=== PATIENT | female | born 1950 | race Caucasian/White ===

== ENCOUNTER 2016-10-03 11:23 | Emergency (ER) | payer MEDICAID, MEDICARE ==
[~2016-10-03 11:23] MED LIST: /ADVA50050; /ADVA50050 IN; /ALEN70TA; /ALEN70TA OR; /GLIM4TA; /QUET25TA; ADV250INH INH; ADV500INH INH; ADVAIR; ALEN10TA2; ALEN10TA2 OR; ANTI25TA; ATARAX OR; AVAN8TAB3; BLOOKIT20 AD; BYETTA; CALCCHW12; CINNAMON; COLA100C2; COLA100C5 PO; DRIS50002 PO; DRISDOL; DRISDOL PO; DULO30CA PO; EFFE37.527; FENO160T10 PO; FLON0.05; FLON1SPR; FLUTISP; GEMF600T; GLUC1000; GLUC1000 OR; GLUC1000 PO; HUMU70IN SC; INSULIN 70/30; INSULIN 70/30 SC; JOINT SUPPORT; LIDO5TD TD; LISI10TA4; LISI10TA4 OR; LISI40TAB PO; METF10004 PO; METO1TAB7 PO; MILKSUS OR; MIRALEX PO; MULTIVIT PO; NEUR100C OR; NOVOINJ4; NOVOLOG 70/30; OMEP20TA7; OMEP20TA7 OR; PAME50CA PO; PERCOCET PO; PRAV40TA OR; PRAV40TA2 PO; PRIL20CA; PROZ40CA; PROZ40CA OR; REST15CA; RIBO100C; SIMV40TA2; SIMV40TA2 PO; TRAZO50TA PO; VENL150C43 PO; VICO5TAB PO; ZOCO40TA
[2016-10-03] MEDS ORDERED: HUMU70IN SC ×2 (11:46)
[2016-10-03] MEDS ORDERED: MECLIZINE 25 MG TABLET PO ONE (12:00)
--- NOTE | 2016-10-03 12:01 | REP ---
Portable chest, 11:54 a.m.:, single AP view, patient sitting Comparisons 11/26/2014. The lung xiao are clear. The cardiac size is normal. The samantha, mediastinum, and bony thorax are unremarkable. Impression: Negative portable chest. There is no interval change Signed by Harry Helm MD 10/03/2016 11:52 A
[2016-10-03 12:13] LABS: BASO % 0.5 % (0.0-1.0); EOS # 0.1 K/mm3 (0.0-0.50); EOS % 2.2 % (0.0-3.0); LARGE UNSTAINED CELL # 0.1 K/mm3 (0.0-0.4); LARGE UNSTAINED CELL % 1.7 % (0.0-4.0); LYMPH # 1.9 K/mm3 (1.5-4.5); LYMPH % 29.2 % (24.0-44.0); MEAN CORPUSCULAR HEMOGLOBIN 30.1 pg (27.0-33.0); MEAN CORPUSCULAR HGB CONC 34.4 g/dl (32.0-36.5); MEAN CORPUSCULAR VOLUME 87.4 fl (80.0-96.0); MONO # 0.3 K/mm3 (0.0-0.8); MONO % 4.4 % (0.0-5.0); NEUTROPHILS # 3.7 K/mm3 (1.8-7.7); NEUTROPHILS % 62.1 % (36.0-66.0); PLATELET COUNT, AUTOMATED 248 k/mm3 (150-450); RED CELL DISTRIBUTION WIDTH 12.5 % (11.5-14.5)
[2016-10-03 12:21] LABS: INR 0.88
[2016-10-03 12:57] LABS: ALBUMIN 3.7 GM/DL (3.2-5.2); ALBUMIN/GLOBULIN RATIO 1.09 (1.00-1.93); ALKALINE PHOSPHATASE 105 U/L (45-117); ALT/SGPT 41 U/L (12-78); ANION GAP 10 MEQ/L (8-16); AST/SGOT 26 U/L (15-37); BILIRUBIN,DIRECT 0.1 MG/DL (0.0-0.2); BILIRUBIN,TOTAL 0.4 MG/DL (0.2-1.0); BLOOD UREA NITROGEN 17 MG/DL (7-18); CALCIUM LEVEL 9.1 MG/DL (8.8-10.2); CARBON DIOXIDE LEVEL 26 MEQ/L (21-32); CHLORIDE LEVEL 103 MEQ/L (98-107); CREATININE FOR GFR 1.05 MG/DL (0.55-1.02); GLUCOSE, FASTING 199 MG/DL (80-110); SODIUM LEVEL 139 MEQ/L (136-145); TOTAL PROTEIN 7.1 GM/DL (6.4-8.2)
--- NOTE | 2016-10-03 13:01 | REP ---
REASON FOR EXAM: Patient has comparison 04/07/2013. The ventricles and sulci are unchanged. There are no extra-axial fluid collections. There is no shift of the midline structures. Once again, a few scattered deep cerebral white matter hypodensities are noted status quo. Allowing for the differences in technical factors between the examinations these are probably unchanged. There is no evidence of an acute intracranial hemorrhagic or non-hemorrhagic event. The imaged paranasal sinuses and mastoid air cells are again seen to be clear. The skull is unchanged. IMPRESSION: Stable appearing chronic changes as described above suggesting deep white matter ischemic disease. This should be correlated clinically with appropriate followup. Signed by Hernesto Tomlinson DO 10/03/2016 01:22 P
[2016-10-03] MEDS ORDERED: MECL-68 PO ×2 (14:26→15:05)
[2016-10-03 14:51] VITALS: BP 120/58
--- NOTE | 2016-10-03 15:05 | ED PDOC ---
Post-Departure Follow-Up dr shafer faxed formal report of ct head for fu Osman Dwyer MD Oct 03, 2016 15:04
== END 2016-10-03 15:11 | disposition home or self-care (01) ==
LOC: M ED 11:23
DX: F41.9 Anxiety disorder, unspecified (principal); R42 Dizziness and giddiness; E11.9 Type 2 diabetes mellitus without complications; I10 Essential (primary) hypertension; E78.4 Other hyperlipidemia; Z87.891 Personal history of nicotine dependence

== ENCOUNTER 2017-02-23 08:43 | Day surgery (SDC) | payer MEDICARE ==
[~2017-02-23] VITALS: Ht 167.6 cm; Wt 94.3 kg
[~2017-02-23 08:43] MED LIST changes: +ADV100INH INH; +AMIT10TA PO; +CHLO50TA PO; +GLIP1TAB49 PO; +MECL-68 PO
[2017-02-23] MEDS ORDERED: NS 1,000 ML IV ONE (09:00)
[2017-02-23] MEDS ORDERED: PROPOFOL 200 MG/20 ML VIAL As Ordered ONE (09:56)
[2017-02-23] MEDS ORDERED: LIDOCAINE 2% INJ 100 MG/5 ML SDV (FOR ANES.) As Ordered ONE (09:56)
--- NOTE | 2017-02-23 11:26 | ROOR ---
Patient Name: Angelita Paz Procedure Date: 02/23/2017 10:53 AM Date of : 1950 Age: 66 Room: [facility] Gender: Female Note Status: Finalized Procedure: Colonoscopy Indications: High risk colon cancer surveillance: Personal history of colonic polyps, Last colonoscopy: October 2013 Providers: Shoaib MARTINEZ MD Referring MD: MARC BAUER MD Requesting Provider: Medicines: Monitored Anesthesia Care Complications: No immediate complications. Procedure: Pre-Anesthesia Assessment: - The heart rate, respiratory rate, oxygen saturations, blood pressure, adequacy of pulmonary ventilation, and response to care were monitored throughout the procedure. The Colonoscope was introduced through the anus and advanced to the cecum, identified by appendiceal orifice and ileocecal valve. The colonoscopy was performed without difficulty. The patient tolerated the procedure well. The quality of the bowel preparation was good. Findings: The perianal and digital rectal examinations were normal. Many small and large-mouthed diverticula were found in the sigmoid colon. There was narrowing of the colon in association with the diverticular opening. There was evidence of diverticular spasm. Two sessile polyps were found in the sigmoid colon. The polyps were diminutive in size. These polyps were removed with a cold snare. Resection and retrieval were complete. Internal hemorrhoids were found during retroflexion. The hemorrhoids were small. The exam was otherwise without abnormality on direct and retroflexion views. (Exam: Complete, Prep: Good or Excellent.) Impression: - (Exam: Complete, Prep: Good or Excellent.) - Moderate diverticulosis in the sigmoid colon. - Two diminutive polyps in the sigmoid colon, removed with a cold snare. Resected and retrieved. - Internal hemorrhoids. - The examination was otherwise normal on direct and retroflexion views. Recommendation: - Repeat colonoscopy in 5 years for surveillance. - Telephone endoscopist for pathology results in 2 weeks. Shoaib Martinez MD Shoaib MARTINEZ MD 02/23/2017 11:26:37 AM This report has been signed electronically. Number of Addenda: 0 Note Initiated On: 02/23/2017 10:53 AM Estimated Blood Loss: Estimated blood loss: none.
[2017-02-23 11:45] VITALS: BP 108/66
== END 2017-02-23 12:07 | disposition home or self-care (01) ==
LOC: M OPP 08:43
PROVIDERS: ATTEND Internal Medicine Gastroenterology
DX: Z12.11 Encounter for screening for malignant neoplasm of colon (principal); K57.30 Diverticulosis of large intestine without perforation or abscess without bleeding; K64.0 First degree hemorrhoids; Z86.010 Personal history of colon polyps; I10 Essential (primary) hypertension; E07.9 Disorder of thyroid, unspecified; K21.9 Gastro-esophageal reflux disease without esophagitis; M19.90 Unspecified osteoarthritis, unspecified site; F32.9 Major depressive disorder, single episode, unspecified; G47.30 Sleep apnea, unspecified; J44.9 Chronic obstructive pulmonary disease, unspecified; R33.9 Retention of urine, unspecified; Z78.0 Asymptomatic menopausal state; Z79.4 Long term (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; Z79.899 Other long term (current) drug therapy; Z88.8 Allergy status to other drugs, medicaments and biological substances; Z91.040 Latex allergy status; Z91.048 Other nonmedicinal substance allergy status; Z86.73 Personal history of transient ischemic attack (TIA), and cerebral infarction without residual deficits; Z80.0 Family history of malignant neoplasm of digestive organs

== ENCOUNTER → 2017-04-06 | Outpatient (CLI) | payer MEDICARE ==
[2017-04-06 08:37] LABS: ALBUMIN 4.1 GM/DL (3.2-5.2); ALBUMIN/GLOBULIN RATIO 1.32 (1.00-1.93); ALKALINE PHOSPHATASE 57 U/L (45-117); ALT/SGPT 35 U/L (12-78); ANION GAP 6 MEQ/L (8-16); AST/SGOT 21 U/L (7-37); BILIRUBIN,TOTAL 0.2 MG/DL (0.2-1.0); BLOOD UREA NITROGEN 37 MG/DL (7-18); CALCIUM LEVEL 9.1 MG/DL (8.8-10.2); CARBON DIOXIDE LEVEL 29 MEQ/L (21-32); CHLORIDE LEVEL 104 MEQ/L (98-107); CHOLESTEROL LEVEL 146 MG/DL (<200); CHOLESTEROL RISK RATIO 3.476 (<5); CREATININE FOR GFR 1.39 MG/DL (0.55-1.02); GLOMERULAR FILTRATION RATE 40.5 (>45); GLUCOSE, FASTING 205 MG/DL (70-100); HDL CHOLESTEROL 42 MG/DL (>40); LDL CHOLESTEROL 64.4 MG/DL (<100); NON-HDL-C 104 MG/DL; POTASSIUM SERUM 4.3 MEQ/L (3.5-5.1); SODIUM LEVEL 139 MEQ/L (136-145); TOTAL PROTEIN 7.2 GM/DL (6.4-8.2); TRIGLYCERIDES LEVEL 198 MG/DL (<150)
[2017-04-06 08:46] LABS: CREATININE, URINE 93.4 MG/DL; MALB URINE SIEMENS 25.5 MG/L; MAU/CREAT RATIO 27.3 MCG/MG (0.0-30.0)
[2017-04-06 10:10] LABS: ESTIMATED AVERAGE GLUCOSE 220 MG/DL (60-110); HEMOGLOBIN A1c 9.3 %
== END ==
LOC: M LAB 06:12
DX: E78.5 Hyperlipidemia, unspecified (principal); I10 Essential (primary) hypertension; J44.9 Chronic obstructive pulmonary disease, unspecified; Z79.899 Other long term (current) drug therapy
CPT/HCPCS: 80053

== ENCOUNTER → 2017-06-15 | Outpatient (CLI) | payer MEDICARE, MEDICAID ==
[2017-06-15 10:14] LABS: ALBUMIN 4.2 GM/DL (3.2-5.2); ALBUMIN/GLOBULIN RATIO 1.31 (1.00-1.93); ALKALINE PHOSPHATASE 51 U/L (45-117); ALT/SGPT 24 U/L (12-78); ANION GAP 7 MEQ/L (8-16); AST/SGOT 15 U/L (7-37); BILIRUBIN,TOTAL 0.3 MG/DL (0.2-1.0); BLOOD UREA NITROGEN 27 MG/DL (7-18); CALCIUM LEVEL 9.2 MG/DL (8.8-10.2); CARBON DIOXIDE LEVEL 27 MEQ/L (21-32); CHLORIDE LEVEL 107 MEQ/L (98-107); CHOLESTEROL LEVEL 127 MG/DL (<200); CHOLESTEROL RISK RATIO 2.442 (<5); CREATININE FOR GFR 1.41 MG/DL (0.55-1.30); GLOMERULAR FILTRATION RATE 39.8 (>45); GLUCOSE, FASTING 120 MG/DL (70-100); HDL CHOLESTEROL 52 MG/DL (>40); LDL CHOLESTEROL 59.4 MG/DL (<100); NON-HDL-C 75 MG/DL; POTASSIUM SERUM 4.4 MEQ/L (3.5-5.1); SODIUM LEVEL 141 MEQ/L (136-145); TOTAL PROTEIN 7.4 GM/DL (6.4-8.2); TRIGLYCERIDES LEVEL 78 MG/DL (<150)
[2017-06-15 11:03] LABS: ESTIMATED AVERAGE GLUCOSE 223 MG/DL (60-110); HEMOGLOBIN A1c 9.4 %
== END ==
LOC: M LAB 08:48
DX: E78.5 Hyperlipidemia, unspecified (principal); E11.9 Type 2 diabetes mellitus without complications
CPT/HCPCS: 80053

== ENCOUNTER → 2017-09-20 | Outpatient (CLI) | payer MEDICARE, MEDICAID | LOC: M SMT 15:10 | DX: R06.02 Shortness of breath (principal) | CPT/HCPCS: 71046 ==

== ENCOUNTER → 2017-09-28 | Outpatient (CLI) | payer MEDICARE, MEDICAID ==
[2017-09-28 09:41] LABS: ALBUMIN 4.1 GM/DL (3.2-5.2); ALBUMIN/GLOBULIN RATIO 1.37 (1.00-1.93); ALKALINE PHOSPHATASE 47 U/L (45-117); ALT/SGPT 32 U/L (12-78); ANION GAP 11 MEQ/L (8-16); AST/SGOT 23 U/L (7-37); BILIRUBIN,TOTAL 0.3 MG/DL (0.2-1.0); BLOOD UREA NITROGEN 29 MG/DL (7-18); CALCIUM LEVEL 9.3 MG/DL (8.8-10.2); CARBON DIOXIDE LEVEL 24 MEQ/L (21-32); CHLORIDE LEVEL 109 MEQ/L (98-107); CHOLESTEROL LEVEL 119 MG/DL (<200); CHOLESTEROL RISK RATIO 2.288 (<5); CREATININE FOR GFR 1.34 MG/DL (0.55-1.30); GLOMERULAR FILTRATION RATE 42.1 (>45); GLUCOSE, FASTING 75 MG/DL (70-100); HDL CHOLESTEROL 52 MG/DL (>40); LDL CHOLESTEROL 51.4 MG/DL (<100); NON-HDL-C 67 MG/DL; SODIUM LEVEL 144 MEQ/L (136-145); TOTAL PROTEIN 7.1 GM/DL (6.4-8.2); TRIGLYCERIDES LEVEL 78 MG/DL (<150)
[2017-09-28 09:45] LABS: ESTIMATED AVERAGE GLUCOSE 183 MG/DL (60-110)
== END ==
LOC: M LAB 08:42
DX: E78.5 Hyperlipidemia, unspecified (principal); E11.9 Type 2 diabetes mellitus without complications
CPT/HCPCS: 80053

== ENCOUNTER → 2017-10-31 | Outpatient (CLI) | payer MEDICARE, MEDICAID | LOC: M CARPUL 12:17 | DX: R06.02 Shortness of breath (principal) | CPT/HCPCS: 94060 ==

== ENCOUNTER → 2017-12-05 | Outpatient (CLI) | payer MEDICARE, MEDICAID ==
[~2017-12-05] MED LIST changes: -/ADVA50050; -/ADVA50050 IN; -/ALEN70TA; -/ALEN70TA OR; -/GLIM4TA; -/QUET25TA; -ADV100INH INH; -ADV250INH INH; -ADV500INH INH; -ADVAIR; -ALEN10TA2; -ALEN10TA2 OR; -AMIT10TA PO; -ANTI25TA; -ATARAX OR; -AVAN8TAB3; -BLOOKIT20 AD; -BYETTA; -CALCCHW12; -CHLO50TA PO; -CINNAMON; -COLA100C2; -COLA100C5 PO; -DRIS50002 PO; -DRISDOL; -DRISDOL PO; -DULO30CA PO; -EFFE37.527; -FENO160T10 PO; -FLON0.05; -FLON1SPR; -FLUTISP; -GEMF600T; -GLIP1TAB49 PO; -GLUC1000; -GLUC1000 OR; -GLUC1000 PO; -HUMU70IN SC; -INSULIN 70/30; -INSULIN 70/30 SC; -JOINT SUPPORT; -LIDO5TD TD; -LISI10TA4; -LISI10TA4 OR; -LISI40TAB PO; -MECL-68 PO; -METF10004 PO; +METHACHOLINE KIT (J7674) INH; -METO1TAB7 PO; -MILKSUS OR; -MIRALEX PO; -MULTIVIT PO; -NEUR100C OR; -NOVOINJ4; -NOVOLOG 70/30; -OMEP20TA7; -OMEP20TA7 OR; -PAME50CA PO; -PERCOCET PO; -PRAV40TA OR; -PRAV40TA2 PO; -PRIL20CA; -PROZ40CA; -PROZ40CA OR; -REST15CA; -RIBO100C; -SIMV40TA2; -SIMV40TA2 PO; -TRAZO50TA PO; -VENL150C43 PO; -VICO5TAB PO; -ZOCO40TA
== END ==
LOC: M CARPUL 07:28
DX: R06.02 Shortness of breath (principal)
CPT/HCPCS: J7674

== ENCOUNTER → 2018-02-20 | Outpatient (CLI) | payer MEDICARE, MEDICAID ==
[~2018-02-20] MED LIST changes: +/ADVA50050; +/ADVA50050 IN; +/ALEN70TA; +/ALEN70TA OR; +/GLIM4TA; +/QUET25TA; +ADV100INH INH; +ADV250INH INH; +ADV500INH INH; +ADVAIR; +ALEN10TA2; +ALEN10TA2 OR; +AMIT10TA PO; +ANTI25TA; +ATARAX OR; +AVAN8TAB3; +BLOOKIT21 AD; +BYETTA; +CALCCHW12; +CHLO50TA PO; +CINNAMON; +COLA100C2; +COLA100C5 PO; +DRIS50003 PO; +DRISDOL; +DRISDOL PO; +DULO30CA PO; +EFFE37.527; +FENO160T10 PO; +FLON0.05; +FLON1SPR; +FLUTISP; +GEMF600T; +GLIP1TAB49 PO; +GLUC1000; +GLUC1000 OR; +GLUC1000 PO; +HUMU70IN SC; +INSULIN 70/30; +INSULIN 70/30 SC; +JOINT SUPPORT; +LIDO5TD TD; +LISI10TA4; +LISI10TA4 OR; +LISI40TAB PO; +MECL-68 PO; +METF10004 PO; -METHACHOLINE KIT (J7674) INH; +METO1TAB7 PO; +MILKSUS OR; +MIRALEX PO; +MULTIVIT PO; +NEUR100C OR; +NOVOINJ4; +NOVOLOG 70/30; +OMEP20TA7; +OMEP20TA7 OR; +PAME50CA PO; +PERCOCET PO; +PRAV40TA OR; +PRAV40TA2 PO; +PRIL20CA; +PROZ40CA; +PROZ40CA OR; +REST15CA; +RIBO100C; +SIMV40TA2; +SIMV40TA2 PO; +TRAZO50TA PO; +VENL150C43 PO; +VICO5TAB PO; +ZOCO40TA
[2018-02-20 14:06] LABS: HEMATOCRIT 35.5 % (36.0-47.0); HEMOGLOBIN 11.7 g/dl (12.0-15.5); MEAN CORPUSCULAR HEMOGLOBIN 29.8 pg (27.0-33.0); MEAN CORPUSCULAR VOLUME 90.6 fl (80.0-96.0); PLATELET COUNT, AUTOMATED 306 10^3/uL (150-450); RED BLOOD COUNT 3.92 10^6/uL (4.00-5.40); WHITE BLOOD COUNT 8.9 10^3/uL (4.0-10.0)
[2018-02-20 14:32] LABS: ALBUMIN 3.9 GM/DL (3.2-5.2); ALT/SGPT 38 U/L (12-78); BILIRUBIN,TOTAL 0.2 MG/DL (0.2-1.0); BLOOD UREA NITROGEN 36 MG/DL (7-18); C REACTIVE PROTEIN QUANTITATIV < 0.30 MG/DL (0.00-0.30); CALCIUM LEVEL 9.1 MG/DL (8.8-10.2); CARBON DIOXIDE LEVEL 26 MEQ/L (21-32); CHLORIDE LEVEL 110 MEQ/L (98-107); CREATININE FOR GFR 1.58 MG/DL (0.55-1.30); GLOMERULAR FILTRATION RATE 34.8 (>45); GLUCOSE, FASTING 38 MG/DL (70-100); POTASSIUM SERUM 3.8 MEQ/L (3.5-5.1); RHEUMATOID FACTOR QUANT 15.3 IU/ML (<15.0); SODIUM LEVEL 143 MEQ/L (136-145); URIC ACID 6.2 MG/DL (2.6-6.0)
[2018-02-20 14:35] LABS: ERYTHROCYTE SEDIMENTATION RATE 17 mm/hr (0-30)
--- NOTE | 2018-02-20 14:55 | REP ---
BILATERAL HAND, EIGHT VIEWS: HISTORY: Arthralgia. RIGHT HAND: There is no acute fracture or dislocation. There is minimal narrowing of the intermediate and distal interphalangeal joint spaces of the 2nd through 5th digits. Osteophytes are present at the distal interphalangeal joints of the 2nd through 5th digits. IMPRESSION:Degenerative changes as described above. LEFT HAND: There is no acute fracture or dislocation. There is minimal narrowing of the intermediate and distal interphalangeal joint spaces of the 2nd through 5th digits. Osteophytes are present at the distal interphalangeal joints of the 2nd, 3rd and 5th digits. IMPRESSION:Degenerative change as described above. Electronically Signed by Herber Armando MD 02/20/2018 02:57 P
[2018-02-20 15:16] LABS: ATYPICAL LYMPH 1 % (0-5); BASOPHILS 2 % (0-4); EOSINOPHILS 2 % (0-5); LYMPHOCYTES 55 % (16-52); MONOCYTES 3 % (0-8); NEUTROPHILS 36 % (35-75)
[2018-02-20 15:19] LABS: PLATELET ESTIMATE NORMAL (NORMAL)
== END ==
LOC: M LAB 12:59
PROVIDERS: ATTEND Internal Medicine Rheumatology
DX: M19.041 Primary osteoarthritis, right hand (principal); M25.741 Osteophyte, right hand; M19.042 Primary osteoarthritis, left hand; M25.742 Osteophyte, left hand; R76.8 Other specified abnormal immunological findings in serum; M25.50 Pain in unspecified joint
CPT/HCPCS: 36415; 73130; 80053; 84550; 85025; 85652; 86140; 86200; 86431; G0463

== ENCOUNTER 2018-04-03 11:51 | Inpatient (IN) | payer MEDICARE, MEDICAID ==
[~2018-04-03] VITALS: Ht 167.6 cm; Wt 115.9 kg
[~2018-04-03 11:51] MED LIST changes: -GLIP1TAB49 PO; +GLIP5TAB20 PO
[2018-04-03] MEDS ORDERED: IPRATROPIUM 0.5MG/ALBUTEROL 2.5MG INH SOL UD 3ML (DUONEB)(J7620) NEB ONE (12:15)
[2018-04-03] MEDS ORDERED: ALBUTEROL SULFATE 2.5 MG/0.5 ML INH NEB SOLN INH ONE (12:15)
[2018-04-03 12:30] LABS: BASO # 0.1 10^3/uL (0.0-0.2); BASO % 0.7 % (0.0-1.0); EOS # 0.1 10^3/uL (0.0-0.50); EOS % 1.8 % (0.0-3.0); HEMATOCRIT 34.5 % (36.0-47.0); HEMOGLOBIN 11.3 g/dl (12.0-15.5); LYMPH # 2.9 10^3/uL (1.5-4.5); LYMPH % 38.1 % (24.0-44.0); MEAN CORPUSCULAR HEMOGLOBIN 28.8 pg (27.0-33.0); MEAN CORPUSCULAR HGB CONC 32.8 g/dl (32.0-36.5); MONO # 0.6 10^3/uL (0.0-0.8); MONO % 7.2 % (0.0-5.0); NEUTROPHILS % 51.8 % (36.0-66.0); PLATELET COUNT, AUTOMATED 262 10^3/uL (150-450); RED BLOOD COUNT 3.92 10^6/uL (4.00-5.40); WHITE BLOOD COUNT 7.6 10^3/uL (4.0-10.0)
--- NOTE | 2018-04-03 12:45 | REP ---
Chest one-view HISTORY: Cough Comparison: 09/20/2017 The lungs are clear. The heart is normal in size. The pulmonary vasculature is normal in appearance. Impression: No acute disease. Electronically Signed by Herber Armando MD 04/03/2018 12:37 P
[2018-04-03] MEDS ORDERED: GLIP10TA18 PO (12:47)
[2018-04-03 12:55] LABS: ALBUMIN 3.7 GM/DL (3.2-5.2); ALT/SGPT 75 U/L (12-78); BILIRUBIN,DIRECT 0.1 MG/DL (0.0-0.2); BILIRUBIN,TOTAL 0.4 MG/DL (0.2-1.0); BLOOD UREA NITROGEN 53 MG/DL (7-18); CALCIUM LEVEL 9.2 MG/DL (8.8-10.2); CARBON DIOXIDE LEVEL 22 MEQ/L (21-32); CHLORIDE LEVEL 105 MEQ/L (98-107); CPK CREATINE PHOSPHOKINASE 211 U/L (26-192); CREATININE FOR GFR 1.81 MG/DL (0.55-1.30); GLOMERULAR FILTRATION RATE 29.8 (>45); GLUCOSE, FASTING 225 MG/DL (70-100); MB/CK RELATIVE INDEX 1.47 (< OR =4); NT-PRO BNP 1648 PG/ML (<125); POTASSIUM SERUM 4.8 MEQ/L (3.5-5.1); SODIUM LEVEL 137 MEQ/L (136-145); THYROXINE (T4) 11.9 UG/DL (4.5-12.0); TOTAL PROTEIN 6.9 GM/DL (6.4-8.2); TROPONIN I < 0.02 NG/ML (< 0.10)
[2018-04-03] MEDS ORDERED: VENL75CA47 PO (13:45)
[2018-04-03] MEDS ORDERED: FLUTISP NARES (13:45)
[2018-04-03] MEDS ORDERED: DICL1GEL3 TOP (13:45)
[2018-04-03] MEDS ORDERED: MORPHINE 2 MG/ML 1ML SYRINGE (J2270) IV ONE (14:00)
[2018-04-03] MEDS ORDERED: diphenhydrAMINE INJ 50MG/ML VIAL (J1200) IV ONE (14:15)
[2018-04-03] MEDS ORDERED: METO1TAB7 PO (15:42)
[2018-04-03] MEDS ORDERED: DRIS50003 PO (15:42)
[2018-04-03] MEDS ORDERED: METF10004 PO (15:42)
[2018-04-03] MEDS ORDERED: TYLE500T78 PO (15:42)
[2018-04-03] MEDS ORDERED: LISI40TA PO (15:42)
[2018-04-03] MEDS ORDERED: VENLAFAXINE **XR** 75MG CAPSULE PO ONE (15:45)
[2018-04-03] MEDS ORDERED: ACETAMINOPHEN TAB 650MG DOSE (2X325MG) PO PRN (15:45)
[2018-04-03 17:18] VITALS: BP 148/60
[2018-04-03] MEDS: HumuLIN (NovoLIN)70/30 INSULIN INJ PER UNIT SC SCH (17:30)
[2018-04-03] MEDS ORDERED: SLF 3 ML SYR IV PRN (17:45)
[2018-04-03] MEDS ORDERED: DEXTROSE 50% 50 ML SYRINGE IV PRN (18:00)
[2018-04-03] MEDS ORDERED: FUROSEMIDE 20 MG/2 ML VIAL (J1940) IV SCH (18:00)
[2018-04-03] MEDS ORDERED: HEPARIN SOD (PORCINE) 5000 UNITS/ML VIAL IV PRN (18:00)
[2018-04-03] MEDS ORDERED: GLUCOSE 4 GM CHEW TABLET PO PRN (18:00)
[2018-04-03] MEDS ORDERED: HEPARIN SOD (PORCINE) 5000 UNITS/ML VIAL IV ONE (18:00)
[2018-04-03] MEDS ORDERED: GLUCAGON FOR INJ 1 MG VIAL (J1610) SC PRN (18:00)
[2018-04-03] MEDS: PERCOCET 5MG/325MG TAB PO PRN (18:39)
[2018-04-03] MEDS: HEPARIN DRIP 25,000 UNITS in APPROPRIATE DILUENT 1 EA IV SCH (18:41)
[2018-04-03 19:03] LABS: HEMATOCRIT 31.6 % (36.0-47.0); HEMOGLOBIN 10.5 g/dl (12.0-15.5); MEAN CORPUSCULAR HEMOGLOBIN 28.8 pg (27.0-33.0); MEAN CORPUSCULAR HGB CONC 33.2 g/dl (32.0-36.5); MEAN CORPUSCULAR VOLUME 86.8 fl (80.0-96.0); PLATELET COUNT, AUTOMATED 245 10^3/uL (150-450); RED BLOOD COUNT 3.64 10^6/uL (4.00-5.40); WHITE BLOOD COUNT 7.3 10^3/uL (4.0-10.0)
[2018-04-03 20:00] VITALS: BP 129/60
[2018-04-03 20:55] VITALS: BP 133/59
--- NOTE | 2018-04-03 20:58 | HPE ---
DATE OF ADMISSION: 04/03/2018 PRIMARY CARE PROVIDER: Dr. Joel Rodrigez ATTENDING PHYSICIAN: Dr. Miriam Noble CHIEF COMPLAINT: Shortness of breath and chest pain for 2 days. HISTORY OF PRESENT ILLNESS: The patient is a 67-year-old white female with several chronic medical conditions listed below, came to the hospital for above complaints. History is provided by herself but she is not a good historian. She stated in the last 2 days she has trouble breathing which is getting worse gradually, but she denies fever, no chills, no coughing, no runny nose, no sore throat, and also she stated she has some chest pain which is located in her left chest but no radiation. Any movement makes the pain worse or deep breathing makes the chest pain worse too. The worst pain is about 5/10 in severity. Due to worsening difficulty breathing, decided to come to the hospital for further evaluation. Her initial workup in the hospital was not significant. However, she was found to have bradycardia, her heart rate was around 40s, and also her EKG demonstrated she has junctional bradycardia but no acute ST-T wave change. mechanical commissioning engineer cloth hauler, Dr. Rawls, was contacted with emergency room (ER) attending, Dr. Mckeon, and Dr. Rawls recommended patient be admitted for observation and also meanwhile hold her beta silvia, so medicine service was called for admission. REVIEW OF SYSTEMS: Denies fever, no chills, no headache, blurred vision. Positive shortness of breath, but no coughing, no hematemesis. Positive pleuritic chest pain, but no abdominal pain, no diarrhea, no vomiting, and no tingling, numbness, weakness in arms or lower extremities. All other systems reviewed but negative. PAST MEDICAL HISTORY: 1. Type 2 diabetes. 2. Questionable asthma with chronic obstructive pulmonary disease (COPD) but she is not using oxygen at home. 3. Depression. 4. Essential hypertension 5. Dyslipidemia 6. Chronic low back pain. 7. Chronic kidney disease (CKD) stage III. 8. Morbid obesity. PAST SURGICAL HISTORY: 1. Hysterectomy. 2. Laminectomy times two. ALLERGIES: Allergic to IBUPROFEN, LATEX, QUINOLONES, TAPE. SOCIAL HISTORY: She has remote tobacco use but quit many years ago. No alcohol abuse. No illicit drug abuse. She lives with the family at home. FAMILY HISTORY: No family history of premature coronary artery disease. MEDICATIONS: - lisinopril 40 mg by mouth daily - metoprolol 50 mg by mouth daily - pravastatin 40 mg by mouth daily - venlafaxine XR 75 mg by mouth daily - vitamin D 50,000 units daily - insulin 70 units every morning and 50 units every evening PHYSICAL EXAMINATION: VITAL SIGNS: Temperature 95.9, heart rate 40s, blood pressure 120/58, oxygen saturation 93% on room air. GENERAL: She is awake, alert, oriented times three. She is in moderate stress. HEENT: Atraumatic. Pupils equal, round, reactive to light. No jaundice. Extraocular muscles intact. Ear, nose, throat: Normal. Mouth: Mucus a little bit dry. NECK: No jugular venous distention (JVD), no bruits. LUNGS: Clear, no wheezing, no crackles. HEART: S1, S2, regular, no murmur, bradycardic. She has severe tenderness in left chest wall when you palpate, but there is no local redness or swelling. ABDOMEN: Soft, bowel sounds positive, nontender. LOWER EXTREMITIES: +1 edema in bilateral lower extremities. NEUROLOGIC: Nonfocal. SKIN: No rash. PSYCHOLOGIC: No acute psychosis. DIAGNOSTIC AND LABORATORIES: Include the following: CBC and differential: WBC 7.6, hemoglobin and hematocrit 11.3/34.5, platelets 263. Sodium 137, potassium 4.8, chloride 105, bicarbonate 22, BUN 33, creatinine 1.8, glucose 225, troponin times one negative, BNP is up to 1648 and TSH within normal limits. Chest x-ray is reviewed. No acute changes. EKG demonstrates junctional bradycardia. IMPRESSION: 1. Junctional bradycardia. 2. Dyspnea. 3. Type 2 diabetes. 4. Hypertension. 5. Chronic kidney disease (CKD) stage III. 6. Morbid obesity. PLAN: Patient will be admitted to the progressive care unit (PCU) for close monitoring. Currently, the etiology for her dyspnea is not clear. Differential diagnoses including symptomatic bradycardia or mild congestive heart failure (CHF). Will check D-dimer. If D-dimer is elevated, may need to rule out pulmonary embolus (PE) which is unlikely, she is not tachycardic, she is not hypoxic. Also, we will schedule 2D echocardiogram to evaluate the heart structure. Meanwhile, will treat her with low dose IV Lasix and also will need to follow troponin to rule out myocardial infarction (HI) and will hold her metoprolol due to severe bradycardia and may need to consult cardiology if she is not improving. Addendum Her D-Dimer came back positive; will schedule V/Q scan since she has CKD stage 3; will start heparin gtt for possible PE. MTDD
[2018-04-03] MEDS ORDERED: ALPRAZolam 0.25 MG TAB PO ONE (21:00)
[2018-04-03] MEDS: HumaLOG INSULIN (NovoLOG) PER UNIT SC SCH (21:00)
[2018-04-03] MEDS: SLF 3 ML SYR IV SCH (21:43)
[2018-04-03 23:59] VITALS: BP 130/60
[2018-04-04 04:00] VITALS: BP 142/73
[2018-04-04] MEDS: SLF 3 ML SYR IV SCH ×3 (05:33→22:00)
[2018-04-04] MEDS ORDERED: ALBUTEROL SULFATE 2.5 MG/0.5 ML INH NEB SOLN NEB PRN (07:30)
[2018-04-04] MEDS: ALBUTEROL SULFATE 2.5 MG/0.5 ML INH NEB SOLN NEB SCH ×4 (07:31→20:27)
[2018-04-04 08:00] VITALS: BP 140/66
[2018-04-04] MEDS ORDERED: methylPREDNISolone INJ 125 MG/2 ML VIAL (J2930) IV ONE (08:00)
[2018-04-04 08:09] LABS: BASO % 0.7 % (0.0-1.0); EOS # 0.2 10^3/uL (0.0-0.50); EOS % 3.6 % (0.0-3.0); HEMATOCRIT 32.5 % (36.0-47.0); HEMOGLOBIN 10.6 g/dl (12.0-15.5); LYMPH # 1.8 10^3/uL (1.5-4.5); LYMPH % 31.3 % (24.0-44.0); MEAN CORPUSCULAR HGB CONC 32.6 g/dl (32.0-36.5); MEAN CORPUSCULAR VOLUME 88.8 fl (80.0-96.0); MONO # 0.4 10^3/uL (0.0-0.8); NEUTROPHILS # 3.4 10^3/uL (1.8-7.7); NEUTROPHILS % 57.1 % (36.0-66.0); PLATELET COUNT, AUTOMATED 226 10^3/uL (150-450); RED BLOOD COUNT 3.66 10^6/uL (4.00-5.40); WHITE BLOOD COUNT 5.9 10^3/uL (4.0-10.0)
[2018-04-04 08:34] LABS: BLOOD UREA NITROGEN 47 MG/DL (7-18); CALCIUM LEVEL 8.9 MG/DL (8.8-10.2); CARBON DIOXIDE LEVEL 25 MEQ/L (21-32); CHLORIDE LEVEL 105 MEQ/L (98-107); GLOMERULAR FILTRATION RATE 34.3 (>45); GLUCOSE, FASTING 186 MG/DL (70-100); POTASSIUM SERUM 3.9 MEQ/L (3.5-5.1); SODIUM LEVEL 138 MEQ/L (136-145); TROPONIN I < 0.02 NG/ML (< 0.10)
[2018-04-04] MEDS: HEPARIN DRIP 25,000 UNITS in APPROPRIATE DILUENT 1 EA IV SCH (08:50)
[2018-04-04] MEDS: CHLORTHALIDONE 25 MG TAB PO SCH (08:53)
[2018-04-04] MEDS: PRAVASTATIN 20 MG TAB PO SCH (08:53)
[2018-04-04] MEDS: HumuLIN (NovoLIN)70/30 INSULIN INJ PER UNIT SC SCH ×2 (08:53→17:49)
[2018-04-04] MEDS: FLUTICASONE PROP 0.05% NASAL SPRAY 16 GM (FLONASE) NARES SCH (08:53)
[2018-04-04] MEDS: HumaLOG INSULIN (NovoLOG) PER UNIT SC SCH ×4 (08:54→20:17)
[2018-04-04] MEDS ORDERED: LISINOPRIL 40 MG TAB PO SCH (09:00)
[2018-04-04] MEDS ORDERED: ENOXAPARIN 40 MG/0.4 ML SYRINGE (J1650) SC SCH (09:00)
[2018-04-04] MEDS ORDERED: CEPACOL LOZENGE PO ONE (09:30)
[2018-04-04] MEDS ORDERED: CEPACOL LOZENGE PO PRN (09:30)
--- NOTE | 2018-04-04 09:30 | IPNPDOC ---
Date Seen The patient was seen on 04/04/18. Progress Note SUBJECTIVE: Pt was seen and examined. She c/o dry mouth and sore throat. no dizziness, lightheadedness. after metoprolol was discontinued, no symptomatic bradycardia. still on iv heparin gtt for presumed PE, awaiting VQ scan. Denies fever, no chills, no headache, blurred vision. Positive shortness of breath, but no coughing, no hematemesis. Positive pleuritic chest pain, but no abdominal pain, no diarrhea, no vomiting, and no tingling, numbness, weakness in arms or lower extremities. All other systems reviewed but negative. PHYSICAL EXAMINATION: VITAL SIGNS: pls see below GENERAL: She is awake, alert, oriented times three. She is in moderate stress. HEENT: Atraumatic. Pupils equal, round, reactive to light. No jaundice. Extraocular muscles intact. Ear, nose, throat: Normal. Mouth: Mucus a little bit dry. NECK: No jugular venous distention (JVD), no bruits. LUNGS: Clear, no wheezing, no crackles. HEART: S1, S2, regular, no murmur, bradycardic. She has severe tenderness in left chest wall when you palpate, but there is no local redness or swelling. ABDOMEN: Soft, bowel sounds positive, nontender. LOWER EXTREMITIES: +1 edema in bilateral lower extremities. NEUROLOGIC: Nonfocal. SKIN: No rash. PSYCHOLOGIC: No acute psychosis. DIAGNOSTIC AND LABORATORIES: pls see below Chest x-ray is reviewed. No acute changes. EKG demonstrates junctional bradycardia. ASSESSMENT AND PLAN: The patient is a 67-year-old white female with several chronic medical conditions listed below, came to the hospital for management of above complaints. History is provided by herself but she is not a good historian. She stated in the last 2 days she has trouble breathing which is getting worse gradually, but she denies fever, no chills, no coughing, no runny nose, no sore throat, and also she stated she has some chest pain which is located in her left chest but no radiation. Any movement makes the pain worse or deep breathing makes the chest pain worse too. The worst pain is about 5/10 in severity. Due to worsening difficulty breathing, decided to come to the [facility] for further evaluation. Her initial workup in the hospital was not significant. However, she was found to have bradycardia, her heart rate was around 40s, and also her EKG demonstrated she has junctional bradycardia but no acute ST-T wave change. call center supervisor language pathologist, Dr. Rawls, was contacted with emergency room (ER) attending, Dr. Mckeon, and then Dr. Rawls recommended patient be admitted for observation and also meanwhile hold her beta silvia, so medicine service was called for admission. Junctional bradycardia patient remains on telemetry. tsh is wnl. pt denies lightheadedness or dizziness off of metoprolol with improvement in HR. Dr. Rawls recommended patient be admitted for observation Dyspnea on empiric heparin iv gtt for possible PE. awaiting vq scan. on nebs. s/p iv solumedrol due to wheezing. supplemental oxygen if o2 sat<88%. check 2decho. trial of diuresis. Type 2 diabetes. consistent carbs diet. insulin sliding scale with coverage. Hypertension. metoprolol discontinued. norvasc or direct vasodilators if needed. Chronic kidney disease (CKD) stage III. at baseline creatinine. avoid nephrotoxins, renally dose meds. Morbid obesity. complicating care dvt prophylaxis: on heparin iv gtt VS, I&O, 24H, Fishbone Vital Signs/I&O Vital Signs Date Time Temp Pulse Resp B/P (MAP) Pulse Ox O2 Delivery O2 Flow Rate FiO2 04/04/18 04:00 97.8 55 18 142/73 (96) 93 Room Air I&O- Last 24 Hours up to 6 AM 04/04/18 06:00 Intake Total 1064 ml Output Total 1600 ml Balance -536 ml Laboratory Data 24H LABS Laboratory Tests 2 04/03/18 12:15: D-Dimer, Quantitative 2753.33H 04/03/18 12:16: Immature Granulocyte % (Auto) 0.4, White Blood Count 7.6, Red Blood Count 3.92L, Hemoglobin 11.3L, Hematocrit 34.5L, Mean Corpuscular Volume 88.0, Mean Corpuscular Hemoglobin 28.8, Mean Corpuscular Hemoglobin Concent 32.8, Red Cell Distribution Width 12.9, Platelet Count 262, Neutrophils (%) (Auto) 51.8, Lymphocytes (%) (Auto) 38.1, Monocytes (%) (Auto) 7.2H, Eosinophils (%) (Auto) 1.8, Basophils (%) (Auto) 0.7, Neutrophils # (Auto) 4.0, Lymphocytes # (Auto) 2.9, Monocytes # (Auto) 0.6, Eosinophils # (Auto) 0.1, Basophils # (Auto) 0.1, Nucleated Red Blood Cells % (auto) 0.0, Anion Gap 10, Glomerular Filtration Rate 29.8L, Calcium Level 9.2, Aspartate Amino Transf (AST/SGOT) 69H, Alanine Aminotransferase (ALT/SGPT) 75, Alkaline Phosphatase 49, Total Bilirubin 0.4, Direct Bilirubin 0.1, Total Creatine Kinase 211H, Creatine Kinase MB 3.0, Creatine Kinase MB Relative Index 1.47, Troponin I < 0.02, NI-Dqa-T-Type Natriuretic Peptide 1648H, Total Protein 6.9, Albumin 3.7, Albumin/Globulin Ratio 1.16, Thyroid Stimulating Hormone (TSH) 2.780, Thyroxine (T4) 11.9 04/03/18 16:48: Troponin I < 0.02 04/03/18 17:40: Bedside Glucose (Misc Panel) 91 04/03/18 18:20: Nucleated Red Blood Cells % (auto) 0.0, Activated Partial Thromboplast Time 25.2L 04/03/18 21:22: Bedside Glucose (Misc Panel) 205H 04/04/18 00:43: Activated Partial Thromboplast Time 118.6H, Troponin I < 0.02 CBC/BMP Laboratory Tests 04/03/18 12:16 Red Blood Count 3.92 L, Mean Corpuscular Volume 88.0, Mean Corpuscular Hemoglobin 28.8, Mean Corpuscular Hemoglobin Concent 32.8, Red Cell Distribution Width 12.9, Neutrophils (%) (Auto) 51.8, Lymphocytes (%) (Auto) 38.1, Monocytes (%) (Auto) 7.2 H, Eosinophils (%) (Auto) 1.8, Basophils (%) (Auto) 0.7, Neutrophils # (Auto) 4.0, Lymphocytes # (Auto) 2.9, Monocytes # (Auto) 0.6, Eosinophils # (Auto) 0.1, Basophils # (Auto) 0.1 04/03/18 18:20 Red Blood Count 3.64 L, Mean Corpuscular Volume 86.8, Mean Corpuscular Hemoglobin 28.8, Mean Corpuscular Hemoglobin Concent 33.2, Red Cell Distribution Width 12.9 Microbiology Microbiology 04/03/18 Blood Culture, Received Pending 04/03/18 Blood Culture, Received Pending 04/03/18 Respiratory Virus Panel (PCR) (HUSAM) - Final, Complete BETSY MARTINEZ MD Apr 04, 2018 05:57
[2018-04-04 12:00] VITALS: BP 136/64
[2018-04-04] MEDS: SALIVA SUBSTITUTE(MOUTHKOTE) BTL MT SCH ×3 (12:46→20:16)
--- NOTE | 2018-04-04 13:24 | REP ---
V/Q SCAN: Following the intravenous administration of 5.5 mCi of technetium-99m tagged MAA and the inhalation of 1.0 mCi of technetium-99m DTPA aerosol multiple images of the lung xiao are obtained in various projections. There are a few bilateral subsegmental matching ventilation and perfusion defects. No definite areas of V/Q mismatch are seen. IMPRESSION: Findings compatible with a low probability of pulmonary embolism. Electronically Signed by Harry Mota MD 04/04/2018 05:20 P
[2018-04-04 16:00] VITALS: BP 128/58
[2018-04-04 20:00] VITALS: BP 154/62
[2018-04-04] MEDS: PERCOCET 5MG/325MG TAB PO PRN (21:51)
--- NOTE | 2018-04-04 21:59 | ECHO ---
DATE OF PROCEDURE: 04/04/2018 REFERRING PHYSICIAN: Kerry Mobley MD PATIENT LOCATION: Room 3211 REASON FOR ECHOCARDIOGRAM: Shortness of breath. 2D MEASUREMENTS: IVS: 1.1 cm LV: 5.7 cm LVPW: 1.1 cm LA: 3.6 cm Aorta: 3.3 cm DOPPLER MEASUREMENTS: Peak velocity across the aortic valve: 1.5 m/s Peak gradient across the aortic valve: 9 mmHg Mitral E: 1.3, Mitral A: 0.77, with a ratio of 1.8 2D COMMENTS: 1. Subjectively, the left ventricular size appeared to be normal. Normal left ventricular wall thickness. Left ventricular systolic function is normal, estimated at 60% to 65%. 2. Normal left atrium. Normal right atrium and right ventricle. 3. The atrial septum appeared to be normal without evidence of defect or shunt. 4. Normal aortic root. 5. Trace pericardial effusion noted, no evidence of cardiac tamponade. 6. Mildly calcified aortic valve, leaflet excursion appeared to be normal. Normal mitral valve and tricuspid valve. The pulmonic valve was not well visualized. The proximal pulmonary artery branches were not visualized. 7. The inferior vena cava was not visualized. DOPPLER: It detects trace tricuspid regurgitation and trace pulmonic regurgitation. The calculated pulmonary artery systolic pressure is most likely normal. Assessment of the left ventricular diastolic function appeared to be normal. IMPRESSION: 1. Normal global left ventricular systolic and diastolic function. 2. Trace tricuspid regurgitation and trace pulmonary regurgitation. 3. Trace pericardial effusion noted in limited views. 4. The study was technically limited due to poor acoustic window. [facility]
[2018-04-05] VITALS: BP 123/58
[2018-04-05] MEDS: ALBUTEROL SULFATE 2.5 MG/0.5 ML INH NEB SOLN NEB SCH ×6 (00:19→20:01)
[2018-04-05 04:00] VITALS: BP 139/72
[2018-04-05] MEDS: SLF 3 ML SYR IV SCH ×3 (06:00→20:36)
--- NOTE | 2018-04-05 07:25 | IPNPDOC ---
Date Seen The patient was seen on 04/05/18. Progress Note SUBJECTIVE: Pt was seen and examined. Chart and tele reviewed. Pt says, "it scared me. I don't have heart trouble." She c/o dry mouth and sore throat, but improved with cepacol prn. no dizziness, lightheadedness. after metoprolol was discontinued, no symptomatic bradycardia. s/p iv heparin gtt for presumed PE, but discontinued due to low probabilty PE on 04/04/18 VQ scan. Denies fever, no chills, no headache, blurred vision. Positive shortness of breath, improved after nebs and solumedrol no coughing, no hematemesis. Positive pleuritic chest pain, but no abdominal pain, no diarrhea, no vomiting, and no tingling, numbness, weakness in arms or lower extremities. PHYSICAL EXAMINATION: VITAL SIGNS: pls see below GENERAL: She is awake, alert, oriented times three. She is in moderate stress. HEENT: Atraumatic. Pupils equal, round, reactive to light. No jaundice. Extraocular muscles intact. Ear, nose, throat: Normal. Mouth: Mucus a little bit dry. NECK: No jugular venous distention (JVD), no bruits. LUNGS: Clear, no wheezing, no crackles. HEART: S1, S2, regular, no murmur, bradycardic. She has severe tenderness in left chest wall when you palpate, but there is no local redness or swelling. ABDOMEN: Soft, bowel sounds positive, nontender. LOWER EXTREMITIES: +1 edema in bilateral lower extremities. NEUROLOGIC: Nonfocal. SKIN: No rash. PSYCHOLOGIC: No acute psychosis. DIAGNOSTIC AND LABORATORIES: pls see below Chest x-ray is reviewed. No acute changes. EKG demonstrates junctional bradycardia. ASSESSMENT AND PLAN: The patient is a 67-year-old white female with several chronic medical conditions listed below, came to the hospital for management of above complaints. History is provided by herself but she is not a good historian. She stated in the last 2 days she has trouble breathing which is getting worse gradually, but she denies fever, no chills, no coughing, no runny nose, no sore throat, and also she stated she has some chest pain which is located in her left chest but no radiation. Any movement makes the pain worse or deep breathing makes the chest pain worse too. The worst pain is about 5/10 in severity. Due to worsening difficulty breathing, decided to come to the hospital for further evaluation. Her initial workup in the hospital was not significant. However, she was found to have bradycardia, her heart rate was around 40s, and also her EKG demonstrated she has junctional bradycardia but no acute ST-T wave change. scalloper head of data, Dr. Rawls, was contacted with emergency room (ER) attending, Dr. Mckeon, and then Dr. Rawls recommended patient be admitted for observation and also meanwhile hold her beta silvia, so medicine service was called for admission. Junctional bradycardia telemetry: improved bradycardia and asymptomatic. tsh is wnl. pt denies lightheadedness or dizziness off of metoprolol with improvement in HR. Dr. Rawls recommended patient be admitted for observation . Echo reviewed. Dyspnea s/p empiric heparin iv gtt for possible PE. low probability vq scan. on nebs. s/p iv solumedrol due to wheezing. supplemental oxygen if o2 sat<88%. reviewed 2decho. trial of diuresis. Type 2 diabetes. consistent carbs diet. insulin sliding scale with coverage. Hypertension. metoprolol discontinued. norvasc or direct vasodilators if needed. Chronic kidney disease (CKD) stage III. at baseline creatinine. avoid nephrotoxins, renally dose meds. Morbid obesity. complicating care dvt prophylaxis: s/p heparin iv gtt. on renally dosed lovenox disposition: stable for medsurg transfer. await PT clearance. VS[facility] Vital Signs Date Time Temp Pulse Resp B/P (MAP) Pulse Ox O2 Delivery O2 Flow Rate FiO2 04/05/18 04:00 96.3 54 18 139/72 (94) 95 NIPPV (BIPAP/CPAP) I&O- Last 24 Hours up to 6 AM 04/05/18 06:00 Intake Total 1396 ml Output Total 3900 ml Balance -2504 ml Laboratory Data 24H LABS Laboratory Tests 2 04/04/18 07:47: Immature Granulocyte % (Auto) 0.3, White Blood Count 5.9, Red Blood Count 3.66L, Hemoglobin 10.6L, Hematocrit 32.5L, Mean Corpuscular Volume 88.8, Mean Corpuscular Hemoglobin 29.0, Mean Corpuscular Hemoglobin Concent 32.6, Red Cell Distribution Width 12.9, Platelet Count 226, Neutrophils (%) (Auto) 57.1, Lymphocytes (%) (Auto) 31.3, Monocytes (%) (Auto) 7.0H, Eosinophils (%) (Auto) 3.6H, Basophils (%) (Auto) 0.7, Neutrophils # (Auto) 3.4, Lymphocytes # (Auto) 1.8, Monocytes # (Auto) 0.4, Eosinophils # (Auto) 0.2, Basophils # (Auto) 0.0, Nucleated Red Blood Cells % (auto) 0.0, Activated Partial Thromboplast Time 49.5H, Anion Gap 8, Glomerular Filtration Rate 34.3L, Blood Urea Nitrogen 47H, Creatinine 1.60H, Sodium Level 138, Potassium Level 3.9, Chloride Level 105, Carbon Dioxide Level 25, Calcium Level 8.9, Troponin I < 0.02 04/04/18 12:35: Bedside Glucose (Misc Panel) 315H 04/04/18 14:19: Activated Partial Thromboplast Time 50.9H 04/04/18 17:15: Bedside Glucose (Misc Panel) 368H 04/04/18 20:08: Bedside Glucose (Misc Panel) 407H 04/05/18 05:54: Bedside Glucose (Misc Panel) 237H CBC/BMP Laboratory Tests 04/04/18 07:47 Red Blood Count 3.66 L, Mean Corpuscular Volume 88.8, Mean Corpuscular Hemoglobin 29.0, Mean Corpuscular Hemoglobin Concent 32.6, Red Cell Distribution Width 12.9, Neutrophils (%) (Auto) 57.1, Lymphocytes (%) (Auto) 31.3, Monocytes (%) (Auto) 7.0 H, Eosinophils (%) (Auto) 3.6 H, Basophils (%) (Auto) 0.7, Neut rophils # (Auto) 3.4, Lymphocytes # (Auto) 1.8, Monocytes # (Auto) 0.4, Eosinophils # (Auto) 0.2, Basophils # (Auto) 0.0, Calcium Level 8.9 Microbiology Microbiology 04/03/18 Blood Culture - Preliminary, Resulted No growth after 24 hours . All specim... 04/03/18 Blood Culture - Preliminary, Resulted No growth after 24 hours . All specim... 04/04/18 Group A Streptococcus Screen (HUSAM) - Final, Resulted 04/04/18 Group A Streptococcus Screen (HUSAM), Resulted Pending 04/03/18 Respiratory Virus Panel (PCR) ([facility]US[facility]) - Final, Complete BETSY MARTINEZ MD Apr 05, 2018 06:38
[2018-04-05 08:00] VITALS: BP 131/65
[2018-04-05] MEDS: PRAVASTATIN 20 MG TAB PO SCH (09:19)
[2018-04-05] MEDS: CHLORTHALIDONE 25 MG TAB PO SCH (09:20)
[2018-04-05] MEDS: FLUTICASONE PROP 0.05% NASAL SPRAY 16 GM (FLONASE) NARES SCH (09:20)
[2018-04-05] MEDS: HumaLOG INSULIN (NovoLOG) PER UNIT SC SCH ×4 (09:21→20:36)
[2018-04-05] MEDS: SALIVA SUBSTITUTE(MOUTHKOTE) BTL MT SCH ×3 (09:21→20:35)
[2018-04-05] MEDS: ENOXAPARIN 30 MG/0.3 ML SYR (J1650) SC SCH (09:22)
[2018-04-05] MEDS: HumuLIN (NovoLIN)70/30 INSULIN INJ PER UNIT SC SCH ×2 (09:22→18:24)
[2018-04-05 12:00] VITALS: BP 128/70
[2018-04-05] MEDS: methylPREDNISolone INJ 125 MG/2 ML VIAL (J2930) IV SCH ×2 (14:38→20:34)
[2018-04-05 16:00] VITALS: BP 160/72
--- NOTE | 2018-04-05 16:56 | ECGEPIP ---
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
--- NOTE | 2018-04-05 19:11 | ECGEPIP ---
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
[2018-04-05 19:54] VITALS: BP 156/52
[2018-04-06] VITALS (7 sets, daily range): BP systolic 129–161; BP diastolic 52–85
[2018-04-06] MEDS: ALBUTEROL SULFATE 2.5 MG/0.5 ML INH NEB SOLN NEB SCH ×7 (00:02→23:41)
[2018-04-06] MEDS: methylPREDNISolone INJ 125 MG/2 ML VIAL (J2930) IV SCH ×2 (02:06→08:21)
[2018-04-06] MEDS: SLF 3 ML SYR IV SCH ×3 (06:00→21:01)
[2018-04-06 07:17] LABS: HEMOGLOBIN 11.4 g/dl (12.0-15.5); MEAN CORPUSCULAR HEMOGLOBIN 29.2 pg (27.0-33.0); MEAN CORPUSCULAR HGB CONC 32.6 g/dl (32.0-36.5); MEAN CORPUSCULAR VOLUME 89.5 fl (80.0-96.0); PLATELET COUNT, AUTOMATED 284 10^3/uL (150-450); RED BLOOD COUNT 3.91 10^6/uL (4.00-5.40); WHITE BLOOD COUNT 10.9 10^3/uL (4.0-10.0)
[2018-04-06] MEDS: HumuLIN (NovoLIN)70/30 INSULIN INJ PER UNIT SC SCH ×2 (07:30→18:53)
[2018-04-06 07:42] LABS: CALCIUM LEVEL 9.5 MG/DL (8.8-10.2); CREATININE FOR GFR 1.58 MG/DL (0.55-1.30); GLOMERULAR FILTRATION RATE 34.8 (>45); POTASSIUM SERUM 4.7 MEQ/L (3.5-5.1)
[2018-04-06] MEDS: CHLORTHALIDONE 25 MG TAB PO SCH (08:20)
[2018-04-06] MEDS: PRAVASTATIN 20 MG TAB PO SCH (08:20)
[2018-04-06] MEDS: ENOXAPARIN 30 MG/0.3 ML SYR (J1650) SC SCH (08:21)
[2018-04-06] MEDS: HumaLOG INSULIN (NovoLOG) PER UNIT SC SCH ×4 (08:21→21:01)
[2018-04-06] MEDS: SALIVA SUBSTITUTE(MOUTHKOTE) BTL MT SCH ×3 (08:22→21:00)
[2018-04-06] MEDS: FLUTICASONE PROP 0.05% NASAL SPRAY 16 GM (FLONASE) NARES SCH (08:22)
--- NOTE | 2018-04-06 08:50 | IPNPDOC ---
Date Seen The patient was seen on 04/06/18. Progress Note SUBJECTIVE: Pt was seen and examined. Chart and tele reviewed. after metoprolol was discontinued, no symptomatic bradycardia. Pt says, "it scared me. I don't have heart trouble." She c/o dry mouth and sore throat, but improved with cepacol prn. no dizziness, lightheadedness. s/p iv heparin gtt for presumed PE, but discontinued due to low probabilty PE on 04/04/18 VQ scan. Denies fever, no chills, no headache, blurred vision. Positive shortness of breath, improved after nebs and solumedrol no coughing, no hematemesis. Positive pleuritic chest pain, but no abdominal pain, no diarrhea, no vomiting, and no tingling, numbness, weakness in arms or lower extremities. still awaiting physical therapy clearance and clinical improvement with tapered steroids medically stable for [facility] floor. PHYSICAL EXAMINATION: VITAL SIGNS: pls see below GENERAL: supine with cpap. awakens quickly and answers questions appropriately no respiratory distress or use of accessory muscles. HEENT: Atraumatic. Pupils equal, round, reactive to light. No jaundice. Extraocular muscles intact. Ear, nose, throat: Normal. Mouth: Mucus a little bit dry. NECK: No jugular venous distention (JVD), no bruits. LUNGS:diminished. prolonged expiration with faint b/l wheezing. HEART: S1, S2, regular, no murmur, bradycardic. She has severe tenderness in left chest wall when you palpate, but there is no local redness or swelling. ABDOMEN: Soft, bowel sounds positive, nontender. LOWER EXTREMITIES: +1 edema in bilateral lower extremities. NEUROLOGIC: Nonfocal. SKIN: No rash. PSYCHOLOGIC: No acute psychosis. DIAGNOSTIC AND LABORATORIES: pls see below Chest x-ray is reviewed. No acute changes. EKG demonstrates junctional bradycardia. ASSESSMENT AND PLAN: The patient is a 67-year-old white female with several chronic medical conditions listed below, came to the hospital for management of above complaints. History is provided by herself but she is not a good historian. She stated in the last 2 days she has trouble breathing which is getting worse gradually, but she denies fever, no chills, no coughing, no runny nose, no sore throat, and also she stated she has some chest pain which is located in her left chest but no radiation. Any movement makes the pain worse or deep breathing makes the chest pain worse too. The worst pain is about 5/10 in severity. Due to worsening difficulty breathing, decided to come to the hospital for further evaluation. Her initial workup in the hospital was not significant. However, she was found to have bradycardia, her heart rate was around 40s, and also her EKG demonstrated she has junctional bradycardia but no acute ST-T wave change. outbound call center representative dice table operator, Dr. Rawls, was contacted with emergency room (ER) attending, Dr. Mckeon, and then Dr. Rawls recommended patient be admitted for observation and also meanwhile hold her beta silvia, so medicine service was called for admission. Junctional bradycardia telemetry: improved bradycardia and asymptomatic. tsh is wnl. pt denies lightheadedness or dizziness off of metoprolol with improvement in HR. Dr. Rawls recommended patient be admitted for observation . Echo reviewed. Asthma/?copd exacerbation initally treated with anticoagulation for PE. s/p empiric heparin iv gtt for possible PE. low probability vq scan. on nebs. s/p reviewed 2decho. trial of diuresis. Type 2 diabetes. consistent carbs diet. insulin sliding scale with coverage. Hypertension. metoprolol discontinued. norvasc or direct vasodilators if needed. Chronic kidney disease (CKD) stage III. at baseline creatinine. avoid nephrotoxins, renally dose meds. Morbid obesity. complicating care dvt prophylaxis: s/p heparin iv gtt. on renally dosed lovenox disposition: medsurg, await PT clearance. VS, I&O, 24H, Cheryl Vital Signs/I&O Vital Signs Date Time Temp Pulse Resp B/P (MAP) Pulse Ox O2 Delivery O2 Flow Rate FiO2 04/06/18 04:03 97.4 54 16 134/62 (86) 97 NIPPV (BIPAP/CPAP) I&O- Last 24 Hours up to 6 AM 04/06/18 05:59 Intake Total 2040 ml Output Total 3950 ml Balance -1910 ml Laboratory Data 24H LABS Laboratory Tests 2 04/05/18 11:44: Bedside Glucose (Misc Panel) 286H 04/05/18 17:18: Bedside Glucose (Misc Panel) 320H 04/05/18 20:00: Bedside Glucose (Misc Panel) 432H 04/06/18 06:57: Nucleated Red Blood Cells % (auto) 0.2H 04/06/18 06:58: Anion Gap 8, Glomerular Filtration Rate 34.8L, Blood Urea Nitrogen 43H, Creatinine 1.58H, Sodium Level 139, Potassium Level 4.7#, Chloride Level 103, Carbon Dioxide Level 28, Calcium Level 9.5 CBC/BMP Laboratory Tests 04/06/18 06:57 Red Blood Count 3.91 L, Mean Corpuscular Volume 89.5, Mean Corpuscular Hemoglobin 29.2, Mean Corpuscular Hemoglobin Concent 32.6, Red Cell Distribution Width 13.2 04/06/18 06:58 Calcium Level 9.5 Microbiology Microbiology 04/03/18 Blood Culture - Preliminary, Resulted No Growth after 48 hours. All Specime... 04/03/18 Blood Culture - Preliminary, Resulted 04/04/18 Group A Streptococcus Screen (HUSAM) - Final, Complete 04/04/18 Group A Streptococcus Screen (HUSAM) - Final, Complete 04/03/18 Respiratory Virus Panel (PCR) (HUSAM) - Final, Complete BETSY MARTINEZ MD Apr 06, 2018 08:50
--- NOTE | 2018-04-06 09:52 | ECGEPIP ---
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
[2018-04-06] MEDS ORDERED: VANCOMYCIN HCL 1,000 MG, VIAL MATE ADAPTER 1 EACH in D5W 250 ML IV ONE (12:00)
[2018-04-06] MEDS: VANCOMYCIN HCL 1,000 MG, VIAL MATE ADAPTER 1 EACH in D5W 250 ML IV SCH (16:56)
[2018-04-06 18:39] LABS: CPK CREATINE PHOSPHOKINASE 103 U/L (26-192); MB/CK RELATIVE INDEX 2.33 (< OR =4); TROPONIN I < 0.02 NG/ML (< 0.10)
--- NOTE | 2018-04-06 19:25 | REP ---
Clinical: Acute chest pain . Comparison: 09/20/2017, 04/03/2018 . Findings: The mediastinum and cardiac silhouette are stable and within normal limits for portable technique. The lung xiao are clear without acute consolidation, effusion, or pneumothorax. Skeletal structures are intact. Impression: No acute cardiopulmonary process appreciated. Electronically Signed by Hussein Barbosa MD 04/06/2018 07:17 P
[2018-04-06] MEDS ORDERED: methylPREDNISolone INJ 125 MG/2 ML VIAL (J2930) IV SCH (20:00)
[2018-04-07] MEDS: PERCOCET 5MG/325MG TAB PO PRN (03:30)
[2018-04-07] MEDS: VANCOMYCIN HCL 1,000 MG, VIAL MATE ADAPTER 1 EACH in D5W 250 ML IV SCH (03:56)
[2018-04-07] MEDS: ALBUTEROL SULFATE 2.5 MG/0.5 ML INH NEB SOLN NEB SCH ×6 (04:00→23:54)
[2018-04-07] MEDS: SLF 3 ML SYR IV SCH ×3 (05:21→21:09)
[2018-04-07 06:00] VITALS: BP 144/67
[2018-04-07 06:08] LABS: BASO % 0.1 % (0.0-1.0); EOS % 0.1 % (0.0-3.0); HEMATOCRIT 31.7 % (36.0-47.0); HEMOGLOBIN 10.5 g/dl (12.0-15.5); LYMPH # 1.2 10^3/uL (1.5-4.5); LYMPH % 9.8 % (24.0-44.0); MEAN CORPUSCULAR HEMOGLOBIN 29.1 pg (27.0-33.0); MEAN CORPUSCULAR HGB CONC 33.1 g/dl (32.0-36.5); MEAN CORPUSCULAR VOLUME 87.8 fl (80.0-96.0); MONO # 0.5 10^3/uL (0.0-0.8); MONO % 3.8 % (0.0-5.0); NEUTROPHILS # 10.5 10^3/uL (1.8-7.7); NEUTROPHILS % 85.3 % (36.0-66.0); PLATELET COUNT, AUTOMATED 291 10^3/uL (150-450); RED BLOOD COUNT 3.61 10^6/uL (4.00-5.40); WHITE BLOOD COUNT 12.3 10^3/uL (4.0-10.0)
[2018-04-07 06:23] LABS: BLOOD UREA NITROGEN 50 MG/DL (7-18); CALCIUM LEVEL 9.1 MG/DL (8.8-10.2); CARBON DIOXIDE LEVEL 24 MEQ/L (21-32); CHLORIDE LEVEL 100 MEQ/L (98-107); CREATININE FOR GFR 1.58 MG/DL (0.55-1.30); GLOMERULAR FILTRATION RATE 34.8 (>45); GLUCOSE, FASTING 359 MG/DL (70-100); POTASSIUM SERUM 4.1 MEQ/L (3.5-5.1); SODIUM LEVEL 134 MEQ/L (136-145)
[2018-04-07 06:52] LABS: ERYTHROCYTE SEDIMENTATION RATE 19 mm/hr (0-30)
[2018-04-07] MEDS ORDERED: predniSONE 20 MG TAB PO ONE (08:15)
[2018-04-07] MEDS ORDERED: LEVEMIR (INSULIN DETEMIR) 1 UNITS/0.01ML SC ONE (08:15)
[2018-04-07] MEDS: HumuLIN (NovoLIN)70/30 INSULIN INJ PER UNIT SC SCH ×2 (08:29→17:59)
[2018-04-07] MEDS: PRAVASTATIN 20 MG TAB PO SCH (08:30)
[2018-04-07] MEDS: HumaLOG INSULIN (NovoLOG) PER UNIT SC SCH ×4 (08:30→21:10)
[2018-04-07] MEDS: ENOXAPARIN 30 MG/0.3 ML SYR (J1650) SC SCH (08:31)
[2018-04-07] MEDS: CHLORTHALIDONE 25 MG TAB PO SCH (08:31)
[2018-04-07] MEDS: FLUTICASONE PROP 0.05% NASAL SPRAY 16 GM (FLONASE) NARES SCH (08:31)
[2018-04-07] MEDS: SALIVA SUBSTITUTE(MOUTHKOTE) BTL MT SCH ×3 (08:33→21:10)
[2018-04-07 09:00] LABS: CPK CREATINE PHOSPHOKINASE 80 U/L (26-192); MB/CK RELATIVE INDEX 3.12 (< OR =4); NT-PRO BNP 444 PG/ML (<125); TROPONIN I 0.02 NG/ML (< 0.10)
[2018-04-07 09:34] LABS: HEMOGLOBIN A1c 9.7 %
--- NOTE | 2018-04-07 09:59 | IPNPDOC ---
Date Seen The patient was seen on 04/07/18. Progress Note SUBJECTIVE: Pt c/o right sided chest pain lasting for 30minutes nonpleuritic without fever or chills. EKG unremarkable. card saleh negative. this morning, pt is tearful that she did not get assistance when she wanted to walk, but realizes that staffing is limited and physical therapy will most likely not be around today to see her. she otherwise denies any nausea, vomiting. she describes right sided pain as sharp no radiation without diaphoresis, palpitations, dizziness, or lightheadedness. no feeling of impending doom blood cx :gram positive cocci in clusters. s/p vancomycin 1 gram iv q12hrs 04/06/18, but final blood cx: contaminated. dc'ed vanco 04/07/18. PHYSICAL EXAMINATION: VITAL SIGNS: pls see below GENERAL: supine with cpap. awakens quickly and answers questions appropriately no respiratory distress or use of accessory muscles. HEENT: Atraumatic. Pupils equal, round, reactive to light. No jaundice. Extraocular muscles intact. Ear, nose, throat: Normal. Mouth: Mucus a little bit dry. NECK: No jugular venous distention (JVD), no bruits. LUNGS:diminished. prolonged expiration with faint b/l wheezing. HEART: S1, S2, regular, no murmur, bradycardic. She has severe tenderness in left chest wall when you palpate, but there is no local redness or swelling. ABDOMEN: Soft, bowel sounds positive, nontender. LOWER EXTREMITIES: +1 edema in bilateral lower extremities. NEUROLOGIC: Nonfocal. SKIN: No rash. PSYCHOLOGIC: No acute psychosis. DIAGNOSTIC AND LABORATORIES: pls see below Chest x-ray is reviewed. No acute changes. EKG demonstrates junctional bradycardia. ASSESSMENT AND PLAN: The patient is a 67-year-old white female with several chronic medical conditions listed below, came to the hospital for management of above complaints. History is provided by herself but she is not a good historian. She stated in the last 2 days she has trouble breathing which is getting worse gradually, but she denies fever, no chills, no coughing, no runny nose, no sore throat, and also she stated she has some chest pain which is located in her left chest but no radiation. Any movement makes the pain worse or deep breathing makes the chest pain worse too. The worst pain is about 5/10 in severity. Due to worsening difficulty breathing, decided to come to the hospital for further evaluation. Her initial workup in the hospital was not significant. However, she was found to have bradycardia, her heart rate was around 40s, and also her EKG demonstrated she has junctional bradycardia but no acute ST-T wave change. score caller building superintendent, Dr. Rawls, was contacted with emergency room (ER) attending, Dr. Mckeon, and then Dr. Rawls recommended patient be admitted for observation and also meanwhile hold her beta silvia, so medicine service was called for admission. Junctional bradycardia telemetry: improved bradycardia and asymptomatic. tsh is wnl. pt denies lightheadedness or dizziness off of metoprolol with improvement in HR. Dr. Rawls recommended patient be admitted for observation . Echo reviewed. Asthma/?copd exacerbation initally treated with anticoagulation for PE. s/p empiric heparin iv gtt for possible PE. low probability vq scan. on nebs. s/p reviewed 2decho. trial of diuresis. right sided chest pain, nonpleuritic noncardiac as ekg and card saleh were negative on 04/06/18 ct chest without contrast 04/07/18 vq scan low probability PE liver profile to rule out biliary colic. contamined blood cx s/p vancomycin 04/06/18 discontinued 04/07/18 Type 2 diabetes. consistent carbs diet. insulin sliding scale with coverage. Hypertension. metoprolol discontinued. norvasc or direct vasodilators if needed. Chronic kidney disease (CKD) stage III. at baseline creatinine. avoid nephrotoxins, renally dose meds. Morbid obesity. complicating care dvt prophylaxis: s/p heparin iv gtt. on renally dosed lovenox disposition: await PT clearance. VS, I&O, 24H, Fishbone Vital Signs/I&O Vital Signs Date Time Temp Pulse Resp B/P (MAP) Pulse Ox O2 Delivery O2 Flow Rate FiO2 04/07/18 06:00 98.3 68 18 144/67 (92) 93 Room Air I&O- Last 24 Hours up to 6 AM 04/07/18 06:00 Intake Total 360 ml Output Total 400 ml Balance -40 ml Laboratory Data 24H LABS Laboratory Tests 2 04/06/18 11:15: C-Reactive Protein, Quantitative 0.70H 04/06/18 11:42: Bedside Glucose (Misc Panel) 409H 04/06/18 18:00: Total Creatine Kinase 103, Creatine Kinase MB 2.0, Creatine Kinase MB Relative Index 2.33, Troponin I < 0.02 04/06/18 18:10: Bedside Glucose (Misc Panel) 377H 04/06/18 20:46: Bedside Glucose (Misc Panel) 349H 04/07/18 05:28: Immature Granulocyte % (Auto) 0.9, White Blood Count 12.3H, Red Blood Count 3.61L, Hemoglobin 10.5L, Hematocrit 31.7L, Mean Corpuscular Volume 87.8, Mean Corpuscular Hemoglobin 29.1, Mean Corpuscular Hemoglobin Concent 33.1, Red Cell Distribution Width 13.5, Platelet Count 291, Neutrophils (%) (Auto) 85.3H, Lymphocytes (%) (Auto) 9.8L, Monocytes (%) (Auto) 3.8, Eosinophils (%) (Auto) 0.1, Basophils (%) (Auto) 0.1, Neutrophils # (Auto) 10.5H, Lymphocytes # (Auto) 1.2L, Monocytes # (Auto) 0.5, Eosinophils # (Auto) 0.0, Basophils # (Auto) 0.0, Nucleated Red Blood Cells % (auto) 0.0, Erythrocyte Sedimentation Rate 19, Anion Gap 10, Glomerular Filtration Rate 34.8L, Blood Urea Nitrogen 50H, Creatinine 1.58H, Sodium Level 134L, Potassium Level 4.1, Chloride Level 100, Carbon Dioxide Level 24, Calcium Level 9.1, C-Reactive Protein, Quantitative 0.50H CBC/BMP Laboratory Tests 04/07/18 05:28 Red Blood Count 3.61 L, Mean Corpuscular Volume 87.8, Mean Corpuscular Hemoglobin 29.1, Mean Corpuscular Hemoglobin Concent 33.1, Red Cell Distribution Width 13.5, Neutrophils (%) (Auto) 85.3 H, Lymphocytes (%) (Auto) 9.8 L, Monocytes (%) (Auto) 3.8, Eosinophils (%) (Auto) 0.1, Basophils (%) (Auto) 0.1, Neutrophils # (Auto) 10.5 H, Lymphocytes # (Auto) 1.2 L, Monocytes # (Auto) 0.5, Eosinophils # (Auto) 0.0, Basophils # (Auto) 0.0, Calcium Level 9.1 Microbiology Microbiology 04/06/18 Blood Culture, Received Pending 04/06/18 Blood Culture, Received Pending 04/03/18 Blood Culture - Preliminary, Resulted No Growth after 72 hours. All specime... 04/03/18 Blood Culture - Final, Complete Micrococcus Luteus 04/04/18 Group A Streptococcus Screen (HUSAM) - Final, Complete 04/04/18 Group A Streptococcus Screen (HUSAM) - Final, Complete 04/03/18 Respiratory Virus Panel (PCR) (HUSAM) - Final, Complete BETSY MARTINEZ MD Apr 07, 2018 08:23
[2018-04-07 10:21] LABS: ALBUMIN 3.7 GM/DL (3.2-5.2); ALT/SGPT 30 U/L (12-78); AMYLASE 24 U/L (25-115); BILIRUBIN,DIRECT < 0.1 MG/DL (0.0-0.2); BILIRUBIN,TOTAL 0.3 MG/DL (0.2-1.0); LIPASE 62 U/L (73-393)
--- NOTE | 2018-04-07 10:44 | REP ---
Clinical: Chest pain and shortness of breath. Technique: Axial noncontrast images from the thoracic inlet to the upper abdomen with coronal and sagittal re-formations. Findings: The bilateral lung xiao are well-aerated, symmetric, and clear. No consolidation, pleural effusion, or pneumothorax. No significant atelectasis dependent changes. Tracheobronchial tree is patent. No obvious adenopathy. The mediastinum demonstrates mild atherosclerotic changes of the thoracic aorta and coronary arteries without aortic aneurysm or cardiomegaly. No pericardial effusion. Surrounding musculoskeletal structures are intact. Impression: No acute mediastinal or pleuroparenchymal process appreciated. Electronically Signed by Hussein Barbosa MD 04/07/2018 10:35 A
[2018-04-07 14:00] VITALS: BP 158/70
--- NOTE | 2018-04-07 15:34 | ECGEPIP ---
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
[2018-04-07 22:00] VITALS: BP 159/70
[2018-04-08] VITALS (7 sets, daily range): BP systolic 134–157; BP diastolic 64–76
[2018-04-08] MEDS: ALBUTEROL SULFATE 2.5 MG/0.5 ML INH NEB SOLN NEB SCH ×5 (04:00→19:52)
[2018-04-08] MEDS: SLF 3 ML SYR IV SCH ×3 (05:16→20:49)
[2018-04-08 06:22] LABS: BASO % 0.1 % (0.0-1.0); EOS % 0.2 % (0.0-3.0); HEMATOCRIT 35.3 % (36.0-47.0); HEMOGLOBIN 11.3 g/dl (12.0-15.5); LYMPH # 3.3 10^3/uL (1.5-4.5); LYMPH % 27.3 % (24.0-44.0); MEAN CORPUSCULAR HEMOGLOBIN 28.7 pg (27.0-33.0); MEAN CORPUSCULAR VOLUME 89.6 fl (80.0-96.0); MONO # 0.9 10^3/uL (0.0-0.8); MONO % 7.4 % (0.0-5.0); NEUTROPHILS # 7.8 10^3/uL (1.8-7.7); NEUTROPHILS % 64.2 % (36.0-66.0); PLATELET COUNT, AUTOMATED 299 10^3/uL (150-450); RED BLOOD COUNT 3.94 10^6/uL (4.00-5.40); WHITE BLOOD COUNT 12.2 10^3/uL (4.0-10.0)
[2018-04-08 06:37] LABS: BLOOD UREA NITROGEN 52 MG/DL (7-18); C REACTIVE PROTEIN QUANTITATIV < 0.30 MG/DL (0.00-0.30); CALCIUM LEVEL 9.2 MG/DL (8.8-10.2); CARBON DIOXIDE LEVEL 27 MEQ/L (21-32); CHLORIDE LEVEL 103 MEQ/L (98-107); CREATININE FOR GFR 1.55 MG/DL (0.55-1.30); GLOMERULAR FILTRATION RATE 35.6 (>45); GLUCOSE, FASTING 210 MG/DL (70-100); POTASSIUM SERUM 3.9 MEQ/L (3.5-5.1); SODIUM LEVEL 137 MEQ/L (136-145)
[2018-04-08] MEDS ORDERED: LEVEMIR (INSULIN DETEMIR) 1 UNITS/0.01ML SC ONE (07:00)
[2018-04-08 07:21] LABS: ERYTHROCYTE SEDIMENTATION RATE 12 mm/hr (0-30)
[2018-04-08] MEDS: PRAVASTATIN 20 MG TAB PO SCH (07:54)
[2018-04-08] MEDS: CHLORTHALIDONE 25 MG TAB PO SCH (07:54)
[2018-04-08] MEDS: ENOXAPARIN 30 MG/0.3 ML SYR (J1650) SC SCH (07:55)
[2018-04-08] MEDS: HumaLOG INSULIN (NovoLOG) PER UNIT SC SCH ×4 (07:56→20:50)
[2018-04-08] MEDS: SALIVA SUBSTITUTE(MOUTHKOTE) BTL MT SCH ×3 (07:57→20:50)
[2018-04-08] MEDS: FLUTICASONE PROP 0.05% NASAL SPRAY 16 GM (FLONASE) NARES SCH (07:57)
[2018-04-08] MEDS ORDERED: predniSONE 20 MG TAB PO SCH (09:00)
[2018-04-08] MEDS: HumuLIN (NovoLIN)70/30 INSULIN INJ PER UNIT SC SCH ×2 (10:48→17:05)
[2018-04-08] MEDS ORDERED: FLEET ENEMA PR PRN (11:15)
[2018-04-08] MEDS: SENNA 8.6 MG TAB (SENOKOT) PO SCH ×2 (12:35→20:50)
--- NOTE | 2018-04-08 15:59 | IPNPDOC ---
Date Seen The patient was seen on 04/08/18. Progress Note SUBJECTIVE: Pt c/o still c/o occasional right sided chest pain nonpleuritic without fever or chills. EKG unremarkable. card saleh negative. she otherwise denies any nausea, vomiting. she describes right sided pain as sharp no radiation without diaphoresis, palpitations, dizziness, or lightheadedness. no feeling of impending doom blood cx :gram positive cocci in clusters. s/p vancomycin 1 gram iv q12hrs 04/06/18, but final blood cx: contaminated. dc'ed vanco 04/07/18. CT chest: no acute findings. vq scan low probabilty PE. Glucose elevated from solumedrol,but A1c 9.7. Pt says she refuses to see Teacher Emotionally Impaired Dr. Biswas and wants a new pcp at hospital discharge. She still c/o generalized weakness. PHYSICAL EXAMINATION: VITAL SIGNS: pls see below GENERAL: no respiratory distress. answers questions appropiately, but tearful about not having help to ambulate. HEENT: Atraumatic. Pupils equal, round, reactive to light. No jaundice. Extraocular muscles intact. Ear, nose, throat: Normal. Mouth: Mucus a little bit dry. NECK: No jugular venous distention (JVD), no bruits. LUNGS:diminished. prolonged expiration with faint b/l wheezing. HEART: S1, S2, regular, no murmur, bradycardic. She has severe tenderness in left chest wall when you palpate, but there is no local redness or swelling. ABDOMEN: Soft, bowel sounds positive, nontender. LOWER EXTREMITIES: +1 edema in bilateral lower extremities. NEUROLOGIC: Nonfocal. SKIN: No rash. PSYCHOLOGIC: No acute psychosis. DIAGNOSTIC AND LABORATORIES: pls see below Chest x-ray is reviewed. No acute changes. EKG demonstrates junctional bradycardia. Clinical: Chest pain and shortness of breath. Technique: Axial noncontrast images from the thoracic inlet to the upper abdomen with coronal and sagittal re-formations. Findings: The bilateral lung xiao are well-aerated, symmetric, and clear. No consolidation, pleural effusion, or pneumothorax. No significant atelectasis dependent changes. Tracheobronchial tree is patent. No obvious adenopathy. The mediastinum demonstrates mild atherosclerotic changes of the thoracic aorta and coronary arteries without aortic aneurysm or cardiomegaly. No pericardial effusion. Surrounding musculoskeletal structures are intact. Impression: No acute mediastinal or pleuroparenchymal process appreciated. Electronically Signed by Hussein Barbosa MD 04/07/2018 10:35 A ASSESSMENT AND PLAN: The patient is a 67-year-old white female with several chronic medical conditions listed below, came to the hospital for management of above complaints. History is provided by herself but she is not a good historian. She stated in the last 2 days she has trouble breathing which is getting worse gradually, but she denies fever, no chills, no coughing, no runny nose, no sore throat, and also she stated she has some chest pain which is located in her left chest but no radiation. Any movement makes the pain worse or deep breathing makes the chest pain worse too. The worst pain is about 5/10 in severity. Due to worsening difficulty breathing, decided to come to the [facility] for further evaluation. Her initial workup in the hospital was not significant. However, she was found to have bradycardia, her heart rate was around 40s, and also her EKG demonstrated she has junctional bradycardia but no acute ST-T wave change. house calls nurse mission commander, Dr. Rawls, was contacted with emergency room (ER) attending, Dr. Mckeon, and then Dr. Rawls recommended patient be admitted for observation and also meanwhile hold her beta silvia, so medicine service was called for admission. Junctional bradycardia telemetry: improved bradycardia and asymptomatic. tsh is wnl. pt denies lightheadedness or dizziness off of metoprolol with improvement in HR. Dr. Rawls recommended patient be admitted for observation . Echo reviewed and unremarkable. Asthma/?copd exacerbation initally treated with anticoagulation for PE. s/p empiric heparin iv gtt for possible PE. low probability vq scan. on nebs. s/p iv solumedrol on po prednisone tapered dose with steroid induced hyperglycemia in the setting of unctorolled DM2 A1c 9.7. reviewed 2decho. trial of diuresis. right sided chest pain, nonpleuritic noncardiac as ekg and card saleh were negative on 04/06/18 ct chest without contrast 04/07/18: unremarkable vq scan low probability PE liver profile to rule out biliary colic was negative. most likely musculoskeletal and has resolved. contamined blood cx s/p vancomycin 04/06/18 discontinued 04/07/18 Type 2 diabetes., uncontrolled with A1c 9.7/ Steroid-induced hyperglycemia consistent carbs diet. insulin sliding scale with coverage. increase insulin for better glycemic control. Steroid-induced leukocytosis off of solumedrol. on tapered dose of prednisone. blood cx contaminant. episode of hypothermia 04/07/18, will check lactic acid and monitor for symptoms. Hypertension. metoprolol discontinued. norvasc or direct vasodilators if needed. Chronic kidney disease (CKD) stage III. at baseline creatinine. avoid nephrotoxins, renally dose meds. Morbid obesity. complicating care dvt prophylaxis: s/p heparin iv gtt. on renally dosed lovenox VS, I&O, 24H, Fishbone Vital Signs/I&O Vital Signs Date Time Temp Pulse Resp B/P (MAP) Pulse Ox O2 Delivery O2 Flow Rate FiO2 04/08/18 10:00 97.1 54 20 134/64 (87) 98 Room Air I&O- Last 24 Hours up to 6 AM 04/08/18 06:00 Intake Total 1470 ml Output Total 4750 ml Balance -3280 ml Laboratory Data 24H LABS Laboratory Tests 2 04/07/18 16:57: Bedside Glucose (Misc Panel) 315H 04/07/18 20:44: Bedside Glucose (Misc Panel) 350H 04/08/18 05:24: Immature Granulocyte % (Auto) 0.8, White Blood Count 12.2H, Red Blood Count 3.9 4L, Hemoglobin 11.3L, Hematocrit 35.3L, Mean Corpuscular Volume 89.6, Mean Corpuscular Hemoglobin 28.7, Mean Corpuscular Hemoglobin Concent 32.0, Red Cell Distribution Width 13.3, Platelet Count 299, Neutrophils (%) (Auto) 64.2, Lymphocytes (%) (Auto) 27.3, Monocytes (%) (Auto) 7.4H, Eosinophils (%) (Auto) 0.2, Basophils (%) (Auto) 0.1, Neutrophils # (Auto) 7.8H, Lymphocytes # (Auto) 3.3, Monocytes # (Auto) 0.9H, Eosinophils # (Auto) 0.0, Basophils # (Auto) 0.0, Nucleated Red Blood Cells % (auto) 0.0, Erythrocyte Sedimentation Rate 12, Anion Gap 7L, Glomerular Filtration Rate 35.6L, Blood Urea Nitrogen 52H, Creatinine 1.55H, Sodium Level 137, Potassium Level 3.9, Chloride Level 103, Carbon Dioxide Level 27, Calcium Level 9.2, C-Reactive Protein, Quantitative < 0.30 04/08/18 11:40: Bedside Glucose (Misc Panel) 197H CBC/BMP Laboratory Tests 04/08/18 05:24 Red Blood Count 3.94 L, Mean Corpuscular Volume 89.6, Mean Corpuscular Hemoglobin 28.7, Mean Corpuscular Hemoglobin Concent 32.0, Red Cell Distribution Width 13.3, Neutrophils (%) (Auto) 64.2, Lymphocytes (%) (Auto) 27.3, Monocytes (%) (Auto) 7.4 H, Eosinophils (%) (Auto) 0.2, Basophils (%) (Auto) 0.1, Neutrophils # (Auto) 7.8 H, Lymphocytes # (Auto) 3.3, Monocytes # (Auto) 0.9 H, Eosinophils # (Auto) 0.0, Basophils # (Auto) 0.0, Calcium Level 9.2 Microbiology Microbiology 04/06/18 Blood Culture - Preliminary, Resulted No Growth after 48 hours. All Specime... 04/06/18 Blood Culture - Preliminary, Resulted No Growth after 48 hours. All Specime... 04/03/18 Blood Culture - Final, Complete NO GROWTH AFTER 5 DAYS 04/03/18 Blood Culture - Final, Complete Micrococcus Luteus 04/04/18 Group A Streptococcus Screen (HUSAM) - Final, Complete 04/04/18 Group A Streptococcus Screen (HUSAM) - Final, Complete 04/03/18 Respiratory Virus Panel (PCR) (HUSAM) - Final, Complete BETSY MARTINEZ MD Apr 08, 2018 15:59
[2018-04-09] MEDS: ALBUTEROL SULFATE 2.5 MG/0.5 ML INH NEB SOLN NEB SCH ×4 (03:58→11:07)
[2018-04-09 06:00] VITALS: BP 157/78
[2018-04-09] MEDS: SLF 3 ML SYR IV SCH ×2 (06:00→14:19)
[2018-04-09 06:10] LABS: BASO % 0.1 % (0.0-1.0); EOS # 0.1 10^3/uL (0.0-0.50); EOS % 0.9 % (0.0-3.0); HEMATOCRIT 36.5 % (36.0-47.0); HEMOGLOBIN 11.7 g/dl (12.0-15.5); LYMPH # 3.5 10^3/uL (1.5-4.5); LYMPH % 33.1 % (24.0-44.0); MEAN CORPUSCULAR HEMOGLOBIN 28.5 pg (27.0-33.0); MEAN CORPUSCULAR HGB CONC 32.1 g/dl (32.0-36.5); MONO # 0.8 10^3/uL (0.0-0.8); MONO % 7.9 % (0.0-5.0); NEUTROPHILS # 6.1 10^3/uL (1.8-7.7); NEUTROPHILS % 57.3 % (36.0-66.0); PLATELET COUNT, AUTOMATED 278 10^3/uL (150-450); WHITE BLOOD COUNT 10.7 10^3/uL (4.0-10.0)
[2018-04-09 06:34] LABS: BLOOD UREA NITROGEN 45 MG/DL (7-18); C REACTIVE PROTEIN QUANTITATIV < 0.30 MG/DL (0.00-0.30); CALCIUM LEVEL 9.3 MG/DL (8.8-10.2); CARBON DIOXIDE LEVEL 29 MEQ/L (21-32); CHLORIDE LEVEL 102 MEQ/L (98-107); CREATININE FOR GFR 1.39 MG/DL (0.55-1.30); GLOMERULAR FILTRATION RATE 40.4 (>45); GLUCOSE, FASTING 135 MG/DL (70-100); POTASSIUM SERUM 3.6 MEQ/L (3.5-5.1); SODIUM LEVEL 139 MEQ/L (136-145)
[2018-04-09 06:45] LABS: ERYTHROCYTE SEDIMENTATION RATE 14 mm/hr (0-30)
[2018-04-09 08:00] VITALS: BP 159/69
[2018-04-09] MEDS ORDERED: predniSONE 20 MG TAB PO SCH (09:00)
[2018-04-09] MEDS ORDERED: VITAMIN D 50,000 UNITS CAPSULE (ERGOCALCIFEROL 1.25MG) PO SCH (09:00)
[2018-04-09] MEDS ORDERED: MAGNESIUM CITRATE 300 ML BTL PO ONE (09:00)
[2018-04-09] MEDS: HumuLIN (NovoLIN)70/30 INSULIN INJ PER UNIT SC SCH (09:02)
[2018-04-09] MEDS: HumaLOG INSULIN (NovoLOG) PER UNIT SC SCH ×2 (09:03→12:43)
[2018-04-09] MEDS: SENNA 8.6 MG TAB (SENOKOT) PO SCH (09:04)
[2018-04-09] MEDS: CHLORTHALIDONE 25 MG TAB PO SCH (09:04)
[2018-04-09] MEDS: PRAVASTATIN 20 MG TAB PO SCH (09:04)
[2018-04-09] MEDS: FLUTICASONE PROP 0.05% NASAL SPRAY 16 GM (FLONASE) NARES SCH (09:05)
[2018-04-09] MEDS: SALIVA SUBSTITUTE(MOUTHKOTE) BTL MT SCH (09:05)
--- NOTE | 2018-04-09 09:07 | IPNPDOC ---
Date Seen The patient was seen on 04/09/18. Progress Note SUBJECTIVE:Pt refuses lovenox due to echymoses on her abd and b/l arms. Pt refuses telemetry as "it bothers me." Pt anxious to go home but PT says "unsafe" on Monday's assessment. Despite tele: 42-56 bpm heart rate, no c/o syncope, dizziness, lightheadedness, sob. c/o generalized weakness and deconditionine. She says, "I have an elevator where I live." no other acute medical issues aside from constipation on bowel regimen, and requesting "something stronger,"despite having a small bowel movement yesterday. s/p mg citrate x 1 today. Changed to [facility] STATUS UNTIL PASSES HOME SAFETY EVALUATION. PHYSICAL EXAMINATION: VITAL SIGNS: pls see below GENERAL: no respiratory distress. answers questions appropiately, but tearful about not having help to ambulate. HEENT: Atraumatic. Pupils equal, round, reactive to light. No jaundice. Extraocular muscles intact. Ear, nose, throat: Normal. Mouth: Mucus a little bit dry. NECK: No jugular venous distention (JVD), no bruits. LUNGS:diminished. prolonged expiration with faint b/l wheezing. HEART: S1, S2, regular, no murmur, bradycardic. She has severe tenderness in left chest wall when you palpate, but there is no local redness or swelling. ABDOMEN: Soft, bowel sounds positive, nontender. LOWER EXTREMITIES: +1 edema in bilateral lower extremities. NEUROLOGIC: Nonfocal. SKIN: No rash. PSYCHOLOGIC: No acute psychosis. DIAGNOSTIC AND LABORATORIES: pls see below Chest x-ray is reviewed. No acute changes. EKG demonstrates junctional bradycardia. Clinical: Chest pain and shortness of breath. Technique: Axial noncontrast images from the thoracic inlet to the upper abdomen with coronal and sagittal re-formations. Findings: The bilateral lung xiao are well-aerated, symmetric, and clear. No consolidation, pleural effusion, or pneumothorax. No significant atelectasis dependent changes. Tracheobronchial tree is patent. No obvious adenopathy. The mediastinum demonstrates mild atherosclerotic changes of the thoracic aorta and coronary arteries without aortic aneurysm or cardiomegaly. No pericardial effusion. Surrounding musculoskeletal structures are intact. Impression: No acute mediastinal or pleuroparenchymal process appreciated. Electronically Signed by Hussein Barbosa MD 04/07/2018 10:35 A ASSESSMENT AND PLAN: The patient is a 67-year-old white female with several chronic medical conditions listed below, came to the hospital for management of above complaints. History is provided by herself but she is not a good historian. She stated in the last 2 days she has trouble breathing which is getting worse gradually, but she denies fever, no chills, no coughing, no runny nose, no sore throat, and also she stated she has some chest pain which is located in her left chest but no radiation. Any movement makes the pain worse or deep breathing makes the chest pain worse too. The worst pain is about 5/10 in severity. Due to worsening difficulty breathing, decided to come to the hospital for further evaluation. Her initial workup in the hospital was not significant. However, she was found to have bradycardia, her heart rate was around 40s, and also her EKG demonstrated she has junctional bradycardia but no acute ST-T wave change. call specialist butcher scullion, Dr. Rawls, was contacted with emergency room (ER) attending, Dr. Mckeon, and then Dr. Rawls recommended patient be admitted for observation and also meanwhile hold her beta silvia, so medicine service was called for admission. Junctional bradycardia telemetry: improved bradycardia and asymptomatic. tsh is wnl. pt denies lig htheadedness or dizziness off of metoprolol with improvement in HR. Dr. Rawls recommended patient be admitted for observation . Echo reviewed and unremarkable. Asthma/?copd exacerbation initally treated with anticoagulation for PE. s/p empiric heparin iv gtt for possible PE. low probability vq scan. on nebs. s/p iv solumedrol on po prednisone tapered dose with steroid induced hyperglycemia in the setting of unctorolled DM2 A1c 9.7. reviewed 2decho. trial of diuresis. right sided chest pain, nonpleuritic noncardiac as ekg and card saleh were negative on 04/06/18 ct chest without contrast 04/07/18: unremarkable vq scan low probability PE liver profile to rule out biliary colic was negative. most likely musculoskeletal and has resolved. contamined blood cx s/p vancomycin 04/06/18 discontinued 04/07/18 Type 2 diabetes., uncontrolled with A1c 9.7/ Steroid-induced hyperglycemia consistent carbs diet. insulin sliding scale with coverage. increase insulin for better glycemic control. Steroid-induced leukocytosis off of solumedrol. on tapered dose of prednisone. blood cx contaminant. episode of hypothermia 04/07/18, will check lactic acid and monitor for symptoms. Hypertension. metoprolol discontinued. norvasc or direct vasodilators if needed. Chronic kidney disease (CKD) stage III. at baseline creatinine. avoid nephrotoxins, renally dose meds. Morbid obesity. complicating care dvt prophylaxis: s/p heparin iv gtt. refused lovenox. on compression stockings. disposition: Changed to [facility] STATUS UNTIL PASSES HOME SAFETY EVALUATION. VS, I&O, 24H, Fishbone Vital Signs/I&O Vital Signs Date Time Temp Pulse Resp B/P (MAP) Pulse Ox O2 Delivery O2 Flow Rate FiO2 04/09/18 06:00 97.5 51 20 157/78 (104) 100 NIPPV (BIPAP/CPAP) I&O- Last 24 Hours up to 6 AM 04/09/18 05:59 Intake Total 1800 ml Output Total 3930 ml Balance -2130 ml Laboratory Data 24H LABS Laboratory Tests 2 04/08/18 11:40: Bedside Glucose (Misc Panel) 197H 04/08/18 16:24: Bedside Glucose (Misc Panel) 321H 04/08/18 20:44: Bedside Glucose (Misc Panel) 350H 04/09/18 05:23: Immature Granulocyte % (Auto) 0.7, White Blood Count 10.7H, Red Blood Count 4.10, Hemoglobin 11.7L, Hematocrit 36.5, Mean Corpuscular Volume 89.0, Mean Corpuscular Hemoglobin 28.5, Mean Corpuscular Hemoglobin Concent 32.1, Red Cell Distribution Width 13.2, Platelet Count 278, Neutrophils (%) (Auto) 57.3, Lymphocytes (%) (Auto) 33.1, Monocytes (%) (Auto) 7.9H, Eosinophils (%) (Auto) 0.9, Basophils (%) (Auto) 0.1, Neutrophils # (Auto) 6.1, Lymphocytes # (Auto) 3.5, Monocytes # (Auto) 0.8, Eosinophils # (Auto) 0.1, Basophils # (Auto) 0.0, Nucleated Red Blood Cells % (auto) 0.0, Erythrocyte Sedimentation Rate 14, Anion Gap 8, Glomerular Filtration Rate 40.4L, Blood Urea Nitrogen 45H, Creatinine 1.39H, Sodium Level 139, Potassium Level 3.6, Chloride Level 102, Carbon Dioxide Level 29, Calcium Level 9.3, C-Reactive Protein, Quantitative < 0.30 CBC/BMP Laboratory Tests 04/09/18 05:23 Red Blood Count 4.10, Mean Corpuscular Volume 89.0, Mean Corpuscular Hemoglobin 28.5, Mean Corpuscular Hemoglobin Concent 32.1, Red Cell Distribution Width 13.2, Neutrophils (%) (Auto) 57.3, Lymphocytes (%) (Auto) 33.1, Monocytes (%) (Auto) 7.9 H, Eosinophils (%) (Auto) 0.9, Basophils (%) (Auto) 0.1, Neutrophils # (Auto) 6.1, Lymphocytes # (Auto) 3.5, Monocytes # (Auto) 0.8, Eosinophils # (Auto) 0.1, Basophils # (Auto) 0.0, Calcium Level 9.3 Microbiology Microbiology 04/06/18 Blood Culture - Preliminary, Resulted No Growth after 48 hours. All Specime... 04/06/18 Blood Culture - Preliminary, Resulted No Growth after 48 hours. All Specime... 04/03/18 Blood Culture - Final, Complete NO GROWTH AFTER 5 DAYS 04/03/18 Blood Culture - Final, Complete Micrococcus Luteus 04/04/18 Group A Streptococcus Screen (HUSAM) - Final, Complete 04/04/18 Group A Streptococcus Screen (HUSAM) - Final, Complete 04/03/18 Respiratory Virus Panel (PCR) ([facility]USAM) - Final, Complete BETSY MARTINEZ MD Apr 09, 2018 09:07
[2018-04-09 12:00] VITALS: BP 153/67
[2018-04-09] MEDS ORDERED: PRED10TA2 PO (12:26)
[2018-04-09] MEDS ORDERED: LISI-542 PO (12:28)
[2018-04-09] MEDS ORDERED: AUTOKIT7 XX (12:30)
[2018-04-09] MEDS ORDERED: D-CA1KIT XX (12:30)
== END 2018-04-09 14:11 | disposition home or self-care (01) | DRG 309 ==
LOC: M ED 11:51 → M ED INP 15:35 → M PCU 17:19 → M MSPAV 04-06 13:59
PROVIDERS: ADMIT Hospitalist; ATTEND General Practice
DX: R00.1 Bradycardia, unspecified (principal); Z68.41 Body mass index [BMI] 40.0-44.9, adult; J44.1 Chronic obstructive pulmonary disease with (acute) exacerbation; E11.22 Type 2 diabetes mellitus with diabetic chronic kidney disease; R06.00 Dyspnea, unspecified; I12.9 Hypertensive chronic kidney disease with stage 1 through stage 4 chronic kidney disease, or unspecified chronic kidney disease; N18.3 Chronic kidney disease, stage 3 (moderate); E66.01 Morbid (severe) obesity due to excess calories; E11.65 Type 2 diabetes mellitus with hyperglycemia; K59.00 Constipation, unspecified; J45.909 Unspecified asthma, uncomplicated; T38.0X5A Adverse effect of glucocorticoids and synthetic analogues, initial encounter; R68.0 Hypothermia, not associated with low environmental temperature; F32.9 Major depressive disorder, single episode, unspecified; M54.5 Low back pain; R07.89 Other chest pain; Z88.6 Allergy status to analgesic agent; Z91.040 Latex allergy status; Z91.048 Other nonmedicinal substance allergy status; Z88.1 Allergy status to other antibiotic agents; Z79.4 Long term (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; Z79.899 Other long term (current) drug therapy

== ENCOUNTER 2018-04-11 10:48 | Emergency (ER) | payer MEDICARE, MEDICAID ==
[~2018-04-11 10:48] MED LIST changes: +AUTOKIT7 XX; +D-CA1KIT XX; +DICL1GEL3 TOP; +FLUTISP NARES; +GLIP10TA18 PO; +LISI-542 PO; +LISI40TA PO; +PRED10TA2 PO; +TYLE500T78 PO; +VENL75CA47 PO
[2018-04-11 11:45] LABS: BASO % 0.2 % (0.0-1.0); EOS # 0.3 10^3/uL (0.0-0.50); EOS % 2.8 % (0.0-3.0); HEMATOCRIT 38.6 % (36.0-47.0); HEMOGLOBIN 12.7 g/dl (12.0-15.5); LYMPH # 3.2 10^3/uL (1.5-4.5); MEAN CORPUSCULAR HEMOGLOBIN 28.7 pg (27.0-33.0); MEAN CORPUSCULAR HGB CONC 32.9 g/dl (32.0-36.5); MEAN CORPUSCULAR VOLUME 87.3 fl (80.0-96.0); MONO # 0.9 10^3/uL (0.0-0.8); MONO % 7.6 % (0.0-5.0); NEUTROPHILS # 7.7 10^3/uL (1.8-7.7); NEUTROPHILS % 62.8 % (36.0-66.0); PLATELET COUNT, AUTOMATED 304 10^3/uL (150-450); RED BLOOD COUNT 4.42 10^6/uL (4.00-5.40); WHITE BLOOD COUNT 12.3 10^3/uL (4.0-10.0)
[2018-04-11 12:06] LABS: ALBUMIN 3.7 GM/DL (3.2-5.2); BILIRUBIN,DIRECT 0.2 MG/DL (0.0-0.2); BILIRUBIN,TOTAL 0.5 MG/DL (0.2-1.0); CALCIUM LEVEL 8.8 MG/DL (8.8-10.2); CREATININE FOR GFR 1.66 MG/DL (0.55-1.30); GLOMERULAR FILTRATION RATE 32.9 (>45); POTASSIUM SERUM 4.3 MEQ/L (3.5-5.1); THYROID STIMULATING HORMONE 2.02 uIU/ML (0.358-3.740); TOTAL PROTEIN 6.8 GM/DL (6.4-8.2)
[2018-04-11 14:36] VITALS: O2SAT 94
[2018-04-11 16:00] VITALS: BP 125/61
--- NOTE | 2018-04-12 10:14 | ECGEPIP ---
Stationary ECG Study [facility] - ED Test Date: 2018-04-11 Pat Name: MANJU MILLS Department: Room: - Gender: F Pole Cutter: KERI : [id number] Requested By: Primo Velasquez Order Number: [id number] Reading MD: Lucille Dunbar Measurements Intervals [place] Rate: 52 P: 24 MI: 189 QRS: -4 QRSD: 94 T: 24 QT: 440 QTc: 411 Interpretive Statements SINUS BRADYCARDIA VOLTAGE CRITERIA FOR LVH NSTTW ABNORMALITY DECREASED RATE 04/06/18 Electronically Signed On 04-12-2018 10:13:47 EST by Lucille Dunbar
== END 2018-04-11 16:14 | disposition home or self-care (01) ==
LOC: EDBD 10:48 → M ED 10:48
DX: E11.649 Type 2 diabetes mellitus with hypoglycemia without coma (principal); R00.1 Bradycardia, unspecified; I12.9 Hypertensive chronic kidney disease with stage 1 through stage 4 chronic kidney disease, or unspecified chronic kidney disease; J44.9 Chronic obstructive pulmonary disease, unspecified; F32.9 Major depressive disorder, single episode, unspecified; N18.3 Chronic kidney disease, stage 3 (moderate); Z87.891 Personal history of nicotine dependence; Z88.8 Allergy status to other drugs, medicaments and biological substances; Z88.5 Allergy status to narcotic agent; Z91.048 Other nonmedicinal substance allergy status; Z91.040 Latex allergy status; Z79.899 Other long term (current) drug therapy; Z79.52 Long term (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 systemic steroids; Z79.4 Long term (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

== ENCOUNTER 2018-06-11 16:43 | Inpatient (IN) | payer MEDICARE, MEDICAID ==
[~2018-06-11] VITALS: Ht 167.6 cm; Wt 122.0 kg
[~2018-06-11 16:43] MED LIST changes: -/ADVA50050; -/ADVA50050 IN; -/GLIM4TA; -/QUET25TA; +ADVA1AER2; +ADVA1AER2 IN; +AMAR1TAB6; -DULO30CA PO; +DULO30CA9 PO; +FLUT50SP17; -FLUTISP; +LISI40TA52 PO; -LISI40TAB PO; +SERO1TAB3
[2018-06-11] MEDS ORDERED: ACETAMINOPHEN 325 MG TAB PO ONE (17:00)
[2018-06-11] MEDS ORDERED: FENO48TA2 PO (17:19)
[2018-06-11] MEDS ORDERED: dexameTHASONE 20 MG/5 ML VIAL (J1100) IV ONE (17:30)
[2018-06-11 17:33] LABS: ABG BASE EXCESS 0.8 (-2.0-2.0); ABG HCO3 23.3 MEQ/L (22.0-26.0); ABG O2 SATURATION 99.1 % (95.0-99.0); ABG PARTIAL PRESSURE CO2 30.5 mmHg (35.0-45.0); ABG PARTIAL PRESSURE O2 183.3 mmHg (75.0-100.0); ABG STANDARD HCO3 25.2 MEQ/L (22.0-26.0); ABG TOTAL CO2 24.2 MEQ/L (23.0-31.0)
--- NOTE | 2018-06-11 17:37 | REP ---
Clinical: Dyspnea . Comparison: 04/06/2018 . Findings: The mediastinum and cardiac silhouette are stable and within normal limits for portable technique. The lung xiao are clear without acute consolidation, effusion, or pneumothorax. Skeletal structures are intact. Impression: No acute cardiopulmonary process appreciated. Electronically Signed by Hussein Barbosa MD 06/11/2018 05:28 P
[2018-06-11 17:42] LABS: BASO % 0.5 % (0.0-1.0); EOS # 0.1 10^3/uL (0.0-0.50); EOS % 1.2 % (0.0-3.0); HEMATOCRIT 36.5 % (36.0-47.0); HEMOGLOBIN 12.1 g/dl (12.0-15.5); LYMPH # 1.1 10^3/uL (1.5-4.5); LYMPH % 12.4 % (24.0-44.0); MEAN CORPUSCULAR HEMOGLOBIN 29.2 pg (27.0-33.0); MEAN CORPUSCULAR HGB CONC 33.2 g/dl (32.0-36.5); MONO # 0.5 10^3/uL (0.0-0.8); MONO % 5.9 % (0.0-5.0); NEUTROPHILS # 6.9 10^3/uL (1.8-7.7); NEUTROPHILS % 79.7 % (36.0-66.0); PLATELET COUNT, AUTOMATED 288 10^3/uL (150-450); RED BLOOD COUNT 4.15 10^6/uL (4.00-5.40); WHITE BLOOD COUNT 8.7 10^3/uL (4.0-10.0)
[2018-06-11] MEDS: IPRATROPIUM 0.5MG/ALBUTEROL 2.5MG INH SOL UD 3ML (DUONEB)(J7620) NEB SCH ×2 (17:46→17:55)
[2018-06-11 17:52] LABS: INFLUENZA A AMPLIFICATION POSITIVE (NEGATIVE); INFLUENZA B AMPLIFICATION NEGATIVE (NEGATIVE)
[2018-06-11 18:15] LABS: BLOOD UREA NITROGEN 29 MG/DL (7-18); CALCIUM LEVEL 9.1 MG/DL (8.8-10.2); CARBON DIOXIDE LEVEL 26 MEQ/L (21-32); CHLORIDE LEVEL 102 MEQ/L (98-107); CREATININE FOR GFR 1.44 MG/DL (0.55-1.30); GLOMERULAR FILTRATION RATE 38.8 (>45); GLUCOSE, FASTING 169 MG/DL (70-100); POTASSIUM SERUM 3.8 MEQ/L (3.5-5.1); SODIUM LEVEL 137 MEQ/L (136-145)
[2018-06-11] MEDS ORDERED: OSELTAMIVIR PHOSPHATE 75 MG CAP (TAMIFLU) PO ONE (18:15)
[2018-06-11] MEDS ORDERED: FENO160T10 PO (18:45)
[2018-06-11] MEDS ORDERED: GLUC1CHW11 PO (18:50)
[2018-06-11] MEDS ORDERED: ONDANSETRON 4MG/2ML VIAL (J2405) IV PRN (20:15)
[2018-06-11] MEDS ORDERED: DEXTROSE 50% 50 ML SYRINGE IV PRN (20:30)
[2018-06-11] MEDS ORDERED: GLUCAGON FOR INJ 1 MG VIAL (J1610) SC PRN (20:30)
[2018-06-11] MEDS ORDERED: GLUCOSE 4 GM CHEW TABLET PO PRN (20:30)
[2018-06-11 20:51] LABS: TROPONIN I < 0.02 NG/ML (< 0.10)
[2018-06-11] MEDS: HumaLOG INSULIN (NovoLOG) PER UNIT SC SCH (21:00)
[2018-06-11] MEDS ORDERED: HumaLOG INSULIN (NovoLOG) PER UNIT SC SCH (21:00)
--- NOTE | 2018-06-11 21:18 | HPE ---
DATE OF ADMISSION: 06/11/2018 CHIEF COMPLAINT: Cough, headache, body aches, progressively worsening dyspnea on exertion. HISTORY OF THE PRESENT ILLNESS: The patient is a 67-year-old female with significant past medical history of hyperlipidemia, chronic kidney disease stage III, chronic obstructive pulmonary disease (COPD), asthma, diabetes, depression, hypertension, obstructive sleep apnea - on continuous positive airway pressure (CPAP), morbid obesity. She presents to the emergency room with a one-day history of cough of yellowish productive sputum, headache, body aches, difficulty breathing. In the emergency room, she was noted to be flu positive. She complains of chest pain with coughing. She also endorses diarrhea that started last night, loose bowel movements, nonbloody, non-mucoid. She endorses generalized body ache and sweats. At home, she has a sick grandson who was also noted to be flu positive recently. PAST MEDICAL HISTORY: See history of the present illness. PAST SURGICAL HISTORY: Hysterectomy, laminectomy. HOME MEDICATIONS: Include: - Tylenol - metformin - vitamin D - diclofenac - chlorthalidone - fenofibrate - fluticasone - insulin 70/30 - lisinopril - pravastatin - venlafaxine ALLERGIES: To QUINOLONES, TAPE, IBUPROFEN, LATEX, METOPROLOL and MORPHINE. SOCIAL HISTORY: Former smoker. Denies alcohol or illicit drug use. FAMILY HISTORY: Diabetes and heart disease. REVIEW OF SYSTEMS: A 12-point review of systems was completed, all of which were negative except those listed in the history of the present illness. VITAL SIGNS ON ADMISSION: Temperature 101.1, pulse 68, respirations 20, saturating at 96% on room air, blood pressure 174/73. PHYSICAL EXAM: General: Obese, in no apparent distress. Head is normocephalic, atraumatic Eyes: Extraocular movements are intact. Pupils equal, round, reactive to light. Neck is supple. No jugular venous pressure (JVP). Lungs: Diminished breath sounds. No crackles or wheezes. The patient is mildly tachypneic. Cardiovascular: Regular rate and rhythm. Normal S1, S2. No murmurs, gallops, or rubs. Abdomen: Soft, nontender, nondistended. Positive bowel sounds. No rebound, no guarding. Extremities: 1+ edema. No calf tenderness. Skin: Intact. No rashes, lesions, or breakdown. Neurological: Alert and oriented times three. No focal deficits appreciated on the exam. LABS AND IMAGING: Done in the emergency room: White count of 8, hemoglobin and hematocrit of 12 over 36, platelet count of 288, blood gas 7.5, 30, 183, 24, 99. Chemistries: BUN and creatinine of 24 over 1.44, baseline creatinine of around 1.4. Rapid flu: Influenza A is positive. CT of the chest shows no acute infiltrate. ASSESSMENT AND PLAN: 1. Shortness of breath secondary to influenza A with mild chronic obstructive pulmonary disease exacerbation. Will treat with Tamiflu, oxygen as needed, DuoNeb standing, albuterol as needed. Will give a short course of prednisone as well. 2. Mild COPD exacerbation. See problem 1. 3. Chronic kidney disease stage III, stable at baseline. 4. Hyperlipidemia. Continue pravastatin. 5. Diabetes with nephropathy. Continue 70/30, insulin sliding scale. 6. Depression. Continue Effexor. 7. Hypertension. Continue chlorthalidone. SUPPORTIVE: Deep vein thrombosis (DVT) prophylaxis. Heparin subcu. Gastrointestinal (GI) prophylaxis. Not indicated. Diet: Cardiac diabetic diet.
[2018-06-11 21:30] VITALS: BP 150/71
[2018-06-11] MEDS: ALBUTEROL SULFATE 2.5 MG/0.5 ML INH NEB SOLN NEB PRN (21:42)
[2018-06-11] MEDS: ACETAMINOPHEN TAB 650MG DOSE (2X325MG) PO PRN (22:21)
[2018-06-11 23:59] VITALS: BP 126/58
[2018-06-12] VITALS (7 sets, daily range): BP systolic 120–150; BP diastolic 56–67; O2SAT 98
[2018-06-12] MEDS: IPRATROPIUM 0.5MG/ALBUTEROL 2.5MG INH SOL UD 3ML (DUONEB)(J7620) NEB SCH ×6 (04:19→20:00)
[2018-06-12] MEDS: HEPARIN SOD (PORCINE) 5000 UNITS/ML VIAL SC SCH ×3 (05:46→21:21)
[2018-06-12 05:54] LABS: HEMATOCRIT 34.7 % (36.0-47.0); HEMOGLOBIN 11.3 g/dl (12.0-15.5); MEAN CORPUSCULAR HEMOGLOBIN 28.3 pg (27.0-33.0); MEAN CORPUSCULAR HGB CONC 32.6 g/dl (32.0-36.5); MEAN CORPUSCULAR VOLUME 86.8 fl (80.0-96.0); PLATELET COUNT, AUTOMATED 283 10^3/uL (150-450); WHITE BLOOD COUNT 8.9 10^3/uL (4.0-10.0)
[2018-06-12 06:12] LABS: CREATININE FOR GFR 1.37 MG/DL (0.55-1.30); GLOMERULAR FILTRATION RATE 41.1 (>45); POTASSIUM SERUM 3.6 MEQ/L (3.5-5.1)
[2018-06-12] MEDS: HumuLIN (NovoLIN)70/30 INSULIN INJ PER UNIT SC SCH ×2 (08:56→17:24)
[2018-06-12] MEDS: HumaLOG INSULIN (NovoLOG) PER UNIT SC SCH ×4 (08:56→20:15)
[2018-06-12] MEDS: CHLORTHALIDONE 25 MG TAB PO SCH (08:57)
[2018-06-12] MEDS: PRAVASTATIN 20 MG TAB PO SCH (08:57)
[2018-06-12] MEDS: FLUTICASONE PROP 0.05% NASAL SPRAY 16 GM (FLONASE) NARES SCH (08:57)
[2018-06-12] MEDS: OSELTAMIVIR PHOSPHATE 75 MG CAP (TAMIFLU) PO SCH ×2 (08:57→20:14)
[2018-06-12] MEDS: FENOFIBRATE 145 MG TAB (TRICOR) PO SCH (08:58)
[2018-06-12] MEDS: VENLAFAXINE **XR** 75MG CAPSULE PO SCH (08:58)
[2018-06-12] MEDS: LISINOPRIL 5 MG TAB PO SCH (08:58)
[2018-06-12] MEDS: predniSONE 20 MG TAB PO SCH (08:58)
[2018-06-12] MEDS ORDERED: FLUBLOK(EGG FREE)(QUAD)INFLUENZA VACC 0.5ML SYRINGE (90682)18YRS&OLDER IM ONE (09:00)
[2018-06-12] MEDS ORDERED: PREVNAR 13 VACCINE SYRINGE (CPT CODE:90670) IM ONE (09:00)
--- NOTE | 2018-06-12 09:12 | IPNPDOC ---
Date Seen The patient was seen on 06/12/18. Progress Note SUBJECTIVE: comfortable on room air saturating >94%, no c/o chest pain, pressure,tightness. tmax 101 overnight due to influenza on tamiflu. no c/o muscle aches. c/o generalized weakness and weak cough which is nonproductive. no chills. no nausea vomiting, abd pain. tele unremarkable overnight. used her cpap last night. no other issues per RN. awaiting PT eval for dc home. Pt prefers to go home tomorrow. PHYSICAL EXAM: VITALS : PLS SEE BELOW General: Obese, in no apparent distress. Head is normocephalic, atraumatic Eyes: Extraocular movements are intact. Pupils equal, round, reactive to light. Neck is supple. No jugular venous pressure (JVP). Lungs: Diminished breath sounds. No crackles or wheezes. The patient is mildly tachypneic. Cardiovascular: Regular rate and rhythm. Normal S1, S2. No murmurs, gallops, or rubs. Abdomen: Soft, nontender, nondistended. Positive bowel sounds. No rebound, no guarding. Extremities: 1+ edema. No calf tenderness. Skin: Intact. No rashes, lesions, or breakdown. Neurological: Alert and oriented times three. No focal deficits appreciated on the exam. LABORATORY DATA, IMAGING STUDIES, MICROBIOLOGY : REVIEWED. PLS SEE BELOW LABS AND IMAGING: Done in the emergency room: White count of 8, hemoglobin and hematocrit of 12 over 36, platelet count of 288, blood gas 7.5, 30, 183, 24, 99. Chemistries: BUN and creatinine of 24 over 1.44, baseline creatinine of around 1.4. Rapid flu: Influenza A is positive. CT of the chest shows no acute infiltrate. ASSESSMENT AND PLAN:ASSESSMENT AND PLAN: The patient is a 67-year-old female with significant past medical history of hyperlipidemia, chronic kidney disease stage III, chronic obstructive pulmonary disease (COPD), asthma, diabetes, depression, hypertension, obstructive sleep apnea - on continuous positive airway pressure (CPAP), morbid obesity. She presents to the emergency room with a one-day history of cough of yellowish productive sputum, headache, body aches, difficulty breathing. In the emergency room, she was noted to be flu positive. She complains of chest pain with coughing. She also endorses diarrhea that started last night, loose bowel movements, nonbloody, non-mucoid. She endorses generalized body ache and sweats. At home, she has a sick grandson who was also noted to be flu positive recently. influenza A with mild chronic obstructive pulmonary disease exacerbation. Will treat with Tamiflu, oxygen as needed, DuoNeb standing, albuterol as needed. Will give a short course of prednisone as well. Mild COPD exacerbation. due to influenza. on prednisone, nebs. o2 sat >90%. cxr neg. white count reviewed Chronic kidney disease stage III, stable at baseline. Hyperlipidemia. Continue pravastatin. Diabetes with nephropathy. Continue 70/30, insulin sliding scale. Depression. Continue Effexor. Hypertension. Continue chlorthalidone. disposition: dc today or in am if passes hse. ok to transfer to [facility]. VS, I&O, 24H, Fishbone Vital Signs/I&O Vital Signs Date Time Temp Pulse Resp B/P (MAP) Pulse Ox O2 Delivery O2 Flow Rate FiO2 06/12/18 08:58 138/56 06/12/18 08:00 96.9 77 20 96 3.0 06/12/18 07:20 Venturi Mask 24 I&O- Last 24 Hours up to 6 AM 06/12/18 06:00 Output Total 1000 ml Balance -1000 ml Laboratory Data 24H LABS Laboratory Tests 2 06/11/18 17:03: Influenza Type A (RT-PCR) POSITIVEH, Influenza Type B (RT-PCR) NEGATIVE 06/11/18 17:15: Blood Gas Bicarbonate Standard 25.2, Arterial Blood pH 7.500H, Arterial Blood Partial Pressure CO2 30.5L, Arterial Blood Partial Pressure O2 183.3H, Arterial Blood Total CO2 24.2, Arterial Blood HCO3 23.3, Arterial Blood Base Excess 0.8, Arterial Blood Oxygen Saturation 99.1H 06/11/18 17:23: Immature Granulocyte % (Auto) 0.3, White Blood Count 8.7, Red Blood Count 4.15, Hemoglobin 12.1, Hematocrit 36.5, Mean Corpuscular Volume 88.0, Mean Corpuscular Hemoglobin 29.2, Mean Corpuscular Hemoglobin Concent 33.2, Red Cell Distribution Width 12.4, Platelet Count 288, Neutrophils (%) (Auto) 79.7H, Lymphocytes (%) (Auto) 12.4L, Monocytes (%) (Auto) 5.9H, Eosinophils (%) (Auto) 1.2, Basophils (%) (Auto) 0.5, Neutrophils # (Auto) 6.9, Lymphocytes # (Auto) 1.1L, Monocytes # (Auto) 0.5, Eosinophils # (Auto) 0.1, Basophils # (Auto) 0.0, Nucleated Red Blood Cells % (auto) 0.0, Anion Gap 9, Glomerular Filtration Rate 38.8L, Lactic Acid Level 2.0, Blood Urea Nitrogen 29H, Creatinine 1.44H, Sodium Level 137, Potassium Level 3.8, Chloride Level 102, Carbon Dioxide Level 26, Calcium Level 9.1, Troponin I < 0.02 06/11/18 21:41: Bedside Glucose (Misc Panel) 181H 06/12/18 05:21: Nucleated Red Blood Cells % (auto) 0.0, Anion Gap 9, Glomerular Filtration Rate 41.1L, Blood Urea Nitrogen 29H, Creatinine 1.37H, Sodium Level 138, Potassium Level 3.6, Chloride Level 104, Carbon Dioxide Level 25, Calcium Level 9.0 CBC/BMP Laboratory Tests 06/11/18 17:23 Red Blood Count 4.15, Mean Corpuscular Volume 88.0, Mean Corpuscular Hemoglobin 29.2, Mean Corpuscular Hemoglobin Concent 33.2, Red Cell Distribution Width 12.4, Neutrophils (%) (Auto) 79.7 H, Lymphocytes (%) (Auto) 12.4 L, Monocytes (%) (Auto) 5.9 H, Eosinophils (%) (Auto) 1.2, Basophils (%) (Auto) 0.5, Neutrophils # (Auto) 6.9, Lymphocytes # (Auto) 1.1 L, Monocytes # (Auto) 0.5, Eosinophils # (Auto) 0.1, Basophils # (Auto) 0.0, Calcium Level 9.1 06/12/18 05:21 Red Blood Count 4.00, Mean Corpuscular Volume 86.8, Mean Corpuscular Hemoglobin 28.3, Mean Corpuscular Hemoglobin Concent 32.6, Red Cell Distribution Width 12.6, Calcium Level 9.0 Microbiology Microbiology 06/11/18 Blood Culture, Received Pending BETSY MARTINEZ MD Jun 12, 2018 09:11
[2018-06-12] MEDS: ACETAMINOPHEN TAB 650MG DOSE (2X325MG) PO PRN ×2 (10:29→20:14)
[2018-06-12] MEDS ORDERED: HumaLOG INSULIN (NovoLOG) PER UNIT SC ONE (15:00)
[2018-06-12 15:39] LABS: CPK CREATINE PHOSPHOKINASE 164 U/L (26-192); MB/CK RELATIVE INDEX 1.04 (< OR =4); TROPONIN I < 0.02 NG/ML (< 0.10)
[2018-06-13] MEDS: IPRATROPIUM 0.5MG/ALBUTEROL 2.5MG INH SOL UD 3ML (DUONEB)(J7620) NEB SCH ×7 (03:36→23:39)
[2018-06-13 06:00] VITALS: BP 120/68
[2018-06-13] MEDS: HEPARIN SOD (PORCINE) 5000 UNITS/ML VIAL SC SCH ×3 (06:02→21:35)
[2018-06-13 06:39] LABS: HEMATOCRIT 33.7 % (36.0-47.0); HEMOGLOBIN 10.9 g/dl (12.0-15.5); MEAN CORPUSCULAR HEMOGLOBIN 28.7 pg (27.0-33.0); MEAN CORPUSCULAR HGB CONC 32.3 g/dl (32.0-36.5); MEAN CORPUSCULAR VOLUME 88.7 fl (80.0-96.0); PLATELET COUNT, AUTOMATED 290 10^3/uL (150-450); WHITE BLOOD COUNT 8.9 10^3/uL (4.0-10.0)
[2018-06-13 07:05] LABS: CREATININE FOR GFR 1.41 MG/DL (0.55-1.30); GLOMERULAR FILTRATION RATE 39.7 (>45); POTASSIUM SERUM 3.4 MEQ/L (3.5-5.1)
[2018-06-13] MEDS: CHLORTHALIDONE 25 MG TAB PO SCH (08:39)
[2018-06-13] MEDS: HumuLIN (NovoLIN)70/30 INSULIN INJ PER UNIT SC SCH ×2 (08:40→17:52)
[2018-06-13] MEDS: PRAVASTATIN 20 MG TAB PO SCH (08:40)
[2018-06-13] MEDS: OSELTAMIVIR PHOSPHATE 75 MG CAP (TAMIFLU) PO SCH ×2 (08:40→21:34)
[2018-06-13] MEDS: predniSONE 20 MG TAB PO SCH (08:40)
[2018-06-13] MEDS: HumaLOG INSULIN (NovoLOG) PER UNIT SC SCH ×4 (08:41→21:00)
[2018-06-13] MEDS: LISINOPRIL 5 MG TAB PO SCH (08:43)
[2018-06-13] MEDS ORDERED: POTASSIUM CHLORIDE 10 MEQ SR TABLET PO ONE (08:45)
[2018-06-13] MEDS: VENLAFAXINE **XR** 75MG CAPSULE PO SCH (09:00)
--- NOTE | 2018-06-13 09:09 | IPNPDOC ---
Date Seen The patient was seen on 06/13/18. Progress Note SUBJECTIVE: failed HSE. c/o radicular pain from low back to right leg and c/o "unsteady" gait as she ambulates with a walker to and from the bathroom. awaiting HSE clearance. ortho sx in [place], [place] s/p lumbar fusion, and had not seen anyone else locally. comfortable on room air saturating >94%, no c/o chest pain, pressure,tightness. tmax 101 06/11/18 due to influenza on tamiflu. no c/o muscle aches. c/o generalized weakness and weak cough which is nonproductive. no chills. no nausea vomiting, abd pain. uses her cpap at night. PHYSICAL EXAM: VITALS : PLS SEE BELOW General: Obese, in no apparent distress. Head is normocephalic, atraumatic Eyes: Extraocular movements are intact. Pupils equal, round, reactive to light. Neck is supple. No jugular venous pressure (JVP). Lungs: Diminished breath sounds. No crackles or wheezes. The patient is mildly tachypneic. Cardiovascular: Regular rate and rhythm. Normal S1, S2. No murmurs, gallops, or rubs. Abdomen: Soft, nontender, nondistended. Positive bowel sounds. No rebound, no guarding. Extremities: 1+ edema. No calf tenderness. unsteady gait. unable to perform SLR test due to pain. Skin: Intact. No rashes, lesions, or breakdown. Neurological: Alert and oriented times three. No focal deficits appreciated on the exam. LABORATORY DATA, IMAGING STUDIES, MICROBIOLOGY : REVIEWED. PLS SEE BELOW LABS AND IMAGING: Done in the emergency room: White count of 8, hemoglobin and hematocrit of 12 over 36, platelet count of 288, blood gas 7.5, 30, 183, 24, 99. Chemistries: BUN and creatinine of 24 over 1.44, baseline creatinine of around 1.4. Rapid flu: Influenza A is positive. CT of the chest shows no acute infiltrate. ASSESSMENT AND PLAN:ASSESSMENT AND PLAN: The patient is a 67-year-old female with significant past medical history of hyperlipidemia, chronic kidney disease stage III, chronic obstructive pulmonary disease (COPD), asthma, diabetes, depression, hypertension, obstructive sleep apnea - on continuous positive airway pressure (CPAP), morbid obesity. She presents to the emergency room with a one-day history of cough of yellowish productive sputum, headache, body aches, difficulty breathing. In the emergency room, she was noted to be flu positive. She complains of chest pain with coughing. She also endorses diarrhea that started last night, loose bowel movements, nonbloody, non-mucoid. She endorses generalized body ache and sweats. At home, she has a sick grandson who was also noted to be flu positive recently. influenza A with mild chronic obstructive pulmonary disease exacerbation. Will treat with Tamiflu, oxygen as needed, DuoNeb standing, albuterol as needed. Will give a short course of prednisone as well. Mild COPD exacerbation. due to influenza. on prednisone, nebs. o2 sat >90%. cxr neg. white count reviewed lumbar radiculopathy with h/o lumbar spine fusion in [place], [place] years ago pain mgt consultation. checkright hip xrayand mri ls spine and cervical spine Chronic kidney disease stage III, stable at baseline. Hyperlipidemia. Continue pravastatin. Diabetes with nephropathy. Continue 70/30, insulin sliding scale. Depression. Continue Effexor. Hypertension. Continue chlorthalidone. VS, I&O, 24H, Fishbone Vital Signs/I&O Vital Signs Date Time Temp Pulse Resp B/P (MAP) Pulse Ox O2 Delivery O2 Flow Rate FiO2 06/13/18 08:43 136/72 06/13/18 06:00 97.9 53 16 100 06/12/18 08:00 3.0 06/12/18 07:20 Venturi Mask 24 I&O- Last 24 Hours up to 6 AM 06/13/18 06:00 Intake Total 1560 ml Output Total 2100 ml Balance -540 ml Laboratory Data 24H LABS Laboratory Tests 2 06/12/18 11:40: Bedside Glucose (Misc Panel) 356H 06/12/18 14:46: Bedside Glucose (Misc Panel) 397H 06/12/18 15:01: Total Creatine Kinase 164, Creatine Kinase MB 2.0, Creatine Kinase MB Relative Index 1.04, Troponin I < 0.02 06/12/18 17:14: Bedside Glucose (Misc Panel) 439H 06/12/18 19:53: Bedside Glucose (Misc Panel) 398H 06/13/18 06:08: Nucleated Red Blood Cells % (auto) 0.0, Anion Gap 8, Glomerular Filtration Rate 39.7L, Blood Urea Nitrogen 37H, Creatinine 1.41H, Sodium Level 140, Potassium Level 3.4L, Chloride Level 105, Carbon Dioxide Level 27, Calcium Level 9.0 CBC/BMP Laboratory Tests 06/13/18 06:08 Red Blood Count 3.80 L, Mean Corpuscular Volume 88.7, Mean Corpuscular Hemoglobin 28.7, Mean Corpuscular Hemoglobin Concent 32.3, Red Cell Distribution Width 13.1, Calcium Level 9.0 Microbiology Microbiology 06/11/18 Blood Culture - Preliminary, Resulted No growth after 24 hours . All specim... BETSY MARTINEZ MD Jun 13, 2018 08:57
[2018-06-13] MEDS: FLUTICASONE PROP 0.05% NASAL SPRAY 16 GM (FLONASE) NARES SCH (10:04)
--- NOTE | 2018-06-13 10:21 | REP ---
Right hip: Two views. History: Right hip pain. Findings: AP and frog-leg views of the right hip are compared with prior study from December 14, 2010. There is fairly prominent tendon insertion site spurring at the greater trochanter and iliac crest on the right. There is osteoarthritic spurring at the right hip articulation. These findings are more pronounced than on the prior study. Femoral head is smooth and rounded. No fractures seen. Impression: Osteoarthritis at the hip and tendon insertion site spurring may reflect tendonitis. No acute bony abnormality. Electronically Signed by Pb Moran MD 06/13/2018 11:10 A
[2018-06-13] MEDS: FENOFIBRATE 145 MG TAB (TRICOR) PO SCH (11:06)
[2018-06-13 14:00] VITALS: BP 126/61
[2018-06-13 21:15] VITALS: BP 141/64
[2018-06-13] MEDS: ACETAMINOPHEN TAB 650MG DOSE (2X325MG) PO PRN (21:34)
--- NOTE | 2018-06-13 21:57 | REPVR ---
EXAM: MR Cervical Spine Without Contrast EXAM DATE/TIME: 06/13/2018 8:59 PM CLINICAL HISTORY: 67 years old, female; Pain and signs and symptoms; Numbness; Other: RT 4th, 5th numbness R/O cervical stenosis; Additional info: No contrast RT 4th, 5th digit numb R/O cervical stenosis. TECHNIQUE: Imaging protocol: Multiplanar magnetic resonance images of the cervical spine without contrast. COMPARISON: No relevant prior studies available. FINDINGS: Limitations: This examination is slightly suboptimal secondary to patient motion. Vertebrae: Straightening of the normal cervical lordosis with mild flexion of the cervical spine, likely secondary to splinting and/or patient positioning. Degenerative disc disease and facet arthrosis throughout the cervical spine. C2-C3: No significant disc disease. No stenosis. C3-C4: No significant disc disease. No stenosis. C4-C5: Disc space height loss, posterior broad-based disco-osteophytic protrusion and bilateral uncovertebral joint hypertrophy. Mild spinal stenosis with effacement of the anterior thecal sac. Mild right-sided and moderate left-sided neural foraminal narrowing. C5-C6: Posterior broad-based disco-osteophytic protrusion and bilateral uncovertebral joint hypertrophy. Effacement of the anterior thecal sac with mild spinal stenosis. Moderate/severe bilateral neural foraminal stenosis. C6-C7: Posterior broad-based disco-osteophytic ridging with effacement of the anterior thecal sac. No spinal stenosis. Bilateral uncovertebral joint hypertrophy. Mild narrowing of the right neural foramen. Moderate narrowing of the left neural foramen. C7-T1: No significant disc disease. No stenosis. Spinal cord: No cord compression. Retropharyngeal space: Normal retropharyngeal soft tissues. Soft tissues: Unremarkable IMPRESSION: Degenerative spondylosis of the cervical spine with mild spinal stenosis and variable degrees of bilateral foraminal stenosis as described above. Electronically signed by: Temo Gomez On 06/13/2018 21:57:16 PM
--- NOTE | 2018-06-13 22:10 | REPVR ---
EXAM: MR Lumbar Spine Without Contrast. EXAM DATE/TIME: 06/13/2018 8:59 PM CLINICAL HISTORY: 67 years old, female; Pain and signs and symptoms; Other: 4th and 5th digdit numbness HX, ? stenosis; Prior surgery; Surgery date: 6+ months; Surgery type: HX of fusion x2; Additional info: No iv contrast r le radicular pain R/O lumbar spine stenosis TECHNIQUE: Imaging protocol: Multiplanar magnetic resonance images of the lumbar spine without intravenous contrast. COMPARISON: No relevant prior studies available. FINDINGS: Vertebrae: No fracture. Marrow: Small vertebral hemangiomas within the T12 and L1 vertebral bodies. Spinal cord: The conus terminates at the level of the T12 inferior endplate. Degenerative disc disease and facet arthrosis throughout the lumbar spine. L1-L2: Disc space height loss, decreased disc signal and Modic type II endplate signal change. Posterior broad-based disc protrusion, asymmetric to the right. Bilateral facet hypertrophy and ligamentum flavum thickening. Mild spinal stenosis. Right posterior paracentral small disc extrusion with 7 mm of superior migration abuts and may slightly displace the right L1 nerve root. (Axial image 24 of series 601). L2-L3: Disc space height loss, decreased disc signal and Modic type II endplate signal change. Asymmetric left-sided posterior broad-based disc protrusion, bilateral facet hypertrophy and ligamentum flavum thickening. Mild spinal stenosis. No focal disc protrusion. Protruding disc material on the left abuts the left L2 nerve root. L3-L4: Disc space height loss, decreased disc signal, Modic type I endplate signal change. Posterior broad-based disc protrusion and bilateral facet hypertrophy. Mild spinal stenosis. No focal disc protrusion or definite evidence of nerve root impingement. L4-L5: Postoperative changes from prior posterior decompression at L4-L5. Severe disc space height loss. Probable posterior central bridging osteophyte with posterior bony protrusion. Posterior decompression is present at this level. No spinal stenosis. No focal disc protrusion or nerve impingement. L5-S1: Severe disc space height loss and decreased disc signal. No focal disc protrusion or spinal stenosis. Bilateral facet hypertrophy, worse on the right. Soft tissues: Unremarkable. IMPRESSION: Severe degenerative spondylosis of the lumbar spine. Electronically signed by: Temo Gomez On 06/13/2018 22:10:19 PM
[2018-06-14] MEDS: IPRATROPIUM 0.5MG/ALBUTEROL 2.5MG INH SOL UD 3ML (DUONEB)(J7620) NEB SCH ×5 (04:00→18:11)
[2018-06-14] MEDS: HEPARIN SOD (PORCINE) 5000 UNITS/ML VIAL SC SCH ×3 (05:50→21:07)
[2018-06-14 06:02] VITALS: BP 147/73
[2018-06-14 07:09] LABS: HEMATOCRIT 33.7 % (36.0-47.0); MEAN CORPUSCULAR HEMOGLOBIN 28.8 pg (27.0-33.0); MEAN CORPUSCULAR HGB CONC 32.6 g/dl (32.0-36.5); MEAN CORPUSCULAR VOLUME 88.2 fl (80.0-96.0); PLATELET COUNT, AUTOMATED 294 10^3/uL (150-450); RED BLOOD COUNT 3.82 10^6/uL (4.00-5.40); WHITE BLOOD COUNT 8.2 10^3/uL (4.0-10.0)
[2018-06-14 07:36] LABS: CREATININE FOR GFR 1.35 MG/DL (0.55-1.30); GLOMERULAR FILTRATION RATE 41.8 (>45); POTASSIUM SERUM 3.4 MEQ/L (3.5-5.1)
[2018-06-14] MEDS: VENLAFAXINE **XR** 75MG CAPSULE PO SCH (08:38)
[2018-06-14] MEDS: PRAVASTATIN 20 MG TAB PO SCH (08:38)
[2018-06-14] MEDS: OSELTAMIVIR PHOSPHATE 75 MG CAP (TAMIFLU) PO SCH ×2 (08:39→21:03)
[2018-06-14] MEDS: CHLORTHALIDONE 25 MG TAB PO SCH (08:39)
[2018-06-14] MEDS: POTASSIUM CHLORIDE 10 MEQ SR TABLET PO SCH ×2 (08:39→21:03)
[2018-06-14] MEDS: FENOFIBRATE 145 MG TAB (TRICOR) PO SCH (08:39)
[2018-06-14] MEDS: LISINOPRIL 5 MG TAB PO SCH (08:41)
[2018-06-14] MEDS: HumaLOG INSULIN (NovoLOG) PER UNIT SC SCH ×4 (08:42→21:04)
[2018-06-14] MEDS ORDERED: FLUBLOK(EGG FREE)(QUAD)INFLUENZA VACC 0.5ML SYRINGE (90682)18YRS&OLDER IM ONE (09:00)
[2018-06-14] MEDS ORDERED: PREVNAR 13 VACCINE SYRINGE (CPT CODE:90670) IM ONE (09:00)
--- NOTE | 2018-06-14 09:10 | IPNPDOC ---
Date Seen The patient was seen on 06/14/18. Progress Note SUBJECTIVE: Pt was seen and examined at the bedside. Chart has been reviewed. Pain management was consulted on 06/13/18, but did not awaken the patient from sleep, and no recommendations were made. MRI cervical and lumbar spine: spondylolysis, disc bulges. spinal stenosis. No other issues per RN. failed HSE. c/o radicular pain from low back to right leg and c/o "unsteady" gait as she ambulates with a walker to and from the bathroom. awaiting HSE clearance. ortho sx in [place], [place] s/p lumbar fusion, and had not seen anyone else locally. comfortable on room air saturating >94%, no c/o chest pain, pressure,tightness. tmax 101 06/11/18 due to influenza on tamiflu. no c/o muscle aches. c/o generalized weakness and weak cough which is nonproductive. no chills. no nausea vomiting, abd pain. uses her cpap at night. PHYSICAL EXAM: VITALS : PLS SEE BELOW General: Obese, in no apparent distress. Head is normocephalic, atraumatic Eyes: Extraocular movements are intact. Pupils equal, round, reactive to light. Neck is supple. No jugular venous pressure (JVP). Lungs: Diminished breath sounds. No crackles or wheezes. The patient is mildly tachypneic. Cardiovascular: Regular rate and rhythm. Normal S1, S2. No murmurs, gallops, or rubs. Abdomen: Soft, nontender, nondistended. Positive bowel sounds. No rebound, no guarding. Extremities: 1+ edema. No calf tenderness. unsteady gait. unable to perform SLR test due to pain. Skin: Intact. No rashes, lesions, or breakdown. Neurological: Alert and oriented times three. No focal deficits appreciated on the exam. LABORATORY DATA, IMAGING STUDIES, MICROBIOLOGY : REVIEWED. PLS SEE BELOW LABS AND IMAGING: Done in the emergency room: White count of 8, hemoglobin and hematocrit of 12 over 36, platelet count of 288, blood gas 7.5, 30, 183, 24, 99. Chemistries: BUN and creatinine of 24 over 1.44, baseline creatinine of around 1.4. Rapid flu: Influenza A is positive. CT of the chest shows no acute infiltrate. ASSESSMENT AND PLAN:ASSESSMENT AND PLAN: The patient is a 67-year-old female with significant past medical history of hyperlipidemia, chronic kidney disease stage III, chronic obstructive pulmonary disease (COPD), asthma, diabetes, depression, hypertension, obstructive sleep apnea - on continuous positive airway pressure (CPAP), morbid obesity. She presents to the emergency room with a one-day history of cough of yellowish productive sputum, headache, body aches, difficulty breathing. In the emergency room, she was noted to be flu positive. She complains of chest pain with coughing. She also endorses diarrhea that started last night, loose bowel movements, nonbloody, non-mucoid. She endorses generalized body ache and sweats. At home, she has a sick grandson who was also noted to be flu positive recently. influenza A with mild chronic obstructive pulmonary disease exacerbation. Will treat with Tamiflu, oxygen as needed, DuoNeb standing, albuterol as needed. Will give a short course of prednisone as well. Mild COPD exacerbation. due to influenza. on prednisone, nebs. o2 sat >90%. cxr neg. white count reviewed lumbar radiculopathy with h/o lumbar spine fusion in [place], [place] years ago pain mgt consultation. checkright hip xrayand mri ls spine and cervical spine Chronic kidney disease stage III, stable at baseline. Hyperlipidemia. Continue pravastatin. Diabetes with nephropathy. Continue 70/30, insulin sliding scale. Depression. Continue Effexor. Hypertension. Continue chlorthalidone. disposition: awaiting pain management consultation and physical therapy clearance . VS, I&O, 24H, Fishbone Vital Signs/I&O Vital Signs Date Time Temp Pulse Resp B/P (MAP) Pulse Ox O2 Delivery O2 Flow Rate FiO2 06/14/18 08:41 135/69 06/14/18 06:02 96.9 53 18 99 06/12/18 08:00 3.0 06/12/18 07:20 Venturi Mask 24 I&O- Last 24 Hours up to 6 AM 06/14/18 06:00 Intake Total 2240 ml Output Total 4300 ml Balance -2060 ml Laboratory Data 24H LABS Laboratory Tests 2 06/13/18 12:10: Bedside Glucose (Misc Panel) 331H 06/13/18 17:41: Bedside Glucose (Misc Panel) 410H 06/13/18 21:22: Bedside Glucose (Misc Panel) 402H 06/14/18 06:55: Nucleated Red Blood Cells % (auto) 0.0, Anion Gap 7L, Glomerular Filtration Rate 41.8L, Blood Urea Nitrogen 38H, Creatinine 1.35H, Sodium Level 141, Potassium Level 3.4L, Chloride Level 105, Carbon Dioxide Level 29, Calcium Level 9.0 CBC/BMP Laboratory Tests 06/14/18 06:55 Red Blood Count 3.82 L, Mean Corpuscular Volume 88.2, Mean Corpuscular Hemoglobin 28.8, Mean Corpuscular Hemoglobin Concent 32.6, Red Cell Distribution Width 13.0, Calcium Level 9.0 Microbiology Microbiology 06/11/18 Blood Culture - Preliminary, Resulted No Growth after 48 hours. All Specime... BETSY MARTINEZ MD Jun 14, 2018 09:10
[2018-06-14] MEDS ORDERED: MOM 30ML SUSPENSION UDC PO ONE (09:15)
[2018-06-14] MEDS ORDERED: SENOKOT S TAB PO ONE (09:15)
[2018-06-14] MEDS ORDERED: SENOKOT S TAB PO PRN (09:15)
[2018-06-14] MEDS: FLUTICASONE PROP 0.05% NASAL SPRAY 16 GM (FLONASE) NARES SCH (09:32)
[2018-06-14] MEDS: HumuLIN (NovoLIN)70/30 INSULIN INJ PER UNIT SC SCH (09:33)
[2018-06-14 10:19] LABS: HEMOGLOBIN A1c 8.7 %
[2018-06-14 14:00] VITALS: BP 136/68
[2018-06-14 15:18] VITALS: BP 116/58
[2018-06-14] MEDS ORDERED: HumuLIN (NovoLIN)70/30 INSULIN INJ PER UNIT SC SCH (21:00)
[2018-06-14] MEDS: GABAPENTIN 100 MG CAP PO SCH (21:03)
[2018-06-14 22:00] VITALS: BP 129/60
--- NOTE | 2018-06-14 22:59 | CR ---
DATE OF CONSULTATION: 06/14/2018 This is a 67-year-old female patient that was admitted on 06/11/2018 for flu and bronchitis. She was admitted with generalized weakness, cough and fever. She is now recovering. The patient has been complaining of lower back pain and radiculopathy down her right leg. She was given a Magnetic Resonance Imaging (MRI) of her cervical and lumbar spine and found to have spondylosis, disc bulges and spinal stenosis. This patient is currently taking Tylenol 650 mg every 6 hours for pain. She has had previous back surgeries more than 20 years ago, and has had lower back pain since this time.Patient says she experiences an increase in her lower back pain and radiculopathy down her right leg, whenever she is ill. She also confirms that she is under the care of an orthopedic group in [place] for bilateral knee pain and says she requires knee replacement. She rates her pain as 5/10 and considers this her " baseline". On examination, the patient is alert and oriented. Her heart sounds are regular, no murmurs. Lungs are clear. Her lumbar spine she has a small linear scar of approximately 10 cm from L2 to L5. Upon standing, the patient is a little unsteady and has shaking and spasms. She says that this normally occurs when she goes from a seated to a standing position, but settles down after 5 minutes. She is able to ambulate with the walker. I would like to suggest that for her pain to change her current medication of the Effexor to Cymbalta 20 mg once a day for her generalized myalgia and pain. In addition, consider starting Gabapentin 100 mg tablets at bedtime only. I advised the patient that, should she need further pain management, when she is eventually discharged home, she can ask her primary care doctor to send pain management at [facility],if she so wishes. Please feel free to contact me for further information. Thank you with kind regards. SELMA
[2018-06-15] MEDS: IPRATROPIUM 0.5MG/ALBUTEROL 2.5MG INH SOL UD 3ML (DUONEB)(J7620) NEB SCH ×7 (04:00→23:25)
[2018-06-15] MEDS: HEPARIN SOD (PORCINE) 5000 UNITS/ML VIAL SC SCH ×3 (05:22→21:28)
[2018-06-15 06:00] VITALS: BP 134/70
[2018-06-15 06:18] LABS: HEMATOCRIT 33.8 % (36.0-47.0); HEMOGLOBIN 11.2 g/dl (12.0-15.5); MEAN CORPUSCULAR HEMOGLOBIN 28.8 pg (27.0-33.0); MEAN CORPUSCULAR HGB CONC 33.1 g/dl (32.0-36.5); MEAN CORPUSCULAR VOLUME 86.9 fl (80.0-96.0); PLATELET COUNT, AUTOMATED 315 10^3/uL (150-450); RED BLOOD COUNT 3.89 10^6/uL (4.00-5.40); WHITE BLOOD COUNT 7.2 10^3/uL (4.0-10.0)
[2018-06-15 06:36] LABS: CALCIUM LEVEL 9.1 MG/DL (8.8-10.2); CREATININE FOR GFR 1.39 MG/DL (0.55-1.30); GLOMERULAR FILTRATION RATE 40.4 (>45); POTASSIUM SERUM 3.8 MEQ/L (3.5-5.1)
[2018-06-15] MEDS: OSELTAMIVIR PHOSPHATE 75 MG CAP (TAMIFLU) PO SCH ×2 (09:26→21:27)
[2018-06-15] MEDS: CHLORTHALIDONE 25 MG TAB PO SCH (09:27)
[2018-06-15] MEDS: FENOFIBRATE 145 MG TAB (TRICOR) PO SCH (09:27)
[2018-06-15] MEDS: LISINOPRIL 5 MG TAB PO SCH (09:27)
[2018-06-15] MEDS: DULoxetine 20 MG CAP (CYMBALTA) PO SCH (09:27)
[2018-06-15] MEDS: PRAVASTATIN 20 MG TAB PO SCH (09:27)
[2018-06-15] MEDS: POTASSIUM CHLORIDE 10 MEQ SR TABLET PO SCH ×2 (09:28→21:27)
[2018-06-15] MEDS: HumuLIN (NovoLIN)70/30 INSULIN INJ PER UNIT SC SCH ×2 (09:28→21:31)
[2018-06-15] MEDS: FLUTICASONE PROP 0.05% NASAL SPRAY 16 GM (FLONASE) NARES SCH (09:29)
[2018-06-15] MEDS: HumaLOG INSULIN (NovoLOG) PER UNIT SC SCH ×4 (09:29→21:28)
--- NOTE | 2018-06-15 11:15 | IPNPDOC ---
Date Seen The patient was seen on 06/15/18. Progress Note SUBJECTIVE: Pt says she still feels week, and has not passed HSE by physical therapy most likely requiring a few more sessions. Pain mgt recommended gabapentin qhs and cymbalta. effexor discontinued. She has tolerable pain this morning, and cooperative with physical therapy. still w occasional restless legs at night with paresthesias. uncontrolled dm with increased humulin insulin PHYSICAL EXAM: VITALS : PLS SEE BELOW General: Obese, in no apparent distress. Head is normocephalic, atraumatic Eyes: Extraocular movements are intact. Pupils equal, round, reactive to light. Neck is supple. No jugular venous pressure (JVP). Lungs: Diminished breath sounds. No crackles or wheezes. Cardiovascular: Regular rate and rhythm. Normal S1, S2. No murmurs, gallops, or rubs. Abdomen: Soft, nontender, nondistended. Positive bowel sounds. No rebound, no guarding. Extremities: 1+ edema. No calf tenderness. unsteady gait. unable to perform SLR test due to pain. Skin: Intact. No rashes, lesions, or breakdown. Neurological: Alert and oriented times three. No focal deficits appreciated on the exam. LABORATORY DATA, IMAGING STUDIES, MICROBIOLOGY : REVIEWED. PLS SEE BELOW LABS AND IMAGING: Done in the emergency room: White count of 8, hemoglobin and hematocrit of 12 over 36, platelet count of 288, blood gas 7.5, 30, 183, 24, 99. Chemistries: BUN and creatinine of 24 over 1.44, baseline creatinine of around 1.4. Rapid flu: Influenza A is positive. CT of the chest shows no acute infiltrate. ASSESSMENT AND PLAN:ASSESSMENT AND PLAN: The patient is a 67-year-old female with significant past medical history of hyperlipidemia, chronic kidney disease stage III, chronic obstructive pulmonary disease (COPD), asthma, diabetes, depression, hypertension, obstructive sleep apnea - on continuous positive airway pressure (CPAP), morbid obesity. She presents to the emergency room with a one-day history of cough of yellowish productive sputum, headache, body aches, difficulty breathing. In the emergency room, she was noted to be flu positive. She complains of chest pain with coughing. She also endorses diarrhea that started last night, loose bowel movements, nonbloody, non-mucoid. She endorses generalized body ache and sweats. At home, she has a sick grandson who was also noted to be flu positive recently. influenza A with mild chronic obstructive pulmonary disease exacerbation. 5days of Tamiflu, oxygen as needed, DuoNeb standing, albuterol as needed. s/p short course of prednisone as well. Mild COPD exacerbation. due to influenza. s/p short course of prednisone, nebs. o2 sat >90%. cxr neg. white count reviewed lumbar radiculopathy with h/o lumbar spine fusion in [place], [place] years ago pain mgt:recommended cymbalta and gabapentin qhs. reviewed right hip xrayand mri ls spine and cervical spine Chronic kidney disease stage III, stable at baseline. Hyperlipidemia. Continue pravastatin. Diabetes with nephropathy. increased 70/30 humulin for better glycemic control. consistent carbs diet and [facility] protocol coverage insulin sliding scale. Depression. Continue Effexor. Hypertension. Continue chlorthalidone. disposition: awaiting physical therapy clearance . VS, I&O, 24H, [facility] Vital Signs/I&O Vital Signs Date Time Temp Pulse Resp B/P (MAP) Pulse Ox O2 Delivery O2 Flow Rate FiO2 06/15/18 09:27 128/72 06/15/18 06:00 97.4 56 20 97 0.5 06/12/18 07:20 Venturi Mask 24 I&O- Last 24 Hours up to 6 AM 06/15/18 06:00 Intake Total 1020 ml Output Total 0 ml Balance 1020 ml Laboratory Data 24H LABS Laboratory Tests 2 06/14/18 12:29: Bedside Glucose (Misc Panel) 247H 06/14/18 17:08: Bedside Glucose (Misc Panel) 276H 06/14/18 20:02: Bedside Glucose (Misc Panel) 338H 06/15/18 05:26: Nucleated Red Blood Cells % (auto) 0.0, Anion Gap 9, Glomerular Filtration Rate 40.4L, Blood Urea Nitrogen 37H, Creatinine 1.39H, Sodium Level 140, Potassium Level 3.8, Chloride Level 105, Carbon Dioxide Level 26, Calcium Level 9.1 CBC/BMP Laboratory Tests 06/15/18 05:26 Red Blood Count 3.89 L, Mean Corpuscular Volume 86.9, Mean Corpuscular Hemoglobin 28.8, Mean Corpuscular Hemoglobin Concent 33.1, Red Cell Distribution Width 12.8, Calcium Level 9.1 Microbiology Microbiology 06/11/18 Blood Culture - Preliminary, Resulted No Growth after 72 hours. All specime... BETSY MARTINEZ MD Jun 15, 2018 11:15
[2018-06-15] MEDS: ACETAMINOPHEN TAB 650MG DOSE (2X325MG) PO PRN (11:44)
[2018-06-15 14:00] VITALS: BP 127/60
[2018-06-15] MEDS: GABAPENTIN 100 MG CAP PO SCH (21:27)
[2018-06-15 22:00] VITALS: BP 130/58
[2018-06-16] MEDS: IPRATROPIUM 0.5MG/ALBUTEROL 2.5MG INH SOL UD 3ML (DUONEB)(J7620) NEB SCH ×6 (03:35→23:57)
[2018-06-16] MEDS: HEPARIN SOD (PORCINE) 5000 UNITS/ML VIAL SC SCH ×3 (05:20→20:50)
[2018-06-16 05:54] LABS: HEMATOCRIT 33.5 % (36.0-47.0); HEMOGLOBIN 10.8 g/dl (12.0-15.5); MEAN CORPUSCULAR HEMOGLOBIN 28.5 pg (27.0-33.0); MEAN CORPUSCULAR HGB CONC 32.2 g/dl (32.0-36.5); MEAN CORPUSCULAR VOLUME 88.4 fl (80.0-96.0); PLATELET COUNT, AUTOMATED 270 10^3/uL (150-450); RED BLOOD COUNT 3.79 10^6/uL (4.00-5.40); WHITE BLOOD COUNT 6.8 10^3/uL (4.0-10.0)
[2018-06-16 06:00] VITALS: BP 111/58
[2018-06-16 06:21] LABS: CALCIUM LEVEL 8.9 MG/DL (8.8-10.2); CREATININE FOR GFR 1.38 MG/DL (0.55-1.30); GLOMERULAR FILTRATION RATE 40.7 (>45)
[2018-06-16] MEDS: MOM 30ML SUSPENSION UDC PO PRN (08:26)
[2018-06-16] MEDS ORDERED: HumuLIN (NovoLIN)70/30 INSULIN INJ PER UNIT SC SCH (09:00)
[2018-06-16] MEDS: PRAVASTATIN 20 MG TAB PO SCH (09:33)
[2018-06-16] MEDS: OSELTAMIVIR PHOSPHATE 75 MG CAP (TAMIFLU) PO SCH ×2 (09:33→20:49)
[2018-06-16] MEDS: FENOFIBRATE 145 MG TAB (TRICOR) PO SCH (09:33)
[2018-06-16] MEDS: CHLORTHALIDONE 25 MG TAB PO SCH (09:34)
[2018-06-16] MEDS: LISINOPRIL 5 MG TAB PO SCH (09:34)
[2018-06-16] MEDS: POTASSIUM CHLORIDE 10 MEQ SR TABLET PO SCH ×2 (09:34→20:49)
[2018-06-16] MEDS: HumaLOG INSULIN (NovoLOG) PER UNIT SC SCH ×4 (09:35→20:51)
[2018-06-16] MEDS: FLUTICASONE PROP 0.05% NASAL SPRAY 16 GM (FLONASE) NARES SCH (09:35)
[2018-06-16] MEDS: DULoxetine 20 MG CAP (CYMBALTA) PO SCH (09:36)
[2018-06-16] MEDS ORDERED: MOM 30ML SUSPENSION UDC PO PRN (13:15)
--- NOTE | 2018-06-16 13:15 | IPNPDOC ---
Date Seen The patient was seen on 06/16/18. Progress Note SUBJECTIVE: She c/o lower quadrant abd pain with some nausea this morning. no fever or vomiting. denies dysuria, urgency, frequency, flank pain, or chills. KUB pending. pt has not had a bowel movement. bowel regimen and iv zofran given. Pt says she still feels week, and has not passed HSE by physical therapy most likely requiring a few more sessions. Pain mgt recommended gabapentin qhs and cymbalta. effexor discontinued. PHYSICAL EXAM: VITALS : PLS SEE BELOW General: Obese, in no apparent distress. Head is normocephalic, atraumatic Eyes: Extraocular movements are intact. Pupils equal, round, reactive to light. Neck is supple. No jugular venous pressure (JVP). Lungs: Diminished breath sounds. No crackles or wheezes. Cardiovascular: Regular rate and rhythm. Normal S1, S2. No murmurs, gallops, or rubs. Abdomen: Soft, obese, suprapubic tenderness nondistended. Positive bowel sounds. No rebound, no guarding. Extremities: 1+ edema. No calf tenderness. unsteady gait. unable to perform SLR test due to pain. Skin: Intact. No rashes, lesions, or breakdown. Neurological: Alert and oriented times three. No focal deficits appreciated on the exam. LABORATORY DATA, IMAGING STUDIES, MICROBIOLOGY : REVIEWED. PLS SEE BELOW LABS AND IMAGING: Done in the emergency room: White count of 8, hemoglobin and hematocrit of 12 over 36, platelet count of 288, blood gas 7.5, 30, 183, 24, 99. Chemistries: BUN and creatinine of 24 over 1.44, baseline creatinine of around 1.4. Rapid flu: Influenza A is positive. CT of the chest shows no acute infiltrate. ASSESSMENT AND PLAN:ASSESSMENT AND PLAN: The patient is a 67-year-old female with significant past medical history of hyperlipidemia, chronic kidney disease stage III, chronic obstructive pulmonary disease (COPD), asthma, diabetes, depression, hypertension, obstructive sleep apnea - on continuous positive airway pressure (CPAP), morbid obesity. She presents to the emergency room with a one-day history of cough of yellowish productive sputum, headache, body aches, difficulty breathing. In the emergency room, she was noted to be flu positive. She complains of chest pain with coughing. She also endorses diarrhea that started last night, loose bowel movements, nonbloody, non-mucoid. She endorses generalized body ache and sweats. At home, she has a sick grandson who was also noted to be flu positive recently. influenza A with mild chronic obstructive pulmonary disease exacerbation. 5days of Tamiflu, oxygen as needed, DuoNeb standing, albuterol as needed. s/p short course of prednisone as well. Mild COPD exacerbation. due to influenza. s/p short course of prednisone, nebs. o2 sat >90%. cxr neg. white count reviewed Abdominal pain kub checked. bowel regimen. check ua. lumbar radiculopathy with h/o lumbar spine fusion in [place], [place] years ago pain mgt:recommended cymbalta and gabapentin qhs. reviewed right hip xrayand mri ls spine and cervical spine Chronic kidney disease stage III, stable at baseline. Hyperlipidemia. Continue pravastatin. Diabetes with nephropathy. increased 70/30 humulin for better glycemic control. consistent carbs diet and [facility] protocol coverage insulin sliding scale. Depression. Continue Effexor. Hypertension. Continue chlorthalidone. disposition: awaiting physical therapy clearance . VS, I&O, 24H, [facility] Vital Signs/I&O Vital Signs Date Time Temp Pulse Resp B/P (MAP) Pulse Ox O2 Delivery O2 Flow Rate FiO2 06/16/18 09:34 111/58 06/16/18 06:00 97.3 58 20 99 06/15/18 06:00 0.5 06/12/18 07:20 Venturi Mask 24 I&O- Last 24 Hours up to 6 AM 06/16/18 06:00 Intake Total 1090 ml Output Total 1000 ml Balance 90 ml Laboratory Data 24H LABS Laboratory Tests 2 06/15/18 16:19: Bedside Glucose (Misc Panel) 330H 06/15/18 19:50: Bedside Glucose (Misc Panel) 365H 06/16/18 05:44: Nucleated Red Blood Cells % (auto) 0.0, Anion Gap 7L, Glomerular Filtration Rate 40.7L, Blood Urea Nitrogen 39H, Creatinine 1.38H, Sodium Level 140, Potassium Level 4.0, Chloride Level 107, Carbon Dioxide Level 26, Calcium Level 8.9 06/16/18 11:27: Bedside Glucose (Misc Panel) 298H CBC/BMP Laboratory Tests 06/16/18 05:44 Red Blood Count 3.79 L, Mean Corpuscular Volume 88.4, Mean Corpuscular Hemoglobin 28.5, Mean Corpuscular Hemoglobin Concent 32.2, Red Cell Distribution Width 12.7, Calcium Level 8.9 Microbiology Microbiology 06/11/18 Blood Culture - Preliminary, Resulted No Growth after 72 hours. All specime... BETSY MARTINEZ MD Jun 16, 2018 13:15
[2018-06-16] MEDS ORDERED: MOM 30ML SUSPENSION UDC PO ONE (13:30)
[2018-06-16 14:00] VITALS: BP 126/58
--- NOTE | 2018-06-16 14:17 | REP ---
Clinical: Generalized abdominal pain. Technique: Two supine views of the abdomen and pelvis. Findings: Moderate fecal stasis suggested without acute obstruction or perforation. No organomegaly. No abnormal calcifications. Skeletal structures demonstrate age-related degenerative changes primarily involving the visualized thoracolumbar spine and bilateral hips. Impression: Moderate fecal stasis without obstruction or perforation. Electronically Signed by Hussein Barbosa MD 06/16/2018 02:09 P
[2018-06-16] MEDS: GABAPENTIN 100 MG CAP PO SCH (20:49)
[2018-06-16] MEDS: HumuLIN (NovoLIN)70/30 INSULIN INJ PER UNIT SC SCH (20:50)
[2018-06-16 22:00] VITALS: BP 134/64
[2018-06-17] MEDS: IPRATROPIUM 0.5MG/ALBUTEROL 2.5MG INH SOL UD 3ML (DUONEB)(J7620) NEB SCH ×6 (04:51→23:55)
[2018-06-17] MEDS: HEPARIN SOD (PORCINE) 5000 UNITS/ML VIAL SC SCH ×3 (05:47→21:50)
[2018-06-17 06:00] VITALS: BP 140/69
[2018-06-17 06:00] LABS: HEMATOCRIT 33.3 % (36.0-47.0); HEMOGLOBIN 10.9 g/dl (12.0-15.5); MEAN CORPUSCULAR HEMOGLOBIN 29.1 pg (27.0-33.0); MEAN CORPUSCULAR HGB CONC 32.7 g/dl (32.0-36.5); PLATELET COUNT, AUTOMATED 257 10^3/uL (150-450); RED BLOOD COUNT 3.74 10^6/uL (4.00-5.40); WHITE BLOOD COUNT 9.2 10^3/uL (4.0-10.0)
[2018-06-17 06:24] LABS: CALCIUM LEVEL 9.1 MG/DL (8.8-10.2); CREATININE FOR GFR 1.56 MG/DL (0.55-1.30); GLOMERULAR FILTRATION RATE 35.3 (>45)
[2018-06-17] MEDS: HumaLOG INSULIN (NovoLOG) PER UNIT SC SCH ×4 (07:26→21:33)
[2018-06-17] MEDS: HumuLIN (NovoLIN)70/30 INSULIN INJ PER UNIT SC SCH ×2 (07:27→21:51)
[2018-06-17] MEDS: CHLORTHALIDONE 25 MG TAB PO SCH (08:52)
[2018-06-17] MEDS: PRAVASTATIN 20 MG TAB PO SCH (08:52)
[2018-06-17] MEDS: OSELTAMIVIR PHOSPHATE 75 MG CAP (TAMIFLU) PO SCH ×2 (08:52→20:43)
[2018-06-17] MEDS: FENOFIBRATE 145 MG TAB (TRICOR) PO SCH (08:52)
[2018-06-17] MEDS: DULoxetine 20 MG CAP (CYMBALTA) PO SCH (08:52)
[2018-06-17] MEDS: POTASSIUM CHLORIDE 10 MEQ SR TABLET PO SCH ×2 (08:53→20:43)
[2018-06-17] MEDS: FLUTICASONE PROP 0.05% NASAL SPRAY 16 GM (FLONASE) NARES SCH (08:53)
[2018-06-17] MEDS: LISINOPRIL 5 MG TAB PO SCH (08:53)
[2018-06-17 14:00] VITALS: BP 140/62
--- NOTE | 2018-06-17 15:47 | IPNPDOC ---
Date Seen The patient was seen on 06/17/18. Progress Note SUBJECTIVE: still c/o lower quadrant abd pa.no fever or vomiting. denies dysuria, urgency, frequency, flank pain, or chills. KUB :fecal stasis UA unremarkable, urine cx pending. pt has not had a bowel movement. bowel regimen and iv zofran given. Pt says she still feels week, and has not passed HSE by physical therapy most likely requiring a few more sessions. Pain mgt recommended gabapentin qhs and cymbalta. effexor discontinued. PHYSICAL EXAM: VITALS : PLS SEE BELOW General: Obese, in no apparent distress. Head is normocephalic, atraumatic Eyes: Extraocular movements are intact. Pupils equal, round, reactive to light. Neck is supple. No jugular venous pressure (JVP). Lungs: Diminished breath sounds. No crackles or wheezes. Cardiovascular: Regular rate and rhythm. Normal S1, S2. No murmurs, gallops, or rubs. Abdomen: Soft, obese, suprapubic tenderness nondistended. Positive bowel sounds. No rebound, no guarding. Extremities: 1+ edema. No calf tenderness. unsteady gait. unable to perform SLR test due to pain. Skin: Intact. No rashes, lesions, or breakdown. Neurological: Alert and oriented times three. No focal deficits appreciated on the exam. LABORATORY DATA, IMAGING STUDIES, MICROBIOLOGY : REVIEWED. PLS SEE BELOW LABS AND IMAGING: Done in the emergency room: White count of 8, hemoglobin and hematocrit of 12 over 36, platelet count of 288, blood gas 7.5, 30, 183, 24, 99. Chemistries: BUN and creatinine of 24 over 1.44, baseline creatinine of around 1.4. Rapid flu: Influenza A is positive. CT of the chest shows no acute infiltrate. ASSESSMENT AND PLAN:ASSESSMENT AND PLAN: The patient is a 67-year-old female with significant past medical history of hyperlipidemia, chronic kidney disease stage III, chronic obstructive pulmonary disease (COPD), asthma, diabetes, depression, hypertension, obstructive sleep apnea - on continuous positive airway pressure (CPAP), morbid obesity. She presents to the emergency room with a one-day history of cough of yellowish productive sputum, headache, body aches, difficulty breathing. In the emergency room, she was noted to be flu positive. She complains of chest pain with coughing. She also endorses diarrhea that started last night, loose bowel movements, nonbloody, non-mucoid. She endorses generalized body ache and sweats. At home, she has a sick grandson who was also noted to be flu positive recently. influenza A with mild chronic obstructive pulmonary disease exacerbation. 5days of Tamiflu, oxygen as needed, DuoNeb standing, albuterol as needed. s/p short course of prednisone as well. Mild COPD exacerbation. due to influenza. s/p short course of prednisone, nebs. o2 sat >90%. cxr neg. white count reviewed Abdominal pain kub checked. bowel regimen. check ua. lumbar radiculopathy with h/o lumbar spine fusion in [place], [place] years ago pain mgt:recommended cymbalta and gabapentin qhs. reviewed right hip xrayand mri ls spine and cervical spine Chronic kidney disease stage III, stable at baseline. Hyperlipidemia. Continue pravastatin. Diabetes with nephropathy. increased 70/30 humulin for better glycemic control. consistent carbs diet and [facility] protocol coverage insulin slidin g scale. Depression. Continue Effexor. Hypertension. Continue chlorthalidone. disposition: awaiting physical therapy clearance . VS, I&O, 24H, Fishbone Vital Signs/I&O Vital Signs Date Time Temp Pulse Resp B/P (MAP) Pulse Ox O2 Delivery O2 Flow Rate FiO2 06/16/18 22:00 97.6 84 20 134/64 (87) 95 06/15/18 06:00 0.5 06/12/18 07:20 Venturi Mask 24 I&O- Last 24 Hours up to 6 AM 06/17/18 06:00 Intake Total 2570 ml Output Total 3500 ml Balance -930 ml Laboratory Data 24H LABS Laboratory Tests 2 06/16/18 11:27: Bedside Glucose (Misc Panel) 298H 06/16/18 16:20: Urine Color YELLOW, Urine Appearance HAZY, Urine pH 7.0, Urine Specific Metcalfe 1.017, Urine Protein NEGATIVE, Urine Glucose (UA) 1+H, Urine Ketones NEGATIVE, Urine Blood NEGATIVE, Urine Nitrite POSITIVEH, Urine Bilirubin NEGATIVE, Urine Urobilinogen 0.2, Urine Leukocyte Esterase NEGATIVE, Urine WBC (Auto) 4H, Urine RBC (Auto) 0, Urine Hyaline Casts (Auto) 0, Urine Bacteria (Auto) 3+H, Urine Squamous Epithelial Cells 0, Urine Sperm (Auto) 06/16/18 16:25: Bedside Glucose (Misc Panel) 318H 06/16/18 20:37: Bedside Glucose (Misc Panel) 353H 06/17/18 05:47: Nucleated Red Blood Cells % (auto) 0.0 CBC/BMP Laboratory Tests 06/17/18 05:47 Red Blood Count 3.74 L, Mean Corpuscular Volume 89.0, Mean Corpuscular Hemoglobin 29.1, Mean Corpuscular Hemoglobin Concent 32.7, Red Cell Distribution Width 12.7 Microbiology Microbiology 06/11/18 Blood Culture - Final, Complete NO GROWTH AFTER 5 DAYS 06/16/18 Urine Culture, Received Pending BETSY MARTINEZ MD Jun 17, 2018 06:01
[2018-06-17] MEDS: GABAPENTIN 100 MG CAP PO SCH (20:43)
[2018-06-17] MEDS ORDERED: HumaLOG INSULIN (NovoLOG) PER UNIT SC ONE (21:30)
[2018-06-17] MEDS: ALBUTEROL SULFATE 2.5 MG/0.5 ML INH NEB SOLN NEB PRN (21:50)
[2018-06-17] MEDS: ACETAMINOPHEN TAB 650MG DOSE (2X325MG) PO PRN (21:54)
[2018-06-17] MEDS ORDERED: methylPREDNISolone INJ 125 MG/2 ML VIAL (J2930) IV ONE (22:00)
[2018-06-18] MEDS: IPRATROPIUM 0.5MG/ALBUTEROL 2.5MG INH SOL UD 3ML (DUONEB)(J7620) NEB SCH ×5 (03:20→21:08)
[2018-06-18] MEDS: HEPARIN SOD (PORCINE) 5000 UNITS/ML VIAL SC SCH ×3 (05:33→22:08)
[2018-06-18 06:00] VITALS: BP 143/70
--- NOTE | 2018-06-18 06:04 | ECGEPIP ---
Stationary ECG Study [facility] Test Date: 2018-06-17 Pat Name: MANJU MILLS Department: Room: [place] [address] Gender: F Can Piler: : [id number] Requested By: NICA Johnson Order Number: [id number] Reading MD: Neida Escobar Measurements Intervals [place] Rate: 72 P: 37 NC: 210 QRS: -5 QRSD: 93 T: 23 QT: 382 QTc: 421 Interpretive Statements SINUS RHYTHM WITH FIRST DEGREE AV BLOCK VOLTAGE CRITERIA FOR LVH Left axis deviation MILD REPOLAR CHANGES RATE FASTER C/W1/30/19 1ST DEGREE BLOCK NEW Electronically Signed On 06-18-2018 6:04:32 EDT by Neida Escobar
[2018-06-18 06:10] LABS: HEMATOCRIT 34.6 % (36.0-47.0); HEMOGLOBIN 11.2 g/dl (12.0-15.5); MEAN CORPUSCULAR HEMOGLOBIN 28.4 pg (27.0-33.0); MEAN CORPUSCULAR HGB CONC 32.4 g/dl (32.0-36.5); MEAN CORPUSCULAR VOLUME 87.6 fl (80.0-96.0); PLATELET COUNT, AUTOMATED 290 10^3/uL (150-450); RED BLOOD COUNT 3.95 10^6/uL (4.00-5.40)
[2018-06-18 06:34] LABS: CALCIUM LEVEL 9.5 MG/DL (8.8-10.2); CREATININE FOR GFR 1.69 MG/DL (0.55-1.30); GLOMERULAR FILTRATION RATE 32.2 (>45); POTASSIUM SERUM 4.4 MEQ/L (3.5-5.1)
[2018-06-18] MEDS: HumuLIN (NovoLIN)70/30 INSULIN INJ PER UNIT SC SCH ×2 (08:36→22:12)
[2018-06-18] MEDS: HumaLOG INSULIN (NovoLOG) PER UNIT SC SCH ×4 (08:36→22:09)
[2018-06-18] MEDS: PRAVASTATIN 20 MG TAB PO SCH (08:37)
[2018-06-18] MEDS: CHLORTHALIDONE 25 MG TAB PO SCH (08:37)
[2018-06-18] MEDS: FENOFIBRATE 145 MG TAB (TRICOR) PO SCH (08:37)
[2018-06-18] MEDS: POTASSIUM CHLORIDE 10 MEQ SR TABLET PO SCH (08:37)
[2018-06-18] MEDS: DULoxetine 20 MG CAP (CYMBALTA) PO SCH (08:37)
[2018-06-18] MEDS: LISINOPRIL 5 MG TAB PO SCH (08:37)
[2018-06-18] MEDS: FLUTICASONE PROP 0.05% NASAL SPRAY 16 GM (FLONASE) NARES SCH (08:38)
[2018-06-18] MEDS: ACETAMINOPHEN TAB 650MG DOSE (2X325MG) PO PRN (08:56)
[2018-06-18] MEDS: MOM 30ML SUSPENSION UDC PO PRN (08:56)
--- NOTE | 2018-06-18 09:29 | IPNPDOC ---
Date Seen The patient was seen on 06/18/18. Progress Note SUBJECTIVE: Due to worsening creatinine, chlorthalidone and lisinopril discontinued. norvasc 5 mg bid for hypertension until creatinine is back to baseline. no c/o diarrhea. still c/o lower quadrant abd pa.no fever or vomiting. denies dysuria, urgency, frequency, flank pain, or chills. KUB :fecal stasis UA unremarkable, urine cx pending. pt has not had a bowel movement. bowel regimen and iv zofran given. Pt says she still feels week, and has not passed HSE by physical therapy most likely requiring a few more sessions. Pain mgt recommended gabapentin qhs and cymbalta. effexor discontinued. PHYSICAL EXAM: VITALS : PLS SEE BELOW General: Obese, in no apparent distress. Head is normocephalic, atraumatic Eyes: Extraocular movements are intact. Pupils equal, round, reactive to light. Neck is supple. No jugular venous pressure (JVP). Lungs: Diminished breath sounds. No crackles or wheezes. Cardiovascular: Regular rate and rhythm. Normal S1, S2. No murmurs, gallops, or rubs. Abdomen: Soft, obese, suprapubic tenderness nondistended. Positive bowel sounds. No rebound, no guarding. Extremities: 1+ edema. No calf tenderness. unsteady gait. unable to perform SLR test due to pain. Skin: Intact. No rashes, lesions, or breakdown. Neurological: Alert and oriented times three. No focal deficits appreciated on the exam. LABORATORY DATA, IMAGING STUDIES, MICROBIOLOGY : REVIEWED. PLS SEE BELOW LABS AND IMAGING: Done in the emergency room: White count of 8, hemoglobin and hematocrit of 12 over 36, platelet count of 288, blood gas 7.5, 30, 183, 24, 99. Chemistries: BUN and creatinine of 24 over 1.44, baseline creatinine of around 1.4. Rapid flu: Influenza A is positive. CT of the chest shows no acute infiltrate. ASSESSMENT AND PLAN:ASSESSMENT AND PLAN: The patient is a 67-year-old female with significant past medical history of hyperlipidemia, chronic kidney disease stage III, chronic obstructive pulmonary disease (COPD), asthma, diabetes, depression, hypertension, obstructive sleep apnea - on continuous positive airway pressure (CPAP), morbid obesity. She presents to the emergency room with a one-day history of cough of yellowish productive sputum, headache, body aches, difficulty breathing. In the emergency room, she was noted to be flu positive. She compl ains of chest pain with coughing. She also endorses diarrhea that started last night, loose bowel movements, nonbloody, non-mucoid. She endorses generalized body ache and sweats. At home, she has a sick grandson who was also noted to be flu positive recently. influenza A with mild chronic obstructive pulmonary disease exacerbation.s/p 5days of Tamiflu, oxygen as needed, DuoNeb standing, albuterol as needed. s/p short course of prednisone as well. Mild COPD exacerbation. due to influenza. s/p solumedrol. on short course of tapered prednisone, nebs. o2 sat >90%. cxr neg. white count reviewed Abdominal pain kub checked. bowel regimen. ua negative lumbar radiculopathy with h/o lumbar spine fusion in [place], [place] years ago pain mgt:recommended cymbalta and gabapentin qhs. reviewed right hip xrayand mri ls spine and cervical spine acute on Chronic kidney disease stage III, increased from baseline chlorthalidone and lisinopril held due to worsening creatinine. norvasc bid for bp control resume once back to baseline creatinine Hyperlipidemia. Continue pravastatin. Diabetes with nephropathy. increased 70/30 humulin for better glycemic control. consistent carbs diet and [facility] protocol coverage insulin sliding scale. Depression. Continue Effexor. Hypertension. chlorthalidone and lisinopril held due to worsening creatinine. norvasc bid for bp control resume once back to baseline creatinine disposition: awaiting physical therapy clearance . VS, I&O, 24H, [facility] Vital Signs/I&O Vital Signs Date Time Temp Pulse Resp B/P (MAP) Pulse Ox O2 Delivery O2 Flow Rate FiO2 06/18/18 06:00 98.3 63 14 143/70 (94) 97 06/15/18 06:00 0.5 06/12/18 07:20 Venturi Mask 24 I&O- Last 24 Hours up to 6 AM 06/18/18 06:00 Intake Total 2560 ml Output Total 4700 ml Balance -2140 ml Laboratory Data 24H LABS Laboratory Tests 2 06/17/18 13:15: Bedside Glucose (Misc Panel) 191H 06/17/18 17:22: Bedside Glucose (Misc Panel) 426H 06/17/18 20:13: Bedside Glucose (Misc Panel) 505*H 06/17/18 20:40: Bedside Glucose Confirm (Misc) 457*H 06/18/18 05:35: Nucleated Red Blood Cells % (auto) 0.0, Anion Gap 7L, Glomerular Filtration Rate 32.2L, Blood Urea Nitrogen 33H, Creatinine 1.69H, Sodium Level 136, Potassium Level 4.4, Chloride Level 105, Carbon Dioxide Level 24, Calcium Level 9.5 CBC/BMP Laboratory Tests 06/18/18 05:35 Red Blood Count 3.95 L, Mean Corpuscular Volume 87.6, Mean Corpuscular Hemoglobin 28.4, Mean Corpuscular Hemoglobin Concent 32.4, Red Cell Distribution Width 12.5, Calcium Level 9.5 Microbiology Microbiology 06/11/18 Blood Culture - Final, Complete NO GROWTH AFTER 5 DAYS 06/16/18 Urine Culture - Final, Complete Escherichia Coli BETSY MARTINEZ MD Jun 18, 2018 08:36
[2018-06-18] MEDS ORDERED: FLEET OIL RETENTION ENEMA PR ONE (10:00)
[2018-06-18] MEDS ORDERED: methylPREDNISolone INJ 125 MG/2 ML VIAL (J2930) IV SCH (10:00)
[2018-06-18] MEDS ORDERED: SENOKOT S TAB PO ONE (10:00)
[2018-06-18] MEDS ORDERED: MAGNESIUM CITRATE 300 ML BTL PO ONE (10:00)
--- NOTE | 2018-06-18 10:40 | REP ---
Acute abdominal series four views including upright PA chest, upright abdomen and two supine views of the abdomen: PA chest: Comparison is 06/11/2018. The lung xiao are clear. Cardiac size is normal. The samantha, mediastinum, skeletal structures are unremarkable. There is no free subdiaphragmatic air. Impression: Negative PA chest. There is no interval change. Abdomen, supine upright views: The bowel gas pattern is normal. There are no calcifications. There is abundant fecal residue throughout the colon. There is multilevel lumbar degenerative disc disease. There are bilateral laminectomies lumbar spine at L5 . Electronically Signed by Harry Helm MD 06/18/2018 10:31 A
[2018-06-18] MEDS ORDERED: HUMU70IN SC ×2 (11:07)
[2018-06-18] MEDS ORDERED: AMLO5TAB6 PO (11:07)
[2018-06-18] MEDS ORDERED: INSUHUMDS SC ×2 (11:08)
[2018-06-18] MEDS: CIPROFLOXACIN 250 MG TAB PO SCH ×2 (12:18→17:32)
[2018-06-18] MEDS: amLODIPine 5 MG TAB PO SCH ×2 (12:22→22:07)
[2018-06-18 14:00] VITALS: BP 143/66
[2018-06-18 22:00] VITALS: BP 132/61
[2018-06-18] MEDS: SENOKOT S TAB PO SCH (22:07)
[2018-06-18] MEDS: GABAPENTIN 100 MG CAP PO SCH (22:08)
[2018-06-19] MEDS: IPRATROPIUM 0.5MG/ALBUTEROL 2.5MG INH SOL UD 3ML (DUONEB)(J7620) NEB SCH ×6 (00:56→20:41)
[2018-06-19 02:00] VITALS: BP 145/68
[2018-06-19] MEDS: CIPROFLOXACIN 250 MG TAB PO SCH ×2 (05:34→17:14)
[2018-06-19] MEDS: HEPARIN SOD (PORCINE) 5000 UNITS/ML VIAL SC SCH ×3 (05:34→21:14)
[2018-06-19 06:00] VITALS: BP 117/57
[2018-06-19] MEDS: HumaLOG INSULIN (NovoLOG) PER UNIT SC SCH ×4 (07:18→21:13)
[2018-06-19] MEDS: HumuLIN (NovoLIN)70/30 INSULIN INJ PER UNIT SC SCH ×2 (07:19→21:14)
--- NOTE | 2018-06-19 08:39 | REP ---
Radionuclide pulmonary ventilation / perfusion scan: The studies performed with 1.0 mCi of technetium 99 DTPA aerosol followed by intravenous MAA labeled with 5.5 mCi of technetium 99m. Comparison is 04/04/2018. There is a comparison chest radiograph dated 06/18/2018. There is a matched VQ defect on the RPO images in the right upper lobe compatible with low probability of pulmonary embolus. No other perfusion or ventilation defects are identified. Impression: Low probability of pulmonary embolus. Electronically Signed by Harry Helm MD 06/19/2018 08:31 A
[2018-06-19] MEDS: predniSONE 20 MG TAB PO SCH (08:46)
[2018-06-19] MEDS: amLODIPine 5 MG TAB PO SCH ×2 (08:47→21:12)
[2018-06-19] MEDS: FLUTICASONE PROP 0.05% NASAL SPRAY 16 GM (FLONASE) NARES SCH (08:48)
[2018-06-19] MEDS: DULoxetine 20 MG CAP (CYMBALTA) PO SCH (08:48)
[2018-06-19] MEDS: FENOFIBRATE 145 MG TAB (TRICOR) PO SCH (08:48)
[2018-06-19] MEDS: PRAVASTATIN 20 MG TAB PO SCH (08:48)
[2018-06-19] MEDS: SENOKOT S TAB PO SCH ×2 (08:48→21:01)
--- NOTE | 2018-06-19 12:30 | IPNPDOC ---
Text Note Date of Service The patient was seen on 06/19/18. NOTE Subjective: Patient is a 67-year-old female with a PMHx of HTN, DM2, DLP, BERYL on CPAP, COPD/Asthma, CKD3, Depression, Morbid obestiy, who presented to the emergency room with history of SOB associated with cough and yellow sputum production. At home patient had a sick grandson who had influenza. In the emergency room, patient was found to be influenza positive and was admitted to the hospitalist service for further evaluation and treatment. Patient was seen and examined at the bedside. Currently patient notes that her breathing is doing better. They deny nausea, vomiting, abdominal pain, constipation, diarrhea or discomfort with urination. They deny chest pain, shortness of breath, palpitations. Objective: Vitals (See below) General: Lying in bed, no acute distress, comfortable, AAOx3 HEENT: NC, AT CVS: RRR, +S1S2 Lungs: Fair air entry b/l, -w/r/r Abdomen: Soft, ND, NT Extremities: - Edema, - Calf tenderness Assessment and plan: SOB - likely 2/2 Influenza with mild COPD exacerbation - Has been tapered off, submental oxygen - CXR 06/11: No acute cardiopulmonary process appreciated. - V/Q Scan 06/19: Low probability of pulmonary embolus. - s/p Tamiflu x 5 days - c/ inhaled therapy as needed - c/w Prednisone - will continue to taper; s/p Solumedrol Mild COPD exacerbation - See above Suspected UTI - Patient has noted urinary frequency - UA equivocal - Urine culture 06/16: E. Coli - c/w Ciprofloxacin (Day #2) s/p Abdominal pain - KUB 06/16: Moderate fecal stasis without obstruction or perforation. - Abdominal flat plate 06/18: The bowel gas pattern is normal. There are no calcifications. There is abundant fecal residue throughout the colon. There is multilevel lumbar degenerative disc disease. There are bilateral laminectomies lumbar spine at L5 . - c/w Bowel regimen as ordered Lumbar radiculopathy w/ Hx of Lumbar Spinal fusion ([place], [place] - several years ago) - XR R Hip 06/13/18: Osteoarthritis at the hip and tendon insertion site spurring may reflect tendonitis. No acute bony abnormality. - Lumbar Spine MRI 06/13/18: Severe degenerative spondylosis of the lumbar spine. - Cervical Spine MRI 06/13/18: Degenerative spondylosis of the cervical spine with mild spinal stenosis and variable degrees of bilateral foraminal stenosis as described above. - c/w Duloxetine and Gabapentin - as per pain management recommendations BERYL on CPAP - May allow home CPAP / BIPAP use HTN - BP well controlled - Will continue to HOLD Lisinopril and Chlorthalidone - c/w Amlodipine DLP - c/w Pravastatin and Fenofibrate DM2 with Nephropathy - c/w ISS and Humalin 70/30 BID Elevation of Cr on CKD3 - Cr baseline of 1.5-1.6 - Cr appears to be at baseline / slightly above - Nephrotoxic medication were discontinued; s/p Chlorthalidone and Lisinopril - Will repeat BMP Depression - c/w Duloxetine Morbid obestiy - complicating medical care Disposition: - Awaiting clearance from physical therapy - May require rehabilitation center prior to discharge home VS,Fishbone, I+O VS, Fishbone, I+O Vital Signs Date Time Temp Pulse Resp B/P (MAP) Pulse Ox O2 Delivery O2 Flow Rate FiO2 06/19/18 08:47 112/54 06/19/18 06:00 98.8 54 17 99 06/15/18 06:00 0.5 I&O- Last 24 Hours up to 6 AM 06/19/18 06:00 Intake Total 2820 ml Output Total 3100 ml Balance -280 ml PAUL ESTRELLA MD Jun 19, 2018 12:30
[2018-06-19 12:53] LABS: BASO % 0.4 % (0.0-1.0); EOS % 0.4 % (0.0-3.0); HEMATOCRIT 34.7 % (36.0-47.0); HEMOGLOBIN 11.7 g/dl (12.0-15.5); LYMPH # 1.7 10^3/uL (1.5-4.5); MEAN CORPUSCULAR HEMOGLOBIN 29.3 pg (27.0-33.0); MEAN CORPUSCULAR HGB CONC 33.7 g/dl (32.0-36.5); MONO # 0.4 10^3/uL (0.0-0.8); MONO % 3.6 % (0.0-5.0); NEUTROPHILS # 8.8 10^3/uL (1.8-7.7); NEUTROPHILS % 79.6 % (36.0-66.0); PLATELET COUNT, AUTOMATED 329 10^3/uL (150-450); RED BLOOD COUNT 3.99 10^6/uL (4.00-5.40); WHITE BLOOD COUNT 11.1 10^3/uL (4.0-10.0)
[2018-06-19 13:18] LABS: CALCIUM LEVEL 9.7 MG/DL (8.8-10.2); CREATININE FOR GFR 1.57 MG/DL (0.55-1.30); GLOMERULAR FILTRATION RATE 35.1 (>45); MAGNESIUM LEVEL 2.4 MG/DL (1.8-2.4); POTASSIUM SERUM 4.4 MEQ/L (3.5-5.1)
[2018-06-19] MEDS: ACETAMINOPHEN TAB 650MG DOSE (2X325MG) PO PRN (15:05)
[2018-06-19] MEDS: GABAPENTIN 100 MG CAP PO SCH (21:12)
[2018-06-19 22:00] VITALS: BP 160/70
[2018-06-19 23:51] VITALS: BP 124/60
[2018-06-20] MEDS: IPRATROPIUM 0.5MG/ALBUTEROL 2.5MG INH SOL UD 3ML (DUONEB)(J7620) NEB SCH ×7 (04:00→23:17)
[2018-06-20 06:00] VITALS: BP 150/81
[2018-06-20 06:15] LABS: BASO # 0.1 10^3/uL (0.0-0.2); BASO % 0.5 % (0.0-1.0); EOS # 0.1 10^3/uL (0.0-0.50); EOS % 0.7 % (0.0-3.0); HEMATOCRIT 35.3 % (36.0-47.0); HEMOGLOBIN 11.3 g/dl (12.0-15.5); LYMPH # 3.2 10^3/uL (1.5-4.5); LYMPH % 34.4 % (24.0-44.0); MEAN CORPUSCULAR HEMOGLOBIN 28.4 pg (27.0-33.0); MEAN CORPUSCULAR VOLUME 88.7 fl (80.0-96.0); MONO # 0.6 10^3/uL (0.0-0.8); MONO % 6.8 % (0.0-5.0); NEUTROPHILS # 5.3 10^3/uL (1.8-7.7); NEUTROPHILS % 56.5 % (36.0-66.0); PLATELET COUNT, AUTOMATED 339 10^3/uL (150-450); RED BLOOD COUNT 3.98 10^6/uL (4.00-5.40); WHITE BLOOD COUNT 9.4 10^3/uL (4.0-10.0)
[2018-06-20] MEDS: HEPARIN SOD (PORCINE) 5000 UNITS/ML VIAL SC SCH ×3 (06:22→21:05)
[2018-06-20] MEDS: CIPROFLOXACIN 250 MG TAB PO SCH ×2 (06:22→17:24)
[2018-06-20 06:38] LABS: CALCIUM LEVEL 9.5 MG/DL (8.8-10.2); CREATININE FOR GFR 1.55 MG/DL (0.55-1.30); GLOMERULAR FILTRATION RATE 35.6 (>45); MAGNESIUM LEVEL 2.3 MG/DL (1.8-2.4); POTASSIUM SERUM 3.5 MEQ/L (3.5-5.1)
[2018-06-20] MEDS: HumaLOG INSULIN (NovoLOG) PER UNIT SC SCH ×4 (08:42→21:07)
[2018-06-20] MEDS: PRAVASTATIN 20 MG TAB PO SCH (08:43)
[2018-06-20] MEDS: HumuLIN (NovoLIN)70/30 INSULIN INJ PER UNIT SC SCH ×2 (08:43→21:08)
[2018-06-20] MEDS: FENOFIBRATE 145 MG TAB (TRICOR) PO SCH (08:43)
[2018-06-20] MEDS: predniSONE 20 MG TAB PO SCH (08:43)
[2018-06-20] MEDS: DULoxetine 20 MG CAP (CYMBALTA) PO SCH (08:43)
[2018-06-20] MEDS: SENOKOT S TAB PO SCH ×3 (08:43→21:05)
[2018-06-20] MEDS: amLODIPine 5 MG TAB PO SCH ×2 (08:44→21:06)
[2018-06-20] MEDS: FLUTICASONE PROP 0.05% NASAL SPRAY 16 GM (FLONASE) NARES SCH (08:45)
[2018-06-20 14:00] VITALS: BP 158/75
--- NOTE | 2018-06-20 17:11 | IPNPDOC ---
Text Note Date of Service The patient was seen on 06/20/18. NOTE Subjective: Patient is a 67-year-old female with a PMHx of HTN, DM2, DLP, BERYL on CPAP, COPD/Asthma, CKD3, Depression, Morbid obestiy, who presented to the emergency room with history of SOB associated with cough and yellow sputum production. At home patient had a sick grandson who had influenza. In the emergency room, patient was found to be influenza positive and was admitted to the hospitalist service for further evaluation and treatment. Patient was seen and examined at the bedside. Patient has no new complaints. Denies shortness breath, chest pain, palpitations, cough. Denies any abdominal pain, constipation, diarrhea or discomfort with urination Objective: Vitals (See below) General: Lying in bed, no acute distress, comfortable, AAOx3 HEENT: NC, AT CVS: RRR, +S1S2 Lungs: Air entry is fair bilaterally, without any evidence of wheezing, rhonchi or rales Abdomen: Abdomen remains soft, without any distention or tenderness Extremities: No evidence of lower extremity edema, - Calf tenderness Assessment and plan: SOB - likely 2/2 Influenza with mild COPD exacerbation - Has been tapered off, submental oxygen - CXR 06/11: No acute cardiopulmonary process appreciated. - V/Q Scan 06/19: Low probability of pulmonary embolus. - s/p Tamiflu x 5 days - c/ inhaled therapy as needed - c/w Prednisone; s/p Solumedrol; will reduce dose prednisone Mild COPD exacerbation - See above Suspected UTI - Patient has noted urinary frequency - UA equivocal - Urine culture 06/16: E. Coli - c/w Ciprofloxacin (Day #3) s/p Abdominal pain - KUB 06/16: Moderate fecal stasis without obstruction or perforation. - Abdominal flat plate 06/18: The bowel gas pattern is normal. There are no calcifications. There is abundant fecal residue throughout the colon. There is multilevel lumbar degenerative disc disease. There are bilateral laminectomies lumbar spine at L5 . - c/w Bowel regimen as ordered Lumbar radiculopathy w/ Hx of Lumbar Spinal fusion ([place], [place] - several years ago) - XR R Hip 06/13/18: Osteoarthritis at the hip and tendon insertion site spurring may reflect tendonitis. No acute bony abnormality. - Lumbar Spine MRI 06/13/18: Severe degenerative spondylosis of the lumbar spine. - Cervical Spine MRI 06/13/18: Degenerative spondylosis of the cervical spine with mild spinal stenosis and variable degrees of bilateral foraminal stenosis as described above. - c/w Duloxetine and Gabapentin - as per pain management recommendations BERYL on CPAP - May allow home CPAP / BIPAP use HTN - BP well controlled - Will continue to HOLD Lisinopril and Chlorthalidone - c/w Amlodipine DLP - c/w Pravastatin and Fenofibrate DM2 with Nephropathy - c/w ISS and Humalin 70/30 BID Elevation of Cr on CKD3 - Cr baseline of 1.5-1.6 - Nephrotoxic medication were discontinued; s/p Chlorthalidone and Lisinopril Depression - c/w Duloxetine Morbid obestiy - complicating medical care Disposition: - Awaiting clearance from physical therapy - May require rehabilitation center prior to discharge home VS,Fishbone, I+O VS, Fishbone, I+O Laboratory Tests 06/20/18 05:21 Red Blood Count 3.98 L, Mean Corpuscular Volume 88.7, Mean Corpuscular Hemoglobin 28.4, Mean Corpuscular Hemoglobin Concent 32.0, Red Cell Distribution Width 13.0, Neutrophils (%) (Auto) 56.5, Lymphocytes (%) (Auto) 34.4, Monocytes (%) (Auto) 6.8 H, Eosinophils (%) (Auto) 0.7, Basophils (%) (Auto) 0.5, Neutrophils # (Auto) 5.3, Lymphocytes # (Auto) 3.2, Monocytes # (Auto) 0.6, Eosinophils # (Auto) 0.1, Basophils # (Auto) 0.1, Calcium Level 9.5 Vital Signs Date Time Temp Pulse Resp B/P (MAP) Pulse Ox O2 Delivery O2 Flow Rate FiO2 06/20/18 14:00 96.7 68 18 158/75 (102) 95 06/15/18 06:00 0.5 I&O- Last 24 Hours up to 6 AM 06/20/18 06:00 Intake Total 1320 ml Output Total 5200 ml Balance -3880 ml PAUL ESTRELLA MD Jun 20, 2018 17:11
[2018-06-20] MEDS: NYSTATIN OINTMENT 15 GM TOP SCH (21:04)
[2018-06-20] MEDS: GABAPENTIN 100 MG CAP PO SCH (21:05)
[2018-06-20 22:00] VITALS: BP 138/65
[2018-06-21] MEDS: IPRATROPIUM 0.5MG/ALBUTEROL 2.5MG INH SOL UD 3ML (DUONEB)(J7620) NEB SCH ×5 (04:21→19:45)
[2018-06-21] MEDS: HEPARIN SOD (PORCINE) 5000 UNITS/ML VIAL SC SCH ×3 (05:35→21:14)
[2018-06-21 05:51] LABS: BASO % 0.4 % (0.0-1.0); EOS # 0.1 10^3/uL (0.0-0.50); EOS % 0.5 % (0.0-3.0); HEMOGLOBIN 10.7 g/dl (12.0-15.5); LYMPH % 32.4 % (24.0-44.0); MEAN CORPUSCULAR HEMOGLOBIN 28.3 pg (27.0-33.0); MEAN CORPUSCULAR HGB CONC 32.4 g/dl (32.0-36.5); MEAN CORPUSCULAR VOLUME 87.3 fl (80.0-96.0); MONO # 0.7 10^3/uL (0.0-0.8); MONO % 7.8 % (0.0-5.0); NEUTROPHILS # 5.3 10^3/uL (1.8-7.7); NEUTROPHILS % 57.9 % (36.0-66.0); PLATELET COUNT, AUTOMATED 307 10^3/uL (150-450); RED BLOOD COUNT 3.78 10^6/uL (4.00-5.40); WHITE BLOOD COUNT 9.2 10^3/uL (4.0-10.0)
[2018-06-21 06:00] VITALS: BP 133/67
[2018-06-21 06:13] LABS: CALCIUM LEVEL 9.1 MG/DL (8.8-10.2); CREATININE FOR GFR 1.57 MG/DL (0.55-1.30); GLOMERULAR FILTRATION RATE 35.1 (>45); MAGNESIUM LEVEL 2.2 MG/DL (1.8-2.4); POTASSIUM SERUM 3.6 MEQ/L (3.5-5.1)
[2018-06-21] MEDS: predniSONE 10 MG TAB PO SCH (08:32)
[2018-06-21] MEDS: FENOFIBRATE 145 MG TAB (TRICOR) PO SCH (08:32)
[2018-06-21] MEDS: PRAVASTATIN 20 MG TAB PO SCH (08:32)
[2018-06-21] MEDS: DULoxetine 20 MG CAP (CYMBALTA) PO SCH (08:32)
[2018-06-21] MEDS: amLODIPine 5 MG TAB PO SCH ×2 (08:32→21:18)
[2018-06-21] MEDS: HumaLOG INSULIN (NovoLOG) PER UNIT SC SCH ×4 (08:33→21:00)
[2018-06-21] MEDS: SENOKOT S TAB PO SCH ×2 (08:33→21:13)
[2018-06-21] MEDS: FLUTICASONE PROP 0.05% NASAL SPRAY 16 GM (FLONASE) NARES SCH (08:33)
[2018-06-21] MEDS: NYSTATIN OINTMENT 15 GM TOP SCH ×2 (08:34→21:16)
[2018-06-21] MEDS: HumuLIN (NovoLIN)70/30 INSULIN INJ PER UNIT SC SCH ×2 (10:02→21:15)
[2018-06-21 14:00] VITALS: BP 145/70
--- NOTE | 2018-06-21 15:41 | IPNPDOC ---
Text Note Date of Service The patient was seen on 06/21/18. NOTE Subjective: Patient is a 67-year-old female with a PMHx of HTN, DM2, DLP, BERYL on CPAP, COPD/Asthma, CKD3, Depression, Morbid obestiy, who presented to the emergency room with history of SOB associated with cough and yellow sputum production. At home patient had a sick grandson who had influenza. In the emergency room, patient was found to be influenza positive and was admitted to the hospitalist service for further evaluation and treatment. Patient was seen and examined at the bedside. Currently patient notes that they're anxious to get home. Advised her that she is not yet cleared by physical therapy and may require further sessions before we can safely transition to home. . She denies chest pain, shortness of breath or palpitations. Denies abdominal pain, constipation, diarrhea or discomfort with urination. Objective: Vitals (See below) General: Lying in bed, no acute distress, comfortable, AAOx3 HEENT: NC, AT CVS: RRR, +S1S2 Lungs: Air entry is fair bilaterally, there does not appear to be any evidence of wheezing, rhonchi, rales Abdomen: Abdomen remains soft, no evidence of distention or tenderness Extremities: Lower extremities are without any edema, - Calf tenderness Assessment and plan: SOB - likely 2/2 Influenza with mild COPD exacerbation - Has been tapered off, submental oxygen - CXR 06/11: No acute cardiopulmonary process appreciated. - V/Q Scan 06/19: Low probability of pulmonary embolus. - s/p Tamiflu x 5 days - c/ inhaled therapy as needed - c/w Prednisone; s/p Solumedrol; will continue with current dose of prednisone and reduce again over the next 2-3 days Mild COPD exacerbation - See above Suspected UTI - Patient has noted urinary frequency - UA equivocal - Urine culture 06/16: E. Coli - s/p Ciprofloxacin for 3 day course s/p Abdominal pain - KUB 06/16: Moderate fecal stasis without obstruction or perforation. - Abdominal flat plate 06/18: The bowel gas pattern is normal. There are no calcifications. There is abundant fecal residue throughout the colon. There is multilevel lumbar degenerative disc disease. There are bilateral laminectomies lumbar spine at L5 . - c/w Bowel regimen as ordered Lumbar radiculopathy w/ Hx of Lumbar Spinal fusion ([place], [place] - several years ago) - XR R Hip 06/13/18: Osteoarthritis at the hip and tendon insertion site spurring may reflect tendonitis. No acute bony abnormality. - Lumbar Spine MRI 06/13/18: Severe degenerative spondylosis of the lumbar spine. - Cervical Spine MRI 06/13/18: Degenerative spondylosis of the cervical spine with mild spinal stenosis and variable degrees of bilateral foraminal stenosis as described above. - c/w Duloxetine and Gabapentin - as per pain management recommendations BERYL on CPAP - May allow home CPAP / BIPAP use HTN - BP well controlled - Will continue to HOLD Lisinopril and Chlorthalidone - c/w Amlodipine DLP - c/w Pravastatin and Fenofibrate DM2 with Nephropathy - c/w ISS and Humalin 70/30 BID Elevation of Cr on CKD3 - Cr baseline of 1.5-1.6 - Nephrotoxic medication were discontinued; s/p Chlorthalidone and Lisinopril Depression - c/w Duloxetine Morbid obestiy - complicating medical care Disposition: - Awaiting clearance from physical therapy - Patient was not approved for acute rehabilitation unit. We'll continue to work with physical therapy likely will go home with services VS,Cheryl, I+O VS, Cheryl, I+O Laboratory Tests 06/21/18 05:26 Red Blood Count 3.78 L, Mean Corpuscular Volume 87.3, Mean Corpuscular Hemoglobin 28.3, Mean Corpuscular Hemoglobin Concent 32.4, Red Cell Distribution Width 12.7, Neutrophils (%) (Auto) 57.9, Lymphocytes (%) (Auto) 32.4, Monocytes (%) (Auto) 7.8 H, Eosinophils (%) (Auto) 0.5, Basophils (%) (Auto) 0.4, Neutrophils # (Auto) 5.3, Lymphocytes # (Auto) 3.0, Monocytes # (Auto) 0.7, Eosinophils # (Auto) 0.1, Basophils # (Auto) 0.0, Calcium Level 9.1 Vital Signs Date Time Temp Pulse Resp B/P (MAP) Pulse Ox O2 Delivery O2 Flow Rate FiO2 06/21/18 14:00 96.7 79 22 145/70 (95) 95 06/15/18 06:00 0.5 I&O- Last 24 Hours up to 6 AM 06/21/18 06:00 Intake Total 3240 ml Output Total 4100 ml Balance -860 ml PAUL ESTRELLA MD Jun 21, 2018 15:41
[2018-06-21] MEDS ORDERED: HumaLOG INSULIN (NovoLOG) PER UNIT SC ONE (21:00)
[2018-06-21] MEDS: GABAPENTIN 100 MG CAP PO SCH (21:14)
[2018-06-21] MEDS: ACETAMINOPHEN TAB 650MG DOSE (2X325MG) PO PRN (21:24)
[2018-06-21 22:00] VITALS: BP 132/62
[2018-06-22] MEDS: IPRATROPIUM 0.5MG/ALBUTEROL 2.5MG INH SOL UD 3ML (DUONEB)(J7620) NEB SCH ×7 (00:14→23:28)
[2018-06-22] MEDS: HEPARIN SOD (PORCINE) 5000 UNITS/ML VIAL SC SCH ×3 (05:42→21:31)
[2018-06-22 06:00] VITALS: BP 158/71
[2018-06-22 06:07] LABS: BASO % 0.4 % (0.0-1.0); EOS # 0.1 10^3/uL (0.0-0.50); EOS % 1.1 % (0.0-3.0); HEMATOCRIT 32.3 % (36.0-47.0); HEMOGLOBIN 10.5 g/dl (12.0-15.5); LYMPH # 3.2 10^3/uL (1.5-4.5); LYMPH % 34.3 % (24.0-44.0); MEAN CORPUSCULAR HEMOGLOBIN 28.5 pg (27.0-33.0); MEAN CORPUSCULAR HGB CONC 32.5 g/dl (32.0-36.5); MEAN CORPUSCULAR VOLUME 87.5 fl (80.0-96.0); MONO # 0.7 10^3/uL (0.0-0.8); NEUTROPHILS # 5.2 10^3/uL (1.8-7.7); NEUTROPHILS % 55.8 % (36.0-66.0); PLATELET COUNT, AUTOMATED 283 10^3/uL (150-450); RED BLOOD COUNT 3.69 10^6/uL (4.00-5.40); WHITE BLOOD COUNT 9.4 10^3/uL (4.0-10.0)
[2018-06-22 06:32] LABS: CALCIUM LEVEL 9.4 MG/DL (8.8-10.2); CREATININE FOR GFR 1.48 MG/DL (0.55-1.30); GLOMERULAR FILTRATION RATE 37.6 (>45); MAGNESIUM LEVEL 2.1 MG/DL (1.8-2.4); POTASSIUM SERUM 3.7 MEQ/L (3.5-5.1)
[2018-06-22] MEDS: NYSTATIN OINTMENT 15 GM TOP SCH ×2 (09:04→21:32)
[2018-06-22] MEDS: SENOKOT S TAB PO SCH ×2 (09:05→21:30)
[2018-06-22] MEDS: FENOFIBRATE 145 MG TAB (TRICOR) PO SCH (09:05)
[2018-06-22] MEDS: PRAVASTATIN 20 MG TAB PO SCH (09:05)
[2018-06-22] MEDS: DULoxetine 20 MG CAP (CYMBALTA) PO SCH (09:05)
[2018-06-22] MEDS: FLUTICASONE PROP 0.05% NASAL SPRAY 16 GM (FLONASE) NARES SCH (09:05)
[2018-06-22] MEDS: predniSONE 10 MG TAB PO SCH (09:05)
[2018-06-22] MEDS: HumaLOG INSULIN (NovoLOG) PER UNIT SC SCH ×4 (09:06→21:31)
[2018-06-22] MEDS: HumuLIN (NovoLIN)70/30 INSULIN INJ PER UNIT SC SCH ×2 (09:07→21:31)
[2018-06-22] MEDS: amLODIPine 5 MG TAB PO SCH (09:07)
[2018-06-22] MEDS: ACETAMINOPHEN TAB 650MG DOSE (2X325MG) PO PRN (12:00)
[2018-06-22 14:00] VITALS: BP 146/69
--- NOTE | 2018-06-22 14:07 | IPNPDOC ---
Text Note Date of Service The patient was seen on 06/22/18. NOTE Subjective: Patient is a 67-year-old female with a PMHx of HTN, DM2, DLP, BERYL on CPAP, COPD/Asthma, CKD3, Depression, Morbid obestiy, who presented to the emergency room with history of SOB associated with cough and yellow sputum production. At home patient had a sick grandson who had influenza. In the emergency room, patient was found to be influenza positive and was admitted to the hospitalist service for further evaluation and treatment. Patient was seen and examined at the bedside. Patient continues to work with physical therapy. She was seen sitting up in a chair and denies any significant problems overnight. Denies any nausea, vomiting, abdominal pain, constipation, diarrhea or discomfort with urination. Patient denies any chest pain, shortness of breath or palpitations. Objective: Vitals (See below) General: Lying in bed, no acute distress, comfortable, AAOx3 HEENT: NC, AT CVS: RRR, +S1S2 Lungs: There appears to be air entry that is fair bilaterally without evidence of rhonchi, rales or wheezing Abdomen: Soft without distention or tenderness Extremities: No edema is appreciated on bilateral lower extremity, - Calf tenderness Assessment and plan: SOB - likely 2/2 Influenza with mild COPD exacerbation - Has been tapered off, submental oxygen - CXR 06/11: No acute cardiopulmonary process appreciated. - V/Q Scan 06/19: Low probability of pulmonary embolus. - s/p Tamiflu x 5 days - c/ inhaled therapy as needed - c/w Prednisone - will reduce to 20 mg tomorrow; s/p Solumedrol - c/w PT - until cleared for [place] home Mild COPD exacerbation - See above Suspected UTI - Patient has noted urinary frequency - UA equivocal - Urine culture 06/16: E. Coli - s/p Ciprofloxacin for 3 day course s/p Abdominal pain - KUB 06/16: Moderate fecal stasis without obstruction or perforation. - Abdominal flat plate 06/18: The bowel gas pattern is normal. There are no calcifications. There is abundant fecal residue throughout the colon. There is multilevel lumbar degenerative disc disease. There are bilateral laminectomies lumbar spine at L5 . - c/w Bowel regimen as ordered Lumbar radiculopathy w/ Hx of Lumbar Spinal fusion ([place], [place] - several years ago) - XR R Hip 06/13/18: Osteoarthritis at the hip and tendon insertion site spurring may reflect tendonitis. No acute bony abnormality. - Lumbar Spine MRI 06/13/18: Severe degenerative spondylosis of the lumbar spine. - Cervical Spine MRI 06/13/18: Degenerative spondylosis of the cervical spine with mild spinal stenosis and variable degrees of bilateral foraminal stenosis as described above. - c/w Duloxetine and Gabapentin - as per pain management recommendations BERYL on CPAP - May allow home CPAP / BIPAP use HTN - BP well controlled - Will continue to HOLD Lisinopril and Chlorthalidone - c/w Amlodipine; will increase dose DLP - c/w Pravastatin and Fenofibrate DM2 with Nephropathy - c/w ISS and Humalin 70/30 BID Elevation of Cr on CKD3 - Cr baseline of 1.5-1.6 - Nephrotoxic medication were discontinued; s/p Chlorthalidone and Lisinopril Depression - c/w Duloxetine Morbid obestiy - complicating medical care Disposition: - Awaiting clearance from physical therapy - c/w PT until cleared for DC home - Will discontinue lab work and follow intermittently Cheryl LANGLEY, I+O VSCheryl I+O Laboratory Tests 06/22/18 05:37 Red Blood Count 3.69 L, Mean Corpuscular Volume 87.5, Mean Corpuscular Hemoglobin 28.5, Mean Corpuscular Hemoglobin Concent 32.5, Red Cell Distribution Width 12.6, Neutrophils (%) (Auto) 55.8, Lymphocytes (%) (Auto) 34.3, Monocytes (%) (Auto) 7.0 H, Eosinophils (%) (Auto) 1.1, Basophils (%) (Auto) 0.4, Neutrophils # (Auto) 5.2, Lymphocytes # (Auto) 3.2, Monocytes # (Auto) 0.7, Eosinophils # (Auto) 0.1, Basophils # (Auto) 0.0, Calcium Level 9.4 Vital Signs Date Time Temp Pulse Resp B/P (MAP) Pulse Ox O2 Delivery O2 Flow Rate FiO2 06/22/18 09:07 63 160/70 06/22/18 06:00 96.4 20 98 I&O- Last 24 Hours up to 6 AM 06/22/18 06:00 Intake Total 1980 ml Output Total 4600 ml Balance -2620 ml PAUL ESTRELLA MD Jun 22, 2018 14:07
[2018-06-22] MEDS: MOM 30ML SUSPENSION UDC PO PRN (16:46)
[2018-06-22] MEDS: GABAPENTIN 100 MG CAP PO SCH (21:30)
[2018-06-22] MEDS: amLODIPine 10 MG TAB PO SCH (21:30)
[2018-06-22 21:37] VITALS: BP 141/65
[2018-06-23] MEDS: IPRATROPIUM 0.5MG/ALBUTEROL 2.5MG INH SOL UD 3ML (DUONEB)(J7620) NEB SCH ×5 (03:15→21:02)
[2018-06-23] MEDS: HEPARIN SOD (PORCINE) 5000 UNITS/ML VIAL SC SCH ×3 (04:58→20:49)
[2018-06-23 06:00] VITALS: BP 140/65
[2018-06-23 08:06] LABS: HEMATOCRIT 34.2 % (36.0-47.0); HEMOGLOBIN 11.2 g/dl (12.0-15.5); MEAN CORPUSCULAR HEMOGLOBIN 29.2 pg (27.0-33.0); MEAN CORPUSCULAR HGB CONC 32.7 g/dl (32.0-36.5); MEAN CORPUSCULAR VOLUME 89.1 fl (80.0-96.0); PLATELET COUNT, AUTOMATED 289 10^3/uL (150-450); RED BLOOD COUNT 3.84 10^6/uL (4.00-5.40); WHITE BLOOD COUNT 11.3 10^3/uL (4.0-10.0)
[2018-06-23 08:21] LABS: CALCIUM LEVEL 9.5 MG/DL (8.8-10.2); CREATININE FOR GFR 1.44 MG/DL (0.55-1.30); GLOMERULAR FILTRATION RATE 38.8 (>45)
[2018-06-23] MEDS: PRAVASTATIN 20 MG TAB PO SCH (08:43)
[2018-06-23] MEDS: FENOFIBRATE 145 MG TAB (TRICOR) PO SCH (08:43)
[2018-06-23] MEDS: DULoxetine 20 MG CAP (CYMBALTA) PO SCH (08:43)
[2018-06-23] MEDS: ACETAMINOPHEN TAB 650MG DOSE (2X325MG) PO PRN (08:44)
[2018-06-23] MEDS: amLODIPine 10 MG TAB PO SCH ×2 (08:44→20:49)
[2018-06-23] MEDS: predniSONE 20 MG TAB PO SCH (08:44)
[2018-06-23] MEDS: SENOKOT S TAB PO SCH ×2 (08:44→20:49)
[2018-06-23] MEDS: HumaLOG INSULIN (NovoLOG) PER UNIT SC SCH ×4 (08:45→20:50)
[2018-06-23] MEDS: FLUTICASONE PROP 0.05% NASAL SPRAY 16 GM (FLONASE) NARES SCH (08:45)
[2018-06-23] MEDS: HumuLIN (NovoLIN)70/30 INSULIN INJ PER UNIT SC SCH ×2 (08:45→20:49)
[2018-06-23] MEDS: NYSTATIN OINTMENT 15 GM TOP SCH ×2 (08:46→20:49)
--- NOTE | 2018-06-23 12:28 | IPNPDOC ---
Text Note Date of Service The patient was seen on 06/23/18. NOTE Subjective: Patient is a 67-year-old female with a PMHx of HTN, DM2, DLP, BERYL on CPAP, COPD/Asthma, CKD3, Depression, Morbid obestiy, who presented to the emergency room with history of SOB associated with cough and yellow sputum production. At home patient had a sick grandson who had influenza. In the emergency room, patient was found to be influenza positive and was admitted to the hospitalist service for further evaluation and treatment. Patient was seen and examined at the bedside. Patient reports that she has been progressing with physical therapy. She denies any chest pain, shortness breath or palpitations. Denies nausea, vomiting, abdominal pain, discomfort with urination or diarrhea. Objective: Vitals (See below) General: Lying in bed, no acute distress, comfortable, AAOx3 HEENT: NC, AT CVS: RRR, +S1S2 Lungs: There appears to be air entry that is fair bilaterally without evidence of rhonchi, rales or wheezing Abdomen: -distention / tenderness, soft Extremities: -edema, - Calf tenderness Assessment and plan: SOB - likely 2/2 Influenza with mild COPD exacerbation - Has been tapered off supplemental oxygen - CXR 06/11: No acute cardiopulmonary process appreciated. - V/Q Scan 06/19: Low probability of pulmonary embolus. - s/p Tamiflu x 5 days - c/ inhaled therapy as needed - c/w Prednisone - will reduce to 20 mg tomorrow; s/p Solumedrol - Awaiting PT clearance; anticipate DC home Mild COPD exacerbation - See above Suspected UTI - Patient has noted urinary frequency - UA equivocal - Urine culture 06/16: E. Coli - s/p Ciprofloxacin for 3 day course s/p Abdominal pain - KUB 06/16: Moderate fecal stasis without obstruction or perforation. - Abdominal flat plate 06/18: The bowel gas pattern is normal. There are no calcifications. There is abundant fecal residue throughout the colon. There is multilevel lumbar degenerative disc disease. There are bilateral laminectomies lumbar spine at L5 . - c/w Bowel regimen as ordered Lumbar radiculopathy w/ Hx of Lumbar Spinal fusion ([place], [place] - several years ago) - XR R Hip 06/13/18: Osteoarthritis at the hip and tendon insertion site spurring may reflect tendonitis. No acute bony abnormality. - Lumbar Spine MRI 06/13/18: Severe degenerative spondylosis of the lumbar spine. - Cervical Spine MRI 06/13/18: Degenerative spondylosis of the cervical spine with mild spinal stenosis and variable degrees of bilateral foraminal stenosis as described above. - c/w Duloxetine and Gabapentin - as per pain management recommendations BERYL on CPAP - May allow home CPAP / BIPAP use HTN - BP well controlled - Will continue to HOLD Lisinopril and Chlorthalidone - c/w Amlodipine; will increase dose DLP - c/w Pravastatin and Fenofibrate DM2 with Nephropathy - c/w ISS and Humalin 70/30 BID Elevation of Cr on CKD3 - Cr baseline of 1.5-1.6 - Nephrotoxic medication were discontinued; s/p Chlorthalidone and Lisinopril Depression - c/w Duloxetine Morbid obestiy - complicating medical care Disposition: - Awaiting clearance from physical therapy; likely DC home with services when cleared VS,Cheyrl, I+O VS, Cheryl, I+O Laboratory Tests 06/23/18 07:42 Red Blood Count 3.84 L, Mean Corpuscular Volume 89.1, Mean Corpuscular Hemoglobin 29.2, Mean Corpuscular Hemoglobin Concent 32.7, Red Cell Distribution Width 12.9, Calcium Level 9.5 Vital Signs Date Time Temp Pulse Resp B/P (MAP) Pulse Ox O2 Delivery O2 Flow Rate FiO2 06/23/18 08:44 61 137/65 06/23/18 06:00 97.4 19 98 I&O- Last 24 Hours up to 6 AM 06/23/18 06:00 Intake Total 2160 ml Output Total 4700 ml Balance -2540 ml PAUL ESTRELLA MD Jun 23, 2018 12:28
[2018-06-23 14:00] VITALS: BP 146/66
[2018-06-23] MEDS: GABAPENTIN 100 MG CAP PO SCH (20:49)
[2018-06-23 22:00] VITALS: BP 141/69
[2018-06-24] MEDS: IPRATROPIUM 0.5MG/ALBUTEROL 2.5MG INH SOL UD 3ML (DUONEB)(J7620) NEB SCH ×5 (00:04→20:57)
[2018-06-24] MEDS: HEPARIN SOD (PORCINE) 5000 UNITS/ML VIAL SC SCH ×3 (05:32→21:09)
[2018-06-24 06:00] VITALS: BP 148/73
[2018-06-24 06:32] LABS: HEMATOCRIT 31.9 % (36.0-47.0); HEMOGLOBIN 10.4 g/dl (12.0-15.5); MEAN CORPUSCULAR HEMOGLOBIN 28.5 pg (27.0-33.0); MEAN CORPUSCULAR HGB CONC 32.6 g/dl (32.0-36.5); MEAN CORPUSCULAR VOLUME 87.4 fl (80.0-96.0); PLATELET COUNT, AUTOMATED 277 10^3/uL (150-450); RED BLOOD COUNT 3.65 10^6/uL (4.00-5.40); WHITE BLOOD COUNT 10.4 10^3/uL (4.0-10.0)
[2018-06-24 06:57] LABS: CALCIUM LEVEL 8.8 MG/DL (8.8-10.2); CREATININE FOR GFR 1.41 MG/DL (0.55-1.30); GLOMERULAR FILTRATION RATE 39.7 (>45); MAGNESIUM LEVEL 1.9 MG/DL (1.8-2.4); POTASSIUM SERUM 3.6 MEQ/L (3.5-5.1)
[2018-06-24] MEDS: predniSONE 20 MG TAB PO SCH (08:42)
[2018-06-24] MEDS: SENOKOT S TAB PO SCH ×2 (08:42→21:08)
[2018-06-24] MEDS: DULoxetine 20 MG CAP (CYMBALTA) PO SCH (08:42)
[2018-06-24] MEDS: PRAVASTATIN 20 MG TAB PO SCH (08:42)
[2018-06-24] MEDS: amLODIPine 10 MG TAB PO SCH ×2 (08:42→21:09)
[2018-06-24] MEDS: FENOFIBRATE 145 MG TAB (TRICOR) PO SCH (08:42)
[2018-06-24] MEDS: HumaLOG INSULIN (NovoLOG) PER UNIT SC SCH ×4 (08:43→21:10)
[2018-06-24] MEDS: HumuLIN (NovoLIN)70/30 INSULIN INJ PER UNIT SC SCH ×2 (08:43→21:09)
[2018-06-24] MEDS: FLUTICASONE PROP 0.05% NASAL SPRAY 16 GM (FLONASE) NARES SCH (08:44)
[2018-06-24] MEDS: NYSTATIN OINTMENT 15 GM TOP SCH ×2 (08:45→21:10)
--- NOTE | 2018-06-24 10:50 | IPNPDOC ---
Text Note Date of Service The patient was seen on 06/24/18. NOTE Subjective: Patient is a 67-year-old female with a PMHx of HTN, DM2, DLP, BERYL on CPAP, COPD/Asthma, CKD3, Depression, Morbid obestiy, who presented to the emergency room with history of SOB associated with cough and yellow sputum production. At home patient had a sick grandson who had influenza. In the emergency room, patient was found to be influenza positive and was admitted to the hospitalist service for further evaluation and treatment. Patient was seen and examined at the bedside. Patient has not worked with physical therapy yesterday but will be working with them today. She is anxious to get home. . She reports her breathing is back down to her baseline. Denies any significant cough. Denies chest pain or palpitations. Denies nausea, vom iting, abdominal pain, constipation, diarrhea or any urinary discomfort. Objective: Vitals (See below) General: Lying in bed, no acute distress, comfortable, AAOx3 HEENT: NC, AT CVS: RRR, +S1S2 Lungs: Air entry appears to be fair bilaterally without evidence of rhonchi, ra les or wheezing Abdomen: Obese but remains soft without distention or tenderness Extremities: Lower extremity are without any evidence of edema, - Calf tenderness Assessment and plan: SOB - likely 2/2 Influenza with mild COPD exacerbation - Has been tapered off supplemental oxygen - CXR 06/11: No acute cardiopulmonary process appreciated. - V/Q Scan 06/19: Low probability of pulmonary embolus. - s/p Tamiflu x 5 days - c/w inhaled therapy as needed - c/w Prednisone - will reduce to 20 mg tomorrow; s/p Solumedrol - Will likely be going home with services when cleared by PT Mild COPD exacerbation - See above Suspected UTI - Patient has noted urinary frequency - UA equivocal - Urine culture 06/16: E. Coli - s/p Ciprofloxacin for 3 day course s/p Abdominal pain - KUB 06/16: Moderate fecal stasis without obstruction or perforation. - Abdominal flat plate 06/18: The bowel gas pattern is normal. There are no calcifications. There is abundant fecal residue throughout the colon. There is multilevel lumbar degenerative disc disease. There are bilateral laminectomies l umbar spine at L5 . - c/w Bowel regimen as ordered Lumbar radiculopathy w/ Hx of Lumbar Spinal fusion ([place], [place] - several years ago) - XR R Hip 06/13/18: Osteoarthritis at the hip and tendon insertion site spurring may reflect tendonitis. No acute bony abnormality. - Lumbar Spine MRI 06/13/18: Severe degenerative spondylosis of the lumbar spine. - Cervical Spine MRI 06/13/18: Degenerative spondylosis of the cervical spine with mild spinal stenosis and variable degrees of bilateral foraminal stenosis as described above. - c/w Duloxetine and Gabapentin - as per pain management recommendations BERYL on CPAP - May allow home CPAP / BIPAP use HTN - BP well controlled - s/p Lisinopril and Chlorthalidone - c/w Amlodipine at adjusted dose DLP - c/w Pravastatin and Fenofibrate DM2 with Nephropathy - c/w ISS and Humulin 70/30 BID Elevation of Cr on CKD3 - Cr baseline of 1.5-1.6 - Nephrotoxic medication were discontinued; s/p Chlorthalidone and Lisinopril Depression - c/w Duloxetine Morbid obestiy - complicating medical care Disposition: - Awaiting PT clearance VS,Cheryl, I+O VS, Cheryl I+O Laboratory Tests 06/24/18 05:51 Red Blood Count 3.65 L, Mean Corpuscular Volume 87.4, Mean Corpuscular Hemoglobin 28.5, Mean Corpuscular Hemoglobin Concent 32.6, Red Cell Distribution Width 12.8, Calcium Level 8.8 Vital Signs Date Time Temp Pulse Resp B/P (MAP) Pulse Ox O2 Delivery O2 Flow Rate FiO2 06/24/18 08:42 62 139/75 06/24/18 06:00 97.3 16 98 I&O- Last 24 Hours up to 6 AM 06/24/18 06:00 Intake Total 2428 ml Output Total 4300 ml Balance -1872 ml PAUL ESTRELLA MD Jun 24, 2018 10:50
[2018-06-24 14:00] VITALS: BP 162/71
[2018-06-24] MEDS: GABAPENTIN 100 MG CAP PO SCH (21:08)
[2018-06-24 22:00] VITALS: BP 150/68
[2018-06-25] MEDS: IPRATROPIUM 0.5MG/ALBUTEROL 2.5MG INH SOL UD 3ML (DUONEB)(J7620) NEB SCH ×4 (04:00→11:34)
[2018-06-25] MEDS: HEPARIN SOD (PORCINE) 5000 UNITS/ML VIAL SC SCH (05:38)
[2018-06-25 06:00] VITALS: BP 133/66
[2018-06-25] MEDS: HumuLIN (NovoLIN)70/30 INSULIN INJ PER UNIT SC SCH (07:45)
[2018-06-25] MEDS: PRAVASTATIN 20 MG TAB PO SCH (08:44)
[2018-06-25] MEDS: SENOKOT S TAB PO SCH (08:44)
[2018-06-25 08:45] VITALS: BP 144/73
[2018-06-25] MEDS: amLODIPine 10 MG TAB PO SCH (08:45)
[2018-06-25] MEDS: FENOFIBRATE 145 MG TAB (TRICOR) PO SCH (08:45)
[2018-06-25] MEDS: DULoxetine 20 MG CAP (CYMBALTA) PO SCH (08:46)
[2018-06-25] MEDS: FLUTICASONE PROP 0.05% NASAL SPRAY 16 GM (FLONASE) NARES SCH (08:47)
[2018-06-25] MEDS: NYSTATIN OINTMENT 15 GM TOP SCH (08:47)
[2018-06-25] MEDS: HumaLOG INSULIN (NovoLOG) PER UNIT SC SCH ×2 (08:49→11:48)
[2018-06-25] MEDS: predniSONE 20 MG TAB PO SCH (08:59)
[2018-06-25 09:00] VITALS: BP 144/73
[2018-06-25] MEDS ORDERED: AMLO10TA5 PO (09:46)
[2018-06-25] MEDS ORDERED: PRED10TA2 PO (11:08)
--- NOTE | 2018-06-25 11:10 | DS.PDOC ---
Discharge Summary General Date of Admission Jun 11, 2018 at 20:11 Date of Discharge 06/25/2018 Discharge Summary PROCEDURES PERFORMED DURING STAY: [None]. ADMITTING DIAGNOSES / DISCHARGE DIAGNOSES: SOB - likely 2/2 Influenza with mild COPD exacerbation Mild COPD exacerbation Suspected UTI s/p Abdominal pain Lumbar radiculopathy w/ Hx of Lumbar Spinal fusion ([place], [place] - several years ago) BERYL on CPAP HTN DLP DM2 with Nephropathy Elevation of Cr on CKD3 Depression Morbid obestiy DVT prophylaxis COMPLICATIONS/CHIEF COMPLAINT: Shortness of breath / Cough HISTORY OF PRESENT ILLNESS: Patient is a 67-year-old female with a PMHx of HTN, DM2, DLP, BERYL on CPAP, COPD/Asthma, CKD3, Depression, Morbid obestiy, who presented to the emergency room with history of SOB associated with cough and yellow sputum production. At home patient had a sick grandson who had influenza. In the emergency room, patient was found to be influenza positive and was admitted to the hospitalist service for further evaluation and treatment. HOSPITAL COURSE: SOB - likely 2/2 Influenza with mild COPD exacerbation - Has been tapered off supplemental oxygen - CXR 06/11: No acute cardiopulmonary process appreciated. - V/Q Scan 06/19: Low probability of pulmonary embolus. - s/p Tamiflu x 5 days - c/w inhaled therapy as needed - c/w Prednisone; s/p Solumedrol; will provide outpatient taper - Patient is cleared physical therapy and will be going home with services Mild COPD exacerbation - See above Suspected UTI - Patient has noted urinary frequency - UA equivocal - Urine culture 06/16: E. Coli - s/p Ciprofloxacin for 3 day course s/p Abdominal pain - KUB 06/16: Moderate fecal stasis without obstruction or perforation. - Abdominal flat plate 06/18: The bowel gas pattern is normal. There are no calcifications. There is abundant fecal residue throughout the colon. There is multilevel lumbar degenerative disc disease. There are bilateral laminectomies lumbar spine at L5 . - c/w Bowel regimen as ordered Lumbar radiculopathy w/ Hx of Lumbar Spinal fusion ([place], [place] - several years ago) - XR R Hip 06/13/18: Osteoarthritis at the hip and tendon insertion site spurring may reflect tendonitis. No acute bony abnormality. - Lumbar Spine MRI 06/13/18: Severe degenerative spondylosis of the lumbar spine. - Cervical Spine MRI 06/13/18: Degenerative spondylosis of the cervical spine with mild spinal stenosis and variable degrees of bilateral foraminal stenosis as described above. - c/w Duloxetine and Gabapentin - as per pain management recommendations BERYL on CPAP - May allow home CPAP / BIPAP use HTN - BP well controlled - s/p Lisinopril and Chlorthalidone - c/w Amlodipine at adjusted dose DLP - c/w Pravastatin and Fenofibrate DM2 with Nephropathy - c/w ISS and Humulin 70/30 BID Elevation of Cr on CKD3 - Cr baseline of 1.5-1.6 - Nephrotoxic medication were discontinued; s/p Chlorthalidone and Lisinopril Depression - c/w Duloxetine Morbid obestiy - complicating medical care DVT prophylaxis - c/w Heparin DISCHARGE MEDICATIONS: Please see below. ALLERGIES: Please see below. PHYSICAL EXAMINATION ON DISCHARGE: Vitals (See below) General: Lying in bed, no acute distress, comfortable, AAOx3 HEENT: NC, AT CVS: +S1S2 Lungs: Air entry is fair bilaterally, without any evidence of rhonchi, rales or wheezing on auscultation Abdomen: Obese, although it is soft and there does not appear to be any distention or tenderness Extremities: There does not appear to be any appreciable lower extremity edema, - Calf tenderness Skin: No rashes noted LABORATORY DATA: Please see below. ACTIVITY: [As tolerated]. DISCHARGE PLAN: Follow up with Dr. Ramon Diez within 7 days Remain compliant with treatment plan and medications Return to the ER if you experience any problems DISPOSITION: Home with services DISCHARGE CONDITION: [Stable]. TIME SPENT ON DISCHARGE: Greater than [35] minutes. Vital Signs/I&Os Vital Signs Date Time Temp Pulse Resp B/P (MAP) Pulse Ox O2 Delivery O2 Flow Rate FiO2 06/25/18 08:45 62 144/73 06/25/18 06:00 97.8 18 98 I&O- Last 24 Hours up to 6 AM 06/25/18 06:00 Intake Total 1980 ml Output Total 5700 ml Balance -3720 ml Laboratory Data Labs 24H Laboratory Tests 2 06/24/18 11:38: Bedside Glucose (Misc Panel) 124H 06/24/18 16:43: Bedside Glucose (Misc Panel) 276H 06/24/18 20:48: Bedside Glucose (Misc Panel) 342H 06/25/18 06:44: Bedside Glucose (Misc Panel) 106 FSBS Laboratory Tests Test 06/24/18 11:38 06/24/18 16:43 06/24/18 20:48 06/25/18 06:44 Range/Units Bedside Glucose (Misc Panel) 124 276 342 106 80-115 MG/DL Microbiology Microbiology 06/16/18 Urine Culture - Final, Complete Escherichia Coli Discharge Medications Scheduled Amlodipine Besylate (Amlodipine Besylate) 10 Mg Tablet, 1 TAB PO BID Ergocalciferol (Vitamin D2) (Drisdol) 50,000 Unit Cap, 100,000 UNIT PO 1XWK, (Reported) MONDAY Fenofibrate (Fenofibrate) 160 Mg Tab, 160 MG PO DAILY, (Reported) Fluticasone Propionate (Fluticasone Propionate) 50 Mcg/Act Spr, 2 SPRAY NARES DAILY, (Reported) Insulin Human Lispro (Humalog) 1 Units/0.01 Ml Inj, 0 UNITS SC QHS Insulin Human Lispro (Humalog) 1 Units/0.01 Ml Inj, 0 UNITS SC AC Insulin NPH Hum/Reg Insulin Hm (Humulin 70-30 Vial) 1 Inj Inj, 75 UNITS SC QAM, (Reported) Insulin NPH Hum/Reg Insulin Hm (Humulin 70-30 Vial) 1 Inj Inj, 55 UNITS SC QPM, (Reported) Insulin NPH Hum/Reg Insulin Hm (Humulin 70-30 Vial) 1 Inj Inj, 65 UNITS SC QPM Insulin NPH Hum/Reg Insulin Hm (Humulin 70-30 Vial) 1 Inj Inj, 90 UNITS SC QAM@0730 Pravastatin Sodium (Pravastatin Sodium) 40 Mg Tab, 40 MG PO DAILY, (Reported) Venlafaxine HCl (Venlafaxine HCl ER) 75 Mg Capcr, 75 MG PO DAILY, (Reported) Scheduled PRN Acetaminophen (Tylenol Extra Strength) 500 Mg Tab, 1,000 MG PO Q6H PRN for PAIN, (Reported) Dextrose (Glucose) 1 Chw Chw, 1 CHW PO PRN PRN for BLOOD SUGAR, (Reported) Diclofenac Sodium (Diclofenac Sodium) 1 % Gel, 1 DOSE TOP TID PRN for PAIN, (Reported) APPLY TO JOINTS OF HANDS NEEDED Allergies Coded Allergies: metoprolol (Verified Allergy, Severe, 06/11/18) TAPE (Verified Allergy, Intermediate, NYLON TAPE CAUSES HIVES PER 09/09/03, 04/03/18) latex (Verified Allergy, Intermediate, RASH, 06/11/18) morphine (Verified Allergy, Intermediate, ITCHING, 06/11/18) ibuprofen (Verified Adverse Reaction, Intermediate, BLEEDING, CONSTIPATION, 06/11/18) Quinolones (Verified Adverse Reaction, Mild, DIZZINESS, 06/11/18) PAUL ESTRELLA MD Jun 25, 2018 11:10
[2018-06-25] MEDS ORDERED: CYMB1CAP4 PO (12:48)
[2018-06-25] MEDS ORDERED: GABA-1171 PO (12:48)
== END 2018-06-25 14:14 | disposition home health service (06) | DRG 194 ==
LOC: M ED 16:43 → M ED INP 20:11 → M PCU 21:19 → M MS4PR 06-12 11:26 → M MSPAV 06-14 15:20
PROVIDERS: ADMIT Internal Medicine; ATTEND Internal Medicine
DX: J10.1 Influenza due to other identified influenza virus with other respiratory manifestations (principal); J44.1 Chronic obstructive pulmonary disease with (acute) exacerbation; N39.0 Urinary tract infection, site not specified; Z68.41 Body mass index [BMI] 40.0-44.9, adult; M47.26 Other spondylosis with radiculopathy, lumbar region; E78.5 Hyperlipidemia, unspecified; N18.3 Chronic kidney disease, stage 3 (moderate); E11.22 Type 2 diabetes mellitus with diabetic chronic kidney disease; F32.9 Major depressive disorder, single episode, unspecified; I12.9 Hypertensive chronic kidney disease with stage 1 through stage 4 chronic kidney disease, or unspecified chronic kidney disease; G47.33 Obstructive sleep apnea (adult) (pediatric); E66.01 Morbid (severe) obesity due to excess calories; B96.20 Unspecified Escherichia coli [E. coli] as the cause of diseases classified elsewhere; E11.21 Type 2 diabetes mellitus with diabetic nephropathy; R26.81 Unsteadiness on feet; Z79.4 Long term (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; Z79.899 Other long term (current) drug therapy; Z88.1 Allergy status to other antibiotic agents; Z88.6 Allergy status to analgesic agent; Z88.8 Allergy status to other drugs, medicaments and biological substances; Z91.048 Other nonmedicinal substance allergy status; Z88.5 Allergy status to narcotic agent; Z98.1 Arthrodesis status

== ENCOUNTER 2018-07-06 10:26 | Inpatient (IN) | payer MEDICARE, MEDICAID ==
[~2018-07-06] VITALS: Ht 167.6 cm; Wt 125.2 kg
[~2018-07-06 10:26] MED LIST changes: +AMLO10TA5 PO; +AMLO5TAB6 PO; +CYMB1CAP4 PO; +FENO48TA2 PO; +GABA-1171 PO; +GLUC1CHW11 PO; +INSUHUMDS SC
[2018-07-06 10:58] LABS: ABG BASE EXCESS 2.4 (-2.0-2.0); ABG HCO3 22.9 MEQ/L (22.0-26.0); ABG O2 SATURATION 98.5 % (95.0-99.0); ABG PARTIAL PRESSURE CO2 24.3 mmHg (35.0-45.0); ABG STANDARD HCO3 26.6 MEQ/L (22.0-26.0); ABG TOTAL CO2 23.7 MEQ/L (23.0-31.0); ABG pH (ARTERIAL) 7.593 UNITS (7.350-7.450)
[2018-07-06] MEDS ORDERED: IPRATROPIUM 0.5MG/ALBUTEROL 2.5MG INH SOL UD 3ML (DUONEB)(J7620) NEB ONE (11:00)
[2018-07-06] MEDS: IPRATROPIUM 0.5MG/ALBUTEROL 2.5MG INH SOL UD 3ML (DUONEB)(J7620) NEB SCH ×3 (11:07→11:40)
--- NOTE | 2018-07-06 11:07 | REP ---
CHEST, PORTABLE: AP portable view of the chest is performed. Comparison 06/18/2018. There is mild cardiomegaly and vascular congestion. No infiltrates are seen. Mediastinal silhouette is unchanged compared to prior study. IMPRESSION: Mild cardiomegaly and vascular congestion with no acute infiltrate. Electronically Signed by Harry Mota MD 07/09/2018 01:30 P
[2018-07-06 11:28] LABS: BASO % 0.7 % (0.0-1.0); EOS # 0.2 10^3/uL (0.0-0.50); EOS % 3.3 % (0.0-3.0); HEMATOCRIT 34.9 % (36.0-47.0); HEMOGLOBIN 11.5 g/dl (12.0-15.5); LYMPH # 2.3 10^3/uL (1.5-4.5); LYMPH % 40.6 % (24.0-44.0); MEAN CORPUSCULAR HEMOGLOBIN 28.9 pg (27.0-33.0); MEAN CORPUSCULAR VOLUME 87.7 fl (80.0-96.0); MONO # 0.5 10^3/uL (0.0-0.8); MONO % 7.8 % (0.0-5.0); NEUTROPHILS # 2.7 10^3/uL (1.8-7.7); NEUTROPHILS % 47.3 % (36.0-66.0); PLATELET COUNT, AUTOMATED 289 10^3/uL (150-450); RED BLOOD COUNT 3.98 10^6/uL (4.00-5.40); WHITE BLOOD COUNT 5.8 10^3/uL (4.0-10.0)
[2018-07-06] MEDS ORDERED: METF10004 (11:30)
[2018-07-06] MEDS ORDERED: CHLO50TA PO (11:30)
[2018-07-06] MEDS ORDERED: LISI-542 (11:30)
[2018-07-06] MEDS ORDERED: VENL75CA47 (11:30)
[2018-07-06 11:39] LABS: INR 0.9; PROTHROMBIN TIME 12.2 SECONDS (12.1-14.4)
[2018-07-06 11:57] LABS: INFLUENZA A AMPLIFICATION NEGATIVE (NEGATIVE); INFLUENZA B AMPLIFICATION NEGATIVE (NEGATIVE)
[2018-07-06 12:04] LABS: ALT/SGPT 37 U/L (12-78); BILIRUBIN,DIRECT 0.1 MG/DL (0.0-0.2); BILIRUBIN,TOTAL 0.3 MG/DL (0.2-1.0); BLOOD UREA NITROGEN 36 MG/DL (7-18); CALCIUM LEVEL 10.4 MG/DL (8.8-10.2); CARBON DIOXIDE LEVEL 26 MEQ/L (21-32); CHLORIDE LEVEL 108 MEQ/L (98-107); CPK CREATINE PHOSPHOKINASE 172 U/L (26-192); CREATININE FOR GFR 1.45 MG/DL (0.55-1.30); GLOMERULAR FILTRATION RATE 38.5 (>45); GLUCOSE, FASTING 62 MG/DL (70-100); MB/CK RELATIVE INDEX 1.74 (< OR =4); NT-PRO BNP 84 PG/ML (<125); POTASSIUM SERUM 3.7 MEQ/L (3.5-5.1); SODIUM LEVEL 142 MEQ/L (136-145); TOTAL PROTEIN 7.3 GM/DL (6.4-8.2); TROPONIN I < 0.02 NG/ML (< 0.10)
--- NOTE | 2018-07-06 13:14 | REP ---
BILATERAL LOWER EXTREMITY DUPLEX DOPPLER VENOUS ULTRASOUND: Real-time compression and duplex Doppler interrogation of bilateral lower extremity deep venous systems is performed. Bilaterally the common femoral and superficial femoral arteries are fully compressible, as is the right popliteal artery, with no intraluminal thrombus. There is partial thrombosis of the left popliteal vein. There is occlusion of the left tibioperoneal trunk. Popliteal cyst is seen on the right 2.0 x 1.4 x 2.2 cm. IMPRESSION: Partial thrombosis left popliteal vein with occluding thrombus in the left tibioperoneal trunk. Electronically Signed by Harry Mota MD 07/09/2018 01:35 P
[2018-07-06] MEDS ORDERED: ISOVUE-370 76% 100ML VIAL (Q9967) As Ordered ONE (13:19)
--- NOTE | 2018-07-06 14:26 | REP ---
CT ANGIOGRAM OF THE CHEST: TECHNIQUE: Axial contrast enhanced images from the thoracic inlet to the upper abdomen using 100 mL Isovue 370 intravenous contrast material with multiplanar reformations. There are scattered small filling defects in the pulmonary arteries of both upper and lower lobes compatible with scattered bilateral pulmonary emboli. There is no thoracic aortic aneurysm or dissection. Heart is normal in size. Hypodense nodule in the left lobe of the thyroid is nonspecific, measuring about 2.2 cm in diameter. There is no evidence of mediastinal, hilar, or chest wall lymphadenopathy. There is no pleural or pericardial effusion. No infiltrate is seen in either lung. IMPRESSION: Scattered bilateral pulmonary emboli involving both upper and lower lobes. Nonspecific left thyroid nodule 2.2 cm in diameter. Electronically Signed by Harry Mota MD 07/09/2018 01:39 P
[2018-07-06] MEDS ORDERED: AMLO10TA5 PO (15:05)
[2018-07-06] MEDS ORDERED: NEUR100C PO (15:05)
[2018-07-06] MEDS ORDERED: DULO1CAP PO (15:05)
[2018-07-06] MEDS ORDERED: ACET-683 PO (15:05)
[2018-07-06] MEDS ORDERED: HUMA100I5 SC (15:06)
[2018-07-06] MEDS ORDERED: HUMU70IN SC ×2 (15:10)
[2018-07-06] MEDS ORDERED: PROAAER10 INH (15:10)
[2018-07-06] MEDS ORDERED: TOUJ1.2I SC (15:10)
[2018-07-06] MEDS ORDERED: VICT18IN2 SQ (15:10)
[2018-07-06] MEDS ORDERED: GLUCOSE 4 GM CHEW TABLET PO PRN (15:45)
[2018-07-06] MEDS ORDERED: HEPARIN SOD (PORCINE) 5000 UNITS/ML VIAL IV ONE (15:45)
[2018-07-06] MEDS ORDERED: HEPARIN SOD (PORCINE) 5000 UNITS/ML VIAL IV PRN (15:45)
[2018-07-06] MEDS ORDERED: GLUCAGON FOR INJ 1 MG VIAL (J1610) SC PRN (15:45)
[2018-07-06] MEDS ORDERED: ONDANSETRON 4MG/2ML VIAL (J2405) IV PRN (15:45)
[2018-07-06] MEDS ORDERED: DEXTROSE 50% 50 ML SYRINGE IV PRN (15:45)
--- NOTE | 2018-07-06 16:33 | HPEPDOC ---
General Date of Admission Jul 06, 2018 at 15:44 Chief Complaint The patient is a 67-year-old female admitted with a reason for visit of Pulmona ry Emboli. History of Present Illness 67-year-old female with past medical history of hypertension, diabetes mellitus, dyslipidemia, obstructive sleep apnea on CPAP, chronic kidney disease stage III, depression, and morbid obesity presents to the ER with a chief complaint of shortness of breath and increased lethargy over the last several days. Of note, the patient was admitted to [facility] from 06/11-06/25/18 for shortness of breath and weakness due to influenza virus. She did have a V/Q scan on 06/19/18 which showed a low probability of pulmonary embolism. She was functionally optimized with physical therapy and discharged home. The patient states that since she has been home she has been very sedentary and laying in bed or sitting on the couch for the majority of the day. Over the last several days, the patient states that she has been having more shortness of breath and fatigue. She denied any complaints of fevers, chills, cough, congestion, chest pain, palpitations, abdominal pain, or any nausea/vomiting/diarrhea. She has noted some swelling of her lower extremities, and was sent to the ER by her primary care physician for evaluation of the same. In the ER, a CT angiogram of the chest revealed scattered bilateral pulmonary emboli involving both upper and lower lobes. In addition a lower extremity ultrasound revealed partial thrombosis of the left popliteal vein with occluding thrombus in the left tibial peroneal trunk. The patient was noted to be hemodynamically stable, and saturating 94% on room air. She will be admitted to the hospitalist service for further evaluation and management. Home Medications Scheduled Amlodipine Besylate (Amlodipine Besylate) 10 Mg Tablet, 10 MG PO BID, (Reported) Chlorthalidone (Chlorthalidone) 50 Mg Tablet, 50 MG PO DAILY, (Reported) Duloxetine Hcl (Duloxetine HCl) 20 Mg Capsule.dr, 20 MG PO DAILY, (Reported) Ergocalciferol (Vitamin D2) (Drisdol) 50,000 Unit Cap, 100,000 UNIT PO QWEEK, (Reported) MONDAY Fenofibrate (Fenofibrate) 160 Mg Tab, 160 MG PO DAILY, (Reported) Fluticasone Propionate (Fluticasone Propionate) 50 Mcg/Act Spr, 2 SPRAY NARES DAILY, (Reported) Gabapentin (Neurontin) 100 Mg Capsule, 100 MG PO QHS, (Reported) Insulin Glargine,Hum.rec.anlog (Faustinoshireenharvinder Solostar) 300 Unit/1 Ml Insuln.pen, 20 UNIT SC QHS, (Reported) PATIENT HAS NOT STARTED THIS YET Insulin Lispro (Humalog Kwikpen U-100) 100 Unit/1 Ml Insuln.pen, 1 DOSE SC ASDIRECTED, (Reported) PER SLIDING SCALE Insulin NPH Hum/Reg Insulin Hm (Humulin 70-30 Vial) 100 Unit/1 Ml Vial, 90 UNITS SC QAM, (Reported) Insulin NPH Hum/Reg Insulin Hm (Humulin 70-30 Vial) 100 Unit/1 Ml Vial, 65 UNITS SC QHS, (Reported) Liraglutide (Victoza 3-Anthony) 0.6 Mg/0.1 Ml Pen.injctr, 0.6 MG SQ DAILY, (Reported) PATIENT HAS NOT STARTED Pravastatin Sodium (Pravastatin Sodium) 40 Mg Tab, 40 MG PO DAILY, (Reported) Scheduled PRN Acetaminophen (Acetaminophen) 500 Mg Tablet, 1,000 MG PO Q6H PRN for PAIN, (Reported) Albuterol Sulfate (Proair Hfa) 8.5 Gm Hfa.aer.ad, 2 PUFF INH Q4H PRN for SHORTNESS OF BREATH, (Reported) Dextrose (Glucose) 1 Chw Chw, 1 CHW PO PRN PRN for BLOOD SUGAR, (Reported) Diclofenac Sodium (Diclofenac Sodium) 1 % Gel, 1 DOSE TOP TID PRN for PAIN, (Rep orted) APPLY TO JOINTS OF HANDS NEEDED Allergies Coded Allergies: metoprolol (Verified Allergy, Severe, 07/06/18) LOWERS BLOOD PRESSURE TOO MUCH TAPE (Verified Allergy, Intermediate, NYLON TAPE CAUSES HIVES PER 09/09/03, 04/03/18) latex (Verified Allergy, Intermediate, RASH, 06/11/18) morphine (Verified Allergy, Intermediate, ITCHING, 06/11/18) ibuprofen (Verified Adverse Reaction, Intermediate, BLEEDING, CONSTIPATION, 06/11/18) Quinolones (Verified Adverse Reaction, Mild, DIZZINESS, 06/11/18) Past Medical History Medical History As noted in HPI Surgical History RIGHT ARM LIPOMA REMOVAL LOWER BACK SURGERY X2 1969'S HYSTERECTOMY 1979 Social History * Smoker: former Smoker (Smoked 1-2 PPD of Tobacco for 50+ years, quit 10 years ago ) Alcohol: rarely Drugs: denies A-FIB/CHADSVASC A-FIB History Current/History of A-Fib/PAF?: No Review of Systems Other systems 10 point review of systems negative unless otherwise specified in HPI. Physical Examination General Exam: Positive: Alert, Cooperative, No Acute Distress, Other (morbidly obese appearing female laying in bed) ENT Exam: Positive: Atraumatic, Mucous membr. moist/pink Chest Exam: Positive: Diminished; Negative: Wheezing Heart Exam: Positive: Rate Normal, Regular Rhythm, Normal S1, Normal S2 Telemetry: Positive: Sinus Abdomen Exam: Positive: Soft; Negative: Tenderness Extremity Exam: Positive: Swelling (1+ pitting edema in the lower extremities bilaterally); Negative: Tenderness Psych Exam: Positive: Oriented x 3 Vital Signs Vital Signs Date Time Temp Pulse Resp B/P (MAP) Pulse Ox O2 Delivery O2 Flow Rate FiO2 07/06/18 13:58 158/71 (100) 07/06/18 13:56 70 20 95 Room Air 07/06/18 10:28 97.9 Laboratory Data Labs 24H Laboratory Tests 2 07/06/18 10:45: Blood Gas Bicarbonate Standard 26.6H, Arterial Blood pH 7.593H, Arterial Blood Partial Pressure CO2 24.3L, Arterial Blood Partial Pressure O2 116.0H, Arterial Blood Total CO2 23.7, Arterial Blood HCO3 22.9, Arterial Blood Base Excess 2.4H, Arterial Blood Oxygen Saturation 98.5 07/06/18 11:11: Immature Granulocyte % (Auto) 0.3, White Blood Count 5.8, Red Blood Count 3.98L, Hemoglobin 11.5L, Hematocrit 34.9L, Mean Corpuscular Volume 87.7, Mean Corpuscular Hemoglobin 28.9, Mean Corpuscular Hemoglobin Concent 33.0, Red Cell Distribution Width 13.0, Platelet Count 289, Neutrophils (%) (Auto) 47.3, Lymphocytes (%) (Auto) 40.6, Monocytes (%) (Auto) 7.8H, Eosinophils (%) (Auto) 3.3H, Basophils (%) (Auto) 0.7, Neutrophils # (Auto) 2.7, Lymphocytes # (Auto) 2.3, Monocytes # (Auto) 0.5, Eosinophils # (Auto) 0.2, Basophils # (Auto) 0.0, Nucleated Red Blood Cells % (auto) 0.0, Prothrombin Time 12.2, Prothromb Time In ternational Ratio 0.90, Anion Gap 8, Glomerular Filtration Rate 38.5L, Lactic Acid Level 1.3, Calcium Level 10.4H, Aspartate Amino Transf (AST/SGOT) 18, Alanine Aminotransferase (ALT/SGPT) 37, Alkaline Phosphatase 51, Total Bilirubin 0.3, Direct Bilirubin 0.1, Total Creatine Kinase 172, Creatine Kinase MB 3.0, Creatine Kinase MB Relative Index 1.74, Troponin I < 0.02, ZI-Olr-P-Type Natriuretic Peptide 84, Total Protein 7.3, Albumin 4.0, Albumin/Globulin Ratio 1.21, Thyroid Stimulating Hormone (TSH) 1.670, Influenza Type A (RT-PCR) NEGATIVE, Influenza Type B (RT-PCR) NEGATIVE CBC/BMP Laboratory Tests 07/06/18 11:11 Red Blood Count 3.98 L, Mean Corpuscular Volume 87.7, Mean Corpuscular Hemoglobin 28.9, Mean Corpuscular Hemoglobin Concent 33.0, Red Cell Distribution Width 13.0, Neutrophils (%) (Auto) 47.3, Lymphocytes (%) (Auto) 40.6, Monocytes (%) (Auto) 7.8 H, Eosinophils (%) (Auto) 3.3 H, Basophils (%) (Auto) 0.7, Neutrophils # (Auto) 2.7, Lymphocytes # (Auto) 2.3, Monocytes # (Auto) 0.5, Eosinophils # (Auto) 0.2, Basophils # (Auto) 0.0 Microbiology Microbiology 07/06/18 Blood Culture, Received Pending 07/06/18 Blood Culture, Received Pending Plan / VTE VTE Prophylaxis Ordered?: Yes Plan Plan SOB, Fatigue 2/2 Bilateral Pulmonary Emboli with LLE DVT CT angiogram of the chest revealed scattered bilateral pulmonary emboli involving both upper and lower lobes. In addition a lower extremity ultrasound revealed partial thrombosis of the left popliteal vein with occluding thrombus in the left tibial peroneal trunk. Patient hemodynamically stable in the ER, saturating 94% on RA We will start the patient on a Heparin gtt at this time--- risks, benefits, and alternative options discussed at length regarding anticoagulation therapy. The patient's daughter who is also her healthcare proxy was at bedside and all questions were answered to their satisfaction. They have verbalized understanding of the treatment plan and agree with the same. 2-D echocardiogram ordered We will monitor the patient in the PCU CKD Stage III Serum Cr at baseline Diabetes Mellitus We have continued the patient's basal insulin at decreased doses, we will up titrate based on her appetite, and blood glucose levels during hospitalization ISS ordered for additional coverage Non-specific Left Thyroid Nodule Measuring 2.2 cm in diameter on CTA Chest Discussed findings with patient, daughter--advised them to f/u as outpatient Risks and concerns for possible malignancy discussed, patient will need USPSTF guideline based screening done as an outpatient after discharge BERYL on CPAP May allow home CPAP / BIPAP use Questionable History of COPD/Asthma Records including PFTs and Bronchial Provocation Test noted from 11/2017--normal studies with no evidence of underlying COPD/Asthma HTN Cont Meds as ordered DLP Cont Pravastatin Depression Cont Duloxetine Morbid obestiy Complicating medical care DVT prophylaxis Heparin gtt MIKE HILL MD Jul 06, 2018 16:33
[2018-07-06] MEDS: HEPARIN DRIP 25,000 UNITS in APPROPRIATE DILUENT 1 EA IV SCH (16:50)
[2018-07-06 17:35] VITALS: BP 136/68
[2018-07-06] MEDS: HumaLOG INSULIN (NovoLOG) PER UNIT SC SCH ×2 (18:16→21:00)
--- NOTE | 2018-07-06 19:52 | ECGEPIP ---
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
[2018-07-06 20:00] VITALS: BP 128/54
[2018-07-06] MEDS: amLODIPine 10 MG TAB PO SCH (21:29)
[2018-07-06] MEDS: GABAPENTIN 100 MG CAP PO SCH (21:30)
[2018-07-06] MEDS: HumuLIN (NovoLIN)70/30 INSULIN INJ PER UNIT SC SCH (21:31)
[2018-07-06] MEDS: ALBUTEROL 90 MCG/ACT 8GM HFA INHALER INH PRN (21:57)
[2018-07-06 23:59] VITALS: BP 154/67
[2018-07-07] VITALS (7 sets, daily range): BP systolic 107–140; BP diastolic 50–69
[2018-07-07 04:03] LABS: HEMATOCRIT 30.3 % (36.0-47.0); HEMOGLOBIN 9.6 g/dl (12.0-15.5); MEAN CORPUSCULAR HEMOGLOBIN 28.7 pg (27.0-33.0); MEAN CORPUSCULAR HGB CONC 31.7 g/dl (32.0-36.5); MEAN CORPUSCULAR VOLUME 90.4 fl (80.0-96.0); PLATELET COUNT, AUTOMATED 223 10^3/uL (150-450); RED BLOOD COUNT 3.35 10^6/uL (4.00-5.40); WHITE BLOOD COUNT 5.2 10^3/uL (4.0-10.0)
[2018-07-07 04:22] LABS: CALCIUM LEVEL 8.5 MG/DL (8.8-10.2); CREATININE FOR GFR 1.41 MG/DL (0.55-1.30); GLOMERULAR FILTRATION RATE 39.7 (>45); MAGNESIUM LEVEL 1.7 MG/DL (1.8-2.4); POTASSIUM SERUM 3.8 MEQ/L (3.5-5.1)
[2018-07-07] MEDS: HumuLIN (NovoLIN)70/30 INSULIN INJ PER UNIT SC SCH ×2 (08:00→21:17)
[2018-07-07] MEDS: HEPARIN DRIP 25,000 UNITS in APPROPRIATE DILUENT 1 EA IV SCH (08:29)
[2018-07-07] MEDS: amLODIPine 10 MG TAB PO SCH ×2 (08:30→21:16)
[2018-07-07] MEDS: DULoxetine 20 MG CAP (CYMBALTA) PO SCH (08:30)
[2018-07-07] MEDS: CHLORTHALIDONE 25 MG TAB PO SCH (08:30)
[2018-07-07] MEDS: PRAVASTATIN 20 MG TAB PO SCH (08:31)
[2018-07-07] MEDS: ACETAMINOPHEN 500 MG TAB PO PRN ×3 (08:31→21:17)
[2018-07-07] MEDS: HumaLOG INSULIN (NovoLOG) PER UNIT SC SCH ×4 (08:32→21:00)
[2018-07-07] MEDS ORDERED: MAGNESIUM OXIDE 400 MG TAB (MAG-OX) PO ONE (09:00)
--- NOTE | 2018-07-07 11:25 | IPNPDOC ---
Subjective Date Seen The patient was seen on 07/07/18. Subjective Chief Complaint/HPI Patient seen and examined at the bedside. She states that she is "very frustrated and upset" about the fact that she was recently admitted at [facility] for 2 weeks, and had to come back because of SOB, and now with the news of having blood clots in her lungs and leg. She denies any chest pain, palpitations, abdominal pain. She remains saturating 94% on RA. Objective Physical Examination General Exam: Positive: Alert, Cooperative, No Acute Distress, Other (morbidly obese appearing female laying in bed) ENT Exam: Positive: Atraumatic, Mucous membr. moist/pink Chest Exam: Positive: Diminished; Negative: Wheezing Heart Exam: Positive: Rate Normal, Regular Rhythm, Normal S1, Normal S2 Telemetry: Positive: Sinus Abdomen Exam: Positive: Soft; Negative: Tenderness Extremity Exam: Positive: Swelling (1+ pitting edema in the lower extremities bilaterally); Negative: Tenderness Psych Exam: Positive: Oriented x 3 Assessment /Plan Plan/VTE VTE Prophylaxis Ordered?: Yes Plan SOB, Fatigue 2/2 Bilateral Pulmonary Emboli with LLE DVT CT angiogram of the chest revealed scattered bilateral pulmonary emboli involving both upper and lower lobes. In addition a lower extremity ultrasound revealed partial thrombosis of the left popliteal vein with occluding thrombus in the left tibial peroneal trunk. Patient hemodynamically stable in the ER, saturating 94% on RA Cont on a Heparin gtt at this time--- risks, benefits, and alternative options discussed at length regarding anticoagulation therapy. The patient's daughter who is also her healthcare proxy was at bedside and all questions were answered to their satisfaction. They have verbalized understanding of the treatment plan and agree with the same. 2-D echocardiogram pending We will monitor the patient in the PCU CKD Stage III Serum Cr at baseline Diabetes Mellitus We have continued the patient's basal insulin at decreased doses, we will up titrate based on her appetite, and blood glucose levels during hospitalization ISS ordered for additional coverage Non-specific Left Thyroid Nodule Measuring 2.2 cm in diameter on CTA Chest Discussed findings with patient, daughter--advised them to f/u as outpatient--They tell me this was worked up before in the past and was benign Risks and concerns for possible malignancy discussed, patient will need USPSTF guideline based screening done as an outpatient after discharge BERYL on CPAP May allow home CPAP / BIPAP use Questionable History of COPD/Asthma Records including PFTs and Bronchial Provocation Test noted from 11/2017--normal studies with no evidence of underlying COPD/Asthma HTN Cont Meds as ordered DLP Cont Pravastatin Depression Cont Duloxetine Morbid obestiy Complicating medical care DVT prophylaxis Heparin gtt Dispo--pending continued clinical improvement. VS, I&O, 24H, Fishbone Vital Signs/I&O Vital Signs Date Time Temp Pulse Resp B/P (MAP) Pulse Ox O2 Delivery O2 Flow Rate FiO2 07/07/18 08:30 59 116/62 07/07/18 08:00 97.0 22 96 07/07/18 04:00 2.0 07/06/18 17:13 Room Air I&O- Last 24 Hours up to 6 AM 07/07/18 06:00 Intake Total 200 ml Output Total 950 ml Balance -750 ml Laboratory Data 24H LABS Laboratory Tests 2 07/06/18 16:45: Activated Partial Thromboplast Time 24.1L 07/06/18 17:51: Bedside Glucose (Misc Panel) 119H 07/06/18 20:28: Bedside Glucose (Misc Panel) 150H 07/06/18 21:48: Activated Partial Thromboplast Time 76.7H 07/07/18 03:54: Nucleated Red Blood Cells % (auto) 0.0, Activated Partial Thromboplast Time 57.5H, Anion Gap 6L, Glomerular Filtration Rate 39.7L, Blood Urea Nitrogen 31H, Creatinine 1.41H, Sodium Level 143, Potassium Level 3.8, Chloride Level 110H, Carbon Dioxide Level 27, Calcium Level 8.5#L, Magnesium Level 1.7L 07/07/18 10:01: Activated Partial Thromboplast Time 50.7H CBC/BMP Laboratory Tests 07/07/18 03:54 Red Blood Count 3.35 L, Mean Corpuscular Volume 90.4, Mean Corpuscular Hemoglobin 28.7, Mean Corpuscular Hemoglobin Concent 31.7 L, Red Cell Distribution Width 13.2, Calcium Level 8.5 #L Microbiology Microbiology 07/06/18 Blood Culture, Received Pending 07/06/18 Blood Culture, Received Pending MIKE HILL MD Jul 07, 2018 11:25
[2018-07-07] MEDS: FLUTICASONE PROP 0.05% NASAL SPRAY 16 GM (FLONASE) NARES SCH (12:30)
[2018-07-07] MEDS: GABAPENTIN 100 MG CAP PO SCH (21:17)
[2018-07-08] MEDS: HEPARIN DRIP 25,000 UNITS in APPROPRIATE DILUENT 1 EA IV SCH ×2 (00:33→17:51)
[2018-07-08 04:00] VITALS: BP 129/63
[2018-07-08 06:06] LABS: HEMATOCRIT 32.4 % (36.0-47.0); HEMOGLOBIN 10.3 g/dl (12.0-15.5); MEAN CORPUSCULAR HEMOGLOBIN 28.8 pg (27.0-33.0); MEAN CORPUSCULAR HGB CONC 31.8 g/dl (32.0-36.5); MEAN CORPUSCULAR VOLUME 90.5 fl (80.0-96.0); PLATELET COUNT, AUTOMATED 244 10^3/uL (150-450); RED BLOOD COUNT 3.58 10^6/uL (4.00-5.40); WHITE BLOOD COUNT 3.6 10^3/uL (4.0-10.0)
[2018-07-08 06:34] LABS: CALCIUM LEVEL 8.8 MG/DL (8.8-10.2); CREATININE FOR GFR 1.56 MG/DL (0.55-1.30); GLOMERULAR FILTRATION RATE 35.3 (>45); POTASSIUM SERUM 3.9 MEQ/L (3.5-5.1)
[2018-07-08 08:00] VITALS: BP 120/58
[2018-07-08] MEDS: HumuLIN (NovoLIN)70/30 INSULIN INJ PER UNIT SC SCH ×2 (08:00→20:52)
[2018-07-08] MEDS: CHLORTHALIDONE 25 MG TAB PO SCH (09:31)
[2018-07-08] MEDS: DULoxetine 20 MG CAP (CYMBALTA) PO SCH (09:31)
[2018-07-08] MEDS: ACETAMINOPHEN 500 MG TAB PO PRN (09:32)
[2018-07-08] MEDS: amLODIPine 10 MG TAB PO SCH ×2 (09:32→20:48)
[2018-07-08] MEDS: PRAVASTATIN 20 MG TAB PO SCH (09:32)
[2018-07-08] MEDS: HumaLOG INSULIN (NovoLOG) PER UNIT SC SCH ×4 (09:33→20:51)
[2018-07-08] MEDS: FLUTICASONE PROP 0.05% NASAL SPRAY 16 GM (FLONASE) NARES SCH (09:34)
--- NOTE | 2018-07-08 09:43 | ECHO ---
DATE OF STUDY: 07/07/2018 REFERRING PROVIDER: Cullen Saunders MD PATIENT LOCATION: Room 3225. REASON FOR THE ECHOCARDIOGRAM: Congestive heart failure (CHF). 2D MEASUREMENTS: IVS: 1.0 cm LVPW: 1.0 cm LV: 5.3 cm LA: 3.5 cm Aorta: 3.5 cm DOPPLER MEASUREMENTS: Peak velocity across the aortic valve: 1.3 m/s Peak velocity across the LVOT: 1.1 m/s Mitral E: 0.98 Mitral A: 0.82 with a ratio of 1.2 2D COMMENTS: 1. Normal left ventricular size, wall thickness, and normal global left ventricular systolic function. The estimated left ventricular systolic ejection fraction is 60% to 65%. 2. Normal left atrium. Normal right atrium and right ventricle. 3. The atrial septum appeared to be normal without evidence of defect or shunt. 4. Normal aortic root. 5. Trace to small pericardial effusion noted. No evidence of cardiac tamponade. 6. The aortic valve appeared to be normal in limited views, as well as the mitral valve and the tricuspid valve. The pulmonic valve also appeared to be normal. The proximal pulmonary artery branches were not well visualized. 7. The inferior vena cava was not visualized. DOPPLER: No significant valvular abnormalities detected but trace tricuspid and pulmonic regurgitation. Assessment of pulmonary artery systolic pressure was not determined because of inadequate tricuspid valve regurgitation elicited. IMPRESSION: 1. Normal global left ventricular systolic and diastolic function. 2. Trace mitral regurgitation. 3. Trace tricuspid regurgitation. 4. Trace to small pericardial effusion noted in limited views. No evidence of cardiac tamponade. 5. The study was technically limited due to poor acoustic window. 6. This was compared with the most recent echocardiogram report on 04/03/2018, no significant changes. MTDD
[2018-07-08 12:00] VITALS: BP 133/68
--- NOTE | 2018-07-08 13:54 | IPNPDOC ---
Subjective Date Seen The patient was seen on 07/08/18. Subjective Chief Complaint/HPI Patient seen and examined at the bedside. Denies any complaints of shortness of breath, chest pain, palpitations this morning. She does complain of chronic right knee pain, otherwise denies any other acute issues. Objective Physical Examination General Exam: Positive: Alert, Cooperative, No Acute Distress, Other (morbidly obese appearing female laying in bed) ENT Exam: Positive: Atraumatic, Mucous membr. moist/pink Chest Exam: Positive: Diminished; Negative: Wheezing Heart Exam: Positive: Rate Normal, Regular Rhythm, Normal S1, Normal S2 Telemetry: Positive: Sinus Abdomen Exam: Positive: Soft; Negative: Tenderness Extremity Exam: Positive: Swelling (1+ pitting edema in the lower extremities bilaterally); Negative: Tenderness Psych Exam: Positive: Oriented x 3 A-FIB/CHADSVASC A-FIB History Current/History of A-Fib/PAF?: No Assessment /Plan Plan/VTE VTE Prophylaxis Ordered?: Yes Plan SOB, Fatigue 2/2 Bilateral Pulmonary Emboli with LLE DVT CT angiogram of the chest revealed scattered bilateral pulmonary emboli invol ving both upper and lower lobes. In addition a lower extremity ultrasound revealed partial thrombosis of the left popliteal vein with occluding thrombus in the left tibial peroneal trunk. Patient hemodynamically stable, saturating 98% on RA Cont on a Heparin gtt at this time--- risks, benefits, and alternative options discussed at length regarding anticoagulation therapy. The patient's daughter wh o is also her healthcare proxy was at bedside and all questions were answered to their satisfaction. They have verbalized understanding of the treatment plan and agree with the same. 2-D echocardiogram with no RV strain noted We will monitor the patient in the PCU CKD Stage III Serum Cr at baseline Diabetes Mellitus We have continued the patient's basal insulin at decreased doses, we will up tit rate based on her appetite, and blood glucose levels during hospitalization ISS ordered for additional coverage Non-specific Left Thyroid Nodule Measuring 2.2 cm in diameter on CTA Chest Discussed findings with patient, daughter--advised them to f/u as outpatient--They tell me this was worked up before in the past and was benign Risks and concerns for possible malignancy discussed, patient will need USPSTF guideline based screening done as an outpatient after discharge BERYL on CPAP May allow home CPAP / BIPAP use Questionable History of COPD/Asthma Records including PFTs and Bronchial Provocation Test noted from 11/2017--normal studies with no evidence of underlying COPD/Asthma HTN Cont Meds as ordered DLP Cont Pravastatin Depression Cont Duloxetine Morbid obestiy Complicating medical care DVT prophylaxis Heparin gtt Dispo--pending continued clinical improvement. VS, I&O, 24H, Fishbone Vital Signs/I&O Vital Signs Date Time Temp Pulse Resp B/P (MAP) Pulse Ox O2 Delivery O2 Flow Rate FiO2 07/08/18 12:00 97.1 59 20 133/68 (89) 97 07/07/18 04:00 2.0 07/06/18 17:13 Room Air I&O- Last 24 Hours up to 6 AM 07/08/18 06:00 Intake Total 1200 ml Output Total 3200 ml Balance -2000 ml Laboratory Data 24H LABS Laboratory Tests 2 07/07/18 16:54: Bedside Glucose (Misc Panel) 239H 07/07/18 17:41: Activated Partial Thromboplast Time 112.4H 07/07/18 21:14: Bedside Glucose (Misc Panel) 205H 07/07/18 23:47: Activated Partial Thromboplast Time 73.7H 07/08/18 05:43: Nucleated Red Blood Cells % (auto) 0.0, Activated Partial Thromboplast Time 72.0H, Anion Gap 4L, Glomerular Filtration Rate 35.3L, Blood Urea Nitrogen 25H, Creatinine 1.56H, Sodium Level 146H, Potassium Level 3.9, Chloride Level 113H, Carbon Dioxide Level 29, Calcium Level 8.8 07/08/18 12:03: Bedside Glucose (Misc Panel) 226H CBC/BMP Laboratory Tests 07/08/18 05:43 Red Blood Count 3.58 L, Mean Corpuscular Volume 90.5, Mean Corpuscular Hemoglobin 28.8, Mean Corpuscular Hemoglobin Concent 31.8 L, Red Cell Distribution Width 13.0, Calcium Level 8.8 Microbiology Microbiology 07/06/18 Blood Culture - Preliminary, Resulted No Growth after 48 hours. All Specime... 07/06/18 Blood Culture - Preliminary, Resulted No Growth after 48 hours. All Specime... 07/08/18 Stool Occult Blood (HUSAM) - Final, Complete MIKE HILL MD Jul 08, 2018 13:54
[2018-07-08 16:00] VITALS: BP 127/70
[2018-07-08] MEDS: DOCUSATE SODIUM 100 MG CAP PO SCH ×2 (17:41→20:44)
[2018-07-08 20:00] VITALS: BP 138/44
[2018-07-08] MEDS: GABAPENTIN 100 MG CAP PO SCH (20:44)
[2018-07-08 23:59] VITALS: BP 125/59
[2018-07-09 04:00] VITALS: BP 123/65
[2018-07-09 05:46] LABS: HEMATOCRIT 31.6 % (36.0-47.0); HEMOGLOBIN 10.1 g/dl (12.0-15.5); MEAN CORPUSCULAR HEMOGLOBIN 28.8 pg (27.0-33.0); PLATELET COUNT, AUTOMATED 248 10^3/uL (150-450); RED BLOOD COUNT 3.51 10^6/uL (4.00-5.40); WHITE BLOOD COUNT 4.6 10^3/uL (4.0-10.0)
[2018-07-09 06:05] LABS: CALCIUM LEVEL 8.7 MG/DL (8.8-10.2); CREATININE FOR GFR 1.5 MG/DL (0.55-1.30); POTASSIUM SERUM 3.6 MEQ/L (3.5-5.1)
[2018-07-09 08:00] VITALS: BP 124/60
[2018-07-09] MEDS: DULoxetine 20 MG CAP (CYMBALTA) PO SCH (09:28)
[2018-07-09] MEDS: DOCUSATE SODIUM 100 MG CAP PO SCH ×2 (09:28→21:36)
[2018-07-09] MEDS: PRAVASTATIN 20 MG TAB PO SCH (09:29)
[2018-07-09] MEDS: amLODIPine 10 MG TAB PO SCH ×2 (09:29→21:37)
[2018-07-09] MEDS: CHLORTHALIDONE 25 MG TAB PO SCH (09:29)
[2018-07-09] MEDS: FLUTICASONE PROP 0.05% NASAL SPRAY 16 GM (FLONASE) NARES SCH (09:29)
[2018-07-09] MEDS: HumaLOG INSULIN (NovoLOG) PER UNIT SC SCH ×4 (09:30→21:38)
[2018-07-09] MEDS: HumuLIN (NovoLIN)70/30 INSULIN INJ PER UNIT SC SCH ×2 (09:34→23:58)
[2018-07-09] MEDS: HEPARIN DRIP 25,000 UNITS in APPROPRIATE DILUENT 1 EA IV SCH (11:07)
[2018-07-09] MEDS ORDERED: ELIQ5TAB PO (11:30)
[2018-07-09 12:00] VITALS: BP 119/64
--- NOTE | 2018-07-09 12:14 | IPNPDOC ---
Subjective Date Seen The patient was seen on 07/09/18. Subjective Chief Complaint/HPI Patient seen and examined at bedside. Denies any complaints of chest pain, palpitations, or shortness of breath. Objective Physical Examination General Exam: Positive: Alert, Cooperative, No Acute Distress, Other (morbidly obese appearing female sitting in a chair) ENT Exam: Positive: Atraumatic, Mucous membr. moist/pink Chest Exam: Positive: Diminished; Negative: Wheezing Heart Exam: Positive: Rate Normal, Regular Rhythm, Normal S1, Normal S2 Telemetry: Positive: Sinus Abdomen Exam: Positive: Soft; Negative: Tenderness Extremity Exam: Positive: Swelling (1+ pitting edema in the lower extremities bilaterally); Negative: Tenderness Psych Exam: Positive: Oriented x 3 A-FIB/CHADSVASC A-FIB History Current/History of A-Fib/PAF?: No Assessment /Plan Plan/VTE VTE Prophylaxis Ordered?: Yes Plan SOB, Fatigue 2/2 Bilateral Pulmonary Emboli with LLE DVT CT angiogram of the chest revealed scattered bilateral pulmonary emboli i nvolving both upper and lower lobes. In addition a lower extremity ultrasound revealed partial thrombosis of the left popliteal vein with occluding thrombus in the left tibial peroneal trunk. Patient hemodynamically stable, saturating 98% on RA Cont on a Heparin gtt at this time--- risks, benefits, and alternative options discussed at length regarding anticoagulation therapy. The patient's daughter who is also her healthcare proxy was at bedside and all questions were answered to their satisfaction. They have verbalized understanding of the treatment plan and agree with the same. 2-D echocardiogram with no RV strain noted We will monitor the patient in the PCU CKD Stage III Serum Cr at baseline Diabetes Mellitus We have continued the patient's basal insulin at decreased doses, we will up titrate based on her appetite, and blood glucose levels during hospitalization ISS ordered for additional coverage Non-specific Left Thyroid Nodule Measuring 2.2 cm in diameter on CTA Chest Discussed findings with patient, daughter--advised them to f/u as outpatient--They tell me this was worked up before in the past and was benign Risks and concerns for possible malignancy discussed, patient will need USPSTF guideline based screening done as an outpatient after discharge BERYL on CPAP May allow home CPAP / BIPAP use Questionable History of COPD/Asthma Records including PFTs and Bronchial Provocation Test noted from 11/2017--normal studies with no evidence of underlying COPD/Asthma HTN Cont Meds as ordered DLP Cont Pravastatin Depression Cont Duloxetine Morbid obestiy Complicating medical care DVT prophylaxis Heparin gtt Dispo--pending continued clinical improvement, PT evaluation. VS, I&O, 24H, Fishbone Vital Signs/I&O Vital Signs Date Time Temp Pulse Resp B/P (MAP) Pulse Ox O2 Delivery O2 Flow Rate FiO2 07/09/18 09:29 60 124/60 07/09/18 08:00 97.6 20 99 07/07/18 04:00 2.0 07/06/18 17:13 Room Air I&O- Last 24 Hours up to 6 AM 07/09/18 06:00 Intake Total 1765 ml Output Total 4500 ml Balance -2735 ml Laboratory Data 24H LABS Laboratory Tests 2 07/08/18 12:03: Bedside Glucose (Misc Panel) 226H 07/08/18 17:06: Bedside Glucose (Misc Panel) 314H 07/08/18 20:38: Bedside Glucose (Misc Panel) 340H 07/09/18 05:13: Nucleated Red Blood Cells % (auto) 0.0, Activated Partial Thromboplast Time 59.3H, Anion Gap 4L, Glomerular Filtration Rate 37.0L, Blood Urea Nitrogen 31H, Creatinine 1.50H, Sodium Level 143, Potassium Level 3.6, Chloride Level 112H, Carbon Dioxide Level 27, Calcium Level 8.7L CBC/BMP Laboratory Tests 07/09/18 05:13 Red Blood Count 3.51 L, Mean Corpuscular Volume 90.0, Mean Corpuscular Hem oglobin 28.8, Mean Corpuscular Hemoglobin Concent 32.0, Red Cell Distribution Width 13.1, Calcium Level 8.7 L Microbiology Microbiology 07/06/18 Blood Culture - Preliminary, Resulted No Growth after 72 hours. All specime... 07/06/18 Blood Culture - Preliminary, Resulted No Growth after 72 hours. All specime... 07/08/18 Stool Occult Blood (HUSAM) - Final, Complete MIKE HILL MD Jul 09, 2018 12:14
[2018-07-09 16:00] VITALS: BP 129/63
[2018-07-09] MEDS: ALBUTEROL 90 MCG/ACT 8GM HFA INHALER INH PRN (16:17)
[2018-07-09] MEDS: ACETAMINOPHEN 500 MG TAB PO PRN (16:20)
[2018-07-09 20:00] VITALS: BP 121/58
[2018-07-09] MEDS: GABAPENTIN 100 MG CAP PO SCH (21:37)
[2018-07-09 23:56] VITALS: BP 143/66
[2018-07-10] VITALS (7 sets, daily range): BP systolic 125–164; BP diastolic 56–78
[2018-07-10] MEDS: HEPARIN DRIP 25,000 UNITS in APPROPRIATE DILUENT 1 EA IV SCH (01:42)
[2018-07-10] MEDS: ALBUTEROL 90 MCG/ACT 8GM HFA INHALER INH PRN (03:21)
[2018-07-10] MEDS: ACETAMINOPHEN 500 MG TAB PO PRN (03:22)
[2018-07-10 06:19] LABS: HEMATOCRIT 33.7 % (36.0-47.0); HEMOGLOBIN 10.8 g/dl (12.0-15.5); MEAN CORPUSCULAR HEMOGLOBIN 28.5 pg (27.0-33.0); MEAN CORPUSCULAR VOLUME 88.9 fl (80.0-96.0); PLATELET COUNT, AUTOMATED 262 10^3/uL (150-450); RED BLOOD COUNT 3.79 10^6/uL (4.00-5.40)
[2018-07-10 06:41] LABS: CALCIUM LEVEL 9.3 MG/DL (8.8-10.2); CREATININE FOR GFR 1.49 MG/DL (0.55-1.30); GLOMERULAR FILTRATION RATE 37.3 (>45); POTASSIUM SERUM 3.6 MEQ/L (3.5-5.1)
[2018-07-10] MEDS: HumuLIN (NovoLIN)70/30 INSULIN INJ PER UNIT SC SCH ×2 (08:46→21:00)
[2018-07-10] MEDS: HumaLOG INSULIN (NovoLOG) PER UNIT SC SCH ×4 (08:46→21:10)
[2018-07-10] MEDS: DOCUSATE SODIUM 100 MG CAP PO SCH ×2 (08:47→21:09)
[2018-07-10] MEDS: PRAVASTATIN 20 MG TAB PO SCH (08:47)
[2018-07-10] MEDS: amLODIPine 10 MG TAB PO SCH ×2 (08:47→21:09)
[2018-07-10] MEDS: CHLORTHALIDONE 25 MG TAB PO SCH (08:47)
[2018-07-10] MEDS: DULoxetine 20 MG CAP (CYMBALTA) PO SCH (08:47)
[2018-07-10] MEDS: FLUTICASONE PROP 0.05% NASAL SPRAY 16 GM (FLONASE) NARES SCH (08:48)
[2018-07-10] MEDS: APIXABAN 5 MG TAB (ELIQUIS) PO SCH ×2 (09:48→21:08)
--- NOTE | 2018-07-10 11:28 | IPNPDOC ---
Subjective Date Seen The patient was seen on 07/10/18. Subjective Chief Complaint/HPI Patient seen and examined at bedside. Denies any complaints of chest pain, palpitations, or shortness of breath. She did work with physical therapy yesterday, and notes that she thinks that she will need rehabilitation. Otherwise, no acute overnight events noted. Objective Physical Examination General Exam: Positive: Alert, Cooperative, No Acute Distress ENT Exam: Positive: Atraumatic, Mucous membr. moist/pink Chest Exam: Positive: Diminished Heart Exam: Positive: Rate Normal, Regular Rhythm, Normal S1, Normal S2 Telemetry: Positive: Sinus Abdomen Exam: Positive: Soft; Negative: Tenderness Extremity Exam: Negative: Tenderness, Swelling Psych Exam: Positive: Oriented x 3 A-FIB/CHADSVASC A-FIB History Current/History of A-Fib/PAF?: No Assessment /Plan Plan/VTE VTE Prophylaxis Ordered?: Yes Plan SOB 2/2 Bilateral Pulmonary Emboli with LLE DVT CT angiogram of the chest revealed scattered bilateral pulmonary emboli involving both upper and lower lobes. In addition a lower extremity ultrasound revealed partial thrombosis of the left popliteal vein with occluding thrombus in the left tibial peroneal trunk. Patient hemodynamically stable, saturating 98% on RA Heparin gtt transitioned to Eliquis--- risks, benefits, and alternative options discussed at length regarding anticoagulation therapy. The patient's daughter who is also her healthcare proxy was at bedside and all questions were answered to their satisfaction. They have verbalized understanding of the treatment plan and agree with the same. 2-D echocardiogram with no RV strain noted We will monitor the patient in the PCU CKD Stage III Serum Cr at baseline Diabetes Mellitus We have continued the patient's basal insulin at decreased doses, we will up titrate based on her appetite, and blood glucose levels during hospitalization ISS ordered for additional coverage Non-specific Left Thyroid Nodule Measuring 2.2 cm in diameter on CTA Chest Discussed findings with patient, daughter--advised them to f/u as outpatient--They tell me this was worked up before in the past and was benign Risks and concerns for possible malignancy discussed, patient will need USPSTF guideline based screening done as an outpatient after discharge BERYL on CPAP May allow home CPAP / BIPAP use Questionable History of COPD/Asthma Records including PFTs and Bronchial Provocation Test noted from 11/2017--normal studies with no evidence of underlying COPD/Asthma HTN Cont Meds as ordered DLP Cont Pravastatin Depression Cont Duloxetine Morbid obestiy Complicating medical care DVT prophylaxis Heparin gtt Dispo--pending continued clinical improvement, PT progression--will possibly need Rehab. PFS on board VS, I&O, 24H, Fishbone Vital Signs/I&O Vital Signs Date Time Temp Pulse Resp B/P (MAP) Pulse Ox O2 Delivery O2 Flow Rate FiO2 07/10/18 08:47 57 125/60 07/10/18 07:50 97.5 20 96 07/07/18 04:00 2.0 07/06/18 17:13 Room Air I&O- Last 24 Hours up to 6 AM 07/10/18 06:00 Intake Total 2097 ml Output Total 3600 ml Balance -1503 ml Laboratory Data 24H LABS Laboratory Tests 2 07/09/18 12:00: Bedside Glucose (Misc Panel) 245H 07/09/18 12:01: Activated Partial Thromboplast Time 66.2H 07/09/18 16:36: Bedside Glucose (Misc Panel) 234H 07/09/18 17:58: Activated Partial Thromboplast Time 73.4H 07/09/18 20:57: Bedside Glucose (Misc Panel) 338H 07/10/18 03:09: Bedside Glucose (Misc Panel) 326H 07/10/18 05:52: Nucleated Red Blood Cells % (auto) 0.0, Activated Partial Thromboplast Time 86.4H, Anion Gap 5L, Glomerular Filtration Rate 37.3L, Blood Urea Nitrogen 30H, Creatinine 1.49H, Sodium Level 139, Potassium Level 3.6, Chloride Level 108H, Carbon Dioxide Level 26, Calcium Level 9.3 CBC/BMP Laboratory Tests 07/10/18 05:52 Red Blood Count 3.79 L, Mean Corpuscular Volume 88.9, Mean Corpuscular Hemoglobin 28.5, Mean Corpuscular Hemoglobin Concent 32.0, Red Cell Distribution Width 12.9, Calcium Level 9.3 Microbiology Microbiology 07/06/18 Blood Culture - Preliminary, Resulted No Growth after 72 hours. All specime... 07/06/18 Blood Culture - Preliminary, Resulted No Growth after 72 hours. All specime... 07/08/18 Stool Occult Blood (HUSAM) - Final, Complete MIKE HILL MD Jul 10, 2018 11:28
[2018-07-10] MEDS: SENNA 8.6 MG TAB (SENOKOT) PO SCH (21:09)
[2018-07-10] MEDS: GABAPENTIN 100 MG CAP PO SCH (21:09)
[2018-07-11 04:00] VITALS: BP 118/60
[2018-07-11 06:13] LABS: HEMATOCRIT 35.2 % (36.0-47.0); HEMOGLOBIN 11.3 g/dl (12.0-15.5); MEAN CORPUSCULAR HEMOGLOBIN 28.7 pg (27.0-33.0); MEAN CORPUSCULAR HGB CONC 32.1 g/dl (32.0-36.5); MEAN CORPUSCULAR VOLUME 89.3 fl (80.0-96.0); PLATELET COUNT, AUTOMATED 245 10^3/uL (150-450); RED BLOOD COUNT 3.94 10^6/uL (4.00-5.40)
[2018-07-11 06:36] LABS: CALCIUM LEVEL 9.5 MG/DL (8.8-10.2); CREATININE FOR GFR 1.59 MG/DL (0.55-1.30); GLOMERULAR FILTRATION RATE 34.6 (>45)
[2018-07-11 08:00] VITALS: BP 139/64
[2018-07-11] MEDS: HumaLOG INSULIN (NovoLOG) PER UNIT SC SCH ×4 (08:26→21:56)
[2018-07-11] MEDS: HumuLIN (NovoLIN)70/30 INSULIN INJ PER UNIT SC SCH ×2 (08:27→21:00)
[2018-07-11] MEDS: DULoxetine 20 MG CAP (CYMBALTA) PO SCH (08:27)
[2018-07-11] MEDS: APIXABAN 5 MG TAB (ELIQUIS) PO SCH ×2 (08:28→21:58)
[2018-07-11] MEDS: amLODIPine 10 MG TAB PO SCH ×2 (08:28→22:00)
[2018-07-11] MEDS: DOCUSATE SODIUM 100 MG CAP PO SCH ×2 (08:28→21:58)
[2018-07-11] MEDS: CHLORTHALIDONE 25 MG TAB PO SCH (08:28)
[2018-07-11] MEDS: SENNA 8.6 MG TAB (SENOKOT) PO SCH ×2 (08:29→22:00)
[2018-07-11] MEDS: FLUTICASONE PROP 0.05% NASAL SPRAY 16 GM (FLONASE) NARES SCH (08:32)
[2018-07-11] MEDS: PRAVASTATIN 20 MG TAB PO SCH (08:32)
[2018-07-11] MEDS: ACETAMINOPHEN 500 MG TAB PO PRN (10:08)
--- NOTE | 2018-07-11 10:53 | IPNPDOC ---
Subjective Date Seen The patient was seen on 07/11/18. Subjective Chief Complaint/HPI Seen and examined at the bedside. Denies any acute complaints this time. Reports that she has been working with physical therapy. Objective Physical Examination General Exam: Positive: Alert, Cooperative, No Acute Distress ENT Exam: Positive: Atraumatic, Mucous membr. moist/pink Chest Exam: Positive: Diminished Heart Exam: Positive: Rate Normal, Regular Rhythm, Normal S1, Normal S2 Telemetry: Positive: Sinus Abdomen Exam: Positive: Soft; Negative: Tenderness Extremity Exam: Negative: Tenderness, Swelling Psych Exam: Positive: Oriented x 3 A-FIB/CHADSVASC A-FIB History Current/History of A-Fib/PAF?: No Assessment /Plan Plan/VTE VTE Prophylaxis Ordered?: Yes Plan SOB 2/2 Bilateral Pulmonary Emboli with LLE DVT CT angiogram of the chest revealed scattered bilateral pulmonary emboli involving both upper and lower lobes. In addition a lower extremity ultrasound revealed partial thrombosis of the left popliteal vein with occluding thrombus in the left tibial peroneal trunk. Patient hemodynamically stable, saturating 98% on RA [facility]--- risks, benefits, and alternative options discussed at length regarding anticoagulation therapy. The patient's daughter who is also her healthcare proxy was at bedside and all questions were answered to their satisfaction. They have verbalized understanding of the treatment plan and agree with the same. 2-D echocardiogram with no RV strain noted We will monitor the patient in the PCU CKD Stage III Serum Cr at baseline Diabetes Mellitus We have continued the patient's basal insulin at decreased doses, we will up titrate based on her appetite, and blood glucose levels during hospitalization ISS ordered for additional coverage Non-specific Left Thyroid Nodule Measuring 2.2 cm in diameter on CTA Chest Discussed findings with patient, daughter--advised them to f/u as outpatient--They tell me this was worked up before in the past and was benign Risks and concerns for possible malignancy discussed, patient will need USPSTF guideline based screening done as an outpatient with PCP after discharge BERYL on CPAP May allow home CPAP / BIPAP use Questionable History of COPD/Asthma Records including PFTs and Bronchial Provocation Test noted from 11/2017--normal studies with no evidence of underlying COPD/Asthma HTN Cont Meds as ordered DLP Cont Pravastatin Depression Cont Duloxetine Morbid obestiy Complicating medical care DVT prophylaxis on Eliquis Dispo--pending continued clinical improvement, PT progression--will possibly need Rehab. PFS on board VS, I&O, 24H, Fishbone Vital Signs/I&O Vital Signs Date Time Temp Pulse Resp B/P (MAP) Pulse Ox O2 Delivery O2 Flow Rate FiO2 07/11/18 08:28 62 139/64 07/11/18 08:00 97.6 20 96 07/07/18 04:00 2.0 07/06/18 17:13 Room Air I&O- Last 24 Hours up to 6 AM 07/11/18 06:00 Intake Total 2280 ml Output Total 6300 ml Balance -4020 ml Laboratory Data 24H LABS Laboratory Tests 2 07/10/18 11:32: Bedside Glucose (Misc Panel) 229H 07/10/18 16:26: Bedside Glucose (Misc Panel) 269H 07/10/18 20:13: Bedside Glucose (Misc Panel) 350H 07/11/18 05:51: Nucleated Red Blood Cells % (auto) 0.0, Anion Gap 6L, Glomerular Filtration Rate 34.6L, Blood Urea Nitrogen 32H, Creatinine 1.59H, Sodium Level 143, Potassium Level 4.0, Chloride Level 111H, Carbon Dioxide Level 26, Calcium Level 9.5 CBC/BMP Laboratory Tests 07/11/18 05:51 Red Blood Count 3.94 L, Mean Corpuscular Volume 89.3, Mean Corpuscular Hemoglobin 28.7, Mean Corpuscular Hemoglobin Concent 32.1, Red Cell Distribution Width 12.7, Calcium Level 9.5 Microbiology Microbiology 07/06/18 Blood Culture - Preliminary, Resulted No Growth after 72 hours. All specime... 07/06/18 Blood Culture - Preliminary, Resulted No Growth after 72 hours. All specime... 07/08/18 Stool Occult Blood (HUSAM) - Final, Complete MIKE HILL MD July 11, 2018 10:53
[2018-07-11 12:00] VITALS: BP 144/76
[2018-07-11 15:20] VITALS: BP 132/58
[2018-07-11] MEDS: GABAPENTIN 100 MG CAP PO SCH (21:58)
[2018-07-11 22:00] VITALS: BP 166/76
[2018-07-12 06:00] VITALS: BP 131/78
[2018-07-12 06:18] LABS: HEMOGLOBIN 11.3 g/dl (12.0-15.5); MEAN CORPUSCULAR HEMOGLOBIN 28.8 pg (27.0-33.0); MEAN CORPUSCULAR HGB CONC 32.3 g/dl (32.0-36.5); MEAN CORPUSCULAR VOLUME 89.1 fl (80.0-96.0); PLATELET COUNT, AUTOMATED 255 10^3/uL (150-450); RED BLOOD COUNT 3.93 10^6/uL (4.00-5.40); WHITE BLOOD COUNT 5.3 10^3/uL (4.0-10.0)
[2018-07-12 06:36] LABS: CALCIUM LEVEL 9.6 MG/DL (8.8-10.2); CREATININE FOR GFR 1.59 MG/DL (0.55-1.30); GLOMERULAR FILTRATION RATE 34.6 (>45); POTASSIUM SERUM 3.9 MEQ/L (3.5-5.1)
[2018-07-12] MEDS: HumuLIN (NovoLIN)70/30 INSULIN INJ PER UNIT SC SCH ×2 (09:19→22:40)
[2018-07-12] MEDS: SENNA 8.6 MG TAB (SENOKOT) PO SCH ×2 (09:20→22:38)
[2018-07-12] MEDS: CHLORTHALIDONE 25 MG TAB PO SCH (09:20)
[2018-07-12] MEDS: HumaLOG INSULIN (NovoLOG) PER UNIT SC SCH ×4 (09:20→22:39)
[2018-07-12] MEDS: DULoxetine 20 MG CAP (CYMBALTA) PO SCH (09:20)
[2018-07-12] MEDS: PRAVASTATIN 20 MG TAB PO SCH (09:20)
[2018-07-12] MEDS: APIXABAN 5 MG TAB (ELIQUIS) PO SCH ×2 (09:20→22:38)
[2018-07-12] MEDS: DOCUSATE SODIUM 100 MG CAP PO SCH ×2 (09:20→22:38)
[2018-07-12] MEDS: amLODIPine 10 MG TAB PO SCH ×2 (09:21→22:39)
[2018-07-12] MEDS: ACETAMINOPHEN 500 MG TAB PO PRN (09:21)
[2018-07-12] MEDS: FLUTICASONE PROP 0.05% NASAL SPRAY 16 GM (FLONASE) NARES SCH (09:22)
--- NOTE | 2018-07-12 12:29 | IPNPDOC ---
Subjective Date Seen The patient was seen on 07/12/18. Subjective Chief Complaint/HPI Patient seen and examined at the bedside. Denies any acute complaints of chest pain or shortness of breath at this time. Objective Physical Examination General Exam: Positive: Alert, Cooperative, No Acute Distress ENT Exam: Positive: Atraumatic, Mucous membr. moist/pink Chest Exam: Positive: Diminished Heart Exam: Positive: Rate Normal, Regular Rhythm, Normal S1, Normal S2 Telemetry: Positive: Sinus Abdomen Exam: Positive: Soft; Negative: Tenderness Extremity Exam: Negative: Tenderness, Swelling Psych Exam: Positive: Oriented x 3 A-FIB/CHADSVASC A-FIB History Current/History of A-Fib/PAF?: No Assessment /Plan Plan/VTE VTE Prophylaxis Ordered?: Yes Plan SOB 2/2 Bilateral Pulmonary Emboli with LLE DVT CT angiogram of the chest revealed scattered bilateral pulmonary emboli involving both upper and lower lobes. In addition a lower extremity ultrasound revealed partial thrombosis of the left popliteal vein with occluding thrombus in the left tibial peroneal trunk. Patient hemodynamically stable, saturating 98% on RA On Eliquis--- risks, benefits, and alternative options discussed at length regarding anticoagulation therapy. The patient's daughter who is also her healthcare proxy was at bedside and all questions were answered to their satisfaction. They have verbalized understanding of the treatment plan and agree with the same. 2-D echocardiogram with no RV strain noted We will monitor the patient in the PCU CKD Stage III Serum Cr at baseline Diabetes Mellitus We have continued the patient's basal insulin at decreased doses, we will up titrate based on her appetite, and blood glucose levels during hospitalization ISS ordered for additional coverage Non-specific Left Thyroid Nodule Measuring 2.2 cm in diameter on CTA Chest Discussed findings with patient, daughter--advised them to f/u as outpatient--They tell me this was worked up before in the past and was benign Risks and concerns for possible malignancy discussed, patient will need USPSTF guideline based screening done as an outpatient with PCP after discharge BERYL on CPAP May allow home CPAP / BIPAP use Questionable History of COPD/Asthma Records including PFTs and Bronchial Provocation Test noted from 11/2017--normal studies with no evidence of underlying COPD/Asthma HTN Cont Meds as ordered DLP Cont Pravastatin Depression Cont Duloxetine Morbid obestiy Complicating medical care DVT prophylaxis on Eliquis Dispo--pending continued clinical improvement, PT progression--will possibly need Rehab. PFS on board VS, I&O, 24H, Fishbone Vital Signs/I&O Vital Signs Date Time Temp Pulse Resp B/P (MAP) Pulse Ox O2 Delivery O2 Flow Rate FiO2 07/12/18 09:21 63 127/66 07/12/18 06:00 98.1 18 99 07/07/18 04:00 2.0 07/06/18 17:13 Room Air I&O- Last 24 Hours up to 6 AM 07/12/18 06:00 Intake Total 950 ml Output Total 3200 ml Balance -2250 ml Laboratory Data 24H LABS Laboratory Tests 2 07/11/18 17:15: Bedside Glucose (Misc Panel) 218H 07/11/18 20:42: Bedside Glucose (Misc Panel) 400H 07/12/18 05:49: Nucleated Red Blood Cells % (auto) 0.0, Anion Gap 5L, Glomerular Filtration Rate 34.6L, Blood Urea Nitrogen 37H, Creatinine 1.59H, Sodium Level 143, Potassium Level 3.9, Chloride Level 110H, Carbon Dioxide Level 28, Calcium Level 9.6 07/12/18 12:03: Bedside Glucose (Misc Panel) 289H CBC/BMP Laboratory Tests 07/12/18 05:49 Red Blood Count 3.93 L, Mean Corpuscular Volume 89.1, Mean Corpuscular Hemoglobin 28.8, Mean Corpuscular Hemoglobin Concent 32.3, Red Cell Distribution Width 12.8, Calcium Level 9.6 Microbiology Microbiology 07/06/18 Blood Culture - Final, Complete NO GROWTH AFTER 5 DAYS 07/06/18 Blood Culture - Final, Complete NO GROWTH AFTER 5 DAYS 07/08/18 Stool Occult Blood (HUSAM) - Final, Complete MIKE HILL MD July 12, 2018 12:29
[2018-07-12 15:00] VITALS: BP 134/52
[2018-07-12 22:00] VITALS: BP 148/64
[2018-07-12] MEDS: GABAPENTIN 100 MG CAP PO SCH (22:38)
[2018-07-13 06:00] VITALS: BP 159/68
[2018-07-13 06:33] LABS: HEMATOCRIT 35.5 % (36.0-47.0); HEMOGLOBIN 11.5 g/dl (12.0-15.5); MEAN CORPUSCULAR HEMOGLOBIN 28.9 pg (27.0-33.0); MEAN CORPUSCULAR HGB CONC 32.4 g/dl (32.0-36.5); MEAN CORPUSCULAR VOLUME 89.2 fl (80.0-96.0); PLATELET COUNT, AUTOMATED 259 10^3/uL (150-450); RED BLOOD COUNT 3.98 10^6/uL (4.00-5.40); WHITE BLOOD COUNT 5.2 10^3/uL (4.0-10.0)
[2018-07-13 06:57] LABS: CALCIUM LEVEL 9.7 MG/DL (8.8-10.2); CREATININE FOR GFR 1.53 MG/DL (0.55-1.30); GLOMERULAR FILTRATION RATE 36.2 (>45); POTASSIUM SERUM 3.6 MEQ/L (3.5-5.1)
[2018-07-13] MEDS ORDERED: HumuLIN (NovoLIN)70/30 INSULIN INJ PER UNIT SC SCH (07:30)
[2018-07-13] MEDS ORDERED: ELIQ5TAB PO (08:31)
[2018-07-13] MEDS: DOCUSATE SODIUM 100 MG CAP PO SCH (09:29)
[2018-07-13] MEDS: CHLORTHALIDONE 25 MG TAB PO SCH (09:29)
[2018-07-13] MEDS: DULoxetine 20 MG CAP (CYMBALTA) PO SCH (09:29)
[2018-07-13] MEDS: APIXABAN 5 MG TAB (ELIQUIS) PO SCH (09:29)
[2018-07-13] MEDS: PRAVASTATIN 20 MG TAB PO SCH (09:29)
[2018-07-13] MEDS: SENNA 8.6 MG TAB (SENOKOT) PO SCH (09:29)
[2018-07-13] MEDS: FLUTICASONE PROP 0.05% NASAL SPRAY 16 GM (FLONASE) NARES SCH (09:30)
[2018-07-13] MEDS: HumaLOG INSULIN (NovoLOG) PER UNIT SC SCH (09:31)
[2018-07-13 09:32] VITALS: BP 134/62
[2018-07-13] MEDS: amLODIPine 10 MG TAB PO SCH (09:32)
[2018-07-13 15:00] VITALS: BP 108/52
--- NOTE | 2018-07-13 17:23 | DS.PDOC ---
Discharge Summary General Date of Admission Jul 06, 2018 at 15:44 Date of Discharge 07/13/18 Discharge Summary PROCEDURES PERFORMED DURING STAY: None. ADMITTING/DISCHARGE DIAGNOSES: Shortness of breath secondary to bilateral pulmonary emboli Left lower extremity DVT CKD stage III Diabetes mellitus Nonspecific left thyroid nodule noted on CTA chest Obstructive sleep apnea on CPAP Morbid obesity COMPLICATIONS/CHIEF COMPLAINT: Pulmonary Emboli. HISTORY OF PRESENT ILLNESS: . 67-year-old female with past medical history of hypertension, diabetes mellitus, dyslipidemia, obstructive sleep apnea on CPAP, chronic kidney disease stage III, depression, and morbid obesity presents to the ER with a chief complaint of shortness of breath and increased lethargy over the last several days. Of note, the patient was admitted to [facility] from 06/11-06/25/18 for shortness of breath and weakness due to influenza virus. She did have a V/Q scan on 06/19/18 which showed a low probability of pulmonary embolism. She was functionally optimized with physical therapy and discharged home. The patient states that since she has been home she has been very sedentary and laying in bed or sitting on the couch for the majority of the day. Over the last several days, the patient states that she has been having more shortness of breath and fatigue. She denied any complaints of fevers, chills, cough, congestion, chest pain, palpitations, abdominal pain, or any nausea/vomiting/diarrhea. She has noted some swelling of her lower extremities, and was sent to the ER by her primary care physician for evaluation of the same. In the ER, a CT angiogram of the chest revealed scattered bilateral pulmonary emboli involving both upper and lower lobes. In addition a lower extremity ultrasound revealed partial thrombosis of the left popliteal vein with occluding thrombus in the left tibial peroneal trunk. The patient was noted to be hemodynamically stable, and saturating 94% on room air. She will be admitted to the hospitalist service for further evaluation and management. During hospitalization, the patient was initially started on a heparin drip and then transitioned over to oral anticoagulation. She has received 3 days of 10 mg by mouth twice a day of Eliquis, she will need to continue 4 more days at this dosing and then transition to 5 mg by mouth 3 times a day thereafter. The patient denied any complaints of chest pain, shortness of breath, or palpitations while hospitalized. She remained 96% on room air. A 2-D ech ocardiogram revealed no right ventricular strain. The patient was seen by physical therapy and they recommended that the be discharged to rehabilitation. Also of note, the patient was found to have a nonspecific left thyroid nodule which was extensively discussed at the bedside with the patient, she notes that she will follow up with her primary care physician for further evaluation of this, which she states has been worked up in the past. At this time, the patient states that she is feeling better and denies any acute complaints. I have advised patient to follow-up with her primary care physician within 7 days. She will be discharged to rehabilitation for further functional optimization.. DISCHARGE MEDICATIONS: Please see below. ALLERGIES: Please see below. PHYSICAL EXAMINATION ON DISCHARGE: VITAL SIGNS: Please see below. General Exam: Positive: Alert, Cooperative, No Acute Distress, Other (morbidly obese appearing female laying in bed) ENT Exam: Positive: Atraumatic, Mucous membr. moist/pink Chest Exam: Positive: Diminished; Negative: Wheezing Heart Exam: Positive: Rate Normal, Regular Rhythm, Normal S1, Normal S2 Telemetry: Positive: Sinus Abdomen Exam: Positive: Soft; Negative: Tenderness Extremity Exam: Positive: Swelling (1+ pitting edema in the lower extremities bilaterally); Negative: Tenderness Psych Exam: Positive: Oriented x 3 LABORATORY DATA: Please see below. IMAGING: DATE OF STUDY: 07/07/2018 REFERRING PROVIDER: Cullen Hill MD PATIENT LOCATION: Room [facility]. REASON FOR THE ECHOCARDIOGRAM: Congestive heart failure (CHF). 2D MEASUREMENTS: IVS: 1.0 cm LVPW: 1.0 cm LV: 5.3 cm LA: 3.5 cm Aorta: 3.5 cm DOPPLER MEASUREMENTS: Peak velocity across the aortic valve: 1.3 m/s Peak velocity across the LVOT: 1.1 m/s Mitral E: 0.98 Mitral A: 0.82 with a ratio of 1.2 2D COMMENTS: 1. Normal left ventricular size, wall thickness, and normal global left ventricular systolic function. The estimated left ventricular systolic ejection fraction is 60% to 65%. 2. Normal left atrium. Normal right atrium and right ventricle. 3. The atrial septum appeared to be normal without evidence of defect or shunt. 4. Normal aortic root. 5. Trace to small pericardial effusion noted. No evidence of cardiac tamponade. 6. The aortic valve appeared to be normal in limited views, as well as the mitral valve and the tricuspid valve. The pulmonic valve also appeared to be normal. The proximal pulmonary artery branches were not well visualized. 7. The inferior vena cava was not visualized. DOPPLER: No significant valvular abnormalities detected but trace tricuspid and pulmonic regurgitation. Assessment of pulmonary artery systolic pressure was not determined because of inadequate tricuspid valve regurgitation elicited. IMPRESSION: 1. Normal global left ventricular systolic and diastolic function. 2. Trace mitral regurgitation. 3. Trace tricuspid regurgitation. 4. Trace to small pericardial effusion noted in limited views. No evidence of cardiac tamponade. 5. The study was technically limited due to poor acoustic window. 6. This was compared with the most recent echocardiogram report on 04/03/2018, no significant changes. CHEST, PORTABLE: AP portable view of the chest is performed. Comparison 06/18/2018. There is mild cardiomegaly and vascular congestion. No infiltrates are seen. Mediastinal silhouette is unchanged compared to prior study. IMPRESSION: Mild cardiomegaly and vascular congestion with no acute infiltrate BILATERAL LOWER EXTREMITY DUPLEX DOPPLER VENOUS ULTRASOUND: Real-time compression and duplex Doppler interrogation of bilateral lower extremity deep venous systems is performed. Bilaterally the common femoral and superficial femoral arteries are fully compressible, as is the right popliteal artery, with no intraluminal thrombus. There is partial thrombosis of the left popliteal vein. There is occlusion of the left tibioperoneal trunk. Popliteal cyst is seen on the right 2.0 x 1.4 x 2.2 cm. IMPRESSION: Partial thrombosis left popliteal vein with occluding thrombus in the left tibioperoneal trunk. CT ANGIOGRAM OF THE CHEST: TECHNIQUE: Axial contrast enhanced images from the thoracic inlet to the upper abdomen using 100 mL Isovue 370 intravenous contrast material with multiplanar reformations. There are scattered small filling defects in the pulmonary arteries of both upper and lower lobes compatible with scattered bilateral pulmonary emboli. There is no thoracic aortic aneurysm or dissection. Heart is normal in size. Hypodense nodule in the left lobe of the thyroid is nonspecific, measuring about 2.2 cm in diameter. There is no evidence of mediastinal, hilar, or chest wall lymphadenopathy. There is no pleural or pericardial effusion. No infiltrate is seen in either lung. IMPRESSION: Scattered bilateral pulmonary emboli involving both upper and lower lobes. Nonspecific left thyroid nodule 2.2 cm in diameter. PROGNOSIS: Fair ACTIVITY: As tolerated. DIET: 2 g low sodium diet, fluid restriction of 1800 mL DISCHARGE PLAN: DISPOSITION: [facility]. DISCHARGE INSTRUCTIONS: Follow-up with primary care physician within 7 days. Follow-up nonspecific left thyroid nodule with PCP. DISCHARGE CONDITION: Stable. TIME SPENT ON DISCHARGE: Greater than 30 minutes. Vital Signs/I&Os Vital Signs Date Time Temp Pulse Resp B/P (MAP) Pulse Ox O2 Delivery O2 Flow Rate FiO2 07/13/18 15:00 97.6 87 18 108/52 (70) 94 07/07/18 04:00 2.0 I&O- Last 24 Hours up to 6 AM 07/13/18 06:00 Intake Total 1680 ml Output Total 2700 ml Balance -1020 ml Laboratory Data Labs 24H Laboratory Tests 2 07/12/18 21:47: Bedside Glucose (Misc Panel) 386H 07/13/18 05:51: Nucleated Red Blood Cells % (auto) 0.0, Anion Gap 5L, Glomerular Filtration Rate 36.2L, Blood Urea Nitrogen 42H, Creatinine 1.53H, Sodium Level 143, Potassium Level 3.6, Chloride Level 111H, Carbon Dioxide Level 27, Calcium Level 9.7 07/13/18 05:58: Bedside Glucose (Misc Panel) 198H CBC/BMP Laboratory Tests 07/13/18 05:51 Red Blood Count 3.98 L, Mean Corpuscular Volume 89.2, Mean Corpuscular Hemoglobin 28.9, Mean Corpuscular Hemoglobin Concent 32.4, Red Cell Distribution Width 13.1, Calcium Level 9.7 FSBS Laboratory Tests Test 07/12/18 21:47 07/13/18 05:58 Range/Units Bedside Glucose (Misc Panel) 386 198 80-115 MG/DL Microbiology Microbiology 07/06/18 Blood Culture - Final, Complete NO GROWTH AFTER 5 DAYS 07/06/18 Blood Culture - Final, Complete NO GROWTH AFTER 5 DAYS 07/08/18 Stool Occult Blood (HUSAM) - Final, Complete Discharge Medications Scheduled Amlodipine Besylate (Amlodipine Besylate) 10 Mg Tablet, 10 MG PO BID, (Reported) Apixaban (Eliquis) 5 Mg Tablet, 1 TAB PO BID Apixaban (Eliquis) 5 Mg Tablet, 10 MG PO BID Chlorthalidone (Chlorthalidone) 50 Mg Tablet, 50 MG PO DAILY, (Reported) Duloxetine Hcl (Duloxetine HCl) 20 Mg Capsule.dr, 20 MG PO DAILY, (Reported) Ergocalciferol (Vitamin D2) (Drisdol) 50,000 Unit Cap, 100,000 UNIT PO QWEEK, ( Reported) MONDAY Fenofibrate (Fenofibrate) 160 Mg Tab, 160 MG PO DAILY, (Reported) Fluticasone Propionate (Fluticasone Propionate) 50 Mcg/Act Spr, 2 SPRAY NARES DAILY, (Reported) Gabapentin (Neurontin) 100 Mg Capsule, 100 MG PO QHS, (Reported) Insulin Glargine,Hum.rec.anlog (Toujeo Solostar) 300 Unit/1 Ml Insuln.pen, 20 UNIT SC QHS, (Reported) PATIENT HAS NOT STARTED THIS YET Insulin Lispro (Humalog Kwikpen U-100) 100 Unit/1 Ml Insuln.pen, 1 DOSE SC ASDIRECTED, (Reported) PER SLIDING SCALE Insulin NPH Hum/Reg Insulin Hm (Humulin 70-30 Vial) 100 Unit/1 Ml Vial, 90 UNITS SC QAM, (Reported) Insulin NPH Hum/Reg Insulin Hm (Humulin 70-30 Vial) 100 Unit/1 Ml Vial, 65 UNITS SC QHS, (Reported) Liraglutide (Victoza 3-Anthony) 0.6 Mg/0.1 Ml Pen.injctr, 0.6 MG SQ DAILY, (Reported) PATIENT HAS NOT STARTED Pravastatin Sodium (Pravastatin Sodium) 40 Mg Tab, 40 MG PO DAILY, (Reported) Scheduled PRN Acetaminophen (Acetaminophen) 500 Mg Tablet, 1,000 MG PO Q6H PRN for PAIN, (Reported) Albuterol Sulfate (Proair Hfa) 8.5 Gm Hfa.aer.ad, 2 PUFF INH Q4H PRN for SHORTNESS OF BREATH, (Reported) Dextrose (Glucose) 1 Chw Chw, 1 CHW PO PRN PRN for BLOOD SUGAR, (Reported) Diclofenac Sodium (Diclofenac Sodium) 1 % Gel, 1 DOSE TOP TID PRN for PAIN, (Reported) APPLY TO JOINTS OF HANDS NEEDED Allergies Coded Allergies: metoprolol (Verified Allergy, Severe, 07/06/18) LOWERS BLOOD PRESSURE TOO MUCH TAPE (Verified Allergy, Intermediate, NYLON TAPE CAUSES HIVES PER 09/09/03, 04/03/18) latex (Verified Allergy, Intermediate, RASH, 06/11/18) morphine (Verified Allergy, Intermediate, ITCHING, 06/11/18) ibuprofen (Verified Adverse Reaction, Intermediate, BLEEDING, CONSTIPATION, 06/11/18) Quinolones (Verified Adverse Reaction, Mild, DIZZINESS, 06/11/18) CULLEN HILL MD July 13, 2018 17:23
== END 2018-07-13 11:56 | DRG 299 ==
LOC: EDBD 10:26 → M ED 10:26 → M ED INP 15:44 → M PCU 17:25 → M MSPAV 07-11 15:16
PROVIDERS: ADMIT Internal Medicine; ATTEND Internal Medicine
DX: I82.442 Acute embolism and thrombosis of left tibial vein (principal); I26.99 Other pulmonary embolism without acute cor pulmonale; Z68.41 Body mass index [BMI] 40.0-44.9, adult; I12.9 Hypertensive chronic kidney disease with stage 1 through stage 4 chronic kidney disease, or unspecified chronic kidney disease; I82.432 Acute embolism and thrombosis of left popliteal vein; E11.22 Type 2 diabetes mellitus with diabetic chronic kidney disease; E78.5 Hyperlipidemia, unspecified; G47.33 Obstructive sleep apnea (adult) (pediatric); N18.3 Chronic kidney disease, stage 3 (moderate); F32.9 Major depressive disorder, single episode, unspecified; E66.01 Morbid (severe) obesity due to excess calories; E04.1 Nontoxic single thyroid nodule; Z79.4 Long term (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; Z79.899 Other long term (current) drug therapy; Z88.1 Allergy status to other antibiotic agents; Z88.5 Allergy status to narcotic agent; Z88.6 Allergy status to analgesic agent; Z88.8 Allergy status to other drugs, medicaments and biological substances; Z91.048 Other nonmedicinal substance allergy status; Z87.891 Personal history of nicotine dependence

== ENCOUNTER → 2018-07-20 | Outpatient (REF) ==
[~2018-07-20] MED LIST changes: +ACET-683 PO; +DULO1CAP PO; +ELIQ5TAB PO; +HUMA100I5 SC; +LISI-542; +METF10004; +NEUR100C PO; +PROAAER10 INH; +TOUJ1.2I SC; +VENL75CA47; +VICT18IN2 SQ
[2018-07-20 07:11] LABS: CALCIUM LEVEL 9.1 MG/DL (8.8-10.2); CREATININE FOR GFR 1.35 MG/DL (0.55-1.30); GLOMERULAR FILTRATION RATE 41.8 (>45); POTASSIUM SERUM 3.3 MEQ/L (3.5-5.1)
== END ==
PROVIDERS: ATTEND Internal Medicine
DX: I10 Essential (primary) hypertension (principal)

== ENCOUNTER → 2018-07-24 | Outpatient (REF) ==
[2018-07-24 09:27] LABS: HEMATOCRIT 35.7 % (36.0-47.0); HEMOGLOBIN 11.6 g/dl (12.0-15.5); MEAN CORPUSCULAR HEMOGLOBIN 28.4 pg (27.0-33.0); MEAN CORPUSCULAR HGB CONC 32.5 g/dl (32.0-36.5); MEAN CORPUSCULAR VOLUME 87.5 fl (80.0-96.0); PLATELET COUNT, AUTOMATED 352 10^3/uL (150-450); RED BLOOD COUNT 4.08 10^6/uL (4.00-5.40); WHITE BLOOD COUNT 7.7 10^3/uL (4.0-10.0)
[2018-07-24 09:39] LABS: CALCIUM LEVEL 9.9 MG/DL (8.8-10.2); CREATININE FOR GFR 1.4 MG/DL (0.55-1.30); GLOMERULAR FILTRATION RATE 40.1 (>45); POTASSIUM SERUM 3.7 MEQ/L (3.5-5.1)
== END ==
PROVIDERS: ATTEND Internal Medicine
DX: I10 Essential (primary) hypertension (principal)

== ENCOUNTER 2018-09-07 17:03 | Emergency (ER) | payer MEDICARE, MEDICAID ==
[~2018-09-07] VITALS: Ht 167.6 cm; Wt 120.5 kg
[~2018-09-07 17:03] MED LIST changes: -DULO1CAP PO; +DULO1CAP4 PO; +TRAZ1TAB10 PO; -TRAZO50TA PO
[2018-09-07] MEDS ORDERED: VALS1TAB49 PO (17:34)
[2018-09-07] MEDS ORDERED: MIRA3350 PO (17:34)
[2018-09-07] MEDS ORDERED: ELIQ5TAB PO (17:34)
[2018-09-07] MEDS ORDERED: MOM30SS PO (17:34)
[2018-09-07] MEDS ORDERED: K-TA10TA PO (17:34)
[2018-09-07] MEDS ORDERED: LANTINJ4 SC (17:34)
[2018-09-07] MEDS ORDERED: AMLO5TAB6 PO (17:34)
[2018-09-07] MEDS ORDERED: SENN-3 PO (17:35)
[2018-09-07] MEDS ORDERED: POTA20TA6 PO (17:36)
[2018-09-07 17:46] LABS: BASO % 0.5 % (0.0-1.0); EOS # 0.1 10^3/uL (0.0-0.50); EOS % 1.1 % (0.0-3.0); HEMATOCRIT 34.1 % (36.0-47.0); HEMOGLOBIN 11.8 g/dl (12.0-15.5); LYMPH # 1.6 10^3/uL (1.5-4.5); LYMPH % 29.7 % (24.0-44.0); MEAN CORPUSCULAR HEMOGLOBIN 29.6 pg (27.0-33.0); MEAN CORPUSCULAR HGB CONC 34.6 g/dl (32.0-36.5); MEAN CORPUSCULAR VOLUME 85.7 fl (80.0-96.0); MONO # 0.6 10^3/uL (0.0-0.8); MONO % 10.8 % (0.0-5.0); NEUTROPHILS # 3.2 10^3/uL (1.8-7.7); NEUTROPHILS % 57.7 % (36.0-66.0); PLATELET COUNT, AUTOMATED 232 10^3/uL (150-450); RED BLOOD COUNT 3.98 10^6/uL (4.00-5.40); WHITE BLOOD COUNT 5.5 10^3/uL (4.0-10.0)
--- NOTE | 2018-09-07 17:51 | REP ---
Clinical: Acute chest pain . Comparison: 07/06/2018 . Findings: The mediastinum and cardiac silhouette are stable and within normal limits for portable technique. The lung xiao are clear without acute consolidation, effusion, or pneumothorax. Skeletal structures are intact. Impression: No acute cardiopulmonary process appreciated. Electronically Signed by Hussein Barbosa MD 09/07/2018 05:43 P
[2018-09-07 18:11] LABS: BLOOD UREA NITROGEN 34 MG/DL (7-18); CALCIUM LEVEL 8.9 MG/DL (8.8-10.2); CARBON DIOXIDE LEVEL 27 MEQ/L (21-32); CHLORIDE LEVEL 96 MEQ/L (98-107); CK-MB VALUE MASS 1.7 NG/ML (<3.6); CPK CREATINE PHOSPHOKINASE 219 U/L (26-192); CREATININE FOR GFR 1.47 MG/DL (0.55-1.30); GLOMERULAR FILTRATION RATE 37.7 (>45); GLUCOSE, FASTING 360 MG/DL (70-100); MB/CK RELATIVE INDEX 0.78 (< OR =4); POTASSIUM SERUM 3.5 MEQ/L (3.5-5.1); SODIUM LEVEL 133 MEQ/L (136-145); TROPONIN I < 0.02 NG/ML (< 0.10)
[2018-09-07 21:15] LABS: CK-MB VALUE MASS 1.4 NG/ML (<3.6); CPK CREATINE PHOSPHOKINASE 203 U/L (26-192); MB/CK RELATIVE INDEX 0.69 (< OR =4); TROPONIN I < 0.02 NG/ML (< 0.10)
[2018-09-07 22:01] VITALS: BP 104/58
--- NOTE | 2018-09-08 11:19 | ECGEPIP ---
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
--- NOTE | 2018-09-08 11:20 | ECGEPIP ---
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
== END 2018-09-07 22:02 | disposition home or self-care (01) ==
LOC: EDBD 17:03 → M ED 17:03
DX: R07.89 Other chest pain (principal); R06.02 Shortness of breath; I12.9 Hypertensive chronic kidney disease with stage 1 through stage 4 chronic kidney disease, or unspecified chronic kidney disease; E78.5 Hyperlipidemia, unspecified; E11.9 Type 2 diabetes mellitus without complications; N18.3 Chronic kidney disease, stage 3 (moderate); F32.9 Major depressive disorder, single episode, unspecified; M17.11 Unilateral primary osteoarthritis, right knee; Z86.718 Personal history of other venous thrombosis and embolism; G47.33 Obstructive sleep apnea (adult) (pediatric); Z87.891 Personal history of nicotine dependence; Z88.8 Allergy status to other drugs, medicaments and biological substances; Z88.5 Allergy status to narcotic agent; Z88.6 Allergy status to analgesic agent; Z91.040 Latex allergy status; Z91.048 Other nonmedicinal substance allergy status; Z79.899 Other long term (current) drug therapy; Z79.4 Long term (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; Z79.01 Long term (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 anticoagulants

== ENCOUNTER 2018-09-09 10:18 | Emergency (ER) | payer MEDICARE, MEDICAID ==
[~2018-09-09] VITALS: Ht 167.6 cm; Wt 120.5 kg
[~2018-09-09 10:18] MED LIST changes: +K-TA10TA PO; +LANTINJ4 SC; +MIRA3350 PO; +MOM30SS PO; +POTA20TA6 PO; +SENN-3 PO; +VALS1TAB49 PO
[2018-09-09] MEDS ORDERED: traMADol 50 MG TAB PO ONE (10:45)
[2018-09-09] MEDS ORDERED: MULT-40 PO (10:54)
--- NOTE | 2018-09-09 11:54 | REP ---
Clinical: Right lower extremity right knee pain . Technique: Mota scale and color Doppler evaluation using linear high frequency transducer. Findings: Ultrasound examination of the right lower extremity deep venous structures from the common femoral vein to the popliteal vein demonstrates normal compressibility flow and wave patterns in response to respiration and augmentation. There is no evidence for deep venous thrombosis. Impression: No evidence for deep venous thrombosis. Electronically Signed by Hussein Barbosa MD 09/09/2018 11:46 A
--- NOTE | 2018-09-09 12:33 | REP ---
Clinical: Pain. Technique: AP, lateral, bilateral oblique views of the right knee. Findings: Advanced tricompartmental osteoarthritic degenerative changes are appreciated. No acute fracture or dislocation identified. No effusion. Impression: Advanced tricompartmental osteoarthritic degenerative changes. Electronically Signed by Hussein Barbosa MD 09/09/2018 12:24 P
[2018-09-09] MEDS ORDERED: WHEEMIS3 XX (13:18)
[2018-09-09] MEDS ORDERED: TRAM50TA2 PO (13:25)
[2018-09-09 14:44] VITALS: BP 113/55
== END 2018-09-09 14:49 | disposition home or self-care (01) ==
LOC: M ED 10:18 → EDBD 10:18 → M ED 14:49
DX: G89.29 Other chronic pain (principal); M25.561 Pain in right knee; E11.9 Type 2 diabetes mellitus without complications; I12.9 Hypertensive chronic kidney disease with stage 1 through stage 4 chronic kidney disease, or unspecified chronic kidney disease; N18.9 Chronic kidney disease, unspecified; E78.5 Hyperlipidemia, unspecified; G47.33 Obstructive sleep apnea (adult) (pediatric); F33.9 Major depressive disorder, recurrent, unspecified; E66.9 Obesity, unspecified; Z99.89 Dependence on other enabling machines and devices; Z79.899 Other long term (current) drug therapy; Z79.4 Long term (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; Z79.01 Long term (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 anticoagulants; Z88.1 Allergy status to other antibiotic agents; Z88.8 Allergy status to other drugs, medicaments and biological substances; Z91.040 Latex allergy status; Z91.048 Other nonmedicinal substance allergy status; Z87.891 Personal history of nicotine dependence

== ENCOUNTER 2018-09-14 14:43 | Emergency (ER) | payer MEDICARE, MEDICAID ==
[~2018-09-14] VITALS: Ht 162.6 cm; Wt 120.9 kg
[~2018-09-14 14:43] MED LIST changes: +MULT-40 PO; +TRAM50TA2 PO; +WHEEMIS3 XX
[2018-09-14 15:19] LABS: BASO # 0.1 10^3/uL (0.0-0.2); BASO % 0.8 % (0.0-1.0); EOS # 0.1 10^3/uL (0.0-0.50); EOS % 1.8 % (0.0-3.0); HEMATOCRIT 35.6 % (36.0-47.0); HEMOGLOBIN 12.1 g/dl (12.0-15.5); LYMPH # 2.2 10^3/uL (1.5-4.5); LYMPH % 34.4 % (24.0-44.0); MEAN CORPUSCULAR HEMOGLOBIN 29.7 pg (27.0-33.0); MEAN CORPUSCULAR VOLUME 87.5 fl (80.0-96.0); MONO # 0.5 10^3/uL (0.0-0.8); MONO % 8.2 % (0.0-5.0); NEUTROPHILS # 3.4 10^3/uL (1.8-7.7); NEUTROPHILS % 54.6 % (36.0-66.0); PLATELET COUNT, AUTOMATED 288 10^3/uL (150-450); RED BLOOD COUNT 4.07 10^6/uL (4.00-5.40); WHITE BLOOD COUNT 6.3 10^3/uL (4.0-10.0)
[2018-09-14] MEDS: NS 250 ML IV SCH ×4 (15:20→17:15)
[2018-09-14 16:01] LABS: ALT/SGPT 30 U/L (12-78); BILIRUBIN,TOTAL 0.2 MG/DL (0.2-1.0); BLOOD UREA NITROGEN 35 MG/DL (7-18); CALCIUM LEVEL 9.8 MG/DL (8.8-10.2); CARBON DIOXIDE LEVEL 27 MEQ/L (21-32); CHLORIDE LEVEL 102 MEQ/L (98-107); CK-MB VALUE MASS 1.3 NG/ML (<3.6); CPK CREATINE PHOSPHOKINASE 171 U/L (26-192); CREATININE FOR GFR 1.61 MG/DL (0.55-1.30); GLUCOSE, FASTING 376 MG/DL (70-100); MB/CK RELATIVE INDEX 0.76 (< OR =4); SODIUM LEVEL 137 MEQ/L (136-145); TOTAL PROTEIN 7.3 GM/DL (6.4-8.2); TROPONIN I < 0.02 NG/ML (< 0.10)
--- NOTE | 2018-09-14 17:41 | ECGEPIP ---
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
[2018-09-14] MEDS ORDERED: HumaLOG INSULIN (NovoLOG) PER UNIT SC ONE (17:45)
[2018-09-14 17:46] VITALS: BP 145/71
== END 2018-09-14 18:34 | disposition home or self-care (01) ==
LOC: M ED 14:43
DX: R55 Syncope and collapse (principal); E11.9 Type 2 diabetes mellitus without complications; I10 Essential (primary) hypertension; F32.9 Major depressive disorder, single episode, unspecified; Z86.718 Personal history of other venous thrombosis and embolism; Z86.711 Personal history of pulmonary embolism; Z87.891 Personal history of nicotine dependence; Z88.8 Allergy status to other drugs, medicaments and biological substances; Z88.5 Allergy status to narcotic agent; Z88.6 Allergy status to analgesic agent; Z91.040 Latex allergy status; Z91.048 Other nonmedicinal substance allergy status; Z79.899 Other long term (current) drug therapy; Z79.4 Long term (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; Z79.01 Long term (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 anticoagulants
CPT/HCPCS: 36415; 80053; 81240; 81241; 82232; 82550; 82553; 84484; 85025; 85240; 85245; 85246; 85300; 85301; 85302; 85303; 85305; 85306; 85379; 85610; 85613; 85730; 86146; 86147; 86148; 86849; 93005; 93041; 96360; 96361; 99285; G0463

== ENCOUNTER → 2018-09-19 | Outpatient (CLI) | payer MEDICARE, MEDICAID ==
--- NOTE | 2018-09-19 07:21 | REP ---
Clinical: History of DVT for follow up . Technique: Mota scale and color Doppler evaluation using linear high frequency transducer. Findings: Ultrasound examination of the left lower extremity deep venous structures from the common femoral vein to the popliteal vein demonstrates normal compressibility flow and wave patterns in response to respiration and augmentation. There is no evidence for deep venous thrombosis. Impression: No evidence for deep venous thrombosis. Electronically Signed by Hussein Barbosa MD 09/19/2018 07:12 A
== END ==
LOC: M RAD 06:04
PROVIDERS: ATTEND Internal Medicine
DX: M79.89 Other specified soft tissue disorders (principal)

== ENCOUNTER → 2018-10-16 | Outpatient (REF) | payer MEDICARE, MEDICAID ==
[~2018-10-16] MED LIST changes: +NITR100C2 PO; +OMEP40CA2 PO
[2018-10-16 10:42] LABS: BASO # 0.1 10^3/uL (0.0-0.2); EOS # 0.1 10^3/uL (0.0-0.50); EOS % 2.9 % (0.0-3.0); HEMATOCRIT 33.9 % (36.0-47.0); HEMOGLOBIN 11.2 g/dl (12.0-15.5); LYMPH % 40.5 % (24.0-44.0); MEAN CORPUSCULAR HEMOGLOBIN 28.6 pg (27.0-33.0); MEAN CORPUSCULAR VOLUME 86.7 fl (80.0-96.0); MONO # 0.4 10^3/uL (0.0-0.8); MONO % 9.1 % (0.0-5.0); NEUTROPHILS # 2.2 10^3/uL (1.8-7.7); NEUTROPHILS % 46.3 % (36.0-66.0); PLATELET COUNT, AUTOMATED 275 10^3/uL (150-450); RED BLOOD COUNT 3.91 10^6/uL (4.00-5.40); WHITE BLOOD COUNT 4.8 10^3/uL (4.0-10.0)
[2018-10-16 10:53] LABS: INR 1.03; PROTHROMBIN TIME 13.2 SECONDS (11.8-14.0)
[2018-10-16 11:20] LABS: ALBUMIN 3.8 GM/DL (3.2-5.2); BILIRUBIN,TOTAL 0.2 MG/DL (0.2-1.0); CALCIUM LEVEL 9.4 MG/DL (8.8-10.2); CHOLESTEROL RISK RATIO 2.583 (<5); CREATININE FOR GFR 1.16 MG/DL (0.55-1.30); FREE T4 1.01 NG/DL (0.76-1.46); GLOMERULAR FILTRATION RATE 49.6 (>45); THYROID STIMULATING HORMONE 1.34 uIU/ML (0.358-3.740); TOTAL PROTEIN 6.7 GM/DL (6.4-8.2)
[2018-10-16 11:21] LABS: TOTAL 25(OH) VITAMIN D 41.9 NG/ML (30.0-100.0)
[2018-10-18 00:14] LABS: Lyme Disease IgG/IgM Antibodie <0.91 ISR (0.00-0.90); Lyme Disease IgM Ab Quantitati <0.80 index (0.00-0.79)
== END ==
PROVIDERS: ATTEND Family Medicine
DX: Z01.818 Encounter for other preprocedural examination (principal); M25.561 Pain in right knee; E11.9 Type 2 diabetes mellitus without complications; Z79.01 Long term (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 anticoagulants

== ENCOUNTER → 2018-10-16 | Outpatient (REF) | payer MEDICARE, MEDICAID ==
[2018-10-16 10:49] LABS: APPEARANCE, URINE CLEAR (CLEAR); BACTERIA, URINE AUTO 1+ (NEGATIVE); BILIRUBIN, URINE AUTO NEGATIVE (NEGATIVE); BLOOD, URINE BLOOD NEGATIVE (NEGATIVE); COLOR, URINE YELLOW (YELLOW); GLUCOSE, URINE (UA) AUTO 3+ mg/dL (NEGATIVE); KETONE, URINE AUTO NEGATIVE (NEGATIVE); LEUKOCYTE ESTERASE, URINE AUTO NEGATIVE (NEGATIVE); MUCUS, URINE SMALL (NEGATIVE); NITRITE, URINE AUTO NEGATIVE (NEGATIVE); PROTEIN, URINE AUTO NEGATIVE (NEGATIVE); RBC, URINE AUTO 0 /HPF (0-3); SQUAMOUS EPITHELIAL CELL UR AU 2 /HPF (0-6); UROBILINOGEN, URINE AUTO 0.2 mg/dL (0.0-2.0); WBC, URINE AUTO 2 /HPF (0-3)
[2018-10-16 11:32] LABS: CREATININE, URINE 54.9 MG/DL; MALB URINE SIEMENS < 5.0 MG/L; MAU/CREAT RATIO 9.1 MCG/MG (0.0-30.0)
== END ==
PROVIDERS: ATTEND Family Medicine
DX: Z01.818 Encounter for other preprocedural examination (principal); M25.561 Pain in right knee; E11.9 Type 2 diabetes mellitus without complications; Z79.01 Long term (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 anticoagulants

== ENCOUNTER 2018-11-06 17:42 | Emergency (ER) | payer MEDICARE, MEDICAID ==
[~2018-11-06 17:42] MED LIST changes: -NITR100C2 PO; -OMEP40CA2 PO
[2018-11-06 18:37] LABS: BASO % 0.6 % (0.0-1.0); EOS # 0.1 10^3/uL (0.0-0.50); EOS % 1.7 % (0.0-3.0); HEMATOCRIT 36.9 % (36.0-47.0); HEMOGLOBIN 12.5 g/dl (12.0-15.5); LYMPH # 2.3 10^3/uL (1.5-4.5); LYMPH % 32.9 % (24.0-44.0); MEAN CORPUSCULAR HEMOGLOBIN 29.1 pg (27.0-33.0); MEAN CORPUSCULAR HGB CONC 33.9 g/dl (32.0-36.5); MONO # 0.5 10^3/uL (0.0-0.8); MONO % 7.3 % (0.0-5.0); NEUTROPHILS % 57.4 % (36.0-66.0); PLATELET COUNT, AUTOMATED 292 10^3/uL (150-450); RED BLOOD COUNT 4.29 10^6/uL (4.00-5.40)
[2018-11-06 19:11] LABS: ALBUMIN 4.1 GM/DL (3.2-5.2); ALT/SGPT 33 U/L (12-78); BILIRUBIN,DIRECT < 0.1 MG/DL (0.0-0.2); BILIRUBIN,TOTAL 0.2 MG/DL (0.2-1.0); BLOOD UREA NITROGEN 28 MG/DL (7-18); CALCIUM LEVEL 9.9 MG/DL (8.8-10.2); CARBON DIOXIDE LEVEL 29 MEQ/L (21-32); CHLORIDE LEVEL 101 MEQ/L (98-107); CREATININE FOR GFR 1.57 MG/DL (0.55-1.30); GLUCOSE, FASTING 296 MG/DL (70-100); LIPASE 103 U/L (73-393); POTASSIUM SERUM 3.6 MEQ/L (3.5-5.1); SODIUM LEVEL 136 MEQ/L (136-145)
[2018-11-06] MEDS ORDERED: AMLO5TAB6 PO (19:14)
[2018-11-06] MEDS ORDERED: DULO1CAP4 PO (19:14)
[2018-11-06 20:06] LABS: INR 1.07; PROTHROMBIN TIME 13.6 SECONDS (11.8-14.0)
--- NOTE | 2018-11-06 21:07 | REPVR ---
EXAM: CT Abdomen and Pelvis Without Contrast EXAM DATE/TIME: 11/06/2018 7:54 PM CLINICAL HISTORY: 68 years old, female; Abdominal pain; Generalized TECHNIQUE: Imaging protocol: Computed tomography images of the abdomen and pelvis without contrast. Radiation optimization: All CT scans at this facility use at least one of these dose optimization techniques: automated exposure control; mA and/or kV adjustment per patient size (includes targeted exams where dose is matched to clinical indication); or iterative reconstruction. COMPARISON: CT ABD PELVIS W/O CONTRAST 11/22/2014 12:00 AM FINDINGS: Liver: There is decreased attenuation of the liver consistent with hepatic steatosis. The liver is enlarged. Gallbladder and bile ducts: Normal. No calcified stones. No ductal dilation. Pancreas: Normal. No ductal dilation. Spleen: Normal. No splenomegaly. Adrenals: Normal. No mass. Kidneys and ureters: There is a 3.5 cm right renal cyst. Left kidney is unremarkable. No hydronephrosis. Stomach and bowel: Sigmoid diverticulosis without diverticulitis. No bowel obstruction. Appendix: No evidence of appendicitis. Intraperitoneal space: Normal. No free air. No significant fluid collection. Vasculature: There is atherosclerosis of the aorta. Lymph nodes: Normal. No enlarged lymph nodes. Bladder: Unremarkable as visualized. Reproductive: Unremarkable as visualized. Bones/joints: There multilevel degenerative changes of the lumbar spine. Severe right neural foraminal narrowing L3-L4. There has been prior posterior decompression of L4-L5. Moderate to severe bilateral L4-L5 neural foraminal narrowing. Soft tissues: Unremarkable. IMPRESSION: 1. No acute findings. 2. Enlarged, fatty liver. 3. Diverticulosis without diverticulitis. Electronically signed by: Gertrude García On 11/06/2018 21:07:57 PM
[2018-11-06 21:23] VITALS: BP 126/76
== END 2018-11-06 22:28 | disposition home or self-care (01) ==
LOC: EDBD 17:42 → M ED 17:42
DX: R10.9 Unspecified abdominal pain (principal); R19.5 Other fecal abnormalities; K57.30 Diverticulosis of large intestine without perforation or abscess without bleeding; K76.0 Fatty (change of) liver, not elsewhere classified; I13.0 Hypertensive heart and chronic kidney disease with heart failure and stage 1 through stage 4 chronic kidney disease, or unspecified chronic kidney disease; I50.40 Unspecified combined systolic (congestive) and diastolic (congestive) heart failure; E11.22 Type 2 diabetes mellitus with diabetic chronic kidney disease; E78.5 Hyperlipidemia, unspecified; G47.33 Obstructive sleep apnea (adult) (pediatric); N18.3 Chronic kidney disease, stage 3 (moderate); Z87.891 Personal history of nicotine dependence; Z88.8 Allergy status to other drugs, medicaments and biological substances; Z88.6 Allergy status to analgesic agent; Z88.5 Allergy status to narcotic agent; Z91.040 Latex allergy status; Z91.048 Other nonmedicinal substance allergy status; Z79.899 Other long term (current) drug therapy; Z79.4 Long term (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; Z79.01 Long term (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 anticoagulants

== ENCOUNTER 2018-11-08 08:37 | Inpatient (IN) | payer MEDICARE, MEDICAID ==
[~2018-11-08] VITALS: Ht 170.2 cm; Wt 118.0 kg
[2018-11-08 09:14] LABS: BASO # 0.1 10^3/uL (0.0-0.2); BASO % 0.9 % (0.0-1.0); EOS # 0.1 10^3/uL (0.0-0.50); HEMATOCRIT 37.5 % (36.0-47.0); HEMOGLOBIN 12.6 g/dl (12.0-15.5); LYMPH # 1.9 10^3/uL (1.5-4.5); LYMPH % 30.5 % (24.0-44.0); MEAN CORPUSCULAR HEMOGLOBIN 28.6 pg (27.0-33.0); MEAN CORPUSCULAR HGB CONC 33.6 g/dl (32.0-36.5); MONO # 0.5 10^3/uL (0.0-0.8); NEUTROPHILS # 3.7 10^3/uL (1.8-7.7); NEUTROPHILS % 58.3 % (36.0-66.0); PLATELET COUNT, AUTOMATED 302 10^3/uL (150-450); RED BLOOD COUNT 4.41 10^6/uL (4.00-5.40); WHITE BLOOD COUNT 6.4 10^3/uL (4.0-10.0)
[2018-11-08] MEDS ORDERED: TRAM50TA2 PO (09:18)
[2018-11-08 09:33] LABS: INR 1.01
[2018-11-08 09:57] LABS: ALBUMIN 3.8 GM/DL (3.2-5.2); BILIRUBIN,DIRECT 0.1 MG/DL (0.0-0.2); BILIRUBIN,TOTAL 0.4 MG/DL (0.2-1.0); CALCIUM LEVEL 9.4 MG/DL (8.8-10.2); CREATININE FOR GFR 1.25 MG/DL (0.55-1.30); GLOMERULAR FILTRATION RATE 45.5 (>45); TOTAL PROTEIN 6.7 GM/DL (6.4-8.2)
[2018-11-08] MEDS ORDERED: ISOVUE-370 76% 100ML VIAL (Q9967) As Ordered ONE (12:19)
[2018-11-08] MEDS ORDERED: HYDROMORPHONE HCL 0.5 MG/ 0.5 ML SYRINGE (J1170 PER 1) IV ONE (12:30)
--- NOTE | 2018-11-08 13:22 | REP ---
CT of the abdomen and pelvis with IV contrast, without bowel contrast for abdominal pain: Comparison is 11/06/2089. The visualized lung xiao are unremarkable. The hepatic parenchyma is less dense than the spleen compatible with hepato steatosis. This is unchanged. There are no hepatic masses. The gallbladder, pancreas, spleen, adrenals and kidneys are unremarkable except for a Bosniak type 1 right renal lower pole 3.7 cm cyst, unchanged. The abdominal aorta is unremarkable except for calcified atheroma. There is no. Aortic adenopathy or mass. The bowel and mesentery are unremarkable except for sigmoid colon diverticula without CT evidence of diverticulitis. Pelvis: The appendix is unremarkable. The bladder is unremarkable. There is a hysterectomy. Vaginal cuff and adnexa are unremarkable. There is no ascites. There is no adenopathy. Impression: Diverticulosis without diverticulitis. Bosniak type 1 right renal cyst. Hepatic steatosis. Electronically Signed by Harry Helm MD 11/08/2018 01:13 P
[2018-11-08] MEDS ORDERED: NS 1,000 ML IV ONE (13:45)
[2018-11-08] MEDS ORDERED: MORPHINE 2 MG/ML 1ML SYRINGE (J2270) IV ONE (14:00)
[2018-11-08] MEDS ORDERED: MORPHINE 2 MG/ML 1ML SYRINGE (J2270) As Ordered ONE (14:02)
[2018-11-08] MEDS ORDERED: GI COCKTAIL 50ML BTL(HYOSCYAMINE/MAALOX/LIDOCAINE VISCOUS)(1:3:1) PO ONE (14:15)
[2018-11-08] MEDS ORDERED: NS 1,000 ML IV SCH (15:21)
--- NOTE | 2018-11-08 15:39 | HPEPDOC ---
General Date of Admission 11/08/18 Date of Service: Nov 08, 2018 Attending Physician: ISRAEL AC DO Chief Complaint The patient is a 68-year-old female admitted with a reason for visit of Muriel clark. Source: Patient, Family Exam Limitations: No limitations Timing/Duration: Day(s) (2 days) Associated Symptoms: Loss of appetite, Weakness History of Present Illness Patient is 68 years old female with past mental history of hypertension, type 2 diabetes, dyslipidemia, obstructive sleep apnea on CPAP, chronic kidney disease stage III, depression, anxiety, morbid obesity, pulmonary emboli presented to the ER with abdominal pain. She stated that 2 days ago she started feeling epiga stric abdominal pain 7 out of 10, she did have 1 large bowel movement with black stool. Patient stated that she never had black stool before. Of note patient stated that she had colonoscopy 5 years ago and it was unremarkable. In Emergency room abdominal CAT scan was done and showed diverticulosis without diverticulitis, hepatic steatosis, no free air. Stool for occult blood was negative. In Emergency room patient started complaining of suprapubic pain, catheterization of bladder was done, 800 mL was evacuated. After that patient started feeling bilateral flank pain. Urinalysis was done and showed pyuria. Blood result was significant for white blood count of 12.6 and elevated glucose level of 276, creatinine 1.25. Home Medications Scheduled Amlodipine Besylate (Amlodipine Besylate) 5 Mg Tablet, 5 MG PO DAILY, (Reported) Apixaban (Eliquis) 5 Mg Tablet, 5 MG PO BID, (Reported) NOTE IN EMAR STATE THIS IS ON HOLD PER DR CYR Chlorthalidone (Chlorthalidone) 50 Mg Tablet, 50 MG PO DAILY, (Reported) Duloxetine Hcl (Duloxetine HCl) 20 Mg Capsule.dr, 20 MG PO DAILY, (Reported) Ergocalciferol (Vitamin D2) (Drisdol) 50,000 Unit Cap, 50,000 UNIT PO QWEEK, (Reported) MONDAY Fenofibrate (Fenofibrate) 160 Mg Tab, 160 MG PO DAILY, (Reported) Fluticasone Propionate (Fluticasone Propionate) 50 Mcg/Act Spr, 2 SPRAY NARES DAILY, (Reported) Gabapentin (Neurontin) 100 Mg Capsule, 100 MG PO QHS, (Reported) Insulin Glargine,Hum.rec.anlog (Lantus Solostar) 100 Unit/1 Ml Insuln.pen, 45 UNITS SC QHS, (Reported) Insulin Lispro (Humalog Kwikpen U-100) 100 Unit/1 Ml Insuln.pen, 0 SC ACHS, (Reported) PER SLIDING SCALE Liraglutide (Victoza 3-Anthony) 0.6 Mg/0.1 Ml Pen.injctr, 1.2 MG SQ QPM, (Reported) TAKES @ 1600 Multivitamin (Multivitamins) 1 Each Tablet, 1 TAB PO DAILY, (Reported) Polyethylene Glycol 3350 (Miralax) 119 Gm Powder, 17 GM PO QHS, (Reported) Potassium Chloride (Potassium Chloride) 20 Meq Tab.er.prt, 20 MEQ PO QHS, (Reported) Pravastatin Sodium (Pravastatin Sodium) 40 Mg Tab, 40 MG PO QHS, (Reported) Sennosides/Docusate Sodium (Sennosides-Docusate Sodium Tab) 1 Each Tablet, 2 TAB PO QHS, (Reported) Valsartan (Valsartan) 40 Mg Tablet, 40 MG PO QHS, (Reported) Scheduled PRN Acetaminophen (Acetaminophen) 500 Mg Tablet, 1,000 MG PO Q6H PRN for PAIN, (Rep orted) Albuterol Sulfate (Proair Hfa) 8.5 Gm Hfa.aer.ad, 2 PUFF INH Q4H PRN for SHORTNESS OF BREATH, (Reported) Diclofenac Sodium (Diclofenac Sodium) 1 % Gel, 1 DOSE TOP TID PRN for PAIN, (Reported) APPLY TO JOINTS OF HANDS NEEDED Milk Of Magnesia (Milk of Magnesia) 2,400 Mg/10 Ml Oral.susp, 10 ML PO DAILY PRN for CONSTIPATION, (Reported) Tramadol HCl (Tramadol HCl) 50 Mg Tablet, 50 MG PO BID PRN for PAIN, (Reported) Allergies Coded Allergies: TAPE (Verified Allergy, Intermediate, NYLON TAPE CAUSES HIVES PER 09/09/03, 11/06/18) latex (Verified Allergy, Intermediate, RASH, 11/06/18) ibuprofen (Verified Adverse Reaction, Intermediate, BLEEDING, CONSTIPATION, 11/06/18) metoprolol (Verified Adverse Reaction, Intermediate, LOWERS BLOOD PRESSURE TOO MUCH, 11/06/18) LOWERS BLOOD PRESSURE TOO MUCH morphine (Verified Adverse Reaction, Intermediate, ITCHING, 11/06/18) Quinolones (Verified Adverse Reaction, Mild, DIZZINESS, 11/06/18) Past Medical History Medical History Hypertension, diabetes mellitus type 2, dyslipidemia, obstructive sleep apnea on CPAP, chronic kidney disease stage III, depression, morbid obesity, history of PE Family History Father had end-stage renal diseases, mother cirrhosis Social History * Smoker: former Smoker Alcohol: occationally Drugs: denies A-FIB/CHADSVASC A-FIB History Current/History of A-Fib/PAF?: No Current PO Anticoag Therapy: No Review of Systems Constitutional: Reports: Malaise, Fatigue Eyes: Denies: Pain, Vision change ENT: Denies: Head Aches, Ear Pain Skin: Denies: Rash, Lesions, Jaundice Pulmonary: Denies: Dyspnea, Cough Cardiovascular: Denies: Chest Pain, Palpitations Gastrointestinal: Reports: Nausea, Abdominal Pain (epigastric, suprapubic) Genitourinary: Reports: Dysuria, Frequency, Retention Hematologic: Denies: Bruising, Bleeding Excessively Endocrine: Denies: Polydipsia, Polyphagia Musculoskeletal: Denies: Neck Pain Neurological: Denies: Weakness Psych: Reports: Anxiety; Denies: Mood Normal Physical Examination General Exam: Positive: Alert, Cooperative Eye Exam: Positive: PERRLA, Conjunctiva & lids normal ENT Exam: Positive: Atraumatic, Mucous membr. moist/pink Neck Exam: Positive: Supple; Negative: JVD Chest Exam: Positive: Clear to auscultation Heart Exam: Positive: Rate Normal Telemetry: Positive: No significant arrhythmia Abdomen Exam: Positive: BS Hyperactive Extremity Exam: Negative: Cyanosis, Edema Skin Exam: Negative: Rash Neuro Exam: Positive: Cranial Nerves 3-12 NL Psych Exam: Positive: Mental status NL, Oriented x 3 Vital Signs Vital Signs Date Time Temp Pulse Resp B/P (MAP) Pulse Ox O2 Delivery O2 Flow Rate FiO2 11/08/18 14:30 59 109/56 (73) 95 Room Air 11/08/18 14:17 18 11/08/18 08:47 97.0 Laboratory Data Labs 24H Laboratory Tests 2 11/08/18 09:00: Immature Granulocyte % (Auto) 0.3, White Blood Count 6.4, Red Blood Count 4.41, Hemoglobin 12.6, Hematocrit 37.5, Mean Corpuscular Volume 85.0, Mean Corpuscular Hemoglobin 28.6, Mean Corpuscular Hemoglobin Concent 33.6, Red Cell Distribution Width 12.1, Platelet Count 302, Neutrophils (%) (Auto) 58.3, Lymphocytes (%) (Auto) 30.5, Monocytes (%) (Auto) 8.0H, Eosinophils (%) (Auto) 2.0, Basophils (%) (Auto) 0.9, Neutrophils # (Auto) 3.7, Lymphocytes # (Auto) 1.9, Monocytes # (Auto) 0.5, Eosinophils # (Auto) 0.1, Basophils # (Auto) 0.1, Nucleated Red Blood Cells % (auto) 0.0, Prothrombin Time 13.0, Prothromb Time International Ratio 1.01, Activated Partial Thromboplast Time 26.0, Anion Gap 9, Glomerular Filtration Rate 45.5, Lactic Acid Level 1.5, Calcium Level 9.4, Aspartate Amino Transf (AST/SGOT) 13, Alanine Aminotransferase (ALT/SGPT) 28, Alkaline Phosphatase 61, Total Bilirubin 0.4#, Direct Bilirubin 0.1, Total Protein 6.7, Albumin 3.8, Albumin/Globulin Ratio 1.31, Lipase 112 11/08/18 13:47: Urine Color YELLOW, Urine Appearance HAZY, Urine pH 7.0, Urine Specific Lawrence 1.023, Urine Protein NEGATIVE, Urine Glucose (UA) 3+H, Urine Ketones NEGATIVE, Urine Blood NEGATIVE, Urine Nitrite POSITIVEH, Urine Bilirubin NEGATIVE, Urine Urobilinogen 0.2, Urine Leukocyte Esterase 1+H, Urine WBC (Auto) 34H, Urine RBC (Auto) 2, Urine Hyaline Casts (Auto) 0, Urine Bacteria (Auto) 1+H, Urine Squamous Epithelial Cells 0, Urine Mucus (Auto) SMALL, Urine Sperm (Auto) 11/08/18 14:27: Bedside Glucose ([facility]) 251H CBC/BMP Laboratory Tests 11/08/18 09:00 Red Blood Count 4.41, Mean Corpuscular Volume 85.0, Mean Corpuscular Hemoglobin 28.6, Mean Corpuscular Hemoglobin Concent 33.6, Red Cell Distribution Width 12.1, Neutrophils (%) (Auto) 58.3, Lymphocytes (%) (Auto) 30.5, Monocytes (%) (Auto) 8.0 H, Eosinophils (%) (Auto) 2.0, Basophils (%) (Auto) 0.9, Neutrophils # (Auto) 3.7, Lymphocytes # (Auto) 1.9, Monocytes # (Auto) 0.5, Eosinophils # (Auto) 0.1, Basophils # (Auto) 0.1 Microbiology Microbiology 11/08/18 Urine Culture, Received Pending Assessment/Plan Patient is 68 years old female with past mental history of hypertension, type 2 diabetes, dyslipidemia, obstructive sleep apnea on CPAP, chronic kidney disease stage III, depression, anxiety, morbid obesity, pulmonary emboli presented to the ER with abdominal pain. She stated that 2 days ago she started feeling epigastric abdominal pain 7 out of 10, she did have 1 large bowel movement with black stool. Patient stated that she never had black stool before. Of note patient stated that she had colonoscopy 5 years ago and it was unremarkable. Problems (1) Abdominal pain Status: Acute Problem Text: Abdominal CAT scan was negative for perforation and free air Epigastric pain was subsided after GI cocktail Differential diagnosis includes gastritis, peptic ulcer, AVM Protonix IV I talked to Dr. Anderson about EGD and colonoscopy. He will see patient today Nothing by mouth for now IV fluid Will transfuse if hemoglobin less than 7 Pain management (2) GI bleed Status: Acute Problem Text: See above (3) UTI (urinary tract infection) Status: Acute Problem Text: Urinalysis showed pyuria, patient complains of suprapubic abdominal pain and flank pain. Ceftriaxone IV Urine culture, blood culture (4) Diabetes mellitus Status: Chronic Problem Text: Insulin detemir 30 units daily at bedtime Insulin sliding scale (5) Pulmonary emboli Status: Chronic Problem Text: Hold anticoagulation for now due to possible GI bleed Plan / VTE VTE Prophylaxis Ordered?: No VTE Exclusion Pharmacological: Active Bleeding ISRAEL AC DO Nov 08, 2018 15:39
[2018-11-08] MEDS ORDERED: MOM 30ML SUSPENSION UDC PO PRN (16:00)
[2018-11-08] MEDS ORDERED: ACETAMINOPHEN 500 MG TAB PO PRN (16:00)
[2018-11-08] MEDS ORDERED: GLUCOSE 4 GM CHEW TABLET PO PRN (16:00)
[2018-11-08] MEDS ORDERED: DEXTROSE 50% 50 ML SYRINGE IV PRN (16:00)
[2018-11-08] MEDS ORDERED: ALBUTEROL 90 MCG/ACT 8GM HFA INHALER INH PRN (16:00)
[2018-11-08] MEDS ORDERED: GLUCAGON FOR INJ 1 MG VIAL (J1610) SC PRN (16:00)
[2018-11-08 17:35] VITALS: BP 134/68
--- NOTE | 2018-11-08 17:36 | CR ---
DATE OF CONSULTATION: 11/08/2018 The patient is a 68-year-old female who presents to the emergency room twice in the last couple days. Essentially two days ago, she had a large dark bowel movement, came to the emergency room, hematocrit was fine, and essentially hemoccult negative from a fecal occult blood testing. She did not have any diarrhea. No constipation issues. No previous gastrointestinal (GI) bleeding issues. She has had a colonoscopy a couple years ago by Dr. Landaverde and then previous colonoscopies from him as well. In any case, she presents with abdominal pain in the epigastric area prior to this visit to the emergency room. She was started on some Protonix, discharged to home, and had some generalized abdominal pain including some lower abdominal pain and was brought to the emergency room for further evaluation. A repeat hemoglobin and hematocrit showed that her hematocrit was stable from the day prior and again a repeated hemoccult testing was negative. Thus, I was asked to see her for possible GI bleed and for her abdominal pain issues. She was given a GI cocktail when she came here and noticed that her upper abdominal pain seemed to improve. She had a straight catheter for 800 mL of urine that seemed to help some lower abdominal pain but now is complaining of some back discomfort and pain. The family says she looks a lot more comfortable now than she was earlier. Her past medical history is significant for a history of hypertension, diabetes mellitus, dyslipidemia, sleep apnea, chronic kidney disease, depression, morbid obesity, history of pulmonary embolism (PE), history of neuropathy. Medications include amlodipine, Eliquis, chlorthalidone, Duloxetine, vitamin D, fenofibrate, fluticasone proptionate, nasal spray, Neurontin, insulin, Victoza, multivitamins, MiraLax, potassium, pravastatin, Senokot and losartan. She has some as-needed Voltaren, albuterol, Tylenol and tramadol. PHYSICAL EXAMINATION: Reveals a morbidly obese female whho looks stated age. HEENT is unremarkable. Lungs are clear anteriorly although diminished. Heart is regular with a few irregular beats. Abdomen is soft, nondistended, nontender. No guarding. No rebound. No peritoneal signs are appreciated. IMPRESSION AND PLAN: The patient had some abdominal pain in the epigastric area that seemed to get better with the gastrointestinal (GI) cocktail, suggest that she probably has some gastritis without evidence for GI bleeding. I anticipate that this is relatively mild to moderate at most without severe ulceration. I would recommend that she be on some proton pump inhibitors, some Carafate, and an upper and lower endoscopy as an outpatient should be reasonable if she stabilizes. Otherwise given her nonemergent nature, we will fit her in as soon as possible for a repeat endoscopy. Also it is not unreasonable if you would so desire to contact the life enrichment manager who has been seeing her for years to see if he would be involved in her care and proceed with an upper and lower endoscopy. Abdominal pain. The patient had some epigastric pain. I anticipate that may be some mild gastritis. However, she also had some lower abdominal pain in the suprapubic area and from my standpoint, this is probably from urinary retention, even the back pain might be even from her kidneys and urinary retention. Thus, I would recommend keeping a Moreau in overnight at least and see if that makes a difference with the abdominal/back pain. If it resolves then she may have some problems with urinary retention that may need to be addressed by urology, etcetera. In any case from a surgical standpoint, no emergent intervention is necessary. She is not actively bleeding or hypotensive. She does not have an acute abdomen, no lactic acidosis, a normal white count, and we will see how she is doing from the symptomatic treatment of her probable gastritis in the morning.
[2018-11-08] MEDS: HumaLOG INSULIN (NovoLOG) PER UNIT SC SCH (18:00)
[2018-11-08] MEDS: NS 1,000 ML IV SCH (18:17)
[2018-11-08 18:44] LABS: INR 1.1; PROTHROMBIN TIME 13.9 SECONDS (11.8-14.0)
[2018-11-08] MEDS: cefTRIAXone SOD 1 GM in D5W MINI-BAG PLUS 50 ML IV SCH (20:58)
[2018-11-08] MEDS: PANTOPRAZOLE 40MG INJ (PROTONIX) (C9113) IV SCH (20:58)
[2018-11-08] MEDS: SENOKOT S TAB PO SCH (20:58)
[2018-11-08] MEDS: traMADol 50 MG TAB PO PRN (20:59)
[2018-11-08] MEDS: POTASSIUM CHLORIDE 10 MEQ SR TABLET PO SCH (20:59)
[2018-11-08] MEDS: PRAVASTATIN 20 MG TAB PO SCH (21:00)
[2018-11-08] MEDS ORDERED: LEVEMIR (INSULIN DETEMIR) 1 UNITS/0.01ML SC SCH (21:00)
[2018-11-08] MEDS: GABAPENTIN 100 MG CAP PO SCH (21:00)
[2018-11-08 22:00] VITALS: BP 120/55
[2018-11-08] MEDS ORDERED: LEVEMIR (INSULIN DETEMIR) 1 UNITS/0.01ML SC ONE (23:00)
[2018-11-08] MEDS: VALSARTAN 40MG TABLET (DIOVAN) PO SCH (23:46)
[2018-11-09] MEDS: NS 1,000 ML IV SCH ×3 (04:18→15:16)
[2018-11-09] MEDS: traMADol 50 MG TAB PO PRN (05:28)
[2018-11-09 06:00] VITALS: BP 118/56
[2018-11-09] MEDS: HumaLOG INSULIN (NovoLOG) PER UNIT SC SCH ×4 (06:00→20:41)
[2018-11-09 06:12] LABS: HEMATOCRIT 36.3 % (36.0-47.0); HEMOGLOBIN 12.1 g/dl (12.0-15.5); MEAN CORPUSCULAR HEMOGLOBIN 29.5 pg (27.0-33.0); MEAN CORPUSCULAR HGB CONC 33.3 g/dl (32.0-36.5); MEAN CORPUSCULAR VOLUME 88.5 fl (80.0-96.0); PLATELET COUNT, AUTOMATED 273 10^3/uL (150-450); WHITE BLOOD COUNT 5.4 10^3/uL (4.0-10.0)
[2018-11-09 06:44] LABS: CALCIUM LEVEL 8.9 MG/DL (8.8-10.2); CREATININE FOR GFR 1.29 MG/DL (0.55-1.30); GLOMERULAR FILTRATION RATE 43.9 (>45); MAGNESIUM LEVEL 1.8 MG/DL (1.8-2.4); POTASSIUM SERUM 3.5 MEQ/L (3.5-5.1)
[2018-11-09] MEDS ORDERED: POTASSIUM CHLORIDE 10 MEQ SR TABLET PO ONE (07:00)
--- NOTE | 2018-11-09 09:49 | REP ---
Thoracic spine three views including two lateral single AP views: The AP view is inadvertently placed in the lumbar spine file. Vertebral body heights and alignment are normal. There is degenerative disc disease throughout the thoracic spine. Mineralization is normal. The pedicles are unremarkable. Impression: Degenerative disc disease throughout the thoracic spine. Electronically Signed by Harry Helm MD 11/09/2018 09:40 A
--- NOTE | 2018-11-09 09:51 | REP ---
Lumbar spine three views AP and lateral projections: AP view of the thoracic spine is inadvertently placed in this lumbar spine file. The lumbar vertebral body heights and alignment are normal. There is degenerative disc disease throughout the lumbar spine, most advanced at the lower lumbar levels. There is no spondylolysis or spondylolisthesis. There is facet osteoarthritis. Mineralization is normal. Pedicles are unremarkable. Impression: Degenerative disc disease throughout the lumbar spine, most advanced in the lower lumbar levels. Facet osteoarthritis. Electronically Signed by Harry Helm MD 11/09/2018 09:42 A
--- NOTE | 2018-11-09 11:04 | IPNPDOC ---
Text Note Date of Service The patient was seen on 11/09/18. NOTE Subjective: Patient complains of bilateral lower thoracic, lumbar pain 7 out of 10, constant. Also patient complains of suprapubic pain which started yesterday. Patient did not have a bowel movement yet. She had a Moreau catheter overnight. Objective: General Exam: Positive: Alert, Cooperative Eye Exam: Positive: PERRLA, Conjunctiva & lids normal ENT Exam: Positive: Atraumatic, Mucous membr. moist/pink Neck Exam: Positive: Supple; Negative: JVD Chest Exam: Positive: Clear to auscultation Heart Exam: Positive: Rate Normal, S1-S2 Back: Bilateral tenderness over paraspinal area of lower thoracic and lumbar spine Abdomen Exam: Positive: BS Hyperactive, suprapubic tenderness Extremity Exam: Negative: Cyanosis, Edema Skin Exam: Negative: Rash Neuro Exam: Positive: Cranial Nerves 3-12 NL Psych Exam: Positive: Mental status NL, Oriented x 3 Thoracic spine three views including two lateral single AP views: The AP view is inadvertently placed in the lumbar spine file. Vertebral body heights and alignment are normal. There is degenerative disc disease throughout the thoracic spine. Mineralization is normal. The pedicles are unremarkable. Impression: Degenerative disc disease throughout the thoracic spine. Lumbar spine three views AP and lateral projections: AP view of the thoracic spine is inadvertently placed in this lumbar spine file. The lumbar vertebral body heights and alignment are normal. There is degenerative disc disease throughout the lumbar spine, most advanced at the lower lumbar levels. There is no spondylolysis or spondylolisthesis. There is facet osteoarthritis. Mineralization is normal. Pedicles are unremarkable. Impression: Degenerative disc disease throughout the lumbar spine, most advanced in the lower lumbar levels. Facet osteoarthritis. Electronically Signed by Harry Helm MD 11/09/2018 09:40 A Assessment and plan: Patient is 68 years old female with past mental history of hypertension, type 2 diabetes, dyslipidemia, obstructive sleep apnea on CPAP, chronic kidney disease stage III, depression, anxiety, morbid obesity, pulmonary emboli presented to the ER with abdominal pain. She stated that 2 days ago she started feeling epigastric abdominal pain 7 out of 10, she did have 1 large bowel movement with black stool. In Emergency room abdominal CAT scan was done and showed diverticulosis without diverticulitis, hepatic steatosis, no free air. Stool for occult blood was negative. In Emergency room patient started complaining of suprapubic pain, catheterization of bladder was done, 800 mL was evacuated. After that patient started feeling bilateral flank pain. Urinalysis was done and showed pyuria. Epigastric pain after GI cocktail subsided. During hospital stay treatment with ceftriaxone IV cystitis initiated. Also patient received treatment with IV Protonix and sucralfate. Hemoglobin level was stable and around 12. (1) Abdominal pain Status: Acute Problem Text: Abdominal CAT scan was negative for perforation and free air Epigastric pain was subsided after GI cocktail Differential diagnosis includes gastritis, peptic ulcer, AVM Protonix IV for [address] Anderson about EGD and colonoscopy. He recommended conservative treatment and follow-up with GI in the outpatient settings for possible colonoscopy and EGD IV fluid Diabetes diet Will transfuse if hemoglobin less than 7 Pain management (2) GI bleed Status: Acute Problem Text: See above (3) UTI (urinary tract infection) Status: Acute Problem Text: Urinalysis showed pyuria, patient complains of suprapubic abdom inal pain and flank pain. Ceftriaxone IV Urine culture pending, blood culture pending (4) Diabetes mellitus Status: Chronic Problem Text: Insulin detemir 30 units daily at bedtime Insulin sliding scale (5) Pulmonary emboli Status: Chronic Problem Text: Hold anticoagulation for now due to possible GI bleed Will restart in 1-2 days if no signs of bleed 6) back pain There was concern for low thoracic and lumbar spine compression fracture Patient stated that she was diagnosed with osteoporosis X-ray of thoracic and lumbar spine was done and it was negative for compression fracture, showed some arthritic changes PT/OT VS,Fishbone, I+O VS, Fishbone, I+O Laboratory Tests 11/09/18 05:40 Red Blood Count 4.10, Mean Corpuscular Volume 88.5, Mean Corpuscular Hemoglobin 29.5, Mean Corpuscular Hemoglobin Concent 33.3, Red Cell Distribution Width 12 .2, Calcium Level 8.9 Vital Signs Date Time Temp Pulse Resp B/P (MAP) Pulse Ox O2 Delivery O2 Flow Rate FiO2 11/09/18 06:00 97.5 51 18 118/56 (76) 97 11/08/18 17:20 Room Air I&O- Last 24 Hours up to 6 AM 8/30/19 06:00 Intake Total 1550 ml Output Total 1450 ml Balance 100 ml ISRAEL AC DO Nov 09, 2018 11:04
[2018-11-09] MEDS: FLUTICASONE PROP 0.05% NASAL SPRAY 16 GM (FLONASE) NARES SCH (11:09)
[2018-11-09] MEDS: PANTOPRAZOLE 40MG INJ (PROTONIX) (C9113) IV SCH ×2 (11:09→20:42)
[2018-11-09] MEDS: VALSARTAN 40MG TABLET (DIOVAN) PO SCH ×2 (11:10→20:39)
[2018-11-09] MEDS: DULoxetine 20 MG CAP (CYMBALTA) PO SCH (11:10)
[2018-11-09] MEDS: amLODIPine 5 MG TAB PO SCH (11:10)
[2018-11-09] MEDS: cefTRIAXone SOD 1 GM in D5W MINI-BAG PLUS 50 ML IV SCH ×2 (11:11→20:42)
[2018-11-09] MEDS: CHLORTHALIDONE 25 MG TAB PO SCH (11:11)
--- NOTE | 2018-11-09 11:28 | IPNPDOC ---
Text Note Date of Service The patient was seen on 11/09/18. NOTE Subjective: Patient complains of suprapubic abdominal pain, VS,Fishbone, I+O VS, Fishbone, I+O Laboratory Tests 11/09/18 05:40 Red Blood Count 4.10, Mean Corpuscular Volume 88.5, Mean Corpuscular Hemoglobin 29.5, Mean Corpuscular Hemoglobin Concent 33.3, Red Cell Distribution Width 12.2, Calcium Level 8.9 Vital Signs Date Time Temp Pulse Resp B/P (MAP) Pulse Ox O2 Delivery O2 Flow Rate FiO2 11/09/18 11:10 51 118/56 11/09/18 06:00 97.5 18 97 11/08/18 17:20 Room Air I&O- Last 24 Hours up to 6 AM 11/09/18 06:00 Intake Total 1550 ml Output Total 1450 ml Balance 100 ml ISRAEL AC DO Nov 09, 2018 11:28
[2018-11-09 14:00] VITALS: BP 121/58
--- NOTE | 2018-11-09 15:20 | IPN ---
DATE: 11/09/2018 The patient overall since yesterday really has not changed her abdominal pain issues. She is not complaining so much of the upper abdominal pain as she had previously, mostly still lower pain radiating into her back. Given that she has a normal white count, has been afebrile and normal CT scan, I feel that it is unlikely to be a GI related infection and more importantly because her bowels have been fine without any diarrhea issues, less likely to be colitis issue. Ischemic colitis is very unusual without any presentation of elevated white count or lactic acidosis and in someone who is in pain as well. Thus, from a GI standpoint, she may have some mild gastritis and it is reasonable to be a little more aggressive with her with the treatment that she has been on i.e. the proton pump inhibitor. When she is discharged to home, I would recommend probably being on some Carafate 1 gram by mouth twice a day and also from a colonoscopy standpoint she states that she would like a repeat evaluation. She had seen Dr. Gerardo a couple years ago and had a reportedly normal CAT scan without any significant findings per se and thus I feel that it is reasonable to have her follow up with him in a couple weeks for reevaluation and consideration of possible upper and lower endoscopy. However, this does not explain her pain in her lower abdomen radiating to her back. I am not sure exactly, but at this point I am not seeing a general surgical issue associated with this. Thus, I would recommend increasing her diet as tolerated and to contact us if there are any further questions or concerns.
[2018-11-09] MEDS ORDERED: DEXTROSE 50% 50 ML SYRINGE IV PRN (18:15)
[2018-11-09] MEDS ORDERED: GLUCAGON FOR INJ 1 MG VIAL (J1610) SC PRN (18:15)
[2018-11-09] MEDS ORDERED: GLUCOSE 4 GM CHEW TABLET PO PRN (18:15)
[2018-11-09] MEDS: GABAPENTIN 100 MG CAP PO SCH (20:40)
[2018-11-09] MEDS: POTASSIUM CHLORIDE 10 MEQ SR TABLET PO SCH (20:40)
[2018-11-09] MEDS: PRAVASTATIN 20 MG TAB PO SCH (20:40)
[2018-11-09] MEDS: SENOKOT S TAB PO SCH (20:41)
[2018-11-09] MEDS ORDERED: LEVEMIR (INSULIN DETEMIR) 1 UNITS/0.01ML SC SCH ×2 (21:00)
[2018-11-09 22:00] VITALS: BP 130/69
[2018-11-10] MEDS: NS 1,000 ML IV SCH (01:01)
[2018-11-10 06:00] VITALS: BP 121/71
[2018-11-10 06:21] LABS: HEMATOCRIT 32.2 % (36.0-47.0); HEMOGLOBIN 10.6 g/dl (12.0-15.5); MEAN CORPUSCULAR HEMOGLOBIN 28.9 pg (27.0-33.0); MEAN CORPUSCULAR HGB CONC 32.9 g/dl (32.0-36.5); MEAN CORPUSCULAR VOLUME 87.7 fl (80.0-96.0); PLATELET COUNT, AUTOMATED 245 10^3/uL (150-450); RED BLOOD COUNT 3.67 10^6/uL (4.00-5.40); WHITE BLOOD COUNT 4.9 10^3/uL (4.0-10.0)
[2018-11-10 06:35] LABS: CALCIUM LEVEL 8.6 MG/DL (8.8-10.2); CREATININE FOR GFR 1.3 MG/DL (0.55-1.30); GLOMERULAR FILTRATION RATE 43.5 (>45); MAGNESIUM LEVEL 1.5 MG/DL (1.8-2.4); POTASSIUM SERUM 3.6 MEQ/L (3.5-5.1)
[2018-11-10] MEDS ORDERED: MIRALAX *UNIT DOSE* 17GM PACKET PO PRN (08:30)
[2018-11-10] MEDS ORDERED: BISACODYL 10 MG SUPP PR PRN (08:45)
[2018-11-10] MEDS ORDERED: LEVEMIR (INSULIN DETEMIR) 1 UNITS/0.01ML SC SCH ×2 (09:00→21:00)
[2018-11-10] MEDS ORDERED: VITAMIN D 50,000 UNITS CAPSULE (ERGOCALCIFEROL 1.25MG) PO SCH (09:00)
[2018-11-10] MEDS: DULoxetine 20 MG CAP (CYMBALTA) PO SCH (09:45)
[2018-11-10] MEDS: CHLORTHALIDONE 25 MG TAB PO SCH (09:45)
[2018-11-10] MEDS: PANTOPRAZOLE 40MG INJ (PROTONIX) (C9113) IV SCH (09:45)
[2018-11-10] MEDS: amLODIPine 5 MG TAB PO SCH (09:46)
[2018-11-10] MEDS: HumaLOG INSULIN (NovoLOG) PER UNIT SC SCH ×4 (09:49→21:23)
[2018-11-10] MEDS: FLUTICASONE PROP 0.05% NASAL SPRAY 16 GM (FLONASE) NARES SCH (09:50)
[2018-11-10] MEDS: cefTRIAXone SOD 1 GM in D5W MINI-BAG PLUS 50 ML IV SCH ×2 (09:54→21:24)
[2018-11-10] MEDS ORDERED: MAGNESIUM CITRATE 300 ML BTL PO ONE (12:00)
[2018-11-10 14:00] VITALS: BP 140/60
[2018-11-10] MEDS ORDERED: OMEP40CA2 PO (14:09)
[2018-11-10] MEDS ORDERED: NITR100C2 PO (14:10)
--- NOTE | 2018-11-10 15:34 | IPNPDOC ---
Text Note Date of Service The patient was seen on 11/10/18. NOTE Subjective: patient complains of suprapubic pain but stated the pain is much subsided. Patient did not have bowel movement for past 3 days. Objective: General Exam: Positive: Alert, Cooperative Eye Exam: Positive: PERRLA, Conjunctiva & lids normal ENT Exam: Positive: Atraumatic, Mucous membr. moist/pink Neck Exam: Positive: Supple; Negative: JVD Chest Exam: Positive: Clear to auscultation Heart Exam: Positive: Rate Normal, S1-S2 Back: Bilateral tenderness over paraspinal area of lower thoracic and lumbar spine Abdomen Exam: Positive: BS Hyperactive, mild suprapubic tenderness Extremity Exam: Negative: Cyanosis, Edema Skin Exam: Negative: Rash Neuro Exam: Positive: Cranial Nerves 3-12 NL Psych Exam: Positive: Mental status NL, Oriented x 3 Assessment and plan: Patient is 68 years old female with past mental history of hypertension, type 2 diabetes, dyslipidemia, obstructive sleep apnea on CPAP, chronic kidney disease stage III, depression, anxiety, morbid obesity, pulmonary emboli presented to the ER with abdominal pain. She stated that 2 days ago she started feeling epigastric abdominal pain 7 out of 10, she did have 1 large bowel movement with black stool. In Emergency room abdominal CAT scan was done and showed diverticulosis without diverticulitis, hepatic steatosis, no free air. Stool for occult blood was negative. In Emergency room patient started complaining of suprapubic pain, catheterization of bladder was done, 800 mL was evacuated. After that patient started feeling bilateral flank pain. Urinalysis was done and showed pyuria. Epigastric pain after GI cocktail subsided.Also patient received treatment with IV Protonix and sucralfate. During hospital stay treatment with ceftriaxone IV cystitis initiated. Most likely suprapubic pain could be attributed to acute cystitis. Urine culture was positive for Escherichia coli. Hemoglobin level is stable. Abdominal pain Status: Acute Problem Text: Abdominal CAT scan was negative for perforation and free air Epigastric pain was subsided after GI cocktail Protonix IV for 48 h. today I changed for by mouth I talked to Dr. Anderson about EGD and colonoscopy. He recommended conservative treatment and follow-up with GI in the outpatient settings for possible colonoscopy and EGD. Will transfuse if hemoglobin less than 7 Pain management Suprapubic pain Patient has had dysuria, urine culture was positive with Escherichia coli. Most likely suprapubic pain attributed to acute cystitis Continue ceftriaxone IV, will change for by mouth nitrofurantoin for outpatient settings GI bleed Status: Acute Patient noted black stool. Differential diagnosis includes gastritis, peptic ulcer, AVM In the ER stool for occult blood was negative Patient is normotensive, hemoglobin stable. No signs or symptoms of acute bleeding for now Problem Text: See above UTI (urinary tract infection) Status: Acute Problem Text: Urinalysis showed pyuria, patient complains of suprapubic abdominal pain and flank pain. Ceftriaxone IV Urine culture positive for Escherichia coli Diabetes mellitus Status: Chronic Problem Text: Continue insulin detemir Insulin sliding scale Diabetes diet Pulmonary emboli Status: Chronic Problem Text: Held anticoagulation due to possible GI bleed Today patient is normotensive with hemoglobin of 10.6, no signs or symptoms of acute bleed Apixaban 5 mg twice a day restarted back pain There was concern for low thoracic and lumbar spine compression fracture Patient stated that she was diagnosed with osteoporosis X-ray of thoracic and lumbar spine was done and it was negative for compression fracture, showed some arthritic changes PT/OT Constipation Resolved after magnesium citrate VS,Fishbone, I+O VS, Fishbone, I+O Laboratory Tests 11/10/18 05:37 Red Blood Count 3.67 L, Mean Corpuscular Volume 87.7, Mean Corpuscular Hemoglobin 28.9, Mean Corpuscular Hemoglobin Concent 32.9, Red Cell Distribution Width 12.0, Calcium Level 8.6 L Vital Signs Date Time Temp Pulse Resp B/P (MAP) Pulse Ox O2 Delivery O2 Flow Rate FiO2 11/10/18 14:00 97.6 66 18 140/60 (86) 99 11/08/18 17:20 Room Air I&O- Last 24 Hours up to 6 AM 11/10/18 06:00 Intake Total 2130 ml Output Total 2600 ml Balance -470 ml ISRAEL AC DO Nov 10, 2018 15:34
[2018-11-10] MEDS ORDERED: OMEPRAZOLE 20 MG CAP PO ONE (16:00)
[2018-11-10] MEDS: VALSARTAN 40MG TABLET (DIOVAN) PO SCH (21:21)
[2018-11-10] MEDS: POTASSIUM CHLORIDE 10 MEQ SR TABLET PO SCH (21:22)
[2018-11-10] MEDS: APIXABAN 5 MG TAB (ELIQUIS) PO SCH (21:22)
[2018-11-10] MEDS: PRAVASTATIN 20 MG TAB PO SCH (21:22)
[2018-11-10] MEDS: SENOKOT S TAB PO SCH (21:22)
[2018-11-10] MEDS: GABAPENTIN 100 MG CAP PO SCH (21:22)
[2018-11-11 06:10] LABS: HEMOGLOBIN 10.8 g/dl (12.0-15.5); MEAN CORPUSCULAR HEMOGLOBIN 28.8 pg (27.0-33.0); MEAN CORPUSCULAR HGB CONC 33.8 g/dl (32.0-36.5); MEAN CORPUSCULAR VOLUME 85.3 fl (80.0-96.0); PLATELET COUNT, AUTOMATED 243 10^3/uL (150-450); RED BLOOD COUNT 3.75 10^6/uL (4.00-5.40); WHITE BLOOD COUNT 4.7 10^3/uL (4.0-10.0)
[2018-11-11 06:41] LABS: CALCIUM LEVEL 8.9 MG/DL (8.8-10.2); CREATININE FOR GFR 1.34 MG/DL (0.55-1.30); MAGNESIUM LEVEL 1.6 MG/DL (1.8-2.4); POTASSIUM SERUM 3.6 MEQ/L (3.5-5.1)
[2018-11-11] MEDS: cefTRIAXone SOD 1 GM in D5W MINI-BAG PLUS 50 ML IV SCH (09:00)
[2018-11-11] MEDS: amLODIPine 5 MG TAB PO SCH (09:50)
[2018-11-11] MEDS: POTASSIUM CHLORIDE 10 MEQ SR TABLET PO SCH ×2 (09:51→20:57)
[2018-11-11] MEDS: APIXABAN 5 MG TAB (ELIQUIS) PO SCH ×2 (09:51→20:57)
[2018-11-11] MEDS: LEVEMIR (INSULIN DETEMIR) 1 UNITS/0.01ML SC SCH ×2 (09:51→20:59)
[2018-11-11] MEDS: CHLORTHALIDONE 25 MG TAB PO SCH (09:51)
[2018-11-11] MEDS: FLUTICASONE PROP 0.05% NASAL SPRAY 16 GM (FLONASE) NARES SCH (09:52)
[2018-11-11] MEDS: DULoxetine 20 MG CAP (CYMBALTA) PO SCH (09:52)
[2018-11-11] MEDS: HumaLOG INSULIN (NovoLOG) PER UNIT SC SCH ×4 (09:52→21:00)
[2018-11-11] MEDS: MAGNESIUM CHLORIDE 64 MG TABCR (SLO MAG) PO SCH (09:52)
--- NOTE | 2018-11-11 19:19 | IPNPDOC ---
Text Note Date of Service The patient was seen on 11/11/18. NOTE Subjective: patient stated that suprapubic pain resolved. Patient denies fever, chills, nausea, vomiting, diarrhea or dysuria Objective: General Exam: Positive: Alert, Cooperative Eye Exam: Positive: PERRLA, Conjunctiva & lids normal ENT Exam: Positive: Atraumatic, Mucous membr. moist/pink Neck Exam: Positive: Supple; Negative: JVD Chest Exam: Positive: Clear to auscultation Heart Exam: Positive: Rate Normal, S1-S2 Back: Mild bilateral tenderness over paraspinal area of lower thoracic and lumbar spine Abdomen Exam: Positive: BS Hyperactive, nontender nondistended Extremity Exam: Negative: Cyanosis, Edema Skin Exam: Negative: Rash Neuro Exam: Positive: Cranial Nerves 3-12 NL Psych Exam: Positive: Mental status NL, Oriented x 3 Assessment and plan: Patient is 68 years old female with past mental history of hypertension, type 2 diabetes, dyslipidemia, obstructive sleep apnea on CPAP, chronic kidney disease stage III, depression, anxiety, morbid obesity, pulmonary emboli presented to the ER with abdominal pain. She stated that 2 days ago she started feeling epigastric abdominal pain 7 out of 10, she did have 1 large bowel movement with black stool. In Emergency room abdominal CAT scan was done and showed diverticulosis without diverticulitis, hepatic steatosis, no free air. Stool for occult blood was negative. In Emergency room patient started complaining of suprapubic pain, catheterization of bladder was done, 800 mL was evacuated. After that patient started feeling bilateral flank pain. Urinalysis was done and showed pyuria. Epigastric pain after GI cocktail subsided.Also patient received treatment with IV Protonix and sucralfate. During hospital stay treatment with ceftriaxone IV cystitis initiated. Most likely suprapubic pain could be attributed to acute cystitis. Urine culture was positive for Escherichia coli. Hemoglobin level is stable. On 11/11/18 I changed IV ceftriaxone to Nitrofurantoin. Patient await placement. Abdominal pain Resolved Problem Text: Abdominal CAT scan was negative for perforation and free air Epigastric pain was subsided after GI cocktail PPI by mouth I talked to Dr. Anderson about EGD and colonoscopy. He recommended conservative treatment and follow-up with GI in the outpatient settings for possible colonoscopy and EGD. Will transfuse if hemoglobin less than 7 Pain management Suprapubic pain Resolved Patient has had dysuria, urine culture was positive with Escherichia coli. Most likely suprapubic pain attributed to acute cystitis Continue by mouth nitrofurantoin GI bleed Resolved Patient noted black stool on the day of admission Differential diagnosis includes gastritis, peptic ulcer, AVM In the ER stool for occult blood was negative Patient is normotensive, hemoglobin stable. No signs or symptoms of acute bleeding for now Problem Text: See above UTI (urinary tract infection) Resolved Urinalysis showed pyuria, patient complains of suprapubic abdominal pain and flank pain. Urine culture positive for Escherichia coli See above Diabetes mellitus Status: Chronic Problem Text: Continue insulin detemir Insulin sliding scale Diabetes diet Pulmonary emboli Status: Chronic Problem Text: Held anticoagulation due to possible GI bleed. No signs or symptoms of bleeding during hospital stay Apixaban 5 mg twice a day restarted back pain There was concern for low thoracic and lumbar spine compression fracture Patient stated that she was diagnosed with osteoporosis X-ray of thoracic and lumbar spine was done and it was negative for compression fracture, showed some arthritic changes PT/OT Constipation Resolved after magnesium citrate Await placement VS,Fishbone, I+O VS, Fishbone, I+O Laboratory Tests 11/11/18 05:33 Red Blood Count 3.75 L, Mean Corpuscular Volume 85.3, Mean Corpuscular Hemoglobin 28.8, Mean Corpuscular Hemoglobin Concent 33.8, Red Cell Distribution Width 11.9, Calcium Level 8.9 Vital Signs Date Time Temp Pulse Resp B/P (MAP) Pulse Ox O2 Delivery O2 Flow Rate FiO2 11/11/18 09:50 59 135/67 11/11/18 06:00 96.9 18 99 11/08/18 17:20 Room Air I&O- Last 24 Hours up to 6 AM 11/11/18 06:00 Intake Total 2230 ml Output Total 4500 ml Balance -2270 ml ISRAEL AC DO Nov 11, 2018 19:19
[2018-11-11] MEDS: NITROFURANTOIN (MACROBID) 100 MG CAP PO SCH (20:57)
[2018-11-11] MEDS: VALSARTAN 40MG TABLET (DIOVAN) PO SCH (20:57)
[2018-11-11] MEDS: SENOKOT S TAB PO SCH (20:57)
[2018-11-11] MEDS: GABAPENTIN 100 MG CAP PO SCH (20:57)
[2018-11-11] MEDS: PRAVASTATIN 20 MG TAB PO SCH (20:57)
[2018-11-11 22:00] VITALS: BP 134/57
[2018-11-12 06:00] VITALS: BP 139/88
[2018-11-12 07:04] LABS: HEMATOCRIT 32.8 % (36.0-47.0); HEMOGLOBIN 10.9 g/dl (12.0-15.5); MEAN CORPUSCULAR HEMOGLOBIN 28.5 pg (27.0-33.0); MEAN CORPUSCULAR HGB CONC 33.2 g/dl (32.0-36.5); MEAN CORPUSCULAR VOLUME 85.9 fl (80.0-96.0); PLATELET COUNT, AUTOMATED 266 10^3/uL (150-450); RED BLOOD COUNT 3.82 10^6/uL (4.00-5.40); WHITE BLOOD COUNT 5.4 10^3/uL (4.0-10.0)
[2018-11-12 07:32] LABS: CALCIUM LEVEL 9.5 MG/DL (8.8-10.2); CREATININE FOR GFR 1.59 MG/DL (0.55-1.30); GLOMERULAR FILTRATION RATE 34.5 (>45); MAGNESIUM LEVEL 1.6 MG/DL (1.8-2.4); POTASSIUM SERUM 3.7 MEQ/L (3.5-5.1)
[2018-11-12] MEDS ORDERED: LEVEMIR (INSULIN DETEMIR) 1 UNITS/0.01ML SC SCH ×2 (09:00→21:00)
[2018-11-12] MEDS: HumaLOG INSULIN (NovoLOG) PER UNIT SC SCH ×4 (09:19→21:16)
[2018-11-12] MEDS: APIXABAN 5 MG TAB (ELIQUIS) PO SCH ×2 (09:20→21:15)
[2018-11-12] MEDS: DULoxetine 20 MG CAP (CYMBALTA) PO SCH (09:20)
[2018-11-12] MEDS: amLODIPine 5 MG TAB PO SCH (09:20)
[2018-11-12] MEDS: NITROFURANTOIN (MACROBID) 100 MG CAP PO SCH ×2 (09:20→21:15)
[2018-11-12] MEDS: CHLORTHALIDONE 25 MG TAB PO SCH (09:20)
[2018-11-12] MEDS: POTASSIUM CHLORIDE 10 MEQ SR TABLET PO SCH ×2 (09:21→21:15)
[2018-11-12] MEDS: MAGNESIUM CHLORIDE 64 MG TABCR (SLO MAG) PO SCH (09:21)
[2018-11-12] MEDS: FLUTICASONE PROP 0.05% NASAL SPRAY 16 GM (FLONASE) NARES SCH (09:21)
[2018-11-12] MEDS: PRAVASTATIN 20 MG TAB PO SCH (21:15)
[2018-11-12] MEDS: VALSARTAN 40MG TABLET (DIOVAN) PO SCH (21:15)
[2018-11-12] MEDS: SENOKOT S TAB PO SCH (21:16)
[2018-11-12] MEDS: GABAPENTIN 100 MG CAP PO SCH (21:16)
[2018-11-13 06:00] VITALS: BP 143/71
[2018-11-13 07:04] LABS: HEMATOCRIT 33.5 % (36.0-47.0); MEAN CORPUSCULAR HEMOGLOBIN 28.3 pg (27.0-33.0); MEAN CORPUSCULAR HGB CONC 32.8 g/dl (32.0-36.5); MEAN CORPUSCULAR VOLUME 86.1 fl (80.0-96.0); PLATELET COUNT, AUTOMATED 264 10^3/uL (150-450); RED BLOOD COUNT 3.89 10^6/uL (4.00-5.40); WHITE BLOOD COUNT 5.4 10^3/uL (4.0-10.0)
[2018-11-13 07:19] LABS: CALCIUM LEVEL 9.4 MG/DL (8.8-10.2); CREATININE FOR GFR 1.36 MG/DL (0.55-1.30); GLOMERULAR FILTRATION RATE 41.3 (>45); MAGNESIUM LEVEL 1.6 MG/DL (1.8-2.4); POTASSIUM SERUM 3.7 MEQ/L (3.5-5.1)
[2018-11-13] MEDS ORDERED: LEVEMIR (INSULIN DETEMIR) 1 UNITS/0.01ML SC SCH ×2 (09:00→21:00)
[2018-11-13] MEDS: HumaLOG INSULIN (NovoLOG) PER UNIT SC SCH ×2 (09:18→11:51)
[2018-11-13] MEDS: POTASSIUM CHLORIDE 10 MEQ SR TABLET PO SCH (09:20)
[2018-11-13 09:21] VITALS: BP 119/78
[2018-11-13] MEDS: amLODIPine 5 MG TAB PO SCH (09:21)
[2018-11-13] MEDS: APIXABAN 5 MG TAB (ELIQUIS) PO SCH (09:24)
[2018-11-13] MEDS: NITROFURANTOIN (MACROBID) 100 MG CAP PO SCH (09:24)
[2018-11-13] MEDS: DULoxetine 20 MG CAP (CYMBALTA) PO SCH (09:24)
[2018-11-13] MEDS: FLUTICASONE PROP 0.05% NASAL SPRAY 16 GM (FLONASE) NARES SCH (09:28)
[2018-11-13] MEDS: CHLORTHALIDONE 25 MG TAB PO SCH (09:30)
[2018-11-13] MEDS: MAGNESIUM CHLORIDE 64 MG TABCR (SLO MAG) PO SCH (09:44)
[2018-11-13] MEDS ORDERED: MAGNESIUM CHLORIDE 64 MG TABCR (SLO MAG) PO ONE (11:00)
--- NOTE | 2018-11-13 21:07 | DS.PDOC ---
Discharge Summary General Date of Admission Nov 08, 2018 at 15:21 Date of Discharge 11/13/18 Attending Physician: ISRAEL AC DO Discharge Summary PROCEDURES PERFORMED DURING STAY: None ADMITTING DIAGNOSES: Abdominal pain Suprapubic pain GI bleed UTI (urinary tract infection) Diabetes mellitus Pulmonary emboli back pain Constipation DISCHARGE DIAGNOSES: Abdominal pain Suprapubic pain GI bleed UTI (urinary tract infection) Diabetes mellitus Pulmonary emboli back pain Constipation COMPLICATIONS/CHIEF COMPLAINT: Abd Pain,Diabetes Mellitus With Hypoglycemia. HISTORY OF PRESENT ILLNESS: Patient is 68 years old female with past mental history of hypertension, type 2 diabetes, dyslipidemia, obstructive sleep apnea on CPAP, chronic kidney disease stage III, depression, anxiety, morbid obesity, pulmonary emboli presented to the ER with abdominal pain. She stated that 2 days ago she started feeling epigastric abdominal pain 7 out of 10, she did have 1 large bowel movement with black stool. In Emergency room abdominal CAT scan was done and showed diverticulosis without diverticulitis, hepatic steatosis, no free air. Stool for occult blood was negative. In Emergency room patient started complaining of suprapubic pain, catheterization of bladder was done, 800 mL was evacuated. After that patient started feeling bilateral flank pain. Urinalysis was done and showed pyuria. Epigastric pain after GI cocktail subsided.Also patient received treatment with IV Protonix and sucralfate. During hospital stay treatment with ceftriaxone IV cystitis initiated. Most likely suprapubic pain could be attributed to acute cystitis. Urine culture was positive for Escherichia coli. Hemoglobin level is stable. On 11/11/18 I changed IV ceftriaxone to Nitrofurantoin. Patient await placement. HOSPITAL COURSE: During hospital stay treatment with ceftriaxone IV cystitis initiated. Most likely suprapubic pain could be attributed to acute cystitis. Urine culture was positive for Escherichia coli. Hemoglobin level is stable. On 11/11/18 I changed IV ceftriaxone to Nitrofurantoin. DISCHARGE MEDICATIONS: Please see below. ALLERGIES: Please see below. PHYSICAL EXAMINATION ON DISCHARGE: VITAL SIGNS: Please see below. General Exam: Positive: Alert, Cooperative Eye Exam: Positive: PERRLA, Conjunctiva & lids normal ENT Exam: Positive: Atraumatic, Mucous membr. moist/pink Neck Exam: Positive: Supple; Negative: JVD Chest Exam: Positive: Clear to auscultation Heart Exam: Positive: Rate Normal, S1-S2 Abdomen Exam: Positive: BS Hyperactive, nontender nondistended Extremity Exam: Negative: Cyanosis, Edema Skin Exam: Negative: Rash Neuro Exam: Positive: Cranial Nerves 3-12 NL LABORATORY DATA: Please see below. IMAGING: CT of the abdomen and pelvis with IV contrast, without bowel contrast for abdominal pain: Comparison is 11/06/2089. The visualized lung xiao are unremarkable. The hepatic parenchyma is less dense than the spleen compatible with hepato steatosis. This is unchanged. There are no hepatic masses. The gallbladder, pancreas, spleen, adrenals and kidneys are unremarkable except for a Bosniak type 1 right renal lower pole 3.7 cm cyst, unchanged. The abdominal aorta is unremarkable except for calcified atheroma. There is no. Aortic adenopathy or mass. The bowel and mesentery are unremarkable except for sigmoid colon diverticula without CT evidence of diverticulitis. Pelvis: The appendix is unremarkable. The bladder is unremarkable. There is a hysterectomy. Vaginal cuff and adnexa are unremarkable. There is no ascites. There is no adenopathy. Impression: Diverticulosis without diverticulitis. Bosniak type 1 right renal cyst. Hepatic steatosis. PROGNOSIS: Favorable ACTIVITY: [As tolerated]. DIET: Diabetes diet DISCHARGE PLAN: RESIDENTIAL DISPOSITION: [facility]. DISCHARGE INSTRUCTIONS: Follow diabetes diet ITEMS TO FOLLOWUP ON ON OUTPATIENT: Follow-up with PCP in one week DISCHARGE CONDITION: Stable TIME SPENT ON DISCHARGE: Greater than 20 minutes. Vital Signs/I&Os Vital Signs Date Time Temp Pulse Resp B/P (MAP) Pulse Ox O2 Delivery O2 Flow Rate FiO2 11/13/18 09:21 119/78 11/13/18 06:00 98.2 46 16 99 11/08/18 17:20 Room Air l I&O- Last 24 Hours up to 6 AM 11/13/18 06:00 Intake Total 1200 ml Balance 1200 ml Laboratory Data Labs 24H Laboratory Tests 2 11/13/18 06:20: Anion Gap 5L, Glomerular Filtration Rate 41.3L, Blood Urea Nitrogen 30H, Creatinine 1.36H, Sodium Level 138, Potassium Level 3.7, Chloride Level 104, Carbon Dioxide Level 29, Calcium Level 9.4, Magnesium Level 1.6L 11/13/18 06:21: Nucleated Red Blood Cells % (auto) 0.0 11/13/18 11:13: Bedside Glucose (Misc Panel) 357H CBC/BMP Laboratory Tests 11/13/18 06:20 Calcium Level 9.4 11/13/18 06:21 Red Blood Count 3.89 L, Mean Corpuscular Volume 86.1, Mean Corpuscular Hemoglobin 28.3, Mean Corpuscular Hemoglobin Concent 32.8, Red Cell Distribution Width 12.3 FSBS Laboratory Tests Test 11/13/18 11:13 Range/Units Bedside Glucose (Misc Panel) 357 80-115 MG/DL Microbiology Microbiology 11/08/18 Blood Culture - Final, Complete NO GROWTH AFTER 5 DAYS 11/11/18 Stool Occult Blood (HUSAM) - Final, Complete 11/08/18 Urine Culture - Final, Complete Escherichia Coli Discharge Medications Scheduled Amlodipine Besylate (Amlodipine Besylate) 5 Mg Tablet, 5 MG PO DAILY, (Reported) Apixaban (Eliquis) 5 Mg Tablet, 5 MG PO BID, (Reported) NOTE IN EMAR STATE THIS IS ON HOLD PER DR CYR Chlorthalidone (Chlorthalidone) 50 Mg Tablet, 50 MG PO DAILY, (Reported) Duloxetine Hcl (Duloxetine HCl) 20 Mg Capsule.dr, 20 MG PO DAILY, (Reported) Ergocalciferol (Vitamin D2) (Drisdol) 50,000 Unit Cap, 50,000 UNIT PO QWEEK, ( Reported) MONDAY Fenofibrate (Fenofibrate) 160 Mg Tab, 160 MG PO DAILY, (Reported) Fluticasone Propionate (Fluticasone Propionate) 50 Mcg/Act Spr, 2 SPRAY NARES DAILY, (Reported) Gabapentin (Neurontin) 100 Mg Capsule, 100 MG PO QHS, (Reported) Insulin Glargine,Hum.rec.anlog (Lantus Solostar) 100 Unit/1 Ml Insuln.pen, 45 UNITS SC QHS, (Reported) Insulin Lispro (Humalog Kwikpen U-100) 100 Unit/1 Ml Insuln.pen, 0 SC ACHS, (Reported) PER SLIDING SCALE Liraglutide (Victoza 3-Anthony) 0.6 Mg/0.1 Ml Pen.injctr, 1.2 MG SQ QPM, (Reported) TAKES @ 1600 Multivitamin (Multivitamins) 1 Each Tablet, 1 TAB PO DAILY, (Reported) Omeprazole (Omeprazole) 40 Mg Capsule.dr, 1 CAP PO DAILY Polyethylene Glycol 3350 (Miralax) 119 Gm Powder, 17 GM PO QHS, (Reported) Potassium Chloride (Potassium Chloride) 20 Meq Tab.er.prt, 20 MEQ PO QHS, (Reported) Pravastatin Sodium (Pravastatin Sodium) 40 Mg Tab, 40 MG PO QHS, (Reported) Sennosides/Docusate Sodium (Sennosides-Docusate Sodium Tab) 1 Each Tablet, 2 TAB PO QHS, (Reported) Valsartan (Valsartan) 40 Mg Tablet, 40 MG PO QHS, (Reported) Scheduled PRN Acetaminophen (Acetaminophen) 500 Mg Tablet, 1,000 MG PO Q6H PRN for PAIN, (Reported) Albuterol Sulfate (Proair Hfa) 8.5 Gm Hfa.aer.ad, 2 PUFF INH Q4H PRN for SHORTNESS OF BREATH, (Reported) Diclofenac Sodium (Diclofenac Sodium) 1 % Gel, 1 DOSE TOP TID PRN for PAIN, (Reported) APPLY TO JOINTS OF HANDS NEEDED Milk Of Magnesia (Milk of Magnesia) 2,400 Mg/10 Ml Oral.susp, 10 ML PO DAILY PRN for CONSTIPATION, (Reported) Tramadol HCl (Tramadol HCl) 50 Mg Tablet, 50 MG PO BID PRN for PAIN, (Reported) Allergies Coded Allergies: TAPE (Verified Allergy, Intermediate, NYLON TAPE CAUSES HIVES PER 09/09/03, 11/06/18) latex (Verified Allergy, Intermediate, RASH, 11/06/18) ibuprofen (Verified Adverse Reaction, Intermediate, BLEEDING, CONSTIPATION, 11/06/18) metoprolol (Verified Adverse Reaction, Intermediate, LOWERS BLOOD PRESSURE TOO MUCH, 11/06/18) LOWERS BLOOD PRESSURE TOO MUCH morphine (Verified Adverse Reaction, Intermediate, ITCHING, 11/06/18) Quinolones (Verified Adverse Reaction, Mild, DIZZINESS, 11/06/18) ISRAEL AC DO Nov 13, 2018 21:07
== END 2018-11-13 12:40 | DRG 690 ==
LOC: EDBD 08:37 → M ED 08:37 → M ED INP 15:21 → M MSPAV 17:47
PROVIDERS: ADMIT Internal Medicine; ATTEND Internal Medicine
DX: N39.0 Urinary tract infection, site not specified (principal); I27.82 Chronic pulmonary embolism; K92.2 Gastrointestinal hemorrhage, unspecified; K59.00 Constipation, unspecified; M54.5 Low back pain; E11.649 Type 2 diabetes mellitus with hypoglycemia without coma; E78.5 Hyperlipidemia, unspecified; G47.33 Obstructive sleep apnea (adult) (pediatric); E66.01 Morbid (severe) obesity due to excess calories; I12.9 Hypertensive chronic kidney disease with stage 1 through stage 4 chronic kidney disease, or unspecified chronic kidney disease; N18.3 Chronic kidney disease, stage 3 (moderate); F41.9 Anxiety disorder, unspecified; F32.9 Major depressive disorder, single episode, unspecified; Z79.4 Long term (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; Z79.899 Other long term (current) drug therapy; Z91.040 Latex allergy status; Z88.6 Allergy status to analgesic agent; Z88.8 Allergy status to other drugs, medicaments and biological substances; E11.40 Type 2 diabetes mellitus with diabetic neuropathy, unspecified

== ENCOUNTER 2018-11-19 16:13 | Emergency (ER) | payer MEDICARE, MEDICAID ==
[~2018-11-19] VITALS: Ht 165.1 cm; Wt 120.0 kg
[~2018-11-19 16:13] MED LIST changes: +NITR100C2 PO; +OMEP40CA2 PO
[2018-11-19] MEDS ORDERED: OMEP40CA2 PO (17:28)
[2018-11-19] MEDS ORDERED: MULTCAP PO (17:31)
[2018-11-19 18:03] LABS: BASO # 0.1 10^3/uL (0.0-0.2); BASO % 0.9 % (0.0-1.0); EOS # 0.1 10^3/uL (0.0-0.5); EOS % 1.8 % (0.0-3.0); HEMATOCRIT 34.9 % (36.0-47.0); HEMOGLOBIN 11.6 g/dl (12.0-15.5); LYMPH # 2.3 10^3/uL (1.5-5.0); LYMPH % 39.4 % (24.0-44.0); MEAN CORPUSCULAR HEMOGLOBIN 28.5 pg (27.0-33.0); MEAN CORPUSCULAR HGB CONC 33.2 g/dl (32.0-36.5); MEAN CORPUSCULAR VOLUME 85.7 fl (80.0-96.0); MONO # 0.5 10^3/uL (0.0-0.8); MONO % 9.1 % (0.0-5.0); NEUTROPHILS # 2.8 10^3/uL (1.5-8.5); NEUTROPHILS % 48.6 % (36.0-66.0); PLATELET COUNT, AUTOMATED 274 10^3/uL (150-450); RED BLOOD COUNT 4.07 10^6/uL (4.00-5.40); WHITE BLOOD COUNT 5.7 10^3/uL (4.0-10.0)
[2018-11-19 18:15] LABS: CALCIUM LEVEL 9.6 MG/DL (8.8-10.2); CREATININE FOR GFR 1.29 MG/DL (0.55-1.30); GLOMERULAR FILTRATION RATE 43.9 (>45); POTASSIUM SERUM 3.4 MEQ/L (3.5-5.1)
--- NOTE | 2018-11-19 18:36 | REP ---
Chest x-ray: Sitting AP and lateral views. History: Cough. Comparison study: September 07, 2018. Findings: The frontal view is exposed at a somewhat lordotic angle. The lungs are well inflated and clear. The pleural angles are sharp. EKG electrodes are seen. Cardiomediastinal silhouette is unremarkable. No infiltrate is seen. There are degenerative changes in the thoracic spine. Impression: No active disease. Electronically Signed by Pb Moran MD 11/19/2018 06:28 P
[2018-11-19] MEDS ORDERED: NS 500 ML IV ONE (18:45)
[2018-11-19 19:18] LABS: INFLUENZA A AMPLIFICATION NEGATIVE (NEGATIVE); INFLUENZA B AMPLIFICATION NEGATIVE (NEGATIVE)
[2018-11-19 19:59] LABS: APPEARANCE, URINE CLEAR (CLEAR); BACTERIA, URINE AUTO NEGATIVE (NEGATIVE); BILIRUBIN, URINE AUTO NEGATIVE (NEGATIVE); BLOOD, URINE BLOOD NEGATIVE (NEGATIVE); COLOR, URINE STRAW (YELLOW); GLUCOSE, URINE (UA) AUTO 3+ mg/dL (NEGATIVE); KETONE, URINE AUTO NEGATIVE (NEGATIVE); LEUKOCYTE ESTERASE, URINE AUTO NEGATIVE (NEGATIVE); NITRITE, URINE AUTO NEGATIVE (NEGATIVE); PROTEIN, URINE AUTO NEGATIVE (NEGATIVE); RBC, URINE AUTO 1 /HPF (0-3); SPECIFIC GRAVITY URINE AUTO 1.012 (1.002-1.035); SQUAMOUS EPITHELIAL CELL UR AU 2 /HPF (0-6); UROBILINOGEN, URINE AUTO 0.2 mg/dL (0.0-2.0); WBC, URINE AUTO 0 /HPF (0-3)
[2018-11-19 22:01] VITALS: BP 119/55
--- NOTE | 2018-11-20 07:18 | ECGEPIP ---
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
== END 2018-11-19 22:18 | disposition home or self-care (01) ==
LOC: M ED 16:13
DX: R53.81 Other malaise (principal); R53.83 Other fatigue; E11.9 Type 2 diabetes mellitus without complications; I12.9 Hypertensive chronic kidney disease with stage 1 through stage 4 chronic kidney disease, or unspecified chronic kidney disease; J44.9 Chronic obstructive pulmonary disease, unspecified; N18.3 Chronic kidney disease, stage 3 (moderate); E78.5 Hyperlipidemia, unspecified; F33.9 Major depressive disorder, recurrent, unspecified; G62.9 Polyneuropathy, unspecified; E66.8 Other obesity; Z79.899 Other long term (current) drug therapy; Z79.4 Long term (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; Z79.01 Long term (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 anticoagulants; Z88.1 Allergy status to other antibiotic agents; Z88.5 Allergy status to narcotic agent; Z88.8 Allergy status to other drugs, medicaments and biological substances; Z91.040 Latex allergy status; Z91.048 Other nonmedicinal substance allergy status

== ENCOUNTER 2018-12-23 13:05 | Emergency (ER) | payer MEDICARE, MEDICAID ==
[~2018-12-23 13:05] MED LIST changes: +FENO48TA13 PO; -FENO48TA2 PO; +MULTCAP PO; -OMEP40CA2 PO; +OMEP40CA97 PO
[2018-12-23] MEDS ORDERED: HumuLIN R (REGULAR) INSULIN (NovoLIN R) **100U/ML** PER UNIT IV ONE ×2 (13:30→15:15)
[2018-12-23] MEDS ORDERED: NS 1,000 ML IV ONE (13:30)
[2018-12-23 14:02] LABS: VENOUS BASE EXCESS -0.7 (-2.0-2.0); VENOUS PARTIAL PRESSURE CO2 35.1 mmHg (38.0-50.0); VENOUS PARTIAL PRESSURE O2 92.7 mmHg (30.0-50.0); VENOUS PH 7.434 UNITS (7.330-7.430); VENOUS STANDARD HCO3 23.9 MEQ/L; VENOUS TOTAL CO2 24.1 MEQ/L (24.0-28.0)
[2018-12-23 14:11] LABS: BASO # 0.1 10^3/uL (0.0-0.2); BASO % 0.8 % (0.0-1.0); EOS # 0.1 10^3/uL (0.0-0.5); EOS % 1.1 % (0.0-3.0); HEMATOCRIT 37.4 % (36.0-47.0); LYMPH # 1.7 10^3/uL (1.5-5.0); LYMPH % 27.3 % (24.0-44.0); MEAN CORPUSCULAR HEMOGLOBIN 29.3 pg (27.0-33.0); MEAN CORPUSCULAR HGB CONC 34.8 g/dl (32.0-36.5); MEAN CORPUSCULAR VOLUME 84.4 fl (80.0-96.0); MONO # 0.5 10^3/uL (0.0-0.8); MONO % 8.2 % (0.0-5.0); NEUTROPHILS # 3.9 10^3/uL (1.5-8.5); NEUTROPHILS % 62.4 % (36.0-66.0); PLATELET COUNT, AUTOMATED 311 10^3/uL (150-450); RED BLOOD COUNT 4.43 10^6/uL (4.00-5.40); WHITE BLOOD COUNT 6.2 10^3/uL (4.0-10.0)
[2018-12-23 14:28] LABS: ACETONE/KETONE 7.01 MG/DL (<2.81)
[2018-12-23 14:30] LABS: HEMOGLOBIN A1c 10.8 %
[2018-12-23] MEDS ORDERED: traMADol 50 MG TAB PO ONE (15:30)
[2018-12-23 15:41] LABS: CALCIUM LEVEL 9.7 MG/DL (8.8-10.2); CREATININE FOR GFR 1.82 MG/DL (0.55-1.30); GLOMERULAR FILTRATION RATE 29.5 (>45); POTASSIUM SERUM 3.2 MEQ/L (3.5-5.1)
[2018-12-23] MEDS ORDERED: POTASSIUM CHLORIDE 10 MEQ SR TABLET PO ONE (16:00)
[2018-12-23 17:25] LABS: CALCIUM LEVEL 9.3 MG/DL (8.8-10.2); CREATININE FOR GFR 1.58 MG/DL (0.55-1.30); GLOMERULAR FILTRATION RATE 34.7 (>45)
[2018-12-23 18:58] VITALS: BP 155/89
== END 2018-12-23 19:01 | disposition home or self-care (01) ==
LOC: M ED 13:05 → EDBD 13:05 → M ED 19:01
DX: R73.9 Hyperglycemia, unspecified (principal); Z79.899 Other long term (current) drug therapy; Z79.01 Long term (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 anticoagulants; Z88.1 Allergy status to other antibiotic agents; Z88.5 Allergy status to narcotic agent; Z88.8 Allergy status to other drugs, medicaments and biological substances; Z91.040 Latex allergy status; Z91.048 Other nonmedicinal substance allergy status

== ENCOUNTER 2018-12-24 23:36 | Emergency (ER) | payer MEDICARE, MEDICAID ==
[~2018-12-24] VITALS: Ht 162.6 cm; Wt 115.9 kg
[2018-12-25 00:19] LABS: BASO # 0.1 10^3/uL (0.0-0.2); BASO % 0.8 % (0.0-1.0); EOS # 0.2 10^3/uL (0.0-0.5); EOS % 2.8 % (0.0-3.0); LYMPH # 3.2 10^3/uL (1.5-5.0); LYMPH % 51.2 % (24.0-44.0); MEAN CORPUSCULAR HGB CONC 34.2 g/dl (32.0-36.5); MEAN CORPUSCULAR VOLUME 84.8 fl (80.0-96.0); MONO # 0.6 10^3/uL (0.0-0.8); MONO % 9.6 % (0.0-5.0); NEUTROPHILS # 2.2 10^3/uL (1.5-8.5); NEUTROPHILS % 35.3 % (36.0-66.0); PLATELET COUNT, AUTOMATED 318 10^3/uL (150-450); RED BLOOD COUNT 4.48 10^6/uL (4.00-5.40); WHITE BLOOD COUNT 6.2 10^3/uL (4.0-10.0)
[2018-12-25 00:33] LABS: CK-MB VALUE MASS 1.5 NG/ML (<3.6); CPK CREATINE PHOSPHOKINASE 146 U/L (26-192); MB/CK RELATIVE INDEX 1.03 (< OR =4); NT-PRO BNP 49 PG/ML (<125); TROPONIN I < 0.02 NG/ML (< 0.10)
[2018-12-25 00:51] LABS: BLOOD UREA NITROGEN 27 MG/DL (7-18); CALCIUM LEVEL 9.2 MG/DL (8.8-10.2); CARBON DIOXIDE LEVEL 29 MEQ/L (21-32); CHLORIDE LEVEL 100 MEQ/L (98-107); GLOMERULAR FILTRATION RATE 36.9 (>45); GLUCOSE, FASTING 195 MG/DL (70-100); POTASSIUM SERUM 3.2 MEQ/L (3.5-5.1); SODIUM LEVEL 136 MEQ/L (136-145)
[2018-12-25] MEDS ORDERED: ISOVUE-370 76% 100ML VIAL (Q9967) As Ordered ONE (01:25)
[2018-12-25] MEDS ORDERED: NS 500 ML IV ONE ×2 (01:30→03:15)
[2018-12-25] MEDS ORDERED: traMADol 50 MG TAB PO ONE (02:00)
--- NOTE | 2018-12-25 02:12 | REPVR ---
PROCEDURE INFORMATION: Exam: CT Angiography Chest With Contrast Exam date and time: 12/25/2018 1:19 AM Clinical history: 68 years old, female; Dyspnea; Additional info: Dysp/dvt TECHNIQUE: Imaging protocol: Computed tomographic angiography of the chest with intravenous contrast. 3D rendering: MIP reconstructed images were created and reviewed. Radiation optimization: All CT scans at this facility use at least one of these dose optimization techniques: automated exposure control; mA and/or kV adjustment per patient size (includes targeted exams where dose is matched to clinical indication); or iterative reconstruction. Contrast material: ISO; Contrast volume: 75 ml; Contrast route: AC; COMPARISON: CT ANGIO CHEST 07/06/2018 1:41 PM FINDINGS: Pulmonary arteries: Contrast bolus timing is optimized for the aorta and suboptimal for pulmonary arteries. Central pulmonary arteries show no intraluminal defect suggestive of clot. Aorta: No thoracic aortic aneurysm or dissection. Lungs: Pulmonary vascular/interstitial pattern does not suggest active pulmonary edema. Lung parenchyma is unremarkable except for dependent atelectasis. No suspicious lung mass or air space process. No central endobronchial lesion. Pleural space: .No pleural effusion or pneumothorax. Heart: No cardiac enlargement or pericardial effusion. Lymph nodes: There are small, nonspecific mediastinal lymph nodes present, none of which are abnormally large. Bones/joints: Bony structures show no acute fracture or destructive process. IMPRESSION: 1. No evidence of acute, central pulmonary embolus. Peripheral pulmonary evaluation is somewhat suboptimal secondary to contrast bolus timing. 2. No evidence of thoracic aortic dissection 3. No other acute or concerning focal intrathoracic abnormality. Electronically signed by: Fitz Aponte On 12/25/2018 02:12:12 AM
[2018-12-25] MEDS ORDERED: POTASSIUM CHLORIDE 10 MEQ SR TABLET PO ONE (03:15)
[2018-12-25 06:35] VITALS: BP 123/58
--- NOTE | 2018-12-25 07:54 | ECGEPIP ---
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
--- NOTE | 2018-12-25 08:25 | REP ---
Single view chest: 12/25/2018. Indication: Dyspnea. Comparison: 11/19/2018. Findings: The lungs are clear. Cardiac silhouette is borderline enlarged. There is no pneumothorax or significant pleural effusion. Impression: No acute cardiopulmonary process. Electronically Signed by Socrates Lee DO 12/25/2018 08:16 A
== END 2018-12-25 06:39 | disposition home or self-care (01) ==
LOC: M ED 23:36
DX: M79.662 Pain in left lower leg (principal); M79.661 Pain in right lower leg; E87.6 Hypokalemia; E86.0 Dehydration; R06.02 Shortness of breath; E11.9 Type 2 diabetes mellitus without complications; I10 Essential (primary) hypertension; E78.5 Hyperlipidemia, unspecified; K21.9 Gastro-esophageal reflux disease without esophagitis; Z86.718 Personal history of other venous thrombosis and embolism; E66.9 Obesity, unspecified; Z79.899 Other long term (current) drug therapy; Z79.4 Long term (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; Z79.01 Long term (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 anticoagulants; Z88.1 Allergy status to other antibiotic agents; Z88.5 Allergy status to narcotic agent; Z88.8 Allergy status to other drugs, medicaments and biological substances; Z91.040 Latex allergy status; Z91.048 Other nonmedicinal substance allergy status
CPT/HCPCS: 36415; 71045; 71275; 80048; 82550; 82553; 83880; 84484; 85025; 93005; 94760; 96360; 96361; 99284; Q9967

== ENCOUNTER 2018-12-26 10:45 | Observation (INO) | payer MEDICARE, MEDICAID ==
[~2018-12-26] VITALS: Ht 167.6 cm; Wt 115.0 kg
[2018-12-26] MEDS ORDERED: NS 1,000 ML IV ONE (13:00)
[2018-12-26] MEDS ORDERED: traMADol 50 MG TAB PO ONE (13:00)
[2018-12-26 13:48] LABS: HEMATOCRIT 36.2 % (36.0-47.0); MEAN CORPUSCULAR HEMOGLOBIN 28.2 pg (27.0-33.0); MEAN CORPUSCULAR HGB CONC 33.1 g/dl (32.0-36.5); MEAN CORPUSCULAR VOLUME 85.2 fl (80.0-96.0); PLATELET COUNT, AUTOMATED 291 10^3/uL (150-450); RED BLOOD COUNT 4.25 10^6/uL (4.00-5.40); WHITE BLOOD COUNT 5.4 10^3/uL (4.0-10.0)
[2018-12-26] MEDS ORDERED: diphenhydrAMINE INJ 50MG/ML VIAL (J1200) IV STA (13:48)
[2018-12-26] MEDS ORDERED: MORPHINE 2 MG/ML 1ML VIAL (J2270) IV ONE ×2 (14:00→16:00)
[2018-12-26 14:20] LABS: ALBUMIN 3.7 GM/DL (3.2-5.2); BILIRUBIN,DIRECT 0.1 MG/DL (0.0-0.2); BILIRUBIN,TOTAL 0.3 MG/DL (0.2-1.0); C REACTIVE PROTEIN QUANTITATIV 0.47 MG/DL (0.00-0.30); MAGNESIUM LEVEL 1.6 MG/DL (1.8-2.4); TOTAL PROTEIN 6.9 GM/DL (6.4-8.2)
[2018-12-26 14:28] LABS: ERYTHROCYTE SEDIMENTATION RATE 30 mm/hr (0-30)
[2018-12-26] MEDS ORDERED: MAG SULF 1GM/100ML (MAG RUN) 1 GM in IV 1 EA IV ONE (14:30)
--- NOTE | 2018-12-26 14:39 | REP ---
Pelvis/bilateral hips: Five views. History: Severe bilateral hip pain, right greater than left. Comparison radiograph showing the pelvis is from June 18, 2018. Findings: AP view of the pelvis demonstrates a laminectomy defect at L4 unchanged. The bony pelvic ring is intact. No fracture is seen. No bony destructive lesion is seen. Sacrum is unremarkable. SI joints appear patent. AP and frog-leg views of both hips demonstrate osteoarthritic spurring bilaterally, left more prominent than right. There is tendon insertion site spurring on the greater trochanters bilaterally. This may reflect tendonitis. Impression: Mild bilateral osteoarthritis of the hips, left greater than right. Bilateral tendon insertion site spurring of the greater trochanters. Question tendonitis. Status post L4 laminectomy. No acute abnormality. Electronically Signed by Pb Moran MD 12/26/2018 05:44 P
--- NOTE | 2018-12-26 14:39 | REP ---
BILATERAL LOWER EXTREMITY DUPLEX VENOUS ULTRASOUND: HISTORY: Severely pain. Known clot on the left. Comparison study September 19, 2018 showed no evidence of left lower extremity venous thrombosis. FINDINGS: The patient is apparently in severe pain and could not tolerate the complete exam. The right leg exam was complete with the exception of the popliteal vein segment and showed no evidence of venous thrombosis. We could not evaluate the left leg as the patient declined further imaging. IMPRESSION: Incomplete exam. The right leg was examined except for the popliteal vein. No right lower extremity DVT was seen. The left leg could not be examined, and the right lower extremity exam could not be completed, due to patient tolerance issues. He declined further imaging. Electronically Signed by Pb Moran MD 12/26/2018 05:44 P
[2018-12-26] MEDS ORDERED: LIDOCAINE 2% 5ML JELLY UROJET TOP ONE (16:00)
[2018-12-26] MEDS ORDERED: diphenhydrAMINE INJ 50MG/ML VIAL (J1200) IV ONE (16:00)
[2018-12-26] MEDS ORDERED: ALBUTEROL SULFATE 2.5 MG/0.5 ML INH NEB SOLN NEB ONE (17:30)
--- NOTE | 2018-12-26 18:03 | REP ---
Two-view chest: 12/26/2018. Indication: Dyspnea. Wheezing. Comparison: CT chest dated 12/25/2018. Findings: There is no evidence of pulmonary air space consolidation, pleural effusion or pneumothorax. Poor inspiratory result is present. Degenerative sequelae of the thoracic spine are noted. Cardiac silhouette is at the upper limits of normal. Impression: No acute cardiopulmonary process. Electronically Signed by Socrates Lee DO 12/26/2018 05:54 P
--- NOTE | 2018-12-26 18:17 | REPVR ---
PROCEDURE INFORMATION: Exam: CT Abdomen And Pelvis Without Contrast Exam date and time: 12/26/2018 5:32 PM Clinical history: 68 years old, female; Abdominal pain; Localized; Lower; Additional info: Diffuse lower abdominal pain TECHNIQUE: Imaging protocol: Computed tomography of the abdomen and pelvis without contrast. Radiation optimization: All CT scans at this facility use at least one of these dose optimization techniques: automated exposure control; mA and/or kV adjustment per patient size (includes targeted exams where dose is matched to clinical indication); or iterative reconstruction. COMPARISON: CT ABD PELVIS W/O CONTRAST 11/06/2018 7:52 PM FINDINGS: Lungs: No suspicious mass or airspace process in the visualized lung bases. Liver: Liver is decreased in density, consistent with fatty infiltration. Gallbladder and bile ducts: Gallbladder is present and shows no evidence of gallstone. Pancreas: Noncontrast pancreas shows no obvious mass or adjacent fluid. Spleen: Noncontrast spleen shows no obvious focal deformity. Adrenals: Adrenal glands are normal in appearance. Kidneys and ureters: Kidneys show no stone or hydronephrosis. Lower pole right renal simple fluid density cyst measuring 3.6 cm. Stomach and bowel: Diverticular changes are present within the colon without inflammation. No evidence of small bowel obstruction. Appendix: Normal caliber appendix is identified, with no adjacent inflammation. Intraperitoneal space: No pneumoperitoneum. Vasculature: Atherosclerotic change present in the aorta, without aneurysm. Lymph nodes: No enlarged lymph nodes. Bladder: Urinary bladder appears normal. Reproductive: Uterus is surgically absent. No abnormal adnexal mass. Bones/joints: Degenerative changes are seen in the lumbar spine with disc height loss, endplate osteophytes and hypertrophic facet arthropathy. Soft tissues: Unremarkable. Other findings: Limited evaluation without enteric or IV contrast. IMPRESSION: 1. No evidence of renal stone or obstruction no evidence of acute appendicitis 2. Colonic diverticulosis without active inflammation. No inflammatory process seen. 3. Incidental right renal simple fluid density cyst which requires no followup. 4. Hepatic steatosis Electronically signed by: Fitz Aponte On 12/26/2018 18:17:25 PM
[2018-12-26] MEDS ORDERED: PROHANCE 279.3MG/ML 5ML VIAL (A9576) As Ordered ONE (19:49)
--- NOTE | 2018-12-26 20:22 | REPVR ---
PROCEDURE INFORMATION: Exam: MR Lumbar Spine Without and With Contrast. 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 Contrast material: PROHANCE; Contrast volume: 10 ml; Contrast route: 22G ANGIO COMPARISON: MRI-Spine, L.S. without con 06/13/2018 8:08 PM FINDINGS: Lumbar vertebrae show no segmental malalignment. Patient has undergone previous posterior decompression L4 and L5 with laminectomies. Pattern is unchanged Vertebral body height, morphology and marrow signal are unremarkable, aside from degenerative reactive endplate changes at multiple levels, as seen previously, and benign fat islands within the T12 and L1 vertebral bodies, hyperintense on both T1 and T2, with no enhancement. No concerning osseous lesion. Degenerative disc height loss and loss of T2 signal at all lumbar levels with sparing of T12-L1. Pattern is essentially identical compared to the prior MRI. Conus terminates at the T12-L1 level with no abnormality in the conus or distal cord. Normal dependent layering of cauda equina nerve roots. No abnormal enhancement of the spinal canal or epidural space. T12-L1: Minimal disc bulge. No canal stenosis or foraminal narrowing. L1-2: Stable right paracentral disc protrusion measuring 4 mm AP, indenting the thecal sac ventrally to a slight degree. Mild hypertrophic facet arthropathy. L2-3: Disc bulge and subtle left paracentral disc protrusion, unchanged, measuring 4 mm AP. Mild hypertrophic facet arthropathy. L3-4: Mild disc bulge and posterior osteophyte formation with no significant spinal canal narrowing. Bilateral inferior recess stenosis is present secondary to facet arthropathy. Unchanged pattern. L4-5: Posterior bridging osteophyte unchanged with minimal ventral thecal sac indentation. Neural foramina are patent. L5-S1: No canal or foraminal compromise No enlarged lymph nodes or prevertebral soft tissue abnormality. No focal fluid collection Imaged distal abdominal aorta is normal in caliber. IMPRESSION: No acute or destructive abnormality and no significant interval change since the prior MRI from 10/13/2018. Postsurgical and degenerative changes as described, with stable pattern and no high-grade canal or foraminal compromise Electronically signed by: Fitz Aponte On 12/26/2018 20:22:01 PM
[2018-12-26] MEDS ORDERED: GLUCOSE 4 GM CHEW TABLET PO PRN (22:30)
[2018-12-26] MEDS ORDERED: DEXTROSE 50% 50 ML SYRINGE IV PRN (22:30)
[2018-12-26] MEDS ORDERED: MOM 30ML SUSPENSION UDC PO PRN (22:30)
[2018-12-26] MEDS ORDERED: ACETAMINOPHEN TAB 650MG DOSE (2X325MG) PO PRN (22:30)
[2018-12-26] MEDS ORDERED: MAALOX 30 ML SUSP *UDC PO PRN (22:30)
[2018-12-26] MEDS ORDERED: ALBUTEROL 90 MCG/ACT 8GM HFA INHALER INH PRN (22:30)
[2018-12-26] MEDS ORDERED: GLUCAGON FOR INJ 1 MG VIAL (J1610) SC PRN (22:30)
--- NOTE | 2018-12-26 22:45 | HPEPDOC ---
General Date of Admission 12/26/18 Date of Service: Dec 26, 2018 Chief Complaint The patient is a 68-year-old female admitted with a reason for visit of Leg Pain Weakness. Source: Patient, Family Exam Limitations: No limitations Timing/Duration: Other Severity: Severe (4 days) Associated Symptoms: Other (. Bilateral leg pain and weakness) History of Present Illness This is 68 years old, obese, white female with past medical history of hypertension, diabetes mellitus type 2, dyslipidemia, obstructive sleep apnea on CPAP, chronic kidney disease stage III, depression, anxiety, morbid obesity, pulmonary emboli, had developed increasing weakness of her both legs and pain and tenderness of her both legs, which is progressively getting worse and she is been seen in the ER a few times and had all the extensive workup done, which has been negative so far. Comes back again with complaining of weakness, unable to ambulate secondary to pain in her both lower legs. No focal motor or sensory deficit. No chest pain, no shortness of breath Home Medications Scheduled Amlodipine Besylate (Amlodipine Besylate) 5 Mg Tablet, 5 MG PO DAILY, (Reported) Apixaban (Eliquis) 5 Mg Tablet, 5 MG PO BID, (Reported) Chlorthalidone (Chlorthalidone) 50 Mg Tablet, 50 MG PO DAILY, (Reported) Duloxetine Hcl (Duloxetine HCl) 20 Mg Capsule.dr, 20 MG PO DAILY, (Reported) Ergocalciferol (Vitamin D2) (Drisdol) 50,000 Unit Cap, 50,000 UNIT PO QWEEK, (Reported) MONDAY Fenofibrate (Fenofibrate) 160 Mg Tab, 160 MG PO DAILY, (Reported) Fluticasone Propionate (Fluticasone Propionate) 50 Mcg/Act Spr, 2 SPRAY NARES DAILY, (Reported) Gabapentin (Neurontin) 100 Mg Capsule, 100 MG PO QHS, (Reported) Insulin Glargine,Hum.rec.anlog (Lantus Solostar) 100 Unit/1 Ml Insuln.pen, 55 UNITS SC QHS, (Reported) Insulin Lispro (Humalog Kwikpen U-100) 100 Unit/1 Ml Insuln.pen, 0 SC ACHS, (Reported) PER SLIDING SCALE 0730, 1130, 1630, 2000 Liraglutide (Victoza 3-Anthony) 0.6 Mg/0.1 Ml Pen.injctr, 1.2 MG SQ QPM, (Reported) TAKES @ 1600 Multivitamin (Multivitamins) 1 Each Capsule, 1 CAP PO DAILY, (Reported) Omeprazole (Omeprazole) 40 Mg Capsule.dr, 40 MG PO DAILY, (Reported) Polyethylene Glycol 3350 (Miralax) 119 Gm Powder, 17 GM PO QHS, (Reported) MIXED IN 4-6 OZ OF WATER Potassium Chloride (Potassium Chloride) 20 Meq Tab.er.prt, 20 MEQ PO QHS, (Reported) Pravastatin Sodium (Pravastatin Sodium) 40 Mg Tab, 40 MG PO QHS, (Reported) Sennosides/Docusate Sodium (Sennosides-Docusate Sodium Tab) 1 Each Tablet, 2 TAB PO QHS, (Reported) Valsartan (Valsartan) 40 Mg Tablet, 40 MG PO QHS, (Reported) Scheduled PRN Acetaminophen (Acetaminophen) 500 Mg Tablet, 1,000 MG PO Q6H PRN for PAIN, (Reported) Albuterol Sulfate (Proair Hfa) 8.5 Gm Hfa.aer.ad, 2 PUFF INH Q4H PRN for SHORTNESS OF BREATH, (Reported) Diclofenac Sodium (Diclofenac Sodium) 1 % Gel, 1 APPLIC TOP TID PRN for PAIN, (Reported) APPLY TO JOINTS OF HANDS NEEDED Milk Of Magnesia (Milk of Magnesia) 2,400 Mg/10 Ml Oral.susp, 10 ML PO DAILY PRN for CONSTIPATION, (Reported) Tramadol HCl (Tramadol HCl) 50 Mg Tablet, 50 MG PO BID PRN for PAIN, (Reported) Allergies Coded Allergies: TAPE (Verified Allergy, Intermediate, NYLON TAPE CAUSES HIVES PER 09/09/03, 12/25/18) latex (Verified Allergy, Intermediate, RASH, 12/25/18) ibuprofen (Verified Adverse Reaction, Intermediate, BLEEDING, CONSTIPATION, 12/25/18) metoprolol (Verified Adverse Reaction, Intermediate, LOWERS BLOOD PRESSURE TOO MUCH, 12/25/18) LOWERS BLOOD PRESSURE TOO MUCH morphine (Verified Adverse Reaction, Intermediate, ITCHING, 12/26/18) Quinolones (Verified Adverse Reaction, Mild, DIZZINESS, 12/25/18) Past Medical History Medical History Hypertension, diabetes mellitus type II, dyslipidemia, obstructive sleep apnea on CPAP, chronic kidney disease stage III, depression, anxiety, morbid obesity, pulmonary emboli Surgical History 2 back surgeries, fourth and fifth disc removed. Fatty tumor removal, right arm, and partial hysterectomy, also right rib removed secondary to cancer Family History Significant Family History: Other (. Father had end-stage renal disease. Mother was with cirrhosis) Social History * Smoker: Denies Alcohol: Denies Drugs: denies A-FIB/CHADSVASC A-FIB History Current/History of A-Fib/PAF?: No Review of Systems Constitutional: Denies: Chills, Fever, Malaise, Night Sweats, Weakness, Fatigue, Weight Loss, Lethargy, Other Eyes: Denies: Pain, Vision change, Conjunctivae inflammation, Eyelid inflammation, Redness, Other ENT: Denies: Head Aches, Ear Pain, Dysphagia, Sinus Congestion, Post Nasal Drip, Sore Throat, Epistaxis, Other Symptoms Pulmonary: Denies: Dyspnea, Cough, Pleuritic Chest Pain, Other Symptoms Cardiovascular: Denies: Chest Pain, Palpitations, Orthopnea, Paroxysmal Noc. Dyspnea, Edema, Lt Headedness, Other Symptoms Gastrointestinal: Denies: Nausea, Vomiting, Abdominal Pain, Diarrhea, Constipation, Melena, Hematochezia, Other Symptoms Genitourinary: Denies: Dysuria, Frequency, Incontinence, Hematuria, Retention, Other Symptoms Hematologic: Denies: Bruising, Bleeding Excessively, Petecchia, Purpura, Enlarged Lymph Nodes, Other Hematologic Endocrine: Denies: Polydipsia, Polyphagia, Polyuria, Heat Intolerance, Cold Intolerance, Other Endocrine Sx Musculoskeletal: Reports: Leg Pain, Other Symptoms (. I lateral leg weakness and burning pain in both legs) Neurological: Denies: Weakness, Numbness, Incoordination, Change in speech, Confusion, Seizures, Other Symptoms Psych: Denies: Mood Normal, Anxiety, Depression, Memory Issues, Thoughts of Self Harm, Anger, Thoughts of Harming Other, Other Psych Physical Examination General Exam: Positive: Alert, Moderate Distress Eye Exam: Positive: PERRLA, Conjunctiva & lids normal ENT Exam: Positive: Atraumatic, Mucous membr. moist/pink Neck Exam: Positive: Supple Chest Exam: Positive: Clear to auscultation, Normal air movement Heart Exam: Positive: Normal S2 Abdomen Exam: Positive: Normal bowel sounds, Soft Extremity Exam: Positive: Other (, unable to examine her lower leg does as soon as I touch her lower leg. She screams in pain before or even placing my hand on her legs. No tenderness on the thighs. No rash or vesicles are swelling or edema noted on both bilateral lower extremities) Skin Exam: Positive: Other skin issue (. No rash noted on bilateral lower extremities) Neuro Exam: Positive: Other (. Unable to examine the lower extremities. This patient complains of pain and would not cooperate, but there is no focal motor, sensory or cranial nerve deficit) Psych Exam: Positive: Other Vital Signs Vital Signs Date Time Temp Pulse Resp B/P (MAP) Pulse Ox O2 Delivery O2 Flow Rate FiO2 12/26/18 21:14 16 12/26/18 21:00 60 90 12/26/18 20:50 97.8 93/54 (67) Room Air Laboratory Data Labs 24H Laboratory Tests 2 12/26/18 13:14: Nucleated Red Blood Cells % (auto) 0.0, Erythrocyte Sedimentation Rate 30, Magnesium Level 1.6L, Total Bilirubin 0.3, Direct Bilirubin 0.1, Aspartate Amino Transf (AST/SGOT) 22, Alanine Aminotransferase (ALT/SGPT) 30, Alkaline Phosphatase 66, Total Creatine Kinase 132, C-Reactive Protein, Quantitative 0.47H, Total Protein 6.9, Albumin 3.7, Albumin/Globulin Ratio 1.16, Lipase 84 12/26/18 13:21: POC Glucose (Misc Panel) 234H, POC Sodium (Misc Panel) 138, POC Potassium (Misc Panel) 3.4L, POC Chloride (Misc Panel) 98, POC Total CO2 (Misc Panel) 30.0H, POC Blood Urea Nitrogen (Misc Panel 20, POC Ionized Calcium (Misc Panel) 4.7, POC Creatinine (Misc Panel) 1.3, POC Hematocrit (Misc Panel) 34.0L 12/26/18 16:38: Urine Color STRAW, Urine Appearance CLEAR, Urine pH 6.0, Urine Specific [place] 1.006, Urine Protein NEGATIVE, Urine Glucose (UA) 2+H, Urine Ketones NEGATIVE, Urine Blood NEGATIVE, Urine Nitrite NEGATIVE, Urine Bilirubin NEGATIVE, Urine Urobilinogen 0.2, Urine Leukocyte Esterase NEGATIVE, Urine WBC (Auto) 0, Urine RBC (Auto) 0, Urine Hyaline Casts (Auto) 0, Urine Bacteria (Auto) NEGATIVE, Urine Squamous Epithelial Cells 0, Urine Sperm (Auto) 12/26/18 18:43: Bedside Glucose (Misc Panel) 188H CBC/BMP Laboratory Tests 12/26/18 13:14 Problems (1) Bilateral lower extremity pain Status: Acute Problem Text: 68 years old white female with past medical history of obesity, hypertension, type 2 diabetes mellitus, dyslipidemia, obstructive sleep apnea on CPAP, chronic kidney disease stage III, depression, anxiety, history of pulmonary emboli, came in with worsening weakness and increased sensitivity and pain in both lower extremities. Patient had a extensive workup done and ED including CT LS spine,Venous Dopplers of both lower extremities and all the studies have been negative so far Patient's clinical exam and symptoms most consistent with possible peripheral neuropathy but it does not explain her weakness Patient will probably require a neurological consultation in a.m. for their further recommendation. Pain is somewhat relieved with pain medications, even in the emergency room Admit patient to medical floor for observation Will start Neurontin 100 mg by mouth 3 times a day for possible peripheral neuropathy Physical therapy evaluation in a.m. Continue all home medications Please call neurology consultation in a.m. for further recommendations DVT prophylaxis with Lovenox Consistent carbohydrate diet Activity as per physical therapy (2) Hypomagnesemia Status: Acute Problem Text: Magnesium supplement given in ED Repeat levels in a.m. (3) Hypokalemia Status: Acute Problem Text: Potassium supplement given in ED Repeat levels in a.m. (4) Hyperlipidemia Status: Chronic Problem Text: Continue home meds (5) HTN (hypertension) Status: Chronic Problem Text: Continue home meds (6) Diabetes mellitus Status: Chronic Problem Text: Fingerstick blood sugar every before meals and at bedtime with coverage Continue home meds Plan / VTE VTE Prophylaxis Ordered?: Yes BEN WEEMS MD Dec 26, 2018 22:45
[2018-12-26] MEDS: traMADol 50 MG TAB PO PRN (22:46)
[2018-12-27 02:00] VITALS: BP 134/70
[2018-12-27 06:00] VITALS: BP 123/64
[2018-12-27 06:17] LABS: HEMATOCRIT 36.6 % (36.0-47.0); HEMOGLOBIN 12.2 g/dl (12.0-15.5); MEAN CORPUSCULAR HEMOGLOBIN 28.8 pg (27.0-33.0); MEAN CORPUSCULAR HGB CONC 33.3 g/dl (32.0-36.5); MEAN CORPUSCULAR VOLUME 86.5 fl (80.0-96.0); PLATELET COUNT, AUTOMATED 277 10^3/uL (150-450); RED BLOOD COUNT 4.23 10^6/uL (4.00-5.40); WHITE BLOOD COUNT 4.5 10^3/uL (4.0-10.0)
[2018-12-27 06:47] LABS: ALBUMIN 3.5 GM/DL (3.2-5.2); BILIRUBIN,TOTAL 0.7 MG/DL (0.2-1.0); CALCIUM LEVEL 9.1 MG/DL (8.8-10.2); CREATININE FOR GFR 1.27 MG/DL (0.55-1.30); GLOMERULAR FILTRATION RATE 44.7 (>45); MAGNESIUM LEVEL 1.7 MG/DL (1.8-2.4); TOTAL PROTEIN 6.7 GM/DL (6.4-8.2)
[2018-12-27] MEDS ORDERED: POTASSIUM CHLORIDE 10 MEQ SR TABLET PO ONE ×2 (07:30→14:30)
[2018-12-27] MEDS: DOCUSATE SODIUM 100 MG CAP PO SCH ×3 (08:22→20:04)
[2018-12-27] MEDS: OMEPRAZOLE 20 MG CAP PO SCH (08:22)
[2018-12-27] MEDS: FENOFIBRATE 145 MG TAB (TRICOR) PO SCH (08:22)
[2018-12-27] MEDS: CHLORTHALIDONE 25 MG TAB PO SCH (08:22)
[2018-12-27] MEDS: HumaLOG INSULIN (NovoLOG) PER UNIT SC SCH ×4 (08:22→22:24)
[2018-12-27] MEDS: MAG SULF 1GM/100ML (MAG RUN) 1 GM in IV 1 EA IV SCH ×2 (08:23→09:30)
[2018-12-27] MEDS: FLUTICASONE PROP 0.05% NASAL SPRAY 16 GM (FLONASE) NARES SCH (08:23)
[2018-12-27] MEDS: DULoxetine 20 MG CAP (CYMBALTA) PO SCH (08:23)
[2018-12-27] MEDS: APIXABAN 5 MG TAB (ELIQUIS) PO SCH ×2 (08:23→20:13)
[2018-12-27] MEDS: amLODIPine 5 MG TAB PO SCH (08:28)
[2018-12-27] MEDS ORDERED: GABAPENTIN 100 MG CAP PO SCH (09:00)
[2018-12-27] MEDS ORDERED: ENOXAPARIN 40 MG/0.4 ML SYRINGE (J1650) SC SCH (09:00)
[2018-12-27] MEDS: traMADol 50 MG TAB PO PRN ×3 (10:06→20:16)
[2018-12-27 10:22] LABS: HEMOGLOBIN A1c 10.8 %
--- NOTE | 2018-12-27 10:58 | IPNPDOC ---
Date Seen The patient was seen on 12/27/18. Progress Note SUBJECTIVE: Patient is a 68-year-old white female with past medical history of type 2 diabetes, chronic kidney disease stage III, obesity, recurrent pulmonary embolisms dyslipidemia, hypertension, obstructive sleep apnea and depression presented to the ER with severe leg pain and weakness. Patient has a past history of leg weakness and neuropathic pain but never anything to this degree. She describes that the pain starts in her hips and radiates to the bottom of her feet. Pain and weakness began Monday at a 10 out of 10. Seen today after being given morphine, she claims the pain has gone down to a 9 out of 10. She explains that Monday she began a three-day fast "because it was something I wanted to do." She participated in this fast through her taoism. During this period, she claims she discontinued her insulin medications. She denies any numbness in her lower extremities as well as denies any numbness, pain or weakness in her upper extremities. He says that her legs feel like "Jell-O" and requires assistance to make it to the bathroom. Patient has had 3 bowel movements while in the hospital where she hasn't been able to make it to the toilet. When asked about her diabetes, she feels it is poorly controlled. She added that she has a clot in her left leg that was diagnosed with ultrasound. She said she had previous history of multiple pulmonary embolisms which were treated with thrombolytic therapy. When asked about her hypertension. She claims that was wrong and she has episodes of hypotension. Patient denies any shortness of breath or chest pain OBJECTIVE PHYSICAL EXAMINATION: VITAL SIGNS: Please see below. GENERAL:. Patient is an obese white female lying in bed. She appears anxious but is cooperative with exam. She is in no acute distress HEENT:. Normocephalic, atraumatic. PERRLA, EOMI. Patient has no difficulty hearing. No nasal discharge. She has a large neck circumference. No tracheal deviation. No carotid bruits noted CARDIOVASCULAR:. Normal rate and rhythm, normal S1, S2, no murmurs, gallops or rubs noted. RESPIRATORY:. Slight Rales heard lower lobes bilaterally. No wheezes or rhonchi noted. ABDOMINAL:. No abdominal tenderness noted. No distention EXTREMITIES: Lower extremities are extremely tender to palpation and exam was difficult. Light palpation of calves or lifting legs higher than 5 causes significant pain, patient becomes tearful. Distal pulses are unable to be assessed NEUROLOGICAL: Patient is able to move her lower extremities. HOwever, due to pain, was unable to assess muscle strength PSYCHOLOGICAL: Mood: Patient claims she is in a lot of pain and is very anxious. Affect: Patient is calm while taking history, however, upon palpation of her lower extremities, she becomes very tearful due to pain. LABORATORY DATA, MICROBIOLOGY: Please see below. Imagin12/26/2018 vascular ultrasound: Incomplete exam, right and left leg were unable to be examined due to pain 12/26/2018 hip x-ray: Mild bilateral osteoarthritis, greater on left. Question tendinitis 12/26/2018 lumbar MRI: No acute or destructive abnormality. No changes from previous. No high-grade canal or foraminal compromise 12/26/2018. Chest x-ray: No acute cardiopulmonary process 12/26/2018. Abdominal/pelvic CT: No evidence of renal stones or acute appendicitis. Colonic diverticulosis without acute inflammation. Incidental right renal simple fluid cyst. Hepatic steatosis DVT prophylaxis ordered?: Patient currently being managed with Apixaban 5mg po bid ASSESSMENT AND PLAN: This is a 68-year-old white female with bilateral lower limb weakness and pain. She claims to have poorly managed type 2 diabetes. Her pain began Monday during a three-day fast. She discontinued her insulin during this period of time. She has previous ongoing neuropathic pain secondary to her diabetes. Most likely this is an exacerbation secondary to electrolyte disturbance. PROBLEMS: #Bilateral Lower Extremity Pain Patient is most likely having a peripheral neuropathy exacerbation secondary to electrolyte disturbance. Her pain is somewhat relieved with morphine down to a 9 out of 10. She was started on Neurontin 100 mg by mouth 3 times a day she has a evaluation scheduled with PT this morning. Additionally, she has a neurology consultation this morning #Hypomagnesemia Patient had a recorded magnesium level of 1.6 on admission. This could be contributing to muscle spasticity and her pain Patient was started on magnesium sulfate drip #Hypokalemia Patient had a recorded potassium level of 3.0 this morning at 0539. This could also be contributing to muscle spasms and pain Patient was given 40 mEq by mouth daily #T2DM Patient's most recent fasting blood glucose at 0539 this morning was 151 She is currently being treated with Humalog sliding scale #Hypertension Patient was restarted on home oral medications currently being treated with losartan #Hyperlipidemia Patient was restarted on her oral medications. She is currently being treated with pravastatin 40 mg #Recurrent DVT/PE She is currently being managed with Apixaban 5mg po bid I saw and evaluated the patient. I agree with the findings and plan of care as documented in the above note VS, I&O, 24H, Fishbone Vital Signs/I&O Vital Signs Date Time Temp Pulse Resp B/P (MAP) Pulse Ox O2 Delivery O2 Flow Rate FiO2 12/27/18 08:28 60 125/63 12/27/18 06:00 97.7 18 94 12/27/18 01:50 Room Air I&O- Last 24 Hours up to 6 AM 12/27/18 06:00 Intake Total 760 ml Output Total 1000 ml Balance -240 ml Laboratory Data 24H LABS Laboratory Tests 2 12/26/18 13:14: Nucleated Red Blood Cells % (auto) 0.0, Erythrocyte Sedimentation Rate 30, Magnesium Level 1.6L, Total Bilirubin 0.3, Direct Bilirubin 0.1, Aspartate Amino Transf (AST/SGOT) 22, Alanine Aminotransferase (ALT/SGPT) 30, Alkaline Phosphatase 66, Total Creatine Kinase 132, C-Reactive Protein, Quantitative 0.47H, Total Protein 6.9, Albumin 3.7, Albumin/Globulin Ratio 1.16, Lipase 84 12/26/18 13:21: POC Glucose (Misc Panel) 234H, POC Sodium (Misc Panel) 138, POC Potassium (Misc Panel) 3.4L, POC Chloride (Misc Panel) 98, POC Total CO2 (Misc Panel) 30.0H, POC Blood Urea Nitrogen (Misc Panel 20, POC Ionized Calcium (Misc Panel) 4.7, POC C reatinine (Misc Panel) 1.3, POC Hematocrit (Misc Panel) 34.0L 12/26/18 16:38: Urine Color STRAW, Urine Appearance CLEAR, Urine pH 6.0, Urine Specific [place] 1.006, Urine Protein NEGATIVE, Urine Glucose (UA) 2+H, Urine Ketones NEGATIVE, Urine Blood NEGATIVE, Urine Nitrite NEGATIVE, Urine Bilirubin NEGATIVE, Urine Urobilinogen 0.2, Urine Leukocyte Esterase NEGATIVE, Urine WBC (Auto) 0, Urine RBC (Auto) 0, Urine Hyaline Casts (Auto) 0, Urine Bacteria (Auto) NEGATIVE, Urine Squamous Epithelial Cells 0, Urine Sperm (Auto) 12/26/18 18:43: Bedside Glucose (Misc Panel) 188H 12/27/18 02:10: Bedside Glucose (Misc Panel) 142H 12/27/18 05:36: 12/27/18 05:39: Nucleated Red Blood Cells % (auto) 0.0, Anion Gap 3L, Glomerular Filtration Rate 44.7L, Calcium Level 9.1, Magnesium Level 1.7L, Total Bilirubin 0.7#, Aspartate Amino Transf (AST/SGOT) 22, Alanine Aminotransferase (ALT/SGPT) 29, Alkaline Phosphatase 54, Total Protein 6.7, Albumin 3.5, Albumin/Globulin Ratio 1.09 CBC/BMP Laboratory Tests 12/26/18 13:14 12/27/18 05:39 CASEY ANGELES-3 Dec 27, 2018 10:58 EUGENIE JEAN MD Dec 27, 2018 13:48
[2018-12-27] MEDS ORDERED: MORPHINE 4 MG/ML 1ML VIAL/SYRINGE (J2270) IV ONE (11:30)
[2018-12-27] MEDS: diphenhydrAMINE 25 MG CAP PO PRN ×2 (12:12→20:13)
[2018-12-27] MEDS ORDERED: MAG SULF 1GM/100ML (MAG RUN) 1 GM in IV 1 EA IV ONE (14:30)
[2018-12-27 15:25] LABS: CALCIUM LEVEL 8.9 MG/DL (8.8-10.2); CREATININE FOR GFR 1.45 MG/DL (0.55-1.30); GLOMERULAR FILTRATION RATE 38.3 (>45); MAGNESIUM LEVEL 1.9 MG/DL (1.8-2.4); POTASSIUM SERUM 3.5 MEQ/L (3.5-5.1)
[2018-12-27] MEDS: GABAPENTIN 100 MG CAP PO SCH ×2 (17:25→20:14)
[2018-12-27] MEDS: MIRALAX *UNIT DOSE* 17GM PACKET PO SCH (20:04)
[2018-12-27] MEDS: SENOKOT S TAB PO SCH (20:04)
[2018-12-27] MEDS: PRAVASTATIN 20 MG TAB PO SCH (20:13)
[2018-12-27] MEDS: POTASSIUM CHLORIDE 10 MEQ SR TABLET PO SCH (20:14)
[2018-12-27] MEDS: VALSARTAN 40MG TABLET (DIOVAN) PO SCH (20:16)
[2018-12-27 22:00] VITALS: BP 128/66
[2018-12-27] MEDS: LEVEMIR (INSULIN DETEMIR) 1 UNITS/0.01ML SC SCH (22:23)
[2018-12-28 06:00] VITALS: BP 124/59
[2018-12-28 07:10] LABS: HEMATOCRIT 35.9 % (36.0-47.0); HEMOGLOBIN 12.1 g/dl (12.0-15.5); MEAN CORPUSCULAR HEMOGLOBIN 29.4 pg (27.0-33.0); MEAN CORPUSCULAR HGB CONC 33.7 g/dl (32.0-36.5); MEAN CORPUSCULAR VOLUME 87.3 fl (80.0-96.0); PLATELET COUNT, AUTOMATED 269 10^3/uL (150-450); RED BLOOD COUNT 4.11 10^6/uL (4.00-5.40); WHITE BLOOD COUNT 4.1 10^3/uL (4.0-10.0)
[2018-12-28 07:37] LABS: CALCIUM LEVEL 8.8 MG/DL (8.8-10.2); CREATININE FOR GFR 1.45 MG/DL (0.55-1.30); GLOMERULAR FILTRATION RATE 38.3 (>45); MAGNESIUM LEVEL 1.8 MG/DL (1.8-2.4); POTASSIUM SERUM 3.3 MEQ/L (3.5-5.1)
[2018-12-28] MEDS: HumaLOG INSULIN (NovoLOG) PER UNIT SC SCH ×4 (08:39→21:22)
[2018-12-28] MEDS: DOCUSATE SODIUM 100 MG CAP PO SCH ×2 (08:39→21:21)
[2018-12-28] MEDS: FENOFIBRATE 145 MG TAB (TRICOR) PO SCH (08:40)
[2018-12-28] MEDS: OMEPRAZOLE 20 MG CAP PO SCH (08:40)
[2018-12-28] MEDS: CHLORTHALIDONE 25 MG TAB PO SCH (08:40)
[2018-12-28] MEDS: GABAPENTIN 100 MG CAP PO SCH ×3 (08:40→21:23)
[2018-12-28] MEDS: APIXABAN 5 MG TAB (ELIQUIS) PO SCH ×2 (08:40→21:21)
[2018-12-28] MEDS: DULoxetine 20 MG CAP (CYMBALTA) PO SCH (08:41)
[2018-12-28] MEDS: FLUTICASONE PROP 0.05% NASAL SPRAY 16 GM (FLONASE) NARES SCH (08:41)
[2018-12-28] MEDS: amLODIPine 5 MG TAB PO SCH (08:41)
[2018-12-28] MEDS: traMADol 50 MG TAB PO PRN ×2 (08:42→21:44)
[2018-12-28 14:00] VITALS: BP 103/57
[2018-12-28] MEDS ORDERED: POTASSIUM CHLORIDE 10 MEQ SR TABLET PO ONE (14:00)
[2018-12-28] MEDS ORDERED: MAG SULF 1GM/100ML (MAG RUN) 1 GM in IV 1 EA IV ONE (14:00)
[2018-12-28] MEDS ORDERED: MAGNESIUM CHLORIDE 64 MG TABCR (SLO MAG) PO ONE (15:30)
[2018-12-28] MEDS: NYSTATIN 100,000 UNITS/GM TOPICAL PWD 15 GM TOP SCH (15:57)
--- NOTE | 2018-12-28 16:30 | IPNPDOC ---
Date Seen The patient was seen on 12/28/18. Progress Note SUBJECTIVE: Patient was seen and examined this morning. She states that her pain in her legs is the same or worse since she has come into the hospital. She denies any other new complaints. There have been no adverse reports overnight with exception of the patient stating that she has had worsening leg pain OBJECTIVE PHYSICAL EXAMINATION: VITAL SIGNS: Please see below. GENERAL: Awake, alert, and oriented. Sitting in chair in room. Appears comfortably. Does not appear in acute distress. HEENT: Atrauamtic, normocephalic. Eyes are nonicteric. Trachea is midline. CARDIOVASCULAR: Normal S1, S2. Regular rate and rhythm. No clicks rubs or murmurs. RESPIRATORY: Fine crackles in the bases. No wheezes or rhonchi. Symmetric chest expansion. No accessory muscle use ABDOMINAL: Obese, soft, nondistended. Nontender to palpation in all 4 quadrants. No rebound tenderness or guarding EXTREMITIES: No edema. Full and equal pulses in bilateral upper and lower extremities. Patient has pain on palpation of her legs bilaterally. Her pain is anterior and posterior. Pain extends from the leg to above the knee bilaterally. NEUROLOGICAL: Allodynia of bilateral knees. Strength testing is 5/5 bilaterally in upper and lower extremities PSYCHOLOGICAL: Mood and affect are appropriate for situation LABORATORY DATA, IMAGING STUDIES, MICROBIOLOGY: Please see below. DVT prophylaxis ordered?: Eliquis 5 mg PO BID ASSESSMENT AND PLAN:Patient is a 68 year old female who presented to the [facility] ER with acute onset of bilateral lower limb weakness and pain. She has a history of diabetes mellitus type 2 which is poorly controlled. Patient had stated that she participated in a 3 days fast and subsequently developed excrutiating pain in her legs bilaterally that was associated with weakness. PROBLEMS: 1. Bilateral Lower Extremity Pain -Patient has a history of peripheral neuropathy likely secondary to her poorly controlled DMII. Her HbgA1C is 10.1. She is poorly controlled. However the onset of her pain was fairly acute and associated with weakness. -Patient has stated that she participated in a fast. Her Mg and K was low and has been repleted. It was suspected that her metabolic derangement may have been causing her leg weakness/increased pain. However she states that she feels no better than previously. -Patient was previously on Neurontin 100mg TID and Cymbalta 20mg. Her Neuron tin has been increased to 200mg TID. She has stated that she has not felt much of a difference in her pain -Patient will be continued with Physical therapy -Neurology consult has been placed for further evaluation of her acute onset bilateral leg pain and weakness. Consultation is appreciated 2. Hypokalemia, Hypomagnesemia -Patient has had low Mg and K. She has been repleted. She was to receive an additional Mag run today however had lost her IV access. She has refused a second IV. Her Mg has been repleted PO. -Will continue to monitor K and Mg 3. DMII -Patient has poorly controlled diabetes. She is currently on 55 units of long acting with sliding scale coverage -Consistent carb diet 4. HTN -Continue patients home medications 5. Hyperlipidemia -Patient was restarted on oral medications. Continue pravastatin 40mg 6. Recurrent DVT/PE -Patient is chronically anticoagulated on Eliquis 5 mg PO BID I saw and evaluated the patient. I agree with the findings and plan of care as documented in the above note VS, I&O, 24H, Fishbone Vital Signs/I&O Vital Signs Date Time Temp Pulse Resp B/P (MAP) Pulse Ox O2 Delivery O2 Flow Rate FiO2 12/28/18 14:00 97.8 65 19 103/57 (72) 95 Room Air I&O- Last 24 Hours up to 6 AM 12/28/18 06:00 Intake Total 1635 ml Output Total 1000 ml Balance 635 ml Laboratory Data 24H LABS Laboratory Tests 2 12/27/18 16:52: Bedside Glucose (Misc Panel) 360H 12/27/18 22:11: Bedside Glucose (Misc Panel) 333H 12/28/18 06:54: Nucleated Red Blood Cells % (auto) 0.0, Anion Gap 6L, Glomerular Filtration Rate 38.3L, Calcium Level 8.8, Magnesium Level 1.8 12/28/18 11:25: Bedside Glucose (Misc Panel) 306H CBC/BMP Laboratory Tests 12/28/18 06:54 LISSETH MINOR DO Dec 28, 2018 16:30 EUGENIE JEAN MD Dec 30, 2018 14:43
[2018-12-28] MEDS: MIRALAX *UNIT DOSE* 17GM PACKET PO SCH (21:00)
[2018-12-28 21:14] VITALS: BP 132/51
[2018-12-28] MEDS: LEVEMIR (INSULIN DETEMIR) 1 UNITS/0.01ML SC SCH (21:22)
[2018-12-28] MEDS: VALSARTAN 40MG TABLET (DIOVAN) PO SCH (21:23)
[2018-12-28] MEDS: SENOKOT S TAB PO SCH (21:23)
[2018-12-28] MEDS: PRAVASTATIN 20 MG TAB PO SCH (21:23)
[2018-12-28] MEDS: POTASSIUM CHLORIDE 10 MEQ SR TABLET PO SCH (21:24)
[2018-12-29 06:00] VITALS: BP 118/69
[2018-12-29] MEDS: HumaLOG INSULIN (NovoLOG) PER UNIT SC SCH ×5 (08:07→22:07)
[2018-12-29] MEDS: DULoxetine 20 MG CAP (CYMBALTA) PO SCH (08:08)
[2018-12-29] MEDS: OMEPRAZOLE 20 MG CAP PO SCH (08:08)
[2018-12-29] MEDS: FENOFIBRATE 145 MG TAB (TRICOR) PO SCH (08:08)
[2018-12-29] MEDS: APIXABAN 5 MG TAB (ELIQUIS) PO SCH ×2 (08:08→20:26)
[2018-12-29] MEDS: GABAPENTIN 100 MG CAP PO SCH (08:08)
[2018-12-29] MEDS: DOCUSATE SODIUM 100 MG CAP PO SCH ×2 (08:08→20:05)
--- NOTE | 2018-12-29 08:19 | CR ---
DATE OF CONSULTATION: 12/28/2018 REFERRING PHYSICIAN: Dr. Larry Kennedy REASON FOR CONSULTATION: Severe leg pain. HISTORY OF PRESENT ILLNESS: Angelita Paz is a 68-year-old woman with history of hypertension, insulin-dependent diabetes, dyslipidemia, obstructive sleep apnea, chronic kidney disease stage 3, depression, anxiety, obesity, pulmonary embolism who states that she has diabetes since the year 1999. She has numbness, tingling and feet and joint pain for last 4-5 years. She has numbness and tingling of her hands for last 4-5 years. She states that she did 3 days of continuous fasting at her cheondoism and only had water for 3 days on , Monday and Monday last week. She states that she did not take her insulin for those 3 days. Her blood sugar was running roughly around 500 on those days but she does not remember the exact. The patient states that Monday she developed worsening weakness in her legs. She felt her joint pain was more than 10/10 in intensity. She felt her joints were hot and they would burst opened in her feet. She felt increased prickly sensation in her hands and feet. She felt her legs would buckle and trembling and she stood up. She came to [facility] three times starting this past Monday. She was admitted at [facility] on December 26, 2018 due to these problems. The patient states that on Monday she had watery diarrhea and had stool incontinence due to watery diarrhea a couple of times this past Monday. She denies any cold, sinus, or flu like symptoms over the last 1 month. She complains of severe headache in occipital head region. She denies any neck or back pain. The patient states that she has history of chronic obstructive pulmonary artery disease (COPD) and had pulmonary embolism and has chronic shortness of breath off and on. This has not worsened. The patient states that Tylenol did not help her pain. Morphine and tramadol brought her pain down from 10/10 to 8/10 in intensity. She denies dysphagia, dysarthria, diplopia, urinary incontinence, falls or loss of consciousness. PAST MEDICAL HISTORY: Hypertension, insulin-dependent diabetes, dyslipidemia, sleep apnea, pulmonary embolism in August 2018, chronic kidney stage 3 disease, depression, anxiety, obesity, two back surgeries, right arm fatty tumor removal, partial hysterectomy, right rib removal due to cancer. FAMILY HISTORY: Father with history of end-stage renal disease and mother had cirrhosis. SOCIAL HISTORY: She denies smoking, alcohol or illicit drugs. REVIEW OF SYSTEMS: All systems were reviewed and found to be noncontributory except as mentioned in history of present illness. HOME MEDICATIONS: - amlodipine 5 mg by mouth daily - Eliquis 5 mg by mouth twice a day, - chlorthalidone 50 mg by mouth daily - Cymbalta 20 mg by mouth daily - gabapentin 100 mg by mouth at bedtime - insulin glargine/Lantus 55 units subcutaneous daily - Flonase 50 mcg, two sprays each nostril twice a day - Victoza 1.2 mg subcutaneous daily - insulin Humalog sliding scale - Prilosec 40 mg by mouth daily - multivitamin one tablet by mouth daily - potassium chloride 20 mEq by mouth daily - pravastatin 40 mg by mouth daily - valsartan 40 mg by mouth daily ALLERGIES: IBUPROFEN, METOPROLOL, MORPHINE, QUINOLONE, LATEX. PHYSICAL EXAMINATION: Temperature 97.8, pulse 65, respiratory rate 19, blood pressure 103/57, 95% saturations on room air. Heart: Regular rate and rhythm. Lungs: Clear to auscultation. Abdomen: Soft, nontender, nondistended. No pedal edema. No musculoskeletal abnormalities. No rash. No signs of meningeal irritation. The patient complains of severe pain in her legs up to knees and starts to cry during strength checking and touching her skin even. The patient is awake, alert, oriented to place, person and time. Normal speech comprehension and repetition. Recent and distant memory is intact. Extraocular muscles are intact. No facial weakness. Tongue and uvula are midline. Visual xiao are full to confrontation. There is no nystagmus. 5/5 strength in all four extremities. Deep tendon reflexes are 1+ in arms and absent at knees and ankles. Plantars are downgoing. She has decreased cold pinprick vibration sensation in her feet and hands. Gait is cautious and antalgic. DIAGNOSTIC STUDIES: Her hemoglobin A1c was 10.8 with normal CBC. Her capital GFR decreased from 44.7-38.3. Creatinine was 1.045. ASSESSMENT: 1. Diabetic painful peripheral neuropathy with sudden worsening due to fasting and not using insulin. 2. Uncontrolled diabetes. 3. Superimposed bilateral carpal tunnel syndrome. PLAN: 1. Discontinue gabapentin and started Lyrica 75 mg by mouth twice a day and this dose can be increased, but we have to be cautious with a dosing due to her chronic kidney disease. 2. Increase Cymbalta 220 mg by mouth daily which the patient states was started within the last 1 week. The patient states that she was on another antidepressant but it was changed to Cymbalta perhaps to help her pain. 3. Physical and occupational therapy. 4. EMG nerve conduction study of arms and legs on outpatient basis. 5. Consider pain clinic referral if her pain remains uncontrolled.
[2018-12-29 08:20] LABS: HEMATOCRIT 36.4 % (36.0-47.0); HEMOGLOBIN 12.1 g/dl (12.0-15.5); MEAN CORPUSCULAR HEMOGLOBIN 28.9 pg (27.0-33.0); MEAN CORPUSCULAR HGB CONC 33.2 g/dl (32.0-36.5); MEAN CORPUSCULAR VOLUME 87.1 fl (80.0-96.0); PLATELET COUNT, AUTOMATED 254 10^3/uL (150-450); RED BLOOD COUNT 4.18 10^6/uL (4.00-5.40)
[2018-12-29] MEDS: NYSTATIN 100,000 UNITS/GM TOPICAL PWD 15 GM TOP SCH (08:22)
[2018-12-29] MEDS: FLUTICASONE PROP 0.05% NASAL SPRAY 16 GM (FLONASE) NARES SCH (08:22)
[2018-12-29] MEDS: amLODIPine 5 MG TAB PO SCH (08:24)
[2018-12-29] MEDS: CHLORTHALIDONE 25 MG TAB PO SCH (08:24)
[2018-12-29 08:35] LABS: CALCIUM LEVEL 9.5 MG/DL (8.8-10.2); CREATININE FOR GFR 1.3 MG/DL (0.55-1.30); GLOMERULAR FILTRATION RATE 43.5 (>45); POTASSIUM SERUM 3.2 MEQ/L (3.5-5.1)
[2018-12-29] MEDS ORDERED: POTASSIUM CHLORIDE 10 MEQ SR TABLET PO ONE (12:00)
[2018-12-29 12:03] LABS: MAGNESIUM LEVEL 1.8 MG/DL (1.8-2.4)
[2018-12-29] MEDS: PREGABALIN 75 MG CAP(LYRICA) PO SCH ×2 (12:58→20:27)
[2018-12-29 14:00] VITALS: BP 120/60
--- NOTE | 2018-12-29 16:26 | IPNPDOC ---
Date Seen The patient was seen on 12/29/18. Progress Note SUBJECTIVE: Patient was seen and examined this morning. She currently states that she has had some improvement in her pain although she still feels weak in her legs. She was seen by Neurology who has made changes to her neuropathic medicines. There were no adverse events reported overnight OBJECTIVE PHYSICAL EXAMINATION: VITAL SIGNS: Please see below. GENERAL: Awake, alert, and oriented. Appears in no acute distress. Sitting in chair comfortably wrapped in blanket. HEENT: Atraumatic, normocephalic. Eyes are nonicteric. Trachea is midline CARDIOVASCULAR: Normal S1, S2. Regular rate and rhythm. No clicks, rubs, or murmurs. RESPIRATORY: Fine crackles in the bases. No wheezes or rhonchi. Symmetric chest expansion. No accessory muscle use. Good respiratory effort ABDOMINAL: Obese, soft, nondistended. Nontender to palpation in all 4 quadrants. No rebound tenderness or guarding. EXTREMITIES: No edema. Full and equal pulses. She continues to have pain on palpation of bilateral legs. Her pain has improved. NEUROLOGICAL: Allodynia of bilateral legs below knees. Improvement in pain since previous examination. PSYCHOLOGICAL: Mood and affect appear appropriate LABORATORY DATA, IMAGING STUDIES, MICROBIOLOGY: Please see below. DVT prophylaxis ordered?: Eliquis 5 mg PO BID ASSESSMENT AND PLAN: Patient is a 68 year old female who presented to the [facility] ER with acute onset of bilateral lower limb weakness and pain. She has a history of diabetes mellitus type 2 which is poorly controlled. Patient had stated that she participated in a 3 days fast and subsequently developed excruciating pain in her legs bilaterally that was associated with weakness. She has been seen by Neurology with medication adjustments made. Her pain has improved today although she still complains of weakness PROBLEMS: 1. Bilateral Lower Extremity Pain -Patients pain and weakness is likely related to her poorly controlled diabetes causing neuropathic pain. Additionally, she has been hypokalemic. M etabolic derangement is on the differential. Her potassium has been supplemented. -Neurology has been consulted. Consultation is appreciated -Neurology has recommended the patient start Lyrica 75 mg PO BID; Cymbalta 220 mg PO -Gabapentin has been discontinued -Physical therapy and occupational therapy has been ordered -Patient will need follow-up with Neurology outpatient for EMG and nerve conduction studies -Pain clinic referral if patients pain remains inadequately controlled 2. Hypomagnesemia -Patient was supplemented oral magnesium yesterday as she refused IV access. -Will continue to monitor 3. Hypokalemia -Patient remains hypokalemic despite repletion effort. Will continue to replete as necessary. -She is currently not taking any medications that would drop her Potassium. -Will check a 24 hour urine potassium to assess for urinary losses 3. DMII -Patient has poorly controlled diabetes. She is currently on 55 units of long acting with sliding scale coverage -Consistent carb diet 4. HTN -Continue patients home medications 5. Hyperlipidemia -Patient was restarted on oral medications. Continue pravastatin 40mg 6. Recurrent DVT/PE -Patient is chronically anticoagulated on Eliquis 5 mg PO BID I saw and evaluated the patient. I agree with the findings and plan of care as documented in the above note VS, I&O, 24H, Fishbone Vital Signs/I&O Vital Signs Date Time Temp Pulse Resp B/P (MAP) Pulse Ox O2 Delivery O2 Flow Rate FiO2 12/29/18 14:00 98.0 65 18 120/60 (80) 98 12/29/18 06:00 NIPPV (BIPAP/CPAP) I&O- Last 24 Hours up to 6 AM 12/29/18 06:00 Intake Total 1018 ml Balance 1018 ml Laboratory Data 24H LABS Laboratory Tests 2 12/28/18 16:51: Bedside Glucose (Misc Panel) 364H 12/28/18 20:51: Bedside Glucose (Misc Panel) 374H 12/28/18 23:14: Bedside Glucose (Misc Panel) 369H 12/29/18 03:49: Bedside Glucose (Misc Panel) 378H 12/29/18 07:23: Nucleated Red Blood Cells % (auto) 0.0, Anion Gap 5L, Glomerular Filtration Rate 43.5L, Calcium Level 9.5, Magnesium Level 1.8 12/29/18 11:47: Bedside Glucose (Misc Panel) 304H CBC/BMP Laboratory Tests 12/29/18 07:23 LISSETH MINOR DO Dec 29, 2018 16:07 EUGENIE JEAN MD Dec 30, 2018 14:46
[2018-12-29] MEDS: SENOKOT S TAB PO SCH (20:04)
[2018-12-29] MEDS: MIRALAX *UNIT DOSE* 17GM PACKET PO SCH (20:05)
[2018-12-29 20:17] VITALS: BP 117/69
[2018-12-29] MEDS: PRAVASTATIN 20 MG TAB PO SCH (20:26)
[2018-12-29] MEDS: VALSARTAN 40MG TABLET (DIOVAN) PO SCH (20:27)
[2018-12-29] MEDS: POTASSIUM CHLORIDE 10 MEQ SR TABLET PO SCH (20:27)
[2018-12-29] MEDS: traMADol 50 MG TAB PO PRN (20:28)
[2018-12-29 22:00] VITALS: BP 119/68
[2018-12-29] MEDS: LEVEMIR (INSULIN DETEMIR) 1 UNITS/0.01ML SC SCH (22:07)
[2018-12-30 06:00] VITALS: BP 113/60
[2018-12-30 06:23] LABS: HEMATOCRIT 36.6 % (36.0-47.0); HEMOGLOBIN 11.9 g/dl (12.0-15.5); MEAN CORPUSCULAR HEMOGLOBIN 28.2 pg (27.0-33.0); MEAN CORPUSCULAR HGB CONC 32.5 g/dl (32.0-36.5); MEAN CORPUSCULAR VOLUME 86.7 fl (80.0-96.0); PLATELET COUNT, AUTOMATED 265 10^3/uL (150-450); RED BLOOD COUNT 4.22 10^6/uL (4.00-5.40); WHITE BLOOD COUNT 5.1 10^3/uL (4.0-10.0)
[2018-12-30 06:52] LABS: CALCIUM LEVEL 9.2 MG/DL (8.8-10.2); CREATININE FOR GFR 1.43 MG/DL (0.55-1.30); POTASSIUM SERUM 3.7 MEQ/L (3.5-5.1)
[2018-12-30] MEDS: DOCUSATE SODIUM 100 MG CAP PO SCH ×2 (08:43→20:37)
[2018-12-30] MEDS: HumaLOG INSULIN (NovoLOG) PER UNIT SC SCH ×5 (08:44→20:43)
[2018-12-30] MEDS: PREGABALIN 75 MG CAP(LYRICA) PO SCH ×2 (08:44→20:44)
[2018-12-30] MEDS: OMEPRAZOLE 20 MG CAP PO SCH (08:45)
[2018-12-30] MEDS: FLUTICASONE PROP 0.05% NASAL SPRAY 16 GM (FLONASE) NARES SCH (08:45)
[2018-12-30] MEDS: FENOFIBRATE 145 MG TAB (TRICOR) PO SCH (08:45)
[2018-12-30] MEDS: APIXABAN 5 MG TAB (ELIQUIS) PO SCH ×2 (08:45→20:45)
[2018-12-30] MEDS: NYSTATIN 100,000 UNITS/GM TOPICAL PWD 15 GM TOP SCH (08:45)
[2018-12-30] MEDS: CHLORTHALIDONE 25 MG TAB PO SCH (08:45)
[2018-12-30] MEDS: DULoxetine 20 MG CAP (CYMBALTA) PO SCH (08:45)
[2018-12-30] MEDS: amLODIPine 5 MG TAB PO SCH (08:46)
[2018-12-30 14:00] VITALS: BP 132/50
--- NOTE | 2018-12-30 14:05 | IPNPDOC ---
Date Seen The patient was seen on 12/30/18. Progress Note SUBJECTIVE: Patient reports some mild improvement in her pain. She tells me she is still shaky on her feet. She tells me she does not want to go home and that she is interested in going to [place] for rehabilitation possibly to live. She denies fevers chills chest pressure shortness of breath bowel or bladder incontinence paresthesias OBJECTIVE PHYSICAL EXAMINATION: VITAL SIGNS: Please see below. GENERAL: Awake, alert, and oriented. Appears in no acute distress. Sitting in chair comfortably eating breakfast speaking in complete sentences HEENT: Atraumatic, normocephalic. Eyes are nonicteric. Trachea is midline CARDIOVASCULAR: Normal S1, S2. Regular rate and rhythm. RESPIRATORY: No wheezes or rhonchi. Symmetric chest expansion. No accessory muscle use. Good respiratory effort ABDOMINAL: Obese, soft, nondistended. Nontender to palpation in all 4 quadrants. EXTREMITIES: No edema. Full and equal pulses. She continues to have pain on palpation of bilateral legs. Her pain has improved. NEUROLOGICAL: Allodynia of bilateral legs below knees. Improvement in pain since previous examination. PSYCHOLOGICAL: Mood and affect appear somewhat depressed LABORATORY DATA, IMAGING STUDIES, MICROBIOLOGY: Please see below. DVT prophylaxis ordered?: Eliquis 5 mg PO BID ASSESSMENT AND PLAN: Patient is a 68 year old female who presented to the [facility] ER with acute onset of bilateral lower limb weakness and pain. PROBLEMS: 1. Diabetic peripheral neuropathy: She does have some improvement with Lyrica up titration of Cymbalta however she continues to complain of pain that is debilitating and not able for her to live on her own. Pain management consult see her tomorrow I'll speak with PFS about potential placements rehabilitation versus long-term detention. Her neuropathy is likely worsened secondary to her poorly controlled diabetes as evidenced by her hemoglobin A1c greater than 10.5. Advised patient to continue to work with physical therapy and occupational therapy patient will benefit from outpatient EMG nerve conduction studies 2. Hypomagnesemia : Status post repletion within normal limits at last check 3. Hypokalemia : Resolved status post repletion 3. DMII -Patient has poorly controlled diabetes. I'm increasing her nighttime Levemir to 65 units she is on sliding scale coverage and a consistent carb diet 4. HTN -Continue patients home medications , valsartan Norvasc chlorthalidone 5. Hyperlipidemia - Continue pravastatin 40mg as well as TriCor 6. Recurrent DVT/PE -Patient is chronically anticoagulated on Eliquis 5 mg PO BID 7. Chronic constipation: Continue with bowel regimen 8. Chronic pain in addition to the aforementioned she above she is also on tramadol but she does not feel this is helping her much 9. Gastroesophageal reflux disease: Continue with omeprazole Disposition: Likely placement VS, I&O, 24H, Fishbone Vital Signs/I&O Vital Signs Date Time Temp Pulse Resp B/P (MAP) Pulse Ox O2 Delivery O2 Flow Rate FiO2 12/30/18 08:46 61 118/60 12/30/18 06:00 98.1 17 92 12/29/18 22:00 Room Air I&O- Last 24 Hours up to 6 AM 12/30/18 05:59 Intake Total 1200 ml Output Total 0 ml Balance 1200 ml Laboratory Data 24H LABS Laboratory Tests 2 12/29/18 17:07: Bedside Glucose (Misc Panel) 280H 12/29/18 21:25: Bedside Glucose (Misc Panel) 323H 12/30/18 05:52: Nucleated Red Blood Cells % (auto) 0.0, Anion Gap 4L, Glomerular Filtration Rate 39.0L, Calcium Level 9.2 12/30/18 11:35: Bedside Glucose (Misc Panel) 362H CBC/BMP Laboratory Tests 12/30/18 05:52 EUGENIE JEAN MD Dec 30, 2018 14:05
[2018-12-30] MEDS: MIRALAX *UNIT DOSE* 17GM PACKET PO SCH (20:37)
[2018-12-30] MEDS: SENOKOT S TAB PO SCH (20:37)
[2018-12-30 20:38] VITALS: BP 122/58
[2018-12-30] MEDS: PRAVASTATIN 20 MG TAB PO SCH (20:44)
[2018-12-30] MEDS: VALSARTAN 40MG TABLET (DIOVAN) PO SCH (20:44)
[2018-12-30] MEDS: POTASSIUM CHLORIDE 10 MEQ SR TABLET PO SCH (20:45)
[2018-12-30] MEDS ORDERED: LEVEMIR (INSULIN DETEMIR) 1 UNITS/0.01ML SC SCH (21:00)
[2018-12-31 06:00] VITALS: BP 120/64
[2018-12-31 06:19] LABS: HEMATOCRIT 35.8 % (36.0-47.0); HEMOGLOBIN 11.7 g/dl (12.0-15.5); MEAN CORPUSCULAR HEMOGLOBIN 28.2 pg (27.0-33.0); MEAN CORPUSCULAR HGB CONC 32.7 g/dl (32.0-36.5); MEAN CORPUSCULAR VOLUME 86.3 fl (80.0-96.0); PLATELET COUNT, AUTOMATED 270 10^3/uL (150-450); RED BLOOD COUNT 4.15 10^6/uL (4.00-5.40); WHITE BLOOD COUNT 5.3 10^3/uL (4.0-10.0)
[2018-12-31 06:46] LABS: CALCIUM LEVEL 9.6 MG/DL (8.8-10.2); CREATININE FOR GFR 1.34 MG/DL (0.55-1.30); POTASSIUM SERUM 3.3 MEQ/L (3.5-5.1)
[2018-12-31] MEDS: OMEPRAZOLE 20 MG CAP PO SCH (08:53)
[2018-12-31] MEDS: DOCUSATE SODIUM 100 MG CAP PO SCH (08:53)
[2018-12-31] MEDS: HumaLOG INSULIN (NovoLOG) PER UNIT SC SCH ×2 (08:53→12:33)
[2018-12-31 08:54] VITALS: BP 127/67
[2018-12-31] MEDS: FENOFIBRATE 145 MG TAB (TRICOR) PO SCH (08:54)
[2018-12-31] MEDS: APIXABAN 5 MG TAB (ELIQUIS) PO SCH (08:54)
[2018-12-31] MEDS: PREGABALIN 75 MG CAP(LYRICA) PO SCH (08:54)
[2018-12-31] MEDS: CHLORTHALIDONE 25 MG TAB PO SCH (08:54)
[2018-12-31] MEDS: DULoxetine 20 MG CAP (CYMBALTA) PO SCH (08:54)
[2018-12-31] MEDS: amLODIPine 5 MG TAB PO SCH (08:54)
[2018-12-31] MEDS: NYSTATIN 100,000 UNITS/GM TOPICAL PWD 15 GM TOP SCH (08:55)
[2018-12-31] MEDS: FLUTICASONE PROP 0.05% NASAL SPRAY 16 GM (FLONASE) NARES SCH (08:55)
[2018-12-31] MEDS ORDERED: LEVEMIR (INSULIN DETEMIR) 1 UNITS/0.01ML SC SCH (09:00)
[2018-12-31] MEDS ORDERED: TRAM50TA2 PO (11:15)
[2018-12-31] MEDS ORDERED: LYRI75CA PO (11:15)
[2018-12-31] MEDS ORDERED: LANTINJ4 SC (12:55)
[2018-12-31] MEDS ORDERED: KLOR10TA76 PO (12:55)
--- NOTE | 2018-12-31 15:16 | DS.PDOC ---
Discharge Summary General Date of Admission Dec 26, 2018 at 10:46 Date of Discharge Dec 31, 2018 Attending Physician: EUGENIE JEAN MD Discharge Summary PROCEDURES PERFORMED DURING STAY: none ADMITTING DIAGNOSES: 1. Bilateral lower extremity pain. 2. Hypomagnesemia. 3. Hypokalemia. 4. Hyperlipidemia. 5. Hypertension. 6. Diabetes mellitus type 2. 7. GERD DISCHARGE DIAGNOSES: 1. Diabetic peripheral neuropathy. 2. Hypokalemia. 3. Hypertension. 4. Hyperlipidemia 5. Diabetes mellitus type 2. 6. GERD COMPLICATIONS/CHIEF COMPLAINT: Bilateral Lower Extremity Pain. HISTORY OF PRESENT ILLNESS: Patient is a 68-year-old white female with past medical history of type 2 diabetes, chronic kidney disease stage III, obesity, recurrent pulmonary embolisms, dyslipidemia, hypertension, obstructive sleep apnea and depression presenting to the ER with severe leg pain and weakness. Patient has a past history of leg weakness and neuropathic pain but never anything to this degree. She describes that the pain starts in her hips and radiates to the bottom of her feet. Pain and weakness began Monday at a 10 out of 10. Seen today after being given morphine, she claims the pain has gone down to a 9 out of 10. She explains that Monday she began a three-day fast "because it was something I wanted to do." She participated in this fast through her druze. During this period, she claims she discontinued her insulin medications. She denies any numbness in her lower extremities as well as denies any numbness, pain or weakness in her upper extremities. He says that her legs feel like "Jell-O" and requires assistance to make it to the bathroom. Patient has had 3 bowel movements while in the hospital where she hasn't been able to make it to the toilet. When asked about her diabetes, she feels it is poorly controlled. She said she had previous history of multiple pulmonary embolisms which were treated with thrombolytic therapy. When asked about her hypertension, she claims that was wrong and she has episodes of hypotension. Patient denies any shortness of breath or chest pain HOSPITAL COURSE: Patient's pain was initially managed with tramadol 100 mg and morphine 2 mg IV. Additionally, patient had low magnesium and potassium levels at 1.7 and 3.0 respectively on admission. She was started on magnesium sulfate and potassium chloride supplements. Patient had a vascular ultrasound to rule out any DVT, results were inconclusive due to difficulty of exam with patient's pain. Imaging was ordered to evaluate for any structural etiologies of her pain. Patient demonstrated poorly controlled diabetes and insulin was titrated in order to gain better control of blood glucose levels. Neurology was consulted and patient was started on gabapentin 100 mg by mouth 3 times a day. PT, OT were consulted in order to better manage patient's lower extremity pain and weakness. Patient's magnesium levels returned to normal ranges upon repletion. Patient was restarted on oral medications valsartan, chlorthalidone and amlodipine for her hypertension. A combination of Lyrica and Cymbalta reduced patient's pain to 6/10. Patient continued to have poorly controlled blood sugars with an average value of around 300. Patient's Levemir was changed to 35U BID. Additionally, potassium levels were inconsistent due to insulin titration. Potassium supplement was increased to 40 mEq by mouth daily. Due to patient's lower limb weakness, she was approved for senior care at [facility]. Patient requested dietary consultation upon discharge. DISCHARGE MEDICATIONS: Please see below. ALLERGIES: Please see below. PHYSICAL EXAMINATION ON DISCHARGE: VITAL SIGNS: Please see below. GENERAL: Patient was seen sitting comfortably in a chair. She was awake, alert and oriented no acute distress HEENT: Normocephalic, atraumatic. PERRLA, EOMI no scleral icterus noted. No nasal discharge. Trachea is midline CARDIOVASCULAR:. Regular rate and rhythm. Normal S1 and S2. No murmurs, rubs or gallops noted. RESPIRATORY:. Symmetric chest wall expansion. No accessory muscle use. Lungs were clear to auscultation bilaterally. No wheezes, Rales or rhonchi. ABDOMINAL:. No lesions noted. Normal bowel sounds in all 4 quadrants. No masses noted. No tenderness, rebound or guarding EXTREMITIES:. Patient has mild 1+ pitting edema in her bilateral lower extremities. 1/4 pulses in her lower extremities bilaterally. Patient still reports pain upon palpation of her lower extremities. However, a more in-depth physical exam was able to be performed due to the reduction in pain since 12/27/2018 NEUROLOGICAL: Patient still reports allodynia bilaterally in her lower extremities. There is reduction in sensation as well as vibratory perception PSYCHOLOGICAL: Mood and affect are appropriate. Patient appeared elated when discussing discharge home to [place] LABORATORY DATA: Please see below. IMAGIN12/26/2018 vascular ultrasound: Incomplete exam, right and left leg were unable to be examined due to pain 12/26/2018 hip x-ray: Mild bilateral osteoarthritis, greater on left. Question tendinitis 12/26/2018 lumbar MRI: No acute or destructive abnormality. No changes from previous. No high-grade canal or foraminal compromise 12/26/2018. Chest x-ray: No acute cardiopulmonary process 12/26/2018. Abdominal/pelvic CT: No evidence of renal stones or acute appendicitis. Colonic diverticulosis without acute inflammation. Incidental right renal simple fluid cyst. Hepatic steatosis PROGNOSIS: Good ACTIVITY: [As tolerated]. 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 Pt should work with [facility] meal planners to decide on an appropriate meal plan. Consistent carbohydrate diet. DISCHARGE PLAN: -Patient requested a referral for a dietitian through her PCP. -Continue all medication as prescribed -Follow up with PCP within 7 Days DISPOSITION: [facility]. DISCHARGE CONDITION: [Stable]. TIME SPENT ON DISCHARGE: Greater than 40 minutes. Vital Signs/I&Os Vital Signs Date Time Temp Pulse Resp B/P (MAP) Pulse Ox O2 Delivery O2 Flow Rate FiO2 12/31/18 08:54 62 127/67 12/31/18 06:00 98.1 18 98 Room Air I&O- Last 24 Hours up to 6 AM 12/31/18 06:00 Intake Total 540 ml Output Total 4000 ml Balance -3460 ml Laboratory Data Labs 24H Laboratory Tests 2 12/30/18 16:59: Bedside Glucose (Misc Panel) 423H 12/30/18 20:15: Bedside Glucose (Misc Panel) 381H 12/31/18 05:55: Nucleated Red Blood Cells % (auto) 0.0, Anion Gap 6L, Glomerular Filtration Rate 42.0L, Calcium Level 9.6 12/31/18 11:49: Bedside Glucose (Misc Panel) 305H CBC/BMP Laboratory Tests 12/31/18 05:55 FSBS Laboratory Tests Test 12/30/18 16:59 12/30/18 20:15 12/31/18 11:49 Range/Units Bedside Glucose (Misc Panel) 423 381 305 80-115 MG/DL Discharge Medications Scheduled Amlodipine Besylate (Amlodipine Besylate) 5 Mg Tablet, 5 MG PO DAILY, (Reported) Apixaban (Eliquis) 5 Mg Tablet, 5 MG PO BID, (Reported) Chlorthalidone (Chlorthalidone) 50 Mg Tablet, 50 MG PO DAILY, (Reported) Duloxetine Hcl (Duloxetine HCl) 20 Mg Capsule.dr, 20 MG PO DAILY, (Reported) Ergocalciferol (Vitamin D2) (Drisdol) 50,000 Unit Cap, 50,000 UNIT PO QWEEK, (Reported) MONDAY Fenofibrate (Fenofibrate) 160 Mg Tab, 160 MG PO DAILY, (Reported) Fluticasone Propionate (Fluticasone Propionate) 50 Mcg/Act Spr, 2 SPRAY NARES DAILY, (Reported) Insulin Glargine,Hum.rec.anlog (Lantus Solostar) 100 Unit/1 Ml Insuln.pen, 35 UNITS SC BID Insulin Lispro (Humalog Kwikpen U-100) 100 Unit/1 Ml Insuln.pen, 0 SC ACHS, (Reported) PER SLIDING SCALE 0730, 1130, 1630, 2000 Liraglutide (Victoza 3-Anthony) 0.6 Mg/0.1 Ml Pen.injctr, 1.2 MG SQ QPM, (Reported) TAKES @ 1600 Multivitamin (Multivitamins) 1 Each Capsule, 1 CAP PO DAILY, (Reported) Omeprazole (Omeprazole) 40 Mg Capsule.dr, 40 MG PO DAILY, (Reported) Polyethylene Glycol 3350 (Miralax) 119 Gm Powder, 17 GM PO QHS, (Reported) MIXED IN 4-6 OZ OF WATER Potassium Chloride (Klor-Con M10) 10 Meq Tab.er.prt, 40 MEQ PO QHS Pravastatin Sodium (Pravastatin Sodium) 40 Mg Tab, 40 MG PO QHS, (Reported) Pregabalin (Lyrica) 75 Mg Capsule, 75 MG PO BID Sennosides/Docusate Sodium (Sennosides-Docusate Sodium Tab) 1 Each Tablet, 2 TAB PO QHS, (Reported) Valsartan (Valsartan) 40 Mg Tablet, 40 MG PO QHS, (Reported) Scheduled PRN Acetaminophen (Acetaminophen) 500 Mg Tablet, 1,000 MG PO Q6H PRN for PAIN, (Reported) Albuterol Sulfate (Proair Hfa) 8.5 Gm Hfa.aer.ad, 2 PUFF INH Q4H PRN for SHORTNESS OF BREATH, (Reported) Diclofenac Sodium (Diclofenac Sodium) 1 % Gel, 1 APPLIC TOP TID PRN for PAIN, (Reported) APPLY TO JOINTS OF HANDS NEEDED Milk Of Magnesia (Milk of Magnesia) 2,400 Mg/10 Ml Oral.susp, 10 ML PO DAILY PRN for CONSTIPATION, (Reported) Tramadol HCl (Tramadol HCl) 50 Mg Tablet, 50 MG PO BID PRN for PAIN, (Reported) Tramadol HCl (Tramadol HCl) 50 Mg Tablet, 50 MG PO TID PRN for PAIN Allergies Coded Allergies: TAPE (Verified Allergy, Intermediate, NYLON TAPE CAUSES HIVES PER 09/09/03, 12/25/18) latex (Verified Allergy, Intermediate, RASH, 12/25/18) ibuprofen (Verified Adverse Reaction, Intermediate, BLEEDING, CONSTIPATION, 12/25/18) metoprolol (Verified Adverse Reaction, Intermediate, LOWERS BLOOD PRESSURE TOO MUCH, 12/25/18) LOWERS BLOOD PRESSURE TOO MUCH morphine (Verified Adverse Reaction, Intermediate, ITCHING, 12/26/18) Quinolones (Verified Adverse Reaction, Mild, DIZZINESS, 12/25/18) CASEY ANGELES-3 Dec 31, 2018 15:16 LORETTA TANG MD Dec 31, 2018 16:21
[2018-12-31] MEDS ORDERED: POTASSIUM CHLORIDE 10 MEQ SR TABLET PO SCH (21:00)
== END 2018-12-31 13:47 ==
LOC: M ED 10:45 → EDBD 10:45 → M ED INP 10:46 → M MSPAV 12-27 01:57
PROVIDERS: ADMIT Internal Medicine; ATTEND Internal Medicine
DX: E11.40 Type 2 diabetes mellitus with diabetic neuropathy, unspecified (principal); E87.6 Hypokalemia; I12.9 Hypertensive chronic kidney disease with stage 1 through stage 4 chronic kidney disease, or unspecified chronic kidney disease; E78.49 Other hyperlipidemia; K21.9 Gastro-esophageal reflux disease without esophagitis; N18.3 Chronic kidney disease, stage 3 (moderate); E66.01 Morbid (severe) obesity due to excess calories; Z86.711 Personal history of pulmonary embolism; G47.33 Obstructive sleep apnea (adult) (pediatric); F32.9 Major depressive disorder, single episode, unspecified; R53.1 Weakness; Z79.4 Long term (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; Z79.899 Other long term (current) drug therapy; Z91.040 Latex allergy status; Z88.8 Allergy status to other drugs, medicaments and biological substances; F41.9 Anxiety disorder, unspecified; Z88.5 Allergy status to narcotic agent
CPT/HCPCS: 36415; 51701; 71046; 72158; 73521; 74176; 80047; 80053; 80076; 81001; 82550; 82607; 83036; 83690; 83735; 85027; 85652; 86140; 93970; 94640; 96361; 96374; 96375; 96376; 97110; 97162; 97165; 97530; 97535; 99285; A9576; G0378; J1200; J2270; J3475

== ENCOUNTER → 2019-01-07 | Outpatient (REF) | payer MEDICARE, MEDICAID ==
[~2019-01-07] MED LIST changes: +KLOR10TA76 PO; +LYRI75CA PO
[2019-01-07 11:35] LABS: HEMOGLOBIN 11.8 g/dl (12.0-15.5); MEAN CORPUSCULAR HEMOGLOBIN 28.6 pg (27.0-33.0); MEAN CORPUSCULAR HGB CONC 32.8 g/dl (32.0-36.5); MEAN CORPUSCULAR VOLUME 87.2 fl (80.0-96.0); PLATELET COUNT, AUTOMATED 268 10^3/uL (150-450); RED BLOOD COUNT 4.13 10^6/uL (4.00-5.40); WHITE BLOOD COUNT 5.3 10^3/uL (4.0-10.0)
[2019-01-07 12:05] LABS: CALCIUM LEVEL 9.3 MG/DL (8.8-10.2); CREATININE FOR GFR 1.49 MG/DL (0.55-1.30); GLOMERULAR FILTRATION RATE 37.2 (>45); POTASSIUM SERUM 3.7 MEQ/L (3.5-5.1)
== END ==
PROVIDERS: ATTEND Internal Medicine
DX: R19.7 Diarrhea, unspecified (principal)

== ENCOUNTER → 2019-01-08 | Outpatient (REF) ==
--- NOTE | 2019-01-08 08:42 | REP ---
Clinical: Diarrhea. Technique: Portable supine views of the abdomen and pelvis. Findings: Examination is severely limited due to portable technique, body habitus and underpenetration. No obvious bowel obstruction. Impression: Limited examination. No obvious bowel obstruction. Electronically Signed by Hussein Barbosa MD 01/08/2019 08:34 A
== END ==
PROVIDERS: ATTEND Internal Medicine
DX: R19.7 Diarrhea, unspecified (principal)

== ENCOUNTER → 2019-01-09 | Outpatient (REF) ==
--- NOTE | 2019-01-09 13:34 | REP ---
Clinical: Right hand pain. Technique: AP, lateral, bilateral oblique views of the right hand. Findings: Mild/early moderate arthritic changes at the interphalangeal joints include subchondral sclerosis, joint space narrowing, marginal spurring. No acute fracture or dislocation. Impression: Mild/early moderate arthritic changes involving the interphalangeal joints. Electronically Signed by Hussein Barbosa MD 01/09/2019 01:25 P
== END ==
PROVIDERS: ATTEND Internal Medicine
DX: M79.641 Pain in right hand (principal); M19.041 Primary osteoarthritis, right hand

== ENCOUNTER → 2019-01-15 | Outpatient (REF) ==
[2019-01-15 09:59] LABS: HEMATOCRIT 36.7 % (36.0-47.0); MEAN CORPUSCULAR HEMOGLOBIN 28.5 pg (27.0-33.0); MEAN CORPUSCULAR HGB CONC 32.7 g/dl (32.0-36.5); MEAN CORPUSCULAR VOLUME 87.2 fl (80.0-96.0); PLATELET COUNT, AUTOMATED 244 10^3/uL (150-450); RED BLOOD COUNT 4.21 10^6/uL (4.00-5.40); WHITE BLOOD COUNT 3.4 10^3/uL (4.0-10.0)
[2019-01-15 10:23] LABS: CALCIUM LEVEL 9.5 MG/DL (8.8-10.2); CREATININE FOR GFR 1.27 MG/DL (0.55-1.30); GLOMERULAR FILTRATION RATE 44.7 (>45); POTASSIUM SERUM 3.7 MEQ/L (3.5-5.1)
== END ==
PROVIDERS: ATTEND Internal Medicine
DX: E11.9 Type 2 diabetes mellitus without complications (principal)

== ENCOUNTER → 2019-01-22 | Outpatient (REF) | payer MEDICAID, MEDICARE ==
[2019-01-22 09:49] LABS: HEMATOCRIT 37.4 % (36.0-47.0); HEMOGLOBIN 12.1 g/dl (12.0-15.5); MEAN CORPUSCULAR HEMOGLOBIN 28.7 pg (27.0-33.0); MEAN CORPUSCULAR HGB CONC 32.4 g/dl (32.0-36.5); MEAN CORPUSCULAR VOLUME 88.6 fl (80.0-96.0); PLATELET COUNT, AUTOMATED 297 10^3/uL (150-450); RED BLOOD COUNT 4.22 10^6/uL (4.00-5.40); WHITE BLOOD COUNT 4.9 10^3/uL (4.0-10.0)
[2019-01-22 10:11] LABS: CALCIUM LEVEL 9.7 MG/DL (8.8-10.2); CREATININE FOR GFR 1.24 MG/DL (0.55-1.30); GLOMERULAR FILTRATION RATE 45.9 (>45)
== END ==
PROVIDERS: ATTEND Internal Medicine
DX: E11.22 Type 2 diabetes mellitus with diabetic chronic kidney disease (principal)

== ENCOUNTER → 2019-04-18 | Outpatient (REF) | payer MEDICARE, MEDICAID ==
[~2019-04-18] MED LIST changes: -FENO48TA13 PO; +FENO48TA7 PO; -MECL-68 PO; +MECL1TAB31 PO; -SIMV40TA2 PO; +SIMV40TA20 PO; -VALS1TAB49 PO; +VALS40TA9 PO
[2019-04-18 17:50] LABS: BASO # 0.1 10^3/uL (0.0-0.2); BASO % 0.5 % (0.0-1.0); EOS # 0.1 10^3/uL (0.0-0.5); EOS % 0.7 % (0.0-3.0); HEMATOCRIT 37.4 % (36.0-47.0); HEMOGLOBIN 12.6 g/dl (12.0-15.5); LYMPH # 2.3 10^3/uL (1.5-5.0); LYMPH % 24.7 % (24.0-44.0); MEAN CORPUSCULAR HEMOGLOBIN 29.3 pg (27.0-33.0); MEAN CORPUSCULAR HGB CONC 33.7 g/dl (32.0-36.5); MONO # 0.6 10^3/uL (0.0-0.8); MONO % 6.8 % (0.0-5.0); NEUTROPHILS # 6.3 10^3/uL (1.5-8.5); NEUTROPHILS % 66.9 % (36.0-66.0); PLATELET COUNT, AUTOMATED 286 10^3/uL (150-450); WHITE BLOOD COUNT 9.4 10^3/uL (4.0-10.0)
[2019-04-18 18:15] LABS: BILIRUBIN,TOTAL 0.6 MG/DL (0.2-1.0); CALCIUM LEVEL 9.5 MG/DL (8.8-10.2); CREATININE FOR GFR 1.22 MG/DL (0.55-1.30); GLOMERULAR FILTRATION RATE 46.8 (>45); POTASSIUM SERUM 3.4 MEQ/L (3.5-5.1); TOTAL PROTEIN 6.9 GM/DL (6.4-8.2)
== END ==
LOC: M LAB REF 16:27
PROVIDERS: ATTEND Physician Assistant
DX: R19.7 Diarrhea, unspecified (principal)

== ENCOUNTER → 2019-04-19 | Outpatient (REF) | payer MEDICARE, MEDICAID ==
[2019-04-19 11:09] LABS: APPEARANCE, URINE CLEAR (CLEAR); BACTERIA, URINE AUTO NEGATIVE (NEGATIVE); BILIRUBIN, URINE AUTO NEGATIVE (NEGATIVE); BLOOD, URINE BLOOD NEGATIVE (NEGATIVE); COLOR, URINE YELLOW (YELLOW); GLUCOSE, URINE (UA) AUTO 3+ mg/dL (NEGATIVE); KETONE, URINE AUTO NEGATIVE (NEGATIVE); LEUKOCYTE ESTERASE, URINE AUTO NEGATIVE (NEGATIVE); MUCUS, URINE SMALL (NEGATIVE); NITRITE, URINE AUTO NEGATIVE (NEGATIVE); PROTEIN, URINE AUTO NEGATIVE (NEGATIVE); RBC, URINE AUTO 1 /HPF (0-3); SPECIFIC GRAVITY URINE AUTO 1.011 (1.002-1.035); SQUAMOUS EPITHELIAL CELL UR AU 0 /HPF (0-6); UROBILINOGEN, URINE AUTO 0.2 mg/dL (0.0-2.0); WBC, URINE AUTO 1 /HPF (0-3)
== END ==
LOC: M LAB REF 10:45
PROVIDERS: ATTEND Physician Assistant
DX: R10.33 Periumbilical pain (principal); R19.7 Diarrhea, unspecified

== ENCOUNTER → 2019-04-19 | Outpatient (REF) | payer MEDICARE, MEDICAID | LOC: M LAB REF 17:14 | PROVIDERS: ATTEND Physician Assistant | DX: R10.33 Periumbilical pain (principal); R19.7 Diarrhea, unspecified ==

== ENCOUNTER 2019-05-07 13:21 | Inpatient (IN) | payer MEDICARE, MEDICAID ==
[~2019-05-07] VITALS: Ht 167.6 cm; Wt 122.7 kg
[~2019-05-07 13:21] MED LIST changes: +ACET650T15 PO; +CYMB60CA3 PO; +INSULANT SC; +POTA1TAB14 PO; +VICT18IN SC; +VITAD1000T PO
--- NOTE | 2019-05-07 13:55 | REP ---
Portable chest, single AP view the patient semi upright, 01:39 p.m.: Comparison is 05/05/2019. The lung xiao are clear. The cardiac size is normal. The samantha, mediastinum, and skeletal structures are unremarkable. Impression: Negative portable chest. There is no interval change. Electronically Signed by Harry Helm MD 05/07/2019 01:46 P
[2019-05-07] MEDS: IPRATROPIUM 0.5MG/ALBUTEROL 2.5MG INH SOL UD 3ML (DUONEB)(J7620) NEB SCH ×4 (13:56→18:09)
[2019-05-07 14:12] LABS: BASO % 0.2 % (0.0-1.0); EOS % 0.1 % (0.0-3.0); HEMATOCRIT 34.4 % (36.0-47.0); HEMOGLOBIN 11.7 g/dl (12.0-15.5); LYMPH # 2.2 10^3/uL (1.5-5.0); LYMPH % 20.3 % (24.0-44.0); MEAN CORPUSCULAR HEMOGLOBIN 29.3 pg (27.0-33.0); MONO # 0.4 10^3/uL (0.0-0.8); MONO % 3.4 % (0.0-5.0); NEUTROPHILS # 8.2 10^3/uL (1.5-8.5); NEUTROPHILS % 75.6 % (36.0-66.0); PLATELET COUNT, AUTOMATED 303 10^3/uL (150-450); WHITE BLOOD COUNT 10.9 10^3/uL (4.0-10.0)
[2019-05-07] MEDS ORDERED: PROAAER10 INH (14:19)
[2019-05-07] MEDS ORDERED: PRED10TA2 PO (14:24)
[2019-05-07] MEDS ORDERED: ACET1TAB37 PO (14:33)
[2019-05-07 14:53] LABS: BLOOD UREA NITROGEN 40 MG/DL (7-18); CALCIUM LEVEL 9.7 MG/DL (8.8-10.2); CARBON DIOXIDE LEVEL 26 MEQ/L (21-32); CHLORIDE LEVEL 97 MEQ/L (98-107); CK-MB VALUE MASS 6.2 NG/ML (<3.6); CPK CREATINE PHOSPHOKINASE 450 U/L (26-192); GLOMERULAR FILTRATION RATE 31.9 (>45); GLUCOSE, FASTING 436 MG/DL (70-100); MB/CK RELATIVE INDEX 1.38 (< OR =4); NT-PRO BNP 84 PG/ML (<125); POTASSIUM SERUM 4.1 MEQ/L (3.5-5.1); SODIUM LEVEL 131 MEQ/L (136-145); TROPONIN I < 0.02 NG/ML (< 0.10)
[2019-05-07 14:55] LABS: INFLUENZA A AMPLIFICATION NEGATIVE (NEGATIVE); INFLUENZA B AMPLIFICATION NEGATIVE (NEGATIVE)
[2019-05-07] MEDS ORDERED: HumuLIN N INSULIN (NovoLIN N) PER UNIT SC STA (15:55)
[2019-05-07] MEDS ORDERED: HumaLOG INSULIN (NovoLOG) PER UNIT SC STA ×2 (15:56→17:26)
[2019-05-07] MEDS ORDERED: ALBUTEROL SULFATE 2.5 MG/0.5 ML INH NEB SOLN NEB PRN (16:15)
[2019-05-07] MEDS ORDERED: MIRALAX *UNIT DOSE* 17GM PACKET PO PRN (16:15)
[2019-05-07] MEDS ORDERED: traMADol 50 MG TAB PO PRN (16:15)
[2019-05-07] MEDS: methylPREDNISolone INJ 125 MG/2 ML VIAL (J2930) IV SCH (16:17)
[2019-05-07] MEDS ORDERED: DEXTROSE 50% 50 ML SYRINGE IV PRN (16:30)
[2019-05-07] MEDS ORDERED: GLUCAGON FOR INJ 1 MG VIAL (J1610) SC PRN (16:30)
[2019-05-07] MEDS ORDERED: GLUCOSE 4 GM CHEW TABLET PO PRN (16:30)
[2019-05-07 17:03] LABS: ABG BASE EXCESS -2.3 (-2.0-2.0); ABG HCO3 21.5 MEQ/L (22.0-26.0); ABG O2 SATURATION 93.4 % (95.0-99.0); ABG PARTIAL PRESSURE CO2 33.4 mmHg (35.0-45.0); ABG PARTIAL PRESSURE O2 69.2 mmHg (75.0-100.0); ABG STANDARD HCO3 22.5 MEQ/L (22.0-26.0); ABG TOTAL CO2 22.5 MEQ/L (23.0-31.0); ABG pH (ARTERIAL) 7.426 UNITS (7.350-7.450)
[2019-05-07] MEDS: HumaLOG INSULIN (NovoLOG) PER UNIT SC SCH ×2 (17:30→21:53)
--- NOTE | 2019-05-07 17:31 | REPVR ---
PROCEDURE INFORMATION: Exam: CT Head Without Contrast Exam date and time: 05/07/2019 5:03 PM Age: 68 years old Clinical indication: Syncope and collapse; Additional info: Syncope, hit head TECHNIQUE: Imaging protocol: Computed tomography of the head without contrast. Radiation optimization: All CT scans at this facility use at least one of these dose optimization techniques: automated exposure control; mA and/or kV adjustment per patient size (includes targeted exams where dose is matched to clinical indication); or iterative reconstruction. COMPARISON: CT Head without contrast 10/03/2016 12:12 PM FINDINGS: Brain: There are scattered foci of white matter hypodensity, likely representing small vessel ischemic disease in a patient this age. The acuity of the white matter disease is indeterminate. The white-collins differentiation is preserved demonstrating no acute territorial type infarct. No acute intracranial hemorrhage is visualized. Midline shift: There is no midline shift. Ventricles: There is mild prominence of the ventricles and sulci, compatible with atrophy. Bones/joints: The calvarium demonstrates no evidence for a depressed fracture. Sinuses: Visualized sinuses are unremarkable. No fluid levels. Mastoid air cells: No mastoid effusion. Soft tissues: Unremarkable. Vasculature: Intracranial atherosclerosis visualized. IMPRESSION: 1. No acute intracranial hemorrhage or acute territorial type infarct. 2. There are scattered foci of white matter hypodensity, likely representing small vessel ischemic disease in a patient this age. 3. Mild stable atrophy. Electronically signed by: Jeremy Steven On 05/07/2019 17:30:43 PM
[2019-05-07 17:44] LABS: HEMOGLOBIN A1c 10.1 %
[2019-05-07 18:00] VITALS: BP 141/64
[2019-05-07] MEDS ORDERED: HumuLIN R (REGULAR) INSULIN (NovoLIN R) **100U/ML** PER UNIT IV STA (18:36)
--- NOTE | 2019-05-07 18:40 | HPEPDOC ---
[facility] Medical History & Physical Date of Admission May 07, 2019 Date of Service: May 07, 2019 History and Physical CHIEF COMPLAINT: dizziness and shortness of breath HISTORY OF PRESENT ILLNESS: This is a 68 year old female who presents to the ED after an episode of dizziness and lightheadedness that caused her to fall at home ([facility]) this afternoon. She did hit the R side of her denominational on the fall but reports no loss of consciousness, changes in vision, hearing loss or headache. Patient also reports she has had shortness of breath for the last 2 days, she went to the ER for this shortness of breath on Monday and was discharged with steroids. She has not had an improvement in the shortness of breath since then. In the ED, patient is afebrile, respirations are 18, pulse ox is around 95-96%, pulse is 84, and BP is 122/58. Blood glucose on arrival was 436, patient was given 10 units of short acting insulin and repeat blood glucose was 477, she was then given 15 units of short acting insulin. Patient says she is short of breath, it feels like an elephant is on my chest, feels weak and has a product chris cough. She denies dizziness, nausea, vomiting, headache, vision changes, constipation and diarrhea. Initial Chest xray is negative, WBC is 10.9, Head CT was negative for a bleed. Patient is being admitted to the Med/Surg floor for presycope workup and respiratory treatment with steroids and breathing treatments. PAST MEDICAL HISTORY: 1. HTN 2. DM Type II- insulin dependent 3. Dyslipidemia 4. BERYL on CPAP 5. CKD stage III 6. 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 depression 8. anxiety 9. morbid obesity HOME MEDICATIONS: Please see below. ALLERGIES: Please see below PAST SURGICAL HISTORY: 1. Fatty tumor removal- R arm 2. 2 back surgeries- 4th and 5th disc removed 3. Partial Hysterectomy 4. 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 Former smoker, unknown history. Denies Alcohol and Illicit Drug use. FAMILY HISTORY: Father had ESRD and colon cancer. Mother has cirrhosis. REVIEW OF SYSTEMS: Constitutional: Denies: Chills, Fever Eyes: Denies: vision changes ENT: Denies: Headaches, hearing loss Skin: Denies: Rash Pulmonary: Reports: Dyspnea Cardiovascular: Denies: Chest Pain Palpitations Gastrointestinal: Denies: Vomiting, Nausea Musculoskeletal: Reports: Bilateral calf pain (chronic) Neurological: Reports: Weakness Psych: Reports: Mood Normal PHYSICAL EXAMINATION: VITAL SIGNS: Please See Below. GENERAL: Pleasant 68 year old female sitting in bed, with conversational dyspnea no acute respiratory distress. HEENT: Atraumatic, normocephalic, moist mucus membranes. CARDIOVASCULAR: Normal S1 and S2 regular rate and rhythm with a 2/6 systolic murmur in LUSB. RESPIRATORY: Bibasilar crackles at base bilaterally. ABDOMINAL: Bowel sounds present in all 4 quadrants, abdomen soft and nontender. EXTREMITIES: No edema, tender bilaterally in calves. NEUROLOGICAL: AOx3, spontaneously moves all 4 extremities, no gross focal deficits. PSYCHOLOGICAL: Appropriate. LABORATORY DATA: See below. MICROBIOLOGY: Please see below. IMAGING: Chest Xray impression: negative portable chest xray Head CT impression: 1. No acute intracranial hemorrhage or acute territorial type infarct. 2. There are scattered foci of white matter hypodensity, likely representing small vessel ischemic disease in a patient this age. 3. Mild stable atrophy ASSESSMENT & PLAN: This is a 68 year old female who presented for presyncope with a fall where she hit her head as well as dyspnea for [address] was negative, vitals are stable and chest xray was negative. Patient is being admitted to the Med/Surg floor for presyncope workup and treatment with steroids for dyspnea. PROBLEMS: 1. Dyspnea -presented to the ED 2 days ago for dyspnea, discharged on steroids -chest xray was negative -pulse ox has remained around 95% -Albuterol nebs and Solumederol 60 mg IV Q12H -respiratory panel and procalcitonin pending. -echocardiogram pending -If no improvement on steroids, will consider a Chest CT without contrast. 2. Presyncope -EKG is negative -initial cardiac markers negative, repeat pending -echocardiogram pending. -orthostats pending. -telemetry monitoring -hold parameters on BP meds 3. Fall -did hit head, Head CT was negative for intracranial bleed -Fall Risk Precautions -Assisted Ambulation -PT/OT 4. Hyperglycemia in setting insulin-dependent DM Type II -glucose on admission was 436 -A1c is 10.1, which is similar to her last A1c in December 2018 -sliding scale insulin -fingersticks Q6H -diabetic diet 5. Elevated Creatinine- baseline CKD stage III -baseline creatinine is around 1.3 -creatinine is 1.70 -will reassess after AM labs whether to hold her chlorthiadone and valsartan. 6. Hx of PE and DVT -on Eliquis chronically -DVT is in L leg 7. BERYL on CPAP -use CPAP at night 8. HTN -continue home medications DVT PROPHYLAXIS: Eliquis CODE STATUS: FULL CODE -spoke in depth with patient and daughter who is her health care proxy and they would like CPR and Intubation. DISPOSITION: Pending respiratory panel, PT/OT, clinical improvement in her breathing. Possible discharge tomorrow or day after. Attending: Patient seen and examined independently. Agree with resident's note. Vital Signs Vital Signs Date Time Temp Pulse Resp B/P (MAP) Pulse Ox O2 Delivery O2 Flow Rate FiO2 05/07/19 17:42 98.1 85 18 122/58 (79) 95 Room Air Laboratory Data Labs 24H Laboratory Tests 2 05/07/19 00:00: 05/07/19 13:31: Immature Granulocyte % (Auto) 0.4, Neutrophils (%) (Auto) 75.6H, Lymphocytes (%) (Auto) 20.3L, Monocytes (%) (Auto) 3.4, Eosinophils (%) (Auto) 0.1, Basophils (%) (Auto) 0.2, Neutrophils # (Auto) 8.2, Lymphocytes # (Auto) 2.2, Monocytes # (Auto) 0.4, Eosinophils # (Auto) 0.0, Basophils # (Auto) 0.0, Nucleated Red Blood Cells % (auto) 0.0, Anion Gap 8, Glomerular Filtration Rate 31.9L, Estimated Mean Plasma Glucose 243H, Hemoglobin A1c 10.1, Calcium Level 9.7, Magnesium Level 2.0, Total Creatine Kinase 450#H, Creatine Kinase MB 6.2H, Creatine Kinase MB Relative Index 1.38, Troponin I < 0.02, CX-Xzo-A-Type Natriuretic Peptide 84 05/07/19 13:42: Influenza Type A (RT-PCR) NEGATIVE, Influenza Type B (RT-PCR) NEGATIVE 05/07/19 16:51: Blood Gas Bicarbonate Standard 22.5, Arterial Blood pH 7.426, Arterial Blood Partial Pressure CO2 33.4L, Arterial Blood Partial Pressure O2 69.2L, Arterial Blood Total CO2 22.5L, Arterial Blood HCO3 21.5L, Arterial Blood Base Excess - 2.3L, Arterial Blood Oxygen Saturation 93.4L 05/07/19 17:25: Bedside Glucose (Misc Panel) 471H 05/07/19 18:22: Bedside Glucose (Misc Panel) 417H CBC/BMP Laboratory Tests 05/07/19 13:31 Home Medications Scheduled Acetaminophen (Acetaminophen ER) 650 Mg Tablet.er, 650 MG PO TID Amlodipine Besylate (Amlodipine Besylate) 5 Mg Tablet, 5 MG PO DAILY Apixaban (Eliquis) 5 Mg Tablet, 5 MG PO BID Chlorthalidone (Chlorthalidone) 50 Mg Tablet, 50 MG PO DAILY Cholecalciferol (Vitamin D3) (Vitamin D3) 1,000 Unit Tablet, 2,000 UNITS PO DAILY Duloxetine Hcl (Cymbalta) 60 Mg Capsule.dr, 60 MG PO BID Fenofibrate (Fenofibrate) 160 Mg Tab, 160 MG PO DAILY Fluticasone Propionate (Fluticasone Propionate) 50 Mcg/Act Spr, 2 SPRAY NARES DAILY Insulin Glargine (Lantus) 100 Unit/1 Ml Vial, 50 UNITS SC BID Insulin Human Lispro (Humalog) 100 Unit/1 Ml Vial, 10 UNITS SC QPM 4 pm Liraglutide (Victoza 2-Anthony) 0.6 Mg/0.1 Ml Pen.injctr, 1.2 MG SC QPM 1600 Multivitamin (Multivitamins) 1 Each Capsule, 1 CAP PO DAILY Omeprazole (Omeprazole) 40 Mg Capsule.dr, 40 MG PO DAILY Potassium Chloride (Potassium Chloride) 20 Meq Tablet.er, 20 MEQ PO DAILY Pravastatin Sodium (Pravastatin Sodium) 40 Mg Tab, 40 MG PO QHS Pregabalin (Lyrica) 75 Mg Capsule, 75 MG PO BID Valsartan (Valsartan) 40 Mg Tablet, 40 MG PO QHS Scheduled PRN Acetaminophen (Acetaminophen ER) 650 Mg Tablet.er, 650 MG PO TID PRN for PAIN Albuterol Sulfate (Proair Hfa) 8.5 Gm Hfa.aer.ad, 2 PUFF INH Q4H PRN for SHORTNESS OF BREATH Milk Of Magnesia (Milk of Magnesia) 2,400 Mg/10 Ml Oral.susp, 30 ML PO DAILY PRN for CONSTIPATION Polyethylene Glycol 3350 (Miralax) 119 Gm Powder, 17 GM PO DAILY PRN for CONSTIPATION MIXED IN 4-6 OZ OF WATER Tramadol HCl (Tramadol HCl) 50 Mg Tablet, 50 MG PO DAILY PRN for PAIN Allergies Coded Allergies: TAPE (Verified Allergy, Intermediate, NYLON TAPE CAUSES HIVES PER 09/09/03, 05/02/19) latex (Verified Allergy, Intermediate, RASH, 05/02/19) ibuprofen (Verified Adverse Reaction, Intermediate, BLEEDING, CONSTIPATION, 05/02/19) metoprolol (Verified Adverse Reaction, Intermediate, LOWERS BLOOD PRESSURE TOO MUCH, 05/02/19) LOWERS BLOOD PRESSURE TOO MUCH morphine (Verified Adverse Reaction, Intermediate, ITCHING, 05/02/19) Quinolones (Verified Adverse Reaction, Mild, DIZZINESS, 05/02/19) A-FIB/CHADSVASC A-FIB History Current/History of A-Fib/PAF?: No Current PO Anticoag Therapy: Yes MI TOBAR OMS-3 May 07, 2019 18:39 MEGAN LLOYD MD May 13, 2019 23:26
[2019-05-07 20:00] LABS: CK-MB VALUE MASS 4.9 NG/ML (<3.6); CPK CREATINE PHOSPHOKINASE 334 U/L (26-192); MB/CK RELATIVE INDEX 1.47 (< OR =4); TROPONIN I < 0.02 NG/ML (< 0.10)
[2019-05-07] MEDS: APIXABAN 5 MG TAB (ELIQUIS) PO SCH (21:54)
[2019-05-07] MEDS: DULoxetine 30 MG CAP (CYMBALTA) PO SCH (21:54)
[2019-05-07] MEDS: ACETAMINOPHEN 650MG ER TAB (TYLENOL ARTHRITIS) PO SCH (21:54)
[2019-05-07] MEDS: PRAVASTATIN 20 MG TAB PO SCH (21:54)
[2019-05-07] MEDS: LEVEMIR (INSULIN DETEMIR) 1 UNITS/0.01ML SC SCH (21:54)
[2019-05-07] MEDS: PREGABALIN 75 MG CAP(LYRICA) PO SCH (21:55)
[2019-05-07] MEDS: VALSARTAN 40MG TABLET (DIOVAN) PO SCH (21:55)
[2019-05-07 22:00] VITALS: BP 128/61
[2019-05-07 23:48] VITALS: BP_SYST 129; BP_SYST 138; BP_SYST 174; BP_DIAS 68; BP_DIAS 71; BP_DIAS 78
[2019-05-08] MEDS ORDERED: HumaLOG INSULIN (NovoLOG) PER UNIT SC ONE (00:30)
[2019-05-08 01:45] LABS: CK-MB VALUE MASS 4.6 NG/ML (<3.6); CPK CREATINE PHOSPHOKINASE 275 U/L (26-192); MB/CK RELATIVE INDEX 1.67 (< OR =4); TROPONIN I < 0.02 NG/ML (< 0.10)
[2019-05-08] MEDS: IPRATROPIUM 0.5MG/ALBUTEROL 2.5MG INH SOL UD 3ML (DUONEB)(J7620) NEB SCH ×4 (02:00→19:35)
[2019-05-08] MEDS: methylPREDNISolone INJ 125 MG/2 ML VIAL (J2930) IV SCH (03:58)
[2019-05-08 06:00] VITALS: BP 143/81
[2019-05-08 06:23] LABS: HEMATOCRIT 35.3 % (36.0-47.0); HEMOGLOBIN 11.9 g/dl (12.0-15.5); MEAN CORPUSCULAR HGB CONC 33.7 g/dl (32.0-36.5); MEAN CORPUSCULAR VOLUME 86.1 fl (80.0-96.0); PLATELET COUNT, AUTOMATED 293 10^3/uL (150-450); WHITE BLOOD COUNT 10.7 10^3/uL (4.0-10.0)
[2019-05-08 06:38] LABS: CALCIUM LEVEL 9.6 MG/DL (8.8-10.2); CREATININE FOR GFR 1.44 MG/DL (0.55-1.30); GLOMERULAR FILTRATION RATE 38.7 (>45); POTASSIUM SERUM 4.1 MEQ/L (3.5-5.1)
--- NOTE | 2019-05-08 07:58 | ECGEPIP ---
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
[2019-05-08] MEDS: FLUTICASONE PROP 0.05% NASAL SPRAY 16 GM (FLONASE) NARES SCH (08:57)
[2019-05-08] MEDS: amLODIPine 5 MG TAB PO SCH (08:57)
[2019-05-08] MEDS: FENOFIBRATE 145 MG TAB (TRICOR) PO SCH (08:57)
[2019-05-08] MEDS: APIXABAN 5 MG TAB (ELIQUIS) PO SCH ×2 (08:57→20:46)
[2019-05-08] MEDS: VITAMIN D 1,000 INTERNATIONAL UNITS TABLET PO SCH (08:57)
[2019-05-08] MEDS: DULoxetine 30 MG CAP (CYMBALTA) PO SCH ×2 (08:58→20:46)
[2019-05-08] MEDS: PANTOPRAZOLE 40MG TAB (PROTONIX) PO SCH (08:58)
[2019-05-08] MEDS: POTASSIUM CHLORIDE 10 MEQ SR TABLET PO SCH (08:58)
[2019-05-08] MEDS: CHLORTHALIDONE 25 MG TAB PO SCH (08:58)
[2019-05-08] MEDS: PREGABALIN 75 MG CAP(LYRICA) PO SCH ×2 (08:58→20:46)
[2019-05-08] MEDS: HumaLOG INSULIN (NovoLOG) PER UNIT SC SCH ×4 (08:59→20:47)
[2019-05-08] MEDS: LEVEMIR (INSULIN DETEMIR) 1 UNITS/0.01ML SC SCH ×2 (08:59→20:47)
[2019-05-08] MEDS: ACETAMINOPHEN 650MG ER TAB (TYLENOL ARTHRITIS) PO SCH ×3 (09:00→20:48)
[2019-05-08 11:15] VITALS: BP 132/64
--- NOTE | 2019-05-08 15:14 | IPNPDOC ---
Subjective Date Seen The patient was seen on 05/08/19. Subjective Chief Complaint/HPI Mare feels better today, her daughter is at the bedside. Objective Physical Examination General Exam: Positive: Alert, No Acute Distress Eye Exam: Positive: PERRLA ENT Exam: Positive: Atraumatic Heart Exam: Positive: Rate Normal Abdomen Exam: Positive: Normal bowel sounds Extremity Exam: Negative: Clubbing, Cyanosis Skin Exam: Negative: Rash Psych Exam: Positive: Mental status NL, Mood NL; Negative: Anxiety Assessment /Plan Assessment # Dyspnea - normal PFTs in 2018, and claims to have had a normal stress test in nov [address] Rawls - stop solumedrol she does not have COPD flare - await echo - check d-dimer # Presyncope - resolved # Fall -did hit head, Head CT was negative for intracranial bleed -Fall Risk Precautions -Assisted Ambulation -PT/OT # IDDM2 - stopping solumedrol should help glucose control # HOMA with CKD stage III -improved # Hx of PE and DVT -on Eliquis chronically # BERYL on CPAP -use CPAP at night # HTN -continue home medications DISPOSITION: home in am Plan/VTE VTE Prophylaxis Ordered?: Yes (eliquis) VS, I&O, 24H, Fishbone Vital Signs/I&O Vital Signs Date Time Temp Pulse Resp B/P (MAP) Pulse Ox O2 Delivery O2 Flow Rate FiO2 05/08/19 11:15 99.0 73 20 132/64 (86) 94 Room Air I&O- Last 24 Hours up to 6 AM 05/08/19 06:00 Intake Total 900 ml Output Total 1500 ml Balance -600 ml Laboratory Data 24H LABS Laboratory Tests 2 05/07/19 16:51: Blood Gas Bicarbonate Standard 22.5, Arterial Blood pH 7.426, Arterial Blood Partial Pressure CO2 33.4L, Arterial Blood Partial Pressure O2 69.2L, Arterial Blood Total CO2 22.5L, Arterial Blood HCO3 21.5L, Arterial Blood Base Excess - 2.3L, Arterial Blood Oxygen Saturation 93.4L 05/07/19 17:25: Bedside Glucose (Misc Panel) 471H 05/07/19 18:22: Bedside Glucose (Misc Panel) 417H 05/07/19 19:12: Total Creatine Kinase 334H, Creatine Kinase MB 4.9H, Creatine Kinase MB Relative Index 1.47, Troponin I < 0.02 05/07/19 19:54: Bedside Glucose (Misc Panel) 380H 05/07/19 21:24: Bedside Glucose (Misc Panel) 505*H 05/07/19 23:54: Bedside Glucose (Misc Panel) 466H 05/08/19 01:05: Total Creatine Kinase 275H, Creatine Kinase MB 4.6H, Creatine Kinase MB Relative Index 1.67, Troponin I < 0.02 05/08/19 02:11: Bedside Glucose (Misc Panel) 411H 05/08/19 06:07: Nucleated Red Blood Cells % (auto) 0.0, Anion Gap 7L, Glomerular Filtration Rate 38.7L, Calcium Level 9.6 05/08/19 11:49: Bedside Glucose (Misc Panel) 467H CBC/BMP Laboratory Tests 05/08/19 06:07 Microbiology Microbiology 05/08/19 Gram Stain, Received Pending 05/08/19 Sputum Culture, Received Pending 05/07/19 Respiratory Virus Panel (PCR) (HUSAM) - Final, Complete HAILEE YA MD May 08, 2019 15:14
[2019-05-08] MEDS ORDERED: HumuLIN (NovoLIN)70/30 INSULIN INJ PER UNIT SC ONE (17:15)
[2019-05-08] MEDS: PRAVASTATIN 20 MG TAB PO SCH (20:46)
[2019-05-08] MEDS: VALSARTAN 40MG TABLET (DIOVAN) PO SCH (20:48)
[2019-05-08 22:00] VITALS: BP 116/44
[2019-05-09] MEDS: IPRATROPIUM 0.5MG/ALBUTEROL 2.5MG INH SOL UD 3ML (DUONEB)(J7620) NEB SCH ×2 (01:41→07:18)
[2019-05-09 06:00] VITALS: BP 132/66
[2019-05-09 06:18] LABS: HEMATOCRIT 33.2 % (36.0-47.0); HEMOGLOBIN 11.2 g/dl (12.0-15.5); MEAN CORPUSCULAR HEMOGLOBIN 29.4 pg (27.0-33.0); MEAN CORPUSCULAR HGB CONC 33.7 g/dl (32.0-36.5); MEAN CORPUSCULAR VOLUME 87.1 fl (80.0-96.0); PLATELET COUNT, AUTOMATED 262 10^3/uL (150-450); RED BLOOD COUNT 3.81 10^6/uL (4.00-5.40); WHITE BLOOD COUNT 9.8 10^3/uL (4.0-10.0)
--- NOTE | 2019-05-09 06:36 | ECHO ---
DATE OF SERVICE: 05/08/2019 AGE: 68 REFERRING PHYSICIAN: Dr. Miriam Noble PATIENT LOCATION: Room 4207 REASON FOR THE ECHOCARDIOGRAM: Shortness of breath. 2D MEASUREMENTS: IVS: 1.1 cm LV: 5.1 cm LVPW: 1.1 cm LA: 3.6 cm Aorta: 3.5 cm DOPPLER MEASUREMENTS: Peak velocity across the aortic valve: 1.5 m/s Peak velocity across the LVOT: 1.3 m/s Mitral E: 0.87 Mitral A: 0.1 with a ratio of 0.8 2D COMMENTS: 1. Normal left ventricular size, wall thickness, and normal global left ventricular systolic function. The estimated left ventricular systolic ejection fraction is 60-65%. 2. Normal left atrium. Normal right atrium and right ventricle. 3. The atrial septum appeared to be normal without evidence of defect or shunt. 4. Normal aortic root. 5. No pericardial effusion seen. 6. Mildly calcified aortic valve with normal leaflet excursion. No mitral valve, tricuspid valve, or pulmonic valve. The proximal pulmonary artery branches were not well visualized. 7. The inferior vena cava was not well visualized. DOPPLER: Only trace mitral regurgitation detected. Abnormal relaxation pattern was noted across the mitral leaflets as well as the mitral valve annulus consistent with features of grade 1 left ventricular diastolic dysfunction. IMPRESSION: 1. Normal global left ventricular systolic function. There is some features of left ventricular diastolic dysfunction manifested by abnormal relaxation. 2. Aortic valve sclerosis with trivial aortic stenosis but no aortic regurgitation. 3. Trace mitral regurgitation. 4. This study was technically limited due to poor acoustic window. MTDD
[2019-05-09 06:43] LABS: CALCIUM LEVEL 9.5 MG/DL (8.8-10.2); CREATININE FOR GFR 1.45 MG/DL (0.55-1.30); GLOMERULAR FILTRATION RATE 38.3 (>45); POTASSIUM SERUM 3.4 MEQ/L (3.5-5.1)
[2019-05-09] MEDS ORDERED: POTASSIUM CHLORIDE 10 MEQ SR TABLET PO ONE (07:45)
[2019-05-09] MEDS: FLUTICASONE PROP 0.05% NASAL SPRAY 16 GM (FLONASE) NARES SCH (08:09)
[2019-05-09] MEDS: PANTOPRAZOLE 40MG TAB (PROTONIX) PO SCH (08:10)
[2019-05-09] MEDS: FENOFIBRATE 145 MG TAB (TRICOR) PO SCH (08:10)
[2019-05-09] MEDS: POTASSIUM CHLORIDE 10 MEQ SR TABLET PO SCH (08:10)
[2019-05-09] MEDS: VITAMIN D 1,000 INTERNATIONAL UNITS TABLET PO SCH (08:11)
[2019-05-09] MEDS: ACETAMINOPHEN 650MG ER TAB (TYLENOL ARTHRITIS) PO SCH (08:11)
[2019-05-09 08:12] VITALS: BP 119/67
[2019-05-09] MEDS: DULoxetine 30 MG CAP (CYMBALTA) PO SCH (08:12)
[2019-05-09] MEDS: amLODIPine 5 MG TAB PO SCH (08:12)
[2019-05-09] MEDS: PREGABALIN 75 MG CAP(LYRICA) PO SCH (08:12)
[2019-05-09] MEDS: CHLORTHALIDONE 25 MG TAB PO SCH (08:12)
[2019-05-09] MEDS: APIXABAN 5 MG TAB (ELIQUIS) PO SCH (08:12)
[2019-05-09] MEDS ORDERED: traMADol 50 MG TAB PO PRN (09:00)
[2019-05-09] MEDS: HumaLOG INSULIN (NovoLOG) PER UNIT SC SCH (09:40)
[2019-05-09] MEDS: LEVEMIR (INSULIN DETEMIR) 1 UNITS/0.01ML SC SCH (09:40)
--- NOTE | 2019-05-09 10:00 | REP ---
CT of the abdomen pelvis without IV and oral contrast for left lower quadrant pain and question of diverticulitis. Comparison is 12/26/2018. The visualized lung xiao are unremarkable. The unenhanced hepatic parenchyma is hypodense compatible with hepato steatosis. This is unchanged. There are no hepatic masses. The gallbladder, pancreas and spleen are normal size unremarkable. The adrenals are unremarkable. The kidneys are unremarkable. The abdominal aorta is unremarkable. There is no periaortic adenopathy or mass. The there is no bowel distension or obstruction. Mesentery is unremarkable. There are occasional sigmoid colon diverticula. There is no pericolonic inflammation or abscess to suggest diverticulitis. Pelvis: The appendix is unremarkable. The bladder is unremarkable. There is a hysterectomy. Vaginal cuff and adnexa are unremarkable. There is no ascites or adenopathy. Impression: There are sigmoid colon diverticula, however there is no pericolonic inflammation or abscess to suggest diverticulitis. There is no pneumoperitoneum or ascites. Hepato steatosis. Hysterectomy. No ascites or adenopathy. Multilevel lumbar spine degenerative disc disease. Otherwise, negative CT of the abdomen and pelvis. Electronically Signed by Harry Helm MD 05/09/2019 09:50 A
--- NOTE | 2019-05-09 10:54 | IPNPDOC ---
Subjective Date Seen The patient was seen on 05/09/19. Subjective Chief Complaint/HPI c/o abd pain this morning. No diarrhea. Blood sugars better controlled. Objective Physical Examination General Exam: Positive: Alert, No Acute Distress Eye Exam: Positive: PERRLA ENT Exam: Positive: Atraumatic Heart Exam: Positive: Rate Normal Abdomen Exam: Positive: Normal bowel sounds Extremity Exam: Negative: Clubbing, Cyanosis Skin Exam: Negative: Rash Psych Exam: Positive: Mental status NL, Mood NL; Negative: Anxiety Assessment /Plan Assessment # Dyspnea - normal PFTs in 2018, and claims to have had a normal stress test in nov [address] Rawls - stop solumedrol she does not have COPD flare - echo normal - d-dimer normal # Presyncope - resolved # Fall -did hit head, Head CT was negative for intracranial bleed -Fall Risk Precautions -Assisted Ambulation -PT/OT # IDDM2 - stopping solumedrol should help glucose control # HOMA with CKD stage III -improved # Hx of PE and DVT -on Eliquis chronically # BERYL on CPAP -use CPAP at night # HTN -continue home medications DISPOSITION: back to SNF today Plan/VTE VTE Prophylaxis Ordered?: Yes (eliquis) VS, I&O, 24H, Fishbone Vital Signs/I&O Vital Signs Date Time Temp Pulse Resp B/P (MAP) Pulse Ox O2 Delivery O2 Flow Rate FiO2 05/09/19 08:12 66 119/67 05/09/19 06:00 97.3 17 96 NIPPV (BIPAP/CPAP) I&O- Last 24 Hours up to 6 AM 05/09/19 06:00 Intake Total 1657 ml Output Total 2700 ml Balance -1043 ml Laboratory Data 24H LABS Laboratory Tests 2 05/08/19 11:49: Bedside Glucose (Misc Panel) 467H 05/08/19 16:56: Bedside Glucose (Misc Panel) 530*H 05/08/19 20:29: Bedside Glucose (Misc Panel) 479H 05/09/19 06:02: Nucleated Red Blood Cells % (auto) 0.0, D-Dimer, Quantitative 393.35, Anion Gap 4L, Glomerular Filtration Rate 38.3L, Calcium Level 9.5 CBC/BMP Laboratory Tests 05/09/19 06:02 Microbiology Microbiology 05/08/19 Gram Stain - Final, Resulted 05/08/19 Sputum Culture, Resulted Pending 05/07/19 Respiratory Virus Panel (PCR) (HUSAM) - Final, Complete HAILEE YA MD May 09, 2019 10:43
--- NOTE | 2019-05-14 14:59 | DSES ---
DATE OF ADMISSION: 05/07/2019 DATE OF DISCHARGE: 05/09/2019 DISCHARGE DIAGNOSES: 1. Dyspnea unspecified. 2. Presyncope. 3. Status post fall from ground level. 4. Insulin-dependent diabetes mellitus, type 2, with hyperglycemia secondary to steroid use. 5. Acute kidney injury with chronic kidney disease (CKD) stage III. 6. History of pulmonary embolism (PE) on chronic anticoagulation with Eliquis. 7. History of obstructive sleep apnea. PROCEDURES PERFORMED DURING HOSPITALIZATION: None. CONSULTANTS: None. DISPOSITION: The patient is discharged back to [facility]. Labs and diagnostic studies to be done on an outpatient and repeat pulmonary function tests. DISCHARGE INSTRUCTIONS: The patient is instructed to followup with her primary care physician within 1 week upon discharge. She is to discontinue taking steroids. CONDITION ON DISCHARGE: Improved. RELEVANT LABS: White count is 9.8, hemoglobin 11.2, hematocrit is 33.2. Glucose 260. Sodium 135, potassium 4.1, chloride 100, BUN is 40 creatinine is 1.45. Serum troponin markers were negative. Hemoglobin A1c was 10.1. Influenza A and B were negative. Relevant D-dimer was normal at 393. Sputum cultures only grew normal respiratory zarina. Respiratory viral panel was negative. RELEVANT IMAGING STUDIES: Chest x-ray one view showed no acute intrathoracic disease. CT scan of the head without contrast showed no intracranial acute event. CT of the abdomen and pelvis without IV contrast showed no acute pathology. Please reference report for findings and chronic conditions. DISCHARGE MEDICATIONS: - prednisone 10 mg (the taper has been discontinued) Medications to continue at home: - valsartan 40 mg at bedtime - tramadol 50 mg daily as needed for pain - Lyrica 75 mg twice a day - pravastatin 40 mg at bedtime - potassium chloride 20 mEq by mouth daily - MiraLAX 17 grams daily - omeprazole 40 mg daily - multivitamin 1 capsule daily - Victoza 1.2 mg subcu in the evening - lispro 10 units subcu in the evening - Lantus 50 units subcu twice a day - Flonase 2 sprays to the nares daily - fenofibrate 160 mg by mouth daily - duloxetine 60 mg twice a day - cholecalciferol 2000 units daily - chlorthalidone 50 mg by mouth daily - Eliquis 5 mg twice a day - Norvasc 5 mg by mouth daily - albuterol inhaler - acetaminophen extended release 650 mg by mouth three times a day - acetaminophen 650 mg by mouth three times a day as needed for as needed HOSPITAL COURSE: Ms. Paz is a 68-year-old woman who had presented to the hospital following an episode of lightheadedness and dizziness which caused her to lose consciousness, fall, striking her head upon her right cheondoism. She was transported from [facility] where she lives to the [facility] emergency department (ED) where she underwent a CT scan of the head which was negative for any acute intracranial event. Chest x-ray was also found to be negative as she had been complaining of some chest discomfort. In addition, she complained of left lower quadrant abdominal pain. CT of the abdomen and pelvis was done, which is unremarkable. She was admitted to the hospitalist service for evaluation of presyncope. An echocardiogram obtained with this hospitalization showed no significant findings, only some stage 1 diastolic dysfunction with no evidence of pericardial effusion or significant valvular heart disease. Serial troponin markers were checked. Her blood sugars were significantly elevated upon admission of 136 from the prednisone that she had been taking which had been prescribed as an outpatient. This was discontinued. Her sugars were controlled with sliding scale as well as her insulin home regimen with improvement in her glucose levels. I did review the patient's outpatient pulmonary function tests and methacholine tests from several years back which showed no evidence of chronic obstructive pulmonary disease (COPD) or asthma. At this point in time, from my standpoint, the patient if she continues to experience breathlessness it should be evaluated by a feather boner with a stress test, and also should consider repeated pulmonary function tests as well as considering referral to a line tender for consideration of neuromuscular conditions that could be causing her breathlessness. The patient was discharged back [facility] in stable condition. Total of 30 minutes was spent completing all discharge paperwork.
== END 2019-05-09 12:37 | DRG 204 ==
LOC: EDBD 13:21 → M ED 13:21 → M ED INP 17:04 → ENRESERV 17:14 → M MSPAV 17:50
PROVIDERS: ADMIT Internal Medicine; ATTEND Internal Medicine
DX: R06.00 Dyspnea, unspecified (principal); N17.9 Acute kidney failure, unspecified; Z68.41 Body mass index [BMI] 40.0-44.9, adult; E11.22 Type 2 diabetes mellitus with diabetic chronic kidney disease; E78.5 Hyperlipidemia, unspecified; G47.33 Obstructive sleep apnea (adult) (pediatric); N18.3 Chronic kidney disease, stage 3 (moderate); E11.65 Type 2 diabetes mellitus with hyperglycemia; F32.9 Major depressive disorder, single episode, unspecified; I12.9 Hypertensive chronic kidney disease with stage 1 through stage 4 chronic kidney disease, or unspecified chronic kidney disease; F41.9 Anxiety disorder, unspecified; E66.01 Morbid (severe) obesity due to excess calories; Z86.711 Personal history of pulmonary embolism; Z87.891 Personal history of nicotine dependence; Z86.718 Personal history of other venous thrombosis and embolism; Z79.01 Long term (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 anticoagulants; Z79.899 Other long term (current) drug therapy; Z79.4 Long term (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; Z88.6 Allergy status to analgesic agent; Z88.1 Allergy status to other antibiotic agents; Z88.8 Allergy status to other drugs, medicaments and biological substances; Z91.048 Other nonmedicinal substance allergy status; Z91.040 Latex allergy status

== ENCOUNTER → 2019-05-10 | Outpatient (REF) ==
[~2019-05-10] MED LIST changes: +ACET1TAB37 PO
[2019-05-10 09:26] LABS: HEMATOCRIT 39.6 % (36.0-47.0); HEMOGLOBIN 13.1 g/dl (12.0-15.5); MEAN CORPUSCULAR HEMOGLOBIN 29.8 pg (27.0-33.0); MEAN CORPUSCULAR HGB CONC 33.1 g/dl (32.0-36.5); PLATELET COUNT, AUTOMATED 264 10^3/uL (150-450)
[2019-05-10 09:39] LABS: CREATININE FOR GFR 1.33 MG/DL (0.55-1.30); GLOMERULAR FILTRATION RATE 42.4 (>45); POTASSIUM SERUM 3.5 MEQ/L (3.5-5.1)
[2019-05-10 10:33] LABS: HEMOGLOBIN A1c 10.1 %
== END ==
LOC: SKLAB2 09:45
PROVIDERS: ATTEND Internal Medicine
DX: E11.9 Type 2 diabetes mellitus without complications (principal)

== ENCOUNTER → 2019-05-12 | Outpatient (REF) | LOC: M LAB 18:02 → SKLAB2 18:02 | PROVIDERS: ATTEND Internal Medicine | DX: R73.09 Other abnormal glucose (principal) ==

== ENCOUNTER → 2019-05-13 | Outpatient (REF) ==
[2019-05-13 15:41] LABS: HEMATOCRIT 36.3 % (36.0-47.0); HEMOGLOBIN 12.5 g/dl (12.0-15.5); MEAN CORPUSCULAR HEMOGLOBIN 29.3 pg (27.0-33.0); MEAN CORPUSCULAR HGB CONC 34.4 g/dl (32.0-36.5); PLATELET COUNT, AUTOMATED 309 10^3/uL (150-450); RED BLOOD COUNT 4.27 10^6/uL (4.00-5.40)
[2019-05-13 15:44] LABS: APPEARANCE, URINE CLEAR (CLEAR); BACTERIA, URINE AUTO 1+ (NEGATIVE); BILIRUBIN, URINE AUTO NEGATIVE (NEGATIVE); BLOOD, URINE BLOOD NEGATIVE (NEGATIVE); COLOR, URINE STRAW (YELLOW); GLUCOSE, URINE (UA) AUTO 2+ mg/dL (NEGATIVE); KETONE, URINE AUTO NEGATIVE (NEGATIVE); LEUKOCYTE ESTERASE, URINE AUTO NEGATIVE (NEGATIVE); NITRITE, URINE AUTO NEGATIVE (NEGATIVE); PROTEIN, URINE AUTO NEGATIVE (NEGATIVE); RBC, URINE AUTO 0 /HPF (0-3); SPECIFIC GRAVITY URINE AUTO 1.005 (1.002-1.035); SQUAMOUS EPITHELIAL CELL UR AU 1 /HPF (0-6); UROBILINOGEN, URINE AUTO 0.2 mg/dL (0.0-2.0); WBC, URINE AUTO 0 /HPF (0-3)
[2019-05-13 16:07] LABS: CALCIUM LEVEL 9.7 MG/DL (8.8-10.2); CREATININE FOR GFR 1.59 MG/DL (0.55-1.30); GLOMERULAR FILTRATION RATE 34.5 (>45); POTASSIUM SERUM 3.7 MEQ/L (3.5-5.1)
--- NOTE | 2019-05-13 17:08 | REP ---
ABDOMINAL SERIES: Supine and erect views of the abdomen demonstrate no free air and no evidence for small bowel obstruction. There is a fairly large amount of fecal material throughout the colon without evidence of fecal impaction. No dilated small bowel loops are seen. There are vascular calcifications in the pelvis. There are degenerative changes of the spine with evidence of prior laminectomy at L4. An accompanying view of the chest demonstrates no acute infiltrate. The heart is not significantly enlarged. IMPRESSION: No free air or obstruction. Fecal retention. Electronically Signed by Harry Mota MD 05/14/2019 07:48 P
--- NOTE | 2019-05-13 21:44 | ECGEPIP ---
[facility] Test Date: 2019-05-13 Pat Name: MANJU MILLS Department: Room: - Gender: Female Coffee Break Attendant: JERALD : 1950 Requested By: JASON LANG [facility] Order Number: [id number] Reading MD: Shoaib Mckeon Measurements Intervals [place] Rate: 67 P: 42 ND: 196 QRS: -5 QRSD: 111 T: 53 QT: 402 QTc: 424 Interpretive Statements SINUS RHYTHM LEFT VENTRICULAR HYPERTROPHY AND ST-T CHANGE Similar to tracing done 05-07-19 Electronically Signed on 05-13-2019 21:43:59 EST by Shoaib Mckeon
== END ==
LOC: SKLAB2 13:36
PROVIDERS: ATTEND Nurse Practitioner Family
DX: K59.00 Constipation, unspecified (principal); R10.32 Left lower quadrant pain

== ENCOUNTER 2019-05-24 18:07 | Emergency (ER) | payer MEDICARE, MEDICAID ==
[~2019-05-24] VITALS: Ht 162.6 cm; Wt 119.5 kg
[2019-05-24] MEDS ORDERED: NS 1,000 ML IV ONE (18:45)
[2019-05-24] MEDS ORDERED: DOCU100C17 PO (19:11)
[2019-05-24] MEDS ORDERED: LANTINJ4 SC (19:11)
[2019-05-24] MEDS ORDERED: ALBU83IN INH (19:11)
--- NOTE | 2019-05-24 19:48 | ECGEPIP ---
[facility] - ED Test Date: 2019-05-24 Pat Name: MANJU MILLS Department: Room: - Gender: Female Axle Bearing Polisher: : 1950 Requested By: TAMI ARAMBULA Order Number: [id number] Reading MD: Primo Anaya Measurements Intervals [place] Rate: 68 P: 35 LA: 199 QRS: -15 QRSD: 117 T: 32 QT: 413 QTc: 442 Interpretive Statements SINUS RHYTHM LEFT VENTRICULAR HYPERTROPHY MODERATE INTRAVENTRICULAR CONDUCTION DELAY SIMILAR TO 05/13/19 Electronically Signed on 05-24-2019 19:48:21 EDT by Primo Anaya
[2019-05-24 19:51] LABS: BASO % 0.7 % (0.0-1.0); EOS # 0.1 10^3/uL (0.0-0.5); EOS % 2.2 % (0.0-3.0); HEMATOCRIT 34.7 % (36.0-47.0); HEMOGLOBIN 11.5 g/dl (12.0-15.5); LYMPH # 2.1 10^3/uL (1.5-5.0); LYMPH % 37.8 % (24.0-44.0); MEAN CORPUSCULAR HEMOGLOBIN 29.1 pg (27.0-33.0); MEAN CORPUSCULAR HGB CONC 33.1 g/dl (32.0-36.5); MEAN CORPUSCULAR VOLUME 87.8 fl (80.0-96.0); MONO # 0.5 10^3/uL (0.0-0.8); MONO % 9.5 % (0.0-5.0); NEUTROPHILS # 2.7 10^3/uL (1.5-8.5); NEUTROPHILS % 49.4 % (36.0-66.0); PLATELET COUNT, AUTOMATED 258 10^3/uL (150-450); RED BLOOD COUNT 3.95 10^6/uL (4.00-5.40); WHITE BLOOD COUNT 5.5 10^3/uL (4.0-10.0)
[2019-05-24 20:03] LABS: PARTIAL THROMBOPLASTIN TIME 27.1 SECONDS (25.0-38.4)
[2019-05-24 20:04] LABS: INR 1.05; PROTHROMBIN TIME 13.4 SECONDS (11.8-14.0)
--- NOTE | 2019-05-24 20:09 | REP ---
HISTORY: Abdominal pain. COMPARISON: 05/13/2019, which was within normal limits. The accompanying frontal view of the chest is unchanged from the prior exam. There is no acute abnormality. There is no free subdiaphragmatic air. The intestinal gas pattern is nonspecific and essentially unchanged. There is no evidence of intestinal obstruction or free air. There is no significant change in the appearance of the organ silhouettes. IMPRESSION: Essentially no change from the prior exam. There is no evidence of acute disease. Electronically Signed by Hernesto Tomlinson DO 05/25/2019 09:26 A
[2019-05-24 20:18] LABS: ALBUMIN 3.4 GM/DL (3.2-5.2); ALT/SGPT 38 U/L (12-78); BILIRUBIN,DIRECT < 0.1 MG/DL (0.0-0.2); BILIRUBIN,TOTAL 0.2 MG/DL (0.2-1.0); BLOOD UREA NITROGEN 21 MG/DL (7-18); CALCIUM LEVEL 8.5 MG/DL (8.8-10.2); CARBON DIOXIDE LEVEL 29 MEQ/L (21-32); CHLORIDE LEVEL 104 MEQ/L (98-107); CK-MB VALUE MASS 2.1 NG/ML (<3.6); CPK CREATINE PHOSPHOKINASE 129 U/L (26-192); CREATININE FOR GFR 1.37 MG/DL (0.55-1.30); GLOMERULAR FILTRATION RATE 40.9 (>45); GLUCOSE, FASTING 263 MG/DL (70-100); LIPASE 100 U/L (73-393); MAGNESIUM LEVEL 1.8 MG/DL (1.8-2.4); MB/CK RELATIVE INDEX 1.63 (< OR =4); POTASSIUM SERUM 3.3 MEQ/L (3.5-5.1); SODIUM LEVEL 138 MEQ/L (136-145); TOTAL PROTEIN 6.2 GM/DL (6.4-8.2); TROPONIN I < 0.02 NG/ML (< 0.10)
[2019-05-24 22:00] VITALS: BP 127/60
== END 2019-05-24 22:16 | disposition home or self-care (01) ==
LOC: M ED 18:07
DX: R53.1 Weakness (principal); A04.5 Campylobacter enteritis; E11.9 Type 2 diabetes mellitus without complications; I12.9 Hypertensive chronic kidney disease with stage 1 through stage 4 chronic kidney disease, or unspecified chronic kidney disease; J44.9 Chronic obstructive pulmonary disease, unspecified; N18.3 Chronic kidney disease, stage 3 (moderate); G25.81 Restless legs syndrome; Z86.718 Personal history of other venous thrombosis and embolism; Z79.899 Other long term (current) drug therapy; Z79.4 Long term (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; Z79.01 Long term (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 anticoagulants; Z88.1 Allergy status to other antibiotic agents; Z88.5 Allergy status to narcotic agent; Z88.8 Allergy status to other drugs, medicaments and biological substances; Z91.040 Latex allergy status; Z91.048 Other nonmedicinal substance allergy status

== ENCOUNTER → 2019-06-26 | Outpatient (REF) | payer MEDICARE, MEDICAID ==
[~2019-06-26] MED LIST changes: +ALBU83IN INH; +DOCU100C17 PO
[2019-06-26 13:11] LABS: HEMOGLOBIN A1c 9.2 %
[2019-06-26 13:21] LABS: ALBUMIN 4.1 GM/DL (3.2-5.2); BILIRUBIN,TOTAL 0.3 MG/DL (0.2-1.0); CALCIUM LEVEL 9.9 MG/DL (8.8-10.2); CHOLESTEROL RISK RATIO 3.853 (<5); CREATININE FOR GFR 1.19 MG/DL (0.55-1.30); GLOMERULAR FILTRATION RATE 48.2 (>45); POTASSIUM SERUM 3.9 MEQ/L (3.5-5.1); TOTAL PROTEIN 7.1 GM/DL (6.4-8.2)
[2019-06-26 13:25] LABS: PTH INTACT 30.9 PG/ML (18.5-88.0); TOTAL 25(OH) VITAMIN D 23.1 NG/ML (30.0-100.0)
== END ==
PROVIDERS: ATTEND Physician Assistant Medical
DX: E78.2 Mixed hyperlipidemia (principal); I12.9 Hypertensive chronic kidney disease with stage 1 through stage 4 chronic kidney disease, or unspecified chronic kidney disease; E11.22 Type 2 diabetes mellitus with diabetic chronic kidney disease; N18.3 Chronic kidney disease, stage 3 (moderate); Z79.4 Long term (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; K21.9 Gastro-esophageal reflux disease without esophagitis; Z86.711 Personal history of pulmonary embolism; E55.9 Vitamin D deficiency, unspecified

== ENCOUNTER → 2019-07-31 | Outpatient (CLI) | payer MEDICARE, MEDICAID ==
--- NOTE | 2019-07-31 11:51 | REPMRS ---
Patient History The patient states she has not had a clinical breast exam in over a year. Family history of breast cancer at age 50 or over in maternal aunt, prostate cancer in father. Digital Woman Screen Mammo: July 31, 2019 - Exam #: [id number] Bilateral CC and MLO view(s) were taken. Technologist: Irasema Schreiber Technologist Prior study comparison: October 20, 2016, bilateral digital woman screen mammo, performed at [facility]. October 06, 2014, digital woman screen mammo performed at [facility]. 2010, digital bilateral screening mammo performed at [facility]. FINDINGS: There are scattered fibroglandular densities. The Volpara volumetric breast density category is:B. There has been no change in the appearance of the mammogram from the prior studies. There is a mild amount of scattered fibroglandular density which is fairly symmetric. There is no interval development of dominant mass, architectural distortion, or grouped microcalcification suggestive of malignancy. 3-D tomosynthesis shows no additional findings. Assessment: BI-RADS/ACR category 1 mammogram. Negative Mammogram. Recommendation Routine screening mammogram of both breasts in 1 year (for women over age 40). This patient's Lifetime Breast Cancer Risk is estimated at 7.0 %. This mammogram was interpreted with the aid of an FDA-approved computer-aided dectection system. Electronically Signed By: Jassi Moran MD 07/31/19 [id number]
== END ==
LOC: M WHC 09:59
PROVIDERS: ATTEND Physician Assistant Medical
DX: Z12.31 Encounter for screening mammogram for malignant neoplasm of breast (principal)

== ENCOUNTER → 2019-08-14 | Outpatient (REF) | payer MEDICARE, MEDICAID ==
[2019-08-14 10:43] LABS: HEMATOCRIT 35.8 % (36.0-47.0); HEMOGLOBIN 11.7 g/dl (12.0-15.5); MEAN CORPUSCULAR HEMOGLOBIN 28.5 pg (27.0-33.0); MEAN CORPUSCULAR HGB CONC 32.7 g/dl (32.0-36.5); MEAN CORPUSCULAR VOLUME 87.1 fl (80.0-96.0); PLATELET COUNT, AUTOMATED 279 10^3/uL (150-450); RED BLOOD COUNT 4.11 10^6/uL (4.00-5.40); WHITE BLOOD COUNT 5.9 10^3/uL (4.0-10.0)
[2019-08-14 11:01] LABS: CALCIUM LEVEL 9.2 MG/DL (8.8-10.2); CREATININE FOR GFR 1.27 MG/DL (0.55-1.30); GLOMERULAR FILTRATION RATE 44.5 (>45); PHOSPHORUS LEVEL 2.8 MG/DL (2.5-4.9); POTASSIUM SERUM 3.9 MEQ/L (3.5-5.1)
== END ==
PROVIDERS: ATTEND Internal Medicine Cardiovascular Disease
DX: I25.10 Atherosclerotic heart disease of native coronary artery without angina pectoris (principal)

== ENCOUNTER → 2019-08-28 | Outpatient (REF) | payer MEDICARE, MEDICAID ==
[2019-08-28 12:31] LABS: CREATININE FOR GFR 0.91 MG/DL (0.55-1.30); GLOMERULAR FILTRATION RATE > 60.0 (>45)
== END ==
DX: Z79.899 Other long term (current) drug therapy (principal)

== ENCOUNTER 2019-09-28 06:28 | Inpatient (IN) | payer MEDICARE, MEDICAID ==
[~2019-09-28] VITALS: Ht 170.2 cm; Wt 136.2 kg
[~2019-09-28 06:28] MED LIST changes: -AMLO10TA5 PO; +AMLO1TAB24 PO; +AMLO1TAB25 PO; -AMLO5TAB6 PO; +D31000TA2 PO; -VITAD1000T PO
[2019-09-28] MEDS ORDERED: NORCO, ANEXSIA 5/325MG TABLET (HYDROcodone/ACETAMINOPHEN) PO ONE ×2 (07:30→11:30)
--- NOTE | 2019-09-28 07:48 | REPVR ---
PROCEDURE INFORMATION: Exam: CT Head Without Contrast Exam date and time: 09/28/2019 7:22 AM Age: 69 years old Clinical indication: Injury or trauma; Fall; Initial encounter; Blunt trauma (contusions or hematomas); Additional info: Fall/eliquis TECHNIQUE: Imaging protocol: Computed tomography of the head without contrast. Radiation optimization: All CT scans at this facility use at least one of these dose optimization techniques: automated exposure control; mA and/or kV adjustment per patient size (includes targeted exams where dose is matched to clinical indication); or iterative reconstruction. COMPARISON: CT Head without contrast 05/07/2019 5:00 PM FINDINGS: Brain: There is mild, diffuse parenchymal volume loss. The cortical/white matter interfaces are preserved throughout the brain. There is no evidence of intracranial hemorrhage. There is heterogeneity of the white matter attenuation, most consistent with mild chronic white matter ischemic changes. Ventricles: The ventricular system demonstrates mild diffuse compensatory enlargement. Bones/joints: No acute fractures of the skull are identified. Sinuses: The visualized paranasal sinuses are clear. Mastoid air cells: The mastoid air cells are clear. Soft tissues: The soft tissues appear unremarkable. IMPRESSION: 1. Mild diffuse parenchymal volume loss and low attenuation in the white matter, most likely due to mild chronic small vessel ischemic disease. 2. No evidence of acute intracranial injury. Electronically signed by: Maryjane Pop On 09/28/2019 07:48:25 AM
--- NOTE | 2019-09-28 07:52 | REPVR ---
PROCEDURE INFORMATION: Exam: CT Cervical Spine Without Contrast Exam date and time: 09/28/2019 7:22 AM Age: 69 years old Clinical indication: Injury or trauma; Fall; Initial encounter; Blunt trauma TECHNIQUE: Imaging protocol: Computed tomography images of the cervical spine without contrast. Radiation optimization: All CT scans at this facility use at least one of these dose optimization techniques: automated exposure control; mA and/or kV adjustment per patient size (includes targeted exams where dose is matched to clinical indication); or iterative reconstruction. COMPARISON: No relevant prior studies available. FINDINGS: Vertebrae: There is straightening of the cervical lordosis without subluxations. There is no evidence of acute fracture. Hypertrophic degenerative changes are seen at the articulation of the odontoid process with the anterior arch of C1. There is mild multilevel facet arthropathy, most prominent at C4-C5. Discs/Spinal canal/Neural foramina: There is degenerative disc disease most prominent from C4-C5 through C6-C7, with disc space narrowing and endplate degenerative changes. There is mild stenosis of the spinal canal from C4-C5 through C6-C7. There is neural foraminal narrowing bilaterally from C4-C5 through C6-C7. Prevertebral Space: The prevertebral soft tissues appear normal. Soft tissues: Unremarkable. Lungs: Not included. IMPRESSION: 1. Straightening of the cervical lordosis. No acute fractures or subluxations identified. 2. Multilevel degenerative disc disease, most prominent from C4-C5 through C6-C7. Electronically signed by: Maryjane Pop On 09/28/2019 07:52:04 AM
--- NOTE | 2019-09-28 10:27 | REP ---
REASON: Pain after trauma. Chronic change is seen throughout the lumbar spine. There is disc space narrowing and anterior lipping at every level. The exam is limited by the patient's body habitus. Vertebral body height and alignment is within normal limits. Degenerative facet joint changes are present at every level bilaterally. There is no plain radiographic evidence of an acute fracture. IMPRESSION: Chronic changes, as described above. Electronically Signed by Hernesot Tomlinson DO 09/28/2019 10:42 A
--- NOTE | 2019-09-28 10:30 | REP ---
REASON: Pain after trauma. Degenerative change is seen involving the hip joints. Degenerative change is seen involving the sacroiliac joints and imaged portion of the spine. There is no acute fracture. IMPRESSION: AP pelvis shows degenerative changes. Two views of the right hip were obtained during the AP pelvis exam. The hip joints space is asymmetrically narrowed, consistent with degenerative change. There is no acute fracture, dislocation, or subluxation. Two views of the left hip were obtained with the AP pelvis. Asymmetric hip joint space narrowing is present. There is no acute fracture, dislocation, or subluxation. Electronically Signed by Hernesto Tomlinson DO 09/28/2019 10:42 A
--- NOTE | 2019-09-28 10:32 | REP ---
REASON: Trauma. PRIORS: None. There is advanced tricompartment marginal osteophytosis with medial compartmental and patellofemoral joint space narrowing. There is no evidence of an acute fracture, dislocation, or subluxation. IMPRESSION: Degenerative changes. Electronically Signed by Hernesto Tomlinson DO 09/28/2019 10:42 A
[2019-09-28 11:08] LABS: HEMATOCRIT 33.3 % (36.0-47.0); HEMOGLOBIN 11.2 g/dl (12.0-15.5); MEAN CORPUSCULAR HEMOGLOBIN 28.6 pg (27.0-33.0); MEAN CORPUSCULAR HGB CONC 33.6 g/dl (32.0-36.5); MEAN CORPUSCULAR VOLUME 85.2 fl (80.0-96.0); PLATELET COUNT, AUTOMATED 227 10^3/uL (150-450); RED BLOOD COUNT 3.91 10^6/uL (4.00-5.40); WHITE BLOOD COUNT 7.3 10^3/uL (4.0-10.0)
[2019-09-28] MEDS ORDERED: CHLO25TA PO (12:04)
[2019-09-28] MEDS ORDERED: VASC1CAP2 PO (12:04)
[2019-09-28] MEDS ORDERED: MIRA3350 PO (12:04)
[2019-09-28] MEDS ORDERED: NOVOINJ3 SC ×2 (12:04)
[2019-09-28] MEDS ORDERED: BASA100I SC ×2 (12:04)
[2019-09-28] MEDS ORDERED: PREG150C PO (12:04)
[2019-09-28] MEDS ORDERED: VALS1TAB66 PO (12:04)
[2019-09-28] MEDS ORDERED: ACETAMINOPHEN TAB 650MG DOSE (2X325MG) PO PRN (12:30)
[2019-09-28] MEDS ORDERED: MOM 30ML SUSPENSION UDC PO PRN (12:30)
[2019-09-28] MEDS ORDERED: MAALOX 30 ML SUSP *UDC PO PRN (12:30)
[2019-09-28] MEDS ORDERED: GLUCAGON INJ 1MG VIAL SC PRN (13:45)
[2019-09-28] MEDS ORDERED: GLUCOSE 4GM CHEW TABLET PO PRN (13:45)
[2019-09-28] MEDS ORDERED: DEXTROSE 50% 50 ML SYRINGE IV PRN (13:45)
[2019-09-28] MEDS ORDERED: BISACODYL 10 MG SUPP PR PRN (14:00)
[2019-09-28 14:18] VITALS: BP 153/58
[2019-09-28] MEDS ORDERED: KETOROLAC 30 MG/ML 1ML VIAL IV ONE (15:00)
[2019-09-28] MEDS: OMEPRAZOLE 20 MG CAP PO SCH (15:41)
[2019-09-28] MEDS: amLODIPine 5 MG TAB PO SCH (15:41)
[2019-09-28] MEDS: LIDOCAINE 5% (LIDODERM) PATCH TD SCH (15:42)
[2019-09-28] MEDS: CHLORTHALIDONE 25 MG TAB PO SCH (17:09)
--- NOTE | 2019-09-28 17:10 | HPEPDOC ---
General Date of Admission Sep 28, 2019 at 12:25 Date of Service: Sep 28, 2019 Chief Complaint The patient is a 69-year-old female admitted with a reason for visit of FALL. History of Present Illness 69 year old morbidly obese female a resident of [facility] fell off [facility] bed this morning and hurt her right knee and left buttock and low back and was not able to mobilize after the fall so was brought to the ED for evaluation. SHe reports that she rolled over in the bed during sleep and fell off the bed to the floor on her right knee. She tried to roll over to the left to try to get up when she hurt her left buttock and low back resulting in severe pain and muscle spasm and she could not move any more so was brought to the ED. Here she is complaining of dull aching pain about 8/10 in intensity at the low back center, left buttock and right knee. Her pain becomes sharp associated with muscle spasms when she tried to move or change position. Cervical CT in the ED did not show any injury. Xray of the knee, hip and lumber spine did not show any acute fracture, dislocation. She was unable to mobilize so could not go back to assisted living so was admitted for pain control and PT to help with mobilization. Home Medications Scheduled Acetaminophen (Acetaminophen ER) 650 Mg Tablet.er, 650 MG PO BID, (Reported) Amlodipine Besylate (Amlodipine Besylate) 5 Mg Tablet, 5 MG PO DAILY, (Reported) Apixaban (Eliquis) 5 Mg Tablet, 5 MG PO BID, (Reported) Chlorthalidone (Chlorthalidone) 25 Mg Tablet, 25 MG PO DAILY, (Reported) Cholecalciferol (Vitamin D3) (Vitamin D3) 1,000 Unit Tablet, 2,000 UNITS PO DAILY, (Reported) TAKES AT NOON Duloxetine Hcl (Cymbalta) 60 Mg Capsule.dr, 60 MG PO BID, (Reported) Fluticasone Propionate (Fluticasone Propionate) 50 Mcg/Act Spr, 2 SPRAY NARES DAILY, (Reported) Icosapent Ethyl (Vascepa) 1 Gm Capsule, 2 GM PO BID, (Reported) @ 0900, 1700 Insulin Aspart (Novolog Flexpen) 100 Unit/1 Ml Insuln.pen, 24 UNITS SC BID, (Reported) @ 0730 & 1630 Insulin Aspart (Novolog Flexpen) 100 Unit/1 Ml Insuln.pen, 30 UNITS SC DAILY, (Reported) @ 1200 Insulin Glargine,Hum.rec.anlog (Basaglar Kwikpen U-100) 100 Unit/1 Ml Insuln.pen, 65 UNIT SC DAILY, (Reported) Insulin Glargine,Hum.rec.anlog (Basaglar Kwikpen U-100) 100 Unit/1 Ml Insuln.pen, 40 UNIT SC QHS, (Reported) Liraglutide (Victoza 2-Anthony) 0.6 Mg/0.1 Ml Pen.injctr, 1.2 MG SC QPM, (Reported) 1600 - PATIENT SELF ADMINISTERS Multivitamin (Multivitamins) 1 Each Capsule, 1 CAP PO DAILY, (Reported) Omeprazole (Omeprazole) 40 Mg Capsule.dr, 40 MG PO DAILY, (Reported) Polyethylene Glycol 3350 (Miralax) 119 Gm Powder, 17 GM PO DAILY, (Reported) MIXED IN 4-6 OZ OF WATER Potassium Chloride (Potassium Chloride) 20 Meq Tablet.er, 20 MEQ PO DAILY, (Reported) Pravastatin Sodium (Pravastatin Sodium) 40 Mg Tab, 40 MG PO QHS, (Reported) Pregabalin (Pregabalin) 150 Mg Capsule, 150 MG PO BID, (Reported) Valsartan (Valsartan) 80 Mg Tablet, 40 MG PO QHS, (Reported) Scheduled PRN Albuterol Sulf (Albuterol Sulfate) 2.5 Mg/3 Ml Vial.neb, 2.5 MG INH Q6H PRN for SHORTNESS OF BREATH, (Reported) Docusate Sodium (Docusate Sodium) 100 Mg Capsule, 200 MG PO QHS PRN for CONSTIP ATION, (Reported) Polyethylene Glycol 3350 (Miralax) 119 Gm Powder, 17 GM PO DAILY PRN for CONSTIPATION, (Reported) MIX WITH 4-6OZ OF JUICE OR WATER Allergies Coded Allergies: TAPE (Verified Allergy, Intermediate, NYLON TAPE CAUSES HIVES PER 09/09/03, 05/02/19) latex (Verified Allergy, Intermediate, RASH, 05/02/19) ibuprofen (Verified Adverse Reaction, Intermediate, BLEEDING, CONSTIPATION, 05/02/19) metoprolol (Verified Adverse Reaction, Intermediate, LOWERS BLOOD PRESSURE TOO MUCH, 05/02/19) LOWERS BLOOD PRESSURE TOO MUCH morphine (Verified Adverse Reaction, Intermediate, ITCHING, 05/02/19) Quinolones (Verified Adverse Reaction, Mild, DIZZINESS, 05/02/19) Past Medical History Medical History MORBID OBESITY BERYL on CPAP H/O. DVT, BILAT. PE T2DM on Insulin COPD RESTLESS LEG HTN CKD GERD DEPRESSION/ANXIETY HYPERLIPIDEMIA ALLERGIC RHINITIS OA OF KNEES, WRISTS VITAMIN D DEFICIENCY NEUROPATHY Chric Back Pain s/p back surgery in 1970s. Surgical History two back surgeries, right arm fatty tumor removal, partial hysterectomy, right rib removal due to cancer. Family History Significant Family History: Cancer (Father colon cancer, Maternal Aunts breast ccancer), Diabetes (mother), Heart disease, Other (Maternal aunts, rheumatoid arthritis. ) Social History * Smoker: Denies Alcohol: Denies Drugs: denies A-FIB/CHADSVASC A-FIB History Current/History of A-Fib/PAF?: No Current PO Anticoag Therapy: Yes Review of Systems Constitutional: Denies: Chills, Fever, Night Sweats Eyes: Denies: Pain, Vision change ENT: Denies: Head Aches, Ear Pain, Dysphagia Skin: Denies: Rash, Lesions, Breakdown Pulmonary: Denies: Dyspnea, Cough Cardiovascular: Denies: Chest Pain, Palpitations, Orthopnea, Paroxysmal Noc. Dyspnea, Lt Headedness Gastrointestinal: Reports: Diarrhea; Denies: Nausea, Vomiting, Abdominal Pain Genitourinary: Reports: Incontinence Hematologic: Denies: Bruising, Bleeding Excessively Musculoskeletal: Reports: Back Pain, Joint Pain (right knee), Spasms Physical Examination General Exam: Positive: Alert, Cooperative, Mild Distress Eye Exam: Positive: PERRLA, Conjunctiva & lids normal, EOMI; Negative: Sclera icteric ENT Exam: Positive: Atraumatic, Mucous membr. moist/pink, Pharynx Normal Neck Exam: Positive: Supple; Negative: JVD, thyromegaly Chest Exam: Positive: Clear to auscultation, Diminished Heart Exam: Positive: Rate Normal, Regular Rhythm, Normal S1, Normal S2; Negative: Murmurs, Rubs Abdomen Exam: Positive: Normal bowel sounds, Soft; Negative: Tenderness, Hepatospenomegaly Extremity Exam: Negative: Clubbing, Cyanosis, Edema Skin Exam: Positive: Nl turgor and temperature; Negative: Breakdown, Lesion Neuro Exam: Positive: Normal Speech, Strength at 5/5 X4 ext, Normal Tone Psych Exam: Positive: Memory Intact, Oriented x 3 Vital Signs Vital Signs Date Time Temp Pulse Resp B/P (MAP) Pulse Ox O2 Delivery O2 Flow Rate FiO2 09/28/19 14:18 98.0 71 19 153/58 (89) 93 Room Air Laboratory Data Labs 24H Laboratory Tests 2 09/28/19 10:55: Nucleated Red Blood Cells % (auto) 0.0 09/28/19 11:02: POC Glucose (Misc Panel) 303H, POC Sodium (Misc Panel) 138, POC Potassium (Misc Panel) 3.4L, POC Chloride (Misc Panel) 101, POC Total CO2 (Misc Panel) 24.0, POC Blood Urea Nitrogen (Misc Panel 23, POC Ionized Calcium (Misc Panel) 4.6, POC Creatinine (Misc Panel) 1.0, POC Hematocrit (Misc Panel) 34.0L 09/28/19 16:31: Bedside Glucose (Misc Panel) 267H CBC/BMP Laboratory Tests 09/28/19 10:55 Assessment/Plan 69 year old morbidly obese female a resident of [facility] fell off the bed this morning and hurt her right knee and left buttock and low back and was not able to mobilize after the fall so was brought to the ED for evaluation. SHe reports that she rolled over in the bed during sleep and fell off the bed to the floor on her right knee. She tried to roll over to the left to try to get up when she hurt her left buttock and low back resulting in severe pain and muscle spasm and she could not move any more so was brought to the ED. Here she is complaining of dull aching pain about 8/10 in intensity at the low back center, left buttock and right knee. Her pain becomes sharp associated with muscle spasms when she tried to move or change position. Cervical CT in the ED did not show any injury. Xray of the knee, hip and lumber spine did not show any acute fracture, dislocation. She was unable to mobilize so could not go back to assisted living so was admitted for pain control and PT to help with mobilization. Inability to ambulate after fall due to severe pain pain control with IV toradol, norco, lidoderm patch, tylenol PT/OT Diabetes: Will continue Levemir and lispro in sliding scale hypoglycemic protocol FS AC and HS Morbid obesity and BERYL use own CPAP/BIPAP Continuous pulse oximetry. Hypertension Valsartan, chlorthalidone, amlodipine Neuropathy Lyrica, cymbalta H/O DVT/PE eliquis Hyperlipidemia statin. Plan / VTE VTE Prophylaxis Ordered?: Yes LYN PITTMAN MD Sep 28, 2019 17:10
[2019-09-28] MEDS: HumaLOG INSULIN (NovoLOG) PER UNIT SC SCH ×2 (17:11→21:13)
[2019-09-28] MEDS ORDERED: NS 1,000 ML IV SCH (20:00)
[2019-09-28] MEDS: PRAVASTATIN 20 MG TAB PO SCH (20:17)
[2019-09-28] MEDS: PREGABALIN 75 MG CAP(LYRICA) PO SCH (20:17)
[2019-09-28] MEDS: DULoxetine 30 MG CAP (CYMBALTA) PO SCH (20:17)
[2019-09-28] MEDS: APIXABAN 5 MG TAB (ELIQUIS) PO SCH (20:17)
[2019-09-28] MEDS: VALSARTAN 40MG TABLET (DIOVAN) PO SCH (20:19)
[2019-09-28] MEDS: NORCO, ANEXSIA 5/325MG TABLET (HYDROcodone/ACETAMINOPHEN) PO PRN (20:20)
[2019-09-28] MEDS: **NOTE PATIENT COMMENT** MISC XX SCH (20:27)
[2019-09-28 21:00] VITALS: O2SAT 96
[2019-09-28] MEDS ORDERED: DOCUSATE SODIUM 100 MG CAP PO SCH (21:00)
[2019-09-28] MEDS: LEVEMIR (INSULIN DETEMIR) 1 UNITS/0.01ML SC SCH (21:13)
[2019-09-28 22:00] VITALS: BP 140/62
[2019-09-29 06:00] VITALS: BP 171/71
[2019-09-29] MEDS ORDERED: KETOROLAC 30 MG/ML 1ML VIAL IV PRN (06:45)
[2019-09-29 07:07] LABS: BASO % 0.7 % (0.0-1.0); EOS # 0.2 10^3/uL (0.0-0.5); EOS % 4.3 % (0.0-3.0); HEMATOCRIT 33.4 % (36.0-47.0); HEMOGLOBIN 11.1 g/dl (12.0-15.5); LYMPH # 1.6 10^3/uL (1.5-5.0); LYMPH % 27.5 % (24.0-44.0); MEAN CORPUSCULAR HEMOGLOBIN 29.1 pg (27.0-33.0); MEAN CORPUSCULAR HGB CONC 33.2 g/dl (32.0-36.5); MEAN CORPUSCULAR VOLUME 87.4 fl (80.0-96.0); MONO # 0.6 10^3/uL (0.0-0.8); MONO % 10.3 % (0.0-5.0); NEUTROPHILS # 3.2 10^3/uL (1.5-8.5); NEUTROPHILS % 56.8 % (36.0-66.0); PLATELET COUNT, AUTOMATED 226 10^3/uL (150-450); RED BLOOD COUNT 3.82 10^6/uL (4.00-5.40); WHITE BLOOD COUNT 5.6 10^3/uL (4.0-10.0)
[2019-09-29 07:38] LABS: CALCIUM LEVEL 8.8 MG/DL (8.8-10.2); CREATININE FOR GFR 1.23 MG/DL (0.55-1.30); GLOMERULAR FILTRATION RATE 46.2 (>45); POTASSIUM SERUM 3.7 MEQ/L (3.5-5.1)
[2019-09-29] MEDS: APIXABAN 5 MG TAB (ELIQUIS) PO SCH ×2 (08:33→21:26)
[2019-09-29] MEDS: PREGABALIN 75 MG CAP(LYRICA) PO SCH ×2 (08:33→21:26)
[2019-09-29] MEDS: OMEPRAZOLE 20 MG CAP PO SCH (08:33)
[2019-09-29] MEDS: DULoxetine 30 MG CAP (CYMBALTA) PO SCH ×2 (08:33→21:26)
[2019-09-29] MEDS: LIDOCAINE 5% (LIDODERM) PATCH TD SCH (08:33)
[2019-09-29] MEDS: HumaLOG INSULIN (NovoLOG) PER UNIT SC SCH ×4 (08:34→21:25)
[2019-09-29] MEDS: LEVEMIR (INSULIN DETEMIR) 1 UNITS/0.01ML SC SCH ×2 (08:34→21:25)
[2019-09-29] MEDS: CHLORTHALIDONE 25 MG TAB PO SCH (08:35)
[2019-09-29] MEDS: amLODIPine 5 MG TAB PO SCH (08:39)
[2019-09-29] MEDS: NORCO, ANEXSIA 5/325MG TABLET (HYDROcodone/ACETAMINOPHEN) PO PRN ×2 (12:10→21:23)
--- NOTE | 2019-09-29 12:29 | IPNPDOC ---
Subjective Date Seen The patient was seen on 09/29/19. Subjective Chief Complaint/HPI Continues to have severe pain in the right knee, also low back and left buttocks. Difficulty in rolling in bed. No fever or chills. Says unable to bear any weight on the right leg. Objective Physical Examination General Exam: Positive: Alert, Cooperative, Mild Distress Eye Exam: Positive: PERRLA, Conjunctiva & lids normal, EOMI; Negative: Sclera icteric ENT Exam: Positive: Atraumatic, Mucous membr. moist/pink, Pharynx Normal Neck Exam: Positive: Supple; Negative: JVD, thyromegaly Chest Exam: Positive: Clear to auscultation, Diminished Heart Exam: Positive: Rate Normal, Regular Rhythm, Normal S1, Normal S2; Negative: Murmurs, Rubs Abdomen Exam: Positive: Normal bowel sounds, Soft; Negative: Tenderness, Hepatospenomegaly Extremity Exam: Negative: Clubbing, Cyanosis, Edema Skin Exam: Positive: Nl turgor and temperature; Negative: Breakdown, Lesion Neuro Exam: Positive: Normal Speech, Strength at 5/5 X4 ext, Normal Tone Psych Exam: Positive: Memory Intact, Oriented x 3 Assessment /Plan Assessment 69 year old morbidly obese female a resident of [facility] fell off the bed this morning and hurt her right knee and left buttock and low back and was not able to mobilize after the fall so was brought to the ED for evaluation. She reports that she rolled over in the bed during sleep and fell off the bed to the floor on her right knee. She tried to roll over to the left to try to get up when she hurt her left buttock and low back resulting in severe pain and muscle spasm and she could not move any more so was brought to the ED. Here she is complaining of dull aching pain about 8/10 in intensity at the low back center, left buttock and right knee. Her pain becomes sharp associated with muscle spasms when she tried to move or change position. Cervical CT in the ED did not show any injury. Xray of the knee, hip and lumber spine did not show any acute fracture, dislocation. She was unable to mobilize so could not go back to assisted living so was admitted for pain control and PT to help with mobilization. Inability to ambulate after fall due to severe pain pain control with IV toradol, norco, lidoderm patch, diclofenac tylenol PT/OT Diabetes: Will continue Levemir and lispro in sliding scale hypoglycemic protocol FS AC and HS Morbid obesity and BERYL use own CPAP/BIPAP Continuous pulse oximetry. Hypertension Valsartan, chlorthalidone, amlodipine Neuropathy Lyrica, cymbalta H/O DVT/PE eliquis Hyperlipidemia statin. Plan/VTE VTE Prophylaxis Ordered?: Yes VS, I&O, 24H, Fishbone Vital Signs/I&O Vital Signs Date Time Temp Pulse Resp B/P (MAP) Pulse Ox O2 Delivery O2 Flow Rate FiO2 09/29/19 06:00 98.2 73 19 171/71 (104) 96 Room Air I&O- Last 24 Hours up to 6 AM 09/29/19 06:00 Intake Total 2520 ml Output Total 200 ml Balance 2320 ml Laboratory Data 24H LABS Laboratory Tests 2 09/28/19 10:55: Nucleated Red Blood Cells % (auto) 0.0 09/28/19 11:02: POC Glucose (Misc Panel) 303H, POC Sodium (Misc Panel) 138, POC Potassium (Misc Panel) 3.4L, POC Chloride (Misc Panel) 101, POC Total CO2 (Misc Panel) 24.0, POC Blood Urea Nitrogen (Misc Panel 23, POC Ionized Calcium (Misc Panel) 4.6, POC Creatinine (Misc Panel) 1.0, POC Hematocrit (Misc Panel) 34.0L 09/28/19 16:31: Bedside Glucose (Misc Panel) 267H 09/28/19 20:22: Bedside Glucose (Misc Panel) 257H 09/29/19 06:21: Bedside Glucose (Misc Panel) 293H 09/29/19 06:47: Immature Granulocyte % (Auto) 0.4, Neutrophils (%) (Auto) 56.8, Lymphocytes (%) (Auto) 27.5, Monocytes (%) (Auto) 10.3H, Eosinophils (%) (Auto) 4.3H, Basophils (%) (Auto) 0.7, Neutrophils # (Auto) 3.2, Lymphocytes # (Auto) 1.6, Monocytes # (Auto) 0.6, Eosinophils # (Auto) 0.2, Basophils # (Auto) 0.0, Nucleated Red Blood Cells % (auto) 0.0, Anion Gap 8, Glomerular Filtration Rate 46.2, Calcium Level 8.8 CBC/BMP Laboratory Tests 09/28/19 10:55 09/29/19 06:47 LYN PITTMAN MD Sep 29, 2019 08:43
[2019-09-29 14:00] VITALS: BP 158/72
[2019-09-29] MEDS: DICLOFENAC EPOLAMINE 1.3 % PATCH TOP SCH ×2 (15:58→21:23)
[2019-09-29] MEDS: PRAVASTATIN 20 MG TAB PO SCH (21:25)
[2019-09-29] MEDS: **NOTE PATIENT COMMENT** MISC XX SCH (21:26)
[2019-09-29] MEDS: VALSARTAN 40MG TABLET (DIOVAN) PO SCH (21:26)
[2019-09-29 22:00] VITALS: BP 133/65
[2019-09-30] MEDS: NORCO, ANEXSIA 5/325MG TABLET (HYDROcodone/ACETAMINOPHEN) PO PRN ×3 (04:29→18:42)
[2019-09-30 06:00] VITALS: BP 135/65
[2019-09-30 06:58] LABS: EOS # 0.2 10^3/uL (0.0-0.5); EOS % 4.1 % (0.0-3.0); HEMATOCRIT 32.6 % (36.0-47.0); HEMOGLOBIN 10.6 g/dl (12.0-15.5); LYMPH # 1.8 10^3/uL (1.5-5.0); LYMPH % 43.8 % (24.0-44.0); MEAN CORPUSCULAR HEMOGLOBIN 28.5 pg (27.0-33.0); MEAN CORPUSCULAR HGB CONC 32.5 g/dl (32.0-36.5); MEAN CORPUSCULAR VOLUME 87.6 fl (80.0-96.0); MONO # 0.4 10^3/uL (0.0-0.8); MONO % 9.9 % (0.0-5.0); NEUTROPHILS # 1.7 10^3/uL (1.5-8.5); NEUTROPHILS % 40.7 % (36.0-66.0); PLATELET COUNT, AUTOMATED 220 10^3/uL (150-450); RED BLOOD COUNT 3.72 10^6/uL (4.00-5.40); WHITE BLOOD COUNT 4.2 10^3/uL (4.0-10.0)
[2019-09-30 07:24] LABS: CALCIUM LEVEL 8.5 MG/DL (8.8-10.2); CREATININE FOR GFR 1.08 MG/DL (0.55-1.30); GLOMERULAR FILTRATION RATE 53.7 (>45); POTASSIUM SERUM 3.8 MEQ/L (3.5-5.1)
[2019-09-30] MEDS: PREGABALIN 75 MG CAP(LYRICA) PO SCH ×2 (08:55→21:54)
[2019-09-30] MEDS: DULoxetine 30 MG CAP (CYMBALTA) PO SCH ×2 (08:56→21:54)
[2019-09-30] MEDS: CHLORTHALIDONE 25 MG TAB PO SCH (08:56)
[2019-09-30] MEDS: APIXABAN 5 MG TAB (ELIQUIS) PO SCH ×2 (08:56→21:54)
[2019-09-30] MEDS: OMEPRAZOLE 20 MG CAP PO SCH (08:56)
[2019-09-30] MEDS: HumaLOG INSULIN (NovoLOG) PER UNIT SC SCH ×4 (08:57→21:55)
[2019-09-30] MEDS: amLODIPine 5 MG TAB PO SCH (08:57)
[2019-09-30] MEDS: LEVEMIR (INSULIN DETEMIR) 1 UNITS/0.01ML SC SCH ×2 (08:57→21:54)
[2019-09-30] MEDS: LIDOCAINE 5% (LIDODERM) PATCH TD SCH (08:58)
[2019-09-30] MEDS: DICLOFENAC EPOLAMINE 1.3 % PATCH TOP SCH ×2 (08:59→21:58)
[2019-09-30] MEDS ORDERED: LIDO5TD TD (10:49)
[2019-09-30] MEDS ORDERED: DICL1PAT6 TOP (10:49)
[2019-09-30] MEDS ORDERED: HYDR-3715 PO (10:49)
--- NOTE | 2019-09-30 13:57 | IPNPDOC ---
Subjective Date Seen The patient was seen on 09/30/19. Subjective Chief Complaint/HPI Continues to have severe pain in the knee and unable to bear weight. Also has back pain. No fever or chills, no chest pain or SOB. Objective Physical Examination General Exam: Positive: Alert, Cooperative, Mild Distress Eye Exam: Positive: PERRLA, Conjunctiva & lids normal, EOMI; Negative: Sclera icteric ENT Exam: Positive: Atraumatic, Mucous membr. moist/pink, Pharynx Normal Neck Exam: Positive: Supple; Negative: JVD, thyromegaly Chest Exam: Positive: Clear to auscultation, Diminished Heart Exam: Positive: Rate Normal, Regular Rhythm, Normal S1, Normal S2; Negative: Murmurs, Rubs Abdomen Exam: Positive: Normal bowel sounds, Soft; Negative: Tenderness, Hepatospenomegaly Extremity Exam: Negative: Clubbing, Cyanosis, Edema Skin Exam: Positive: Nl turgor and temperature; Negative: Breakdown, Lesion Neuro Exam: Positive: Normal Speech, Strength at 5/5 X4 ext, Normal Tone Psych Exam: Positive: Memory Intact, Oriented x 3 Assessment /Plan Assessment 69 year old morbidly obese female a resident of [facility] fell off the bed this morning and hurt her right knee and left buttock and low back and was not able to mobilize after the fall so was brought to the ED for evaluation. She reports that she rolled over in the bed during sleep and fell off the bed to the floor on her right knee. She tried to roll over to the left to try to get up when she hurt her left buttock and low back resulting in severe pain and muscle spasm and she could not move any more so was brought to the ED. Here she is complaining of dull aching pain about 8/10 in intensity at the low back center, left buttock and right knee. Her pain becomes sharp associated with muscle spasms when she tried to move or change position. Cervical CT in the ED did not show any injury. Xray of the knee, hip and lumber spine did not show any acute fracture, disloca tion. She was unable to mobilize so could not go back to assisted living so was admitted for pain control and PT to help with mobilization. Inability to ambulate after fall due to severe pain in the knee, hip and back. pain control with IV toradol, norco, lidoderm patch, diclofenac tylenol will get MRI of Knee. Xray of knee OA, Hip Xray: Asymmetric hip joint space narrowing is present. There is no acute fracture, dislocation, or subluxation Lumber Spine: Vertebral body height and alignment is within normal limits. Degenerative facet joint changes are present at every level bilaterally. There is no plain radiographic evidence of an acute fracture. PT/OT Diabetes: Will continue Levemir and lispro in sliding scale hypoglycemic protocol FS AC and HS Morbid obesity and BERYL use CPAP/BIPAP Continuous pulse oximetry. Hypertension Valsartan, chlorthalidone, amlodipine Neuropathy Lyrica, cymbalta H/O DVT/PE eliquis Hyperlipidemia statin. Plan/VTE VTE Prophylaxis Ordered?: Yes VS, I&O, 24H, Fishbone Vital Signs/I&O Vital Signs Date Time Temp Pulse Resp B/P (MAP) Pulse Ox O2 Delivery O2 Flow Rate FiO2 09/30/19 12:00 18 09/30/19 08:57 88 135/70 09/30/19 06:00 98.2 95 Room Air I&O- Last 24 Hours up to 6 AM 09/30/19 05:59 Intake Total 2720 ml Output Total 1600 ml Balance 1120 ml Laboratory Data 24H LABS Laboratory Tests 2 09/29/19 16:18: Bedside Glucose (Misc Panel) 288H 09/29/19 20:06: Bedside Glucose (Misc Panel) 269H 09/30/19 06:35: Immature Granulocyte % (Auto) 0.5, Neutrophils (%) (Auto) 40.7, Lymphocytes (%) (Auto) 43.8, Monocytes (%) (Auto) 9.9H, Eosinophils (%) (Auto) 4.1H, Basophils (%) (Auto) 1.0, Neutrophils # (Auto) 1.7, Lymphocytes # (Auto) 1.8, Monocytes # (Auto) 0.4, Eosinophils # (Auto) 0.2, Basophils # (Auto) 0.0, Nucleated Red Blood Cells % (auto) 0.0, Anion Gap 8, Glomerular Filtration Rate 53.7, Calcium Level 8.5L 09/30/19 11:27: Bedside Glucose (Misc Panel) 340H CBC/BMP Laboratory Tests 09/30/19 06:35 LYN PITTMAN MD Sep 30, 2019 13:57
[2019-09-30 14:00] VITALS: BP 144/54
[2019-09-30] MEDS: PRAVASTATIN 20 MG TAB PO SCH (21:54)
[2019-09-30] MEDS: **NOTE PATIENT COMMENT** MISC XX SCH (21:58)
[2019-09-30 22:00] VITALS: BP 115/60
[2019-09-30] MEDS: VALSARTAN 40MG TABLET (DIOVAN) PO SCH (22:00)
[2019-10-01 01:30] VITALS: O2SAT 96
[2019-10-01 06:00] VITALS: BP 149/70
[2019-10-01 06:16] LABS: BASO # 0.1 10^3/uL (0.0-0.2); BASO % 1.2 % (0.0-1.0); EOS # 0.2 10^3/uL (0.0-0.5); EOS % 3.5 % (0.0-3.0); HEMATOCRIT 31.3 % (36.0-47.0); HEMOGLOBIN 10.5 g/dl (12.0-15.5); LYMPH % 40.4 % (24.0-44.0); MEAN CORPUSCULAR HGB CONC 33.5 g/dl (32.0-36.5); MEAN CORPUSCULAR VOLUME 86.5 fl (80.0-96.0); MONO # 0.5 10^3/uL (0.0-0.8); MONO % 9.6 % (0.0-5.0); NEUTROPHILS # 2.2 10^3/uL (1.5-8.5); NEUTROPHILS % 44.9 % (36.0-66.0); PLATELET COUNT, AUTOMATED 209 10^3/uL (150-450); RED BLOOD COUNT 3.62 10^6/uL (4.00-5.40); WHITE BLOOD COUNT 4.9 10^3/uL (4.0-10.0)
[2019-10-01 06:41] LABS: CALCIUM LEVEL 8.8 MG/DL (8.8-10.2); CREATININE FOR GFR 1.27 MG/DL (0.55-1.30); GLOMERULAR FILTRATION RATE 44.5 (>45); POTASSIUM SERUM 3.8 MEQ/L (3.5-5.1)
[2019-10-01] MEDS: HumaLOG INSULIN (NovoLOG) PER UNIT SC SCH ×4 (07:51→21:46)
[2019-10-01] MEDS: LEVEMIR (INSULIN DETEMIR) 1 UNITS/0.01ML SC SCH (07:52)
[2019-10-01] MEDS: amLODIPine 5 MG TAB PO SCH (07:58)
[2019-10-01] MEDS: OMEPRAZOLE 20 MG CAP PO SCH (07:59)
[2019-10-01] MEDS: PREGABALIN 75 MG CAP(LYRICA) PO SCH ×2 (07:59→21:41)
[2019-10-01] MEDS: APIXABAN 5 MG TAB (ELIQUIS) PO SCH ×2 (07:59→21:41)
[2019-10-01] MEDS: DULoxetine 30 MG CAP (CYMBALTA) PO SCH ×2 (07:59→21:41)
[2019-10-01] MEDS: CHLORTHALIDONE 25 MG TAB PO SCH (07:59)
[2019-10-01] MEDS: FLUTICASONE PROP 0.05% NASAL SPRAY 16 GM (FLONASE) NARES SCH (08:00)
[2019-10-01] MEDS: DICLOFENAC EPOLAMINE 1.3 % PATCH TOP SCH ×2 (08:00→21:43)
[2019-10-01] MEDS: LIDOCAINE 5% (LIDODERM) PATCH TD SCH (08:01)
[2019-10-01 10:06] VITALS: O2SAT 96
--- NOTE | 2019-10-01 12:07 | REP ---
Clinical: Trauma. Pain. Fall. Technique: AP and lateral views of the right tibia / fibula. Comparison: 09/18/2009 Findings: Advanced tricompartmental osteoarthritic degenerative changes to the knee noted. Advance stable arthritic degenerative changes at the ankle are noted and appear essentially unchanged compared to 2009. No obvious acute fracture or dislocation identified. Impression: 1. Advanced arthritic changes at the knee and ankle. 2. No obvious acute fracture dislocation identified. If trauma to the ankle is suspected complete ankle series should be considered for further investigation. Electronically Signed by Hussein Barbosa MD 10/01/2019 11:44 A
[2019-10-01 14:00] VITALS: BP 130/52
--- NOTE | 2019-10-01 16:11 | IPNPDOC ---
Text Note Date of Service The patient was seen on 10/01/19. NOTE Subjective: Pt with right knee and lower back pain. No CP/SOB/palpitations Objective: Vitals: (see below) General: No acute distress, laying comfortably in bed. HEENT: Moist mucous membranes. Neck: No JVD or lymphadenopathy Cardiac: RRR, No murmurs Pulm: Clear to auscultation b/l. No wheezing, rhonchi Abd: NT/ND + BS. obese Ext: No edema or cyanosis Right knee TTP. decreased ROM 2/2 pain. No erythema/warmth. No pain at the hips with int/ext rotation of b/l legs. Distal pulses intact. Cap refill <2sec Labs (see below) Assessment/Plan As per medical records: 69 year old morbidly obese female a resident of [facility] fell off the bed this morning and hurt her right knee and left buttock and low back and was not able to mobilize after the fall so was brought to the ED for evaluation. She reports that she rolled over in the bed during sleep and fell off the bed to the floor on her right knee. She tried to roll over to the left to try to get up when she hurt her left buttock and low back resulting in severe pain and muscle spasm and she could not move any more so was brought to the ED. Here she is complaining of dull aching pain about 8/10 in intensity at the low back center, left buttock and right knee. Her pain becomes sharp associated with muscle spasms when she tried to move or change position. Cervical CT in the ED did not show any injury. Xray of the knee, hip and lumber spine did not show any acute fracture, dislocation. She was unable to mobilize so could not go back to assisted living so was admitted for pain control and PT to help with mobilization. Inability to ambulate after fall due to severe pain in the knee, hip and back. pain control with IV toradol, norco, lidoderm patch, diclofenac tylenol will get MRI of Knee and L spine today Xray of knee OA; has chronic OA: told she needs to lose weight before knee replacement. Hip Xray: Asymmetric hip joint space narrowing is present. There is no acute fracture, dislocation, or subluxation Lumber Spine: Vertebral body height and alignment is within normal limits. Degenerative facet joint changes are present at every level bilaterally. There is no plain radiographic evidence of an acute fracture. PT/OT Diabetes: Will continue Levemir and lispro in sliding scale; increase levemir dose hypoglycemic protocol FS AC and HS Morbid obesity and BERYL use CPAP/BIPAP Continuous pulse oximetry. Hypertension Valsartan, chlorthalidone, amlodipine Neuropathy Lyrica, cymbalta H/O DVT/PE eliquis Hyperlipidemia statin. DVT prophy: Discussed with daughter (Mila) over phone [phone] VS,Cheryl, I+O VS, Yovanie, I+O Laboratory Tests 10/01/19 05:51 Vital Signs Date Time Temp Pulse Resp B/P (MAP) Pulse Ox O2 Delivery O2 Flow Rate FiO2 10/01/19 14:00 99.0 76 18 130/52 (78) 94 Room Air I&O- Last 24 Hours up to 6 AM 10/01/19 06:00 Intake Total 1480 ml Output Total 1200 ml Balance 280 ml ART CURRIE MD Oct 01, 2019 16:11
[2019-10-01] MEDS: NORCO, ANEXSIA 5/325MG TABLET (HYDROcodone/ACETAMINOPHEN) PO PRN ×2 (16:28→21:58)
[2019-10-01] MEDS: guaiFENesin ER 600 MG TAB PO SCH (17:51)
--- NOTE | 2019-10-01 18:43 | REP ---
Clinical: Cough . Comparison: 05/24/2019 . Findings: The mediastinum and cardiac silhouette are stable and within normal limits for portable technique. The lung xiao are clear without acute consolidation, effusion, or pneumothorax. Skeletal structures are intact. Impression: No acute cardiopulmonary process appreciated. Electronically Signed by Hussein Barbosa MD 10/01/2019 06:34 P
[2019-10-01] MEDS ORDERED: LEVEMIR (INSULIN DETEMIR) 1 UNITS/0.01ML SC SCH (21:00)
--- NOTE | 2019-10-01 21:12 | REPVR ---
PROCEDURE INFORMATION: Exam: MR Lumbar Spine Without Contrast. Exam date and time: 10/01/2019 8:19 PM Age: 69 years old Clinical indication: Pain; Lumbago; Additional info: Lower back pain S/P fall TECHNIQUE: Imaging protocol: Multiplanar magnetic resonance images of the lumbar spine without intravenous contrast. COMPARISON: MRI-LS SPINE W/O FOLL WITH CON 12/26/2018 7:25 PM FINDINGS: Patient motion. Vertebral body height and AP alignment is preserved. Multilevel disc desiccation and disc space narrowing. There is disc degenerative endplate signal. No evidence of discitis/osteomyelitis. Prior L4 and L5 laminectomy. Conus medullaris terminates at T12. There is prominent epidural fat posteriorly. There is clumping of intrathecal nerve roots greatest at the L4 and L5 levels. This is similar from prior study. L1-L2: Moderate to large disc bulge with bilateral facet joint arthropathy and prominent posterior epidural fat. There is moderate to severe central canal stenosis which is increased from prior examination. Mild right and moderate left foraminal stenosis. L2-L3: Moderate to large disc bulge with bilateral facet joint arthropathy and prominent posterior epidural fat. There is severe central canal stenosis which is increased from prior study. Moderate bilateral foraminal stenosis. L3-L4: Moderate disc bulge with bilateral facet joint arthropathy. No significant central canal stenosis. Moderate to severe right and moderate left foraminal stenosis. L4-L5. Prominent posterior endplate ridge extending into both neural foramen. No significant central canal stenosis. There is moderate bilateral foraminal stenosis. L5-S1: Disc osteophyte complex extending into the [id number]-left neural foramen. Bilateral facet joint arthropathy. There is tapering of the distal thecal sac secondary to prominent epidural fat which has increased from prior examination. Moderate right and [id number] left foraminal stenosis. IMPRESSION: 1. Clumping of intrathecal nerve roots greatest at the L4 and L5 levels compatible with arachnoiditis. Appearance is similar from prior study. 2. Moderate to severe central canal stenosis at L1-L2 and severe central canal stenosis at L2-L3. Stenosis has progressed at both levels. 3. Additional degenerative findings as above. Electronically signed by: Michele Pop On 10/01/2019 21:11:58 PM
[2019-10-01] MEDS: VALSARTAN 40MG TABLET (DIOVAN) PO SCH (21:42)
[2019-10-01] MEDS: PRAVASTATIN 20 MG TAB PO SCH (21:42)
[2019-10-01] MEDS: **NOTE PATIENT COMMENT** MISC XX SCH (21:43)
[2019-10-01 22:00] VITALS: BP 133/57
[2019-10-01 23:17] VITALS: O2SAT 97
[2019-10-02 06:00] VITALS: BP 132/59
[2019-10-02 06:29] LABS: BASO # 0.1 10^3/uL (0.0-0.2); BASO % 0.9 % (0.0-1.0); EOS # 0.1 10^3/uL (0.0-0.5); EOS % 2.2 % (0.0-3.0); HEMATOCRIT 31.5 % (36.0-47.0); HEMOGLOBIN 10.7 g/dl (12.0-15.5); LYMPH # 1.6 10^3/uL (1.5-5.0); MEAN CORPUSCULAR HEMOGLOBIN 29.1 pg (27.0-33.0); MEAN CORPUSCULAR VOLUME 85.6 fl (80.0-96.0); MONO # 0.5 10^3/uL (0.0-0.8); MONO % 8.9 % (0.0-5.0); NEUTROPHILS # 3.5 10^3/uL (1.5-8.5); NEUTROPHILS % 59.5 % (36.0-66.0); PLATELET COUNT, AUTOMATED 196 10^3/uL (150-450); RED BLOOD COUNT 3.68 10^6/uL (4.00-5.40); WHITE BLOOD COUNT 5.8 10^3/uL (4.0-10.0)
[2019-10-02 06:59] LABS: CALCIUM LEVEL 8.7 MG/DL (8.8-10.2); CREATININE FOR GFR 1.13 MG/DL (0.55-1.30); POTASSIUM SERUM 3.7 MEQ/L (3.5-5.1)
[2019-10-02] MEDS ORDERED: LEVEMIR (INSULIN DETEMIR) 1 UNITS/0.01ML SC SCH (09:00)
[2019-10-02] MEDS: DULoxetine 30 MG CAP (CYMBALTA) PO SCH ×2 (09:35→21:58)
[2019-10-02] MEDS: PREGABALIN 75 MG CAP(LYRICA) PO SCH ×2 (09:35→21:58)
[2019-10-02] MEDS: OMEPRAZOLE 20 MG CAP PO SCH (09:35)
[2019-10-02] MEDS: APIXABAN 5 MG TAB (ELIQUIS) PO SCH ×2 (09:36→21:57)
[2019-10-02] MEDS: guaiFENesin ER 600 MG TAB PO SCH ×2 (09:36→21:58)
[2019-10-02] MEDS: CHLORTHALIDONE 25 MG TAB PO SCH (09:36)
[2019-10-02] MEDS: amLODIPine 5 MG TAB PO SCH (09:38)
[2019-10-02] MEDS: LEVEMIR (INSULIN DETEMIR) 1 UNITS/0.01ML SC SCH ×2 (09:39→21:58)
[2019-10-02] MEDS: HumaLOG INSULIN (NovoLOG) PER UNIT SC SCH ×4 (09:40→21:59)
[2019-10-02] MEDS: FLUTICASONE PROP 0.05% NASAL SPRAY 16 GM (FLONASE) NARES SCH (09:40)
[2019-10-02] MEDS: LIDOCAINE 5% (LIDODERM) PATCH TD SCH (09:41)
[2019-10-02] MEDS: DICLOFENAC EPOLAMINE 1.3 % PATCH TOP SCH ×2 (09:41→21:59)
[2019-10-02] MEDS: CEFUROXIME 500 MG TAB PO SCH ×2 (13:12→21:58)
[2019-10-02 13:28] VITALS: O2SAT 95
--- NOTE | 2019-10-02 13:59 | IPNPDOC ---
Text Note Date of Service The patient was seen on 10/02/19. NOTE Subjective: Pt still with right knee and lower back pain. No CP/SOB/palpitati ons. + productive cough green sputum. Objective: Vitals: (see below) General: No acute distress, laying comfortably in bed. HEENT: Moist mucous membranes. Neck: No JVD or lymphadenopathy Cardiac: RRR, No murmurs Pulm: Clear to auscultation b/l. No wheezing, rhonchi Abd: NT/ND + BS. obese Ext: No edema or cyanosis Right knee TTP. decreased ROM 2/2 pain. No erythema/warmth. No pain at the hips with int/ext rotation of b/l legs. Distal pulses intact. Cap refill <2sec Labs (see below) Assessment/Plan As per medical records: 69 year old morbidly obese female a resident of [facility] fell off the bed this morning and hurt her right knee and left buttock and low back and was not able to mobilize after the fall so was brought to the ED for evaluation. She reports that she rolled over in the bed during sleep and fell off the bed to the floor on her right knee. She tried to roll over to the left to try to get up when she hurt her left buttock and low back resulting in severe pain and muscle spasm and she could not move any more so was brought to the ED. Here she is complaining of dull aching pain about 8/10 in intensity at the low back center, left buttock and right knee. Her pain becomes sharp associated with muscle spasms when she tried to move or change position. Cervical CT in the ED did not show any injury. Xray of the knee, hip and lumber spine did not show any acute fracture, dislocation. She was unable to mobilize so could not go back to assisted living so was admitted for pain control and PT to help with mobilization. Inability to ambulate after fall due to severe pain in the knee, hip and back. pain control with IV toradol, norco, lidoderm patch, diclofenac tylenol will get MRI of Knee pending MRI L spine (See above) Xray of knee OA; has chronic OA: told she needs to lose weight before knee replacement. Hip Xray: Asymmetric hip joint space narrowing is present. There is no acute fracture, dislocation, or subluxation Lumber Spine: Vertebral body height and alignment is within normal limits. Degenerative facet joint changes are present at every level bilaterally. There is no plain radiographic evidence of an acute fracture. PT/OT Ortho consulted. Productive cough - CXR negative for PNA - Sputum cx pend Started on Ceftin pend cx. Diabetes: Will continue Levemir and lispro in sliding scale; increase levemir dose to 75mg bid hypoglycemic protocol FS AC and HS Morbid obesity and BERYL use CPAP/BIPAP Continuous pulse oximetry. Hypertension Valsartan, chlorthalidone, amlodipine Neuropathy Lyrica, cymbalta H/O DVT/PE eliquis Hyperlipidemia statin. DVT prophy: Discussed with daughter (Mila) over phone [phone]; VS,Cheryl, I+O VS, Yovanie, I+O Laboratory Tests 10/02/19 06:13 Vital Signs Date Time Temp Pulse Resp B/P (MAP) Pulse Ox O2 Delivery O2 Flow Rate FiO2 10/02/19 13:28 95 Room Air 10/02/19 09:38 77 127/55 10/02/19 06:00 96.7 20 I&O- Last 24 Hours up to 6 AM 10/02/19 06:00 Intake Total 2200 ml Output Total 3000 ml Balance -800 ml ART CURRIE MD Oct 02, 2019 13:59
[2019-10-02 14:00] VITALS: BP 142/68
[2019-10-02] MEDS: NORCO, ANEXSIA 5/325MG TABLET (HYDROcodone/ACETAMINOPHEN) PO PRN (19:31)
[2019-10-02 21:00] VITALS: O2SAT 95
[2019-10-02] MEDS: PRAVASTATIN 20 MG TAB PO SCH (21:58)
[2019-10-02] MEDS: **NOTE PATIENT COMMENT** MISC XX SCH (21:59)
[2019-10-02] MEDS: VALSARTAN 40MG TABLET (DIOVAN) PO SCH (21:59)
[2019-10-02 22:00] VITALS: BP 128/58
[2019-10-03 06:00] VITALS: BP 120/66
[2019-10-03 06:22] LABS: BASO % 0.7 % (0.0-1.0); EOS # 0.2 10^3/uL (0.0-0.5); EOS % 2.8 % (0.0-3.0); HEMATOCRIT 32.7 % (36.0-47.0); LYMPH # 1.8 10^3/uL (1.5-5.0); LYMPH % 32.5 % (24.0-44.0); MEAN CORPUSCULAR HGB CONC 33.6 g/dl (32.0-36.5); MEAN CORPUSCULAR VOLUME 86.3 fl (80.0-96.0); MONO # 0.5 10^3/uL (0.0-0.8); MONO % 9.6 % (0.0-5.0); NEUTROPHILS # 2.9 10^3/uL (1.5-8.5); PLATELET COUNT, AUTOMATED 209 10^3/uL (150-450); RED BLOOD COUNT 3.79 10^6/uL (4.00-5.40); WHITE BLOOD COUNT 5.4 10^3/uL (4.0-10.0)
[2019-10-03 06:54] LABS: CALCIUM LEVEL 8.9 MG/DL (8.8-10.2); CREATININE FOR GFR 1.02 MG/DL (0.55-1.30); GLOMERULAR FILTRATION RATE 57.4 (>45); POTASSIUM SERUM 3.6 MEQ/L (3.5-5.1)
--- NOTE | 2019-10-03 09:01 | REP ---
LIMITED PELVIC MRI STUDY. HISTORY: Right hip and left buttock pain after a fall. Comparison radiographs September 28, 2019. TECHNIQUE: Study is limited because the patient was apparently in too much pain and to continue with the scan and only one sequence could be acquired, this being an axial T1 sequence. FINDINGS: Axial T1 weighted images show normal cortical and medullary bone signal intensity. No disruption is seen to suggest fracture on T1-weighted scans. No hematoma is seen. There is diverticulosis of the sigmoid colon. No mass or adenopathy is seen. IMPRESSION: Limited study, only a single sequence could be acquired due to patient tolerance. No traumatic abnormality seen. Consider CT study as it is a more rapid acquisition which may allow for patient tolerance. Electronically Signed by Pb Moran MD 10/03/2019 09:04 A
[2019-10-03] MEDS ORDERED: MORPHINE 4 MG/ML 1ML VIAL/SYRINGE (J2270) IV PRN (09:45)
[2019-10-03] MEDS: OMEPRAZOLE 20 MG CAP PO SCH (09:47)
[2019-10-03] MEDS: APIXABAN 5 MG TAB (ELIQUIS) PO SCH (09:47)
[2019-10-03] MEDS: CEFUROXIME 500 MG TAB PO SCH (09:47)
[2019-10-03] MEDS: DULoxetine 30 MG CAP (CYMBALTA) PO SCH (09:47)
[2019-10-03] MEDS: CHLORTHALIDONE 25 MG TAB PO SCH (09:47)
[2019-10-03] MEDS: guaiFENesin ER 600 MG TAB PO SCH (09:47)
[2019-10-03] MEDS: PREGABALIN 75 MG CAP(LYRICA) PO SCH (09:47)
[2019-10-03] MEDS: LEVEMIR (INSULIN DETEMIR) 1 UNITS/0.01ML SC SCH (09:48)
[2019-10-03 09:49] VITALS: BP 124/58
[2019-10-03] MEDS: FLUTICASONE PROP 0.05% NASAL SPRAY 16 GM (FLONASE) NARES SCH (09:49)
[2019-10-03] MEDS: HumaLOG INSULIN (NovoLOG) PER UNIT SC SCH (09:49)
[2019-10-03] MEDS: amLODIPine 5 MG TAB PO SCH (09:49)
[2019-10-03] MEDS: DICLOFENAC EPOLAMINE 1.3 % PATCH TOP SCH (09:50)
[2019-10-03] MEDS: LIDOCAINE 5% (LIDODERM) PATCH TD SCH (09:50)
[2019-10-03 10:46] VITALS: O2SAT 91
--- NOTE | 2019-10-03 11:20 | IPNPDOC ---
Text Note Date of Service The patient was seen on 10/03/19. NOTE Subjective: Pt still with right knee; did not tolerate MRI 2/2 pain with posi tioning. States she had itching with morphine; no severe reaction, and is willing to try it today prior to MRI. Ortho on consult No CP/SOB/palpitations. + productive cough green sputum; improving Objective: Vitals: (see below) General: No acute distress, laying comfortably in bed. HEENT: Moist mucous membranes. Neck: No JVD or lymphadenopathy Cardiac: RRR, No murmurs Pulm: Clear to auscultation b/l. No wheezing, rhonchi Abd: NT/ND + BS. obese Ext: No edema or cyanosis Right knee TTP. decreased ROM 2/2 pain. No erythema/warmth. No pain at the hips with int/ext rotation of b/l legs. Distal pulses intact. Cap refill <2sec Labs (see below) Assessment/Plan As per medical records: 69 year old morbidly obese female a resident of [facility] fell off the bed this morning and hurt her right knee and left buttock and low back and was not able to mobilize after the fall so was brought to the ED for evaluation. She reports that she rolled over in the bed during sleep and fell off the bed to the floor on her right knee. She tried to roll over to the left to try to get up when she hurt her left buttock and low back resulting in severe pain and muscle spasm and she could not move any more so was brought to the ED. Here she is complaining of dull aching pain about 8/10 in intensity at the low back center, left buttock and right knee. Her pain becomes sharp associated with muscle spasms when she tried to move or change position. Cervical CT in the ED did not show any injury. Xray of the knee, hip and lumber spine did not show any acute fracture, dislocation. She was unable to mobilize so could not go back to assisted living so was admitted for pain control and PT to help with mobilization. Inability to ambulate after fall due to severe pain in the knee, hip and back. pain control with IV toradol, norco, lidoderm patch, diclofenac tylenol MRI of Knee pending; pt did not tolerate yesterday; will try morphine/Percocet today MRI L spine (See above) Xray of knee OA; has chronic OA: told she needs to lose weight before knee replacement. Hip Xray: Asymmetric hip joint space narrowing is present. There is no acute fracture, dislocation, or subluxation Lumber Spine: Vertebral body height and alignment is within normal limits. Degenerative facet joint changes are present at every level bilaterally. There is no plain radiographic evidence of an acute fracture. PT/OT Ortho consulted. Productive cough - CXR negative for PNA - Sputum cx pend Started on Ceftin pend cx. Diabetes: Will continue Levemir and lispro in sliding scale; increase levemir dose to 75mg bid hypoglycemic protocol FS AC and HS Morbid obesity and BERYL use CPAP/BIPAP Continuous pulse oximetry. Hypertension Valsartan, chlorthalidone, amlodipine Neuropathy Lyrica, cymbalta H/O DVT/PE eliquis Hyperlipidemia statin. DVT prophy: Discussed with daughter (Mila) over phone [phone]; VS,Fishbone, I+O VS, Fishbone, I+O Laboratory Tests 10/03/19 06:10 Vital Signs Date Time Temp Pulse Resp B/P (MAP) Pulse Ox O2 Delivery O2 Flow Rate FiO2 10/03/19 10:46 91 Room Air 10/03/19 09:49 74 124/58 10/03/19 06:00 97.1 16 I&O- Last 24 Hours up to 6 AM 10/03/19 06:00 Intake Total 390 ml Output Total 2019 ml Balance -1630 ml ART CURRIE MD Oct 03, 2019 11:20
[2020-01-17] MEDS ORDERED: VOLT1GEL15 TD (13:04)
[2020-01-17] MEDS ORDERED: ADME100I2 (13:04)
[2020-01-17] MEDS ORDERED: LANTINJ4 SC (13:04)
[2020-01-17] MEDS ORDERED: LOSA50TA88 PO (13:04)
[2020-01-17] MEDS ORDERED: LANTINJ4 (13:04)
== END 2019-10-04 13:05 | disposition home or self-care (01) | DRG 552 ==
LOC: M ED 06:28 → M ED INP 12:25 → ENRESERV 13:40 → M MSPAV 14:30
PROVIDERS: ADMIT Internal Medicine Nephrology; ATTEND Internal Medicine
DX: M62.830 Muscle spasm of back (principal); Z68.42 Body mass index [BMI] 45.0-49.9, adult; G47.33 Obstructive sleep apnea (adult) (pediatric); E11.22 Type 2 diabetes mellitus with diabetic chronic kidney disease; J44.9 Chronic obstructive pulmonary disease, unspecified; G25.81 Restless legs syndrome; I12.9 Hypertensive chronic kidney disease with stage 1 through stage 4 chronic kidney disease, or unspecified chronic kidney disease; N18.9 Chronic kidney disease, unspecified; K21.9 Gastro-esophageal reflux disease without esophagitis; F32.9 Major depressive disorder, single episode, unspecified; F41.9 Anxiety disorder, unspecified; E78.5 Hyperlipidemia, unspecified; J30.9 Allergic rhinitis, unspecified; M17.0 Bilateral primary osteoarthritis of knee; M25.561 Pain in right knee; E55.9 Vitamin D deficiency, unspecified; E11.40 Type 2 diabetes mellitus with diabetic neuropathy, unspecified; E66.01 Morbid (severe) obesity due to excess calories; R26.2 Difficulty in walking, not elsewhere classified; M54.5 Low back pain; Z79.01 Long term (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 anticoagulants; Z79.4 Long term (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; Z79.899 Other long term (current) drug therapy; Z88.6 Allergy status to analgesic agent; Z88.8 Allergy status to other drugs, medicaments and biological substances; Z91.040 Latex allergy status; Z91.048 Other nonmedicinal substance allergy status; Z88.5 Allergy status to narcotic agent; Z74.09 Other reduced mobility

== ENCOUNTER → 2019-10-11 | Outpatient (REF) | payer MEDICARE, MEDICAID ==
[~2019-10-11] MED LIST changes: +ADME100I2; +BASA100I SC; +CHLO25TA PO; +DICL1PAT6 TOP; +HYDR-3715 PO; +LANTINJ4; +LOSA50TA88 PO; +NOVOINJ3 SC; +PREG150C PO; +VALS1TAB66 PO; +VASC1CAP2 PO; +VOLT1GEL15 TD
[2019-11-25 15:20] LABS: CALCIUM LEVEL 9.1 MG/DL (8.8-10.2); CREATININE FOR GFR 1.03 MG/DL (0.55-1.30); GLOMERULAR FILTRATION RATE 56.7 (>45); POTASSIUM SERUM 3.8 MEQ/L (3.5-5.1)
== END ==
PROVIDERS: ATTEND Internal Medicine
DX: Z79.01 Long term (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 anticoagulants (principal)

== ENCOUNTER → 2019-10-14 | Outpatient (REF) | payer MEDICARE, MEDICAID ==
[2019-11-17 03:21] LABS: HEMATOCRIT 50.7 % (36.0-47.0); HEMOGLOBIN 16.9 g/dl (12.0-15.5); MEAN CORPUSCULAR HEMOGLOBIN 29.3 pg (27.0-33.0); MEAN CORPUSCULAR HGB CONC 33.3 g/dl (32.0-36.5); MEAN CORPUSCULAR VOLUME 87.9 fl (80.0-96.0); PLATELET COUNT, AUTOMATED 130 10^3/uL (150-450); RED BLOOD COUNT 5.77 10^6/uL (4.00-5.40); WHITE BLOOD COUNT 6.1 10^3/uL (4.0-10.0)
[2019-12-03 12:48] LABS: CREATININE FOR GFR 1.03 MG/DL (0.55-1.30); GLOMERULAR FILTRATION RATE 56.7 (>45); POTASSIUM SERUM 3.8 MEQ/L (3.5-5.1)
== END ==
PROVIDERS: ATTEND Internal Medicine
DX: E11.9 Type 2 diabetes mellitus without complications (principal); Z79.4 Long term (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; Z79.01 Long term (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 anticoagulants; R06.9 Unspecified abnormalities of breathing

== ENCOUNTER → 2019-10-22 | Outpatient (REF) | PROVIDERS: ATTEND Physician Assistant | DX: Z20.828 Contact with and (suspected) exposure to other viral communicable diseases (principal) ==

== ENCOUNTER → 2019-12-11 | Outpatient (RCR) | payer OTHER, MEDICAID | END | disposition home or self-care (01) | LOC: M PT 08:45 | PROVIDERS: ATTEND Physician Assistant Medical | DX: R29.6 Repeated falls (principal) ==

== ENCOUNTER 2020-01-09 09:15 | Outpatient (RCR) | payer OTHER, MEDICAID ==
[~2020-01-09 09:15] MED LIST changes: -ADME100I2; -LANTINJ4; -LOSA50TA88 PO; -VOLT1GEL15 TD
== END 2020-01-11 ==
LOC: M PT 09:15
PROVIDERS: ATTEND Physician Assistant Medical
DX: R29.6 Repeated falls (principal)

== ENCOUNTER → 2020-01-16 | Outpatient (CLI) | payer OTHER, MEDICAID ==
[~2020-01-16] MED LIST changes: +ADME100I2; +LANTINJ4; +LOSA50TA88 PO; +VOLT1GEL15 TD
== END ==
LOC: M LABSMTC 10:01
PROVIDERS: ATTEND Anesthesiology
DX: Z01.812 Encounter for preprocedural laboratory examination (principal); Z20.828 Contact with and (suspected) exposure to other viral communicable diseases
CPT/HCPCS: C9803; U0003

== ENCOUNTER → 2020-01-17 | Outpatient (REF) | payer OTHER, MEDICAID ==
[2020-01-17 10:56] LABS: BASO # 0.1 10^3/uL (0.0-0.2); BASO % 0.9 % (0.0-1.0); EOS # 0.1 10^3/uL (0.0-0.5); EOS % 2.5 % (0.0-3.0); HEMOGLOBIN 11.9 g/dl (12.0-15.5); LYMPH # 2.2 10^3/uL (1.5-5.0); LYMPH % 38.9 % (24.0-44.0); MEAN CORPUSCULAR HEMOGLOBIN 28.1 pg (27.0-33.0); MEAN CORPUSCULAR HGB CONC 33.1 g/dl (32.0-36.5); MEAN CORPUSCULAR VOLUME 85.1 fl (80.0-96.0); MONO # 0.6 10^3/uL (0.0-0.8); MONO % 10.5 % (0.0-5.0); NEUTROPHILS # 2.6 10^3/uL (1.5-8.5); NEUTROPHILS % 46.8 % (36.0-66.0); PLATELET COUNT, AUTOMATED 241 10^3/uL (150-450); RED BLOOD COUNT 4.23 10^6/uL (4.00-5.40); WHITE BLOOD COUNT 5.6 10^3/uL (4.0-10.0)
[2020-01-17 11:03] LABS: INR 0.92; PARTIAL THROMBOPLASTIN TIME 23.2 SECONDS (24.2-38.5); PROTHROMBIN TIME 12.6 SECONDS (12.5-14.3)
[2020-01-17 11:21] LABS: ALBUMIN 3.6 GM/DL (3.2-5.2); BILIRUBIN,TOTAL 0.3 MG/DL (0.2-1.0); CREATININE FOR GFR 1.18 MG/DL (0.55-1.30); GLOMERULAR FILTRATION RATE 48.5 (>45); POTASSIUM SERUM 3.9 MEQ/L (3.5-5.1); TOTAL PROTEIN 6.8 GM/DL (6.4-8.2)
[2020-01-17 11:27] LABS: PTH INTACT 60.5 PG/ML (18.5-88.0)
[2020-01-17 11:35] LABS: HEMOGLOBIN A1c 8.8 %
== END ==
PROVIDERS: ATTEND Family Medicine
DX: E11.22 Type 2 diabetes mellitus with diabetic chronic kidney disease (principal); N18.30 Chronic kidney disease, stage 3 unspecified; Z86.711 Personal history of pulmonary embolism; Z79.899 Other long term (current) drug therapy; Z01.812 Encounter for preprocedural laboratory examination

== ENCOUNTER → 2020-01-20 | Outpatient (CLI) | payer OTHER, MEDICAID | LOC: M LABSMTC 12:07 | PROVIDERS: ATTEND Anesthesiology | DX: Z11.59 Encounter for screening for other viral diseases (principal) | CPT/HCPCS: C9803; U0002 ==

== ENCOUNTER 2020-01-21 11:50 | Day surgery (SDC) | payer OTHER, MEDICAID ==
[~2020-01-21] VITALS: Ht 167.6 cm; Wt 131.1 kg
[~2020-01-21 11:50] MED LIST changes: +NS 1,000 ML IV ONE
[2020-01-21] MEDS ORDERED: LIDOCAINE 2% 100MG/5ML SDV (FOR ANES.) As Ordered ONE (12:26)
[2020-01-21] MEDS ORDERED: propofoL 200 MG/20 ML VIAL As Ordered ONE ×2 (12:26→13:37)
[2020-01-21] MEDS ORDERED: fentaNYL 100 MCG/2 ML INJECTION (J3010) As Ordered ONE (12:27)
[2020-01-21] MEDS ORDERED: GLUCAGON INJ 1MG VIAL As Ordered ONE (13:45)
--- NOTE | 2020-01-21 14:01 | ROOR ---
Patient Name: Angelita Paz Procedure Date: 01/21/2020 1:03 PM Date of : 1950 Age: 69 Room: [facility] Gender: Female Note Status: Finalized Procedure: Upper GI endoscopy Indications: Melena Providers: Shoaib LANDAVERDE MD Referring MD: Hilda HARRINGTON Requesting Provider: Medicines: Monitored Anesthesia Care Complications: No immediate complications. Procedure: Pre-Anesthesia Assessment: - The heart rate, respiratory rate, oxygen saturations, blood pressure, adequacy of pulmonary ventilation, and response to care were monitored throughout the procedure. The Endoscope was introduced through the mouth, and advanced to the second part of duodenum. The upper GI endoscopy was accomplished without difficulty. The patient tolerated the procedure well. Findings: Very small (insignificant) Hiatal Hernia. The esophagus was normal. The stomach was normal. (large volume) The examined duodenum was normal. Impression: - Very small (insignificant) Hiatal Hernia. - Normal esophagus. - Normal stomach. - Normal examined duodenum. - No specimens collected. Recommendation: - Observe patient's clinical course. Shoaib Landaverde MD Shoaib LANDAVERDE MD 01/21/2020 2:00:46 PM Electronically signed by Shoaib LANDAVERDE MD Number of Addenda: 0 Note Initiated On: 01/21/2020 1:03 PM Estimated Blood Loss: Estimated blood loss: none.
--- NOTE | 2020-01-21 14:07 | ROOR ---
Patient Name: Angelita Paz Procedure Date: 01/21/2020 1:04 PM Date of : 1950 Age: 69 Room: [facility] Gender: Female Note Status: Finalized Procedure: Colonoscopy Indications: Hematochezia Providers: Shoaib LANDAVERDE MD Referring MD: Hilda HARRINGTON Requesting Provider: Medicines: Monitored Anesthesia Care Complications: No immediate complications. Procedure: Pre-Anesthesia Assessment: - The heart rate, respiratory rate, oxygen saturations, blood pressure, adequacy of pulmonary ventilation, and response to care were monitored throughout the procedure. The Colonoscope was introduced through the anus and advanced to the cecum, identified by appendiceal orifice and ileocecal valve. The colonoscopy was somewhat difficult due to unsatisfactory bowel prep. Successful completion of the procedure was aided by lavage. The patient tolerated the procedure well. The quality of the bowel preparation was adequate. Findings: The perianal and digital rectal examinations were normal. A 25 mm polypoid lesion was found at the hepatic flexure. The lesion was polypoid. No bleeding was present. The polyp was removed with a lift and cut technique using a cold snare and The polyp was removed with a piecemeal technique using a cold snare. Polyp resection was incomplete, and the resected tissue was partially retrieved. Area was tattooed with an injection of Brianna ink. Multiple medium-mouthed diverticula were found in the sigmoid colon. Internal hemorrhoids were found during retroflexion. The hemorrhoids were medium-sized. Impression: - Likely benign 2.5 cm sessile polypoid lesion at the hepatic flexure. Tissue was removed piecemeal with cold snare. Resection likely INCOMPLETE. Location Tattooed. - Diverticulosis in the sigmoid colon. - Internal hemorrhoids. Recommendation: - If the pathology report reveals adenomatous tissue, then repeat the colonoscopy for surveillance after piecemeal polypectomy in 6 months. - Resume Eliquis (apixaban) at prior dose in 3 days. Refer to referring physician for further adjustment of therapy. Shoaib Landaverde MD Shoaib LANDAVERDE MD 01/21/2020 2:06:52 PM Electronically signed by Shoaib LANDAVERDE MD Number of Addenda: 0 Note Initiated On: 01/21/2020 1:04 PM Estimated Blood Loss: Estimated blood loss: none.
[2020-01-21 14:30] VITALS: BP 126/60
== END 2020-01-21 14:55 | disposition home or self-care (01) ==
LOC: M OPP 11:50
PROVIDERS: ATTEND Internal Medicine Gastroenterology
DX: D49.0 Neoplasm of unspecified behavior of digestive system (principal); K57.30 Diverticulosis of large intestine without perforation or abscess without bleeding; K92.1 Melena; E11.9 Type 2 diabetes mellitus without complications; J44.9 Chronic obstructive pulmonary disease, unspecified; Z79.4 Long term (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; Z79.82 Long term (current) use of aspirin; Z79.899 Other long term (current) drug therapy; Z91.040 Latex allergy status; Z88.8 Allergy status to other drugs, medicaments and biological substances; Z88.5 Allergy status to narcotic agent; Z80.0 Family history of malignant neoplasm of digestive organs; Z87.891 Personal history of nicotine dependence
CPT/HCPCS: 43235; 45381; 45385; 88305; J1610; J3010

== ENCOUNTER → 2020-02-11 | Outpatient (REF) | payer OTHER, MEDICAID ==
[~2020-02-11] MED LIST changes: +ACET-838 PO; +ADME100I SC; +HYDR-3713 PO; +MILKSUS3 PO; -NS 1,000 ML IV ONE; +PREG200C PO; +THERTAB52 PO; -VOLT1GEL15 TD; +VOLT1GEL15 TOP
== END ==
LOC: EDSTATUS 09:22
PROVIDERS: ATTEND Physician Assistant Medical
DX: Z20.828 Contact with and (suspected) exposure to other viral communicable diseases (principal)

== ENCOUNTER → 2020-02-21 | Outpatient (REF) | payer OTHER, MEDICAID | PROVIDERS: ATTEND Internal Medicine | DX: Z20.828 Contact with and (suspected) exposure to other viral communicable diseases (principal) | CPT/HCPCS: G0463; U0003 ==

== ENCOUNTER 2020-02-23 04:20 | Emergency (ER) | payer OTHER, MEDICAID ==
[~2020-02-23 04:20] MED LIST changes: -ACET-838 PO; -ADME100I SC; -HYDR-3713 PO; -MILKSUS3 PO; -PREG200C PO; -THERTAB52 PO
[2020-02-23 05:28] LABS: BASO # 0.1 10^3/uL (0.0-0.2); BASO % 0.7 % (0.0-1.0); EOS # 0.1 10^3/uL (0.0-0.5); EOS % 1.3 % (0.0-3.0); HEMATOCRIT 35.1 % (36.0-47.0); HEMOGLOBIN 11.3 g/dl (12.0-15.5); LYMPH # 2.7 10^3/uL (1.5-5.0); LYMPH % 39.3 % (24.0-44.0); MEAN CORPUSCULAR HEMOGLOBIN 27.4 pg (27.0-33.0); MEAN CORPUSCULAR HGB CONC 32.2 g/dl (32.0-36.5); MEAN CORPUSCULAR VOLUME 85.2 fl (80.0-96.0); MONO # 0.6 10^3/uL (0.0-0.8); MONO % 7.9 % (0.0-5.0); NEUTROPHILS # 3.5 10^3/uL (1.5-8.5); NEUTROPHILS % 50.5 % (36.0-66.0); PLATELET COUNT, AUTOMATED 245 10^3/uL (150-450); RED BLOOD COUNT 4.12 10^6/uL (4.00-5.40); WHITE BLOOD COUNT 6.9 10^3/uL (4.0-10.0)
[2020-02-23] MEDS ORDERED: ACETAMINOPHEN TAB 650MG DOSE (2X325MG) PO ONE (05:30)
[2020-02-23 05:51] LABS: ALBUMIN 3.5 GM/DL (3.2-5.2); ALT/SGPT 47 U/L (12-78); BILIRUBIN,DIRECT < 0.1 MG/DL (0.0-0.2); BILIRUBIN,TOTAL 0.4 MG/DL (0.2-1.0); BLOOD UREA NITROGEN 21 MG/DL (7-18); CALCIUM LEVEL 8.8 MG/DL (8.8-10.2); CARBON DIOXIDE LEVEL 27 MEQ/L (21-32); CHLORIDE LEVEL 103 MEQ/L (98-107); CK-MB VALUE MASS 1.5 NG/ML (<3.6); CPK CREATINE PHOSPHOKINASE 165 U/L (26-192); CREATININE FOR GFR 1.17 MG/DL (0.55-1.30); GLUCOSE, FASTING 260 MG/DL (70-100); MB/CK RELATIVE INDEX 0.91 (< OR =4); NT-PRO BNP 360 PG/ML (<125); POTASSIUM SERUM 3.5 MEQ/L (3.5-5.1); SODIUM LEVEL 139 MEQ/L (136-145); TOTAL PROTEIN 6.8 GM/DL (6.4-8.2); TROPONIN I < 0.02 NG/ML (< 0.10)
[2020-02-23] MEDS: COMBIVENT RESPIMAT 100-20MCG INHALER 4GM INH SCH ×3 (05:58→06:19)
[2020-02-23 06:33] LABS: RSV AMPLIFICATION NEGATIVE (NEGATIVE)
[2020-02-23] MEDS ORDERED: PREG200C PO (06:50)
[2020-02-23] MEDS ORDERED: ADME100I SC (06:50)
[2020-02-23] MEDS ORDERED: PROAAER10 INH (06:50)
[2020-02-23] MEDS ORDERED: MILKSUS3 PO (06:50)
[2020-02-23] MEDS ORDERED: ADV100INH INH (06:50)
[2020-02-23] MEDS ORDERED: THERTAB52 PO (06:50)
[2020-02-23] MEDS ORDERED: HYDR-3713 PO (06:50)
[2020-02-23] MEDS ORDERED: ACET-838 PO (06:50)
--- NOTE | 2020-02-23 08:23 | REP ---
INDICATION: DYSPNEA/COUGH. COMPARISON: 10/14/2019. TECHNIQUE: SINGLE PORTABLE AP VIEW OF THE CHEST WAS PERFORMED. FINDINGS: THERE IS NO ACUTE INFILTRATE OR PULMONARY EDEMA. LUNGS ARE CLEAR. HEART IS NOT SIGNIFICANTLY ENLARGED. MEDIASTINAL SILHOUETTE IS UNREMARKABLE. THE VISUALIZED OSSEOUS STRUCTURES ARE INTACT. IMPRESSION: NO ACUTE PULMONARY DISEASE. <Electronically signed by Harry Mota > 02/23/20 [id number]
[2020-02-23] MEDS ORDERED: NORCO, ANEXSIA 5/325MG TABLET (HYDROcodone/ACETAMINOPHEN) PO ONE (08:45)
--- NOTE | 2020-02-23 09:00 | ECGEPIP ---
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
[2020-02-23 10:54] VITALS: BP 113/65
== END 2020-02-23 11:48 | disposition home or self-care (01) ==
LOC: M ED 04:20
DX: J44.9 Chronic obstructive pulmonary disease, unspecified (principal); E11.9 Type 2 diabetes mellitus without complications; I12.9 Hypertensive chronic kidney disease with stage 1 through stage 4 chronic kidney disease, or unspecified chronic kidney disease; N18.30 Chronic kidney disease, stage 3 unspecified; E78.5 Hyperlipidemia, unspecified; K21.9 Gastro-esophageal reflux disease without esophagitis; Z79.899 Other long term (current) drug therapy; Z79.4 Long term (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; Z79.01 Long term (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 anticoagulants; Z88.1 Allergy status to other antibiotic agents; Z88.5 Allergy status to narcotic agent; Z88.8 Allergy status to other drugs, medicaments and biological substances; Z91.040 Latex allergy status; Z87.891 Personal history of nicotine dependence

== ENCOUNTER → 2020-02-26 | Outpatient (REF) | payer OTHER, MEDICAID ==
[~2020-02-26] MED LIST changes: +ACET-838 PO; +ADME100I SC; +HYDR-3713 PO; +MILKSUS3 PO; +PREG200C PO; +THERTAB52 PO
[2020-02-26 16:37] LABS: INFLUENZA A AMPLIFICATION NEGATIVE (NEGATIVE); INFLUENZA B AMPLIFICATION NEGATIVE (NEGATIVE)
== END ==
PROVIDERS: ATTEND Internal Medicine
DX: Z20.828 Contact with and (suspected) exposure to other viral communicable diseases (principal)
CPT/HCPCS: 87502; U0003

== ENCOUNTER → 2020-03-02 | Outpatient (REF) | payer OTHER, MEDICAID | PROVIDERS: ATTEND Internal Medicine | DX: Z20.828 Contact with and (suspected) exposure to other viral communicable diseases (principal) ==

== ENCOUNTER → 2020-03-09 | Outpatient (REF) | payer OTHER, MEDICAID | PROVIDERS: ATTEND Internal Medicine | DX: Z20.828 Contact with and (suspected) exposure to other viral communicable diseases (principal) ==

== ENCOUNTER → 2020-03-16 | Outpatient (REF) | payer OTHER, MEDICAID | PROVIDERS: ATTEND Internal Medicine | DX: Z11.52 Encounter for screening for COVID-19 (principal) ==

== ENCOUNTER → 2020-03-23 | Outpatient (REF) | payer OTHER, MEDICAID ==
[~2020-03-23] MED LIST changes: -LISI-542; -LISI-542 PO; +LISI-898; +LISI-898 PO; -LISI40TA PO; +LISI40TA4 PO; +PRED20TA PO; +PREG300C PO
== END ==
PROVIDERS: ATTEND Internal Medicine
DX: Z20.822 Contact with and (suspected) exposure to COVID-19 (principal)

== ENCOUNTER → 2020-03-30 | Outpatient (REF) | payer OTHER, MEDICAID | PROVIDERS: ATTEND Internal Medicine | DX: Z20.822 Contact with and (suspected) exposure to COVID-19 (principal) ==

== ENCOUNTER → 2020-04-06 | Outpatient (REF) | payer OTHER, MEDICAID | PROVIDERS: ATTEND Internal Medicine | DX: Z20.822 Contact with and (suspected) exposure to COVID-19 (principal) ==

== ENCOUNTER 2020-04-12 11:31 | Emergency (ER) | payer OTHER, MEDICAID ==
[~2020-04-12] VITALS: Ht 162.6 cm; Wt 137.3 kg
[~2020-04-12 11:31] MED LIST changes: +LISI-542; +LISI-542 PO; -LISI-898; -LISI-898 PO; +LISI40TA PO; -LISI40TA4 PO; -PRED20TA PO; -PREG300C PO
--- NOTE | 2020-04-12 12:39 | REP ---
INDICATION: chest pain. COMPARISON: Comparison chest x-ray February 23, 2020.. TECHNIQUE: Upright sitting AP portable chest x-ray. FINDINGS: The lungs are symmetrically aerated and free of infiltrate. Heart size is at the upper range of normal in size. Pulmonary vasculature is cephalized. There is no evidence of pleural effusion or pulmonary edema. No bony abnormality. IMPRESSION: Borderline heart size with cephalization. Otherwise negative portable chest x-ray. <Electronically signed by Jassi Moran > 04/12/20 [id number]
[2020-04-12 12:40] LABS: BASO # 0.1 10^3/uL (0.0-0.2); BASO % 0.8 % (0.0-1.0); EOS # 0.1 10^3/uL (0.0-0.5); EOS % 2.2 % (0.0-3.0); HEMOGLOBIN 10.8 g/dl (12.0-15.5); LYMPH # 2.2 10^3/uL (1.5-5.0); LYMPH % 36.6 % (24.0-44.0); MEAN CORPUSCULAR HEMOGLOBIN 27.4 pg (27.0-33.0); MEAN CORPUSCULAR HGB CONC 31.8 g/dl (32.0-36.5); MEAN CORPUSCULAR VOLUME 86.3 fl (80.0-96.0); MONO # 0.5 10^3/uL (0.0-0.8); MONO % 8.9 % (0.0-5.0); NEUTROPHILS % 51.2 % (36.0-66.0); PLATELET COUNT, AUTOMATED 195 10^3/uL (150-450); RED BLOOD COUNT 3.94 10^6/uL (4.00-5.40)
--- OUTSIDE RECORDS SUMMARY | 2020-04-12 13:01 | CCD | Continuity of Care Document ---
Author Author Angelita ESQUIVEL PA Organization Unknown Address [address] [place] [address], [address] [place] [address] Phone [phone] Care Team Providers Care Lab Technician Name Role Phone Ella Goins MD AUTM [phone] Hilda Castanon AUTM Problems Active Problems Provider Date Type 2 diabetes mellitus Onset: 09/11/19 16 Essential hypertension Onset: 09/11/2015 Pure hypercholesterolemia Ramon Mcconnell MD Onset: Social History Type Date Description Comments Sex Unknown ETOH Use Rarely consumes alcohol Tobacco Use Start: Unknown End: Unknown Patient is a former smoker Smoking Status Reviewed: 10/16/19 Patient is a former smoker Allergies, Adverse Reactions, Alerts Active Allergies Reaction Severity Comments Date Latex 09/11/2015 Adhesive 03/19/2019 Ibuprofen 03/19/2019 Metoprolol 03/19/2019 Morphine 03/19/2019 Quinolones 03/19/2019 Medications Active Medications SIG Qnty Indications Ordering Provide r Date Hydrocodone Bitartrate/Acetaminophen 5-325mg Tablets 1-2 tab by mouth every 4-6 hours as need ed. for post op pain(Please DO Not Fill Until 04/23/2019) 30tabs Ramon Mcconnell MD 04/23/2019 Fluzone High-Dose 0.5ml Jenny Inject 0.5ML Intramuscularly Unknown Prednisone 10mg Tablets Shoaib Mckeon MD Humalog 100Unit/ML Solution Inject 22 Units Before Breakfast Lunch And Dinner Start Tomorrow But Give Additional 10 Units Now For Dinner Unknown Basaglar Kwikpen 100 Unit/ML Solution Pen-Inject Hilda Castanon, RPA-C 0 Novolog Flexpen 100U nit/ML Solution Pen-Inject Hilda Castanon, RPA-C 0 Fluticasone Propionate 50mcg/Act Suspension Hilda Castanon, RPA-C 0 Losartan Potassium 50mg Tablets Take One Tablet By Mouth Every Day Unknown Miralax 3350NF Powder 17 grams in liquid as directed every day as needed Unknown Tramadol HCL 50mg Tablets 1 every 4-6 hours as needed pain Unknown Proair HFA 108(90Base) mcg/Act Aerosol Unknown Acetaminophen 325mg Tablets Unknown Milk Of Magnesia 400mg/5ML Suspension Unknown Potassium Chloride ER 20Meq Tablets ER Unknown Voltaren 1% Gel apply to affected area three times a day Unknown Aspercreme W/Lidocaine 4% Cream apply to great toe of right foot Unknown 00 Fluticasone Propionate Nasal [place] 24- H our 50mcg/Act Suspension 2 sprays Unknown Multivitamins Capsules Unknown Drisdol 1.25mg (77608 Ut) Capsules take 1 tab by mouth every week Unknown 00 Chlorthalidone 50mg Tablets 1 by mouth every day Unknown Omeprazole 40mg Capsules DR Unknown Amlodipine Besylate 5mg Tablets Unknown Lantus 100Unit/ML Solution inject subcutaneously 20 units once a day as directed U nknown Cymbalta 60mg Caps DR Part 1 by mouth every day Unknown Pregabalin 75mg Capsules 1 by mouth twice a day Unknown Eliquis 5mg Tablets Unknown Valsartan 40mg Tablets Unknown Humalog Kwikpen 100U nit/ML Solution Pen-Inject use as directed three times daily- Unknow n Victoza 18mg/3ML Solution Pen-Inje ct 1.8 mg subcutaneous injection, once daily. maximum daily dose 1.8. please dispense 3 pens Unknown Acetaminophen ER 650mg Tablets ER take 2 tablets every 8 hours for pain Unknown 0 Fenofibrate 160mg Tablets 1 by mouth every day Unknown Pravastatin Sodium 40mg Tablets 1 by mouth every day Unknown Immunizations Description No Information Available Vital Signs Date Vital Result Comment 04/08/2020 12:16pm Body Temperature 96.8 F Height 60 inches 5'0" Weight 302.00 lb BMI (Body Mass Index) 59.0 kg/m2 10/16/2019 2:53pm Body Temperature 97.7 F Height 66 inches 5'6" Weight 288.00 lb BMI (Body Mass Index) 46.5 kg/m2 Results Description No Information Available Procedures Date Code Description Status 04/08/2020 14674 X-Ray Hand Three Views Completed 10/16/2019 48799 X-Ray Knee Complete W/Obliques & Tunnel And/Or Standing Views Completed Medical Devices Description No Information Available Encounters Description No Information Available Assessments Date Code Description Provider 04/08/2020 M79.641 Pain in right hand BEV Shoemaker 04/08/2020 R22.31 Localized swelling, mass and lum p, right upper limb BEV Palacios 10/16/2019 M25.561 Pain in right knee BEV Shoemaker 10/16/2019 M17.11 Unilateral primary osteoarthriti s, right knee BEV Palacios Plan of Treatment 04/08/2020 - BEV Palacios* M79.641 Pain in right hand* New Xrays:* MRI Right Hand, Ordered: 04/08/20 * Follow up:* mri results right hand with iid TELEMED APPT * R22.31 Localized swelling, mass and lump, right upper limb Functional Status Description No Information Available Mental Status Description No Information Available Referrals Description No Information Available
--- OUTSIDE RECORDS SUMMARY | 2020-04-12 13:01 | CCD ---
Author Author [facility] Organization [facility] Address Unknown Phone Unavailable Care Team Providers Care Quarry Worker Name Role Phone Hilda Castanon Unavailable PROBLEMS Type Condition ICD9-CM Code [id number] Code Onset Dates Condition S tatus SNOMED Code Notes Problem Rheumatoid factor positive R76.8 Active 96181 9004 Problem Trigger finger of both hands M65.30 Active 156 [id number] Problem Arthralgia, unspecified joint M25.50 Active 57 672440 Problem Hyperplastic colonic polyp, unspecified part of colon K63.5 Active 933210436 Problem Current mild episode of kirby r depressive disorder, unspecified whether recurrent F32.0 Active 58682270 Problem Vitamin D deficiency E55.9 Active 13775459 Problem Cervical cancer screening Z12.4 Active 788596 001 Problem Primary osteoarthritis of both knees M17.0 Act chris 571388460 Problem Diabetic polyneuropathy associated with type 2 d iabetes mellitus E11.42 Active 060944260 Problem Pre-syncope R55 Active 316234918 Problem Constipation, unspecified constipation type K59.00 Active 08256518 Problem DDD (degenerative disc disease), lumbar M51.36 Active 16935161 Problem Gastroesophageal reflux disease, esophagitis pre sence not specified K21.9 Active 516349393 Problem Breast cancer screening Z12.39 Active 18701643 1 Problem Essential hypertension I10 Active 77760235 Problem Personal history of pulmonary embolism Z86.711 A ctive 646807810 Problem manager intermediate (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 Z79.4 Activ e 092727269 Problem Chronic kidney disease, stage 3 (moderate) N18.3 Active 115928078 Problem Chronic obstructive pulmonary disease, unspecified COPD ty pe J44.9 Active 17795278 Problem Seasonal allergic rhinitis due to pollen J30.1 Active 87808520 Problem Hiatal hernia K44.9 Active 25876915 Problem Adenomatous polyp of ascending colon D12.2 Act chris 688199624 Problem H/O deep venous thrombosis Z86.718 Active 01685 8001 Problem Mixed hyperlipidemia E78.2 Active 952978521 Problem Type 2 diabetes mellitus with diabetic chronic kidney disease E11.22 Active 23121219 Problem History of pulmonary embolus (PE) Z86.711 Active 677687091 Problem Fatty liver K76.0 Active 592844300 ALLERGIES Allergen (clinical drug ingredient) Drug/Non Drug Allergy do cumented on EMR Reaction Allergy Type Onset Date Status Metoprolol & Diet Manage Prod Unknown Drug Allergy Active rubber Unknown Non Drug Allergy Active Motrin constipation Drug Allergy Active Quinolone Unknown Non Drug Allergy Active Latex Unknown Non Drug Allergy Active adhesive tape Unknown Non Drug Allergy Activ e ENCOUNTERS from 1950 to 2020-03-24 Encounter Location Date Provider Diagnosis [address] [address] 11 Mar, 2020 Hilda Castanon DDD (degenerative disc disease), lumbar M51.36 IMMUNIZATIONS No Information SOCIAL HISTORY Tobacco Use: Social History Observation Description Date Details (start date - stop date) Former Smoker Sex Assigned At : Social History Observation Description Sex Assigned At Unknown Audit Question Answer Notes Total Score: 0 Interpretation: Alcohol Education Language: Question Answer Notes Languages spoken: Niuean Restoration: Question Answer Notes Restoration No christianity beliefs that would impact health care. Sexual Hx: Question Answer Notes Had sex in the last 12 months (vaginal, oral, or anal)? No Drug and Alcohol Question Answer Notes Total Score: 0 Interpretation: No problems reported Alcohol Screening: Question Answer Notes Did you have a drink containing alcohol in the past year? Ye s Points 2 Interpretation Negative How often did you have six or more drinks on one occas ion in the past year? Never (0 points) How many drinks did you have on a typica l day when you were drinking in the past year? 3 or 4 (1 point) How often did you have a drink containing alcohol in t he past year? Monthly or less (1 point) Tobacco Use: Question Answer Notes Are you a: former smoker How long has it been since you last smoked? 5-10 years REASON FOR REFERRAL No Information VITAL SIGNS No information MEDICATIONS Medication SIG (Take, Route, Frequency, Duration) Notes Start Da te End Date Status ProAir HFA 108 (90 Base) MCG/ACT 2 puff as needed Inha lation every 4 hrs: keep at bedside for 30 Days July, Active Eliquis 5 MG 1 tab Orally bid Active Pravastatin Sodium 40 MG 1 tablet Orally Once a day for 30 Days Not-Taking Losartan Potassium 50 MG 1 tablet Orally Once a day for 30 day(s) Active Fluticasone Propionate 50 MCG/ACT 2 spray in each nost ril Nasally Once a day for 30 days Active Albuterol Sulfate (2.5 MG/3ML) 0.083% 3 ml as needed I nhalation every 8 hrs for 30 Days Active Senna Sodium 8.6-50 MG 2 tablet in the evening as needed Orally Onc e a day Not-Taking Lyrica 50 MG 1 capsule add to 200mg bid O rally Once a day Max DD: 450mg/Day for 30 Days Feb, Active BD AutoShield Duo 30G X 5 MM DX E11.22 In vitro bid for 30 Days July, Active Advair Diskus 100-50 MCG/DOSE 1 puff Inhalation Twice a day for 30 Days Feb, Active May Have - wedge pillow nightly before bedtime for 999 days Feb, Active Milk of Magnesia 400 MG/5ML 5 ml at least 4 hours betw een doses as needed Orally Four times a day Active Colace 100 MG 2 capsule as needed Orally before bedtime for 30 Days Not-Taking Advair Diskus 100-50 MCG/DOSE as directed Inhalation Active Lyrica 200 MG 1 capsule 1 to 3 hours before bedtime Orally bid for 30 Days Dec, Active Cerovite Senior - 1 tab Orally Daily for 30 Days 08 August, 020 Active Walker - 4 wheeled walker with seat DX M51.36 for 999 days July, Active Acetaminophen 8 Hour Acti ve Cymbalta 60 MG 1 cap po twice daily for 30 Days Aug, 20 20 Active May Have - compression stocking 15mmhg circ. at calf 43cm, size 12 shoe women's entire sock included topically Daily while out of bed for 999 days July, Active Chlorthalidone 25 MG 1 tab Orally Once a day for 30 Days Active Potassium Chloride Padmini ER 20 MEQ 1 tablet with food Orally Once a da y Active Victoza 18 MG/3ML 1.2 units Subcutaneous Daily Active Norvasc 5mg 1 tab orally Daily for 30 Days Active Fenofibrate 160 MG 1 tablet with food Orally Once a day for 30 Days Not-Taking Vitamin D3 35941 UNIT 1 capsule Orally Active Vascepa 1 GM 2 capsules with meals Orally Twice a day for 30 day(s) Active NovoLog 100 UNIT/ML as directed; MDD 60units Sub cutaneous give 24 units at 7 am and 30 units at noon for 30 Days Jan, Active Multivitamin & Mineral _ 1 tab orally Daily for 30 Days Active Acetaminophen 325 MG 1 tablet as needed Orally every 4 hrs Active May Have - rolator _ Daily for 999 days Active Polyethylene Glycol 3350 - as directed Not-Taking Omeprazole 40 MG 1 capsule Orally Once a day Active Admelog SoloStar 100 UNIT/ML 24 at 730 24 at 12 20 at [email or web address] Subcutaneous three times daily ac; MDD 100units for 30 Days Active Tylenol 8 Hour Arthritis Pain 650 MG 1 tab Orally bid A 2019 Active Lantus SoloStar 100 UNIT/ML 74 at 8, 40 at 20 Subcutaneous bid Active Lyrica 300 MG 1 capsule Orally bid for 30 Days Active Voltaren 1 % as directed Externally Active PROCEDURES No Information RESULTS No Results REASON FOR VISIT Lyrica MEDICAL (GENERAL) HISTORY Type Description Date Medical History T2DM IR Medical History COPD-quit 12Yrs. ago tob. use Medical History RLS Medical History hypertension, essential Medical History chronic MDD/GERMÁN Medical History Hyperlipidemia Medical History Allergic Rhinitis Medical History OA of knees, wrists Medical History H/o Lt. DVT, Bilat. PE on chronic DOAC Medical History CKD stage III Medical History GERD Medical History Vitamin D deficiency Medical History BERYL on chronic CPAP Medical History 01/2020 Dr Landaverde-Colon poly p sessile removed incompletely, tatooed, diverticuli in sigmoid colon, int. hems. Medical History 01/2020 Dr. AMAYA nl esoph., nl stom., nl duod., small insign. HH Surgical History right arm lipoma removal Surgical History lower back surgery x2 1970's Surgical History Hysterectomy 1979 Surgical History EGD, COlonoscopy-Dr. Landaverde see details under PMH above 01/2020 Hospitalization History surgery Hospitalization History childbirth Hospitalization History Depression ([facility]) Hospitalization History SOB & pre-syncope nl pfts c methacholine challenge, neg. troponins, echo grade 1 diastolic dysfxn no pericard. eff., no valve dis. CT of head -, CT a&P -, cxray- 05/2019 Goals Section No Information Health Concerns No Information MEDICAL EQUIPMENT No Information MENTAL STATUS No Information FUNCTIONAL STATUS No Information ASSESSMENTS Encounter Date Diagnosis Assessment Notes Treatment Notes Treatm ent Clinical Notes Mar, DDD (degenerative disc disease), lumbar (ICD-10 - M51.36) PLAN OF TREATMENT Medication Medication Name Sig Start Date Stop Date Tylenol 8 Hour Arthritis Pain 650 MG 1 tab Orally bid Jun, 20 Lyrica 300 MG 1 capsule Orally bid for 30 Days Admelog SoloStar 100 UNIT/ML 24 at 730 24 at 12 20 at [email or web address] Subcutaneous three times daily ac; MDD 100units for 30 Days Lantus SoloStar 100 UNIT/ML 74 at 8, 40 at 20 Subcutaneous bid Eliquis 5 MG 1 tab Orally bid Victoza 18 MG/3ML 1.2 units Subcutaneous Daily Lyrica 50 MG 1 capsule add to 200mg bid O rally Once a day Max DD: 450mg/Day for 30 Days Feb, May Have - wedge pillow nightly before bedtime for 999 days Feb, Next Appt Details Provider Name:Hilda Castanon, 03-24 01:00:00 PM, [address] [place] [address], [id number], Provider Name:Hilda Castanon, 04-08 10:45:00 AM, [address] [place] [address], [phone], Provider Name:Hilda Castanon, - 09:30:00 AM, [address] [place] [address], [phone], Provider Name:Gerard Alas, 2020-05-26 0 1:15:00 PM, [address] [place] [address], [phone], Insurance Providers Payer Name Payer Address Payer Phone Insured Name Patient Relati onship to Insured Coverage Start Date Coverage End Date HUMANA GOLD [address] [address] [facility] [address] [place] self MEDICAID [employer] [address] [facility] [address] [place] self
--- OUTSIDE RECORDS SUMMARY | 2020-04-12 13:01 | CCD ---
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 Name Role Phone Hilda Castanon Unavailable PROBLEMS Type Condition ICD9-CM Code [id number] Code Onset Dates Condition S tatus SNOMED Code Notes Problem Rheumatoid factor positive R76.8 Active 45671 9004 Problem Trigger finger of both hands M65.30 Active 156 68552084135807 Problem Arthralgia, unspecified joint M25.50 Active 57 594909 Problem Hyperplastic colonic polyp, unspecified part of colon K63.5 Active 791515122 Problem Current mild episode of kirby r depressive disorder, unspecified whether recurrent F32.0 Active 54598690 Problem Vitamin D deficiency E55.9 Active 43184855 Problem Cervical cancer screening Z12.4 Active 988852 001 Problem Primary osteoarthritis of both knees M17.0 Act chris 517786917 Problem Diabetic polyneuropathy associated with type 2 d iabetes mellitus E11.42 Active 720130468 Problem Pre-syncope R55 Active 421540838 Problem Constipation, unspecified constipation type K59.00 Active 37150958 Problem DDD (degenerative disc disease), lumbar M51.36 Active 39899854 Problem Gastroesophageal reflux disease, esophagitis pre sence not specified K21.9 Active 891797302 Problem Breast cancer screening Z12.39 Active 04972678 1 Problem Essential hypertension I10 Active 33086329 Problem Personal history of pulmonary embolism Z86.711 A ctive 999287272 Problem FPC (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 Z79.4 Activ e 358890473 Problem Chronic kidney disease, stage 3 (moderate) N18.3 Active 009539482 Problem Chronic obstructive pulmonary disease, unspecified COPD ty pe J44.9 Active 42254101 Problem Seasonal allergic rhinitis due to pollen J30.1 Active 46345464 Problem Hiatal hernia K44.9 Active 07941432 Problem Adenomatous polyp of ascending colon D12.2 Act chris 484877778 Problem H/O deep venous thrombosis Z86.718 Active 99207 8001 Problem Mixed hyperlipidemia E78.2 Active 635197390 Problem Type 2 diabetes mellitus with diabetic chronic kidney disease E11.22 Active 20962000 Problem History of pulmonary embolus (PE) Z86.711 Active 400080837 Problem Fatty liver K76.0 Active 673924976 ALLERGIES Allergen (clinical drug ingredient) Drug/Non Drug Allergy do cumented on EMR Reaction Allergy Type Onset Date Status Metoprolol & Diet Manage Prod Unknown Drug Allergy Active rubber Unknown Non Drug Allergy Active Motrin constipation Drug Allergy Active Quinolone Unknown Non Drug Allergy Active Latex Unknown Non Drug Allergy Active adhesive tape Unknown Non Drug Allergy Activ e ENCOUNTERS from 1950 to 2020-04-04 Encounter Location Date Provider Diagnosis [address] [address] 12 Mar, 2020 Hilda Castanon Paronychia of left ring finger L03.012 ; Paronychia of right ring finger L03.011 and Abscess of right middle finger L02.511 IMMUNIZATIONS No Information SOCIAL HISTORY Tobacco Use: Social History Observation Description Date Details (start date - stop date) Former Smoker Sex Assigned At : Social History Observation Description Sex Assigned At Unknown Audit Question Answer Notes Total Score: 0 Interpretation: Alcohol Education Language: Question Answer Notes Languages spoken: Turkish Jew: Question Answer Notes Jew No evangelical beliefs that would impact health care. Sexual [...] REASON FOR REFERRAL No Information VITAL SIGNS Weight 299 lbs Mar, Height 65 in Mar, BMI 49.75 kg/m2 Mar, Heart Rate 83 /min Mar, Respiratory Rate 18 /min Mar, Temperature 97.0 degrees Fahrenheit Mar, Oximetry 95 Mar, Blood pressure systolic 110 mm Hg Mar, Blood pressure diastolic 64 mm Hg Mar, MEDICATIONS Medication SIG (Take, Route, Frequency, Duration) Notes Start Da te End Date Status Omeprazole 40 MG 1 capsule Orally Once a day Active Cymbalta 60 MG 1 cap po twice daily for 30 Days Aug, Active BD AutoShield Duo 30G X 5 MM DX E11.22 In vitro bid for 30 Days July, Active Fluticasone Propionate 50 MCG/ACT 2 spray in each nost ril Nasally Once a day for 30 days Active Albuterol Sulfate (2.5 MG/3ML) 0.083% 3 ml as needed I nhalation every 8 hrs for 30 Days Active Chlorthalidone 25 MG 1 tab Orally Once a day for 30 Days Active Vascepa 1 GM 2 capsules with meals Orally Twice a day for 30 day(s) Active Eliquis 5 MG 1 tab Orally bid Active May Have - wedge pillow nightly before bedtime for 999 days Feb, Active Vitamin D3 57026 UNIT 1 capsule Orally Active NovoLog 100 UNIT/ML as directed; MDD 116units Campuzano bcutaneous SScale for 8am, 12noon; Diff. SScale for HS for 30 Days Jan, Active Tylenol 8 Hour Arthritis Pain 650 MG 1 tab Orally bid 23 A , 2019 Active Walker - 4 wheeled walker with seat DX M51.36 for 999 days July, Active May Have - rolator _ Daily for 999 days Active Acetaminophen 8 Hour Acti ve Losartan Potassium 50 MG 1 tablet Orally Once a day for 30 day(s) Active ProAir HFA 108 (90 Base) MCG/ACT 2 puff as needed Inha lation every 4 hrs: keep at bedside for 30 Days July, Active Advair Diskus 100-50 MCG/DOSE as directed Inhalation Active Acetaminophen 325 MG 1 tablet as needed Orally every 4 hrs Active Lantus SoloStar 100 UNIT/ML 74u at Qam, 40u at HS Subc utaneous bid: MDD 114U for 30 days Active Lyrica 200 MG 1 capsule 1 to 3 hours before bedtime Orally bid for 30 Days Dec, Active Milk of Magnesia 400 MG/5ML 5 ml at least 4 hours betw een doses as needed Orally Four times a day Active Victoza 18 MG/3ML 1.2 units Subcutaneous Daily Active Lyrica 300 MG 1 capsule Orally bid for 30 Days Active July Have - compression stocking 15mmhg circ. at calf 43cm, size 12 shoe women's entire sock included topically Daily while out of bed for 999 days July, Active Norvasc 5mg 1 tab orally Daily for 30 Days Active Potassium Chloride Padmini ER 20 MEQ 1 tablet with food Orally Once a da y Active Advair Diskus 100-50 MCG/DOSE 1 puff Inhalation Twice a day for 30 Days Feb, Active Voltaren 1 % as directed Externally Active Doxycycline Monohydrate 100 MG 1 capsule Orally bid for 10 day(s ) Mar, Active Multivitamin & Mineral _ 1 tab orally Daily for 30 Days Active Cerovite Senior - 1 tab Orally Daily for 30 Days 08 August, 020 Active Lyrica 300 MG 1 capsule in the evening 1 t o 3 hours before bedtime Orally bid for 30 Days Mar, Active PROCEDURES No Information RESULTS No Results REASON FOR VISIT sore left ring finger MEDICAL (GENERAL) HISTORY Type Description Date Medical [...] Treatment Notes Treatm ent Clinical Notes Mar, Paronychia of left ring finger (ICD-10 - L03.012 ) Mar, Paronychia of right ring finger (ICD-10 - L03.01 1) As above Mar, Abscess of right middle finger (ICD-10 - L02.511 ) As Above PLAN OF TREATMENT Medication Medication Name Sig Start Date Stop Date Doxycycline Monohydrate 100 MG 1 capsule Orally bid for 10 day(s ) Mar, Lyrica 300 MG 1 capsule in the evening 1 t o 3 hours before bedtime Orally bid for 30 Days Mar, Lantus SoloStar 100 UNIT/ML 74u at Qam, 40u at HS Subc utaneous bid: MDD 114U for 30 days Vascepa 1 GM 2 capsules with meals Orally Twice a day for 30 day(s) NovoLog 100 UNIT/ML as directed; MDD 116units Campuzano bcutaneous SScale for 8am, 12noon; Diff. SScale for HS for 30 Days Jan, BD AutoShield Duo 30G X 5 MM DX E11.22 In vitro bid for 30 Days July, Treatment Notes Assessment Notes Clinical Notes Paronychia of right ring finger As above Abscess of right middle finger As Above Treatment Notes Test Name Order Date [facility] Hand,(Pa\Lat) 2020-04-04 Next Appt Details AScSS Reason: Provider Name:Hilda Castanon, 04-08 10:45:00 AM, [address] [place], [address], Provider Name:Hilda Castanon 04-22 09:30:00 AM, [address] [place], [address], Provider Name:Gerard Alas, 2020-05-26 0 1:15:00 PM, [address] [place], [address], Insurance Providers Payer Name Payer Address Payer Phone Insured Name Patient Relati onship to Insured Coverage Start Date Coverage End Date MEDICAID [employer] [address] [facility] [address] [place] self HUMANA [facility] [address] [address] [facility] [id number] [place] self
--- OUTSIDE RECORDS SUMMARY | 2020-04-12 13:01 | CCD ---
Author Author [facility] Organization [facility] Address Unknown Phone Unavailable Care Team Providers Care Hospice Volunteer Name Role Phone Hilda Castanon Unavailable PROBLEMS Type Condition ICD9-CM Code [id number] Code Onset Dates Condition S tatus SNOMED Code Notes Problem Rheumatoid factor positive R76.8 Active 47421 9004 Problem Trigger finger of both hands M65.30 Active 156 54269379363016 Problem Arthralgia, unspecified joint M25.50 Active 57 940708 Problem Hyperplastic colonic polyp, unspecified part of colon K63.5 Active 961444578 Problem Current mild episode of kirby r depressive disorder, unspecified whether recurrent F32.0 Active 38555818 Problem Vitamin D deficiency E55.9 Active 63209840 Problem Cervical cancer screening Z12.4 Active 802711 001 Problem Primary osteoarthritis of both knees M17.0 Act chris 546848365 Problem Diabetic polyneuropathy associated with type 2 d iabetes mellitus E11.42 Active 793436108 Problem Pre-syncope R55 Active 233662924 Problem Constipation, unspecified constipation type K59.00 Active 20922389 Problem DDD (degenerative disc disease), lumbar M51.36 Active 30294185 Problem Gastroesophageal reflux disease, esophagitis pre sence not specified K21.9 Active 939585859 Problem Breast cancer screening Z12.39 Active 65633650 1 Problem Essential hypertension I10 Active 19470279 Problem Personal history of pulmonary embolism Z86.711 A ctive 378791171 Problem 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 (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 Z79.4 Activ e 998847217 Problem Chronic kidney disease, stage 3 (moderate) N18.3 Active 901048895 Problem Chronic obstructive pulmonary disease, unspecified COPD ty pe J44.9 Active 39881539 Problem Seasonal allergic rhinitis due to pollen J30.1 Active 52415672 Problem Hiatal hernia K44.9 Active 76798326 Problem Adenomatous polyp of ascending colon D12.2 Act chris 740793430 Problem H/O deep venous thrombosis Z86.718 Active 04630 8001 Problem Mixed hyperlipidemia E78.2 Active 845052641 Problem Type 2 diabetes mellitus with diabetic chronic kidney disease E11.22 Active 75490247 Problem History of pulmonary embolus (PE) Z86.711 Active 431800162 Problem Fatty liver K76.0 Active 807424492 ALLERGIES Allergen (clinical drug ingredient) Drug/Non Drug Allergy do cumented on EMR Reaction Allergy Type Onset Date Status Metoprolol & Diet Manage Prod Unknown Drug Allergy Active rubber Unknown Non Drug Allergy Active Motrin constipation Drug Allergy Active Quinolone Unknown Non Drug Allergy Active Latex Unknown Non Drug Allergy Active adhesive tape Unknown Non Drug Allergy Activ e ENCOUNTERS from 1950 to 2020-04-02 Encounter Location Date Provider Diagnosis [address] [address] Mar, Hilda Castanon Type 2 diabetes mellitus with diabetic c hronic kidney disease E11.22 IMMUNIZATIONS No Information SOCIAL HISTORY Tobacco Use: Social History Observation Description Date Details (start date - stop date) Former Smoker Sex Assigned At : Social History Observation Description Sex Assigned At Unknown Audit Question Answer Notes Total Score: 0 Interpretation: Alcohol Education Language: Question Answer Notes Languages spoken: Kosovan Church: Question Answer Notes Church No synagogue beliefs that would impact health care. Sexual [...] twice daily for 30 Days Aug, 20 Active BD AutoShield Duo 30G X 5 [...] for 999 days Feb, Active Vitamin D3 76695 UNIT 1 capsule Orally Active NovoLog 100 [...] 1 tab Orally Daily for 30 Days July, 020 Active Lyrica 300 MG 1 capsule in the evening 1 t o 3 hours before bedtime Orally bid for 30 Days Mar, Active PROCEDURES No Information RESULTS No Results REASON FOR VISIT insulin MEDICAL (GENERAL) HISTORY Type Description Date Medical [...] Treatment Notes Treatm ent Clinical Notes Mar, Type 2 diabetes mellitus wit h diabetic chronic kidney disease (ICD- 10 - E11.22) PLAN OF TREATMENT Medication Medication Name Sig [...] In vitro bid for 30 Days July, Next Appt Details Provider Name:Hilda Castanon, 04-08 10:45:00 AM, [address] [place] [address], [phone], Provider Name:Hilda Castanon, 04-22 09:30:00 AM, [address] [place] [address], [address], Provider Name:Gerard Alas, 2020-05-26 0 1:15:00 PM, [address] [place] [address], [phone], Insurance Providers Payer Name Payer Address Payer Phone Insured Name Patient Relati onship to Insured Coverage Start Date Coverage End Date HUMANA GOLD [address] [address] [facility] [address] [place] MEDICAID [employer] [address] [facility] [id number] [place]
--- OUTSIDE RECORDS SUMMARY | 2020-04-12 13:01 | CCD ---
Author Author [facility] Organization [facility] Address Unknown Phone Unavailable Care Team Providers Care Cyber Systems Administrator Name Role Phone Gilbert Herrera Unavailable PROBLEMS Type Condition ICD9-CM Code ZFN00-CM Code Onset Dates Condition S tatus SNOMED Code Notes Problem Rheumatoid factor positive R76.8 Active 74450 9004 Problem Trigger finger of both hands M65.30 Active 156 [id number] Problem Arthralgia, unspecified joint M25.50 Active 57 556235 Problem Hyperplastic colonic polyp, unspecified part of colon K63.5 Active 227581164 Problem Current mild episode of kirby r depressive disorder, unspecified whether recurrent F32.0 Active 17007392 Problem Vitamin D deficiency E55.9 Active 29627167 Problem Cervical cancer screening Z12.4 Active 275725 001 Problem Primary osteoarthritis of both knees M17.0 Act chris 423815620 Problem Diabetic polyneuropathy associated with type 2 d iabetes mellitus E11.42 Active 731357968 Problem Pre-syncope R55 Active 099303352 Problem Constipation, unspecified constipation type K59.00 Active 49548996 Problem DDD (degenerative disc disease), lumbar M51.36 Active 18239281 Problem Gastroesophageal reflux disease, esophagitis pre sence not specified K21.9 Active 148380008 Problem Breast cancer screening Z12.39 Active 64847577 1 Problem Essential hypertension I10 Active 85529881 Problem Personal history of pulmonary embolism Z86.711 A ctive 145644075 Problem nursing home (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 Z79.4 Activ e 682846969 Problem Chronic kidney disease, stage 3 (moderate) N18.3 Active 807184224 Problem Chronic obstructive pulmonary disease, unspecified COPD ty pe J44.9 Active 29620496 Problem Seasonal allergic rhinitis due to pollen J30.1 Active 29025570 Problem Hiatal hernia K44.9 Active 81170835 Problem Adenomatous polyp of ascending colon D12.2 Act chris 434991626 Problem H/O deep venous thrombosis Z86.718 Active 62359 8001 Problem Mixed hyperlipidemia E78.2 Active 291033707 Problem Type 2 diabetes mellitus with diabetic chronic kidney disease E11.22 Active 21076978 Problem History of pulmonary embolus (PE) Z86.711 Active 807720610 Problem Fatty liver K76.0 Active 821674069 ALLERGIES Allergen (clinical drug ingredient) Drug/Non Drug Allergy do cumented on EMR Reaction Allergy Type Onset Date Status Metoprolol & Diet Manage Prod Unknown Drug Allergy Active rubber Unknown Non Drug Allergy Active Motrin constipation Drug Allergy Active Quinolone Unknown Non Drug Allergy Active Latex Unknown Non Drug Allergy Active adhesive tape Unknown Non Drug Allergy Activ e ENCOUNTERS from 1950 to 2020-04-03 Encounter Location Date Provider Diagnosis [address] [address] 20 Mar, 2020 Gilbert Herrera Type 2 diabetes mellitus with diabetic c hronic kidney disease E11.22 IMMUNIZATIONS No Information SOCIAL HISTORY Tobacco Use: Social History Observation Description Date Details (start date - stop date) Former Smoker Sex Assigned At : Social History Observation Description Sex Assigned At Unknown Audit Question Answer Notes Total Score: 0 Interpretation: Alcohol Education Language: Question Answer Notes Languages spoken: Cuban Yazidi: Question Answer Notes Yazidi No muslim beliefs that would impact health care. Sexual [...] for 999 days Feb, Active Vitamin D3 56623 UNIT 1 capsule Orally Active NovoLog 100 [...] Information RESULTS No Results REASON FOR VISIT novolog flexpen refills, SSI change MEDICAL (GENERAL) HISTORY Type Description Date Medical [...] Details Provider Name:Hilda Castanon, 04-08 10:45:00 AM, [address] [place] [address], [phone], Provider Name:Hilda Castanon, 04-22 09:30:00 AM, [address] [place] [address], [phone], Provider Name:Gerard Alas, 2020-05-26 0 1:15:00 PM, [address] [place] [address], [phone], Insurance Providers Payer Name Payer Address Payer Phone Insured Name Patient Relati onship to Insured Coverage Start Date Coverage End Date MEDICAID Pikhub [address] [facility] [address] [place] HUMANA GOLD [address] [address] [facility] [address] [place]
--- OUTSIDE RECORDS SUMMARY | 2020-04-12 13:02 | CCD ---
Author Author [facility] Organization [facility] Address Unknown Phone Unavailable Care Team Providers Care Liner Machine Operator Name Role Phone Hilda Castanon Unavailable PROBLEMS Type Condition ICD9-CM Code FLF71-GE Code Onset Dates Condition S tatus SNOMED Code Notes Problem Rheumatoid factor positive R76.8 Active 50825 9004 Problem Trigger finger of both hands M65.30 Active 156 90649269315104 Problem Arthralgia, unspecified joint M25.50 Active 57 446577 Problem Hyperplastic colonic polyp, unspecified part of colon K63.5 Active 600362613 Problem Current mild episode of kirby r depressive disorder, unspecified whether recurrent F32.0 Active 51389134 Problem Vitamin D deficiency E55.9 Active 91727516 Problem Cervical cancer screening Z12.4 Active 673099 001 Problem Primary osteoarthritis of both knees M17.0 Act chris 234378629 Problem Diabetic polyneuropathy associated with type 2 d iabetes mellitus E11.42 Active 965254424 Problem Pre-syncope R55 Active 050460279 Problem Constipation, unspecified constipation type K59.00 Active 46926427 Problem DDD (degenerative disc disease), lumbar M51.36 Active 72302858 Problem Gastroesophageal reflux disease, esophagitis pre sence not specified K21.9 Active 937806995 Problem Breast cancer screening Z12.39 Active 98639273 1 Problem Essential hypertension I10 Active 30088792 Problem Personal history of pulmonary embolism Z86.711 A ctive 121689475 Problem 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.4 Activ e 671188250 Problem Chronic kidney disease, stage 3 (moderate) N18.3 Active 675266559 Problem Chronic obstructive pulmonary disease, unspecified COPD ty pe J44.9 Active 54468313 Problem Seasonal allergic rhinitis due to pollen J30.1 Active 20461674 Problem Hiatal hernia K44.9 Active 07891456 Problem Adenomatous polyp of ascending colon D12.2 Act chris 157523401 Problem H/O deep venous thrombosis Z86.718 Active 26360 8001 Problem Mixed hyperlipidemia E78.2 Active 672252964 Problem Type 2 diabetes mellitus with diabetic chronic kidney disease E11.22 Active 56409799 Problem History of pulmonary embolus (PE) Z86.711 Active 414388207 Problem Fatty liver K76.0 Active 127029176 ALLERGIES Allergen (clinical drug ingredient) Drug/Non Drug Allergy do cumented on EMR Reaction Allergy Type Onset Date Status Metoprolol & Diet Manage Prod Unknown Drug Allergy Active rubber Unknown Non Drug Allergy Active Motrin constipation Drug Allergy Active Quinolone Unknown Non Drug Allergy Active Latex Unknown Non Drug Allergy Active adhesive tape Unknown Non Drug Allergy Activ e ENCOUNTERS from 1950 to 2020-03-11 Encounter Location Date Provider Diagnosis [address] [address] Feb, Hilda Castanon IMMUNIZATIONS No Information SOCIAL HISTORY Tobacco Use: Social History Observation Description Date Details (start date - stop date) Former Smoker Sex Assigned At : Social History Observation Description Sex Assigned At Unknown Audit Question Answer Notes Total Score: 0 Interpretation: Alcohol Education Language: Question Answer Notes Languages spoken: Yi Zoroastrian: Question Answer Notes Zoroastrian No sikhism beliefs that would impact health care. Sexual [...] Notes Start Da te End Date Status Losartan Potassium 50 MG 1 tablet Orally Once a day for 30 day(s) Active Fluticasone Propionate 50 MCG/ACT 2 spray in each nost ril Nasally Once a day for 30 days Active Pravastatin Sodium 40 MG 1 tablet Orally Once a day for 30 Days Not-Taking Polyethylene Glycol 3350 - as directed Not-Taking Multivitamin & Mineral _ 1 tab orally Daily for 30 Days Active Albuterol Sulfate (2.5 MG/3ML) 0.083% 3 ml as needed I nhalation every 8 hrs for 30 Days Active Advair Diskus 100-50 MCG/DOSE 1 puff Inhalation Twice a day for 30 Days Feb, Active May Have - wedge pillow nightly before bedtime for Feb, Active BD AutoShield Duo 30G X 5 MM DX E11.22 In vitro bid for 30 Days July, Active ProAir HFA 108 (90 Base) MCG/ACT 2 puff as needed Inha lation every 4 hrs: keep at bedside for 30 Days July, Active Eliquis 5 MG 1 tab Orally bid Active Milk of Magnesia 400 MG/5ML 5 ml at least 4 hours betw een doses as needed Orally Four times a day Active Colace 100 MG 2 capsule as needed Orally before bedtime for 30 Days Not-Taking Advair Diskus 100-50 MCG/DOSE as directed Inhalation Active Senna Sodium 8.6-50 MG 2 tablet in the evening as needed Orally Onc e a day Not-Taking Cerovite Senior - 1 tab Orally Daily for 30 Days 08 August, 2 020 Active Walker - 4 wheeled walker with seat DX M51.36 for 999 days July, Active Acetaminophen 8 Hour Acti ve Cymbalta 60 MG 1 cap po twice daily for 30 Days Aug, 20 20 Active July Have - compression stocking 15mmhg circ. at calf 43cm, size 12 shoe women's entire sock included topically Daily while out of bed for 999 days July, Active Potassium Chloride Padmini ER 20 MEQ 1 tablet with food Orally Once a da y Active Omeprazole 40 MG 1 capsule Orally Once a day Active Admelog SoloStar 100 UNIT/ML 24 at 730 24 at 12 20 at [email or web address] Subcutaneous three times daily ac; MDD 100units for 30 Days Active Vascepa 1 GM 2 capsules with meals Orally Twice a day for 30 day(s) Active NovoLog 100 UNIT/ML as directed; MDD 60units Sub cutaneous give 24 units at 7 am and 30 units at noon for 30 Days Jan, Active May Have - rolator _ Daily for 999 days Active Chlorthalidone 25 MG 1 tab Orally Once a day for 30 Days Active Lyrica 200 MG 1 capsule 1 to 3 hours before bedtime Orally bid for 30 Days Dec, Active Fenofibrate 160 MG 1 tablet with food Orally Once a day for 30 Days Not-Taking Acetaminophen 325 MG 1 tablet as needed Orally every 4 hrs Active Victoza 18 MG/3ML 1.2 units Subcutaneous Daily Active Norvasc 5mg 1 tab orally Daily for 30 Days Active Vitamin D3 74434 UNIT 1 capsule Orally Active Lantus SoloStar 100 UNIT/ML 74 at 8, 40 at 20 Subcutaneous bid Active Tylenol 8 Hour Arthritis Pain 650 MG 1 tab Orally bid 2019 Active Lyrica 50 MG 1 capsule add to 200mg bid O rally Once a day Max DD: 450mg/Day for 30 Days Feb, Active Lyrica 300 MG 1 capsule Orally bid for 30 Days Active Voltaren 1 % as directed Externally Active PROCEDURES No Information RESULTS No Results REASON FOR VISIT 6 mo med eval MEDICAL (GENERAL) HISTORY Type Description Date Medical [...] removal Surgical History lower back surgery x2 1969's Surgical History Hysterectomy 1979 Surgical History EGD, [...] No Information FUNCTIONAL STATUS No Information ASSESSMENTS No Information PLAN OF TREATMENT Medication Medication Name Sig Start Date Stop Date Tylenol 8 Hour Arthritis Pain 650 MG 1 tab Orally bid Jun, Lyrica 300 MG 1 capsule Orally bid for 30 Days Lantus SoloStar 100 UNIT/ML 74 at 8, 40 at 20 Subcutaneous bid Lyrica 50 MG 1 capsule add to 200mg bid O rally Once a day Max DD: 450mg/Day for 30 Days Feb, Victoza 18 MG/3ML 1.2 units Subcutaneous Daily Admelog SoloStar 100 UNIT/ML 24 at 730 24 at 12 20 at [id number] Subcutaneous three times daily ac; MDD 100units for 30 Days May Have - wedge pillow nightly before bedtime for 999 days Feb, Eliquis 5 MG 1 tab Orally bid Next Appt Details Provider Name:Hilda Castanon, 04-08 10:45:00 AM, [address] [place] [address], [phone], Provider Name:Hilda Castanon, - 09:30:00 AM, [address] [place] [address], [phone], Provider Name:Gerard Alas, 2020-05-26 0 1:15:00 PM, [address] [place] [address], [phone], Insurance Providers Payer Name Payer Address Payer Phone Insured Name Patient Relati onship to Insured Coverage Start Date Coverage End Date HUMANA GOLD [address] [address] [facility] [phone] [place] MEDICAID Hastify [address] [facility] [id number] [place]
--- OUTSIDE RECORDS SUMMARY | 2020-04-12 13:02 | CCD ---
Author Author [facility] Organization [facility] Address Unknown Phone Unavailable Care Team Providers Care Quality Nurse Name Role Phone Hilda Castanon Unavailable PROBLEMS Type Condition ICD9-CM Code JGD20-RO Code Onset Dates Condition S tatus SNOMED Code Notes Problem Rheumatoid factor positive R76.8 Active 91866 9004 Problem Trigger finger of both hands M65.30 Active 156 30443777003995 Problem Arthralgia, unspecified joint M25.50 Active 57 879522 Problem Hyperplastic colonic polyp, unspecified part of colon K63.5 Active 830971935 Problem Current mild episode of kirby r depressive disorder, unspecified whether recurrent F32.0 Active 48621629 Problem Vitamin D deficiency E55.9 Active 51954771 Problem Cervical cancer screening Z12.4 Active 849612 001 Problem Primary osteoarthritis of both knees M17.0 Act chris 900447418 Problem Diabetic polyneuropathy associated with type 2 d iabetes mellitus E11.42 Active 412959633 Problem Pre-syncope R55 Active 904469686 Problem Constipation, unspecified constipation type K59.00 Active 54314874 Problem DDD (degenerative disc disease), lumbar M51.36 Active 84348886 Problem Gastroesophageal reflux disease, esophagitis pre sence not specified K21.9 Active 572236928 Problem Breast cancer screening Z12.39 Active 28135872 1 Problem Essential hypertension I10 Active 45442672 Problem Personal history of pulmonary embolism Z86.711 A ctive 000873490 Problem custodial (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 Z79.4 Activ e 354738104 Problem Chronic kidney disease, stage 3 (moderate) N18.3 Active 212623650 Problem Chronic obstructive pulmonary disease, unspecified COPD ty pe J44.9 Active 18049801 Problem Seasonal allergic rhinitis due to pollen J30.1 Active 08033780 Problem Hiatal hernia K44.9 Active 04706759 Problem Adenomatous polyp of ascending colon D12.2 Act chris 217545243 Problem H/O deep venous thrombosis Z86.718 Active 66122 8001 Problem Mixed hyperlipidemia E78.2 Active 731059593 Problem Type 2 diabetes mellitus with diabetic chronic kidney disease E11.22 Active 62915432 Problem History of pulmonary embolus (PE) Z86.711 Active 105048702 Problem Fatty liver K76.0 Active 077260386 ALLERGIES Allergen (clinical drug ingredient) Drug/Non Drug Allergy do cumented on EMR Reaction Allergy Type Onset Date Status Metoprolol & Diet Manage Prod Unknown Drug Allergy Active rubber Unknown Non Drug Allergy Active Motrin constipation Drug Allergy Active Quinolone Unknown Non Drug Allergy Active Latex Unknown Non Drug Allergy Active adhesive tape Unknown Non Drug Allergy Activ e ENCOUNTERS from 1950 to 2020-02-27 Encounter Location Date Provider Diagnosis [address] [address] Feb, Hilda Kina Chronic obstructive pulmonary disease, u nspecified COPD type J44.9 ; Essential hypertension I10 ; Adenomatous polyp of ascending colon D12.2 ; History of pulmonary embolus (PE) Z86.711 ; Type 2 diabetes mellitus with diabetic chronic kidney disease E11.22 ; Chronic kidney disease, stage 3 (moderate) N18.3 and Hiatal hernia K44.9 IMMUNIZATIONS No Information SOCIAL HISTORY Tobacco Use: Social History Observation Description Date Details (start date - stop date) Former Smoker Sex Assigned At : Social History Observation Description Sex Assigned At Unknown Audit Question Answer Notes Total Score: 0 Interpretation: Alcohol Education Language: Question Answer Notes Languages spoken: Armenian Episcopalian: Question Answer Notes Episcopalian No denominational beliefs that would impact health care. Sexual [...] FOR REFERRAL No Information VITAL SIGNS Weight 298.6 lbs Feb, Height 65 in Feb, BMI 49.68 kg/m2 Feb, Heart Rate 91 /min Feb, Respiratory Rate 20 /min Feb, Temperature 96.9 degrees Fahrenheit Feb, Oximetry 95% Feb, Blood pressure systolic 138 mm Hg Feb, Blood pressure diastolic 62 mm Hg Feb, MEDICATIONS Medication SIG (Take, Route, Frequency, Duration) [...] before bedtime for 999 days Feb, Active BD AutoShield Duo 30G X [...] daily for 30 Days Aug, 20 Active July Have - compression stocking [...] at 730 24 at 12 20 at [email or web address] Subcutaneous three times daily ac; MDD 100units for 30 Days Active Vascepa 1 GM 2 capsules with meals Orally Twice a day for 30 day(s) Active NovoLog 100 UNIT/ML as directed; MDD 60units Sub cutaneous give 24 units at 7 am and 30 units at noon for 30 Days Jan, Active July Have - rolator _ Daily for 999 [...] Daily for 30 Days Active Vitamin D3 72592 UNIT 1 capsule Orally Active Lantus SoloStar 100 UNIT/ML 74 at 8, 40 at 20 Subcutaneous bid Active Lyrica 200 MG 1 capsule 1 to 3 hours befor e bedtime Orally bid + 50mg =450mg MDD for 30 Days Active Lyrica 50 MG 1 capsule add to 200mg bid O rally Once a day Max DD: 450mg/Day for 30 Days Feb, Active Tylenol 8 Hour Arthritis Pain 650 MG 1 tab Orally bid 23 A , 2019 Active Voltaren 1 % as directed Externally Active PROCEDURES No Information RESULTS No Results REASON FOR VISIT 1-2 month f/u MEDICAL (GENERAL) HISTORY Type Description Date Medical [...] Notes Treatment Notes Treatm ent Clinical Notes Feb, Chronic obstructive pulmonar y disease, unspecified COPD type (ICD- 10 - J44.9) She has been SOB & s advair will reorder Feb, Essential hypertension (ICD-10 - I10) Stable on current regimen Feb, Adenomatous polyp of ascending colon (ICD-10 - D 12.2) Plans 4M f/u 01/2020 EGD/Colonoscopy 2.5 sessile polyp c incompl. snare tatooed, divertiulosis in sigmoid colon, int. hem.s -Dr. Landaverde Feb, History of pulmonary embolus (PE) (ICD-10 - Z86. 711) Feb, Type 2 diabetes mellitus wit h diabetic chronic kidney disease (ICD- 10 - E11.22) Per 01/03/20 [facility] med sheet on: glar 74 at 8, 40 at 20 AND admelog 24 at 730, 30 at 12 (do not see AC din coverage) favor FSLP at fu 06/26/19 A1C 9.2 Feb, Chronic kidney disease, stage 3 (moderate) (ICD- 10 - N18.3) baseline GFR mid 40s Feb, Hiatal hernia (ICD-10 - K44.9) 01/2020 small insignificant Hiatal Hernia, nl esophagus, nl stomache, nl duodenum PLAN OF TREATMENT Medication Medication Name Sig Start Date Stop Date Lyrica 200 MG 1 capsule 1 to 3 hours befor e bedtime Orally bid + 50mg =450mg MDD for 30 Days Tylenol 8 Hour Arthritis Pain 650 MG 1 tab Orally bid Jun, Lantus SoloStar 100 UNIT/ML 74 at 8, 40 at 20 Subcutaneous bid Lyrica 50 MG 1 capsule add to 200mg bid O rally Once a day Max DD: 450mg/Day for 30 Days Feb, Victoza 18 MG/3ML 1.2 units Subcutaneous Daily Admelog SoloStar 100 UNIT/ML 24 at 730 24 at 12 20 at [email or web address] Subcutaneous three times daily ac; MDD 100units for 30 Days May Have - wedge pillow nightly before bedtime for 999 days Feb, Eliquis 5 MG 1 tab Orally bid Treatment Notes Assessment Notes Clinical Notes Chronic obstructive pulmonary disease, unspecified COPD type She has been SOB & s advair will reorder Essential hypertension Stable on current regimen Adenomatous polyp of ascending colon Anna ns 4M f/ EGD/Colonoscopy 2.5 sessile polyp c incompl. snare tatooed, divertiulosis in sigmoid colon, int. hem.s -Dr. Landaverde Type 2 diabetes mellitus with diabetic chronic kidney diseas e Per 01/03/20 [facility] med sheet on: glar 74 at 8, 40 at 20 AND admelog 24 at 730, 30 at 12 (do not see AC din coverage)favor FSLP at fu06/26/19 A1C 9.2 Chronic kidney disease, stage 3 (moderate) baseline GFR mid 40s Hiatal hernia 01/2020 small insign ificant Hiatal Hernia, nl esophagus, nl stomache, nl duodenum Next Appt Details 2 Months c SS Reason: Provider Name:Hilda Castanon, - 08:30:00 AM, [address] [place], [address], Provider Name:Hilda Castanon - 09:30:00 AM, [address] [place], [address], Provider Name:Gerard Alas, 2020-05-26 0 1:15:00 PM, [address] [place], [address], Insurance Providers Payer Name Payer Address Payer Phone Insured Name Patient Relati onship to Insured Coverage Start Date Coverage End Date MEDICAID [employer] [address] [facility] [address] [place] [facility] [address] [address] [facility] [phone] [place]
--- OUTSIDE RECORDS SUMMARY | 2020-04-12 13:02 | CCD ---
Author Author [facility] Organization [facility] Address Unknown Phone Unavailable Care Team Providers Care Seafood Service Team Member Name Role Phone Gerard Alas Unavailable PROBLEMS Type Condition ICD9-CM Code [id number] Code Onset Dates Condition S tatus SNOMED Code Notes Problem Rheumatoid factor positive R76.8 Active 3741662 9134 Problem Trigger finger of both hands M65.30 Active 156 [id number] Problem Arthralgia, unspecified joint M25.50 Active 57 845583 Problem Hyperplastic colonic polyp, unspecified part of colon K63.5 Active 806398848 Problem Current mild episode of kirby r depressive disorder, unspecified whether recurrent F32.0 Active 63909068 Problem Vitamin D deficiency E55.9 Active 14421983 Problem Cervical cancer screening Z12.4 Active 845956 001 Problem Primary osteoarthritis of both knees M17.0 Act chris 889161266 Problem Diabetic polyneuropathy associated with type 2 d iabetes mellitus E11.42 Active 236662814 Problem Pre-syncope R55 Active 735244831 Problem Constipation, unspecified constipation type K59.00 Active 66516770 Problem DDD (degenerative disc disease), lumbar M51.36 Active 15718873 Problem Gastroesophageal reflux disease, esophagitis pre sence not specified K21.9 Active 482227007 Problem Breast cancer screening Z12.39 Active 82651516 1 Problem Essential hypertension I10 Active 09584905 Problem Personal history of pulmonary embolism Z86.711 A ctive 315914000 Problem FDC (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 Z79.4 Activ e 497680538 Problem Chronic kidney disease, stage 3 (moderate) N18.3 Active 936437416 Problem Chronic obstructive pulmonary disease, unspecified COPD ty pe J44.9 Active 49398263 Problem Seasonal allergic rhinitis due to pollen J30.1 Active 93350059 Problem Hiatal hernia K44.9 Active 07115222 Problem Adenomatous polyp of ascending colon D12.2 Act chris 664963453 Problem H/O deep venous thrombosis Z86.718 Active 01340 8001 Problem Mixed hyperlipidemia E78.2 Active 126414806 Problem Type 2 diabetes mellitus with diabetic chronic kidney disease E11.22 Active 50125139 Problem History of pulmonary embolus (PE) Z86.711 Active 322646190 Problem Fatty liver K76.0 Active 670199221 ALLERGIES Allergen (clinical drug ingredient) Drug/Non Drug Allergy do cumented on EMR Reaction Allergy Type Onset Date Status Metoprolol & Diet Manage Prod Unknown Drug Allergy Active rubber Unknown Non Drug Allergy Active Motrin constipation Drug Allergy Active Quinolone Unknown Non Drug Allergy Active Latex Unknown Non Drug Allergy Active adhesive tape Unknown Non Drug Allergy Activ e ENCOUNTERS from 1951 to 2020-02-28 Encounter Location Date Provider Diagnosis [address] [address] Feb, 020 Gerard Alas DDD (degenerative disc disease), lumbar M51.36 IMMUNIZATIONS No Information SOCIAL HISTORY Tobacco Use: Social History Observation Description Date Details (start date - stop date) Former Smoker Sex Assigned At : Social History Observation Description Sex Assigned At Unknown Audit Question Answer Notes Total Score: 0 Interpretation: Alcohol Education Language: Question Answer Notes Languages spoken: Nauruan Zoroastrian: Question Answer Notes Zoroastrian No episcopalian beliefs that would impact health care. Sexual [...] wedge pillow nightly before bedtime for 999 Feb, Active BD AutoShield Duo 30G X [...] for 999 days July, Active Potassium Chloride Apdmini ER 20 MEQ 1 tablet with food Orally Once a da y Active Omeprazole 40 MG 1 capsule Orally Once a day Active Admelog SoloStar 100 UNIT/ML 24 at 730 24 at 12 20 at [email or web address] Subcutaneous three times daily ac; MDD 100units [...] Daily for 30 Days Active Vitamin D3 84329 UNIT 1 capsule Orally Active Lantus SoloStar 100 UNIT/ML 74 at 8, 40 at 20 Subcutaneous bid Active Tylenol 8 Hour Arthritis Pain 650 MG 1 tab Orally bid A 2019 Active Lyrica 50 MG 1 capsule add to 200mg bid O rally Once a day Max DD: 450mg/Day for 30 Days Feb, Active Lyrica 300 MG 1 capsule Orally bid for 30 Days Active Voltaren 1 % as directed Externally Active PROCEDURES No Information RESULTS No Results REASON FOR VISIT Lyrica and sliding scale MEDICAL (GENERAL) HISTORY Type Description Date Medical [...] Treatment Notes Treatm ent Clinical Notes Feb, DDD (degenerative disc disease), lumbar (ICD-10 - [...] at 730 24 at 12 20 at [email or web address] Subcutaneous three times daily ac; MDD 100units for 30 Days May Have - wedge pillow nightly before bedtime for 999 days Feb, Eliquis 5 MG 1 tab Orally bid Next Appt Details Provider Name:Hilda Castanon, - 08:30:00 AM, [address] [place] [address], [phone], Provider Name:Hilda Castanon, 2- 09:30:00 AM, [address] [place] [address], [phone], Provider Name:Gerard Alas, 2020-05-26 0 1:15:00 PM, [address] [place] [address], [phone], Insurance Providers Payer Name Payer Address Payer Phone Insured Name Patient Relati onship to Insured Coverage Start Date Coverage End Date [employer] GOLD [address] [address] [facility] [address] [place] [facility] MEDICAID [employer] [address] [facility] [id number] [place] self
--- OUTSIDE RECORDS SUMMARY | 2020-04-12 13:02 | CCD ---
Author Author [facility] Organization [facility] Address Unknown Phone Unavailable Care Team Providers Care Voip Network Engineer Name Role Phone Hilda Castanon Unavailable PROBLEMS Type Condition ICD9-CM Code [id number] Code Onset Dates Condition S tatus SNOMED Code Notes Problem Rheumatoid factor positive R76.8 Active 10979 9004 Problem Trigger finger of both hands M65.30 Active 156 36603027098283 Problem Arthralgia, unspecified joint M25.50 Active 57 850221 Problem Hyperplastic colonic polyp, unspecified part of colon K63.5 Active 147435477 Problem Current mild episode of kirby r depressive disorder, unspecified whether recurrent F32.0 Active 79967647 Problem Vitamin D deficiency E55.9 Active 04837354 Problem Cervical cancer screening Z12.4 Active 527823 001 Problem Primary osteoarthritis of both knees M17.0 Act chris 906506832 Problem Diabetic polyneuropathy associated with type 2 d iabetes mellitus E11.42 Active 094168903 Problem Pre-syncope R55 Active 971680613 Problem Constipation, unspecified constipation type K59.00 Active 05849640 Problem DDD (degenerative disc disease), lumbar M51.36 Active 54137900 Problem Gastroesophageal reflux disease, esophagitis pre sence not specified K21.9 Active 187597220 Problem Breast cancer screening Z12.39 Active 87099023 1 Problem Essential hypertension I10 Active 91732081 Problem Personal history of pulmonary embolism Z86.711 A ctive 116559799 Problem 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 Activ e 325836994 Problem Chronic kidney disease, stage 3 (moderate) N18.3 Active 899531686 Problem Chronic obstructive pulmonary disease, unspecified COPD ty pe J44.9 Active 97048818 Problem Seasonal allergic rhinitis due to pollen J30.1 Active 18704692 Problem Hiatal hernia K44.9 Active 36790970 Problem Adenomatous polyp of ascending colon D12.2 Act chris 697820663 Problem H/O deep venous thrombosis Z86.718 Active 45928 8001 Problem Mixed hyperlipidemia E78.2 Active 072938569 Problem Type 2 diabetes mellitus with diabetic chronic kidney disease E11.22 Active 13217151 Problem History of pulmonary embolus (PE) Z86.711 Active 080002577 Problem Fatty liver K76.0 Active 572708089 ALLERGIES Allergen (clinical drug ingredient) Drug/Non Drug [...] to 2020-02-28 Encounter Location Date Provider Diagnosis [address] [address] 17 Feb, 2020 Hilda Castanon Type 2 diabetes mellitus with diabetic c hronic kidney disease E11.22 ; Chronic obstructive pulmonary disease, unspecified COPD type J44.9 ; Personal history of pulmonary embolism Z86.711 ; H/O deep venous thrombosis Z86.718 ; SOB (shortness of breath) R06.02 ; Primary osteoarthritis of both knees M17.0 and DDD (degenerative disc disease), lumbar M51.36 IMMUNIZATIONS No Information SOCIAL HISTORY Tobacco Use: Social History Observation Description Date Details (start date - stop date) Former Smoker Sex Assigned At : Social History Observation Description Sex Assigned At Unknown Audit Question Answer Notes Total Score: 0 Interpretation: Alcohol Education Language: Question Answer Notes Languages spoken: Welsh Cheondoism: Question Answer Notes Cheondoism No anabaptism beliefs that would impact health care. Sexual [...] FOR REFERRAL No Information VITAL SIGNS Weight 295 lbs Feb, Height 65 in Feb, BMI 49.09 kg/m2 Feb, Heart Rate 93 /min Feb, Respiratory Rate 18 /min Feb, Temperature 98.0 degrees Fahrenheit Feb, Oximetry 93 Feb, Blood pressure systolic 112 mm Hg Feb, Blood pressure diastolic 62 [...] at 730 24 at 12 20 at [email or web address] Subcutaneous three times daily ac; MDD 100units [...] Daily for 30 Days Active Vitamin D3 53062 UNIT 1 capsule Orally Active Lantus SoloStar [...] Information RESULTS No Results REASON FOR VISIT ER Visit [facility] 02/22; pain, SOB MEDICAL (GENERAL) HISTORY Type Description Date Medical [...] Treatment Notes Treatm ent Clinical Notes Feb, Type 2 diabetes mellitus wit h diabetic chronic kidney disease (ICD- 10 - E11.22) Increased sliding scale in chart for admelog now for 20units + at supper Feb, Chronic obstructive pulmonar y disease, unspecified COPD type (ICD- 10 - J44.9) Feb, Personal history of pulmonary embolism (ICD-10 - Z86.711) Feb, H/O deep venous thrombosis (ICD-10 - Z86.718) Feb, SOB (shortness of breath) (ICD-10 - R06.02) Feb, Primary osteoarthritis of both knees (ICD-10 - M 17.0) Feb, DDD (degenerative disc disease), lumbar (ICD-10 - M51.36) Will increase Lyrica to mg bid 450mg/Day I-stop #[id number] Last Lyrica filled 02/18/2020 by me, Hydrocodone 12/17/2019 by RS PLAN OF TREATMENT Medication Medication Name Sig [...] at 730 24 at 12 20 at [email or web address] Subcutaneous three times daily ac; MDD 100units for 30 Days May Have - wedge pillow nightly before bedtime for 999 days Feb, Eliquis 5 MG 1 tab Orally bid Treatment Notes Assessment Notes Clinical Notes Type 2 diabetes mellitus with diabetic chronic kidney diseas e Increased sliding scale in chart for admelog now for 20units + at supper DDD (degenerative disc disease), lumbar Will increase Lyrica to mg bid 450mg/Mayra-stop #[id number] Last Lyrica filled 02/18/2020 by me, Hydrocodone 12/17/2019 by RS Next Appt Details 4 Weeks for insulin changes; 3M-4M medic are visit c Dr. Alas Reason: Provider Name:Hilda Castanon, - 08:30:00 AM, [address] [place] [address], [phone], Provider Name:Hilda Castanon, 2- 09:30:00 AM, [address] [place] [address], [phone], Provider Name:Gerard Alas, 2020-05-26 0 1:15:00 PM, [address] [place] [address], [phone], Insurance Providers Payer Name Payer Address Payer Phone Insured Name Patient Relati onship to Insured Coverage Start Date Coverage End Date HU[employer]NA GOLD [address] [address] [facility] [address] [place] self MEDICAID [employer] [address] [facility] [id number] [phone] [place] self
--- OUTSIDE RECORDS SUMMARY | 2020-04-12 13:02 | CCD ---
Author Author [facility] Organization [facility] Address Unknown Phone Unavailable Care Team Providers Care Inspector Open Die Name Role Phone Gerard Alas Unavailable PROBLEMS Type Condition ICD9-CM Code [id number] Code Onset Dates Condition S tatus SNOMED Code Notes Problem Rheumatoid factor positive R76.8 Active 0399282 9554 Problem Trigger finger of both hands M65.30 Active 156 76195057388069 Problem Arthralgia, unspecified joint M25.50 Active 57 727338 Problem Hyperplastic colonic polyp, unspecified part of colon K63.5 Active 099087179 Problem Current mild episode of kirby r depressive disorder, unspecified whether recurrent F32.0 Active 75343406 Problem Vitamin D deficiency E55.9 Active 46826760 Problem Cervical cancer screening Z12.4 Active 406261 001 Problem Primary osteoarthritis of both knees M17.0 Act chris 327651802 Problem Diabetic polyneuropathy associated with type 2 d iabetes mellitus E11.42 Active 899192413 Problem Pre-syncope R55 Active 009958189 Problem Constipation, unspecified constipation type K59.00 Active 73913285 Problem DDD (degenerative disc disease), lumbar M51.36 Active 53055621 Problem Gastroesophageal reflux disease, esophagitis pre sence not specified K21.9 Active 541162254 Problem Breast cancer screening Z12.39 Active 28817008 1 Problem Essential hypertension I10 Active 67124707 Problem Personal history of pulmonary embolism Z86.711 A ctive 905419734 Problem 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 Z79.4 Activ e 636667716 Problem Chronic kidney disease, stage 3 (moderate) N18.3 Active 474604646 Problem Chronic obstructive pulmonary disease, unspecified COPD ty pe J44.9 Active 13329835 Problem Seasonal allergic rhinitis due to pollen J30.1 Active 03198938 Problem Hiatal hernia K44.9 Active 50528576 Problem Adenomatous polyp of ascending colon D12.2 Act chris 266494913 Problem H/O deep venous thrombosis Z86.718 Active 33724 8001 Problem Mixed hyperlipidemia E78.2 Active 489928391 Problem Type 2 diabetes mellitus with diabetic chronic kidney disease E11.22 Active 27401102 Problem History of pulmonary embolus (PE) Z86.711 Active 469720954 Problem Fatty liver K76.0 Active 207682963 ALLERGIES Allergen (clinical drug ingredient) Drug/Non Drug Allergy do cumented on EMR Reaction Allergy Type Onset Date Status Metoprolol & Diet Manage Prod Unknown Drug Allergy Active rubber Unknown Non Drug Allergy Active Motrin constipation Drug Allergy Active Quinolone Unknown Non Drug Allergy Active Latex Unknown Non Drug Allergy Active adhesive tape Unknown Non Drug Allergy Activ e ENCOUNTERS from 1950 to 2020-02-29 Encounter Location Date Provider Diagnosis [address] [address] Feb, 020 Gerard Alas IMMUNIZATIONS No Information SOCIAL HISTORY Tobacco Use: Social History Observation Description Date Details (start date - stop date) Former Smoker Sex Assigned At : Social History Observation Description Sex Assigned At Unknown Audit Question Answer Notes Total Score: 0 Interpretation: Alcohol Education Language: Question Answer Notes Languages spoken: Swedish Holiness: Question Answer Notes Holiness No yarsanism beliefs that would impact health care. Sexual [...] at 730 24 at 12 20 at [email or web address] Subcutaneous three times daily ac; MDD 100units [...] Daily for 30 Days Active Vitamin D3 85910 UNIT 1 capsule Orally Active Lantus SoloStar [...] Information RESULTS No Results REASON FOR VISIT No Information MEDICAL (GENERAL) HISTORY Type Description Date Medical [...] at 730 24 at 12 20 at [email or web address] Subcutaneous three times daily ac; MDD 100units for 30 Days May Have - wedge pillow nightly before bedtime for 999 days Feb, Eliquis 5 MG 1 tab Orally bid Next Appt Details Provider Name:Hilda Castanon, - 08:30:00 AM, [address] [place] [address], [phone], Provider Name:Hilda Castanon, - 09:30:00 AM, [address] [place] [address], [phone], Provider Name:Gerard Alas, 2020-05-26 0 1:15:00 PM, [address] [place] [address], [phone], Insurance Providers Payer Name Payer Address Payer Phone Insured Name Patient Relati onship to Insured Coverage Start Date Coverage End Date HUMANA GOLD [address] [address] [facility] [address] [place] self MEDICAID [employer] [address] [facility] [id number] [place] self
--- OUTSIDE RECORDS SUMMARY | 2020-04-12 13:02 | CCD ---
Author Author [facility] Organization [facility] Address Unknown Phone Unavailable Care Team Providers Care Fire Marshal Name Role Phone Hilda Castanon Unavailable PROBLEMS Type Condition ICD9-CM Code [id number] Code Onset Dates Condition S tatus SNOMED Code Notes Problem Rheumatoid factor positive R76.8 Active 89919 9004 Problem Trigger finger of both hands M65.30 Active 156 43161600794510 Problem Arthralgia, unspecified joint M25.50 Active 57 144361 Problem Hyperplastic colonic polyp, unspecified part of colon K63.5 Active 022993966 Problem Current mild episode of kirby r depressive disorder, unspecified whether recurrent F32.0 Active 10007024 Problem Vitamin D deficiency E55.9 Active 11196056 Problem Cervical cancer screening Z12.4 Active 199458 001 Problem Primary osteoarthritis of both knees M17.0 Act chris 742505275 Problem Diabetic polyneuropathy associated with type 2 d iabetes mellitus E11.42 Active 959154792 Problem Pre-syncope R55 Active 070173440 Problem Constipation, unspecified constipation type K59.00 Active 49524286 Problem DDD (degenerative disc disease), lumbar M51.36 Active 94535905 Problem Gastroesophageal reflux disease, esophagitis pre sence not specified K21.9 Active 898638228 Problem Breast cancer screening Z12.39 Active 59894692 1 Problem Essential hypertension I10 Active 42504367 Problem Personal history of pulmonary embolism Z86.711 A ctive 446970758 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 Activ e 291565881 Problem Chronic kidney disease, stage 3 (moderate) N18.3 Active 313212528 Problem Chronic obstructive pulmonary disease, unspecified COPD ty pe J44.9 Active 49838891 Problem Seasonal allergic rhinitis due to pollen J30.1 Active 45410004 Problem Hiatal hernia K44.9 Active 80708171 Problem Adenomatous polyp of ascending colon D12.2 Act chris 593233151 Problem H/O deep venous thrombosis Z86.718 Active 25027 8001 Problem Mixed hyperlipidemia E78.2 Active 003338834 Problem Type 2 diabetes mellitus with diabetic chronic kidney disease E11.22 Active 98909715 Problem History of pulmonary embolus (PE) Z86.711 Active 385645829 Problem Fatty liver K76.0 Active 434897043 ALLERGIES Allergen (clinical drug ingredient) Drug/Non Drug Allergy do cumented on EMR Reaction Allergy Type Onset Date Status Metoprolol & Diet Manage Prod Unknown Drug Allergy Active rubber Unknown Non Drug Allergy Active Motrin constipation Drug Allergy Active Quinolone Unknown Non Drug Allergy Active Latex Unknown Non Drug Allergy Active adhesive tape Unknown Non Drug Allergy Activ e ENCOUNTERS from 1950 to 2020-02-24 Encounter Location Date Provider Diagnosis [address] [address] Feb, Hilda Castanon IMMUNIZATIONS No Information SOCIAL HISTORY Tobacco Use: Social History Observation Description Date Details (start date - stop date) Former Smoker Sex Assigned At : Social History Observation Description Sex Assigned At Unknown Audit Question Answer Notes Total Score: 0 Interpretation: Alcohol Education Language: Question Answer Notes Languages spoken: Croatian Lutheran: Question Answer Notes Lutheran No latter day beliefs that would impact health care. Sexual [...] Notes Start Da te End Date Status Norvasc 5mg 1 tab orally Daily for 30 Days Active Acetaminophen 8 Hour Acti ve Tylenol 8 Hour Arthritis Pain 650 MG 1 tab Orally bid for 30 Day s Jun, Active NovoLog 100 UNIT/ML as directed; MDD 60units Sub cutaneous give 24 units at 7 am and 30 units at noon for 30 Days Jan, Active Hydrocodone-Acetaminophen 5-325 MG (Schedule II Drug) TAKE 1-2 TABLETS BY MOUTH EVERY 4-6 HOURS NEEDED FOR PAIN MAX DAILY DOSE EIGHT TABLETS Oral for 3 Dec, Active Omeprazole 40 MG 1 capsule Orally Once a day Active Chlorthalidone 25 MG 1 tab Orally Once a day for 30 Days Active Lyrica 200 MG 1 capsule 1 to 3 hours before bedtime Orally bid for 30 Days Dec, Active Multivitamin & Mineral _ 1 tab orally Daily for 30 Days Active Cerovite Senior - 1 tab Orally Daily for 30 Days 08 August, 020 Active Vitamin D3 68701 UNIT 1 capsule Orally Active Advair Diskus 100-50 MCG/DOSE 1 puff Inhalation Twice a day for 30 Days Feb, Active Senna Sodium 8.6-50 MG 2 tablet in the evening as needed Orally Onc e a day Not-Taking Victoza 18 MG/3ML 1.2 units Subcutaneous Daily Active Cymbalta 60 MG 1 cap po twice daily for 30 Days Aug, 20 Active Polyethylene Glycol 3350 - as directed Not-Taking Walker - 4 wheeled walker with seat DX M51.36 for 999 days July, Active Albuterol Sulfate (2.5 MG/3ML) 0.083% 3 ml as needed I nhalation every 8 hrs for 30 Days Active Admelog SoloStar 100 UNIT/ML 24 at 730, 30 at 12 Subcutaneous bid Active May Have - compression stocking 15mmhg circ. at calf 43cm, size 12 shoe women's entire sock included topically Daily while out of bed for 999 days July, Active May Have - rolator _ Daily for 999 days Active ProAir HFA 108 (90 Base) MCG/ACT 2 puff as needed Inha lation every 4 hrs: keep at bedside for 30 Days July, Active Lantus SoloStar 100 UNIT/ML 74 at 8, 40 at 20 Subcutaneous bid Active Potassium Chloride Padmini ER 20 MEQ 1 tablet with food Orally Once a da y Active Colace 100 MG 2 capsule as needed Orally before bedtime for 30 Days Not-Taking Fluticasone Propionate 50 MCG/ACT 2 spray in each nost ril Nasally Once a day for 30 days Not-Taking Eliquis 5 MG 1 tab Orally bid Active BD AutoShield Duo 30G X 5 MM DX E11.22 In vitro bid for 30 Days July, Active Fenofibrate 160 MG 1 tablet with food Orally Once a day for 30 Days Not-Taking Pravastatin Sodium 40 MG 1 tablet Orally Once a day for 30 Days Active PROCEDURES No Information RESULTS No Results REASON FOR VISIT ER Visit [facility] 02/22; pain, SOB MEDICAL (GENERAL) [...] deficiency Medical History BERYL on chronic CPAP Surgical History right arm lipoma removal Surgical History lower back surgery x2 1969's Surgical History Hysterectomy 1979 Hospitalization History surgery Hospitalization History childbirth Hospitalization [...] Medication Name Sig Start Date Stop Date Lantus SoloStar 100 UNIT/ML 74 at 8, 40 at 20 Subcutaneous bid Eliquis 5 MG 1 tab Orally bid Admelog SoloStar 100 UNIT/ML 24 at 730, 30 at 12 Subcutaneous bi d Victoza 18 MG/3ML 1.2 units Subcutaneous Daily ProAir HFA 108 (90 Base) MCG/ACT 2 puff as needed Inha lation every 4 hrs: keep at bedside for 30 Days July, Norvasc 5mg 1 tab orally Daily for 30 Days Potassium Chloride Padmini ER 20 MEQ 1 tablet with food Orally Once a day Advair Diskus 100-50 MCG/DOSE 1 puff Inhalation Twice a day for 30 Days Feb, Chlorthalidone 25 MG 1 tab Orally Once a day for 30 Days Next Appt Details Provider Name:Hilda Harris Kina, 2019-03 02:00:00 PM, [address] [place] [address], [phone], Provider Name:Hilda Castanon, 04-22 09:30:00 AM, [address] [place] [address], [phone], Insurance Providers Payer Name Payer Address Payer Phone Insured Name Patient Relati onship to Insured Coverage Start Date Coverage End Date MEDICAID [employer] [address] [facility] [id number] [place] self [facility] [address] [address] [facility] [address] [place]JU [place]ILL[place] self
--- OUTSIDE RECORDS SUMMARY | 2020-04-12 13:02 | CCD ---
Author Author [facility] Organization [facility] Address Unknown Phone Unavailable Care Team Providers Care Director Of Employer Services Name Role Phone Hilda Castanon Unavailable PROBLEMS Type Condition ICD9-CM Code MOJ09-EM Code Onset Dates Condition S tatus SNOMED Code Notes Problem Rheumatoid factor positive R76.8 Active 63118 9004 Problem Trigger finger of both hands M65.30 Active 156 36880911857489 Problem Arthralgia, unspecified joint M25.50 Active 57 418135 Problem DDD (degenerative disc disease), lumbar M51.36 Active 72605163 Problem Gastroesophageal reflux disease, esophagitis pre sence not specified K21.9 Active 179104198 Problem H/O deep venous thrombosis Z86.718 Active 11231 8001 Problem Seasonal allergic rhinitis due to pollen J30.1 Active 11554324 Problem Primary osteoarthritis of both knees M17.0 Act chris 303457368 Problem Diabetic polyneuropathy associated with type 2 d iabetes mellitus E11.42 Active 774053616 Problem Fatty liver K76.0 Active 218104774 Problem History of pulmonary embolus (PE) Z86.711 Active 610611792 Problem Pre-syncope R55 Active 634984815 Problem Constipation, unspecified constipation type K59.00 Active 98393913 Problem Essential hypertension I10 Active 14155826 Problem Breast cancer screening Z12.39 Active 11168351 1 Problem Cervical cancer screening Z12.4 Active 670846 001 Problem Mixed hyperlipidemia E78.2 Active 142662641 Problem Hyperplastic colonic polyp, unspecified part of colon K63.5 Active 814469594 Problem Type 2 diabetes mellitus with diabetic chronic kidney disease E11.22 Active 77302202 Problem Current mild episode of kirby r depressive disorder, unspecified whether recurrent F32.0 Active 45094403 Problem Adenomatous polyp of ascending colon D12.2 Act chris 352583618 Problem Vitamin D deficiency E55.9 Active 13303188 Problem Personal history of pulmonary embolism Z86.711 A ctive 089372926 Problem 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 Activ e 116484282 Problem Chronic kidney disease, stage 3 (moderate) N18.3 Active 678048235 ALLERGIES Allergen (clinical drug ingredient) Drug/Non Drug Allergy do cumented on EMR Reaction Allergy Type Onset Date Status Metoprolol & Diet Manage Prod Unknown Drug Allergy Active rubber Unknown Non Drug Allergy Active Motrin constipation Drug Allergy Active Quinolone Unknown Non Drug Allergy Active Latex Unknown Non Drug Allergy Active adhesive tape Unknown Non Drug Allergy Activ e ENCOUNTERS from 1950 to 2020-02-18 Encounter Location Date Provider Diagnosis [address] [address] Feb, Hilda Castanon IMMUNIZATIONS No Information SOCIAL HISTORY Tobacco Use: Social History Observation Description Date Details (start date - stop date) Former Smoker Sex Assigned At : Social History Observation Description Sex Assigned At Unknown Audit Question Answer Notes Total Score: 0 Interpretation: Alcohol Education Language: Question Answer Notes Languages spoken: Israeli Cheondoism: Question Answer Notes Cheondoism No mormon beliefs that would impact health care. Sexual [...] Notes Start Da te End Date Status Cymbalta 60 MG 1 cap po twice daily for 30 Days Aug, 20 Active Chlorthalidone 25 MG 1 tab Orally Once a day for 30 Days Active Hydrocodone-Acetaminophen 5-325 MG (Schedule II Drug) TAKE 1-2 TABLETS BY MOUTH EVERY 4-6 HOURS NEEDED FOR PAIN MAX DAILY DOSE EIGHT TABLETS Oral for 3 Dec, Active Lantus SoloStar 100 UNIT/ML 74 at 8, 40 at 20 Subcutaneous bid Active Omeprazole 40 MG 1 capsule Orally Once a day Active Pravastatin Sodium 40 MG 1 tablet Orally Once a day for 30 Days Active NovoLog 100 UNIT/ML as directed; MDD 60units Sub cutaneous give 24 units at 7 am and 30 units at noon for 30 Days Jan, Active Lyrica 200 MG 1 capsule 1 to 3 hours before bedtime Orally bid for 30 Days Dec, Active Multivitamin & Mineral _ 1 tab orally Daily for 30 Days Active Victoza 18 MG/3ML 1.2 units Subcutaneous Daily Active Eliquis 5 MG 1 tab Orally bid Active Acetaminophen 8 Hour Acti ve Vitamin D3 21900 UNIT 1 capsule Orally Active July Have - compression stocking 15mmhg circ. at calf 43cm, size 12 shoe women's entire sock included topically Daily while out of bed for 999 days July, Active Tylenol 8 Hour Arthritis Pain 650 MG 1 tab Orally bid for 30 Day s Jun, Active Norvasc 5mg 1 tab orally Daily for 30 Days Active Polyethylene Glycol 3350 - as directed Active Cerovite Senior - 1 tab Orally Daily for 30 Days 08 August, 020 Active Potassium Chloride Padmini ER 20 MEQ 1 tablet with food Orally Once a da y Active Fenofibrate 160 MG 1 tablet with food Orally Once a day for 30 Days Active Albuterol Sulfate (2.5 MG/3ML) 0.083% 3 ml as needed I nhalation every 8 hrs for 30 Days Active Colace 100 MG 2 capsule as needed Orally before bedtime for 30 Days Active July Have - rolator _ Daily for 999 days Active Senna Sodium 8.6-50 MG 2 tablet in the evening as needed Orally Onc e a day Active Fluticasone Propionate 50 MCG/ACT 2 spray in each nost ril Nasally Once a day for 30 days Active Walker - 4 wheeled walker with seat DX M51.36 for 999 days July, Active ProAir HFA 108 (90 Base) MCG/ACT 2 puff as needed Inha lation every 4 hrs for 30 Days July, Active BD AutoShield Duo 30G X 5 MM DX E11.22 In vitro bid for 30 Days July, Active PROCEDURES No Information RESULTS No Results REASON FOR VISIT Refill Lyrica MEDICAL (GENERAL) HISTORY Type Description Date Medical History T2DM IR Medical History COPD Medical History RLS Medical History hypertension, essential [...] Medication Name Sig Start Date Stop Date NovoLog 100 UNIT/ML as directed; MDD 60units Sub cutaneous give 24 units at 7 am and 30 units at noon for 30 Days Jan, Tylenol 8 Hour Arthritis Pain 650 MG 1 tab Orally bid for 30 Day s Jun, Potassium Chloride Padmini ER 20 MEQ 1 tablet with food Orally Once a day Victoza 18 MG/3ML 1.2 units Subcutaneous Daily Multivitamin & Mineral _ 1 tab orally Daily for 30 Days Eliquis 5 MG 1 tab Orally bid Lantus SoloStar 100 UNIT/ML 74 at 8, 40 at 20 Subcutaneous bid Norvasc 5mg 1 tab orally Daily for 30 Days Lyrica 200 MG 1 capsule 1 to 3 hours before bedtime Or ally bid for 30 Days Dec, Chlorthalidone 25 MG 1 tab Orally Once a day for 30 Days Next Appt Details Provider Name:Hilda Castanon, 2019-03 10:45:00 AM, [address] [place], [address], Insurance Providers Payer Name Payer Address Payer Phone Insured Name Patient Relati onship to Insured Coverage Start Date Coverage End Date MEDICAID [employer] [address] [facility] [id number] [place] self [facility] [address] [address] [facility] [address] [place] self
--- OUTSIDE RECORDS SUMMARY | 2020-04-12 13:02 | CCD | Continuity of Care Document ---
Author Author Angelita JIMENEZ DPM Organization Unknown Address [address] [place] [address], [facility] [address] [place] [address] Phone [phone] Care Team Providers Care News Content Specialist Name Role Phone BEV CastanonM [phone] Problems Active Problems Provider Date Bunion Drew Jimenez DPM Onset: 10/19/2017 Type 2 diabetes mellitus with diabetic polyneuropathy Drew Jimenez DPM Onset: 10/19/2017 Onychomycosis Drew Jimenez DPM Onset: 10/19/2017 Social History Type Date Description Comments Sex Unknown ETOH Use Denies alcohol use Tobacco Use Start: Unknown End: Unknown Patient is a former smoker Tobacco Use Start: Unknown Quit 9 years ago after many year s of 1-2 PPD habit. Allergies, Adverse Reactions, Alerts Active Allergies Reaction Severity Comments Date Latex 10/03/2017 Prilosec 10/03/2017 Cipro 10/03/2017 Codeine 10/03/2017 Medications Active Medications SIG Qnty Indications Ordering Provide r Date Ra Vitamin B-12 TR 1000mcg Tablets ER take 1 tablet by mouth once daily Unknown Amitriptyline HCL 10mg Tablets Unknown Victoza 18mg/3ML Solution Pen-Inject Unknown Advair Diskus 100-50mcg/Dose Aerosol Unknown Suprep Bowel Prep Kit 17.5-3.13-1.6GM/180ML Solution take as directed by prescriber Unknown Lisinopril 40mg Tablets Unknown Trazodone HCL 50mg Tablets Unknown Onetouch Delica Lancets Extra Fine 33G Misc Unknown Vitamin D (Ergocalciferol) 93944Zhdg Capsules Take Two Capsules By Mouth Every Week Unk nown Fluconazole 150mg Tablets Take One Tablet By Mouth Once Unknown Humulin 70/30 (70-30 )100Unit/ML Suspension Unknown Chlorthalidone 50mg Tablets Unknown Pravastatin Sodium 40mg Tablets Unknown Fenofibrate 160mg Tablets Take One Tablet By Mouth Once Daily Unknown Fluticasone Propionate 50mcg/Act Suspension Instill Two Sprays In Each Nostril Once Daily Unknown Glipizide ER 10mg Tablets ER 24HR Take Two Tablets By Mouth Daily Unknown 0 Metformin HCL 1000mg Tablets Take One Tablet By Mouth Twice Daily Unknown Metoprolol Succinate ER 50mg Tablets ER 24HR Take One Tablet By Mouth Once Daily Unkno wn Venlafaxine HCL ER 75mg Caps ER 24 HR Take One Capsule By Mouth Once Daily Unknown Onetouch Ultra Blue Strips Unknown Immunizations Description No Information Available Vital Signs Date Vital Result Comment 10/10/2017 9:27am Height 66 inches 5'6" Weight 246.00 lb BP Systolic 140 mmHg BP Diastolic 80 mmHg Heart Rate 68 /min BMI (Body Mass Index) 39.7 kg/m2 10/03/2017 9:07am Height 66 inches 5'6" Weight 246.00 lb BP Systolic 140 mmHg BP Diastolic 80 mmHg Heart Rate 68 /min BMI (Body Mass Index) 39.7 kg/m2 Results Description No Information Available Procedures Date Code Description Status 02/13/2020 30612 Debridement 6-10 Nails Electric Completed 12/05/2019 94205 Debridement 6-10 Nails Electric Completed 09/26/2019 99132 Debridement 6-10 Nails Electric Completed Medical Devices Description No Information Available Encounters Description No Information Available Assessments Date Code Description Provider 02/13/2020 B35.1 Tinea doloresuium Drew Jimenez DPM 02/13/2020 E11.42 Type 2 diabetes mellitus with di abetic polyneuropathy Drew Jimenez DPM 12/05/2019 B35.1 Tinea maria esther Jimenez DPM 12/05/2019 E11.42 Type 2 diabetes mellitus with di abetic polyneuropathy Drew Jimenez DPM 09/26/2019 B35.1 Tinea unguium Derw Jimenez DPM 09/26/2019 E11.42 Type 2 diabetes mellitus with di abetic polyneuropathy Drew Jimenez DPM Plan of Treatment Future Appointment(s):* 04/23/2020 10:45 am - Drew Jimenez DPM at [facility] Functional Status Description No Information Available Mental Status Description No Information Available Referrals Description No Information Available
--- OUTSIDE RECORDS SUMMARY | 2020-04-12 13:02 | CCD | Continuity of Care Document ---
Author Organization Unknown Address Unknown Phone Unavailable Care Team Providers Care Automotive Sales Representative Name Role Phone Shoaib Daley MD AUTM [phone] Caren Yee DO AUTM [phone] Riaz Mitchell MD AUTM [phone] Hilda Castanon AUTM [phone] Problems Description No Information Available Social History Type Date Description Comments Sex Unknown ETOH Use Occasionally consumes wine Tobacco Use Start: Unknown End: Unknown Patient is a former smoker started at age 10, stopped 10 years ago Smoking Status Reviewed: 08/13/19 Patient is a former smoker st arted at age 10, stopped 10 years ago Exercise Type/Frequency Physical Therapy Once a week - not currently due to COVID19 Exercise Type/Frequency Silver Sneakers not curr ently due to COVID19 Exercise Type/Frequency Rick not curr ently due to COVID19 Exercise Limitations Shortness Of Breath Allergies, Adverse Reactions, Alerts Active Allergies Reaction Severity Comments Date Adhesives hives 09/26/2018 Ibuprofen constipation 09/26/2018 Latex rash/hives 09/26/2018 Metoprolol bradycardia 09/26/2018 Morphine burning sensation 09/26/2018 Quinolones unsure 09/26/2018 Medications Active Medications SIG Qnty Indications Ordering Provide r Date Eliquis 5mg Tablets 1 by mouth twice a day 180tabs Shoaib Rawls MD 08/26/2019 Vascepa 1gm Capsules 2 caps by mouth twice a day (take with meals) 360caps E78.2 Shoaib Rawls MD 04/[address] Griggs 1 by mouth every day Shoaib Daley MD 2019 Chlorthalidone 25mg Tablets 1 by mouth every day Thuy, Shoaib T, MD 2019 Valsartan 80mg Tablets 1 by mouth every day Shoaib Daley MD 2019 Lyrica 150mg Capsules 1 by mouth two times a day Shoaib Daley MD 2019 Albuterol Sulfate (2 .5mg/3ML) 0.083% Nebulizer every 4 hours as needed Shoaib Daley MD 2019 Colace 100mg Capsules 2 by mouth once a day Shoaib Daley MD [address] 1 by mouth every day Shoaib Daley MD 2019 Vitamin D3 Super Strength 50mcg (2000 Ut) Capsules 1 by mouth every day Shoaib Daley MD 2019 Proair HFA 108(90Base) mcg/Act Aer osol 2 puffs by mouth as needed Unknown 019 Acetaminophen 500mg Tablets 1-2 by mouth every 6 hours as needed Unknown 09/26/19 19 Lantus Solostar 100U nit/ML Solution Pen-Inject as directed by primary Unknown 09/25 Victoza 18mg/3ML Solution Pen-Inje ct as directed Unknown 09/25/2018 Norvasc 5mg Tablets 1 by mouth every day Unknown 09/25/2018 Multivitamin Adults Tablets 1 by mouth every day Unknown 09/25/2018 Fluticasone Propionate 50mcg/Act Suspension 1 spray each nostril daily as needed Unkn own 09/25/2018 Pravastatin Sodium 40mg Tablets 1 by mouth every night at bedtime Unknown 9 Klor-Con M20 20Meq Tablets ER 1 by mouth every day Unknown 09/25/2018 Polyethylene Glycol 1000 Powder mix 17 g in 4-8 oz fluid daily Unknown 09/25/2018 Humalog Kwikpen 100U nit/ML Solution Pen-Inject inject as directed per sliding scale Unkn own 09/25/2018 Immunizations Description No Information Available Vital Signs Date Vital Result Comment 08/13/2019 12:15pm Weight 283.00 lb Home Weight 281lb yesterday Height 66 inches 5'6" BMI (Body Mass Index) 45.7 kg/m2 Heart Rate 65 /min BP Systolic Sitting 115 mmHg CBP large cuff, Ra BP Diastolic Sitting 55 mmHg CBP large cuff, Ra 09/26/2018 2:24pm Weight 262.00 lb Home Weight 258lb Height 66 inches 5'6" BMI (Body Mass Index) 42.3 kg/m2 Heart Rate 67 /min BP Systolic Sitting 110 mmHg Omron large adult cu ff, Ra BP Diastolic Sitting 58 mmHg Omron large adult c uff, Ra Results Test Acquired Date Facility Test Result H/L Range Note CBC without Differential 02/23/2020 [facility] - not inter faced (315)- - White Blood Count 6.9 4.0-10.0 Red Blood Count 4.12 4.00-5.40 Platelets 245 150-450 Hemoglobin 11.3 Hematocrit 35.1 Procedures Description No Information Available Medical Devices Description No Information Available Encounters Description No Information Available Assessments Description No Information Available Plan of Treatment Future Appointment(s):* 03/11/2020 11:15 am - BEV Welch at Main Office 08/13/2019 - Shoaib Rawls MD* I25.10 Atherosclerotic heart disease of [place] coronary artery without angina pectoris* New Medication:* Aspirin Ec 81 mg - 1 by mouth every day * Clopidogrel Bisulfate 75 mg - 1 by mouth every day * Recommendations:* Results of the patient's cardiac nuclear stress test from 10/23/2018 was reviewed with the patient. It showed a reversible mild size, moderate intensity inferior wall myocardial perfusion defect consistent with regadenoson inducible coronary flow maldistribution in the RCA territory. Medical therapy versus cardiac catheterization +/- PCI were discussed with the patient. Patient was interested in pursuing cardiac catheterization with possible percutaneous coronary intervention. Arrangements in progress for the patient to undergo elective outpatient cardiac catheterization with possible percutaneous coronary prevention at [facility] to be performed by pest control chemical technician Dr. Riaz Mitchell. Aspirin 81 mg daily and clopidogrel 75 mg daily were prescribed as a prerequisite for possible percutaneous coronary intervention. Eliquis was discontinued to reduce the risk of bleeding while she is on aspirin and clopidogrel. As noted below, she was changed from fenofibrate to Vascepa. Continue valsartan, aml odipine, pravastatin at the current dosages. CBC & BMP were ordered as a prerequisite for cardiac catheterization. * R94.39 Abnormal result of other cardiovascular function study * R07.9 Chest pain, unspecified * I10 Essential (primary) hypertension * R94.31 Abnormal electrocardiogram [ECG] [EKG] * E66.01 Morbid (severe) obesity due to excess calories* Recommendations:* PCRM power plate: Consume food from the following 4 food groups: Fruits, vegetab les, intact whole grains, beans & legumes. Avoid animal products. Avoid processed foods. * E78.2 Mixed hyperlipidemia* New Medication:* Vascepa 1 gm - 2 caps by mouth twice a day (take with meals) * Recommendations:* Fenofibrate was discontinued and replaced with Vascepa. Vascepa 2 g twice a day with meals was prescribed. Continue pravastatin at the current dosage. Nutrition advice as described above. * Z71.3 Dietary counseling and surveillance * All * Follow up:* Clinic visit in [address] Rawls. Functional Status Functional Condition Comment Date Status Independent with bathing Active Independent with dressing Active Independent with feeding Active Independent with grooming Active Independent with standing Active Independent with toileting Activ e Requires assistance with ambulating uses a cane or walker Active Mental Status Description No Information Available Referrals Description No Information Available
--- OUTSIDE RECORDS SUMMARY | 2020-04-12 13:02 | CCD ---
Author Author [facility] Organization [facility] Address Unknown Phone Unavailable Care Team Providers Care Administration Intern Name Role Phone Hilda Castanon Unavailable PROBLEMS Type Condition ICD9-CM Code DLE25-AQ Code Onset Dates Condition S tatus SNOMED Code Notes Problem Rheumatoid factor positive R76.8 Active 32724 9004 Problem Trigger finger of both hands M65.30 Active 156 47801333070313 Problem Arthralgia, unspecified joint M25.50 Active 57 779198 Problem Hyperplastic colonic polyp, unspecified part of colon K63.5 Active 821260788 Problem Current mild episode of kirby r depressive disorder, unspecified whether recurrent F32.0 Active 97877027 Problem Vitamin D deficiency E55.9 Active 02995799 Problem Cervical cancer screening Z12.4 Active 763017 001 Problem Primary osteoarthritis of both knees M17.0 Act chris 530145975 Problem Diabetic polyneuropathy associated with type 2 d iabetes mellitus E11.42 Active 063541108 Problem Pre-syncope R55 Active 186708205 Problem Constipation, unspecified constipation type K59.00 Active 65157032 Problem DDD (degenerative disc disease), lumbar M51.36 Active 11928543 Problem Gastroesophageal reflux disease, esophagitis pre sence not specified K21.9 Active 936204187 Problem Breast cancer screening Z12.39 Active 94358004 1 Problem Essential hypertension I10 Active 29241589 Problem Personal history of pulmonary embolism Z86.711 A ctive 552944970 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.4 Activ e 453797314 Problem Chronic kidney disease, stage 3 (moderate) N18.3 Active 921535042 Problem Chronic obstructive pulmonary disease, unspecified COPD ty pe J44.9 Active 83722045 Problem Seasonal allergic rhinitis due to pollen J30.1 Active 44269077 Problem Hiatal hernia K44.9 Active 32807819 Problem Adenomatous polyp of ascending colon D12.2 Act chris 147073790 Problem H/O deep venous thrombosis Z86.718 Active 29293 8001 Problem Mixed hyperlipidemia E78.2 Active 494774658 Problem Type 2 diabetes mellitus with diabetic chronic kidney disease E11.22 Active 38208219 Problem History of pulmonary embolus (PE) Z86.711 Active 963159616 Problem Fatty liver K76.0 Active 816697263 ALLERGIES Allergen (clinical drug ingredient) Drug/Non Drug [...] to 2020-02-28 Encounter Location Date Provider Diagnosis [address] [address] Feb, Hilda Castanon DDD (degenerative disc disease), lumbar M51.36 IMMUNIZATIONS No Information SOCIAL HISTORY Tobacco Use: Social History Observation Description Date Details (start date - stop date) Former Smoker Sex Assigned At : Social History Observation Description Sex Assigned At Unknown Audit Question Answer Notes Total Score: 0 Interpretation: Alcohol Education Language: Question Answer Notes Languages spoken: Ukrainian Taoism: Question Answer Notes Taoism No rastafarian beliefs that would impact health care. Sexual [...] at 730 24 at 12 20 at [email or web address] Subcutaneous three times daily ac; MDD 100units [...] Daily for 30 Days Active Vitamin D3 32661 UNIT 1 capsule Orally Active Lantus SoloStar [...] Information RESULTS No Results REASON FOR VISIT New Rx for increased Lyrica MEDICAL (GENERAL) HISTORY Type Description Date [...] at 730 24 at 12 20 at [email or web address] Subcutaneous three times daily ac; MDD 100units for 30 Days May Have - wedge pillow nightly before bedtime for 999 days Feb, Eliquis 5 MG 1 tab Orally bid Next Appt Details Provider Name:Hilda Castanon, 1- 08:30:00 AM, [address] [place] [address], [phone], Provider Name:Hilda Castanon, 2- 09:30:00 AM, [address] [place] [address], [phone], Provider Name:Gerard Alas, 2020-05-26 0 1:15:00 PM, [address] [place] [address], [phone], Insurance Providers Payer Name Payer Address Payer Phone Insured Name Patient Relati onship to Insured Coverage Start Date Coverage End Date [employer] [address] [address] [facility] [address] [place] [facility] MEDICAID [employer] [address] [facility] [id number] [place]
--- OUTSIDE RECORDS SUMMARY | 2020-04-12 13:03 | CCD | Continuity of Care Document ---
Author Author Angelita LANDAVERDE MD Organization Unknown Address [address] [place] [id number] Phone [phone] Care Team Providers Care Intake Coordinator Name Role Phone Hilda Castanon AUTM Problems Active Problems Provider Date Obstructive sleep apnea syndrome Maggie Mortensen A.N.P. Onset: 11/01/2010 Social History Type Date Description Comments Sex Unknown ETOH Use Never used alcohol Tobacco Use Start: 03/13/60 End: 03/13/07 Patient is a forme r smoker 1-3 packs per day Smoking Status Reviewed: 12/12/19 Patient is a former smoker 1- 3 packs per day Allergies, Adverse Reactions, Alerts Active Allergies Reaction Severity Comments Date Latex 05/02/2011 Ibuprofen 05/02/2011 Morphine Itching When Given In Large Amounts 03/22/2019 Medications Active Medications SIG Qnty Indications Ordering Provide r Date Milk Of Magnesia 7.75% Suspension take 45 milliliters by mouth about 1-2 days before colonoscopy prep 360ml Shoaib Landaverde MD 08/09/2019 Trilyte 420gm Solution Rec use as directed by doctor for bowel prep 4000units Shoaib Landaverde MD 2019 Colace 100mg Capsules 1 tab by mouth twice a day before meal. avoid if having diarrhea. Unk nown Vitamin D-3 25mcg (1000 Ut) Capsules Unknown Miralax Powder 17 g in 8 oz of water or juice by mouth every day as needed for constipation Unknown Proair HFA 108(90Base) mcg/Act Aer osol 2 puffs four times a day as needed Unknown Potassium Chloride 2 0Meq/15ML (10%) Solution Unknown Multivitamin Adult Tablets 1 by mouth every day Unknown Chlorthalidone 25mg Tablets 2 tabs daily Unknown Omeprazole 40mg Capsules DR 1 by mouth every day Unknown Amlodipine Besylate 5mg Tablets Unknown Lantus 100Unit/ML Solution bi d Unknown Cymbalta 60mg Caps DR Part 1 by mouth every day Unknown Pregabalin 75mg Capsules bid Unknown Eliquis 5mg Tablets 1 tab by mouth twice a day Unknown Humalog Kwikpen 100U nit/ML Solution Pen-Inject 25 units 4 times daily Unknown Victoza 18mg/3ML Solution Pen-Inje ct once a day Unknown Acetaminophen Extra Strength 500mg Tablets 1 tab by mouth three times a day. (as needed for pain). Unknown Valsartan 40mg Tablets 1 by mouth once daily Unknown Fosamax 70mg Tablets 1 tab by mouth every week Unknown Drisdol 46217Akdg Capsules 1 tab by mouth every month Unknown CPAP CPAP 19 franciscan Unknown Fluticasone Propionate 50mcg/Act Suspension 2 sprays each nostril every day 1units Unknown Pravastatin Sodium 40mg Tablets every day Unknown Fenofibrate 160mg Tablets Unknown Immunizations Description No Information Available Vital Signs Date Vital Result Comment 12/12/2019 1:54pm BP Systolic 118 mmHg BP Diastolic 70 mmHg Heart Rate 73 /min O2 % BldC Oximetry 95 % Room Air Height 64 inches 5'4" [place] Body Weight 120 lb 08/09/2019 8:51am BP Systolic 131 mmHg BP Diastolic 69 mmHg Height 64 inches 5'4" Weight 280.00 lb BMI (Body Mass Index) 48.1 kg/m2 [place] Body Weight 120 lb Weight 127.008 kg BSA (Body Surface Area) 2.26 m2 Results Test Acquired Date Facility Test Result H/L Range Note Laboratory test finding 01/21/2020 [facility] [address] [place] [address] [phone] Pathology Request For Service (SEE NOTE) 1 Laboratory test finding 01/21/2020 [facility] [address] [place] [address] [phone] Bedside Glucose 182 mg/dL High 80-115 2 1 FINAL DIAGNOSIS Colon, hepatic flexure polypoid mass, cold snare polypectomy: Fragments of tubular adenoma. 01/23/2020 - 1154 CLINICAL DIAGNOSIS Melena 01/22/2020 - 1250 GROSS DIAGNOSIS Received in formalin labeled "snare polyp mass @ hepatic flexure" are multiple fragments of frias tissue and fecal material measuring 1.5 x 1.0 x 0.3 cm. in aggregate. All in one. -SV 01/22/2020 - 1250 Signed MARCO ANTONIO PANDEY MD 01/23/2020 1536 2 DrMaryorder not to draw Procedures Date Code Description Status 01/21/2020 01332 Colonoscopy W/ Poly Completed 01/21/2020 50719 Colonoscopy,W/Directed Submucosa l Injections, Any Substance Completed 01/21/2020 86793 Endoscopy Upper GI Complex Diagn ostic Completed Medical Devices Description No Information Available Encounters Type Date Location Provider Dx Diagnosis Office Visit 12/12/2019 2:00p [facility] Omari Ingram MD G47.33 Obstructive sleep apnea (adult) (pediatr ic) Office Visit 08/09/2019 9:00a [facility] Shoaib Landaverde MD K92.1 [place] K62.5 Hemorrhage of anus and rectu m Office Visit 08/02/2019 9:15a [facility] Omari Ingram MD G47.33 Obstructive sleep apnea (adult) (pediatr ic) Assessments Date Code Description Provider 01/21/2020 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 Shoaib Landaverde MD 01/21/2020 K57.30 Diverticulosis of la rge intestine without perforation or abscess without bleeding Shoaib Landaverde MD 01/21/2020 K64.8 Other hemorrhoids Shoaib Landaverde MD 01/21/2020 K92.1 Rachel Landaverde MD 12/12/2019 G47.33 Obstructive sleep apnea (adult) (pediatric) Wallace Ingram MD 08/09/2019 K92.1 Rachel Landaverde MD 08/09/2019 K62.5 Hemorrhage of anus and rectum Da vida Landaverde MD 08/02/2019 G47.33 Obstructive sleep apnea (adult) (pediatric) Wallace Ingram MD Plan of Treatment Future Appointment(s):* 12/21/2020 9:00 am - Wallace Ingram MD at [facility] Pulmonary[facility]Thoracic 12/12/2019 - Wallace Ingram MD* G47.33 Obstructive sleep apnea (adult) (pediatric) * * Comments:* ~At this point, she is to continue her current regimen. She was applauded for her compliance. She is up to date on mask, filters and supplies. I have offered her a visit here at least yearly or sooner if problems arise with which we can be of assistance. We offered her emotional support. * Follow up:* 12 months....no testing Functional Status Description No Information Available Mental Status Description No Information Available Referrals Refer to Reason for Referral Status Appt Date Shoaib Landaverde MD EGD colo THANIA per website pre auth list Create d [facility], Gastroenterology [address] [place] [address], [address] [place] [address] [phone]
--- OUTSIDE RECORDS SUMMARY | 2020-04-12 13:04 | CCD ---
Author Author [facility] Organization [facility] Address Unknown Phone Unavailable Support Name Relationship Address Phone TESSIE HORTENSIA Next Of Kin [address] [place] [address] CATHIE HORTENSIA Next Of Kin [address] [place] [id number] [facility] JEANNA FRANCIENIC Next Of Kin [place] [id number] Natali Martinez Next Of Kin [address] [place] [address] [place] [address] Jocy Castillo Next Of Kin [address] [place] [address] Tova Alvarado Next Of Kin [address] [place] [address] RACHEL LEIVA Next Of Kin [address] [facility] [address] [address] HORTENSIA LEIVA Next Of Kin [address] [place] [address] MACI LEIVA Next Of Kin [address] [facility] [address] [address] Jesse PAZ Next Of Kin [address] [address] RE Next Of Kin Unknown Unavailable RETIRED Next Of Kin Unknown Unavailable UE Next Of Kin Unknown Unavailable INEZ PAZ Next Of Kin [address] [facility] [address] [place] [address] ANA PATIÑO Next Of Kin Unknown Unavailable TOÑ[place] [address] U DIS, DISABLED Next Of Kin Unknown Unavailable COUSINSFORD Next Of Kin [address] [place] [address] DISABLED Next Of Kin Unknown Unavailable [place] [address] FLORECITA GUIDRY Next Of Kin [address] [place] [address] LEIVARACHEL ECON [address] [facility] [address] [place] [address] Unavailable TorinoFrancieHortensia ECON Unknown Unavailable FLORECITA PEREZ ECON , [place] [phone] Cousins, Rachel ECON Unknown Unavailable Care Team Providers Care Biomedical Engineer Name Role Phone ANTECOL, Joe GARRETT MD Unavailable Unavailable ANTECOL, Joe GARRETT MD Unavailable Unavailable ANTECOL, Joe GARRETT MD Unavailable Unavailable ANTECOL, Joe GARRETT MD Unavailable Unavailable ANTECOL, Joe GARRETT MD Unavailable Unavailable ANTECOL, Joe GARRETT MD Unavailable Unavailable ANTECOL, Joe GARRETT MD Unavailable Unavailable ANTECOL, Joe GARRETT MD Unavailable Unavailable ANTECOL, Joe GARRETT MD Unavailable Unavailable ANTECOL, Joe GARRETT MD Unavailable Unavailable ANTECOL, Joe GARRETT MD Unavailable Unavailable ANTECOL, Joe GARRETT MD Unavailable Unavailable ANTECOL, Joe GARRETT MD Unavailable Unavailable ANTECOL, Joe GARRETT MD Unavailable Unavailable ANTECOL, Joe GARRETT MD Unavailable Unavailable ANTECOL, Joe GARRETT MD Unavailable Unavailable ANTECOL, Joe GARRETT MD Unavailable Unavailable ANTECOL, Joe GARRETT MD Unavailable Unavailable ANTECOL, Joe GARRETT MD Unavailable Unavailable ANTECOL, Joe GARRETT MD Unavailable Unavailable ANTECOL, Joe GARRETT MD Unavailable Unavailable ANTECOL, Joe GARRETT MD Unavailable Unavailable ANTECOL, Joe GARRETT MD Unavailable Unavailable ANTECOL, Joe GARRETT MD Unavailable Unavailable ANTECOL, Joe GARRETT MD Unavailable Unavailable ANTECOL, Joe GARRETT MD Unavailable Unavailable ANTECOL, Joe GARRETT MD Unavailable Unavailable ANTECOL, Joe GARRETT MD Unavailable Unavailable ANTECOL, Joe GARRETT MD Unavailable Unavailable ANTECOL, Joe GARRETT MD Unavailable Unavailable ANTECOL, Joe GARRETT MD Unavailable Unavailable ANTECOL, Joe GARRETT MD Unavailable Unavailable ANTECOL, Joe GARRETT MD Unavailable Unavailable ANTECOL, Joe GARRETT MD Unavailable Unavailable ANTECOL, Joe GARRETT MD Unavailable Unavailable ANTECOL, Joe GARRETT MD Unavailable Unavailable ANTECOL, Joe GARRETT MD Unavailable Unavailable ANTECOL, Joe GARRETT MD Unavailable Unavailable ANTECOL, Joe GARRETT MD Unavailable Unavailable ANTECOL, Joe GARRETT MD Unavailable Unavailable ANTECOL, Joe GARRETT MD Unavailable Unavailable ANTECOL, Joe GARRETT MD Unavailable Unavailable ANTECOL, Joe GARRETT MD Unavailable Unavailable ANTECOL, Joe GARRETT MD Unavailable Unavailable ANTECOL, Joe GARRETT MD Unavailable Unavailable ANTECOL, Joe GARRETT MD Unavailable Unavailable ANTECOL, Joe GARRETT MD Unavailable Unavailable ANTECOL, Joe GARRETT MD Unavailable Unavailable ANTECOL, Joe GARRETT MD Unavailable Unavailable ANTECOL, Joe GARRETT MD Unavailable Unavailable ANTECOL, Joe GARRETT MD Unavailable Unavailable ANTECOL, Joe GARRETT MD Unavailable Unavailable ANTECOL, Joe GARRETT MD Unavailable Unavailable ANTECOL, Joe GARRETT MD Unavailable Unavailable ANTECOL, Joe GARRETT MD Unavailable Unavailable Rubin Lopez MD Unavailable Unavailable Rubin Lopez MD Unavailable Unavailable Rubin Lopez MD Unavailable Unavailable Rubin Lopez MD Unavailable Unavailable Rubin Lopez MD Unavailable Unavailable Rubin Lopez MD Unavailable Unavailable Rubin Lopez MD Unavailable Unavailable Rubin Lopez MD Unavailable Unavailable Rubin Lopez MD Unavailable Unavailable Rubin Lopez MD Unavailable Unavailable Rubin Lopez MD Unavailable Unavailable Rubin Lopez MD Unavailable Unavailable Rubin Lopez MD Unavailable Unavailable Rubin Lopez MD Unavailable Unavailable Rubin Lopez MD Unavailable Unavailable Rubin Lopez MD Unavailable Unavailable Rubin Lopez MD Unavailable Unavailable Rubin Lopez MD Unavailable Unavailable Rubin Lopez MD Unavailable Unavailable Rubin Lopez MD Unavailable Unavailable Rubin Lopez MD Unavailable Unavailable Rubin Lopez MD Unavailable Unavailable Rubin Lopez MD Unavailable Unavailable Rubin Lopez MD Unavailable Unavailable Rubin Lopez MD Unavailable Unavailable Rubin Lopez MD Unavailable Unavailable Rubin Lopez MD Unavailable Unavailable Rubin Lopez MD Unavailable Unavailable Rubin Lopez MD Unavailable Unavailable Rubin Lopez MD Unavailable Unavailable Rubin Lopez MD Unavailable Unavailable Rubin Lopez MD Unavailable Unavailable Rubin Lopez MD Unavailable Unavailable Rubin Lopez MD Unavailable Unavailable Rubin Lopez MD Unavailable Unavailable Rubin Lopez MD Unavailable Unavailable Wnalfredo VILLATORO, Rubin Mcdonald Unavailable Unavailable Wnalfredo VILLATORO, C Harry Unavailable Unavailable Jessica VILLATORO, C Harry Unavailable Unavailable Jessica VILLATORO, C Harry Unavailable Unavailable Wnalfredo VILLATORO, Rubin Irizarryel Unavailable Unavailable Jessica VILLATORO, C Harry Unavailable Unavailable Jessica VILLATORO, Rubin Mcdonald Unavailable Unavailable Jessica VILLATORO, C Harry Unavailable Unavailable Jessica VILLATORO, Rubin Mcdonald Unavailable Unavailable Jessica VILLATORO, C Harry Unavailable Unavailable Jessica VILLATORO, C Harry Unavailable Unavailable Jessica VILLATORO, C Harry Unavailable Unavailable Jessica VILLATORO, C Harry Unavailable Unavailable Jessica VILLATORO, Rubin Mcdonald Unavailable Unavailable Jessica VILLATORO, Rubin Mcdonald Unavailable Unavailable Jessica VILLATORO, Rubin Mcdonald Unavailable Unavailable Jessica VILLATORO, C Harry Unavailable Unavailable Jessica VILLATORO, Rubin Mcdonald Unavailable Unavailable Jessica VILLATORO, Rubin Mcdonald Unavailable Unavailable Jessica VILLATORO, Rubin Mcdonald Unavailable Unavailable Jessica VILLATORO, Rubin Mcdonald Unavailable Unavailable Jessica VILLATORO, Rubin Mcdonald Unavailable Unavailable Jessica VILLATORO, C Harry Unavailable Unavailable Jessica VILLATORO, Rubin Mcdonald Unavailable Unavailable Jessica VILLATORO, Rubin Mcdonald Unavailable Unavailable Jessica VILLATORO, Rubin Mcdonald Unavailable Unavailable Jessica VILLATORO, Rubin Mcdonald Unavailable Unavailable Jessica VILLATORO, Rubin Mcdonald Unavailable Unavailable Jessica VILLATORO, Rubin Mcdonald Unavailable Unavailable Jessica VILLATORO, Rubin Mcdonald Unavailable Unavailable Jessica VILLATORO, Rubin Mcdonald Unavailable Unavailable PJ, Rubin FLORES MD Unavailable Unavailable FISMICHELLE, Rubin FLORES MD Unavailable Unavailable PJ, Rubin FLORES MD Unavailable Unavailable FISMICHELLE, Rubin FLORES MD Unavailable Unavailable FISMICHELLE, Rubin FLORES MD Unavailable Unavailable FISMICHELLE, Rubin FLORES MD Unavailable Unavailable FISMICHELLE, Rubin FLORES MD Unavailable Unavailable FISMICHELLE, Rubin FLORES MD Unavailable Unavailable PJ, Rubin FLORES MD Unavailable Unavailable PJ, Rubin FLORES MD Unavailable Unavailable PJ, Rubin FLORES MD Unavailable Unavailable PJ, Rubin FLORES MD Unavailable Unavailable PJ, Rubin FLORES MD Unavailable Unavailable PJ, Rubin FLORES MD Unavailable Unavailable PJ, Rubin FLORES MD Unavailable Unavailable PJ, Rubin FLORES MD Unavailable Unavailable FISMICHELLE, Rubin FLORES MD Unavailable Unavailable FISMICHELLE, Rubin FLORES MD Unavailable Unavailable FISMICHELLE, Rubin FLORES MD Unavailable Unavailable FISCHI, Rubin FLORES MD Unavailable Unavailable FISCHI, Rubin FLORES MD Unavailable Unavailable FISCHI, Rubin FLORES MD Unavailable Unavailable FISCHI, Rubin FLORES MD Unavailable Unavailable FISCHI, Rubin FLORES MD Unavailable Unavailable FISCHI, Rubin FLORES MD Unavailable Unavailable FISCHI, Rubin FLORES MD Unavailable Unavailable FISCHI, Rubin FLORES MD Unavailable Unavailable FISCHI, Rubin FLORES MD Unavailable Unavailable FISCHI, Rubin FLORES MD Unavailable Unavailable FISCHI, Rubin FLORES MD Unavailable Unavailable FISCHI, Rubin FLORES MD Unavailable Unavailable FISCHI, Rubin FLORES MD Unavailable Unavailable FISCHI, Rubin FLORES MD Unavailable Unavailable FISCHI, Rubin FLORES MD Unavailable Unavailable FISCHI, Rubin FLORES MD Unavailable Unavailable FISCHI, Rubin FLORES MD Unavailable Unavailable FISCHI, Rubin FLORES MD Unavailable Unavailable FISCHI, Rubin FLORES MD Unavailable Unavailable FISCHI, Rubin FLORES MD Unavailable Unavailable FISCHI, Rubin FLORES MD Unavailable Unavailable FISCHI, Rubin FLORES MD Unavailable Unavailable FISCHI, Rubin FLORES MD Unavailable Unavailable FISCHI, Rubin FLORES MD Unavailable Unavailable FISCHI, Rubin FLORES MD Unavailable Unavailable FISCHI, Rubin FLORES MD Unavailable Unavailable FISCHI, Rubin FLORES MD Unavailable Unavailable FISCHI, Rubin FLORES MD Unavailable Unavailable FISCHI, Rubin FLORES MD Unavailable Unavailable FISCHI, Rubin FLORSE MD Unavailable Unavailable FISCHI, Rubin LFORES MD Unavailable Unavailable FISCHI, Rubin FLORES MD Unavailable Unavailable FISCHI, Rubin FLORES MD Unavailable Unavailable FISCHI, Rubin FLORES MD Unavailable Unavailable FISCHI, Rubin FLORES MD Unavailable Unavailable FISCHI, Rubin FLORES MD Unavailable Unavailable FISCHI, Rubin FLORES MD Unavailable Unavailable FISCHI, Rubin FLORES MD Unavailable Unavailable FISCHI, Rubin FLORES MD Unavailable Unavailable FISCHI, Rubin FLORES MD Unavailable Unavailable FISCHI, Rubin FLORES MD Unavailable Unavailable FISCHI, Rubin FLORES MD Unavailable Unavailable FISCHI, Rubin FLORES MD Unavailable Unavailable FISCHI, Rubin FLORES MD Unavailable Unavailable FISCHI, Rubin FLORES MD Unavailable Unavailable FISCHI, Rubin FLORES MD Unavailable Unavailable FISCHI, Rubin FLORES MD Unavailable Unavailable FISCHI, Rubin FLORES MD Unavailable Unavailable FISCHI, Rubin FLORES MD Unavailable Unavailable FISCHI, Rubin FLORES MD Unavailable Unavailable FISCHI, Rubin FLORES MD Unavailable Unavailable FISCHI, Rubin FLORES MD Unavailable Unavailable FISCHI, Rubin FLORES MD Unavailable Unavailable FISCHI, Rubin FLORES MD Unavailable Unavailable FISCHI, Rubin FLORES MD Unavailable Unavailable FISCHI, Rubin FLORES MD Unavailable Unavailable FISCHI, Rubin FLORES MD Unavailable Unavailable FISCHI, Rubin FLORES MD Unavailable Unavailable FISCHI, Rubin FLORES MD Unavailable Unavailable KLARISSA, Dede GARRETT MD Unavailable Unavailable KLARISSA, Dede GARRETT MD Unavailable Unavailable KLARISSA, Dede GARRETT MD Unavailable Unavailable KLARISSA, Dede GARRETT MD Unavailable Unavailable KLARISSA, T TAMI MD Unavailable Unavailable Dede HERNÁNDEZ MD Unavailable Unavailable Dede HERNÁNDEZ MD Unavailable Unavailable Dede HERNÁNDEZ MD Unavailable Unavailable Dede HERNÁNDEZ MD Unavailable Unavailable Dede HERNÁNDEZ MD Unavailable Unavailable Dede HERNÁNDEZ MD Unavailable Unavailable Dede HERNÁNDEZ MD Unavailable Unavailable Dede HERNÁNDEZ MD Unavailable Unavailable Dede HERNÁNDEZ MD Unavailable Unavailable Dede HERNÁNDEZ MD Unavailable Unavailable Dede HERNÁNDEZ MD Unavailable Unavailable Dede HERNÁNDEZ MD Unavailable Unavailable Dede HERNÁNDEZ MD Unavailable Unavailable Dede HERNÁNDEZ MD Unavailable Unavailable Dede HERNÁNDEZ MD Unavailable Unavailable Dede HERNÁNDEZ MD Unavailable Unavailable Dede HERNÁNDEZ MD Unavailable Unavailable Dede HERNÁNDEZ MD Unavailable Unavailable Dede HERNÁNDEZ MD Unavailable Unavailable Dede HERNÁNDEZ MD Unavailable Unavailable Dede HERNÁNDEZ MD Unavailable Unavailable Dede HERNÁNDEZ MD Unavailable Unavailable Dede HERNÁNDEZ MD Unavailable Unavailable Dede HERNÁNDEZ MD Unavailable Unavailable Dede HERNÁNDEZ MD Unavailable Unavailable Dede HERNÁNDEZ MD Unavailable Unavailable Dede HERNÁNDEZ MD Unavailable Unavailable Dede HERNÁNDEZ MD Unavailable Unavailable Dede HERNÁNDEZ MD Unavailable Unavailable Dede HERNÁNDEZ MD Unavailable Unavailable Dede HERNÁNDEZ MD Unavailable Unavailable Dede HERNÁNDEZ MD Unavailable Unavailable Dede HERNÁNDEZ MD Unavailable Unavailable Dede HERNÁNDEZ MD Unavailable Unavailable Dede HERNÁNDEZ MD Unavailable Unavailable Dede HERNÁNDEZ MD Unavailable Unavailable Dede HERNÁNDEZ MD Unavailable Unavailable Dede HERNÁNDEZ MD Unavailable Unavailable Dede HERNÁNDEZ MD Unavailable Unavailable Dede HERNÁNDEZ MD Unavailable Unavailable Dede HERNÁNDEZ MD Unavailable Unavailable Dede HERNÁNDEZ MD Unavailable Unavailable Dede HERNÁNDEZ MD Unavailable Unavailable Dede HERNÁNDEZ MD Unavailable Unavailable Dede HERNÁNDEZ MD Unavailable Unavailable Dede HERNÁNDEZ MD Unavailable Unavailable Dede HERNÁNDEZ MD Unavailable Unavailable Dede HERNÁNDEZ MD Unavailable Unavailable Dede HERNÁNDEZ MD Unavailable Unavailable Dede HERNÁNDEZ MD Unavailable Unavailable Dede HERNÁNDEZ MD Unavailable Unavailable Dede HERNÁNDEZ MD Unavailable Unavailable Dede HERNÁNDEZ MD Unavailable Unavailable Dede HERNÁNDEZ MD Unavailable Unavailable Dede HERNÁNDEZ MD Unavailable Unavailable eDde HERNÁNDEZ MD Unavailable Unavailable Dede HERNÁNDEZ MD Unavailable Unavailable Dede HERNÁNDEZ MD Unavailable Unavailable Dede HERNÁNDEZ MD Unavailable Unavailable Dede HERNÁNDEZ MD Unavailable Unavailable Dede HERNÁNDEZ MD Unavailable Unavailable Dede HERNÁNDEZ MD Unavailable Unavailable Dede HERNÁNDEZ MD Unavailable Unavailable Dede HERNÁNDEZ MD Unavailable Unavailable Dede HERNÁNDEZ MD Unavailable Unavailable Dede HERNÁNDEZ MD Unavailable Unavailable Dede HERNÁNDEZ MD Unavailable Unavailable Dede HERNÁNDEZ MD Unavailable Unavailable Dede HERNÁNDEZ MD Unavailable Unavailable Dede HERNÁNDEZ MD Unavailable Unavailable Dede HERNÁNDEZ MD Unavailable Unavailable Dede HERNÁNDEZ MD Unavailable Unavailable Dede HERNÁNDEZ MD Unavailable Unavailable Dede HERNÁNDEZ MD Unavailable Unavailable Dede HERNÁNDEZ MD Unavailable Unavailable Dede HERNÁNDEZ MD Unavailable Unavailable Dede HERNÁNDEZ MD Unavailable Unavailable Dede HERNÁNDEZ MD Unavailable Unavailable Joe BAUER MD Unavailable Unavailable Joe BAUER MD Unavailable Unavailable Joe BAUER MD Unavailable Unavailable Joe BAUER MD Unavailable Unavailable Joe BAUER MD Unavailable Unavailable Joe BAUER MD Unavailable Unavailable Joe BAUER MD Unavailable Unavailable Joe BAUER MD Unavailable Unavailable Joe BAUER MD Unavailable Unavailable Joe BAUER MD Unavailable Unavailable Joe BAUER MD Unavailable Unavailable Joe BAUER MD Unavailable Unavailable Joe BAUER MD Unavailable Unavailable Joe BAUER MD Unavailable Unavailable Joe BAUER MD Unavailable Unavailable Joe BAUER MD Unavailable Unavailable Joe BAUER MD Unavailable Unavailable Joe BAUER MD Unavailable Unavailable Joe BAUER MD Unavailable Unavailable Joe BAUER MD Unavailable Unavailable Joe BAUER MD Unavailable Unavailable Joe BAUER MD Unavailable Unavailable Joe BAUER MD Unavailable Unavailable Joe BAUER MD Unavailable Unavailable Joe BAUER MD Unavailable Unavailable Joe BAUER MD Unavailable Unavailable Joe BAUER MD Unavailable Unavailable Joe BAUER MD Unavailable Unavailable Joe BAUER MD Unavailable Unavailable Joe BAUER MD Unavailable Unavailable Joe BAUER MD Unavailable Unavailable Joe BAUER MD Unavailable Unavailable Joe BAUER MD Unavailable Unavailable Joe BAUER MD Unavailable Unavailable Joe BAUER MD Unavailable Unavailable Joe BAUER MD Unavailable Unavailable Joe BAUER MD Unavailable Unavailable Joe BAUER MD Unavailable Unavailable Joe BAUER MD Unavailable Unavailable Joe BAUER MD Unavailable Unavailable Joe BAUER MD Unavailable Unavailable Joe BAUER MD Unavailable Unavailable Joe BAUER MD Unavailable Unavailable Joe BAUER MD Unavailable Unavailable Joe BAUER MD Unavailable Unavailable Joe BAUER MD Unavailable Unavailable JUANCARLOSJoe MD Unavailable Unavailable JUANCARLOSJoe MD Unavailable Unavailable JUANCARLOSJoe MD Unavailable Unavailable Joe BAUER MD Unavailable Unavailable Joe BAUER MD Unavailable Unavailable Joe BAUER MD Unavailable Unavailable Joe BAUER MD Unavailable Unavailable JUANCARLOSJoe MD Unavailable Unavailable JUANCARLOSJoe MD Unavailable Unavailable JUANCARLOS, Joe TRAN MD Unavailable Unavailable JUANCARLOSJoe MD Unavailable Unavailable JUANCARLOSJoe MD Unavailable Unavailable JUACNARLOSJoe MD Unavailable Unavailable JUANCARLOSJoe MD Unavailable Unavailable Joe BAUER MD Unavailable Unavailable Joe BAUER MD Unavailable Unavailable JUANCARLOS H MARC VILLATORO Unavailable Unavailable JUANCARLOSJoe MD Unavailable Unavailable Joe BAUER MD Unavailable Unavailable Joe BAUER MD Unavailable Unavailable Joe BAUER MD Unavailable Unavailable Joe BAUER MD Unavailable Unavailable Joe BAUER MD Unavailable Unavailable Joe BAUER MD Unavailable Unavailable Joe BAUER MD Unavailable Unavailable Joe BAUER MD Unavailable Unavailable Joe BAUER MD Unavailable Unavailable Joe BAUER MD Unavailable Unavailable Joe BAUER MD Unavailable Unavailable Joe BAUER MD Unavailable Unavailable REINDL, TAMI VILLATORO Unavailable Unavailable REINDL, TAMI VILLATORO Unavailable Unavailable REINDL, TAMI VILLATORO Unavailable Unavailable REINDL, TAMI VILLATORO Unavailable Unavailable REINDL, TAMI VILLATORO Unavailable Unavailable REINDL, TAMI VILLATORO Unavailable Unavailable REINDL, TAMI VILLATORO Unavailable Unavailable REINDL, TAMI VILLATORO Unavailable Unavailable REINDL, TAMI VILLATORO Unavailable Unavailable LAURIEDL, TAMI VILLATORO Unavailable Unavailable LAURIEDL, TAMI VILLATORO Unavailable Unavailable LAURIEDL, TAMI VILLATORO Unavailable Unavailable REINDL, TAMI VILLATORO Unavailable Unavailable REINDL, TAMI VILLATORO Unavailable Unavailable REINDL, TAMI VILLATORO Unavailable Unavailable REINDL, TAMI VILLATORO Unavailable Unavailable REINDL, TAMI VILLATORO Unavailable Unavailable REINDL, TAMI VILLATORO Unavailable Unavailable REINDL, TAIM VILLATORO Unavailable Unavailable REINDL, TAMI VILLATORO Unavailable Unavailable REINDL, TAMI VILLATORO Unavailable Unavailable LAURIEDL, TAMI VILLATORO Unavailable Unavailable REINDL, TAMI VILLATORO Unavailable Unavailable REINDL, TAMI VILLATORO Unavailable Unavailable REINDL, TAMI VILLATORO Unavailable Unavailable LAURIEDL, TAMI VILLATORO Unavailable Unavailable REINDL, TAMI VILLATORO Unavailable Unavailable REINDL, TAMI VILLATORO Unavailable Unavailable REINDL, TAMI VILLATORO Unavailable Unavailable REINDL, TAMI VILLATORO Unavailable Unavailable REINDL, TAMI VILLATORO Unavailable Unavailable REINDL, TAMI VILLATORO Unavailable Unavailable REINDL, TAMI VILLATORO Unavailable Unavailable REINDL, TAMI VILLATORO Unavailable Unavailable REINDL, TAMI VILLATORO Unavailable Unavailable REINDL, TAMI VILLATORO Unavailable Unavailable REINDL, TAMI VILLATORO Unavailable Unavailable REINELSI, TAMI VILLATORO Unavailable Unavailable REINELSI, TAMI VILLATORO Unavailable Unavailable REINELSI, TAMI VILLATORO Unavailable Unavailable REINELSI, TAMI VILLATORO Unavailable Unavailable REINDL, TAMI VILLATORO Unavailable Unavailable REINELSI, TAMI VILLAOTRO Unavailable Unavailable REINELSI, TAMI VILLATORO Unavailable Unavailable Ali, Delvis VILLATORO Unavailable Unavailable Ali, Delvis VILLATORO Unavailable Unavailable Ali, Delvis VILLATORO Unavailable Unavailable AliDelvis MD Unavailable Unavailable Ali, Delvis VILLATORO Unavailable Unavailable Ali, Delvis VILLATORO Unavailable Unavailable Ali, Delvis VILLATORO Unavailable Unavailable Ali, Delvis VILLATORO Unavailable Unavailable Ali, Delvis VILLATORO Unavailable Unavailable Ali, Delvis VILLATORO Unavailable Unavailable Ali, Delvis Unavailable Unavailable Ali, Delvis VILLATORO Unavailable Unavailable Ali, Delvis VILLATORO Unavailable Unavailable Ali, Delvis Unavailable Unavailable Ali, Delvis VILLATORO Unavailable Unavailable Ali, Delvis VILLATORO Unavailable Unavailable Ali, Delvis MD Unavailable Unavailable Ali, Delvis VILLATORO Unavailable Unavailable Ali, Delvis VILLATORO Unavailable Unavailable Ali, Delvis VILLATORO Unavailable Unavailable Ali, Delvis VILLATORO Unavailable Unavailable Ali, Delvis VILLATORO Unavailable Unavailable Ali, Delvis VILLATORO Unavailable Unavailable Ali, Delvis VILLATORO Unavailable Unavailable Ali, Delvis VILLATORO Unavailable Unavailable Ali, Delvis VILLATORO Unavailable Unavailable Ali, Delvis VILLATORO Unavailable Unavailable Ali, Delvis VILLATORO Unavailable Unavailable Ali, Delvis VILLATORO Unavailable Unavailable Ali, Delvis VILLATORO Unavailable Unavailable Ali, Delvis VILLATORO Unavailable Unavailable Ali, Delvis VILLATORO Unavailable Unavailable Ali, Delvis VILLATORO Unavailable Unavailable Ali, Delvis VILLATORO Unavailable Unavailable Ali, Delvis VILLATORO Unavailable Unavailable Ali, Delvis VILLATORO Unavailable Unavailable Ali, Delvis VILLATORO Unavailable Unavailable Ali, Delvis VILLATORO Unavailable Unavailable AliDelvis MD Unavailable Unavailable AliDelvis MD Unavailable Unavailable AliDelvis MD Unavailable Unavailable Delvis Acosta MD Unavailable Unavailable Delvis Acosta MD Unavailable Unavailable AliDelvis MD Unavailable Unavailable AliDelvis MD Unavailable Unavailable AliDelvis MD Unavailable Unavailable AliDelvis MD Unavailable Unavailable Delvis Acosta MD Unavailable Unavailable Delvis Acosta MD Unavailable Unavailable Dede HERNÁNDEZ MD Unavailable Unavailable Dede HERNÁNDEZ MD Unavailable Unavailable Dede HERNÁNDEZ MD Unavailable Unavailable Dede HERNÁNDEZ MD Unavailable Unavailable Dede HERNÁNDEZ MD Unavailable Unavailable Dede HERNÁNDEZ MD Unavailable Unavailable Dede HERNÁNDEZ MD Unavailable Unavailable Dede HERNÁNDEZ MD Unavailable Unavailable Dede HERNÁNDEZ MD Unavailable Unavailable Dede HERNÁNDEZ MD Unavailable Unavailable Dede HERNÁNDEZ MD Unavailable Unavailable Dede HERNÁNDEZ MD Unavailable Unavailable Dede HERNÁNDEZ MD Unavailable Unavailable Dede HERNÁNDEZ MD Unavailable Unavailable Dede HERNÁNDEZ MD Unavailable Unavailable Dede HERNÁNDEZ MD Unavailable Unavailable Dede HERNÁNDEZ MD Unavailable Unavailable Dede HERNÁNDEZ MD Unavailable Unavailable Dede HERNÁNDEZ MD Unavailable Unavailable Dede HERNÁNDZE MD Unavailable Unavailable Dede HERNÁNDEZ MD Unavailable Unavailable Dede HERNÁNDEZ MD Unavailable Unavailable Dede HERNÁNDEZ MD Unavailable Unavailable Dede HERNÁNDEZ MD Unavailable Unavailable Dede HERNÁNDEZ MD Unavailable Unavailable Dede HERNÁNDEZ MD Unavailable Unavailable Dede HERNÁNDEZ MD Unavailable Unavailable Dede HERÁNNDEZ MD Unavailable Unavailable Dede HERNÁNDEZ MD Unavailable Unavailable Dede HERNÁNDEZ MD Unavailable Unavailable Dede HERNÁNDEZ MD Unavailable Unavailable Dede HERNÁNDEZ MD Unavailable Unavailable Dede HERNÁNDEZ MD Unavailable Unavailable Dede HERNÁNDEZ MD Unavailable Unavailable Dede HERNÁNDEZ MD Unavailable Unavailable Dede HERNÁNDEZ MD Unavailable Unavailable Dede HERNÁNDEZ MD Unavailable Unavailable Dede HERNÁNDEZ MD Unavailable Unavailable Dede HERNÁNDEZ MD Unavailable Unavailable Dede HERNÁNDEZ MD Unavailable Unavailable Dede HERNÁNDEZ MD Unavailable Unavailable Dede HERNÁNDEZ MD Unavailable Unavailable Dede HERNÁNDEZ MD Unavailable Unavailable Dede HERNÁNDEZ MD Unavailable Unavailable Dede HERNÁNDEZ MD Unavailable Unavailable Dede HERNÁNDEZ MD Unavailable Unavailable Dede HERNÁNDEZ MD Unavailable Unavailable Dede HERNÁNDEZ MD Unavailable Unavailable Dede HERNÁNDEZ MD Unavailable Unavailable Dede HERNÁNDEZ MD Unavailable Unavailable Dede HERNÁNDEZ MD Unavailable Unavailable Dede HERNÁNDEZ MD Unavailable Unavailable Dede HERNÁNDEZ MD Unavailable Unavailable Dede HERNÁNDEZ MD Unavailable Unavailable Dede HERNÁNDEZ MD Unavailable Unavailable Dede HERNÁNDEZ MD Unavailable Unavailable Dede HERNÁNDEZ MD Unavailable Unavailable Dede HERNÁNDEZ MD Unavailable Unavailable Dede HERNÁNDEZ MD Unavailable Unavailable Dede HERNÁNDEZ MD Unavailable Unavailable Dede HERNÁNDEZ MD Unavailable Unavailable Dede HERNÁNDEZ MD Unavailable Unavailable Dede HERNÁNDEZ MD Unavailable Unavailable Dede HERNÁNDEZ MD Unavailable Unavailable Dede HERNÁNDEZ MD Unavailable Unavailable Dede HERNÁNDEZ MD Unavailable Unavailable Dede HERNÁNDEZ MD Unavailable Unavailable KLARISSA, Dede GARRETT MD Unavailable Unavailable KLARISSA, Dede GARRETT MD Unavailable Unavailable KLARISSA, Dede GARRETT MD Unavailable Unavailable KLARISSA, Dede GARRETT MD Unavailable Unavailable KLARISSA, Dede GARRETT MD Unavailable Unavailable KLARISSA, Dede GARRETT MD Unavailable Unavailable KLARISSA, Dede GARRETT MD Unavailable Unavailable KLARISSA, Dede GARRETT MD Unavailable Unavailable KLARISSA, Dede GARRETT MD Unavailable Unavailable KLARISSA, Dede GARRETT MD Unavailable Unavailable KLARISSA, Dede GARRETT MD Unavailable Unavailable KLARISSA, Dede GARRETT MD Unavailable Unavailable KLARISSA, Dede GARRETT MD Unavailable Unavailable KLARISSA, Dede GARRETT MD Unavailable Unavailable KLARISSA, Dede GARRETT MD Unavailable Unavailable KLARISSA, Dede GARRETT MD Unavailable Unavailable Natali Knott RELIEF MAP MODELER RELIEF MAP MODELER Unavailable Unavailable CHAUHAN, ISAIAH MARCIE RPA-C Unavailable Unavailable CHAUHAN, ISAIAH MARCIE RPA-C Unavailable Unavailable CHAUHAN, ISAIAH MARCIE RPA-C Unavailable Unavailable CHAUHAN, ISAIAH MARCIE RPA-C Unavailable Unavailable CHAUHAN, ISAIAH MARCIE RPA-C Unavailable Unavailable CHAUHAN, ISAIAH MARCIE RPA-C Unavailable Unavailable CHAUHAN, ISAIAH MARCIE RPA-C Unavailable Unavailable CHAUHAN, ISAIAH MARCIE RPA-C Unavailable Unavailable CHAUHAN, ISAIAH MARCIE RPA-C Unavailable Unavailable CHAUHAN, ISAIAH MARCIE RPA-C Unavailable Unavailable CHAUHAN, ISAIAH MARCIE RPA-C Unavailable Unavailable CHAUHAN, ISAIAH MARCIE RPA-C Unavailable Unavailable CHAUHAN, ISAIAH MARCIE RPA-C Unavailable Unavailable CHAUHAN, ISAIAH MARCIE RPA-C Unavailable Unavailable CHAUHAN, ISAIAH MARCIE RPA-C Unavailable Unavailable CHAUHAN, ISAIAH MARCIE RPA-C Unavailable Unavailable CHAUHAN, ISAIAH MARCIE RPA-C Unavailable Unavailable CHAUHAN, ISAIAH MARCIE RPA-C Unavailable Unavailable CHAUHAN, ISAIAH MARCIE RPA-C Unavailable Unavailable CHAUHAN, ISAIAH MARCIE RPA-C Unavailable Unavailable CHAUHAN, ISAIAH MARCIE RPA-C Unavailable Unavailable CHAUHAN, ISAIAH MARCIE RPA-C Unavailable Unavailable CHAUHAN, ISAIAH MARCIE RPA-C Unavailable Unavailable CHAUHAN, ISAIAH MARCIE RPA-C Unavailable Unavailable CHAUHAN, SIAIAH MARCIE RPA-C Unavailable Unavailable CHAUHAN, ISAIAH MARCIE RPA-C Unavailable Unavailable CHAUHAN, ISAIAH MARCIE RPA-C Unavailable Unavailable CHAUHAN, ISAIAH MARCIE RPA-C Unavailable Unavailable CHAUHAN, ISAIAH MARCIE RPA-C Unavailable Unavailable CHAUHAN, ISAIAH MARCIE RPA-C Unavailable Unavailable CHAUHAN, ISAIAH MARCIE RPA-C Unavailable Unavailable CHAUHAN, ISAIAH MARCIE RPA-C Unavailable Unavailable CHAUHAN, ISAIAH MARCIE RPA-C Unavailable Unavailable CHAUHAN, ISAIAH MARCIE RPA-C Unavailable Unavailable CHAUHAN, ISAIAH MARCIE RPA-C Unavailable Unavailable CHAUHAN, ISAIAH MARCIE RPA-C Unavailable Unavailable CHAUHAN, ISAIAH MARCIE RPA-C Unavailable Unavailable CHAUHAN, ISAIAH MARCIE RPA-C Unavailable Unavailable CHAUHAN, ISAIAH MARCIE RPA-C Unavailable Unavailable Rj Ingram MD Unavailable Unavailable Rj Ingram MD Unavailable Unavailable Rj Ingram MD Unavailable Unavailable Rj Ingram MD Unavailable Unavailable Rj Ingram MD Unavailable Unavailable Rj Ingram MD Unavailable Unavailable Rj Ingram MD Unavailable Unavailable Rj Ingram MD Unavailable Unavailable Rj Ingram MD Unavailable Unavailable Rj Ingram MD Unavailable Unavailable Rj Ingram MD Unavailable Unavailable Rj Ingram MD Unavailable Unavailable Rj Ingram MD Unavailable Unavailable Rj Ingram MD Unavailable Unavailable Rj Ingram MD Unavailable Unavailable Rj Ingram MD Unavailable Unavailable Rj Ingram MD Unavailable Unavailable Rj Ingram MD Unavailable Unavailable Rj Ingram MD Unavailable Unavailable Rj Ingram MD Unavailable Unavailable Rj Ingram MD Unavailable Unavailable Rj Ingram MD Unavailable Unavailable Rj Ingram MD Unavailable Unavailable Rj Ingram MD Unavailable Unavailable Rj Ingram MD Unavailable Unavailable Rj Ingram MD Unavailable Unavailable Rj Ingram MD Unavailable Unavailable Rj Ingram MD Unavailable Unavailable Rj Ingram MD Unavailable Unavailable Rj Ingram MD Unavailable Unavailable Rj Ingram MD Unavailable Unavailable Rj Ingram MD Unavailable Unavailable Rj Ingram MD Unavailable Unavailable Rj Ingram MD Unavailable Unavailable Rj Ingram MD Unavailable Unavailable Rj Ingram MD Unavailable Unavailable Rj Ingram MD Unavailable Unavailable Rj Ingram MD Unavailable Unavailable Rj Ingram MD Unavailable Unavailable Rj Ingram MD Unavailable Unavailable Rj Ingram MD Unavailable Unavailable Rj Ingram MD Unavailable Unavailable Rj Ingram MD Unavailable Unavailable Rj Ingram MD Unavailable Unavailable Rj Ingram MD Unavailable Unavailable Rj Ingram MD Unavailable Unavailable Rj Ingram MD Unavailable Unavailable Rj Ingram MD Unavailable Unavailable Rj Ingram MD Unavailable Unavailable Rj Ingram MD Unavailable Unavailable Rj Ingram MD Unavailable Unavailable Freedom Knott RELIEF MAP MODELER Unavailable Unavailable Freedom Knott RELIEF MAP MODELER Unavailable Unavailable Nikos, A Natali RELIEF MAP MODELER Unavailable Unavailable Nikos, A Natali RELIEF MAP MODELER Unavailable Unavailable Nikos, A Natali RELIEF MAP MODELER Unavailable Unavailable Nikos, A Natali RELIEF MAP MODELER Unavailable Unavailable Nikos, A Natali RELIEF MAP MODELER Unavailable Unavailable Nikos, A Natali RELIEF MAP MODELER Unavailable Unavailable Nikos, A Natali RELIEF MAP MODELER Unavailable Unavailable Nikos, A Natali RELIEF MAP MODELER Unavailable Unavailable Nikos, A Natali RELIEF MAP MODELER Unavailable Unavailable Nikos, A Natali RELIEF MAP MODELER Unavailable Unavailable Nikos, A Natali RELIEF MAP MODELER Unavailable Unavailable Nikos, A Natali RELIEF MAP MODELER Unavailable Unavailable Nikos, A Natali RELIEF MAP MODELER Unavailable Unavailable Nikos, A Natali RELIEF MAP MODELER Unavailable Unavailable Nikos, A Natali RELIEF MAP MODELER Unavailable Unavailable Nikos, A Natali RELIEF MAP MODELER Unavailable Unavailable Nikos, A Natali RELIEF MAP MODELER Unavailable Unavailable Nikos, A Natali RELIEF MAP MODELER Unavailable Unavailable Nikos, A Natali RELIEF MAP MODELER Unavailable Unavailable Nikos, A Natali RELIEF MAP MODELER Unavailable Unavailable Nikos, A Natali RELIEF MAP MODELER Unavailable Unavailable Nikos, A Natali RELIEF MAP MODELER Unavailable Unavailable Nikos, A Natali RELIEF MAP MODELER Unavailable Unavailable Nikos, A Natali RELIEF MAP MODELER Unavailable Unavailable Nikos, A Natali RELIEF MAP MODELER Unavailable Unavailable Nikos, A Natali RELIEF MAP MODELER Unavailable Unavailable [place], RFROST CHAUHAN PA MARCIE Unavailable Unavailable Re-disclosure Warning The records that you are about to access may contain information from federally-assisted alcohol or drug abuse programs. If such information is present, then the following federally mandated warning applies: This information has been disclosed to you from records protected by federal confidentiality rules (42 CFR part 2). The federal rules prohibit you from making any further disclosure of this information unless further disclosure is expressly permitted by the written consent of the person to whom it pertains or as otherwise permitted by 42 CFR part 2. A general authorization for the release of medical or other information is NOT sufficient for this purpose. The Federal rules restrict any use of the information to criminally investigate or prosecute any alcohol or drug abuse patient.The records that you are about to access may contain highly sensitive health information, the redisclosure of which is protected by Article 27-F of the [facility] Public Health law. If you continue you may have access to information: Regarding HIV / AIDS; Provided by facilities licensed or operated by the [facility] Office of Mental Health; or Provided by the [facility] Office for People With Developmental Disabilities. If such information is present, then the following [facility] mandated warning applies: This information has been disclosed to you from confidential records which are protected by state law. State law prohibits you from making any further disclosure of this information without the specific written consent of the person to whom it pertains, or as otherwise permitted by law. Any unauthorized further disclosure in violation of state law may result in a fine or senior care sentence or both. A general authorization for the release of medical or other information is NOT sufficient authorization for further disc losure. Allergies and Adverse Reactions Type Description Substance Reaction Status Data Source(s ) Propensity to adverse reactions QUINOLONES Quinolones Acti ve [facility] Propensity to adverse reactions MORPHINE AND RELATED Morphine And R elated Active [facility] Propensity to adverse reactions METOPROLOL Metoprolol Acti ve [facility] Propensity to adverse reactions IBUPROFEN Ibuprofen Acti ve [facility] Propensity to adverse reactions ADHESIVE TAPE Adhesive Tape Rash Low Active [facility] Low Quinolone Quinolone Quinolone Unknown Active eCW1 ([facility]) Drug allergy Metoprolol & Diet Manage Prod Metoprolol & Diet Manage Prod Unknown Active eCW1 ([facility]) Motrin Motrin Motrin constipation Active eCW1 ([facility]) Latex Latex Latex Unknown Active eCW1 ([facility]) adhesive tape adhesive tape adhesive tape Unknown Active eCW1 ([facility]) rubber rubber rubber Unknown Active eCW1 ([facility]) Latex Latex Latex Unknown Active eCW1 ([facility]) Drug allergy Metoprolol & Diet Manage Prod Metoprolol & Diet Manage Prod Unknown Active eCW1 ([facility]) Motrin Motrin Motrin constipation Active eCW1 ([facility]) adhesive tape adhesive tape adhesive tape Unknown Active eCW1 ([facility]) Quinolone Quinolone Quinolone Unknown Active eCW1 ([facility]) rubber rubber rubber Unknown Active eCW1 ([facility]) Family History Family Member Name Family Member Gender Family Member Status Date o f Status Description Data Source(s) Unknown Male Problem MEDENT ([facility] Encounters Encounter Providers Location Date Indications Data Source(s ) Unknown [address] [facility] [address] 04/01/2020 12:00:00 AM EST eCW1 ([facility]) Unknown [address] [facility] [place] [address] 03/31/2020 12:00:00 AM EST eCW1 ([facility]) Office Visit, Est Pt., Level 3 PC [address] [place] [address] 03/24/2020 12:00:00 AM EST eCW1 ([facility]) [place] [address] [facility] [address] 03/23/2020 12:00:00 AM EST eCW1 ([facility]) [place] [address] [facility] [place] [address] 02/28/2020 12:00:00 AM EST eCW1 ([facility]) [place] [address] [facility] [address] 02/28/2020 12:00:00 AM EST eCW1 ([facility]) [place] [address] [facility] [address] 02/28/2020 12:00:00 AM EST eCW1 ([facility]) Unknown [address] [facility] [place] [address] 02/28/2020 12:00:00 AM EST eCW1 ([facility]) Office Visit, Est Pt., Level 3 PC [address] [place] [address] 02/27/2020 12:00:00 AM EST eCW1 ([facility]) Unknown [address] [facility] [place] [address] 02/24/2020 12:00:00 AM EST eCW1 ([facility]) Office Visit, Est Pt., Level 4 PC [address] [place] [address] 02/21/2020 12:00:00 AM EST eCW1 ([facility]) [place] [address] [facility] [address] 02/17/2020 12:00:00 AM EST eCW1 ([facility]) [place] [address] [facility] [address] 01/20/2020 12:00:00 AM EST eCW1 ([facility]) Outpatient Attender: Delvis Acosta MD Main office - [place] 01/17/2020 07:30:00 AM EST MEDENT ([facility] SALLIE nazario) [place] [address] [facility] [address] 01/17/2020 12:00:00 AM EST eCW1 ([facility]) [place] [address] [facility] [address] 01/17/2020 12:00:00 AM EST eCW1 ([facility]) [place] [address] [facility] [address] 01/15/2020 12:00:00 AM EST eCW1 ([facility]) [place] [address] [facility] [address] 01/14/2020 12:00:00 AM EST eCW1 ([facility]) [place] [address] [facility] [address] 01/14/2020 12:00:00 AM EST eCW1 ([facility]) [place] [address] [facility] [address] 01/13/2020 12:00:00 AM EST eCW1 ([facility]) Unknown [address] [facility] [place] [address] 01/09/2020 12:00:00 AM EDT eCW1 ([facility]) Unknown [address] [facility] [place] [address] 01/08/2020 12:00:00 AM EDT eCW1 ([facility]) Outpatient [address] [facility] [place] [address] 01/07/2020 12:00:00 AM EDT eCW1 ([facility]) [place] [address] [facility] [address] 12/30/2019 12:00:00 AM EDT eCW1 ([facility]) Unknown [address] [facility] [address] 12/23/2019 12:00:00 AM EDT eCW1 ([facility]) [place] [address] [facility] [address] 12/20/2019 12:00:00 AM EDT eCW1 ([facility]) [place] [address] [facility] [address] 12/20/2019 12:00:00 AM EDT eCW1 ([facility]) [place] [address] [facility] [address] 12/19/2019 12:00:00 AM EDT [facility] [place] [address] [facility] [address] 12/19/2019 12:00:00 AM EDT [facility]CW1 [facility] Outpatient Attender: Wallace Guardado/Ricardo/Russell/Kimberly fitzpatirck 12/12/2019 02:00:00 PM EDT MEDENT ([facility] [place] [address] [facility] [address] 10/31/2019 12:00:00 AM EDT eCW1 ([facility]) [place] [address] [facility] [address] 09/27/2019 12:00:00 AM EDT eCW1 ([facility]) Unknown [address] [facility] [address] 09/23/2019 12:00:00 AM EDT [facility]CW1 [facility] Outpatient Attender: SANDRA OLIVA MDAdmitter: SANDRA GONZALEZ CHI, MD [id number] 08/27/2019 06:06:00 AM EDT - 08/27/2019 11:25:00 AM EDT [facility] Patient discharged. Unknown [address] [facility] [address] 08/26/2019 12:00:00 AM EDT eCW1 ([facility]) Outpatient Referrer: SANDRA OLIVA MD MOB-MOB.PAT 08/24/2019 09:12:5 6 AM EDT [facility] Unknown [address] [place] [address], [place] [address] 08/14/2019 12:00:00 AM EDT eCW1 ([facility]) Outpatient Attender: TAMI HERNANDEZ MD Main Office 08/13/2019 12:15:00 PM EDT MEDENT ([facility]) [address] [address] 08/13/2019 12:00:00 AM EDT eCW1 ([facility]) Outpatient Attender: TAMI Guardado/Ricardo/Russell/Laurie christy 08/09/2019 09:00:00 AM EDT MED[facility] ([facility] [address] [address] 08/09/2019 12:00:00 AM EDT [facility]) [address] [address] 08/07/2019 12:00:00 AM EDT eCW1 ([facility]) [address] [address] 08/07/2019 12:00:00 AM EDT [facility]CW1 ([facility]) Outpatient Attender: Wallace Guardado/Ricardo/Russell/Kimberly fitzpatrick 08/02/2019 09:15:00 AM EDT MED[facility] ([facility]) [address] [address] 08/02/2019 12:00:00 AM EDT eCW1 ([facility]) [address] [address] 08/01/2019 12:00:00 AM EDT eCW1 ([facility] [address] [address] 07/30/2019 12:00:00 AM EDT eCW1 ([facility]) [address] [address] 07/23/2019 12:00:00 AM EDT eCW1 ([facility]) [address] [address] 07/22/2019 12:00:00 AM EDT [facility]CW1 ([facility] [address] [address] 07/22/2019 12:00:00 AM EDT eCW1 ([facility] [address] [address] 07/18/2019 12:00:00 AM EDT eCW1 ([facility] [address] [address] 07/17/2019 12:00:00 AM EDT eCW1 ([facility] [address] [address] 07/16/2019 12:00:00 AM EDT eCW1 ([facility]) Outpatient Attender: Wallace Guardado/Ricardo/Russell/Kimberly fitzpatrick 07/04/2019 01:30:00 PM EDT MEDENT ([facility]) [address] [address] 07/04/2019 12:00:00 AM EDT eCW1 ([facility] [address] [address] 07/02/2019 12:00:00 AM EDT eCW1 ([facility]) [address] [address] 07/01/2019 12:00:00 AM EDT eCW1 ([facility]) [address] [address] 07/01/2019 12:00:00 AM EDT eCW1 ([facility]) [address] [address] 06/26/2019 12:00:00 AM EDT eCW1 ([facility] [address] [address] 06/25/2019 12:00:00 AM EDT [facility]CW1 ([facility]) [address] [address] 06/12/2019 12:00:00 AM EDT eCW1 ([facility]) [address] [address] 06/12/2019 12:00:00 AM EDT eCW1 ([facility]) [facility] 08:[facility]:[address] [facility] Outpatient Attender: MARCIE BELLAMY [facility] 06/11/2019 07:56:[address] [facility]: [facility] 07:55:01 AM ED[place] [address] [address] 06/11/2019 12:00:00 AM EDT eCW1 ([facility]) Outpatient Attender: MARCIE BELLAMY [facility] 06/05/2019 02:24:[address] [facility] Outpatient Referrer: MARC BAUER MD 06/04/2019 11:00:00 AM EDT [facility] Outpatient Attender: MARCIE BELLAMY [facility] 05/31/2019 04:14:[address] [facility] Outpatient Attender: LEDY PABLO MARCIE [facility] 05/12 04:14:[address] [facility]patient [facility]: [facility]/11 11:18:[address] [facility] Outpatient Attender: MARCIE GISSEL ARAGONC [facility] 05/27/2019 03:08:[address] [facility] Outpatient Attender: LEDY JACK [facility] 05/11 03:08:[address] [facility] Outpatient [facility]: [facility]/11 11:19:[address] [facility] Outpatient Attender: MARCIE ARAGONC [facility] 05/24/2019 02:58:[address] [facility] Outpatient Attender: TYESHA ARAMBULA 05/17/2019 01:33:01 P [facility] Outpatient Referrer: MARC BAUER MD 05/14/2019 12:29:00 PM [facility] Outpatient Referrer: MARC BAUER MD 05/10/2019 02:20:00 PM [facility] Outpatient Attender: TYESHA ARAMBULA 05/09/2019 01:51:01 P [facility] Outpatient Attender: TYESHA ARAMBULA 05/07/2019 03:29:00 P [facility] Outpatient Attender: TYESHA ARAMBULA 05/06/2019 08:46:01 A [facility] Outpatient Attender: Natali ARAMBULA 04/24/2019 10:4 3:02 AM [facility] Outpatient Attender: Natali ARAMBULA FP 04/23/2019 11:5 7:01 AM [facility] Outpatient Attender: Natali ARAMBULA FP 04/23/2019 08:1 3:06 AM [facility] Outpatient Attender: Natali ARAMBULA FP 04/22/2019 08:2 0:03 AM [facility] Outpatient Attender: TYESHA ARAMBULA FP 04/22/2019 08:20:02 A M [facility] Outpatient Attender: TYESHA ARAMBULA FP 04/18/2019 02:26:05 P M [facility] Outpatient Attender: TYESHA NGP FP 04/18/2019 12:56:01 P M [facility] Outpatient Attender: Natali NGP FP 04/11/2019 11:4 3:02 AM [facility] Outpatient Attender: TYESHA NGP FP 04/10/2019 08:20:04 A [facility] Outpatient Attender: Natali NGP FP 04/10/2019 08:2 0:01 AM [facility] Outpatient Attender: Natali NGP FP 04/08/2019 10:2 6:02 AM [facility] Outpatient Attender: Natali NGP FP 04/08/2019 10:2 3:00 AM [facility] Outpatient Attender: TYESHA Knott RELIEF MAP MODELER FP 04/05/2019 09:29:24 A [facility] Outpatient Attender: TYESHA Knott RELIEF MAP MODELER FP 04/03/2019 03:29:01 P [facility] Outpatient Attender: TYESHA Knott RELIEF MAP MODELER FP 04/03/2019 03:27:00 P [facility] Outpatient Attender: TYESHA Knott RELIEF MAP MODELER FP 04/03/2019 03:25:09 P [facility] Outpatient Attender: TYESHA NGP FP 04/03/2019 02:54:01 P [facility] Outpatient Attender: Harry Lopez MDReferrer: TAMI STORY MD 04/02/2019 12:15:45 PM [facility] Outpatient Attender: TYESHA NGP FP 04/01/2019 04:39:00 P [facility] Outpatient Attender: TAMI HERNÁNDEZ MD FP 04/01/2019 04:38:00 P [facility] Outpatient Attender: TAMI HERNÁNDEZ MD FP 04/01/2019 04:31:01 P [facility] Outpatient Attender: TAMI HERNÁNDEZ MD FP 04/01/2019 10:52:00 A [facility] Outpatient Attender: TAMI HERNÁNDEZ MD FP 03/26/2019 12:26:01 P [facility] Outpatient Attender: TAMI HERNÁNDEZ MD FP 03/25/2019 12:02:00 P [facility] Recurring Patient Attender: Harry Lopez MDReferrer: TAMI TERRAZAS MD 03/22/2019 01:51:43 PM EST [facility] Outpatient Attender: TAMI Guardado/Ricardo/Russell/Laurie christy 03/22/2019 09:30:00 AM EST [facility] Attender: TAMI HERNÁNDEZ MD 03/21/2019 10:21:01 A [facility] Outpatient Attender: TAMI HERNÁNDEZ MD 03/14/2019 12:45:00 P [facility] Outpatient Attender: TAMI HERNÁNDEZ MD 03/07/2019 08:41:01 A [facility] Outpatient Attender: TAMI HERNÁNDEZ MD 02/26/2019 12:19:59 P [facility] Outpatient Attender: TAMI HERNÁNDEZ MD 02/25/2019 01:55:00 P [facility] Outpatient Attender: TAMI HERNÁNDEZ MD 02/18/2019 08:37:00 A [facility] Outpatient Attender: TAMI HERNÁNDEZ MD 02/14/2019 02:26:01 P [facility] Outpatient Attender: Delvis Acosta MD Main office - [place] 02/13/2019 09:15:00 AM EST MEDENT ([facility]) Medications Medication Brand Name Start Date Product Form Dose Route Admi nistrative Instructions Pharmacy Instructions Status Indications Reaction Description Data Source(s) Doxycycline Monohydrate 100 MG Oral Capsule Doxycycline [place] hydrate 100 MG 03/24/2020 12:00:00 AM EST 1.0 {capsule} active Doxycycline Monohydrate 100 MG eCW1 ([facility]) pregabalin 300 MG Oral Capsule [Lyrica] Lyrica 300 MG Lyrica 300 MG 03/24/2020 12:00:00 AM EST active Lyrica 3 00 MG eCW1 ([facility]) Doxycycline Monohydrate 100 MG Oral Capsule Doxycycline [place] hydrate 100 MG 03/24/2020 12:00:00 AM EST 1.0 {capsule} active Doxycycline Monohydrate 100 MG eCW1 ([facility]) pregabalin 300 MG Oral Capsule [Lyrica] Lyrica 300 MG Lyrica 300 MG 03/24/2020 12:00:00 AM EST active Lyrica 3 00 MG eCW1 ([facility]) Doxycycline Monohydrate 100 MG Oral Capsule Doxycycline [place] hydrate 100 MG 03/24/2020 12:00:00 AM EST 1.0 {capsule} active Doxycycline Monohydrate 100 MG eCW1 ([facility]) pregabalin 300 MG Oral Capsule [Lyrica] Lyrica 300 MG Lyrica 300 MG 03/24/2020 12:00:00 AM EST active Lyrica 3 00 MG eCW1 ([facility]) May Have - UNK 02/27/2020 12:00:00 AM EST active May Have - eCW1 ([facility]) pregabalin 50 MG Oral Capsule [Lyrica] Lyrica 50 MG Lyrica 5 0 MG 02/27/2020 12:00:00 AM EST active Lyrica 5 0 MG eCW1 ([facility]) May Have - UNK 02/27/2020 12:00:00 AM EST active May Have - eCW1 ([facility]) pregabalin 50 MG Oral Capsule [Lyrica] Lyrica 50 MG Lyrica 5 0 MG 02/27/2020 12:00:00 AM EST active Lyrica 5 0 MG eCW1 ([facility]) pregabalin 50 MG Oral Capsule [Lyrica] Lyrica 50 MG Lyrica 5 0 MG 02/27/2020 12:00:00 AM EST active Lyrica 5 0 MG eCW1 ([facility]) May Have - UNK 02/27/2020 12:00:00 AM EST active May Have - eCW1 ([facility]) May Have - UNK 02/27/2020 12:00:00 AM EST active May Have - eCW1 ([facility]) May Have - UNK 02/27/2020 12:00:00 AM EST active May Have - eCW1 ([facility]) May Have - UNK 02/27/2020 12:00:00 AM EST active May Have - eCW1 ([facility]) May Have - UNK 02/27/2020 12:00:00 AM EST active May Have - eCW1 ([facility]) pregabalin 50 MG Oral Capsule [Lyrica] Lyrica 50 MG Lyrica 5 0 MG 02/27/2020 12:00:00 AM EST active Lyrica 5 0 MG eCW1 ([facility]) pregabalin 50 MG Oral Capsule [Lyrica] Lyrica 50 MG Lyrica 5 0 MG 02/27/2020 12:00:00 AM EST active Lyrica 5 0 MG eCW1 ([facility]) May Have - UNK 02/27/2020 12:00:00 AM EST active May Have - eCW1 ([facility]) pregabalin 50 MG Oral Capsule [Lyrica] Lyrica 50 MG Lyrica 5 0 MG 02/27/2020 12:00:00 AM EST active Lyrica 5 0 MG eCW1 ([facility]) pregabalin 50 MG Oral Capsule [Lyrica] Lyrica 50 MG Lyrica 5 0 MG 02/27/2020 12:00:00 AM EST active Lyrica 5 0 MG eCW1 ([facility]) May Have - UNK 02/27/2020 12:00:00 AM EST active May Have - eCW1 ([facility]) May Have - UNK 02/27/2020 12:00:00 AM EST active May Have - eCW1 ([facility]) 60 ACTUAT Fluticasone propionate 0.1 MG/ ACTUAT / salmeterol 0.05 MG/ACTUAT Dry Powder Inhaler [Advair] Advair Diskus 100-50 MCG/DOSE Advair Diskus 100-50 MCG/DOSE 02/21/2020 12:00:00 AM EST 1.0 {puff} activ e Advair Diskus 100-50 MCG/DOSE eCW1 ([facility]) 60 ACTUAT Fluticasone propionate 0.1 MG/ ACTUAT / salmeterol 0.05 MG/ACTUAT Dry Powder Inhaler [Advair] Advair Diskus 100-50 MCG/DOSE Advair Diskus 100-50 MCG/DOSE 02/21/2020 12:00:00 AM EST 1.0 {puff} activ e Advair Diskus 100-50 MCG/DOSE eCW1 ([facility]) 60 ACTUAT Fluticasone propionate 0.1 MG/ ACTUAT / salmeterol 0.05 MG/ACTUAT Dry Powder Inhaler [Advair] Advair Diskus 100-50 MCG/DOSE Advair Diskus 100-50 MCG/DOSE 02/21/2020 12:00:00 AM EST 1.0 {puff} activ e Advair Diskus 100-50 MCG/DOSE eCW1 ([facility]) 60 ACTUAT Fluticasone propionate 0.1 MG/ ACTUAT / salmeterol 0.05 MG/ACTUAT Dry Powder Inhaler [Advair] Advair Diskus 100-50 MCG/DOSE Advair Diskus 100-50 MCG/DOSE 02/21/2020 12:00:00 AM EST 1.0 {puff} activ e Advair Diskus 100-50 MCG/DOSE eCW1 ([facility]) 60 ACTUAT Fluticasone propionate 0.1 MG/ ACTUAT / salmeterol 0.05 MG/ACTUAT Dry Powder Inhaler [Advair] Advair Diskus 100-50 MCG/DOSE Advair Diskus 100-50 MCG/DOSE 02/21/2020 12:00:00 AM EST 1.0 {puff} activ e Advair Diskus 100-50 MCG/DOSE eCW1 ([facility]) 60 ACTUAT Fluticasone propionate 0.1 MG/ ACTUAT / salmeterol 0.05 MG/ACTUAT Dry Powder Inhaler [Advair] Advair Diskus 100-50 MCG/DOSE Advair Diskus 100-50 MCG/DOSE 02/21/2020 12:00:00 AM EST 1.0 {puff} activ e Advair Diskus 100-50 MCG/DOSE eCW1 ([facility]) 60 ACTUAT Fluticasone propionate 0.1 MG/ ACTUAT / salmeterol 0.05 MG/ACTUAT Dry Powder Inhaler [Advair] Advair Diskus 100-50 MCG/DOSE Advair Diskus 100-50 MCG/DOSE 02/21/2020 12:00:00 AM EST 1.0 {puff} activ e Advair Diskus 100-50 MCG/DOSE eCW1 ([facility]) 60 ACTUAT Fluticasone propionate 0.1 MG/ ACTUAT / salmeterol 0.05 MG/ACTUAT Dry Powder Inhaler [Advair] Advair Diskus 100-50 MCG/DOSE Advair Diskus 100-50 MCG/DOSE 02/21/2020 12:00:00 AM EST 1.0 {puff} activ e Advair Diskus 100-50 MCG/DOSE eCW1 ([facility]) 60 ACTUAT Fluticasone propionate 0.1 MG/ ACTUAT / salmeterol 0.05 MG/ACTUAT Dry Powder Inhaler [Advair] Advair Diskus 100-50 MCG/DOSE Advair Diskus 100-50 MCG/DOSE 02/21/2020 12:00:00 AM EST 1.0 {puff} activ e Advair Diskus 100-50 MCG/DOSE eCW1 ([facility]) 60 ACTUAT Fluticasone propionate 0.1 MG/ ACTUAT / salmeterol 0.05 MG/ACTUAT Dry Powder Inhaler [Advair] Advair Diskus 100-50 MCG/DOSE Advair Diskus 100-50 MCG/DOSE 02/21/2020 12:00:00 AM EST 1.0 {puff} activ e Advair Diskus 100-50 MCG/DOSE eCW1 ([facility]) 60 ACTUAT Fluticasone propionate 0.1 MG/ ACTUAT / salmeterol 0.05 MG/ACTUAT Dry Powder Inhaler [Advair] Advair Diskus 100-50 MCG/DOSE Advair Diskus 100-50 MCG/DOSE 02/21/2020 12:00:00 AM EST 1.0 {puff} activ e Advair Diskus 100-50 MCG/DOSE eCW1 ([facility]) Insulin, Aspart, Human 100 UNT/ML Inject able Solution [NovoLog] NovoLog 100 UNIT/ML NovoLog 100 UNIT/ML 02/04/2020 12:00:00 AM EST active NovoLog 100 UNIT/ML eCW1 ([facility]) Insulin, Aspart, Human 100 UNT/ML Inject able Solution [NovoLog] NovoLog 100 UNIT/ML NovoLog 100 UNIT/ML 02/04/2020 12:00:00 AM EST active NovoLog 100 UNIT/ML eCW1 ([facility]) Insulin, Aspart, Human 100 UNT/ML Inject able Solution [NovoLog] NovoLog 100 UNIT/ML NovoLog 100 UNIT/ML 02/04/2020 12:00:00 AM EST active NovoLog 100 UNIT/ML eCW1 ([facility]) Insulin, Aspart, Human 100 UNT/ML Inject able Solution [NovoLog] NovoLog 100 UNIT/ML NovoLog 100 UNIT/ML 02/04/2020 12:00:00 AM EST active NovoLog 100 UNIT/ML eCW1 ([facility]) Insulin, Aspart, Human 100 UNT/ML Inject able Solution [NovoLog] NovoLog 100 UNIT/ML NovoLog 100 UNIT/ML 02/04/2020 12:00:00 AM EST active NovoLog 100 UNIT/ML eCW1 ([facility]) Insulin, Aspart, Human 100 UNT/ML Inject able Solution [NovoLog] NovoLog 100 UNIT/ML NovoLog 100 UNIT/ML 02/04/2020 12:00:00 AM EST active NovoLog 100 UNIT/ML eCW1 ([facility]) Insulin, Aspart, Human 100 UNT/ML Inject able Solution [NovoLog] NovoLog 100 UNIT/ML NovoLog 100 UNIT/ML 02/04/2020 12:00:00 AM EST active NovoLog 100 UNIT/ML eCW1 ([facility]) Insulin, Aspart, Human 100 UNT/ML Inject able Solution [NovoLog] NovoLog 100 UNIT/ML NovoLog 100 UNIT/ML 02/04/2020 12:00:00 AM EST active NovoLog 100 UNIT/ML eCW1 ([facility]) Insulin, Aspart, Human 100 UNT/ML Inject able Solution [NovoLog] NovoLog 100 UNIT/ML NovoLog 100 UNIT/ML 02/04/2020 12:00:00 AM EST active NovoLog 100 UNIT/ML eCW1 ([facility]) Insulin, Aspart, Human 100 UNT/ML Inject able Solution [NovoLog] NovoLog 100 UNIT/ML NovoLog 100 UNIT/ML 02/04/2020 12:00:00 AM EST active NovoLog 100 UNIT/ML eCW1 ([facility]) Insulin, Aspart, Human 100 UNT/ML Inject able Solution [NovoLog] NovoLog 100 UNIT/ML NovoLog 100 UNIT/ML 02/04/2020 12:00:00 AM EST active NovoLog 100 UNIT/ML eCW1 ([facility]) Insulin, Aspart, Human 100 UNT/ML Inject able Solution [NovoLog] NovoLog 100 UNIT/ML NovoLog 100 UNIT/ML 02/04/2020 12:00:00 AM EST active NovoLog 100 UNIT/ML eCW1 ([facility]) pregabalin 200 MG Oral Capsule Pregabalin 01/17/2020 12:00:00 AM EST ORAL active [facility] ([facility], ) duloxetine 60 MG Delayed Release Oral Capsule Duloxetine HCL 01/17/2020 12:00:00 AM EST ORAL active [facility] ([facility], ) pregabalin 200 MG Oral Capsule [Lyrica] Lyrica 200 MG Lyrica 200 MG 12/20/2019 12:00:00 AM EDT active Lyrica 2 00 MG eCW1 ([facility]) pregabalin 200 MG Oral Capsule [Lyrica] Lyrica 200 MG Lyrica 200 MG 12/20/2019 12:00:00 AM EDT active Lyrica 2 00 MG eCW1 ([facility]) pregabalin 200 MG Oral Capsule [Lyrica] Lyrica 200 MG Lyrica 200 MG 12/20/2019 12:00:00 AM EDT active Lyrica 2 00 MG eCW1 ([facility]) pregabalin 200 MG Oral Capsule [Lyrica] Lyrica 200 MG Lyrica 200 MG 12/20/2019 12:00:00 AM EDT active Lyrica 2 00 MG eCW1 ([facility]) pregabalin 200 MG Oral Capsule [Lyrica] Lyrica 200 MG Lyrica 200 MG 12/20/2019 12:00:00 AM EDT active Lyrica 2 00 MG eCW1 ([facility]) pregabalin 200 MG Oral Capsule [Lyrica] Lyrica 200 MG Lyrica 200 MG 12/20/2019 12:00:00 AM EDT active Lyrica 2 00 MG eCW1 ([facility]) pregabalin 200 MG Oral Capsule [Lyrica] Lyrica 200 MG Lyrica 200 MG 12/20/2019 12:00:00 AM EDT active Lyrica 2 00 MG eCW1 ([facility]) pregabalin 200 MG Oral Capsule [Lyrica] Lyrica 200 MG Lyrica 200 MG 12/20/2019 12:00:00 AM EDT active Lyrica 2 00 MG eCW1 ([facility]) pregabalin 200 MG Oral Capsule [Lyrica] Lyrica 200 MG Lyrica 200 MG 12/20/2019 12:00:00 AM EDT active Lyrica 2 00 MG eCW1 ([facility]) pregabalin 200 MG Oral Capsule [Lyrica] Lyrica 200 MG Lyrica 200 MG 12/20/2019 12:00:00 AM EDT active Lyrica 2 00 MG eCW1 ([facility]) pregabalin 200 MG Oral Capsule [Lyrica] Lyrica 200 MG Lyrica 200 MG 12/20/2019 12:00:00 AM EDT active Lyrica 2 00 MG eCW1 ([facility]) pregabalin 200 MG Oral Capsule [Lyrica] Lyrica 200 MG Lyrica 200 MG 12/20/2019 12:00:00 AM EDT active Lyrica 2 00 MG eCW1 ([facility]) pregabalin 200 MG Oral Capsule [Lyrica] Lyrica 200 MG Lyrica 200 MG 12/20/2019 12:00:00 AM EDT active Lyrica 2 00 MG eCW1 ([facility]) pregabalin 200 MG Oral Capsule [Lyrica] Lyrica 200 MG Lyrica 200 MG 12/20/2019 12:00:00 AM EDT active Lyrica 2 00 MG eCW1 ([facility]) pregabalin 200 MG Oral Capsule [Lyrica] Lyrica 200 MG Lyrica 200 MG 12/20/2019 12:00:00 AM EDT active Lyrica 2 00 MG eCW1 ([facility]) pregabalin 200 MG Oral Capsule [Lyrica] Lyrica 200 MG Lyrica 200 MG 12/20/2019 12:00:00 AM EDT active Lyrica 2 00 MG eCW1 ([facility]) pregabalin 200 MG Oral Capsule [Lyrica] Lyrica 200 MG Lyrica 200 MG 12/20/2019 12:00:00 AM EDT active Lyrica 2 00 MG eCW1 ([facility]) pregabalin 200 MG Oral Capsule [Lyrica] Lyrica 200 MG Lyrica 200 MG 12/20/2019 12:00:00 AM EDT active Lyrica 2 00 MG eCW1 ([facility]) pregabalin 200 MG Oral Capsule [Lyrica] Lyrica 200 MG Lyrica 200 MG 12/20/2019 12:00:00 AM EDT active Lyrica 2 00 MG eCW1 ([facility]) pregabalin 200 MG Oral Capsule [Lyrica] Lyrica 200 MG Lyrica 200 MG 12/20/2019 12:00:00 AM EDT active Lyrica 2 00 MG eCW1 ([facility]) pregabalin 200 MG Oral Capsule [Lyrica] Lyrica 200 MG Lyrica 200 MG 12/20/2019 12:00:00 AM EDT active Lyrica 2 00 MG eCW1 ([facility]) pregabalin 200 MG Oral Capsule [Lyrica] Lyrica 200 MG Lyrica 200 MG 12/20/2019 12:00:00 AM EDT active Lyrica 2 00 MG eCW1 ([facility]) pregabalin 200 MG Oral Capsule [Lyrica] Lyrica 200 MG Lyrica 200 MG 12/20/2019 12:00:00 AM EDT active Lyrica 2 00 MG eCW1 ([facility]) pregabalin 200 MG Oral Capsule [Lyrica] Lyrica 200 MG Lyrica 200 MG 12/20/2019 12:00:00 AM EDT active Lyrica 2 00 MG eCW1 ([facility]) pregabalin 200 MG Oral Capsule [Lyrica] Lyrica 200 MG Lyrica 200 MG 12/20/2019 12:00:00 AM EDT active Lyrica 2 00 MG eCW1 ([facility]) pregabalin 200 MG Oral Capsule [Lyrica] Lyrica 200 MG Lyrica 200 MG 12/20/2019 12:00:00 AM EDT active Lyrica 2 00 MG eCW1 ([facility]) pregabalin 200 MG Oral Capsule [Lyrica] Lyrica 200 MG Lyrica 200 MG 12/20/2019 12:00:00 AM EDT active Lyrica 2 00 MG eCW1 ([facility]) pregabalin 200 MG Oral Capsule [Lyrica] Lyrica 200 MG Lyrica 200 MG 12/20/2019 12:00:00 AM EDT active Lyrica 2 00 MG eCW1 ([facility]) pregabalin 200 MG Oral Capsule [Lyrica] Lyrica 200 MG Lyrica 200 MG 12/20/2019 12:00:00 AM EDT active Lyrica 2 00 MG eCW1 ([facility]) Acetaminophen 325 MG / Hydrocodone [place] trate 5 MG Oral Tablet Hydrocodone- Acetaminophen 5-325 MG Hydrocodone-Acetaminophen 5-325 MG 12/17/2019 12:00:00 AM EDT active Hydrocodone-Aceta minophen 5-325 MG eCW1 ([facility]) Acetaminophen 325 MG / Hydrocodone [place] trate 5 MG Oral Tablet Hydrocodone- Acetaminophen 5-325 MG Hydrocodone-Acetaminophen 5-325 MG 12/17/2019 12:00:00 AM EDT active Hydrocodone-Aceta minophen 5-325 MG eCW1 ([facility]) Acetaminophen 325 MG / Hydrocodone [place] trate 5 MG Oral Tablet Hydrocodone- Acetaminophen 5-325 MG Hydrocodone-Acetaminophen 5-325 MG 12/17/2019 12:00:00 AM EDT active Hydrocodone-Aceta minophen 5-325 MG eCW1 ([facility]) Acetaminophen 325 MG / Hydrocodone [place] trate 5 MG Oral Tablet Hydrocodone- Acetaminophen 5-325 MG Hydrocodone-Acetaminophen 5-325 MG 12/17/2019 12:00:00 AM EDT active Hydrocodone-Aceta minophen 5-325 MG eCW1 ([facility]) Acetaminophen 325 MG / Hydrocodone [place] trate 5 MG Oral Tablet Hydrocodone- Acetaminophen 5-325 MG Hydrocodone-Acetaminophen 5-325 MG 12/17/2019 12:00:00 AM EDT active Hydrocodone-Aceta minophen 5-325 MG eCW1 ([facility]) Acetaminophen 325 MG / Hydrocodone [place] trate 5 MG Oral Tablet Hydrocodone- Acetaminophen 5-325 MG Hydrocodone-Acetaminophen 5-325 MG 12/17/2019 12:00:00 AM EDT active Hydrocodone-Aceta minophen 5-325 MG eCW1 ([facility]) Acetaminophen 325 MG / Hydrocodone [place] trate 5 MG Oral Tablet Hydrocodone- Acetaminophen 5-325 MG Hydrocodone-Acetaminophen 5-325 MG 12/17/2019 12:00:00 AM EDT active Hydrocodone-Aceta minophen 5-325 MG eCW1 ([facility]) Acetaminophen 325 MG / Hydrocodone [place] trate 5 MG Oral Tablet Hydrocodone- Acetaminophen 5-325 MG Hydrocodone-Acetaminophen 5-325 MG 12/17/2019 12:00:00 AM EDT active Hydrocodone-Aceta minophen 5-325 MG eCW1 ([facility]) Acetaminophen 325 MG / Hydrocodone [place] trate 5 MG Oral Tablet Hydrocodone- Acetaminophen 5-325 MG Hydrocodone-Acetaminophen 5-325 MG 12/17/2019 12:00:00 AM EDT active Hydrocodone-Aceta minophen 5-325 MG eCW1 ([facility]) Acetaminophen 325 MG / Hydrocodone [place] trate 5 MG Oral Tablet Hydrocodone- Acetaminophen 5-325 MG Hydrocodone-Acetaminophen 5-325 MG 12/17/2019 12:00:00 AM EDT active Hydrocodone-Aceta minophen 5-325 MG eCW1 ([facility]) Acetaminophen 325 MG / Hydrocodone [place] trate 5 MG Oral Tablet Hydrocodone- Acetaminophen 5-325 MG Hydrocodone-Acetaminophen 5-325 MG 12/17/2019 12:00:00 AM EDT active Hydrocodone-Aceta minophen 5-325 MG eCW1 ([facility]) Acetaminophen 325 MG / Hydrocodone [place] trate 5 MG Oral Tablet Hydrocodone- Acetaminophen 5-325 MG Hydrocodone-Acetaminophen 5-325 MG 12/17/2019 12:00:00 AM EDT active Hydrocodone-Aceta minophen 5-325 MG eCW1 ([facility]) Acetaminophen 325 MG / Hydrocodone [place] trate 5 MG Oral Tablet Hydrocodone- Acetaminophen 5-325 MG Hydrocodone-Acetaminophen 5-325 MG 12/17/2019 12:00:00 AM EDT active Hydrocodone-Aceta minophen 5-325 MG eCW1 ([facility]) Acetaminophen 325 MG / Hydrocodone [place] trate 5 MG Oral Tablet Hydrocodone- Acetaminophen 5-325 MG Hydrocodone-Acetaminophen 5-325 MG 12/17/2019 12:00:00 AM EDT active Hydrocodone-Aceta minophen 5-325 MG eCW1 ([facility]) Acetaminophen 325 MG / Hydrocodone [place] trate 5 MG Oral Tablet Hydrocodone- Acetaminophen 5-325 MG Hydrocodone-Acetaminophen 5-325 MG 12/17/2019 12:00:00 AM EDT active Hydrocodone-Aceta minophen 5-325 MG eCW1 ([facility]) Acetaminophen 325 MG / Hydrocodone [place] trate 5 MG Oral Tablet Hydrocodone- Acetaminophen 5-325 MG Hydrocodone-Acetaminophen 5-325 MG 12/17/2019 12:00:00 AM EDT active Hydrocodone-Aceta minophen 5-325 MG eCW1 ([facility]) Acetaminophen 325 MG / Hydrocodone [place] trate 5 MG Oral Tablet Hydrocodone- Acetaminophen 5-325 MG Hydrocodone-Acetaminophen 5-325 MG 12/17/2019 12:00:00 AM EDT active Hydrocodone-Aceta minophen 5-325 MG eCW1 ([facility]) Acetaminophen 325 MG / Hydrocodone [place] trate 5 MG Oral Tablet Hydrocodone- Acetaminophen 5-325 MG Hydrocodone-Acetaminophen 5-325 MG 12/17/2019 12:00:00 AM EDT active Hydrocodone-Aceta minophen 5-325 MG eCW1 ([facility]) Acetaminophen 325 MG / Hydrocodone [place] trate 5 MG Oral Tablet Hydrocodone- Acetaminophen 5-325 MG Hydrocodone-Acetaminophen 5-325 MG 12/17/2019 12:00:00 AM EDT active Hydrocodone-Aceta minophen 5-325 MG eCW1 ([facility]) 3 ML Insulin, Aspart, Human 100 UNT/ML P en Injector [NovoLog] NovoLog Flexpen 100 UNIT/ML NovoLog Flexpen 100 UNIT/ML 09/11/2019 12:00:00 AM EDT active NovoLog Flexpen 100 UNIT/ML eCW1 ([facility]) 3 ML Insulin, Aspart, Human 100 UNT/ML P en Injector [NovoLog] NovoLog Flexpen 100 UNIT/ML NovoLog Flexpen 100 UNIT/ML 09/11/2019 12:00:00 AM EDT active NovoLog Flexpen 100 UNIT/ML eCW1 ([facility]) 3 ML Insulin, Aspart, Human 100 UNT/ML P en Injector [NovoLog] NovoLog Flexpen 100 UNIT/ML NovoLog Flexpen 100 UNIT/ML 09/11/2019 12:00:00 AM EDT active NovoLog Flexpen 100 UNIT/ML eCW1 ([facility]) 3 ML Insulin, Aspart, Human 100 UNT/ML P en Injector [NovoLog] NovoLog Flexpen 100 UNIT/ML NovoLog Flexpen 100 UNIT/ML 09/11/2019 12:00:00 AM EDT active NovoLog Flexpen 100 UNIT/ML eCW1 ([facility]) 3 ML Insulin, Aspart, Human 100 UNT/ML P en Injector [NovoLog] NovoLog Flexpen 100 UNIT/ML NovoLog Flexpen 100 UNIT/ML 09/11/2019 12:00:00 AM EDT active NovoLog Flexpen 100 UNIT/ML eCW1 ([facility]) 3 ML Insulin, Aspart, Human 100 UNT/ML P en Injector [NovoLog] NovoLog Flexpen 100 UNIT/ML NovoLog Flexpen 100 UNIT/ML 09/11/2019 12:00:00 AM EDT active NovoLog Flexpen 100 UNIT/ML eCW1 ([facility]) 3 ML Insulin, Aspart, Human 100 UNT/ML P en Injector [NovoLog] NovoLog Flexpen 100 UNIT/ML NovoLog Flexpen 100 UNIT/ML 09/11/2019 12:00:00 AM EDT active NovoLog Flexpen 100 UNIT/ML eCW1 ([facility]) 3 ML Insulin, Aspart, Human 100 UNT/ML P en Injector [NovoLog] NovoLog Flexpen 100 UNIT/ML NovoLog Flexpen 100 UNIT/ML 09/11/2019 12:00:00 AM EDT active NovoLog Flexpen 100 UNIT/ML eCW1 ([facility]) Cymbalta 60 MG UNK 09/09/2019 12:00:00 AM EDT active Cymbalta 60 MG eCW1 ([facility]) Cymbalta 60 MG UNK 09/09/2019 12:00:00 AM EDT active Cymbalta 60 MG eCW1 ([facility]) Cymbalta 60 MG UNK 09/09/2019 12:00:00 AM EDT active Cymbalta 60 MG eCW1 ([facility]) Cymbalta 60 MG UNK 09/09/2019 12:00:00 AM EDT active Cymbalta 60 MG eCW1 ([facility]) Cymbalta 60 MG UNK 09/09/2019 12:00:00 AM EDT active Cymbalta 60 MG eCW1 ([facility]) Cymbalta 60 MG UNK 09/09/2019 12:00:00 AM EDT active Cymbalta 60 MG eCW1 ([facility]) Cymbalta 60 MG UNK 09/09/2019 12:00:00 AM EDT active Cymbalta 60 MG eCW1 ([facility]) Cymbalta 60 MG UNK 09/09/2019 12:00:00 AM EDT active Cymbalta 60 MG eCW1 ([facility]) Cymbalta 60 MG UNK 09/09/2019 12:00:00 AM EDT active Cymbalta 60 MG eCW1 ([facility]) Cymbalta 60 MG UNK 09/09/2019 12:00:00 AM EDT active Cymbalta 60 MG eCW1 ([facility]) Cymbalta 60 MG UNK 09/09/2019 12:00:00 AM EDT active Cymbalta 60 MG eCW1 ([facility]) Cymbalta 60 MG UNK 09/09/2019 12:00:00 AM EDT active Cymbalta 60 MG eCW1 ([facility]) Cymbalta 60 MG UNK 09/09/2019 12:00:00 AM EDT active Cymbalta 60 MG eCW1 ([facility]) Cymbalta 60 MG UNK 09/09/2019 12:00:00 AM EDT active Cymbalta 60 MG eCW1 ([facility]) Cymbalta 60 MG UNK 09/09/2019 12:00:00 AM EDT active Cymbalta 60 MG eCW1 ([facility]) Cymbalta 60 MG UNK 09/09/2019 12:00:00 AM EDT active Cymbalta 60 MG eCW1 ([facility]) Cymbalta 60 MG UNK 09/09/2019 12:00:00 AM EDT active Cymbalta 60 MG eCW1 ([facility]) Cymbalta 60 MG UNK 09/09/2019 12:00:00 AM EDT active Cymbalta 60 MG eCW1 ([facility]) Cymbalta 60 MG UNK 09/09/2019 12:00:00 AM EDT active Cymbalta 60 MG eCW1 ([facility]) Cymbalta 60 MG UNK 09/09/2019 12:00:00 AM EDT active Cymbalta 60 MG eCW1 ([facility]) Cymbalta 60 MG UNK 09/09/2019 12:00:00 AM EDT active Cymbalta 60 MG eCW1 ([facility]) Cymbalta 60 MG UNK 09/09/2019 12:00:00 AM EDT active Cymbalta 60 MG eCW1 ([facility]) Cymbalta 60 MG UNK 09/09/2019 12:00:00 AM EDT active Cymbalta 60 MG eCW1 ([facility]) Cymbalta 60 MG UNK 09/09/2019 12:00:00 AM EDT active Cymbalta 60 MG eCW1 ([facility]) Cymbalta 60 MG UNK 09/09/2019 12:00:00 AM EDT active Cymbalta 60 MG eCW1 ([facility]) Cymbalta 60 MG UNK 09/09/2019 12:00:00 AM EDT active Cymbalta 60 MG eCW1 ([facility]) Cymbalta 60 MG UNK 09/09/2019 12:00:00 AM EDT active Cymbalta 60 MG eCW1 ([facility]) Cymbalta 60 MG UNK 09/09/2019 12:00:00 AM EDT active Cymbalta 60 MG eCW1 ([facility]) Cymbalta 60 MG UNK 09/09/2019 12:00:00 AM EDT active Cymbalta 60 MG eCW1 ([facility]) Cymbalta 60 MG UNK 09/09/2019 12:00:00 AM EDT active Cymbalta 60 MG eCW1 ([facility]) Cymbalta 60 MG UNK 09/09/2019 12:00:00 AM EDT active Cymbalta 60 MG eCW1 ([facility]) normal saline flush 0.9 % injection 3 mL 57613-840-44 08/27/2019 02:00:00 PM EDT 3 mL Intravenous active 3 mL , Intravenous, PROTOCOL, First dose on Mon08/27/19 at 1400, Pre-op
flush per protocol, D/C Main IV fluid if appropriate
[facility] Medication administered onsite sodium chloride 0.9% (NS) infusion 5669-7019-88 08/27/2019 10:00:00 A M EDT Intravenous active at 100 mL/hr, Intravenous, Continuous, Starting Mon08/27/19 at 1000, For 2 hours, Post-op [facility] Medication administered onsite Acetaminophen 325 MG Oral Tablet acetaminophen (TYLENO L) 325 MG tablet 650 mg acetaminophen (TYLENOL) 325 MG tablet 650 mg 08/27/2019 08:45:10 AM EDT 650 mg Oral active 650 mg, Or al, Every 4 hours PRN, headaches, and non cardiac pain, Starting Mon08/27/19 at 0845, Post-op
"Maximum dose of acetaminophen is 4,000 mg from all sources in 24 hours."
[facility] Medication administered onsite Nitroglycerin 0.4 MG Sublingual Tablet n itroglycerin (NITROSTAT) SL tablet 0.4 mg nitroglycerin (NITROSTAT) SL tablet 0.4 mg 08/27/2019 08:45:10 A M EDT 0.4 mg Sublingual active 0.4 mg, S ublingual, Every 5 min PRN, chest pain, Starting Mon08/27/19 at 0845, Post-op
May administer every 5 minutes for 3 doses and call cardio lab MD.
[facility] Medication administered onsite iopamidol (ISOVUE-370) 76 % [id number] 08/27/2019 08:23:38 AM EDT active As needed, Starting Mon08/27/19 at 0823, Intra-Procedu re [facility] Medication administered onsite NITROGLYCERIN 0.4 MG/ML IV SOLN [id number] 08/27/2019 08:18:05 AM EDT active As needed, Starting 08/26 at 0818, Intra-Procedure [facility] Medication administered onsite 1 ML heparin sodium, porcine 1000 UNT/ML Injection hep kait (porcine) injection heparin (porcine) injection 08/27/2019 08:16:53 AM EDT active As needed, Starting Mon08/27/19 at 0816, Intra-Procedure [facility] Medication administered onsite lidocaine 1 % injection 1189-1003-62 08/27/2019 08:16:05 AM EDT active As needed, Starting Mon08/27/19 at 0816, Intra-Procedure [facility] Medication administered onsite 2 ML Midazolam 1 MG/ML Injection midazolam (VERSED) in jection midazolam (VERSED) injection 08/27/2019 08:09:04 AM EDT active As needed, Starting Mon08/27/19 at 0809, Intra-Procedure [facility] Medication administered onsite fentaNYL Citrate (PF) (SUBLIMAZE) injection [id number] 08/27/2019 08:08:54 AM EDT active As neede d, Starting Mon08/27/19 at 0808, Intra-Procedure [facility] Medication administered onsite sodium chloride 0.9% (NS) infusion 3538-5051-53 08/27/2019 07:00:00 AM EDT 100 mL/h Intravenous active at 100 m L/hr, 100 mL/hr, Intravenous, Continuous, Starting Mon08/27/19 at 0700, Pre-op
Start two hours prior to scheduled start time
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
Rapid push positive pressure flushing shall be performed with a 10 cc normal saline syringe to check the PATENCY of a PIV site prior to any infusion therapy initiation unless resistance is met.
[facility] Medication administered onsite apixaban 5 MG Oral Tablet [Eliquis] Eliquis 08/26/2019 12:00:00 AM E DT ORAL active [facility] ([facility] 24 HR Isosorbide Mononitrate 30 MG Exten ded Release Oral Tablet isosorbide mononitrate (IMDUR) 30 MG 24 hr tablet isosorbide mononitrate (IMDUR) 30 MG 24 hr tablet 08/23/2019 12:00:00 AM EDT active Take 1 tablet daily two days prior to procedure [facility] Aspirin 81 MG Delayed Release Oral Tablet Aspirin Ec 2019 12:00:00 AM EDT ORAL active MEDENT ( [facility]) clopidogrel 75 MG Oral Tablet Clopidogrel Bisulfate 08/13/2019 1 2:00:00 AM EDT ORAL active MEDENT ( [facility]) icosapent ethyl 1000 MG Oral Capsule [Vascepa] Vascepa 08/13/2019 12:00:00 AM EDT ORAL active [facility] Fenofibrate 160 MG Oral Tablet Fenofibrate 2019 12:00:00 AM EDT ORAL completed [facility] ([facility]) Docusate Sodium 100 MG Oral Capsule [Colace] Colace 03/2019 12:00:00 AM EDT ORAL active MEDENT ( [facility]) Omeprazole 40 MG Delayed Release Oral Capsule Omeprazole 2019 12:00:00 AM EDT ORAL active [facility] ([facility] Cholecalciferol 2000 UNT Oral Capsule Vitamin D3 Super Stren gth 2019 12:00:00 AM EDT ORAL active M EDENT ([facility]) Chlorthalidone 25 MG Oral Tablet Chlorthalidone 2019 12:00:00 A M EDT ORAL active [facility] ([facility] valsartan 80 MG Oral Tablet Valsartan 2019 12:00:00 AM EDT ORAL active [facility] ([facility]) pregabalin 150 MG Oral Capsule [Lyrica] Lyrica 2019 12:00:0 0 AM EDT ORAL active [facility] ([facility] Albuterol 0.83 MG/ML Inhalant Solution Albuterol Sulfate 0 2019 12:00:00 AM EDT active [facility] ([facility] duloxetine 60 MG Delayed Release Oral Capsule [Cymbalta] Cym nena 2019 12:00:00 AM EDT ORAL active M EDENT ([facility]) [employer] Senior - [employer] Senior - 08/09/2019 12:00:00 AM EDT active [facility] Senior - eCW1 ([facility]) [employer] Senior - [employer] Senior - 08/09/2019 12:00:00 AM EDT active [employer] Senior - eCW ([facility]) [employer] Senior - [employer] Senior - 08/09/2019 12:00:00 AM EDT active [employer] Senior - eCW1 ([facility]) [employer] Senior - [employer] Senior - 08/09/2019 12:00:00 AM EDT active [employer] Senior - eCW1 ([facility]) [employer] Senior - [employer] Senior - 08/09/2019 12:00:00 AM EDT active [employer] Senior - eCW1 ([facility]) [employer] Senior - [employer] Senior - 08/09/2019 12:00:00 AM EDT active [employer] Senior - eCW1 ([facility]) [employer] Senior - [employer] Senior - 08/09/2019 12:00:00 AM EDT active [employer] Senior - eCW1 ([facility]) [employer] Senior - [employer] Senior - 08/09/2019 12:00:00 AM EDT active [employer] Senior - eCW1 ([facility]) POLYETHYLENE GLYCOL 3350 105 MG/ML / Pot assium Chloride 0.68644 MEQ/ML / Sodium Bicarbonate 0.017 MEQ/ML / Sodium Chloride 0.0479 MEQ/ML Oral Solution [TriLyte] Trilyte 08/09/2019 12:00:00 AM EDT active MEDENT ([facility], ) Magnesium Hydroxide 80 MG/ML Oral Suspension Milk Of Magnesi a 08/09/2019 12:00:00 AM EDT ORAL active M EDENT ([facility], ) Cer[employer] Senior - [employer] Senior - 08/09/2019 12:00:00 AM EDT active [employer] Senior - eCW1 ([facility]) [employer] Senior - [employer] Senior - 08/09/2019 12:00:00 AM EDT active [employer] Senior - eCW1 ([facility]) [employer] Senior - [employer] Senior - 08/09/2019 12:00:00 AM EDT active [employer] Senior - eCW1 ([facility]) [employer] Senior - [employer] Senior - 08/09/2019 12:00:00 AM EDT active [employer] Senior - eCW1 ([facility]) [employer] Senior - [employer] Senior - 08/09/2019 12:00:00 AM EDT active [employer] Senior - eCW1 ([facility]) [employer] Senior - [employer] Senior - 08/09/2019 12:00:00 AM EDT active [employer] Senior - eCW1 ([facility]) [employer] Senior - [employer] Senior - 08/09/2019 12:00:00 AM EDT active [employer] Senior - eCW1 ([facility]) [employer] Senior - [employer] Senior - 08/09/2019 12:00:00 AM EDT active [employer] Senior - eCW1 ([facility]) [employer] Senior - [employer] Senior - 08/09/2019 12:00:00 AM EDT active [employer] Senior - eCW1 ([facility]) [employer] Senior - [employer] Senior - 08/09/2019 12:00:00 AM EDT active [employer] Senior - eCW1 ([facility]) [employer] Senior - [employer] Senior - 08/09/2019 12:00:00 AM EDT active [employer] Senior - eCW1 ([facility]) [employer] Senior - [employer] Senior - 08/09/2019 12:00:00 AM EDT active [employer] Senior - eCW1 ([facility]) [employer] Senior - [employer] Senior - 08/09/2019 12:00:00 AM EDT active [employer] Senior - eCW1 ([facility]) [employer] Senior - [employer] Senior - 08/09/2019 12:00:00 AM EDT active [employer] Senior - eCW1 ([facility]) [employer] Senior - [employer] Senior - 08/09/2019 12:00:00 AM EDT active [employer] Senior - eCW1 ([facility]) [employer] Senior - [employer] Senior - 08/09/2019 12:00:00 AM EDT active [facility] Senior - eCW1 ([facility]) [facility] Senior - Cer[facility]ite [facility] - 08/09/2019 12:00:00 AM EDT active [employer] Senior - eCW1 ([facility]) [facility] - [facility] - 08/09/2019 12:00:00 AM EDT active [employer] Senior - eCW1 ([facility]) [facility] - [facility] - 08/09/2019 12:00:00 AM EDT active [facility] Senior - eCW1 ([facility]) [facility] - [facility] - 08/09/2019 12:00:00 AM EDT active Cer[facility] Senior - eCW1 ([facility]) Cer[facility]ite [facility] - 08/09/2019 12:00:00 AM EDT active [employer] Senior - eCW1 ([facility]) [facility] - [facility] - 08/09/2019 12:00:00 AM EDT active [employer] Senior - eCW1 ([facility]) [facility] - 08/09/2019 12:00:00 AM EDT active Cer[employer] Senior - eCW1 ([facility]) [facility] - 08/09/2019 12:00:00 AM EDT active 1 tab eCW1 ([facility]) [facility] - 08/09/2019 12:00:00 AM EDT active [employer] Senior - eCW1 ([facility]) [facility] Senior [facility] - 08/09/2019 12:00:00 AM EDT active [employer] Senior - eCW1 ([facility]) 200 ACTUAT Albuterol 0.09 MG/ACTUAT Mete red Dose Inhaler [ProAir] ProAir HFA 108 (90 Base) MCG/ACT ProAir HFA 108 (90 Base) MCG/ACT 08/07/2019 12:00:00 AM EDT 2.0 {puff_as_needed} active Pro Air HFA 108 (90 Base) MCG/ACT eCW1 ([facility]) 200 ACTUAT Albuterol 0.09 MG/ACTUAT Mete red Dose Inhaler [ProAir] ProAir HFA 108 (90 Base) MCG/ACT ProAir HFA 108 (90 Base) MCG/ACT 08/07/2019 12:00:00 AM EDT 2.0 {puff_as_needed} active Pro Air HFA 108 (90 Base) MCG/ACT eCW1 ([facility]) 200 ACTUAT Albuterol 0.09 MG/ACTUAT Mete red Dose Inhaler [ProAir] ProAir HFA 108 (90 Base) MCG/ACT ProAir HFA 108 (90 Base) MCG/ACT 08/07/2019 12:00:00 AM EDT 2.0 {puff_as_needed} active Pro Air HFA 108 (90 Base) MCG/ACT eCW1 ([facility]) valsartan 80 MG Oral Tablet Valsartan 80 MG Valsartan 80 MG 08/07/2019 12:00:00 AM EDT active Valsartan 80 MG e CW1 ([facility]) 200 ACTUAT Albuterol 0.09 MG/ACTUAT Mete red Dose Inhaler [ProAir] ProAir HFA 108 (90 Base) MCG/ACT ProAir HFA 108 (90 Base) MCG/ACT 08/07/2019 12:00:00 AM EDT 2.0 {puff_as_needed} active Pro Air HFA 108 (90 Base) MCG/ACT eCW1 ([facility]) 200 ACTUAT Albuterol 0.09 MG/ACTUAT Mete red Dose Inhaler [ProAir] ProAir HFA 108 (90 Base) MCG/ACT ProAir HFA 108 (90 Base) MCG/ACT 08/07/2019 12:00:00 AM EDT 2.0 {puff_as_needed} active Pro Air HFA 108 (90 Base) MCG/ACT eCW1 ([facility]) 200 ACTUAT Albuterol 0.09 MG/ACTUAT Mete red Dose Inhaler [ProAir] ProAir HFA 108 (90 Base) MCG/ACT ProAir HFA 108 (90 Base) MCG/ACT 08/07/2019 12:00:00 AM EDT 2.0 {puff_as_needed} active Pro Air HFA 108 (90 Base) MCG/ACT eCW1 ([facility]) BD AutoShield Duo 30G X 5 MM BD AutoShield Duo 30G X 5 MM 12:00:00 AM EDT active BD AutoShield Duo 30G X 5 MM eCW1 ([facility]) 200 ACTUAT Albuterol 0.09 MG/ACTUAT Mete red Dose Inhaler [ProAir] ProAir HFA 108 (90 Base) MCG/ACT ProAir HFA 108 (90 Base) MCG/ACT 08/07/2019 12:00:00 AM EDT 2.0 {puff_as_needed} active Pro Air HFA 108 (90 Base) MCG/ACT eCW1 ([facility]) BD AutoShield Duo 30G X 5 MM BD AutoShield Duo 30G X 5 MM 12:00:00 AM EDT active BD AutoShield Duo 30G X 5 MM eCW1 ([facility]) BD AutoShield Duo 30G X 5 MM BD AutoShield Duo 30G X 5 MM 12:00:00 AM EDT active BD AutoShield Duo 30G X 5 MM eCW1 ([facility]) 200 ACTUAT Albuterol 0.09 MG/ACTUAT Mete red Dose Inhaler [ProAir] ProAir HFA 108 (90 Base) MCG/ACT ProAir HFA 108 (90 Base) MCG/ACT 08/07/2019 12:00:00 AM EDT 2.0 {puff_as_needed} active Pro Air HFA 108 (90 Base) MCG/ACT eCW1 ([facility]) 200 ACTUAT Albuterol 0.09 MG/ACTUAT Mete red Dose Inhaler [ProAir] ProAir HFA 108 (90 Base) MCG/ACT ProAir HFA 108 (90 Base) MCG/ACT 08/07/2019 12:00:00 AM EDT 2.0 {puff_as_needed} active Pro Air HFA 108 (90 Base) MCG/ACT eCW1 ([facility]) BD AutoShield Duo 30G X 5 MM BD AutoShield Duo 30G X 5 MM 12:00:00 AM EDT active BD AutoShield Duo 30G X 5 MM eCW1 ([facility]) BD AutoShield Duo 30G X 5 MM BD AutoShield Duo 30G X 5 MM 12:00:00 AM EDT active BD AutoShield Duo 30G X 5 MM eCW1 ([facility]) 200 ACTUAT Albuterol 0.09 MG/ACTUAT Mete red Dose Inhaler [ProAir] ProAir HFA 108 (90 Base) MCG/ACT ProAir HFA 108 (90 Base) MCG/ACT 08/07/2019 12:00:00 AM EDT 2.0 {puff_as_needed} active Pro Air HFA 108 (90 Base) MCG/ACT eCW1 ([facility]) valsartan 80 MG Oral Tablet Valsartan 80 MG Valsartan 80 MG 08/07/2019 12:00:00 AM EDT active Valsartan 80 MG e CW1 ([facility]) valsartan 80 MG Oral Tablet Valsartan 80 MG Valsartan 80 MG 08/07/2019 12:00:00 AM EDT active Valsartan 80 MG e CW1 ([facility]) BD AutoShield Duo 30G X 5 MM BD AutoShield Duo 30G X 5 MM 12:00:00 AM EDT active BD AutoShield Duo 30G X 5 MM eCW1 ([facility]) 200 ACTUAT Albuterol 0.09 MG/ACTUAT Mete red Dose Inhaler [ProAir] ProAir HFA 108 (90 Base) MCG/ACT ProAir HFA 108 (90 Base) MCG/ACT 08/07/2019 12:00:00 AM EDT 2.0 {puff_as_needed} active Pro Air HFA 108 (90 Base) MCG/ACT eCW1 ([facility]) valsartan 80 MG Oral Tablet Valsartan 80 MG Valsartan 80 MG 08/07/2019 12:00:00 AM EDT active Valsartan 80 MG e CW1 ([facility]) 200 ACTUAT Albuterol 0.09 MG/ACTUAT Mete red Dose Inhaler [ProAir] ProAir HFA 108 (90 Base) MCG/ACT ProAir HFA 108 (90 Base) MCG/ACT 08/07/2019 12:00:00 AM EDT 2.0 {puff_as_needed} active Pro Air HFA 108 (90 Base) MCG/ACT eCW1 ([facility]) BD AutoShield Duo 30G X 5 MM BD AutoShield Duo 30G X 5 MM 12:00:00 AM EDT active BD AutoShield Duo 30G X 5 MM eCW1 ([facility]) BD AutoShield Duo 30G X 5 MM BD AutoShield Duo 30G X 5 MM 12:00:00 AM EDT active BD AutoShield Duo 30G X 5 MM eCW1 ([facility]) BD AutoShield Duo 30G X 5 MM BD AutoShield Duo 30G X 5 MM 12:00:00 AM EDT active BD AutoShield Duo 30G X 5 MM eCW1 ([facility]) BD AutoShield Duo 30G X 5 MM BD AutoShield Duo 30G X 5 MM 12:00:00 AM EDT active BD AutoShield Duo 30G X 5 MM eCW1 ([facility]) 200 ACTUAT Albuterol 0.09 MG/ACTUAT Mete red Dose Inhaler [ProAir] ProAir HFA 108 (90 Base) MCG/ACT ProAir HFA 108 (90 Base) MCG/ACT 08/07/2019 12:00:00 AM EDT 2.0 {puff_as_needed} active Pro Air HFA 108 (90 Base) MCG/ACT eCW1 ([facility]) 200 ACTUAT Albuterol 0.09 MG/ACTUAT Mete red Dose Inhaler [ProAir] ProAir HFA 108 (90 Base) MCG/ACT ProAir HFA 108 (90 Base) MCG/ACT 08/07/2019 12:00:00 AM EDT 2.0 {puff_as_needed} active Pro Air HFA 108 (90 Base) MCG/ACT eCW1 ([facility]) BD AutoShield Duo 30G X 5 MM BD AutoShield Duo 30G X 5 MM 12:00:00 AM EDT active BD AutoShield Duo 30G X 5 MM eCW1 ([facility]) 200 ACTUAT Albuterol 0.09 MG/ACTUAT Mete red Dose Inhaler [ProAir] ProAir HFA 108 (90 Base) MCG/ACT ProAir HFA 108 (90 Base) MCG/ACT 08/07/2019 12:00:00 AM EDT 2.0 {puff_as_needed} active Pro Air HFA 108 (90 Base) MCG/ACT eCW1 ([facility]) BD AutoShield Duo 30G X 5 MM BD AutoShield Duo 30G X 5 MM 12:00:00 AM EDT active BD AutoShield Duo 30G X 5 MM eCW1 ([facility]) 200 ACTUAT Albuterol 0.09 MG/ACTUAT Mete red Dose Inhaler [ProAir] ProAir HFA 108 (90 Base) MCG/ACT ProAir HFA 108 (90 Base) MCG/ACT 08/07/2019 12:00:00 AM EDT 2.0 {puff_as_needed} active Pro Air HFA 108 (90 Base) MCG/ACT eCW1 ([facility]) BD AutoShield Duo 30G X 5 MM BD AutoShield Duo 30G X 5 MM 12:00:00 AM EDT active BD AutoShield Duo 30G X 5 MM eCW1 ([facility]) valsartan 80 MG Oral Tablet Valsartan 80 MG Valsartan 80 MG 08/07/2019 12:00:00 AM EDT active Valsartan 80 MG e CW1 ([facility]) 200 ACTUAT Albuterol 0.09 MG/ACTUAT Mete red Dose Inhaler [ProAir] ProAir HFA 108 (90 Base) MCG/ACT ProAir HFA 108 (90 Base) MCG/ACT 08/07/2019 12:00:00 AM EDT 2.0 {puff_as_needed} active Pro Air HFA 108 (90 Base) MCG/ACT eCW1 ([facility]) 200 ACTUAT Albuterol 0.09 MG/ACTUAT Mete red Dose Inhaler [ProAir] ProAir HFA 108 (90 Base) MCG/ACT ProAir HFA 108 (90 Base) MCG/ACT 08/07/2019 12:00:00 AM EDT 2.0 {puff_as_needed} active Pro Air HFA 108 (90 Base) MCG/ACT eCW1 ([facility]) valsartan 80 MG Oral Tablet Valsartan 80 MG Valsartan 80 MG 08/07/2019 12:00:00 AM EDT active Valsartan 80 MG e CW1 ([facility]) BD AutoShield Duo 30G X 5 MM BD AutoShield Duo 30G X 5 MM 12:00:00 AM EDT active BD AutoShield Duo 30G X 5 MM eCW1 ([facility]) 200 ACTUAT Albuterol 0.09 MG/ACTUAT Mete red Dose Inhaler [ProAir] ProAir HFA 108 (90 Base) MCG/ACT ProAir HFA 108 (90 Base) MCG/ACT 08/07/2019 12:00:00 AM EDT 2.0 {puff_as_needed} active Pro Air HFA 108 (90 Base) MCG/ACT eCW1 ([facility]) valsartan 80 MG Oral Tablet Valsartan 80 MG Valsartan 80 MG 08/07/2019 12:00:00 AM EDT active Valsartan 80 MG e CW1 ([facility]) 200 ACTUAT Albuterol 0.09 MG/ACTUAT Mete red Dose Inhaler [ProAir] ProAir HFA 108 (90 Base) MCG/ACT ProAir HFA 108 (90 Base) MCG/ACT 08/07/2019 12:00:00 AM EDT 2.0 {puff_as_needed} active Pro Air HFA 108 (90 Base) MCG/ACT eCW1 ([facility]) 200 ACTUAT Albuterol 0.09 MG/ACTUAT Mete red Dose Inhaler [ProAir] ProAir HFA 108 (90 Base) MCG/ACT ProAir HFA 108 (90 Base) MCG/ACT 08/07/2019 12:00:00 AM EDT 2.0 {puff_as_needed} active Pro Air HFA 108 (90 Base) MCG/ACT eCW1 ([facility]) 200 ACTUAT Albuterol 0.09 MG/ACTUAT Mete red Dose Inhaler [ProAir] ProAir HFA 108 (90 Base) MCG/ACT ProAir HFA 108 (90 Base) MCG/ACT 08/07/2019 12:00:00 AM EDT 2.0 {puff_as_needed} active Pro Air HFA 108 (90 Base) MCG/ACT eCW1 ([facility]) valsartan 80 MG Oral Tablet Valsartan 80 MG Valsartan 80 MG 08/07/2019 12:00:00 AM EDT active Valsartan 80 MG e CW1 ([facility]) 200 ACTUAT Albuterol 0.09 MG/ACTUAT Mete red Dose Inhaler [ProAir] ProAir HFA 108 (90 Base) MCG/ACT ProAir HFA 108 (90 Base) MCG/ACT 08/07/2019 12:00:00 AM EDT 2.0 {puff_as_needed} active Pro Air HFA 108 (90 Base) MCG/ACT eCW1 ([facility]) valsartan 80 MG Oral Tablet Valsartan 80 MG Valsartan 80 MG 08/07/2019 12:00:00 AM EDT active Valsartan 80 MG e CW1 ([facility]) BD AutoShield Duo 30G X 5 MM BD AutoShield Duo 30G X 5 MM 12:00:00 AM EDT active BD AutoShield Duo 30G X 5 MM eCW1 ([facility]) 200 ACTUAT Albuterol 0.09 MG/ACTUAT Mete red Dose Inhaler [ProAir] ProAir HFA 108 (90 Base) MCG/ACT ProAir HFA 108 (90 Base) MCG/ACT 08/07/2019 12:00:00 AM EDT 2.0 {puff_as_needed} active Pro Air HFA 108 (90 Base) MCG/ACT eCW1 ([facility]) 200 ACTUAT Albuterol 0.09 MG/ACTUAT Mete red Dose Inhaler [ProAir] ProAir HFA 108 (90 Base) MCG/ACT ProAir HFA 108 (90 Base) MCG/ACT 08/07/2019 12:00:00 AM EDT 2.0 {puff_as_needed} active Pro Air HFA 108 (90 Base) MCG/ACT eCW1 ([facility]) BD AutoShield Duo 30G X 5 MM BD AutoShield Duo 30G X 5 MM 12:00:00 AM EDT active BD AutoShield Duo 30G X 5 MM eCW1 ([facility]) BD AutoShield Duo 30G X 5 MM BD AutoShield Duo 30G X 5 MM 12:00:00 AM EDT active BD AutoShield Duo 30G X 5 MM eCW1 ([facility]) BD AutoShield Duo 30G X 5 MM BD AutoShield Duo 30G X 5 MM 12:00:00 AM EDT active BD AutoShield Duo 30G X 5 MM eCW1 ([facility]) 200 ACTUAT Albuterol 0.09 MG/ACTUAT Mete red Dose Inhaler [ProAir] ProAir HFA 108 (90 Base) MCG/ACT ProAir HFA 108 (90 Base) MCG/ACT 08/07/2019 12:00:00 AM EDT 2.0 {puff_as_needed} active Pro Air HFA 108 (90 Base) MCG/ACT eCW1 ([facility]) BD AutoShield Duo 30G X 5 MM BD AutoShield Duo 30G X 5 MM 12:00:00 AM EDT active BD AutoShield Duo 30G X 5 MM eCW1 ([facility]) BD AutoShield Duo 30G X 5 MM BD AutoShield Duo 30G X 5 MM 12:00:00 AM EDT active BD AutoShield Duo 30G X 5 MM eCW1 ([facility]) valsartan 80 MG Oral Tablet Valsartan 80 MG Valsartan 80 MG 08/07/2019 12:00:00 AM EDT active 1/ 2 tab eCW1 ([facility]) BD AutoShield Duo 30G X 5 MM BD AutoShield Duo 30G X 5 MM 12:00:00 AM EDT active BD AutoShield Duo 30G X 5 MM eCW1 ([facility]) BD AutoShield Duo 30G X 5 MM BD AutoShield Duo 30G X 5 MM 12:00:00 AM EDT active BD AutoShield Duo 30G X 5 MM eCW1 ([facility]) 200 ACTUAT Albuterol 0.09 MG/ACTUAT Mete red Dose Inhaler [ProAir] ProAir HFA 108 (90 Base) MCG/ACT ProAir HFA 108 (90 Base) MCG/ACT 08/07/2019 12:00:00 AM EDT 2.0 {puff_as_needed} active Pro Air HFA 108 (90 Base) MCG/ACT eCW1 ([facility]) valsartan 80 MG Oral Tablet Valsartan 80 MG Valsartan 80 MG 08/07/2019 12:00:00 AM EDT active Valsartan 80 MG e CW1 ([facility]) 200 ACTUAT Albuterol 0.09 MG/ACTUAT Mete red Dose Inhaler [ProAir] ProAir HFA 108 (90 Base) MCG/ACT ProAir HFA 108 (90 Base) MCG/ACT 08/07/2019 12:00:00 AM EDT 2.0 {puff_as_needed} active Pro Air HFA 108 (90 Base) MCG/ACT eCW1 ([facility]) BD AutoShield Duo 30G X 5 MM BD AutoShield Duo 30G X 5 MM 12:00:00 AM EDT active BD AutoShield Duo 30G X 5 MM eCW1 ([facility]) 200 ACTUAT Albuterol 0.09 MG/ACTUAT Mete red Dose Inhaler [ProAir] ProAir HFA 108 (90 Base) MCG/ACT ProAir HFA 108 (90 Base) MCG/ACT 08/07/2019 12:00:00 AM EDT 2.0 {puff_as_needed} active Pro Air HFA 108 (90 Base) MCG/ACT eCW1 ([facility]) 200 ACTUAT Albuterol 0.09 MG/ACTUAT Mete red Dose Inhaler [ProAir] ProAir HFA 108 (90 Base) MCG/ACT ProAir HFA 108 (90 Base) MCG/ACT 08/07/2019 12:00:00 AM EDT 2.0 {puff_as_needed} active Pro Air HFA 108 (90 Base) MCG/ACT eCW1 ([facility]) BD AutoShield Duo 30G X 5 MM BD AutoShield Duo 30G X 5 MM 12:00:00 AM EDT active BD AutoShield Duo 30G X 5 MM eCW1 ([facility]) BD AutoShield Duo 30G X 5 MM BD AutoShield Duo 30G X 5 MM 12:00:00 AM EDT active BD AutoShield Duo 30G X 5 MM eCW1 ([facility]) BD AutoShield Duo 30G X 5 MM BD AutoShield Duo 30G X 5 MM 12:00:00 AM EDT active BD AutoShield Duo 30G X 5 MM eCW1 ([facility]) BD AutoShield Duo 30G X 5 MM BD AutoShield Duo 30G X 5 MM 12:00:00 AM EDT active BD AutoShield Duo 30G X 5 MM eCW1 ([facility]) 200 ACTUAT Albuterol 0.09 MG/ACTUAT Mete red Dose Inhaler [ProAir] ProAir HFA 108 (90 Base) MCG/ACT ProAir HFA 108 (90 Base) MCG/ACT 08/07/2019 12:00:00 AM EDT 2.0 {puff_as_needed} active Pro Air HFA 108 (90 Base) MCG/ACT eCW1 ([facility]) BD AutoShield Duo 30G X 5 MM BD AutoShield Duo 30G X 5 MM 12:00:00 AM EDT active BD AutoShield Duo 30G X 5 MM eCW1 ([facility]) BD AutoShield Duo 30G X 5 MM BD AutoShield Duo 30G X 5 MM 12:00:00 AM EDT active BD AutoShield Duo 30G X 5 MM eCW1 ([facility]) BD AutoShield Duo 30G X 5 MM BD AutoShield Duo 30G X 5 MM 12:00:00 AM EDT active BD AutoShield Duo 30G X 5 MM eCW1 ([facility]) BD AutoShield Duo 30G X 5 MM BD AutoShield Duo 30G X 5 MM 12:00:00 AM EDT active BD AutoShield Duo 30G X 5 MM eCW1 ([facility]) 200 ACTUAT Albuterol 0.09 MG/ACTUAT Mete red Dose Inhaler [ProAir] ProAir HFA 108 (90 Base) MCG/ACT ProAir HFA 108 (90 Base) MCG/ACT 08/07/2019 12:00:00 AM EDT 2.0 {puff_as_needed} active Pro Air HFA 108 (90 Base) MCG/ACT eCW1 ([facility]) BD AutoShield Duo 30G X 5 MM BD AutoShield Duo 30G X 5 MM 12:00:00 AM EDT active BD AutoShield Duo 30G X 5 MM eCW1 ([facility]) BD AutoShield Duo 30G X 5 MM BD AutoShield Duo 30G X 5 MM 12:00:00 AM EDT active BD AutoShield Duo 30G X 5 MM eCW1 ([facility]) 200 ACTUAT Albuterol 0.09 MG/ACTUAT Mete red Dose Inhaler [ProAir] ProAir HFA 108 (90 Base) MCG/ACT ProAir HFA 108 (90 Base) MCG/ACT 08/07/2019 12:00:00 AM EDT 2.0 {puff_as_needed} active Pro Air HFA 108 (90 Base) MCG/ACT eCW1 ([facility]) Walker - Walker - 07/30/2019 12:00:00 AM EDT activ e Walker - eCW1 ([facility]) Walker - Walker - 07/30/2019 12:00:00 AM EDT activ e Walker - eCW1 ([facility]) Walker - Walker - 07/30/2019 12:00:00 AM EDT activ e Walker - eCW1 ([facility]) Walker - Walker - 07/30/2019 12:00:00 AM EDT activ e Walker - eCW1 ([facility]) Walker - Walker - 07/30/2019 12:00:00 AM EDT activ e Walker - eCW1 ([facility]) Walker - Walker - 07/30/2019 12:00:00 AM EDT activ e Walker - eCW1 ([facility]) Walker - Walker - 07/30/2019 12:00:00 AM EDT activ e Walker - eCW1 ([facility]) Walker - Walker - 07/30/2019 12:00:00 AM EDT activ e Walker - eCW1 ([facility]) Walker - Walker - 07/30/2019 12:00:00 AM EDT activ e Walker - eCW1 ([facility]) Walker - Walker - 07/30/2019 12:00:00 AM EDT activ e Walker - eCW1 ([facility]) Walker - Walker - 07/30/2019 12:00:00 AM EDT activ e Walker - eCW1 ([facility]) Walker - Walker - 07/30/2019 12:00:00 AM EDT activ e Walker - eCW1 ([facility]) Walker - Walker - 07/30/2019 12:00:00 AM EDT active 4 wheeled walker with seat eCW1 ([facility]) Walker - Walker - 07/30/2019 12:00:00 AM EDT activ e Walker - eCW1 ([facility]) Walker - Walker - 07/30/2019 12:00:00 AM EDT activ e Walker - eCW1 ([facility]) Walker - Walker - 07/30/2019 12:00:00 AM EDT activ e Walker - eCW1 ([facility]) Walker - Walker - 07/30/2019 12:00:00 AM EDT activ e Walker - eCW1 ([facility]) Walker - Walker - 07/30/2019 12:00:00 AM EDT activ e Walker - eCW1 ([facility]) Walker - Walker - 07/30/2019 12:00:00 AM EDT activ e Walker - eCW1 ([facility]) Walker - Walker - 07/30/2019 12:00:00 AM EDT activ e Walker - eCW1 ([facility]) Walker - Walker - 07/30/2019 12:00:00 AM EDT activ e Walker - eCW1 ([facility]) Walker - Walker - 07/30/2019 12:00:00 AM EDT activ e Walker - eCW1 ([facility]) Walker - Walker - 07/30/2019 12:00:00 AM EDT activ e Walker - eCW1 ([facility]) Walker - Walker - 07/30/2019 12:00:00 AM EDT activ e Walker - eCW1 ([facility]) Walker - Walker - 07/30/2019 12:00:00 AM EDT activ e Walker - eCW1 ([facility]) Walker - Walker - 07/30/2019 12:00:00 AM EDT activ e Walker - eCW1 ([facility]) Walker - Walker - 07/30/2019 12:00:00 AM EDT activ e Walker - eCW1 ([facility]) Walker - Walker - 07/30/2019 12:00:00 AM EDT activ e Walker - eCW1 ([facility]) Walker - Walker - 07/30/2019 12:00:00 AM EDT activ e Walker - eCW1 ([facility]) Walker - Walker - 07/30/2019 12:00:00 AM EDT activ e Walker - eCW1 ([facility]) Walker - Walker - 07/30/2019 12:00:00 AM EDT activ e Walker - eCW1 ([facility]) Walker - Walker - 07/30/2019 12:00:00 AM EDT activ e Walker - eCW1 ([facility]) Walker - Walker - 07/30/2019 12:00:00 AM EDT activ e Walker - eCW1 ([facility]) Walker - Walker - 07/30/2019 12:00:00 AM EDT activ e Walker - eCW1 ([facility]) Walker - Walker - 07/18/2019 12:00:00 AM EDT active 4 wheeled walker with seat eCW1 ([facility]) May Have - UNK 07/16/2019 12:00:00 AM EDT active May Have - eCW1 ([facility]) May Have - UNK 07/16/2019 12:00:00 AM EDT active May Have - eCW1 ([facility]) May Have - UNK 07/16/2019 12:00:00 AM EDT active May Have - eCW1 ([facility]) pregabalin 150 MG Oral Capsule [Lyrica] Lyrica 150 MG Lyrica 150 MG 07/16/2019 12:00:00 AM EDT active 1 capsul e eCW1 ([facility]) May Have - UNK 07/16/2019 12:00:00 AM EDT active May Have - eCW1 ([facility]) May Have - UNK 07/16/2019 12:00:00 AM EDT active May Have - eCW1 ([facility]) May Have - UNK 07/16/2019 12:00:00 AM EDT active May Have - eCW1 ([facility]) May Have - UNK 07/16/2019 12:00:00 AM EDT active May Have - eCW1 ([facility]) May Have - UNK 07/16/2019 12:00:00 AM EDT active May Have - eCW1 ([facility]) May Have - UNK 07/16/2019 12:00:00 AM EDT active May Have - eCW1 ([facility]) May Have - UNK 07/16/2019 12:00:00 AM EDT active May Have - eCW1 ([facility]) May Have - UNK 07/16/2019 12:00:00 AM EDT active compression stocking 15mmhg circ. at calf 43cm, size 12 shoe women's entire sock included eCW1 ([facility]) May Have - UNK 07/16/2019 12:00:00 AM EDT active May Have - eCW1 ([facility]) May Have - UNK 07/16/2019 12:00:00 AM EDT active May Have - eCW1 ([facility]) May Have - UNK 07/16/2019 12:00:00 AM EDT active May Have - eCW1 ([facility]) May Have - UNK 07/16/2019 12:00:00 AM EDT active May Have - eCW1 ([facility]) May Have - UNK 07/16/2019 12:00:00 AM EDT active May Have - eCW1 ([facility]) May Have - UNK 07/16/2019 12:00:00 AM EDT active May Have - eCW1 ([facility]) May Have - UNK 07/16/2019 12:00:00 AM EDT active May Have - eCW1 ([facility]) May Have - UNK 07/16/2019 12:00:00 AM EDT active May Have - eCW1 ([facility]) pregabalin 150 MG Oral Capsule [Lyrica] Lyrica 150 MG Lyrica 150 MG 07/16/2019 12:00:00 AM EDT 1.0 {capsule} active L yrica 150 MG eCW1 ([facility]) May Have - UNK 07/16/2019 12:00:00 AM EDT active May Have - eCW1 ([facility]) May Have - UNK 07/16/2019 12:00:00 AM EDT active May Have - eCW1 ([facility]) May Have - UNK 07/16/2019 12:00:00 AM EDT active May Have - eCW1 ([facility]) May Have - UNK 07/16/2019 12:00:00 AM EDT active May Have - eCW1 ([facility]) May Have - UNK 07/16/2019 12:00:00 AM EDT active May Have - eCW1 ([facility]) pregabalin 150 MG Oral Capsule [Lyrica] Lyrica 150 MG Lyrica 150 MG 07/16/2019 12:00:00 AM EDT 1.0 {capsule} active L yrica 150 MG eCW1 ([facility]) May Have - UNK 07/16/2019 12:00:00 AM EDT active May Have - eCW1 ([facility]) May Have - UNK 07/16/2019 12:00:00 AM EDT active May Have - eCW1 ([facility]) May Have - UNK 07/16/2019 12:00:00 AM EDT active May Have - eCW1 ([facility]) pregabalin 150 MG Oral Capsule [Lyrica] Lyrica 150 MG Lyrica 150 MG 07/16/2019 12:00:00 AM EDT active 1 capsul e eCW1 ([facility]) May Have - UNK 07/16/2019 12:00:00 AM EDT active May Have - eCW1 ([facility]) May Have - UNK 07/16/2019 12:00:00 AM EDT active May Have - eCW1 ([facility]) May Have - UNK 07/16/2019 12:00:00 AM EDT active May Have - eCW1 ([facility]) May Have - UNK 07/16/2019 12:00:00 AM EDT active May Have - eCW1 ([facility]) May Have - UNK 07/16/2019 12:00:00 AM EDT active May Have - eCW1 ([facility]) pregabalin 150 MG Oral Capsule [Lyrica] Lyrica 150 MG Lyrica 150 MG 07/16/2019 12:00:00 AM EDT 1.0 {capsule} active L yrica 150 MG eCW1 ([facility]) pregabalin 150 MG Oral Capsule [Lyrica] Lyrica 150 MG Lyrica 150 MG 07/16/2019 12:00:00 AM EDT 1.0 {capsule} active L yrica 150 MG eCW1 ([facility]) May Have - UNK 07/16/2019 12:00:00 AM EDT active May Have - eCW1 ([facility]) May Have - UNK 07/16/2019 12:00:00 AM EDT active May Have - eCW1 ([facility]) 8 HR Acetaminophen 650 MG Extended Relea se Oral Tablet [Tylenol] Tylenol 8 Hour Arthritis Pain 650 MG Tylenol 8 Hour Arthritis Pain 650 MG 07/04/2019 12:00: 00 AM EDT active Tylenol 8 Hour Ar thritis Pain 650 MG eCW1 ([facility]) 8 HR Acetaminophen 650 MG Extended Relea se Oral Tablet [Tylenol] Tylenol 8 Hour Arthritis Pain 650 MG Tylenol 8 Hour Arthritis Pain 650 MG 07/04/2019 12:00: 00 AM EDT active Tylenol 8 Hour Ar thritis Pain 650 MG eCW1 ([facility]) 8 HR Acetaminophen 650 MG Extended Relea se Oral Tablet [Tylenol] Tylenol 8 Hour Arthritis Pain 650 MG Tylenol 8 Hour Arthritis Pain 650 MG 07/04/2019 12:00: 00 AM EDT active Tylenol 8 Hour Ar thritis Pain 650 MG eCW1 ([facility]) 8 HR Acetaminophen 650 MG Extended Relea se Oral Tablet [Tylenol] Tylenol 8 Hour Arthritis Pain 650 MG Tylenol 8 Hour Arthritis Pain 650 MG 07/04/2019 12:00: 00 AM EDT active Tylenol 8 Hour Ar thritis Pain 650 MG eCW1 ([facility]) 8 HR Acetaminophen 650 MG Extended Relea se Oral Tablet [Tylenol] Tylenol 8 Hour Arthritis Pain 650 MG Tylenol 8 Hour Arthritis Pain 650 MG 07/04/2019 12:00: 00 AM EDT active Tylenol 8 Hour Ar thritis Pain 650 MG eCW1 ([facility]) 8 HR Acetaminophen 650 MG Extended Relea se Oral Tablet [Tylenol] Tylenol 8 Hour Arthritis Pain 650 MG Tylenol 8 Hour Arthritis Pain 650 MG 07/04/2019 12:00: 00 AM EDT active Tylenol 8 Hour Ar thritis Pain 650 MG eCW1 ([facility]) 8 HR Acetaminophen 650 MG Extended Relea se Oral Tablet [Tylenol] Tylenol 8 Hour Arthritis Pain 650 MG Tylenol 8 Hour Arthritis Pain 650 MG 07/04/2019 12:00: 00 AM EDT active Tylenol 8 Hour Ar thritis Pain 650 MG eCW1 ([facility]) 8 HR Acetaminophen 650 MG Extended Relea se Oral Tablet [Tylenol] Tylenol 8 Hour Arthritis Pain 650 MG Tylenol 8 Hour Arthritis Pain 650 MG 07/04/2019 12:00: 00 AM EDT active Tylenol 8 Hour Ar thritis Pain 650 MG eCW1 ([facility]) 8 HR Acetaminophen 650 MG Extended Relea se Oral Tablet [Tylenol] Tylenol 8 Hour Arthritis Pain 650 MG Tylenol 8 Hour Arthritis Pain 650 MG 07/04/2019 12:00: 00 AM EDT active Tylenol 8 Hour Ar thritis Pain 650 MG eCW1 ([facility]) 8 HR Acetaminophen 650 MG Extended Relea se Oral Tablet [Tylenol] Tylenol 8 Hour Arthritis Pain 650 MG Tylenol 8 Hour Arthritis Pain 650 MG 07/04/2019 12:00: 00 AM EDT active Tylenol 8 Hour Ar thritis Pain 650 MG eCW1 ([facility]) 8 HR Acetaminophen 650 MG Extended Relea se Oral Tablet [Tylenol] Tylenol 8 Hour Arthritis Pain 650 MG Tylenol 8 Hour Arthritis Pain 650 MG 07/04/2019 12:00: 00 AM EDT active Tylenol 8 Hour Ar thritis Pain 650 MG eCW1 ([facility]) 8 HR Acetaminophen 650 MG Extended Relea se Oral Tablet [Tylenol] Tylenol 8 Hour Arthritis Pain 650 MG Tylenol 8 Hour Arthritis Pain 650 MG 07/04/2019 12:00: 00 AM EDT active Tylenol 8 Hour Ar thritis Pain 650 MG eCW1 ([facility]) 8 HR Acetaminophen 650 MG Extended Relea se Oral Tablet [Tylenol] Tylenol 8 Hour Arthritis Pain 650 MG Tylenol 8 Hour Arthritis Pain 650 MG 07/04/2019 12:00: 00 AM EDT active 180 eCW1 ([facility]) 8 HR Acetaminophen 650 MG Extended Relea se Oral Tablet [Tylenol] Tylenol 8 Hour Arthritis Pain 650 MG Tylenol 8 Hour Arthritis Pain 650 MG 07/04/2019 12:00: 00 AM EDT active Tylenol 8 Hour Ar thritis Pain 650 MG eCW1 ([facility]) 8 HR Acetaminophen 650 MG Extended Relea se Oral Tablet [Tylenol] Tylenol 8 Hour Arthritis Pain 650 MG Tylenol 8 Hour Arthritis Pain 650 MG 07/04/2019 12:00: 00 AM EDT active Tylenol 8 Hour Ar thritis Pain 650 MG eCW1 ([facility]) 8 HR Acetaminophen 650 MG Extended Relea se Oral Tablet [Tylenol] Tylenol 8 Hour Arthritis Pain 650 MG Tylenol 8 Hour Arthritis Pain 650 MG 07/04/2019 12:00: 00 AM EDT active Tylenol 8 Hour Ar thritis Pain 650 MG eCW1 ([facility]) 8 HR Acetaminophen 650 MG Extended Relea se Oral Tablet [Tylenol] Tylenol 8 Hour Arthritis Pain 650 MG Tylenol 8 Hour Arthritis Pain 650 MG 07/04/2019 12:00: 00 AM EDT active Tylenol 8 Hour Ar thritis Pain 650 MG eCW1 ([facility]) 8 HR Acetaminophen 650 MG Extended Relea se Oral Tablet [Tylenol] Tylenol 8 Hour Arthritis Pain 650 MG Tylenol 8 Hour Arthritis Pain 650 MG 07/04/2019 12:00: 00 AM EDT active Tylenol 8 Hour Ar thritis Pain 650 MG eCW1 ([facility]) 8 HR Acetaminophen 650 MG Extended Relea se Oral Tablet [Tylenol] Tylenol 8 Hour Arthritis Pain 650 MG Tylenol 8 Hour Arthritis Pain 650 MG 07/04/2019 12:00: 00 AM EDT active Tylenol 8 Hour Ar thritis Pain 650 MG eCW1 ([facility]) 8 HR Acetaminophen 650 MG Extended Relea se Oral Tablet [Tylenol] Tylenol 8 Hour Arthritis Pain 650 MG Tylenol 8 Hour Arthritis Pain 650 MG 07/04/2019 12:00: 00 AM EDT active Tylenol 8 Hour Ar thritis Pain 650 MG eCW1 ([facility]) 8 HR Acetaminophen 650 MG Extended Relea se Oral Tablet [Tylenol] Tylenol 8 Hour Arthritis Pain 650 MG Tylenol 8 Hour Arthritis Pain 650 MG 07/04/2019 12:00: 00 AM EDT active Tylenol 8 Hour Ar thritis Pain 650 MG eCW1 ([facility]) 8 HR Acetaminophen 650 MG Extended Relea se Oral Tablet [Tylenol] Tylenol 8 Hour Arthritis Pain 650 MG Tylenol 8 Hour Arthritis Pain 650 MG 07/04/2019 12:00: 00 AM EDT active Tylenol 8 Hour Ar thritis Pain 650 MG eCW1 ([facility]) 8 HR Acetaminophen 650 MG Extended Relea se Oral Tablet [Tylenol] Tylenol 8 Hour Arthritis Pain 650 MG Tylenol 8 Hour Arthritis Pain 650 MG 07/04/2019 12:00: 00 AM EDT active Tylenol 8 Hour Ar thritis Pain 650 MG eCW1 ([facility]) 8 HR Acetaminophen 650 MG Extended Relea se Oral Tablet [Tylenol] Tylenol 8 Hour Arthritis Pain 650 MG Tylenol 8 Hour Arthritis Pain 650 MG 07/04/2019 12:00: 00 AM EDT active Tylenol 8 Hour Ar thritis Pain 650 MG eCW1 ([facility]) 8 HR Acetaminophen 650 MG Extended Relea se Oral Tablet [Tylenol] Tylenol 8 Hour Arthritis Pain 650 MG Tylenol 8 Hour Arthritis Pain 650 MG 07/04/2019 12:00: 00 AM EDT active Tylenol 8 Hour Ar thritis Pain 650 MG eCW1 ([facility]) 8 HR Acetaminophen 650 MG Extended Relea se Oral Tablet [Tylenol] Tylenol 8 Hour Arthritis Pain 650 MG Tylenol 8 Hour Arthritis Pain 650 MG 07/04/2019 12:00: 00 AM EDT active Tylenol 8 Hour Ar thritis Pain 650 MG eCW1 ([facility]) 8 HR Acetaminophen 650 MG Extended Relea se Oral Tablet [Tylenol] Tylenol 8 Hour Arthritis Pain 650 MG Tylenol 8 Hour Arthritis Pain 650 MG 07/04/2019 12:00: 00 AM EDT active Tylenol 8 Hour Ar thritis Pain 650 MG eCW1 ([facility]) 8 HR Acetaminophen 650 MG Extended Relea se Oral Tablet [Tylenol] Tylenol 8 Hour Arthritis Pain 650 MG Tylenol 8 Hour Arthritis Pain 650 MG 07/04/2019 12:00: 00 AM EDT active Tylenol 8 Hour Ar thritis Pain 650 MG eCW1 ([facility]) 8 HR Acetaminophen 650 MG Extended Relea se Oral Tablet [Tylenol] Tylenol 8 Hour Arthritis Pain 650 MG Tylenol 8 Hour Arthritis Pain 650 MG 07/04/2019 12:00: 00 AM EDT active 180 eCW1 ([facility]) 8 HR Acetaminophen 650 MG Extended Relea se Oral Tablet [Tylenol] Tylenol 8 Hour Arthritis Pain 650 MG Tylenol 8 Hour Arthritis Pain 650 MG 07/04/2019 12:00: 00 AM EDT active Tylenol 8 Hour Ar thritis Pain 650 MG eCW1 ([facility]) 8 HR Acetaminophen 650 MG Extended Relea se Oral Tablet [Tylenol] Tylenol 8 Hour Arthritis Pain 650 MG Tylenol 8 Hour Arthritis Pain 650 MG 07/04/2019 12:00: 00 AM EDT active Tylenol 8 Hour Ar thritis Pain 650 MG eCW1 ([facility]) 8 HR Acetaminophen 650 MG Extended Relea se Oral Tablet [Tylenol] Tylenol 8 Hour Arthritis Pain 650 MG Tylenol 8 Hour Arthritis Pain 650 MG 07/04/2019 12:00: 00 AM EDT active Tylenol 8 Hour Ar thritis Pain 650 MG eCW1 ([facility]) 8 HR Acetaminophen 650 MG Extended Relea se Oral Tablet [Tylenol] Tylenol 8 Hour Arthritis Pain 650 MG Tylenol 8 Hour Arthritis Pain 650 MG 07/04/2019 12:00: 00 AM EDT active 1 tab eCW1 ([facility]) 8 HR Acetaminophen 650 MG Extended Relea se Oral Tablet [Tylenol] Tylenol 8 Hour Arthritis Pain 650 MG Tylenol 8 Hour Arthritis Pain 650 MG 07/04/2019 12:00: 00 AM EDT active Tylenol 8 Hour Ar thritis Pain 650 MG eCW1 ([facility]) 8 HR Acetaminophen 650 MG Extended Relea se Oral Tablet [Tylenol] Tylenol 8 Hour Arthritis Pain 650 MG Tylenol 8 Hour Arthritis Pain 650 MG 07/04/2019 12:00: 00 AM EDT active Tylenol 8 Hour Ar thritis Pain 650 MG eCW1 ([facility]) 8 HR Acetaminophen 650 MG Extended Relea se Oral Tablet [Tylenol] Tylenol 8 Hour Arthritis Pain 650 MG Tylenol 8 Hour Arthritis Pain 650 MG 07/04/2019 12:00: 00 AM EDT active Tylenol 8 Hour Ar thritis Pain 650 MG eCW1 ([facility]) May Have - UNK 06/11/2019 12:00:00 AM EDT active rolator eCW1 ([facility]) Acetaminophen 325 MG / Hydrocodone Bitartrate 5 MG Ora l Tablet Hydrocodone Bitartrate/Acetaminophen 04/23/2019 12:00:00 AM EST ORAL active MEDENT ([facility] ) Magnesium Hydroxide 80 MG/ML Oral Suspension Milk Of Alfonso a 03/22/2019 12:00:00 AM EST ORAL completed MEDENT ([facility], ) POLYETHYLENE GLYCOL 3350 105 MG/ML / Pot assium Chloride 0.64840 MEQ/ML / Sodium Bicarbonate 0.017 MEQ/ML / Sodium Chloride 0.0479 MEQ/ML Oral Solution [TriLyte] Trilyte 03/22/2019 12:00:00 AM EST completed MEDENT ([facility], ) pregabalin 75 MG Oral Capsule Pregabalin 02/13/2019 12:00:00 AM EST ORAL completed MEDENT ([facility], ) Metoprolol Tartrate 50 MG Oral Tablet me toprolol tartrate (LOPRESSOR) 50 MG tablet metoprolol tartrate (LOPRESSOR) 50 MG tablet 08/22/2016 12:0 0:00 AM EDT aborted HTN (hypertension), benign take 1 tablet by mouth once daily [facility] HTN (hypertension), benign Simvastatin 40 MG Oral Tablet simvastatin (ZOCOR) 40 M G tablet simvastatin (ZOCOR) 40 MG tablet 08/22/2016 12:00:00 AM EDT aborted Hyperlipidemia, unspecified hyperlipidemia type take 1 tablet by mouth at bedtime [facility] Hyperlipidemia, unspecified hyperlipidem ia type 60 ACTUAT Fluticasone propionate 0.5 MG/ ACTUAT / salmeterol 0.05 MG/ACTUAT Dry Powder Inhaler [Advair] ADVAIR DISKUS 500-50 MCG/DOSE DISKUS ADVAIR DISKUS 500- 50 MCG/DOSE DISKUS 08/22/2016 12:00:00 AM EDT aborted Uncomplicated asthma, unspecified asthma severity inhale 1 puff by mouth t wice a day [facility] Uncomplicated asthma, unspecified asthma severity insulin human, isophane 70 UNT/ML / Regu lar Insulin, Human 30 UNT/ML Injectable Suspension insulin NPH-insulin regular (HUMULIN) (70-30) 100 UNIT/ML injection insulin NPH-insulin regular (HUMULIN) (70-30) 100 UNIT/ML injection 06/14/2016 12:00:00 AM EDT 38 U Subcutaneous aborted T ype 2 diabetes mellitus without complication, 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 Inject 38 Units under the skin 2 (two) times a day before meals [facility] Type 2 diabetes mellitus without complic ation, unspecified group home insulin use status Lidocaine 0.05 MG/MG Topical Ointment lidocaine (XYLOC HERB) 5 % ointment lidocaine (XYLOCAINE) 5 % ointment 05/27/2016 12:00:00 AM EDT aborted APPLY SMALL AMOUNT OF OINTME NT TO GAUZE PAD AND APPLY PAD TO AFFECTED AREA (12 HRS ON 12 HRS OFF) [facility] terbinafine 250 MG Oral Tablet terbinafine (LAMISIL) 2 50 MG tablet terbinafine (LAMISIL) 250 MG tablet 05/26/2016 12:00:00 AM EDT aborted take 1 tablet by mouth once daily [facility] Trazodone Hydrochloride 50 MG Oral Tablet traZODone (D ESYREL) 50 MG tablet traZODone (DESYREL) 50 MG tablet 03/21/2016 12:00:00 AM EST aborted take 1 and 1/2 tablets by mouth at bedtime [facility] Lisinopril 40 MG Oral Tablet lisinopril (PRINIVIL,ZEST RIL) 40 MG tablet lisinopril (PRINIVIL,ZESTRIL) 40 MG tablet 02/12/2016 12:00:00 AM EST 40 mg Oral aborted HTN (hypertension), benign Take 1 tablet (40 mg total) by mouth daily [facility] HTN (hypertension), benign Metformin hydrochloride 1000 MG Oral Tab let metFORMIN (GLUCOPHAGE) 1000 MG tablet metFORMIN (GLUCOPHAGE) 1000 MG tablet 02/12/2016 12:00:00 AM EST 1000 mg Oral aborted Type II or unsp ecified type diabetes mellitus without mention of complication, not stated as uncontrolled Ta ke 1 tablet (1,000 mg total) by mouth 2 (two) times a day with meals [facility] Type II or unspecified type diabetes francie litus without mention of complication, not stated as uncontrolled INSULIN SYRINGE .5CC/28G 28G X 1/2" 0.5 ML [facility] [id number] 12/17/2015 12:00:00 AM EDT 18 U Does not apply aborted Type 2 diabetes mellitus without complication 18 Units by Does not apply route 2 (two) times a day [facility] Type 2 diabetes mellitus without complic ation Ergocalciferol 22720 UNT Oral Capsule vi tamin D, Ergocalciferol, 72317 UNITS CAPS vitamin D, Ergocalciferol, 24185 UNITS CAPS 11/18/2015 12:00:00 AM EDT 1 {capsule} Oral aborted Vitamin D deficiency Take 1 capsule by mouth every 30 (thirty) days [facility] Vitamin D deficiency clopidogrel 75 MG Oral Tablet clopidogrel (PLAVIX) 75 MG tablet clopidogrel (PLAVIX) 75 MG tablet 75 mg Oral aborted Take 75 mg by mouth daily Prior to procedure [facility] 24 HR Isosorbide Mononitrate 30 MG Exten ded Release Oral Tablet isosorbide mononitrate (IMDUR) 30 MG 24 hr tablet isosorbide mononitrate (IMDUR) 30 MG 24 hr tablet 30 mg Oral aborted Take 30 mg by mouth daily [facility] Insurance Providers Payer name Policy type / Coverage type Policy ID Covered green party ID Covered green party's relationship to maxwell Policy Maxwell Plan Information HUMANA GOLD [id number] SP [id number] EMEDNY [id number] SP [id number] HUMANA GOLD [id number] SP [id number] EMEDNY [id number] SP [id number] MEDICARE COMPLETE [id number] SP [id number] MEDICARE COMPLETE [id number] SP [id number] MEDICARE [id number] SP [id number] MEDICARE COMPLETE [id number] SP [id number] MEDICARE COMPLETE [id number] SP [id number] MEDICARE COMPLETE [id number] SP [id number] MEDICAID [id number] MEDICARE COMPLETE-[facility] O [id number] S [id number] MEDICARE [id number] SP [id number] INSURANCE COVID-19 [id number] MEDICAID [id number] MEDICARE [id number] MEDICARE [id number] [place] [id number] MEDICAID [id number] [place] [id number] INSURANCE COVID-19 COVID [place] C OVID MEDICAID [id number] SP [id number] [employer] [id number] SP [id number] MEDICARE [id number] SP [id number] MEDICARE COMPLETE [id number] SP [id number] MEDICARE C [id number] S [id number] MEDICARE [id number] SP [id number] A [employer] P [id number] S [id number] Medicaid S [id number] S [id number] MEDICARE COMPLETE [id number] SP [id number] [employer] P [id number] S [id number] MEDICARE [id number] SP [id number] A [facility] Medicare Solutions F [id number] SELF [id number] Medicaid [facility] S D [id number] SELF [id number] MEDICAID [id number] SP [id number] MEDICARE COMPLETE [id number] SP [id number] United[employer]care [employer] P [id number] S [id number] Medicare Wrap S [id number] S [id number] Medicare Wrap S [id number] S [id number] Medicaid Medigap Part B [id number] Self [id number] [facility]-Medicare Solutions Commercial [id number] Self [id number] Medicaid Medigap Part B [id number] Self [id number] [facility]-Medicare Solutions Commercial [id number] Self [id number] Medicare C [id number] SELF [id number] Medicaid [facility] S D [id number] SELF [id number] DME Jurisdiction A NHIC C [id number] SELF [id number] United [facility] Medicare F [id number] SELF [id number] [facility] Medicare Solutions F [id number] SELF [id number] [facility] Medicare Solutions F [id number] SELF [id number] Medicaid [facility] S D [id number] SELF [id number] [facility] Medicare [place] F [id number] SELF [id number] Medicaid Medicaid [id number] Self [id number] [employer] Commercial [id number] Self [id number] [facility] Secure Horizons P [id number] S [id number] Medicare Wrap O [id number] S [id number] Medicaid Medicaid [id number] Self [id number] [employer] Commercial [id number] Self [id number] ANSI-Medicare Part B [id number] ANSI-Medicaid [id number] Medicaid Medicaid [id number] Self [id number] [employer] [id number] Self [id number] ANSI-Medicare Part B [id number] ANSI-Medicaid [id number] [employer] [place] MEDICARE O/P [id number] 18 [id number] MEDICARE PART B-O/P [id number] 18 [id number] [place] Primary [id number] Self [id number] [facility] B [id number] Self [id number] [facility] [id number] Self [id number] [employer] Medicare Commercial [id number] Self [id number] [place] Medicare Primary [id number] Self [id number] Medicaid Medicaid [id number] Self [id number] [place] Commercial [id number] Self [id number] [place] Medicare Primary [id number] Self [id number] Medicaid [place] Medigap Part B [id number] Self [id number] Medicaid Medicaid [id number] Self [id number] [employer] Commercial [id number] Self [id number] Medicare [place]/[facility] Medicare Primary [id number] Self [id number] [place] Part [place] [id number] Self [id number] MEDICARE COMPLETE [id number] SP [id number] MEDICAID [id number] [place] [id number] [place] Part B [id number] Self [id number] [facility] Health Maintenance Organization (HMO) [id number] Self [id number] [facility] MEDIC[facility] [id number] Ju[place] [id number] MEDICAID [id number] Juana [id number] [facility] [id number] [place] [id number] MEDICARE [id number] [place] [id number] A MEDICAID [id number] [place] [id number] MEDICARE [id number] [place] [id number] [place] Part B Self [place] ([facility] Commercial Self MEDICARE COMPLETE [id number] SP [id number] MEDICARE UNITED HEALTHCARE [id number] SELF [id number] MEDICAID [id number] SELF [id number] MEDICARE [id number] SELF [id number] A SELF PAY UNAVAILABLE SELF UNAVAILA BLE [employer] [id number] SP [id number] Problems, Conditions, and Diagnoses Code Display Name Description Problem Type Effective Dates Data Source(s) K44.9 [id number] Hiatal hernia Problem 02/21/2020 12:00:00 AM EST eCW1 ([facility]) J44.9 89455155 Chronic obstructive pulmonary di sease, unspecified COPD type Problem 02/21/2020 12:00:00 AM EST eCW1 ([facility]) R94.39 Abnormal stress test Abnormal stress test [id number] 08/27/2019 12:00:00 AM EDT [facility] I10 Essential hypertension, benign Essential hypertension, benign 13787612 08/15/2019 12:00:00 AM EDT [facility] E11.69 Type 2 diabetes mellitus with other spec ified complication Type 2 diabetes mellitus with other specified complication [id number] 12:00:00 AM EDT [facility] N18.3 Chronic kidney disease, stage III (moder ate) Chronic kidney disease, stage III (moderate) 95580045 08/15/2019 12:00:00 AM EDT [facility] R07.9 Chest pain Chest pain 29992177 08/15/2019 12:00:00 AM ED T [facility] R94.31 Nonspecific abnormal electrocardiogram ( ECG) (EKG) Nonspecific abnormal electrocardiogram (ECG) (EKG) 89095697 08/15/2019 12:00:00 AM EDT [facility] Z01.810 Pre-operative cardiovascular examination Pre-operative cardiovascular examination 32126240 08/15/2019 12:00:00 AM EDT [facility] K76.0 966253118 Fatty liver Problem 06/13/2019 12:00:00 AM E DT eCW1 ([facility]) D12.2 950820504 Adenomatous polyp of ascending colon Prob anabel 06/13/2019 12:00:00 AM EDT eCW1 ([facility]) Z12.39 158409457 Breast cancer screening Problem 06/13/2019 1 2:00:00 AM EDT eCW1 ([facility]) M51.36 99230122 DDD (degenerative disc disease), lumbar P roblem 06/13/2019 12:00:00 AM EDT eCW1 ([facility]) R55 998328738 Pre-syncope Problem 06/13/2019 12:00:00 AM E DT eCW1 ([facility]) Z12.4 783544594 Cervical cancer screening Problem 06/13/2019 12:00:00 AM EDT eCW1 ([facility]) K63.5 748033927 Hyperplastic colonic polyp, unspecified p art of colon Problem 06/13/2019 12:00:00 AM EDT eCW1 ([facility]) D12.2 563350954 Adenomatous polyp of ascending colon Prob anabel 06/13/2019 12:00:00 AM EDT eCW1 ([facility]) K63.5 410564583 Hyperplastic colonic polyp, unspecified p art of colon Problem 06/13/2019 12:00:00 AM EDT eCW1 ([facility]) Z12.4 411382821 Cervical cancer screening Problem 06/13/2019 12:00:00 AM EDT eCW1 ([facility]) Z12.39 537829243 Breast cancer screening Problem 06/13/2019 1 2:00:00 AM EDT eCW1 ([facility]) R55 131591730 Pre-syncope Problem 06/13/2019 12:00:00 AM E DT eCW1 ([facility]) K76.0 162707572 Fatty liver Problem 06/13/2019 12:00:00 AM E DT eCW1 ([facility]) M51.36 34703377 DDD (degenerative disc disease), lumbar P roblem 06/13/2019 12:00:00 AM EDT eCW1 ([facility]) F32.0 Mild major depression, single episode Cu rrent mild episode of major depressive disorder, unspecified whether recurrent Problem 03/2019 12:00:00 AM EDT eCW1 ([facility]) F32.0 Mild major depression, single episode Cu rrent mild episode of major depressive disorder, unspecified whether recurrent Problem 03/2019 12:00:00 AM EDT eCW1 ([facility]) Z76.89 Persons encountering health services in other specified circumstances Assisted living facility patient 06/11/2019 07:54:[address] [facility] Z86.711 794700166 History of pulmonary embolus (PE) Problem 06/11/2019 12:00:00 AM EDT eCW1 ([facility]) E11.22 06084762 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 Problem 06/11/2019 12:00:00 AM EDT eCW1 ([facility]) E78.2 469359185 Mixed hyperlipidemia Problem 06/11/2019 12:0 0:00 AM EDT eCW1 ([facility]) Z86.718 276275181 H/O deep venous thrombosis Problem 0 12:00:00 AM EDT eCW1 ([facility]) J30.1 03345943 Seasonal allergic rhinitis due to pollen Problem 06/11/2019 12:00:00 AM EDT eCW1 ([facility]) N18.3 970886874 Chronic kidney disease, stage 3 (moderate ) Problem 06/11/2019 12:00:00 AM EDT eCW1 ([facility]) Z79.4 640584029 USP (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 Proble m 06/11/2019 12:00:00 AM EDT eCW1 ([facility]) Z86.711 432759492 Personal history of pulmonary embolism Pr oblem 06/11/2019 12:00:00 AM EDT eCW1 ([facility]) I10 05009810 Essential hypertension Problem 06/11/2019 12 :00:00 AM EDT eCW1 ([facility]) K21.9 349930943 Gastroesophageal ref lux disease, esophagitis presence not specified Problem 06/11/2019 12:00:00 AM EDT eCW1 ([facility]) K59.00 62962566 Constipation, unspecified constipation ty pe Problem 06/11/2019 12:00:00 AM EDT eCW1 ([facility]) E11.42 656267443 Diabetic polyneuropa thy associated with type 2 diabetes mellitus Problem 06/11/2019 12:00:00 AM EDT eCW1 ([facility]) M17.0 025720222 Primary osteoarthritis of both knees Prob anabel 06/11/2019 12:00:00 AM EDT eCW1 ([facility]) E55.9 79806165 Vitamin D deficiency Problem 06/11/2019 12:0 0:00 AM EDT eCW1 ([facility]) N18.3 218499657 Chronic kidney disease, stage 3 (moderate ) Problem 06/11/2019 12:00:00 AM EDT eCW1 ([facility]) Z79.4 616542740 USP (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 Proble m 06/11/2019 12:00:00 AM EDT eCW1 ([facility]) E55.9 14853178 Vitamin D deficiency Problem 06/11/2019 12:0 0:00 AM EDT eCW1 ([facility]) E11.22 30913487 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 Problem 06/11/2019 12:00:00 AM EDT eCW1 ([facility]) E78.2 237174420 Mixed hyperlipidemia Problem 06/11/2019 12:0 0:00 AM EDT eCW1 ([facility]) I10 93514310 Essential hypertension Problem 06/11/2019 12 :00:00 AM EDT eCW1 ([facility]) K59.00 30130485 Constipation, unspecified constipation ty pe Problem 06/11/2019 12:00:00 AM EDT eCW1 ([facility]) Z86.711 823323543 History of pulmonary embolus (PE) Problem 06/11/2019 12:00:00 AM EDT eCW1 ([facility]) E11.42 655138820 Diabetic polyneuropa thy associated with type 2 diabetes mellitus Problem 06/11/2019 12:00:00 AM EDT eCW1 ([facility]) M17.0 198513266 Primary osteoarthritis of both knees Prob anabel 06/11/2019 12:00:00 AM EDT eCW1 ([facility]) J30.1 62882719 Seasonal allergic rhinitis due to pollen Problem 06/11/2019 12:00:00 AM EDT eCW1 ([facility]) Z86.718 989146358 H/O deep venous thrombosis Problem 0 12:00:00 AM EDT eCW1 ([facility]) K21.9 982200268 Gastroesophageal ref lux disease, esophagitis presence not specified Problem 06/11/2019 12:00:00 AM EDT eCW1 ([facility]) 719.45 Pain in right hip Pain in right hip 06/05/2019 02:22:[address] [facility] 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 06/05/2019 02:22:[address] [facility] 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 05/31/2019 04:13:[address] [facility] R04.0 Epistaxis Bleeding from nose 05/27/2019 03:07: [address] [facility] 338.29 Chronic pain Chronic pain 05/24/2019 02:56:[address] [facility] 789.09 Suprapubic pain Suprapubic pain 04/18/2019 02:2 5:[address] [facility] 115282630117589 Carpal tunnel syndrome of right wrist Ca rpal tunnel syndrome of right wrist 04/10/2019 08:19:36 AM [facility] 787.91 Acute diarrhea Acute diarrhea 04/10/2019 08:19: 36 AM [facility] 878234709 Pure hypercholesterolemia Pure hypercholesterolemia Pr oblem 03/19/2019 12:00:00 AM EST MED[facility] ([facility]) 133306877 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 Problem 2018 12:00:00 AM EST MEDENT ([facility]) 28844442 Abnormal gait Abnormal gait Problem 02/13/2019 12:00:00 AM EST MEDENT ([facility]) 285269589 Lesion of ulnar nerve Lesion of ulnar nerve Problem 02/13/2019 12:00:00 AM EST MEDENT ([facility]) 09623128688976332 Bilateral carpal tunnel syndrome Bilater al carpal tunnel syndrome Problem 02/13/2019 12:00:00 AM EST MEDENT ([facility]) I10 Essential (primary) hypertension Essential (primary) h ypertension Diagnosis 08/27/2019 06:06:00 AM EDT [facility] E11.69 Type 2 diabetes mellitus with other spec ified complication Type 2 diabetes mellitus with other spec Diagnosis 08/27/2019 06:06:00 AM EDT [facility] N18.3 Chronic kidney disease, stage 3 (moderat e) Chronic kidney disease, stage 3 (moderat Diagnosis 08/27/2019 06:06:00 AM EDT [facility] R07.9 Chest pain, unspecified Chest pain, unspecified Diagno sis 08/27/2019 06:06:00 AM EDT [facility] R94.31 Abnormal electrocardiogram [ECG] [EKG] A bnormal electrocardiogram (ECG) (EKG) Diagnosis 08/27/2019 06:06:00 AM EDT [facility] Z01.810 Encounter for preprocedural cardiovascul ar examination Encounter for preprocedural cardiovascul Diagnosis 08/27/2019 06:06:00 AM EDT [facility] Surgeries/Procedures Procedure Description Date Indications Data Source(s) RADEX HAND MINIMUM 3 VIEWS 04/08/2020 12:00:00 AM EST MEDENT ([facility]) DEBRIDEMENT NAIL ANY METHOD > 02/13/2020 12:00:00 AM EST MED[facility] ([facility] Endoscopy Upper GI Complex Diagnostic 01/21/2020 12:00 :00 AM EST MEDENT ([facility], ) Colonoscopy,W/Directed Submucosal Injections, Any Substance 01/21/2020 12:00:00 AM EST [facility] Colonoscopy W/ Poly 01/21/2020 12:00:00 AM EST MEDENT ([facility], ) DEBRIDEMENT NAIL ANY METHOD 12/05/2019 12:00:00 AM EDT [facility] ([facility] RADIOLOGIC EXAM KNEE COMPLETE 4/MORE VIEWS 10/16/2019 12:00:00 AM EDT MED[facility] ([facility]) ARTHROCENTESIS ASPIR&/INJECTION MAJOR JT/BURSA 020 12:00:00 AM EDT MED[facility] ([facility]) DEBRIDEMENT NAIL ANY METHOD 09/26/2019 12:00:00 AM EDT MED[facility] ([facility] CARDIAC CATHETERIZATION CARDIAC CATHETERIZATION Routine 08/27/2019 8:24 AM EDT Pre-operative cardiovascular examination Nonspecific abnormal electrocardiogram (ECG) (EKG) Chest pain, unspecified type Chronic kidney disease, stage III (moderate) Type 2 diabetes mellitus with other specified complication, unspecified whether group home insulin use Essential hypertension, benign 08/27/2019 12:24:14 PM EDT Es sential hypertension, benignType 2 diabetes mellitus with other specified complication, unspecified whether group home insulin useChronic kidney disease, stage III (moderate)Chest pain, unspecified typeNonspecific abnormal electrocardiogram (ECG) (EKG)Pre-operative cardiovascular examination [facility] Essential hypertension, benign Type 2 diabetes mellitus with other spec ified complication, unspecified whether group home insulin use Chronic kidney disease, stage III (moder ate) Chest pain, unspecified type Nonspecific abnormal electrocardiogram ( ECG) (EKG) Pre-operative cardiovascular examination GLUC BLD GLUC MNTR DEV CLEARED FDA SPEC HOME USE POCT GLUCOSE Routine 08/27/2019 7:25 AM EDT 08/27/2019 11:25:00 AM EDT [facility] ECG ROUTINE ECG W/LEAST 12 LDS TRCG ONLY W/O I&R ECG 12-LEAD Routine 08/27/2019 6:31 AM EDT 08/27/2019 10:31:44 AM EDT [facility] ECG ROUTINE ECG W/LEAST 12 LDS W/I&R 08/13/2019 12:00: 00 AM EDT MEDENT ([facility]) Arterial Pressure Waveform Analysis For Assessment Of Centra l Art 08/13/2019 12:00:00 AM EDT MEDENT ([facility]) Bronchospasm Evaluation 07/25/2019 12:00:00 AM EDT MEDENT ([facility], ) Maximum Breathing Capacity, Maximal Voluntary Ventilation 07/25/2019 12:00:00 AM EDT MEDENT ([facility], ) Plethysmography Determination Lung Volumes & Per Airway Resi st 07/25/2019 12:00:00 AM EDT MEDENT ([facility], ) DIFFUSING CAPACITY 07/25/2019 12:00:00 AM EDT MEDENT ([facility], ) Office Visit, Est Pt., Level 2 FC 07/16/2019 12:00:00 AM EDT eCW1 ([facility]) Office Visit, Est Pt., Level 4 PC 07/16/2019 12:00:00 AM EDT eCW1 ([facility]) Office Visit, New Pt., Level 4 PC 06/11/2019 12:00:00 AM EDT eCW1 ([facility]) Office Visit, New Pt., Level 2 FC 06/11/2019 12:00:00 AM EDT eCW1 ([facility]) DEBRIDEMENT NAIL ANY METHOD 05/02/2019 12:00:00 AM EST MED[facility] ([facility] RADEX WRIST COMPLETE MINIMUM 3 VIEWS 03/19/2019 12:00: 00 AM EST MEDENT ([facility]) DEBRIDEMENT NAIL ANY METHOD 02/21/2019 12:00:00 AM EST [facility] ([facility] Results ID Date Data Source [id number] 04/06/2020 08:00:00 AM EST [facility] Name Value Range Interpretation Code Description Data Adilene rce(s) Supporting Document(s) SARS coronavirus 2 RNA Not Detected [facility] [place] This lab was ordered by [facility] and reported by [facility]. ID Date Data Source [id number] 03/30/2020 11:00:00 AM EST [facility] Name Value Range Interpretation Code Description Data Adilene rce(s) Supporting Document(s) SARS coronavirus 2 RNA Not Detected [facility] [place] This lab was ordered by [facility] and reported by [facility]. ID Date Data Source [id number] 03/23/2020 06:00:00 AM EST [facility] Name Value Range Interpretation Code Description Data Adilene rce(s) Supporting Document(s) SARS coronavirus 2 RNA Not Detected [facility] [place] This lab was ordered by [facility] and reported by [facility]. ID Date Data Source [id number] 03/16/2020 09:00:00 AM EST [facility] Name Value Range Interpretation Code Description Data Adilene rce(s) Supporting Document(s) SARS coronavirus 2 RNA Not Detected [facility] [place] This lab was ordered by [facility] and reported by [facility]. ID Date Data Source [id number] 03/09/2020 07:35:00 AM EST [facility] Name Value Range Interpretation Code Description Data Adilene rce(s) Supporting Document(s) SARS coronavirus 2 RNA [facility] This lab was ordered by [facility] and reported by [facility]. ID Date Data Source [id number] 03/02/2020 09:00:00 AM EST [facility] Name Value Range Interpretation Code Description Data Adilene rce(s) Supporting Document(s) SARS coronavirus 2 RNA [facility] This lab was ordered by [facility] and reported by [facility]. ID Date Data Source [id number] 02/26/2020 11:55:00 AM EST [facility] Name Value Range Interpretation Code Description Data Adielne rce(s) Supporting Document(s) SARS coronavirus 2 RNA [facility] This lab was ordered by [facility] and reported by [facility]. ID Date Data Source [id number] 02/26/2020 12:00:00 AM EST [facility] Name Value Range Interpretation Code Description Data Adilene rce(s) Supporting Document(s) SARS-CoV2 Rapid Antigen [facility] This lab was ordered by [facility] and reported by [facility]. ID Date Data Source [id number] 02/23/2020 08:55:00 AM EST MEDENT ([facility] Name Value Range Interpretation Code Description Data Adilene rce(s) Supporting Document(s) White Blood Count 6.9 4.0-10.0 MED[facility] ([facility]) Red Blood Count 4.12 4.00-5.40 [facility] ([facility]) Platelets 245 150-450 [facility] Hemoglobin 11.3 [facility] ([facility]) Hematocrit 35.1 [facility] ([facility]) ID Date Data Source [id number] 02/23/2020 05:12:00 AM EST [facility] Name Value Range Interpretation Code Description Data Adilene rce(s) Supporting Document(s) SARS coronavirus 2 RNA [Presence] in Res piratory specimen by SUZANNA with probe detection [facility] This lab was ordered by [facility] a nd reported by [facility]. ID Date Data Source [id number] 02/21/2020 02:48:00 PM EST [facility] Name Value Range Interpretation Code Description Data Adilene rce(s) Supporting Document(s) SARS coronavirus 2 RNA [facility] This lab was ordered by [facility] and reported by [facility]. ID Date Data Source [id number] 02/11/2020 09:10:00 AM EST [facility] Name Value Range Interpretation Code Description Data Adilene rce(s) Supporting Document(s) SARS coronavirus 2 RNA [facility] This lab was ordered by [facility] and reported by [facility]. ID Date Data Source [id number] 02/11/2020 12:00:00 AM EST [facility] Name Value Range Interpretation Code Description Data Adilene rce(s) Supporting Document(s) SARS-CoV2 Rapid PCR [facility] This lab was ordered by [facility] and reported by [facility]. ID Date Data Source [id number] 02/07/2020 12:00:00 AM EST [facility] Name Value Range Interpretation Code Description Data Adilene rce(s) Supporting Document(s) SARS-CoV2 Rapid Antigen [facility] This lab was ordered by [facility] and reported by [facility]. ID Date Data Source [id number] 01/21/2020 02:05:00 PM EST MEDENT ([facility], ) Name Value Range Interpretation Code Description Data Adilene rce(s) Supporting Document(s) Surgical pathology study Laboratory test result MEDENT ([facility], ) FINAL DIAGNOSIS Colon, hepatic flexure polypoid mass, cold snare polypectomy: Fragments of tubular adenoma. 01/23/2020 - 1153 CLINICAL DIAGNOSIS Melena 01/22/2020 - 1249 GROSS DIAGNOSIS Received in formalin labeled "snare polyp mass @ hepatic flexure" are multiple fragments of frias tissue and fecal material measuring 1.5 x 1.0 x 0.3 cm. in aggregate. All in one. -SV 01/22/2020 - 1249 Signed MARCO ANTONIO PANDEY MD 01/23/2020 1536 ID Date Data Source [id number] 01/21/2020 12:55:00 PM EST MEDENT ([facility], ) Name Value Range Interpretation Code Description Data Adilene rce(s) Supporting Document(s) Glucose [Mass/volume] in Capillary blood by Glucometer 182 mg/dL 80-115 Above high normal MEDENT ([facility], ) not to draw ID Date Data Source [id number] 01/17/2020 02:38:11 AM EST eCW1 ([facility]) Name Value Range Interpretation Code Description Data Adilene rce(s) Supporting Document(s) Hemoglobin A1c/Hemoglobin.total in Blood 8.8 HEMOGLOBIN A1c eCW1 ([facility]) ID Date Data Source [id number] 01/17/2020 02:38:09 AM EST eCW1 ([facility]) Name Value Range Interpretation Code Description Data Adilene rce(s) Supporting Document(s) 23 NT-PRO BNP eCW1 ([facility]) ID Date Data Source CBC with Differential 01/17/2020 02:38:03 AM EST eCW1 ([facility]) Name Value Range Interpretation Code Description Data Adilene rce(s) Supporting Document(s) 5.6 WHITE BLOOD COUNT eCW1 ([facility]) 36.0 HEMATOCRIT eCW1 ([facility]) 4.23 RED BLOOD COUNT eCW1 ([facility]) 11.9 HEMOGLOBIN eCW1 ([facility]) 28.1 MEAN CORPUSCULAR HEMOGLOBIN eC W1 ([facility]) 12.8 RED CELL DISTRIBUTION WIDTH eC W1 ([facility]) 33.1 MEAN CORPUSCULAR HGB CONC eCW1 ([facility]) 85.1 MEAN CORPUSCULAR VOLUME eCW1 ( [facility]) 10.5 MONO % eCW1 ([facility]) 38.9 LYMPH % eCW1 ([facility]) 46.8 NEUTROPHILS % eCW1 ([facility]) 241 PLATELET COUNT, AUTOMATED eCW1 ([facility]) 2.6 NEUTROPHILS # eCW1 ([facility]) 0.9 BASO % eCW1 ([facility]) 2.5 EOS % eCW1 ([facility]) 0.1 BASO # eCW1 ([facility]) 0.1 EOS # eCW1 ([facility]) 0.6 MONO # eCW1 ([facility]) 2.2 LYMPH # eCW1 ([facility]) ID Date Data Source PTH INTACT 01/17/2020 02:38:00 AM EST eCW1 ([facility]) Name Value Range Interpretation Code Description Data Adilene rce(s) Supporting Document(s) 60.5 PTH INTACT eCW1 ([facility]) ID Date Data Source Comprehensive Metabolic Profile (CMP) 01/17/2020 02:37:42 AM EST eCW1 ([facility]) Name Value Range Interpretation Code Description Data Adilene rce(s) Supporting Document(s) 227 GLUCOSE, FASTING eCW1 ([facility]) 48.5 GLOMERULAR FILTRATION RATE eCW 1 ([facility]) 19 BLOOD UREA NITROGEN eCW1 ([facility]) 1.18 CREATININE FOR GFR eCW1 ([facility]) 103 CHLORIDE LEVEL eCW1 ([facility]) 27 CARBON DIOXIDE LEVEL eCW1 ([facility]) 138 SODIUM LEVEL eCW1 ([facility]) 3.9 POTASSIUM SERUM eCW1 ([facility]) 9.0 CALCIUM LEVEL eCW1 ([facility]) 27 AST/SGOT eCW1 ([facility]) 51 ALT/SGPT eCW1 ([facility]) 116 ALKALINE PHOSPHATASE eCW1 ([facility]) 6.8 TOTAL PROTEIN eCW1 ([facility]) 3.6 ALBUMIN eCW1 ([facility]) 1.1 ALBUMIN/GLOBULIN RATIO eCW1 ([facility]) 0.3 BILIRUBIN,TOTAL eCW1 ([facility]) ID Date Data Source [id number] 01/16/2020 12:00:00 PM EST [facility] Name Value Range Interpretation Code Description Data Adilene rce(s) Supporting Document(s) SARS coronavirus 2 RNA [facility] This lab was ordered by [facility] and reported by [facility]. ID Date Data Source [id number] 08/29/2019 12:00:00 AM EDT [facility] Name Value Range Interpretation Code Description Data Adilene rce(s) Supporting Document(s) 2019-nCoV N XXX Ql SUZANNA N2 [place] This lab was ordered by [facility] and reported by [facility]. ID Date Data Source [id number] 08/27/2019 08:50:27 AM EDT [facility] Name Value Range Interpretation Code Description Data Adilene rce(s) Supporting Document(s) EKG [facility] KDVHVd3gHrDXPrOht6PvRlEfASVnFC8suhb8S7B2vUEvN8GmmCAdn6saH4AzN3XcVBYkRYRWDS3OrLGp jb2 [file] BSCgo+ZoubeJPipWinTYMEDHAmODETUSLUD2Z= ID Date Data Source [id number] 08/27/2019 08:36:16 AM EDT [facility] Name Value Range Interpretation Code Description Data Adilene rce(s) Supporting Document(s) &PDF [facility] AYVLWi5iTzAAGaDf88/HHIpcNPMcm7CzMEuzULb5VLkeXQWkK7NngNdvRQONE1ACJwfCMQTBXtGqLQF8 FcG [file] yuBc9TEbLL83ORvopMLj7YvoZOg0C1Ofnp6fRPF+line supervisor [file] AgICAgICAgICAgICAgICAgICAgICAgICAgICAgICAgICAgICAgICAgICAgICAgICAgICANCiAgICAgIC AgICAgICAgICAgICAgICAgICAgICAgICAgICAgICAg ICAgICAgICAgICAgICAgICAgICAgICAgICAgICAgICAgICAgICAgICAgICAgICAgICAgICAgICAgICAg ICANCiAgICAgICAgICAgICAgICAgICAgICAgICAgICAgICAgICAgICAgICAgICAgICAgICAgICAgICAg ICAgICAgICAgICAgICAgICAgICAgICAgICAgICAgIC AgICAgICAgICAgICANCiAgICAgICAgICAgICAgICAgICAgICAgICAgICAgICAgICAgICAgICAgICAgIC AgICAgICAgICAgICAgICAgICAgICAgICAgICAgICAgICAgICAgICAgICAgICAgICAgICAgICANCiAgIC AgICAgICAgICAgICAgICAgICAgICAgICAgICAgICAg ICAgICAgICAgICAgICAgICAgICAgICAgICAgICAgICAgICAgICAgICAgICAgICAgICAgICAgICAgICAg ICAgICANCiAgICAgICAgICAgICAgICAgICAgICAgICAgICAgICAgICAgICAgICAgICAgICAgICAgICAg ICAgICAgICAgICAgICAgICAgICAgICAgICAgICAgIC AgICAgICAgICAgICAgICANCiAgICAgICAgICAgICAgICAgICAgICAgICAgICAgICAgICAgICAgICAgIC AgICAgICAgICAgICAgICAgICAgICAgICAgICAgICAgICAgICAgICAgICAgICAgICAgICAgICAgICANCi AgICAgICAgICAgICAgICAgICAgICAgICAgICAgICAg ICAgICAgICAgICAgICAgICAgICAgICAgICAgICAgICAgICAgICAgICAgICAgICAgICAgICAgICAgICAg ICAgICAgICANCiAgICAgICAgICAgICAgICAgICAgICAgICAgICAgICAgICAgICAgICAgICAgICAgICAg ICAgICAgICAgICAgICAgICAgICAgICAgICAgICAgIC AgICAgICAgICAgICAgICAgICANCiAgICAgICAgICAgICAgICAgICAgICAgICAgICAgICAgICAgICAgIC AgICAgICAgICAgICAgICAgICAgICAgICAgICAgICAgICAgICAgICAgICAgICAgICAgICAgICAgICAgIC ANCjw/yOQoG7vphZJbuwD3Y9nbSt1KRm7QNC4op6Oc MLQqJTjbtmYrJilDZcTpGGCbRecXDke3EMdsHM9FlWJuK5VkK3IjJZorON1ZXZHiHDBgxREjRHOjKJRr WoL8ZSMbWVrbVK8GaPJpLRwwQMVuEDRhKkCsIZExRGZgPHOlPZ4QKXTsU171foMlAv7PGp5SMpAsWI8n ww5ZNmloAIAbJxoXIwv9UDbsDM6RtPMneDYvDASqJP WGVcLxU4ary1IoGltePWDKAOosEH8Bw8TtiHXzZTl+Gb5QGB7nl4DhQMaxIJMxSP0dhe2BJTiBInUkZ7 IijZtkNIsvfRswuoHyTA7TJUXfJXFerLJsHXotCDWKPU0EAGoqKSO4ZMkdlfPyhVQsHPzfQG1BTSBevg QgMjcgMCBSDQo+Tl9FMU5pc6AvSArkNZTiYD0oea6L XMhMTbBeR6L1sBUxK7V7LDugVy2PHNDoJJReLqRxJICEPSysEZ4EOQ2fqmX5OK2NiLFnCBFdHXLsrXLp YPw8R88rlMCxFZayEP2NWLD+Kali+Gc0TQOCqNVCsQKJlFdVxKSPRQaMtC0GiE7KKm8RyP8EoTB11eMna evLmGYmkFF6XAU1mUUUfPFPVFK6IyRQvbW5xvsInPr WxCMUEJfHfK88mzNUkZRZsVZZ4OETiSd8BGFEoO7OmznDekPyvwlMjHBBnXUWETP5BVUkzpkLflZRkmC doPR14bVmkWC1ICj2XWjAnTU1vsx2AfWIzIa1IFQCmMP1ZZUVpZRVjQJHuNGB4HVWzOvPrIRpqLBKzJV QxWYZ6HZUnOABxKR6VCpHgTNOmJBHuSvXfVVNiIEWr ca4NIBAiICC3Liv6CAZnYWMtMPPpOAxzFRSeLBUdQPmvXHFhEMUaMH2JEbBwIEYcFWP6DmFfGNMtNGVp mo9TIPIyPAAxNzFsEvEvRMRoOJKhMDarVFJpZTM7ZbU5TEZqNSAaWS2ECuGuYRJoFGI5NBXeVZPjWHKe cj4OBKXtQDJhHfY2ZGZbEAXuWUMtWAlmIYTgJSO7Gt Y2RTQyJCMsHJ6TCtRsAHLuAVbrUWPxXLDoXTWbsj8DYRPiBHEcKUGnWsKwZCVtGGXmGPszCAXmZOX0IU y5UWAjWMLvWD7DTvGsTHWgGVr8XFQeBXZbFVRryi6XFUFhVMNgSEg3AfPaUYRwPDRvKAjzKBDbUYH3MF M9VHRnUPQlWU0ZDcZvSZHdHLQ5OOSmLTRhGSZijn2P YFQgDRLyHVFgMbHmOWFoRIRyWVkeWPGxYYB4KiS3XGKrYCQxOR5TNcOaYRWkBLE1NWpsALQyUZOllg6S RLLyGZKjVLsbHrGzDPEkYYEoTDlpNMGiZVS0WGYmVZTnIOUcZC5DJhEwJHIjKfGrPBOzKWYxLAImyl1I DAVjJLXfCyS1ThKjOJKjHZEnDKnbBROcYIXoHQRrPE LzWWSvQW6XQvWmANMrGFB4ZLbnVPFsRYLyuu4OTOAyAZJ2NMG0BKShVOMyREGjMGdqRMTjWFU1KFQ7GI CbFDRrGX8LFpOhRRRzWMHgYnrgMTRhAXEcvq0FmAQhmSkmum0RWExXSm9BrDvlBWUfUEkxSf6twEYcUT QlPXSSFi6AugDmZKLuIDGQYQktNIDsIXEqSMW4Kjed SUIjOAS3HaCrGlUyDwE7AUO9SPctVWWwScG7SzQkNTPkXQWiHuQ9UCVbWAM9NEPhRYDqPFLuDkDlWBO+ PX9vOKf+Lj0Pm4MxhuS4kvWqPWa1JJR6Lu1AMHLYX6WTPe== ID Date Data Source [id number] 08/27/2019 08:43:03 AM EDT [facility] NT INFORMATIONPatient MRN Name Date of Age Gend*PT [id number] Giovana Paznna 1950 69 years F HOPPT Location Admission Date/Time Visit ID Attending ProviderCV-08/27/19 0606 --- Sandra Oliva MD([id number]) EPI ID CSN Admitting Provider [id number] Sandra Oliva MD([id number])The patient is a 69-year-old woman with multiple cardiovascular risk factors whohas been under a lot of emotional stress lately. She experiences symptoms ofchest discomfort sometimes with exertion and sometimes with stress. Nuclearstress testing showed patchy inferior and lateral wall perfusion defectsconcerning for ischemia and she has been referred for coronary angiography. Theprocedure and risks were explained and understood. Plan for the radialapproach.Sandra Oliva MD Name Value Range Interpretation Code Description Data Adilene rce(s) Supporting Document(s) ID Date Data Source [id number] 08/27/2019 07:26:36 AM EDT [facility] Name Value Range Interpretation Code Description Data Adilene rce(s) Supporting Document(s) POC NOVA GLU 252 mg/dL (70-99) [facility] [place] PERFORMED BY [facility] ID Date Data Source [id number] 08/24/2019 09:05:00 AM EDT [facility] Name Value Range Interpretation Code Description Data Adilene rce(s) Supporting Document(s) SARS CORONAVIRUS 2 RNA [facility] This lab was ordered by [facility] and reported by [employer]. ID Date Data Source [id number] 08/25/2019 12:07:46 PM EDT [facility] Name Value Range Interpretation Code Description Data Adilene rce(s) Supporting Document(s) SARS-COV-2 SUZANNA [facility] Not DetectedReference range: Not Detecte d Testing was performed using the marie(R) SARS-CoV-2 test. This test was developed and its performance characteristics determined by [employer]. This test has not been FDA cleared or approved. This test has been authorized by FDA under an Emergency Use Authorization (EUA). This test is only authorized for the duration of time the declaration that circumstances exist justifying the authorization of the emergency use of in vitro diagnostic tests for detection of SARS-CoV-2 virus and/or diagnosis of COVID-19 infection under section 564(b)(1) of the Act, 21 U.S.C. 360bbb-3(b)(1), unless the authorization is terminated or revoked sooner. When diagnostic testing is negative, the possibility of a false negative result should be considered in the context of a patient's recent exposures and the presence of clinical signs and symptoms consistent with COVID-19. An individual without symptoms of COVID-19 and who is not shedding SARS-CoV-[address] to have a negative (not detected) result in this assay. Performed At: [facility] [id number] Rm Ott MD Ph:[phone] ID Date Data Source [id number] 08/14/2019 05:15:00 PM EDT [facility] Name Value Range Interpretation Code Description Data Adilene rce(s) Supporting Document(s) Glucose 141 [facility] Blood Urea Nitrogen 20 [facility] ([facility]) Creatinine 1.27 [facility] ([facility]) Glomerular filtration rate/1.73 sq M.pre dicted [Volume Rate/Area] in Serum or Plasma by Creatinine-based formula (MDRD) 44.5 [facility] ([facility] [place] Chloride 105 [facility] [place] Potassium 3.9 [facility] [place] Sodium 142 [facility] [place] Calcium 9.2 [facility] [place] Phosphorus 2.8 [facility] [place]) Carbon Dioxide 29 [facility]) Albumin 4.0 [facility] [place] ID Date Data Source [id number] 08/14/2019 05:15:00 PM EDT [facility] Name Value Range Interpretation Code Description Data Adilene rce(s) Supporting Document(s) White Blood Count 5.9 [facility]) Red Blood Count 4.11 [facility]) Hematocrit 35.8 [facility] ([facility]) Hemoglobin 11.7 [facility] ([facility]) Platelets 279 [facility] ID Date Data Source [id number] 06/26/2019 11:01:00 AM EDT [facility] Name Value Range Interpretation Code Description Data Adilene rce(s) Supporting Document(s) Hemoglobin A1c/Hemoglobin.total in Blood 9.2 [facility] ([facility]) ID Date Data Source [id number] 06/26/2019 11:01:00 AM EDT [facility] Name Value Range Interpretation Code Description Data Adilene rce(s) Supporting Document(s) Alanine aminotransferase [Enzymatic activity/volume] in Serum or Pl asma 35 [facility] Albumin [Mass/volume] in Serum or Plasma 4.1 [facility]) Chloride [Moles/volume] in Serum or Plasma 100 [facility] Carbon dioxide, total [Moles/volume] in Serum or Plasma 29 [facility]) Calcium [Mass/volume] in Serum or Plasma 9.9 [facility] ([facility]) Protein [Mass/volume] in Serum or Plasma 7.1 [facility]) Potassium [Moles/volume] in Serum or Plasma 3.9 [facility]) Alkaline phosphatase [Enzymatic activity/volume] in Serum or Plasma 6 3 [facility]) Urea nitrogen [Mass/volume] in Serum or Plasma 28 [facility]) Sodium 137 [facility] Aspartate aminotransferase [Enzymatic activity/volume] in Serum or Plasma 23 [facility]) Glucose 225 70-100 [facility] Creatinine For GFR 1.19 [facility] ([facility]) ID Date Data Source [id number] 06/26/2019 11:01:00 AM EDT [facility]) Name Value Range Interpretation Code Description Data Adilene rce(s) Supporting Document(s) Cholesterol 158 [facility] ([facility]) Triglycerides 258 [facility] ([facility]) Cholesterol in LDL [Mass/volume] in Serum or Plasma by calculation 65 [facility]) HDL 41 [facility] Chol/HDL Ratio 3.853 [facility]) ID Date Data Source [id number] 06/05/2019 01:22:[address] [facility] Measurements & CalculationsHeight: 65 inches (5 ft. 5 in.) 165.10 cm Weight: 272 pounds 123.64 kg Body Mass Index (BMI): 45.43BMI Interpretation: Morbidly ObeseBody Surface Area (BSA): 2.26Weight Management Education Done (Nutrition/Physical Activity)Vital SignsTemperature: 97.8F tympanic Pulse Rate: 73 beats/minuteRespiratory Rate: 18 respirations/minuteBlood Pressure: 111/69 right arm sitting automaticO2 Saturation: 95% room airVital Signs performed by: Melani Chambers LPN, June 05, 2019 1:34 PMVital Signs performed by: Marcie PABLO, June 05, 2019 1:52 PMInitial Intake Information from: patientRoom #: 2Smoking, Tobacco, Vaping or Smoke Exposure StatusSmoke Status: former smokerTobacco Use: NoDo you vape? NoPassive Smoke Exposure: NoHealthcare HistorySince your last office visit...Have you been admitted to the hospital? NoHave you been to an emergency room (ER) or urgent care clinic? Yes - [facility] diarrehaEmergency room (ER) or urgent care date reported today: 05/24/2019Have you seen another healthcare provider? Yes - Dr. Jimenez, Home Service Director and pulmHave you seen a dentist? NoRate Your HealthIn general, would you say your health is? FairPain AssessmentAre you currently having any pain which... You would like your provider to address? Yes Affects your activity level? YesDepression Screening - PHQ-2Over the last two weeks, have you... Had little interest or pleasure in doing things? Not at all Been feeling down, depressed, or hopeless? Not at all PHQ-2 Score: 0Infectious Disease / Travel ScreeningRecent travel for you or any close contacts? NoHave you had any close contact with anyone diagnosed with or under investigation for COVID-19 (coronavirus)? NoHave you had any of the following symptoms recently? Fever? NoRespiratory symptoms: cough, cold, congestion, shortness of breath, difficulty breathing? NoPain AssessmentPain ScaleNumeric Rating Scale: 10 / 10Location: upper right legDuration: weeksCharacter/Quality: throbbingIs the pain radiating? NoScreening, Brief Intervention, & Referral to Treatment (SBIRT)Pre-Screening Questions How many times have you have 4 or more drinks in a day? 0How many times have you used an illegal drug or used a prescription medication for a non-medical reason? 0Performed by: Melani Chambers LPN, June 05, 2019 1:29 PMPatient History Medical History:DepressionDiabetes - Type IIHypertensionSurgical History:Hysterectomy (Partial)Back SurgeryFamily History:Cancer - Breast (Mother, Maternal Grandmother)Social/Personal History: Chief ComplaintHD diarrehaHistory of Present Illness (HPI)68 yo female here for f/u for HD for diarrhea. Pt states her bowels are going back and forth from formed stool to loose liquid stools. Admits to intermittent generalized gas and cramping. Denies fevers, vomiting, blood in stool. 05/24/2019 [facility] ER stool GI panel was positive for Campylobacter, formed stool, but patient is not aware of this finding and states she is not being treated with antibiotics. Pt states her right upper posterior leg is very sore. Denies injury or recent falls in her home. This is new for her in the last week or so. Reports pain in buttock/upper leg area that radiates down her leg. Pt feels this is worse with standing and position changes. Does admit to sitting alot at her home due to assisted living [place], she is unable to walk the halls with her friends or visit other areas of the facility. HPI performed by: Marcie PABLO, June 05, 2019 2:01 PMTransitions of Care InboundProblem ReviewProblem List was reviewed and/or updated during this visit.Medication Reconciliation & ReviewMedication List was reviewed and/or updated during this visit, including review of any gife-pdg-bngzcza medications, herbal therapies, and/or supplements.Allergy ReviewAllergy List was reviewed and/or updated during this visit.Adult Preventive CareProvider Calculated and Reviewed all Clinical Protoc ols for patient today. Labs/Meds/Other Counseling-Nutrition and Physical Activity:BMI Interpretation: Morbidly Obese (06/05/2019) Counseling: Done (06/05/2019) Physical Activity: Done (06/05/2019)Review of Systems General: Complains of fatigue, feeling ill. Denies chills, dizziness, fever. Cardiovascular: Denies chest pain, palpitations, feeling faint. Gastrointestinal: Complains of cramps, diarrhea, pain or discomfort. Denies nausea, vomiting, constipation, blood in stool, black or tarry stools. Genitourinary: Denies pain with urination, burning with urination, urinary frequency, urinary hesitancy, urinary urgency, blood in urine. Musculoskeletal: Complains of see HPI, joint pain, leg pain, stiffness. Denies recent injury. Skin: Denies rash, redness, itching. Physical ExamGeneral Appearance: well nourished, well hydrated, no acute distress, appears older than stated ageEyes, External: conjunctivae and lids normal, EOMIRespiratory, Auscultation: clear to auscultation bilaterally; no rales, rhonchi, or wheezesCardiovascular, Auscultation: S1, S2 audible; no murmur, rub, or gallop; RRRPeripheral Circulation: no clubbing, cyanosis, edema, or varicosities, calves supple and nontender to palpation, no palpable cordAbdomen: soft, non-tender, no masses, bowel sounds normalGait & Station: ambulates with rolling walker today, severe pain with sit to stand, slow somewhat shuffling gait very much dependent on the walkerLower Extremity, Right: painful around right piriformis and ischial tuberosity, no palpable massSkin, Inspection: no rashes, lesions, or ulcerationsOrientation: oriented to time, place, and personMood & Affect: slightly aggitated, flat affect, tearful when speaking about her isolationCare Management Plan Transitions of CareInboundRate Your HealthIn general, would you say your health is? 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 Again, this would be for more detailed care in regards to her frequent ER visits, poorly controlled diabetes, physical deconditioning which does make her a fall risk.Assessed:Edema, unspecified (NBS24-X44.9) Assessment: Instructions: Please have your daughter let me know what specific [place] office you went to previously for your desired compression socks. If she recalls where it was, I will do my best to write for them again.Patient Instructions/Care Plan: Enteric campylobacteriosis: Azithyromycin 2 tablets today then 1 tablet daily x4 additional days; 5 days total of antibiotics.Pain in right hip: Physical therapy.Assisted living facility patient: We did have a lengthy discussion about considering one of two options: 1) switching care to in-facility provider for more continuous care, or 2) looking into switching to the [facility] (or patient questioned going elsewhere). Again, this would be for more detailed care in regards to her frequent ER visits, poorly controlled diabetes, physical deconditioning which does make her a fall risk.Edema- unspecified: Please have your daughter let me know what specific [place] office you went to previously for your desired compression socks. If she recalls where it was, I will do my best to write for them again. Plan developed in collaboration with patient and/or familyMedications:AUTOLET LANCING [id number] BLOOD GLUCOSE TEST IN VITRO STRIPPHYSICAL THERAPY EVAL AND TREATSALINE MIST SPRAY 0.65 % NASAL SOLUTIONVITAMIN D3 50 MCG (1999 [place]) ORAL CAPSULELYRICA 100 MG ORAL CAPSULEVALSARTAN 40 MG ORAL TABLETOMEPRAZOLE 40 MG ORAL CAPSULE DELAYED RELEASEK-TAB 20 MEQ ORAL TABLET EXTENDED RELEASETYLENOL 8 HOUR ARTHRITIS PAIN 650 MG ORAL TABLET EXTENDED RELEASEELIQUIS 5 MG ORAL TABLETBD AUTOSHIELD DUO 30G X 5 [id number] BLOOD GLUCOSE SYSTEM W/DEVICE KITPRAVACHOL 40 MG ORAL TABLETCYMBALTA 60 MG ORAL CAPSULE DELAYED RELEASE PARTICLESNORVASC 5 MG ORAL TABLETLANTUS SOLOSTAR 100 UNIT/ML SUBCUTANEOUS SOLUTION PEN-INJECTORCVS MILK OF MAGNESIA MG/15ML ORAL SUSPENSION (MAGNESIUM HYDROXIDE)PROAIR HFA 90MCG/ACTUATIONEQ COMPLETE MULTIVIT ADULT 50+ ORAL TABLETVICTOZA 18 MG/3ML SUBCUTANEOUS SOLUTION PEN-INJECTORFLUTICASONE PROPIONATEFENOFIBRATE 160 MG ORAL TABLETHUMALOG 100 UNIT/ML SUBCUTANEOUS SOLUTIONBD PEN NEEDLE ESTELLE U/F 32G X 4 MMCHLORTHALIDONE 50 MG ORAL TABLETMedication Changes:New Prescription:AZITHROMYCIN 250 MG ORAL TABLET-Take 2 tablets po on day 1, then 1 tablet daily for 4 additional days Qty: 6[Tablet] Refills: 0 Method: Electronic* PHYSICAL THERAPY EVAL AND TREAT-as indicated 3x weekly x 6 weeks Qty: 1 Refills: 0 Method: Print then Give to Patient* PHYSICAL THERAPY EVAL AND TREAT-as indicated 3x weekly x 6 weeks Qty: 1 Refills: 0 Method: Print then Give to [id number] BLOOD GLUCOSE TEST IN VITRO STRIP-Test glucose QID and prn Qty: 300[Strip] Refills: 5 Method: ElectronicAUTOLET LANCING DEVICE- Test glucose QID and prn Qty: 300[Lancet] Refills: 5 Method: ElectronicChanged: To: GE100 BLOOD GLUCOSE SYSTEM W/DEVICE KITAllergies:METOPROLOL TARTRATE (METOPROLOL TARTRATE TABS) (Critical)* LATEX (Critical)* NYLON TAPE (Severe)* QUINOLONES (Moderate)MORPHINE SULFATE (MORPHINE SULFATE) (Mild)Orders:Adult - Ofc Vst, EST, Level III [[id number]] Follow-Up Return to clinic: in 4 weeks for follow upMedications:AUTOLET LANCING DEVICE (LANCET DEVICES) Test glucose QID and prn #300[Lancet] x 5 Route:IN VITRO Entered and Authorized by: Marcie PABLO Method used: Electronically to [facility], In* (retail) [address] [place] [address] Note to Pharmacy: Route: IN VITRO; 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;TYPE 2 DIABETES MELLITUS WITHOUT COMPLICATIONS RxID: [id number] BLOOD GLUCOSE TEST IN VITRO STRIP (GLUCOSE BLOOD) Test glucose QID and prn #300[Strip] x 5 Route:IN VITRO Entered and Authorized by: Marcie PABLO Method used: Electronically to [facility], In* (retail) [address] [place] [address] Note to Pharmacy: Route: IN VITRO; Indications: [facility] (CURRENT) USE OF INSULIN;TYPE 2 DIABETES MELLITUS WITHOUT COMPLICATIONS RxID: [id number] THERAPY EVAL AND TREAT as indicated 3x weekly x 6 weeks #1 x 0 Route:ORAL Entered and Authorized by: Marcie PABLO Method used: Print then Give to Patient Note to Pharmacy: Route: ORAL; Indications: PAIN IN RIGHT HIP RxID: [id number] THERAPY EVAL AND TREAT as indicated 3x weekly x 6 weeks #1 x 0 Route:ORAL Entered and Authorized by: Marcie PABLO Method used: Print then Give to Patient Note to Pharmacy: Route: ORAL; Indications: PAIN IN RIGHT HIP RxID: [id number] 250 MG ORAL TABLET (AZITHROMYCIN) Take 2 tablets po on day 1, then 1 tablet daily for 4 additional days #6[Tablet] x 0 Route:ORAL Entered and Authorized by: Marcie PABLO Method used: Electronically to [facility], In* (retail) [address] [place] [address] Ph: Note to Pharmacy: Route: ORAL; Indications: ENTERIC CAMPYLOBACTERIOSIS RxID: [id number] signed by Marcie PABLO on 06/11/2019 at 7:54 AM Name Value Range Interpretation Code Description Data Adilene rce(s) Supporting Document(s) ID Date Data Source [id number] 05/24/2019 05:35:00 PM EDT [facility] Name Value Range Interpretation Code Description Data Adilene rce(s) Supporting Document(s) Red Blood Count 3.95 4.00-5.40 [facility]) White Blood Count 5.5 4.0-10.0 [facility]) Hematocrit 34.7 [facility] ([facility]) Platelets 258 150-450 [facility] Hemoglobin 11.5 [facility] ([facility]) ID Date Data Source [id number] 05/24/2019 05:35:00 PM EDT [facility] Name Value Range Interpretation Code Description Data Adilene rce(s) Supporting Document(s) Troponin Laboratory test result [facility]) Magnesium Level 1.8 1.8-2.4 [facility]) Lipoprotein lipase [Enzymatic activity/volume] in Serum or Plasma 100 [facility]) ID Date Data Source [id number] 05/24/2019 05:35:00 PM EDT [facility] Name Value Range Interpretation Code Description Data Adilene rce(s) Supporting Document(s) CPK-MB 2.1 [facility] ([facility]) Creatine kinase [Enzymatic activity/volume] in Serum or Plasma 129 [facility] ([facility]) ID Date Data Source [id number] 05/24/2019 05:35:00 PM EDT [facility] ([facility]) Name Value Range Interpretation Code Description Data Adilene rce(s) Supporting Document(s) Alanine aminotransferase [Enzymatic activity/volume] in Serum or Pl asma 38 [facility] ([facility]) Albumin [Mass/volume] in Serum or Plasma 3.4 [facility] ([facility]) Alkaline phosphatase [Enzymatic activity/volume] in Serum or Plasma 5 7 [facility] ([facility]) Chloride [Moles/volume] in Serum or Plasma 104 [facility] ([facility]) Calcium [Mass/volume] in Serum or Plasma 8.5 [facility] ([facility]) Carbon dioxide, total [Moles/volume] in Serum or Plasma 29 [facility] ([facility]) Potassium [Moles/volume] in Serum or Plasma 3.3 [facility] ([facility]) Sodium 138 [facility] ([facility]) Protein [Mass/volume] in Serum or Plasma 6.2 [facility] ([facility]) Glucose 263 83-110 [facility] ([facility]) Creatinine For GFR 1.37 [facility] ([facility]) Aspartate aminotransferase [Enzymatic activity/volume] in Serum or Plasma 21 [facility] ([facility]) Urea nitrogen [Mass/volume] in Serum or Plasma 21 [facility] ([facility]) ID Date Data Source [id number] 05/24/2019 02:04:[address] [facility] Measurements & CalculationsHeight: 65 inches (5 ft. 5 in.) 165.10 cm Weight: 267 pounds 121.36 kg Body Mass Index (BMI): 44.59BMI Interpretation: Morbidly ObeseBody Surface Area (BSA): 2.24Weight Management Education Done (Nutrition/Physical Activity)Vital SignsTemperature: 97.8F oral Pulse Rate: 67 beats/minuteRespiratory Rate: 18 respirations/minuteBlood Pressure: 123/74 left arm sitting automaticO2 Saturation: 94% room airVital Signs performed by: Melani Chambers LPN, May 24, 2019 2:14 PMInitial Intake Information from: patientRoom #: 1Smoking, Tobacco, Vaping or Smoke Exposure StatusSmoke Status: former smokerTobacco Use: NoDo you vape? NoPassive Smoke Exposure: NoHealthcare HistorySince your last office visit...Have you been admitted to the hospital? Yes - [facility] syncope and dyspneaHospital admission date reported today: 05/07/2019Have you been to an emergency room (ER) or urgent care clinic? NoHave you seen another healthcare provider? Yes - Dr Jimenez, orthoHave you seen a dentist? NoRate Your HealthIn general, would you say your health is? FairPain AssessmentAre you currently having any pain which... You would like your provider to address? Yes Affects your activity level? YesDepression Screening - PHQ-2Over the last two weeks, have you... Had little interest or pleasure in doing things? Not at all Been feeling down, depressed, or hopeless? Not at all PHQ-2 Score: 0Anxiety Screening - GERMÁN-2Over the last two weeks, have you been... Feeling nervous, anxious, or on edge? Not at all Unable to stop or control worrying? Not at all GERMÁN-2 Score: 0Infectious Disease / Travel ScreeningRecent travel for you, your family, and/or any sexual partners? NoPain AssessmentPain ScaleNumeric Rating Scale: 8 / 10Location: right legDuration: 1 dayCharacter/Quality: throbbing. tender to calfIs the pain radiating? NoScreening, Brief Intervention, & Referral to Treatment (SBIRT)Pre-Screening Questions How many times have you have 4 or more drinks in a day? 0How many times have you used an illegal drug or used a prescription medication for a non-medical reason? 0Performed by: Melani Chambers LPN, May 24, 2019 2:10 PMPatient History Medical History:DepressionDiabetes - Type IIHypertensionSurgical History:Hysterectomy (Partial)Back SurgeryFamily History:Cancer - Breast (Mother, Maternal Grandmother)Social/Personal History: Chief ComplaintHD syncope History of Present Illness (HPI)68 yo female here for HD for dyspnea and syncope.Pt was admitted to [facility] 05/07/19-05/09/19 for dyspnea. Recommendation was for updating of her PFTs and cardiac evaluation. She continues to feel short of breath constantly. Pt states she just wants to know what is going on with her and does not want anymore medications added.Pt states her right leg is tender and throbbing the last day. Denies known injury, no swelling, no bruising. Pt also states her feet feel like the are vibrating when she stands.Pt is also quite upset that she is socially isolated in her assisted living facility due to the current COVID19 pandemic. She feels more isolated than ever. Transitions of Care InboundProblem ReviewProblem List was reviewed and/or updated during this visit.Medication Reconciliation & ReviewMedication List was reviewed and/or updated during this visit, including review of any khxc-xov-bwluxam medications, herbal therapies, and/or supplements.Allergy ReviewAllergy List was reviewed and/or updated during this visit.Adult Preventive CareProvider Calculated and Reviewed all Clinical Protocols for patient today. Labs/Meds/Other Counseling- Nutrition and Physical Activity:BMI Interpretation: Morbidly Obese (05/24/2019) Counseling: Done (05/24/2019) Physical Activity: Done (05/24/2019)Review of Systems General: Complains of fatigue. Denies loss of appetite, chills, dizziness, fever, feeling ill. Cardiovascular: Denies chest pain, palpitations, feeling faint, peripheral edema. Respiratory: Complains of shortness of breath. Denies cough, excessive sputum, wheezing, chest pain. Gastrointestinal: Denies nausea, vomiting, diarrhea, constipation, pain or discomfort. Musculoskeletal: Complains of see HPI, leg pain. Denies stiffness, recent injury. Skin: Denies rash, redness, itching. Neurologic: Complains of weakness. Denies numbness/tingling. Psychiatric: Complains of see HPI. Physical ExamGeneral Appearance: well nourished, well hydrated, no acute distress, appears older than stated ageEyes, External: conjunctivae and lids normal, EOMIRespiratory, Auscultation: clear to auscultation bilaterally; no rales, rhonchi, or wheezesRespiratory, Effort: no intercostal retractions or use of accessory musclesCardiovascular, Auscultation: S1, S2 audible; no murmur, rub, or gallop; RRRPeripheral Circulation: no clubbing, cyanosis, edema, or varicosities, calves supple and nontender to palpation, no palpable cordAbdomen: soft, non-tender, no masses, bowel sounds normalGait & Station: sitting in wheechair, unable to assess todaySkin, Inspection: no rashes, lesions, or ulcerationsOrientation: oriented to time, place, and personMood & Affect: slightly aggitated, flat affect, tearful when speaking about her isolationJudgment & Insight: intactCare Management Plan Transitions of CareInboundRate Your HealthIn general, would you say your health is? 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 However her provided facility diet is a large factor. Pt is agreeable to an endocrinology referral and I feel that is appropriate. I do not feel she needs insulin adjustment at this time due to risk of hypoglycemic events. I am aware that she is higher than goal however. Recommend low carbohydrate diet: reduce pasta, bread, potatoes, rice. If you do eat carbohydrates, better choices are whole wheat and brown rice products. Recommend portion control and avoidance of soda and sugary foods.Acute right heart failure (PPH61-L13.811) Assessment: Instructions: Recommend oupatient cardiac consult for evaluation of her constant breathlessness.Bleeding from nose (ICD-784.7) (YZQ23-Z60.0) Assessment: Instructions: Start saline nasal spray as needed throughout the day.Patient Instructions/Care Plan: Type 2 diabetes mellitus without complications: Poor control over her sugars. However her provided facility diet is a large factor. Pt is agreeable to an endocrinology referral and I feel that is appropriate. I do not feel she needs insulin adjustment at this time due to risk of hypoglycemic events. I am aware that she is higher than goal however. Recommend low carbohydrate diet: reduce pasta, bread, potatoes, rice. If you do eat carbohydrates, better choices are whole wheat and brown rice products. Recommend portion control and avoidance of soda and sugary foods.Acute right heart failure: Recommend oupatient cardiac consult for evaluation of her constant breathlessness.Bleeding from nose: Start saline nasal spray as needed t hroughout the day. Plan developed in collaboration with patient and/or familyMedications:SALINE MIST SPRAY 0.65 % NASAL SOLUTIONVITAMIN D3 50 MCG (1999 UT) ORAL CAPSULELYRICA 100 MG ORAL CAPSULEVALSARTAN 40 MG ORAL TABLETOMEPRAZOLE 40 MG ORAL CAPSULE DELAYED RELEASEK-TAB 20 MEQ ORAL TABLET EXTENDED RELEASETYLENOL 8 HOUR ARTHRITIS PAIN 650 MG ORAL TABLET EXTENDED RELEASEELIQUIS 5 MG ORAL TABLETBD AUTOSHIELD DUO 30G X 5 MMONETOUCH ULTRA BLUE IN VITRO STRIPPRAVACHOL 40 MG ORAL TABLETCYMBALTA 60 MG ORAL CAPSULE DELAYED RELEASE PARTICLESNORVASC 5 MG ORAL TABLETLANTUS SOLOSTAR 100 UNIT/ML SUBCUTANEOUS SOLUTION PEN-INJECTORCVS MILK OF MAGNESIA MG/15ML ORAL SUSPENSION (MAGNESIUM HYDROXIDE)PROAIR HFA 90MCG/ACTUATIONEQ COMPLETE MULTIVIT ADULT 50+ ORAL TABLETVICTOZA 18 MG/3ML SUBCUTANEOUS SOLUTION PEN-INJECTORFLUTICASONE PROPIONATEFENOFIBRATE 160 MG ORAL TABLETHUMALOG 100 UNIT/ML SUBCUTANEOUS SOLUTIONBD PEN NEEDLE ESTELLE U/F 32G X 4 MMCHLORTHALIDONE 50 MG ORAL TABLETMedication Changes:Refilled:LYRICA 100 MG ORAL CAPSULE-Take 1 capsule PO BID Qty: 60[Capsule] Refills: 3 Method: ElectronicRemoved:ULTRAM 50 MG ORAL TABLET-1 tablet po dailyChanged:From: ORAL LYRICA 75 MG ORAL CAPSULE Qty: [id number] Refills: 60[Capsule] To: LYRICA 100 MG ORAL CAPSULE-Take 1 capsule PO BID Qty: 60[Capsule] Refills: 3Allergies:METOPROLOL TARTRATE (METOPROLOL TARTRATE TABS) (Critical)* LATEX (Critical)* NYLON TAPE (Severe)* QUINOLONES (Moderate)MORPHINE SULFATE (MORPHINE SULFATE) (Mild)Orders:Endocrinology Consult [CPT-96831] Cardiology Consult [CPT-95416] Adult - Ofc Vst, EST, Level III [CPT-48227] Follow-Up Return to clinic: in 4-6 weeks for follow upAdditional Follow-Up: referral follow-upClinical Visit Summary DeclinedMedications:LYRICA 100 MG ORAL CAPSULE (PREGABALIN) Take 1 capsule PO BID #60[Capsule] x 3 Route:ORAL Entered and Authorized by: Marcie PABLO Method used: Electronically to [facility], In* (retail) [address] [place] [address] Ph: Note to Pharmacy: Route: ORAL; Indica tions: CHRONIC PAIN RxID: [id number]] Name Value Range Interpretation Code Description Data Adilene rce(s) Supporting Document(s) ID Date Data Source [id number] 05/08/2019 05:38:00 PM EST [facility] Name Value Range Interpretation Code Description Data Adilene rce(s) Supporting Document(s) Troponin Laboratory test result [facility] ([facility]) ID Date Data Source [id number] 05/08/2019 05:38:00 PM EST [facility] ([facility] Name Value Range Interpretation Code Description Data Adilene rce(s) Supporting Document(s) CPK-MB 4.6 [facility] ([facility]) Creatine kinase [Enzymatic activity/volume] in Serum or Plasma [address] [facility] ([facility]) ID Date Data Source [id number] 04/19/2019 08:25:00 AM [facility] Name Value Range Interpretation Code Description Data Adilene rce(s) Supporting Document(s) APPEARANCE U CLEAR CLEAR N [facility] SPEC GR URIN 1.011 1.002-1.035 N [facility] UA COLOR YELLOW YELLOW N [facility] ID Date Data Source [id number] 04/18/2019 02:30:00 PM [facility] Name Value Range Interpretation Code Description Data Adilene rce(s) Supporting Document(s) HCT 37.4 % 36.0-47.0 [facility] HGB 12.6 g/dL 12.0-15.[address] [facility] MCH 33.7 G/DL pg 32.0-36.5 N [facility] MCHC 29.3 PG % 27.0-33.0 [facility] PLATELETS 286 10 10*3/mm3 150-[address] [facility] RBC 4.30 10 10*6/mm3 4.00-5.40 [facility] RDW 12.7 % 11.5-14.5 [facility] WBC TOTAL 9.4 4.0-10.0 [facility] ID Date Data Source [id number] 04/18/2019 02:30:00 PM [facility] Name Value Range Interpretation Code Description Data Adilene rce(s) Supporting Document(s) BG FASTING 171 mg/dL 70-100 H [facility] y Health ID Date Data Source [id number] 04/18/2019 01:25:11 PM [facility] Measurements & CalculationsHeight: 65 inches (5 ft. 5 in.) 165.10 cm Weight: 265 pounds 120.45 kg Body Mass Index (BMI): 44.26BMI Interpretation: Morbidly ObeseBody Surface Area (BSA): 2.23Weight Management Education Done (Nutrition/Physical Activity)Vital SignsTemperature: 97.6FPulse Rate: 84 beats/minuteRespiratory Rate: 17 respirations/minuteBlood Pressure: 124/66 O2 Saturation: 94% Vital Signs performed by: Leanne Talley MA, April 18, 2019 1:34 PMVital Signs performed by: Marcie PABLO, April 18, 2019 2:03 PMInitial Intake Information from: patientRoom #: 9Infectious Disease- Travel Have you or your sexual partner travelled outside of the country recently? NoSmoking, Tobacco or Smoke Exposure StatusSmoke Status: former smokerTobacco Use: NoPassive Smoke Exposure: NoMenstrual HistoryComments: hysterectomy Healthcare HistorySince your last office visit...Have you been admitted to the hospital? N oHave you been to an emergency room (ER) or urgent care clinic? NoHave you seen another healthcare provider? YesHave you seen a dentist? NoIntake performed by: Leanne Talley MA, April 18, 2019 1:29 PMRate Your HealthIn general, would you say your health is? FairPain AssessmentAre you currently having any pain which... You would like your provider to address? Yes Affects your activity level? YesDepression Screening - PHQ-2Over the last two weeks, have you... Had little interest or pleasure in doing things? Not at all Been feeling down, depressed, or hopeless? Not at all PHQ-2 Score: 0Anxiety Screening - GERMÁN-2Over the last two weeks, have you been... Feeling nervous, anxious, or on edge? Not at all Unable to stop or control worrying? Not at all GERMÁN-2 Score: 0Pain AssessmentPain ScaleNumeric Rating Scale: 10 / 10Location: wristDuration: 3 monthsFrequency: DailyCharacter/Quality: sharpIs the pain radiating? YesScreening, Brief Intervention, & Referral to Treatment (SBIRT)Pre- Screening Questions How many times have you have 4 or more drinks in a day? 0How many times have you used an illegal drug or used a prescription medication for a non-medical reason? 0Performed by: Leanne Talley MA, April 18, 2019 1:30 PMPatient History Medical History:DepressionDiabetes - Type IIHypertensionSurgical History:Hysterectomy (Partial)Back SurgeryFamily History:Cancer - Breast (Mother, Maternal Grandmother)Social/Personal History: Smoking Status: former smokerChief ComplaintDM, sickHistory of Present Illness (HPI)Pt is a 68 y/o female, presents for diabetes follow-up and complaining of recurrent diarrhea.Pt reports sugars have been fairly stable. Is unable to provide levels. She currently lives in the assisted living portion of [facility]. Pt states the nursing staff check her blood sugars and provide her with all of her medications. Pt reports diarrhea that has been present for the last 3-4 days. No change in medications, no sick contacts, no dietary changes. Pt admits to suprapubic pain as well. Pt feels ill. She has been remaining well hydrated and eating bland foods. Denies blood in stool or vomiting. Transitions of Care InboundMedication Reconciliation & ReviewMedication List was reviewed and/or updated during this visit, including review of any ovjr-otf-gpwuvlf medications, herbal therapies, and/or supplements.Allergy ReviewAllergy List was reviewed and/or updated during this visit.Adult Preventive CareProvider Calculated and Reviewed all Clinical Protocols for patient today. Labs/Meds/Other Counseling- Nutrition and Physical Activity:BMI Interpretation: Morbidly Obese (04/18/2019) Counseling: Done (04/18/2019) Physical Activity: Done (04/18/2019)Review of Systems General: Complains of loss of appetite, fatigue, feeling ill. Denies chills, fever. Cardiovascular: Denies chest pain, palpitations, feeling faint. Gastrointestinal: Complains of nausea, diarrhea, pain or discomfort. Denies vomiting, bloody diarrhea, blood in stool, black or tarry stools, heartburn. Genitourinary: Complains of urinary incontinence, pelvic pain. Denies pain with urination, burning with urination, urinary frequency, blood in urine. Skin: Denies rash, itching. Neurologic: complaining of bilateral carpal tunnel, intended for surgery next weekPhysical ExamGeneral Appearance: well nourished, well hydrated, no acute distress, appears older than stated age, somewhat ill appearingEyes, External: conjunctivae and lids normal, EOMIRespiratory, Auscultation: clear to auscultation bilaterally; no rales, rhonchi, or wheezesRespiratory, Effort: no intercostal retractions or use of accessory musclesCardiovascular, Auscultation: S1, S2 audible; no murmur, rub, or gallop; RRRAbdomen: soft, suprapubic pain to palpation, no masses, bowel sounds somewhat hyperactive throughoutGait & Station: sitting in wheechair, unable to assess todaySkin, Inspection: no rashes, lesions, or ulcerationsOrientation: oriented to time, place, and personJudgment & Insight: intactCare Management Plan Transitions of CareInboundRate Your HealthIn general, would you say your health is? FairAssessment & Plan Problems:Added: Suprapubic pain (ICD-789.09) (ICD10- R10.33) Assessment: Instructions: Testing ordered to further evaluate for possible bladder infection.Assessed:Acute diarrhea (ICD-787.91) (LRL31-X79.7) Assessment: Instructions: Stool culture ordered. [place] diet, plenty of fluids. Labs drawn today to assess for dehydration and elevated white blood cell count. Hold fenofibrate until diarrhea free x 24 hours.Carpal tunnel syndrome of right wrist (AVC23-T46.01) Assessment: Instructions: Continue with surgery as scheduled ONLY if afebrile, diarrhea free, and feeling well for 24 hours prior to surgery.Assessment not Saved Acute diarrhea (BPK37-E01.7): Patient Instructions/Care Plan: Acute diarrhea: Stool culture ordered. [place] diet, plenty of fluids. Labs drawn today to assess for dehydration and elevated white blood cell count. Hold fenofibrate until diarrhea free x 24 hours.Suprapubic pain: Testing ordered to further evaluate for possible bladder infection.Carpal tunnel syndrome of right wrist: Continue with surgery as scheduled ONLY if afebrile, diarrhea free, and feeling well for 24 hours prior to surgery. Plan developed in collaboration with patient and/or familyMedications:VITAMIN D3 50 MCG (1999 UT) ORAL CAPSULELYRICA 75 MG ORAL CAPSULEVALSARTAN 40 MG ORAL TABLETOMEPRAZOLE 40 MG ORAL CAPSULE DELAYED RELEASEULTRAM 50 MG ORAL TABLETK-TAB 20 MEQ ORAL TABLET EXTENDED RELEASETYLENOL 8 HOUR ARTHRITIS PAIN 650 MG ORAL TABLET EXTENDED RELEASEELIQUIS 5 MG ORAL TABLETBD AUTOSHIELD DUO 30G X 5 MMONETOUCH ULTRA BLUE IN VITRO STRIPPRAVACHOL 40 MG ORAL TABLETCYMBALTA 60 MG ORAL CAPSULE DELAYED RELEASE PARTICLESNORVASC 5 MG ORAL TABLETLANTUS SOLOSTAR 100 UNIT/ML SUBCUTANEOUS SOLUTION PEN-INJECTORCVS MILK OF MAGNESIA MG/15ML ORAL SUSPENSION (MAGNESIUM HYDROXIDE)PROAIR HFA 90MCG/ACTUATIONEQ COMPLETE MULTIVIT ADULT 50+ ORAL TABLETVICTOZA 18 MG/3ML S UBCUTANEOUS SOLUTION PEN-INJECTORFLUTICASONE PROPIONATEFENOFIBRATE 160 MG ORAL TABLETHUMALOG 100 UNIT/ML SUBCUTANEOUS SOLUTIONBD PEN NEEDLE ESTELLE U/F 32G X 4 MMCHLORTHALIDONE 50 MG ORAL TABLETAllergies:METOPROLOL TARTRATE (METOPROLOL TARTRATE TABS) (Critical)* LATEX (Critical)* NYLON TAPE (Severe)* QUINOLONES (Moderate)MORPHINE SULFATE (MORPHINE SULFATE) (Mild)Orders:CBC W/DIFF [CPT- 88315] COMP METABOLIC PANEL [CPT-17482] Urinalysis-automated [CPT-27638] Urine Culture & Sensitivity [CPT-89610] URINALYSIS [CPT-97362] GI Panel - Stool [CPT- 20319] 97996 - Venipuncture [CPT-35048] Adult - Ofc Vst, EST, Level III [CPT- 24511] Follow-Up Return to clinic: in 1 month for follow upAdditional Follow-Up: lab draw, office visitClinical Visit Summary DeclinedLabs In-House Blood TestsDate/Time Collected: April 18, 2019 2:39 PMTest Result Reference Range Normal ValueComments: blood draw done in offcie done in the left ac tolerated well Jack Darling MA, April 18, 2019 2:40 PMEl ectronically signed by Marcie PABLO on 04/23/2019 at 8:12 AM Name Value Range Interpretation Code Description Data Adilene rce(s) Supporting Document(s) ID Date Data Source [id number] 04/03/2019 03:46:52 PM [facility] Measurements & CalculationsHeight: 65 inches 165.10 cm Weight: 259 pounds 117.73 kg Body Mass Index (BMI): 43.26BMI Interpretation: Morbidly ObeseBody Surface Area (BSA): 2.21Weight Management Education Done (Nutrition/Physical Activity)Vital SignsTemperature: 98.0FPulse Rate: 72 beats/minuteRespiratory Rate: 18 respirations/minuteBlood Pressure: 122/76 O2 Saturation: 93% Vital Signs performed by: Maryjane Mckeon MA, April 03, 2019 4:04 PMVital Signs performed by: Marcie PABLO, April 03, 2019 4:18 PMInitial Intake Information from: patientRoom #: 9Infectious Disease- Travel Have you or your sexual partner travelled outside of the country recently? NoSmoking, Tobacco or Smoke Exposure StatusSmoke Status: former smokerTobacco Use: NoPassive Smoke Exposure: NoMenstrual HistoryAny possibility of ? NoHealthcare HistorySince your last office visit...Have you been admitted to the hospital? - [facility] stomach and bladder painsHospital admission date reported today: 11/08/2018Have you been to an emergency room (ER) or urgent care clinic? No - [facility] ER SOBEmergency room (ER) or urgent care date reported today: 11/19/2018Have you seen another healthcare provider? Yes - [facility], orthoHave you seen a dentist? NoIntake performed by: Maryjane Mckeon MA, April 03, 2019 3:52 PMRate Your HealthIn general, would you say your health is? FairPain AssessmentAre you currently having any pain which... You would like your provider to address? No Affects your activity level? NoDepression Screening - PHQ-2Over the last two weeks, have you... Had little interest or pleasure in doing things? Not at all Been feeling down, depressed, or hopeless? Not at all PHQ-2 Score: 0Anxiety Screening - GERMÁN-2Over the last two weeks, have you been... Feeling nervous, anxious, or on edge? Not at all Unable to stop or control worrying? Not at all GERMÁN-2 Score: 0Infectious Disease- Travel Cont. Any possibility of ? NoScreening, Brief Intervention, & Referral to Treatment (SBIRT)Pre-Screening Questions How many times have you have 4 or more drinks in a day? 0How many times have you used an illegal drug or used a prescription medication for a non-medical reason? 0Performed by: Maryjane Mckeon MA, April 03, 2019 3:53 PMPatient History Medical History:DepressionDiabetes - Type IIHypertensionSurgical History:Hysterectomy (Partial)Back SurgeryFamily History:Cancer - Breast (Mother, Maternal Grandmother)Social/Personal History: Smoking Status: former smokerChief Complaintdiarrhea, exhaustion, SOB x one week, she would like a script for cata stockings History of Present Illness (HPI)Pt reports for sick visit today, presents unaccompanied, currently living at [facility] [place].Diarrhea x 4 days with incontinence, currently goes 3-4 times daily. Denies sick contact or medication changes. Denies fevers. Denies dietary changes.Pt has nursing staff administer her medications and check her glucoses. She also brought meal plans from [facility], scanned into chart, and states she sometimes substitutes for healthier options, tries to stay compliant with diabetic diet.Transitions of Care InboundAdult Preventive CareProvider Calculated and Reviewed all Clinical Protocols for patient today. Labs/Meds/Other Counseling-Nutrition and Physical Activity:BMI Interpretation: Morbidly Obese (04/03/2019) Counseling: Done (04/03/2019) Physical Activity: Done (04/03/2019)Review of Systems General: Denies chills, dizziness, fatigue, fever, feeling ill. Cardiovascular: Denies chest pain, palpitations, feeling faint. Respiratory: Denies cough, shortness of breath, wheezing. Gastrointestinal: Complains of diarrhea. Denies nausea, vomiting, pain or discomfort, blood in stool, black or tarry stools, heartburn. Genitourinary: Denies pain with urination, burning with urination, urinary frequency, urinary hesitancy, urinary urgency, blood in urine. Musculoskeletal: Complains of back pain, joint pain. Skin: Denies rash, itching. Physical ExamGeneral Appearance: well nourished, well hydrated, no acute distress, appears older than stated ageEyes, External: conjunctivae and lids normal, EOMIRespiratory, Auscultation: clear to auscultation bilaterally; no rales, rhonchi, or wheezesRespiratory, Effort: no intercostal retractions or use of accessory musclesCardiovascular, Auscultation: S1, S2 audible; no murmur, rub, or gallop; RRRPeripheral Circulation: no clubbing, cyanosis, edema, or varicositiesAbdomen: soft, non-tender, no masses, bowel sounds normalGait & Stat ion: normalSkin, Inspection: no rashes, lesions, or ulcerationsOrientation: oriented to time, place, and personMood & Affect: no depression, anxiety, or agitationJudgment & Insight: intactCare Management Plan Transitions of CareInboundRate Your HealthIn general, would you say your health is? FairAssessment & Plan Problems:Added: Acute diarrhea (ICD-787.91) (YBF84-P60.7) Assessment: Instructions: Improved at this time. If diarrhea returns, please call for stool study to test for infection.Carpal tunnel syndrome of right wrist (RNQ06-Q67.01) Assessment: Instructions: Continue per orthopedics.Assessed:Type 2 diabetes mellitus without complications (ICD10- E11.9) Assessment: Instructions: Reviewed medications in detail with patient today. Recommend no changes, but to return for diabetes review in 2 weeks.Patient Instructions/Care Plan: Acute diarrhea: Improved at this time. If diarrhea returns, please call for stool study to test for infection.Type 2 diabetes mellitus without complications: Reviewed medications in detail with patient today. Recommend no changes, but to return for diabetes review in 2 weeks.Carpal tunnel syndrome of right wrist: Continue per orthopedic s. Plan developed in collaboration with patient and/or familyMedication Changes:Added: K-TAB 20 MEQ ORAL TABLET EXTENDED RELEASE-1 tablet PO dailyULTRAM 50 MG ORAL TABLET-1 tablet po dailyOMEPRAZOLE 40 MG ORAL CAPSULE DELAYED RELEASE-1 tablet PO QAM Qty: 30[Capsule] Refills: 5VALSARTAN 40 MG ORAL TABLET-1 tablet PO dailyLYRICA 75 MG ORAL CAPSULE-1 tablet PO BIDRemoved:* ACETAMINOPHEN-650 mg po every 6 hrs prn, * DULOXETINE HCL DR/EC 20 MG-1 tablet po qd, * ELIQUIS-10 mg po bid, * SENNA-DOCUSATE SODIUM-2 po qd prn constipation, * HUMULIN 70/30 KWIKPEN 100UNITS/ML 70-30-65 units sq 1 x per day, * GABAPENTIN 100MG-1 po qd, * D3-50 36731 UNITS-5000 po every monday, VITAMIN D2 TABLET- take 2 tabs of 1.25mg weekly, * PRAVASTATIN SODIUM 40 MG-1 tablet po qd, * VOLTAREN GEL 1%-as directed topically 3 x per day to joints of hands for pain, KLOR-CON 20 MEQ ORAL PACKET-1 paket po qd Qty: 30[Packet] Refills: 5, HUMALOG KWIKPEN 100 UNIT/ML SUBCUTANEOUS SOLUTION CJU-PCCNKIZW-3 units SQ for FSBS 100- 150 then per sliding scale/ MD instructions. MDD 50 units Qty: 5[Prefilled Pen Syrnge] Refills: 5, POLYETHYLENE GLYCOL 3350 ORAL POWDER-1 capful with large glass of water qd prn constipation Qty: 1[Container] Refills: 5Changed: To: HUMALOG 100 UNIT/ML SUBCUTANEOUS SOLUTION-10 units once daily at dinner time. Hold if sugars less than 110. Qty: 5[Milliliter] Refills: 1From: ORAL * [facility] MILK OF MAGNESIA MG/15ML ORAL SUSPENSION (MAGNESIUM HYDROXIDE) To: * [facility] MILK OF MAGNESIA MG/15ML ORAL SUSPENSION (MAGNESIUM HYDROXIDE)-qd prnOrders:Adult - Ofc Vst, EST, Level III [CPT-55438] Follow-Up Return to clinic: in 2 weeks for diabetesMedications:Cancelled POLYETHYLENE GLYCOL 3350 ORAL POWDER (POLYETHYLENE GLYCOL 3350) 1 capful with large glass of water qd prn constipation #1[Container] x 5 Entered by: Marcie PABLO Authorized by: Tami Hernández MD Method used: Electronically to [facility], In* (retail) [address] [place] [address] RxID: [id number] HUMALOG KWIKPEN 100 UNIT/ML SUBCUTANEOUS SOLUTION PEN- INJECTOR (INSULIN LISPRO) 2 units SQ for FSBS 100-150 then per sliding scale/ MD instructions. MDD 50 units #5[Prefilled Pen Syrnge] x 5 Route:SUBCUTANEOUS Entered by: Marcie PABLO Authorized by: Ella COLON Method used: Electronically to [facility], In* (retail) [address] [place], [place] [id number] RxID: [id number] KLOR-CON 20 MEQ ORAL PACKET (POTASSIUM CHLORIDE) 1 paket po qd #30[Packet] x 5 Entered by: Marcie PABLO Authorized by: Tami Hernández MD Method used: Electronically to [facility], In* (retail) [address] [place] [address] Fax: RxID: [id number] signed by Marcie PABLO on 04/10/2019 at 8:19 AM Name Value Range Interpretation Code Description Data Adilene rce(s) Supporting Document(s) ID Date Data Source [id number] 04/02/2019 12:15:45 PM EST [facility], PCName: Manju Gillette: 2Provider: Sari Lopez: 03/22/2019 History of Present IllnessContinued bilateral knee and leg pain, right greater than the left. Known primary osteoarthritis. No change. Prior history: chronic complaints of bilateral knee pain. Pain is constant and worse on the right compared to left. Associated with crepitus and buckling. Denies any locking. Primary complaint is right knee pain today. Has had problems in the past with frequent muscle spasms. Prior Doppler ultrasounds have been negative for DVT.Presently with her daughter once again. Previous relief with Visco supplementation, lengthy improvement, no better with prior steroid injections or Tylenol. Diabetic. Results/DataXRays previously taken were reviewed today. Side: Right Bilateral Flex, PA, Weight Bearing, Merchants and Lateral of effected knee Findings: No fractures, dislocations, or other significant abnormalities. Findings: Medial degenerative change of a moderate degree. Findings: Lateral degenerative change of a moderate degree. Findings: Global degenerative change of a severe degree. Findings: patello-femoral degenerative change of a severe degree. Progressive disease since originally seen, August 2018, versus October 2015. Assessment Knee pain (719.46) (M25.569) Primary osteoarthritis of both knees (715.16) (M17.0) Subsequent encounter. History of chronic knee pain secondary to primary osteoarthritis. Right knee continues to be worse than the left. Her primary complaint has been swelling and spasms of her lower extremities. She did get substantial relief with previous high around the cast and injections. She notes Tylenol, and prior steroid injections not very helpful. We did discuss total knee replacement, but she has comorbidities, including diabetes, and I think continued conservative care is the best option. BMI remains a problem. Conservative care was reviewed with the patient and her daughter.We obtain authorization for right knee Synvisc one injection, administered after discussion of options and pros and cons. PlanPlan, Assessment and Recommendation(s) The plan for the patient is Activity Modification and hyaluronic acid injection. continue with current plan. continue with conservative treatment. Not Comp, No-Fault, or Liability. Follow up as needed, if not improving, or getting worse. The nature of the diagnosis and various treatment alternatives were discussed today, including invasive, operative, and non-operative options. This document was dictated and electronically signed using [employer] software. A reasonable attempt at proof reading has been made to minimize errors. Please call with any questions. Signatures Electronically signed by : Harry Lopez M.D.; Apr 02 2019 12:15PM EST (Author) Name Value Range Interpretation Code Description Data Adilene rce(s) Supporting Document(s) Procedure Social History Code Duration Value Status Description Data Source(s ) Smoking 03/24/2020 12:00:00 AM EST Former Smoker completed Former Smoker eCW1 ([facility]) Smoking 03/24/2020 12:00:00 AM EST Former Smoker completed Former Smoker eCW1 ([facility]) Smoking 03/24/2020 12:00:00 AM EST Former Smoker completed Former Smoker eCW1 ([facility]) Smoking 02/27/2020 12:00:00 AM EST Former Smoker completed Former Smoker eCW1 ([facility]) Smoking 02/27/2020 12:00:00 AM EST Former Smoker completed Former Smoker eCW1 ([facility]) Smoking 02/27/2020 12:00:00 AM EST Former Smoker completed Former Smoker eCW1 ([facility]) Smoking 02/27/2020 12:00:00 AM EST Former Smoker completed Former Smoker eCW1 ([facility]) Smoking 02/27/2020 12:00:00 AM EST Former Smoker completed Former Smoker eCW1 ([facility]) Smoking 02/27/2020 12:00:00 AM EST Former Smoker completed Former Smoker eCW1 ([facility]) Smoking 02/27/2020 12:00:00 AM EST Former Smoker completed Former Smoker eCW1 ([facility]) Smoking 02/21/2020 12:00:00 AM EST Former Smoker completed Former Smoker eCW1 ([facility]) Smoking 01/07/2020 12:00:00 AM EDT Former Smoker completed Former Smoker eCW1 ([facility]) Smoking 01/07/2020 12:00:00 AM EDT Former Smoker completed Former Smoker eCW1 ([facility]) Smoking 01/07/2020 12:00:00 AM EDT Former Smoker completed Former Smoker eCW1 ([facility]) Smoking 01/07/2020 12:00:00 AM EDT Former Smoker completed Former Smoker eCW1 ([facility]) Smoking 01/07/2020 12:00:00 AM EDT Former Smoker completed Former Smoker eCW1 ([facility]) Smoking 01/07/2020 12:00:00 AM EDT Former Smoker completed Former Smoker eCW1 ([facility]) Smoking 01/07/2020 12:00:00 AM EDT Former Smoker completed Former Smoker eCW1 ([facility]) Smoking 01/07/2020 12:00:00 AM EDT Former Smoker completed Former Smoker eCW1 ([facility]) Smoking 01/07/2020 12:00:00 AM EDT Former Smoker completed Former Smoker eCW1 ([facility]) Smoking 01/07/2020 12:00:00 AM EDT Former Smoker completed Former Smoker eCW1 ([facility]) Smoking 01/07/2020 12:00:00 AM EDT Former Smoker completed Former Smoker eCW1 ([facility]) Smoking 01/07/2020 12:00:00 AM EDT Former Smoker completed Former Smoker eCW1 ([facility]) Smoking 12/12/2019 12:00:00 AM EDT - 03/13/2007 12:00:00 AM EST Patient is a former smoker completed Patient is a former smoker ALIREZA ([facility] ) Smoking 10/16/2019 12:00:00 AM EDT Patient is a former smoker completed Patient is a former smoker ALIREZA ([facility]) Alcohol intake 08/27/2019 12:00:00 AM EDT Not Currently completed [facility] Cigarettes smoked current (pack per day) - Reported 08/27/19 20 12:00:00 AM EDT UNK completed [facility] Smoking 08/27/2019 12:00:00 AM EDT Former smoker completed Former smoker [facility] Smoking 08/13/2019 12:00:00 AM EDT Patient is a former smoker completed Patient is a former smoker MEDENT ([facility]) Smoking 07/16/2019 12:00:00 AM EDT Former Smoker completed Former Smoker eCW1 ([facility]) Smoking 07/16/2019 12:00:00 AM EDT Former Smoker completed Former Smoker eCW1 ([facility]) Smoking 07/16/2019 12:00:00 AM EDT Former Smoker completed Former Smoker eCW1 ([facility]) Smoking 07/16/2019 12:00:00 AM EDT Former Smoker completed Former Smoker eCW1 ([facility]) Smoking 07/16/2019 12:00:00 AM EDT Former Smoker completed Former Smoker eCW1 ([facility]) Smoking 07/16/2019 12:00:00 AM EDT Former Smoker completed Former Smoker eCW1 ([facility]) Smoking 07/16/2019 12:00:00 AM EDT Former Smoker completed Former Smoker eCW1 ([facility]) Smoking 07/16/2019 12:00:00 AM EDT Former Smoker completed Former Smoker eCW1 ([facility]) Smoking 07/16/2019 12:00:00 AM EDT Former Smoker completed Former Smoker eCW1 ([facility]) Smoking 07/16/2019 12:00:00 AM EDT Former Smoker completed Former Smoker eCW1 ([facility]) Vital Signs ID Date Data Source UNK Name Value Range Interpretation Code Description Data Source(s) Body mass index (BMI) [Ratio] 59.0 kg/m2 59.0 k g/m2 MEDENT ([facility] ) Body weight 302.00 [lb_av] 302.00 [lb_av] MEDEN T ([facility]) Body height 60 [in_i] 60 [in_i] MEDENT ([facility]) 5'0" Body temperature 96.8 [degF] 96.8 [degF] MEDENT ([facility]) Diastolic blood pressure 64 mm[Hg] 64 mm[Hg] eCW1 ([facility]) Systolic blood pressure 110 mm[Hg] 110 mm[Hg] e CW1 ([facility]) Body temperature 97.0 [degF] 97.0 [degF] eCW1 ( [facility]) Respiratory rate 18 /min 18 /min eCW1 ([facility]) Heart rate 83 /min 83 /min eCW1 ([facility]) Body mass index (BMI) [Ratio] 49.75 kg/m2 49.75 kg/m2 eCW1 ([facility]) Body height 65 [in_i] 65 [in_i] eCW1 ([facility]) Body weight 299 [lb_av] 299 [lb_av] eCW1 ([facility]) Diastolic blood pressure 62 mm[Hg] 62 mm[Hg] eCW1 ([facility]) Systolic blood pressure 112 mm[Hg] 112 mm[Hg] e CW1 ([facility]) Body temperature 98.0 [degF] 98.0 [degF] eCW1 ( [facility]) Respiratory rate 18 /min 18 /min eCW1 ([facility]) Heart rate 93 /min 93 /min eCW1 ([facility]) Body mass index (BMI) [Ratio] 49.09 kg/m2 49.09 kg/m2 eCW1 ([facility]) Body height 65 [in_i] 65 [in_i] eCW1 ([facility]) Body weight 295 [lb_av] 295 [lb_av] eCW1 ([facility]) Diastolic blood pressure 62 mm[Hg] 62 mm[Hg] eCW1 ([facility]) Systolic blood pressure 138 mm[Hg] 138 mm[Hg] e CW1 ([facility]) Body temperature 96.9 [degF] 96.9 [degF] eCW1 ( [facility]) Respiratory rate 20 /min 20 /min eCW1 ([facility]) Heart rate 91 /min 91 /min eCW1 ([facility]) Body mass index (BMI) [Ratio] 49.68 kg/m2 49.68 kg/m2 eCW1 ([facility]) Body height 65 [in_i] 65 [in_i] eCW1 ([facility]) Body weight 298.6 [lb_av] 298.6 [lb_av] eCW1 ([facility]) Diastolic blood pressure 70 mm[Hg] 70 mm[Hg] eCW1 ([facility]) Systolic blood pressure 122 mm[Hg] 122 mm[Hg] e CW1 ([facility]) Body temperature 97.5 [degF] 97.5 [degF] eCW1 ( [facility]) Respiratory rate 18 /min 18 /min eCW1 ([facility]) Heart rate 88 /min 88 /min eCW1 ([facility]) Body mass index (BMI) [Ratio] 48.52 kg/m2 48.52 kg/m2 eCW1 ([facility]) Body height 65 [in_i] 65 [in_i] eCW1 ([facility]) Body weight 291.6 [lb_av] 291.6 [lb_av] eCW1 ([facility]) Diastolic blood pressure 70 mm[Hg] 70 mm[Hg] eCW1 ([facility]) Systolic blood pressure 122 mm[Hg] 122 mm[Hg] e CW1 ([facility]) Body temperature 97.5 [degF] 97.5 [degF] eCW1 ( [facility]) Respiratory rate 18 /min 18 /min eCW1 ([facility]) Heart rate 88 /min 88 /min eCW1 ([facility]) Body mass index (BMI) [Ratio] 48.52 kg/m2 48.52 kg/m2 eCW1 ([facility]) Body height 65 [in_i] 65 [in_i] eCW1 ([facility]) Body weight 291.6 [lb_av] 291.6 [lb_av] eCW1 ([facility]) [place] body weight 120 [lb_av] 120 [lb_av] SIMONA Aguayo ([facility], ) Body height 64 [in_i] 64 [in_i] ALIREZA ([facility], ) 5'4" Oxygen saturation in Arterial blood by Pulse oximetry 95 % 95 % [facility] ([facility], ) Room Air Heart rate 73 /min 73 /min [facility] ([facility], ) Diastolic blood pressure 70 mm[Hg] 70 mm[Hg] MEDEUGENIO ([facility], ) Systolic blood pressure 118 mm[Hg] 118 mm[Hg] M DEYA ([facility], ) Body mass index (BMI) [Ratio] 46.5 kg/m2 46.5 k g/m2 [facility] Body weight 288.00 [lb_av] 288.00 [lb_av] FELECIAEN T ([facility] ) Body height 66 [in_i] 66 [in_i] ALIREZA ([facility]) 5'6" Body temperature 97.7 [degF] 97.7 [degF] [facility] Oxygen saturation in Arterial blood by Pulse oximetry 95 % 95 % [facility] Respiratory rate 18 /min 18 /min [facility] Body temperature 36.39 Claudia 36.39 Claudia [facility] Heart rate 73 /min 73 /min [facility] Diastolic blood pressure 70 mm[Hg] 70 mm[Hg] [facility] Systolic blood pressure 149 mm[Hg] 149 mm[Hg] [facility] Body mass index (BMI) [Ratio] 46.33 kg/m2 46.33 kg/m2 [facility] Body weight 130.2 kg 130.2 kg [facility] Body height 167.6 cm 167.6 cm [facility] Diastolic blood pressure--sitting 55 mm[Hg] 55 mm[Hg] MEDENT ([facility]) CBP large cuff, Ra Systolic blood pressure--sitting 115 mm[Hg] 115 mm[Hg] MEDENT ([facility]) CBP large cuff, Ra Heart rate 65 /min 65 /min MEDENT ([facility]) Body mass index (BMI) [Ratio] 45.7 kg/m2 45.7 k g/m2 MEDENT ([facility]) Body height 66 [in_i] 66 [in_i] MEDENT ([facility]) 5'6" Body weight 283.00 [lb_av] 283.00 [lb_av] MEDEN T ([facility]) Body surface area Derived from formula 2.26 m2 2.26 m2 MEDENT ([facility], ) Body weight 127.008 kg 127.008 kg MEDENT ([facility], ) [place] body weight 120 [lb_av] 120 [lb_av] MEDEN T ([facility], ) Body mass index (BMI) [Ratio] 48.1 kg/m2 48.1 k g/m2 [facility] Body weight 280.00 [lb_av] 280.00 [lb_av] [facility] Body height 64 [in_i] 64 [in_i] [facility] ([facility]) 5'4" Diastolic blood pressure 69 mm[Hg] 69 mm[Hg] [facility] ([facility]) Systolic blood pressure 131 mm[Hg] 131 mm[Hg] [facility] Body temperature 96.8 [degF] 96.8 [degF] [facility] ([facility]) Oxygen saturation in Arterial blood by Pulse oximetry 96 % 96 % [facility] ([facility]) Room Air Heart rate 80 /min 80 /min [facility] ([facility]) Diastolic blood pressure 80 mm[Hg] 80 mm[Hg] [facility] ([facility]) Systolic blood pressure 126 mm[Hg] 126 mm[Hg] [facility] Body weight 127.462 kg 127.462 kg [facility] ([facility]) Body mass index (BMI) [Ratio] 48.2 kg/m2 48.2 k g/m2 [facility] ([facility]) Body weight 281.00 [lb_av] 281.00 [lb_av] [facility] Body height 64 [in_i] 64 [in_i] [facility] ([facility]) 5'4" Diastolic blood pressure 60 mm[Hg] 60 mm[Hg] eCW1 ([facility]) Systolic blood pressure 108 mm[Hg] 108 mm[Hg] e CW1 ([facility]) Body temperature 96.9 [degF] 96.9 [degF] eCW1 ( [facility]) Respiratory rate 20 /min 20 /min eCW1 ([facility]) Heart rate 88 /min 88 /min eCW1 ([facility]) Body mass index (BMI) [Ratio] 46.22 kg/m2 46.22 kg/m2 eCW1 ([facility]) Body height 65 [in_us] 65 [in_us] eCW1 ([facility]) Body weight Measured 277.8 [lb_av] 277.8 [lb_av ] eCW1 ([facility]) Body height 64 [in_i] 64 [in_i] [facility] ([facility], ) 5'4" Oxygen saturation in Arterial blood by Pulse oximetry 95 % 95 % [facility] ([facility], ) Room Air Heart rate 80 /min 80 /min [facility], ) Diastolic blood pressure 70 mm[Hg] 70 mm[Hg] [facility], ) Systolic blood pressure 118 mm[Hg] 118 mm[Hg] M EDENT ([facility], ) Diastolic blood pressure 56 mm[Hg] 56 mm[Hg] eCW1 ([facility]) Systolic blood pressure 106 mm[Hg] 106 mm[Hg] e CW1 ([facility]) Body temperature 97.6 [degF] 97.6 [degF] eCW1 ( [facility]) Respiratory rate 20 /min 20 /min eCW1 ([facility]) Heart rate 90 /min 90 /min eCW1 ([facility]) Body mass index (BMI) [Ratio] 45.82 kg/m2 45.82 kg/m2 W1 ([facility]) Body height 65 [in_us] 65 [in_us] eCW1 ([facility]) Body weight Measured 275.4 [lb_av] 275.4 [lb_av ] eCW1 ([facility]) Body weight 122.472 kg 122.472 kg [facility], ) Body mass index (BMI) [Ratio] 46.3 kg/m2 46.3 k g/m2 [facility] ([facility], ) Body weight 270.00 [lb_av] 270.00 [lb_av] MEDEN T ([facility], ) Body height 64 [in_i] 64 [in_i] [facility], ) 5'4" Diastolic blood pressure 62 mm[Hg] 62 mm[Hg] [facility] ([facility], ) Systolic blood pressure 132 mm[Hg] 132 mm[Hg] [facility] Body mass index (BMI) [Ratio] 43.1 kg/m2 43.1 k g/m2 MEDENT ([facility]) Body weight 267.25 [lb_av] 267.25 [lb_av] MEDEN T ([facility] ) Body height 66 [in_i] 66 [in_i] MEDENT ([facility] ) 5'6" Body temperature 98.3 [degF] 98.3 [degF] MEDENT ([facility]) [place] body weight 135 [lb_av] 135 [lb_av] MEDEN T [facility] Body mass index (BMI) [Ratio] 40.2 kg/m2 40.2 k g/m2 MEDENT ([facility]) Body weight 257.00 [lb_av] 257.00 [lb_av] MEDEN T ([facility], ) Body height 67 [in_i] 67 [in_i] [facility] ([facility]) 5'7" Respiratory rate 14 /min 14 /min [facility] ( [facility]) Heart rate 74 /min 74 /min [facility] ([facility]) Diastolic blood pressure 80 mm[Hg] 80 mm[Hg] [facility] ([facility]) Systolic blood pressure 120 mm[Hg] 120 mm[Hg] M REPLACED BY [facility] ([facility]) Patient Treatment Plan of Care Planned Activity Planned Date Details Description Data Source (s) pregabalin 300 MG Oral Capsule [Lyrica] 03/24/2020 12:00:00 AM EST eCW1 ([facility]) Doxycycline Monohydrate 100 MG Oral Capsule 03/24/2020 12:00:00 AM EST eCW1 ([facility]) pregabalin 300 MG Oral Capsule [Lyrica] 03/24/2020 12:00:00 AM EST eCW1 ([facility]) Doxycycline Monohydrate 100 MG Oral Capsule 03/24/2020 12:00:00 AM EST eCW1 ([facility]) pregabalin 300 MG Oral Capsule [Lyrica] 03/24/2020 12:00:00 AM EST eCW1 ([facility]) Doxycycline Monohydrate 100 MG Oral Capsule 03/24/2020 12:00:00 AM EST eCW1 ([facility]) May Have - 02/27/2020 12:00:00 AM EST e CW1 ([facility]) pregabalin 50 MG Oral Capsule [Lyrica] 02/27/2020 12:00:00 AM EST eCW1 ([facility]) May Have - 02/27/2020 12:00:00 AM EST e CW1 ([facility]) pregabalin 50 MG Oral Capsule [Lyrica] 02/27/2020 12:00:00 AM EST eCW1 ([facility]) May Have - 02/27/2020 12:00:00 AM EST e CW1 ([facility]) pregabalin 50 MG Oral Capsule [Lyrica] 02/27/2020 12:00:00 AM EST eCW1 ([facility]) May Have - 02/27/2020 12:00:00 AM EST e CW1 ([facility]) pregabalin 50 MG Oral Capsule [Lyrica] 02/27/2020 12:00:00 AM EST eCW1 ([facility]) May Have - 02/27/2020 12:00:00 AM EST e CW1 ([facility]) pregabalin 50 MG Oral Capsule [Lyrica] 02/27/2020 12:00:00 AM EST eCW1 ([facility]) pregabalin 50 MG Oral Capsule [Lyrica] 02/27/2020 12:00:00 AM EST eCW1 ([facility]) May Have - 02/27/2020 12:00:00 AM EST e CW1 ([facility]) pregabalin 50 MG Oral Capsule [Lyrica] 02/27/2020 12:00:00 AM EST eCW1 ([facility]) May Have - 02/27/2020 12:00:00 AM EST e CW1 ([facility]) 60 ACTUAT Fluticasone propionate 0.1 MG/ ACTUAT / salmeterol 0.05 MG/ACTUAT Dry Powder Inhaler [Advair] 02/21/2020 12:00:00 AM EST eCW1 ([facility]) Insulin, Aspart, Human 100 UNT/ML Injectable Solution [NovoLog] 02/04/2020 12:00:00 AM EST eCW1 ([facility]) Insulin, Aspart, Human 100 UNT/ML Injectable Solution [NovoLog] 02/04/2020 12:00:00 AM EST eCW1 ([facility]) Insulin, Aspart, Human 100 UNT/ML Injectable Solution [NovoLog] 02/04/2020 12:00:00 AM EST eCW1 ([facility]) Insulin, Aspart, Human 100 UNT/ML Injectable Solution [NovoLog] 02/04/2020 12:00:00 AM EST eCW1 ([facility]) pregabalin 200 MG Oral Capsule [Lyrica] 12/20/2019 12:00:00 AM EDT eCW1 ([facility]) pregabalin 200 MG Oral Capsule [Lyrica] 12/20/2019 12:00:00 AM EDT eCW1 ([facility]) pregabalin 200 MG Oral Capsule [Lyrica] 12/20/2019 12:00:00 AM EDT eCW1 ([facility]) pregabalin 200 MG Oral Capsule [Lyrica] 12/20/2019 12:00:00 AM EDT eCW1 ([facility]) pregabalin 200 MG Oral Capsule [Lyrica] 12/20/2019 12:00:00 AM EDT eCW1 ([facility]) pregabalin 200 MG Oral Capsule [Lyrica] 12/20/2019 12:00:00 AM EDT eCW1 ([facility]) pregabalin 200 MG Oral Capsule [Lyrica] 12/20/2019 12:00:00 AM EDT eCW1 ([facility]) pregabalin 200 MG Oral Capsule [Lyrica] 12/20/2019 12:00:00 AM EDT eCW1 ([facility]) pregabalin 200 MG Oral Capsule [Lyrica] 12/20/2019 12:00:00 AM EDT eCW1 ([facility]) pregabalin 200 MG Oral Capsule [Lyrica] 12/20/2019 12:00:00 AM EDT eCW1 ([facility]) pregabalin 200 MG Oral Capsule [Lyrica] 12/20/2019 12:00:00 AM EDT eCW1 ([facility]) pregabalin 200 MG Oral Capsule [Lyrica] 12/20/2019 12:00:00 AM EDT eCW1 ([facility]) pregabalin 200 MG Oral Capsule [Lyrica] 12/20/2019 12:00:00 AM EDT eCW1 ([facility]) pregabalin 200 MG Oral Capsule [Lyrica] 12/20/2019 12:00:00 AM EDT eCW1 ([facility]) pregabalin 200 MG Oral Capsule [Lyrica] 12/20/2019 12:00:00 AM EDT eCW1 ([facility]) pregabalin 200 MG Oral Capsule [Lyrica] 12/20/2019 12:00:00 AM EDT eCW1 ([facility]) pregabalin 200 MG Oral Capsule [Lyrica] 12/20/2019 12:00:00 AM EDT eCW1 ([facility]) Acetaminophen 325 MG / Hydrocodone Bitartrate 5 MG Ora l Tablet 12/17/2019 12:00:00 AM EDT eCW1 ([facility]) Acetaminophen 325 MG / Hydrocodone Bitartrate 5 MG Ora l Tablet 12/17/2019 12:00:00 AM EDT eCW1 ([facility]) Acetaminophen 325 MG / Hydrocodone Bitartrate 5 MG Ora l Tablet 12/17/2019 12:00:00 AM EDT eCW1 ([facility]) Acetaminophen 325 MG / Hydrocodone Bitartrate 5 MG Ora l Tablet 12/17/2019 12:00:00 AM EDT eCW1 ([facility]) Acetaminophen 325 MG / Hydrocodone Bitartrate 5 MG Ora l Tablet 12/17/2019 12:00:00 AM EDT eCW1 ([facility]) Acetaminophen 325 MG / Hydrocodone Bitartrate 5 MG Ora l Tablet 12/17/2019 12:00:00 AM EDT eCW1 ([facility]) 3 ML Insulin, Aspart, Human 100 UNT/ML Pen Injector [N ovoLog] 09/11/2019 12:00:00 AM EDT eCW1 ([facility]) 3 ML Insulin, Aspart, Human 100 UNT/ML Pen Injector [N ovoLog] 09/11/2019 12:00:00 AM EDT eCW1 ([facility]) 3 ML Insulin, Aspart, Human 100 UNT/ML Pen Injector [N ovoLog] 09/11/2019 12:00:00 AM EDT eCW1 ([facility]) 3 ML Insulin, Aspart, Human 100 UNT/ML Pen Injector [N ovoLog] 09/11/2019 12:00:00 AM EDT eCW1 ([facility]) 3 ML Insulin, Aspart, Human 100 UNT/ML Pen Injector [N ovoLog] 09/11/2019 12:00:00 AM EDT eCW1 ([facility]) 3 ML Insulin, Aspart, Human 100 UNT/ML Pen Injector [N ovoLog] 09/11/2019 12:00:00 AM EDT eCW1 ([facility]) 3 ML Insulin, Aspart, Human 100 UNT/ML Pen Injector [N ovoLog] 09/11/2019 12:00:00 AM EDT eCW1 ([facility]) 3 ML Insulin, Aspart, Human 100 UNT/ML Pen Injector [N ovoLog] 09/11/2019 12:00:00 AM EDT eCW1 ([facility]) Cymbalta 60 MG 09/09/2019 12:00:00 AM EDT eCW1 ([facility]) Cymbalta 60 MG 09/09/2019 12:00:00 AM EDT eCW1 ([facility]) Cymbalta 60 MG 09/09/2019 12:00:00 AM EDT eCW1 ([facility]) Cymbalta 60 MG 09/09/2019 12:00:00 AM EDT eCW1 ([facility]) Cymbalta 60 MG 09/09/2019 12:00:00 AM EDT eCW1 ([facility]) Cymbalta 60 MG 09/09/2019 12:00:00 AM EDT eCW1 ([facility]) Cymbalta 60 MG 09/09/2019 12:00:00 AM EDT eCW1 ([facility]) Cymbalta 60 MG 09/09/2019 12:00:00 AM EDT eCW1 ([facility]) 24 HR Isosorbide Mononitrate 30 MG Extended Release Or al Tablet 08/23/2019 12:00:00 AM EDT [facility] - 08/09/2019 12:00:00 AM EDT eCW1 ([facility]) [facility] - 08/09/2019 12:00:00 AM EDT eCW1 ([facility]) [facility] - 08/09/2019 12:00:00 AM EDT eCW1 ([facility]) [facility] - 08/09/2019 12:00:00 AM EDT eCW1 ([facility]) [facility] - 08/09/2019 12:00:00 AM EDT eCW1 ([facility]) [facility] - 08/09/2019 12:00:00 AM EDT [facility]CW1 [facility] 12:00:00 AM EDT eCW1 ([facility]) [facility] - 08/09/2019 12:00:00 AM EDT eCW1 ([facility]) [facility] - 08/09/2019 12:00:00 AM EDT eCW1 ([facility]) [facility] 12:00:00 AM EDT eCW1 [facility]) [facility] 12:00:00 AM EDT eCW1 ([facility]) BD AutoShield Duo 30G X 5 MM 08/07/2019 12:00:00 AM EDT eCW1 ([facility]) BD AutoShield Duo 30G X 5 MM 08/07/2019 12:00:00 AM EDT eCW1 ([facility]) BD AutoShield Duo 30G X 5 MM 08/07/2019 12:00:00 AM EDT eCW1 ([facility]) BD AutoShield Duo 30G X 5 MM 08/07/2019 12:00:00 AM EDT eCW1 ([facility]) valsartan 80 MG Oral Tablet 08/07/2019 12:00:00 AM EDT eCW1 ([facility]) 200 ACTUAT Albuterol 0.09 MG/ACTUAT Metered Dose Inhal er [ProAir] 08/07/2019 12:00:00 AM EDT eCW1 ([facility]) BD AutoShield Duo 30G X 5 MM 08/07/2019 12:00:00 AM EDT eCW1 ([facility]) valsartan 80 MG Oral Tablet 08/07/2019 12:00:00 AM EDT eCW1 ([facility]) 200 ACTUAT Albuterol 0.09 MG/ACTUAT Metered Dose Inhal er [ProAir] 08/07/2019 12:00:00 AM EDT eCW1 ([facility]) BD AutoShield Duo 30G X 5 MM 08/07/2019 12:00:00 AM EDT eCW1 ([facility]) valsartan 80 MG Oral Tablet 08/07/2019 12:00:00 AM EDT eCW1 ([facility]) 200 ACTUAT Albuterol 0.09 MG/ACTUAT Metered Dose Inhal er [ProAir] 08/07/2019 12:00:00 AM EDT eCW1 ([facility]) BD AutoShield Duo 30G X 5 MM 08/07/2019 12:00:00 AM EDT eCW1 ([facility]) 200 ACTUAT Albuterol 0.09 MG/ACTUAT Metered Dose Inhal er [ProAir] 08/07/2019 12:00:00 AM EDT eCW1 ([facility]) BD AutoShield Duo 30G X 5 MM 08/07/2019 12:00:00 AM EDT eCW1 ([facility]) valsartan 80 MG Oral Tablet 08/07/2019 12:00:00 AM EDT eCW1 ([facility]) 200 ACTUAT Albuterol 0.09 MG/ACTUAT Metered Dose Inhal er [ProAir] 08/07/2019 12:00:00 AM EDT eCW1 ([facility]) BD AutoShield Duo 30G X 5 MM 08/07/2019 12:00:00 AM EDT eCW1 ([facility]) valsartan 80 MG Oral Tablet 08/07/2019 12:00:00 AM EDT eCW1 ([facility]) 200 ACTUAT Albuterol 0.09 MG/ACTUAT Metered Dose Inhal er [ProAir] 08/07/2019 12:00:00 AM EDT eCW1 ([facility]) 200 ACTUAT Albuterol 0.09 MG/ACTUAT Metered Dose Inhal er [ProAir] 08/07/2019 12:00:00 AM EDT eCW1 ([facility]) valsartan 80 MG Oral Tablet 08/07/2019 12:00:00 AM EDT eCW1 ([facility]) 200 ACTUAT Albuterol 0.09 MG/ACTUAT Metered Dose Inhal er [ProAir] 08/07/2019 12:00:00 AM EDT eCW1 ([facility]) BD AutoShield Duo 30G X 5 MM 08/07/2019 12:00:00 AM EDT eCW1 ([facility]) valsartan 80 MG Oral Tablet 08/07/2019 12:00:00 AM EDT eCW1 ([facility]) valsartan 80 MG Oral Tablet 08/07/2019 12:00:00 AM EDT eCW1 ([facility]) 200 ACTUAT Albuterol 0.09 MG/ACTUAT Metered Dose Inhal er [ProAir] 08/07/2019 12:00:00 AM EDT eCW1 ([facility]) BD AutoShield Duo 30G X 5 MM 08/07/2019 12:00:00 AM EDT eCW1 ([facility]) 200 ACTUAT Albuterol 0.09 MG/ACTUAT Metered Dose Inhal er [ProAir] 08/07/2019 12:00:00 AM EDT eCW1 ([facility]) valsartan 80 MG Oral Tablet 08/07/2019 12:00:00 AM EDT eCW1 ([facility]) BD AutoShield Duo 30G X 5 MM 08/07/2019 12:00:00 AM EDT eCW1 ([facility]) 200 ACTUAT Albuterol 0.09 MG/ACTUAT Metered Dose Inhal er [ProAir] 08/07/2019 12:00:00 AM EDT eCW1 ([facility]) valsartan 80 MG Oral Tablet 08/07/2019 12:00:00 AM EDT eCW1 ([facility]) BD AutoShield Duo 30G X 5 MM 08/07/2019 12:00:00 AM EDT eCW1 ([facility]) valsartan 80 MG Oral Tablet 08/07/2019 12:00:00 AM EDT eCW1 ([facility]) [place] - 07/30/2019 12:00:00 AM EDT e CW1 ([facility]) [place] - 07/30/2019 12:00:00 AM EDT e CW1 ([facility]) [place] - 07/30/2019 12:00:00 AM EDT e CW1 ([facility]) [place] - 07/30/2019 12:00:00 AM EDT e CW1 ([facility]) [place] - 07/30/2019 12:00:00 AM EDT e CW1 ([facility]) [place] - 07/30/2019 12:00:00 AM EDT e CW1 ([facility]) [place] - 07/30/2019 12:00:00 AM EDT e CW1 ([facility]) [place] - 07/30/2019 12:00:00 AM EDT e CW1 ([facility]) [place] - 07/30/2019 12:00:00 AM EDT e CW1 ([facility]) [place] - 07/30/2019 12:00:00 AM EDT e CW1 ([facility]) [place] - 07/30/2019 12:00:00 AM EDT e CW1 ([facility]) [place] - 07/18/2019 12:00:00 AM EDT e CW1 ([facility]) May Have - 07/16/2019 12:00:00 AM EDT e CW1 ([facility]) May Have - 07/16/2019 12:00:00 AM EDT e CW1 ([facility]) May Have - 07/16/2019 12:00:00 AM EDT e CW1 ([facility]) May Have - 07/16/2019 12:00:00 AM EDT e CW1 ([facility]) May Have - 07/16/2019 12:00:00 AM EDT e CW1 ([facility]) pregabalin 150 MG Oral Capsule [Lyrica] 07/16/2019 12:00:00 AM EDT eCW1 ([facility]) May Have - 07/16/2019 12:00:00 AM EDT e CW1 ([facility]) May Have - 07/16/2019 12:00:00 AM EDT e CW1 ([facility]) May Have - 07/16/2019 12:00:00 AM EDT e CW1 ([facility]) pregabalin 150 MG Oral Capsule [Lyrica] 07/16/2019 12:00:00 AM EDT eCW1 ([facility]) May Have - 07/16/2019 12:00:00 AM EDT e CW1 ([facility]) May Have - 07/16/2019 12:00:00 AM EDT e CW1 ([facility]) pregabalin 150 MG Oral Capsule [Lyrica] 07/16/2019 12:00:00 AM EDT eCW1 ([facility]) May Have - 07/16/2019 12:00:00 AM EDT e CW1 ([facility]) pregabalin 150 MG Oral Capsule [Lyrica] 07/16/2019 12:00:00 AM EDT eCW1 ([facility]) pregabalin 150 MG Oral Capsule [Lyrica] 07/16/2019 12:00:00 AM EDT eCW1 ([facility]) pregabalin 150 MG Oral Capsule [Lyrica] 07/16/2019 12:00:00 AM EDT eCW1 ([facility]) 8 HR Acetaminophen 650 MG Extended Release Oral Tablet [Tylenol] 07/04/2019 12:00:00 AM EDT eCW1 ([facility]) 8 HR Acetaminophen 650 MG Extended Release Oral Tablet [Tylenol] 07/04/2019 12:00:00 AM EDT eCW1 ([facility]) 8 HR Acetaminophen 650 MG Extended Release Oral Tablet [Tylenol] 07/04/2019 12:00:00 AM EDT eCW1 ([facility]) 8 HR Acetaminophen 650 MG Extended Release Oral Tablet [Tylenol] 07/04/2019 12:00:00 AM EDT eCW1 ([facility]) 8 HR Acetaminophen 650 MG Extended Release Oral Tablet [Tylenol] 07/04/2019 12:00:00 AM EDT eCW1 ([facility]) 8 HR Acetaminophen 650 MG Extended Release Oral Tablet [Tylenol] 07/04/2019 12:00:00 AM EDT eCW1 ([facility]) 8 HR Acetaminophen 650 MG Extended Release Oral Tablet [Tylenol] 07/04/2019 12:00:00 AM EDT eCW1 ([facility]) 8 HR Acetaminophen 650 MG Extended Release Oral Tablet [Tylenol] 07/04/2019 12:00:00 AM EDT eCW1 ([facility]) 8 HR Acetaminophen 650 MG Extended Release Oral Tablet [Tylenol] 07/04/2019 12:00:00 AM EDT eCW1 ([facility]) 8 HR Acetaminophen 650 MG Extended Release Oral Tablet [Tylenol] 07/04/2019 12:00:00 AM EDT eCW1 ([facility]) 8 HR Acetaminophen 650 MG Extended Release Oral Tablet [Tylenol] 07/04/2019 12:00:00 AM EDT eCW1 ([facility]) 8 HR Acetaminophen 650 MG Extended Release Oral Tablet [Tylenol] 07/04/2019 12:00:00 AM EDT eCW1 ([facility]) 8 HR Acetaminophen 650 MG Extended Release Oral Tablet [Tylenol] 07/04/2019 12:00:00 AM EDT eCW1 ([facility]) 8 HR Acetaminophen 650 MG Extended Release Oral Tablet [Tylenol] 07/04/2019 12:00:00 AM EDT eCW1 ([facility]) 8 HR Acetaminophen 650 MG Extended Release Oral Tablet [Tylenol] 07/04/2019 12:00:00 AM EDT eCW1 ([facility]) 8 HR Acetaminophen 650 MG Extended Release Oral Tablet [Tylenol] 07/04/2019 12:00:00 AM EDT eCW1 ([facility]) 8 HR Acetaminophen 650 MG Extended Release Oral Tablet [Tylenol] 07/04/2019 12:00:00 AM EDT eCW1 ([facility]) 8 HR Acetaminophen 650 MG Extended Release Oral Tablet [Tylenol] 07/04/2019 12:00:00 AM EDT eCW1 ([facility]) 8 HR Acetaminophen 650 MG Extended Release Oral Tablet [Tylenol] 07/04/2019 12:00:00 AM EDT eCW1 ([facility]) 8 HR Acetaminophen 650 MG Extended Release Oral Tablet [Tylenol] 07/04/2019 12:00:00 AM EDT eCW1 ([facility]) 8 HR Acetaminophen 650 MG Extended Release Oral Tablet [Tylenol] 07/04/2019 12:00:00 AM EDT eCW1 ([facility]) 8 HR Acetaminophen 650 MG Extended Release Oral Tablet [Tylenol] 07/04/2019 12:00:00 AM EDT eCW1 ([facility]) 8 HR Acetaminophen 650 MG Extended Release Oral Tablet [Tylenol] 07/04/2019 12:00:00 AM EDT eCW1 ([facility]) 8 HR Acetaminophen 650 MG Extended Release Oral Tablet [Tylenol] 07/04/2019 12:00:00 AM EDT eCW1 ([facility]) 8 HR Acetaminophen 650 MG Extended Release Oral Tablet [Tylenol] 07/04/2019 12:00:00 AM EDT eCW1 ([facility]) 8 HR Acetaminophen 650 MG Extended Release Oral Tablet [Tylenol] 07/04/2019 12:00:00 AM EDT eCW1 ([facility]) 8 HR Acetaminophen 650 MG Extended Release Oral Tablet [Tylenol] 07/04/2019 12:00:00 AM EDT eCW1 ([facility]) 8 HR Acetaminophen 650 MG Extended Release Oral Tablet [Tylenol] 07/04/2019 12:00:00 AM EDT eCW1 ([facility]) 8 HR Acetaminophen 650 MG Extended Release Oral Tablet [Tylenol] 07/04/2019 12:00:00 AM EDT eCW1 ([facility]) 8 HR Acetaminophen 650 MG Extended Release Oral Tablet [Tylenol] 07/04/2019 12:00:00 AM EDT eCW1 ([facility]) 8 HR Acetaminophen 650 MG Extended Release Oral Tablet [Tylenol] 07/04/2019 12:00:00 AM EDT eCW1 ([facility]) May Have - 06/11/2019 12:00:00 AM EDT e CW1 ([facility]) Metoprolol Tartrate 50 MG Oral Tablet 08/22/2016 12:00:00 AM EDT [facility] 60 ACTUAT Fluticasone propionate 0.5 MG/ ACTUAT / salmeterol 0.05 MG/ACTUAT Dry Powder Inhaler [Advair] 08/22/2016 12:00:00 AM EDT [facility] Simvastatin 40 MG Oral Tablet 08/22/2016 12:00:00 AM EDT [facility] insulin human, isophane 70 UNT/ML / Regu lar Insulin, Human 30 UNT/ML Injectable Suspension 06/14/2016 12:00:[address] [facility] [place] Lidocaine 0.05 MG/MG Topical Ointment 05/27/2016 12:00:00 AM EDT [facility] terbinafine 250 MG Oral Tablet 05/26/2016 12:00:00 AM EDT [facility] Trazodone Hydrochloride 50 MG Oral Tablet 03/21/2016 12:00:00 AM ES T [facility] Metformin hydrochloride 1000 MG Oral Tablet 02/12/2016 12:00:00 AM EST [facility] Lisinopril 40 MG Oral Tablet 02/12/2016 12:00:00 AM EST [facility] INSULIN SYRINGE .5CC/28G 28G X 1/2" 0.5 ML MISC 12/17/2015 12:00:00 AM EDT [facility] Ergocalciferol 49507 UNT Oral Capsule 11/18/2015 12:00:00 AM EDT [facility] 24 HR Isosorbide Mononitrate 30 MG Extended Release Oral Tablet [facility] clopidogrel 75 MG Oral Tablet [facility]
[2020-04-12 13:16] LABS: ALBUMIN 3.3 GM/DL (3.2-5.2); ALT/SGPT 55 U/L (12-78); BILIRUBIN,DIRECT 0.1 MG/DL (0.0-0.2); BILIRUBIN,TOTAL 0.3 MG/DL (0.2-1.0); BLOOD UREA NITROGEN 26 MG/DL (7-18); CALCIUM LEVEL 8.9 MG/DL (8.8-10.2); CARBON DIOXIDE LEVEL 30 MEQ/L (21-32); CHLORIDE LEVEL 103 MEQ/L (98-107); CK-MB VALUE MASS 3.9 NG/ML (<3.6); CPK CREATINE PHOSPHOKINASE 411 U/L (26-192); GLOMERULAR FILTRATION RATE 47.6 (>45); GLUCOSE, FASTING 280 MG/DL (70-100); LIPASE 108 U/L (73-393); MB/CK RELATIVE INDEX 0.95 (< OR =4); POTASSIUM SERUM 4.3 MEQ/L (3.5-5.1); SODIUM LEVEL 138 MEQ/L (136-145); TOTAL PROTEIN 6.4 GM/DL (6.4-8.2); TROPONIN I < 0.02 NG/ML (< 0.10)
[2020-04-12] MEDS ORDERED: ISOVUE-370 76% 100ML VIAL As Ordered ONE (13:53)
--- NOTE | 2020-04-12 14:31 | REP ---
INDICATION: r/o PE. COMPARISON: Comparison study December 25, 2018.. TECHNIQUE: Contrast dose: 75 ML of Isovue [address] technique: Helical scanning is acquired and overlapping 1.5 mm and contiguous 3 mm axial images are reformatted. In addition, maximum intensity projection and multiplanar re-formation images are generated in sagittal and coronal imaging projections. FINDINGS: There is good opacification in the pulmonary arterial tree. There is no evidence of vessel cut off or filling defect to suggest pulmonary embolus. Homogeneous opacity is seen in the thoracic aorta. There is no evidence of aneurysm or dissection. Lung window settings demonstrate the lung xiao are free of infiltrate, nodule or mass lesion. There is a tiny granuloma in the right upper lobe. No significant pulmonary nodule is seen. There are small subpleural blebs in the apices bilaterally. Mild vascular calcification is observed. There is no evidence of hilar or mediastinal mass or adenopathy. In the upper abdomen, there is moderate diffuse fatty infiltration of the liver. Normal adrenal glands are seen. Visualized upper abdominal structures are otherwise unremarkable. No acute rib fracture or bony destructive lesion is seen. There are several old appearing rib fractures on the right anteriorly. These are unchanged from the comparison CT study. IMPRESSION: No CT evidence of pulmonary embolus. Moderate diffuse fatty infiltration of the liver. No active cardiopulmonary disease seen. <Electronically signed by Jassi Moran > 04/12/20 [id number]
[2020-04-12 15:19] VITALS: BP 133/61
--- NOTE | 2020-04-13 20:32 | ECGEPIP ---
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
== END 2020-04-12 16:10 | disposition home or self-care (01) ==
LOC: M ED 11:31 → EDBD 11:31 → M ED 16:10
DX: R07.89 Other chest pain (principal); E11.9 Type 2 diabetes mellitus without complications; I12.9 Hypertensive chronic kidney disease with stage 1 through stage 4 chronic kidney disease, or unspecified chronic kidney disease; N18.30 Chronic kidney disease, stage 3 unspecified; J44.9 Chronic obstructive pulmonary disease, unspecified; E78.5 Hyperlipidemia, unspecified; F33.9 Major depressive disorder, recurrent, unspecified; F41.9 Anxiety disorder, unspecified; G47.33 Obstructive sleep apnea (adult) (pediatric); Z99.89 Dependence on other enabling machines and devices; G25.81 Restless legs syndrome; Z86.711 Personal history of pulmonary embolism; Z86.718 Personal history of other venous thrombosis and embolism; Z79.899 Other long term (current) drug therapy; Z79.4 Long term (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; Z79.01 Long term (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 anticoagulants; Z88.1 Allergy status to other antibiotic agents; Z88.5 Allergy status to narcotic agent; Z88.8 Allergy status to other drugs, medicaments and biological substances; Z91.040 Latex allergy status; Z91.048 Other nonmedicinal substance allergy status; Z87.891 Personal history of nicotine dependence
CPT/HCPCS: 36415; 71045; 71275; 80048; 80076; 82550; 82553; 83690; 84484; 85025; 93005; 93041; 94760; 99285; Q9967

== ENCOUNTER → 2020-04-13 | Outpatient (REF) | payer OTHER, MEDICAID | PROVIDERS: ATTEND Internal Medicine | DX: Z20.822 Contact with and (suspected) exposure to COVID-19 (principal) ==

== ENCOUNTER → 2020-04-20 | Outpatient (REF) | payer OTHER, MEDICAID ==
[~2020-04-20] MED LIST changes: -LISI-542; -LISI-542 PO; +LISI-898; +LISI-898 PO; -LISI40TA PO; +LISI40TA4 PO; +PRED20TA PO; +PREG300C PO
== END ==
PROVIDERS: ATTEND Internal Medicine
DX: Z20.822 Contact with and (suspected) exposure to COVID-19 (principal)

== ENCOUNTER 2020-04-22 10:41 | Emergency (ER) | payer MEDICARE, MEDICAID ==
[~2020-04-22] VITALS: Ht 167.6 cm; Wt 142.6 kg
[~2020-04-22 10:41] MED LIST changes: -PRED20TA PO; -PREG300C PO
[2020-04-22 11:11] LABS: BASO # 0.1 10^3/uL (0.0-0.2); BASO % 0.9 % (0.0-1.0); EOS # 0.1 10^3/uL (0.0-0.5); EOS % 2.4 % (0.0-3.0); HEMATOCRIT 34.3 % (36.0-47.0); LYMPH % 34.2 % (24.0-44.0); MEAN CORPUSCULAR HEMOGLOBIN 27.8 pg (27.0-33.0); MEAN CORPUSCULAR HGB CONC 32.1 g/dl (32.0-36.5); MEAN CORPUSCULAR VOLUME 86.8 fl (80.0-96.0); MONO # 0.5 10^3/uL (0.0-0.8); MONO % 8.3 % (0.0-5.0); NEUTROPHILS # 3.2 10^3/uL (1.5-8.5); NEUTROPHILS % 53.7 % (36.0-66.0); PLATELET COUNT, AUTOMATED 224 10^3/uL (150-450); RED BLOOD COUNT 3.95 10^6/uL (4.00-5.40); WHITE BLOOD COUNT 5.9 10^3/uL (4.0-10.0)
--- NOTE | 2020-04-22 11:30 | REP ---
INDICATION: CHEST PAIN COMPARISON: 04/12/2020 TECHNIQUE: Portable AP view of the chest FINDINGS: The mediastinum and cardiac silhouette are stable and within normal limits for portable technique. The lung xiao are clear without acute consolidation, effusion, or pneumothorax. Skeletal structures are intact. IMPRESSION: No focal consolidation or effusion. <Electronically signed by Hussein Barbosa > 04/22/20 [id number]
[2020-04-22] MEDS ORDERED: NOVOINJ3 SC ×2 (11:34)
[2020-04-22] MEDS ORDERED: PREG300C PO (11:34)
[2020-04-22 11:58] LABS: ALBUMIN 3.5 GM/DL (3.2-5.2); ALT/SGPT 48 U/L (12-78); BILIRUBIN,DIRECT < 0.1 MG/DL (0.0-0.2); BILIRUBIN,TOTAL 0.2 MG/DL (0.2-1.0); BLOOD UREA NITROGEN 23 MG/DL (7-18); CALCIUM LEVEL 9.1 MG/DL (8.8-10.2); CARBON DIOXIDE LEVEL 27 MEQ/L (21-32); CHLORIDE LEVEL 105 MEQ/L (98-107); CREATININE FOR GFR 1.27 MG/DL (0.55-1.30); GLOMERULAR FILTRATION RATE 44.5 (>45); GLUCOSE, FASTING 264 MG/DL (70-100); LIPASE 103 U/L (73-393); NT-PRO BNP 400 PG/ML (<125); POTASSIUM SERUM 4.3 MEQ/L (3.5-5.1); SODIUM LEVEL 140 MEQ/L (136-145); TOTAL PROTEIN 6.7 GM/DL (6.4-8.2)
--- OUTSIDE RECORDS SUMMARY | 2020-04-22 12:10 | CCD ---
Author Author [facility] Organization [facility] Address Unknown Phone Unavailable Care Team Providers Care Log Processor Operator Name Role Phone Hilda Castanon Unavailable PROBLEMS Type Condition ICD9-CM Code [id number] Code Onset Dates Condition S tatus W/U Status Risk SNOMED Code Notes Problem Rheumatoid factor positive R76.8 Active confirmed 424860928 Problem Trigger finger of both hands M65.30 Active con firmed [id number] Problem Arthralgia, unspecified joint M25.50 Active confirm ed 27841089 Problem Hyperplastic colonic polyp, unspecified part of colon K63.5 Active confirmed 133239015 Problem Current mild episode of kirby r depressive disorder, unspecified whether recurrent F32.0 Active confirmed 10754576 Problem Vitamin D deficiency E55.9 Active confirmed 14539287 Problem Cervical cancer screening Z12.4 Active confirmed 877207312 Problem Primary osteoarthritis of both knees M17.0 Act chris confirmed 985315250 Problem Diabetic polyneuropathy associated with type 2 d iabetes mellitus E11.42 Active confirmed 189632478 Problem Pre-syncope R55 Active confirmed 84990046 0 Problem Constipation, unspecified constipation type K59.00 Active confirmed 57007547 Problem DDD (degenerative disc disease), lumbar M51.36 Active confirmed 31000867 Problem Gastroesophageal reflux disease, esophagitis pre sence not specified K21.9 Active confirmed 431423762 Problem Breast cancer screening Z12.39 Active confirmed 152972833 Problem Essential hypertension I10 Active confirmed 90548524 Problem Personal history of pulmonary embolism Z86.711 A ctive confirmed 703984745 Problem prison (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 Z79.4 Activ e confirmed 162716487 Problem Chronic kidney disease, stage 3 (moderate) N18.3 Active confirmed 698072907 Problem Chronic obstructive pulmonary disease, unspecified COPD ty pe J44.9 Active confirmed 00916683 Problem Seasonal allergic rhinitis due to pollen J30.1 Active confirmed 94492390 Problem Hiatal hernia K44.9 Active confirmed 155187 09 Problem Adenomatous polyp of ascending colon D12.2 Act chris confirmed 299030680 Problem H/O deep venous thrombosis Z86.718 Active confirmed 364957308 Problem Mixed hyperlipidemia E78.2 Active confirmed 851205544 Problem Type 2 diabetes mellitus with diabetic chronic kidney disease E11.22 Active confirmed 96202558 Problem History of pulmonary embolus (PE) Z86.711 Active confirmed 978095153 Problem Fatty liver K76.0 Active confirmed 39880163 7 ALLERGIES Allergen (clinical drug ingredient) Drug/Non Drug Allergy do cumented on EMR Reaction Allergy Type Onset Date Status Metoprolol & Diet Manage Prod Unknown Drug Allergy Active rubber Unknown Non Drug Allergy Active Motrin constipation Drug Allergy Active Quinolone Unknown Non Drug Allergy Active Latex Unknown Non Drug Allergy Active adhesive tape Unknown Non Drug Allergy Activ e ENCOUNTERS from 1950 to 2020-04-16 Encounter Location Date Provider Diagnosis [address] [address] Mar, Hilda Castanon Chronic obstructive pulmonary disease, u nspecified COPD type J44.9 ; Paronychia of left ring finger L03.012 ; Paronychia of right ring finger L03.011 ; Abscess of right middle finger L02.511 ; Gastroesophageal reflux disease, esophagitis presence not specified K21.9 ; Fatty liver K76.0 ; Essential hypertension I10 and Personal history of pulmonary embolism Z86.711 IMMUNIZATIONS No Information SOCIAL HISTORY Tobacco Use: Social History Observation Description Date Details (start date - stop date) Former Smoker Sex Assigned At : Social History Observation Description Sex Assigned At Unknown Audit Question Answer Notes Total Score: 0 Interpretation: Alcohol Education Language: Question Answer Notes Languages spoken: Faroese Advent: Question Answer Notes Advent No druze beliefs that would impact health care. Sexual [...] FOR REFERRAL No Information VITAL SIGNS Weight 302.4 lbs Mar, Height 65 in Mar, BMI 50.32 kg/m2 Mar, Heart Rate 84 /min Mar, Respiratory Rate 20 /min Mar, Temperature 97.9 degrees Fahrenheit Mar, Oximetry 95 Mar, Blood pressure systolic 144 mm Hg Mar, Blood pressure diastolic 70 mm Hg Mar, MEDICATIONS Medication SIG (Take, Route, Frequency, Duration) Notes Start Da te End Date Status Acetaminophen 8 Hour Acti ve May Have - wedge pillow nightly before bedtime for 999 days Feb, Active Eliquis 5 MG 1 tab Orally bid Active BD AutoShield Duo 30G X 5 MM DX E11.22 In vitro bid for 30 Days July, Active Milk of Magnesia 400 MG/5ML 5 ml at least 4 hours betw een doses as needed Orally Four times a day Active Omeprazole 40 MG 1 capsule Orally Once a day Active Victoza 18 MG/3ML 1.2 units Subcutaneous Daily Active ProAir HFA 108 (90 Base) MCG/ACT 2 puff as needed Inha lation every 4 hrs: keep at bedside for 30 Days July, Active Lyrica 300 MG 1 capsule in the evening 1 t o 3 hours before bedtime Orally bid for 30 Days Mar, Active Fluticasone Propionate 50 MCG/ACT 2 spray in each nost ril Nasally Once a day for 30 days Active Advair Diskus 100-50 MCG/DOSE 1 puff Inhalation Twice a day for 30 Days Feb, Active Tylenol 8 Hour Arthritis Pain 650 MG 1 tab Orally bid 23 A 2019 Active Voltaren 1 % as directed Externally Active Lyrica 200 MG 1 capsule 1 to 3 hours before bedtime Orally bid for 30 Days Dec, Active May Have - rolator _ Daily for 999 days Active NovoLog 100 UNIT/ML as directed; MDD 116units Campuzano bcutaneous SScale for 8am, 12noon; Diff. SScale for HS for 30 Days Jan, Active Walker - 4 wheeled walker with seat DX M51.36 for 999 days July, Active Lyrica 300 MG 1 capsule Orally bid for 30 Days Active Potassium Chloride Padmini ER 20 MEQ 1 tablet with food Orally Once a da y Active Cerovite Senior - 1 tab Orally Daily for 30 Days 08 August, 020 Active Vitamin D3 40986 UNIT 1 capsule Orally Active Losartan Potassium 50 MG 1 tablet Orally Once a day Active Acetaminophen 325 MG 1 tablet as needed Orally every 4 hrs Active Advair Diskus 100-50 MCG/DOSE as directed Inhalation Active Vascepa 1 GM 2 capsules with meals Orally Twice a day for 30 day(s) Active July Have - compression stocking 15mmhg circ. at calf 43cm, size 12 shoe women's entire sock included topically Daily while out of bed for 999 days July, Active Cymbalta 60 MG 1 cap po twice daily for 30 Days Aug, 20 Active Lantus SoloStar 100 UNIT/ML 74u at Qam, 40u at HS Subc utaneous bid: MDD 114U for 30 days Active Multivitamin & Mineral _ 1 tab orally Daily for 30 Days Active Albuterol Sulfate (2.5 MG/3ML) 0.083% 3 ml as needed I nhalation every 8 hrs for 30 Days Active Chlorthalidone 25 MG 1 tab Orally Once a day Active Norvasc 5mg 1 tab orally Daily Activ e PROCEDURES No Information RESULTS No Results REASON FOR VISIT follow up MEDICAL (GENERAL) HISTORY Type Description Date Medical [...] Treatment Notes Treatm ent Clinical Notes Mar, Chronic obstructive pulmonar y disease, unspecified COPD type (ICD- 10 - J44.9) She is breathing well currently Mar, Paronychia of left ring finger (ICD-10 - L03.012 ) resolved Mar, Paronychia of right ring finger (ICD-10 - L03.01 1) resolved Mar, Abscess of right middle finger (ICD-10 - L02.511 ) resolved Mar, Gastroesophageal reflux dise ase, esophagitis presence not specified (ICD-10 - K21.9) much improved on ppi Mar, Fatty liver (ICD-10 - K76.0) Encouraged wt. loss Mar, Essential hypertension (ICD-10 - I10) Controlled Mar, Personal history of pulmonary embolism (ICD-10 - Z86.711) Cont. curernt rx no new symps. Mar, Other Encouraged howard grix vaccine at pharm. PLAN OF TREATMENT Medication Medication Name Sig Start Date Stop Date Chlorthalidone 25 MG 1 tab Orally Once a day Norvasc 5mg 1 tab orally Daily Advair Diskus 100-50 MCG/DOSE as directed Inhalation Losartan Potassium 50 MG 1 tablet Orally Once a day Eliquis 5 MG 1 tab Orally bid Omeprazole 40 MG 1 capsule Orally Once a day Treatment Notes Assessment Notes Clinical Notes Chronic obstructive pulmonary disease, unspecified COPD type She is breathing well currently Paronychia of left ring finger resolved Paronychia of right ring finger resolved Abscess of right middle finger resolved Gastroesophageal reflux disease, esophagitis presence not sp ecified much improved on ppi Fatty liver Encouraged wt. loss Essential hypertension Controlled Personal history of pulmonary embolism C ont. curernt rx no new symps. Next Appt Details Annual cSSV pt. in 6Mos. Reason: Provider Name:Hilda Castanon, 2- 09:30:00 AM, [address] [place] [address], [phone], Provider Name:Gerard Alas, 2020-05-26 0 1:15:00 PM, [address] [place] [address], [phone], Provider Name:Hilda Castanon, 10-07 09:30:00 AM, [address] [place] [address], [phone], Insurance Providers Payer Name Payer Address Payer Phone Insured Name Patient Relati onship to Insured Coverage Start Date Coverage End Date [employer] GOLD [address] [address] [facility] [phone] [place] [employer] [address] [facility] [address] [place]
--- OUTSIDE RECORDS SUMMARY | 2020-04-22 12:10 | CCD ---
Author Author [facility] Organization [facility] Address Unknown Phone Unavailable Care Team Providers Care Legal Advisor Name Role Phone Hilda Castanon Unavailable PROBLEMS Type Condition ICD9-CM Code [id number] Code Onset Dates Condition S tatus W/U Status Risk SNOMED Code Notes Problem Rheumatoid factor positive R76.8 Active confirmed 063849877 Problem Trigger finger of both hands M65.30 Active con firmed [id number] Problem Arthralgia, unspecified joint M25.50 Active confirm ed 12899785 Problem Hyperplastic colonic polyp, unspecified part of colon K63.5 Active confirmed 195781331 Problem Current mild episode of kirby r depressive disorder, unspecified whether recurrent F32.0 Active confirmed 49340717 Problem Vitamin D deficiency E55.9 Active confirmed 35593683 Problem Cervical cancer screening Z12.4 Active confirmed 805033809 Problem Primary osteoarthritis of both knees M17.0 Act chris confirmed 080145261 Problem Diabetic polyneuropathy associated with type 2 d iabetes mellitus E11.42 Active confirmed 780798382 Problem Pre-syncope R55 Active confirmed 26229416 0 Problem Constipation, unspecified constipation type K59.00 Active confirmed 67045413 Problem DDD (degenerative disc disease), lumbar M51.36 Active confirmed 48114087 Problem Gastroesophageal reflux disease, esophagitis pre sence not specified K21.9 Active confirmed 735900858 Problem Breast cancer screening Z12.39 Active confirmed 169592940 Problem Essential hypertension I10 Active confirmed 37940391 Problem Personal history of pulmonary embolism Z86.711 A ctive confirmed 307297460 Problem half-way (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 Z79.4 Activ e confirmed 095415761 Problem Chronic kidney disease, stage 3 (moderate) N18.3 Active confirmed 224967817 Problem Chronic obstructive pulmonary disease, unspecified COPD ty pe J44.9 Active confirmed 27038797 Problem Seasonal allergic rhinitis due to pollen J30.1 Active confirmed 04685763 Problem Hiatal hernia K44.9 Active confirmed 481240 09 Problem Adenomatous polyp of ascending colon D12.2 Act chris confirmed 519400238 Problem H/O deep venous thrombosis Z86.718 Active confirmed 439818859 Problem Mixed hyperlipidemia E78.2 Active confirmed 210997626 Problem Type 2 diabetes mellitus with diabetic chronic kidney disease E11.22 Active confirmed 31450092 Problem History of pulmonary embolus (PE) Z86.711 Active confirmed 218827063 Problem Fatty liver K76.0 Active confirmed 92169880 7 ALLERGIES Allergen (clinical drug ingredient) Drug/Non Drug Allergy do cumented on EMR Reaction Allergy Type Onset Date Status Metoprolol & Diet Manage Prod Unknown Drug Allergy Active rubber Unknown Non Drug Allergy Active Motrin constipation Drug Allergy Active Quinolone Unknown Non Drug Allergy Active Latex Unknown Non Drug Allergy Active adhesive tape Unknown Non Drug Allergy Activ e ENCOUNTERS from 1950 to 2020-04-17 Encounter Location Date Provider Diagnosis [address] [address] Apr[facility] IMMUNIZATIONS No Information SOCIAL HISTORY Tobacco Use: Social History Observation Description Date Details (start date - stop date) Former Smoker Sex Assigned At : Social History Observation Description Sex Assigned At Unknown Audit Question Answer Notes Total Score: 0 Interpretation: Alcohol Education Language: Question Answer Notes Languages spoken: Greek Adventist: Question Answer Notes Adventist No uatsdin beliefs that would impact health care. Sexual [...] Date Status Acetaminophen 8 Hour Acti ve July Have - wedge pillow nightly before bedtime [...] Days 08 August, 020 Active Vitamin D3 08960 UNIT 1 capsule Orally Active Losartan Potassium [...] cap po twice daily for 30 Days 29 Abiodun, 20 20 Active Lantus SoloStar 100 UNIT/ML 74u [...] Information RESULTS No Results REASON FOR VISIT D/C [facility] MEDICAL (GENERAL) HISTORY Type Description Date Medical [...] MG 1 capsule Orally Once a day Next Appt Details Provider Name:Hilda Castanon, 2-10 09:30:00 AM, [address] [place] [address], [phone], Provider Name:Gerard Alas, 2020-05-26 0 1:15:00 PM, [address] [place] [address], [phone], Provider Name:Hilda Castanon, 10-07 09:30:00 AM, [address] [place] [address], [phone], Insurance Providers Payer Name Payer Address Payer Phone Insured Name Patient Relati onship to Insured Coverage Start Date Coverage End Date MEDICAID [employer] [address] [facility] [id number] [place] self [facility] [address] [address] [facility] [address] [place] self
--- OUTSIDE RECORDS SUMMARY | 2020-04-22 12:10 | CCD | Continuity of Care Document ---
Author Author Angelita ESQUIVEL PA Organization Unknown Address [address] [place] [address], [address] [place] [address] Phone [phone] Care Team Providers Care Sheet Pile Driver Operator Name Role Phone Ella Goins MD AUTM [phone] Hilda Castanon AUTM [phone] Problems Active Problems Provider Date Type 2 [...] right foot Unknown 00 Fluticasone Propionate Nasal [place] 24- H our 50mcg/Act Suspension 2 sprays Unknown Multivitamins Capsules Unknown Drisdol 1.25mg (65532 Ut) Capsules take 1 tab by mouth [...] Available Procedures Date Code Description Status 04/08/2020 01466 X-Ray Hand Three Views Completed Medical Devices Description No Information Available Encounters Type Date Location Provider Dx Diagnosis Office Visit 04/08/2020 11:30a [place] [facility] M79.641 Pain in right hand R22.31 Localized swelling, mass and lump, right upper limb Assessments Date Code Description Provider 04/08/2020 M79.641 Pain in right hand [facility] 04/08/2020 R22.31 Localized swelling, mass and lum p, right upper limb [facility] Plan of Treatment 04/08/2020 - [facility]* M79.641 Pain in right hand* New Xrays:* MRI Right Hand, Ordered: 04/08/20 * Follow up:* mri results right hand with IID TELEMED APPT * R22.31 Localized swelling, mass and lump, right upper limb Functional Status Description No Information Available Mental Status Description No Information Available Referrals Description No Information Available
--- OUTSIDE RECORDS SUMMARY | 2020-04-22 12:12 | CCD ---
Author Author [facility] Organization [facility] Address Unknown Phone Unavailable Support Name Relationship Address Phone HORTENSIA KURTZ Next Of Kin [address] [place] [address] HORTENSIA BRAND Next Of Kin [address] [place] [address] [id number] [place] [address] Natali Martinez Next Of Kin [address] [place] [address] Rachel Leiva Next Of Kin [place] [phone] Jocy Castillo Next Of Kin [address] [place] [address] Tova Alvarado Next Of Kin [address] [place] [address] RACHEL LEIVA Next Of Kin [address] [place] [address] HORTENSIA LEIVA Next Of Kin [address] [place] [address] MACI LEIVA Next Of Kin [address] [facility] A PT. [address] [place] [address] Jesse PAZ Next Of Kin [address] [address] RE Next Of Kin Unknown Unavailable RETIRED Next Of Kin Unknown Unavailable UE Next Of Kin Unknown Unavailable INEZ PAZ Next Of Kin [address] [facility] [address] [place] [address] ANA PATIÑO Next Of Kin Unknown Unavailable TOÑ[place] [address] U DIS, DISABLED Next Of Kin Unknown Unavailable COUSINFORD Cline Next Of Kin [address] [place] [address] DISABLED Next Of Kin Unknown Unavailable COUSINRAC[place] [address] FLORECITA GUIDRY Next Of Kin [address] [place] [address] RACHEL LEIVA ECON [address] [place] 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 Name Role Phone DRAZEK, I JAJA PA Unavailable Unavailable DRAZEK, I JAJA PA Unavailable Unavailable DRAZEK, I JAJA PA Unavailable Unavailable DRAZEK, I JAJA PA Unavailable Unavailable DRAZEK, I JAJA PA Unavailable Unavailable DRAZEK, I JAJA PA Unavailable Unavailable DRAZEK, I JAJA PA Unavailable Unavailable DRAZEK, I JAJA PA Unavailable Unavailable DRAZEK, I JAJA PA Unavailable Unavailable DRAZEK, I JAJA PA Unavailable Unavailable DRAZEK, I JAJA PA Unavailable Unavailable DRAZEK, I JAJA PA Unavailable Unavailable DRAZEK, I JAJA PA Unavailable Unavailable DRAZEK, I JAJA PA Unavailable Unavailable DRAZEK, I JAJA PA Unavailable Unavailable DRAZEK, I JAJA PA Unavailable Unavailable DRAZEK, I JAJA PA Unavailable Unavailable DRAZEK, I JAJA PA Unavailable Unavailable DRAZEK, I JAJA PA Unavailable Unavailable DRAZEK, I JAJA PA Unavailable Unavailable DRAZEK, I JAJA PA Unavailable Unavailable DRAZEK, I JAJA PA Unavailable Unavailable DRAZEK, I JAJA PA Unavailable Unavailable DRAZEK, I JAJA PA Unavailable Unavailable DRAZEK, I JAJA PA Unavailable Unavailable DRAZEK, I JAJA PA Unavailable Unavailable DRAZEK, I JAJA PA Unavailable Unavailable DRAZEK, I JAJA PA Unavailable Unavailable DRAZEK, I JAJA PA Unavailable Unavailable DRAZEK, I JAJA PA Unavailable Unavailable TAMI MARTINEZ MD Unavailable Unavailable TAMI MARTINEZ MD Unavailable Unavailable TAMI MARTINEZ MD Unavailable Unavailable TAMI MARTINEZ MD Unavailable Unavailable TAMI MARTINEZ MD Unavailable Unavailable TAMI MARTINEZ MD Unavailable Unavailable REINDL, TAMI VILLATORO Unavailable [...] Unavailable REINDL, TAMI VILLATORO Unavailable Unavailable REINDL, ATMI VILLATORO Unavailable Unavailable REINDL, TAMI VILLATORO Unavailable [...] Unavailable Unavailable REINDL, TAMI VILLATORO Unavailable Unavailable Dede HERNÁNDEZ MD Unavailable Unavailable Dede HERNÁNDEZ MD Unavailable Unavailable Dede HERNÁNDEZ MD Unavailable Unavailable Dede HERNÁNDEZ MD Unavailable Unavailable Deed HERNÁNDEZ MD Unavailable Unavailable Dede HERNÁNDEZ MD [...] Unavailable Unavailable Dede HERNÁNDEZ MD Unavailable Unavailable KLARISSADede TEJEDA MD Unavailable Unavailable Dede HERNÁNDEZ MD Unavailable [...] Unavailable Unavailable Dede HERNÁNDEZ MD Unavailable Unavailable CHAUHAN, ISAIAH MARCIE RPA-C Unavailable [...] Unavailable CHAUHAN, ISAIAH MARCIE RPA-C Unavailable Unavailable ANTECOLJoe MD Unavailable Unavailable ANTECOLJoe MD Unavailable Unavailable ANTECOL, Joe GARRETT MD [...] Unavailable ANTECOL, Joe GARRETT MD Unavailable Unavailable Jessica VILLATORO, Rubin Mcdonald Unavailable Unavailable Jessica VILLATORO, Rubin Mcdonald Unavailable Unavailable Jessica VILLATORO, Rubin Mcdonald Unavailable Unavailable Jessica VILLATORO, Rubin Mcdonald Unavailable Unavailable Jessica VILLATORO, Rubin Mcdonald Unavailable Unavailable Jessica VILLATORO, Rubin Mcdonald Unavailable Unavailable Jessica VILLATORO, Rubin Mcdonald Unavailable Unavailable Rubin Lopez MD Unavailable Unavailable [...] Unavailable Unavailable Rubin Lopez MD Unavailable Unavailable Wnorowski MD, Rubin Mcdonald Unavailable Unavailable Jessica VILLATORO, C [...] Unavailable Jessica VILLATORO, Rubin Mcdonald Unavailable Unavailable FISCHI, Rubin FLORES MD Unavailable [...] FISCHI, Rubin FLORES MD Unavailable Unavailable FISCHI, Rbuin FLORES MD Unavailable Unavailable FISCHI, Rubin FLORES [...] Rubin FLORES MD Unavailable Unavailable FISCHI, Rubin FOLRES MD Unavailable Unavailable FISCHI, Rubin FLORES MD Unavailable Unavailable FISCHI, Rubin FLORES MD Unavailable Unavailable FISCHI, Rubin FLORES MD Unavailable Unavailable FISCHI, Rubin FLORES MD Unavailable Unavailable FISCHI, Rubin FLORES MD Unavailable Unavailable FISCHI, Rubin FLORES MD Unavailable Unavailable FISCHI, Rubin FLORES MD Unavailable Unavailable FISCHI, Rubin FLORES MD Unavailable Unavailable FISCHI, Rubin FLORES MD Unavailable Unavailable Dede HERNÁNDEZ MD Unavailable Unavailable Dede HERNÁNDEZ MD Unavailable Unavailable Dede HERNÁNDEZ MD Unavailable Unavailable Dede HERNÁNDEZ MD Unavailable Unavailable Dede HERNÁNDEZ MD Unavailable Unavailable Dede HERNÁNDEZ MD Unavailable Unavailable Dede HERNÁNDEZ MD Unavailable Unavailable Dede HERNÁNDEZ MD Unavailable Unavailable Dede HRENÁNDEZ MD Unavailable Unavailable Dede HERNÁNDEZ MD Unavailable [...] Unavailable Unavailable Dede HERNÁNDEZ MD Unavailable Unavailable KLARISSADede TEJEDA MD Unavailable Unavailable Dede HERNÁNDEZ MD Unavailable [...] Unavailable Unavailable Dede HERNÁNDEZ MD Unavailable Unavailable Ali, Delvis VILLATORO Unavailable Unavailable Ali, Delvis VILLATORO Unavailable Unavailable Ali, Delvis MD Unavailable Unavailable Ali, Delvis MD Unavailable Unavailable Ali, Delvis MD Unavailable Unavailable Ali, Delvis MD Unavailable Unavailable Ali, Delvis MD Unavailable Unavailable Ali, Delvis MD Unavailable Unavailable Ali, Delvis MD Unavailable Unavailable Ali, Delvis MD Unavailable Unavailable Ali, Delvis MD Unavailable Unavailable Ali, Delvis MD Unavailable Unavailable Ali, Delvis MD Unavailable Unavailable Ali, Delvis MD Unavailable Unavailable Ali, Delvis MD Unavailable Unavailable Ali, Delvis MD Unavailable Unavailable Ali, Delvis MD Unavailable Unavailable Ali, Delvis MD Unavailable Unavailable Ali, Delvis MD Unavailable Unavailable Ali, Delvis MD Unavailable Unavailable Ali, Delvis MD Unavailable Unavailable Ali, Delvis MD Unavailable Unavailable Ali, Delvis MD Unavailable Unavailable Ali, Delvis MD Unavailable Unavailable Ali, Delvis MD Unavailable Unavailable Ali, Delvis MD Unavailable Unavailable Ali, Delvis MD Unavailable Unavailable Ali, Delvis MD Unavailable Unavailable Ali, Delvis MD Unavailable Unavailable Ali, Delvis MD Unavailable Unavailable Ali, Delvis MD Unavailable Unavailable Ali, Delvis MD Unavailable Unavailable Ali, Delvis MD Unavailable Unavailable Ali, Delvis MD Unavailable Unavailable Ali, Delvis MD Unavailable Unavailable Ali, Delvis MD Unavailable Unavailable Ali, Delvis MD Unavailable Unavailable Ali, Delvis MD Unavailable Unavailable Ali, Delvis MD Unavailable Unavailable Ali, Delvis MD Unavailable Unavailable Ali, Delvis MD Unavailable Unavailable Ali, Delvis MD Unavailable Unavailable Ali, Delvis MD Unavailable Unavailable Ali, Delvis VILLATORO Unavailable Unavailable AliDelvis MD Unavailable Unavailable Ali, Delvis VILLATORO Unavailable Unavailable Ali, Delvis MD Unavailable Unavailable Delvis Acosta MD Unavailable Unavailable Karla, Delvis VILLATORO Unavailable Unavailable Joe BAUER MD Unavailable Unavailable [...] Unavailable JUANCARLOS H MARC VILLATORO Unavailable Unavailable Joe BAUER MD Unavailable Unavailable Joe BAUER MD Unavailable Unavailable Joe BAUER MD Unavailable Unavailable Joe BAUER MD Unavailable Unavailable Joe BAUER MD Unavailable Unavailable JUANCARLOS H MARC VILLATORO Unavailable Unavailable JUANCARLOS H MARC VILLATORO Unavailable Unavailable JUANCARLOS H MARC VILLATORO Unavailable Unavailable JUANCARLOS H MARC VILLATORO Unavailable Unavailable JUANCARLOS H MARC VILLATORO Unavailable Unavailable JUANCARLOS H MARC VILLATORO Unavailable Unavailable JUANCARLOS H MARC VILLATORO Unavailable Unavailable JUANCARLOS H MARC VILLATORO Unavailable Unavailable JUANCARLOS H MARC VILLATORO Unavailable Unavailable JUANCARLOS H MARC VILLATORO Unavailable Unavailable Joe BAUER MD Unavailable Unavailable JUANCARLOS H MARC VILLATORO Unavailable Unavailable JUANCARLOS H MARC VILLATORO Unavailable Unavailable Joe BAUER MD Unavailable Unavailable [...] Unavailable Unavailable Joe BAUER MD Unavailable Unavailable Jeo BAUER MD Unavailable Unavailable Joe BAUER MD [...] Unavailable Unavailable Joe BAUER MD Unavailable Unavailable Rj Ingram MD Unavailable [...] Unavailable Unavailable Rj Ingram MD Unavailable Unavailable Ingram, Rj Gonsalez MD Unavailable Unavailable Ingram, Rj Gonsalez MD Unavailable Unavailable Ingram, Rj Gonsalez MD Unavailable Unavailable Ingram, Rj Gonsalez MD Unavailable Unavailable Ingram, Rj Gonsalez MD Unavailable Unavailable Ingram, Rj Gonsalez MD Unavailable Unavailable Ingram, Rj Gonsalez MD Unavailable Unavailable Ingram, Rj Gonsalez MD Unavailable Unavailable Ingram, Rj Gonsalez MD Unavailable Unavailable Ingram, Rj Gonsalez MD Unavailable Unavailable Ingram, Rj Gonsalez MD Unavailable Unavailable Ingram, Rj Gonsalez MD Unavailable Unavailable Ingram, Rj Gonsalez MD Unavailable Unavailable Ingram, Rj Gonsalez MD Unavailable Unavailable Ingram, Rj Gonsalez MD Unavailable Unavailable Ingram, Rj Gonsalez MD Unavailable Unavailable Ingram, Rj Gonsalez MD Unavailable Unavailable Ingram, Rj Gonsalez MD Unavailable Unavailable Ingram, Rj Gonsalez MD Unavailable Unavailable Ingram, Rj Gonsalez MD Unavailable Unavailable Ingram, Rj Gonsalez MD Unavailable Unavailable Ingram, Rj Gonsalez MD Unavailable Unavailable Ingram, Rj Gonsalez MD Unavailable Unavailable Ingram, Rj Gonsalez MD Unavailable Unavailable Ingram, Rj Gonsalez MD Unavailable Unavailable Juan Jose, Rj Gonsalez MD Unavailable Unavailable Juan Jose, Rj Gonsalez MD Unavailable Unavailable Juan Jose, Rj Gonsalez MD Unavailable Unavailable Juan Jose, Rj Gonsalez MD Unavailable Unavailable Juan Jose, Rj Gonsalez MD Unavailable Unavailable Juan Jose, Rj Gonsalez MD Unavailable Unavailable Juan Jose, Rj Gonsalez MD Unavailable Unavailable Juan Jose, Rj Gonsalez MD Unavailable Unavailable Juan Jose, Rj Gonsalez MD Unavailable Unavailable Juan Jose, Rj Gonsalez MD Unavailable Unavailable Juan Jose, Rj Gonsalez MD Unavailable Unavailable Rj Ingram MD Unavailable Unavailable Nikos, Natali SUPERVISOR ESTIMATOR AND DRAFTER SUPERVISOR ESTIMATOR AND DRAFTER Unavailable Unavailable [facility], RFROST CHAUHAN PA MARCIE Unavailable Unavailable Nikos, A Natali SUPERVISOR ESTIMATOR AND DRAFTER Unavailable Unavailable Nikos, A Natali SUPERVISOR ESTIMATOR AND DRAFTER Unavailable Unavailable Nikos, A Natali SUPERVISOR ESTIMATOR AND DRAFTER Unavailable Unavailable Nikos, A Natali SUPERVISOR ESTIMATOR AND DRAFTER Unavailable Unavailable Nikos, A Natali SUPERVISOR ESTIMATOR AND DRAFTER Unavailable Unavailable Nikos, A Natali SUPERVISOR ESTIMATOR AND DRAFTER Unavailable Unavailable Nikos, A Natali SUPERVISOR ESTIMATOR AND DRAFTER Unavailable Unavailable Nikos, A Natali SUPERVISOR ESTIMATOR AND DRAFTER Unavailable Unavailable Nikos, A Natali SUPERVISOR ESTIMATOR AND DRAFTER Unavailable Unavailable Nikos, A Natali SUPERVISOR ESTIMATOR AND DRAFTER Unavailable Unavailable Nikos, A Natali SUPERVISOR ESTIMATOR AND DRAFTER Unavailable Unavailable Nikos, A Natali SUPERVISOR ESTIMATOR AND DRAFTER Unavailable Unavailable Nikos, A Natali SUPERVISOR ESTIMATOR AND DRAFTER Unavailable Unavailable Nikos, A Natali SUPERVISOR ESTIMATOR AND DRAFTER Unavailable Unavailable Nikos, A Natali SUPERVISOR ESTIMATOR AND DRAFTER Unavailable Unavailable Nikos, A Natali SUPERVISOR ESTIMATOR AND DRAFTER Unavailable Unavailable Nikos, A Natali SUPERVISOR ESTIMATOR AND DRAFTER Unavailable Unavailable Nikos, A Natali SUPERVISOR ESTIMATOR AND DRAFTER Unavailable Unavailable Nikos, A Natali SUPERVISOR ESTIMATOR AND DRAFTER Unavailable Unavailable Nikos, A Natali SUPERVISOR ESTIMATOR AND DRAFTER Unavailable Unavailable Nikos, A Natali SUPERVISOR ESTIMATOR AND DRAFTER Unavailable Unavailable Nikos, A Natali SUPERVISOR ESTIMATOR AND DRAFTER Unavailable Unavailable Nikos, A Natali SUPERVISOR ESTIMATOR AND DRAFTER Unavailable Unavailable Nikos, A Natali SUPERVISOR ESTIMATOR AND DRAFTER Unavailable Unavailable Nikos, A Natali SUPERVISOR ESTIMATOR AND DRAFTER Unavailable Unavailable Nikos, A Natali SUPERVISOR ESTIMATOR AND DRAFTER Unavailable Unavailable Nikos, A Natali SUPERVISOR ESTIMATOR AND DRAFTER Unavailable Unavailable Nikos, A Natali SUPERVISOR ESTIMATOR AND DRAFTER Unavailable Unavailable Re-disclosure Warning The records that [...] is protected by Article 27-F of the [facility] Public Health law. If you continue you may have access to information: Regarding HIV / AIDS; Provided by facilities licensed or operated by the [facility] Office of Mental Health; or Provided by the [facility] Office for People With Developmental Disabilities. If such information is present, then the following [facility] mandated warning applies: This information has [...] law may result in a fine or [place] health care facility sentence or both. A general authorization for the release of medical or other information is NOT sufficient authorization for further disc losure. Allergies and Adverse Reactions Type Description Substance Reaction Status Data Source(s ) Propensity to adverse reactions QUINOLONES Quinolones Acti ve [facility] Propensity to adverse reactions MORPHINE AND RELATED Morphine And R elated Active [facility] Propensity to adverse reactions METOPROLOL Metoprolol Acti ve [facility] Propensity to adverse reactions IBUPROFEN Ibuprofen Acti ve [facility] Propensity to adverse reactions ADHESIVE TAPE Adhesive Tape Rash Low Active [facility] Low Quinolone Quinolone Quinolone Unknown Active eCW1 ([facility]) Drug allergy Metoprolol & Diet Manage Prod Metoprolol & Diet Manage Prod Unknown Active eCW1 ([facility]) Motrin Motrin Motrin constipation Active eCW1 ([facility]) Latex Latex Latex Unknown Active eCW1 ([facility]) adhesive tape adhesive tape adhesive tape Unknown Active eCW1 ([facility]) rubber rubber rubber Unknown Active eCW1 ([facility]) Latex Latex Latex Unknown Active eCW1 ([facility]) Drug allergy Metoprolol & Diet Manage Prod Metoprolol & Diet Manage Prod Unknown Active eCW1 ([facility]) Motrin Motrin Motrin constipation Active eCW1 ([facility]) adhesive tape adhesive tape adhesive tape Unknown Active eCW1 ([facility]) Quinolone Quinolone Quinolone Unknown Active eCW1 ([facility]) rubber rubber rubber Unknown Active eCW1 ([facility]) Family History Family Member Name Family Member Gender Family Member Status Date o f Status Description Data Source(s) Unknown Male Problem MEDENT ([facility]) Encounters Encounter Providers Location Date Indications Data Source(s ) [place] [address] [place] [address] 04/15/2020 12:00:00 AM EST eCW1 ([facility]) OFFICE OUTPATIENT VISIT 15 MINUTES Attender: JAJA PABLO Phys ical Therapy 04/08/2020 10:30:00 AM EST MEDENT ([facility]) Office Visit, Est Pt., Level 4 PC [address] [place] [address] 04/08/2020 12:00:00 AM EST eCW1 ([facility]) [place] [address] [place] [address] 04/01/2020 12:00:00 AM EST eCW1 ([facility]) [place] [address] [place] [address] 03/31/2020 12:00:00 AM EST eCW1 ([facility]) Office Visit, Est Pt., Level 3 PC [address] [place] [address] 03/24/2020 12:00:00 AM EST eCW1 ([facility]) [place] [address] [place] [address] 03/23/2020 12:00:00 AM EST [facility] Unknown [address] [facility] [place] [address] 02/28/2020 12:00:00 AM EST eCW1 ([facility]) [place] [address] [place] [address] 02/28/2020 12:00:00 AM EST eCW1 ([facility]) Unknown [address] [facility] [place] [address] 02/28/2020 12:00:00 AM EST eCW1 ([facility]) Unknown [address] [facility] [place] [address] 02/28/2020 12:00:00 AM EST eCW1 ([facility]) Office Visit, Est Pt., Level 3 PC [address] [place] [address] 02/27/2020 12:00:00 AM EST eCW1 ([facility]) Unknown [address] [facility] [address] 02/24/2020 12:00:00 AM EST eCW1 ([facility]) Office Visit, Est Pt., Level 4 PC [address] [place] [address] 02/21/2020 12:00:00 AM EST eCW1 ([facility]) Unknown [address] [facility] [place] [address] 02/17/2020 12:00:00 AM EST eCW1 ([facility]) Unknown [address] [facility] [place] [address] 01/20/2020 12:00:00 AM EST eCW1 ([facility]) Outpatient Attender: Delvis Acosta MD Main office - [place] 01/17/2020 07:30:00 AM EST MEDENT ([facility] ) Unknown [address] [facility] [place] [address] 01/17/2020 12:00:00 AM EST eCW1 ([facility]) Unknown [address] [facility] [place] [address] 01/17/2020 12:00:00 AM EST eCW1 ([facility]) Unknown [address] [facility] [place] [address] 01/15/2020 12:00:00 AM EST eCW1 ([facility]) [place] [address] [place] [address] 01/14/2020 12:00:00 AM EST eCW1 ([facility]) [place] [address] [place] [address] 01/14/2020 12:00:00 AM EST eCW1 ([facility]) Unknown [address] [facility] [place] [address] 01/13/2020 12:00:00 AM EST eCW1 ([facility]) [place] [address] [place] [address] 01/09/2020 12:00:00 AM EDT eCW1 ([facility]) [place] [address] [place] [address] 01/08/2020 12:00:00 AM EDT eCW1 ([facility]) Outpatient [address] [facility] [place] [address] 01/07/2020 12:00:00 AM EDT eCW1 ([facility]) Unknown [address] [facility] [place] [address] 12/30/2019 12:00:00 AM EDT eCW1 ([facility]) [place] [address] [place] [address] 12/23/2019 12:00:00 AM EDT [facility] [place] [address] [place] [address] 12/20/2019 12:00:00 AM EDT [facility]CW1 [facility]) [place] [address] [place] [address] 12/20/2019 12:00:00 AM EDT eCW1 ([facility]) [place] [address] [place] [address] 12/19/2019 12:00:00 AM EDT eCW1 [facility]) [place] [address] [place] [address] 12/19/2019 12:00:00 AM EDT eCW1 ([facility]) Outpatient Attender: Wallace Guardado/Ricardo/Russell/Kimberly fitzpatrick 12/12/2019 02:00:00 PM EDT MEDENT ([facility]) [place] [address] [place] [address] 10/31/2019 12:00:00 AM EDT eCW1 ([facility]) [place] [address] [place] [address] 09/27/2019 12:00:00 AM EDT eCW1 ([facility]) [place] [address] [place] [address] 09/23/2019 12:00:00 AM EDT eCW1 ([facility]) Outpatient Attender: SANDRA OLIVA MDAdmitter: SANDRA GONZALEZ CHI, MD [email or web address] 08/27/2019 06:06:00 AM EDT - 08/27/2019 11:25:00 AM EDT [facility] Patient discharged. [place] [address] [place] [address] 08/26/2019 12:00:00 AM EDT eCW1 ([facility]) Outpatient Referrer: SANDRA OLIVA MD MOB-MOB.[email or web address] 08/24/2019 09:12:5 6 AM EDT [facility] [address] [place] [address] 08/14/2019 12:00:00 AM EDT eCW1 ([facility]) Outpatient Attender: TAMI HERNANDEZ MD Main Office 08/13/2019 12:15:00 PM EDT MEDENT ([facility]) [address] [address] 08/13/2019 12:00:00 AM EDT eCW1 ([facility]) Outpatient Attender: TAMI Guardado/Ricardo/Russell/Jules christy 08/09/2019 09:00:00 AM EDT MEDENT ([facility] [address] [address] 08/09/2019 12:00:00 AM EDT eCW1 ([facility]) [address] [address] 08/07/2019 12:00:00 AM EDT eCW1 ([facility]) [address] [address] 08/07/2019 12:00:00 AM EDT eCW1 ([facility]) Outpatient Attender: Wallace Guardado/Ricardo/Russell/Kimberly fitzpatrick 08/02/2019 09:15:00 AM EDT MEDENT ([facility] [address] [address] 08/02/2019 12:00:00 AM EDT eCW1 ([facility]) [address] [place] [address] 08/01/2019 12:00:00 AM EDT eCW1 ([facility]) [address] [place] [address] 07/30/2019 12:00:00 AM EDT eCW1 [facility] [address] [address] 07/23/2019 12:00:00 AM EDT eCW1 ([facility]) [address] [address] 07/22/2019 12:00:00 AM EDT [facility]CW1 [facility] [place] [address] [address] 07/22/2019 12:00:00 AM EDT eCW1 ([facility] [place] [address] [address] 07/18/2019 12:00:00 AM EDT eCW1 ([facility] [place] [address] [address] 07/17/2019 12:00:00 AM EDT eCW1 ([facility] [address] [address] 07/16/2019 12:00:00 AM EDT eCW1 ([facility]) Outpatient Attender: Wallace Guardado/Ricardo/Russell/Kimberly fitzpatrick 07/04/2019 01:30:00 PM EDT MEDENT ([facility]) [address] [address] 07/04/2019 12:00:00 AM EDT eCW1 ([facility] [address] [address] 07/02/2019 12:00:00 AM EDT eCW1 ([facility] [address] [address] 07/01/2019 12:00:00 AM EDT eCW1 ([facility] [address] [address] 07/01/2019 12:00:00 AM EDT eCW1 ([facility]) [facility] [address] [place] [address], [place] [address] 06/26/2019 12:00:00 AM EDT eCW1 ([facility]) [address] [address] 06/25/2019 12:00:00 AM EDT eCW1 ([facility]) [address] [address] 06/12/2019 12:00:00 AM EDT eCW1 ([facility]) [address] [address] 06/12/2019 12:00:00 AM EDT eCW1 ([facility]) Outpatient Attender: LEDY JACK [facility] 05/13 08:20:01 AM EDT [facility] Outpatient Attender: MARCIE ARAGONC [facility] 06/11/2019 07:56:03 AM EDT [facility] Outpatient Attender: LEDY JACK [facility] 05/13 07:55:01 AM EDT [address] [address] 06/11/2019 12:00:00 AM EDT eCW1 ([facility]) Outpatient Attender: MARCIE BELLAMY [facility] 06/05/2019 02:24:04 PM EDT [facility] Outpatient Referrer: MARC BAUER MD 06/04/2019 11:00:00 AM EDT [facility] Outpatient Attender: MARCIE ARAGONC [facility] 05/31/2019 04:14:02 PM EDT [facility] Outpatient Attender: [facility] 05/12 04:14:01 PM EDT [facility] Outpatient Attender: LEDY [facility] 05/11 11:18:02 AM EDT [facility] Outpatient Attender: MARCIE BELLAMY [facility] 05/27/2019 03:08:01 PM EDT [facility] Outpatient Attender: LEDY ORTIZZECHARIAH KNOWLES [facility] 05/11 03:08:00 PM EDT [facility] Outpatient Attender: LEDY ORTIZZECHARIAH KNOWLES [facility] 05/11 11:19:01 AM EDT [facility] Outpatient Attender: MARCIE BELLAMY [facility] 05/24/2019 02:58:01 PM EDT [facility] Outpatient Attender: TYESHA ARAMBULA 05/17/2019 01:33:01 P M [facility] Outpatient Referrer: MARC BAUER MD 05/14/2019 12:29:00 PM [facility] Outpatient Referrer: MARC BAUER MD 05/10/2019 02:20:00 PM [facility] Outpatient Attender: TYESHA ARAMBULA FP 05/09/2019 01:51:01 P M [facility] Outpatient Attender: TYESHA ARAMBULA FP 05/07/2019 03:29:[address] [facility] Outpatient Attender: TYESHA ARAMBULA FP 05/06/2019 08:46:01 A M [facility] Outpatient Attender: Natali ARAMBULA FP 04/24/2019 10:4 3:02 AM [facility] Outpatient Attender: Natali ARAMBULA FP 04/23/2019 11:5 7:01 AM [facility] Outpatient Attender: Natali ARAMBULA FP 04/23/2019 08:1 3:06 AM [facility] Outpatient Attender: Natali ARAMBULA FP 04/22/2019 08:2 0:03 AM [facility] Outpatient Attender: TYESHA ARAMBULA FP 04/22/2019 08:20:02 A M [facility] Outpatient Attender: TYESHA ARAMBULA FP 04/18/2019 02:26:05 P M [facility] Outpatient Attender: TYESHA ARAMBULA FP 04/18/2019 12:56:01 P M [facility] Outpatient Attender: Natali ARAMBULA FP 04/11/2019 11:4 3:02 AM [facility] Outpatient Attender: TYESHA ARAMBULA FP 04/10/2019 08:20:04 A M [facility] Outpatient Attender: Natali Nikos NGP FP 04/10/2019 08:2 0:01 AM [facility] Outpatient Attender: Natali Nikos NGP FP 04/08/2019 10:2 6:02 AM [facility] Outpatient Attender: Natali Knott [employer]PERVISOR ESTIMATOR [employer] DRAFTER FP 04/08/2019 10:2 3:00 AM [facility] Outpatient Attender: TYESHA Knott SUPERVISOR ESTIMATOR AND DRAFTER FP 04/05/2019 09:29:24 A M [facility] Outpatient Attender: TYESHA NGP FP 04/03/2019 03:29:[address] [facility] Outpatient Attender: TYESHA NGP FP 04/03/2019 03:27:[address] [facility] Outpatient Attender: TYESHA NGP FP 04/03/2019 03:25:[address] [facility] Outpatient Attender: TYESHA NGP FP 04/03/2019 02:54:[address] [facility] Outpatient Attender: Harry Lopez MDReferrer: TAMI STORY MD 04/02/2019 12:15:45 PM EST [facility] Outpatient Attender: TYESHA ARAMBULA FP 04/01/2019 04:39:[address] [facility] Outpatient Attender: TAMI HERNÁNDEZ MD FP 04/01/2019 04:38:[address] [facility] Outpatient Attender: TAMI HERNÁNDEZ MD FP 04/01/2019 04:31:[address] [facility] Outpatient Attender: TAMI HERNÁNDEZ MD FP 04/01/2019 10:52:[address] [facility] Outpatient Attender: TAMI HERNÁNDEZ MD FP 03/26/2019 12:26:[address] [facility] Outpatient Attender: TAMI HERNÁNDEZ MD FP 03/25/2019 12:02:[address] [facility] Recurring Patient Attender: Harry Lopez MDReferrer: TAMI TERRAZAS MD 03/22/2019 01:51:43 PM EST [facility] Outpatient Attender: TAMI Guardado/Ricardo/Russell/Rein dl 03/22/2019 09:30:00 AM EST [facility] ([facility]) Outpatient Attender: TAMI PEREZ 03/21/2019 10:21:[address] [facility] Outpatient Attender: TAMI HERNÁNDEZ MD 03/14/2019 12:45:[address] [facility] Outpatient Attender: TAMI HERNÁNDEZ MD 03/07/2019 08:41:[address] [facility] Outpatient Attender: TAMI HERNÁNDEZ MD 02/26/2019 12:19:[address] [facility] Outpatient Attender: TAMI HERNÁNDEZ MD 02/25/2019 01:55:[address] [facility] Medications Medication Brand Name Start Date Product Form Dose Route Admi nistrative Instructions Pharmacy Instructions Status Indications Reaction Description Data Source(s) Doxycycline Monohydrate 100 MG Oral Capsule Doxycycline Hemphill hydrate 100 MG 03/24/2020 12:00:00 AM EST 1.0 {capsule} active Doxycycline Monohydrate 100 MG eCW1 ([facility]) pregabalin 300 MG Oral Capsule [Lyrica] Lyrica 300 MG Lyrica 300 MG 03/24/2020 12:00:00 AM EST active Lyrica 3 00 MG eCW1 ([facility]) Doxycycline Monohydrate 100 MG Oral Capsule Doxycycline Hemphill hydrate 100 MG 03/24/2020 12:00:00 AM EST 1.0 {capsule} active Doxycycline Monohydrate 100 MG eCW1 ([facility]) pregabalin 300 MG Oral Capsule [Lyrica] Lyrica 300 MG Lyrica 300 MG 03/24/2020 12:00:00 AM EST active Lyrica 3 00 MG eCW1 ([facility]) pregabalin 300 MG Oral Capsule [Lyrica] Lyrica 300 MG Lyrica 300 MG 03/24/2020 12:00:00 AM EST active Lyrica 3 00 MG eCW1 ([facility]) pregabalin 300 MG Oral Capsule [Lyrica] Lyrica 300 MG Lyrica 300 MG 03/24/2020 12:00:00 AM EST active Lyrica 3 00 MG eCW1 ([facility]) Doxycycline Monohydrate 100 MG Oral Capsule Doxycycline Hemphill hydrate 100 MG 03/24/2020 12:00:00 AM EST 1.0 {capsule} active Doxycycline Monohydrate 100 MG eCW1 ([facility]) pregabalin 300 MG Oral Capsule [Lyrica] Lyrica 300 MG Lyrica 300 MG 03/24/2020 12:00:00 AM EST active Lyrica 3 00 MG eCW1 ([facility]) May Have - UNK 02/27/2020 12:00:00 AM EST active May Have - eCW1 ([facility]) May Have - UNK 02/27/2020 12:00:00 AM EST active May Have - eCW1 ([facility]) pregabalin 50 MG Oral Capsule [Lyrica] Lyrica 50 MG Lyrica 5 0 MG 02/27/2020 12:00:00 AM EST active Lyrica 5 0 MG eCW1 ([facility]) May Have - UNK 02/27/2020 12:00:00 AM EST active May Have - eCW1 ([facility]) pregabalin 50 MG Oral Capsule [Lyrica] Lyrica 50 MG Lyrica 5 0 MG 02/27/2020 12:00:00 AM EST active Lyrica 5 0 MG eCW1 ([facility]) pregabalin 50 MG Oral Capsule [Lyrica] Lyrica 50 MG Lyrica 5 0 MG 02/27/2020 12:00:00 AM EST active Lyrica 5 0 MG eCW1 ([facility]) May Have - UNK 02/27/2020 12:00:00 AM EST active May Have - eCW1 ([facility]) May Have - UNK 02/27/2020 12:00:00 AM EST active May Have - eCW1 ([facility]) May Have - UNK 02/27/2020 12:00:00 AM EST active May Have - eCW1 ([facility]) May Have - UNK 02/27/2020 12:00:00 AM EST active May Have - eCW1 ([facility]) May Have - UNK 02/27/2020 12:00:00 AM EST active May Have - eCW1 ([facility]) pregabalin 50 MG Oral Capsule [Lyrica] Lyrica 50 MG Lyrica 5 0 MG 02/27/2020 12:00:00 AM EST active Lyrica 5 0 MG eCW1 ([facility]) pregabalin 50 MG Oral Capsule [Lyrica] Lyrica 50 MG Lyrica 5 0 MG 02/27/2020 12:00:00 AM EST active Lyrica 5 0 MG eCW1 ([facility]) May Have - UNK 02/27/2020 12:00:00 AM EST active May Have - eCW1 ([facility]) May Have - UNK 02/27/2020 12:00:00 AM EST active May Have - eCW1 ([facility]) pregabalin 50 MG Oral Capsule [Lyrica] Lyrica 50 MG Lyrica 5 0 MG 02/27/2020 12:00:00 AM EST active Lyrica 5 0 MG eCW1 ([facility]) pregabalin 50 MG Oral Capsule [Lyrica] Lyrica 50 MG Lyrica 5 0 MG 02/27/2020 12:00:00 AM EST active Lyrica 5 0 MG eCW1 ([facility]) May Have - UNK 02/27/2020 12:00:00 AM EST active May Have - eCW1 ([facility]) May Have - UNK 02/27/2020 12:00:00 AM EST active May Have - eCW1 ([facility]) 60 ACTUAT Fluticasone propionate 0.1 MG/ ACTUAT / salmeterol 0.05 MG/ACTUAT Dry Powder Inhaler [Advair] Advair Diskus 100-50 MCG/DOSE Advair Diskus 100-50 MCG/DOSE 02/21/2020 12:00:00 AM EST 1.0 {puff} activ e Advair Diskus 100-50 MCG/DOSE eCW1 ([facility]) 60 ACTUAT Fluticasone propionate 0.1 MG/ ACTUAT / salmeterol 0.05 MG/ACTUAT Dry Powder Inhaler [Advair] Advair Diskus 100-50 MCG/DOSE Advair Diskus 100-50 MCG/DOSE 02/21/2020 12:00:00 AM EST 1.0 {puff} activ e Advair Diskus 100-50 MCG/DOSE eCW1 ([facility]) 60 ACTUAT Fluticasone propionate 0.1 MG/ ACTUAT / salmeterol 0.05 MG/ACTUAT Dry Powder Inhaler [Advair] Advair Diskus 100-50 MCG/DOSE Advair Diskus 100-50 MCG/DOSE 02/21/2020 12:00:00 AM EST 1.0 {puff} activ e Advair Diskus 100-50 MCG/DOSE eCW1 ([facility]) 60 ACTUAT Fluticasone propionate 0.1 MG/ ACTUAT / salmeterol 0.05 MG/ACTUAT Dry Powder Inhaler [Advair] Advair Diskus 100-50 MCG/DOSE Advair Diskus 100-50 MCG/DOSE 02/21/2020 12:00:00 AM EST 1.0 {puff} activ e Advair Diskus 100-50 MCG/DOSE eCW1 ([facility]) 60 ACTUAT Fluticasone propionate 0.1 MG/ ACTUAT / salmeterol 0.05 MG/ACTUAT Dry Powder Inhaler [Advair] Advair Diskus 100-50 MCG/DOSE Advair Diskus 100-50 MCG/DOSE 02/21/2020 12:00:00 AM EST 1.0 {puff} activ e Advair Diskus 100-50 MCG/DOSE eCW1 ([facility]) 60 ACTUAT Fluticasone propionate 0.1 MG/ ACTUAT / salmeterol 0.05 MG/ACTUAT Dry Powder Inhaler [Advair] Advair Diskus 100-50 MCG/DOSE Advair Diskus 100-50 MCG/DOSE 02/21/2020 12:00:00 AM EST 1.0 {puff} activ e Advair Diskus 100-50 MCG/DOSE eCW1 ([facility]) 60 ACTUAT Fluticasone propionate 0.1 MG/ ACTUAT / salmeterol 0.05 MG/ACTUAT Dry Powder Inhaler [Advair] Advair Diskus 100-50 MCG/DOSE Advair Diskus 100-50 MCG/DOSE 02/21/2020 12:00:00 AM EST 1.0 {puff} activ e Advair Diskus 100-50 MCG/DOSE eCW1 ([facility]) 60 ACTUAT Fluticasone propionate 0.1 MG/ ACTUAT / salmeterol 0.05 MG/ACTUAT Dry Powder Inhaler [Advair] Advair Diskus 100-50 MCG/DOSE Advair Diskus 100-50 MCG/DOSE 02/21/2020 12:00:00 AM EST 1.0 {puff} activ e Advair Diskus 100-50 MCG/DOSE eCW1 ([facility]) 60 ACTUAT Fluticasone propionate 0.1 MG/ ACTUAT / salmeterol 0.05 MG/ACTUAT Dry Powder Inhaler [Advair] Advair Diskus 100-50 MCG/DOSE Advair Diskus 100-50 MCG/DOSE 02/21/2020 12:00:00 AM EST 1.0 {puff} activ e Advair Diskus 100-50 MCG/DOSE eCW1 ([facility]) 60 ACTUAT Fluticasone propionate 0.1 MG/ ACTUAT / salmeterol 0.05 MG/ACTUAT Dry Powder Inhaler [Advair] Advair Diskus 100-50 MCG/DOSE Advair Diskus 100-50 MCG/DOSE 02/21/2020 12:00:00 AM EST 1.0 {puff} activ e Advair Diskus 100-50 MCG/DOSE eCW1 ([facility]) 60 ACTUAT Fluticasone propionate 0.1 MG/ ACTUAT / salmeterol 0.05 MG/ACTUAT Dry Powder Inhaler [Advair] Advair Diskus 100-50 MCG/DOSE Advair Diskus 100-50 MCG/DOSE 02/21/2020 12:00:00 AM EST 1.0 {puff} activ e Advair Diskus 100-50 MCG/DOSE eCW1 ([facility]) 60 ACTUAT Fluticasone propionate 0.1 MG/ ACTUAT / salmeterol 0.05 MG/ACTUAT Dry Powder Inhaler [Advair] Advair Diskus 100-50 MCG/DOSE Advair Diskus 100-50 MCG/DOSE 02/21/2020 12:00:00 AM EST 1.0 {puff} activ e Advair Diskus 100-50 MCG/DOSE eCW1 ([facility]) 60 ACTUAT Fluticasone propionate 0.1 MG/ ACTUAT / salmeterol 0.05 MG/ACTUAT Dry Powder Inhaler [Advair] Advair Diskus 100-50 MCG/DOSE Advair Diskus 100-50 MCG/DOSE 02/21/2020 12:00:00 AM EST 1.0 {puff} activ e Advair Diskus 100-50 MCG/DOSE eCW1 ([facility]) Insulin, Aspart, Human 100 UNT/ML Inject able Solution [NovoLog] NovoLog 100 UNIT/ML NovoLog 100 UNIT/ML 02/04/2020 12:00:00 AM EST active NovoLog 100 UNIT/ML eCW1 ([facility]) Insulin, Aspart, Human 100 UNT/ML Inject able Solution [NovoLog] NovoLog 100 UNIT/ML NovoLog 100 UNIT/ML 02/04/2020 12:00:00 AM EST active NovoLog 100 UNIT/ML eCW1 ([facility]) Insulin, Aspart, Human 100 UNT/ML Inject able Solution [NovoLog] NovoLog 100 UNIT/ML NovoLog 100 UNIT/ML 02/04/2020 12:00:00 AM EST active NovoLog 100 UNIT/ML eCW1 ([facility]) Insulin, Aspart, Human 100 UNT/ML Inject able Solution [NovoLog] NovoLog 100 UNIT/ML NovoLog 100 UNIT/ML 02/04/2020 12:00:00 AM EST active NovoLog 100 UNIT/ML eCW1 ([facility]) Insulin, Aspart, Human 100 UNT/ML Inject able Solution [NovoLog] NovoLog 100 UNIT/ML NovoLog 100 UNIT/ML 02/04/2020 12:00:00 AM EST active NovoLog 100 UNIT/ML eCW1 ([facility]) Insulin, Aspart, Human 100 UNT/ML Inject able Solution [NovoLog] NovoLog 100 UNIT/ML NovoLog 100 UNIT/ML 02/04/2020 12:00:00 AM EST active NovoLog 100 UNIT/ML eCW1 ([facility]) Insulin, Aspart, Human 100 UNT/ML Inject able Solution [NovoLog] NovoLog 100 UNIT/ML NovoLog 100 UNIT/ML 02/04/2020 12:00:00 AM EST active NovoLog 100 UNIT/ML eCW1 ([facility]) Insulin, Aspart, Human 100 UNT/ML Inject able Solution [NovoLog] NovoLog 100 UNIT/ML NovoLog 100 UNIT/ML 02/04/2020 12:00:00 AM EST active NovoLog 100 UNIT/ML eCW1 ([facility]) Insulin, Aspart, Human 100 UNT/ML Inject able Solution [NovoLog] NovoLog 100 UNIT/ML NovoLog 100 UNIT/ML 02/04/2020 12:00:00 AM EST active NovoLog 100 UNIT/ML eCW1 ([facility]) Insulin, Aspart, Human 100 UNT/ML Inject able Solution [NovoLog] NovoLog 100 UNIT/ML NovoLog 100 UNIT/ML 02/04/2020 12:00:00 AM EST active NovoLog 100 UNIT/ML eCW1 ([facility]) Insulin, Aspart, Human 100 UNT/ML Inject able Solution [NovoLog] NovoLog 100 UNIT/ML NovoLog 100 UNIT/ML 02/04/2020 12:00:00 AM EST active NovoLog 100 UNIT/ML eCW1 ([facility]) Insulin, Aspart, Human 100 UNT/ML Inject able Solution [NovoLog] NovoLog 100 UNIT/ML NovoLog 100 UNIT/ML 02/04/2020 12:00:00 AM EST active NovoLog 100 UNIT/ML eCW1 ([facility]) Insulin, Aspart, Human 100 UNT/ML Inject able Solution [NovoLog] NovoLog 100 UNIT/ML NovoLog 100 UNIT/ML 02/04/2020 12:00:00 AM EST active NovoLog 100 UNIT/ML eCW1 ([facility]) Insulin, Aspart, Human 100 UNT/ML Inject able Solution [NovoLog] NovoLog 100 UNIT/ML NovoLog 100 UNIT/ML 02/04/2020 12:00:00 AM EST active NovoLog 100 UNIT/ML eCW1 ([facility]) pregabalin 200 MG Oral Capsule Pregabalin 01/17/2020 12:00:00 AM EST ORAL active [facility] duloxetine 60 MG Delayed Release Oral Capsule Duloxetine HCL 01/17/2020 12:00:00 AM EST ORAL active [facility] ([facility]) pregabalin 200 MG Oral Capsule [Lyrica] Lyrica 200 MG Lyrica 200 MG 12/20/2019 12:00:00 AM EDT active Lyrica 2 00 MG eCW1 ([facility]) pregabalin 200 MG Oral Capsule [Lyrica] Lyrica 200 MG Lyrica 200 MG 12/20/2019 12:00:00 AM EDT active Lyrica 2 00 MG eCW1 ([facility]) pregabalin 200 MG Oral Capsule [Lyrica] Lyrica 200 MG Lyrica 200 MG 12/20/2019 12:00:00 AM EDT active Lyrica 2 00 MG eCW1 ([facility]) pregabalin 200 MG Oral Capsule [Lyrica] Lyrica 200 MG Lyrica 200 MG 12/20/2019 12:00:00 AM EDT active Lyrica 2 00 MG eCW1 ([facility]) pregabalin 200 MG Oral Capsule [Lyrica] Lyrica 200 MG Lyrica 200 MG 12/20/2019 12:00:00 AM EDT active Lyrica 2 00 MG eCW1 ([facility]) pregabalin 200 MG Oral Capsule [Lyrica] Lyrica 200 MG Lyrica 200 MG 12/20/2019 12:00:00 AM EDT active Lyrica 2 00 MG eCW1 ([facility]) pregabalin 200 MG Oral Capsule [Lyrica] Lyrica 200 MG Lyrica 200 MG 12/20/2019 12:00:00 AM EDT active Lyrica 2 00 MG eCW1 ([facility]) pregabalin 200 MG Oral Capsule [Lyrica] Lyrica 200 MG Lyrica 200 MG 12/20/2019 12:00:00 AM EDT active Lyrica 2 00 MG eCW1 ([facility]) pregabalin 200 MG Oral Capsule [Lyrica] Lyrica 200 MG Lyrica 200 MG 12/20/2019 12:00:00 AM EDT active Lyrica 2 00 MG eCW1 ([facility]) pregabalin 200 MG Oral Capsule [Lyrica] Lyrica 200 MG Lyrica 200 MG 12/20/2019 12:00:00 AM EDT active Lyrica 2 00 MG eCW1 ([facility]) pregabalin 200 MG Oral Capsule [Lyrica] Lyrica 200 MG Lyrica 200 MG 12/20/2019 12:00:00 AM EDT active Lyrica 2 00 MG eCW1 ([facility]) pregabalin 200 MG Oral Capsule [Lyrica] Lyrica 200 MG Lyrica 200 MG 12/20/2019 12:00:00 AM EDT active Lyrica 2 00 MG eCW1 ([facility]) pregabalin 200 MG Oral Capsule [Lyrica] Lyrica 200 MG Lyrica 200 MG 12/20/2019 12:00:00 AM EDT active Lyrica 2 00 MG eCW1 ([facility]) pregabalin 200 MG Oral Capsule [Lyrica] Lyrica 200 MG Lyrica 200 MG 12/20/2019 12:00:00 AM EDT active Lyrica 2 00 MG eCW1 ([facility]) pregabalin 200 MG Oral Capsule [Lyrica] Lyrica 200 MG Lyrica 200 MG 12/20/2019 12:00:00 AM EDT active Lyrica 2 00 MG eCW1 ([facility]) pregabalin 200 MG Oral Capsule [Lyrica] Lyrica 200 MG Lyrica 200 MG 12/20/2019 12:00:00 AM EDT active Lyrica 2 00 MG eCW1 ([facility]) pregabalin 200 MG Oral Capsule [Lyrica] Lyrica 200 MG Lyrica 200 MG 12/20/2019 12:00:00 AM EDT active Lyrica 2 00 MG eCW1 ([facility]) pregabalin 200 MG Oral Capsule [Lyrica] Lyrica 200 MG Lyrica 200 MG 12/20/2019 12:00:00 AM EDT active Lyrica 2 00 MG eCW1 ([facility]) pregabalin 200 MG Oral Capsule [Lyrica] Lyrica 200 MG Lyrica 200 MG 12/20/2019 12:00:00 AM EDT active Lyrica 2 00 MG eCW1 ([facility]) pregabalin 200 MG Oral Capsule [Lyrica] Lyrica 200 MG Lyrica 200 MG 12/20/2019 12:00:00 AM EDT active Lyrica 2 00 MG eCW1 ([facility]) pregabalin 200 MG Oral Capsule [Lyrica] Lyrica 200 MG Lyrica 200 MG 12/20/2019 12:00:00 AM EDT active Lyrica 2 00 MG eCW1 ([facility]) pregabalin 200 MG Oral Capsule [Lyrica] Lyrica 200 MG Lyrica 200 MG 12/20/2019 12:00:00 AM EDT active Lyrica 2 00 MG eCW1 ([facility]) pregabalin 200 MG Oral Capsule [Lyrica] Lyrica 200 MG Lyrica 200 MG 12/20/2019 12:00:00 AM EDT active Lyrica 2 00 MG eCW1 ([facility]) pregabalin 200 MG Oral Capsule [Lyrica] Lyrica 200 MG Lyrica 200 MG 12/20/2019 12:00:00 AM EDT active Lyrica 2 00 MG eCW1 ([facility]) pregabalin 200 MG Oral Capsule [Lyrica] Lyrica 200 MG Lyrica 200 MG 12/20/2019 12:00:00 AM EDT active Lyrica 2 00 MG eCW1 ([facility]) pregabalin 200 MG Oral Capsule [Lyrica] Lyrica 200 MG Lyrica 200 MG 12/20/2019 12:00:00 AM EDT active Lyrica 2 00 MG eCW1 ([facility]) pregabalin 200 MG Oral Capsule [Lyrica] Lyrica 200 MG Lyrica 200 MG 12/20/2019 12:00:00 AM EDT active Lyrica 2 00 MG eCW1 ([facility]) pregabalin 200 MG Oral Capsule [Lyrica] Lyrica 200 MG Lyrica 200 MG 12/20/2019 12:00:00 AM EDT active Lyrica 2 00 MG eCW1 ([facility]) pregabalin 200 MG Oral Capsule [Lyrica] Lyrica 200 MG Lyrica 200 MG 12/20/2019 12:00:00 AM EDT active Lyrica 2 00 MG eCW1 ([facility]) pregabalin 200 MG Oral Capsule [Lyrica] Lyrica 200 MG Lyrica 200 MG 12/20/2019 12:00:00 AM EDT active Lyrica 2 00 MG eCW1 ([facility]) pregabalin 200 MG Oral Capsule [Lyrica] Lyrica 200 MG Lyrica 200 MG 12/20/2019 12:00:00 AM EDT active Lyrica 2 00 MG eCW1 ([facility]) Acetaminophen 325 MG / Hydrocodone Mariana trate 5 MG Oral Tablet Hydrocodone- Acetaminophen 5-325 MG Hydrocodone-Acetaminophen 5-325 MG 12/17/2019 12:00:00 AM EDT active Hydrocodone-Aceta minophen 5-325 MG eCW1 ([facility]) Acetaminophen 325 MG / Hydrocodone Mariana trate 5 MG Oral Tablet Hydrocodone- Acetaminophen 5-325 MG Hydrocodone-Acetaminophen 5-325 MG 12/17/2019 12:00:00 AM EDT active Hydrocodone-Aceta minophen 5-325 MG eCW1 ([facility]) Acetaminophen 325 MG / Hydrocodone Mariana trate 5 MG Oral Tablet Hydrocodone- Acetaminophen 5-325 MG Hydrocodone-Acetaminophen 5-325 MG 12/17/2019 12:00:00 AM EDT active Hydrocodone-Aceta minophen 5-325 MG eCW1 ([facility]) Acetaminophen 325 MG / Hydrocodone Mariana trate 5 MG Oral Tablet Hydrocodone- Acetaminophen 5-325 MG Hydrocodone-Acetaminophen 5-325 MG 12/17/2019 12:00:00 AM EDT active Hydrocodone-Aceta minophen 5-325 MG eCW1 ([facility]) Acetaminophen 325 MG / Hydrocodone Mariana trate 5 MG Oral Tablet Hydrocodone- Acetaminophen 5-325 MG Hydrocodone-Acetaminophen 5-325 MG 12/17/2019 12:00:00 AM EDT active Hydrocodone-Aceta minophen 5-325 MG eCW1 ([facility]) Acetaminophen 325 MG / Hydrocodone Mariana trate 5 MG Oral Tablet Hydrocodone- Acetaminophen 5-325 MG Hydrocodone-Acetaminophen 5-325 MG 12/17/2019 12:00:00 AM EDT active Hydrocodone-Aceta minophen 5-325 MG eCW1 ([facility]) Acetaminophen 325 MG / Hydrocodone Mariana trate 5 MG Oral Tablet Hydrocodone- Acetaminophen 5-325 MG Hydrocodone-Acetaminophen 5-325 MG 12/17/2019 12:00:00 AM EDT active Hydrocodone-Aceta minophen 5-325 MG eCW1 ([facility]) Acetaminophen 325 MG / Hydrocodone Mariana trate 5 MG Oral Tablet Hydrocodone- Acetaminophen 5-325 MG Hydrocodone-Acetaminophen 5-325 MG 12/17/2019 12:00:00 AM EDT active Hydrocodone-Aceta minophen 5-325 MG eCW1 ([facility]) Acetaminophen 325 MG / Hydrocodone Mariana trate 5 MG Oral Tablet Hydrocodone- Acetaminophen 5-325 MG Hydrocodone-Acetaminophen 5-325 MG 12/17/2019 12:00:00 AM EDT active Hydrocodone-Aceta minophen 5-325 MG eCW1 ([facility]) Acetaminophen 325 MG / Hydrocodone Mariana trate 5 MG Oral Tablet Hydrocodone- Acetaminophen 5-325 MG Hydrocodone-Acetaminophen 5-325 MG 12/17/2019 12:00:00 AM EDT active Hydrocodone-Aceta minophen 5-325 MG eCW1 ([facility]) Acetaminophen 325 MG / Hydrocodone Mariana trate 5 MG Oral Tablet Hydrocodone- Acetaminophen 5-325 MG Hydrocodone-Acetaminophen 5-325 MG 12/17/2019 12:00:00 AM EDT active Hydrocodone-Aceta minophen 5-325 MG eCW1 ([facility]) Acetaminophen 325 MG / Hydrocodone Mariana trate 5 MG Oral Tablet Hydrocodone- Acetaminophen 5-325 MG Hydrocodone-Acetaminophen 5-325 MG 12/17/2019 12:00:00 AM EDT active Hydrocodone-Aceta minophen 5-325 MG eCW1 ([facility]) Acetaminophen 325 MG / Hydrocodone Mariana trate 5 MG Oral Tablet Hydrocodone- Acetaminophen 5-325 MG Hydrocodone-Acetaminophen 5-325 MG 12/17/2019 12:00:00 AM EDT active Hydrocodone-Aceta minophen 5-325 MG eCW1 ([facility]) Acetaminophen 325 MG / Hydrocodone Mariana trate 5 MG Oral Tablet Hydrocodone- Acetaminophen 5-325 MG Hydrocodone-Acetaminophen 5-325 MG 12/17/2019 12:00:00 AM EDT active Hydrocodone-Aceta minophen 5-325 MG eCW1 ([facility]) Acetaminophen 325 MG / Hydrocodone Mariana trate 5 MG Oral Tablet Hydrocodone- Acetaminophen 5-325 MG Hydrocodone-Acetaminophen 5-325 MG 12/17/2019 12:00:00 AM EDT active Hydrocodone-Aceta minophen 5-325 MG eCW1 ([facility]) Acetaminophen 325 MG / Hydrocodone Mariana trate 5 MG Oral Tablet Hydrocodone- Acetaminophen 5-325 MG Hydrocodone-Acetaminophen 5-325 MG 12/17/2019 12:00:00 AM EDT active Hydrocodone-Aceta minophen 5-325 MG eCW1 ([facility]) Acetaminophen 325 MG / Hydrocodone Mariana trate 5 MG Oral Tablet Hydrocodone- Acetaminophen 5-325 MG Hydrocodone-Acetaminophen 5-325 MG 12/17/2019 12:00:00 AM EDT active Hydrocodone-Aceta minophen 5-325 MG eCW1 ([facility]) Acetaminophen 325 MG / Hydrocodone Mariana trate 5 MG Oral Tablet Hydrocodone- Acetaminophen 5-325 MG Hydrocodone-Acetaminophen 5-325 MG 12/17/2019 12:00:00 AM EDT active Hydrocodone-Aceta minophen 5-325 MG eCW1 ([facility]) Acetaminophen 325 MG / Hydrocodone Mariana trate 5 MG Oral Tablet Hydrocodone- Acetaminophen 5-325 MG Hydrocodone-Acetaminophen 5-325 MG 12/17/2019 12:00:00 AM EDT active Hydrocodone-Aceta minophen 5-325 MG eCW1 ([facility]) 3 ML Insulin, Aspart, Human 100 UNT/ML P en Injector [NovoLog] NovoLog Flexpen 100 UNIT/ML NovoLog Flexpen 100 UNIT/ML 09/11/2019 12:00:00 AM EDT active NovoLog Flexpen 100 UNIT/ML eCW1 ([facility]) 3 ML Insulin, Aspart, Human 100 UNT/ML P en Injector [NovoLog] NovoLog Flexpen 100 UNIT/ML NovoLog Flexpen 100 UNIT/ML 09/11/2019 12:00:00 AM EDT active NovoLog Flexpen 100 UNIT/ML eCW1 ([facility]) 3 ML Insulin, Aspart, Human 100 UNT/ML P en Injector [NovoLog] NovoLog Flexpen 100 UNIT/ML NovoLog Flexpen 100 UNIT/ML 09/11/2019 12:00:00 AM EDT active NovoLog Flexpen 100 UNIT/ML eCW1 ([facility]) 3 ML Insulin, Aspart, Human 100 UNT/ML P en Injector [NovoLog] NovoLog Flexpen 100 UNIT/ML NovoLog Flexpen 100 UNIT/ML 09/11/2019 12:00:00 AM EDT active NovoLog Flexpen 100 UNIT/ML eCW1 ([facility]) 3 ML Insulin, Aspart, Human 100 UNT/ML P en Injector [NovoLog] NovoLog Flexpen 100 UNIT/ML NovoLog Flexpen 100 UNIT/ML 09/11/2019 12:00:00 AM EDT active NovoLog Flexpen 100 UNIT/ML eCW1 ([facility]) 3 ML Insulin, Aspart, Human 100 UNT/ML P en Injector [NovoLog] NovoLog Flexpen 100 UNIT/ML NovoLog Flexpen 100 UNIT/ML 09/11/2019 12:00:00 AM EDT active NovoLog Flexpen 100 UNIT/ML eCW1 ([facility]) 3 ML Insulin, Aspart, Human 100 UNT/ML P en Injector [NovoLog] NovoLog Flexpen 100 UNIT/ML NovoLog Flexpen 100 UNIT/ML 09/11/2019 12:00:00 AM EDT active NovoLog Flexpen 100 UNIT/ML eCW1 ([facility]) 3 ML Insulin, Aspart, Human 100 UNT/ML P en Injector [NovoLog] NovoLog Flexpen 100 UNIT/ML NovoLog Flexpen 100 UNIT/ML 09/11/2019 12:00:00 AM EDT active NovoLog Flexpen 100 UNIT/ML eCW1 ([facility]) Cymbalta 60 MG UNK 09/09/2019 12:00:00 AM EDT active Cymbalta 60 MG eCW1 ([facility]) Cymbalta 60 MG UNK 09/09/2019 12:00:00 AM EDT active Cymbalta 60 MG eCW1 ([facility]) Cymbalta 60 MG UNK 09/09/2019 12:00:00 AM EDT active Cymbalta 60 MG eCW1 ([facility]) Cymbalta 60 MG UNK 09/09/2019 12:00:00 AM EDT active Cymbalta 60 MG eCW1 ([facility]) Cymbalta 60 MG UNK 09/09/2019 12:00:00 AM EDT active Cymbalta 60 MG eCW1 ([facility]) Cymbalta 60 MG UNK 09/09/2019 12:00:00 AM EDT active Cymbalta 60 MG eCW1 ([facility]) Cymbalta 60 MG UNK 09/09/2019 12:00:00 AM EDT active Cymbalta 60 MG eCW1 ([facility]) Cymbalta 60 MG UNK 09/09/2019 12:00:00 AM EDT active Cymbalta 60 MG eCW1 ([facility]) Cymbalta 60 MG UNK 09/09/2019 12:00:00 AM EDT active Cymbalta 60 MG eCW1 ([facility]) Cymbalta 60 MG UNK 09/09/2019 12:00:00 AM EDT active Cymbalta 60 MG eCW1 ([facility]) Cymbalta 60 MG UNK 09/09/2019 12:00:00 AM EDT active Cymbalta 60 MG eCW1 ([facility]) Cymbalta 60 MG UNK 09/09/2019 12:00:00 AM EDT active Cymbalta 60 MG eCW1 ([facility]) Cymbalta 60 MG UNK 09/09/2019 12:00:00 AM EDT active Cymbalta 60 MG eCW1 ([facility]) Cymbalta 60 MG UNK 09/09/2019 12:00:00 AM EDT active Cymbalta 60 MG eCW1 ([facility]) Cymbalta 60 MG UNK 09/09/2019 12:00:00 AM EDT active Cymbalta 60 MG eCW1 ([facility]) Cymbalta 60 MG UNK 09/09/2019 12:00:00 AM EDT active Cymbalta 60 MG eCW1 ([facility]) Cymbalta 60 MG UNK 09/09/2019 12:00:00 AM EDT active Cymbalta 60 MG eCW1 ([facility]) Cymbalta 60 MG UNK 09/09/2019 12:00:00 AM EDT active Cymbalta 60 MG eCW1 ([facility]) Cymbalta 60 MG UNK 09/09/2019 12:00:00 AM EDT active Cymbalta 60 MG eCW1 ([facility]) Cymbalta 60 MG UNK 09/09/2019 12:00:00 AM EDT active Cymbalta 60 MG eCW1 ([facility]) Cymbalta 60 MG UNK 09/09/2019 12:00:00 AM EDT active Cymbalta 60 MG eCW1 ([facility]) Cymbalta 60 MG UNK 09/09/2019 12:00:00 AM EDT active Cymbalta 60 MG eCW1 ([facility]) Cymbalta 60 MG UNK 09/09/2019 12:00:00 AM EDT active Cymbalta 60 MG eCW1 ([facility]) Cymbalta 60 MG UNK 09/09/2019 12:00:00 AM EDT active Cymbalta 60 MG eCW1 ([facility]) Cymbalta 60 MG UNK 09/09/2019 12:00:00 AM EDT active Cymbalta 60 MG eCW1 ([facility]) Cymbalta 60 MG UNK 09/09/2019 12:00:00 AM EDT active Cymbalta 60 MG eCW1 ([facility]) Cymbalta 60 MG UNK 09/09/2019 12:00:00 AM EDT active Cymbalta 60 MG eCW1 ([facility]) Cymbalta 60 MG UNK 09/09/2019 12:00:00 AM EDT active Cymbalta 60 MG eCW1 ([facility]) Cymbalta 60 MG UNK 09/09/2019 12:00:00 AM EDT active Cymbalta 60 MG eCW1 ([facility]) Cymbalta 60 MG UNK 09/09/2019 12:00:00 AM EDT active Cymbalta 60 MG eCW1 ([facility]) Cymbalta 60 MG UNK 09/09/2019 12:00:00 AM EDT active Cymbalta 60 MG eCW1 ([facility]) Cymbalta 60 MG UNK 09/09/2019 12:00:00 AM EDT active Cymbalta 60 MG eCW1 ([facility]) Cymbalta 60 MG UNK 09/09/2019 12:00:00 AM EDT active Cymbalta 60 MG eCW1 ([facility]) normal saline flush 0.9 % injection 3 mL [id number] 08/27/2019 02:00:00 PM EDT 3 mL Intravenous active 3 mL , Intravenous, PROTOCOL, First dose on Mon08/27/19 at 1400, Pre-op
flush per protocol, D/C Main IV fluid if appropriate
[facility] Medication administered onsite sodium chloride 0.9% (NS) infusion 0953-4448-47 08/27/2019 10:00:00 A M EDT Intravenous active at 100 mL/hr, Intravenous, Continuous, Starting Mon08/27/19 at 1000, For 2 hours, Post-op [facility] Medication administered onsite Acetaminophen 325 MG Oral Tablet acetaminophen (TYLENO L) 325 MG tablet 650 mg acetaminophen (TYLENOL) 325 MG tablet 650 mg 08/27/2019 08:45:10 AM EDT 650 mg Oral active 650 mg, Or al, Every 4 hours PRN, headaches, and non cardiac pain, Starting Mon08/27/19 at 0845, Post-op
"Maximum dose of acetaminophen is 4,000 mg from all sources in 24 hours."
[facility] Medication administered onsite Nitroglycerin 0.4 MG Sublingual Tablet n itroglycerin (NITROSTAT) SL tablet 0.4 mg nitroglycerin (NITROSTAT) SL tablet 0.4 mg 08/27/2019 08:45:10 A M EDT 0.4 mg Sublingual active 0.4 mg, S ublingual, Every 5 min PRN, chest pain, Starting Mon08/27/19 at 0845, Post-op
May administer every 5 minutes for 3 doses and call cardio lab MD.
[facility] Medication administered onsite iopamidol (ISOVUE-370) 76 % [id number] 08/27/2019 08:23:38 AM EDT active As needed, Starting Mon08/27/19 at 0823, Intra-Procedu re [facility] Medication administered onsite NITROGLYCERIN 0.4 MG/ML IV SOLN [id number] 08/27/2019 08:18:05 AM EDT active As needed, Starting 08/26 at 0818, Intra-Procedure [facility] Medication administered onsite 1 ML heparin sodium, porcine 1000 UNT/ML Injection hep kait (porcine) injection heparin (porcine) injection 08/27/2019 08:16:53 AM EDT active As needed, Starting Mon08/27/19 at 0816, Intra-Procedure [facility] Medication administered onsite lidocaine 1 % injection [id number] 08/27/2019 08:16:05 AM EDT active As needed, Starting Mon08/27/19 at 0816, Intra-Procedure [facility] Medication administered onsite 2 ML Midazolam 1 MG/ML Injection midazolam (VERSED) in jection midazolam (VERSED) injection 08/27/2019 08:09:04 AM EDT active As needed, Starting Mon08/27/19 at 0809, Intra-Procedure [facility] Medication administered onsite fentaNYL Citrate (PF) (SUBLIMAZE) injection [id number] 08/27/2019 08:08:54 AM EDT active As neede d, Starting Mon08/27/19 at 0808, Intra-Procedure [facility] Medication administered onsite sodium chloride 0.9% (NS) infusion [id number] 08/27/2019 07:00:00 AM EDT 100 mL/h Intravenous active at 100 m L/hr, 100 mL/hr, Intravenous, Continuous, Starting Mon08/27/19 at 0700, Pre-op
Start two hours prior to scheduled start time
[facility] Medication administered onsite Diphenhydramine Hydrochloride 50 MG Oral Capsule diphenhydrAMINE (BENADRYL) capsule 50 mg diphenhydrAMINE (BENADRYL) capsule 50 mg 08/27/2019 07 :00:00 AM EDT 50 mg Oral completed 50 mg, Oral, [employer], Mon08/27/19 at 0700, For 1 dose, Pre-op [facility] Medication administered onsite normal saline flush 0.9 % injection 3 mL [id number] 08/27/2019 07:00:00 AM EDT 3 mL Intravenous active 3 mL , Intravenous, Every 8 hours (scheduled), First dose on Mon08/27/19 at 0700, Pre-op
Rapid push positive pressure flushing shall be performed with a 10 cc normal saline syringe to check the PATENCY of a PIV site prior to any infusion therapy initiation unless resistance is met.
[facility] Medication administered onsite apixaban 5 MG Oral Tablet [Eliquis] Eliquis 08/26/2019 12:00:00 AM E DT ORAL active [facility] ([facility]) 24 HR Isosorbide Mononitrate 30 MG Exten ded Release Oral Tablet isosorbide mononitrate (IMDUR) 30 MG 24 hr tablet isosorbide mononitrate (IMDUR) 30 MG 24 hr tablet 08/23/2019 12:00:00 AM EDT active Take 1 tablet daily two days prior to procedure [facility] Aspirin 81 MG Delayed Release Oral Tablet Aspirin Ec 2019 12:00:00 AM EDT ORAL active [facility] ( [facility]) clopidogrel 75 MG Oral Tablet Clopidogrel Bisulfate 08/13/2019 1 2:00:00 AM EDT ORAL active [facility] ( [facility]) icosapent ethyl 1000 MG Oral Capsule [Vascepa] Vascepa 08/13/2019 12:00:00 AM EDT ORAL active [facility] ([facility]) Fenofibrate 160 MG Oral Tablet Fenofibrate 2019 12:00:00 AM EDT ORAL completed [facility] ([facility]) Docusate Sodium 100 MG Oral Capsule [Colace] Colace 03/2019 12:00:00 AM EDT ORAL active [facility] ( [facility]) Omeprazole 40 MG Delayed Release Oral Capsule Omeprazole 2019 12:00:00 AM EDT ORAL active [facility] ([facility]) Cholecalciferol 2000 UNT Oral Capsule Vitamin D3 Super Stren gth 2019 12:00:00 AM EDT ORAL active M EDENT ([facility]) Chlorthalidone 25 MG Oral Tablet Chlorthalidone 2019 12:00:00 A M EDT ORAL active [facility] ([facility]) valsartan 80 MG Oral Tablet Valsartan 2019 12:00:00 AM EDT ORAL active [facility] ([facility]) pregabalin 150 MG Oral Capsule [Lyrica] Lyrica 2019 12:00:0 0 AM EDT ORAL active [facility] ([facility]) Albuterol 0.83 MG/ML Inhalant Solution Albuterol Sulfate 0 2019 12:00:00 AM EDT active [facility] ([facility]) duloxetine 60 MG Delayed Release Oral Capsule [Cymbalta] Cym nena 2019 12:00:00 AM EDT ORAL active M EDENT ([facility]) [employer] - [employer] [facility] - 08/09/2019 12:00:00 AM EDT active [employer] [facility] - eCW ([facility]) [employer] - [employer] - 08/09/2019 12:00:00 AM EDT active [employer] [facility] - eCW ([facility]) [employer] - [employer] - 08/09/2019 12:00:00 AM EDT active [employer] - eCW ([facility]) [employer] - [employer] - 08/09/2019 12:00:00 AM EDT active [employer] - eCW1 ([facility]) [employer] - [employer] - 08/09/2019 12:00:00 AM EDT active [employer] - eCW1 ([facility]) [employer] - [employer] - 08/09/2019 12:00:00 AM EDT active [employer] - eCW1 ([facility]) [employer] - [employer] - 08/09/2019 12:00:00 AM EDT active [employer] - eCW1 ([facility]) [employer] - [employer] - 08/09/2019 12:00:00 AM EDT active [employer] - eCW1 ([facility]) [employer] - [employer] - 08/09/2019 12:00:00 AM EDT active [employer] [facility] - eCW1 ([facility]) POLYETHYLENE GLYCOL 3350 105 MG/ML / Pot assium Chloride 0.94864 MEQ/ML / Sodium Bicarbonate 0.017 MEQ/ML / Sodium Chloride 0.0479 MEQ/ML Oral Solution [TriLyte] Trilyte 08/09/2019 12:00:00 AM EDT active MEDENT ([facility] ) Magnesium Hydroxide 80 MG/ML Oral Suspension Milk Of Magnesi a 08/09/2019 12:00:00 AM EDT ORAL active M EDENT ([facility] ) [employer] - [employer] - 08/09/2019 12:00:00 AM EDT active [employer] [facility] - eCW1 ([facility]) [employer] - [employer] - 08/09/2019 12:00:00 AM EDT active [employer] - eCW1 ([facility]) [employer] - [employer] - 08/09/2019 12:00:00 AM EDT active [employer] - eCW1 ([facility]) [employer] - [employer] - 08/09/2019 12:00:00 AM EDT active [employer] - eCW1 ([facility]) [employer] - [employer] - 08/09/2019 12:00:00 AM EDT active [employer] [facility] - eCW1 ([facility]) [employer] - [employer] [facility] - 08/09/2019 12:00:00 AM EDT active [employer] [facility] - eCW1 ([facility]) [employer] - [employer] - 08/09/2019 12:00:00 AM EDT active [employer] - eCW1 ([facility]) [employer] - [employer] - 08/09/2019 12:00:00 AM EDT active [employer] - eCW1 ([facility]) [employer] - [employer] - 08/09/2019 12:00:00 AM EDT active [employer] [facility] - eCW1 ([facility]) [employer] - [employer] - 08/09/2019 12:00:00 AM EDT active [employer] [facility] - eCW1 ([facility]) [employer] - [employer] - 08/09/2019 12:00:00 AM EDT active [employer] - eCW1 ([facility]) [employer] - [employer] - 08/09/2019 12:00:00 AM EDT active [employer] [facility] - eCW1 ([facility]) [employer] - [employer] - 08/09/2019 12:00:00 AM EDT active [employer] [facility] - eCW1 ([facility]) [employer] Senior - [employer] - 08/09/2019 12:00:00 AM EDT active [employer] [facility] - eCW1 ([facility]) [employer] Senior - [employer] [facility] - 08/09/2019 12:00:00 AM EDT active [employer] [facility] - eCW1 ([facility]) [employer] Senior - [employer] Senior - 08/09/2019 12:00:00 AM EDT active [employer] [facility] - eCW1 ([facility]) [employer] Senior - [employer] - 08/09/2019 12:00:00 AM EDT active [employer] [facility] - eCW1 ([facility]) [employer] Senior - [employer] Senior - 08/09/2019 12:00:00 AM EDT active [employer] [facility] - eCW1 ([facility]) [employer] Senior - [employer] Senior - 08/09/2019 12:00:00 AM EDT active [employer] [facility] - eCW1 ([facility]) [employer] Senior - [employer] Senior - 08/09/2019 12:00:00 AM EDT active [employer] [facility] - eCW1 ([facility]) [employer] Senior - [employer] Senior - 08/09/2019 12:00:00 AM EDT active [employer] [facility] - eCW1 ([facility]) [employer] Senior - [employer] Senior - 08/09/2019 12:00:00 AM EDT active [employer] [facility] - eCW1 ([facility]) [employer] Senior - [employer] Senior - 08/09/2019 12:00:00 AM EDT active [employer] [facility] - eCW1 ([facility]) [employer] Senior - [employer] Senior - 08/09/2019 12:00:00 AM EDT active [employer] [facility] - eCW1 ([facility]) [employer] Senior - [employer] Senior - 08/09/2019 12:00:00 AM EDT active 1 tab eCW1 ([facility]) [employer] Senior - [employer] Senior - 08/09/2019 12:00:00 AM EDT active [employer] [facility] - eCW1 ([facility]) [employer] Senior - [employer] Senior - 08/09/2019 12:00:00 AM EDT active [employer] [facility] - eCW1 ([facility]) 200 ACTUAT Albuterol 0.09 MG/ACTUAT Mete red Dose Inhaler [ProAir] ProAir HFA 108 (90 Base) MCG/ACT ProAir HFA 108 (90 Base) MCG/ACT 08/07/2019 12:00:00 AM EDT 2.0 {puff_as_needed} active Pro Air HFA 108 (90 Base) MCG/ACT eCW1 ([facility]) 200 ACTUAT Albuterol 0.09 MG/ACTUAT Mete red Dose Inhaler [ProAir] ProAir HFA 108 (90 Base) MCG/ACT ProAir HFA 108 (90 Base) MCG/ACT 08/07/2019 12:00:00 AM EDT 2.0 {puff_as_needed} active Pro Air HFA 108 (90 Base) MCG/ACT eCW1 ([facility]) 200 ACTUAT Albuterol 0.09 MG/ACTUAT Mete red Dose Inhaler [ProAir] ProAir HFA 108 (90 Base) MCG/ACT ProAir HFA 108 (90 Base) MCG/ACT 08/07/2019 12:00:00 AM EDT 2.0 {puff_as_needed} active Pro Air HFA 108 (90 Base) MCG/ACT eCW1 ([facility]) 200 ACTUAT Albuterol 0.09 MG/ACTUAT Mete red Dose Inhaler [ProAir] ProAir HFA 108 (90 Base) MCG/ACT ProAir HFA 108 (90 Base) MCG/ACT 08/07/2019 12:00:00 AM EDT 2.0 {puff_as_needed} active Pro Air HFA 108 (90 Base) MCG/ACT eCW1 ([facility]) valsartan 80 MG Oral Tablet Valsartan 80 MG Valsartan 80 MG 08/07/2019 12:00:00 AM EDT active Valsartan 80 MG e CW1 ([facility]) 200 ACTUAT Albuterol 0.09 MG/ACTUAT Mete red Dose Inhaler [ProAir] ProAir HFA 108 (90 Base) MCG/ACT ProAir HFA 108 (90 Base) MCG/ACT 08/07/2019 12:00:00 AM EDT 2.0 {puff_as_needed} active Pro Air HFA 108 (90 Base) MCG/ACT eCW1 ([facility]) 200 ACTUAT Albuterol 0.09 MG/ACTUAT Mete red Dose Inhaler [ProAir] ProAir HFA 108 (90 Base) MCG/ACT ProAir HFA 108 (90 Base) MCG/ACT 08/07/2019 12:00:00 AM EDT 2.0 {puff_as_needed} active Pro Air HFA 108 (90 Base) MCG/ACT eCW1 ([facility]) 200 ACTUAT Albuterol 0.09 MG/ACTUAT Mete red Dose Inhaler [ProAir] ProAir HFA 108 (90 Base) MCG/ACT ProAir HFA 108 (90 Base) MCG/ACT 08/07/2019 12:00:00 AM EDT 2.0 {puff_as_needed} active Pro Air HFA 108 (90 Base) MCG/ACT eCW1 ([facility]) BD AutoShield Duo 30G X 5 MM BD AutoShield Duo 30G X 5 MM 12:00:00 AM EDT active BD AutoShield Duo 30G X 5 MM eCW1 ([facility]) 200 ACTUAT Albuterol 0.09 MG/ACTUAT Mete red Dose Inhaler [ProAir] ProAir HFA 108 (90 Base) MCG/ACT ProAir HFA 108 (90 Base) MCG/ACT 08/07/2019 12:00:00 AM EDT 2.0 {puff_as_needed} active Pro Air HFA 108 (90 Base) MCG/ACT eCW1 ([facility]) BD AutoShield Duo 30G X 5 MM BD AutoShield Duo 30G X 5 MM 12:00:00 AM EDT active BD AutoShield Duo 30G X 5 MM eCW1 ([facility]) BD AutoShield Duo 30G X 5 MM BD AutoShield Duo 30G X 5 MM 12:00:00 AM EDT active BD AutoShield Duo 30G X 5 MM eCW1 ([facility]) BD AutoShield Duo 30G X 5 MM BD AutoShield Duo 30G X 5 MM 12:00:00 AM EDT active BD AutoShield Duo 30G X 5 MM eCW1 ([facility]) 200 ACTUAT Albuterol 0.09 MG/ACTUAT Mete red Dose Inhaler [ProAir] ProAir HFA 108 (90 Base) MCG/ACT ProAir HFA 108 (90 Base) MCG/ACT 08/07/2019 12:00:00 AM EDT 2.0 {puff_as_needed} active Pro Air HFA 108 (90 Base) MCG/ACT eCW1 ([facility]) 200 ACTUAT Albuterol 0.09 MG/ACTUAT Mete red Dose Inhaler [ProAir] ProAir HFA 108 (90 Base) MCG/ACT ProAir HFA 108 (90 Base) MCG/ACT 08/07/2019 12:00:00 AM EDT 2.0 {puff_as_needed} active Pro Air HFA 108 (90 Base) MCG/ACT eCW1 ([facility]) BD AutoShield Duo 30G X 5 MM BD AutoShield Duo 30G X 5 MM 12:00:00 AM EDT active BD AutoShield Duo 30G X 5 MM eCW1 ([facility]) BD AutoShield Duo 30G X 5 MM BD AutoShield Duo 30G X 5 MM 12:00:00 AM EDT active BD AutoShield Duo 30G X 5 MM eCW1 ([facility]) 200 ACTUAT Albuterol 0.09 MG/ACTUAT Mete red Dose Inhaler [ProAir] ProAir HFA 108 (90 Base) MCG/ACT ProAir HFA 108 (90 Base) MCG/ACT 08/07/2019 12:00:00 AM EDT 2.0 {puff_as_needed} active Pro Air HFA 108 (90 Base) MCG/ACT eCW1 ([facility]) valsartan 80 MG Oral Tablet Valsartan 80 MG Valsartan 80 MG 08/07/2019 12:00:00 AM EDT active Valsartan 80 MG e CW1 ([facility]) valsartan 80 MG Oral Tablet Valsartan 80 MG Valsartan 80 MG 08/07/2019 12:00:00 AM EDT active Valsartan 80 MG e CW1 ([facility]) BD AutoShield Duo 30G X 5 MM BD AutoShield Duo 30G X 5 MM 12:00:00 AM EDT active BD AutoShield Duo 30G X 5 MM eCW1 ([facility]) 200 ACTUAT Albuterol 0.09 MG/ACTUAT Mete red Dose Inhaler [ProAir] ProAir HFA 108 (90 Base) MCG/ACT ProAir HFA 108 (90 Base) MCG/ACT 08/07/2019 12:00:00 AM EDT 2.0 {puff_as_needed} active Pro Air HFA 108 (90 Base) MCG/ACT eCW1 ([facility]) valsartan 80 MG Oral Tablet Valsartan 80 MG Valsartan 80 MG 08/07/2019 12:00:00 AM EDT active Valsartan 80 MG e CW1 ([facility]) 200 ACTUAT Albuterol 0.09 MG/ACTUAT Mete red Dose Inhaler [ProAir] ProAir HFA 108 (90 Base) MCG/ACT ProAir HFA 108 (90 Base) MCG/ACT 08/07/2019 12:00:00 AM EDT 2.0 {puff_as_needed} active Pro Air HFA 108 (90 Base) MCG/ACT eCW1 ([facility]) BD AutoShield Duo 30G X 5 MM BD AutoShield Duo 30G X 5 MM 12:00:00 AM EDT active BD AutoShield Duo 30G X 5 MM eCW1 ([facility]) BD AutoShield Duo 30G X 5 MM BD AutoShield Duo 30G X 5 MM 12:00:00 AM EDT active BD AutoShield Duo 30G X 5 MM eCW1 ([facility]) BD AutoShield Duo 30G X 5 MM BD AutoShield Duo 30G X 5 MM 12:00:00 AM EDT active BD AutoShield Duo 30G X 5 MM eCW1 ([facility]) BD AutoShield Duo 30G X 5 MM BD AutoShield Duo 30G X 5 MM 12:00:00 AM EDT active BD AutoShield Duo 30G X 5 MM eCW1 ([facility]) 200 ACTUAT Albuterol 0.09 MG/ACTUAT Mete red Dose Inhaler [ProAir] ProAir HFA 108 (90 Base) MCG/ACT ProAir HFA 108 (90 Base) MCG/ACT 08/07/2019 12:00:00 AM EDT 2.0 {puff_as_needed} active Pro Air HFA 108 (90 Base) MCG/ACT eCW1 ([facility]) 200 ACTUAT Albuterol 0.09 MG/ACTUAT Mete red Dose Inhaler [ProAir] ProAir HFA 108 (90 Base) MCG/ACT ProAir HFA 108 (90 Base) MCG/ACT 08/07/2019 12:00:00 AM EDT 2.0 {puff_as_needed} active Pro Air HFA 108 (90 Base) MCG/ACT eCW1 ([facility]) BD AutoShield Duo 30G X 5 MM BD AutoShield Duo 30G X 5 MM 12:00:00 AM EDT active BD AutoShield Duo 30G X 5 MM eCW1 ([facility]) 200 ACTUAT Albuterol 0.09 MG/ACTUAT Mete red Dose Inhaler [ProAir] ProAir HFA 108 (90 Base) MCG/ACT ProAir HFA 108 (90 Base) MCG/ACT 08/07/2019 12:00:00 AM EDT 2.0 {puff_as_needed} active Pro Air HFA 108 (90 Base) MCG/ACT eCW1 ([facility]) BD AutoShield Duo 30G X 5 MM BD AutoShield Duo 30G X 5 MM 12:00:00 AM EDT active BD AutoShield Duo 30G X 5 MM eCW1 ([facility]) 200 ACTUAT Albuterol 0.09 MG/ACTUAT Mete red Dose Inhaler [ProAir] ProAir HFA 108 (90 Base) MCG/ACT ProAir HFA 108 (90 Base) MCG/ACT 08/07/2019 12:00:00 AM EDT 2.0 {puff_as_needed} active Pro Air HFA 108 (90 Base) MCG/ACT eCW1 ([facility]) BD AutoShield Duo 30G X 5 MM BD AutoShield Duo 30G X 5 MM 12:00:00 AM EDT active BD AutoShield Duo 30G X 5 MM eCW1 ([facility]) valsartan 80 MG Oral Tablet Valsartan 80 MG Valsartan 80 MG 08/07/2019 12:00:00 AM EDT active Valsartan 80 MG e CW1 ([facility]) 200 ACTUAT Albuterol 0.09 MG/ACTUAT Mete red Dose Inhaler [ProAir] ProAir HFA 108 (90 Base) MCG/ACT ProAir HFA 108 (90 Base) MCG/ACT 08/07/2019 12:00:00 AM EDT 2.0 {puff_as_needed} active Pro Air HFA 108 (90 Base) MCG/ACT eCW1 ([facility]) 200 ACTUAT Albuterol 0.09 MG/ACTUAT Mete red Dose Inhaler [ProAir] ProAir HFA 108 (90 Base) MCG/ACT ProAir HFA 108 (90 Base) MCG/ACT 08/07/2019 12:00:00 AM EDT 2.0 {puff_as_needed} active Pro Air HFA 108 (90 Base) MCG/ACT eCW1 ([facility]) 200 ACTUAT Albuterol 0.09 MG/ACTUAT Mete red Dose Inhaler [ProAir] ProAir HFA 108 (90 Base) MCG/ACT ProAir HFA 108 (90 Base) MCG/ACT 08/07/2019 12:00:00 AM EDT 2.0 {puff_as_needed} active Pro Air HFA 108 (90 Base) MCG/ACT eCW1 ([facility]) valsartan 80 MG Oral Tablet Valsartan 80 MG Valsartan 80 MG 08/07/2019 12:00:00 AM EDT active Valsartan 80 MG e CW1 ([facility]) BD AutoShield Duo 30G X 5 MM BD AutoShield Duo 30G X 5 MM 12:00:00 AM EDT active BD AutoShield Duo 30G X 5 MM eCW1 ([facility]) 200 ACTUAT Albuterol 0.09 MG/ACTUAT Mete red Dose Inhaler [ProAir] ProAir HFA 108 (90 Base) MCG/ACT ProAir HFA 108 (90 Base) MCG/ACT 08/07/2019 12:00:00 AM EDT 2.0 {puff_as_needed} active Pro Air HFA 108 (90 Base) MCG/ACT eCW1 ([facility]) valsartan 80 MG Oral Tablet Valsartan 80 MG Valsartan 80 MG 08/07/2019 12:00:00 AM EDT active Valsartan 80 MG e CW1 ([facility]) 200 ACTUAT Albuterol 0.09 MG/ACTUAT Mete red Dose Inhaler [ProAir] ProAir HFA 108 (90 Base) MCG/ACT ProAir HFA 108 (90 Base) MCG/ACT 08/07/2019 12:00:00 AM EDT 2.0 {puff_as_needed} active Pro Air HFA 108 (90 Base) MCG/ACT eCW1 ([facility]) 200 ACTUAT Albuterol 0.09 MG/ACTUAT Mete red Dose Inhaler [ProAir] ProAir HFA 108 (90 Base) MCG/ACT ProAir HFA 108 (90 Base) MCG/ACT 08/07/2019 12:00:00 AM EDT 2.0 {puff_as_needed} active Pro Air HFA 108 (90 Base) MCG/ACT eCW1 ([facility]) 200 ACTUAT Albuterol 0.09 MG/ACTUAT Mete red Dose Inhaler [ProAir] ProAir HFA 108 (90 Base) MCG/ACT ProAir HFA 108 (90 Base) MCG/ACT 08/07/2019 12:00:00 AM EDT 2.0 {puff_as_needed} active Pro Air HFA 108 (90 Base) MCG/ACT eCW1 ([facility]) valsartan 80 MG Oral Tablet Valsartan 80 MG Valsartan 80 MG 08/07/2019 12:00:00 AM EDT active Valsartan 80 MG e CW1 ([facility]) 200 ACTUAT Albuterol 0.09 MG/ACTUAT Mete red Dose Inhaler [ProAir] ProAir HFA 108 (90 Base) MCG/ACT ProAir HFA 108 (90 Base) MCG/ACT 08/07/2019 12:00:00 AM EDT 2.0 {puff_as_needed} active Pro Air HFA 108 (90 Base) MCG/ACT eCW1 ([facility]) valsartan 80 MG Oral Tablet Valsartan 80 MG Valsartan 80 MG 08/07/2019 12:00:00 AM EDT active Valsartan 80 MG e CW1 ([facility]) BD AutoShield Duo 30G X 5 MM BD AutoShield Duo 30G X 5 MM 12:00:00 AM EDT active BD AutoShield Duo 30G X 5 MM eCW1 ([facility]) 200 ACTUAT Albuterol 0.09 MG/ACTUAT Mete red Dose Inhaler [ProAir] ProAir HFA 108 (90 Base) MCG/ACT ProAir HFA 108 (90 Base) MCG/ACT 08/07/2019 12:00:00 AM EDT 2.0 {puff_as_needed} active Pro Air HFA 108 (90 Base) MCG/ACT eCW1 ([facility]) 200 ACTUAT Albuterol 0.09 MG/ACTUAT Mete red Dose Inhaler [ProAir] ProAir HFA 108 (90 Base) MCG/ACT ProAir HFA 108 (90 Base) MCG/ACT 08/07/2019 12:00:00 AM EDT 2.0 {puff_as_needed} active Pro Air HFA 108 (90 Base) MCG/ACT eCW1 ([facility]) BD AutoShield Duo 30G X 5 MM BD AutoShield Duo 30G X 5 MM 12:00:00 AM EDT active BD AutoShield Duo 30G X 5 MM eCW1 ([facility]) BD AutoShield Duo 30G X 5 MM BD AutoShield Duo 30G X 5 MM 12:00:00 AM EDT active BD AutoShield Duo 30G X 5 MM eCW1 ([facility]) BD AutoShield Duo 30G X 5 MM BD AutoShield Duo 30G X 5 MM 12:00:00 AM EDT active BD AutoShield Duo 30G X 5 MM eCW1 ([facility]) BD AutoShield Duo 30G X 5 MM BD AutoShield Duo 30G X 5 MM 12:00:00 AM EDT active BD AutoShield Duo 30G X 5 MM eCW1 ([facility]) 200 ACTUAT Albuterol 0.09 MG/ACTUAT Mete red Dose Inhaler [ProAir] ProAir HFA 108 (90 Base) MCG/ACT ProAir HFA 108 (90 Base) MCG/ACT 08/07/2019 12:00:00 AM EDT 2.0 {puff_as_needed} active Pro Air HFA 108 (90 Base) MCG/ACT eCW1 ([facility]) BD AutoShield Duo 30G X 5 MM BD AutoShield Duo 30G X 5 MM 12:00:00 AM EDT active BD AutoShield Duo 30G X 5 MM eCW1 ([facility]) BD AutoShield Duo 30G X 5 MM BD AutoShield Duo 30G X 5 MM 12:00:00 AM EDT active BD AutoShield Duo 30G X 5 MM eCW1 ([facility]) valsartan 80 MG Oral Tablet Valsartan 80 MG Valsartan 80 MG 08/07/2019 12:00:00 AM EDT active 1/ 2 tab eCW1 ([facility]) BD AutoShield Duo 30G X 5 MM BD AutoShield Duo 30G X 5 MM 12:00:00 AM EDT active BD AutoShield Duo 30G X 5 MM eCW1 ([facility]) BD AutoShield Duo 30G X 5 MM BD AutoShield Duo 30G X 5 MM 12:00:00 AM EDT active BD AutoShield Duo 30G X 5 MM eCW1 ([facility]) 200 ACTUAT Albuterol 0.09 MG/ACTUAT Mete red Dose Inhaler [ProAir] ProAir HFA 108 (90 Base) MCG/ACT ProAir HFA 108 (90 Base) MCG/ACT 08/07/2019 12:00:00 AM EDT 2.0 {puff_as_needed} active Pro Air HFA 108 (90 Base) MCG/ACT eCW1 ([facility]) valsartan 80 MG Oral Tablet Valsartan 80 MG Valsartan 80 MG 08/07/2019 12:00:00 AM EDT active Valsartan 80 MG e CW1 ([facility]) 200 ACTUAT Albuterol 0.09 MG/ACTUAT Mete red Dose Inhaler [ProAir] ProAir HFA 108 (90 Base) MCG/ACT ProAir HFA 108 (90 Base) MCG/ACT 08/07/2019 12:00:00 AM EDT 2.0 {puff_as_needed} active Pro Air HFA 108 (90 Base) MCG/ACT eCW1 ([facility]) BD AutoShield Duo 30G X 5 MM BD AutoShield Duo 30G X 5 MM 12:00:00 AM EDT active BD AutoShield Duo 30G X 5 MM eCW1 ([facility]) 200 ACTUAT Albuterol 0.09 MG/ACTUAT Mete red Dose Inhaler [ProAir] ProAir HFA 108 (90 Base) MCG/ACT ProAir HFA 108 (90 Base) MCG/ACT 08/07/2019 12:00:00 AM EDT 2.0 {puff_as_needed} active Pro Air HFA 108 (90 Base) MCG/ACT eCW1 ([facility]) 200 ACTUAT Albuterol 0.09 MG/ACTUAT Mete red Dose Inhaler [ProAir] ProAir HFA 108 (90 Base) MCG/ACT ProAir HFA 108 (90 Base) MCG/ACT 08/07/2019 12:00:00 AM EDT 2.0 {puff_as_needed} active Pro Air HFA 108 (90 Base) MCG/ACT eCW1 ([facility]) BD AutoShield Duo 30G X 5 MM BD AutoShield Duo 30G X 5 MM 12:00:00 AM EDT active BD AutoShield Duo 30G X 5 MM eCW1 ([facility]) BD AutoShield Duo 30G X 5 MM BD AutoShield Duo 30G X 5 MM 12:00:00 AM EDT active BD AutoShield Duo 30G X 5 MM eCW1 ([facility]) BD AutoShield Duo 30G X 5 MM BD AutoShield Duo 30G X 5 MM 12:00:00 AM EDT active BD AutoShield Duo 30G X 5 MM eCW1 ([facility]) BD AutoShield Duo 30G X 5 MM BD AutoShield Duo 30G X 5 MM 12:00:00 AM EDT active BD AutoShield Duo 30G X 5 MM eCW1 ([facility]) 200 ACTUAT Albuterol 0.09 MG/ACTUAT Mete red Dose Inhaler [ProAir] ProAir HFA 108 (90 Base) MCG/ACT ProAir HFA 108 (90 Base) MCG/ACT 08/07/2019 12:00:00 AM EDT 2.0 {puff_as_needed} active Pro Air HFA 108 (90 Base) MCG/ACT eCW1 ([facility]) BD AutoShield Duo 30G X 5 MM BD AutoShield Duo 30G X 5 MM 12:00:00 AM EDT active BD AutoShield Duo 30G X 5 MM eCW1 ([facility]) BD AutoShield Duo 30G X 5 MM BD AutoShield Duo 30G X 5 MM 12:00:00 AM EDT active BD AutoShield Duo 30G X 5 MM eCW1 ([facility]) BD AutoShield Duo 30G X 5 MM BD AutoShield Duo 30G X 5 MM 12:00:00 AM EDT active BD AutoShield Duo 30G X 5 MM eCW1 ([facility]) BD AutoShield Duo 30G X 5 MM BD AutoShield Duo 30G X 5 MM 12:00:00 AM EDT active BD AutoShield Duo 30G X 5 MM eCW1 ([facility]) 200 ACTUAT Albuterol 0.09 MG/ACTUAT Mete red Dose Inhaler [ProAir] ProAir HFA 108 (90 Base) MCG/ACT ProAir HFA 108 (90 Base) MCG/ACT 08/07/2019 12:00:00 AM EDT 2.0 {puff_as_needed} active Pro Air HFA 108 (90 Base) MCG/ACT eCW1 ([facility]) BD AutoShield Duo 30G X 5 MM BD AutoShield Duo 30G X 5 MM 12:00:00 AM EDT active BD AutoShield Duo 30G X 5 MM eCW1 ([facility]) BD AutoShield Duo 30G X 5 MM BD AutoShield Duo 30G X 5 MM 12:00:00 AM EDT active BD AutoShield Duo 30G X 5 MM eCW1 ([facility]) 200 ACTUAT Albuterol 0.09 MG/ACTUAT Mete red Dose Inhaler [ProAir] ProAir HFA 108 (90 Base) MCG/ACT ProAir HFA 108 (90 Base) MCG/ACT 08/07/2019 12:00:00 AM EDT 2.0 {puff_as_needed} active Pro Air HFA 108 (90 Base) MCG/ACT eCW1 ([facility]) Lonnie - Walker - 07/30/2019 12:00:00 AM EDT activ e Walker - eCW1 ([facility]) Lonnie - Walker - 07/30/2019 12:00:00 AM EDT activ e Walker - eCW1 ([facility]) Lonnie - Lonnie - 07/30/2019 12:00:00 AM EDT activ e Walker - eCW1 ([facility]) Lonnie - Lonnie - 07/30/2019 12:00:00 AM EDT activ e Walker - eCW1 ([facility]) Walker - Walker - 07/30/2019 12:00:00 AM EDT activ e Walker - eCW1 ([facility]) Walker - Walker - 07/30/2019 12:00:00 AM EDT activ e Walker - eCW1 ([facility]) Walker - Walker - 07/30/2019 12:00:00 AM EDT activ e Walker - eCW1 ([facility]) Walker - Walker - 07/30/2019 12:00:00 AM EDT activ e Walker - eCW1 ([facility]) Walker - Walker - 07/30/2019 12:00:00 AM EDT activ e Walker - eCW1 ([facility]) Walker - Walker - 07/30/2019 12:00:00 AM EDT activ e Walker - eCW1 ([facility]) Walker - Walker - 07/30/2019 12:00:00 AM EDT activ e Walker - eCW1 ([facility]) Walker - Walker - 07/30/2019 12:00:00 AM EDT activ e Walker - eCW1 ([facility]) Walker - Walker - 07/30/2019 12:00:00 AM EDT activ e Walker - eCW1 ([facility]) Walker - Walker - 07/30/2019 12:00:00 AM EDT active 4 wheeled walker with seat eCW1 ([facility]) Walker - Walker - 07/30/2019 12:00:00 AM EDT activ e Walker - eCW1 ([facility]) Walker - Walker - 07/30/2019 12:00:00 AM EDT activ e Walker - eCW1 ([facility]) Walker - Walker - 07/30/2019 12:00:00 AM EDT activ e Walker - eCW1 ([facility]) Walker - Walker - 07/30/2019 12:00:00 AM EDT activ e Walker - eCW1 ([facility]) Walker - Walker - 07/30/2019 12:00:00 AM EDT activ e Walker - eCW1 ([facility]) Walker - Walker - 07/30/2019 12:00:00 AM EDT activ e Walker - eCW1 ([facility]) Walker - Walker - 07/30/2019 12:00:00 AM EDT activ e Walker - eCW1 ([facility]) Walker - Walker - 07/30/2019 12:00:00 AM EDT activ e Walker - eCW1 ([facility]) Walker - Walker - 07/30/2019 12:00:00 AM EDT activ e Walker - eCW1 ([facility]) Walker - Walker - 07/30/2019 12:00:00 AM EDT activ e Walker - eCW1 ([facility]) Walker - Walker - 07/30/2019 12:00:00 AM EDT activ e Walker - eCW1 ([facility]) Walker - Walker - 07/30/2019 12:00:00 AM EDT activ e Walker - eCW1 ([facility]) Walker - Walker - 07/30/2019 12:00:00 AM EDT activ e Walker - eCW1 ([facility]) Walker - Walker - 07/30/2019 12:00:00 AM EDT activ e Walker - eCW1 ([facility]) Walker - Walker - 07/30/2019 12:00:00 AM EDT activ e Walker - eCW1 ([facility]) Walker - Walker - 07/30/2019 12:00:00 AM EDT activ e Walker - eCW1 ([facility]) Walker - Walker - 07/30/2019 12:00:00 AM EDT activ e Walker - eCW1 ([facility]) Walker - Walker - 07/30/2019 12:00:00 AM EDT activ e Walker - eCW1 ([facility]) Walker - Walker - 07/30/2019 12:00:00 AM EDT activ e Walker - eCW1 ([facility]) Walker - Walker - 07/30/2019 12:00:00 AM EDT activ e Walker - eCW1 ([facility]) Walker - Walker - 07/30/2019 12:00:00 AM EDT activ e Walker - eCW1 ([facility]) Walker - Walker - 07/30/2019 12:00:00 AM EDT activ e Walker - eCW1 ([facility]) Walker - Walker - 07/18/2019 12:00:00 AM EDT active 4 wheeled walker with seat eCW1 ([facility]) May Have - UNK 07/16/2019 12:00:00 AM EDT active May Have - eCW1 ([facility]) May Have - UNK 07/16/2019 12:00:00 AM EDT active May Have - eCW1 ([facility]) May Have - UNK 07/16/2019 12:00:00 AM EDT active May Have - eCW1 ([facility]) pregabalin 150 MG Oral Capsule [Lyrica] Lyrica 150 MG Lyrica 150 MG 07/16/2019 12:00:00 AM EDT active 1 capsul e eCW1 ([facility]) May Have - UNK 07/16/2019 12:00:00 AM EDT active May Have - eCW1 ([facility]) May Have - UNK 07/16/2019 12:00:00 AM EDT active May Have - eCW1 ([facility]) May Have - UNK 07/16/2019 12:00:00 AM EDT active May Have - eCW1 ([facility]) May Have - UNK 07/16/2019 12:00:00 AM EDT active May Have - eCW1 ([facility]) May Have - UNK 07/16/2019 12:00:00 AM EDT active May Have - eCW1 ([facility]) May Have - UNK 07/16/2019 12:00:00 AM EDT active May Have - eCW1 ([facility]) May Have - UNK 07/16/2019 12:00:00 AM EDT active May Have - eCW1 ([facility]) May Have - UNK 07/16/2019 12:00:00 AM EDT active compression stocking 15mmhg circ. at calf 43cm, size 12 shoe women's entire sock included eCW1 ([facility]) May Have - UNK 07/16/2019 12:00:00 AM EDT active May Have - eCW1 ([facility]) May Have - UNK 07/16/2019 12:00:00 AM EDT active May Have - eCW1 ([facility]) May Have - UNK 07/16/2019 12:00:00 AM EDT active May Have - eCW1 ([facility]) May Have - UNK 07/16/2019 12:00:00 AM EDT active May Have - eCW1 ([facility]) May Have - UNK 07/16/2019 12:00:00 AM EDT active May Have - eCW1 ([facility]) May Have - UNK 07/16/2019 12:00:00 AM EDT active May Have - eCW1 ([facility]) May Have - UNK 07/16/2019 12:00:00 AM EDT active May Have - eCW1 ([facility]) May Have - UNK 07/16/2019 12:00:00 AM EDT active May Have - eCW1 ([facility]) May Have - UNK 07/16/2019 12:00:00 AM EDT active May Have - eCW1 ([facility]) pregabalin 150 MG Oral Capsule [Lyrica] Lyrica 150 MG Lyrica 150 MG 07/16/2019 12:00:00 AM EDT 1.0 {capsule} active L yrica 150 MG eCW1 ([facility]) May Have - UNK 07/16/2019 12:00:00 AM EDT active May Have - eCW1 ([facility]) May Have - UNK 07/16/2019 12:00:00 AM EDT active May Have - eCW1 ([facility]) May Have - UNK 07/16/2019 12:00:00 AM EDT active May Have - eCW1 ([facility]) May Have - UNK 07/16/2019 12:00:00 AM EDT active May Have - eCW1 ([facility]) May Have - UNK 07/16/2019 12:00:00 AM EDT active May Have - eCW1 ([facility]) May Have - UNK 07/16/2019 12:00:00 AM EDT active May Have - eCW1 ([facility]) pregabalin 150 MG Oral Capsule [Lyrica] Lyrica 150 MG Lyrica 150 MG 07/16/2019 12:00:00 AM EDT 1.0 {capsule} active L yrica 150 MG eCW1 ([facility]) May Have - UNK 07/16/2019 12:00:00 AM EDT active May Have - eCW1 ([facility]) May Have - UNK 07/16/2019 12:00:00 AM EDT active May Have - eCW1 ([facility]) May Have - UNK 07/16/2019 12:00:00 AM EDT active May Have - eCW1 ([facility]) pregabalin 150 MG Oral Capsule [Lyrica] Lyrica 150 MG Lyrica 150 MG 07/16/2019 12:00:00 AM EDT active 1 capsul e eCW1 ([facility]) May Have - UNK 07/16/2019 12:00:00 AM EDT active May Have - eCW1 ([facility]) May Have - UNK 07/16/2019 12:00:00 AM EDT active May Have - eCW1 ([facility]) May Have - UNK 07/16/2019 12:00:00 AM EDT active May Have - eCW1 ([facility]) May Have - UNK 07/16/2019 12:00:00 AM EDT active May Have - eCW1 ([facility]) May Have - UNK 07/16/2019 12:00:00 AM EDT active May Have - eCW1 ([facility]) pregabalin 150 MG Oral Capsule [Lyrica] Lyrica 150 MG Lyrica 150 MG 07/16/2019 12:00:00 AM EDT 1.0 {capsule} active L yrica 150 MG eCW1 ([facility]) pregabalin 150 MG Oral Capsule [Lyrica] Lyrica 150 MG Lyrica 150 MG 07/16/2019 12:00:00 AM EDT 1.0 {capsule} active L yrica 150 MG eCW1 ([facility]) May Have - UNK 07/16/2019 12:00:00 AM EDT active May Have - eCW1 ([facility]) May Have - UNK 07/16/2019 12:00:00 AM EDT active May Have - eCW1 ([facility]) 8 HR Acetaminophen 650 MG Extended Relea se Oral Tablet [Tylenol] Tylenol 8 Hour Arthritis Pain 650 MG Tylenol 8 Hour Arthritis Pain 650 MG 07/04/2019 12:00: 00 AM EDT active Tylenol 8 Hour Ar thritis Pain 650 MG eCW1 ([facility]) 8 HR Acetaminophen 650 MG Extended Relea se Oral Tablet [Tylenol] Tylenol 8 Hour Arthritis Pain 650 MG Tylenol 8 Hour Arthritis Pain 650 MG 07/04/2019 12:00: 00 AM EDT active Tylenol 8 Hour Ar thritis Pain 650 MG eCW1 ([facility]) 8 HR Acetaminophen 650 MG Extended Relea se Oral Tablet [Tylenol] Tylenol 8 Hour Arthritis Pain 650 MG Tylenol 8 Hour Arthritis Pain 650 MG 07/04/2019 12:00: 00 AM EDT active Tylenol 8 Hour Ar thritis Pain 650 MG eCW1 ([facility]) 8 HR Acetaminophen 650 MG Extended Relea se Oral Tablet [Tylenol] Tylenol 8 Hour Arthritis Pain 650 MG Tylenol 8 Hour Arthritis Pain 650 MG 07/04/2019 12:00: 00 AM EDT active Tylenol 8 Hour Ar thritis Pain 650 MG eCW1 ([facility]) 8 HR Acetaminophen 650 MG Extended Relea se Oral Tablet [Tylenol] Tylenol 8 Hour Arthritis Pain 650 MG Tylenol 8 Hour Arthritis Pain 650 MG 07/04/2019 12:00: 00 AM EDT active Tylenol 8 Hour Ar thritis Pain 650 MG eCW1 ([facility]) 8 HR Acetaminophen 650 MG Extended Relea se Oral Tablet [Tylenol] Tylenol 8 Hour Arthritis Pain 650 MG Tylenol 8 Hour Arthritis Pain 650 MG 07/04/2019 12:00: 00 AM EDT active Tylenol 8 Hour Ar thritis Pain 650 MG eCW1 ([facility]) 8 HR Acetaminophen 650 MG Extended Relea se Oral Tablet [Tylenol] Tylenol 8 Hour Arthritis Pain 650 MG Tylenol 8 Hour Arthritis Pain 650 MG 07/04/2019 12:00: 00 AM EDT active Tylenol 8 Hour Ar thritis Pain 650 MG eCW1 ([facility]) 8 HR Acetaminophen 650 MG Extended Relea se Oral Tablet [Tylenol] Tylenol 8 Hour Arthritis Pain 650 MG Tylenol 8 Hour Arthritis Pain 650 MG 07/04/2019 12:00: 00 AM EDT active Tylenol 8 Hour Ar thritis Pain 650 MG eCW1 ([facility]) 8 HR Acetaminophen 650 MG Extended Relea se Oral Tablet [Tylenol] Tylenol 8 Hour Arthritis Pain 650 MG Tylenol 8 Hour Arthritis Pain 650 MG 07/04/2019 12:00: 00 AM EDT active Tylenol 8 Hour Ar thritis Pain 650 MG eCW1 ([facility]) 8 HR Acetaminophen 650 MG Extended Relea se Oral Tablet [Tylenol] Tylenol 8 Hour Arthritis Pain 650 MG Tylenol 8 Hour Arthritis Pain 650 MG 07/04/2019 12:00: 00 AM EDT active Tylenol 8 Hour Ar thritis Pain 650 MG eCW1 ([facility]) 8 HR Acetaminophen 650 MG Extended Relea se Oral Tablet [Tylenol] Tylenol 8 Hour Arthritis Pain 650 MG Tylenol 8 Hour Arthritis Pain 650 MG 07/04/2019 12:00: 00 AM EDT active Tylenol 8 Hour Ar thritis Pain 650 MG eCW1 ([facility]) 8 HR Acetaminophen 650 MG Extended Relea se Oral Tablet [Tylenol] Tylenol 8 Hour Arthritis Pain 650 MG Tylenol 8 Hour Arthritis Pain 650 MG 07/04/2019 12:00: 00 AM EDT active Tylenol 8 Hour Ar thritis Pain 650 MG eCW1 ([facility]) 8 HR Acetaminophen 650 MG Extended Relea se Oral Tablet [Tylenol] Tylenol 8 Hour Arthritis Pain 650 MG Tylenol 8 Hour Arthritis Pain 650 MG 07/04/2019 12:00: 00 AM EDT active Tylenol 8 Hour Ar thritis Pain 650 MG eCW1 ([facility]) 8 HR Acetaminophen 650 MG Extended Relea se Oral Tablet [Tylenol] Tylenol 8 Hour Arthritis Pain 650 MG Tylenol 8 Hour Arthritis Pain 650 MG 07/04/2019 12:00: 00 AM EDT active 180 eCW1 ([facility]) 8 HR Acetaminophen 650 MG Extended Relea se Oral Tablet [Tylenol] Tylenol 8 Hour Arthritis Pain 650 MG Tylenol 8 Hour Arthritis Pain 650 MG 07/04/2019 12:00: 00 AM EDT active Tylenol 8 Hour Ar thritis Pain 650 MG eCW1 ([facility]) 8 HR Acetaminophen 650 MG Extended Relea se Oral Tablet [Tylenol] Tylenol 8 Hour Arthritis Pain 650 MG Tylenol 8 Hour Arthritis Pain 650 MG 07/04/2019 12:00: 00 AM EDT active Tylenol 8 Hour Ar thritis Pain 650 MG eCW1 ([facility]) 8 HR Acetaminophen 650 MG Extended Relea se Oral Tablet [Tylenol] Tylenol 8 Hour Arthritis Pain 650 MG Tylenol 8 Hour Arthritis Pain 650 MG 07/04/2019 12:00: 00 AM EDT active Tylenol 8 Hour Ar thritis Pain 650 MG eCW1 ([facility]) 8 HR Acetaminophen 650 MG Extended Relea se Oral Tablet [Tylenol] Tylenol 8 Hour Arthritis Pain 650 MG Tylenol 8 Hour Arthritis Pain 650 MG 07/04/2019 12:00: 00 AM EDT active Tylenol 8 Hour Ar thritis Pain 650 MG eCW1 ([facility]) 8 HR Acetaminophen 650 MG Extended Relea se Oral Tablet [Tylenol] Tylenol 8 Hour Arthritis Pain 650 MG Tylenol 8 Hour Arthritis Pain 650 MG 07/04/2019 12:00: 00 AM EDT active Tylenol 8 Hour Ar thritis Pain 650 MG eCW1 ([facility]) 8 HR Acetaminophen 650 MG Extended Relea se Oral Tablet [Tylenol] Tylenol 8 Hour Arthritis Pain 650 MG Tylenol 8 Hour Arthritis Pain 650 MG 07/04/2019 12:00: 00 AM EDT active Tylenol 8 Hour Ar thritis Pain 650 MG eCW1 ([facility]) 8 HR Acetaminophen 650 MG Extended Relea se Oral Tablet [Tylenol] Tylenol 8 Hour Arthritis Pain 650 MG Tylenol 8 Hour Arthritis Pain 650 MG 07/04/2019 12:00: 00 AM EDT active Tylenol 8 Hour Ar thritis Pain 650 MG eCW1 ([facility]) 8 HR Acetaminophen 650 MG Extended Relea se Oral Tablet [Tylenol] Tylenol 8 Hour Arthritis Pain 650 MG Tylenol 8 Hour Arthritis Pain 650 MG 07/04/2019 12:00: 00 AM EDT active Tylenol 8 Hour Ar thritis Pain 650 MG eCW1 ([facility]) 8 HR Acetaminophen 650 MG Extended Relea se Oral Tablet [Tylenol] Tylenol 8 Hour Arthritis Pain 650 MG Tylenol 8 Hour Arthritis Pain 650 MG 07/04/2019 12:00: 00 AM EDT active Tylenol 8 Hour Ar thritis Pain 650 MG eCW1 ([facility]) 8 HR Acetaminophen 650 MG Extended Relea se Oral Tablet [Tylenol] Tylenol 8 Hour Arthritis Pain 650 MG Tylenol 8 Hour Arthritis Pain 650 MG 07/04/2019 12:00: 00 AM EDT active Tylenol 8 Hour Ar thritis Pain 650 MG eCW1 ([facility]) 8 HR Acetaminophen 650 MG Extended Relea se Oral Tablet [Tylenol] Tylenol 8 Hour Arthritis Pain 650 MG Tylenol 8 Hour Arthritis Pain 650 MG 07/04/2019 12:00: 00 AM EDT active Tylenol 8 Hour Ar thritis Pain 650 MG eCW1 ([facility]) 8 HR Acetaminophen 650 MG Extended Relea se Oral Tablet [Tylenol] Tylenol 8 Hour Arthritis Pain 650 MG Tylenol 8 Hour Arthritis Pain 650 MG 07/04/2019 12:00: 00 AM EDT active Tylenol 8 Hour Ar thritis Pain 650 MG eCW1 ([facility]) 8 HR Acetaminophen 650 MG Extended Relea se Oral Tablet [Tylenol] Tylenol 8 Hour Arthritis Pain 650 MG Tylenol 8 Hour Arthritis Pain 650 MG 07/04/2019 12:00: 00 AM EDT active Tylenol 8 Hour Ar thritis Pain 650 MG eCW1 ([facility]) 8 HR Acetaminophen 650 MG Extended Relea se Oral Tablet [Tylenol] Tylenol 8 Hour Arthritis Pain 650 MG Tylenol 8 Hour Arthritis Pain 650 MG 07/04/2019 12:00: 00 AM EDT active Tylenol 8 Hour Ar thritis Pain 650 MG eCW1 ([facility]) 8 HR Acetaminophen 650 MG Extended Relea se Oral Tablet [Tylenol] Tylenol 8 Hour Arthritis Pain 650 MG Tylenol 8 Hour Arthritis Pain 650 MG 07/04/2019 12:00: 00 AM EDT active Tylenol 8 Hour Ar thritis Pain 650 MG eCW1 ([facility]) 8 HR Acetaminophen 650 MG Extended Relea se Oral Tablet [Tylenol] Tylenol 8 Hour Arthritis Pain 650 MG Tylenol 8 Hour Arthritis Pain 650 MG 07/04/2019 12:00: 00 AM EDT active 180 eCW1 ([facility]) 8 HR Acetaminophen 650 MG Extended Relea se Oral Tablet [Tylenol] Tylenol 8 Hour Arthritis Pain 650 MG Tylenol 8 Hour Arthritis Pain 650 MG 07/04/2019 12:00: 00 AM EDT active Tylenol 8 Hour Ar thritis Pain 650 MG eCW1 ([facility]) 8 HR Acetaminophen 650 MG Extended Relea se Oral Tablet [Tylenol] Tylenol 8 Hour Arthritis Pain 650 MG Tylenol 8 Hour Arthritis Pain 650 MG 07/04/2019 12:00: 00 AM EDT active Tylenol 8 Hour Ar thritis Pain 650 MG eCW1 ([facility]) 8 HR Acetaminophen 650 MG Extended Relea se Oral Tablet [Tylenol] Tylenol 8 Hour Arthritis Pain 650 MG Tylenol 8 Hour Arthritis Pain 650 MG 07/04/2019 12:00: 00 AM EDT active Tylenol 8 Hour Ar thritis Pain 650 MG eCW1 ([facility]) 8 HR Acetaminophen 650 MG Extended Relea se Oral Tablet [Tylenol] Tylenol 8 Hour Arthritis Pain 650 MG Tylenol 8 Hour Arthritis Pain 650 MG 07/04/2019 12:00: 00 AM EDT active Tylenol 8 Hour Ar thritis Pain 650 MG eCW1 ([facility]) 8 HR Acetaminophen 650 MG Extended Relea se Oral Tablet [Tylenol] Tylenol 8 Hour Arthritis Pain 650 MG Tylenol 8 Hour Arthritis Pain 650 MG 07/04/2019 12:00: 00 AM EDT active 1 tab eCW1 ([facility]) 8 HR Acetaminophen 650 MG Extended Relea se Oral Tablet [Tylenol] Tylenol 8 Hour Arthritis Pain 650 MG Tylenol 8 Hour Arthritis Pain 650 MG 07/04/2019 12:00: 00 AM EDT active Tylenol 8 Hour Ar thritis Pain 650 MG eCW1 ([facility]) 8 HR Acetaminophen 650 MG Extended Relea se Oral Tablet [Tylenol] Tylenol 8 Hour Arthritis Pain 650 MG Tylenol 8 Hour Arthritis Pain 650 MG 07/04/2019 12:00: 00 AM EDT active Tylenol 8 Hour Ar thritis Pain 650 MG eCW1 ([facility]) 8 HR Acetaminophen 650 MG Extended Relea se Oral Tablet [Tylenol] Tylenol 8 Hour Arthritis Pain 650 MG Tylenol 8 Hour Arthritis Pain 650 MG 07/04/2019 12:00: 00 AM EDT active Tylenol 8 Hour Ar thritis Pain 650 MG eCW1 ([facility]) May Have - UNK 06/11/2019 12:00:00 AM EDT active rolator eCW1 ([facility]) Acetaminophen 325 MG / Hydrocodone Bitartrate 5 MG Ora l Tablet Hydrocodone Bitartrate/Acetaminophen 04/23/2019 12:00:00 AM EST ORAL active [facility] ([facility]) Magnesium Hydroxide 80 MG/ML Oral Suspension Milk Of Magnesi a 03/22/2019 12:00:00 AM EST ORAL completed [facility] ([facility], ) POLYETHYLENE GLYCOL 3350 105 MG/ML / Pot assium Chloride 0.24882 MEQ/ML / Sodium Bicarbonate 0.017 MEQ/ML / Sodium Chloride 0.0479 MEQ/ML Oral Solution [TriLyte] Trilyte 03/22/2019 12:00:00 AM EST completed [facility] ([facility], ) pregabalin 75 MG Oral Capsule Pregabalin 02/13/2019 12:00:00 AM EST ORAL completed [facility] ([facility], ) Metoprolol Tartrate 50 MG Oral Tablet me toprolol tartrate (LOPRESSOR) 50 MG tablet metoprolol tartrate (LOPRESSOR) 50 MG tablet 08/22/2016 12:0 0:00 AM EDT aborted HTN (hypertension), benign take 1 tablet by mouth once daily [facility] HTN (hypertension), benign Simvastatin 40 MG Oral Tablet simvastatin (ZOCOR) 40 M G tablet simvastatin (ZOCOR) 40 MG tablet 08/22/2016 12:00:00 AM EDT aborted Hyperlipidemia, unspecified hyperlipidemia type take 1 tablet by mouth at bedtime [facility] Hyperlipidemia, unspecified hyperlipidem ia type 60 ACTUAT Fluticasone propionate 0.5 MG/ ACTUAT / salmeterol 0.05 MG/ACTUAT Dry Powder Inhaler [Advair] ADVAIR DISKUS 500-50 MCG/DOSE DISKUS ADVAIR DISKUS 500- 50 MCG/DOSE DISKUS 08/22/2016 12:00:00 AM EDT aborted Uncomplicated asthma, unspecified asthma severity inhale 1 puff by mouth t wice a day [facility] Uncomplicated asthma, unspecified asthma severity insulin human, isophane 70 UNT/ML / Regu lar Insulin, Human 30 UNT/ML Injectable Suspension insulin NPH-insulin regular (HUMULIN) (70-30) 100 UNIT/ML injection insulin NPH-insulin regular (HUMULIN) (70-30) 100 UNIT/ML injection 06/14/2016 12:00:00 AM EDT 38 U Subcutaneous aborted T ype 2 diabetes mellitus without complication, 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 Inject 38 Units under the skin 2 (two) times a day before meals [facility] Type 2 diabetes mellitus without complic ation, unspecified residential insulin use status Lidocaine 0.05 MG/MG Topical Ointment lidocaine (XYLOC HERB) 5 % ointment lidocaine (XYLOCAINE) 5 % ointment 05/27/2016 12:00:00 AM EDT aborted APPLY SMALL AMOUNT OF OINTME NT TO GAUZE PAD AND APPLY PAD TO AFFECTED AREA (12 HRS ON 12 HRS OFF) [facility] terbinafine 250 MG Oral Tablet terbinafine (LAMISIL) 2 50 MG tablet terbinafine (LAMISIL) 250 MG tablet 05/26/2016 12:00:00 AM EDT aborted take 1 tablet by mouth once daily [facility] Trazodone Hydrochloride 50 MG Oral Tablet traZODone (D ESYREL) 50 MG tablet traZODone (DESYREL) 50 MG tablet 03/21/2016 12:00:00 AM EST aborted take 1 and 1/2 tablets by mouth at bedtime [facility] Lisinopril 40 MG Oral Tablet lisinopril (PRINIVIL,ZEST RIL) 40 MG tablet lisinopril (PRINIVIL,ZESTRIL) 40 MG tablet 02/12/2016 12:00:00 AM EST 40 mg Oral aborted HTN (hypertension), benign Take 1 tablet (40 mg total) by mouth daily [facility] HTN (hypertension), benign Metformin hydrochloride 1000 MG Oral Tab let metFORMIN (GLUCOPHAGE) 1000 MG tablet metFORMIN (GLUCOPHAGE) 1000 MG tablet 02/12/2016 12:00:00 AM EST 1000 mg Oral aborted Type II or unsp ecified type diabetes mellitus without mention of complication, not stated as uncontrolled Ta ke 1 tablet (1,000 mg total) by mouth 2 (two) times a day with meals [facility] Type II or unspecified type diabetes bill litus without mention of complication, not stated as uncontrolled INSULIN SYRINGE .5CC/28G 28G X 1/2" 0.5 ML [facility] [id number] 12/17/2015 12:00:00 AM EDT 18 U Does not apply aborted Type 2 diabetes mellitus without complication 18 Units by Does not apply route 2 (two) times a day [facility] Type 2 diabetes mellitus without complic ation Ergocalciferol 31299 UNT Oral Capsule vi tamin D, Ergocalciferol, 51246 UNITS CAPS vitamin D, Ergocalciferol, 39612 UNITS CAPS 11/18/2015 12:00:00 AM EDT 1 {capsule} Oral aborted Vitamin D deficiency Take 1 capsule by mouth every 30 (thirty) days [facility] Vitamin D deficiency clopidogrel 75 MG Oral Tablet clopidogrel (PLAVIX) 75 MG tablet clopidogrel (PLAVIX) 75 MG tablet 75 mg Oral aborted Take 75 mg by mouth daily Prior to procedure [facility] 24 HR Isosorbide Mononitrate 30 MG Exten ded Release Oral Tablet isosorbide mononitrate (IMDUR) 30 MG 24 hr tablet isosorbide mononitrate (IMDUR) 30 MG 24 hr tablet 30 mg Oral aborted Take 30 mg by mouth daily [facility] Insurance Providers Payer name Policy type / Coverage type Policy ID Covered alliance party ID Covered alliance party's relationship to maxwell Policy Maxwell Plan Information [facility] [id number] SP [id number] EMEDNY [id number] SP [id number] HUMANA GOLD [id number] SP [id number] HUMANA GOLD [id number] SP [id number] EMEDNY [id number] SP [id number] MEDICARE COMPLETE [id number] SP [id number] MEDICARE COMPLETE [id number] SP [id number] MEDICARE [id number] SP [id number] MEDICARE COMPLETE [id number] SP [id number] MEDICARE COMPLETE [id number] SP [id number] MEDICARE COMPLETE [id number] SP [id number] MEDICAID [id number] S [id number] MEDICARE COMPLETE-[facility] O [id number] S [id number] MEDICARE [id number] SP [id number] [id number] INSURANCE COVID-19 [id number] MEDICAID [id number] MEDICARE [id number] MEDICARE [id number] [place] [id number] T29 MEDICAID [id number] [place] [id number] INSURANCE COVID-19 COVID [place] C OVID MEDICAID [id number] SP [id number] [employer] [id number] SP [id number] MEDICARE [id number] SP [id number] T29 MEDICARE COMPLETE [id number] SP [id number] MEDICARE C [id number] S [id number] MEDICARE [id number] SP [id number] A Unitedhealthcare Secure Horizons P [id number] S [id number] Medicaid S [id number] S [id number] MEDICARE COMPLETE [id number] SP [id number] Unitedhealthcare Secure Horizons P [id number] S [id number] MEDICARE [id number] SP [id number] A [facility] Medicare Solutions F [id number] SELF [id number] Medicaid [facility] S D [id number] SELF [id number] MEDICAID [id number] SP [id number] MEDICARE COMPLETE [id number] SP [id number] Unitedhealthcare Secure Horizons P [id number] S [id number] Medicare Wrap S [id number] S [id number] Medicare Wrap S [id number] S [id number] Medicaid Medigap Part B [id number] Self [id number] [facility]-Medicare Solutions Commercial [id number] Self [id number] Medicaid Medigap Part B [id number] Self [id number] [facility]-Medicare Solutions Commercial [id number] Self [id number] Medicare C [id number] SELF [id number] Medicaid [facility] S D [id number] SELF [id number] DME Jurisdiction A NHIC C [id number] SELF [id number] [facility] Medicare F [id number] SELF [id number] [facility] Medicare Solutions F [id number] SELF [id number] [facility] Medicare Solutions F [id number] SELF [id number] Medicaid [facility] S D [id number] SELF [id number] [facility] Medicare [place] F [id number] SELF [id number] Medicaid Medicaid [id number] Self [id number] [employer] Commercial [id number] Self [id number] [facility] Secure Horizons P [id number] S [id number] Medicare Wrap O [id number] S [id number] Medicaid Medicaid [id number] Self [id number] [employer] Commercial [id number] Self [id number] ANSI-Medicare Part B [id number] ANSI-Medicaid [id number] Medicaid Medicaid [id number] Self [id number] [employer] Commercial [id number] Self [id number] ANSI-Medicare Part B [id number] ANSI-Medicaid [id number] [employer] UNHC MEDICARE O/P [id number] 18 [id number] MEDICARE PART B-O/P [id number] 18 [id number] [place] Medicare Primary [id number] Self [id number] [place] Med[place] Part B [id number] Self [id number] [employer] [place] Medigap Part B [id number] Self [id number] Unitedhealthcare Medicare Commercial [id number] Self [id number] Medicare [facility] Medicare Primary [id number] Self [id number] Medicaid Medicaid [id number] Self [id number] [employer] Commercial [id number] Self [id number] Medicare [facility] Medicare Primary [id number] Self [id number] [place] Medigap Part B [id number] Self [id number] Medicaid Medicaid [id number] Self [id number] [employer] Commercial [id number] Self [id number] Medicare [facility] Medicare Primary [id number] Self [id number] [place]ig[place] Part B [id number] Self [id number] MEDICARE COMPLETE [id number] SP [id number] MEDICAID [id number] SP [id number] [place] Medig[place] Part B [id number] Self [id number] [place] [facility] (HMO) [id number] Self [id number] [facility] MEDICARE [id number] [place] [id number] MEDICAID [id number] [place] [id number] [facility] MEDICARE [id number] [place] [id number] MEDICARE [id number] [place] [id number] A MEDICAID [id number] [place] [id number] MEDICARE [id number] [place] [id number] [place] Medigap Part B Self [facility] Commercial Self MEDICARE COMPLETE [id number] SP [id number] MEDICARE [facility] [id number] SELF [id number] MEDICAID [id number] SELF [id number] MEDICARE [id number] SELF [id number] A SELF PAY UNAVAILABLE SELF UNAVAILA BLE [employer] [id number] SP [id number] Problems, Conditions, and Diagnoses Code Display Name Description Problem Type Effective Dates Data Source(s) K44.9 [id number] Hiatal hernia Problem 02/21/2020 12:00:00 AM EST eCW1 ([facility]) J44.9 41928447 Chronic obstructive pulmonary di sease, unspecified COPD type Problem 02/21/2020 12:00:00 AM EST eCW1 ([facility]) R94.39 Abnormal stress test Abnormal stress test [id number] 08/27/2019 12:00:00 AM EDT [facility] I10 Essential hypertension, benign Essential hypertension, benign 58539756 08/15/2019 12:00:00 AM EDT [facility] E11.69 Type 2 diabetes mellitus with other spec ified complication Type 2 diabetes mellitus with other specified complication [id number] 12:00:00 AM EDT [facility] N18.3 Chronic kidney disease, stage III (moder ate) Chronic kidney disease, stage III (moderate) 40152160 08/15/2019 12:00:00 AM EDT [facility] R07.9 Chest pain Chest pain 31491710 08/15/2019 12:00:00 AM ED T [facility] R94.31 Nonspecific abnormal electrocardiogram ( ECG) (EKG) Nonspecific abnormal electrocardiogram (ECG) (EKG) [id number] 08/15/2019 12:00:00 AM EDT [facility] Z01.810 Pre-operative cardiovascular examination Pre-operative cardiovascular examination [id number] 08/15/2019 12:00:00 AM EDT [facility] K76.0 930733614 Fatty liver Problem 06/13/2019 12:00:00 AM E DT eCW1 ([facility]) D12.2 980249742 Adenomatous polyp of ascending colon Prob anabel 06/13/2019 12:00:00 AM EDT eCW1 ([facility]) Z12.39 440878912 Breast cancer screening Problem 06/13/2019 1 2:00:00 AM EDT eCW1 ([facility]) M51.36 94730717 DDD (degenerative disc disease), lumbar P roblem 06/13/2019 12:00:00 AM EDT eCW1 ([facility]) R55 283190322 Pre-syncope Problem 06/13/2019 12:00:00 AM E DT eCW1 ([facility]) Z12.4 198904654 Cervical cancer screening Problem 06/13/2019 12:00:00 AM EDT eCW1 ([facility]) K63.5 568573189 Hyperplastic colonic polyp, unspecified p art of colon Problem 06/13/2019 12:00:00 AM EDT eCW1 ([facility]) D12.2 556739682 Adenomatous polyp of ascending colon Prob anabel 06/13/2019 12:00:00 AM EDT eCW1 ([facility]) K63.5 745424276 Hyperplastic colonic polyp, unspecified p art of colon Problem 06/13/2019 12:00:00 AM EDT eCW1 ([facility]) Z12.4 330271863 Cervical cancer screening Problem 06/13/2019 12:00:00 AM EDT eCW1 ([facility]) Z12.39 264919297 Breast cancer screening Problem 06/13/2019 1 2:00:00 AM EDT eCW1 ([facility]) R55 642813629 Pre-syncope Problem 06/13/2019 12:00:00 AM E DT eCW1 ([facility]) K76.0 336405133 Fatty liver Problem 06/13/2019 12:00:00 AM E DT eCW1 ([facility]) M51.36 31064600 DDD (degenerative disc disease), lumbar P roblem 06/13/2019 12:00:00 AM EDT eCW1 ([facility]) F32.0 Mild major depression, single episode Cu rrent mild episode of major depressive disorder, unspecified whether recurrent Problem 03/2019 12:00:00 AM EDT eCW1 ([facility]) F32.0 Mild major depression, single episode Cu rrent mild episode of major depressive disorder, unspecified whether recurrent Problem 03/2019 12:00:00 AM EDT eCW1 ([facility]) Z76.89 Persons encountering health services in other specified circumstances Assisted living facility patient 06/11/2019 07:54:49 AM EDT [facility] Z86.711 092128995 History of pulmonary embolus (PE) Problem 06/11/2019 12:00:00 AM EDT eCW1 ([facility]) E11.22 31533725 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 Problem 06/11/2019 12:00:00 AM EDT eCW1 ([facility]) E78.2 212806515 Mixed hyperlipidemia Problem 06/11/2019 12:0 0:00 AM EDT eCW1 ([facility]) Z86.718 396879077 H/O deep venous thrombosis Problem 0 12:00:00 AM EDT eCW1 ([facility]) J30.1 13658375 Seasonal allergic rhinitis due to pollen Problem 06/11/2019 12:00:00 AM EDT eCW1 ([facility]) N18.3 095860758 Chronic kidney disease, stage 3 (moderate ) Problem 06/11/2019 12:00:00 AM EDT eCW1 ([facility]) Z79.4 032683181 long-term (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 Proble m 06/11/2019 12:00:00 AM EDT eCW1 ([facility]) Z86.711 014088392 Personal history of pulmonary embolism Pr oblem 06/11/2019 12:00:00 AM EDT eCW1 ([facility]) I10 15513798 Essential hypertension Problem 06/11/2019 12 :00:00 AM EDT eCW1 ([facility]) K21.9 004354223 Gastroesophageal ref lux disease, esophagitis presence not specified Problem 06/11/2019 12:00:00 AM EDT eCW1 ([facility]) K59.00 49679527 Constipation, unspecified constipation ty pe Problem 06/11/2019 12:00:00 AM EDT eCW1 ([facility]) E11.42 878432452 Diabetic polyneuropa thy associated with type 2 diabetes mellitus Problem 06/11/2019 12:00:00 AM EDT eCW1 ([facility]) M17.0 034750536 Primary osteoarthritis of both knees Prob anabel 06/11/2019 12:00:00 AM EDT eCW1 ([facility]) E55.9 45964689 Vitamin D deficiency Problem 06/11/2019 12:0 0:00 AM EDT eCW1 ([facility]) N18.3 028697480 Chronic kidney disease, stage 3 (moderate ) Problem 06/11/2019 12:00:00 AM EDT eCW1 ([facility]) Z79.4 267110450 long-term (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 Proble m 06/11/2019 12:00:00 AM EDT eCW1 ([facility]) E55.9 08910792 Vitamin D deficiency Problem 06/11/2019 12:0 0:00 AM EDT eCW1 ([facility]) E11.22 26723082 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 Problem 06/11/2019 12:00:00 AM EDT eCW1 ([facility]) E78.2 615677823 Mixed hyperlipidemia Problem 06/11/2019 12:0 0:00 AM EDT eCW1 ([facility]) I10 61891276 Essential hypertension Problem 06/11/2019 12 :00:00 AM EDT eCW1 ([facility]) K59.00 40452553 Constipation, unspecified constipation ty pe Problem 06/11/2019 12:00:00 AM EDT eCW1 ([facility]) Z86.711 012323264 History of pulmonary embolus (PE) Problem 06/11/2019 12:00:00 AM EDT eCW1 ([facility]) E11.42 113253419 Diabetic polyneuropa thy associated with type 2 diabetes mellitus Problem 06/11/2019 12:00:00 AM EDT eCW1 ([facility]) M17.0 864402513 Primary osteoarthritis of both knees Prob anabel 06/11/2019 12:00:00 AM EDT eCW1 ([facility]) J30.1 68420654 Seasonal allergic rhinitis due to pollen Problem 06/11/2019 12:00:00 AM EDT eCW1 ([facility]) Z86.718 494833014 H/O deep venous thrombosis Problem 0 12:00:00 AM EDT eCW1 ([facility]) K21.9 875777611 Gastroesophageal ref lux disease, esophagitis presence not specified Problem 06/11/2019 12:00:00 AM EDT eC1 ([facility]) 719.45 Pain in right hip Pain in right hip 06/05/2019 02:22:29 PM EDT [facility] 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 06/05/2019 02:22:29 PM EDT [facility] 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 05/31/2019 04:13:53 PM EDT [facility] R04.0 Epistaxis Bleeding from nose 05/27/2019 03:07: 12 PM EDT [facility] 338.29 Chronic pain Chronic pain 05/24/2019 02:56:10 P M EDT [facility] 789.09 Suprapubic pain Suprapubic pain 04/18/2019 02:2 5:57 PM [facility] [id number] Carpal tunnel syndrome of right wrist Ca rpal tunnel syndrome of right wrist 04/10/2019 08:19:36 AM [facility] 787.91 Acute diarrhea Acute diarrhea 04/10/2019 08:19: 36 AM [facility] [id number] Pure hypercholesterolemia Pure hypercholesterolemia Pr oblem 03/19/2019 12:00:00 AM EST MEDENT ([facility]) I10 Essential (primary) hypertension Essential (primary) h ypertension Diagnosis 08/27/2019 06:06:00 AM EDT [facility] E11.69 Type 2 diabetes mellitus with other spec ified complication Type 2 diabetes mellitus with other spec Diagnosis 08/27/2019 06:06:00 AM EDT [facility] N18.3 Chronic kidney disease, stage 3 (moderat e) Chronic kidney disease, stage 3 (moderat Diagnosis 08/27/2019 06:06:00 AM EDT [facility] R07.9 Chest pain, unspecified Chest pain, unspecified Diagno sis 08/27/2019 06:06:00 AM EDT [facility] R94.31 Abnormal electrocardiogram [ECG] [EKG] A bnormal electrocardiogram (ECG) (EKG) Diagnosis 08/27/2019 06:06:00 AM EDT [facility] Z01.810 Encounter for preprocedural cardiovascul ar examination Encounter for preprocedural cardiovascul Diagnosis 08/27/2019 06:06:00 AM EDT [facility] Surgeries/Procedures Procedure Description Date Indications Data Source(s) RADEX HAND MINIMUM 3 VIEWS 04/08/2020 12:00:00 AM EST MED[facility] ([facility]) DEBRIDEMENT NAIL ANY METHOD 02/13/2020 12:00:00 AM EST [facility] Endoscopy Upper GI Complex Diagnostic 01/21/2020 12:00 :00 AM EST MEDENT ([facility], ) Colonoscopy,W/Directed Submucosal Injections, Any Substance 01/21/2020 12:00:00 AM EST [facility] Colonoscopy W/ Poly 01/21/2020 12:00:00 AM EST MED[facility] ([facility], ) DEBRIDEMENT NAIL ANY METHOD 12/05/2019 12:00:00 AM EDT [facility] ([facility] RADIOLOGIC EXAM KNEE COMPLETE 4/MORE VIEWS 10/16/2019 12:00:00 AM EDT [facility] ([facility]) ARTHROCENTESIS ASPIR&/INJECTION MAJOR JT/BURSA 020 12:00:00 AM EDT [facility] ([facility]) DEBRIDEMENT NAIL ANY METHOD 09/26/2019 12:00:00 AM EDT [facility] ([facility] CARDIAC CATHETERIZATION CARDIAC CATHETERIZATION Routine 08/27/2019 8:24 AM EDT Pre-operative cardiovascular examination Nonspecific abnormal electrocardiogram (ECG) (EKG) Chest pain, unspecified type Chronic kidney disease, stage III (moderate) Type 2 diabetes mellitus with other specified complication, unspecified whether 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 use Essential hypertension, benign 08/27/2019 12:24:14 PM EDT Es sential hypertension, benignType 2 diabetes mellitus with other specified complication, unspecified whether residential insulin useChronic kidney disease, stage III (moderate)Chest pain, unspecified typeNonspecific abnormal electrocardiogram (ECG) (EKG)Pre-operative cardiovascular examination [facility] Essential hypertension, benign Type 2 diabetes mellitus with other spec ified complication, unspecified whether residential insulin use Chronic kidney disease, stage III (moder ate) Chest pain, unspecified type Nonspecific abnormal electrocardiogram ( ECG) (EKG) Pre-operative cardiovascular examination GLUC BLD GLUC MNTR DEV CLEARED FDA SPEC HOME USE POCT GLUCOSE Routine 08/27/2019 7:25 AM EDT 08/27/2019 11:25:00 AM EDT [facility] ECG ROUTINE ECG W/LEAST 12 LDS TRCG ONLY W/O I&R ECG 12-LEAD Routine 08/27/2019 6:31 AM EDT 08/27/2019 10:31:44 AM EDT [facility] ECG ROUTINE ECG W/LEAST 12 LDS W/I&R 08/13/2019 12:00: 00 AM EDT [facility] ([facility]) Arterial Pressure Waveform Analysis For Assessment Of Centra l Art 08/13/2019 12:00:00 AM EDT [facility] Bronchospasm Evaluation 07/25/2019 12:00:00 AM EDT MED[facility] ([facility], ) Maximum Breathing Capacity, Maximal Voluntary Ventilation 07/25/2019 12:00:00 AM EDT [facility] ([facility] Plethysmography Determination Lung Volumes & Per Airway Resi st 07/25/2019 12:00:00 AM EDT [facility] ([facility] DIFFUSING CAPACITY 07/25/2019 12:00:00 AM EDT MED[facility] ([facility], ) Office Visit, Est Pt., Level 2 FC 07/16/2019 12:00:00 AM EDT eCW1 ([facility]) Office Visit, Est Pt., Level 4 PC 07/16/2019 12:00:00 AM EDT eCW1 ([facility]) Office Visit, New Pt., Level 4 PC 06/11/2019 12:00:00 AM EDT eCW1 ([facility]) Office Visit, New Pt., Level 2 FC 06/11/2019 12:00:00 AM EDT eCW1 ([facility]) DEBRIDEMENT NAIL ANY METHOD 6/> 05/02/2019 12:00:00 AM EST [facility] RADEX WRIST COMPLETE MINIMUM 3 VIEWS 03/19/2019 12:00: 00 AM EST [facility] ([facility]) Results ID Date Data Source [id number] 04/13/2020 08:00:00 AM EST [facility] Name Value Range Interpretation Code Description Data Adilene rce(s) Supporting Document(s) SARS coronavirus 2 RNA Not Detected [facility] This lab was ordered by [facility] and reported by [facility]. ID Date Data Source [id number] 04/06/2020 08:00:00 AM EST [facility] Name Value Range Interpretation Code Description Data Adilene rce(s) Supporting Document(s) SARS coronavirus 2 RNA Not Detected [facility] [place] This lab was ordered by [facility] and reported by [facility]. ID Date Data Source [id number] 03/30/2020 11:00:00 AM EST [facility] Name Value Range Interpretation Code Description Data Adilene rce(s) Supporting Document(s) SARS coronavirus 2 RNA Not Detected [facility] [place] This lab was ordered by [facility] and reported by [facility]. ID Date Data Source [id number] 03/23/2020 06:00:00 AM EST [facility] Name Value Range Interpretation Code Description Data Adilene rce(s) Supporting Document(s) SARS coronavirus 2 RNA Not Detected [facility] [place] This lab was ordered by [facility] and reported by [facility]. ID Date Data Source [id number] 03/16/2020 09:00:00 AM EST [facility] Name Value Range Interpretation Code Description Data Adilene rce(s) Supporting Document(s) SARS coronavirus 2 RNA Not Detected [facility] [place] This lab was ordered by [facility] and reported by [facility]. ID Date Data Source [id number] 03/09/2020 07:35:00 AM EST [facility] Name Value Range Interpretation Code Description Data Adilene rce(s) Supporting Document(s) SARS coronavirus 2 RNA [facility] This lab was ordered by [facility] and reported by [facility]. ID Date Data Source [id number] 03/02/2020 09:00:00 AM EST [facility] Name Value Range Interpretation Code Description Data Adilene rce(s) Supporting Document(s) SARS coronavirus 2 RNA [facility] This lab was ordered by [facility] and reported by [facility]. ID Date Data Source [id number] 02/26/2020 11:55:00 AM EST [facility] Name Value Range Interpretation Code Description Data Adilene rce(s) Supporting Document(s) SARS coronavirus 2 RNA [facility] This lab was ordered by [facility] and reported by [facility]. ID Date Data Source [id number] 02/26/2020 12:00:00 AM EST [facility] Name Value Range Interpretation Code Description Data Adilene rce(s) Supporting Document(s) SARS-CoV2 Rapid Antigen [facility] This lab was ordered by [facility] and reported by [facility]. ID Date Data Source [id number] 02/23/2020 08:55:00 AM EST [facility] ([facility]) Name Value Range Interpretation Code Description Data Adilene rce(s) Supporting Document(s) White Blood Count 6.9 4.0-10.0 [facility] ([facility]) Red Blood Count 4.12 4.00-5.40 [facility] ([facility]) Platelets 245 150-450 [facility] Hemoglobin 11.3 [facility] ([facility]) Hematocrit 35.1 [facility] ([facility]) ID Date Data Source [id number] 02/23/2020 05:12:00 AM EST [facility] Name Value Range Interpretation Code Description Data Adilene rce(s) Supporting Document(s) SARS coronavirus 2 RNA [Presence] in Res piratory specimen by SUZANNA with probe detection [facility] This lab was ordered by [facility] a nd reported by [facility]. ID Date Data Source [id number] 02/21/2020 02:48:00 PM EST [facility] Name Value Range Interpretation Code Description Data Adilene rce(s) Supporting Document(s) SARS coronavirus 2 RNA [facility] This lab was ordered by [facility] and reported by [facility]. ID Date Data Source [id number] 02/11/2020 09:10:00 AM EST [facility] Name Value Range Interpretation Code Description Data Adilene rce(s) Supporting Document(s) SARS coronavirus 2 RNA [facility] This lab was ordered by [facility] and reported by [facility]. ID Date Data Source [id number] 02/11/2020 12:00:00 AM EST [facility] Name Value Range Interpretation Code Description Data Adilene rce(s) Supporting Document(s) SARS-CoV2 Rapid PCR [facility] This lab was ordered by [facility] and reported by [facility]. ID Date Data Source [id number] 02/07/2020 12:00:00 AM EST [facility] Name Value Range Interpretation Code Description Data Adilene rce(s) Supporting Document(s) SARS-CoV2 Rapid Antigen [facility] This lab was ordered by [facility] and reported by [facility]. ID Date Data Source [id number] 01/21/2020 02:05:00 PM EST [facility] ([facility], ) Name Value Range Interpretation Code Description Data Adilene rce(s) Supporting Document(s) Surgical pathology study Laboratory test result MEDENT ([facility], ) FINAL DIAGNOSIS Colon, hepatic flexure polypoid mass, cold snare polypectomy: Fragments of tubular adenoma. 01/23/2020 - 1154 CLINICAL DIAGNOSIS Melena 01/22/2020 - 1249 GROSS DIAGNOSIS Received in formalin labeled "snare polyp mass @ hepatic flexure" are multiple fragments of frias tissue and fecal material measuring 1.5 x 1.0 x 0.3 cm. in aggregate. All in one. -SV 01/22/2020 - 1249 Signed MARCO ANTONIO PANDEY MD 01/23/2020 1536 ID Date Data Source [id number] 01/21/2020 12:55:00 PM EST [facility] ([facility], ) Name Value Range Interpretation Code Description Data Adilene rce(s) Supporting Document(s) Glucose [Mass/volume] in Capillary blood by Glucometer 182 mg/dL 80-115 Above high normal MEDENT ([facility], ) not to draw ID Date Data Source [id number] 01/17/2020 02:38:11 AM EST eCW1 ([facility]) Name Value Range Interpretation Code Description Data Adilene rce(s) Supporting Document(s) Hemoglobin A1c/Hemoglobin.total in Blood 8.8 HEMOGLOBIN A1c eCW1 ([facility]) ID Date Data Source [id number] 01/17/2020 02:38:09 AM EST eCW1 ([facility]) Name Value Range Interpretation Code Description Data Adilene rce(s) Supporting Document(s) 23 NT-PRO BNP eCW[facility] ID Date Data Source [id number] with Differential 01/17/2020 02:38:03 AM EST eCW1 (formerly [facility]) Name Value Range Interpretation Code Description Data Adilene rce(s) Supporting Document(s) 5.6 WHITE BLOOD COUNT eCW1 ([facility]) 36.0 HEMATOCRIT eCW1 ([facility] hospital) 4.23 RED BLOOD COUNT eCW1 (Formerly [facility]) 11.9 HEMOGLOBIN eCW1 (Critical access hospital) 28.1 MEAN CORPUSCULAR HEMOGLOBIN eC W1 ([facility]) 12.8 RED CELL DISTRIBUTION WIDTH eC W1 ([facility]) 33.1 MEAN CORPUSCULAR HGB CONC eCW1 ([facility]) 85.1 MEAN CORPUSCULAR VOLUME eCW1 ( [facility]) 10.5 MONO % eCW1 (Formerly [facility]) 38.9 LYMPH % eCW1 (Formerly [facility]) 46.8 NEUTROPHILS % eCW1 ([facility]) 241 PLATELET COUNT, AUTOMATED eCW1 ([facility]) 2.6 NEUTROPHILS # eCW1 ([facility]) 0.9 BASO % eCW1 (Formerly [facility]) 2.5 EOS % eCW1 (Formerly [facility]) 0.1 BASO # eCW1 (Formerly [facility]) 0.1 EOS # eCW1 (Formerly [facility]) 0.6 MONO # eCW1 (Formerly [facility]) 2.2 LYMPH # eCW1 (Formerly [facility]) ID Date Data Source PTH INTACT 01/17/2020 02:38:00 AM EST eCW1 ([facility]) Name Value Range Interpretation Code Description Data Adilene rce(s) Supporting Document(s) 60.5 PTH INTACT eCW1 ([facility] hospital) ID Date Data Source Comprehensive Metabolic Profile (CMP) 01/17/2020 02:37:42 AM EST eCW1 ([facility]) Name Value Range Interpretation Code Description Data Adilene rce(s) Supporting Document(s) 227 GLUCOSE, FASTING eCW1 ([facility]) 48.5 GLOMERULAR FILTRATION RATE eCW 1 ([facility]) 19 BLOOD UREA NITROGEN eCW1 ([facility]) 1.18 CREATININE FOR GFR eCW1 (formerly [facility]) 103 CHLORIDE LEVEL eCW1 ([facility]) 27 CARBON DIOXIDE LEVEL eCW1 ([facility]) 138 SODIUM LEVEL eCW1 (Formerly [facility], 1928–1983) 3.9 POTASSIUM SERUM eCW1 (Formerly [facility]) 9.0 CALCIUM LEVEL eCW1 ([facility]) 27 AST/SGOT eCW1 (Formerly [facility]) 51 ALT/SGPT eCW1 (Formerly [facility]) 116 ALKALINE PHOSPHATASE eCW1 ([facility]) 6.8 TOTAL PROTEIN eCW1 ([facility]) 3.6 ALBUMIN eCW1 (Formerly [facility]) 1.1 ALBUMIN/GLOBULIN RATIO eCW1 ([facility]) 0.3 BILIRUBIN,TOTAL eCW1 (Formerly [facility]) ID Date Data Source [id number] 01/16/2020 12:00:00 PM EST [facility] Name Value Range Interpretation Code Description Data Adilene rce(s) Supporting Document(s) SARS coronavirus 2 RNA [facility] This lab was ordered by [facility] and reported by [facility]. ID Date Data Source [id number] 08/29/2019 12:00:00 AM EDT [facility] Name Value Range Interpretation Code Description Data Adilene rce(s) Supporting Document(s) 2019-nCoV N XXX Ql SUZANNA N2 [facility] This lab was ordered by [facility] and reported by [facility]. ID Date Data Source [id number] 08/27/2019 08:50:27 AM EDT [facility] Name Value Range Interpretation Code Description Data Adilene rce(s) Supporting Document(s) EKG [facility] CCFUKl3eQvUKZfEjf6FeAtHtRQLlHS9ghvw5K1D0nCNzD4XhuPFyo5rsF4HnI0GqXYCmROUPLW2LjVWc jb2 [file] BSCgo+TgukuKMywFhrRDSTZARsCFLAMHKNV8O= ID Date Data Source [id number] 08/27/2019 08:36:16 AM EDT [facility] Name Value Range Interpretation Code Description Data Adilene rce(s) Supporting Document(s) &PDF [facility] MHHXYt7fCfKYJgCe71/NQKsjXUDjc7GlILgvNVs4VRbsJHRmL5OqsZqaNSVYI9WKMenNAJJHSnIpIJG6 FcG [file] apHp8UTmGM16PGiecHCe8KclKCv8H1Tnxc3zXAD+link trainer mechanic [file] AgICAgICAgICAgICAgICAgICAgICAgICAgICAgICAgICAgICAgICAgICAgICAgICAgICANCiAgICAgIC AgICAgICAgICAgICAgICAgICAgICAgICAgICAgICAg ICAgICAgICAgICAgICAgICAgICAgICAgICAgICAgICAgICAgICAgICAgICAgICAgICAgICAgICAgICAg ICANCiAgICAgICAgICAgICAgICAgICAgICAgICAgICAgICAgICAgICAgICAgICAgICAgICAgICAgICAg ICAgICAgICAgICAgICAgICAgICAgICAgICAgICAgIC AgICAgICAgICAgICANCiAgICAgICAgICAgICAgICAgICAgICAgICAgICAgICAgICAgICAgICAgICAgIC AgICAgICAgICAgICAgICAgICAgICAgICAgICAgICAgICAgICAgICAgICAgICAgICAgICAgICANCiAgIC AgICAgICAgICAgICAgICAgICAgICAgICAgICAgICAg ICAgICAgICAgICAgICAgICAgICAgICAgICAgICAgICAgICAgICAgICAgICAgICAgICAgICAgICAgICAg ICAgICANCiAgICAgICAgICAgICAgICAgICAgICAgICAgICAgICAgICAgICAgICAgICAgICAgICAgICAg ICAgICAgICAgICAgICAgICAgICAgICAgICAgICAgIC AgICAgICAgICAgICAgICANCiAgICAgICAgICAgICAgICAgICAgICAgICAgICAgICAgICAgICAgICAgIC AgICAgICAgICAgICAgICAgICAgICAgICAgICAgICAgICAgICAgICAgICAgICAgICAgICAgICAgICANCi AgICAgICAgICAgICAgICAgICAgICAgICAgICAgICAg ICAgICAgICAgICAgICAgICAgICAgICAgICAgICAgICAgICAgICAgICAgICAgICAgICAgICAgICAgICAg ICAgICAgICANCiAgICAgICAgICAgICAgICAgICAgICAgICAgICAgICAgICAgICAgICAgICAgICAgICAg ICAgICAgICAgICAgICAgICAgICAgICAgICAgICAgIC AgICAgICAgICAgICAgICAgICANCiAgICAgICAgICAgICAgICAgICAgICAgICAgICAgICAgICAgICAgIC AgICAgICAgICAgICAgICAgICAgICAgICAgICAgICAgICAgICAgICAgICAgICAgICAgICAgICAgICAgIC ANCjw/mVCaZ1ebgRPdfoR6V7cpGi6LYl6VRQ2tz9To BZErYXiugoQdVizUZuZqAAIdGuiHNkk2ETwsYB4ZfFIjG3NaD9UyCSybND7QYXJeOMNqyIIcIITlXQDh YnX8XCLgFWpgVQ6AwLJxPXouSDTsDWVnFdEyCOQjYVZtVXOmDD8EZYUyQ285piVlHc9RNu8GSiVcEO7s qw0ODhmsHEGfQopMXro6BBmdSL0PwKGqlIRhJWWbUY OEHiOiY6hvi6QyIemaKVRBZMhjLD4Se5JneHUcDPz+Pp5GYK5iv7QeLDnkMKXgZQ8gih9XRWbAQrXvH8 RaqNtlCXhitTtxbfWgQF7QPHZhYCDfjSYjKFcnPUKUJN7XMLnmEAS2KSugcnJerWVcHDcrNP4BWWOxpv QgMjcgMCBSDQo+Hm4MRL9he2CcVKdmIJGoFB5kie0Z ZSaJFlQrM5L6hKFvN7Q3UVrvBf9KLOHoNRYcDfYmPLKKKMhyBW5KAY4nzoH3QZ9NxPItIJLwRPAtfIBf XRo3W35njVEyUZeiLR2JWIS+Kali+Sy7UQIXdVVTnLCQmXeKpGUOPIkAwZ0BqH3GMp2FqI9WnTA86eTai woVrZGjoTA3AZW8nSEPtEILOQO0UvKKfdA4jiyZjHj KhTVVZIaEiE76pkRBfLRIuAMY1NYEmVe1FCQKqA5TxddGncGyikaQvSNXxDEABQK6PYNtugzHhpXMftU gqPJ04zSlaIM6EVc6DShNjXL0fvp9ClRYbWd8WCPZyJW4XZWEdNPPwOKKeHIR1XAEmWtHjBVfoRMWaWS VjCEP5IGPhIJJlCG7EXeSxZRJaKKGeOjIxZGSiOZBm dn9WPVBtTBH8Agu4UIIqOGPaQVKuTMxxVPLuHTLbGGdsFELvNXDjMS3WSdZgYAEwSCQ8HkApXVVrYUDb vs5ZCWElXQAdWkEjSkOrKBEaEKAmFCaaAITlFKJ2PfS6TGQnWOAeNN9AYsArZCEcEFQ7PWNeXRRvEZAv wf5DLQCrSQKyDpJ3WUBdUPUkZGEaJHyyTUQyTQU4Kj Q2HHEgWZNrEA6YHuYwQMNpMXyjBYUtTARfQWDrdi3YLSUbNBByHMRoYvXuPCDpGQHpFRtkOKSrODL0OO j6WYXoIGOsES5CHwWrDRPbFGj5BOWpBGTxVVFivb3VOAPvUHIsLBn5DoEdITRwDWBeHZhbKBLoKCB9AO D2IXGjYANqHU8OIwIjCONsYJX9SUJfDSBbKSSjzm9A RNOpBJOiJMPsMmZyAQAvERWdDGbsVSQsASH5EiZ4AIItOEKaNK4BMkSsUAQzRGA8IUqpILZqDVXghm8N FMJlPIBjBUsxNaYsPGUqJQPyZNppZZYnVCP9TVPmTPWnUMSnOW0REoHqTPHrRqNpXDKsFPCoJAQylb5U CKIaCODgFkH5DeGaXRCjIYUgJRieUHSaIWVyWCTaEU FrDKOwAC9LKtPwFWElTRV3EQfbVRYcTZTjjp1JLUBbEWG6EUT0UPOrVOOiALVdOOfbAUOiHZQ7MCE0PW UlHJOdNK1XXwHyKWSnKRUeBwexGINvTZOacu7NmPTrdDbegn1ICVhDPs0FkUuaSKUoYInyNm7egSZzUR KkIDPQGj4QvkCqDGSkAWOTJYjcNQPcVHUkULF7Mhvu JWHwGAY3JwUgZcLqQnR9ZNY7JWrwOVGrKzA8PkTqPYXhCBVmLiB0IXDyZKP8GTYmOVPzDNHfBtBeSQG+ HY8jBRn+Vk3Uf5CjlmD5pcMfVIl1EBF0Ul7QMNIUK7OJPm== ID Date Data Source [id number] 08/27/2019 08:43:03 AM EDT [facility] NT INFORMATIONPatient MRN Name Date of Age Gend*PT [id number] Manju Paz 1950 69 years F HOPPT Location Admission Date/Time Visit ID Attending ProviderCV-08/27/[id number] --- Sandra Oliva MD([id number]) EPI ID CSN Admitting Provider [id number] Sandra Oliva MD([id number])The patient is a 69-year-old woman with multiple [...] rce(s) Supporting Document(s) ID Date Data Source [id number] 08/27/2019 07:26:36 AM EDT [facility] Name Value Range Interpretation Code Description Data Adilene rce(s) Supporting Document(s) POC NOVA GLU 252 mg/dL (70-99) H Lab [facility] PERFORMED BY [facility] CLINICAL STAFF ID Date Data Source [id number] 08/24/2019 09:05:00 AM EDT [facility] Name Value Range Interpretation Code Description Data Adilene rce(s) Supporting Document(s) SARS CORONAVIRUS 2 RNA [facility] This lab was ordered by [facility] and reported by [facility]. ID Date Data Source [id number] 08/25/2019 12:07:46 PM EDT [facility] Name Value Range Interpretation Code Description Data Adilene rce(s) Supporting Document(s) SARS-COV-2 SUZANNA [facility] Not DetectedReference range: Not Detecte d Testing was performed using the marie(R) SARS-CoV-2 test. This test was developed and its performance characteristics determined by [employer]. This test has not been FDA cleared [...] result in this assay. Performed At: [facility] [address] [id number] Rm Ott MD Ph:[phone] ID Date Data Source [id number] 08/14/2019 05:15:00 PM EDT [facility] ([facility]) Name Value Range Interpretation Code Description Data Adilene rce(s) Supporting Document(s) Glucose 141 [facility] ([facility] Blood Urea Nitrogen 20 [facility] ([facility]) Creatinine 1.27 [facility] ([facility]) Glomerular filtration rate/1.73 sq M.pre dicted [Volume Rate/Area] in Serum or Plasma by Creatinine-based formula (MDRD) 44.5 [facility] ([facility]) Chloride 105 [facility] ([facility]) Potassium 3.9 [facility] ([facility] [place] Sodium 142 [facility] ([facility] Calcium 9.2 [facility] ([facility] Phosphorus 2.8 [facility] ([facility]) Carbon Dioxide 29 [facility] ([facility]) Albumin 4.0 [facility] ([facility]) ID Date Data Source [id number] 08/14/2019 05:15:00 PM EDT [facility] ([facility]) Name Value Range Interpretation Code Description Data Adliene rce(s) Supporting Document(s) White Blood Count 5.9 [facility] ([facility]) Red Blood Count 4.11 [facility] ([facility]) Hematocrit 35.8 [facility] ([facility]) Hemoglobin 11.7 [facility] ([facility]) Platelets 279 [facility] ([facility] ID Date Data Source [id number] 06/26/2019 11:01:00 AM EDT [facility] ([facility]) Name Value Range Interpretation Code Description Data Adilene rce(s) Supporting Document(s) Hemoglobin A1c/Hemoglobin.total in Blood 9.2 [facility] ([facility]) ID Date Data Source [id number] 06/26/2019 11:01:00 AM EDT [facility] ([facility]) Name Value Range Interpretation Code Description Data Adilene rce(s) Supporting Document(s) Alanine aminotransferase [Enzymatic activity/volume] in Serum or Pl asma 35 [facility] ([facility]) Albumin [Mass/volume] in Serum or Plasma 4.1 [facility] ([facility]) Chloride [Moles/volume] in Serum or Plasma 100 [facility] ([facility]) Carbon dioxide, total [Moles/volume] in Serum or Plasma 29 [facility] ([facility]) Calcium [Mass/volume] in Serum or Plasma 9.9 [facility] ([facility]) Protein [Mass/volume] in Serum or Plasma 7.1 [facility] ([facility]) Potassium [Moles/volume] in Serum or Plasma 3.9 [facility] ([facility]) Alkaline phosphatase [Enzymatic activity/volume] in Serum or Plasma 6 3 [facility] ([facility]) Urea nitrogen [Mass/volume] in Serum or Plasma 28 [facility] ([facility]) Sodium 137 [facility] ([facility]) Aspartate aminotransferase [Enzymatic activity/volume] in Serum or Plasma 23 [facility] ([facility]) Glucose 225 70-100 [facility] ([facility]) Creatinine For GFR 1.19 [facility] ([facility]) ID Date Data Source [id number] 06/26/2019 11:01:00 AM EDT [facility] ([facility]) Name Value Range Interpretation Code Description Data Adilene rce(s) Supporting Document(s) Cholesterol 158 [facility] ([facility]) Triglycerides 258 [facility] ([facility]) Cholesterol in LDL [Mass/volume] in Serum or Plasma by calculation 65 [facility] ([facility]) HDL 41 [facility] ([facility]) Chol/HDL Ratio 3.853 [facility] ([facility]) ID Date Data Source [id number] 06/05/2019 01:22:08 PM EDT [facility] Measurements & CalculationsHeight: 65 inches (5 [...] (ER) or urgent care clinic? Yes - [facility] diarrehaEmergency room (ER) or urgent care date reported today: 05/24/2019Have you seen another healthcare provider? Yes - Dr. Jimenez, [place] and pulmHcindy you seen a dentist? NoRate Your HealthIn [...] Denies fevers, vomiting, blood in stool. 05/24/2019 [facility] ER stool GI panel was positive for [...] at her home due to assisted living coronavirus jesus, she is unable to walk the halls with her friends or visit other areas of the facility. 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 Again, this would be for more detailed care in regards to her frequent ER visits, poorly controlled diabetes, physical deconditioning which does make her a fall risk.Assessed:Edema, unspecified (NRF55-S38.9) Assessment: Instructions: Please have your daughter let me know what specific [place] [facility] you went to previously for your [...] or 2) looking into switching to the fdc side of [facility] (or patient questioned going elsewhere). Again, this would be for more detailed care in regards to her frequent ER visits, poorly controlled diabetes, physical deconditioning which does make her a fall risk.Edema- unspecified: Please have your daughter let me know what specific [place] [facility] you went to previously for your desired compression socks. If she recalls where it was, I will do my best to write for them again. Plan developed in collaboration with patient and/or familyMedications:AUTOLET LANCING [id number] BLOOD GLUCOSE TEST IN VITRO STRIPPHYSICAL THERAPY EVAL AND TREATSALINE MIST SPRAY 0.65 % NASAL SOLUTIONVITAMIN D3 50 MCG (1999 [place]) ORAL CAPSULELYRICA 100 MG ORAL CAPSULEVALSARTAN 40 MG ORAL TABLETOMEPRAZOLE 40 MG ORAL CAPSULE DELAYED RELEASEK-TAB 20 MEQ ORAL TABLET EXTENDED RELEASETYLENOL 8 HOUR ARTHRITIS PAIN 650 MG ORAL TABLET EXTENDED RELEASEELIQUIS 5 MG ORAL TABLETBD AUTOSHIELD DUO 30G X 5 [id number] BLOOD GLUCOSE SYSTEM W/DEVICE KITPRAVACHOL 40 MG [...] Refills: 0 Method: Print then Give to [id number] BLOOD GLUCOSE TEST IN VITRO STRIP-Test glucose QID and prn Qty: 300[Strip] Refills: 5 Method: ElectronicAUTOLET LANCING DEVICE- Test glucose QID and prn Qty: 300[Lancet] Refills: 5 Method: ElectronicChanged: To: GE100 BLOOD GLUCOSE SYSTEM W/DEVICE KITAllergies:METOPROLOL TARTRATE (METOPROLOL TARTRATE TABS) (Critical)* LATEX (Critical)* NYLON TAPE (Severe)* QUINOLONES (Moderate)MORPHINE SULFATE (MORPHINE SULFATE) (Mild)Orders:Adult - Ofc Vst, EST, Level III [CPT-84583] Follow-Up Return to clinic: in 4 weeks for follow upMedications:AUTOLET LANCING DEVICE (LANCET DEVICES) Test glucose QID and prn #300[Lancet] x 5 Route:IN VITRO Entered and Authorized by: Marcie PABLO Method used: Electronically to [facility], In* (retail) [address] [place] [address] Note to Pharmacy: Route: IN VITRO; Indications: LONGTERM (CURRENT) USE OF INSULIN;TYPE 2 DIABETES MELLITUS WITHOUT COMPLICATIONS RxID: [id number] BLOOD GLUCOSE TEST IN VITRO STRIP (GLUCOSE BLOOD) Test glucose QID and prn #300[Strip] x 5 Route:IN VITRO Entered and Authorized by: Marcie PABLO Method used: Electronically to [facility], In* (retail) [address] [place] [address] Note to Pharmacy: Route: IN VITRO; Indications: 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 (CURRENT) USE OF INSULIN;TYPE 2 DIABETES MELLITUS WITHOUT COMPLICATIONS RxID: [id number] THERAPY EVAL AND TREAT as indicated 3x weekly x 6 weeks #1 x 0 Route:ORAL Entered and Authorized by: Marcie PABLO Method used: Print then Give to Patient Note to Pharmacy: Route: ORAL; Indications: PAIN IN RIGHT HIP RxID: [id number] THERAPY EVAL AND TREAT as indicated 3x weekly x 6 weeks #1 x 0 Route:ORAL Entered and Authorized by: Marcie PABLO Method used: Print then Give to Patient Note to Pharmacy: Route: ORAL; Indications: PAIN IN RIGHT HIP RxID: [id number] 250 MG ORAL TABLET (AZITHROMYCIN) Take 2 tablets po on day 1, then 1 tablet daily for 4 additional days #6[Tablet] x 0 Route:ORAL Entered and Authorized by: Marcie PABLO Method used: Electronically to [facility], In* (retail) [address] [place] [address] Ph: Note to Pharmacy: Route: ORAL; Indications: ENTERIC CAMPYLOBACTERIOSIS RxID: [id number] signed by Marcie PABLO on 06/11/2019 at 7:54 AM Name Value Range Interpretation Code Description Data Adilene rce(s) Supporting Document(s) ID Date Data Source [id number] 05/24/2019 05:35:00 PM EDT [facility] ([facility]) Name Value Range Interpretation Code Description Data Adilene rce(s) Supporting Document(s) Red Blood Count 3.95 4.00-5.40 [facility] ([facility]) White Blood Count 5.5 4.0-10.0 [facility] ([facility]) Hematocrit 34.7 [facility] ([facility]) Platelets 258 150-450 [facility] ([facility]) Hemoglobin 11.5 [facility] ([facility] [place]) ID Date Data Source [id number] 05/24/2019 05:35:00 PM EDT [facility] Name Value Range Interpretation Code Description Data Adilene rce(s) Supporting Document(s) Troponin Laboratory test result [facility] ([facility]) Magnesium Level 1.8 1.8-2.4 [facility] ([facility]) Lipoprotein lipase [Enzymatic activity/volume] in Serum or Plasma 100 [facility] ([facility]) ID Date Data Source [id number] 05/24/2019 05:35:00 PM EDT [facility] Name Value Range Interpretation Code Description Data Adilene rce(s) Supporting Document(s) CPK-MB 2.1 [facility] ([facility]) Creatine kinase [Enzymatic activity/volume] in Serum or Plasma 129 [facility] ([facility]) ID Date Data Source [id number] 05/24/2019 05:35:00 PM EDT [facility] Name Value Range Interpretation Code Description Data Adilene rce(s) Supporting Document(s) Alanine aminotransferase [Enzymatic activity/volume] in Serum or Pl asma 38 [facility] ([facility]) Albumin [Mass/volume] in Serum or Plasma 3.4 [facility] ([facility]) Alkaline phosphatase [Enzymatic activity/volume] in Serum or Plasma 5 7 [facility] ([facility]) Chloride [Moles/volume] in Serum or Plasma 104 [facility] ([facility]) Calcium [Mass/volume] in Serum or Plasma 8.5 [facility] ([facility]) Carbon dioxide, total [Moles/volume] in Serum or Plasma 29 [facility] ([facility]) Potassium [Moles/volume] in Serum or Plasma 3.3 [facility] ([facility]) Sodium 138 [facility] ([facility]) Protein [Mass/volume] in Serum or Plasma 6.2 [facility] ([facility]) Glucose 263 83-110 [facility] ([facility]) Creatinine For GFR 1.37 [facility] Aspartate aminotransferase [Enzymatic activity/volume] in Serum or Plasma 21 [facility] ([facility]) Urea nitrogen [Mass/volume] in Serum or Plasma [facility] ID Date Data Source [id number] 05/24/2019 02:04:44 PM EDT [facility] Measurements & CalculationsHeight: 65 inches (5 [...] been admitted to the hospital? Yes - [facility] syncope and dyspneaHospital admission date reported today: [...] for dyspnea and syncope.Pt was admitted to [facility] 05/07/19-05/09/19 for dyspnea. 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 (ICD-V58.67) (ICD10- Z79.4)Assessed:Type 2 diabetes mellitus without complications (MSS48-P42.9) A ssessment: Instructions: Poor control over her [...] soda and sugary foods.Acute right heart failure (APH43-C89.811) Assessment: Instructions: Recommend oupatient cardiac consult for evaluation of her constant breathlessness.Bleeding from nose (ICD-784.7) (VXG92-Q91.0) Assessment: Instructions: Start saline nasal spray as [...] ORAL LYRICA 75 MG ORAL CAPSULE Qty: [id number] Refills: 60[Capsule] To: LYRICA 100 MG ORAL CAPSULE-Take 1 capsule PO BID Qty: 60[Capsule] Refills: 3Allergies:METOPROLOL TARTRATE (METOPROLOL TARTRATE TABS) (Critical)* LATEX (Critical)* NYLON TAPE (Severe)* QUINOLONES (Moderate)MORPHINE SULFATE (MORPHINE SULFATE) (Mild)Orders:Endocrinology Consult [CPT-77479] Cardiology Consult [CPT-47097] Adult - Ofc Vst, EST, Level III [CPT-43806] Follow-Up Return to clinic: in 4-6 weeks for follow upAdditional Follow-Up: referral follow-upClinical Visit Summary DeclinedMedications:LYRICA 100 MG ORAL CAPSULE (PREGABALIN) Take 1 capsule PO BID #60[Capsule] x 3 Route:ORAL Entered and Authorized by: Marcie PABLO Method used: Electronically to [facility], In* (retail) [address] [place] [address] Ph: [phone] Note to Pharmacy: Route: ORAL; Indica tions: CHRONIC PAIN RxID: [id number]] Name Value Range Interpretation Code Description Data Adilene rce(s) Supporting Document(s) ID Date Data Source [id number] 05/08/2019 05:38:00 PM EST [facility] ([facility]) Name Value Range Interpretation Code Description Data Adilene rce(s) Supporting Document(s) Troponin Laboratory test result [facility] ([facility]) ID Date Data Source [id number] 05/08/2019 05:38:00 PM EST [facility] ([facility]) Name Value Range Interpretation Code Description Data Adilene rce(s) Supporting Document(s) CPK-MB 4.6 MEDENT ([facility]) Creatine kinase [Enzymatic activity/volume] in Serum or Plasma 275 MEDENT ([facility]) ID Date Data Source [id number] 04/19/2019 08:25:00 AM [facility] Name Value Range Interpretation Code Description Data Adilene rce(s) Supporting Document(s) APPEARANCE U CLEAR CLEAR N [facility] SPEC GR URIN 1.011 1.002-1.035 N [facility] UA COLOR YELLOW YELLOW N [facility] ID Date Data Source [id number] 04/18/2019 02:30:00 PM [facility] Name Value Range Interpretation Code Description Data Adilene rce(s) Supporting Document(s) HCT 37.4 % 36.0-47.0 N [facility] HGB 12.6 g/dL 12.0-15.5 N [facility] Family [facility] MCH 33.7 G/DL pg 32.0-36.5 N [facility] MCHC 29.3 PG % 27.0-33.0 [facility] PLATELETS 286 10 10*3/mm3 150-450 N [facility] RBC 4.30 10 10*6/mm3 4.00-5.40 N [facility] RDW 12.7 % 11.5-14.5 [facility] WBC TOTAL 9.4 4.0-10.0 N [facility] ID Date Data Source [id number] 04/18/2019 02:30:00 PM [facility] Name Value Range Interpretation Code Description Data Adilene rce(s) Supporting Document(s) BG FASTING 171 mg/dL 70-100 H [facility] y Health ID Date Data Source [id number] 04/18/2019 01:25:11 PM [facility] Health Measurements & CalculationsHeight: 65 inches (5 ft. [...] lives in the assisted living portion of [facility]. Pt states the nursing staff check her [...] during this visit, including review of any yjug-uec-psyhbxu medications, herbal therapies, and/or supplements.Allergy ReviewAllergy List [...] evaluate for possible bladder infection.Assessed:Acute diarrhea (ICD-787.91) (RPI16-K47.7) Assessment: Instructions: Stool culture ordered. Treasure diet, plenty of fluids. Labs drawn today to assess for dehydration and elevated white blood cell count. Hold fenofibrate until diarrhea free x 24 hours.Carpal tunnel syndrome of right wrist (WVS00-I05.01) Assessment: Instructions: Continue with surgery as scheduled ONLY if afebrile, diarrhea free, and feeling well for 24 hours prior to surgery.Assessment not Saved Acute diarrhea (ECG88-R75.7): Patient Instructions/Care Plan: Acute diarrhea: Stool culture ordered. Treasure diet, plenty of fluids. Labs drawn today [...] (Moderate)MORPHINE SULFATE (MORPHINE SULFATE) (Mild)Orders:CBC W/DIFF [CPT- 76155] COMP METABOLIC PANEL [CPT-83916] Urinalysis-automated [CPT-07896] Urine Culture & Sensitivity [CPT-07788] URINALYSIS [CPT-44494] GI Panel - Stool [CPT- 94708] 81878 - Venipuncture [CPT-62505] Adult - Ofc Vst, EST, Level III [CPT- 03398] Follow-Up Return to clinic: in 1 month [...] rce(s) Supporting Document(s) ID Date Data Source [id number] 04/03/2019 03:46:52 PM [facility] Measurements & CalculationsHeight: 65 inches 165.10 [...] you been admitted to the hospital? - [facility] stomach and bladder painsHospital admission date reported today: 11/08/2018Have you been to an emergency room (ER) or urgent care clinic? No - [facility] ER SOBEmergency room (ER) or urgent care [...] visit today, presents unaccompanied, currently living at [facility].Diarrhea x 4 days with incontinence, currently goes 3-4 times daily. Denies sick contact or medication changes. Denies fevers. Denies dietary changes.Pt has nursing staff administer her medications and check her glucoses. She also brought meal plans from [facility], scanned into chart, and states she sometimes [...] FairAssessment & Plan Problems:Added: Acute diarrhea (ICD-787.91) (FHG23-H42.7) Assessment: Instructions: Improved at this time. If diarrhea returns, please call for stool study to test for infection.Carpal tunnel syndrome of right wrist (JND41-A64.01) Assessment: Instructions: Continue per orthopedics.Assessed:Type 2 diabetes [...] * GABAPENTIN 100MG-1 po qd, * D3-50 39744 UNITS-5000 po every monday, VITAMIN D2 TABLET- take 2 tabs of 1.25mg weekly, * PRAVASTATIN SODIUM 40 MG-1 tablet po qd, * VOLTAREN GEL 1%-as directed topically 3 x per day to joints of hands for pain, KLOR-CON 20 MEQ ORAL PACKET-1 paket po qd Qty: 30[Packet] Refills: 5, HUMALOG KWIKPEN 100 UNIT/ML SUBCUTANEOUS SOLUTION VVD-EDNCHPIZ-0 units SQ for FSBS 100- 150 then [...] prnOrders:Adult - Ofc Vst, EST, Level III [CPT-59754] Follow-Up Return to clinic: in 2 weeks for diabetesMedications:Cancelled POLYETHYLENE GLYCOL 3350 ORAL POWDER (POLYETHYLENE GLYCOL 3350) 1 capful with large glass of water qd prn constipation #1[Container] x 5 Entered by: Marcie PABLO Authorized by: Tami Hernández MD Method used: Electronically to [facility], In* (retail) [address] [place] [address] RxID: [id number] HUMALOG KWIKPEN 100 UNIT/ML SUBCUTANEOUS SOLUTION PEN- INJECTOR (INSULIN LISPRO) 2 units SQ for FSBS 100-150 then per sliding scale/ MD instructions. MDD 50 units #5[Prefilled Pen Syrnge] x 5 Route:SUBCUTANEOUS Entered by: Marcie PABLO Authorized by: Ella COLON Method used: Electronically to [facility], In* (retail) [address] [place] [address] RxID: [id number] KLOR-CON 20 MEQ ORAL PACKET (POTASSIUM CHLORIDE) 1 paket po qd #30[Packet] x 5 Entered by: Marcie PABLO Authorized by: Tami Hernández MD Method used: Electronically to [facility], In* (retail) [address] [place] [address] Fax: RxID: [id number] signed by Marcie PABLO on 04/10/2019 at 8:19 AM Name Value Range Interpretation Code Description Data Adilene rce(s) Supporting Document(s) ID Date Data Source [id number] 04/02/2019 12:15:45 PM EST [facility] PCName: Manju [place]: 2Provider: Sari oLpez: 03/22/2019 History of Present IllnessContinued bilateral knee [...] document was dictated and electronically signed using [employer] software. A reasonable attempt at proof reading has been made to minimize errors. Please call with any questions. Signatures Electronically signed by : Harry Lopez M.D.; Apr 02 2019 12:15PM EST (Author) Name Value Range Interpretation Code Description Data Adilene rce(s) Supporting Document(s) Procedure Social History Code Duration Value Status Description Data Source(s ) Smoking 04/08/2020 12:00:00 AM EST Former Smoker completed Former Smoker eCW1 ([facility]) Smoking 04/08/2020 12:00:00 AM EST Former Smoker completed Former Smoker eCW1 ([facility]) Smoking 03/24/2020 12:00:00 AM EST Former Smoker completed Former Smoker eCW1 ([facility]) Smoking 03/24/2020 12:00:00 AM EST Former Smoker completed Former Smoker eCW1 ([facility]) Smoking 03/24/2020 12:00:00 AM EST Former Smoker completed Former Smoker eCW1 ([facility]) Smoking 02/27/2020 12:00:00 AM EST Former Smoker completed Former Smoker eCW1 ([facility]) Smoking 02/27/2020 12:00:00 AM EST Former Smoker completed Former Smoker eCW1 ([facility]) Smoking 02/27/2020 12:00:00 AM EST Former Smoker completed Former Smoker eCW1 ([facility]) Smoking 02/27/2020 12:00:00 AM EST Former Smoker completed Former Smoker eCW1 ([facility]) Smoking 02/27/2020 12:00:00 AM EST Former Smoker completed Former Smoker eCW1 ([facility]) Smoking 02/27/2020 12:00:00 AM EST Former Smoker completed Former Smoker eCW1 ([facility]) Smoking 02/27/2020 12:00:00 AM EST Former Smoker completed Former Smoker eCW1 ([facility]) Smoking 02/21/2020 12:00:00 AM EST Former Smoker completed Former Smoker eCW1 ([facility]) Smoking 01/07/2020 12:00:00 AM EDT Former Smoker completed Former Smoker eCW1 ([facility]) Smoking 01/07/2020 12:00:00 AM EDT Former Smoker completed Former Smoker eCW1 ([facility]) Smoking 01/07/2020 12:00:00 AM EDT Former Smoker completed Former Smoker eCW1 ([facility]) Smoking 01/07/2020 12:00:00 AM EDT Former Smoker completed Former Smoker eCW1 ([facility]) Smoking 01/07/2020 12:00:00 AM EDT Former Smoker completed Former Smoker eCW1 ([facility]) Smoking 01/07/2020 12:00:00 AM EDT Former Smoker completed Former Smoker eCW1 ([facility]) Smoking 01/07/2020 12:00:00 AM EDT Former Smoker completed Former Smoker eCW1 ([facility]) Smoking 01/07/2020 12:00:00 AM EDT Former Smoker completed Former Smoker eCW1 ([facility]) Smoking 01/07/2020 12:00:00 AM EDT Former Smoker completed Former Smoker eCW1 ([facility]) Smoking 01/07/2020 12:00:00 AM EDT Former Smoker completed Former Smoker eCW1 ([facility]) Smoking 01/07/2020 12:00:00 AM EDT Former Smoker completed Former Smoker eCW1 ([facility]) Smoking 01/07/2020 12:00:00 AM EDT Former Smoker completed Former Smoker eCW1 ([facility]) Smoking 12/12/2019 12:00:00 AM EDT - 03/13/2007 12:00:00 AM EST Patient is a former smoker completed Patient is a former smoker MEDENT ([facility], ) Smoking 10/16/2019 12:00:00 AM EDT Patient is a former smoker completed Patient is a former smoker MEDENT ([facility]) Alcohol intake 08/27/2019 12:00:00 AM EDT Not Currently completed [facility] Cigarettes smoked current (pack per day) - Reported 08/27/19 20 12:00:00 AM EDT UNK completed [facility] Smoking 08/27/2019 12:00:00 AM EDT Former smoker completed Former smoker [facility] Smoking 08/13/2019 12:00:00 AM EDT Patient is a former smoker completed Patient is a former smoker MEDENT ([facility]) Smoking 07/16/2019 12:00:00 AM EDT Former Smoker completed Former Smoker eCW1 ([facility]) Smoking 07/16/2019 12:00:00 AM EDT Former Smoker completed Former Smoker eCW1 ([facility]) Smoking 07/16/2019 12:00:00 AM EDT Former Smoker completed Former Smoker eCW1 ([facility]) Smoking 07/16/2019 12:00:00 AM EDT Former Smoker completed Former Smoker eCW1 ([facility]) Smoking 07/16/2019 12:00:00 AM EDT Former Smoker completed Former Smoker eCW1 ([facility]) Smoking 07/16/2019 12:00:00 AM EDT Former Smoker completed Former Smoker eCW1 ([facility]) Smoking 07/16/2019 12:00:00 AM EDT Former Smoker completed Former Smoker eCW1 ([facility]) Smoking 07/16/2019 12:00:00 AM EDT Former Smoker completed Former Smoker eCW1 ([facility]) Smoking 07/16/2019 12:00:00 AM EDT Former Smoker completed Former Smoker eCW1 ([facility]) Smoking 07/16/2019 12:00:00 AM EDT Former Smoker completed Former Smoker eCW1 ([facility]) Vital Signs ID Date Data Source UNK Name Value Range Interpretation Code Description Data Source(s) Body mass index (BMI) [Ratio] 59.0 kg/m2 59.0 k g/m2 MEDENT ([facility]) Body weight 302.00 [lb_av] 302.00 [lb_av] MEDEN T ([facility]) Body height 60 [in_i] 60 [in_i] MEDENT ([facility]) 5'0" Body temperature 96.8 [degF] 96.8 [degF] MEDENT ([facility]) Diastolic blood pressure 70 mm[Hg] 70 mm[Hg] eCW1 ([facility]) Systolic blood pressure 144 mm[Hg] 144 mm[Hg] e CW1 ([facility]) Body temperature 97.9 [degF] 97.9 [degF] eCW1 ( [facility]) Respiratory rate 20 /min 20 /min eCW1 ([facility]) Heart rate 84 /min 84 /min eCW1 ([facility]) Body mass index (BMI) [Ratio] 50.32 kg/m2 50.32 kg/m2 eCW1 ([facility]) Body height 65 [in_i] 65 [in_i] eCW1 ([facility]) Body weight 302.4 [lb_av] 302.4 [lb_av] eCW1 ([facility]) Diastolic blood pressure 64 mm[Hg] 64 mm[Hg] eCW1 ([facility]) Systolic blood pressure 110 mm[Hg] 110 mm[Hg] e CW1 ([facility]) Body temperature 97.0 [degF] 97.0 [degF] eCW1 ( [facility]) Respiratory rate 18 /min 18 /min eCW1 ([facility]) Heart rate 83 /min 83 /min eCW1 ([facility]) Body mass index (BMI) [Ratio] 49.75 kg/m2 49.75 kg/m2 eCW1 ([facility]) Body height 65 [in_i] 65 [in_i] eCW1 ([facility]) Body weight 299 [lb_av] 299 [lb_av] eCW1 ([facility]) Diastolic blood pressure 62 mm[Hg] 62 mm[Hg] eCW1 ([facility]) Systolic blood pressure 112 mm[Hg] 112 mm[Hg] e CW1 ([facility]) Body temperature 98.0 [degF] 98.0 [degF] eCW1 ( [facility]) Respiratory rate 18 /min 18 /min eCW1 ([facility]) Heart rate 93 /min 93 /min eCW1 ([facility]) Body mass index (BMI) [Ratio] 49.09 kg/m2 49.09 kg/m2 eCW1 ([facility]) Body height 65 [in_i] 65 [in_i] eCW1 ([facility]) Body weight 295 [lb_av] 295 [lb_av] eCW1 ([facility]) Diastolic blood pressure 62 mm[Hg] 62 mm[Hg] eCW1 ([facility]) Systolic blood pressure 138 mm[Hg] 138 mm[Hg] e CW1 ([facility]) Body temperature 96.9 [degF] 96.9 [degF] eCW1 ( [facility]) Respiratory rate 20 /min 20 /min eCW1 ([facility]) Heart rate 91 /min 91 /min eCW1 ([facility]) Body mass index (BMI) [Ratio] 49.68 kg/m2 49.68 kg/m2 eCW1 ([facility]) Body height 65 [in_i] 65 [in_i] eCW1 ([facility]) Body weight 298.6 [lb_av] 298.6 [lb_av] eCW1 ([facility]) Diastolic blood pressure 70 mm[Hg] 70 mm[Hg] eCW1 ([facility]) Systolic blood pressure 122 mm[Hg] 122 mm[Hg] e CW1 ([facility]) Body temperature 97.5 [degF] 97.5 [degF] eCW1 ( [facility]) Respiratory rate 18 /min 18 /min eCW1 ([facility]) Heart rate 88 /min 88 /min eCW1 ([facility]) Body mass index (BMI) [Ratio] 48.52 kg/m2 48.52 kg/m2 eCW1 ([facility]) Body height 65 [in_i] 65 [in_i] eCW1 ([facility]) Body weight 291.6 [lb_av] 291.6 [lb_av] eCW1 ([facility]) Diastolic blood pressure 70 mm[Hg] 70 mm[Hg] eCW1 ([facility]) Systolic blood pressure 122 mm[Hg] 122 mm[Hg] e CW1 ([facility]) Body temperature 97.5 [degF] 97.5 [degF] eCW1 ( [facility]) Respiratory rate 18 /min 18 /min eCW1 ([facility]) Heart rate 88 /min 88 /min eCW1 ([facility]) Body mass index (BMI) [Ratio] 48.52 kg/m2 48.52 kg/m2 eCW1 ([facility]) Body height 65 [in_i] 65 [in_i] eCW1 ([facility]) Body weight 291.6 [lb_av] 291.6 [lb_av] eCW1 ([facility]) Brutus body weight 120 [lb_av] 120 [lb_av] MEDEN T ([facility], ) Body height 64 [in_i] 64 [in_i] MEDENT ([facility], ) 5'4" Oxygen saturation in Arterial blood by Pulse oximetry 95 % 95 % [facility] ([facility], ) Room Air Heart rate 73 /min 73 /min [facility] ([facility], ) Diastolic blood pressure 70 mm[Hg] 70 mm[Hg] [facility] ([facility], ) Systolic blood pressure 118 mm[Hg] 118 mm[Hg] DEYA ([facility], ) Body mass index (BMI) [Ratio] 46.5 kg/m2 46.5 k g/m2 MEDENT ([facility]) Body weight 288.00 [lb_av] 288.00 [lb_av] MEDEN T ([facility]) Body height 66 [in_i] 66 [in_i] MEDENT ([facility]) 5'6" Body temperature 97.7 [degF] 97.7 [degF] [facility] ([facility]) Oxygen saturation in Arterial blood by Pulse oximetry 95 % 95 % [facility] Respiratory rate 18 /min 18 /min [facility] Body temperature 36.39 Claudia 36.39 Claudia [facility] Heart rate 73 /min 73 /min [facility] Diastolic blood pressure 70 mm[Hg] 70 mm[Hg] [facility] Systolic blood pressure 149 mm[Hg] 149 mm[Hg] [facility] Body mass index (BMI) [Ratio] 46.33 kg/m2 46.33 kg/m2 [facility] Body weight 130.2 kg 130.2 kg [facility] Body height 167.6 cm 167.6 cm [facility] Diastolic blood pressure--sitting 55 mm[Hg] 55 mm[Hg] MEDENT ([facility]) CBP large cuff, Ra Systolic blood pressure--sitting 115 mm[Hg] 115 mm[Hg] MEDENT ([facility]) CBP large cuff, Ra Heart rate 65 /min 65 /min [facility] ([facility]) Body mass index (BMI) [Ratio] 45.7 kg/m2 45.7 k g/m2 MEDENT ([facility]) Body height 66 [in_i] 66 [in_i] MEDENT ([facility]) 5'6" Body weight 283.00 [lb_av] 283.00 [lb_av] MEDEN T ([facility]) Body surface area Derived from formula 2.26 m2 2.26 m2 [facility] ([facility]) Body weight 127.008 kg 127.008 kg [facility] ([facility]) Brutus body weight 120 [lb_av] 120 [lb_av] MEDEN T ([facility]) Body mass index (BMI) [Ratio] 48.1 kg/m2 48.1 k g/m2 [facility] ([facility]) Body weight 280.00 [lb_av] 280.00 [lb_av] MEDEN T ([facility]) Body height 64 [in_i] 64 [in_i] [facility] 5'4" Diastolic blood pressure 69 mm[Hg] 69 mm[Hg] [facility] ([facility]) Systolic blood pressure 131 mm[Hg] 131 mm[Hg] M EDENT ([facility]) Body temperature 96.8 [degF] 96.8 [degF] [facility] ([facility]) Oxygen saturation in Arterial blood by Pulse oximetry 96 % 96 % [facility] ([facility]) Room Air Heart rate 80 /min 80 /min [facility] ([facility]) Diastolic blood pressure 80 mm[Hg] 80 mm[Hg] [facility] ([facility], ) Systolic blood pressure 126 mm[Hg] 126 mm[Hg] M EDENT ([facility], ) Body weight 127.462 kg 127.462 kg [facility] ([facility]) Body mass index (BMI) [Ratio] 48.2 kg/m2 48.2 k g/m2 [facility] ([facility], ) Body weight 281.00 [lb_av] 281.00 [lb_av] MEDEN T ([facility], ) Body height 64 [in_i] 64 [in_i] [facility] ([facility], ) 5'4" Diastolic blood pressure 60 mm[Hg] 60 mm[Hg] eCW1 ([facility]) Systolic blood pressure 108 mm[Hg] 108 mm[Hg] e CW1 ([facility]) Body temperature 96.9 [degF] 96.9 [degF] eCW1 ( [facility]) Respiratory rate 20 /min 20 /min eCW1 ([facility]) Heart rate 88 /min 88 /min eCW1 ([facility]) Body mass index (BMI) [Ratio] 46.22 kg/m2 46.22 kg/m2 W1 ([facility]) Body height 65 [in_us] 65 [in_us] eCW1 ([facility]) Body weight Measured 277.8 [lb_av] 277.8 [lb_av ] eCW1 ([facility]) Body height 64 [in_i] 64 [in_i] [facility] ([facility], ) 5'4" Oxygen saturation in Arterial blood by Pulse oximetry 95 % 95 % [facility] ([facility], ) Room Air Heart rate 80 /min 80 /min [facility] ([facility], ) Diastolic blood pressure 70 mm[Hg] 70 mm[Hg] [facility] ([facility], ) Systolic blood pressure 118 mm[Hg] 118 mm[Hg] M EDENT ([facility], ) Diastolic blood pressure 56 mm[Hg] 56 mm[Hg] eCW1 ([facility]) Systolic blood pressure 106 mm[Hg] 106 mm[Hg] e CW1 ([facility]) Body temperature 97.6 [degF] 97.6 [degF] eCW1 ( [facility]) Respiratory rate 20 /min 20 /min eCW1 ([facility]) Heart rate 90 /min 90 /min eCW1 ([facility]) Body mass index (BMI) [Ratio] 45.82 kg/m2 45.82 kg/m2 eCW1 ([facility]) Body height 65 [in_us] 65 [in_us] eCW1 ([facility]) Body weight Measured 275.4 [lb_av] 275.4 [lb_av ] eCW1 ([facility]) Body weight 122.472 kg 122.472 kg [facility] ([facility], ) Body mass index (BMI) [Ratio] 46.3 kg/m2 46.3 k g/m2 [facility] Body weight 270.00 [lb_av] 270.00 [lb_av] MEDEN T ([facility], ) Body height 64 [in_i] 64 [in_i] [facility] ([facility], ) 5'4" Diastolic blood pressure 62 mm[Hg] 62 mm[Hg] [facility] ([facility]) Systolic blood pressure 132 mm[Hg] 132 mm[Hg] M EDENT ([facility], ) Body mass index (BMI) [Ratio] 43.1 kg/m2 43.1 k g/m2 [facility] Body weight 267.25 [lb_av] 267.25 [lb_av] MEDEN T ([facility]) Body height 66 [in_i] 66 [in_i] MEDENT ([facility]) 5'6" Body temperature 98.3 [degF] 98.3 [degF] MEDENT ([facility]) Patient Treatment Plan of Care Planned Activity Planned Date Details Description Data Source (s) pregabalin 300 MG Oral Capsule [Lyrica] 03/24/2020 12:00:00 AM EST eCW1 ([facility]) Doxycycline Monohydrate 100 MG Oral Capsule 03/24/2020 12:00:00 AM EST eCW1 ([facility]) pregabalin 300 MG Oral Capsule [Lyrica] 03/24/2020 12:00:00 AM EST eCW1 ([facility]) Doxycycline Monohydrate 100 MG Oral Capsule 03/24/2020 12:00:00 AM EST eCW1 ([facility]) pregabalin 300 MG Oral Capsule [Lyrica] 03/24/2020 12:00:00 AM EST eCW1 ([facility]) Doxycycline Monohydrate 100 MG Oral Capsule 03/24/2020 12:00:00 AM EST eCW1 ([facility]) May Have - 02/27/2020 12:00:00 AM EST e CW1 ([facility]) pregabalin 50 MG Oral Capsule [Lyrica] 02/27/2020 12:00:00 AM EST eCW1 ([facility]) May Have - 02/27/2020 12:00:00 AM EST e CW1 ([facility]) pregabalin 50 MG Oral Capsule [Lyrica] 02/27/2020 12:00:00 AM EST eCW1 ([facility]) May Have - 02/27/2020 12:00:00 AM EST e CW1 ([facility]) pregabalin 50 MG Oral Capsule [Lyrica] 02/27/2020 12:00:00 AM EST eCW1 ([facility]) May Have - 02/27/2020 12:00:00 AM EST e CW1 ([facility]) pregabalin 50 MG Oral Capsule [Lyrica] 02/27/2020 12:00:00 AM EST eCW1 ([facility]) May Have - 02/27/2020 12:00:00 AM EST e CW1 ([facility]) pregabalin 50 MG Oral Capsule [Lyrica] 02/27/2020 12:00:00 AM EST eCW1 ([facility]) pregabalin 50 MG Oral Capsule [Lyrica] 02/27/2020 12:00:00 AM EST eCW1 ([facility]) July Have - 02/27/2020 12:00:00 AM EST e CW1 ([facility]) pregabalin 50 MG Oral Capsule [Lyrica] 02/27/2020 12:00:00 AM EST eCW1 ([facility]) July Have - 02/27/2020 12:00:00 AM EST e CW1 ([facility]) 60 ACTUAT Fluticasone propionate 0.1 MG/ ACTUAT / salmeterol 0.05 MG/ACTUAT Dry Powder Inhaler [Advair] 02/21/2020 12:00:00 AM EST eCW1 ([facility]) Insulin, Aspart, Human 100 UNT/ML Injectable Solution [NovoLog] 02/04/2020 12:00:00 AM EST eCW1 ([facility]) Insulin, Aspart, Human 100 UNT/ML Injectable Solution [NovoLog] 02/04/2020 12:00:00 AM EST eCW1 ([facility]) Insulin, Aspart, Human 100 UNT/ML Injectable Solution [NovoLog] 02/04/2020 12:00:00 AM EST eCW1 ([facility]) Insulin, Aspart, Human 100 UNT/ML Injectable Solution [NovoLog] 02/04/2020 12:00:00 AM EST eCW1 ([facility]) pregabalin 200 MG Oral Capsule [Lyrica] 12/20/2019 12:00:00 AM EDT eCW1 ([facility]) pregabalin 200 MG Oral Capsule [Lyrica] 12/20/2019 12:00:00 AM EDT eCW1 ([facility]) pregabalin 200 MG Oral Capsule [Lyrica] 12/20/2019 12:00:00 AM EDT eCW1 ([facility]) pregabalin 200 MG Oral Capsule [Lyrica] 12/20/2019 12:00:00 AM EDT eCW1 ([facility]) pregabalin 200 MG Oral Capsule [Lyrica] 12/20/2019 12:00:00 AM EDT eCW1 ([facility]) pregabalin 200 MG Oral Capsule [Lyrica] 12/20/2019 12:00:00 AM EDT eCW1 ([facility]) pregabalin 200 MG Oral Capsule [Lyrica] 12/20/2019 12:00:00 AM EDT eCW1 ([facility]) pregabalin 200 MG Oral Capsule [Lyrica] 12/20/2019 12:00:00 AM EDT eCW1 ([facility]) pregabalin 200 MG Oral Capsule [Lyrica] 12/20/2019 12:00:00 AM EDT eCW1 ([facility]) pregabalin 200 MG Oral Capsule [Lyrica] 12/20/2019 12:00:00 AM EDT eCW1 ([facility]) pregabalin 200 MG Oral Capsule [Lyrica] 12/20/2019 12:00:00 AM EDT eCW1 ([facility]) pregabalin 200 MG Oral Capsule [Lyrica] 12/20/2019 12:00:00 AM EDT eCW1 ([facility]) pregabalin 200 MG Oral Capsule [Lyrica] 12/20/2019 12:00:00 AM EDT eCW1 ([facility]) pregabalin 200 MG Oral Capsule [Lyrica] 12/20/2019 12:00:00 AM EDT eCW1 ([facility]) pregabalin 200 MG Oral Capsule [Lyrica] 12/20/2019 12:00:00 AM EDT eCW1 ([facility]) pregabalin 200 MG Oral Capsule [Lyrica] 12/20/2019 12:00:00 AM EDT eCW1 ([facility]) pregabalin 200 MG Oral Capsule [Lyrica] 12/20/2019 12:00:00 AM EDT eCW1 ([facility]) Acetaminophen 325 MG / Hydrocodone Bitartrate 5 MG Ora l Tablet 12/17/2019 12:00:00 AM EDT eCW1 ([facility]) Acetaminophen 325 MG / Hydrocodone Bitartrate 5 MG Ora l Tablet 12/17/2019 12:00:00 AM EDT eCW1 ([facility]) Acetaminophen 325 MG / Hydrocodone Bitartrate 5 MG Ora l Tablet 12/17/2019 12:00:00 AM EDT eCW1 ([facility]) Acetaminophen 325 MG / Hydrocodone Bitartrate 5 MG Ora l Tablet 12/17/2019 12:00:00 AM EDT eCW1 ([facility]) Acetaminophen 325 MG / Hydrocodone Bitartrate 5 MG Ora l Tablet 12/17/2019 12:00:00 AM EDT eCW1 ([facility]) Acetaminophen 325 MG / Hydrocodone Bitartrate 5 MG Ora l Tablet 12/17/2019 12:00:00 AM EDT eCW1 ([facility]) 3 ML Insulin, Aspart, Human 100 UNT/ML Pen Injector [N ovoLog] 09/11/2019 12:00:00 AM EDT eCW1 ([facility]) 3 ML Insulin, Aspart, Human 100 UNT/ML Pen Injector [N ovoLog] 09/11/2019 12:00:00 AM EDT eCW1 ([facility]) 3 ML Insulin, Aspart, Human 100 UNT/ML Pen Injector [N ovoLog] 09/11/2019 12:00:00 AM EDT eCW1 ([facility]) 3 ML Insulin, Aspart, Human 100 UNT/ML Pen Injector [N ovoLog] 09/11/2019 12:00:00 AM EDT eCW1 ([facility]) 3 ML Insulin, Aspart, Human 100 UNT/ML Pen Injector [N ovoLog] 09/11/2019 12:00:00 AM EDT eCW1 ([facility]) 3 ML Insulin, Aspart, Human 100 UNT/ML Pen Injector [N ovoLog] 09/11/2019 12:00:00 AM EDT eCW1 ([facility]) 3 ML Insulin, Aspart, Human 100 UNT/ML Pen Injector [N ovoLog] 09/11/2019 12:00:00 AM EDT eCW1 ([facility]) 3 ML Insulin, Aspart, Human 100 UNT/ML Pen Injector [N ovoLog] 09/11/2019 12:00:00 AM EDT eCW1 ([facility]) Cymbalta 60 MG 09/09/2019 12:00:00 AM EDT eCW1 ([facility]) Cymbalta 60 MG 09/09/2019 12:00:00 AM EDT eCW1 ([facility]) Cymbalta 60 MG 09/09/2019 12:00:00 AM EDT eCW1 ([facility]) Cymbalta 60 MG 09/09/2019 12:00:00 AM EDT eCW1 ([facility]) Cymbalta 60 MG 09/09/2019 12:00:00 AM EDT eCW1 ([facility]) Cymbalta 60 MG 09/09/2019 12:00:00 AM EDT eCW1 ([facility]) Cymbalta 60 MG 09/09/2019 12:00:00 AM EDT eCW1 ([facility]) Cymbalta 60 MG 09/09/2019 12:00:00 AM EDT eCW1 ([facility]) 24 HR Isosorbide Mononitrate 30 MG Extended Release Or al Tablet 08/23/2019 12:00:00 AM EDT [facility] 08/09/2019 12:00:00 AM EDT eCW1 ([facility]) [facility] - 08/09/2019 12:00:00 AM EDT eCW1 ([facility]) [facility] - 08/09/2019 12:00:00 AM EDT eCW1 ([facility]) [facility] - 08/09/2019 12:00:00 AM EDT eCW1 ([facility]) [facility] - 08/09/2019 12:00:00 AM EDT eCW1 ([facility]) [facility] - 08/09/2019 12:00:00 AM EDT eCW1 ([facility]) [facility] - 08/09/2019 12:00:00 AM EDT [facility]CW1 [facility] 12:00:00 AM [facility] 12:00:00 AM EDT [facility]CW[facility] 12:00:00 AM EDT [facility]CW[facility] 12:00:00 AM EDT eCW1 ([facility]) BD AutoShield Duo 30G X 5 MM 08/07/2019 12:00:00 AM EDT eCW1 ([facility]) BD AutoShield Duo 30G X 5 MM 08/07/2019 12:00:00 AM EDT eCW1 ([facility]) BD AutoShield Duo 30G X 5 MM 08/07/2019 12:00:00 AM EDT eCW1 ([facility]) BD AutoShield Duo 30G X 5 MM 08/07/2019 12:00:00 AM EDT eCW1 ([facility]) valsartan 80 MG Oral Tablet 08/07/2019 12:00:00 AM EDT eCW1 ([facility]) 200 ACTUAT Albuterol 0.09 MG/ACTUAT Metered Dose Inhal er [ProAir] 08/07/2019 12:00:00 AM EDT eCW1 ([facility]) BD AutoShield Duo 30G X 5 MM 08/07/2019 12:00:00 AM EDT eCW1 ([facility]) valsartan 80 MG Oral Tablet 08/07/2019 12:00:00 AM EDT eCW1 ([facility]) 200 ACTUAT Albuterol 0.09 MG/ACTUAT Metered Dose Inhal er [ProAir] 08/07/2019 12:00:00 AM EDT eCW1 ([facility]) BD AutoShield Duo 30G X 5 MM 08/07/2019 12:00:00 AM EDT eCW1 ([facility]) valsartan 80 MG Oral Tablet 08/07/2019 12:00:00 AM EDT eCW1 ([facility]) 200 ACTUAT Albuterol 0.09 MG/ACTUAT Metered Dose Inhal er [ProAir] 08/07/2019 12:00:00 AM EDT eCW1 ([facility]) BD AutoShield Duo 30G X 5 MM 08/07/2019 12:00:00 AM EDT eCW1 ([facility]) 200 ACTUAT Albuterol 0.09 MG/ACTUAT Metered Dose Inhal er [ProAir] 08/07/2019 12:00:00 AM EDT eCW1 ([facility]) BD AutoShield Duo 30G X 5 MM 08/07/2019 12:00:00 AM EDT eCW1 ([facility]) valsartan 80 MG Oral Tablet 08/07/2019 12:00:00 AM EDT eCW1 ([facility]) 200 ACTUAT Albuterol 0.09 MG/ACTUAT Metered Dose Inhal er [ProAir] 08/07/2019 12:00:00 AM EDT eCW1 ([facility]) BD AutoShield Duo 30G X 5 MM 08/07/2019 12:00:00 AM EDT eCW1 ([facility]) valsartan 80 MG Oral Tablet 08/07/2019 12:00:00 AM EDT eCW1 ([facility]) 200 ACTUAT Albuterol 0.09 MG/ACTUAT Metered Dose Inhal er [ProAir] 08/07/2019 12:00:00 AM EDT eCW1 ([facility]) 200 ACTUAT Albuterol 0.09 MG/ACTUAT Metered Dose Inhal er [ProAir] 08/07/2019 12:00:00 AM EDT eCW1 ([facility]) valsartan 80 MG Oral Tablet 08/07/2019 12:00:00 AM EDT eCW1 ([facility]) 200 ACTUAT Albuterol 0.09 MG/ACTUAT Metered Dose Inhal er [ProAir] 08/07/2019 12:00:00 AM EDT eCW1 ([facility]) BD AutoShield Duo 30G X 5 MM 08/07/2019 12:00:00 AM EDT eCW1 ([facility]) valsartan 80 MG Oral Tablet 08/07/2019 12:00:00 AM EDT eCW1 ([facility]) valsartan 80 MG Oral Tablet 08/07/2019 12:00:00 AM EDT eCW1 ([facility]) 200 ACTUAT Albuterol 0.09 MG/ACTUAT Metered Dose Inhal er [ProAir] 08/07/2019 12:00:00 AM EDT eCW1 ([facility]) BD AutoShield Duo 30G X 5 MM 08/07/2019 12:00:00 AM EDT eCW1 ([facility]) 200 ACTUAT Albuterol 0.09 MG/ACTUAT Metered Dose Inhal er [ProAir] 08/07/2019 12:00:00 AM EDT eCW1 ([facility]) valsartan 80 MG Oral Tablet 08/07/2019 12:00:00 AM EDT eCW1 ([facility]) BD AutoShield Duo 30G X 5 MM 08/07/2019 12:00:00 AM EDT eCW1 ([facility]) 200 ACTUAT Albuterol 0.09 MG/ACTUAT Metered Dose Inhal er [ProAir] 08/07/2019 12:00:00 AM EDT eCW1 ([facility]) valsartan 80 MG Oral Tablet 08/07/2019 12:00:00 AM EDT eCW1 ([facility]) BD AutoShield Duo 30G X 5 MM 08/07/2019 12:00:00 AM EDT eCW1 ([facility]) valsartan 80 MG Oral Tablet 08/07/2019 12:00:00 AM EDT eCW1 ([facility]) [facility] - 07/30/2019 12:00:00 AM EDT e CW1 ([facility]) [facility] - 07/30/2019 12:00:00 AM EDT e CW1 ([facility]) [facility] - 07/30/2019 12:00:00 AM EDT e CW1 ([facility]) [place] - 07/30/2019 12:00:00 AM EDT e CW1 ([facility]) [place] - 07/30/2019 12:00:00 AM EDT e CW1 ([facility]) [facility] - 07/30/2019 12:00:00 AM EDT e CW1 ([facility]) [place] - 07/30/2019 12:00:00 AM EDT e CW1 ([facility]) [place] - 07/30/2019 12:00:00 AM EDT e CW1 ([facility]) [place] - 07/30/2019 12:00:00 AM EDT e CW1 ([facility]) [place] - 07/30/2019 12:00:00 AM EDT e CW1 ([facility]) [place] - 07/30/2019 12:00:00 AM EDT e CW1 ([facility]) [place] - 07/18/2019 12:00:00 AM EDT e CW1 ([facility]) [facility] Have - 07/16/2019 12:00:00 AM EDT e CW1 ([facility]) [facility] Have - 07/16/2019 12:00:00 AM EDT e CW1 ([facility]) May Have - 07/16/2019 12:00:00 AM EDT e CW1 ([facility]) [facility] Have - 07/16/2019 12:00:00 AM EDT e CW1 ([facility]) [facility] - 07/16/2019 12:00:00 AM EDT e CW1 ([facility]) pregabalin 150 MG Oral Capsule [Lyrica] 07/16/2019 12:00:00 AM EDT eCW1 ([facility]) [facility] Have - 07/16/2019 12:00:00 AM EDT e CW1 ([facility]) [facility] Have - 07/16/2019 12:00:00 AM EDT e CW1 ([facility]) May Have - 07/16/2019 12:00:00 AM EDT e CW1 ([facility]) pregabalin 150 MG Oral Capsule [Lyrica] 07/16/2019 12:00:00 AM EDT eCW1 ([facility]) May Have - 07/16/2019 12:00:00 AM EDT e CW1 ([facility]) May Have - 07/16/2019 12:00:00 AM EDT e CW1 ([facility]) pregabalin 150 MG Oral Capsule [Lyrica] 07/16/2019 12:00:00 AM EDT eCW1 ([facility]) May Have - 07/16/2019 12:00:00 AM EDT e CW1 ([facility]) pregabalin 150 MG Oral Capsule [Lyrica] 07/16/2019 12:00:00 AM EDT eCW1 ([facility]) pregabalin 150 MG Oral Capsule [Lyrica] 07/16/2019 12:00:00 AM EDT eCW1 ([facility]) pregabalin 150 MG Oral Capsule [Lyrica] 07/16/2019 12:00:00 AM EDT eCW1 ([facility]) 8 HR Acetaminophen 650 MG Extended Release Oral Tablet [Tylenol] 07/04/2019 12:00:00 AM EDT eCW1 ([facility]) 8 HR Acetaminophen 650 MG Extended Release Oral Tablet [Tylenol] 07/04/2019 12:00:00 AM EDT eCW1 ([facility]) 8 HR Acetaminophen 650 MG Extended Release Oral Tablet [Tylenol] 07/04/2019 12:00:00 AM EDT eCW1 ([facility]) 8 HR Acetaminophen 650 MG Extended Release Oral Tablet [Tylenol] 07/04/2019 12:00:00 AM EDT eCW1 ([facility]) 8 HR Acetaminophen 650 MG Extended Release Oral Tablet [Tylenol] 07/04/2019 12:00:00 AM EDT eCW1 ([facility]) 8 HR Acetaminophen 650 MG Extended Release Oral Tablet [Tylenol] 07/04/2019 12:00:00 AM EDT eCW1 ([facility]) 8 HR Acetaminophen 650 MG Extended Release Oral Tablet [Tylenol] 07/04/2019 12:00:00 AM EDT eCW1 ([facility]) 8 HR Acetaminophen 650 MG Extended Release Oral Tablet [Tylenol] 07/04/2019 12:00:00 AM EDT eCW1 ([facility]) 8 HR Acetaminophen 650 MG Extended Release Oral Tablet [Tylenol] 07/04/2019 12:00:00 AM EDT eCW1 ([facility]) 8 HR Acetaminophen 650 MG Extended Release Oral Tablet [Tylenol] 07/04/2019 12:00:00 AM EDT eCW1 ([facility]) 8 HR Acetaminophen 650 MG Extended Release Oral Tablet [Tylenol] 07/04/2019 12:00:00 AM EDT eCW1 ([facility]) 8 HR Acetaminophen 650 MG Extended Release Oral Tablet [Tylenol] 07/04/2019 12:00:00 AM EDT eCW1 ([facility]) 8 HR Acetaminophen 650 MG Extended Release Oral Tablet [Tylenol] 07/04/2019 12:00:00 AM EDT eCW1 ([facility]) 8 HR Acetaminophen 650 MG Extended Release Oral Tablet [Tylenol] 07/04/2019 12:00:00 AM EDT eCW1 ([facility]) 8 HR Acetaminophen 650 MG Extended Release Oral Tablet [Tylenol] 07/04/2019 12:00:00 AM EDT eCW1 ([facility]) 8 HR Acetaminophen 650 MG Extended Release Oral Tablet [Tylenol] 07/04/2019 12:00:00 AM EDT eCW1 ([facility]) 8 HR Acetaminophen 650 MG Extended Release Oral Tablet [Tylenol] 07/04/2019 12:00:00 AM EDT eCW1 ([facility]) 8 HR Acetaminophen 650 MG Extended Release Oral Tablet [Tylenol] 07/04/2019 12:00:00 AM EDT eCW1 ([facility]) 8 HR Acetaminophen 650 MG Extended Release Oral Tablet [Tylenol] 07/04/2019 12:00:00 AM EDT eCW1 ([facility]) 8 HR Acetaminophen 650 MG Extended Release Oral Tablet [Tylenol] 07/04/2019 12:00:00 AM EDT eCW1 ([facility]) 8 HR Acetaminophen 650 MG Extended Release Oral Tablet [Tylenol] 07/04/2019 12:00:00 AM EDT eCW1 ([facility]) 8 HR Acetaminophen 650 MG Extended Release Oral Tablet [Tylenol] 07/04/2019 12:00:00 AM EDT eCW1 ([facility]) 8 HR Acetaminophen 650 MG Extended Release Oral Tablet [Tylenol] 07/04/2019 12:00:00 AM EDT eCW1 ([facility]) 8 HR Acetaminophen 650 MG Extended Release Oral Tablet [Tylenol] 07/04/2019 12:00:00 AM EDT eCW1 ([facility]) 8 HR Acetaminophen 650 MG Extended Release Oral Tablet [Tylenol] 07/04/2019 12:00:00 AM EDT eCW1 ([facility]) 8 HR Acetaminophen 650 MG Extended Release Oral Tablet [Tylenol] 07/04/2019 12:00:00 AM EDT eCW1 ([facility]) 8 HR Acetaminophen 650 MG Extended Release Oral Tablet [Tylenol] 07/04/2019 12:00:00 AM EDT eCW1 ([facility]) 8 HR Acetaminophen 650 MG Extended Release Oral Tablet [Tylenol] 07/04/2019 12:00:00 AM EDT eCW1 ([facility]) 8 HR Acetaminophen 650 MG Extended Release Oral Tablet [Tylenol] 07/04/2019 12:00:00 AM EDT eCW1 ([facility]) 8 HR Acetaminophen 650 MG Extended Release Oral Tablet [Tylenol] 07/04/2019 12:00:00 AM EDT eCW1 ([facility]) 8 HR Acetaminophen 650 MG Extended Release Oral Tablet [Tylenol] 07/04/2019 12:00:00 AM EDT eCW1 ([facility]) May Have - 06/11/2019 12:00:00 AM EDT e CW1 ([facility]) Metoprolol Tartrate 50 MG Oral Tablet 08/22/2016 12:00:00 AM EDT [facility] 60 ACTUAT Fluticasone propionate 0.5 MG/ ACTUAT / salmeterol 0.05 MG/ACTUAT Dry Powder Inhaler [Advair] 08/22/2016 12:00:00 AM EDT [facility] Simvastatin 40 MG Oral Tablet 08/22/2016 12:00:00 AM EDT [facility] insulin human, isophane 70 UNT/ML / Regu lar Insulin, Human 30 UNT/ML Injectable Suspension 06/14/2016 12:00:00 AM EDT [facility] Lidocaine 0.05 MG/MG Topical Ointment 05/27/2016 12:00:00 AM EDT [facility] terbinafine 250 MG Oral Tablet 05/26/2016 12:00:00 AM EDT [facility] Trazodone Hydrochloride 50 MG Oral Tablet 03/21/2016 12:00:00 AM ES T [facility] Metformin hydrochloride 1000 MG Oral Tablet 02/12/2016 12:00:00 AM EST [facility] Lisinopril 40 MG Oral Tablet 02/12/2016 12:00:00 AM EST [facility] INSULIN SYRINGE .5CC/28G 28G X 1/2" 0.5 ML MISC 12/17/2015 12:00:00 AM EDT [facility] Ergocalciferol 06631 UNT Oral Capsule 11/18/2015 12:00:00 AM EDT [facility] 24 HR Isosorbide Mononitrate 30 MG Extended Release Oral Tablet [facility] clopidogrel 75 MG Oral Tablet [facility]
[2020-04-22] MEDS ORDERED: ISOVUE-370 76% 100ML VIAL As Ordered ONE (13:19)
--- NOTE | 2020-04-22 14:02 | REP ---
INDICATION: chest pain. COMPARISON: Comparison study 12 April 2020.. TECHNIQUE: Contrast dose: 75 ML of Isovue [address] technique: Helical scanning is acquired and overlapping 1.5 mm and contiguous 3 mm axial images are reformatted. In addition, maximum intensity projection and multiplanar re-formation images are generated in sagittal and coronal imaging projections. FINDINGS: There is good opacification in the pulmonary arterial tree. There is no evidence of vessel cut off or filling defect to suggest pulmonary embolus. Homogeneous opacity is seen in the thoracic aorta. There is no evidence of aneurysm or dissection. Lung window settings demonstrate no evidence of infiltrate, mass, or pleural effusion. No pericardial effusion is seen. No hilar or mediastinal mass or adenopathy is observed. 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 No acute bony abnormality is seen. In the upper abdomen, there is moderate to marked diffuse fatty infiltration of the liver again noted. No adrenal lesion is seen. Vascular calcification is observed. IMPRESSION: No CT evidence of pulmonary embolus. Moderate diffuse fatty infiltration of the liver again noted. Otherwise no acute disease. <Electronically signed by Jassi Moran > 04/22/20 [id number]
[2020-04-22] MEDS ORDERED: KETOROLAC 30 MG/ML 1ML VIAL IV ONE (15:00)
[2020-04-22] MEDS ORDERED: predniSONE 20 MG TAB PO ONE (17:00)
[2020-04-22] MEDS ORDERED: PRED20TA PO (17:39)
[2020-04-22 19:15] VITALS: BP 149/66
--- NOTE | 2020-04-22 19:41 | ECGEPIP ---
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
--- NOTE | 2020-04-22 20:01 | ECGEPIP ---
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
== END 2020-04-22 20:55 | disposition home or self-care (01) ==
LOC: EDBD 10:41 → M ED 10:41
DX: R07.89 Other chest pain (principal); R06.02 Shortness of breath; E11.9 Type 2 diabetes mellitus without complications; I10 Essential (primary) hypertension; Z79.899 Other long term (current) drug therapy; Z79.4 Long term (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; Z79.01 Long term (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 anticoagulants; Z88.0 Allergy status to penicillin; Z88.5 Allergy status to narcotic agent; Z88.8 Allergy status to other drugs, medicaments and biological substances; Z91.040 Latex allergy status; Z91.048 Other nonmedicinal substance allergy status
CPT/HCPCS: 36415; 71045; 71275; 80048; 80076; 83690; 83880; 84484; 85025; 93005; 96374; 99285; J1885; Q9967

== ENCOUNTER → 2020-04-27 | Outpatient (REF) | payer MEDICARE, MEDICAID ==
[~2020-04-27] MED LIST changes: +PRED20TA PO; +PREG300C PO
== END ==
PROVIDERS: ATTEND Internal Medicine
DX: Z20.822 Contact with and (suspected) exposure to COVID-19 (principal)

== ENCOUNTER 2020-05-05 16:04 | Emergency (ER) | payer MEDICARE, MEDICAID ==
[~2020-05-05] VITALS: Ht 172.7 cm; Wt 140.4 kg
--- NOTE | 2020-05-05 16:41 | REP ---
INDICATION: head injury on eliquis. COMPARISON: September 28, 2019.. TECHNIQUE: Helical scanning is acquired. 5 mm axial images were reformatted. Coronal MPR images were generated. FINDINGS: Bone window settings demonstrate an intact bony calvarium. There is no evidence of skull fracture or incidental bony calvarial lesion. The visualized paranasal sinuses appear clear. No intraorbital abnormality is seen. On soft tissue window setting images; the lateral, third, and fourth ventricles are normal in size and position. Mota-white differentiation pattern is normal above and below the tentorium. There are is no evidence of intracranial hemorrhage. No mass, edema, infarction, or midline shift is seen. No extra-axial fluid collection is appreciated. There is generalized volume loss. Vascular calcification is again noted in the skull base. Mild small vessel changes are present in the periventricular white matter. Findings are unchanged when compared with the prior CT study. IMPRESSION: Generalized volume loss and small vessel changes. Mild vascular calcification. No acute intracranial abnormality. No skull fracture or intracranial injury seen.. <Electronically signed by Jassi Moran > 05/05/20 [id number]
[2020-05-05] MEDS ORDERED: AMMO12CR7 TOP (16:42)
[2020-05-05] MEDS ORDERED: NORCO, ANEXSIA 5/325MG TABLET (HYDROcodone/ACETAMINOPHEN) PO ONE ×2 (17:00→18:00)
--- NOTE | 2020-05-05 17:17 | REP ---
INDICATION: right hip/pelvic pain; s/p fall. COMPARISON: Comparison radiographs are from September 28, 2019.. TECHNIQUE: AP view of the pelvis and AP and frogleg views of the right hip are obtained. FINDINGS: Bony pelvic ring is intact. No pelvic or sacral fracture is appreciated. No hip fracture is seen. Femoral heads are smooth and rounded hip joint spaces are preserved. There is tendon insertion site spurring in the greater trochanters and iliac crests bilaterally consistent with mild enthesopathy. A laminectomy is been performed at L4. IMPRESSION: No acute bony abnormality. Mild osteoarthritis at the hips. Tendon insertion site spurring. No fracture seen <Electronically signed by Jassi Moran > 05/05/20 [id number]
--- OUTSIDE RECORDS SUMMARY | 2020-05-05 18:08 | CCD ---
Author Author [facility] Organization [facility] Address Unknown Phone Unavailable Care Team Providers Care Rn House Supervisor Name Role Phone Hilda Castanon Unavailable PROBLEMS Type Condition ICD9-CM Code [id number] Code Onset Dates Condition S tatus W/U Status Risk SNOMED Code Notes Problem Rheumatoid factor positive R76.8 Active confirmed 203101432 Problem Trigger finger of both hands M65.30 Active con firmed [id number] Problem Arthralgia, unspecified joint M25.50 Active confirm ed 00283969 Problem Hyperplastic colonic polyp, unspecified part of colon K63.5 Active confirmed 061715459 Problem Current mild episode of kirby r depressive disorder, unspecified whether recurrent F32.0 Active confirmed 74982857 Problem Vitamin D deficiency E55.9 Active confirmed 12338440 Problem Cervical cancer screening Z12.4 Active confirmed 927371029 Problem Primary osteoarthritis of both knees M17.0 Act chris confirmed 280492384 Problem Diabetic polyneuropathy associated with type 2 d iabetes mellitus E11.42 Active confirmed 335683262 Problem Pre-syncope R55 Active confirmed 47555374 0 Problem Constipation, unspecified constipation type K59.00 Active confirmed 91050025 Problem DDD (degenerative disc disease), lumbar M51.36 Active confirmed 22729798 Problem Gastroesophageal reflux disease, esophagitis pre sence not specified K21.9 Active confirmed 632285935 Problem Breast cancer screening Z12.39 Active confirmed 470532478 Problem Essential hypertension I10 Active confirmed 14644200 Problem Personal history of pulmonary embolism Z86.711 A ctive confirmed 558721628 Problem [facility]PC (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 Z79.4 Activ e confirmed 690750082 Problem Chronic kidney disease, stage 3 (moderate) N18.3 Active confirmed 656601021 Problem Chronic obstructive pulmonary disease, unspecified COPD ty pe J44.9 Active confirmed 31086837 Problem Seasonal allergic rhinitis due to pollen J30.1 Active confirmed 32472870 Problem Hiatal hernia K44.9 Active confirmed 446191 09 Problem Adenomatous polyp of ascending colon D12.2 Act chris confirmed 848499166 Problem H/O deep venous thrombosis Z86.718 Active confirmed 636911239 Problem Mixed hyperlipidemia E78.2 Active confirmed 418027474 Problem Type 2 diabetes mellitus with diabetic chronic kidney disease E11.22 Active confirmed 91465148 Problem History of pulmonary embolus (PE) Z86.711 Active confirmed 595576725 Problem Fatty liver K76.0 Active confirmed 60560515 7 ALLERGIES Allergen (clinical drug ingredient) Drug/Non Drug Allergy do cumented on EMR Reaction Allergy Type Onset Date Status Metoprolol & Diet Manage Prod Unknown Drug Allergy Active rubber Unknown Non Drug Allergy Active Motrin constipation Drug Allergy Active Quinolone Unknown Non Drug Allergy Active Latex Unknown Non Drug Allergy Active adhesive tape Unknown Non Drug Allergy Activ e ENCOUNTERS from 1950 to 2020-04-22 Encounter Location Date Provider Diagnosis [address] [address] 10 Apr[facility]UN[facility] No Information SOCIAL HISTORY Tobacco Use: Social History Observation Description Date Details (start date - stop date) Former Smoker Sex Assigned At : Social History Observation Description Sex Assigned At Unknown Audit Question Answer Notes Total Score: 0 Interpretation: Alcohol Education Language: Question Answer Notes Languages spoken: Welsh Scientology: Question Answer Notes Scientology No scientologist beliefs that would impact health care. Sexual [...] Notes Start Da te End Date Status Eliquis 5 MG 1 tab Orally bid Active Fluticasone Propionate 50 MCG/ACT 2 spray in each nost ril Nasally Once a day for 30 days Active Potassium Chloride Padmini ER 20 MEQ 1 tablet with food Orally Once a da y Active Acetaminophen 325 MG 1 tablet as needed Orally every 4 hrs Active Norvasc 5mg 1 tab orally Daily Activ e Tylenol 8 Hour Arthritis Pain 650 MG 1 tab Orally bid 2019 Active Losartan Potassium 50 MG 1 tablet Orally Once a day Active May Have - wedge pillow nightly before bedtime for 999 days Feb, Active Lyrica 300 MG 1 capsule Orally bid for 30 Days Active Chlorthalidone 25 MG 1 tab Orally Once a day Active Victoza 18 MG/3ML 1.2 units Subcutaneous Daily Active Advair Diskus 100-50 MCG/DOSE 1 puff Inhalation Twice a day for 30 Days Feb, Active Omeprazole 40 MG 1 capsule Orally Once a day Active Multivitamin & Mineral _ 1 tab orally Daily for 30 Days Active Acetaminophen 8 Hour Acti ve Vascepa 1 GM 2 capsules with meals Orally Twice a day for 30 day(s) Active Voltaren 1 % as directed Externally Active Vitamin D3 77150 UNIT 1 capsule Orally Active BD AutoShield Duo 30G X 5 MM DX E11.22 In vitro bid for 30 Days July, Active Advair Diskus 100-50 MCG/DOSE as directed Inhalation Active Milk of Magnesia 400 MG/5ML 5 ml at least 4 hours betw een doses as needed Orally Four times a day Active ProAir HFA 108 (90 Base) MCG/ACT 2 puff as needed Inha lation every 4 hrs: keep at bedside for 30 Days July, Active May Have - rolator _ Daily for 999 days Active Lantus SoloStar 100 UNIT/ML 74u at Qam, 40u at HS Subc utaneous bid: MDD 114U for 30 days Active NovoLog 100 UNIT/ML as directed; MDD 116units Campuzano bcutaneous SScale for 8am, 12noon; Diff. SScale for HS for 30 Days Jan, Active July Have - compression stocking 15mmhg circ. at calf 43cm, size 12 shoe women's entire sock included topically Daily while out of bed for 999 days July, Active Albuterol Sulfate (2.5 MG/3ML) 0.083% 3 ml as needed I nhalation every 8 hrs for 30 Days Active Walker - 4 wheeled walker with seat DX M51.36 for 999 days July, Active Cymbalta 60 MG 1 cap po twice daily for 30 Days Aug, 20 Active Cerovite Senior - 1 tab Orally Daily for 30 Days 08 August, 2 020 Active PROCEDURES No Information RESULTS No Results REASON FOR VISIT sent out via EMS MEDICAL (GENERAL) HISTORY Type Description Date Medical [...] Medication Name Sig Start Date Stop Date Eliquis 5 MG 1 tab Orally bid Omeprazole 40 MG 1 capsule Orally Once a day Norvasc 5mg 1 tab orally Daily Losartan Potassium 50 MG 1 tablet Orally Once a day Advair Diskus 100-50 MCG/DOSE as directed Inhalation Chlorthalidone 25 MG 1 tab Orally Once a day Next Appt Details Provider Name:Gerard Alas, 2020-05-26 0 1:15:00 PM, [address] [place], [address], Provider Name:Hilda aHrris Kina, 10-07 09:30:00 AM, [address] [place], [address], Insurance Providers Payer Name Payer Address Payer Phone Insured Name Patient Relati onship to Insured Coverage Start Date Coverage End Date MEDICAID [employer] [address] [facility] [id number] [place] self MEDICARE Part A and B [address] [facility] [id number] [phone] [place] self
--- OUTSIDE RECORDS SUMMARY | 2020-05-05 18:08 | CCD | Continuity of Care Document ---
Author Author Angelita JIMENEZ DPM Organization Unknown Address [address] [place] [address], [facility] [address] [place] [address] Phone [phone] Care Team Providers Care Collaborating Supervising Physician Name Role Phone BEV CastanonM [phone] Problems Active Problems Provider Date Bunion Drew [...] SIG Qnty Indications Ordering Provide r Date Ammonium Lactate 12% Cream apply to feet daily 140gm Drew Jimenez DPM 04/23/2020 Ra Vitamin B-12 TR 1000mcg Tablets ER take 1 tablet by mouth once daily Unknown Amitriptyline HCL 10mg Tablets Unknown Victoza 18mg/3ML Solution Pen-Inject Unknown Advair Diskus 100-50mcg/Dose Aerosol Unknown Suprep Bowel Prep Kit 17.5-3.13-1.6GM/180ML Solution take as directed by prescriber Unknown Lisinopril 40mg Tablets Unknown Trazodone HCL 50mg Tablets Unknown Onetouch Delica Lancets Extra Fine 33G Misc Unknown Vitamin D (Ergocalciferol) 11442Yxud Capsules Take Two Capsules By Mouth Every [...] Available Procedures Date Code Description Status 02/13/2020 04282 Debridement 6-10 Nails Electric Completed 12/05/2019 10759 Debridement 6-10 Nails Electric Completed Medical Devices Description No Information Available Encounters Description No Information Available Assessments Date Code Description Provider 02/13/2020 B35.1 Tinea unguium Drew Jimenez DPM 02/13/2020 E11.42 Type 2 diabetes mellitus with di abetic polyneuropathy Drew Jimenez DPM 12/05/2019 B35.1 Tinea unguium Drew Jimenez DPM 12/05/2019 E11.42 Type 2 diabetes mellitus with di abetic polyneuropathy Drew Jimenez DPM Plan of Treatment Future Appointment(s):* 07/02/2020 10:30 am - Drew Jimenez DPM at [facility] [place] Status Description No Information Available Mental Status Description No Information Available Referrals Description No Information Available
--- OUTSIDE RECORDS SUMMARY | 2020-05-05 18:08 | CCD ---
Author Author [facility] Organization [facility] Address Unknown Phone Unavailable Care Team Providers Care Cake Inspector Name Role Phone Hilad Castanon Unavailable PROBLEMS Type Condition ICD9-CM Code QNI78-JH Code Onset Dates Condition S tatus W/U Status Risk SNOMED Code Notes Problem Rheumatoid factor positive R76.8 Active confirmed 912736143 Problem Trigger finger of both hands M65.30 Active con firmed [id number] Problem Arthralgia, unspecified joint M25.50 Active confirm ed 21491797 Problem Hyperplastic colonic polyp, unspecified part of colon K63.5 Active confirmed 813890084 Problem Current mild episode of kirby r depressive disorder, unspecified whether recurrent F32.0 Active confirmed 82382982 Problem Vitamin D deficiency E55.9 Active confirmed 45901603 Problem Cervical cancer screening Z12.4 Active confirmed 250767830 Problem Primary osteoarthritis of both knees M17.0 Act chris confirmed 845394546 Problem Diabetic polyneuropathy associated with type 2 d iabetes mellitus E11.42 Active confirmed 201502373 Problem Pre-syncope R55 Active confirmed 09236036 0 Problem Constipation, unspecified constipation type K59.00 Active confirmed 27523011 Problem DDD (degenerative disc disease), lumbar M51.36 Active confirmed 41556053 Problem Gastroesophageal reflux disease, esophagitis pre sence not specified K21.9 Active confirmed 261311559 Problem Breast cancer screening Z12.39 Active confirmed 140214563 Problem Essential hypertension I10 Active confirmed 34923789 Problem Personal history of pulmonary embolism Z86.711 A ctive confirmed 685957388 Problem nursing home (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 Z79.4 Activ e confirmed 582823569 Problem Chronic kidney disease, stage 3 (moderate) N18.3 Active confirmed 843595783 Problem Chronic obstructive pulmonary disease, unspecified COPD ty pe J44.9 Active confirmed 34749176 Problem Seasonal allergic rhinitis due to pollen J30.1 Active confirmed 23578330 Problem Hiatal hernia K44.9 Active confirmed 555104 09 Problem Adenomatous polyp of ascending colon D12.2 Act chris confirmed 018148574 Problem H/O deep venous thrombosis Z86.718 Active confirmed 837499309 Problem Mixed hyperlipidemia E78.2 Active confirmed 480747347 Problem Type 2 diabetes mellitus with diabetic chronic kidney disease E11.22 Active confirmed 68269190 Problem History of pulmonary embolus (PE) Z86.711 Active confirmed 024710001 Problem Fatty liver K76.0 Active confirmed 33282543 7 ALLERGIES Allergen (clinical drug ingredient) Drug/Non Drug Allergy do cumented on EMR Reaction Allergy Type Onset Date Status Metoprolol & Diet Manage Prod Unknown Drug Allergy Active rubber Unknown Non Drug Allergy Active Motrin constipation Drug Allergy Active Quinolone Unknown Non Drug Allergy Active Latex Unknown Non Drug Allergy Active adhesive tape Unknown Non Drug Allergy Activ e ENCOUNTERS from 1950 to 2020-05-02 Encounter Location Date Provider Diagnosis [address] [address] 17 Apr, 2020 Hilda Castanon Type 2 diabetes mellitus with diabetic c hronic kidney disease E11.22 IMMUNIZATIONS Vaccine Route Administration Date Status COVID-19 dose #2 given elsewhere Unspecified Unknown Apr 27, 2020 Administered COVID-19 dose #1 given elsewhere Unspecified Unknown Apr 06, 2020 Administered SOCIAL HISTORY Tobacco Use: Social History Observation Description Date Details (start date - stop date) Former Smoker Sex Assigned At : Social History Observation Description Sex Assigned At Unknown Audit Question Answer Notes Total Score: 0 Interpretation: Alcohol Education Language: Question Answer Notes Languages spoken: Cypriot Mandaeism: Question Answer Notes Mandaeism No rastafari beliefs that would impact health care. Sexual [...] Notes Start Da te End Date Status Albuterol Sulfate (2.5 MG/3ML) 0.083% 3 ml as needed Inhalation heena ry 8 hrs Active July Have - compression stocking 15mmhg circ. at calf 43cm, size 12 shoe women's entire sock included topically Daily while out of bed for 999 days July, Active NovoLog 100 UNIT/ML as directed; MDD 116units Campuzano bcutaneous SScale for 8am, 12noon; Diff. SScale for HS for 30 Days Jan, Active Walker - 4 wheeled walker with seat DX M51.36 for 999 days July, Active ProAir HFA 108 (90 Base) MCG/ACT 2 puff as needed Inha lation every 4 hrs: keep at bedside July, Active Voltaren 1 % as directed Externally Active Omeprazole 40 MG 1 capsule Orally Once a day Active Lyrica 300 MG 1 cap Orally twice daily Active Multivitamin & Mineral _ 1 tab orally Daily for 30 Days Active July Have - rolator _ Daily for 999 days Active Victoza 18 MG/3ML 1.2 units Subcutaneous Daily for 30 Days Active Hydrocodone-Acetaminophen 5-325 MG 1 tablet as needed Orally every 4 hrs Active Eliquis 5 MG 1 tab Orally bid Active Tylenol 8 Hour Arthritis Pain 650 MG 1 tab Orally bid 23 A 2019 Active Chlorthalidone 25 MG 1 tab Orally Once a day Active Lyrica 300 MG 1 capsule Orally bid for 30 Days Active Potassium Chloride Padmini ER 20 MEQ 1 tablet with food Orally Once a da y Active Vascepa 1 GM 2 capsules with meals Orally Twice a day for 30 day(s) Active Losartan Potassium 50 MG 1 tablet Orally Once a day Active Vitamin D3 56521 UNIT 1 capsule Orally Active Cymbalta 60 MG 1 cap po twice daily for 30 Days 29 Abiodun, 20 20 Active Advair Diskus 100-50 MCG/DOSE as directed Inhalation Active Lantus SoloStar 100 UNIT/ML 74u at Qam, 40u at HS Subc utaneous bid: MDD 114U for 30 days Active Norvasc 5mg 1 tab orally Daily Activ e BD AutoShield Duo 30G X 5 MM DX E11.22 In vitro bid for 30 Days July, Active Milk of Magnesia 400 MG/5ML 5 ml at least 4 hours betw een doses as needed Orally Four times a day Active Fluticasone Propionate 50 MCG/ACT 2 spray in each nost ril Nasally Once a day for 30 days Active Acetaminophen 325 MG 1 tablet as needed Orally every 4 hrs Active May Have - wedge pillow nightly before bedtime for 999 days Feb, Active Ammonium Lactate 12 % 1 application to feet Wedding Cake Designer ally once daily at 5am for 30 days Active PROCEDURES No Information RESULTS No Results REASON FOR VISIT victoza refills MEDICAL (GENERAL) HISTORY Type Description Date Medical [...] head -, CT a&P -, cxray- 05/2019 Hospitalization History [facility] ED-Atypical chest pain 1 Goals Section No Information Health Concerns No Information MEDICAL EQUIPMENT No Information MENTAL STATUS No Information FUNCTIONAL STATUS No Information ASSESSMENTS Encounter Date Diagnosis Assessment Notes Treatment Notes Treatm ent Clinical Notes Apr, Type 2 diabetes mellitus wit h diabetic chronic kidney disease (ICD- 10 - E11.22) PLAN OF TREATMENT Medication Medication Name Sig Start Date Stop Date Chlorthalidone 25 MG 1 tab Orally Once a day Ammonium Lactate 12 % 1 application to feet Wedding Cake Designer ally once daily at 5am for 30 days Losartan Potassium 50 MG 1 tablet Orally Once a day Eliquis 5 MG 1 tab Orally bid Advair Diskus 100-50 MCG/DOSE as directed Inhalation Albuterol Sulfate (2.5 MG/3ML) 0.083% 3 ml as needed Inhalation every 8 hrs Norvasc 5mg 1 tab orally Daily ProAir HFA 108 (90 Base) MCG/ACT 2 puff as needed Inha lation every 4 hrs: keep at bedside July, Omeprazole 40 MG 1 capsule Orally Once a day Next Appt Details Provider Name:Gerard Alas, 2020-05-26 0 1:15:00 PM, [address] [place] [address], [phone], Provider Name:Hilda Castanon, 10-07 09:30:00 AM, [address] [place] [address], [phone], Insurance Providers Payer Name Payer Address Payer Phone Insured Name Patient Relati onship to Insured Coverage Start Date Coverage End Date [facility] [id number] [facility] [phone] [place] MEDICAID [facility] [address] [facility] [id number] [place] MEDICARE Part A and B [address] [facility] [phone] [place]
--- OUTSIDE RECORDS SUMMARY | 2020-05-05 18:08 | CCD ---
Author Author [facility] Organization [facility] Address Unknown Phone Unavailable Care Team Providers Care Line Tender Flakeboard Name Role Phone Hilda Castanon Unavailable PROBLEMS Type Condition ICD9-CM Code [id number] Code Onset Dates Condition S tatus W/U Status Risk SNOMED Code Notes Problem Rheumatoid factor positive R76.8 Active confirmed 452733822 Problem Trigger finger of both hands M65.30 Active con firmed [id number] Problem Arthralgia, unspecified joint M25.50 Active confirm ed 24003823 Problem Hyperplastic colonic polyp, unspecified part of colon K63.5 Active confirmed 293165017 Problem Current mild episode of kirby r depressive disorder, unspecified whether recurrent F32.0 Active confirmed 31033408 Problem Vitamin D deficiency E55.9 Active confirmed 53026495 Problem Cervical cancer screening Z12.4 Active confirmed 285560740 Problem Primary osteoarthritis of both knees M17.0 Act chris confirmed 768146583 Problem Diabetic polyneuropathy associated with type 2 d iabetes mellitus E11.42 Active confirmed 752230601 Problem Pre-syncope R55 Active confirmed 73802114 0 Problem Constipation, unspecified constipation type K59.00 Active confirmed 63115870 Problem DDD (degenerative disc disease), lumbar M51.36 Active confirmed 84676015 Problem Gastroesophageal reflux disease, esophagitis pre sence not specified K21.9 Active confirmed 166083088 Problem Breast cancer screening Z12.39 Active confirmed 940995531 Problem Essential hypertension I10 Active confirmed 54579342 Problem Personal history of pulmonary embolism Z86.711 A ctive confirmed 032145112 Problem USP (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 Z79.4 Activ e confirmed 881558768 Problem Chronic kidney disease, stage 3 (moderate) N18.3 Active confirmed 589922392 Problem Chronic obstructive pulmonary disease, unspecified COPD ty pe J44.9 Active confirmed 03565570 Problem Seasonal allergic rhinitis due to pollen J30.1 Active confirmed 68745184 Problem Hiatal hernia K44.9 Active confirmed 044484 09 Problem Adenomatous polyp of ascending colon D12.2 Act chris confirmed 878519536 Problem H/O deep venous thrombosis Z86.718 Active confirmed 881194928 Problem Mixed hyperlipidemia E78.2 Active confirmed 000100297 Problem Type 2 diabetes mellitus with diabetic chronic kidney disease E11.22 Active confirmed 34618706 Problem History of pulmonary embolus (PE) Z86.711 Active confirmed 153592625 Problem Fatty liver K76.0 Active confirmed 83493045 7 ALLERGIES Allergen (clinical drug ingredient) Drug/Non Drug Allergy do cumented on EMR Reaction Allergy Type Onset Date Status Metoprolol & Diet Manage Prod Unknown Drug Allergy Active rubber Unknown Non Drug Allergy Active Motrin constipation Drug Allergy Active Quinolone Unknown Non Drug Allergy Active Latex Unknown Non Drug Allergy Active adhesive tape Unknown Non Drug Allergy Activ e ENCOUNTERS from 1950 to 2020-04-28 Encounter Location Date Provider Diagnosis [address] [address] 15 Apr, 2020 Hilda Castanon DDD (degenerative disc disease), lumbar M51.36 IMMUNIZATIONS No Information SOCIAL HISTORY Tobacco Use: Social History Observation Description Date Details (start date - stop date) Former Smoker Sex Assigned At : Social History Observation Description Sex Assigned At Unknown Audit Question Answer Notes Total Score: 0 Interpretation: Alcohol Education Language: Question Answer Notes Languages spoken: Serbian Holiness: Question Answer Notes Holiness No mandaen beliefs that would impact health care. Sexual [...] 1 tab Orally bid A 2019 Active Losartan Potassium 50 MG 1 tablet Orally Once a day Active July Have - wedge pillow nightly before bedtime for 999 days Feb, Active Advair Diskus 100-50 MCG/DOSE 1 puff Inhalation Twice a day for 30 Days Feb, Active Chlorthalidone 25 MG 1 tab Orally Once a day Active Victoza 18 MG/3ML 1.2 units Subcutaneous Daily Active ProAir HFA 108 (90 Base) MCG/ACT 2 puff as needed Inha lation every 4 hrs: keep at bedside for 30 Days July, Active Omeprazole 40 MG 1 capsule Orally Once a day Active Multivitamin & Mineral _ 1 tab orally Daily for 30 Days Active Acetaminophen 8 Hour Acti ve Vascepa 1 GM 2 capsules with meals Orally Twice a day for 30 day(s) Active Voltaren 1 % as directed Externally Active Vitamin D3 88838 UNIT 1 capsule Orally Active BD AutoShield Duo 30G X 5 MM DX E11.22 In vitro bid for 30 Days July, Active Advair Diskus 100-50 MCG/DOSE as directed Inhalation Active Milk of Magnesia 400 MG/5ML 5 ml at least 4 hours betw een doses as needed Orally Four times a day Active Lyrica 300 MG 1 capsule Orally bid for 30 Days Active May Have - rolator _ Daily [...] for 30 Days 08 August, 020 Active PROCEDURES No Information RESULTS No Results REASON FOR VISIT Lyrica 300 MG Capsule MEDICAL (GENERAL) HISTORY Type Description Date Medical [...] Treatment Notes Treatm ent Clinical Notes Apr, DDD (degenerative disc disease), lumbar (ICD-10 - [...] MG 1 tab Orally Once a day Lyrica 300 MG 1 capsule Orally bid for 30 Days Next Appt Details Provider Name:Hilda Castanon, 2-18 10:00:00 AM, [address] [place] [address], [phone], Provider Name:Gerard Alas, 2020-05-26 0 1:15:00 PM, [address] [place] [address], [phone], Provider Name:Hilda Castanon, 10-07 09:30:00 AM, [address] [place] [address], [phone], Insurance Providers Payer Name Payer Address Payer Phone Insured Name Patient Relati onship to Insured Coverage Start Date Coverage End Date [facility] [id number] [facility] [id number] [place] MEDICARE Part A and B [address] [facility] [id number] [place] MEDICAID [facility] [address] [facility] [address] [phone] [place] self
--- OUTSIDE RECORDS SUMMARY | 2020-05-05 18:08 | CCD ---
Author Author [facility] Organization [facility] Address Unknown Phone Unavailable Care Team Providers Care [employer] Dean Name Role Phone Hilda Castanon Unavailable PROBLEMS Type Condition ICD9-CM Code INL16-MA Code Onset Dates Condition S tatus W/U Status Risk SNOMED Code Notes Problem Rheumatoid factor positive R76.8 Active confirmed 841350959 Problem Trigger finger of both hands M65.30 Active con firmed [id number] Problem Arthralgia, unspecified joint M25.50 Active confirm ed 32187147 Problem Hyperplastic colonic polyp, unspecified part of colon K63.5 Active confirmed 082657699 Problem Current mild episode of kirby r depressive disorder, unspecified whether recurrent F32.0 Active confirmed 59408336 Problem Vitamin D deficiency E55.9 Active confirmed 84317568 Problem Cervical cancer screening Z12.4 Active confirmed 620905350 Problem Primary osteoarthritis of both knees M17.0 Act chris confirmed 443487411 Problem Diabetic polyneuropathy associated with type 2 d iabetes mellitus E11.42 Active confirmed 843527458 Problem Pre-syncope R55 Active confirmed 30830409 0 Problem Constipation, unspecified constipation type K59.00 Active confirmed 65753149 Problem DDD (degenerative disc disease), lumbar M51.36 Active confirmed 72623227 Problem Gastroesophageal reflux disease, esophagitis pre sence not specified K21.9 Active confirmed 351205343 Problem Breast cancer screening Z12.39 Active confirmed 030776455 Problem Essential hypertension I10 Active confirmed 12416210 Problem Personal history of pulmonary embolism Z86.711 A ctive confirmed 513439190 Problem senior care (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 Z79.4 Activ e confirmed 297815717 Problem Chronic kidney disease, stage 3 (moderate) N18.3 Active confirmed 504941073 Problem Chronic obstructive pulmonary disease, unspecified COPD ty pe J44.9 Active confirmed 76539157 Problem Seasonal allergic rhinitis due to pollen J30.1 Active confirmed 57673875 Problem Hiatal hernia K44.9 Active confirmed 454377 09 Problem Adenomatous polyp of ascending colon D12.2 Act chris confirmed 337550969 Problem H/O deep venous thrombosis Z86.718 Active confirmed 894446922 Problem Mixed hyperlipidemia E78.2 Active confirmed 012651374 Problem Type 2 diabetes mellitus with diabetic chronic kidney disease E11.22 Active confirmed 25568966 Problem History of pulmonary embolus (PE) Z86.711 Active confirmed 464071837 Problem Fatty liver K76.0 Active confirmed 95803077 7 ALLERGIES Allergen (clinical drug ingredient) Drug/Non Drug Allergy do cumented on EMR Reaction Allergy Type Onset Date Status Metoprolol & Diet Manage Prod Unknown Drug Allergy Active rubber Unknown Non Drug Allergy Active Motrin constipation Drug Allergy Active Quinolone Unknown Non Drug Allergy Active Latex Unknown Non Drug Allergy Active adhesive tape Unknown Non Drug Allergy Activ e ENCOUNTERS from 1950 to 2020-04-30 Encounter Location Date Provider Diagnosis [address] [address] Apr, Hilda Castanon IMMUNIZATIONS Vaccine Route Administration Date Status Imm: COVID-19 dose #2 given elsewhere Unspecified Unknown Apr 27, 2020 Administered Imm: COVID-19 dose #1 given elsewhere Unspecified Unknown Apr 06, 2020 Administered SOCIAL HISTORY Tobacco Use: Social History Observation Description Date Details (start date - stop date) Former Smoker Sex Assigned At : Social History Observation Description Sex Assigned At Unknown Audit Question Answer Notes Total Score: 0 Interpretation: Alcohol Education Language: Question Answer Notes Languages spoken: Kiswahili Advent: Question Answer Notes Advent No yarsani beliefs that would impact health care. Sexual [...] Notes Start Da te End Date Status Potassium Chloride Padmini ER 20 MEQ 1 tablet with food Orally Once a da y Active Acetaminophen 325 MG 1 tablet as needed Orally every 4 hrs Active Lantus SoloStar 100 UNIT/ML 74u at Qam, 40u at HS Subc utaneous bid: MDD 114U for 30 days Active Milk of Magnesia 400 MG/5ML 5 ml at least 4 hours betw een doses as needed Orally Four times a day Active Losartan Potassium 50 MG 1 tablet [...] a day for 30 Days Feb, Active Norvasc 5mg 1 tab orally Daily Activ e Tylenol 8 Hour Arthritis Pain 650 MG 1 tab Orally bid A 2019 Active ProAir HFA 108 (90 Base) MCG/ACT 2 puff as needed Inha lation every 4 hrs: keep at bedside for 30 Days July, Active Omeprazole 40 MG 1 capsule Orally Once a day Active Multivitamin & Mineral _ 1 tab orally Daily for 30 Days Active Acetaminophen 8 Hour Acti ve BD AutoShield Duo 30G X 5 MM DX E11.22 In vitro bid for 30 Days July, Active Advair Diskus 100-50 MCG/DOSE as directed Inhalation Active Vitamin D3 05551 UNIT 1 capsule Orally Active Victoza 18 MG/3ML 1.2 units Subcutaneous Daily for 30 Days Active Chlorthalidone 25 MG 1 tab Orally Once a day Active Voltaren 1 % as directed Externally Active Lyrica 300 MG 1 capsule Orally bid for 30 Days Active May Have - rolator _ Daily for 999 days Active Vascepa 1 GM 2 capsules with [...] twice daily for 30 Days Aug, Active Cerovite Senior - 1 tab Orally Daily for 30 Days 08 August, 020 Active PROCEDURES No Information RESULTS No Results REASON FOR VISIT ED f/u MEDICAL (GENERAL) HISTORY Type Description Date [...] Medication Name Sig Start Date Stop Date Victoza 18 MG/3ML 1.2 units Subcutaneous Daily for 30 Days Omeprazole 40 MG 1 capsule Orally Once a day Losartan Potassium 50 MG 1 tablet Orally Once a day Eliquis 5 MG 1 tab Orally bid Chlorthalidone 25 MG 1 tab Orally Once a day Norvasc 5mg 1 tab orally Daily Lyrica 300 MG 1 capsule Orally bid for 30 Days Advair Diskus 100-50 MCG/DOSE as directed Inhalation Next Appt Details Provider Name:Hilda Castanon, 2-18 10:00:00 AM, [address] [place] [address], [phone], Provider Name:Gerard Alas, 2020-05-26 0 1:15:00 PM, [address] [place] [address], [phone], Provider Name:Hilda Castanon, 10-07 09:30:00 AM, [address] [place] [address], [phone], Insurance Providers Payer Name Payer Address Payer Phone Insured Name Patient Relati onship to Insured Coverage Start Date Coverage End Date MEDICARE Part A and B [address] [facility] [id number] [employer] [place] MEDICAID [employer] [address] [facility] [id number] [place] [facility] [address] [facility] [id number] [employer] [place]
--- OUTSIDE RECORDS SUMMARY | 2020-05-05 18:08 | CCD ---
Author Author [facility] Organization [facility] Address Unknown Phone Unavailable Care Team Providers Care [employer] Apprentice Name Role Phone Hilda Castanon Unavailable PROBLEMS Type Condition ICD9-CM Code AZG53-DA Code Onset Dates Condition S tatus W/U Status Risk SNOMED Code Notes Problem Rheumatoid factor positive R76.8 Active confirmed 992970118 Problem Trigger finger of both hands M65.30 Active con firmed [id number] Problem Arthralgia, unspecified joint M25.50 Active confirm ed 26927175 Problem Hyperplastic colonic polyp, unspecified part of colon K63.5 Active confirmed 483484451 Problem Current mild episode of kirby r depressive disorder, unspecified whether recurrent F32.0 Active confirmed 61367038 Problem Vitamin D deficiency E55.9 Active confirmed 48145982 Problem Cervical cancer screening Z12.4 Active confirmed 068842882 Problem Primary osteoarthritis of both knees M17.0 Act chris confirmed 581184156 Problem Diabetic polyneuropathy associated with type 2 d iabetes mellitus E11.42 Active confirmed 165752437 Problem Pre-syncope R55 Active confirmed 42555284 0 Problem Constipation, unspecified constipation type K59.00 Active confirmed 90243572 Problem DDD (degenerative disc disease), lumbar M51.36 Active confirmed 71756956 Problem Gastroesophageal reflux disease, esophagitis pre sence not specified K21.9 Active confirmed 268816189 Problem Breast cancer screening Z12.39 Active confirmed 067050620 Problem Essential hypertension I10 Active confirmed 79790624 Problem Personal history of pulmonary embolism Z86.711 A ctive confirmed 246712168 Problem [facility] (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 Z79.4 Activ e confirmed 186162362 Problem Chronic kidney disease, stage 3 (moderate) N18.3 Active confirmed 278720958 Problem Chronic obstructive pulmonary disease, unspecified COPD ty pe J44.9 Active confirmed 88842669 Problem Seasonal allergic rhinitis due to pollen J30.1 Active confirmed 91043062 Problem Hiatal hernia K44.9 Active confirmed 220044 09 Problem Adenomatous polyp of ascending colon D12.2 Act chris confirmed 770133643 Problem H/O deep venous thrombosis Z86.718 Active confirmed 031957543 Problem Mixed hyperlipidemia E78.2 Active confirmed 460950692 Problem Type 2 diabetes mellitus with diabetic chronic kidney disease E11.22 Active confirmed 37651020 Problem History of pulmonary embolus (PE) Z86.711 Active confirmed 826196443 Problem Fatty liver K76.0 Active confirmed 71404601 7 ALLERGIES Allergen (clinical drug ingredient) Drug/Non [...] to 2020-04-22 Encounter Location Date Provider Diagnosis [address] [address] 10 Apr, 2020 Hilda Kina Other chest pain R07.89 ; Essential hype rtension I10 ; Chronic obstructive pulmonary disease, unspecified COPD type J44.9 ; Gastroesophageal reflux disease, esophagitis presence not specified K21.9 ; Fatty liver K76.0 ; Personal history of pulmonary embolism Z86.711 and Breast cancer screening Z12.39 IMMUNIZATIONS No Information SOCIAL HISTORY Tobacco Use: Social History Observation Description Date Details (start date - stop date) Former Smoker Sex Assigned At : Social History Observation Description Sex Assigned At Unknown Audit Question Answer Notes Interpretation: Alcohol Education Total Score: 0 Language: Question Answer Notes Languages spoken: Estonian Gnosticist: Question Answer Notes Gnosticist No anabaptism beliefs that would impact health care. Sexual Hx: Question Answer Notes Had sex in the last 12 months (vaginal, oral, or anal)? No Drug and Alcohol Question Answer Notes Interpretation: No problems reported Total Score: 0 Alcohol Screening: Question Answer Notes Did you [...] FOR REFERRAL No Information VITAL SIGNS Weight 307 lbs Apr, Height 65 in Apr, BMI 51.08 kg/m2 Apr, Heart Rate 76 /min Apr, Respiratory Rate 18 /min Apr, Temperature 97.6 degrees Fahrenheit Apr, Oximetry 96 Apr, Blood pressure systolic 148 mm Hg Apr, Blood pressure diastolic 50 mm Hg Apr, MEDICATIONS Medication SIG (Take, Route, Frequency, Duration) [...] % as directed Externally Active Vitamin D3 60179 UNIT 1 capsule Orally Active BD AutoShield [...] Information RESULTS No Results REASON FOR VISIT 2 Months c SS MEDICAL (GENERAL) HISTORY Type Description Date Medical [...] Treatment Notes Treatm ent Clinical Notes Apr, Other chest pain (ICD-10 - R07.89) Will send back to ED, having CP, Rt. arm pain, SOB in office. Stat ekg c elevated ST V3,V4 compared c last ekg. Will send back to Ed via ambulance. Contacted ED, gave report to Shelley Charge nurse, at 10:05. Contacted CONCHA Tripathi at 10:15 to notify of going to ED. NTG-SL given at 10:06. Apr, Essential hypertension (ICD-10 - I10) Controlled Apr, Chronic obstructive pulmonar y disease, unspecified COPD type (ICD- 10 - J44.9) She is breathing well currently Apr, Gastroesophageal reflux dise ase, esophagitis presence not specified (ICD-10 - K21.9) much improved on ppi Apr, Fatty liver (ICD-10 - K76.0) Encouraged wt. loss Apr, Personal history of pulmonary embolism (ICD-10 - Z86.711) Cont. current rx, SOB & CP today on way to ED Apr, Breast cancer screening (ICD-10 - Z12.39) PLAN OF TREATMENT Medication Medication Name Sig Start Date Stop Date Eliquis 5 MG 1 tab Orally bid Omeprazole 40 MG 1 capsule Orally Once a day Norvasc 5mg 1 tab orally Daily Losartan Potassium 50 MG 1 tablet Orally Once a day Advair Diskus 100-50 MCG/DOSE as directed Inhalation Chlorthalidone 25 MG 1 tab Orally Once a day Treatment Notes Assessment Notes Clinical Notes Other chest pain Will send back to ED , having CP, Rt. arm pain, SOB in office. Stat ekg c elevated ST V3,V4 compared c last ekg. Will send back to Ed via ambulance. Contacted ED, gave report to Shelley Charge nurse, at 10:05. Contacted V Melani Tripathi at 10:15 to notify of going to ED. NTG-SL given at 10:06. Essential hypertension Controlled Chronic obstructive pulmonary disease, unspecified COPD type She is breathing well currently Gastroesophageal reflux disease, esophagitis presence not sp ecified much improved on ppi Fatty liver Encouraged wt. loss Personal history of pulmonary embolism C ont. current rx, SOB & CP today on way to ED Treatment Notes Test Name Order Date Electrocardiogram (EKG) 2020-04-22 Medication: Nitrostat Tab 0.4mg SL (Nitroglycerin) 03-14-09 Future Test Test Name Order Date [facility] Jd Screening Bilateral (Ultrasound if Indicated ) (3D Mammo) 20200720 Next Appt Details c Reason: Provider Name:Gerard Alas, 2020-05-26 0 1:15:00 PM, [address] [place] [address], [phone], Provider Name:Hilda Castanon, 10-07 09:30:00 AM, [address] [place] [address], [phone], Insurance Providers Payer Name Payer Address Payer Phone Insured Name Patient Relati onship to Insured Coverage Start Date Coverage End Date MEDICAID [employer] [address] [facility] [id number] [phone] [place] self MEDICARE Part A and B [address] [facility] [id number] [employer] [place]ILL[place] self
--- OUTSIDE RECORDS SUMMARY | 2020-05-05 18:10 | CCD ---
Author Author [facility] Organization [facility] Address Unknown Phone Unavailable Support Name Relationship Address Phone HORTENSIA KURTZ Next Of Kin [address] [place] [address] CATHIE HORTENSIA Next Of Kin [address] [place] [address] JEANNA [place] [address] Natali Martinez Next Of Kin [address] [place] [address] Rachel Le[place] [address] Jocy Castillo Next Of Kin [address] [place] [address] Tova Alvarado Next Of Kin [address] [place] [address] RACHEL LEIVA Next Of Kin [address] [address] HORTENSIA LEIVA Next Of Kin [address] [place] [address] MACI LEIVA Next Of Kin [address] [place] [id number] Jesse PAZ Next Of Kin [address] [place] [address] RE Next Of Kin Unknown Unavailable RETIRED Next Of Kin Unknown Unavailable UE Next Of Kin Unknown Unavailable INEZ PAZ Next Of Kin [address] [facility] [address] [place] [address] ANA PATIÑO Next Of Kin Unknown Unavailable TOÑ[place] [address] U DIS, DISABLED Next Of Kin Unknown Unavailable COUSINFORD Cline Next Of Kin [address] [place] [address] DISABLED Next Of Kin Unknown Unavailable COUSINRACHEL [place] [address] FLORECITA GUIDRY Next Of Kin [address] [place] [address] RACHEL LEIVA ECON [address] [facility] [address] [place] [address] Unavailable Hortensia Rodriguez ECON Unknown Unavailable FLORECITA PEREZ ECON [place], [place] [phone] CousinRachel cline ECON Unknown Unavailable Care Team Providers Care Buffing Wheel Former Machine Name Role Phone DRAZEK, I JAJA PA [...] Unavailable Unavailable KLARISSADede TEJEDA MD Unavailable Unavailable KLARISSADdee Jeffers MD Unavailable Unavailable Dede HERNÁNDEZ MD Unavailable Unavailable Dede HERNÁNDEZ MD Unavailable Unavailable Dede HERNÁNDEZ MD Unavailable Unavailable Dede HERNÁNDEZ MD Unavailable Unavailable Dede HERNÁNDEZ MD Unavailable Unavailable Dede HERNNÁDEZ MD Unavailable Unavailable Dede HERNÁNDEZ MD Unavailable [...] Unavailable Dede HERNÁNDEZ MD Unavailable Unavailable KLARISSADede Jeffers MD Unavailable Unavailable CHAUHAN, ISAIAH MARCIE RPA-C [...] MD Unavailable Unavailable ANTECOLJoe MD Unavailable Unavailable ANTECOLJoe [...] Unavailable Jessica VILLATORO, Rubin Mcdonald Unavailable Unavailable WnRubin fuentes MD Unavailable Unavailable Rubin Lopez MD Unavailable [...] Unavailable Unavailable Rubin Lopez MD Unavailable Unavailable Jessica VILLATORO, Rubin Mcdonald Unavailable Unavailable Jessica VILLATORO, C Harry Unavailable Unavailable Jessica VILLATORO, C Harry Unavailable Unavailable Jessica VILLATORO, C Harry Unavailable Unavailable Jessica VILLATORO, C Harry Unavailable Unavailable Jessica VILLATORO, C Harry Unavailable Unavailable Jessica VILLATORO, C Harry Unavailable Unavailable Jessica VILLATORO, C Harry Unavailable Unavailable Jessiac VILLATORO, C Harry Unavailable Unavailable Jessica VILLATORO, [...] Ali, Delvis MD Unavailable Unavailable Ali, Delvis Unavailable Unavailable Ali, Delvis MD Unavailable Unavailable [...] Ali, Delvis MD Unavailable Unavailable Ali, Delvis Unavailable Unavailable Ali, Delvis VILLATORO Unavailable Unavailable Ali, Delvis VILLATORO Unavailable Unavailable AliDelvis MD Unavailable Unavailable Delvis Acosta MD Unavailable Unavailable Delvis Acosta MD Unavailable Unavailable AliDelvis MD Unavailable Unavailable AliDelvis MD Unavailable Unavailable Ali, Delvis MD Unavailable Unavailable Ali, Delvis MD Unavailable Unavailable AliDelvis MD Unavailable Unavailable Joe BAUER MD Unavailable [...] Juan Jose, Rj Gonsalez MD Unavailable Unavailable uJan Jose, Rj Gonsalez MD Unavailable Unavailable Juan Jose, Rj Gonsalez MD Unavailable Unavailable Ingram, Rj Gonsalez MD Unavailable Unavailable Ingram, Rj Gonsalez MD Unavailable Unavailable Ingram, Rj Gonsalez MD Unavailable Unavailable Ingram, Rj Gonsalez MD Unavailable Unavailable Juan Jose, Rj Gonsalez MD Unavailable Unavailable Juan Jose, Rj Gonsalez MD Unavailable Unavailable Juan Jose, Rj Gonsalez MD Unavailable Unavailable Ingram, Rj Gonsalez MD Unavailable Unavailable Ingram, Rj Gonsalez MD Unavailable Unavailable Nikos, Natali C PROGRAMMER C PROGRAMMER Unavailable Unavailable [facility], RFROST CHAUHAN PA MARCIE Unavailable Unavailable Nikos, A Natali C PROGRAMMER Unavailable Unavailable Nikos, A Natali C PROGRAMMER Unavailable Unavailable Nikos, A Natali C PROGRAMMER Unavailable Unavailable Nikos, A Natali C PROGRAMMER Unavailable Unavailable Nikos, A Natali C PROGRAMMER Unavailable Unavailable Nikos, A Natali C PROGRAMMER Unavailable Unavailable Nikos, A Natali C PROGRAMMER Unavailable Unavailable Nikos, A Natali C PROGRAMMER Unavailable Unavailable Nikos, A Natali C PROGRAMMER Unavailable Unavailable Nikos, A Natali C PROGRAMMER Unavailable Unavailable Nikos, A Natali C PROGRAMMER Unavailable Unavailable Nikos, A Natali C PROGRAMMER Unavailable Unavailable Nikos, A Natali C PROGRAMMER Unavailable Unavailable Nikos, A Natali C PROGRAMMER Unavailable Unavailable Nikos, A Natali C PROGRAMMER Unavailable Unavailable Nikos, A Natali C PROGRAMMER Unavailable Unavailable Nikos, A Natali C PROGRAMMER Unavailable Unavailable Nikos, A Natali C PROGRAMMER Unavailable Unavailable Nikos, A Natali C PROGRAMMER Unavailable Unavailable Nikos, A Natali C PROGRAMMER Unavailable Unavailable Nikos, A Natali C PROGRAMMER Unavailable Unavailable Nikos, A Natali C PROGRAMMER Unavailable Unavailable Nikos, A Natali C PROGRAMMER Unavailable Unavailable Nikos, A Natali C PROGRAMMER Unavailable Unavailable Nikos, A Natali C PROGRAMMER Unavailable Unavailable Nikos, A Natali C PROGRAMMER Unavailable Unavailable Nikos, A Natali C PROGRAMMER Unavailable Unavailable Nikos, A Natali C PROGRAMMER Unavailable Unavailable Re-disclosure Warning The records that [...] is protected by Article 27-F of the [facility] Public Health law. If you continue you may have access to information: Regarding HIV / AIDS; Provided by facilities licensed or operated by the [facility] Office of Mental Health; or Provided by the [facility] Office for People With Developmental Disabilities. If such information is present, then the following [facility] mandated warning applies: This information has [...] law may result in a fine or penitentiary sentence or both. A general authorization for the release of medical or other information is NOT sufficient authorization for further disc losure. Allergies and Adverse Reactions Type Description Substance Reaction Status Data Source(s ) Propensity to adverse reactions QUINOLONES Quinolones Acti ve [facility] Propensity to adverse reactions MORPHINE AND RELATED Morphine And R elated Active [facility] Propensity to adverse reactions METOPROLOL Metoprolol Acti ve [facility] Propensity to adverse reactions IBUPROFEN Ibuprofen Acti ve [facility] Propensity to adverse reactions ADHESIVE TAPE Adhesive Tape Rash Low Active [facility] Low Quinolone Quinolone Quinolone Unknown Active eCW1 ([facility]) Drug allergy Metoprolol & Diet Manage Prod Metoprolol & Diet Manage Prod Unknown Active eCW1 ([facility]) Motrin Motrin Motrin constipation Active eCW1 ([facility]) Latex Latex Latex Unknown Active eCW1 ([facility]) adhesive tape adhesive tape adhesive tape Unknown Active eCW1 ([facility]) rubber rubber rubber Unknown Active eCW1 ([facility]) Latex Latex Latex Unknown Active eCW1 ([facility]) Drug allergy Metoprolol & Diet Manage Prod Metoprolol & Diet Manage Prod Unknown Active eCW1 ([facility]) Motrin Motrin Motrin constipation Active eCW1 ([facility]) adhesive tape adhesive tape adhesive tape Unknown Active eCW1 ([facility]) Quinolone Quinolone Quinolone Unknown Active eCW1 ([facility]) rubber rubber rubber Unknown Active eCW1 ([facility]) Family History Family Member Name Family Member Gender Family Member Status Date o f Status Description Data Source(s) Unknown Male Problem MEDENT ([facility]) Encounters Encounter Providers Location Date Indications Data Source(s ) Unknown [address] [facility] [address] 04/29/2020 12:00:00 AM EST eCW1 ([facility]) [place] [address] [facility] [address] 04/27/2020 12:00:00 AM EST eCW1 ([facility]) [place] [address] [facility] [address] 04/27/2020 12:00:00 AM EST eCW1 ([facility]) [place] [address] [facility] [address] 04/22/2020 12:00:00 AM EST eCW1 ([facility]) Office Visit, Est Pt., Level 5 PC [address] [place] [address] 04/22/2020 12:00:00 AM EST eCW1 ([facility]) Unknown [address] [facility] [address] 04/15/2020 12:00:00 AM EST [facility] OFFICE OUTPATIENT VISIT 15 MINUTES Attender: JAJA PABLO Phys ical Therapy 04/08/2020 10:30:00 AM EST MEDENT ([facility]) Office Visit, Est Pt., Level 4 PC [address] [place] [address] 04/08/2020 12:00:00 AM EST eCW1 ([facility]) Unknown [address] [facility] [address] 04/01/2020 12:00:00 AM EST eCW1 ([facility]) Unknown [address] [facility] [address] 03/31/2020 12:00:00 AM EST eCW1 [facility]) Office Visit, Est Pt., Level 3 PC [address] [place] [address] 03/24/2020 12:00:00 AM EST eCW1 ([facility]) Unknown [address] [facility] [address] 03/23/2020 12:00:00 AM EST eCW1 ([facility] Unknown [address] [facility] [address] 02/28/2020 12:00:00 AM EST eCW1 ([facility] Unknown [address] [facility] [address] 02/28/2020 12:00:00 AM EST eCW1 ([facility]) Unknown [address] [facility] [address] 02/28/2020 12:00:00 AM EST eCW1 ([facility] Unknown [address] [facility] [place] [address] 02/28/2020 12:00:00 AM EST eCW1 ([facility]) Office Visit, Est Pt., Level 3 PC [address] [place] [address] 02/27/2020 12:00:00 AM EST eCW1 ([facility]) Unknown [address] [facility] [place] [address] 02/24/2020 12:00:00 AM EST eCW1 ([facility]) Office Visit, Est Pt., Level 4 PC [address] [place] [address] 02/21/2020 12:00:00 AM EST eCW1 ([facility]) Unknown [address] [facility] [address] 02/17/2020 12:00:00 AM EST eCW1 ([facility]) Unknown [address] [place] [address] [place] [address] 01/20/2020 12:00:00 AM EST eCW1 [facility] Outpatient Attender: Delvis Acosta MD Main office - [place] 01/17/2020 07:30:00 AM EST MEDENT ([facility], ) Unknown [address] [facility] Y [address] 01/17/2020 12:00:00 AM EST eCW1 ([facility]) Unknown [address] [facility] Y [address] 01/17/2020 12:00:00 AM EST eCW1 ([facility]) Unknown [address] [facility] Y [address] 01/15/2020 12:00:00 AM EST eCW1 ([facility]) Unknown [address] [facility] Y [address] 01/14/2020 12:00:00 AM EST eCW1 ([facility]) Unknown [address] [facility] Y [address] 01/14/2020 12:00:00 AM EST eCW1 ([facility]) [place] [address] [facility] [address] 01/13/2020 12:00:00 AM EST eCW1 ([facility]) Unknown [address] [facility] [address] 01/09/2020 12:00:00 AM EDT eCW1 ([facility]) Unknown [address] [facility] [address] 01/08/2020 12:00:00 AM EDT eCW1 ([facility]) Outpatient [address] [facility] Y [address] 01/07/2020 12:00:00 AM EDT eCW1 ([facility]) Unknown [address] [facility] [place] [address] 12/30/2019 12:00:00 AM EDT eCW1 ([facility] [place] [address] [facility] [address] 12/23/2019 12:00:00 AM EDT eCW1 ([facility]) [place] [address] [facility] [address] 12/20/2019 12:00:00 AM EDT eCW1 ([facility]) Unknown [address] [facility] [place] [address] 12/20/2019 12:00:00 AM EDT eCW1 ([facility]) Unknown [address] [facility] [address] 12/19/2019 12:00:00 AM EDT eCW1 ([facility]) Unknown [address] [facility] [place] [address] 12/19/2019 12:00:00 AM EDT eCW1 ([facility]) Outpatient Attender: Wallace Guardado/Ricardo/Russell/Kimberly fitzpatrick 12/12/2019 02:00:00 PM EDT MEDENT ([facility] [address] [facility] [address] 10/31/2019 12:00:00 AM EDT eCW1 ([facility]) Unknown [address] [facility] [address] 09/27/2019 12:00:00 AM EDT eCW1 ([facility]) Unknown [address] [facility] [address] 09/23/2019 12:00:00 AM EDT eCW1 ([facility]) Outpatient Attender: SANDRA OLIVA MDAdmitter: SANDRA GONZALEZ CHI, MD [email or web address].CVAU 08/27/2019 06:06:00 AM EDT - 08/27/2019 11:25:00 AM EDT [facility] Patient discharged. Unknown [address] [facility] [address] 08/26/2019 12:00:00 AM EDT eCW1 ([facility]) Outpatient Referrer: SANDRA OLIVA MD MOB-MOB.PAT 08/24/2019 09:12:5 6 AM EDT [facility] Unknown [address] [facility] [address] 08/14/2019 12:00:00 AM EDT eCW1 ([facility]) Outpatient Attender: TAMI EHRNANDEZ MD Main Office 08/13/2019 12:15:00 PM EDT MEDENT ([facility]) [facility] [address] [facility] [address] 08/13/2019 12:00:00 AM EDT eCW1 ([facility]) Outpatient Attender: TAMI Guardado/Ricardo/Russell/Jules dl 08/09/2019 09:00:00 AM EDT [facility] [address] [facility] [address] 08/09/2019 12:00:00 AM EDT eCW1 ([facility]) [facility] [address] [facility] [address] 08/07/2019 12:00:00 AM EDT eCW1 ([facility]) [address] [address] 08/07/2019 12:00:00 AM EDT eCW1 ([facility]) Outpatient Attender: Wallace Guardado/Ricardo/Russell/Kimberly fitzpatrick 08/02/2019 09:15:00 AM EDT MEDENT ([facility] [address] [place] [address], [place] [address] 08/02/2019 12:00:00 AM EDT eCW1 ([facility]) [address] [address] 08/01/2019 12:00:00 AM EDT eCW1 ([facility]) [address] [address] 07/30/2019 12:00:00 AM EDT eCW1 ([facility]) [address] [address] 07/23/2019 12:00:00 AM EDT eCW1 ([facility]) [address] [address] 07/22/2019 12:00:00 AM EDT eCW1 ([facility]) [address] [address] 07/22/2019 12:00:00 AM EDT eCW1 ([facility]) [address] [address] 07/18/2019 12:00:00 AM EDT eCW1 ([facility]) [address] [address] 07/17/2019 12:00:00 AM EDT eCW1 ([facility]) [address] [address] 07/16/2019 12:00:00 AM EDT eCW1 ([facility]) Outpatient Attender: Wallace Guardado/Ricardo/Selina fitzpatrick 07/04/2019 01:30:00 PM EDT MEDENT ([facility]) [address] [address] 07/04/2019 12:00:00 AM EDT eCW1 ([facility]) [address] [address] 07/02/2019 12:00:00 AM EDT eCW1 ([facility]) [address] [address] 07/01/2019 12:00:00 AM EDT eCW1 ([facility]) [address] [address] 07/01/2019 12:00:00 AM EDT eCW1 ([facility]) [address] [address] 06/26/2019 12:00:00 AM EDT eCW1 ([facility]) [address] [address] 06/25/2019 12:00:00 AM EDT eCW1 ([facility]) [address] [address] 06/12/2019 12:00:00 AM EDT eCW1 ([facility]) [address] [address] 06/12/2019 12:00:00 AM EDT eCW1 ([facility]) Outpatient Attender: LEDY JACK NMROB [facility] 05/13 08:20:01 AM EDT [facility] Outpatient Attender: MARCIE CHAUHAN RPA-C [facility] 06/11/2019 07:56:03 AM EDT [facility] Outpatient Attender: LEDY KNOWLES [facility] 05/13 07:55:01 AM EDT [address] [address] 06/11/2019 12:00:00 AM EDT eC1 ([facility]) Outpatient Attender: MARCIE ARAGONC [facility] 06/05/2019 02:24:04 PM EDT [facility] Outpatient Referrer: MARC BAUER MD 06/04/2019 11:00:00 AM EDT [facility] Outpatient Attender: MARCIE ARAGONC [facility] 05/31/2019 04:14:02 PM EDT [facility] Outpatient Attender: LEDY KNOWLES [facility] 05/12 04:14:01 PM EDT [facility] Outpatient Attender: LEDY KNOWLES [facility] 05/11 11:18:02 AM EDT [facility] Outpatient Attender: MARCIE ARAGONC [facility] 05/27/2019 03:08:01 PM EDT [facility] Outpatient Attender: LEDY KNOWLES [facility] 05/11 03:08:00 PM EDT [facility] Outpatient Attender: LEDY KNOWLES [facility] 05/11 11:19:01 AM EDT [facility] Outpatient Attender: MARCIE BELLAMY [facility] 05/24/2019 02:58:01 PM EDT [facility] Outpatient Attender: TYESHA ARAMBULA 05/17/2019 01:33:01 P M [facility] Outpatient Referrer: MARC BAUER MD 05/14/2019 12:29:00 PM EST [facility] Outpatient Referrer: MARC BAUER MD 05/10/2019 02:20:00 PM EST [facility] Outpatient Attender: TYESHA ARAMBULA 05/09/2019 01:51:01 P M [facility] Outpatient Attender: TYESHA PEREZ 05/07/2019 03:29:00 P M [facility] Outpatient Attender: TYESHA ARAMBULA FP 05/06/2019 08:46:01 A M [facility] Outpatient Attender: Natali Knott C PROGRAMMER FP 04/24/2019 10:4 3:02 AM [facility] Outpatient Attender: Natali NGP FP 04/23/2019 11:5 7:01 AM [facility] Outpatient Attender: Natali GNP FP 04/23/2019 08:1 3:06 AM [facility] Outpatient Attender: Natali Knott C PROGRAMMER FP 04/22/2019 08:2 0:03 AM [facility] Outpatient Attender: TYESHA Knott C PROGRAMMER FP 04/22/2019 08:20:02 A M [facility] Outpatient Attender: TYESHA Knott C PROGRAMMER FP 04/18/2019 02:26:05 P M [facility] Outpatient Attender: TYESHA Knott C PROGRAMMER FP 04/18/2019 12:56:01 P M [facility] Outpatient Attender: Natali NGP FP 04/11/2019 11:4 3:02 AM [facility] Outpatient Attender: TYESHA Knott C PROGRAMMER FP 04/10/2019 08:20:04 A M [facility] Outpatient Attender: Natali Knott C PROGRAMMER FP 04/10/2019 08:2 0:[address] [facility] Outpatient Attender: Natali NGP FP 04/08/2019 10:2 6:[address] [facility] Outpatient Attender: Natali Knott C PROGRAMMER FP 04/08/2019 10:2 3:00 AM [facility] Outpatient Attender: TYESHA Knott C PROGRAMMER FP 04/05/2019 09:29:24 A M [facility] Outpatient Attender: TYESHA Knott C PROGRAMMER FP 04/03/2019 03:29:01 P [facility] Outpatient Attender: TYESHA NGP FP 04/03/2019 03:27:00 P M [facility] Outpatient Attender: TYESHA NGP FP 04/03/2019 03:25:09 P M [facility] Outpatient Attender: TYESHA NGP FP 04/03/2019 02:54:01 P M [facility] Outpatient Attender: Harry Lopez MDReferrer: TAMI STORY MD 04/02/2019 12:15:45 PM EST [facility] Outpatient Attender: TYESHA ARAMBULA FP 04/01/2019 04:39:00 P [facility] Outpatient Attender: TAMI HERNÁNDEZ MD 04/01/2019 04:38:00 P [facility] Outpatient Attender: TAMI HERNÁNDEZ MD 04/01/2019 04:31:01 P [facility] Outpatient Attender: TAMI HERNÁNDEZ MD 04/01/2019 10:52:00 A [facility] Outpatient Attender: TAMI HERNÁNDEZ MD 03/26/2019 12:26:01 P [facility] Outpatient Attender: TAMI HERNÁNDEZ MD 03/25/2019 12:02:00 P [facility] Recurring Patient Attender: Harry Lopez MDReferrer: TAMI TERRAZAS MD 03/22/2019 01:51:43 PM EST [facility] Out[facility] Attender: TAMI Guardado/Ricardo/Russell/Jules dl 03/22/2019 09:30:00 AM EST MEDENT ([facility]) Outpatient Attender: TAMI HERNÁNDEZ MD 03/21/2019 10:21:01 A [facility] Outpatient Attender: TAMI HERNÁNDEZ MD 03/14/2019 12:45:00 P [facility] Outpatient Attender: TAMI HERNÁNDEZ MD 03/07/2019 08:41:01 A [facility] Immunizations Vaccine Date Status Description Data Source(s) COVID-19 dose #2 given elsewhere Unspecified 04/27/2020 01:4 2:00 PM EST completed eCW1 ([facility]) Imm: COVID-19 dose #2 given elsewhere Unspecified 04/27/2020 01:42:00 PM EST completed eCW1 ([facility]) COVID-19 dose #1 given elsewhere Unspecified 04/06/2020 01:4 1:00 PM EST completed eCW1 ([facility]) Imm: COVID-19 dose #1 given elsewhere Unspecified 04/06/2020 01:41:00 PM EST completed eCW1 ([facility]) Medications Medication Brand Name Start Date Product Form Dose Route Admi nistrative Instructions Pharmacy Instructions Status Indications Reaction Description Data Source(s) ammonium lactate 120 MG/ML Topical Cream Ammonium Lactate 04/23/2020 12:00:00 AM EST active MEDENT ([facility] Doxycycline Monohydrate 100 MG Oral Capsule Doxycycline [place] hydrate 100 MG 03/24/2020 12:00:00 AM EST 1.0 {capsule} active Doxycycline Monohydrate 100 MG eCW1 ([facility]) pregabalin 300 MG Oral Capsule [Lyrica] Lyrica 300 MG Lyrica 300 MG 03/24/2020 12:00:00 AM EST active Lyrica 3 00 MG eCW1 ([facility]) Doxycycline Monohydrate 100 MG Oral Capsule Doxycycline [place] hydrate 100 MG 03/24/2020 12:00:00 AM EST 1.0 {capsule} active Doxycycline Monohydrate 100 MG eCW1 ([facility]) pregabalin 300 MG Oral Capsule [Lyrica] Lyrica 300 MG Lyrica 300 MG 03/24/2020 12:00:00 AM EST active Lyrica 3 00 MG eCW1 ([facility]) pregabalin 300 MG Oral Capsule [Lyrica] Lyrica 300 MG Lyrica 300 MG 03/24/2020 12:00:00 AM EST active Lyrica 3 00 MG eCW1 ([facility]) pregabalin 300 MG Oral Capsule [Lyrica] Lyrica 300 MG Lyrica 300 MG 03/24/2020 12:00:00 AM EST active Lyrica 3 00 MG eCW1 ([facility]) Doxycycline Monohydrate 100 MG Oral Capsule Doxycycline [place] hydrate 100 MG 03/24/2020 12:00:00 AM EST 1.0 {capsule} active Doxycycline Monohydrate 100 MG eCW1 ([facility]) pregabalin 300 MG Oral Capsule [Lyrica] Lyrica 300 MG Lyrica 300 MG 03/24/2020 12:00:00 AM EST active Lyrica 3 00 MG eCW1 ([facility]) May Have - UNK 02/27/2020 12:00:00 AM EST active May Have - eCW1 ([facility]) May Have - UNK 02/27/2020 12:00:00 AM EST active May Have - eCW1 ([facility]) May Have - UNK 02/27/2020 12:00:00 AM EST active May Have - eCW1 ([facility]) May Have - UNK 02/27/2020 12:00:00 AM EST active May Have - eCW1 ([facility]) pregabalin 50 MG Oral Capsule [Lyrica] Lyrica 50 MG Lyrica 5 0 MG 02/27/2020 12:00:00 AM EST active Lyrica 5 0 MG eCW1 ([facility]) May Have - UNK 02/27/2020 12:00:00 AM EST active May Have - eCW1 ([facility]) May Have - UNK 02/27/2020 12:00:00 AM EST active May Have - eCW1 ([facility]) pregabalin 50 MG Oral Capsule [Lyrica] Lyrica 50 MG Lyrica 5 0 MG 02/27/2020 12:00:00 AM EST active Lyrica 5 0 MG eCW1 ([facility]) pregabalin 50 MG Oral Capsule [Lyrica] Lyrica 50 MG Lyrica 5 0 MG 02/27/2020 12:00:00 AM EST active Lyrica 5 0 MG eCW1 ([facility]) May Have - UNK 02/27/2020 12:00:00 AM EST active May Have - eCW1 ([facility]) May Have - UNK 02/27/2020 12:00:00 AM EST active May Have - eCW1 ([facility]) May Have - UNK 02/27/2020 12:00:00 AM EST active May Have - eCW1 ([facility]) May Have - UNK 02/27/2020 12:00:00 AM EST active May Have - eCW1 ([facility]) May Have - UNK 02/27/2020 12:00:00 AM EST active May Have - eCW1 ([facility]) May Have - UNK 02/27/2020 12:00:00 AM EST active May Have - eCW1 ([facility]) pregabalin 50 MG Oral Capsule [Lyrica] Lyrica 50 MG Lyrica 5 0 MG 02/27/2020 12:00:00 AM EST active Lyrica 5 0 MG eCW1 ([facility]) pregabalin 50 MG Oral Capsule [Lyrica] Lyrica 50 MG Lyrica 5 0 MG 02/27/2020 12:00:00 AM EST active Lyrica 5 0 MG eCW1 ([facility]) May Have - UNK 02/27/2020 12:00:00 AM EST active May Have - eCW1 ([facility]) May Have - UNK 02/27/2020 12:00:00 AM EST active May Have - eCW1 ([facility]) pregabalin 50 MG Oral Capsule [Lyrica] Lyrica 50 MG Lyrica 5 0 MG 02/27/2020 12:00:00 AM EST active Lyrica 5 0 MG eCW1 ([facility]) pregabalin 50 MG Oral Capsule [Lyrica] Lyrica 50 MG Lyrica 5 0 MG 02/27/2020 12:00:00 AM EST active Lyrica 5 0 MG eCW1 ([facility]) May Have - UNK 02/27/2020 12:00:00 AM EST active May Have - eCW1 ([facility]) May Have - UNK 02/27/2020 12:00:00 AM EST active May Have - eCW1 ([facility]) May Have - UNK 02/27/2020 12:00:00 AM EST active May Have - eCW1 ([facility]) 60 ACTUAT Fluticasone propionate 0.1 MG/ ACTUAT / salmeterol 0.05 MG/ACTUAT Dry Powder Inhaler [Advair] Advair Diskus 100-50 MCG/DOSE Advair Diskus 100-50 MCG/DOSE 02/21/2020 12:00:00 AM EST 1.0 {puff} activ e Advair Diskus 100-50 MCG/DOSE eCW1 ([facility]) 60 ACTUAT Fluticasone propionate 0.1 MG/ ACTUAT / salmeterol 0.05 MG/ACTUAT Dry Powder Inhaler [Advair] Advair Diskus 100-50 MCG/DOSE Advair Diskus 100-50 MCG/DOSE 02/21/2020 12:00:00 AM EST 1.0 {puff} activ e Advair Diskus 100-50 MCG/DOSE eCW1 ([facility]) 60 ACTUAT Fluticasone propionate 0.1 MG/ ACTUAT / salmeterol 0.05 MG/ACTUAT Dry Powder Inhaler [Advair] Advair Diskus 100-50 MCG/DOSE Advair Diskus 100-50 MCG/DOSE 02/21/2020 12:00:00 AM EST 1.0 {puff} activ e Advair Diskus 100-50 MCG/DOSE eCW1 ([facility]) 60 ACTUAT Fluticasone propionate 0.1 MG/ ACTUAT / salmeterol 0.05 MG/ACTUAT Dry Powder Inhaler [Advair] Advair Diskus 100-50 MCG/DOSE Advair Diskus 100-50 MCG/DOSE 02/21/2020 12:00:00 AM EST 1.0 {puff} activ e Advair Diskus 100-50 MCG/DOSE eCW1 ([facility]) 60 ACTUAT Fluticasone propionate 0.1 MG/ ACTUAT / salmeterol 0.05 MG/ACTUAT Dry Powder Inhaler [Advair] Advair Diskus 100-50 MCG/DOSE Advair Diskus 100-50 MCG/DOSE 02/21/2020 12:00:00 AM EST 1.0 {puff} activ e Advair Diskus 100-50 MCG/DOSE eCW1 ([facility]) 60 ACTUAT Fluticasone propionate 0.1 MG/ ACTUAT / salmeterol 0.05 MG/ACTUAT Dry Powder Inhaler [Advair] Advair Diskus 100-50 MCG/DOSE Advair Diskus 100-50 MCG/DOSE 02/21/2020 12:00:00 AM EST 1.0 {puff} activ e Advair Diskus 100-50 MCG/DOSE eCW1 ([facility]) 60 ACTUAT Fluticasone propionate 0.1 MG/ ACTUAT / salmeterol 0.05 MG/ACTUAT Dry Powder Inhaler [Advair] Advair Diskus 100-50 MCG/DOSE Advair Diskus 100-50 MCG/DOSE 02/21/2020 12:00:00 AM EST 1.0 {puff} activ e Advair Diskus 100-50 MCG/DOSE eCW1 ([facility]) 60 ACTUAT Fluticasone propionate 0.1 MG/ ACTUAT / salmeterol 0.05 MG/ACTUAT Dry Powder Inhaler [Advair] Advair Diskus 100-50 MCG/DOSE Advair Diskus 100-50 MCG/DOSE 02/21/2020 12:00:00 AM EST 1.0 {puff} activ e Advair Diskus 100-50 MCG/DOSE eCW1 ([facility]) 60 ACTUAT Fluticasone propionate 0.1 MG/ ACTUAT / salmeterol 0.05 MG/ACTUAT Dry Powder Inhaler [Advair] Advair Diskus 100-50 MCG/DOSE Advair Diskus 100-50 MCG/DOSE 02/21/2020 12:00:00 AM EST 1.0 {puff} activ e Advair Diskus 100-50 MCG/DOSE eCW1 ([facility]) 60 ACTUAT Fluticasone propionate 0.1 MG/ ACTUAT / salmeterol 0.05 MG/ACTUAT Dry Powder Inhaler [Advair] Advair Diskus 100-50 MCG/DOSE Advair Diskus 100-50 MCG/DOSE 02/21/2020 12:00:00 AM EST 1.0 {puff} activ e Advair Diskus 100-50 MCG/DOSE eCW1 ([facility]) 60 ACTUAT Fluticasone propionate 0.1 MG/ ACTUAT / salmeterol 0.05 MG/ACTUAT Dry Powder Inhaler [Advair] Advair Diskus 100-50 MCG/DOSE Advair Diskus 100-50 MCG/DOSE 02/21/2020 12:00:00 AM EST 1.0 {puff} activ e Advair Diskus 100-50 MCG/DOSE eCW1 ([facility]) 60 ACTUAT Fluticasone propionate 0.1 MG/ ACTUAT / salmeterol 0.05 MG/ACTUAT Dry Powder Inhaler [Advair] Advair Diskus 100-50 MCG/DOSE Advair Diskus 100-50 MCG/DOSE 02/21/2020 12:00:00 AM EST 1.0 {puff} activ e Advair Diskus 100-50 MCG/DOSE eCW1 ([facility]) 60 ACTUAT Fluticasone propionate 0.1 MG/ ACTUAT / salmeterol 0.05 MG/ACTUAT Dry Powder Inhaler [Advair] Advair Diskus 100-50 MCG/DOSE Advair Diskus 100-50 MCG/DOSE 02/21/2020 12:00:00 AM EST 1.0 {puff} activ e Advair Diskus 100-50 MCG/DOSE eCW1 ([facility]) 60 ACTUAT Fluticasone propionate 0.1 MG/ ACTUAT / salmeterol 0.05 MG/ACTUAT Dry Powder Inhaler [Advair] Advair Diskus 100-50 MCG/DOSE Advair Diskus 100-50 MCG/DOSE 02/21/2020 12:00:00 AM EST 1.0 {puff} activ e Advair Diskus 100-50 MCG/DOSE eCW1 ([facility]) 60 ACTUAT Fluticasone propionate 0.1 MG/ ACTUAT / salmeterol 0.05 MG/ACTUAT Dry Powder Inhaler [Advair] Advair Diskus 100-50 MCG/DOSE Advair Diskus 100-50 MCG/DOSE 02/21/2020 12:00:00 AM EST 1.0 {puff} activ e Advair Diskus 100-50 MCG/DOSE eCW1 ([facility]) 60 ACTUAT Fluticasone propionate 0.1 MG/ ACTUAT / salmeterol 0.05 MG/ACTUAT Dry Powder Inhaler [Advair] Advair Diskus 100-50 MCG/DOSE Advair Diskus 100-50 MCG/DOSE 02/21/2020 12:00:00 AM EST 1.0 {puff} activ e Advair Diskus 100-50 MCG/DOSE eCW1 ([facility]) 60 ACTUAT Fluticasone propionate 0.1 MG/ ACTUAT / salmeterol 0.05 MG/ACTUAT Dry Powder Inhaler [Advair] Advair Diskus 100-50 MCG/DOSE Advair Diskus 100-50 MCG/DOSE 02/21/2020 12:00:00 AM EST 1.0 {puff} activ e Advair Diskus 100-50 MCG/DOSE eCW1 ([facility]) Insulin, Aspart, Human 100 UNT/ML Inject able Solution [NovoLog] NovoLog 100 UNIT/ML NovoLog 100 UNIT/ML 02/04/2020 12:00:00 AM EST active NovoLog 100 UNIT/ML eCW1 ([facility]) Insulin, Aspart, Human 100 UNT/ML Inject able Solution [NovoLog] NovoLog 100 UNIT/ML NovoLog 100 UNIT/ML 02/04/2020 12:00:00 AM EST active NovoLog 100 UNIT/ML eCW1 ([facility]) Insulin, Aspart, Human 100 UNT/ML Inject able Solution [NovoLog] NovoLog 100 UNIT/ML NovoLog 100 UNIT/ML 02/04/2020 12:00:00 AM EST active NovoLog 100 UNIT/ML eCW1 ([facility]) Insulin, Aspart, Human 100 UNT/ML Inject able Solution [NovoLog] NovoLog 100 UNIT/ML NovoLog 100 UNIT/ML 02/04/2020 12:00:00 AM EST active NovoLog 100 UNIT/ML eCW1 ([facility]) Insulin, Aspart, Human 100 UNT/ML Inject able Solution [NovoLog] NovoLog 100 UNIT/ML NovoLog 100 UNIT/ML 02/04/2020 12:00:00 AM EST active NovoLog 100 UNIT/ML eCW1 ([facility]) Insulin, Aspart, Human 100 UNT/ML Inject able Solution [NovoLog] NovoLog 100 UNIT/ML NovoLog 100 UNIT/ML 02/04/2020 12:00:00 AM EST active NovoLog 100 UNIT/ML eCW1 ([facility]) Insulin, Aspart, Human 100 UNT/ML Inject able Solution [NovoLog] NovoLog 100 UNIT/ML NovoLog 100 UNIT/ML 02/04/2020 12:00:00 AM EST active NovoLog 100 UNIT/ML eCW1 ([facility]) Insulin, Aspart, Human 100 UNT/ML Inject able Solution [NovoLog] NovoLog 100 UNIT/ML NovoLog 100 UNIT/ML 02/04/2020 12:00:00 AM EST active NovoLog 100 UNIT/ML eCW1 ([facility]) Insulin, Aspart, Human 100 UNT/ML Inject able Solution [NovoLog] NovoLog 100 UNIT/ML NovoLog 100 UNIT/ML 02/04/2020 12:00:00 AM EST active NovoLog 100 UNIT/ML eCW1 ([facility]) Insulin, Aspart, Human 100 UNT/ML Inject able Solution [NovoLog] NovoLog 100 UNIT/ML NovoLog 100 UNIT/ML 02/04/2020 12:00:00 AM EST active NovoLog 100 UNIT/ML eCW1 ([facility]) Insulin, Aspart, Human 100 UNT/ML Inject able Solution [NovoLog] NovoLog 100 UNIT/ML NovoLog 100 UNIT/ML 02/04/2020 12:00:00 AM EST active NovoLog 100 UNIT/ML eCW1 ([facility]) Insulin, Aspart, Human 100 UNT/ML Inject able Solution [NovoLog] NovoLog 100 UNIT/ML NovoLog 100 UNIT/ML 02/04/2020 12:00:00 AM EST active NovoLog 100 UNIT/ML eCW1 ([facility]) Insulin, Aspart, Human 100 UNT/ML Inject able Solution [NovoLog] NovoLog 100 UNIT/ML NovoLog 100 UNIT/ML 02/04/2020 12:00:00 AM EST active NovoLog 100 UNIT/ML eCW1 ([facility]) Insulin, Aspart, Human 100 UNT/ML Inject able Solution [NovoLog] NovoLog 100 UNIT/ML NovoLog 100 UNIT/ML 02/04/2020 12:00:00 AM EST active NovoLog 100 UNIT/ML eCW1 ([facility]) Insulin, Aspart, Human 100 UNT/ML Inject able Solution [NovoLog] NovoLog 100 UNIT/ML NovoLog 100 UNIT/ML 02/04/2020 12:00:00 AM EST active NovoLog 100 UNIT/ML eCW1 ([facility]) Insulin, Aspart, Human 100 UNT/ML Inject able Solution [NovoLog] NovoLog 100 UNIT/ML NovoLog 100 UNIT/ML 02/04/2020 12:00:00 AM EST active NovoLog 100 UNIT/ML eCW1 ([facility]) Insulin, Aspart, Human 100 UNT/ML Inject able Solution [NovoLog] NovoLog 100 UNIT/ML NovoLog 100 UNIT/ML 02/04/2020 12:00:00 AM EST active NovoLog 100 UNIT/ML eCW1 ([facility]) Insulin, Aspart, Human 100 UNT/ML Inject able Solution [NovoLog] NovoLog 100 UNIT/ML NovoLog 100 UNIT/ML 02/04/2020 12:00:00 AM EST active NovoLog 100 UNIT/ML eCW1 ([facility]) Insulin, Aspart, Human 100 UNT/ML Inject able Solution [NovoLog] NovoLog 100 UNIT/ML NovoLog 100 UNIT/ML 02/04/2020 12:00:00 AM EST active NovoLog 100 UNIT/ML eCW1 ([facility]) pregabalin 200 MG Oral Capsule Pregabalin 01/17/2020 12:00:00 AM EST ORAL active [facility]ENT ([facility], ) duloxetine 60 MG Delayed Release Oral Capsule Duloxetine HCL 01/17/2020 12:00:00 AM EST ORAL active [facility] ([facility], ) pregabalin 200 MG Oral Capsule [Lyrica] Lyrica 200 MG Lyrica 200 MG 12/20/2019 12:00:00 AM EDT active Lyrica 2 00 MG eCW1 ([facility]) pregabalin 200 MG Oral Capsule [Lyrica] Lyrica 200 MG Lyrica 200 MG 12/20/2019 12:00:00 AM EDT active Lyrica 2 00 MG eCW1 ([facility]) pregabalin 200 MG Oral Capsule [Lyrica] Lyrica 200 MG Lyrica 200 MG 12/20/2019 12:00:00 AM EDT active Lyrica 2 00 MG eCW1 ([facility]) pregabalin 200 MG Oral Capsule [Lyrica] Lyrica 200 MG Lyrica 200 MG 12/20/2019 12:00:00 AM EDT active Lyrica 2 00 MG eCW1 ([facility]) pregabalin 200 MG Oral Capsule [Lyrica] Lyrica 200 MG Lyrica 200 MG 12/20/2019 12:00:00 AM EDT active Lyrica 2 00 MG eCW1 ([facility]) pregabalin 200 MG Oral Capsule [Lyrica] Lyrica 200 MG Lyrica 200 MG 12/20/2019 12:00:00 AM EDT active Lyrica 2 00 MG eCW1 ([facility]) pregabalin 200 MG Oral Capsule [Lyrica] Lyrica 200 MG Lyrica 200 MG 12/20/2019 12:00:00 AM EDT active Lyrica 2 00 MG eCW1 ([facility]) pregabalin 200 MG Oral Capsule [Lyrica] Lyrica 200 MG Lyrica 200 MG 12/20/2019 12:00:00 AM EDT active Lyrica 2 00 MG eCW1 ([facility]) pregabalin 200 MG Oral Capsule [Lyrica] Lyrica 200 MG Lyrica 200 MG 12/20/2019 12:00:00 AM EDT active Lyrica 2 00 MG eCW1 ([facility]) pregabalin 200 MG Oral Capsule [Lyrica] Lyrica 200 MG Lyrica 200 MG 12/20/2019 12:00:00 AM EDT active Lyrica 2 00 MG eCW1 ([facility]) pregabalin 200 MG Oral Capsule [Lyrica] Lyrica 200 MG Lyrica 200 MG 12/20/2019 12:00:00 AM EDT active Lyrica 2 00 MG eCW1 ([facility]) pregabalin 200 MG Oral Capsule [Lyrica] Lyrica 200 MG Lyrica 200 MG 12/20/2019 12:00:00 AM EDT active Lyrica 2 00 MG eCW1 ([facility]) pregabalin 200 MG Oral Capsule [Lyrica] Lyrica 200 MG Lyrica 200 MG 12/20/2019 12:00:00 AM EDT active Lyrica 2 00 MG eCW1 ([facility]) pregabalin 200 MG Oral Capsule [Lyrica] Lyrica 200 MG Lyrica 200 MG 12/20/2019 12:00:00 AM EDT active Lyrica 2 00 MG eCW1 ([facility]) pregabalin 200 MG Oral Capsule [Lyrica] Lyrica 200 MG Lyrica 200 MG 12/20/2019 12:00:00 AM EDT active Lyrica 2 00 MG eCW1 ([facility]) pregabalin 200 MG Oral Capsule [Lyrica] Lyrica 200 MG Lyrica 200 MG 12/20/2019 12:00:00 AM EDT active Lyrica 2 00 MG eCW1 ([facility]) pregabalin 200 MG Oral Capsule [Lyrica] Lyrica 200 MG Lyrica 200 MG 12/20/2019 12:00:00 AM EDT active Lyrica 2 00 MG eCW1 ([facility]) pregabalin 200 MG Oral Capsule [Lyrica] Lyrica 200 MG Lyrica 200 MG 12/20/2019 12:00:00 AM EDT active Lyrica 2 00 MG eCW1 ([facility]) pregabalin 200 MG Oral Capsule [Lyrica] Lyrica 200 MG Lyrica 200 MG 12/20/2019 12:00:00 AM EDT active Lyrica 2 00 MG eCW1 ([facility]) pregabalin 200 MG Oral Capsule [Lyrica] Lyrica 200 MG Lyrica 200 MG 12/20/2019 12:00:00 AM EDT active Lyrica 2 00 MG eCW1 ([facility]) pregabalin 200 MG Oral Capsule [Lyrica] Lyrica 200 MG Lyrica 200 MG 12/20/2019 12:00:00 AM EDT active Lyrica 2 00 MG eCW1 ([facility]) pregabalin 200 MG Oral Capsule [Lyrica] Lyrica 200 MG Lyrica 200 MG 12/20/2019 12:00:00 AM EDT active Lyrica 2 00 MG eCW1 ([facility]) pregabalin 200 MG Oral Capsule [Lyrica] Lyrica 200 MG Lyrica 200 MG 12/20/2019 12:00:00 AM EDT active Lyrica 2 00 MG eCW1 ([facility]) pregabalin 200 MG Oral Capsule [Lyrica] Lyrica 200 MG Lyrica 200 MG 12/20/2019 12:00:00 AM EDT active Lyrica 2 00 MG eCW1 ([facility]) pregabalin 200 MG Oral Capsule [Lyrica] Lyrica 200 MG Lyrica 200 MG 12/20/2019 12:00:00 AM EDT active Lyrica 2 00 MG eCW1 ([facility]) pregabalin 200 MG Oral Capsule [Lyrica] Lyrica 200 MG Lyrica 200 MG 12/20/2019 12:00:00 AM EDT active Lyrica 2 00 MG eCW1 ([facility]) pregabalin 200 MG Oral Capsule [Lyrica] Lyrica 200 MG Lyrica 200 MG 12/20/2019 12:00:00 AM EDT active Lyrica 2 00 MG eCW1 ([facility]) pregabalin 200 MG Oral Capsule [Lyrica] Lyrica 200 MG Lyrica 200 MG 12/20/2019 12:00:00 AM EDT active Lyrica 2 00 MG eCW1 ([facility]) pregabalin 200 MG Oral Capsule [Lyrica] Lyrica 200 MG Lyrica 200 MG 12/20/2019 12:00:00 AM EDT active Lyrica 2 00 MG eCW1 ([facility]) pregabalin 200 MG Oral Capsule [Lyrica] Lyrica 200 MG Lyrica 200 MG 12/20/2019 12:00:00 AM EDT active Lyrica 2 00 MG eCW1 ([facility]) pregabalin 200 MG Oral Capsule [Lyrica] Lyrica 200 MG Lyrica 200 MG 12/20/2019 12:00:00 AM EDT active Lyrica 2 00 MG eCW1 ([facility]) Acetaminophen 325 MG / Hydrocodone [place] trate 5 MG Oral Tablet Hydrocodone- Acetaminophen 5-325 MG Hydrocodone-Acetaminophen 5-325 MG 12/17/2019 12:00:00 AM EDT active Hydrocodone-Aceta minophen 5-325 MG eCW1 ([facility]) Acetaminophen 325 MG / Hydrocodone [place] trate 5 MG Oral Tablet Hydrocodone- Acetaminophen 5-325 MG Hydrocodone-Acetaminophen 5-325 MG 12/17/2019 12:00:00 AM EDT active Hydrocodone-Aceta minophen 5-325 MG eCW1 ([facility]) Acetaminophen 325 MG / Hydrocodone [place] trate 5 MG Oral Tablet Hydrocodone- Acetaminophen 5-325 MG Hydrocodone-Acetaminophen 5-325 MG 12/17/2019 12:00:00 AM EDT active Hydrocodone-Aceta minophen 5-325 MG eCW1 ([facility]) Acetaminophen 325 MG / Hydrocodone [place] trate 5 MG Oral Tablet Hydrocodone- Acetaminophen 5-325 MG Hydrocodone-Acetaminophen 5-325 MG 12/17/2019 12:00:00 AM EDT active Hydrocodone-Aceta minophen 5-325 MG eCW1 ([facility]) Acetaminophen 325 MG / Hydrocodone [place] trate 5 MG Oral Tablet Hydrocodone- Acetaminophen 5-325 MG Hydrocodone-Acetaminophen 5-325 MG 12/17/2019 12:00:00 AM EDT active Hydrocodone-Aceta minophen 5-325 MG eCW1 ([facility]) Acetaminophen 325 MG / Hydrocodone [place] trate 5 MG Oral Tablet Hydrocodone- Acetaminophen 5-325 MG Hydrocodone-Acetaminophen 5-325 MG 12/17/2019 12:00:00 AM EDT active Hydrocodone-Aceta minophen 5-325 MG eCW1 ([facility]) Acetaminophen 325 MG / Hydrocodone [place] trate 5 MG Oral Tablet Hydrocodone- Acetaminophen 5-325 MG Hydrocodone-Acetaminophen 5-325 MG 12/17/2019 12:00:00 AM EDT active Hydrocodone-Aceta minophen 5-325 MG eCW1 ([facility]) Acetaminophen 325 MG / Hydrocodone [place] trate 5 MG Oral Tablet Hydrocodone- Acetaminophen 5-325 MG Hydrocodone-Acetaminophen 5-325 MG 12/17/2019 12:00:00 AM EDT active Hydrocodone-Aceta minophen 5-325 MG eCW1 ([facility]) Acetaminophen 325 MG / Hydrocodone [place] trate 5 MG Oral Tablet Hydrocodone- Acetaminophen 5-325 MG Hydrocodone-Acetaminophen 5-325 MG 12/17/2019 12:00:00 AM EDT active Hydrocodone-Aceta minophen 5-325 MG eCW1 ([facility]) Acetaminophen 325 MG / Hydrocodone [place] trate 5 MG Oral Tablet Hydrocodone- Acetaminophen 5-325 MG Hydrocodone-Acetaminophen 5-325 MG 12/17/2019 12:00:00 AM EDT active Hydrocodone-Aceta minophen 5-325 MG eCW1 ([facility]) Acetaminophen 325 MG / Hydrocodone [place] trate 5 MG Oral Tablet Hydrocodone- Acetaminophen 5-325 MG Hydrocodone-Acetaminophen 5-325 MG 12/17/2019 12:00:00 AM EDT active Hydrocodone-Aceta minophen 5-325 MG eCW1 ([facility]) Acetaminophen 325 MG / Hydrocodone [place] trate 5 MG Oral Tablet Hydrocodone- Acetaminophen 5-325 MG Hydrocodone-Acetaminophen 5-325 MG 12/17/2019 12:00:00 AM EDT active Hydrocodone-Aceta minophen 5-325 MG eCW1 ([facility]) Acetaminophen 325 MG / Hydrocodone [place] trate 5 MG Oral Tablet Hydrocodone- Acetaminophen 5-325 MG Hydrocodone-Acetaminophen 5-325 MG 12/17/2019 12:00:00 AM EDT active Hydrocodone-Aceta minophen 5-325 MG eCW1 ([facility]) Acetaminophen 325 MG / Hydrocodone [place] trate 5 MG Oral Tablet Hydrocodone- Acetaminophen 5-325 MG Hydrocodone-Acetaminophen 5-325 MG 12/17/2019 12:00:00 AM EDT active Hydrocodone-Aceta minophen 5-325 MG eCW1 ([facility]) Acetaminophen 325 MG / Hydrocodone [place] trate 5 MG Oral Tablet Hydrocodone- Acetaminophen 5-325 MG Hydrocodone-Acetaminophen 5-325 MG 12/17/2019 12:00:00 AM EDT active Hydrocodone-Aceta minophen 5-325 MG eCW1 ([facility]) Acetaminophen 325 MG / Hydrocodone [place] trate 5 MG Oral Tablet Hydrocodone- Acetaminophen 5-325 MG Hydrocodone-Acetaminophen 5-325 MG 12/17/2019 12:00:00 AM EDT active Hydrocodone-Aceta minophen 5-325 MG eCW1 ([facility]) Acetaminophen 325 MG / Hydrocodone [place] trate 5 MG Oral Tablet Hydrocodone- Acetaminophen 5-325 MG Hydrocodone-Acetaminophen 5-325 MG 12/17/2019 12:00:00 AM EDT active Hydrocodone-Aceta minophen 5-325 MG eCW1 ([facility]) Acetaminophen 325 MG / Hydrocodone [place] trate 5 MG Oral Tablet Hydrocodone- Acetaminophen 5-325 MG Hydrocodone-Acetaminophen 5-325 MG 12/17/2019 12:00:00 AM EDT active Hydrocodone-Aceta minophen 5-325 MG eCW1 ([facility]) Acetaminophen 325 MG / Hydrocodone [place] trate 5 MG Oral Tablet Hydrocodone- Acetaminophen 5-325 MG Hydrocodone-Acetaminophen 5-325 MG 12/17/2019 12:00:00 AM EDT active Hydrocodone-Aceta minophen 5-325 MG eCW1 ([facility]) 3 ML Insulin, Aspart, Human 100 UNT/ML P en Injector [NovoLog] NovoLog Flexpen 100 UNIT/ML NovoLog Flexpen 100 UNIT/ML 09/11/2019 12:00:00 AM EDT active NovoLog Flexpen 100 UNIT/ML eCW1 ([facility]) 3 ML Insulin, Aspart, Human 100 UNT/ML P en Injector [NovoLog] NovoLog Flexpen 100 UNIT/ML NovoLog Flexpen 100 UNIT/ML 09/11/2019 12:00:00 AM EDT active NovoLog Flexpen 100 UNIT/ML eCW1 ([facility]) 3 ML Insulin, Aspart, Human 100 UNT/ML P en Injector [NovoLog] NovoLog Flexpen 100 UNIT/ML NovoLog Flexpen 100 UNIT/ML 09/11/2019 12:00:00 AM EDT active NovoLog Flexpen 100 UNIT/ML eCW1 ([facility]) 3 ML Insulin, Aspart, Human 100 UNT/ML P en Injector [NovoLog] NovoLog Flexpen 100 UNIT/ML NovoLog Flexpen 100 UNIT/ML 09/11/2019 12:00:00 AM EDT active NovoLog Flexpen 100 UNIT/ML eCW1 ([facility]) 3 ML Insulin, Aspart, Human 100 UNT/ML P en Injector [NovoLog] NovoLog Flexpen 100 UNIT/ML NovoLog Flexpen 100 UNIT/ML 09/11/2019 12:00:00 AM EDT active NovoLog Flexpen 100 UNIT/ML eCW1 ([facility]) 3 ML Insulin, Aspart, Human 100 UNT/ML P en Injector [NovoLog] NovoLog Flexpen 100 UNIT/ML NovoLog Flexpen 100 UNIT/ML 09/11/2019 12:00:00 AM EDT active NovoLog Flexpen 100 UNIT/ML eCW1 ([facility]) 3 ML Insulin, Aspart, Human 100 UNT/ML P en Injector [NovoLog] NovoLog Flexpen 100 UNIT/ML NovoLog Flexpen 100 UNIT/ML 09/11/2019 12:00:00 AM EDT active NovoLog Flexpen 100 UNIT/ML eCW1 ([facility]) 3 ML Insulin, Aspart, Human 100 UNT/ML P en Injector [NovoLog] NovoLog Flexpen 100 UNIT/ML NovoLog Flexpen 100 UNIT/ML 09/11/2019 12:00:00 AM EDT active NovoLog Flexpen 100 UNIT/ML eCW1 ([facility]) Cymbalta 60 MG UNK 09/09/2019 12:00:00 AM EDT active Cymbalta 60 MG eCW1 ([facility]) Cymbalta 60 MG UNK 09/09/2019 12:00:00 AM EDT active Cymbalta 60 MG eCW1 ([facility]) Cymbalta 60 MG UNK 09/09/2019 12:00:00 AM EDT active Cymbalta 60 MG eCW1 ([facility]) Cymbalta 60 MG UNK 09/09/2019 12:00:00 AM EDT active Cymbalta 60 MG eCW1 ([facility]) Cymbalta 60 MG UNK 09/09/2019 12:00:00 AM EDT active Cymbalta 60 MG eCW1 ([facility]) Cymbalta 60 MG UNK 09/09/2019 12:00:00 AM EDT active Cymbalta 60 MG eCW1 ([facility]) Cymbalta 60 MG UNK 09/09/2019 12:00:00 AM EDT active Cymbalta 60 MG eCW1 ([facility]) Cymbalta 60 MG UNK 09/09/2019 12:00:00 AM EDT active Cymbalta 60 MG eCW1 ([facility]) Cymbalta 60 MG UNK 09/09/2019 12:00:00 AM EDT active Cymbalta 60 MG eCW1 ([facility]) Cymbalta 60 MG UNK 09/09/2019 12:00:00 AM EDT active Cymbalta 60 MG eCW1 ([facility]) Cymbalta 60 MG UNK 09/09/2019 12:00:00 AM EDT active Cymbalta 60 MG eCW1 ([facility]) Cymbalta 60 MG UNK 09/09/2019 12:00:00 AM EDT active Cymbalta 60 MG eCW1 ([facility]) Cymbalta 60 MG UNK 09/09/2019 12:00:00 AM EDT active Cymbalta 60 MG eCW1 ([facility]) Cymbalta 60 MG UNK 09/09/2019 12:00:00 AM EDT active Cymbalta 60 MG eCW1 ([facility]) Cymbalta 60 MG UNK 09/09/2019 12:00:00 AM EDT active Cymbalta 60 MG eCW1 ([facility]) Cymbalta 60 MG UNK 09/09/2019 12:00:00 AM EDT active Cymbalta 60 MG eCW1 ([facility]) Cymbalta 60 MG UNK 09/09/2019 12:00:00 AM EDT active Cymbalta 60 MG eCW1 ([facility]) Cymbalta 60 MG UNK 09/09/2019 12:00:00 AM EDT active Cymbalta 60 MG eCW1 ([facility]) Cymbalta 60 MG UNK 09/09/2019 12:00:00 AM EDT active Cymbalta 60 MG eCW1 ([facility]) Cymbalta 60 MG UNK 09/09/2019 12:00:00 AM EDT active Cymbalta 60 MG eCW1 ([facility]) Cymbalta 60 MG UNK 09/09/2019 12:00:00 AM EDT active Cymbalta 60 MG eCW1 ([facility]) Cymbalta 60 MG UNK 09/09/2019 12:00:00 AM EDT active Cymbalta 60 MG eCW1 ([facility]) Cymbalta 60 MG UNK 09/09/2019 12:00:00 AM EDT active Cymbalta 60 MG eCW1 ([facility]) Cymbalta 60 MG UNK 09/09/2019 12:00:00 AM EDT active Cymbalta 60 MG eCW1 ([facility]) Cymbalta 60 MG UNK 09/09/2019 12:00:00 AM EDT active Cymbalta 60 MG eCW1 ([facility] [facility] Cymbalta 60 MG UNK 09/09/2019 12:00:00 AM EDT active Cymbalta 60 MG eCW1 ([facility]) Cymbalta 60 MG UNK 09/09/2019 12:00:00 AM EDT active Cymbalta 60 MG eCW1 ([facility]) Cymbalta 60 MG UNK 09/09/2019 12:00:00 AM EDT active Cymbalta 60 MG eCW1 ([facility]) Cymbalta 60 MG UNK 09/09/2019 12:00:00 AM EDT active Cymbalta 60 MG eCW1 ([facility]) Cymbalta 60 MG UNK 09/09/2019 12:00:00 AM EDT active Cymbalta 60 MG eCW1 ([facility]) Cymbalta 60 MG UNK 09/09/2019 12:00:00 AM EDT active Cymbalta 60 MG eCW1 ([facility]) Cymbalta 60 MG UNK 09/09/2019 12:00:00 AM EDT active Cymbalta 60 MG eCW1 ([facility]) Cymbalta 60 MG UNK 09/09/2019 12:00:00 AM EDT active Cymbalta 60 MG eCW1 ([facility]) Cymbalta 60 MG UNK 09/09/2019 12:00:00 AM EDT active Cymbalta 60 MG eCW1 ([facility]) Cymbalta 60 MG UNK 09/09/2019 12:00:00 AM EDT active Cymbalta 60 MG eCW1 ([facility]) Cymbalta 60 MG UNK 09/09/2019 12:00:00 AM EDT active Cymbalta 60 MG eCW1 ([facility]) Cymbalta 60 MG UNK 09/09/2019 12:00:00 AM EDT active Cymbalta 60 MG eCW1 ([facility]) Cymbalta 60 MG UNK 09/09/2019 12:00:00 AM EDT active Cymbalta 60 MG eCW1 ([facility]) normal saline flush 0.9 % injection 3 mL [id number] 08/27/2019 02:00:00 PM EDT 3 mL Intravenous active 3 mL , Intravenous, PROTOCOL, First dose on Mon08/27/19 at 1400, Pre-op
flush per protocol, D/C Main IV fluid if appropriate
[facility] Medication administered onsite sodium chloride 0.9% (NS) infusion 8242-9679-39 08/27/2019 10:00:00 A M EDT Intravenous active at 100 mL/hr, Intravenous, Continuous, Starting Mon08/27/19 at 1000, For 2 hours, Post-op [facility] Medication administered onsite Acetaminophen 325 MG Oral Tablet acetaminophen (TYLENO L) 325 MG tablet 650 mg acetaminophen (TYLENOL) 325 MG tablet 650 mg 08/27/2019 08:45:10 AM EDT 650 mg Oral active 650 mg, Or al, Every 4 hours PRN, headaches, and non cardiac pain, Starting Mon08/27/19 at 0845, Post-op
"Maximum dose of acetaminophen is 4,000 mg from all sources in 24 hours."
[facility] Medication administered onsite Nitroglycerin 0.4 MG Sublingual Tablet n itroglycerin (NITROSTAT) SL tablet 0.4 mg nitroglycerin (NITROSTAT) SL tablet 0.4 mg 08/27/2019 08:45:10 A M EDT 0.4 mg Sublingual active 0.4 mg, S ublingual, Every 5 min PRN, chest pain, Starting Mon08/27/19 at 0845, Post-op
May administer every 5 minutes for 3 doses and call cardio lab MD.
[facility] Medication administered onsite iopamidol (ISOVUE-370) 76 % [id number] 08/27/2019 08:23:38 AM EDT active As needed, Starting Mon08/27/19 at 0823, Intra-Procedu re [facility] Medication administered onsite NITROGLYCERIN 0.4 MG/ML IV SOLN [id number] 08/27/2019 08:18:05 AM EDT active As needed, Starting 08/26 at 0818, Intra-Procedure [facility] Medication administered onsite 1 ML heparin sodium, porcine 1000 UNT/ML Injection hep kait (porcine) injection heparin (porcine) injection 08/27/2019 08:16:53 AM EDT active As needed, Starting Mon08/27/19 at 0816, Intra-Procedure [facility] Medication administered onsite lidocaine 1 % injection [id number] 08/27/2019 08:16:05 AM EDT active As needed, Starting Mon08/27/19 at 0816, Intra-Procedure [facility] Medication administered onsite 2 ML Midazolam 1 MG/ML Injection midazolam (VERSED) in jection midazolam (VERSED) injection 08/27/2019 08:09:04 AM EDT active As needed, Starting Mon08/27/19 at 0809, Intra-Procedure [facility] Medication administered onsite fentaNYL Citrate (PF) (SUBLIMAZE) injection [id number] 08/27/2019 08:08:54 AM EDT active As neede d, Starting Mon08/27/19 at 0808, Intra-Procedure [facility] Medication administered onsite sodium chloride 0.9% (NS) infusion 3094-4729-93 08/27/2019 07:00:00 AM EDT 100 mL/h Intravenous active at 100 m L/hr, 100 mL/hr, Intravenous, Continuous, Starting Mon08/27/19 at 0700, Pre-op
Start two hours prior to scheduled start time
[facility] Medication administered onsite Diphenhydramine Hydrochloride 50 MG Oral Capsule diphenhydrAMINE (BENADRYL) capsule 50 mg diphenhydrAMINE (BENADRYL) capsule 50 mg 08/27/2019 07 :00:00 AM EDT 50 mg Oral completed 50 mg, Oral, scallop cutter, Mon08/27/19 at 0700, For 1 dose, Pre-op [facility] Medication administered onsite normal saline flush 0.9 % injection 3 mL [id number] 08/27/2019 07:00:00 AM EDT 3 mL Intravenous active 3 mL , Intravenous, Every 8 hours (scheduled), First dose on Mon08/27/19 at 0700, Pre-op
Rapid push positive pressure flushing shall be performed with a 10 cc normal saline syringe to check the PATENCY of a PIV site prior to any infusion therapy initiation unless resistance is met.
[facility] Medication administered onsite apixaban 5 MG Oral Tablet [Eliquis] Eliquis 08/26/2019 12:00:00 AM E DT ORAL active [facility] ([facility]) 24 HR Isosorbide Mononitrate 30 MG Exten ded Release Oral Tablet isosorbide mononitrate (IMDUR) 30 MG 24 hr tablet isosorbide mononitrate (IMDUR) 30 MG 24 hr tablet 08/23/2019 12:00:00 AM EDT active Take 1 tablet daily two days prior to procedure [facility] Aspirin 81 MG Delayed Release Oral Tablet Aspirin Ec 2019 12:00:00 AM EDT ORAL active [facility] ( [facility]) clopidogrel 75 MG Oral Tablet Clopidogrel Bisulfate 08/13/2019 1 2:00:00 AM EDT ORAL active [facility] ( [facility]) icosapent ethyl 1000 MG Oral Capsule [Vascepa] Vascepa 08/13/2019 12:00:00 AM EDT ORAL active [facility] ([facility]) Fenofibrate 160 MG Oral Tablet Fenofibrate 2019 12:00:00 AM EDT ORAL completed [facility] ([facility]) Docusate Sodium 100 MG Oral Capsule [Colace] Colace 03/2019 12:00:00 AM EDT ORAL active [facility] ( [facility]) Omeprazole 40 MG Delayed Release Oral Capsule Omeprazole 2019 12:00:00 AM EDT ORAL active [facility] ([facility]) Cholecalciferol 2000 UNT Oral Capsule Vitamin D3 Super Stren gth 2019 12:00:00 AM EDT ORAL active M EDENT ([facility]) Chlorthalidone 25 MG Oral Tablet Chlorthalidone 2019 12:00:00 A M EDT ORAL active [facility] ([facility]) valsartan 80 MG Oral Tablet Valsartan 2019 12:00:00 AM EDT ORAL active [facility] ([facility]) pregabalin 150 MG Oral Capsule [Lyrica] Lyrica 2019 12:00:0 0 AM EDT ORAL active [facility] ([facility]) Albuterol 0.83 MG/ML Inhalant Solution Albuterol Sulfate 0 2019 12:00:00 AM EDT active [facility] ([facility]) duloxetine 60 MG Delayed Release Oral Capsule [Cymbalta] Cym nena 2019 12:00:00 AM EDT ORAL active M EDENT ([facility]) [facility] - [facility] - 08/09/2019 12:00:00 AM EDT active [facility] - eC ([facility]) [facility] - [facility] - 08/09/2019 12:00:00 AM EDT active [facility] [facility] eCW ([facility]) [facility] - [facility] - 08/09/2019 12:00:00 AM EDT active [facility] eCW ([facility]) [facility] - [facility] - 08/09/2019 12:00:00 AM EDT active [facility] eCW ([facility]) [facility] - [facility] - 08/09/2019 12:00:00 AM EDT active [facility] - eCW1 ([facility]) [facility] - [facility] - 08/09/2019 12:00:00 AM EDT active [facility] - eCW1 ([facility]) [facility] - [facility] - 08/09/2019 12:00:00 AM EDT active [facility] - eCW1 ([facility]) [facility] - [facility] - 08/09/2019 12:00:00 AM EDT active [facility] - eCW1 ([facility]) [facility] - [facility] - 08/09/2019 12:00:00 AM EDT active [facility] - eCW1 ([facility]) [facility] - [facility] - 08/09/2019 12:00:00 AM EDT active [facility] - eCW1 ([facility]) [facility] - [facility] - 08/09/2019 12:00:00 AM EDT active [facility] - eCW1 ([facility]) [facility] - [facility] - 08/09/2019 12:00:00 AM EDT active [facility] - eCW1 ([facility]) POLYETHYLENE GLYCOL 3350 105 MG/ML / Pot assium Chloride 0.92511 MEQ/ML / Sodium Bicarbonate 0.017 MEQ/ML / Sodium Chloride 0.0479 MEQ/ML Oral Solution [TriLyte] Trilyte 08/09/2019 12:00:00 AM EDT active [facility] ([facility] ) Magnesium Hydroxide 80 MG/ML Oral Suspension Milk Of Magnesi a 08/09/2019 12:00:00 AM EDT ORAL active M EDENT ([facility] ) [facility] - [facility] - 08/09/2019 12:00:00 AM EDT active [facility] - eCW1 ([facility]) [facility] - [facility] - 08/09/2019 12:00:00 AM EDT active [facility] - eCW1 ([facility]) [facility] - [facility] - 08/09/2019 12:00:00 AM EDT active [facility] - eCW1 ([facility]) [facility] - [facility] - 08/09/2019 12:00:00 AM EDT active [facility] - eCW1 ([facility]) [facility] - [facility] - 08/09/2019 12:00:00 AM EDT active [facility] - eCW1 ([facility]) [facility] - [facility] - 08/09/2019 12:00:00 AM EDT active [facility] - eCW1 ([facility]) [facility] - [facility] - 08/09/2019 12:00:00 AM EDT active [facility] - eCW1 ([facility]) [facility] - [facility] - 08/09/2019 12:00:00 AM EDT active [facility] - eCW1 ([facility]) [facility] - [facility] - 08/09/2019 12:00:00 AM EDT active [facility] - eCW1 ([facility]) [facility] - [facility] - 08/09/2019 12:00:00 AM EDT active [facility] - eCW1 ([facility]) [facility] - [facility] - 08/09/2019 12:00:00 AM EDT active [facility] - eCW1 ([facility]) [facility] - [facility] - 08/09/2019 12:00:00 AM EDT active [facility] - eCW1 ([facility]) [facility] - [facility] - 08/09/2019 12:00:00 AM EDT active [facility] - eCW1 ([facility]) [facility] - [facility] - 08/09/2019 12:00:00 AM EDT active [facility] - eCW1 ([facility]) [facility] - [facility] - 08/09/2019 12:00:00 AM EDT active [facility] - eCW1 ([facility]) [facility] - [facility] - 08/09/2019 12:00:00 AM EDT active [facility] - eCW1 ([facility]) [facility] - [facility] - 08/09/2019 12:00:00 AM EDT active [facility] - eCW1 ([facility]) [facility] - [facility] - 08/09/2019 12:00:00 AM EDT active [facility] - eCW1 ([facility]) [facility] - [facility] - 08/09/2019 12:00:00 AM EDT active [facility] - eCW1 ([facility]) [facility] - [facility] - 08/09/2019 12:00:00 AM EDT active [facility] - eCW1 ([facility]) [facility] - [facility] - 08/09/2019 12:00:00 AM EDT active [facility] - eCW1 ([facility]) [facility] - [facility] - 08/09/2019 12:00:00 AM EDT active [facility] - eCW1 ([facility]) [facility] - [facility] - 08/09/2019 12:00:00 AM EDT active [facility] - eCW1 ([facility]) [facility] - [facility] - 08/09/2019 12:00:00 AM EDT active [facility] - eCW1 ([facility]) [facility] - [facility] - 08/09/2019 12:00:00 AM EDT active [facility] - eCW1 ([facility]) [facility] - [facility] - 08/09/2019 12:00:00 AM EDT active 1 tab eCW1 ([facility]) [facility] - [facility] - 08/09/2019 12:00:00 AM EDT active [facility] - eCW1 ([facility]) [facility] - [facility] - 08/09/2019 12:00:00 AM EDT active [facility] - eCW1 ([facility]) 200 ACTUAT Albuterol 0.09 MG/ACTUAT Mete red Dose Inhaler [ProAir] ProAir HFA 108 (90 Base) MCG/ACT ProAir HFA 108 (90 Base) MCG/ACT 08/07/2019 12:00:00 AM EDT 2.0 {puff_as_needed} active Pro Air HFA 108 (90 Base) MCG/ACT eCW1 ([facility]) 200 ACTUAT Albuterol 0.09 MG/ACTUAT Mete red Dose Inhaler [ProAir] ProAir HFA 108 (90 Base) MCG/ACT ProAir HFA 108 (90 Base) MCG/ACT 08/07/2019 12:00:00 AM EDT 2.0 {puff_as_needed} active Pro Air HFA 108 (90 Base) MCG/ACT eCW1 ([facility]) 200 ACTUAT Albuterol 0.09 MG/ACTUAT Mete red Dose Inhaler [ProAir] ProAir HFA 108 (90 Base) MCG/ACT ProAir HFA 108 (90 Base) MCG/ACT 08/07/2019 12:00:00 AM EDT 2.0 {puff_as_needed} active Pro Air HFA 108 (90 Base) MCG/ACT eCW1 ([facility]) 200 ACTUAT Albuterol 0.09 MG/ACTUAT Mete red Dose Inhaler [ProAir] ProAir HFA 108 (90 Base) MCG/ACT ProAir HFA 108 (90 Base) MCG/ACT 08/07/2019 12:00:00 AM EDT 2.0 {puff_as_needed} active Pro Air HFA 108 (90 Base) MCG/ACT eCW1 ([facility]) valsartan 80 MG Oral Tablet Valsartan 80 MG Valsartan 80 MG 08/07/2019 12:00:00 AM EDT active Valsartan 80 MG e CW1 ([facility]) 200 ACTUAT Albuterol 0.09 MG/ACTUAT Mete red Dose Inhaler [ProAir] ProAir HFA 108 (90 Base) MCG/ACT ProAir HFA 108 (90 Base) MCG/ACT 08/07/2019 12:00:00 AM EDT 2.0 {puff_as_needed} active Pro Air HFA 108 (90 Base) MCG/ACT eCW1 ([facility]) 200 ACTUAT Albuterol 0.09 MG/ACTUAT Mete red Dose Inhaler [ProAir] ProAir HFA 108 (90 Base) MCG/ACT ProAir HFA 108 (90 Base) MCG/ACT 08/07/2019 12:00:00 AM EDT 2.0 {puff_as_needed} active Pro Air HFA 108 (90 Base) MCG/ACT eCW1 ([facility]) 200 ACTUAT Albuterol 0.09 MG/ACTUAT Mete red Dose Inhaler [ProAir] ProAir HFA 108 (90 Base) MCG/ACT ProAir HFA 108 (90 Base) MCG/ACT 08/07/2019 12:00:00 AM EDT 2.0 {puff_as_needed} active Pro Air HFA 108 (90 Base) MCG/ACT eCW1 ([facility]) BD AutoShield Duo 30G X 5 MM BD AutoShield Duo 30G X 5 MM 12:00:00 AM EDT active BD AutoShield Duo 30G X 5 MM eCW1 ([facility]) 200 ACTUAT Albuterol 0.09 MG/ACTUAT Mete red Dose Inhaler [ProAir] ProAir HFA 108 (90 Base) MCG/ACT ProAir HFA 108 (90 Base) MCG/ACT 08/07/2019 12:00:00 AM EDT 2.0 {puff_as_needed} active Pro Air HFA 108 (90 Base) MCG/ACT eCW1 ([facility]) BD AutoShield Duo 30G X 5 MM BD AutoShield Duo 30G X 5 MM 12:00:00 AM EDT active BD AutoShield Duo 30G X 5 MM eCW1 ([facility]) BD AutoShield Duo 30G X 5 MM BD AutoShield Duo 30G X 5 MM 12:00:00 AM EDT active BD AutoShield Duo 30G X 5 MM eCW1 ([facility]) BD AutoShield Duo 30G X 5 MM BD AutoShield Duo 30G X 5 MM 12:00:00 AM EDT active BD AutoShield Duo 30G X 5 MM eCW1 ([facility]) 200 ACTUAT Albuterol 0.09 MG/ACTUAT Mete red Dose Inhaler [ProAir] ProAir HFA 108 (90 Base) MCG/ACT ProAir HFA 108 (90 Base) MCG/ACT 08/07/2019 12:00:00 AM EDT 2.0 {puff_as_needed} active Pro Air HFA 108 (90 Base) MCG/ACT eCW1 ([facility]) 200 ACTUAT Albuterol 0.09 MG/ACTUAT Mete red Dose Inhaler [ProAir] ProAir HFA 108 (90 Base) MCG/ACT ProAir HFA 108 (90 Base) MCG/ACT 08/07/2019 12:00:00 AM EDT 2.0 {puff_as_needed} active Pro Air HFA 108 (90 Base) MCG/ACT eCW1 ([facility]) BD AutoShield Duo 30G X 5 MM BD AutoShield Duo 30G X 5 MM 12:00:00 AM EDT active BD AutoShield Duo 30G X 5 MM eCW1 ([facility]) BD AutoShield Duo 30G X 5 MM BD AutoShield Duo 30G X 5 MM 12:00:00 AM EDT active BD AutoShield Duo 30G X 5 MM eCW1 ([facility]) 200 ACTUAT Albuterol 0.09 MG/ACTUAT Mete red Dose Inhaler [ProAir] ProAir HFA 108 (90 Base) MCG/ACT ProAir HFA 108 (90 Base) MCG/ACT 08/07/2019 12:00:00 AM EDT 2.0 {puff_as_needed} active Pro Air HFA 108 (90 Base) MCG/ACT eCW1 ([facility]) valsartan 80 MG Oral Tablet Valsartan 80 MG Valsartan 80 MG 08/07/2019 12:00:00 AM EDT active Valsartan 80 MG e CW1 ([facility]) valsartan 80 MG Oral Tablet Valsartan 80 MG Valsartan 80 MG 08/07/2019 12:00:00 AM EDT active Valsartan 80 MG e CW1 ([facility]) BD AutoShield Duo 30G X 5 MM BD AutoShield Duo 30G X 5 MM 12:00:00 AM EDT active BD AutoShield Duo 30G X 5 MM eCW1 ([facility]) 200 ACTUAT Albuterol 0.09 MG/ACTUAT Mete red Dose Inhaler [ProAir] ProAir HFA 108 (90 Base) MCG/ACT ProAir HFA 108 (90 Base) MCG/ACT 08/07/2019 12:00:00 AM EDT 2.0 {puff_as_needed} active Pro Air HFA 108 (90 Base) MCG/ACT eCW1 ([facility]) valsartan 80 MG Oral Tablet Valsartan 80 MG Valsartan 80 MG 08/07/2019 12:00:00 AM EDT active Valsartan 80 MG e CW1 ([facility]) 200 ACTUAT Albuterol 0.09 MG/ACTUAT Mete red Dose Inhaler [ProAir] ProAir HFA 108 (90 Base) MCG/ACT ProAir HFA 108 (90 Base) MCG/ACT 08/07/2019 12:00:00 AM EDT 2.0 {puff_as_needed} active Pro Air HFA 108 (90 Base) MCG/ACT eCW1 ([facility]) BD AutoShield Duo 30G X 5 MM BD AutoShield Duo 30G X 5 MM 12:00:00 AM EDT active BD AutoShield Duo 30G X 5 MM eCW1 ([facility]) BD AutoShield Duo 30G X 5 MM BD AutoShield Duo 30G X 5 MM 12:00:00 AM EDT active BD AutoShield Duo 30G X 5 MM eCW1 ([facility]) BD AutoShield Duo 30G X 5 MM BD AutoShield Duo 30G X 5 MM 12:00:00 AM EDT active BD AutoShield Duo 30G X 5 MM eCW1 ([facility]) BD AutoShield Duo 30G X 5 MM BD AutoShield Duo 30G X 5 MM 12:00:00 AM EDT active BD AutoShield Duo 30G X 5 MM eCW1 ([facility]) 200 ACTUAT Albuterol 0.09 MG/ACTUAT Mete red Dose Inhaler [ProAir] ProAir HFA 108 (90 Base) MCG/ACT ProAir HFA 108 (90 Base) MCG/ACT 08/07/2019 12:00:00 AM EDT 2.0 {puff_as_needed} active Pro Air HFA 108 (90 Base) MCG/ACT eCW1 ([facility]) 200 ACTUAT Albuterol 0.09 MG/ACTUAT Mete red Dose Inhaler [ProAir] ProAir HFA 108 (90 Base) MCG/ACT ProAir HFA 108 (90 Base) MCG/ACT 08/07/2019 12:00:00 AM EDT 2.0 {puff_as_needed} active Pro Air HFA 108 (90 Base) MCG/ACT eCW1 ([facility]) BD AutoShield Duo 30G X 5 MM BD AutoShield Duo 30G X 5 MM 12:00:00 AM EDT active BD AutoShield Duo 30G X 5 MM eCW1 ([facility]) 200 ACTUAT Albuterol 0.09 MG/ACTUAT Mete red Dose Inhaler [ProAir] ProAir HFA 108 (90 Base) MCG/ACT ProAir HFA 108 (90 Base) MCG/ACT 08/07/2019 12:00:00 AM EDT 2.0 {puff_as_needed} active Pro Air HFA 108 (90 Base) MCG/ACT eCW1 ([facility]) 200 ACTUAT Albuterol 0.09 MG/ACTUAT Mete red Dose Inhaler [ProAir] ProAir HFA 108 (90 Base) MCG/ACT ProAir HFA 108 (90 Base) MCG/ACT 08/07/2019 12:00:00 AM EDT 2.0 {puff_as_needed} active Pro Air HFA 108 (90 Base) MCG/ACT eCW1 ([facility]) BD AutoShield Duo 30G X 5 MM BD AutoShield Duo 30G X 5 MM 12:00:00 AM EDT active BD AutoShield Duo 30G X 5 MM eCW1 ([facility]) 200 ACTUAT Albuterol 0.09 MG/ACTUAT Mete red Dose Inhaler [ProAir] ProAir HFA 108 (90 Base) MCG/ACT ProAir HFA 108 (90 Base) MCG/ACT 08/07/2019 12:00:00 AM EDT 2.0 {puff_as_needed} active Pro Air HFA 108 (90 Base) MCG/ACT eCW1 ([facility]) BD AutoShield Duo 30G X 5 MM BD AutoShield Duo 30G X 5 MM 12:00:00 AM EDT active BD AutoShield Duo 30G X 5 MM eCW1 ([facility]) valsartan 80 MG Oral Tablet Valsartan 80 MG Valsartan 80 MG 08/07/2019 12:00:00 AM EDT active Valsartan 80 MG e CW1 ([facility]) 200 ACTUAT Albuterol 0.09 MG/ACTUAT Mete red Dose Inhaler [ProAir] ProAir HFA 108 (90 Base) MCG/ACT ProAir HFA 108 (90 Base) MCG/ACT 08/07/2019 12:00:00 AM EDT 2.0 {puff_as_needed} active Pro Air HFA 108 (90 Base) MCG/ACT eCW1 ([facility]) 200 ACTUAT Albuterol 0.09 MG/ACTUAT Mete red Dose Inhaler [ProAir] ProAir HFA 108 (90 Base) MCG/ACT ProAir HFA 108 (90 Base) MCG/ACT 08/07/2019 12:00:00 AM EDT 2.0 {puff_as_needed} active Pro Air HFA 108 (90 Base) MCG/ACT eCW1 ([facility]) 200 ACTUAT Albuterol 0.09 MG/ACTUAT Mete red Dose Inhaler [ProAir] ProAir HFA 108 (90 Base) MCG/ACT ProAir HFA 108 (90 Base) MCG/ACT 08/07/2019 12:00:00 AM EDT 2.0 {puff_as_needed} active Pro Air HFA 108 (90 Base) MCG/ACT eCW1 ([facility]) valsartan 80 MG Oral Tablet Valsartan 80 MG Valsartan 80 MG 08/07/2019 12:00:00 AM EDT active Valsartan 80 MG e CW1 ([facility]) BD AutoShield Duo 30G X 5 MM BD AutoShield Duo 30G X 5 MM 12:00:00 AM EDT active BD AutoShield Duo 30G X 5 MM eCW1 ([facility]) 200 ACTUAT Albuterol 0.09 MG/ACTUAT Mete red Dose Inhaler [ProAir] ProAir HFA 108 (90 Base) MCG/ACT ProAir HFA 108 (90 Base) MCG/ACT 08/07/2019 12:00:00 AM EDT 2.0 {puff_as_needed} active Pro Air HFA 108 (90 Base) MCG/ACT eCW1 ([facility]) valsartan 80 MG Oral Tablet Valsartan 80 MG Valsartan 80 MG 08/07/2019 12:00:00 AM EDT active Valsartan 80 MG e CW1 ([facility]) 200 ACTUAT Albuterol 0.09 MG/ACTUAT Mete red Dose Inhaler [ProAir] ProAir HFA 108 (90 Base) MCG/ACT ProAir HFA 108 (90 Base) MCG/ACT 08/07/2019 12:00:00 AM EDT 2.0 {puff_as_needed} active Pro Air HFA 108 (90 Base) MCG/ACT eCW1 ([facility]) 200 ACTUAT Albuterol 0.09 MG/ACTUAT Mete red Dose Inhaler [ProAir] ProAir HFA 108 (90 Base) MCG/ACT ProAir HFA 108 (90 Base) MCG/ACT 08/07/2019 12:00:00 AM EDT 2.0 {puff_as_needed} active Pro Air HFA 108 (90 Base) MCG/ACT eCW1 ([facility]) 200 ACTUAT Albuterol 0.09 MG/ACTUAT Mete red Dose Inhaler [ProAir] ProAir HFA 108 (90 Base) MCG/ACT ProAir HFA 108 (90 Base) MCG/ACT 08/07/2019 12:00:00 AM EDT 2.0 {puff_as_needed} active Pro Air HFA 108 (90 Base) MCG/ACT eCW1 ([facility]) valsartan 80 MG Oral Tablet Valsartan 80 MG Valsartan 80 MG 08/07/2019 12:00:00 AM EDT active Valsartan 80 MG e CW1 ([facility]) 200 ACTUAT Albuterol 0.09 MG/ACTUAT Mete red Dose Inhaler [ProAir] ProAir HFA 108 (90 Base) MCG/ACT ProAir HFA 108 (90 Base) MCG/ACT 08/07/2019 12:00:00 AM EDT 2.0 {puff_as_needed} active Pro Air HFA 108 (90 Base) MCG/ACT eCW1 ([facility]) 200 ACTUAT Albuterol 0.09 MG/ACTUAT Mete red Dose Inhaler [ProAir] ProAir HFA 108 (90 Base) MCG/ACT ProAir HFA 108 (90 Base) MCG/ACT 08/07/2019 12:00:00 AM EDT 2.0 {puff_as_needed} active Pro Air HFA 108 (90 Base) MCG/ACT eCW1 ([facility]) 200 ACTUAT Albuterol 0.09 MG/ACTUAT Mete red Dose Inhaler [ProAir] ProAir HFA 108 (90 Base) MCG/ACT ProAir HFA 108 (90 Base) MCG/ACT 08/07/2019 12:00:00 AM EDT 2.0 {puff_as_needed} active Pro Air HFA 108 (90 Base) MCG/ACT eCW1 ([facility]) valsartan 80 MG Oral Tablet Valsartan 80 MG Valsartan 80 MG 08/07/2019 12:00:00 AM EDT active Valsartan 80 MG e CW1 ([facility]) BD AutoShield Duo 30G X 5 MM BD AutoShield Duo 30G X 5 MM 12:00:00 AM EDT active BD AutoShield Duo 30G X 5 MM eCW1 ([facility]) 200 ACTUAT Albuterol 0.09 MG/ACTUAT Mete red Dose Inhaler [ProAir] ProAir HFA 108 (90 Base) MCG/ACT ProAir HFA 108 (90 Base) MCG/ACT 08/07/2019 12:00:00 AM EDT 2.0 {puff_as_needed} active Pro Air HFA 108 (90 Base) MCG/ACT eCW1 ([facility]) BD AutoShield Duo 30G X 5 MM BD AutoShield Duo 30G X 5 MM 12:00:00 AM EDT active BD AutoShield Duo 30G X 5 MM eCW1 ([facility]) 200 ACTUAT Albuterol 0.09 MG/ACTUAT Mete red Dose Inhaler [ProAir] ProAir HFA 108 (90 Base) MCG/ACT ProAir HFA 108 (90 Base) MCG/ACT 08/07/2019 12:00:00 AM EDT 2.0 {puff_as_needed} active Pro Air HFA 108 (90 Base) MCG/ACT eCW1 ([facility]) 200 ACTUAT Albuterol 0.09 MG/ACTUAT Mete red Dose Inhaler [ProAir] ProAir HFA 108 (90 Base) MCG/ACT ProAir HFA 108 (90 Base) MCG/ACT 08/07/2019 12:00:00 AM EDT 2.0 {puff_as_needed} active Pro Air HFA 108 (90 Base) MCG/ACT eCW1 ([facility]) BD AutoShield Duo 30G X 5 MM BD AutoShield Duo 30G X 5 MM 12:00:00 AM EDT active BD AutoShield Duo 30G X 5 MM eCW1 ([facility]) BD AutoShield Duo 30G X 5 MM BD AutoShield Duo 30G X 5 MM 12:00:00 AM EDT active BD AutoShield Duo 30G X 5 MM eCW1 ([facility]) BD AutoShield Duo 30G X 5 MM BD AutoShield Duo 30G X 5 MM 12:00:00 AM EDT active BD AutoShield Duo 30G X 5 MM eCW1 ([facility]) BD AutoShield Duo 30G X 5 MM BD AutoShield Duo 30G X 5 MM 12:00:00 AM EDT active BD AutoShield Duo 30G X 5 MM eCW1 ([facility]) BD AutoShield Duo 30G X 5 MM BD AutoShield Duo 30G X 5 MM 12:00:00 AM EDT active BD AutoShield Duo 30G X 5 MM eCW1 ([facility]) 200 ACTUAT Albuterol 0.09 MG/ACTUAT Mete red Dose Inhaler [ProAir] ProAir HFA 108 (90 Base) MCG/ACT ProAir HFA 108 (90 Base) MCG/ACT 08/07/2019 12:00:00 AM EDT 2.0 {puff_as_needed} active Pro Air HFA 108 (90 Base) MCG/ACT eCW1 ([facility]) BD AutoShield Duo 30G X 5 MM BD AutoShield Duo 30G X 5 MM 12:00:00 AM EDT active BD AutoShield Duo 30G X 5 MM eCW1 ([facility]) BD AutoShield Duo 30G X 5 MM BD AutoShield Duo 30G X 5 MM 12:00:00 AM EDT active BD AutoShield Duo 30G X 5 MM eCW1 ([facility]) valsartan 80 MG Oral Tablet Valsartan 80 MG Valsartan 80 MG 08/07/2019 12:00:00 AM EDT active 1/ 2 tab eCW1 ([facility]) BD AutoShield Duo 30G X 5 MM BD AutoShield Duo 30G X 5 MM 12:00:00 AM EDT active BD AutoShield Duo 30G X 5 MM eCW1 ([facility]) BD AutoShield Duo 30G X 5 MM BD AutoShield Duo 30G X 5 MM 12:00:00 AM EDT active BD AutoShield Duo 30G X 5 MM eCW1 ([facility]) 200 ACTUAT Albuterol 0.09 MG/ACTUAT Mete red Dose Inhaler [ProAir] ProAir HFA 108 (90 Base) MCG/ACT ProAir HFA 108 (90 Base) MCG/ACT 08/07/2019 12:00:00 AM EDT 2.0 {puff_as_needed} active Pro Air HFA 108 (90 Base) MCG/ACT eCW1 ([facility]) valsartan 80 MG Oral Tablet Valsartan 80 MG Valsartan 80 MG 08/07/2019 12:00:00 AM EDT active Valsartan 80 MG e CW1 ([facility]) BD AutoShield Duo 30G X 5 MM BD AutoShield Duo 30G X 5 MM 12:00:00 AM EDT active BD AutoShield Duo 30G X 5 MM eCW1 ([facility]) 200 ACTUAT Albuterol 0.09 MG/ACTUAT Mete red Dose Inhaler [ProAir] ProAir HFA 108 (90 Base) MCG/ACT ProAir HFA 108 (90 Base) MCG/ACT 08/07/2019 12:00:00 AM EDT 2.0 {puff_as_needed} active Pro Air HFA 108 (90 Base) MCG/ACT eCW1 ([facility]) BD AutoShield Duo 30G X 5 MM BD AutoShield Duo 30G X 5 MM 12:00:00 AM EDT active BD AutoShield Duo 30G X 5 MM eCW1 ([facility]) 200 ACTUAT Albuterol 0.09 MG/ACTUAT Mete red Dose Inhaler [ProAir] ProAir HFA 108 (90 Base) MCG/ACT ProAir HFA 108 (90 Base) MCG/ACT 08/07/2019 12:00:00 AM EDT 2.0 {puff_as_needed} active Pro Air HFA 108 (90 Base) MCG/ACT eCW1 ([facility]) 200 ACTUAT Albuterol 0.09 MG/ACTUAT Mete red Dose Inhaler [ProAir] ProAir HFA 108 (90 Base) MCG/ACT ProAir HFA 108 (90 Base) MCG/ACT 08/07/2019 12:00:00 AM EDT 2.0 {puff_as_needed} active Pro Air HFA 108 (90 Base) MCG/ACT eCW1 ([facility]) BD AutoShield Duo 30G X 5 MM BD AutoShield Duo 30G X 5 MM 12:00:00 AM EDT active BD AutoShield Duo 30G X 5 MM eCW1 ([facility]) BD AutoShield Duo 30G X 5 MM BD AutoShield Duo 30G X 5 MM 12:00:00 AM EDT active BD AutoShield Duo 30G X 5 MM eCW1 ([facility]) BD AutoShield Duo 30G X 5 MM BD AutoShield Duo 30G X 5 MM 12:00:00 AM EDT active BD AutoShield Duo 30G X 5 MM eCW1 ([facility]) BD AutoShield Duo 30G X 5 MM BD AutoShield Duo 30G X 5 MM 12:00:00 AM EDT active BD AutoShield Duo 30G X 5 MM eCW1 ([facility]) BD AutoShield Duo 30G X 5 MM BD AutoShield Duo 30G X 5 MM 12:00:00 AM EDT active BD AutoShield Duo 30G X 5 MM eCW1 ([facility]) 200 ACTUAT Albuterol 0.09 MG/ACTUAT Mete red Dose Inhaler [ProAir] ProAir HFA 108 (90 Base) MCG/ACT ProAir HFA 108 (90 Base) MCG/ACT 08/07/2019 12:00:00 AM EDT 2.0 {puff_as_needed} active Pro Air HFA 108 (90 Base) MCG/ACT eCW1 ([facility]) BD AutoShield Duo 30G X 5 MM BD AutoShield Duo 30G X 5 MM 12:00:00 AM EDT active BD AutoShield Duo 30G X 5 MM eCW1 ([facility]) BD AutoShield Duo 30G X 5 MM BD AutoShield Duo 30G X 5 MM 12:00:00 AM EDT active BD AutoShield Duo 30G X 5 MM eCW1 ([facility]) BD AutoShield Duo 30G X 5 MM BD AutoShield Duo 30G X 5 MM 12:00:00 AM EDT active BD AutoShield Duo 30G X 5 MM eCW1 ([facility]) BD AutoShield Duo 30G X 5 MM BD AutoShield Duo 30G X 5 MM 12:00:00 AM EDT active BD AutoShield Duo 30G X 5 MM eCW1 ([facility]) 200 ACTUAT Albuterol 0.09 MG/ACTUAT Mete red Dose Inhaler [ProAir] ProAir HFA 108 (90 Base) MCG/ACT ProAir HFA 108 (90 Base) MCG/ACT 08/07/2019 12:00:00 AM EDT 2.0 {puff_as_needed} active Pro Air HFA 108 (90 Base) MCG/ACT eCW1 ([facility]) BD AutoShield Duo 30G X 5 MM BD AutoShield Duo 30G X 5 MM 12:00:00 AM EDT active BD AutoShield Duo 30G X 5 MM eCW1 ([facility]) BD AutoShield Duo 30G X 5 MM BD AutoShield Duo 30G X 5 MM 12:00:00 AM EDT active BD AutoShield Duo 30G X 5 MM eCW1 ([facility]) 200 ACTUAT Albuterol 0.09 MG/ACTUAT Mete red Dose Inhaler [ProAir] ProAir HFA 108 (90 Base) MCG/ACT ProAir HFA 108 (90 Base) MCG/ACT 08/07/2019 12:00:00 AM EDT 2.0 {puff_as_needed} active Pro Air HFA 108 (90 Base) MCG/ACT eCW1 ([facility]) 200 ACTUAT Albuterol 0.09 MG/ACTUAT Mete red Dose Inhaler [ProAir] ProAir HFA 108 (90 Base) MCG/ACT ProAir HFA 108 (90 Base) MCG/ACT 08/07/2019 12:00:00 AM EDT 2.0 {puff_as_needed} active Pro Air HFA 108 (90 Base) MCG/ACT eCW1 ([facility]) BD AutoShield Duo 30G X 5 MM BD AutoShield Duo 30G X 5 MM 12:00:00 AM EDT active BD AutoShield Duo 30G X 5 MM eCW1 ([facility]) Walker - Walker - 07/30/2019 12:00:00 AM EDT activ e Walker - eCW1 ([facility]) Walker - Walker - 07/30/2019 12:00:00 AM EDT activ e Walker - eCW1 ([facility]) Walker - Walker - 07/30/2019 12:00:00 AM EDT activ e Walker - eCW1 ([facility]) Walker - Walker - 07/30/2019 12:00:00 AM EDT activ e Walker - eCW1 ([facility]) Walker - Walker - 07/30/2019 12:00:00 AM EDT activ e Walker - eCW1 ([facility]) Walker - Walker - 07/30/2019 12:00:00 AM EDT activ e Walker - eCW1 ([facility]) Walker - Walker - 07/30/2019 12:00:00 AM EDT activ e Walker - eCW1 ([facility]) Walker - Walker - 07/30/2019 12:00:00 AM EDT activ e Walker - eCW1 ([facility]) Walker - Walker - 07/30/2019 12:00:00 AM EDT activ e Walker - eCW1 ([facility]) Walker - Walker - 07/30/2019 12:00:00 AM EDT activ e Walker - eCW1 ([facility]) Walker - Walker - 07/30/2019 12:00:00 AM EDT activ e Walker - eCW1 ([facility]) Walker - Walker - 07/30/2019 12:00:00 AM EDT activ e Walker - eCW1 ([facility]) Walker - Walker - 07/30/2019 12:00:00 AM EDT activ e Walker - eCW1 ([facility]) Walker - Walker - 07/30/2019 12:00:00 AM EDT activ e Walker - eCW1 ([facility]) Walker - Walker - 07/30/2019 12:00:00 AM EDT active 4 wheeled walker with seat eCW1 ([facility]) Walker - Walker - 07/30/2019 12:00:00 AM EDT activ e Walker - eCW1 ([facility]) Walker - Walker - 07/30/2019 12:00:00 AM EDT activ e Walker - eCW1 ([facility]) Walker - Walker - 07/30/2019 12:00:00 AM EDT activ e Walker - eCW1 ([facility]) Walker - Walker - 07/30/2019 12:00:00 AM EDT activ e Walker - eCW1 ([facility]) Walker - Walker - 07/30/2019 12:00:00 AM EDT activ e Walker - eCW1 ([facility]) Walker - Walker - 07/30/2019 12:00:00 AM EDT activ e Walker - eCW1 ([facility]) Walker - Walker - 07/30/2019 12:00:00 AM EDT activ e Walker - eCW1 ([facility]) Walker - Walker - 07/30/2019 12:00:00 AM EDT activ e Walker - eCW1 ([facility]) Walker - Walker - 07/30/2019 12:00:00 AM EDT activ e Walker - eCW1 ([facility]) Walker - Walker - 07/30/2019 12:00:00 AM EDT activ e Walker - eCW1 ([facility]) Walker - Walker - 07/30/2019 12:00:00 AM EDT activ e Walker - eCW1 ([facility]) Walker - Walker - 07/30/2019 12:00:00 AM EDT activ e Walker - eCW1 ([facility]) Walker - Walker - 07/30/2019 12:00:00 AM EDT activ e Walker - eCW1 ([facility]) Walker - Walker - 07/30/2019 12:00:00 AM EDT activ e Walker - eCW1 ([facility]) Walker - Walker - 07/30/2019 12:00:00 AM EDT activ e Walker - eCW1 ([facility]) Walker - Walker - 07/30/2019 12:00:00 AM EDT activ e Walker - eCW1 ([facility]) Walker - Walker - 07/30/2019 12:00:00 AM EDT activ e Walker - eCW1 ([facility]) Walker - Walker - 07/30/2019 12:00:00 AM EDT activ e Walker - eCW1 ([facility]) Walker - Walker - 07/30/2019 12:00:00 AM EDT activ e Walker - eCW1 ([facility]) Walker - Walker - 07/30/2019 12:00:00 AM EDT activ e Walker - eCW1 ([facility]) Walker - Walker - 07/30/2019 12:00:00 AM EDT activ e Walker - eCW1 ([facility]) Walker - Walker - 07/30/2019 12:00:00 AM EDT activ e Walker - eCW1 ([facility]) Walker - Walker - 07/30/2019 12:00:00 AM EDT activ e Walker - eCW1 ([facility]) Walker - Walker - 07/30/2019 12:00:00 AM EDT activ e Walker - eCW1 ([facility]) Walker - Walker - 07/30/2019 12:00:00 AM EDT activ e Walker - eCW1 ([facility]) Walker - Walker - 07/30/2019 12:00:00 AM EDT activ e Walker - eCW1 ([facility]) Walker - Walker - 07/18/2019 12:00:00 AM EDT active 4 wheeled walker with seat eCW1 ([facility]) May Have - UNK 07/16/2019 12:00:00 AM EDT active May Have - eCW1 ([facility]) May Have - UNK 07/16/2019 12:00:00 AM EDT active May Have - eCW1 ([facility]) May Have - UNK 07/16/2019 12:00:00 AM EDT active May Have - eCW1 ([facility]) pregabalin 150 MG Oral Capsule [Lyrica] Lyrica 150 MG Lyrica 150 MG 07/16/2019 12:00:00 AM EDT active 1 capsul e eCW1 ([facility]) May Have - UNK 07/16/2019 12:00:00 AM EDT active May Have - eCW1 ([facility]) May Have - UNK 07/16/2019 12:00:00 AM EDT active May Have - eCW1 ([facility]) May Have - UNK 07/16/2019 12:00:00 AM EDT active May Have - eCW1 ([facility]) May Have - UNK 07/16/2019 12:00:00 AM EDT active May Have - eCW1 ([facility]) May Have - UNK 07/16/2019 12:00:00 AM EDT active May Have - eCW1 ([facility]) May Have - UNK 07/16/2019 12:00:00 AM EDT active May Have - eCW1 ([facility]) May Have - UNK 07/16/2019 12:00:00 AM EDT active May Have - eCW1 ([facility]) May Have - UNK 07/16/2019 12:00:00 AM EDT active May Have - eCW1 ([facility]) May Have - UNK 07/16/2019 12:00:00 AM EDT active May Have - eCW1 ([facility]) May Have - UNK 07/16/2019 12:00:00 AM EDT active May Have - eCW1 ([facility]) May Have - UNK 07/16/2019 12:00:00 AM EDT active compression stocking 15mmhg circ. at calf 43cm, size 12 shoe women's entire sock included eCW1 ([facility]) May Have - UNK 07/16/2019 12:00:00 AM EDT active May Have - eCW1 ([facility]) May Have - UNK 07/16/2019 12:00:00 AM EDT active May Have - eCW1 ([facility]) May Have - UNK 07/16/2019 12:00:00 AM EDT active May Have - eCW1 ([facility]) May Have - UNK 07/16/2019 12:00:00 AM EDT active May Have - eCW1 ([facility]) May Have - UNK 07/16/2019 12:00:00 AM EDT active May Have - eCW1 ([facility]) May Have - UNK 07/16/2019 12:00:00 AM EDT active May Have - eCW1 ([facility]) May Have - UNK 07/16/2019 12:00:00 AM EDT active May Have - eCW1 ([facility]) May Have - UNK 07/16/2019 12:00:00 AM EDT active May Have - eCW1 ([facility]) May Have - UNK 07/16/2019 12:00:00 AM EDT active May Have - eCW1 ([facility]) May Have - UNK 07/16/2019 12:00:00 AM EDT active May Have - eCW1 ([facility]) pregabalin 150 MG Oral Capsule [Lyrica] Lyrica 150 MG Lyrica 150 MG 07/16/2019 12:00:00 AM EDT 1.0 {capsule} active L yrica 150 MG eCW1 ([facility]) May Have - UNK 07/16/2019 12:00:00 AM EDT active May Have - eCW1 ([facility]) May Have - UNK 07/16/2019 12:00:00 AM EDT active May Have - eCW1 ([facility]) May Have - UNK 07/16/2019 12:00:00 AM EDT active May Have - eCW1 ([facility]) May Have - UNK 07/16/2019 12:00:00 AM EDT active May Have - eCW1 ([facility]) May Have - UNK 07/16/2019 12:00:00 AM EDT active May Have - eCW1 ([facility]) May Have - UNK 07/16/2019 12:00:00 AM EDT active May Have - eCW1 ([facility]) pregabalin 150 MG Oral Capsule [Lyrica] Lyrica 150 MG Lyrica 150 MG 07/16/2019 12:00:00 AM EDT 1.0 {capsule} active L yrica 150 MG eCW1 ([facility]) May Have - UNK 07/16/2019 12:00:00 AM EDT active May Have - eCW1 ([facility]) May Have - UNK 07/16/2019 12:00:00 AM EDT active May Have - eCW1 ([facility]) May Have - UNK 07/16/2019 12:00:00 AM EDT active May Have - eCW1 ([facility]) pregabalin 150 MG Oral Capsule [Lyrica] Lyrica 150 MG Lyrica 150 MG 07/16/2019 12:00:00 AM EDT active 1 capsul e eCW1 ([facility]) May Have - UNK 07/16/2019 12:00:00 AM EDT active May Have - eCW1 ([facility]) May Have - UNK 07/16/2019 12:00:00 AM EDT active May Have - eCW1 ([facility]) May Have - UNK 07/16/2019 12:00:00 AM EDT active May Have - eCW1 ([facility]) May Have - UNK 07/16/2019 12:00:00 AM EDT active May Have - eCW1 ([facility]) May Have - UNK 07/16/2019 12:00:00 AM EDT active May Have - eCW1 ([facility]) pregabalin 150 MG Oral Capsule [Lyrica] Lyrica 150 MG Lyrica 150 MG 07/16/2019 12:00:00 AM EDT 1.0 {capsule} active L yrica 150 MG eCW1 ([facility]) pregabalin 150 MG Oral Capsule [Lyrica] Lyrica 150 MG Lyrica 150 MG 07/16/2019 12:00:00 AM EDT 1.0 {capsule} active L yrica 150 MG eCW1 ([facility]) May Have - UNK 07/16/2019 12:00:00 AM EDT active May Have - eCW1 ([facility]) May Have - UNK 07/16/2019 12:00:00 AM EDT active May Have - eCW1 ([facility]) May Have - UNK 07/16/2019 12:00:00 AM EDT active May Have - eCW1 ([facility]) 8 HR Acetaminophen 650 MG Extended Relea se Oral Tablet [Tylenol] Tylenol 8 Hour Arthritis Pain 650 MG Tylenol 8 Hour Arthritis Pain 650 MG 07/04/2019 12:00: 00 AM EDT active Tylenol 8 Hour Ar thritis Pain 650 MG eCW1 ([facility]) 8 HR Acetaminophen 650 MG Extended Relea se Oral Tablet [Tylenol] Tylenol 8 Hour Arthritis Pain 650 MG Tylenol 8 Hour Arthritis Pain 650 MG 07/04/2019 12:00: 00 AM EDT active Tylenol 8 Hour Ar thritis Pain 650 MG eCW1 ([facility]) 8 HR Acetaminophen 650 MG Extended Relea se Oral Tablet [Tylenol] Tylenol 8 Hour Arthritis Pain 650 MG Tylenol 8 Hour Arthritis Pain 650 MG 07/04/2019 12:00: 00 AM EDT active Tylenol 8 Hour Ar thritis Pain 650 MG eCW1 ([facility]) 8 HR Acetaminophen 650 MG Extended Relea se Oral Tablet [Tylenol] Tylenol 8 Hour Arthritis Pain 650 MG Tylenol 8 Hour Arthritis Pain 650 MG 07/04/2019 12:00: 00 AM EDT active Tylenol 8 Hour Ar thritis Pain 650 MG eCW1 ([facility]) 8 HR Acetaminophen 650 MG Extended Relea se Oral Tablet [Tylenol] Tylenol 8 Hour Arthritis Pain 650 MG Tylenol 8 Hour Arthritis Pain 650 MG 07/04/2019 12:00: 00 AM EDT active Tylenol 8 Hour Ar thritis Pain 650 MG eCW1 ([facility]) 8 HR Acetaminophen 650 MG Extended Relea se Oral Tablet [Tylenol] Tylenol 8 Hour Arthritis Pain 650 MG Tylenol 8 Hour Arthritis Pain 650 MG 07/04/2019 12:00: 00 AM EDT active Tylenol 8 Hour Ar thritis Pain 650 MG eCW1 ([facility]) 8 HR Acetaminophen 650 MG Extended Relea se Oral Tablet [Tylenol] Tylenol 8 Hour Arthritis Pain 650 MG Tylenol 8 Hour Arthritis Pain 650 MG 07/04/2019 12:00: 00 AM EDT active Tylenol 8 Hour Ar thritis Pain 650 MG eCW1 ([facility]) 8 HR Acetaminophen 650 MG Extended Relea se Oral Tablet [Tylenol] Tylenol 8 Hour Arthritis Pain 650 MG Tylenol 8 Hour Arthritis Pain 650 MG 07/04/2019 12:00: 00 AM EDT active Tylenol 8 Hour Ar thritis Pain 650 MG eCW1 ([facility]) 8 HR Acetaminophen 650 MG Extended Relea se Oral Tablet [Tylenol] Tylenol 8 Hour Arthritis Pain 650 MG Tylenol 8 Hour Arthritis Pain 650 MG 07/04/2019 12:00: 00 AM EDT active Tylenol 8 Hour Ar thritis Pain 650 MG eCW1 ([facility]) 8 HR Acetaminophen 650 MG Extended Relea se Oral Tablet [Tylenol] Tylenol 8 Hour Arthritis Pain 650 MG Tylenol 8 Hour Arthritis Pain 650 MG 07/04/2019 12:00: 00 AM EDT active Tylenol 8 Hour Ar thritis Pain 650 MG eCW1 ([facility]) 8 HR Acetaminophen 650 MG Extended Relea se Oral Tablet [Tylenol] Tylenol 8 Hour Arthritis Pain 650 MG Tylenol 8 Hour Arthritis Pain 650 MG 07/04/2019 12:00: 00 AM EDT active Tylenol 8 Hour Ar thritis Pain 650 MG eCW1 ([facility]) 8 HR Acetaminophen 650 MG Extended Relea se Oral Tablet [Tylenol] Tylenol 8 Hour Arthritis Pain 650 MG Tylenol 8 Hour Arthritis Pain 650 MG 07/04/2019 12:00: 00 AM EDT active Tylenol 8 Hour Ar thritis Pain 650 MG eCW1 ([facility]) 8 HR Acetaminophen 650 MG Extended Relea se Oral Tablet [Tylenol] Tylenol 8 Hour Arthritis Pain 650 MG Tylenol 8 Hour Arthritis Pain 650 MG 07/04/2019 12:00: 00 AM EDT active Tylenol 8 Hour Ar thritis Pain 650 MG eCW1 ([facility]) 8 HR Acetaminophen 650 MG Extended Relea se Oral Tablet [Tylenol] Tylenol 8 Hour Arthritis Pain 650 MG Tylenol 8 Hour Arthritis Pain 650 MG 07/04/2019 12:00: 00 AM EDT active Tylenol 8 Hour Ar thritis Pain 650 MG eCW1 ([facility]) 8 HR Acetaminophen 650 MG Extended Relea se Oral Tablet [Tylenol] Tylenol 8 Hour Arthritis Pain 650 MG Tylenol 8 Hour Arthritis Pain 650 MG 07/04/2019 12:00: 00 AM EDT active 180 eCW1 ([facility]) 8 HR Acetaminophen 650 MG Extended Relea se Oral Tablet [Tylenol] Tylenol 8 Hour Arthritis Pain 650 MG Tylenol 8 Hour Arthritis Pain 650 MG 07/04/2019 12:00: 00 AM EDT active Tylenol 8 Hour Ar thritis Pain 650 MG eCW1 ([facility]) 8 HR Acetaminophen 650 MG Extended Relea se Oral Tablet [Tylenol] Tylenol 8 Hour Arthritis Pain 650 MG Tylenol 8 Hour Arthritis Pain 650 MG 07/04/2019 12:00: 00 AM EDT active Tylenol 8 Hour Ar thritis Pain 650 MG eCW1 ([facility]) 8 HR Acetaminophen 650 MG Extended Relea se Oral Tablet [Tylenol] Tylenol 8 Hour Arthritis Pain 650 MG Tylenol 8 Hour Arthritis Pain 650 MG 07/04/2019 12:00: 00 AM EDT active Tylenol 8 Hour Ar thritis Pain 650 MG eCW1 ([facility]) 8 HR Acetaminophen 650 MG Extended Relea se Oral Tablet [Tylenol] Tylenol 8 Hour Arthritis Pain 650 MG Tylenol 8 Hour Arthritis Pain 650 MG 07/04/2019 12:00: 00 AM EDT active Tylenol 8 Hour Ar thritis Pain 650 MG eCW1 ([facility]) 8 HR Acetaminophen 650 MG Extended Relea se Oral Tablet [Tylenol] Tylenol 8 Hour Arthritis Pain 650 MG Tylenol 8 Hour Arthritis Pain 650 MG 07/04/2019 12:00: 00 AM EDT active Tylenol 8 Hour Ar thritis Pain 650 MG eCW1 ([facility]) 8 HR Acetaminophen 650 MG Extended Relea se Oral Tablet [Tylenol] Tylenol 8 Hour Arthritis Pain 650 MG Tylenol 8 Hour Arthritis Pain 650 MG 07/04/2019 12:00: 00 AM EDT active Tylenol 8 Hour Ar thritis Pain 650 MG eCW1 ([facility]) 8 HR Acetaminophen 650 MG Extended Relea se Oral Tablet [Tylenol] Tylenol 8 Hour Arthritis Pain 650 MG Tylenol 8 Hour Arthritis Pain 650 MG 07/04/2019 12:00: 00 AM EDT active Tylenol 8 Hour Ar thritis Pain 650 MG eCW1 ([facility]) 8 HR Acetaminophen 650 MG Extended Relea se Oral Tablet [Tylenol] Tylenol 8 Hour Arthritis Pain 650 MG Tylenol 8 Hour Arthritis Pain 650 MG 07/04/2019 12:00: 00 AM EDT active Tylenol 8 Hour Ar thritis Pain 650 MG eCW1 ([facility]) 8 HR Acetaminophen 650 MG Extended Relea se Oral Tablet [Tylenol] Tylenol 8 Hour Arthritis Pain 650 MG Tylenol 8 Hour Arthritis Pain 650 MG 07/04/2019 12:00: 00 AM EDT active Tylenol 8 Hour Ar thritis Pain 650 MG eCW1 ([facility]) 8 HR Acetaminophen 650 MG Extended Relea se Oral Tablet [Tylenol] Tylenol 8 Hour Arthritis Pain 650 MG Tylenol 8 Hour Arthritis Pain 650 MG 07/04/2019 12:00: 00 AM EDT active Tylenol 8 Hour Ar thritis Pain 650 MG eCW1 ([facility]) 8 HR Acetaminophen 650 MG Extended Relea se Oral Tablet [Tylenol] Tylenol 8 Hour Arthritis Pain 650 MG Tylenol 8 Hour Arthritis Pain 650 MG 07/04/2019 12:00: 00 AM EDT active Tylenol 8 Hour Ar thritis Pain 650 MG eCW1 ([facility]) 8 HR Acetaminophen 650 MG Extended Relea se Oral Tablet [Tylenol] Tylenol 8 Hour Arthritis Pain 650 MG Tylenol 8 Hour Arthritis Pain 650 MG 07/04/2019 12:00: 00 AM EDT active Tylenol 8 Hour Ar thritis Pain 650 MG eCW1 ([facility]) 8 HR Acetaminophen 650 MG Extended Relea se Oral Tablet [Tylenol] Tylenol 8 Hour Arthritis Pain 650 MG Tylenol 8 Hour Arthritis Pain 650 MG 07/04/2019 12:00: 00 AM EDT active Tylenol 8 Hour Ar thritis Pain 650 MG eCW1 ([facility]) 8 HR Acetaminophen 650 MG Extended Relea se Oral Tablet [Tylenol] Tylenol 8 Hour Arthritis Pain 650 MG Tylenol 8 Hour Arthritis Pain 650 MG 07/04/2019 12:00: 00 AM EDT active Tylenol 8 Hour Ar thritis Pain 650 MG eCW1 ([facility]) 8 HR Acetaminophen 650 MG Extended Relea se Oral Tablet [Tylenol] Tylenol 8 Hour Arthritis Pain 650 MG Tylenol 8 Hour Arthritis Pain 650 MG 07/04/2019 12:00: 00 AM EDT active Tylenol 8 Hour Ar thritis Pain 650 MG eCW1 ([facility]) 8 HR Acetaminophen 650 MG Extended Relea se Oral Tablet [Tylenol] Tylenol 8 Hour Arthritis Pain 650 MG Tylenol 8 Hour Arthritis Pain 650 MG 07/04/2019 12:00: 00 AM EDT active Tylenol 8 Hour Ar thritis Pain 650 MG eCW1 ([facility]) 8 HR Acetaminophen 650 MG Extended Relea se Oral Tablet [Tylenol] Tylenol 8 Hour Arthritis Pain 650 MG Tylenol 8 Hour Arthritis Pain 650 MG 07/04/2019 12:00: 00 AM EDT active 180 eCW1 ([facility]) 8 HR Acetaminophen 650 MG Extended Relea se Oral Tablet [Tylenol] Tylenol 8 Hour Arthritis Pain 650 MG Tylenol 8 Hour Arthritis Pain 650 MG 07/04/2019 12:00: 00 AM EDT active Tylenol 8 Hour Ar thritis Pain 650 MG eCW1 ([facility]) 8 HR Acetaminophen 650 MG Extended Relea se Oral Tablet [Tylenol] Tylenol 8 Hour Arthritis Pain 650 MG Tylenol 8 Hour Arthritis Pain 650 MG 07/04/2019 12:00: 00 AM EDT active Tylenol 8 Hour Ar thritis Pain 650 MG eCW1 ([facility]) 8 HR Acetaminophen 650 MG Extended Relea se Oral Tablet [Tylenol] Tylenol 8 Hour Arthritis Pain 650 MG Tylenol 8 Hour Arthritis Pain 650 MG 07/04/2019 12:00: 00 AM EDT active Tylenol 8 Hour Ar thritis Pain 650 MG eCW1 ([facility]) 8 HR Acetaminophen 650 MG Extended Relea se Oral Tablet [Tylenol] Tylenol 8 Hour Arthritis Pain 650 MG Tylenol 8 Hour Arthritis Pain 650 MG 07/04/2019 12:00: 00 AM EDT active Tylenol 8 Hour Ar thritis Pain 650 MG eCW1 ([facility]) 8 HR Acetaminophen 650 MG Extended Relea se Oral Tablet [Tylenol] Tylenol 8 Hour Arthritis Pain 650 MG Tylenol 8 Hour Arthritis Pain 650 MG 07/04/2019 12:00: 00 AM EDT active Tylenol 8 Hour Ar thritis Pain 650 MG eCW1 ([facility]) 8 HR Acetaminophen 650 MG Extended Relea se Oral Tablet [Tylenol] Tylenol 8 Hour Arthritis Pain 650 MG Tylenol 8 Hour Arthritis Pain 650 MG 07/04/2019 12:00: 00 AM EDT active 1 tab eCW1 ([facility]) 8 HR Acetaminophen 650 MG Extended Relea se Oral Tablet [Tylenol] Tylenol 8 Hour Arthritis Pain 650 MG Tylenol 8 Hour Arthritis Pain 650 MG 07/04/2019 12:00: 00 AM EDT active Tylenol 8 Hour Ar thritis Pain 650 MG eCW1 ([facility]) 8 HR Acetaminophen 650 MG Extended Relea se Oral Tablet [Tylenol] Tylenol 8 Hour Arthritis Pain 650 MG Tylenol 8 Hour Arthritis Pain 650 MG 07/04/2019 12:00: 00 AM EDT active Tylenol 8 Hour Ar thritis Pain 650 MG eCW1 ([facility]) 8 HR Acetaminophen 650 MG Extended Relea se Oral Tablet [Tylenol] Tylenol 8 Hour Arthritis Pain 650 MG Tylenol 8 Hour Arthritis Pain 650 MG 07/04/2019 12:00: 00 AM EDT active Tylenol 8 Hour Ar thritis Pain 650 MG eCW1 ([facility]) 8 HR Acetaminophen 650 MG Extended Relea se Oral Tablet [Tylenol] Tylenol 8 Hour Arthritis Pain 650 MG Tylenol 8 Hour Arthritis Pain 650 MG 07/04/2019 12:00: 00 AM EDT active Tylenol 8 Hour Ar thritis Pain 650 MG eCW1 ([facility]) 8 HR Acetaminophen 650 MG Extended Relea se Oral Tablet [Tylenol] Tylenol 8 Hour Arthritis Pain 650 MG Tylenol 8 Hour Arthritis Pain 650 MG 07/04/2019 12:00: 00 AM EDT active Tylenol 8 Hour Ar thritis Pain 650 MG eCW1 ([facility]) May Have - UNK 06/11/2019 12:00:00 AM EDT active rolator eCW1 ([facility]) Acetaminophen 325 MG / Hydrocodone Bitartrate 5 MG Ora l Tablet Hydrocodone Bitartrate/Acetaminophen 04/23/2019 12:00:00 AM EST ORAL active [facility] ([place] [facility] Magnesium Hydroxide 80 MG/ML Oral Suspension Milk Of Magnesi a 03/22/2019 12:00:00 AM EST ORAL completed [facility] ([facility], ) POLYETHYLENE GLYCOL 3350 105 MG/ML / Pot assium Chloride 0.45636 MEQ/ML / Sodium Bicarbonate 0.017 MEQ/ML / Sodium Chloride 0.0479 MEQ/ML Oral Solution [TriLyte] Trilyte 03/22/2019 12:00:00 AM EST completed [facility] ([facility], ) pregabalin 75 MG Oral Capsule Pregabalin 02/13/2019 12:00:00 AM EST ORAL completed [facility] ([facility], ) Metoprolol Tartrate 50 MG Oral Tablet me toprolol tartrate (LOPRESSOR) 50 MG tablet metoprolol tartrate (LOPRESSOR) 50 MG tablet 08/22/2016 12:0 0:00 AM EDT aborted HTN (hypertension), benign take 1 tablet by mouth once daily [facility] HTN (hypertension), benign Simvastatin 40 MG Oral Tablet simvastatin (ZOCOR) 40 M G tablet simvastatin (ZOCOR) 40 MG tablet 08/22/2016 12:00:00 AM EDT aborted Hyperlipidemia, unspecified hyperlipidemia type take 1 tablet by mouth at bedtime [facility] Hyperlipidemia, unspecified hyperlipidem ia type 60 ACTUAT Fluticasone propionate 0.5 MG/ ACTUAT / salmeterol 0.05 MG/ACTUAT Dry Powder Inhaler [Advair] ADVAIR DISKUS 500-50 MCG/DOSE DISKUS ADVAIR DISKUS 500- 50 MCG/DOSE DISKUS 08/22/2016 12:00:00 AM EDT aborted Uncomplicated asthma, unspecified asthma severity inhale 1 puff by mouth t wice a day [facility] Uncomplicated asthma, unspecified asthma severity insulin human, isophane 70 UNT/ML / Regu lar Insulin, Human 30 UNT/ML Injectable Suspension insulin NPH-insulin regular (HUMULIN) (70-30) 100 UNIT/ML injection insulin NPH-insulin regular (HUMULIN) (70-30) 100 UNIT/ML injection 06/14/2016 12:00:00 AM EDT 38 U Subcutaneous aborted T ype 2 diabetes mellitus without complication, unspecified halfway insulin use status Inject 38 Units under the skin 2 (two) times a day before meals [facility] Type 2 diabetes mellitus without complic ation, 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 Lidocaine 0.05 MG/MG Topical Ointment lidocaine (XYLOC HERB) 5 % ointment lidocaine (XYLOCAINE) 5 % ointment 05/27/2016 12:00:00 AM EDT aborted APPLY SMALL AMOUNT OF OINTME NT TO GAUZE PAD AND APPLY PAD TO AFFECTED AREA (12 HRS ON 12 HRS OFF) [facility] terbinafine 250 MG Oral Tablet terbinafine (LAMISIL) 2 50 MG tablet terbinafine (LAMISIL) 250 MG tablet 05/26/2016 12:00:00 AM EDT aborted take 1 tablet by mouth once daily [facility] Trazodone Hydrochloride 50 MG Oral Tablet traZODone (D ESYREL) 50 MG tablet traZODone (DESYREL) 50 MG tablet 03/21/2016 12:00:00 AM EST aborted take 1 and 1/2 tablets by mouth at bedtime [facility] Lisinopril 40 MG Oral Tablet lisinopril (PRINIVIL,ZEST RIL) 40 MG tablet lisinopril (PRINIVIL,ZESTRIL) 40 MG tablet 02/12/2016 12:00:00 AM EST 40 mg Oral aborted HTN (hypertension), benign Take 1 tablet (40 mg total) by mouth daily [facility] HTN (hypertension), benign Metformin hydrochloride 1000 MG Oral Tab let metFORMIN (GLUCOPHAGE) 1000 MG tablet metFORMIN (GLUCOPHAGE) 1000 MG tablet 02/12/2016 12:00:00 AM EST 1000 mg Oral aborted Type II or unsp ecified type diabetes mellitus without mention of complication, not stated as uncontrolled Ta ke 1 tablet (1,000 mg total) by mouth 2 (two) times a day with meals [facility] Type II or unspecified type diabetes francie litus without mention of complication, not stated as uncontrolled INSULIN SYRINGE .5CC/28G 28G X 1/2" 0.5 ML [facility] [id number] 12/17/2015 12:00:00 AM EDT 18 U Does not apply aborted Type 2 diabetes mellitus without complication 18 Units by Does not apply route 2 (two) times a day [facility] Type 2 diabetes mellitus without complic ation Ergocalciferol 73996 UNT Oral Capsule vi tamin D, Ergocalciferol, 88637 UNITS CAPS vitamin D, Ergocalciferol, 41050 UNITS CAPS 11/18/2015 12:00:00 AM EDT 1 {capsule} Oral aborted Vitamin D deficiency Take 1 capsule by mouth every 30 (thirty) days [facility] Vitamin D deficiency clopidogrel 75 MG Oral Tablet clopidogrel (PLAVIX) 75 MG tablet clopidogrel (PLAVIX) 75 MG tablet 75 mg Oral aborted Take 75 mg by mouth daily Prior to procedure [facility] 24 HR Isosorbide Mononitrate 30 MG Exten ded Release Oral Tablet isosorbide mononitrate (IMDUR) 30 MG 24 hr tablet isosorbide mononitrate (IMDUR) 30 MG 24 hr tablet 30 mg Oral aborted Take 30 mg by mouth daily [facility] Insurance Providers Payer name Policy type / Coverage type Policy ID Covered alliance party ID Covered alliance party's relationship to maxwell Policy Maxwell Plan Information [facility] [id number] SP [id number] [facility] [id number] SP [id number] MEDICARE [id number] SP [id number] [facility] [id number] SP [id number] HUMANA GOLD [id number] SP [id number] [facility](MCAID) O [id number] S [id number] MEDICAID M [id number] [facility] [id number] SP [id number] HUMANA GOLD [id number] SP [id number] [place] [id number] SP [id number] MEDICARE COMPLETE [id number] SP [id number] MEDICARE COMPLETE [id number] SP [id number] MEDICARE [id number] SP [id number] MEDICARE COMPLETE [id number] SP [id number] MEDICARE COMPLETE [id number] SP [id number] MEDICARE COMPLETE [id number] SP [id number] MEDICARE COMPLETE-[facility] O [id number] S [id number] INSURANCE COVID-19 [id number] MEDICAID [id number] MEDICARE [id number] MEDICARE [id number] [place] [id number] [id number] MEDICAID [id number] [place] [id number] INSURANCE COVID-19 COVID [place] C OVID MEDICAID [id number] SP [id number] [employer] [id number] SP [id number] MEDICARE [id number] SP [id number] MEDICARE COMPLETE [id number] SP [id number] MEDICARE C [id number] S [id number] MEDICARE [id number] SP [id number] A [employer] P [id number] S [id number] Medicaid S [id number] S [id number] MEDICARE COMPLETE [id number] SP [id number] Unitedhealthcare [employer] P [id number] S [id number] MEDICARE [id number] SP [id number] A [facility] Medicare Solutions F [id number] SELF [id number] Medicaid [facility] Healthcare S D [id number] SELF [id number] MEDICAID [id number] SP [id number] MEDICARE COMPLETE [id number] SP [id number] Unitedhealthcare [employer] P [id number] S [id number] Medicare Wrap S [id number] S [id number] Medicare Wrap S [id number] S [id number] Medicaid Medigap Part B [id number] Self [id number] [facility]-Medicare Solutions Commercial [id number] Self [id number] Medicaid Medigap Part B [id number] Self [id number] [facility]-Medicare Solutions Commercial [id number] Self [id number] Medicare C [id number] SELF [id number] Medicaid [facility] S D [id number] SELF [id number] DME Jurisdiction A NHIC C [id number] SELF [id number] [facility] Medicare F [id number] SELF [id number] [facility] Medicare Solutions F [id number] SELF [id number] [facility] Medicare Solutions F [id number] SELF [id number] Medicaid [facility] S D [id number] SELF [id number] [facility] Medicare Passport F [id number] SELF [id number] Medicaid Medicaid [id number] Self [id number] [employer] Commercial [id number] Self [id number] [employer] [facility] Secure Horizons P [id number] S [id number] Medicare Wrap O [id number] S [id number] Medicaid Medicaid [id number] Self [id number] [employer] Commercial [id number] Self [id number] ANSI-Medicare Part B [id number] ANSI-Medicaid [id number] Medicaid Medicaid [id number] Self [id number] [employer] Commercial [id number] Self [id number] ANSI-Medicare Part B [id number] ANSI-Medicaid [id number] [employer] UN MEDICARE O/P [id number] 18 [id number] MEDICARE PART B-O/P [id number] 18 [id number] Medicare [facility] Medicare Primary [id number] Self [id number] [place] Medig[place] Part B [id number] Self [id number] [employer] Medigap Part B [id number] Self [id number] [employer] Medicare Commercial [id number] Self [id number] Medicare [facility] Medicare Primary [id number] Self [id number] Medicaid Medicaid [id number] Self [id number] [employer] Commercial [id number] Self [id number] Medicare [facility] Medicare Primary [id number] Self [id number] [place] Medig[place] Part B [id number] Self [id number] Medicaid Medicaid [id number] Self [id number] [employer] Commercial [id number] Self [id number] Medicare [facility] Medicare Primary [id number] Self [id number] [place]ig[place] Part B [id number] Self [id number] MEDICARE COMPLETE [id number] SP [id number] MEDICAID [id number] SP [id number] [place] Medigap Part B [id number] Self [id number] [facility] (HMO) [id number] Self [id number] [facility] MEDICARE [id number] [place] [id number] MEDICAID [id number] [place] [id number] [facility] MEDICARE [id number] [place] [id number] MEDICARE [id number] [place] [id number] MEDICAID [id number] [place] [id number] MEDICARE [id number] [place] [id number] [place] Medigap Part B Self [facility] ([facility]) Commercial Self MEDICARE COMPLETE [id number] SP [id number] MEDICARE [facility] [id number] SELF [id number] MEDICAID [id number] SELF [id number] MEDICARE [id number] SELF [id number] A SELF PAY UNAVAILABLE SELF UNAVAILA BLE [employer] [id number] SP [id number] Problems, Conditions, and Diagnoses Code Display Name Description Problem Type Effective Dates Data Source(s) K44.9 90111951 Hiatal hernia Problem 02/21/2020 12:00:00 AM EST eCW1 ([facility]) J44.9 71255236 Chronic obstructive pulmonary di sease, unspecified COPD type Problem 02/21/2020 12:00:00 AM EST eCW1 ([facility]) R94.39 Abnormal stress test Abnormal stress test [id number] 08/27/2019 12:00:00 AM EDT [facility] I10 Essential hypertension, benign Essential hypertension, benign [id number] 08/15/2019 12:00:00 AM EDT [facility] E11.69 Type 2 diabetes mellitus with other spec ified complication Type 2 diabetes mellitus with other specified complication [id number] 12:00:00 AM EDT [facility] N18.3 Chronic kidney disease, stage III (moder ate) Chronic kidney disease, stage III (moderate) [id number] 08/15/2019 12:00:00 AM EDT [facility] R07.9 Chest pain Chest pain [id number] 08/15/2019 12:00:00 AM ED T [facility] R94.31 Nonspecific abnormal electrocardiogram ( ECG) (EKG) Nonspecific abnormal electrocardiogram (ECG) (EKG) [id number] 08/15/2019 12:00:00 AM EDT [facility] Z01.810 Pre-operative cardiovascular examination Pre-operative cardiovascular examination [id number] 08/15/2019 12:00:00 AM EDT [facility] K76.0 057753816 Fatty liver Problem 06/13/2019 12:00:00 AM E DT eCW1 ([facility]) D12.2 329587065 Adenomatous polyp of ascending colon Prob anabel 06/13/2019 12:00:00 AM EDT eCW1 ([facility]) Z12.39 065843009 Breast cancer screening Problem 06/13/2019 1 2:00:00 AM EDT eCW1 ([facility]) M51.36 90487105 DDD (degenerative disc disease), lumbar P roblem 06/13/2019 12:00:00 AM EDT eCW1 ([facility]) R55 437401616 Pre-syncope Problem 06/13/2019 12:00:00 AM E DT eCW1 ([facility]) Z12.4 005848581 Cervical cancer screening Problem 06/13/2019 12:00:00 AM EDT eCW1 ([facility]) K63.5 032201707 Hyperplastic colonic polyp, unspecified p art of colon Problem 06/13/2019 12:00:00 AM EDT eCW1 ([facility]) D12.2 798954236 Adenomatous polyp of ascending colon Prob anabel 06/13/2019 12:00:00 AM EDT eCW1 ([facility]) K63.5 404122250 Hyperplastic colonic polyp, unspecified p art of colon Problem 06/13/2019 12:00:00 AM EDT eCW1 ([facility]) Z12.4 540021387 Cervical cancer screening Problem 06/13/2019 12:00:00 AM EDT eCW1 ([facility]) Z12.39 908161911 Breast cancer screening Problem 06/13/2019 1 2:00:00 AM EDT eCW1 ([facility]) R55 395139680 Pre-syncope Problem 06/13/2019 12:00:00 AM E DT eCW1 ([facility]) K76.0 274379780 Fatty liver Problem 06/13/2019 12:00:00 AM E DT eCW1 ([facility]) M51.36 29582191 DDD (degenerative disc disease), lumbar P roblem 06/13/2019 12:00:00 AM EDT eCW1 ([facility]) F32.0 Mild major depression, single episode Cu rrent mild episode of major depressive disorder, unspecified whether recurrent Problem 03/2019 12:00:00 AM EDT eCW1 ([facility]) F32.0 Mild major depression, single episode Cu rrent mild episode of major depressive disorder, unspecified whether recurrent Problem 03/2019 12:00:00 AM EDT eCW1 ([facility]) Z76.89 Persons encountering health services in other specified circumstances Assisted living facility patient 06/11/2019 07:54:49 AM EDT [facility] Z86.711 848113441 History of pulmonary embolus (PE) Problem 06/11/2019 12:00:00 AM EDT eCW1 ([facility]) E11.22 10067062 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 Problem 06/11/2019 12:00:00 AM EDT eCW1 ([facility]) E78.2 907794046 Mixed hyperlipidemia Problem 06/11/2019 12:0 0:00 AM EDT eCW1 ([facility]) Z86.718 350620671 H/O deep venous thrombosis Problem 0 12:00:00 AM EDT eCW1 ([facility]) J30.1 44094433 Seasonal allergic rhinitis due to pollen Problem 06/11/2019 12:00:00 AM EDT eCW1 ([facility]) N18.3 283880559 Chronic kidney disease, stage 3 (moderate ) Problem 06/11/2019 12:00:00 AM EDT eCW1 ([facility]) Z79.4 125615228 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 Proble m 06/11/2019 12:00:00 AM EDT eCW1 ([facility]) Z86.711 485429725 Personal history of pulmonary embolism Pr oblem 06/11/2019 12:00:00 AM EDT eCW1 ([facility]) I10 99383961 Essential hypertension Problem 06/11/2019 12 :00:00 AM EDT eCW1 ([facility]) K21.9 234945345 Gastroesophageal ref lux disease, esophagitis presence not specified Problem 06/11/2019 12:00:00 AM EDT eCW1 ([facility]) K59.00 41603194 Constipation, unspecified constipation ty pe Problem 06/11/2019 12:00:00 AM EDT eCW1 ([facility]) E11.42 597744164 Diabetic polyneuropa thy associated with type 2 diabetes mellitus Problem 06/11/2019 12:00:00 AM EDT eCW1 ([facility]) M17.0 643154432 Primary osteoarthritis of both knees Prob anabel 06/11/2019 12:00:00 AM EDT eCW1 ([facility]) E55.9 53997601 Vitamin D deficiency Problem 06/11/2019 12:0 0:00 AM EDT eCW1 ([facility]) N18.3 791619429 Chronic kidney disease, stage 3 (moderate ) Problem 06/11/2019 12:00:00 AM EDT eCW1 ([facility]) Z79.4 687671061 MCC (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 Proble m 06/11/2019 12:00:00 AM EDT eCW1 ([facility]) E55.9 43745676 Vitamin D deficiency Problem 06/11/2019 12:0 0:00 AM EDT eCW1 ([facility]) E11.22 45523342 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 Problem 06/11/2019 12:00:00 AM EDT eCW1 ([facility]) E78.2 428041945 Mixed hyperlipidemia Problem 06/11/2019 12:0 0:00 AM EDT eCW1 ([facility]) I10 89880940 Essential hypertension Problem 06/11/2019 12 :00:00 AM EDT eCW1 ([facility]) K59.00 37573095 Constipation, unspecified constipation ty pe Problem 06/11/2019 12:00:00 AM EDT eCW1 ([facility]) Z86.711 730405152 History of pulmonary embolus (PE) Problem 06/11/2019 12:00:00 AM EDT eCW1 ([facility]) E11.42 792947613 Diabetic polyneuropa thy associated with type 2 diabetes mellitus Problem 06/11/2019 12:00:00 AM EDT eCW1 ([facility]) M17.0 338922705 Primary osteoarthritis of both knees Prob anabel 06/11/2019 12:00:00 AM EDT eC ([facility]) J30.1 63919066 Seasonal allergic rhinitis due to pollen Problem 06/11/2019 12:00:00 AM EDT eC ([facility]) Z86.718 809088970 H/O deep venous thrombosis Problem 0 12:00:00 AM EDT eCW ([facility]) K21.9 259234148 Gastroesophageal ref lux disease, esophagitis presence not specified Problem 06/11/2019 12:00:00 AM EDT eC1 ([facility]) 719.45 Pain in right hip Pain in right hip 06/05/2019 02:22:29 PM EDT [facility] 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 06/05/2019 02:22:29 PM EDT [facility] V58.67 MCC (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 05/31/2019 04:13:53 PM EDT [facility] R04.0 Epistaxis Bleeding from nose 05/27/2019 03:07: 12 PM EDT [facility] 338.29 Chronic pain Chronic pain 05/24/2019 02:56:10 P M EDT [facility] 789.09 Suprapubic pain Suprapubic pain 04/18/2019 02:2 5:57 PM [facility] [id number] Carpal tunnel syndrome of right wrist Ca rpal tunnel syndrome of right wrist 04/10/2019 08:19:36 AM [facility] 787.91 Acute diarrhea Acute diarrhea 04/10/2019 08:19: 36 AM [facility] [id number] Pure hypercholesterolemia Pure hypercholesterolemia Pr oblem 03/19/2019 12:00:00 AM EST MEDENT ([facility]) I10 Essential (primary) hypertension Essential (primary) h ypertension Diagnosis 08/27/2019 06:06:00 AM EDT [facility] E11.69 Type 2 diabetes mellitus with other spec ified complication Type 2 diabetes mellitus with other spec Diagnosis 08/27/2019 06:06:00 AM EDT [facility] N18.3 Chronic kidney disease, stage 3 (moderat e) Chronic kidney disease, stage 3 (moderat Diagnosis 08/27/2019 06:06:00 AM EDT [facility] R07.9 Chest pain, unspecified Chest pain, unspecified Diagno sis 08/27/2019 06:06:00 AM EDT [facility] R94.31 Abnormal electrocardiogram [ECG] [EKG] A bnormal electrocardiogram (ECG) (EKG) Diagnosis 08/27/2019 06:06:00 AM EDT [facility] Z01.810 Encounter for preprocedural cardiovascul ar examination Encounter for preprocedural cardiovascul Diagnosis 08/27/2019 06:06:00 AM EDT [facility] Surgeries/Procedures Procedure Description Date Indications Data Source(s) RADEX HAND MINIMUM 3 VIEWS 04/08/2020 12:00:00 AM EST MEDENT ([facility]) DEBRIDEMENT NAIL ANY METHOD 02/13/2020 12:00:00 AM EST [facility] Endoscopy Upper GI Complex Diagnostic 01/21/2020 12:00 :00 AM EST MEDENT ([facility], ) Colonoscopy,W/Directed Submucosal Injections, Any Substance 01/21/2020 12:00:00 AM EST MEDENT ([facility] ) Colonoscopy W/ Poly 01/21/2020 12:00:00 AM EST [facility] ([facility], ) DEBRIDEMENT NAIL ANY METHOD 12/05/2019 12:00:00 AM EDT [facility] ([facility] RADIOLOGIC EXAM KNEE COMPLETE 4/MORE VIEWS 10/16/2019 12:00:00 AM EDT [facility] ([facility]) ARTHROCENTESIS ASPIR&/INJECTION MAJOR JT/BURSA 020 12:00:00 AM EDT [facility] ([facility]) DEBRIDEMENT NAIL ANY METHOD 09/26/2019 12:00:00 AM EDT [facility] ([facility] CARDIAC CATHETERIZATION CARDIAC CATHETERIZATION Routine 08/27/2019 8:24 AM EDT Pre-operative cardiovascular examination Nonspecific abnormal electrocardiogram (ECG) (EKG) Chest pain, unspecified type Chronic kidney disease, stage III (moderate) Type 2 diabetes mellitus with other specified complication, unspecified whether halfway insulin use Essential hypertension, benign 08/27/2019 12:24:14 PM EDT Es sential hypertension, benignType 2 diabetes mellitus with other specified complication, unspecified whether cheese supervisor insulin useChronic kidney disease, stage III (moderate)Chest pain, unspecified typeNonspecific abnormal electrocardiogram (ECG) (EKG)Pre-operative cardiovascular examination [facility] Essential hypertension, benign Type 2 diabetes mellitus with other spec ified complication, unspecified whether halfway insulin use Chronic kidney disease, stage III (moder ate) Chest pain, unspecified type Nonspecific abnormal electrocardiogram ( ECG) (EKG) Pre-operative cardiovascular examination GLUC BLD GLUC MNTR DEV CLEARED FDA SPEC HOME USE POCT GLUCOSE Routine 08/27/2019 7:25 AM EDT 08/27/2019 11:25:00 AM EDT [facility] ECG ROUTINE ECG W/LEAST 12 LDS TRCG ONLY W/O I&R ECG 12-LEAD Routine 08/27/2019 6:31 AM EDT 08/27/2019 10:31:44 AM EDT [facility] ECG ROUTINE ECG W/LEAST 12 LDS W/I&R 08/13/2019 12:00: 00 AM EDT MED[facility] ([facility]) Arterial Pressure Waveform Analysis For Assessment Of Centra l Art 08/13/2019 12:00:00 AM EDT MEDEUGENIO ([facility]) Bronchospasm Evaluation 07/25/2019 12:00:00 AM EDT MEDENT ([facility], ) Maximum Breathing Capacity, Maximal Voluntary Ventilation 07/25/2019 12:00:00 AM EDT MEDENT ([facility] ) Plethysmography Determination Lung Volumes & Per Airway Resi st 07/25/2019 12:00:00 AM EDT MEDENT ([facility], ) DIFFUSING CAPACITY 07/25/2019 12:00:00 AM EDT MEDENT ([facility], ) Office Visit, Est Pt., Level 2 FC 07/16/2019 12:00:00 AM EDT eCW1 ([facility]) Office Visit, Est Pt., Level 4 PC 07/16/2019 12:00:00 AM EDT eCW1 ([facility]) Office Visit, New Pt., Level 4 PC 06/11/2019 12:00:00 AM EDT eCW1 ([facility]) Office Visit, New Pt., Level 2 FC 06/11/2019 12:00:00 AM EDT eCW1 ([facility]) DEBRIDEMENT NAIL ANY METHOD 6/> 05/02/2019 12:00:00 AM EST [facility] RADEX WRIST COMPLETE MINIMUM 3 VIEWS 03/19/2019 12:00: 00 AM EST MED[facility] ([facility]) Results ID Date Data Source [id number] 04/27/2020 09:00:00 AM EST [facility] Name Value Range Interpretation Code Description Data Adilene rce(s) Supporting Document(s) SARS coronavirus 2 RNA Not Detected [facility] This lab was ordered by [facility] and reported by [facility]. ID Date Data Source [id number] 04/20/2020 06:33:00 AM EST [facility] Name Value Range Interpretation Code Description Data Adilene rce(s) Supporting Document(s) SARS coronavirus 2 RNA Not Detected [facility] [place] This lab was ordered by [facility] and reported by [facility]. ID Date Data Source [id number] 04/13/2020 08:00:00 AM EST [facility] Name Value Range Interpretation Code Description Data Adilene rce(s) Supporting Document(s) SARS coronavirus 2 RNA Not Detected [facility] [place] This lab was ordered by [facility] and reported by [facility]. ID Date Data Source [id number] 04/06/2020 08:00:00 AM EST [facility] Name Value Range Interpretation Code Description Data Adilene rce(s) Supporting Document(s) SARS coronavirus 2 RNA Not Detected [facility] [place] This lab was ordered by [facility] and reported by [facility]. ID Date Data Source [id number] 03/30/2020 11:00:00 AM EST [facility] Name Value Range Interpretation Code Description Data Adilene rce(s) Supporting Document(s) SARS coronavirus 2 RNA Not Detected [facility] [place] This lab was ordered by [facility] and reported by [facility]. ID Date Data Source [id number] 03/23/2020 06:00:00 AM EST [facility] Name Value Range Interpretation Code Description Data Adilene rce(s) Supporting Document(s) SARS coronavirus 2 RNA Not Detected [facility] [place] This lab was ordered by [facility] and reported by [facility]. ID Date Data Source [id number] 03/16/2020 09:00:00 AM EST [facility] Name Value Range Interpretation Code Description Data Adilene rce(s) Supporting Document(s) SARS coronavirus 2 RNA Not Detected [facility] [place] This lab was ordered by [facility] and reported by [facility]. ID Date Data Source [id number] 03/09/2020 07:35:00 AM EST [facility] Name Value Range Interpretation Code Description Data Adilene rce(s) Supporting Document(s) SARS coronavirus 2 RNA [facility] This lab was ordered by [facility] and reported by [facility]. ID Date Data Source [id number] 03/02/2020 09:00:00 AM EST [facility] Name Value Range Interpretation Code Description Data Adilene rce(s) Supporting Document(s) SARS coronavirus 2 RNA [facility] This lab was ordered by [facility] and reported by [facility]. ID Date Data Source [id number] 02/26/2020 11:55:00 AM EST [facility] Name Value Range Interpretation Code Description Data Adilene rce(s) Supporting Document(s) SARS coronavirus 2 RNA [facility] This lab was ordered by [facility] and reported by [facility]. ID Date Data Source [id number] 02/26/2020 12:00:00 AM EST [facility] Name Value Range Interpretation Code Description Data Adilene rce(s) Supporting Document(s) SARS-CoV2 Rapid Antigen [facility] This lab was ordered by [facility] and reported by [facility]. ID Date Data Source [id number] 02/23/2020 08:55:00 AM EST [facility] ([facility]) Name Value Range Interpretation Code Description Data Adilene rce(s) Supporting Document(s) White Blood Count 6.9 4.0-10.0 [facility] ([facility]) Red Blood Count 4.12 4.00-5.40 [facility] ([facility]) Platelets 245 150-450 [facility] ([facility]) Hemoglobin 11.3 [facility] ([facility]) Hematocrit 35.1 [facility] ([facility]) ID Date Data Source [id number] 02/23/2020 05:12:00 AM EST [facility] Name Value Range Interpretation Code Description Data Adilene rce(s) Supporting Document(s) SARS coronavirus 2 RNA [Presence] in Res piratory specimen by SUZANNA with probe detection [facility] This lab was ordered by [facility] a nd reported by [facility]. ID Date Data Source [id number] 02/21/2020 02:48:00 PM EST [facility] Name Value Range Interpretation Code Description Data Adilene rce(s) Supporting Document(s) SARS coronavirus 2 RNA [facility] This lab was ordered by [facility] and reported by [facility]. ID Date Data Source [id number] 02/11/2020 09:10:00 AM EST [facility] Name Value Range Interpretation Code Description Data Adilene rce(s) Supporting Document(s) SARS coronavirus 2 RNA [facility] This lab was ordered by [facility] and reported by [facility]. ID Date Data Source [id number] 02/11/2020 12:00:00 AM EST [facility] Name Value Range Interpretation Code Description Data Adilene rce(s) Supporting Document(s) SARS-CoV2 Rapid PCR [facility] This lab was ordered by [facility] and reported by [facility]. ID Date Data Source [id number] 02/07/2020 12:00:00 AM EST [facility] Name Value Range Interpretation Code Description Data Adilene rce(s) Supporting Document(s) SARS-CoV2 Rapid Antigen [facility] This lab was ordered by [facility] and reported by [facility]. ID Date Data Source [id number] 01/21/2020 02:05:00 PM EST [facility] ([facility], ) Name Value Range Interpretation Code Description Data Adilene rce(s) Supporting Document(s) Surgical pathology study Laboratory test result [facility] ([facility], ) FINAL DIAGNOSIS Colon, hepatic flexure polypoid mass, cold snare polypectomy: Fragments of tubular adenoma. 01/23/2020 - 115 CLINICAL DIAGNOSIS Melena 01/22/2020 - 1250 GROSS DIAGNOSIS Received in formalin labeled "snare polyp mass @ hepatic flexure" are multiple fragments of frias tissue and fecal material measuring 1.5 x 1.0 x 0.3 cm. in aggregate. All in one. -SV 01/22/2020 - 1249 Signed MARCO ANTONIO PANDEY MD 01/23/2020 1536 ID Date Data Source [id number] 01/21/2020 12:55:00 PM EST [facility] ([facility], ) Name Value Range Interpretation Code Description Data Adilene rce(s) Supporting Document(s) Glucose [Mass/volume] in Capillary blood by Glucometer 182 mg/dL 80-115 Above high normal [facility] ([facility], ) order not to draw ID Date Data Source [id number] 01/17/2020 02:38:11 AM EST eCW1 ([facility]) Name Value Range Interpretation Code Description Data Adilene rce(s) Supporting Document(s) Hemoglobin A1c/Hemoglobin.total in Blood 8.8 HEMOGLOBIN A1c eCW1 ([facility]) ID Date Data Source [id number] [id number] 01/17/2020 02:38:09 AM EST eCW1 ([facility]) Name Value Range Interpretation Code Description Data Adilene rce(s) Supporting Document(s) 23 NT-PRO BNP eCW1 ([facility]) ID Date Data Source CBC with Differential 01/17/2020 02:38:03 AM EST eCW1 ([facility]) Name Value Range Interpretation Code Description Data Adilene rce(s) Supporting Document(s) 5.6 WHITE BLOOD COUNT eCW1 ([facility]) 36.0 HEMATOCRIT eCW1 ([facility]) 4.23 RED BLOOD COUNT eCW1 ([facility]) 11.9 HEMOGLOBIN eCW1 ([facility]) 28.1 MEAN CORPUSCULAR HEMOGLOBIN eC W1 ([facility]) 12.8 RED CELL DISTRIBUTION WIDTH eC W1 ([facility]) 33.1 MEAN CORPUSCULAR HGB CONC eCW1 ([facility]) 85.1 MEAN CORPUSCULAR VOLUME eCW1 ( [facility]) 10.5 MONO % eCW1 ([facility]) 38.9 LYMPH % eCW1 ([facility]) 46.8 NEUTROPHILS % eCW1 ([facility]) 241 PLATELET COUNT, AUTOMATED eCW1 ([facility]) 2.6 NEUTROPHILS # eCW1 ([facility]) 0.9 BASO % eCW1 ([facility]) 2.5 EOS % eCW1 ([facility]) 0.1 BASO # eCW1 ([facility]) 0.1 EOS # eCW1 ([facility]) 0.6 MONO # eCW1 ([facility]) 2.2 LYMPH # eCW1 ([facility]) ID Date Data Source PTH INTACT 01/17/2020 02:38:00 AM EST eCW1 ([facility]) Name Value Range Interpretation Code Description Data Adilene rce(s) Supporting Document(s) 60.5 PTH INTACT eCW1 ([facility]) ID Date Data Source Comprehensive Metabolic Profile (CMP) 01/17/2020 02:37:42 AM EST eCW1 ([facility]) Name Value Range Interpretation Code Description Data Adilene rce(s) Supporting Document(s) 227 GLUCOSE, FASTING eCW1 ([facility]) 48.5 GLOMERULAR FILTRATION RATE eCW 1 ([facility]) 19 BLOOD UREA NITROGEN eCW1 ([facility]) 1.18 CREATININE FOR GFR eCW1 ([facility]) 103 CHLORIDE LEVEL eCW1 ([facility]) 27 CARBON DIOXIDE LEVEL eCW1 ([facility]) 138 SODIUM LEVEL eCW1 ([facility]) 3.9 POTASSIUM SERUM eCW1 ([facility]) 9.0 CALCIUM LEVEL eCW1 ([facility]) 27 AST/SGOT eCW1 ([facility]) 51 ALT/SGPT eCW1 ([facility]) 116 ALKALINE PHOSPHATASE eCW1 ([facility]) 6.8 TOTAL PROTEIN eCW1 ([facility]) 3.6 ALBUMIN eCW1 ([facility]) 1.1 ALBUMIN/GLOBULIN RATIO eCW1 ([facility]) 0.3 BILIRUBIN,TOTAL eCW1 ([facility]) ID Date Data Source [id number] 01/16/2020 12:00:00 PM EST [facility] Name Value Range Interpretation Code Description Data Adilene rce(s) Supporting Document(s) SARS coronavirus 2 RNA [facility] This lab was ordered by [facility] and reported by [facility]. ID Date Data Source [id number] 08/29/2019 12:00:00 AM EDT [facility] Name Value Range Interpretation Code Description Data Adilene rce(s) Supporting Document(s) 2019-nCoV N XXX Ql SUZANNA N2 [facility] This lab was ordered by [facility] and reported by [facility]. ID Date Data Source [id number] 08/27/2019 08:50:27 AM EDT [facility] Name Value Range Interpretation Code Description Data Adilene rce(s) Supporting Document(s) EKG [facility] UOOHLc8pYoNYIeIbf6RxSxSmZUYmQW6orcb7M6I8rOTgO9YgpADbl5dhS6CbW7YiTDAlOQMAUW8XoWVq jb2 [file] BSCgo+SuumsVAgpXlnTIUVWECtZORVOAOBY4J= ID Date Data Source [id number] 08/27/2019 08:36:16 AM EDT [facility] Name Value Range Interpretation Code Description Data Adilene rce(s) Supporting Document(s) &PDF [facility] RSFNAp8xZpMCMzRb28/EMHkhIUFph5SaLFxgSCk9PIxgKVFpA2RobJkvJYSGU4ISYppKCPOKXkKdFHC4 FcG [file] 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 [file] AgICAgICAgICAgICAgICAgICAgICAgICAgICAgICAgICAgICAgICAgICAgICAgICAgICANCiAgICAgIC AgICAgICAgICAgICAgICAgICAgICAgICAgICAgICAg ICAgICAgICAgICAgICAgICAgICAgICAgICAgICAgICAgICAgICAgICAgICAgICAgICAgICAgICAgICAg ICANCiAgICAgICAgICAgICAgICAgICAgICAgICAgICAgICAgICAgICAgICAgICAgICAgICAgICAgICAg ICAgICAgICAgICAgICAgICAgICAgICAgICAgICAgIC AgICAgICAgICAgICANCiAgICAgICAgICAgICAgICAgICAgICAgICAgICAgICAgICAgICAgICAgICAgIC AgICAgICAgICAgICAgICAgICAgICAgICAgICAgICAgICAgICAgICAgICAgICAgICAgICAgICANCiAgIC AgICAgICAgICAgICAgICAgICAgICAgICAgICAgICAg ICAgICAgICAgICAgICAgICAgICAgICAgICAgICAgICAgICAgICAgICAgICAgICAgICAgICAgICAgICAg ICAgICANCiAgICAgICAgICAgICAgICAgICAgICAgICAgICAgICAgICAgICAgICAgICAgICAgICAgICAg ICAgICAgICAgICAgICAgICAgICAgICAgICAgICAgIC AgICAgICAgICAgICAgICANCiAgICAgICAgICAgICAgICAgICAgICAgICAgICAgICAgICAgICAgICAgIC AgICAgICAgICAgICAgICAgICAgICAgICAgICAgICAgICAgICAgICAgICAgICAgICAgICAgICAgICANCi AgICAgICAgICAgICAgICAgICAgICAgICAgICAgICAg ICAgICAgICAgICAgICAgICAgICAgICAgICAgICAgICAgICAgICAgICAgICAgICAgICAgICAgICAgICAg ICAgICAgICANCiAgICAgICAgICAgICAgICAgICAgICAgICAgICAgICAgICAgICAgICAgICAgICAgICAg ICAgICAgICAgICAgICAgICAgICAgICAgICAgICAgIC AgICAgICAgICAgICAgICAgICANCiAgICAgICAgICAgICAgICAgICAgICAgICAgICAgICAgICAgICAgIC AgICAgICAgICAgICAgICAgICAgICAgICAgICAgICAgICAgICAgICAgICAgICAgICAgICAgICAgICAgIC ANCjw/eXUwR6fzvMXyouO0B6bqIm4YHa0QBF1lm4Ci NJSnSTybooKnYetGZyBiSYGgAxqFRij4KPthPV8WnSPnJ4YxZ9NpUFotAV7LXTHwDIYheKOzIPJtNHLw BuC4JRIoGFxmTT0ZoKIvKSfpJAKvWZMfIsExZHMfWSPcYXSfHV0ADZHiN561jbSaKk3QDu8TFhOnAE8j ao5JFsdsMDBrGrlHKla1YPwbKO7YdHSwiAFxULPcVC VLTgLbO8pdr4VzAasaXCFUKUawYO0Yy5AfnVDkRGd+Ru5JMM7xr6DsWFlsUGXfEA0hfj2KMJnEFeYcH7 XwbDeaIAkwwNyglpCgAT3VETOrJAIrjJKfDGtkGBLXHY5QPHecKOX4MNsynvMxvYXsRVpcLV1RARGydu QgMjcgMCBSDQo+Kj3KEB4bi6LyVAzjFYQwLM4pzz4S UGwDLgJwR8Q6rOAmI4Z2MVxcBj1QKUVcHCDeFaVbUCJILTgdSV9GPD0jxxI4NR2HbGMoTQMaNKPofDPy VBs6L56fvYZkGKuyVP0UEMV+Kali+Oj2ZIEMhQYQbVLKaTuZqNDZRFdElD6IbK2ZVa3LtQ9FwDZ59yErb nfThSUhlHE4VCN0lEIWlFQBAPJ8HkSBgnQ8ykmWhLt BqIRRLFoZmJ17iwUOvDDKzTDN4WOLvIw2CQWWjE0EbmhKfmGngmcXqZQKlSWNTDE8ZPZzkknMwmVBwpU ytVK33aBqsWP1XIw3ZUdAgHV9nxr3BqRRePz7TNTTqOQ4FZSIiTXJvWLDeSOC2RCVeNiVtZFhoAJEnBB JnKAN3IOKmSULqFT9GEkWqHVKmBHNkVwWwUWPeYDDk ic6YSBIaQMM6Xfa1AGLiKUSbYPAgTVhsBTBkKIQjQRcfCUIiIGTxHX1AFgSnSTZxIVH6BoXfDKOxVYBp tj6NOOVaAPBaTnXoIkAhSVSfJKCnXUbfHTVnRIV7BnL7QCXhMROeTT1GOfXzVXRcVYK6BCFtJWSzCXQq uk4WAIGcPNMnDeO6LCMjULGnOOXbPAxuIJWuGMF0Yr A5HAWkLUZqPS8ALxGjWBNzNBvmDZJeSBQhIMXgfd3VICRfYKFjMPUsLyCrHHZsREQySNdqFTKcDNM7YK w3EJVmLCZhMS3JSgKtISXdJXd2YIMwMZUcQNYbif0DZMStBVVnGZz5QrGsDMZcYMDtEUnbSVItOZI2YC W9PTIvDHEmTN4DSbOmCVJnGHO5CLDkSXIyVPKvts1W STVkBYEnXQDiPmOqKPXmTJUyKVrbMHOvBEH5AgP1GYWzBPWeIB2BNkEwKQXcDRQ1VUhyZWTmNWEayu9L LZHbCWTuHWaaPmRiMXQaVCIeDTbfPCUjEPO9KHDoLBWmXYSqBI0OPbLlGFFwUhHeKBYjTQHsESJshy5L BGThMVZiJhW5PxKjCUZzDMZfCSjzBCUlONTnGAQvBM DnWVPxYE0UYhCwSLAvOTY9PBnpIHNgAYEswx9QSEDhEAL5NEQ3DTSaNFFvNXRbWGuvQMFwDHP3ZJI8RV ZoELVuFM9LGcOzARAwLQUfPcicBJJgADGtir7MuAKweMgxpg7MHNgSDf2HsTyeALRqAGnpWn9uzYDjTE OgJCECOd0WbjFbHBBwMNZMSLliPXEzOMVbPKO1Yqkc INMwVJT4HjWzAkFuRlP7XSR9UNysZZCgNqA3UpRsGTUfIVXnUyP3KIDhVPC2HXJqIFBwOCKpDxDhZOJ+ YG5qPVp+Ud8Xy7DkpaM8erEwWOf9DEX4Cu3FXDTLK1OOYn== ID Date Data Source [id number] 08/27/2019 08:43:03 AM EDT [facility] NT INFORMATIONPatient MRN Name Date of Age Gend*PT [id number] Manju Paz 1950 69 years F HOPPT Location Admission Date/Time Visit ID Attending [id number] 08/27/19 0606 --- Sandra Oliva MD([id number]) EPI ID CSN Admitting Provider [id number] Sandra Oliva MD([id number])The patient is a 69-year-old woman with multiple [...] rce(s) Supporting Document(s) ID Date Data Source [id number] 08/27/2019 07:26:36 AM EDT [facility] Name Value Range Interpretation Code Description Data Adilene rce(s) Supporting Document(s) POC NOVA GLU 252 mg/dL (70-99) H Lab [facility] PERFORMED BY [facility] CLINICAL STAFF ID Date Data Source [id number] 08/24/2019 09:05:00 AM EDT [facility] Name Value Range Interpretation Code Description Data Adilene rce(s) Supporting Document(s) SARS CORONAVIRUS 2 RNA [facility] This lab was ordered by [facility] and reported by [facility]. ID Date Data Source [id number] 08/25/2019 12:07:46 PM EDT [facility] Name Value Range Interpretation Code Description Data Adilene rce(s) Supporting Document(s) SARS-COV-2 SUZANNA [facility] Not DetectedReference range: Not Detecte d Testing was performed using the marie(R) SARS-CoV-2 test. This test was developed and its performance characteristics determined by [employer]. This test has not been FDA cleared [...] detected) result in this assay. Performed At: Lab[address] [id number] Rm Ott MD Ph:[phone] ID Date Data Source [id number] 08/14/2019 05:15:00 PM EDT [facility] ([facility]) Name Value Range Interpretation Code Description Data Adilene rce(s) Supporting Document(s) Glucose 141 [facility] Blood Urea Nitrogen 20 [facility] ([facility] Creatinine 1.27 [facility] ([facility]) Glomerular filtration rate/1.73 sq M.pre dicted [Volume [...] Dioxide 29 [facility] ([facility]) Albumin 4.0 [facility] ([facility] ID Date Data Source [id number] 08/14/2019 05:15:00 PM EDT [facility] ([facility]) Name Value Range Interpretation Code Description Data Adilene rce(s) Supporting Document(s) White Blood Count 5.9 [facility] ([facility]) Red Blood Count 4.11 [facility] ([facility]) Hematocrit 35.8 [facility] ([facility]) Hemoglobin 11.7 [facility] ([facility]) Platelets 279 [facility] ID Date Data Source [id number] 06/26/2019 11:01:00 AM EDT [facility] ([facility]) Name Value Range Interpretation Code Description Data Adilene rce(s) Supporting Document(s) Hemoglobin A1c/Hemoglobin.total in Blood 9.2 [facility] ([facility]) ID Date Data Source [id number] 06/26/2019 11:01:00 AM EDT [facility] ([facility]) Name Value Range Interpretation Code Description Data Adilene rce(s) Supporting Document(s) Alanine aminotransferase [Enzymatic activity/volume] in Serum or Pl asma 35 [facility] ([facility]) Albumin [Mass/volume] in Serum or Plasma 4.1 [facility] ([facility]) Chloride [Moles/volume] in Serum or Plasma 100 [facility] ([facility]) Carbon dioxide, total [Moles/volume] in Serum or Plasma 29 [facility] ([facility]) Calcium [Mass/volume] in Serum or Plasma 9.9 [facility] ([facility]) Protein [Mass/volume] in Serum or Plasma 7.1 [facility] ([facility]) Potassium [Moles/volume] in Serum or Plasma 3.9 [facility] ([facility]) Alkaline phosphatase [Enzymatic activity/volume] in Serum or Plasma 6 3 [facility] ([facility]) Urea nitrogen [Mass/volume] in Serum or Plasma 28 [facility] ([facility]) Sodium 137 [facility] ([facility]) Aspartate aminotransferase [Enzymatic activity/volume] in Serum or Plasma 23 [facility] ([facility]) Glucose 225 70-100 [facility] ([facility]) Creatinine For GFR 1.19 [facility] ([facility]) ID Date Data Source [id number] 06/26/2019 11:01:00 AM EDT [facility] ([facility]) Name Value Range Interpretation Code Description Data Adilene rce(s) Supporting Document(s) Cholesterol 158 [facility] ([facility]) Triglycerides 258 [facility] ([facility]) Cholesterol in LDL [Mass/volume] in Serum or Plasma by calculation 65 [facility] ([facility]) HDL 41 [facility] ([facility]) Chol/HDL Ratio 3.853 [facility] ([facility]) ID Date Data Source [id number] 06/05/2019 01:22:08 PM EDT [facility] Measurements & CalculationsHeight: 65 inches (5 [...] (ER) or urgent care clinic? Yes - [facility] diarrehaEmergency room (ER) or urgent care date reported today: 05/24/2019Have you seen another healthcare provider? Yes - Dr. Jimenez, Manager [employer] and pulmHave you seen a dentist? NoRate [...] Denies fevers, vomiting, blood in stool. 05/24/2019 [facility] ER stool GI panel was positive [...] her home due to assisted living coronavirus quarentine, she is unable to walk the halls with her friends or visit other areas of the facility. 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 Again, this would be for more detailed care in regards to her frequent ER visits, poorly controlled diabetes, physical deconditioning which does make her a fall risk.Assessed:Edema, unspecified (DWI93-B45.9) Assessment: Instructions: Please have your daughter let me know what specific [place] office you went to previously for your [...] or 2) looking into switching to the correction side of [facility] (or patient questioned going elsewhere). Again, this would be for more detailed care in regards to her frequent ER visits, poorly controlled diabetes, physical deconditioning which does make her a fall risk.Edema- unspecified: Please have your daughter let me know what specific [place] office you went to previously for your desired compression socks. If she recalls where it was, I will do my best to write for them again. Plan developed in collaboration with patient and/or familyMedications:AUTOLET LANCING [id number] BLOOD GLUCOSE TEST IN VITRO STRIPPHYSICAL THERAPY EVAL AND TREATSALINE MIST SPRAY 0.65 % NASAL SOLUTIONVITAMIN D3 50 MCG (1999 [place]) ORAL CAPSULELYRICA 100 MG ORAL CAPSULEVALSARTAN 40 MG ORAL TABLETOMEPRAZOLE 40 MG ORAL CAPSULE DELAYED RELEASEK-TAB 20 MEQ ORAL TABLET EXTENDED RELEASETYLENOL 8 HOUR ARTHRITIS PAIN 650 MG ORAL TABLET EXTENDED RELEASEELIQUIS 5 MG ORAL TABLETBD AUTOSHIELD DUO 30G X 5 [id number] BLOOD GLUCOSE SYSTEM W/DEVICE KITPRAVACHOL 40 MG [...] Refills: 0 Method: Print then Give to [id number] BLOOD GLUCOSE TEST IN VITRO STRIP-Test glucose QID and prn Qty: 300[Strip] Refills: 5 Method: ElectronicAUTOLET LANCING DEVICE- Test glucose QID and prn Qty: 300[Lancet] Refills: 5 Method: ElectronicChanged: To: GE100 BLOOD GLUCOSE SYSTEM W/DEVICE KITAllergies:METOPROLOL TARTRATE (METOPROLOL TARTRATE TABS) (Critical)* LATEX (Critical)* NYLON TAPE (Severe)* QUINOLONES (Moderate)MORPHINE SULFATE (MORPHINE SULFATE) (Mild)Orders:Adult - Ofc Vst, EST, Level III [[id number]] Follow-Up Return to clinic: in 4 weeks for follow upMedications:AUTOLET LANCING DEVICE (LANCET DEVICES) Test glucose QID and prn #300[Lancet] x 5 Route:IN VITRO Entered and Authorized by: Marcie PABLO Method used: Electronically to [facility] In* (retail) [address] [place] [address] Note to Pharmacy: Route: IN VITRO; Indications: HALF-WAY (CURRENT) USE OF INSULIN;TYPE 2 DIABETES MELLITUS WITHOUT COMPLICATIONS RxID: [id number] BLOOD GLUCOSE TEST IN VITRO STRIP (GLUCOSE BLOOD) Test glucose QID and prn #300[Strip] x 5 Route:IN VITRO Entered and Authorized by: Marcie PABLO Method used: Electronically to [facility], In* (retail) [address] [place] [address] Note to Pharmacy: Route: IN VITRO; Indications: HALF-WAY (CURRENT) USE OF INSULIN;TYPE 2 DIABETES MELLITUS WITHOUT COMPLICATIONS RxID: [id number] THERAPY EVAL AND TREAT as indicated 3x weekly x 6 weeks #1 x 0 Route:ORAL Entered and Authorized by: Marcie PABLO Method used: Print then Give to Patient Note to Pharmacy: Route: ORAL; Indications: PAIN IN RIGHT HIP RxID: [id number] THERAPY EVAL AND TREAT as indicated 3x weekly x 6 weeks #1 x 0 Route:ORAL Entered and Authorized by: Marcie PABLO Method used: Print then Give to Patient Note to Pharmacy: Route: ORAL; Indications: PAIN IN RIGHT HIP RxID: [id number] 250 MG ORAL TABLET (AZITHROMYCIN) Take 2 tablets po on day 1, then 1 tablet daily for 4 additional days #6[Tablet] x 0 Route:ORAL Entered and Authorized by: Marcie PABLO Method used: Electronically to [facility], In* (retail) [address] [place] [address] Ph: Note to Pharmacy: Route: ORAL; Indications: ENTERIC CAMPYLOBACTERIOSIS RxID: [id number] signed by Marcie PABLO on 06/11/2019 at 7:54 AM Name Value Range Interpretation Code Description Data Adilene rce(s) Supporting Document(s) ID Date Data Source [id number] 05/24/2019 05:35:00 PM EDT [facility] ([facility]) Name Value Range Interpretation Code Description Data Adilene rce(s) Supporting Document(s) Red Blood Count 3.95 4.00-5.40 [facility] ([facility] White Blood Count 5.5 4.0-10.0 [facility] ([facility]) Hematocrit 34.7 [facility] (Cardiology [facility]) Platelets 258 150-450 [facility] ([facility]) Hemoglobin 11.5 [facility] (Cardiology [facility]) ID Date Data Source [id number] 05/24/2019 05:35:00 PM EDT [facility] ([facility]) Name Value Range Interpretation Code Description Data Adilene rce(s) Supporting Document(s) Troponin Laboratory test result [facility] ([facility]) Magnesium Level 1.8 1.8-2.4 [facility] ([facility] Lipoprotein lipase [Enzymatic activity/volume] in Serum or Plasma 100 MEDENT ([facility]) ID Date Data Source [id number] 05/24/2019 05:35:00 PM EDT MEDENT ([facility]) Name Value Range Interpretation Code Description Data Adilene rce(s) Supporting Document(s) CPK-MB 2.1 MED[facility] ([facility]) Creatine kinase [Enzymatic activity/volume] in Serum or Plasma 129 MEDENT ([facility]) ID Date Data Source [id number] 05/24/2019 05:35:00 PM EDT [facility] Name Value Range Interpretation Code Description Data Adilene rce(s) Supporting Document(s) Alanine aminotransferase [Enzymatic activity/volume] in Serum or Pl asma 38 MEDENT ([facility]) Albumin [Mass/volume] in Serum or Plasma 3.4 MEDENT ([facility]) Alkaline phosphatase [Enzymatic activity/volume] in Serum or Plasma 5 7 MEDENT ([facility]) Chloride [Moles/volume] in Serum or Plasma 104 MEDENT ([facility]) Calcium [Mass/volume] in Serum or Plasma 8.5 MEDENT ([facility]) Carbon dioxide, total [Moles/volume] in Serum or Plasma 29 MEDENT ([facility]) Potassium [Moles/volume] in Serum or Plasma 3.3 MEDENT ([facility]) Sodium 138 MEDENT ([facility] Protein [Mass/volume] in Serum or Plasma 6.2 MEDENT ([facility]) Glucose 263 83-110 MED[facility] ([facility]) Creatinine For GFR 1.37 MEDENT ([facility]) Aspartate aminotransferase [Enzymatic activity/volume] in Serum or Plasma 21 MED[facility] ([facility]) Urea nitrogen [Mass/volume] in Serum or Plasma 21 MEDENT ([facility]) ID Date Data Source [id number] 05/24/2019 02:04:44 PM EDT [facility] Measurements & CalculationsHeight: 65 inches (5 [...] been admitted to the hospital? Yes - [facility] syncope and dyspneaHospital admission date reported today: [...] for dyspnea and syncope.Pt was admitted to [facility] 05/07[facility]19-05/09/19 for dyspnea. 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 (ICD-V58.67) (ICD10- Z79.4)Assessed:Type 2 diabetes mellitus without complications (HXI67-V92.9) A ssessment: Instructions: Poor control over her [...] soda and sugary foods.Acute right heart failure (DCH65-C85.811) Assessment: Instructions: Recommend oupatient cardiac consult for evaluation of her constant breathlessness.Bleeding from nose (ICD-784.7) (IHN02-J55.0) Assessment: Instructions: Start saline nasal spray as [...] 0.65 % NASAL SOLUTIONVITAMIN D3 50 MCG (2000 UT) ORAL CAPSULELYRICA 100 MG ORAL CAPSULEVALSARTAN [...] ORAL LYRICA 75 MG ORAL CAPSULE Qty: [id number] Refills: 60[Capsule] To: LYRICA 100 MG ORAL CAPSULE-Take 1 capsule PO BID Qty: 60[Capsule] Refills: 3Allergies:METOPROLOL TARTRATE (METOPROLOL TARTRATE TABS) (Critical)* LATEX (Critical)* NYLON TAPE (Severe)* QUINOLONES (Moderate)MORPHINE SULFATE (MORPHINE SULFATE) (Mild)Orders:Endocrinology Consult [CPT-70914] Cardiology Consult [CPT-80974] Adult - Ofc Vst, EST, Level III [CPT-80908] Follow-Up Return to clinic: in 4-6 weeks for follow upAdditional Follow-Up: referral follow-upClinical Visit Summary DeclinedMedications:LYRICA 100 MG ORAL CAPSULE (PREGABALIN) Take 1 capsule PO BID #60[Capsule] x 3 Route:ORAL Entered and Authorized by: Marcie PABLO Method used: Electronically to [facility], In* (retail) [address] [place] [address] Ph: [phone] Note to Pharmacy: Route: ORAL; Indica tions: CHRONIC PAIN RxID: [id number]] Name Value Range Interpretation Code Description Data Adilene rce(s) Supporting Document(s) ID Date Data Source [id number] 05/08/2019 05:38:00 PM EST MEDENT ([facility]) Name Value Range Interpretation Code Description Data Adilene rce(s) Supporting Document(s) Troponin Laboratory test result MEDENT ([facility]) ID Date Data Source [id number] 05/08/2019 05:38:00 PM EST MEDENT ([facility]) Name Value Range Interpretation Code Description Data Adilene rce(s) Supporting Document(s) CPK-MB 4.6 [facility] ([facility]) Creatine kinase [Enzymatic activity/volume] in Serum or Plasma 275 [facility] ([facility]) ID Date Data Source [id number] 04/19/2019 08:25:00 AM EST [facility] Name Value Range Interpretation Code Description Data Adilene rce(s) Supporting Document(s) APPEARANCE U CLEAR CLEAR N [facility] SPEC GR URIN 1.011 1.002-1.035 N [facility] UA COLOR YELLOW YELLOW N [facility] ID Date Data Source [id number] 04/18/2019 02:30:00 PM EST [facility] Name Value Range Interpretation Code Description Data Adilene rce(s) Supporting Document(s) HCT 37.4 % 36.0-47.0 N [facility] HGB 12.6 g/dL 12.0-15.5 N [facility] Family [facility] MCH 33.7 G/DL pg 32.0-36.[address] [facility] MCHC 29.3 PG % 27.0-33.0 N [facility] PLATELETS 286 10 10*3/mm3 150-450 N [facility] RBC 4.30 10 10*6/mm3 4.00-5.40 N [facility] RDW 12.7 % 11.5-14.5 N [facility] WBC TOTAL 9.4 4.0-10.0 N [facility] ID Date Data Source [id number] 04/18/2019 02:30:00 PM [facility] Name Value Range Interpretation Code Description Data Adilene rce(s) Supporting Document(s) BG FASTING 171 mg/dL 70-100 H [facility] ID Date Data Source [id number] 04/18/2019 01:25:11 PM [facility] Measurements & CalculationsHeight: 65 inches (5 [...] your sexual [facility]? NoSmoking, Tobacco or Smoke Exposure StatusSmoke [...] lives in the assisted living portion of [facility]. Pt states the nursing staff check her [...] during this visit, including review of any zift-dje-rigvgof medications, herbal therapies, and/or supplements.Allergy ReviewAllergy List [...] evaluate for possible bladder infection.Assessed:Acute diarrhea (ICD-787.91) (ALZ73-A82.7) Assessment: Instructions: Stool culture ordered. Sawyer diet, plenty of fluids. Labs drawn today to assess for dehydration and elevated white blood cell count. Hold fenofibrate until diarrhea free x 24 hours.Carpal tunnel syndrome of right wrist (FUO40-I02.01) Assessment: Instructions: Continue with surgery as scheduled ONLY if afebrile, diarrhea free, and feeling well for 24 hours prior to surgery.Assessment not Saved Acute diarrhea (HQL23-A31.7): Patient Instructions/Care Plan: Acute diarrhea: Stool culture ordered. Sawyer diet, plenty of fluids. Labs drawn today [...] (Moderate)MORPHINE SULFATE (MORPHINE SULFATE) (Mild)Orders:CBC W/DIFF [CPT- 31173] COMP METABOLIC PANEL [CPT-48487] Urinalysis-automated [CPT-83721] Urine Culture & Sensitivity [CPT-71721] URINALYSIS [CPT-68824] GI Panel - Stool [CPT- 77507] 78617 - Venipuncture [CPT-29587] Adult - Ofc Vst, EST, Level III [CPT- 56990] Follow-Up Return to clinic: in 1 month [...] rce(s) Supporting Document(s) ID Date Data Source [id number] 04/03/2019 03:46:52 PM [facility] Measurements & CalculationsHeight: 65 inches 165.10 [...] visit...Have you been admitted to the hospital? No - [facility] stomach and bladder painsHospital admission date reported today: 11/08/2018Have you been to an emergency room (ER) or urgent care clinic? No - [facility] ER SOBEmergency room (ER) or urgent [...] she would like a script for cata schmidt History of Present Illness (HPI)Pt reports for sick visit today, presents unaccompanied, currently living at [facility].Diarrhea x 4 days with incontinence, currently goes 3-4 times daily. Denies sick contact or medication changes. Denies fevers. Denies dietary changes.Pt has nursing staff administer her medications and check her glucoses. She also brought meal plans from [facility], scanned into chart, and states she [...] FairAssessment & Plan Problems:Added: Acute diarrhea (ICD-787.91) (LZR11-P47.7) Assessment: Instructions: Improved at this time. If diarrhea returns, please call for stool study to test for infection.Carpal tunnel syndrome of right wrist (JMW65-M83.01) Assessment: Instructions: Continue per orthopedics.Assessed:Type 2 diabetes [...] * GABAPENTIN 100MG-1 po qd, * D3-50 59049 UNITS-5000 po every monday, VITAMIN D2 TABLET- take 2 tabs of 1.25mg weekly, * PRAVASTATIN SODIUM 40 MG-1 tablet po qd, * VOLTAREN GEL 1%-as directed topically 3 x per day to joints of hands for pain, KLOR-CON 20 MEQ ORAL PACKET-1 paket po qd Qty: 30[Packet] Refills: 5, HUMALOG KWIKPEN 100 UNIT/ML SUBCUTANEOUS SOLUTION BRF-YYVGTHHF-2 units SQ for FSBS 100- 150 then [...] prnOrders:Adult - Ofc Vst, EST, Level III [CPT-84510] Follow-Up Return to clinic: in 2 weeks for diabetesMedications:Cancelled POLYETHYLENE GLYCOL 3350 ORAL POWDER (POLYETHYLENE GLYCOL 3350) 1 capful with large glass of water qd prn constipation #1[Container] x 5 Entered by: Marcie PABLO Authorized by: Tami Hernández MD Method used: Electronically to [facility], In* (retail) [address] [place] [address] RxID: [id number] HUMALOG KWIKPEN 100 UNIT/ML SUBCUTANEOUS SOLUTION PEN- INJECTOR (INSULIN LISPRO) 2 units SQ for FSBS 100-150 then per sliding scale/ MD instructions. MDD 50 units #5[Prefilled Pen Syrnge] x 5 Route:SUBCUTANEOUS Entered by: Marcie PABLO Authorized by: Ella COLON Method used: Electronically to [facility], In* (retail) [address] [place] [address] RxID: [id number] KLOR-CON 20 MEQ ORAL PACKET (POTASSIUM CHLORIDE) 1 paket po qd #30[Packet] x 5 Entered by: Marcie PABLO Authorized by: Tami Hernández MD Method used: Electronically to [facility], In* (retail) [address] [place] [address] Fax: RxID: [id number] signed by Marcie PABLO on 04/10/2019 at 8:19 AM Name Value Range Interpretation Code Description Data Adilene rce(s) Supporting Document(s) ID Date Data Source [id number] 04/02/2019 12:15:45 PM EST [facility], PCName: Manjuthuy CollinsB: 2Provider: Sari Lopez: 03/22/2019 History of Present [...] document was dictated and electronically signed using Keego software. A reasonable attempt at proof reading has been made to minimize errors. Please call with any questions. Signatures Electronically signed by : Harry Lopez M.D.; Apr 02 2019 12:15PM EST (Author) Name Value Range Interpretation Code Description Data Adilene rce(s) Supporting Document(s) Procedure Social History Code Duration Value Status Description Data Source(s ) Smoking 04/30/2020 12:00:00 AM EST Former Smoker completed Former Smoker eCW1 ([facility]) Smoking 04/22/2020 12:00:00 AM EST Former Smoker completed Former Smoker eCW1 ([facility]) Smoking 04/22/2020 12:00:00 AM EST Former Smoker completed Former Smoker eCW1 ([facility]) Smoking 04/22/2020 12:00:00 AM EST Former Smoker completed Former Smoker eCW1 ([facility]) Smoking 04/22/2020 12:00:00 AM EST Former Smoker completed Former Smoker eCW1 ([facility]) Smoking 04/08/2020 12:00:00 AM EST Former Smoker completed Former Smoker eCW1 ([facility]) Smoking 04/08/2020 12:00:00 AM EST Former Smoker completed Former Smoker eCW1 ([facility]) Smoking 03/24/2020 12:00:00 AM EST Former Smoker completed Former Smoker eCW1 ([facility]) Smoking 03/24/2020 12:00:00 AM EST Former Smoker completed Former Smoker eCW1 ([facility]) Smoking 03/24/2020 12:00:00 AM EST Former Smoker completed Former Smoker eCW1 ([facility]) Smoking 02/27/2020 12:00:00 AM EST Former Smoker completed Former Smoker eCW1 ([facility]) Smoking 02/27/2020 12:00:00 AM EST Former Smoker completed Former Smoker eCW1 ([facility]) Smoking 02/27/2020 12:00:00 AM EST Former Smoker completed Former Smoker eCW1 ([facility]) Smoking 02/27/2020 12:00:00 AM EST Former Smoker completed Former Smoker eCW1 ([facility]) Smoking 02/27/2020 12:00:00 AM EST Former Smoker completed Former Smoker eCW1 ([facility]) Smoking 02/27/2020 12:00:00 AM EST Former Smoker completed Former Smoker eCW1 ([facility]) Smoking 02/27/2020 12:00:00 AM EST Former Smoker completed Former Smoker eCW1 ([facility]) Smoking 02/21/2020 12:00:00 AM EST Former Smoker completed Former Smoker eCW1 ([facility]) Smoking 01/07/2020 12:00:00 AM EDT Former Smoker completed Former Smoker eCW1 ([facility]) Smoking 01/07/2020 12:00:00 AM EDT Former Smoker completed Former Smoker eCW1 ([facility]) Smoking 01/07/2020 12:00:00 AM EDT Former Smoker completed Former Smoker eCW1 ([facility]) Smoking 01/07/2020 12:00:00 AM EDT Former Smoker completed Former Smoker eCW1 ([facility]) Smoking 01/07/2020 12:00:00 AM EDT Former Smoker completed Former Smoker eCW1 ([facility]) Smoking 01/07/2020 12:00:00 AM EDT Former Smoker completed Former Smoker eCW1 ([facility]) Smoking 01/07/2020 12:00:00 AM EDT Former Smoker completed Former Smoker eCW1 ([facility]) Smoking 01/07/2020 12:00:00 AM EDT Former Smoker completed Former Smoker eCW1 ([facility]) Smoking 01/07/2020 12:00:00 AM EDT Former Smoker completed Former Smoker eCW1 ([facility]) Smoking 01/07/2020 12:00:00 AM EDT Former Smoker completed Former Smoker eCW1 ([facility]) Smoking 01/07/2020 12:00:00 AM EDT Former Smoker completed Former Smoker eCW1 ([facility]) Smoking 01/07/2020 12:00:00 AM EDT Former Smoker completed Former Smoker eCW1 ([facility]) Smoking 12/12/2019 12:00:00 AM EDT - 03/13/2007 12:00:00 AM EST Patient is a former smoker completed Patient is a former smoker MEDENT ([facility], ) Smoking 10/16/2019 12:00:00 AM EDT Patient is a former smoker completed Patient is a former smoker MEDENT ([facility]) Alcohol intake 08/27/2019 12:00:00 AM EDT Not Currently completed [facility] Cigarettes smoked current (pack per day) - Reported 08/27/19 20 12:00:00 AM EDT UNK completed [facility] Smoking 08/27/2019 12:00:00 AM EDT Former smoker completed Former smoker [facility] Smoking 08/13/2019 12:00:00 AM EDT Patient is a former smoker completed Patient is a former smoker [facility] ([facility]) Smoking 07/16/2019 12:00:00 AM EDT Former Smoker completed Former Smoker eCW1 ([facility]) Smoking 07/16/2019 12:00:00 AM EDT Former Smoker completed Former Smoker eCW1 ([facility]) Smoking 07/16/2019 12:00:00 AM EDT Former Smoker completed Former Smoker eCW1 ([facility]) Smoking 07/16/2019 12:00:00 AM EDT Former Smoker completed Former Smoker eCW1 ([facility]) Smoking 07/16/2019 12:00:00 AM EDT Former Smoker completed Former Smoker eCW1 ([facility]) Smoking 07/16/2019 12:00:00 AM EDT Former Smoker completed Former Smoker eCW1 ([facility]) Smoking 07/16/2019 12:00:00 AM EDT Former Smoker completed Former Smoker eCW1 ([facility]) Smoking 07/16/2019 12:00:00 AM EDT Former Smoker completed Former Smoker eCW1 ([facility]) Smoking 07/16/2019 12:00:00 AM EDT Former Smoker completed Former Smoker eCW1 ([facility]) Smoking 07/16/2019 12:00:00 AM EDT Former Smoker completed Former Smoker eCW1 ([facility]) Vital Signs ID Date Data Source UNK Name Value Range Interpretation Code Description Data Source(s) Diastolic blood pressure 50 mm[Hg] 50 mm[Hg] eCW1 ([facility]) Systolic blood pressure 148 mm[Hg] 148 mm[Hg] e CW1 ([facility]) Body temperature 97.6 [degF] 97.6 [degF] eCW1 ( [facility]) Respiratory rate 18 /min 18 /min eCW1 ([facility]) Heart rate 76 /min 76 /min eCW1 ([facility]) Body mass index (BMI) [Ratio] 51.08 kg/m2 51.08 kg/m2 W1 ([facility]) Body height 65 [in_i] 65 [in_i] eCW1 ([facility]) Body weight 307 [lb_av] 307 [lb_av] eCW1 ([facility]) Body mass index (BMI) [Ratio] 59.0 kg/m2 59.0 k g/m2 MEDENT ([facility] ) Body weight 302.00 [lb_av] 302.00 [lb_av] MEDEN T ([facility] ) Body height 60 [in_i] 60 [in_i] MEDENT ([facility] ) 5'0" Body temperature 96.8 [degF] 96.8 [degF] MEDENT ([facility] ) Diastolic blood pressure 70 mm[Hg] 70 mm[Hg] eCW1 ([facility]) Systolic blood pressure 144 mm[Hg] 144 mm[Hg] e CW1 ([facility]) Body temperature 97.9 [degF] 97.9 [degF] eCW1 ( [facility]) Respiratory rate 20 /min 20 /min eCW1 ([facility]) Heart rate 84 /min 84 /min eCW1 ([facility]) Body mass index (BMI) [Ratio] 50.32 kg/m2 50.32 kg/m2 eCW1 ([facility]) Body height 65 [in_i] 65 [in_i] eCW1 ([facility]) Body weight 302.4 [lb_av] 302.4 [lb_av] eCW1 ([facility]) Diastolic blood pressure 64 mm[Hg] 64 mm[Hg] eCW1 ([facility]) Systolic blood pressure 110 mm[Hg] 110 mm[Hg] e CW1 ([facility]) Body temperature 97.0 [degF] 97.0 [degF] eCW1 ( [facility]) Respiratory rate 18 /min 18 /min eCW1 ([facility]) Heart rate 83 /min 83 /min eCW1 ([facility]) Body mass index (BMI) [Ratio] 49.75 kg/m2 49.75 kg/m2 eCW1 ([facility]) Body height 65 [in_i] 65 [in_i] eCW1 ([facility]) Body weight 299 [lb_av] 299 [lb_av] eCW1 ([facility]) Diastolic blood pressure 62 mm[Hg] 62 mm[Hg] eCW1 ([facility]) Systolic blood pressure 112 mm[Hg] 112 mm[Hg] e CW1 ([facility]) Body temperature 98.0 [degF] 98.0 [degF] eCW1 ( [facility]) Respiratory rate 18 /min 18 /min eCW1 ([facility]) Heart rate 93 /min 93 /min eCW1 ([facility]) Body mass index (BMI) [Ratio] 49.09 kg/m2 49.09 kg/m2 eCW1 ([facility]) Body height 65 [in_i] 65 [in_i] eCW1 ([facility]) Body weight 295 [lb_av] 295 [lb_av] eCW1 ([facility]) Diastolic blood pressure 62 mm[Hg] 62 mm[Hg] eCW1 ([facility]) Systolic blood pressure 138 mm[Hg] 138 mm[Hg] e CW1 ([facility]) Body temperature 96.9 [degF] 96.9 [degF] eCW1 ( [facility]) Respiratory rate 20 /min 20 /min eCW1 ([facility]) Heart rate 91 /min 91 /min eCW1 ([facility]) Body mass index (BMI) [Ratio] 49.68 kg/m2 49.68 kg/m2 eCW1 ([facility]) Body height 65 [in_i] 65 [in_i] eCW1 ([facility]) Body weight 298.6 [lb_av] 298.6 [lb_av] eCW1 ([facility]) Diastolic blood pressure 70 mm[Hg] 70 mm[Hg] eCW1 ([facility]) Systolic blood pressure 122 mm[Hg] 122 mm[Hg] e CW1 ([facility]) Body temperature 97.5 [degF] 97.5 [degF] eCW1 ( [facility]) Respiratory rate 18 /min 18 /min eCW1 ([facility]) Heart rate 88 /min 88 /min eCW1 ([facility]) Body mass index (BMI) [Ratio] 48.52 kg/m2 48.52 kg/m2 eCW1 ([facility]) Body height 65 [in_i] 65 [in_i] eCW1 ([facility]) Body weight 291.6 [lb_av] 291.6 [lb_av] eCW1 ([facility]) Diastolic blood pressure 70 mm[Hg] 70 mm[Hg] eCW1 ([facility]) Systolic blood pressure 122 mm[Hg] 122 mm[Hg] e CW1 ([facility]) Body temperature 97.5 [degF] 97.5 [degF] eCW1 ( [facility]) Respiratory rate 18 /min 18 /min eCW1 ([facility]) Heart rate 88 /min 88 /min eCW1 ([facility]) Body mass index (BMI) [Ratio] 48.52 kg/m2 48.52 kg/m2 eCW1 ([facility]) Body height 65 [in_i] 65 [in_i] eCW1 ([facility]) Body weight 291.6 [lb_av] 291.6 [lb_av] eCW1 ([facility]) [place] body weight 120 [lb_av] 120 [lb_av] MEDEN T ([facility], ) Body height 64 [in_i] 64 [in_i] MEDENT ([facility], ) 5'4" Oxygen saturation in Arterial blood by Pulse oximetry 95 % 95 % [facility] ([facility], ) Room Air Heart rate 73 /min 73 /min [facility] ([facility], ) Diastolic blood pressure 70 mm[Hg] 70 mm[Hg] [facility] ([facility], ) Systolic blood pressure 118 mm[Hg] 118 mm[Hg] M EDENT ([facility], ) Body mass index (BMI) [Ratio] 46.5 kg/m2 46.5 k g/m2 MEDENT ([facility]) Body weight 288.00 [lb_av] 288.00 [lb_av] MEDEN T ([facility]) Body height 66 [in_i] 66 [in_i] MEDENT ([facility]) 5'6" Body temperature 97.7 [degF] 97.7 [degF] [facility] ([facility]) Oxygen saturation in Arterial blood by Pulse oximetry 95 % 95 % [facility] Respiratory rate 18 /min 18 /min Health system Body temperature 36.39 Claudia 36.39 [facility] Heart rate 73 /min 73 /min [facility] Diastolic blood pressure 70 mm[Hg] 70 mm[Hg] [facility] Systolic blood pressure 149 mm[Hg] 149 mm[Hg] S [facility] Body mass index (BMI) [Ratio] 46.33 kg/m2 46.33 kg/m2 [facility] Body weight 130.2 kg 130.2 kg [facility] Body height 167.6 cm 167.6 cm [facility] Diastolic blood pressure--sitting 55 mm[Hg] 55 mm[Hg] MEDENT ([facility]) CBP large cuff, Ra Systolic blood pressure--sitting 115 mm[Hg] 115 mm[Hg] MEDENT ([facility]) CBP large cuff, Ra Heart rate 65 /min 65 /min MED[facility] ([facility]) Body mass index (BMI) [Ratio] 45.7 kg/m2 45.7 k g/m2 MEDENT ([facility]) Body height 66 [in_i] 66 [in_i] MEDENT ([facility]) 5'6" Body weight 283.00 [lb_av] 283.00 [lb_av] MEDEN T ([facility]) Body surface area Derived from formula 2.26 m2 2.26 m2 [facility] ([facility], ) Body weight 127.008 kg 127.008 kg [facility] ([facility]) [place] body weight 120 [lb_av] 120 [lb_av] MEDEN T ([facility]) Body mass index (BMI) [Ratio] 48.1 kg/m2 48.1 k g/m2 [facility] ([facility]) Body weight 280.00 [lb_av] 280.00 [lb_av] MEDEN T ([facility]) Body height 64 [in_i] 64 [in_i] [facility] ([facility]) 5'4" Diastolic blood pressure 69 mm[Hg] 69 mm[Hg] [facility] ([facility]) Systolic blood pressure 131 mm[Hg] 131 mm[Hg] M EDENT ([facility], ) Body temperature 96.8 [degF] 96.8 [degF] [facility] ([facility], ) Oxygen saturation in Arterial blood by Pulse oximetry 96 % 96 % [facility] ([facility]) Room Air Heart rate 80 /min 80 /min [facility] ([facility]) Diastolic blood pressure 80 mm[Hg] 80 mm[Hg] [facility] ([facility]) Systolic blood pressure 126 mm[Hg] 126 mm[Hg] M EDENT ([facility]) Body weight 127.462 kg 127.462 kg [facility] ([facility]) Body mass index (BMI) [Ratio] 48.2 kg/m2 48.2 k g/m2 [facility] ([facility]) Body weight 281.00 [lb_av] 281.00 [lb_av] MEDEN T ([facility]) Body height 64 [in_i] 64 [in_i] [facility] ([facility]) 5'4" Diastolic blood pressure 60 mm[Hg] 60 mm[Hg] eCW1 ([facility]) Systolic blood pressure 108 mm[Hg] 108 mm[Hg] e CW1 ([facility]) Body temperature 96.9 [degF] 96.9 [degF] eCW1 ( [facility]) Respiratory rate 20 /min 20 /min eCW1 ([facility]) Heart rate 88 /min 88 /min W1 ([facility]) Body mass index (BMI) [Ratio] 46.22 kg/m2 46.22 kg/m2 W1 ([facility]) Body height 65 [in_us] 65 [in_us] eCW1 ([facility]) Body weight Measured 277.8 [lb_av] 277.8 [lb_av ] eCW1 ([facility]) Body height 64 [in_i] 64 [in_i] [facility] ([facility]) 5'4" Oxygen saturation in Arterial blood by Pulse oximetry 95 % 95 % [facility] ([facility]) Room Air Heart rate 80 /min 80 /min [facility] ([facility]) Diastolic blood pressure 70 mm[Hg] 70 mm[Hg] [facility] ([facility] ) Systolic blood pressure 118 mm[Hg] 118 mm[Hg] M [facility]ENT ([facility], ) Diastolic blood pressure 56 mm[Hg] 56 mm[Hg] eCW1 ([facility]) Systolic blood pressure 106 mm[Hg] 106 mm[Hg] e CW1 ([facility]) Body temperature 97.6 [degF] 97.6 [degF] eCW1 ( [facility]) Respiratory rate 20 /min 20 /min eCW1 ([facility]) Heart rate 90 /min 90 /min eCW1 ([facility]) Body mass index (BMI) [Ratio] 45.82 kg/m2 45.82 kg/m2 eCW1 ([facility]) Body height 65 [in_us] 65 [in_us] eCW1 ([facility]) Body weight Measured 275.4 [lb_av] 275.4 [lb_av ] eCW1 ([facility]) Body weight 122.472 kg 122.472 kg [facility] ([facility], ) Body mass index (BMI) [Ratio] 46.3 kg/m2 46.3 k g/m2 [facility] ([facility], ) Body weight 270.00 [lb_av] 270.00 [lb_av] MEDEN T ([facility], ) Body height 64 [in_i] 64 [in_i] [facility] ([facility], ) 5'4" Diastolic blood pressure 62 mm[Hg] 62 mm[Hg] [facility] ([facility], ) Systolic blood pressure 132 mm[Hg] 132 mm[Hg] M [facility]ENT ([facility], ) Body mass index (BMI) [Ratio] 43.1 kg/m2 43.1 k g/m2 [facility] ([facility] ) Body weight 267.25 [lb_av] 267.25 [lb_av] [facility] T ([facility] ) Body height 66 [in_i] 66 [in_i] [facility] ([facility] ) 5'6" Body temperature 98.3 [degF] 98.3 [degF] [facility] ([facility]) Patient Treatment Plan of Care Planned Activity Planned Date Details Description Data Source (s) pregabalin 300 MG Oral Capsule [Lyrica] 03/24/2020 12:00:00 AM EST eCW1 ([facility]) Doxycycline Monohydrate 100 MG Oral Capsule 03/24/2020 12:00:00 AM EST eCW1 ([facility]) pregabalin 300 MG Oral Capsule [Lyrica] 03/24/2020 12:00:00 AM EST eCW1 ([facility]) Doxycycline Monohydrate 100 MG Oral Capsule 03/24/2020 12:00:00 AM EST eCW1 ([facility]) pregabalin 300 MG Oral Capsule [Lyrica] 03/24/2020 12:00:00 AM EST eCW1 ([facility]) Doxycycline Monohydrate 100 MG Oral Capsule 03/24/2020 12:00:00 AM EST eCW1 ([facility]) May Have - 02/27/2020 12:00:00 AM EST e CW1 ([facility]) pregabalin 50 MG Oral Capsule [Lyrica] 02/27/2020 12:00:00 AM EST eCW1 ([facility]) May Have - 02/27/2020 12:00:00 AM EST e CW1 ([facility]) pregabalin 50 MG Oral Capsule [Lyrica] 02/27/2020 12:00:00 AM EST eCW1 ([facility]) May Have - 02/27/2020 12:00:00 AM EST e CW1 ([facility]) pregabalin 50 MG Oral Capsule [Lyrica] 02/27/2020 12:00:00 AM EST eCW1 ([facility]) May Have - 02/27/2020 12:00:00 AM EST e CW1 ([facility]) pregabalin 50 MG Oral Capsule [Lyrica] 02/27/2020 12:00:00 AM EST eCW1 ([facility]) May Have - 02/27/2020 12:00:00 AM EST e CW1 ([facility]) pregabalin 50 MG Oral Capsule [Lyrica] 02/27/2020 12:00:00 AM EST eCW1 ([facility]) pregabalin 50 MG Oral Capsule [Lyrica] 02/27/2020 12:00:00 AM EST eCW1 ([facility]) May Have - 02/27/2020 12:00:00 AM EST e CW1 ([facility]) pregabalin 50 MG Oral Capsule [Lyrica] 02/27/2020 12:00:00 AM EST eCW1 ([facility]) May Have - 02/27/2020 12:00:00 AM EST e CW1 ([facility]) 60 ACTUAT Fluticasone propionate 0.1 MG/ ACTUAT / salmeterol 0.05 MG/ACTUAT Dry Powder Inhaler [Advair] 02/21/2020 12:00:00 AM EST eCW1 ([facility]) Insulin, Aspart, Human 100 UNT/ML Injectable Solution [NovoLog] 02/04/2020 12:00:00 AM EST eCW1 ([facility]) Insulin, Aspart, Human 100 UNT/ML Injectable Solution [NovoLog] 02/04/2020 12:00:00 AM EST eCW1 ([facility]) Insulin, Aspart, Human 100 UNT/ML Injectable Solution [NovoLog] 02/04/2020 12:00:00 AM EST eCW1 ([facility]) Insulin, Aspart, Human 100 UNT/ML Injectable Solution [NovoLog] 02/04/2020 12:00:00 AM EST eCW1 ([facility]) pregabalin 200 MG Oral Capsule [Lyrica] 12/20/2019 12:00:00 AM EDT eCW1 ([facility]) pregabalin 200 MG Oral Capsule [Lyrica] 12/20/2019 12:00:00 AM EDT eCW1 ([facility]) pregabalin 200 MG Oral Capsule [Lyrica] 12/20/2019 12:00:00 AM EDT eCW1 ([facility]) pregabalin 200 MG Oral Capsule [Lyrica] 12/20/2019 12:00:00 AM EDT eCW1 ([facility]) pregabalin 200 MG Oral Capsule [Lyrica] 12/20/2019 12:00:00 AM EDT eCW1 ([facility]) pregabalin 200 MG Oral Capsule [Lyrica] 12/20/2019 12:00:00 AM EDT eCW1 ([facility]) pregabalin 200 MG Oral Capsule [Lyrica] 12/20/2019 12:00:00 AM EDT eCW1 ([facility]) pregabalin 200 MG Oral Capsule [Lyrica] 12/20/2019 12:00:00 AM EDT eCW1 ([facility]) pregabalin 200 MG Oral Capsule [Lyrica] 12/20/2019 12:00:00 AM EDT eCW1 ([facility]) pregabalin 200 MG Oral Capsule [Lyrica] 12/20/2019 12:00:00 AM EDT eCW1 ([facility]) pregabalin 200 MG Oral Capsule [Lyrica] 12/20/2019 12:00:00 AM EDT eCW1 ([facility]) pregabalin 200 MG Oral Capsule [Lyrica] 12/20/2019 12:00:00 AM EDT eCW1 ([facility]) pregabalin 200 MG Oral Capsule [Lyrica] 12/20/2019 12:00:00 AM EDT eCW1 ([facility]) pregabalin 200 MG Oral Capsule [Lyrica] 12/20/2019 12:00:00 AM EDT eCW1 ([facility]) pregabalin 200 MG Oral Capsule [Lyrica] 12/20/2019 12:00:00 AM EDT eCW1 ([facility]) pregabalin 200 MG Oral Capsule [Lyrica] 12/20/2019 12:00:00 AM EDT eCW1 ([facility]) pregabalin 200 MG Oral Capsule [Lyrica] 12/20/2019 12:00:00 AM EDT eCW1 ([facility]) Acetaminophen 325 MG / Hydrocodone Bitartrate 5 MG Ora l Tablet 12/17/2019 12:00:00 AM EDT eCW1 ([facility]) Acetaminophen 325 MG / Hydrocodone Bitartrate 5 MG Ora l Tablet 12/17/2019 12:00:00 AM EDT eCW1 ([facility]) Acetaminophen 325 MG / Hydrocodone Bitartrate 5 MG Ora l Tablet 12/17/2019 12:00:00 AM EDT eCW1 ([facility]) Acetaminophen 325 MG / Hydrocodone Bitartrate 5 MG Ora l Tablet 12/17/2019 12:00:00 AM EDT eCW1 ([facility]) Acetaminophen 325 MG / Hydrocodone Bitartrate 5 MG Ora l Tablet 12/17/2019 12:00:00 AM EDT eCW1 ([facility]) Acetaminophen 325 MG / Hydrocodone Bitartrate 5 MG Ora l Tablet 12/17/2019 12:00:00 AM EDT eCW1 ([facility]) 3 ML Insulin, Aspart, Human 100 UNT/ML Pen Injector [N ovoLog] 09/11/2019 12:00:00 AM EDT eCW1 ([facility]) 3 ML Insulin, Aspart, Human 100 UNT/ML Pen Injector [N ovoLog] 09/11/2019 12:00:00 AM EDT eCW1 ([facility]) 3 ML Insulin, Aspart, Human 100 UNT/ML Pen Injector [N ovoLog] 09/11/2019 12:00:00 AM EDT eCW1 ([facility]) 3 ML Insulin, Aspart, Human 100 UNT/ML Pen Injector [N ovoLog] 09/11/2019 12:00:00 AM EDT eCW1 ([facility]) 3 ML Insulin, Aspart, Human 100 UNT/ML Pen Injector [N ovoLog] 09/11/2019 12:00:00 AM EDT eCW1 ([facility]) 3 ML Insulin, Aspart, Human 100 UNT/ML Pen Injector [N ovoLog] 09/11/2019 12:00:00 AM EDT eCW1 ([facility]) 3 ML Insulin, Aspart, Human 100 UNT/ML Pen Injector [N ovoLog] 09/11/2019 12:00:00 AM EDT eCW1 ([facility]) 3 ML Insulin, Aspart, Human 100 UNT/ML Pen Injector [N ovoLog] 09/11/2019 12:00:00 AM EDT eCW1 ([facility]) Cymbalta 60 MG 09/09/2019 12:00:00 AM EDT eCW1 ([facility]) Cymbalta 60 MG 09/09/2019 12:00:00 AM EDT eCW1 ([facility]) Cymbalta 60 MG 09/09/2019 12:00:00 AM EDT eCW1 ([facility]) Cymbalta 60 MG 09/09/2019 12:00:00 AM EDT eCW1 ([facility]) Cymbalta 60 MG 09/09/2019 12:00:00 AM EDT eCW1 ([facility]) Cymbalta 60 MG 09/09/2019 12:00:00 AM EDT eCW1 ([facility]) Cymbalta 60 MG 09/09/2019 12:00:00 AM EDT eCW1 ([facility]) Cymbalta 60 MG 09/09/2019 12:00:00 AM EDT eCW1 ([facility]) 24 HR Isosorbide Mononitrate 30 MG Extended Release Or al Tablet 08/23/2019 12:00:[facility] 12:00:00 AM EDT eCW1 [facility] 12:00:00 AM EDT eCW1 ([facility]) [facility] 12:00:00 AM EDT eCW1 ([facility]) [facility] 12:00:00 AM EDT eCW1 ([facility]) [facility] 12:00:00 AM EDT eCW1 ([facility]) [facility] - 08/09/2019 12:00:00 AM EDT eCW1 ([facility]) [facility] - 08/09/2019 12:00:00 AM EDT eCW1 ([facility]) [facility] - 08/09/2019 12:00:00 AM EDT eCW1 ([facility]) [facility] - 08/09/2019 12:00:00 AM EDT eCW1 ([facility]) [facility] - 08/09/2019 12:00:00 AM EDT eCW1 ([facility]) [facility] - 08/09/2019 12:00:00 AM EDT eCW1 ([facility]) 200 ACTUAT Albuterol 0.09 MG/ACTUAT Metered Dose Inhal er [ProAir] 08/07/2019 12:00:00 AM EDT eCW1 ([facility]) BD AutoShield Duo 30G X 5 MM 08/07/2019 12:00:00 AM EDT eCW1 ([facility]) BD AutoShield Duo 30G X 5 MM 08/07/2019 12:00:00 AM EDT eCW1 ([facility]) BD AutoShield Duo 30G X 5 MM 08/07/2019 12:00:00 AM EDT eCW1 ([facility]) BD AutoShield Duo 30G X 5 MM 08/07/2019 12:00:00 AM EDT eCW1 ([facility]) valsartan 80 MG Oral Tablet 08/07/2019 12:00:00 AM EDT eCW1 ([facility]) 200 ACTUAT Albuterol 0.09 MG/ACTUAT Metered Dose Inhal er [ProAir] 08/07/2019 12:00:00 AM EDT eCW1 ([facility]) BD AutoShield Duo 30G X 5 MM 08/07/2019 12:00:00 AM EDT eCW1 ([facility]) valsartan 80 MG Oral Tablet 08/07/2019 12:00:00 AM EDT eCW1 ([facility]) 200 ACTUAT Albuterol 0.09 MG/ACTUAT Metered Dose Inhal er [ProAir] 08/07/2019 12:00:00 AM EDT eCW1 ([facility]) BD AutoShield Duo 30G X 5 MM 08/07/2019 12:00:00 AM EDT eCW1 ([facility]) valsartan 80 MG Oral Tablet 08/07/2019 12:00:00 AM EDT eCW1 ([facility]) 200 ACTUAT Albuterol 0.09 MG/ACTUAT Metered Dose Inhal er [ProAir] 08/07/2019 12:00:00 AM EDT eCW1 ([facility]) BD AutoShield Duo 30G X 5 MM 08/07/2019 12:00:00 AM EDT eCW1 ([facility]) 200 ACTUAT Albuterol 0.09 MG/ACTUAT Metered Dose Inhal er [ProAir] 08/07/2019 12:00:00 AM EDT eCW1 ([facility]) BD AutoShield Duo 30G X 5 MM 08/07/2019 12:00:00 AM EDT eCW1 ([facility]) valsartan 80 MG Oral Tablet 08/07/2019 12:00:00 AM EDT eCW1 ([facility]) 200 ACTUAT Albuterol 0.09 MG/ACTUAT Metered Dose Inhal er [ProAir] 08/07/2019 12:00:00 AM EDT eCW1 ([facility]) BD AutoShield Duo 30G X 5 MM 08/07/2019 12:00:00 AM EDT eCW1 ([facility]) valsartan 80 MG Oral Tablet 08/07/2019 12:00:00 AM EDT eCW1 ([facility]) 200 ACTUAT Albuterol 0.09 MG/ACTUAT Metered Dose Inhal er [ProAir] 08/07/2019 12:00:00 AM EDT eCW1 ([facility]) 200 ACTUAT Albuterol 0.09 MG/ACTUAT Metered Dose Inhal er [ProAir] 08/07/2019 12:00:00 AM EDT eCW1 ([facility]) valsartan 80 MG Oral Tablet 08/07/2019 12:00:00 AM EDT eCW1 ([facility]) 200 ACTUAT Albuterol 0.09 MG/ACTUAT Metered Dose Inhal er [ProAir] 08/07/2019 12:00:00 AM EDT eCW1 ([facility]) BD AutoShield Duo 30G X 5 MM 08/07/2019 12:00:00 AM EDT eCW1 ([facility]) valsartan 80 MG Oral Tablet 08/07/2019 12:00:00 AM EDT eCW1 ([facility]) valsartan 80 MG Oral Tablet 08/07/2019 12:00:00 AM EDT eCW1 ([facility]) 200 ACTUAT Albuterol 0.09 MG/ACTUAT Metered Dose Inhal er [ProAir] 08/07/2019 12:00:00 AM EDT eCW1 ([facility]) BD AutoShield Duo 30G X 5 MM 08/07/2019 12:00:00 AM EDT eCW1 ([facility]) 200 ACTUAT Albuterol 0.09 MG/ACTUAT Metered Dose Inhal er [ProAir] 08/07/2019 12:00:00 AM EDT eCW1 ([facility]) valsartan 80 MG Oral Tablet 08/07/2019 12:00:00 AM EDT eCW1 ([facility]) BD AutoShield Duo 30G X 5 MM 08/07/2019 12:00:00 AM EDT eCW1 ([facility]) 200 ACTUAT Albuterol 0.09 MG/ACTUAT Metered Dose Inhal er [ProAir] 08/07/2019 12:00:00 AM EDT eCW1 ([facility]) valsartan 80 MG Oral Tablet 08/07/2019 12:00:00 AM EDT eCW1 ([facility]) BD AutoShield Duo 30G X 5 MM 08/07/2019 12:00:00 AM EDT eCW1 ([facility]) valsartan 80 MG Oral Tablet 08/07/2019 12:00:00 AM EDT eCW1 ([facility]) [place] - 07/30/2019 12:00:00 AM EDT e CW1 ([facility]) [facility] - 07/30/2019 12:00:00 AM EDT e CW1 ([facility]) [place] - 07/30/2019 12:00:00 AM EDT e CW1 ([facility]) [place] - 07/30/2019 12:00:00 AM EDT e CW1 ([facility]) [place] - 07/30/2019 12:00:00 AM EDT e CW1 ([facility]) [place] - 07/30/2019 12:00:00 AM EDT e CW1 ([facility]) [place] - 07/30/2019 12:00:00 AM EDT e CW1 ([facility]) [place] - 07/30/2019 12:00:00 AM EDT e CW1 ([facility]) [place] - 07/30/2019 12:00:00 AM EDT e CW1 ([facility]) [place] - 07/30/2019 12:00:00 AM EDT e CW1 ([facility]) [place] - 07/30/2019 12:00:00 AM EDT e CW1 ([facility]) [place] - 07/18/2019 12:00:00 AM EDT e CW1 ([facility]) May Have - 07/16/2019 12:00:00 AM EDT e CW1 ([facility]) May Have - 07/16/2019 12:00:00 AM EDT e CW1 ([facility]) May Have - 07/16/2019 12:00:00 AM EDT e CW1 ([facility]) May Have - 07/16/2019 12:00:00 AM EDT e CW1 ([facility]) May Have - 07/16/2019 12:00:00 AM EDT e CW1 ([facility]) pregabalin 150 MG Oral Capsule [Lyrica] 07/16/2019 12:00:00 AM EDT eCW1 ([facility]) May Have - 07/16/2019 12:00:00 AM EDT e CW1 ([facility]) May Have - 07/16/2019 12:00:00 AM EDT e CW1 ([facility]) May Have - 07/16/2019 12:00:00 AM EDT e CW1 ([facility]) pregabalin 150 MG Oral Capsule [Lyrica] 07/16/2019 12:00:00 AM EDT eCW1 ([facility]) May Have - 07/16/2019 12:00:00 AM EDT e CW1 ([facility]) May Have - 07/16/2019 12:00:00 AM EDT e CW1 ([facility]) pregabalin 150 MG Oral Capsule [Lyrica] 07/16/2019 12:00:00 AM EDT eCW1 ([facility]) May Have - 07/16/2019 12:00:00 AM EDT e CW1 ([facility]) pregabalin 150 MG Oral Capsule [Lyrica] 07/16/2019 12:00:00 AM EDT eCW1 ([facility]) pregabalin 150 MG Oral Capsule [Lyrica] 07/16/2019 12:00:00 AM EDT eCW1 ([facility]) pregabalin 150 MG Oral Capsule [Lyrica] 07/16/2019 12:00:00 AM EDT eCW1 ([facility]) 8 HR Acetaminophen 650 MG Extended Release Oral Tablet [Tylenol] 07/04/2019 12:00:00 AM EDT eCW1 ([facility]) 8 HR Acetaminophen 650 MG Extended Release Oral Tablet [Tylenol] 07/04/2019 12:00:00 AM EDT eCW1 ([facility]) 8 HR Acetaminophen 650 MG Extended Release Oral Tablet [Tylenol] 07/04/2019 12:00:00 AM EDT eCW1 ([facility]) 8 HR Acetaminophen 650 MG Extended Release Oral Tablet [Tylenol] 07/04/2019 12:00:00 AM EDT eCW1 ([facility]) 8 HR Acetaminophen 650 MG Extended Release Oral Tablet [Tylenol] 07/04/2019 12:00:00 AM EDT eCW1 ([facility]) 8 HR Acetaminophen 650 MG Extended Release Oral Tablet [Tylenol] 07/04/2019 12:00:00 AM EDT eCW1 ([facility]) 8 HR Acetaminophen 650 MG Extended Release Oral Tablet [Tylenol] 07/04/2019 12:00:00 AM EDT eCW1 ([facility]) 8 HR Acetaminophen 650 MG Extended Release Oral Tablet [Tylenol] 07/04/2019 12:00:00 AM EDT eCW1 ([facility]) 8 HR Acetaminophen 650 MG Extended Release Oral Tablet [Tylenol] 07/04/2019 12:00:00 AM EDT eCW1 ([facility]) 8 HR Acetaminophen 650 MG Extended Release Oral Tablet [Tylenol] 07/04/2019 12:00:00 AM EDT eCW1 ([facility]) 8 HR Acetaminophen 650 MG Extended Release Oral Tablet [Tylenol] 07/04/2019 12:00:00 AM EDT eCW1 ([facility]) 8 HR Acetaminophen 650 MG Extended Release Oral Tablet [Tylenol] 07/04/2019 12:00:00 AM EDT eCW1 ([facility]) 8 HR Acetaminophen 650 MG Extended Release Oral Tablet [Tylenol] 07/04/2019 12:00:00 AM EDT eCW1 ([facility]) 8 HR Acetaminophen 650 MG Extended Release Oral Tablet [Tylenol] 07/04/2019 12:00:00 AM EDT eCW1 ([facility]) 8 HR Acetaminophen 650 MG Extended Release Oral Tablet [Tylenol] 07/04/2019 12:00:00 AM EDT eCW1 ([facility]) 8 HR Acetaminophen 650 MG Extended Release Oral Tablet [Tylenol] 07/04/2019 12:00:00 AM EDT eCW1 ([facility]) 8 HR Acetaminophen 650 MG Extended Release Oral Tablet [Tylenol] 07/04/2019 12:00:00 AM EDT eCW1 ([facility]) 8 HR Acetaminophen 650 MG Extended Release Oral Tablet [Tylenol] 07/04/2019 12:00:00 AM EDT eCW1 ([facility]) 8 HR Acetaminophen 650 MG Extended Release Oral Tablet [Tylenol] 07/04/2019 12:00:00 AM EDT eCW1 ([facility]) 8 HR Acetaminophen 650 MG Extended Release Oral Tablet [Tylenol] 07/04/2019 12:00:00 AM EDT eCW1 ([facility]) 8 HR Acetaminophen 650 MG Extended Release Oral Tablet [Tylenol] 07/04/2019 12:00:00 AM EDT eCW1 ([facility]) 8 HR Acetaminophen 650 MG Extended Release Oral Tablet [Tylenol] 07/04/2019 12:00:00 AM EDT eCW1 ([facility]) 8 HR Acetaminophen 650 MG Extended Release Oral Tablet [Tylenol] 07/04/2019 12:00:00 AM EDT eCW1 ([facility]) 8 HR Acetaminophen 650 MG Extended Release Oral Tablet [Tylenol] 07/04/2019 12:00:00 AM EDT eCW1 ([facility]) 8 HR Acetaminophen 650 MG Extended Release Oral Tablet [Tylenol] 07/04/2019 12:00:00 AM EDT eCW1 ([facility]) 8 HR Acetaminophen 650 MG Extended Release Oral Tablet [Tylenol] 07/04/2019 12:00:00 AM EDT eCW1 ([facility]) 8 HR Acetaminophen 650 MG Extended Release Oral Tablet [Tylenol] 07/04/2019 12:00:00 AM EDT eCW1 ([facility]) 8 HR Acetaminophen 650 MG Extended Release Oral Tablet [Tylenol] 07/04/2019 12:00:00 AM EDT eCW1 ([facility]) 8 HR Acetaminophen 650 MG Extended Release Oral Tablet [Tylenol] 07/04/2019 12:00:00 AM EDT eCW1 ([facility]) 8 HR Acetaminophen 650 MG Extended Release Oral Tablet [Tylenol] 07/04/2019 12:00:00 AM EDT eCW1 ([facility]) 8 HR Acetaminophen 650 MG Extended Release Oral Tablet [Tylenol] 07/04/2019 12:00:00 AM EDT eCW1 ([facility]) May Have - 06/11/2019 12:00:00 AM EDT e CW1 ([facility]) Metoprolol Tartrate 50 MG Oral Tablet 08/22/2016 12:00:00 AM EDT [facility] 60 ACTUAT Fluticasone propionate 0.5 MG/ ACTUAT / salmeterol 0.05 MG/ACTUAT Dry Powder Inhaler [Advair] 08/22/2016 12:00:00 AM EDT [facility] Simvastatin 40 MG Oral Tablet 08/22/2016 12:00:00 AM EDT [facility] insulin human, isophane 70 UNT/ML / Regu lar Insulin, Human 30 UNT/ML Injectable Suspension 06/14/2016 12:00:00 AM EDT [facility] Lidocaine 0.05 MG/MG Topical Ointment 05/27/2016 12:00:00 AM EDT [facility] terbinafine 250 MG Oral Tablet 05/26/2016 12:00:00 AM EDT [facility] Trazodone Hydrochloride 50 MG Oral Tablet 03/21/2016 12:00:00 AM ES T [facility] Metformin hydrochloride 1000 MG Oral Tablet 02/12/2016 12:00:00 AM EST [facility] Lisinopril 40 MG Oral Tablet 02/12/2016 12:00:00 AM EST [facility] INSULIN SYRINGE .5CC/28G 28G X 1/2" 0.5 ML MISC 12/17/2015 12:00:00 AM EDT [facility] Ergocalciferol 48939 UNT Oral Capsule 11/18/2015 12:00:00 AM EDT [facility] 24 HR Isosorbide Mononitrate 30 MG Extended Release Oral Tablet [facility] clopidogrel 75 MG Oral Tablet [facility]
[2020-05-05 18:13] VITALS: BP 146/65
[2020-05-06] MEDS ORDERED: AMMO12CR7 TOP (17:28)
== END 2020-05-05 18:32 | disposition home or self-care (01) ==
LOC: EDBD 16:04 → M ED 16:04
DX: S00.83XA Contusion of other part of head, initial encounter (principal); S70.01XA Contusion of right hip, initial encounter; W07.XXXA Fall from chair, initial encounter; Y92.018 Other place in single-family (private) house as the place of occurrence of the external cause; N18.30 Chronic kidney disease, stage 3 unspecified; E11.9 Type 2 diabetes mellitus without complications; J44.9 Chronic obstructive pulmonary disease, unspecified; F33.9 Major depressive disorder, recurrent, unspecified; F41.9 Anxiety disorder, unspecified; K21.9 Gastro-esophageal reflux disease without esophagitis; G25.81 Restless legs syndrome; Z79.899 Other long term (current) drug therapy; Z79.4 Long term (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; Z79.01 Long term (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 anticoagulants; Z88.1 Allergy status to other antibiotic agents; Z88.5 Allergy status to narcotic agent; Z88.8 Allergy status to other drugs, medicaments and biological substances; Z91.040 Latex allergy status; Z91.048 Other nonmedicinal substance allergy status

== ENCOUNTER 2020-05-06 14:31 | Inpatient (IN) | payer MEDICARE, MEDICAID ==
[~2020-05-06 14:31] MED LIST changes: -AMIT10TA PO; +AMIT10TA7 PO; +AMMO12CR7 TOP
[2020-05-06] MEDS ORDERED: FUROSEMIDE 40MG/4ML VIAL (J1940) IV ONE (15:00)
[2020-05-06 16:07] LABS: BASO % 0.6 % (0.0-1.0); EOS # 0.1 10^3/uL (0.0-0.5); EOS % 1.9 % (0.0-3.0); LYMPH # 2.1 10^3/uL (1.5-5.0); MEAN CORPUSCULAR HEMOGLOBIN 28.2 pg (27.0-33.0); MEAN CORPUSCULAR HGB CONC 32.4 g/dl (32.0-36.5); MEAN CORPUSCULAR VOLUME 87.2 fl (80.0-96.0); MONO # 0.7 10^3/uL (0.0-0.8); MONO % 9.8 % (2.0-8.0); NEUTROPHILS # 3.9 10^3/uL (1.5-8.5); NEUTROPHILS % 56.4 % (36.0-66.0); PLATELET COUNT, AUTOMATED 201 10^3/uL (150-450); WHITE BLOOD COUNT 6.9 10^3/uL (4.0-10.0)
--- NOTE | 2020-05-06 16:15 | REP ---
INDICATION: DYSPNEA/COUGH. COMPARISON: Comparison chest x-ray April 22, 2020. TECHNIQUE: Portable upright AP chest radiograph. FINDINGS: The lungs are well inflated and free of infiltrate. Pleural angles are sharp. Heart size is normal. Pulmonary vasculature is not increased. Monitoring electrodes are present. IMPRESSION: No active disease. <Electronically signed by Jassi Moran > 05/06/20 [id number]
[2020-05-06 16:44] LABS: ALBUMIN 3.4 GM/DL (3.2-5.2); ALT/SGPT 78 U/L (12-78); BILIRUBIN,DIRECT < 0.1 MG/DL (0.0-0.2); BILIRUBIN,TOTAL 0.2 MG/DL (0.2-1.0); BLOOD UREA NITROGEN 22 MG/DL (7-18); CALCIUM LEVEL 8.9 MG/DL (8.8-10.2); CARBON DIOXIDE LEVEL 30 MEQ/L (21-32); CHLORIDE LEVEL 106 MEQ/L (98-107); CK-MB VALUE MASS 3.6 NG/ML (<3.6); CPK CREATINE PHOSPHOKINASE 251 U/L (26-192); CREATININE FOR GFR 1.38 MG/DL (0.55-1.30); GLOMERULAR FILTRATION RATE 40.5 (>45); GLUCOSE, FASTING 140 MG/DL (70-100); MB/CK RELATIVE INDEX 1.43 (< OR =4); NT-PRO BNP 553 PG/ML (<125); POTASSIUM SERUM 3.8 MEQ/L (3.5-5.1); SODIUM LEVEL 141 MEQ/L (136-145); TOTAL PROTEIN 6.2 GM/DL (6.4-8.2); TROPONIN I < 0.02 NG/ML (< 0.10)
[2020-05-06] MEDS ORDERED: AMMO12CR7 TOP (17:28)
[2020-05-06] MEDS ORDERED: ALBUTEROL SULFATE 2.5 MG/0.5 ML INH NEB SOLN NEB PRN (17:40)
[2020-05-06] MEDS ORDERED: NORCO, ANEXSIA 5/325MG TABLET (HYDROcodone/ACETAMINOPHEN) PO PRN (17:40)
[2020-05-06] MEDS ORDERED: GLUCAGON INJ 1MG VIAL SC PRN (17:45)
[2020-05-06] MEDS ORDERED: GLUCOSE 4GM CHEW TABLET PO PRN (17:45)
[2020-05-06] MEDS ORDERED: DEXTROSE 50% 50 ML SYRINGE IV PRN (17:45)
--- OUTSIDE RECORDS SUMMARY | 2020-05-06 17:56 | CCD ---
Author Author [facility] Organization [facility] Address Unknown Phone Unavailable Support Name Relationship Address Phone HORTENSIA KURTZ Next Of Kin [address] [place] [address] HORTENSIA BRAND Next Of Kin [address] [place], [place] [address]UNKN RACHEL M[place] [address] Natali Martinez Next Of Kin [address] [place] [address] [place] [address] Jocy Castillo Next Of Kin [address] [place] [address] Tova Alvarado Next Of Kin [address] [place] [address] MELANY (HCP) RACHEL Next Of Kin [address] [facility] [address] [address] HORTENSIA LEIVA Next Of Kin [address] [place] [address] MACI LEIVA Next Of Kin [address] [facility] [address] [place] [address] Jesse PAZ Next Of Kin [address] [place] [id number] RE Next Of Kin Unknown Unavailable RETIRED Next Of Kin Unknown Unavailable UE Next Of Kin Unknown Unavailable INEZ PAZ Next Of Kin [address] [facility] [address] [place] [address] ANA PATIÑO Next Of Kin Unknown Unavailable TOÑO [place] [address] U DIS, DISABLED Next Of Kin Unknown Unavailable COUSINFORD Cline Next Of Kin [address] [place] [address] DISABLED Next Of Kin Unknown Unavailable [place] [address] FLORECITA GUIDRY Next Of Kin [address] [place] [address] RACHEL LEIVA ECON [address] [facility] [address] [place] [address] Unavailable Hortensia Rodriguez ECON Unknown Unavailable FLORECITA PEREZ ECON [place], [place] [phone] CousinRachel cline ECON Unknown Unavailable Care Team Providers Care Tile Edger Name Role Phone DRAZEK, I JAJA PA [...] Unavailable Unavailable Dede HERNÁNDEZ MD Unavailable Unavailable Ddee HERNÁNDEZ MD Unavailable Unavailable Dede HERNÁNDEZ MD [...] Unavailable Dede HERNÁNDEZ MD Unavailable Unavailable KLARISSA, T TAMI MD [...] Unavailable Unavailable KLARISSADede TEJEDA MD Unavailable Unavailable KLARISSADede TEJEDA MD Unavailable [...] CHAUHAN, ISAIAH MARCIE RPA-C Unavailable Unavailable CHAUHAN, IASIAH MARCIE RPA-C Unavailable Unavailable CHAUHAN, ISAIAH MARCIE [...] Unavailable Rubin Lopez MD Unavailable Unavailable Rubin oLpez MD Unavailable Unavailable Rubin Lopez MD Unavailable [...] Unavailable Unavailable Rubin Lopez MD Unavailable Unavailable Wnanamwski MD, Rubin Mcdonald Unavailable Unavailable Jessica VILLATORO, Rubin [...] Unavailable Unavailable Dede HERNÁNDEZ MD Unavailable Unavailable Karla, Delvis VILLATORO Unavailable Unavailable Ali, Delvis VILLATORO [...] VILLATORO Unavailable Unavailable AliDelvis MD Unavailable Unavailable Karla, Delvis VILLATORO Unavailable Unavailable Ali, Delvis VILLATORO [...] Rj Gonsalez MD Unavailable Unavailable Nikos, Natali LITHOGRAPH DESIGNER LITHOGRAPH DESIGNER Unavailable Unavailable [facility], RFROST CHAUHAN PA MARCIE Unavailable Unavailable Nikos, A Natali LITHOGRAPH DESIGNER Unavailable Unavailable Nikos, A Natali LITHOGRAPH DESIGNER Unavailable Unavailable Nikos, A Natali LITHOGRAPH DESIGNER Unavailable Unavailable Nikos, A Natali LITHOGRAPH DESIGNER Unavailable Unavailable Nikos, A Natali LITHOGRAPH DESIGNER Unavailable Unavailable Nikos, A Natali LITHOGRAPH DESIGNER Unavailable Unavailable Nikos, A Natali LITHOGRAPH DESIGNER Unavailable Unavailable Nikos, A Natali LITHOGRAPH DESIGNER Unavailable Unavailable Nikos, A Natail LITHOGRAPH DESIGNER Unavailable Unavailable Nikos, A Natali LITHOGRAPH DESIGNER Unavailable Unavailable Nikos, A Natali LITHOGRAPH DESIGNER Unavailable Unavailable Nikos, A Natali LITHOGRAPH DESIGNER Unavailable Unavailable Nikos, A Natali LITHOGRAPH DESIGNER Unavailable Unavailable Nikos, A Natali LITHOGRAPH DESIGNER Unavailable Unavailable Nikos, A Natali LITHOGRAPH DESIGNER Unavailable Unavailable Nikos, A Natali LITHOGRAPH DESIGNER Unavailable Unavailable Nikos, A Natali LITHOGRAPH DESIGNER Unavailable Unavailable Nikos, A Natali LITHOGRAPH DESIGNER Unavailable Unavailable Nikos, A Natali LITHOGRAPH DESIGNER Unavailable Unavailable Nikos, A Natali LITHOGRAPH DESIGNER Unavailable Unavailable Nikos, A Natali LITHOGRAPH DESIGNER Unavailable Unavailable Nikos, A Natali LITHOGRAPH DESIGNER Unavailable Unavailable Nikos, A Natali LITHOGRAPH DESIGNER Unavailable Unavailable Nikos, A Natali LITHOGRAPH DESIGNER Unavailable Unavailable Nikos, A Natali LITHOGRAPH DESIGNER Unavailable Unavailable Nikos, A Natali LITHOGRAPH DESIGNER Unavailable Unavailable Nikos, A Natali LITHOGRAPH DESIGNER Unavailable Unavailable Nikos, A Natali LITHOGRAPH DESIGNER Unavailable Unavailable Re-disclosure Warning The records that [...] is protected by Article 27-F of the [facility] Public Health law. If you continue you may have access to information: Regarding HIV / AIDS; Provided by facilities licensed or operated by the [facility] Office of Mental Health; or Provided by the [facility] Office for People With Developmental Disabilities. If such information is present, then the following [facility] mandated warning applies: This information has [...] law may result in a fine or mcfp sentence or both. A general authorization for the release of medical or other information is NOT sufficient authorization for further disc losure. Allergies and Adverse Reactions Type Description Substance Reaction Status Data Source(s ) Propensity to adverse reactions QUINOLONES Quinolones Acti ve [facility] Propensity to adverse reactions MORPHINE AND RELATED Morphine And R elated Active [facility] Propensity to adverse reactions METOPROLOL Metoprolol Acti ve [facility] Propensity to adverse reactions IBUPROFEN Ibuprofen Acti ve [facility] Propensity to adverse reactions ADHESIVE TAPE Adhesive Tape Rash Low Active [facility] Low Quinolone Quinolone Quinolone Unknown Active eCW1 ([facility]) Drug allergy Metoprolol & Diet Manage Prod Metoprolol & Diet Manage Prod Unknown Active eCW1 ([facility]) Motrin Motrin Motrin constipation Active eCW1 ([facility]) Latex Latex Latex Unknown Active eCW1 ([facility]) adhesive tape adhesive tape adhesive tape Unknown Active [facility] rubber rubber rubber Unknown Active eCW1 ([facility]) Latex Latex Latex Unknown Active eCW1 ([facility]) Drug allergy Metoprolol & Diet Manage Prod Metoprolol & Diet Manage Prod Unknown Active eCW1 ([facility]) Motrin Motrin Motrin constipation Active eCW1 ([facility]) adhesive tape adhesive tape adhesive tape Unknown Active [facility]) Quinolone Quinolone Quinolone Unknown Active eCW1 ([facility]) rubber rubber rubber Unknown Active eCW1 ([facility]) Family History Family Member Name Family Member Gender Family Member Status Date o f Status Description Data Source(s) Unknown Male Problem MEDENT ([facility]) Encounters Encounter Providers Location Date Indications Data Source(s ) Unknown [address] [facility] [address] 04/29/2020 12:00:00 AM EST eCW1 ([facility]) [place] [address] [facility] [place] [address] 04/27/2020 12:00:00 AM EST eCW1 ([facility]) Unknown [address] [facility] [address] 04/27/2020 12:00:00 AM EST eCW1 ([facility]) Unknown [address] [facility] [place] [address] 04/22/2020 12:00:00 AM EST [facility] Office Visit, Est Pt., Level 5 PC [address] [place] [address] 04/22/2020 12:00:00 AM EST eCW1 ([facility]) Unknown [address] [facility] [address] 04/15/2020 12:00:00 AM EST [facility]) OFFICE OUTPATIENT VISIT 15 MINUTES Attender: JAJA PABLO Phys ical Therapy 04/08/2020 10:30:00 AM EST MEDENT ([facility]) Office Visit, Est Pt., Level 4 PC [address] [place] [address] 04/08/2020 12:00:00 AM EST eCW1 ([facility]) Unknown [address] [facility] [address] 04/01/2020 12:00:00 AM EST eCW1 ([facility]) Unknown [address] [facility] [address] 03/31/2020 12:00:00 AM EST [facility]CW1 [facility]) Office Visit, Est Pt., Level 3 PC [address] [place] [address] 03/24/2020 12:00:00 AM EST eCW1 ([facility]) Unknown [address] [facility] [address] 03/23/2020 12:00:00 AM EST eCW1 ([facility]) Unknown [address] [facility] [address] 02/28/2020 12:00:00 AM EST eCW1 ([facility]) Unknown [address] [facility] [address] 02/28/2020 12:00:00 AM EST eCW1 ([facility]) Unknown [address] [facility] [address] 02/28/2020 12:00:00 AM EST eCW1 ([facility]) Unknown [address] [facility] Y [address] 02/28/2020 12:00:00 AM EST eCW1 ([facility]) Office Visit, Est Pt., Level 3 PC [address] [place] [address] 02/27/2020 12:00:00 AM EST eCW1 ([facility]) Unknown [address] [facility] Y [address] 02/24/2020 12:00:00 AM EST eCW1 ([facility]) Office Visit, Est Pt., Level 4 PC [address] [place] [address] 02/21/2020 12:00:00 AM EST eCW1 ([facility]) Unknown [address] [facility] Y [address] 02/17/2020 12:00:00 AM EST eCW1 ([facility]) Unknown [address] [facility] Y [address] 01/20/2020 12:00:00 AM EST eCW1 ([facility]) Outpatient Attender: Delvis Acosta MD Main office - Ruby 01/17/2020 07:30:00 AM EST MEDENT ([facility] aravind, ) Unknown [address] [facility] Y [address] 01/17/2020 12:00:00 AM EST eCW1 ([facility]) Unknown [address] [facility] Y [address] 01/17/2020 12:00:00 AM EST eCW1 ([facility]) Unknown [address] [facility] Y [address] 01/15/2020 12:00:00 AM EST eCW1 ([facility]) Unknown [address] [facility] Y [address] 01/14/2020 12:00:00 AM EST eCW1 ([facility]) Unknown [address] [facility] Y [address] 01/14/2020 12:00:00 AM EST eCW1 ([facility]) Unknown [address] [facility] [place] [address] 01/13/2020 12:00:00 AM EST eCW1 ([facility]) Unknown [address] [facility] [address] 01/09/2020 12:00:00 AM EDT eCW1 ([facility]) Unknown [address] [facility] [address] 01/08/2020 12:00:00 AM EDT eCW1 ([facility]) Outpatient [address] [facility] Y [address] 01/07/2020 12:00:00 AM EDT eCW1 ([facility]) Unknown [address] [facility] [address] 12/30/2019 12:00:00 AM EDT [facility]CW1 [facility] [place] [address] [facility] [address] 12/23/2019 12:00:00 AM EDT eCW1 ([facility]) Unknown [address] [facility] [address] 12/20/2019 12:00:00 AM EDT eCW1 ([facility]) Unknown [address] [facility] [address] 12/20/2019 12:00:00 AM EDT eCW1 ([facility]) Unknown [address] [facility] [address] 12/19/2019 12:00:00 AM EDT eCW1 ([facility]) Unknown [address] [facility] [place] [address] 12/19/2019 12:00:00 AM EDT eCW1 ([facility]) Outpatient Attender: Wallace Guardado/Ricardo/Russell/Kimberly fitzpatrick 12/12/2019 02:00:00 PM EDT [facility] ([facility] [address] [facility] [address] 10/31/2019 12:00:00 AM EDT eCW1 ([facility]) Unknown [address] [facility] [address] 09/27/2019 12:00:00 AM EDT eCW1 ([facility]) Unknown [address] [facility], [place] [address] 09/23/2019 12:00:00 AM EDT eCW1 ([facility]) Outpatient Attender: SANDRA OLIVA MDAdmitter: SANDRA GONZALEZ CHI, MD [id number] 08/27/2019 06:06:00 AM EDT - 08/27/2019 11:25:00 AM EDT [facility] Patient discharged. Unknown [address] [facility], [place] [address] 08/26/2019 12:00:00 AM EDT eCW1 ([facility]) Outpatient Referrer: SANDRA OLIVA MD MOB-MOB.PAT 08/24/2019 09:12:5 6 AM EDT [facility] Unknown [address] [facility] [address] 08/14/2019 12:00:00 AM EDT eCW1 ([facility]) Outpatient Attender: TAMI HERNANDEZ MD Main Office 08/13/2019 12:15:00 PM EDT MED[facility] ([facility]) [facility] [address] [facility] [address] 08/13/2019 12:00:00 AM EDT eCW1 ([facility]) Outpatient Attender: TAMI Guardado/Ricardo/Russell/Jules dl 08/09/2019 09:00:00 AM EDT [facility] ([facility] [address] [facility] [place] [address] 08/09/2019 12:00:00 AM EDT eCW1 ([facility]) [facility] [address] [facility] [place] [address] 08/07/2019 12:00:00 AM EDT eCW1 ([facility]) [address] [address] 08/07/2019 12:00:00 AM EDT eCW1 ([facility]) Outpatient Attender: Wallace Guardado/Ricardo/Russell/Kimberly fitzpatrick 08/02/2019 09:15:00 AM EDT [facility] ([facility]) [address] [address] 08/02/2019 12:00:00 AM EDT eCW1 ([facility]) [address] [address] 08/01/2019 12:00:00 AM EDT eCW1 ([facility]) [address] [address] 07/30/2019 12:00:00 AM EDT eCW1 ([facility]) [address] [address] 07/23/2019 12:00:00 AM EDT eCW1 ([facility]) [address] [address] 07/22/2019 12:00:00 AM EDT eCW1 ([facility]) [address] [address] 07/22/2019 12:00:00 AM EDT eCW1 ([facility]) [address] [address] 07/18/2019 12:00:00 AM EDT eCW1 ([facility]) [address] [address] 07/17/2019 12:00:00 AM EDT eCW1 ([facility]) [address] [address] 07/16/2019 12:00:00 AM EDT eCW1 ([facility]) Outpatient Attender: Wallace Guardado/Ricardo/Russell/Kimberly fitzpatrick 07/04/2019 01:30:00 PM EDT [facility] ([facility] [address] [address] 07/04/2019 12:00:00 AM EDT [facility]CW1 [facility] [address] [address] 07/02/2019 12:00:00 AM EDT eCW1 ([facility] [address] [address] 07/01/2019 12:00:00 AM EDT eCW1 ([facility] [address] [address] 07/01/2019 12:00:00 AM EDT eCW1 ([facility]) [address] [address] 06/26/2019 12:00:00 AM EDT eCW1 ([facility] [address] [address] 06/25/2019 12:00:00 AM EDT eCW1 ([facility]) [address] [address] 06/12/2019 12:00:00 AM EDT eCW1 ([facility]) [address] [address] 06/12/2019 12:00:00 AM EDT eCW1 [facility] Outpatient Attender: LEDY JACK [facility] 05/13 08:20:01 AM EDT [facility] Outpatient Attender: MARCIE CHAUHAN RPA-C [facility] 06/11/2019 07:56:03 AM EDT [facility] Outpatient Attender: [facility]Y [facility] 05/13 07:55:01 AM EDT [address] [address] 06/11/2019 12:00:00 AM EDT eC1 ([facility]) Outpatient Attender: MARCIE ARAGONC [facility] 06/05/2019 02:24:04 PM EDT [facility] Outpatient Referrer: MARC BAUER MD 06/04/2019 11:00:00 AM EDT [facility] Imaging Outpatient Attender: MARCIE ARAGONC [facility] 05/31/2019 04:14:02 PM EDT [facility] Outpatient Attender: LEDY [facility] 05/12 04:14:01 PM EDT [facility] Outpatient Attender: LEDY KNOWLES [facility] 05/11 11:18:02 AM EDT [facility] Outpatient Attender: MARCIE ARAGONC [facility] 05/27/2019 03:08:01 PM EDT [facility] Outpatient Attender: LEDY KNOWLES [facility] 05/11 03:08:00 PM EDT [facility] Outpatient Attender: LEDY KNOWLES [facility] 05/11 11:19:01 AM EDT [facility] Outpatient Attender: MARCIE BELLAMY [facility] 05/24/2019 02:58:01 PM EDT [facility] Outpatient Attender: TYESHA ARAMBULA 05/17/2019 01:33:01 P M [facility] Outpatient Referrer: MARC BAUER MD 05/14/2019 12:29:00 PM EST [facility] Radiology Imaging Outpatient Referrer: MARC BAUER MD 05/10/2019 02:20:00 PM EST [facility] Outpatient Attender: TYESHA ARAMBULA 05/09/2019 01:51:01 P M [facility] Outpatient Attender: TYESHA PEREZ 05/07/2019 03:29:00 P M [facility] Outpatient Attender: TYESHA ARAMBULA 05/06/2019 08:46:01 A M [facility] Outpatient Attender: Natali Knott LITHOGRAPH DESIGNER FP 04/24/2019 10:4 3:02 AM [facility] Outpatient Attender: Natali NGP FP 04/23/2019 11:5 7:01 AM [facility] Outpatient Attender: Natali NGP FP 04/23/2019 08:1 3:06 AM [facility] Outpatient Attender: Natali Knott LITHOGRAPH DESIGNER FP 04/22/2019 08:2 0:03 AM [facility] Outpatient Attender: TYESHA Knott LITHOGRAPH DESIGNER FP 04/22/2019 08:20:02 A M [facility] Outpatient Attender: TYESHA Knott LITHOGRAPH DESIGNER FP 04/18/2019 02:26:05 P M [facility] Outpatient Attender: TYESAH Knott LITHOGRAPH DESIGNER FP 04/18/2019 12:56:01 P M [facility] Outpatient Attender: Natali Knott LITHOGRAPH DESIGNER FP 04/11/2019 11:4 3:02 AM [facility] Outpatient Attender: TYESHA Knott LITHOGRAPH DESIGNER FP 04/10/2019 08:20:04 A M [facility] Outpatient Attender: Natali Knott LITHOGRAPH DESIGNER FP 04/10/2019 08:2 0:01 AM [facility] Outpatient Attender: Natali Knott LITHOGRAPH DESIGNER FP 04/08/2019 10:2 6:02 AM [facility] Outpatient Attender: Natali NGP FP 04/08/2019 10:2 3:00 AM [facility] Outpatient Attender: TYESHA NGP FP 04/05/2019 09:29:24 A M [facility] Outpatient Attender: TYESHA Knott LITHOGRAPH DESIGNER FP 04/03/2019 03:29:01 P [facility] Outpatient Attender: TYESHA NGP FP 04/03/2019 03:27:00 P M [facility] Outpatient Attender: TYESHA NGP FP 04/03/2019 03:25:09 P M [facility] Outpatient Attender: TYESHA NGP FP 04/03/2019 02:54:01 P M [facility] Outpatient Attender: Harry Lopez MDReferrer: TAMI STORY MD 04/02/2019 12:15:45 PM EST [facility] Outpatient Attender: TYESHA ARMABULA FP 04/01/2019 04:39:00 P [facility] Outpatient Attender: TAMI HERNÁNDEZ MD 04/01/2019 04:38:00 P [facility] Outpatient Attender: TAMI HERNÁNDEZ MD 04/01/2019 04:31:01 P [facility] Outpatient Attender: TAMI HERNÁNDEZ MD 04/01/2019 10:52:00 A [facility] Outpatient Attender: TAMI HERNÁNDEZ MD FP 03/26/2019 12:26:01 P [facility] Outpatient Attender: TAMI HERNÁNDEZ MD 03/25/2019 12:02:00 P [facility] Recurring Patient Attender: Harry Lopez MDReferrer: TAMI TERRAZAS MD 03/22/2019 01:51:43 PM EST [facility] Out[facility] Attender: TAMI Guardado/Ricardo/Russell/Jules dl 03/22/2019 09:30:00 AM EST [facility] ([facility]) Outpatient Attender: TAMI HERNÁNDEZ MD FP 03/21/2019 10:21:01 A [facility] Outpatient Attender: TAMI HERNÁNDEZ MD 03/14/2019 12:45:00 P [facility] Immunizations Vaccine Date Status Description Data Source(s) COVID-19 dose #2 given elsewhere Unspecified 04/27/2020 01:4 2:00 PM EST completed eCW1 ([facility]) Imm: COVID-19 dose #2 given elsewhere Unspecified 04/27/2020 01:42:00 PM EST completed eCW1 ([facility]) COVID-19 dose #1 given elsewhere Unspecified 04/06/2020 01:4 1:00 PM EST completed eCW1 ([facility]) Imm: COVID-19 dose #1 given elsewhere Unspecified 04/06/2020 01:41:00 PM EST completed eCW1 ([facility]) Medications Medication Brand Name Start Date Product Form Dose Route Admi nistrative Instructions Pharmacy Instructions Status Indications Reaction Description Data Source(s) ammonium lactate 120 MG/ML Topical Cream Ammonium Lactate 04/23/2020 12:00:00 AM EST active MEDENT ([facility] Doxycycline Monohydrate 100 MG Oral Capsule Doxycycline Mellette hydrate 100 MG 03/24/2020 12:00:00 AM EST 1.0 {capsule} active Doxycycline Monohydrate 100 MG [facility] pregabalin 300 MG Oral Capsule [Lyrica] Lyrica 300 MG Lyrica 300 MG 03/24/2020 12:00:00 AM EST active Lyrica 3 00 MG [facility]CW1 [facility]) Doxycycline Monohydrate 100 MG Oral Capsule Doxycycline Mellette hydrate 100 MG 03/24/2020 12:00:00 AM EST 1.0 {capsule} active Doxycycline Monohydrate 100 MG eCW1 [facility]) pregabalin 300 MG Oral Capsule [Lyrica] Lyrica 300 MG Lyrica 300 MG 03/24/2020 12:00:00 AM EST active Lyrica 3 00 MG eCW1 [facility]) pregabalin 300 MG Oral Capsule [Lyrica] Lyrica 300 MG Lyrica 300 MG 03/24/2020 12:00:00 AM EST active Lyrica 3 00 MG eCW1 [facility]) pregabalin 300 MG Oral Capsule [Lyrica] Lyrica 300 MG Lyrica 300 MG 03/24/2020 12:00:00 AM EST active Lyrica 3 00 MG eCW1 [facility]) Doxycycline Monohydrate 100 MG Oral Capsule Doxycycline Mellette hydrate 100 MG 03/24/2020 12:00:00 AM EST 1.0 {capsule} active Doxycycline Monohydrate 100 MG eCW1 [facility]) pregabalin 300 MG Oral Capsule [Lyrica] Lyrica 300 MG Lyrica 300 MG 03/24/2020 12:00:00 AM EST active Lyrica 3 00 MG [facility]CW1 [facility]) May Have - UNK 02/27/2020 12:00:00 AM EST active May Have - eCW1 ([facility]) May Have - UNK 02/27/2020 12:00:00 AM EST active May Have - eCW1 ([facility]) May Have - UNK 02/27/2020 12:00:00 AM EST active May Have - eCW1 ([facility]) May Have - UNK 02/27/2020 12:00:00 AM EST active May Have - eCW1 ([facility]) pregabalin 50 MG Oral Capsule [Lyrica] Lyrica 50 MG Lyrica 5 0 MG 02/27/2020 12:00:00 AM EST active Lyrica 5 0 MG eCW1 [facility]) May Have - UNK 02/27/2020 12:00:00 AM EST active May Have - eCW1 ([facility]) May Have - UNK 02/27/2020 12:00:00 AM EST active May Have - eCW1 ([facility]) pregabalin 50 MG Oral Capsule [Lyrica] Lyrica 50 MG Lyrica 5 0 MG 02/27/2020 12:00:00 AM EST active Lyrica 5 0 MG eCW1 ([facility]) pregabalin 50 MG Oral Capsule [Lyrica] Lyrica 50 MG Lyrica 5 0 MG 02/27/2020 12:00:00 AM EST active Lyrica 5 0 MG eCW1 ([facility]) May Have - UNK 02/27/2020 12:00:00 AM EST active May Have - eCW1 ([facility]) May Have - UNK 02/27/2020 12:00:00 AM EST active [facility] May Have - UNK 02/27/2020 12:00:00 AM EST active [facility] - [facility] ([facility]) May Have - UNK 02/27/2020 12:00:00 AM EST active May Have - eCW1 ([facility]) May Have - UNK 02/27/2020 12:00:00 AM EST active May Have - eCW1 ([facility]) May Have - UNK 02/27/2020 12:00:00 AM EST active May Have - eCW1 ([facility]) pregabalin 50 MG Oral Capsule [Lyrica] Lyrica 50 MG Lyrica 5 0 MG 02/27/2020 12:00:00 AM EST active Lyrica 5 0 MG eCW1 ([facility]) pregabalin 50 MG Oral Capsule [Lyrica] Lyrica 50 MG Lyrica 5 0 MG 02/27/2020 12:00:00 AM EST active Lyrica 5 0 MG eCW1 ([facility]) May Have - UNK 02/27/2020 12:00:00 AM EST active May Have - eCW1 ([facility]) May Have - UNK 02/27/2020 12:00:00 AM EST active May Have - eCW1 ([facility]) pregabalin 50 MG Oral Capsule [Lyrica] Lyrica 50 MG Lyrica 5 0 MG 02/27/2020 12:00:00 AM EST active Lyrica 5 0 MG eCW1 ([facility]) pregabalin 50 MG Oral Capsule [Lyrica] Lyrica 50 MG Lyrica 5 0 MG 02/27/2020 12:00:00 AM EST active Lyrica 5 0 MG eCW1 ([facility]) May Have - UNK 02/27/2020 12:00:00 AM EST active May Have - eCW1 ([facility]) May Have - UNK 02/27/2020 12:00:00 AM EST active May Have - eCW1 ([facility]) May Have - UNK 02/27/2020 12:00:00 AM EST active May Have - eCW1 ([facility]) 60 ACTUAT Fluticasone propionate 0.1 MG/ ACTUAT / salmeterol 0.05 MG/ACTUAT Dry Powder Inhaler [Advair] Advair Diskus 100-50 MCG/DOSE Advair Diskus 100-50 MCG/DOSE 02/21/2020 12:00:00 AM EST 1.0 {puff} activ e Advair Diskus 100-50 MCG/DOSE eCW1 ([facility]) 60 ACTUAT Fluticasone propionate 0.1 MG/ ACTUAT / salmeterol 0.05 MG/ACTUAT Dry Powder Inhaler [Advair] Advair Diskus 100-50 MCG/DOSE Advair Diskus 100-50 MCG/DOSE 02/21/2020 12:00:00 AM EST 1.0 {puff} activ e Advair Diskus 100-50 MCG/DOSE eCW1 ([facility]) 60 ACTUAT Fluticasone propionate 0.1 MG/ ACTUAT / salmeterol 0.05 MG/ACTUAT Dry Powder Inhaler [Advair] Advair Diskus 100-50 MCG/DOSE Advair Diskus 100-50 MCG/DOSE 02/21/2020 12:00:00 AM EST 1.0 {puff} activ e Advair Diskus 100-50 MCG/DOSE eCW1 ([facility]) 60 ACTUAT Fluticasone propionate 0.1 MG/ ACTUAT / salmeterol 0.05 MG/ACTUAT Dry Powder Inhaler [Advair] Advair Diskus 100-50 MCG/DOSE Advair Diskus 100-50 MCG/DOSE 02/21/2020 12:00:00 AM EST 1.0 {puff} activ e Advair Diskus 100-50 MCG/DOSE eCW1 ([facility]) 60 ACTUAT Fluticasone propionate 0.1 MG/ ACTUAT / salmeterol 0.05 MG/ACTUAT Dry Powder Inhaler [Advair] Advair Diskus 100-50 MCG/DOSE Advair Diskus 100-50 MCG/DOSE 02/21/2020 12:00:00 AM EST 1.0 {puff} activ e Advair Diskus 100-50 MCG/DOSE eCW1 [facility]) 60 ACTUAT Fluticasone propionate 0.1 MG/ ACTUAT / salmeterol 0.05 MG/ACTUAT Dry Powder Inhaler [Advair] Advair Diskus 100-50 MCG/DOSE Advair Diskus 100-50 MCG/DOSE 02/21/2020 12:00:00 AM EST 1.0 {puff} activ e Advair Diskus 100-50 MCG/DOSE eCW1 ([facility]) 60 ACTUAT Fluticasone propionate 0.1 MG/ ACTUAT / salmeterol 0.05 MG/ACTUAT Dry Powder Inhaler [Advair] Advair Diskus 100-50 MCG/DOSE Advair Diskus 100-50 MCG/DOSE 02/21/2020 12:00:00 AM EST 1.0 {puff} activ e Advair Diskus 100-50 MCG/DOSE eCW1 ([facility]) 60 ACTUAT Fluticasone propionate 0.1 MG/ ACTUAT / salmeterol 0.05 MG/ACTUAT Dry Powder Inhaler [Advair] Advair Diskus 100-50 MCG/DOSE Advair Diskus 100-50 MCG/DOSE 02/21/2020 12:00:00 AM EST 1.0 {puff} activ e Advair Diskus 100-50 MCG/DOSE eCW1 ([facility]) 60 ACTUAT Fluticasone propionate 0.1 MG/ ACTUAT / salmeterol 0.05 MG/ACTUAT Dry Powder Inhaler [Advair] Advair Diskus 100-50 MCG/DOSE Advair Diskus 100-50 MCG/DOSE 02/21/2020 12:00:00 AM EST 1.0 {puff} activ e Advair Diskus 100-50 MCG/DOSE eCW1 [facility]) 60 ACTUAT Fluticasone propionate 0.1 MG/ ACTUAT / salmeterol 0.05 MG/ACTUAT Dry Powder Inhaler [Advair] Advair Diskus 100-50 MCG/DOSE Advair Diskus 100-50 MCG/DOSE 02/21/2020 12:00:00 AM EST 1.0 {puff} activ e Advair Diskus 100-50 MCG/DOSE eCW1 [facility]) 60 ACTUAT Fluticasone propionate 0.1 MG/ ACTUAT / salmeterol 0.05 MG/ACTUAT Dry Powder Inhaler [Advair] Advair Diskus 100-50 MCG/DOSE Advair Diskus 100-50 MCG/DOSE 02/21/2020 12:00:00 AM EST 1.0 {puff} activ e Advair Diskus 100-50 MCG/DOSE eCW1 [facility]) 60 ACTUAT Fluticasone propionate 0.1 MG/ ACTUAT / salmeterol 0.05 MG/ACTUAT Dry Powder Inhaler [Advair] Advair Diskus 100-50 MCG/DOSE Advair Diskus 100-50 MCG/DOSE 02/21/2020 12:00:00 AM EST 1.0 {puff} activ e Advair Diskus 100-50 MCG/DOSE eCW1 [facility]) 60 ACTUAT Fluticasone propionate 0.1 MG/ ACTUAT / salmeterol 0.05 MG/ACTUAT Dry Powder Inhaler [Advair] Advair Diskus 100-50 MCG/DOSE Advair Diskus 100-50 MCG/DOSE 02/21/2020 12:00:00 AM EST 1.0 {puff} activ e Advair Diskus 100-50 MCG/DOSE eCW1 [facility]) 60 ACTUAT Fluticasone propionate 0.1 MG/ ACTUAT / salmeterol 0.05 MG/ACTUAT Dry Powder Inhaler [Advair] Advair Diskus 100-50 MCG/DOSE Advair Diskus 100-50 MCG/DOSE 02/21/2020 12:00:00 AM EST 1.0 {puff} activ e Advair Diskus 100-50 MCG/DOSE eCW1 [facility]) 60 ACTUAT Fluticasone propionate 0.1 MG/ ACTUAT / salmeterol 0.05 MG/ACTUAT Dry Powder Inhaler [Advair] Advair Diskus 100-50 MCG/DOSE Advair Diskus 100-50 MCG/DOSE 02/21/2020 12:00:00 AM EST 1.0 {puff} activ e Advair Diskus 100-50 MCG/DOSE eCW1 [facility]) 60 ACTUAT Fluticasone propionate 0.1 MG/ ACTUAT / salmeterol 0.05 MG/ACTUAT Dry Powder Inhaler [Advair] Advair Diskus 100-50 MCG/DOSE Advair Diskus 100-50 MCG/DOSE 02/21/2020 12:00:00 AM EST 1.0 {puff} activ e Advair Diskus 100-50 MCG/DOSE eCW1 [facility]) 60 ACTUAT Fluticasone propionate 0.1 MG/ ACTUAT / salmeterol 0.05 MG/ACTUAT Dry Powder Inhaler [Advair] Advair Diskus 100-50 MCG/DOSE Advair Diskus 100-50 MCG/DOSE 02/21/2020 12:00:00 AM EST 1.0 {puff} activ e Advair Diskus 100-50 MCG/DOSE eCW1 [facility]) Insulin, Aspart, Human 100 UNT/ML Inject able Solution [NovoLog] NovoLog 100 UNIT/ML NovoLog 100 UNIT/ML 02/04/2020 12:00:00 AM EST active NovoLog 100 UNIT/ML eCW1 [facility]) Insulin, Aspart, Human 100 UNT/ML Inject able Solution [NovoLog] NovoLog 100 UNIT/ML NovoLog 100 UNIT/ML 02/04/2020 12:00:00 AM EST active NovoLog 100 UNIT/ML eCW1 ([facility]) Insulin, Aspart, Human 100 UNT/ML Inject able Solution [NovoLog] NovoLog 100 UNIT/ML NovoLog 100 UNIT/ML 02/04/2020 12:00:00 AM EST active NovoLog 100 UNIT/ML eCW1 ([facility]) Insulin, Aspart, Human 100 UNT/ML Inject able Solution [NovoLog] NovoLog 100 UNIT/ML NovoLog 100 UNIT/ML 02/04/2020 12:00:00 AM EST active NovoLog 100 UNIT/ML eCW1 ([facility]) Insulin, Aspart, Human 100 UNT/ML Inject able Solution [NovoLog] NovoLog 100 UNIT/ML NovoLog 100 UNIT/ML 02/04/2020 12:00:00 AM EST active NovoLog 100 UNIT/ML eCW1 ([facility]) Insulin, Aspart, Human 100 UNT/ML Inject able Solution [NovoLog] NovoLog 100 UNIT/ML NovoLog 100 UNIT/ML 02/04/2020 12:00:00 AM EST active NovoLog 100 UNIT/ML eCW1 ([facility]) Insulin, Aspart, Human 100 UNT/ML Inject able Solution [NovoLog] NovoLog 100 UNIT/ML NovoLog 100 UNIT/ML 02/04/2020 12:00:00 AM EST active NovoLog 100 UNIT/ML eCW1 ([facility]) Insulin, Aspart, Human 100 UNT/ML Inject able Solution [NovoLog] NovoLog 100 UNIT/ML NovoLog 100 UNIT/ML 02/04/2020 12:00:00 AM EST active NovoLog 100 UNIT/ML eCW1 ([facility]) Insulin, Aspart, Human 100 UNT/ML Inject able Solution [NovoLog] NovoLog 100 UNIT/ML NovoLog 100 UNIT/ML 02/04/2020 12:00:00 AM EST active NovoLog 100 UNIT/ML eCW1 ([facility]) Insulin, Aspart, Human 100 UNT/ML Inject able Solution [NovoLog] NovoLog 100 UNIT/ML NovoLog 100 UNIT/ML 02/04/2020 12:00:00 AM EST active NovoLog 100 UNIT/ML eCW1 ([facility]) Insulin, Aspart, Human 100 UNT/ML Inject able Solution [NovoLog] NovoLog 100 UNIT/ML NovoLog 100 UNIT/ML 02/04/2020 12:00:00 AM EST active NovoLog 100 UNIT/ML eCW1 ([facility]) Insulin, Aspart, Human 100 UNT/ML Inject able Solution [NovoLog] NovoLog 100 UNIT/ML NovoLog 100 UNIT/ML 02/04/2020 12:00:00 AM EST active NovoLog 100 UNIT/ML eCW1 ([facility]) Insulin, Aspart, Human 100 UNT/ML Inject able Solution [NovoLog] NovoLog 100 UNIT/ML NovoLog 100 UNIT/ML 02/04/2020 12:00:00 AM EST active NovoLog 100 UNIT/ML eCW1 ([facility]) Insulin, Aspart, Human 100 UNT/ML Inject able Solution [NovoLog] NovoLog 100 UNIT/ML NovoLog 100 UNIT/ML 02/04/2020 12:00:00 AM EST active NovoLog 100 UNIT/ML eCW1 ([facility]) Insulin, Aspart, Human 100 UNT/ML Inject able Solution [NovoLog] NovoLog 100 UNIT/ML NovoLog 100 UNIT/ML 02/04/2020 12:00:00 AM EST active NovoLog 100 UNIT/ML eCW1 ([facility]) Insulin, Aspart, Human 100 UNT/ML Inject able Solution [NovoLog] NovoLog 100 UNIT/ML NovoLog 100 UNIT/ML 02/04/2020 12:00:00 AM EST active NovoLog 100 UNIT/ML eCW1 ([facility]) Insulin, Aspart, Human 100 UNT/ML Inject able Solution [NovoLog] NovoLog 100 UNIT/ML NovoLog 100 UNIT/ML 02/04/2020 12:00:00 AM EST active NovoLog 100 UNIT/ML eCW1 ([facility]) Insulin, Aspart, Human 100 UNT/ML Inject able Solution [NovoLog] NovoLog 100 UNIT/ML NovoLog 100 UNIT/ML 02/04/2020 12:00:00 AM EST active NovoLog 100 UNIT/ML eCW1 ([facility]) Insulin, Aspart, Human 100 UNT/ML Inject able Solution [NovoLog] NovoLog 100 UNIT/ML NovoLog 100 UNIT/ML 02/04/2020 12:00:00 AM EST active NovoLog 100 UNIT/ML eCW1 [facility]) pregabalin 200 MG Oral Capsule Pregabalin 01/17/2020 12:00:00 AM EST ORAL active [facility] ([facility] ) duloxetine 60 MG Delayed Release Oral Capsule Duloxetine HCL 01/17/2020 12:00:00 AM EST ORAL active [facility] ([facility]) pregabalin 200 MG Oral Capsule [Lyrica] Lyrica 200 MG Lyrica 200 MG 12/20/2019 12:00:00 AM EDT active Lyrica 2 00 MG eCW1 ([facility]) pregabalin 200 MG Oral Capsule [Lyrica] Lyrica 200 MG Lyrica 200 MG 12/20/2019 12:00:00 AM EDT active Lyrica 2 00 MG eCW1 ([facility]) pregabalin 200 MG Oral Capsule [Lyrica] Lyrica 200 MG Lyrica 200 MG 12/20/2019 12:00:00 AM EDT active Lyrica 2 00 MG eCW1 ([facility]) pregabalin 200 MG Oral Capsule [Lyrica] Lyrica 200 MG Lyrica 200 MG 12/20/2019 12:00:00 AM EDT active Lyrica 2 00 MG eCW1 ([facility]) pregabalin 200 MG Oral Capsule [Lyrica] Lyrica 200 MG Lyrica 200 MG 12/20/2019 12:00:00 AM EDT active Lyrica 2 00 MG eCW1 ([facility]) pregabalin 200 MG Oral Capsule [Lyrica] Lyrica 200 MG Lyrica 200 MG 12/20/2019 12:00:00 AM EDT active Lyrica 2 00 MG eCW1 ([facility]) pregabalin 200 MG Oral Capsule [Lyrica] Lyrica 200 MG Lyrica 200 MG 12/20/2019 12:00:00 AM EDT active Lyrica 2 00 MG eCW1 ([facility]) pregabalin 200 MG Oral Capsule [Lyrica] Lyrica 200 MG Lyrica 200 MG 12/20/2019 12:00:00 AM EDT active Lyrica 2 00 MG eCW1 ([facility]) pregabalin 200 MG Oral Capsule [Lyrica] Lyrica 200 MG Lyrica 200 MG 12/20/2019 12:00:00 AM EDT active Lyrica 2 00 MG eCW1 ([facility]) pregabalin 200 MG Oral Capsule [Lyrica] Lyrica 200 MG Lyrica 200 MG 12/20/2019 12:00:00 AM EDT active Lyrica 2 00 MG eCW1 ([facility]) pregabalin 200 MG Oral Capsule [Lyrica] Lyrica 200 MG Lyrica 200 MG 12/20/2019 12:00:00 AM EDT active Lyrica 2 00 MG eCW1 ([facility]) pregabalin 200 MG Oral Capsule [Lyrica] Lyrica 200 MG Lyrica 200 MG 12/20/2019 12:00:00 AM EDT active Lyrica 2 00 MG eCW1 ([facility]) pregabalin 200 MG Oral Capsule [Lyrica] Lyrica 200 MG Lyrica 200 MG 12/20/2019 12:00:00 AM EDT active Lyrica 2 00 MG eCW1 ([facility]) pregabalin 200 MG Oral Capsule [Lyrica] Lyrica 200 MG Lyrica 200 MG 12/20/2019 12:00:00 AM EDT active Lyrica 2 00 MG eCW1 ([facility]) pregabalin 200 MG Oral Capsule [Lyrica] Lyrica 200 MG Lyrica 200 MG 12/20/2019 12:00:00 AM EDT active Lyrica 2 00 MG eCW1 ([facility]) pregabalin 200 MG Oral Capsule [Lyrica] Lyrica 200 MG Lyrica 200 MG 12/20/2019 12:00:00 AM EDT active Lyrica 2 00 MG eCW1 ([facility]) pregabalin 200 MG Oral Capsule [Lyrica] Lyrica 200 MG Lyrica 200 MG 12/20/2019 12:00:00 AM EDT active Lyrica 2 00 MG eCW1 ([facility]) pregabalin 200 MG Oral Capsule [Lyrica] Lyrica 200 MG Lyrica 200 MG 12/20/2019 12:00:00 AM EDT active Lyrica 2 00 MG eCW1 ([facility]) pregabalin 200 MG Oral Capsule [Lyrica] Lyrica 200 MG Lyrica 200 MG 12/20/2019 12:00:00 AM EDT active Lyrica 2 00 MG eCW1 ([facility]) pregabalin 200 MG Oral Capsule [Lyrica] Lyrica 200 MG Lyrica 200 MG 12/20/2019 12:00:00 AM EDT active Lyrica 2 00 MG eCW1 ([facility]) pregabalin 200 MG Oral Capsule [Lyrica] Lyrica 200 MG Lyrica 200 MG 12/20/2019 12:00:00 AM EDT active Lyrica 2 00 MG eCW1 ([facility]) pregabalin 200 MG Oral Capsule [Lyrica] Lyrica 200 MG Lyrica 200 MG 12/20/2019 12:00:00 AM EDT active Lyrica 2 00 MG eCW1 ([facility]) pregabalin 200 MG Oral Capsule [Lyrica] Lyrica 200 MG Lyrica 200 MG 12/20/2019 12:00:00 AM EDT active Lyrica 2 00 MG eCW1 ([facility]) pregabalin 200 MG Oral Capsule [Lyrica] Lyrica 200 MG Lyrica 200 MG 12/20/2019 12:00:00 AM EDT active Lyrica 2 00 MG eCW1 ([facility]) pregabalin 200 MG Oral Capsule [Lyrica] Lyrica 200 MG Lyrica 200 MG 12/20/2019 12:00:00 AM EDT active Lyrica 2 00 MG eCW1 ([facility]) pregabalin 200 MG Oral Capsule [Lyrica] Lyrica 200 MG Lyrica 200 MG 12/20/2019 12:00:00 AM EDT active Lyrica 2 00 MG eCW1 ([facility]) pregabalin 200 MG Oral Capsule [Lyrica] Lyrica 200 MG Lyrica 200 MG 12/20/2019 12:00:00 AM EDT active Lyrica 2 00 MG eCW1 ([facility]) pregabalin 200 MG Oral Capsule [Lyrica] Lyrica 200 MG Lyrica 200 MG 12/20/2019 12:00:00 AM EDT active Lyrica 2 00 MG eCW1 ([facility]) pregabalin 200 MG Oral Capsule [Lyrica] Lyrica 200 MG Lyrica 200 MG 12/20/2019 12:00:00 AM EDT active Lyrica 2 00 MG eCW1 ([facility]) pregabalin 200 MG Oral Capsule [Lyrica] Lyrica 200 MG Lyrica 200 MG 12/20/2019 12:00:00 AM EDT active Lyrica 2 00 MG eCW1 ([facility]) pregabalin 200 MG Oral Capsule [Lyrica] Lyrica 200 MG Lyrica 200 MG 12/20/2019 12:00:00 AM EDT active Lyrica 2 00 MG eCW1 ([facility]) Acetaminophen 325 MG / Hydrocodone Mariana trate 5 MG Oral Tablet Hydrocodone- Acetaminophen 5-325 MG Hydrocodone-Acetaminophen 5-325 MG 12/17/2019 12:00:00 AM EDT active Hydrocodone-Aceta minophen 5-325 MG eCW1 ([facility]) Acetaminophen 325 MG / Hydrocodone Mariana trate 5 MG Oral Tablet Hydrocodone- Acetaminophen 5-325 MG Hydrocodone-Acetaminophen 5-325 MG 12/17/2019 12:00:00 AM EDT active Hydrocodone-Aceta minophen 5-325 MG eCW1 ([facility]) Acetaminophen 325 MG / Hydrocodone Mariana trate 5 MG Oral Tablet Hydrocodone- Acetaminophen 5-325 MG Hydrocodone-Acetaminophen 5-325 MG 12/17/2019 12:00:00 AM EDT active Hydrocodone-Aceta minophen 5-325 MG eCW1 ([facility]) Acetaminophen 325 MG / Hydrocodone Mariana trate 5 MG Oral Tablet Hydrocodone- Acetaminophen 5-325 MG Hydrocodone-Acetaminophen 5-325 MG 12/17/2019 12:00:00 AM EDT active Hydrocodone-Aceta minophen 5-325 MG eCW1 ([facility]) Acetaminophen 325 MG / Hydrocodone Mariana trate 5 MG Oral Tablet Hydrocodone- Acetaminophen 5-325 MG Hydrocodone-Acetaminophen 5-325 MG 12/17/2019 12:00:00 AM EDT active Hydrocodone-Aceta minophen 5-325 MG eCW1 ([facility]) Acetaminophen 325 MG / Hydrocodone Mariana trate 5 MG Oral Tablet Hydrocodone- Acetaminophen 5-325 MG Hydrocodone-Acetaminophen 5-325 MG 12/17/2019 12:00:00 AM EDT active Hydrocodone-Aceta minophen 5-325 MG eCW1 ([facility]) Acetaminophen 325 MG / Hydrocodone Mariana trate 5 MG Oral Tablet Hydrocodone- Acetaminophen 5-325 MG Hydrocodone-Acetaminophen 5-325 MG 12/17/2019 12:00:00 AM EDT active Hydrocodone-Aceta minophen 5-325 MG eCW1 ([facility]) Acetaminophen 325 MG / Hydrocodone Mariana trate 5 MG Oral Tablet Hydrocodone- Acetaminophen 5-325 MG Hydrocodone-Acetaminophen 5-325 MG 12/17/2019 12:00:00 AM EDT active Hydrocodone-Aceta minophen 5-325 MG eCW1 ([facility]) Acetaminophen 325 MG / Hydrocodone Mariana trate 5 MG Oral Tablet Hydrocodone- Acetaminophen 5-325 MG Hydrocodone-Acetaminophen 5-325 MG 12/17/2019 12:00:00 AM EDT active Hydrocodone-Aceta minophen 5-325 MG eCW1 ([facility]) Acetaminophen 325 MG / Hydrocodone Mariana trate 5 MG Oral Tablet Hydrocodone- Acetaminophen 5-325 MG Hydrocodone-Acetaminophen 5-325 MG 12/17/2019 12:00:00 AM EDT active Hydrocodone-Aceta minophen 5-325 MG eCW1 ([facility]) Acetaminophen 325 MG / Hydrocodone Mariana trate 5 MG Oral Tablet Hydrocodone- Acetaminophen 5-325 MG Hydrocodone-Acetaminophen 5-325 MG 12/17/2019 12:00:00 AM EDT active Hydrocodone-Aceta minophen 5-325 MG eCW1 ([facility]) Acetaminophen 325 MG / Hydrocodone Mariana trate 5 MG Oral Tablet Hydrocodone- Acetaminophen 5-325 MG Hydrocodone-Acetaminophen 5-325 MG 12/17/2019 12:00:00 AM EDT active Hydrocodone-Aceta minophen 5-325 MG eCW1 ([facility]) Acetaminophen 325 MG / Hydrocodone Mariana trate 5 MG Oral Tablet Hydrocodone- Acetaminophen 5-325 MG Hydrocodone-Acetaminophen 5-325 MG 12/17/2019 12:00:00 AM EDT active Hydrocodone-Aceta minophen 5-325 MG eCW1 ([facility]) Acetaminophen 325 MG / Hydrocodone Mariana trate 5 MG Oral Tablet Hydrocodone- Acetaminophen 5-325 MG Hydrocodone-Acetaminophen 5-325 MG 12/17/2019 12:00:00 AM EDT active Hydrocodone-Aceta minophen 5-325 MG eCW1 ([facility]) Acetaminophen 325 MG / Hydrocodone Mariana trate 5 MG Oral Tablet Hydrocodone- Acetaminophen 5-325 MG Hydrocodone-Acetaminophen 5-325 MG 12/17/2019 12:00:00 AM EDT active Hydrocodone-Aceta minophen 5-325 MG eCW1 ([facility]) Acetaminophen 325 MG / Hydrocodone Mariana trate 5 MG Oral Tablet Hydrocodone- Acetaminophen 5-325 MG Hydrocodone-Acetaminophen 5-325 MG 12/17/2019 12:00:00 AM EDT active Hydrocodone-Aceta minophen 5-325 MG eCW1 ([facility]) Acetaminophen 325 MG / Hydrocodone Mariana trate 5 MG Oral Tablet Hydrocodone- Acetaminophen 5-325 MG Hydrocodone-Acetaminophen 5-325 MG 12/17/2019 12:00:00 AM EDT active Hydrocodone-Aceta minophen 5-325 MG eCW1 ([facility]) Acetaminophen 325 MG / Hydrocodone Mariana trate 5 MG Oral Tablet Hydrocodone- Acetaminophen 5-325 MG Hydrocodone-Acetaminophen 5-325 MG 12/17/2019 12:00:00 AM EDT active Hydrocodone-Aceta minophen 5-325 MG eCW1 ([facility]) Acetaminophen 325 MG / Hydrocodone Mariana trate 5 MG Oral Tablet Hydrocodone- Acetaminophen 5-325 MG Hydrocodone-Acetaminophen 5-325 MG 12/17/2019 12:00:00 AM EDT active Hydrocodone-Aceta minophen 5-325 MG eCW1 ([facility]) 3 ML Insulin, Aspart, Human 100 UNT/ML P en Injector [NovoLog] NovoLog Flexpen 100 UNIT/ML NovoLog Flexpen 100 UNIT/ML 09/11/2019 12:00:00 AM EDT active NovoLog Flexpen 100 UNIT/ML eCW1 ([facility]) 3 ML Insulin, Aspart, Human 100 UNT/ML P en Injector [NovoLog] NovoLog Flexpen 100 UNIT/ML NovoLog Flexpen 100 UNIT/ML 09/11/2019 12:00:00 AM EDT active NovoLog Flexpen 100 UNIT/ML eCW1 ([facility]) 3 ML Insulin, Aspart, Human 100 UNT/ML P en Injector [NovoLog] NovoLog Flexpen 100 UNIT/ML NovoLog Flexpen 100 UNIT/ML 09/11/2019 12:00:00 AM EDT active NovoLog Flexpen 100 UNIT/ML eCW1 ([facility]) 3 ML Insulin, Aspart, Human 100 UNT/ML P en Injector [NovoLog] NovoLog Flexpen 100 UNIT/ML NovoLog Flexpen 100 UNIT/ML 09/11/2019 12:00:00 AM EDT active NovoLog Flexpen 100 UNIT/ML eCW1 ([facility]) 3 ML Insulin, Aspart, Human 100 UNT/ML P en Injector [NovoLog] NovoLog Flexpen 100 UNIT/ML NovoLog Flexpen 100 UNIT/ML 09/11/2019 12:00:00 AM EDT active NovoLog Flexpen 100 UNIT/ML eCW1 ([facility]) 3 ML Insulin, Aspart, Human 100 UNT/ML P en Injector [NovoLog] NovoLog Flexpen 100 UNIT/ML NovoLog Flexpen 100 UNIT/ML 09/11/2019 12:00:00 AM EDT active NovoLog Flexpen 100 UNIT/ML eCW1 ([facility]) 3 ML Insulin, Aspart, Human 100 UNT/ML P en Injector [NovoLog] NovoLog Flexpen 100 UNIT/ML NovoLog Flexpen 100 UNIT/ML 09/11/2019 12:00:00 AM EDT active NovoLog Flexpen 100 UNIT/ML eCW1 ([facility]) 3 ML Insulin, Aspart, Human 100 UNT/ML P en Injector [NovoLog] NovoLog Flexpen 100 UNIT/ML NovoLog Flexpen 100 UNIT/ML 09/11/2019 12:00:00 AM EDT active NovoLog Flexpen 100 UNIT/ML eCW1 ([facility]) Cymbalta 60 MG UNK 09/09/2019 12:00:00 AM EDT active Cymbalta 60 MG eCW1 ([facility]) Cymbalta 60 MG UNK 09/09/2019 12:00:00 AM EDT active Cymbalta 60 MG eCW1 ([facility]) Cymbalta 60 MG UNK 09/09/2019 12:00:00 AM EDT active Cymbalta 60 MG eCW1 ([facility]) Cymbalta 60 MG UNK 09/09/2019 12:00:00 AM EDT active Cymbalta 60 MG eCW1 ([facility]) Cymbalta 60 MG UNK 09/09/2019 12:00:00 AM EDT active Cymbalta 60 MG eCW1 ([facility]) Cymbalta 60 MG UNK 09/09/2019 12:00:00 AM EDT active Cymbalta 60 MG eCW1 ([facility]) Cymbalta 60 MG UNK 09/09/2019 12:00:00 AM EDT active Cymbalta 60 MG eCW1 ([facility]) Cymbalta 60 MG UNK 09/09/2019 12:00:00 AM EDT active Cymbalta 60 MG eCW1 ([facility]) Cymbalta 60 MG UNK 09/09/2019 12:00:00 AM EDT active Cymbalta 60 MG eCW1 ([facility]) Cymbalta 60 MG UNK 09/09/2019 12:00:00 AM EDT active Cymbalta 60 MG eCW1 ([facility]) Cymbalta 60 MG UNK 09/09/2019 12:00:00 AM EDT active Cymbalta 60 MG eCW1 ([facility]) Cymbalta 60 MG UNK 09/09/2019 12:00:00 AM EDT active Cymbalta 60 MG eCW1 ([facility]) Cymbalta 60 MG UNK 09/09/2019 12:00:00 AM EDT active Cymbalta 60 MG eCW1 ([facility]) Cymbalta 60 MG UNK 09/09/2019 12:00:00 AM EDT active Cymbalta 60 MG eCW1 ([facility]) Cymbalta 60 MG UNK 09/09/2019 12:00:00 AM EDT active Cymbalta 60 MG eCW1 ([facility]) Cymbalta 60 MG UNK 09/09/2019 12:00:00 AM EDT active Cymbalta 60 MG eCW1 ([facility]) Cymbalta 60 MG UNK 09/09/2019 12:00:00 AM EDT active Cymbalta 60 MG eCW1 ([facility]) Cymbalta 60 MG UNK 09/09/2019 12:00:00 AM EDT active Cymbalta 60 MG eCW1 ([facility]) Cymbalta 60 MG UNK 09/09/2019 12:00:00 AM EDT active Cymbalta 60 MG eCW1 ([facility]) Cymbalta 60 MG UNK 09/09/2019 12:00:00 AM EDT active Cymbalta 60 MG eCW1 ([facility]) Cymbalta 60 MG UNK 09/09/2019 12:00:00 AM EDT active Cymbalta 60 MG eCW1 ([facility]) Cymbalta 60 MG UNK 09/09/2019 12:00:00 AM EDT active Cymbalta 60 MG eCW1 ([facility]) Cymbalta 60 MG UNK 09/09/2019 12:00:00 AM EDT active Cymbalta 60 MG eCW1 ([facility]) Cymbalta 60 MG UNK 09/09/2019 12:00:00 AM EDT active Cymbalta 60 MG eCW1 ([facility]) Cymbalta 60 MG UNK 09/09/2019 12:00:00 AM EDT active Cymbalta 60 MG eCW1 ([facility]) Cymbalta 60 MG UNK 09/09/2019 12:00:00 AM EDT active Cymbalta 60 MG eCW1 ([facility]) Cymbalta 60 MG UNK 09/09/2019 12:00:00 AM EDT active Cymbalta 60 MG eCW1 ([facility]) Cymbalta 60 MG UNK 09/09/2019 12:00:00 AM EDT active Cymbalta 60 MG eCW1 ([facility]) Cymbalta 60 MG UNK 09/09/2019 12:00:00 AM EDT active Cymbalta 60 MG eCW1 ([facility]) Cymbalta 60 MG UNK 09/09/2019 12:00:00 AM EDT active Cymbalta 60 MG eCW1 ([facility]) Cymbalta 60 MG UNK 09/09/2019 12:00:00 AM EDT active Cymbalta 60 MG eCW1 ([facility]) Cymbalta 60 MG UNK 09/09/2019 12:00:00 AM EDT active Cymb[facility] 60 [facility] Cymbalta 60 MG UNK 09/09/2019 12:00:00 AM EDT active Cymbalta 60 MG [facility]CW1 ([facility]) Cymbalta 60 MG UNK 09/09/2019 12:00:00 AM EDT active Cymbalta 60 MG eCW1 ([facility]) Cymbalta 60 MG UNK 09/09/2019 12:00:00 AM EDT active Cymbalta 60 MG eCW1 ([facility]) Cymbalta 60 MG UNK 09/09/2019 12:00:00 AM EDT active Cymbalta 60 MG eCW1 ([facility]) Cymbalta 60 MG UNK 09/09/2019 12:00:00 AM EDT active Cymbalta 60 MG eCW1 ([facility]) Cymbalta 60 MG UNK 09/09/2019 12:00:00 AM EDT active Cymbalta 60 MG eCW1 ([facility]) normal saline flush 0.9 % injection 3 mL 23723-792-24 08/27/2019 02:00:00 PM EDT 3 mL Intravenous active 3 mL , Intravenous, PROTOCOL, First dose on Mon08/27/19 at 1400, Pre-op
flush per protocol, D/C Main IV fluid if appropriate
[facility] Medication administered onsite sodium chloride 0.9% (NS) infusion 2587-7938-25 08/27/2019 10:00:00 A M EDT Intravenous active at 100 mL/hr, Intravenous, Continuous, Starting Mon08/27/19 at 1000, For 2 hours, Post-op [facility] Medication administered onsite Acetaminophen 325 MG Oral Tablet acetaminophen (TYLENO L) 325 MG tablet 650 mg acetaminophen (TYLENOL) 325 MG tablet 650 mg 08/27/2019 08:45:10 AM EDT 650 mg Oral active 650 mg, Or al, Every 4 hours PRN, headaches, and non cardiac pain, Starting Mon08/27/19 at 0845, Post-op
"Maximum dose of acetaminophen is 4,000 mg from all sources in 24 hours."
[facility] Medication administered onsite Nitroglycerin 0.4 MG Sublingual Tablet n itroglycerin (NITROSTAT) SL tablet 0.4 mg nitroglycerin (NITROSTAT) SL tablet 0.4 mg 08/27/2019 08:45:10 A M EDT 0.4 mg Sublingual active 0.4 mg, S ublingual, Every 5 min PRN, chest pain, Starting Mon08/27/19 at 0845, Post-op
May administer every 5 minutes for 3 doses and call cardio lab MD.
[facility] Medication administered onsite iopamidol (ISOVUE-370) 76 % [id number] 08/27/2019 08:23:38 AM EDT active As needed, Starting Mon08/27/19 at 0823, Intra-Procedu re [facility] Medication administered onsite NITROGLYCERIN 0.4 MG/ML IV SOLN [id number] 08/27/2019 08:18:05 AM EDT active As needed, Starting 08/26 at 0818, Intra-Procedure [facility] Medication administered onsite 1 ML heparin sodium, porcine 1000 UNT/ML Injection hep kait (porcine) injection heparin (porcine) injection 08/27/2019 08:16:53 AM EDT active As needed, Starting Mon08/27/19 at 0816, Intra-Procedure [facility] Medication administered onsite lidocaine 1 % injection [id number] 08/27/2019 08:16:05 AM EDT active As needed, Starting Mon08/27/19 at 0816, Intra-Procedure [facility] Medication administered onsite 2 ML Midazolam 1 MG/ML Injection midazolam (VERSED) in jection midazolam (VERSED) injection 08/27/2019 08:09:04 AM EDT active As needed, Starting Mon08/27/19 at 0809, Intra-Procedure [facility] Medication administered onsite fentaNYL Citrate (PF) (SUBLIMAZE) injection [id number] 08/27/2019 08:08:54 AM EDT active As neede d, Starting Mon08/27/19 at 0808, Intra-Procedure [facility] Medication administered onsite sodium chloride 0.9% (NS) infusion [id number] 08/27/2019 07:00:00 AM EDT 100 mL/h Intravenous active at 100 m L/hr, 100 mL/hr, Intravenous, Continuous, Starting Mon08/27/19 at 0700, Pre-op
Start two hours prior to scheduled start time
[facility] Medication administered onsite Diphenhydramine Hydrochloride 50 MG Oral Capsule diphenhydrAMINE (BENADRYL) capsule 50 mg diphenhydrAMINE (BENADRYL) capsule 50 mg 08/27/2019 07 :00:00 AM EDT 50 mg Oral completed 50 mg, Oral, house calls nurse practitioner, Mon08/27/19 at 0700, For 1 dose, Pre-op [facility] Medication administered onsite normal saline flush 0.9 % injection 3 mL [id number] 08/27/2019 07:00:00 AM EDT 3 mL Intravenous active 3 mL , Intravenous, Every 8 hours (scheduled), First dose on Mon08/27/19 at 0700, Pre-op
Rapid push positive pressure flushing shall be performed with a 10 cc normal saline syringe to check the PATENCY of a PIV site prior to any infusion therapy initiation unless resistance is met.
[facility] Medication administered onsite apixaban 5 MG Oral Tablet [Eliquis] Eliquis 08/26/2019 12:00:00 AM E DT ORAL active [facility] ([facility]) 24 HR Isosorbide Mononitrate 30 MG Exten ded Release Oral Tablet isosorbide mononitrate (IMDUR) 30 MG 24 hr tablet isosorbide mononitrate (IMDUR) 30 MG 24 hr tablet 08/23/2019 12:00:00 AM EDT active Take 1 tablet daily two days prior to procedure [facility] Aspirin 81 MG Delayed Release Oral Tablet Aspirin Ec 2019 12:00:00 AM EDT ORAL active [facility] ( [facility]) clopidogrel 75 MG Oral Tablet Clopidogrel Bisulfate 08/13/2019 1 2:00:00 AM EDT ORAL active [facility] ( [facility]) icosapent ethyl 1000 MG Oral Capsule [Vascepa] Vascepa 08/13/2019 12:00:00 AM EDT ORAL active [facility] ([facility]) Fenofibrate 160 MG Oral Tablet Fenofibrate 2019 12:00:00 AM EDT ORAL completed [facility] ([facility]) Docusate Sodium 100 MG Oral Capsule [Colace] Colace 03/2019 12:00:00 AM EDT ORAL active [facility] ( [facility]) Omeprazole 40 MG Delayed Release Oral Capsule Omeprazole 2019 12:00:00 AM EDT ORAL active [facility] ([facility]) Cholecalciferol 2000 UNT Oral Capsule Vitamin D3 Super Stren gth 2019 12:00:00 AM EDT ORAL active M EDENT ([facility]) Chlorthalidone 25 MG Oral Tablet Chlorthalidone 2019 12:00:00 A M EDT ORAL active [facility] ([facility]) valsartan 80 MG Oral Tablet Valsartan 2019 12:00:00 AM EDT ORAL active [facility] ([facility]) pregabalin 150 MG Oral Capsule [Lyrica] Lyrica 2019 12:00:0 0 AM EDT ORAL active [facility] ([facility]) Albuterol 0.83 MG/ML Inhalant Solution Albuterol Sulfate 0 2019 12:00:00 AM EDT active [facility] ([facility]) duloxetine 60 MG Delayed Release Oral Capsule [Cymbalta] Cym nena 2019 12:00:00 AM EDT ORAL active M EDENT ([facility]) [facility] - [facility] - 08/09/2019 12:00:00 AM EDT active [facility] - eCW1 ([facility]) [facility] - [facility] - 08/09/2019 12:00:00 AM EDT active [facility] [facility] - eCW1 ([facility]) [facility] - [facility] - 08/09/2019 12:00:00 AM EDT active [facility] [facility] - eCW1 ([facility]) [facility] - [facility] - 08/09/2019 12:00:00 AM EDT active [facility] [facility] - eCW1 ([facility]) [facility] - [facility] - 08/09/2019 12:00:00 AM EDT active [facility] [facility] - eCW1 ([facility]) [facility] - [facility] - 08/09/2019 12:00:00 AM EDT active [facility] [facility] - eCW1 ([facility]) [facility] - [facility] - 08/09/2019 12:00:00 AM EDT active [employer] [facility] - eCW1 ([facility]) [facility] - [facility] - 08/09/2019 12:00:00 AM EDT active [facility] [facility] - eCW1 ([facility]) [facility] - [facility] - 08/09/2019 12:00:00 AM EDT active [facility] - eCW1 ([facility]) [facility] - [facility] - 08/09/2019 12:00:00 AM EDT active [facility] [facility] - eCW1 ([facility]) [facility] - [facility] - 08/09/2019 12:00:00 AM EDT active [facility] - eCW1 ([facility]) [facility] - [facility] - 08/09/2019 12:00:00 AM EDT active [facility] - eCW1 ([facility]) POLYETHYLENE GLYCOL 3350 105 MG/ML / Pot assium Chloride 0.84089 MEQ/ML / Sodium Bicarbonate 0.017 MEQ/ML / Sodium Chloride 0.0479 MEQ/ML Oral Solution [TriLyte] Trilyte 08/09/2019 12:00:00 AM EDT active [facility] ([facility] ) Magnesium Hydroxide 80 MG/ML Oral Suspension Milk Of Magnesi a 08/09/2019 12:00:00 AM EDT ORAL active M EDENT ([facility] ) [facility] - [facility] - 08/09/2019 12:00:00 AM EDT active [facility] - eCW1 ([facility]) [facility] - [facility] - 08/09/2019 12:00:00 AM EDT active [facility] - eCW1 ([facility]) [facility] - [facility] - 08/09/2019 12:00:00 AM EDT active [facility] - eCW1 ([facility]) [facility] - [facility] - 08/09/2019 12:00:00 AM EDT active [facility] - eCW1 ([facility]) [facility] - [facility] - 08/09/2019 12:00:00 AM EDT active [facility] - eCW1 ([facility]) [facility] - [facility] - 08/09/2019 12:00:00 AM EDT active [facility] - eCW1 ([facility]) [facility] - [facility] - 08/09/2019 12:00:00 AM EDT active [facility] - eCW1 ([facility]) [facility] - [facility] - 08/09/2019 12:00:00 AM EDT active [facility] - eCW1 ([facility]) [facility] - [facility] - 08/09/2019 12:00:00 AM EDT active [facility] - eCW1 ([facility]) [facility] - [facility] - 08/09/2019 12:00:00 AM EDT active [facility] - eCW1 ([facility]) [facility] - [facility] - 08/09/2019 12:00:00 AM EDT active [facility] - eCW1 ([facility]) [facility] - [facility] - 08/09/2019 12:00:00 AM EDT active [facility] - eCW1 ([facility]) [facility] - [facility] - 08/09/2019 12:00:00 AM EDT active [facility] - eCW1 ([facility]) [facility] - [facility] - 08/09/2019 12:00:00 AM EDT active [facility] - eCW1 ([facility]) [facility] - [facility] - 08/09/2019 12:00:00 AM EDT active [facility] - eCW1 ([facility]) [facility] - [facility] - 08/09/2019 12:00:00 AM EDT active [facility] - eCW1 ([facility]) [facility] - [facility] - 08/09/2019 12:00:00 AM EDT active [facility] - eCW1 ([facility]) [facility] - [facility] - 08/09/2019 12:00:00 AM EDT active [facility] - eCW1 ([facility]) [facility] - [facility] - 08/09/2019 12:00:00 AM EDT active [facility] - eCW1 ([facility]) [facility] - [facility] - 08/09/2019 12:00:00 AM EDT active [facility] - eCW1 ([facility]) [facility] - [facility] - 08/09/2019 12:00:00 AM EDT active [facility] - eCW1 ([facility]) [facility] - [facility] - 08/09/2019 12:00:00 AM EDT active [facility] - eCW1 ([facility]) [facility] - [facility] - 08/09/2019 12:00:00 AM EDT active [facility] - eCW1 ([facility]) [facility] - [facility] - 08/09/2019 12:00:00 AM EDT active [facility] - eCW1 ([facility]) [facility] - [facility] - 08/09/2019 12:00:00 AM EDT active [facility] - eCW1 ([facility]) [facility] - [facility] - 08/09/2019 12:00:00 AM EDT active 1 tab eCW1 ([facility]) [facility] - [facility] - 08/09/2019 12:00:00 AM EDT active [facility] - eCW1 ([facility]) [facility] - [facility] - 08/09/2019 12:00:00 AM EDT active [facility] - eCW1 ([facility]) 200 ACTUAT Albuterol 0.09 MG/ACTUAT Mete red Dose Inhaler [ProAir] ProAir HFA 108 (90 Base) MCG/ACT ProAir HFA 108 (90 Base) MCG/ACT 08/07/2019 12:00:00 AM EDT 2.0 {puff_as_needed} active Pro Air HFA 108 (90 Base) MCG/ACT [facility]CW[facility]) 200 ACTUAT Albuterol 0.09 MG/ACTUAT Mete red Dose Inhaler [ProAir] ProAir HFA 108 (90 Base) MCG/ACT ProAir HFA 108 (90 Base) MCG/ACT 08/07/2019 12:00:00 AM EDT 2.0 {puff_as_needed} active Pro Air HFA 108 (90 Base) MCG/ACT eCW1 [facility]) 200 ACTUAT Albuterol 0.09 MG/ACTUAT Mete red Dose Inhaler [ProAir] ProAir HFA 108 (90 Base) MCG/ACT ProAir HFA 108 (90 Base) MCG/ACT 08/07/2019 12:00:00 AM EDT 2.0 {puff_as_needed} active Pro Air HFA 108 (90 Base) MCG/ACT eCW1 [facility]) 200 ACTUAT Albuterol 0.09 MG/ACTUAT Mete red Dose Inhaler [ProAir] ProAir HFA 108 (90 Base) MCG/ACT ProAir HFA 108 (90 Base) MCG/ACT 08/07/2019 12:00:00 AM EDT 2.0 {puff_as_needed} active Pro Air HFA 108 (90 Base) MCG/ACT eCW1 ([facility]) valsartan 80 MG Oral Tablet Valsartan 80 MG Valsartan 80 MG 08/07/2019 12:00:00 AM EDT active Valsartan 80 MG e CW1 ([facility]) 200 ACTUAT Albuterol 0.09 MG/ACTUAT Mete red Dose Inhaler [ProAir] ProAir HFA 108 (90 Base) MCG/ACT ProAir HFA 108 (90 Base) MCG/ACT 08/07/2019 12:00:00 AM EDT 2.0 {puff_as_needed} active Pro Air HFA 108 (90 Base) MCG/ACT eCW1 [facility]) 200 ACTUAT Albuterol 0.09 MG/ACTUAT Mete red Dose Inhaler [ProAir] ProAir HFA 108 (90 Base) MCG/ACT ProAir HFA 108 (90 Base) MCG/ACT 08/07/2019 12:00:00 AM EDT 2.0 {puff_as_needed} active Pro Air HFA 108 (90 Base) MCG/ACT eCW1 ([facility]) 200 ACTUAT Albuterol 0.09 MG/ACTUAT Mete red Dose Inhaler [ProAir] ProAir HFA 108 (90 Base) MCG/ACT ProAir HFA 108 (90 Base) MCG/ACT 08/07/2019 12:00:00 AM EDT 2.0 {puff_as_needed} active Pro Air HFA 108 (90 Base) MCG/ACT eCW1 ([facility]) BD AutoShield Duo 30G X 5 MM BD AutoShield Duo 30G X 5 MM 12:00:00 AM EDT active BD AutoShield Duo 30G X 5 MM eCW1 ([facility]) 200 ACTUAT Albuterol 0.09 MG/ACTUAT Mete red Dose Inhaler [ProAir] ProAir HFA 108 (90 Base) MCG/ACT ProAir HFA 108 (90 Base) MCG/ACT 08/07/2019 12:00:00 AM EDT 2.0 {puff_as_needed} active Pro Air HFA 108 (90 Base) MCG/ACT eCW1 ([facility]) BD AutoShield Duo 30G X 5 MM BD AutoShield Duo 30G X 5 MM 12:00:00 AM EDT active BD AutoShield Duo 30G X 5 MM eCW1 ([facility]) BD AutoShield Duo 30G X 5 MM BD AutoShield Duo 30G X 5 MM 12:00:00 AM EDT active BD AutoShield Duo 30G X 5 MM eCW1 ([facility]) BD AutoShield Duo 30G X 5 MM BD AutoShield Duo 30G X 5 MM 12:00:00 AM EDT active BD AutoShield Duo 30G X 5 MM eCW1 ([facility]) 200 ACTUAT Albuterol 0.09 MG/ACTUAT Mete red Dose Inhaler [ProAir] ProAir HFA 108 (90 Base) MCG/ACT ProAir HFA 108 (90 Base) MCG/ACT 08/07/2019 12:00:00 AM EDT 2.0 {puff_as_needed} active Pro Air HFA 108 (90 Base) MCG/ACT eCW1 [facility]) 200 ACTUAT Albuterol 0.09 MG/ACTUAT Mete red Dose Inhaler [ProAir] ProAir HFA 108 (90 Base) MCG/ACT ProAir HFA 108 (90 Base) MCG/ACT 08/07/2019 12:00:00 AM EDT 2.0 {puff_as_needed} active Pro Air HFA 108 (90 Base) MCG/ACT eCW1 ([facility]) BD AutoShield Duo 30G X 5 MM BD AutoShield Duo 30G X 5 MM 12:00:00 AM EDT active BD AutoShield Duo 30G X 5 MM eCW1 ([facility]) BD AutoShield Duo 30G X 5 MM BD AutoShield Duo 30G X 5 MM 12:00:00 AM EDT active BD AutoShield Duo 30G X 5 MM eCW1 ([facility]) 200 ACTUAT Albuterol 0.09 MG/ACTUAT Mete red Dose Inhaler [ProAir] ProAir HFA 108 (90 Base) MCG/ACT ProAir HFA 108 (90 Base) MCG/ACT 08/07/2019 12:00:00 AM EDT 2.0 {puff_as_needed} active Pro Air HFA 108 (90 Base) MCG/ACT eCW1 [facility]) valsartan 80 MG Oral Tablet Valsartan 80 MG Valsartan 80 MG 08/07/2019 12:00:00 AM EDT active Valsartan 80 MG e CW1 ([facility]) valsartan 80 MG Oral Tablet Valsartan 80 MG Valsartan 80 MG 08/07/2019 12:00:00 AM EDT active Valsartan 80 MG e CW1 ([facility]) BD AutoShield Duo 30G X 5 MM BD AutoShield Duo 30G X 5 MM 12:00:00 AM EDT active BD AutoShield Duo 30G X 5 MM eCW1 ([facility]) 200 ACTUAT Albuterol 0.09 MG/ACTUAT Mete red Dose Inhaler [ProAir] ProAir HFA 108 (90 Base) MCG/ACT ProAir HFA 108 (90 Base) MCG/ACT 08/07/2019 12:00:00 AM EDT 2.0 {puff_as_needed} active Pro Air HFA 108 (90 Base) MCG/ACT eCW1 ([facility]) valsartan 80 MG Oral Tablet Valsartan 80 MG Valsartan 80 MG 08/07/2019 12:00:00 AM EDT active Valsartan 80 MG e CW1 ([facility]) 200 ACTUAT Albuterol 0.09 MG/ACTUAT Mete red Dose Inhaler [ProAir] ProAir HFA 108 (90 Base) MCG/ACT ProAir HFA 108 (90 Base) MCG/ACT 08/07/2019 12:00:00 AM EDT 2.0 {puff_as_needed} active Pro Air HFA 108 (90 Base) MCG/ACT eCW1 ([facility]) BD AutoShield Duo 30G X 5 MM BD AutoShield Duo 30G X 5 MM 12:00:00 AM EDT active BD AutoShield Duo 30G X 5 MM eCW1 ([facility]) BD AutoShield Duo 30G X 5 MM BD AutoShield Duo 30G X 5 MM 12:00:00 AM EDT active BD AutoShield Duo 30G X 5 MM eCW1 ([facility]) BD AutoShield Duo 30G X 5 MM BD AutoShield Duo 30G X 5 MM 12:00:00 AM EDT active BD AutoShield Duo 30G X 5 MM eCW1 ([facility]) BD AutoShield Duo 30G X 5 MM BD AutoShield Duo 30G X 5 MM 12:00:00 AM EDT active BD AutoShield Duo 30G X 5 MM eCW1 ([facility]) 200 ACTUAT Albuterol 0.09 MG/ACTUAT Mete red Dose Inhaler [ProAir] ProAir HFA 108 (90 Base) MCG/ACT ProAir HFA 108 (90 Base) MCG/ACT 08/07/2019 12:00:00 AM EDT 2.0 {puff_as_needed} active Pro Air HFA 108 (90 Base) MCG/ACT eCW1 [facility]) 200 ACTUAT Albuterol 0.09 MG/ACTUAT Mete red Dose Inhaler [ProAir] ProAir HFA 108 (90 Base) MCG/ACT ProAir HFA 108 (90 Base) MCG/ACT 08/07/2019 12:00:00 AM EDT 2.0 {puff_as_needed} active Pro Air HFA 108 (90 Base) MCG/ACT eCW1 ([facility]) BD AutoShield Duo 30G X 5 MM BD AutoShield Duo 30G X 5 MM 12:00:00 AM EDT active BD AutoShield Duo 30G X 5 MM eCW1 ([facility]) 200 ACTUAT Albuterol 0.09 MG/ACTUAT Mete red Dose Inhaler [ProAir] ProAir HFA 108 (90 Base) MCG/ACT ProAir HFA 108 (90 Base) MCG/ACT 08/07/2019 12:00:00 AM EDT 2.0 {puff_as_needed} active Pro Air HFA 108 (90 Base) MCG/ACT eCW1 ([facility]) 200 ACTUAT Albuterol 0.09 MG/ACTUAT Mete red Dose Inhaler [ProAir] ProAir HFA 108 (90 Base) MCG/ACT ProAir HFA 108 (90 Base) MCG/ACT 08/07/2019 12:00:00 AM EDT 2.0 {puff_as_needed} active Pro Air HFA 108 (90 Base) MCG/ACT eCW1 ([facility]) BD AutoShield Duo 30G X 5 MM BD AutoShield Duo 30G X 5 MM 12:00:00 AM EDT active BD AutoShield Duo 30G X 5 MM eCW1 ([facility]) 200 ACTUAT Albuterol 0.09 MG/ACTUAT Mete red Dose Inhaler [ProAir] ProAir HFA 108 (90 Base) MCG/ACT ProAir HFA 108 (90 Base) MCG/ACT 08/07/2019 12:00:00 AM EDT 2.0 {puff_as_needed} active Pro Air HFA 108 (90 Base) MCG/ACT eCW1 ([facility]) BD AutoShield Duo 30G X 5 MM BD AutoShield Duo 30G X 5 MM 12:00:00 AM EDT active BD AutoShield Duo 30G X 5 MM eCW1 ([facility]) valsartan 80 MG Oral Tablet Valsartan 80 MG Valsartan 80 MG 08/07/2019 12:00:00 AM EDT active Valsartan 80 MG e CW1 ([facility]) 200 ACTUAT Albuterol 0.09 MG/ACTUAT Mete red Dose Inhaler [ProAir] ProAir HFA 108 (90 Base) MCG/ACT ProAir HFA 108 (90 Base) MCG/ACT 08/07/2019 12:00:00 AM EDT 2.0 {puff_as_needed} active Pro Air HFA 108 (90 Base) MCG/ACT eCW1 [facility]) 200 ACTUAT Albuterol 0.09 MG/ACTUAT Mete red Dose Inhaler [ProAir] ProAir HFA 108 (90 Base) MCG/ACT ProAir HFA 108 (90 Base) MCG/ACT 08/07/2019 12:00:00 AM EDT 2.0 {puff_as_needed} active Pro Air HFA 108 (90 Base) MCG/ACT eCW1 ([facility]) 200 ACTUAT Albuterol 0.09 MG/ACTUAT Mete red Dose Inhaler [ProAir] ProAir HFA 108 (90 Base) MCG/ACT ProAir HFA 108 (90 Base) MCG/ACT 08/07/2019 12:00:00 AM EDT 2.0 {puff_as_needed} active Pro Air HFA 108 (90 Base) MCG/ACT eCW1 ([facility]) valsartan 80 MG Oral Tablet Valsartan 80 MG Valsartan 80 MG 08/07/2019 12:00:00 AM EDT active Valsartan 80 MG e CW1 ([facility]) BD AutoShield Duo 30G X 5 MM BD AutoShield Duo 30G X 5 MM 12:00:00 AM EDT active BD AutoShield Duo 30G X 5 MM eCW1 ([facility]) 200 ACTUAT Albuterol 0.09 MG/ACTUAT Mete red Dose Inhaler [ProAir] ProAir HFA 108 (90 Base) MCG/ACT ProAir HFA 108 (90 Base) MCG/ACT 08/07/2019 12:00:00 AM EDT 2.0 {puff_as_needed} active Pro Air HFA 108 (90 Base) MCG/ACT eCW1 ([facility]) valsartan 80 MG Oral Tablet Valsartan 80 MG Valsartan 80 MG 08/07/2019 12:00:00 AM EDT active Valsartan 80 MG e CW1 ([facility]) 200 ACTUAT Albuterol 0.09 MG/ACTUAT Mete red Dose Inhaler [ProAir] ProAir HFA 108 (90 Base) MCG/ACT ProAir HFA 108 (90 Base) MCG/ACT 08/07/2019 12:00:00 AM EDT 2.0 {puff_as_needed} active Pro Air HFA 108 (90 Base) MCG/ACT eCW1 [facility]) 200 ACTUAT Albuterol 0.09 MG/ACTUAT Mete red Dose Inhaler [ProAir] ProAir HFA 108 (90 Base) MCG/ACT ProAir HFA 108 (90 Base) MCG/ACT 08/07/2019 12:00:00 AM EDT 2.0 {puff_as_needed} active Pro Air HFA 108 (90 Base) MCG/ACT eCW1 ([facility]) 200 ACTUAT Albuterol 0.09 MG/ACTUAT Mete red Dose Inhaler [ProAir] ProAir HFA 108 (90 Base) MCG/ACT ProAir HFA 108 (90 Base) MCG/ACT 08/07/2019 12:00:00 AM EDT 2.0 {puff_as_needed} active Pro Air HFA 108 (90 Base) MCG/ACT eCW1 ([facility]) valsartan 80 MG Oral Tablet Valsartan 80 MG Valsartan 80 MG 08/07/2019 12:00:00 AM EDT active Valsartan 80 MG e CW1 ([facility]) 200 ACTUAT Albuterol 0.09 MG/ACTUAT Mete red Dose Inhaler [ProAir] ProAir HFA 108 (90 Base) MCG/ACT ProAir HFA 108 (90 Base) MCG/ACT 08/07/2019 12:00:00 AM EDT 2.0 {puff_as_needed} active Pro Air HFA 108 (90 Base) MCG/ACT eCW1 ([facility]) 200 ACTUAT Albuterol 0.09 MG/ACTUAT Mete red Dose Inhaler [ProAir] ProAir HFA 108 (90 Base) MCG/ACT ProAir HFA 108 (90 Base) MCG/ACT 08/07/2019 12:00:00 AM EDT 2.0 {puff_as_needed} active Pro Air HFA 108 (90 Base) MCG/ACT eCW1 [facility]) 200 ACTUAT Albuterol 0.09 MG/ACTUAT Mete red Dose Inhaler [ProAir] ProAir HFA 108 (90 Base) MCG/ACT ProAir HFA 108 (90 Base) MCG/ACT 08/07/2019 12:00:00 AM EDT 2.0 {puff_as_needed} active Pro Air HFA 108 (90 Base) MCG/ACT eCW1 ([facility]) valsartan 80 MG Oral Tablet Valsartan 80 MG Valsartan 80 MG 08/07/2019 12:00:00 AM EDT active Valsartan 80 MG e CW1 ([facility]) BD AutoShield Duo 30G X 5 MM BD AutoShield Duo 30G X 5 MM 12:00:00 AM EDT active BD AutoShield Duo 30G X 5 MM eCW1 ([facility]) 200 ACTUAT Albuterol 0.09 MG/ACTUAT Mete red Dose Inhaler [ProAir] ProAir HFA 108 (90 Base) MCG/ACT ProAir HFA 108 (90 Base) MCG/ACT 08/07/2019 12:00:00 AM EDT 2.0 {puff_as_needed} active Pro Air HFA 108 (90 Base) MCG/ACT eCW1 ([facility]) BD AutoShield Duo 30G X 5 MM BD AutoShield Duo 30G X 5 MM 12:00:00 AM EDT active BD AutoShield Duo 30G X 5 MM eCW1 ([facility]) 200 ACTUAT Albuterol 0.09 MG/ACTUAT Mete red Dose Inhaler [ProAir] ProAir HFA 108 (90 Base) MCG/ACT ProAir HFA 108 (90 Base) MCG/ACT 08/07/2019 12:00:00 AM EDT 2.0 {puff_as_needed} active Pro Air HFA 108 (90 Base) MCG/ACT eCW1 ([facility]) 200 ACTUAT Albuterol 0.09 MG/ACTUAT Mete red Dose Inhaler [ProAir] ProAir HFA 108 (90 Base) MCG/ACT ProAir HFA 108 (90 Base) MCG/ACT 08/07/2019 12:00:00 AM EDT 2.0 {puff_as_needed} active Pro Air HFA 108 (90 Base) MCG/ACT eCW1 ([facility]) BD AutoShield Duo 30G X 5 MM BD AutoShield Duo 30G X 5 MM 12:00:00 AM EDT active BD AutoShield Duo 30G X 5 MM eCW1 ([facility]) BD AutoShield Duo 30G X 5 MM BD AutoShield Duo 30G X 5 MM 12:00:00 AM EDT active BD AutoShield Duo 30G X 5 MM eCW1 ([facility]) BD AutoShield Duo 30G X 5 MM BD AutoShield Duo 30G X 5 MM 12:00:00 AM EDT active BD AutoShield Duo 30G X 5 MM eCW1 ([facility]) BD AutoShield Duo 30G X 5 MM BD AutoShield Duo 30G X 5 MM 12:00:00 AM EDT active BD AutoShield Duo 30G X 5 MM [facility] BD AutoShield Duo 30G X 5 MM BD AutoShield Duo 30G X 5 MM 12:00:00 AM EDT active BD AutoShield Duo 30G X 5 MM eCW1 ([facility]) 200 ACTUAT Albuterol 0.09 MG/ACTUAT Mete red Dose Inhaler [ProAir] ProAir HFA 108 (90 Base) MCG/ACT ProAir HFA 108 (90 Base) MCG/ACT 08/07/2019 12:00:00 AM EDT 2.0 {puff_as_needed} active Pro Air HFA 108 (90 Base) MCG/ACT eCW1 ([facility]) BD AutoShield Duo 30G X 5 MM BD AutoShield Duo 30G X 5 MM 12:00:00 AM EDT active BD AutoShield Duo 30G X 5 MM eCW1 ([facility]) BD AutoShield Duo 30G X 5 MM BD AutoShield Duo 30G X 5 MM 12:00:00 AM EDT active BD AutoShield Duo 30G X 5 MM eCW1 ([facility]) valsartan 80 MG Oral Tablet Valsartan 80 MG Valsartan 80 MG 08/07/2019 12:00:00 AM EDT active 1/ 2 tab eCW1 ([facility]) BD AutoShield Duo 30G X 5 MM BD AutoShield Duo 30G X 5 MM 12:00:00 AM EDT active BD AutoShield Duo 30G X 5 MM eCW1 ([facility]) BD AutoShield Duo 30G X 5 MM BD AutoShield Duo 30G X 5 MM 12:00:00 AM EDT active BD AutoShield Duo 30G X 5 MM eCW1 ([facility]) 200 ACTUAT Albuterol 0.09 MG/ACTUAT Mete red Dose Inhaler [ProAir] ProAir HFA 108 (90 Base) MCG/ACT ProAir HFA 108 (90 Base) MCG/ACT 08/07/2019 12:00:00 AM EDT 2.0 {puff_as_needed} active Pro Air HFA 108 (90 Base) MCG/ACT eCW1 ([facility]) valsartan 80 MG Oral Tablet Valsartan 80 MG Valsartan 80 MG 08/07/2019 12:00:00 AM EDT active Valsartan 80 MG e CW1 ([facility]) BD AutoShield Duo 30G X 5 MM BD AutoShield Duo 30G X 5 MM 12:00:00 AM EDT active BD AutoShield Duo 30G X 5 MM eCW1 ([facility]) 200 ACTUAT Albuterol 0.09 MG/ACTUAT Mete red Dose Inhaler [ProAir] ProAir HFA 108 (90 Base) MCG/ACT ProAir HFA 108 (90 Base) MCG/ACT 08/07/2019 12:00:00 AM EDT 2.0 {puff_as_needed} active Pro Air HFA 108 (90 Base) MCG/ACT eCW1 ([facility]) BD AutoShield Duo 30G X 5 MM BD AutoShield Duo 30G X 5 MM 12:00:00 AM EDT active BD AutoShield Duo 30G X 5 MM eCW1 ([facility]) 200 ACTUAT Albuterol 0.09 MG/ACTUAT Mete red Dose Inhaler [ProAir] ProAir HFA 108 (90 Base) MCG/ACT ProAir HFA 108 (90 Base) MCG/ACT 08/07/2019 12:00:00 AM EDT 2.0 {puff_as_needed} active Pro Air HFA 108 (90 Base) MCG/ACT eCW1 ([facility]) 200 ACTUAT Albuterol 0.09 MG/ACTUAT Mete red Dose Inhaler [ProAir] ProAir HFA 108 (90 Base) MCG/ACT ProAir HFA 108 (90 Base) MCG/ACT 08/07/2019 12:00:00 AM EDT 2.0 {puff_as_needed} active Pro Air HFA 108 (90 Base) MCG/ACT eCW1 ([facility]) BD AutoShield Duo 30G X 5 MM BD AutoShield Duo 30G X 5 MM 12:00:00 AM EDT active BD AutoShield Duo 30G X 5 MM eCW1 ([facility]) BD AutoShield Duo 30G X 5 MM BD AutoShield Duo 30G X 5 MM 12:00:00 AM EDT active BD AutoShield Duo 30G X 5 MM eCW1 ([facility]) BD AutoShield Duo 30G X 5 MM BD AutoShield Duo 30G X 5 MM 12:00:00 AM EDT active BD AutoShield Duo 30G X 5 MM eCW1 ([facility]) BD AutoShield Duo 30G X 5 MM BD AutoShield Duo 30G X 5 MM 12:00:00 AM EDT active BD AutoShield Duo 30G X 5 MM eCW1 ([facility]) BD AutoShield Duo 30G X 5 MM BD AutoShield Duo 30G X 5 MM 12:00:00 AM EDT active BD AutoShield Duo 30G X 5 MM eCW1 ([facility]) 200 ACTUAT Albuterol 0.09 MG/ACTUAT Mete red Dose Inhaler [ProAir] ProAir HFA 108 (90 Base) MCG/ACT ProAir HFA 108 (90 Base) MCG/ACT 08/07/2019 12:00:00 AM EDT 2.0 {puff_as_needed} active Pro Air HFA 108 (90 Base) MCG/ACT eCW1 ([facility]) BD AutoShield Duo 30G X 5 MM BD AutoShield Duo 30G X 5 MM 12:00:00 AM EDT active BD AutoShield Duo 30G X 5 MM eCW1 ([facility]) BD AutoShield Duo 30G X 5 MM BD AutoShield Duo 30G X 5 MM 12:00:00 AM EDT active BD AutoShield Duo 30G X 5 MM eCW1 ([facility]) BD AutoShield Duo 30G X 5 MM BD AutoShield Duo 30G X 5 MM 12:00:00 AM EDT active BD AutoShield Duo 30G X 5 MM eCW1 ([facility]) BD AutoShield Duo 30G X 5 MM BD AutoShield Duo 30G X 5 MM 12:00:00 AM EDT active BD AutoShield Duo 30G X 5 MM eCW1 ([facility]) 200 ACTUAT Albuterol 0.09 MG/ACTUAT Mete red Dose Inhaler [ProAir] ProAir HFA 108 (90 Base) MCG/ACT ProAir HFA 108 (90 Base) MCG/ACT 08/07/2019 12:00:00 AM EDT 2.0 {puff_as_needed} active Pro Air HFA 108 (90 Base) MCG/ACT eCW1 ([facility]) BD AutoShield Duo 30G X 5 MM BD AutoShield Duo 30G X 5 MM 12:00:00 AM EDT active BD AutoShield Duo 30G X 5 MM eCW1 ([facility]) BD AutoShield Duo 30G X 5 MM BD AutoShield Duo 30G X 5 MM 12:00:00 AM EDT active BD AutoShield Duo 30G X 5 MM eCW1 ([facility]) 200 ACTUAT Albuterol 0.09 MG/ACTUAT Mete red Dose Inhaler [ProAir] ProAir HFA 108 (90 Base) MCG/ACT ProAir HFA 108 (90 Base) MCG/ACT 08/07/2019 12:00:00 AM EDT 2.0 {puff_as_needed} active Pro Air HFA 108 (90 Base) MCG/ACT eCW1 [facility]) 200 ACTUAT Albuterol 0.09 MG/ACTUAT Mete red Dose Inhaler [ProAir] ProAir HFA 108 (90 Base) MCG/ACT ProAir HFA 108 (90 Base) MCG/ACT 08/07/2019 12:00:00 AM EDT 2.0 {puff_as_needed} active Pro Air HFA 108 (90 Base) MCG/ACT eCW1 ([facility]) BD AutoShield Duo 30G X 5 MM BD AutoShield Duo 30G X 5 MM 12:00:00 AM EDT active BD AutoShield Duo 30G X 5 MM eCW1 ([facility]) Walker - Walker - 07/30/2019 12:00:00 AM EDT activ e Walker - eCW1 ([facility]) Walker - Walker - 07/30/2019 12:00:00 AM EDT activ e Walker - eCW1 ([facility]) Walker - Walker - 07/30/2019 12:00:00 AM EDT activ e Walker - eCW1 ([facility]) Walker - Walker - 07/30/2019 12:00:00 AM EDT activ e Walker - eCW1 ([facility]) Walker - Walker - 07/30/2019 12:00:00 AM EDT activ e Walker - eCW1 ([facility]) Walker - Walker - 07/30/2019 12:00:00 AM EDT activ e Walker - eCW1 ([facility]) Walker - Walker - 07/30/2019 12:00:00 AM EDT activ e Walker - eCW1 ([facility]) Walker - Walker - 07/30/2019 12:00:00 AM EDT activ e Walker - eCW1 ([facility]) Walker - Walker - 07/30/2019 12:00:00 AM EDT activ e Walker - eCW1 ([facility]) Walker - Walker - 07/30/2019 12:00:00 AM EDT activ e Walker - eCW1 ([facility]) Walker - Walker - 07/30/2019 12:00:00 AM EDT activ e Walker - eCW1 ([facility]) Walker - Walker - 07/30/2019 12:00:00 AM EDT activ e Walker - eCW1 ([facility]) Walker - Walker - 07/30/2019 12:00:00 AM EDT activ e Walker - eCW1 ([facility]) Walker - Walker - 07/30/2019 12:00:00 AM EDT activ e Walker - eCW1 ([facility]) Walker - Walker - 07/30/2019 12:00:00 AM EDT active 4 wheeled walker with seat eCW1 ([facility]) Walker - Walker - 07/30/2019 12:00:00 AM EDT activ e Walker - eCW1 ([facility]) Walker - Walker - 07/30/2019 12:00:00 AM EDT activ e Walker - eCW1 ([facility]) Walker - Walker - 07/30/2019 12:00:00 AM EDT activ e Walker - eCW1 ([facility]) Walker - Walker - 07/30/2019 12:00:00 AM EDT activ e Walker - eCW1 ([facility]) Walker - Walker - 07/30/2019 12:00:00 AM EDT activ e Walker - eCW1 ([facility]) Walker - Walker - 07/30/2019 12:00:00 AM EDT activ e Walker - eCW1 ([facility]) Walker - Walker - 07/30/2019 12:00:00 AM EDT activ e Walker - eCW1 ([facility]) Walker - Walker - 07/30/2019 12:00:00 AM EDT activ e Walker - eCW1 ([facility]) Walker - Walker - 07/30/2019 12:00:00 AM EDT activ e Walker - eCW1 ([facility]) Walker - Walker - 07/30/2019 12:00:00 AM EDT activ e Walker - eCW1 ([facility]) Walker - Walker - 07/30/2019 12:00:00 AM EDT activ e Walker - eCW1 ([facility]) Walker - Walker - 07/30/2019 12:00:00 AM EDT activ e Walker - eCW1 ([facility]) Walker - Walker - 07/30/2019 12:00:00 AM EDT activ e Walker - eCW1 ([facility]) Walker - Walker - 07/30/2019 12:00:00 AM EDT activ e Walker - eCW1 ([facility]) Walker - Walker - 07/30/2019 12:00:00 AM EDT activ e Walker - eCW1 ([facility]) Walker - Walker - 07/30/2019 12:00:00 AM EDT activ e Walker - eCW1 ([facility]) Walker - Walker - 07/30/2019 12:00:00 AM EDT activ e Walker - eCW1 ([facility]) Walker - Walker - 07/30/2019 12:00:00 AM EDT activ e Walker - eCW1 ([facility]) Walker - Walker - 07/30/2019 12:00:00 AM EDT activ e Walker - eCW1 ([facility]) Walker - Walker - 07/30/2019 12:00:00 AM EDT activ e Walker - eCW1 ([facility]) Walker - Walker - 07/30/2019 12:00:00 AM EDT activ e Walker - eCW1 ([facility]) Walker - Walker - 07/30/2019 12:00:00 AM EDT activ e Walker - eCW1 ([facility]) Walker - Walker - 07/30/2019 12:00:00 AM EDT activ e Walker - eCW1 ([facility]) Walker - Walker - 07/30/2019 12:00:00 AM EDT activ e Walker - eCW1 ([facility]) Walker - Walker - 07/30/2019 12:00:00 AM EDT activ e Walker - eCW1 ([facility]) Walker - Walker - 07/30/2019 12:00:00 AM EDT activ e Walker - eCW1 ([facility]) Walker - Walker - 07/18/2019 12:00:00 AM EDT active 4 wheeled walker with seat eCW1 ([facility]) May Have - UNK 07/16/2019 12:00:00 AM EDT active May Have - eCW1 ([facility]) May Have - UNK 07/16/2019 12:00:00 AM EDT active May Have - eCW1 ([facility]) May Have - UNK 07/16/2019 12:00:00 AM EDT active May Have - eCW1 ([facility]) pregabalin 150 MG Oral Capsule [Lyrica] Lyrica 150 MG Lyrica 150 MG 07/16/2019 12:00:00 AM EDT active 1 capsul e eCW1 ([facility]) May Have - UNK 07/16/2019 12:00:00 AM EDT active May Have - eCW1 ([facility]) May Have - UNK 07/16/2019 12:00:00 AM EDT active May Have - eCW1 ([facility]) May Have - UNK 07/16/2019 12:00:00 AM EDT active May Have - eCW1 ([facility]) May Have - UNK 07/16/2019 12:00:00 AM EDT active May Have - eCW1 ([facility]) May Have - UNK 07/16/2019 12:00:00 AM EDT active May Have - eCW1 ([facility]) May Have - UNK 07/16/2019 12:00:00 AM EDT active May Have - eCW1 ([facility]) May Have - UNK 07/16/2019 12:00:00 AM EDT active May Have - eCW1 ([facility]) May Have - UNK 07/16/2019 12:00:00 AM EDT active May Have - eCW1 ([facility]) May Have - UNK 07/16/2019 12:00:00 AM EDT active May Have - eCW1 ([facility]) May Have - UNK 07/16/2019 12:00:00 AM EDT active May Have - eCW1 ([facility]) May Have - UNK 07/16/2019 12:00:00 AM EDT active compression stocking 15mmhg circ. at calf 43cm, size 12 shoe women's entire sock included eCW1 ([facility]) May Have - UNK 07/16/2019 12:00:00 AM EDT active May Have - eCW1 ([facility]) May Have - UNK 07/16/2019 12:00:00 AM EDT active May Have - eCW1 ([facility]) May Have - UNK 07/16/2019 12:00:00 AM EDT active May Have - eCW1 ([facility]) May Have - UNK 07/16/2019 12:00:00 AM EDT active May Have - eCW1 ([facility]) May Have - UNK 07/16/2019 12:00:00 AM EDT active May Have - eCW1 ([facility]) May Have - UNK 07/16/2019 12:00:00 AM EDT active May Have - eCW1 ([facility]) May Have - UNK 07/16/2019 12:00:00 AM EDT active May Have - eCW1 ([facility]) May Have - UNK 07/16/2019 12:00:00 AM EDT active May Have - eCW1 ([facility]) May Have - UNK 07/16/2019 12:00:00 AM EDT active May Have - eCW1 ([facility]) May Have - UNK 07/16/2019 12:00:00 AM EDT active May Have - eCW1 ([facility]) pregabalin 150 MG Oral Capsule [Lyrica] Lyrica 150 MG Lyrica 150 MG 07/16/2019 12:00:00 AM EDT 1.0 {capsule} active L yrica 150 MG eCW1 ([facility]) May Have - UNK 07/16/2019 12:00:00 AM EDT active May Have - eCW1 ([facility]) May Have - UNK 07/16/2019 12:00:00 AM EDT active May Have - eCW1 ([facility]) May Have - UNK 07/16/2019 12:00:00 AM EDT active May Have - eCW1 ([facility]) May Have - UNK 07/16/2019 12:00:00 AM EDT active May Have - eCW1 ([facility]) May Have - UNK 07/16/2019 12:00:00 AM EDT active May Have - eCW1 ([facility]) May Have - UNK 07/16/2019 12:00:00 AM EDT active May Have - eCW1 ([facility]) pregabalin 150 MG Oral Capsule [Lyrica] Lyrica 150 MG Lyrica 150 MG 07/16/2019 12:00:00 AM EDT 1.0 {capsule} active L yrica 150 MG eCW1 ([facility]) May Have - UNK 07/16/2019 12:00:00 AM EDT active May Have - eCW1 ([facility]) May Have - UNK 07/16/2019 12:00:00 AM EDT active May Have - eCW1 ([facility]) May Have - UNK 07/16/2019 12:00:00 AM EDT active May Have - eCW1 ([facility]) pregabalin 150 MG Oral Capsule [Lyrica] Lyrica 150 MG Lyrica 150 MG 07/16/2019 12:00:00 AM EDT active 1 capsul e eCW1 ([facility]) May Have - UNK 07/16/2019 12:00:00 AM EDT active May Have - eCW1 ([facility]) May Have - UNK 07/16/2019 12:00:00 AM EDT active May Have - eCW1 ([facility]) May Have - UNK 07/16/2019 12:00:00 AM EDT active May Have - eCW1 ([facility]) May Have - UNK 07/16/2019 12:00:00 AM EDT active May Have - eCW1 ([facility]) May Have - UNK 07/16/2019 12:00:00 AM EDT active May Have - eCW1 ([facility]) pregabalin 150 MG Oral Capsule [Lyrica] Lyrica 150 MG Lyrica 150 MG 07/16/2019 12:00:00 AM EDT 1.0 {capsule} active L yrica 150 MG eCW1 ([facility]) pregabalin 150 MG Oral Capsule [Lyrica] Lyrica 150 MG Lyrica 150 MG 07/16/2019 12:00:00 AM EDT 1.0 {capsule} active L yrica 150 MG eCW1 ([facility]) May Have - UNK 07/16/2019 12:00:00 AM EDT active May Have - eCW1 ([facility]) May Have - UNK 07/16/2019 12:00:00 AM EDT active May Have - eCW1 ([facility]) May Have - UNK 07/16/2019 12:00:00 AM EDT active May Have - eCW1 ([facility]) 8 HR Acetaminophen 650 MG Extended Relea se Oral Tablet [Tylenol] Tylenol 8 Hour Arthritis Pain 650 MG Tylenol 8 Hour Arthritis Pain 650 MG 07/04/2019 12:00: 00 AM EDT active Tylenol 8 Hour Ar thritis Pain 650 MG eCW1 ([facility]) 8 HR Acetaminophen 650 MG Extended Relea se Oral Tablet [Tylenol] Tylenol 8 Hour Arthritis Pain 650 MG Tylenol 8 Hour Arthritis Pain 650 MG 07/04/2019 12:00: 00 AM EDT active Tylenol 8 Hour Ar thritis Pain 650 MG eCW1 ([facility]) 8 HR Acetaminophen 650 MG Extended Relea se Oral Tablet [Tylenol] Tylenol 8 Hour Arthritis Pain 650 MG Tylenol 8 Hour Arthritis Pain 650 MG 07/04/2019 12:00: 00 AM EDT active Tylenol 8 Hour Ar thritis Pain 650 MG eCW1 ([facility]) 8 HR Acetaminophen 650 MG Extended Relea se Oral Tablet [Tylenol] Tylenol 8 Hour Arthritis Pain 650 MG Tylenol 8 Hour Arthritis Pain 650 MG 07/04/2019 12:00: 00 AM EDT active Tylenol 8 Hour Ar thritis Pain 650 MG eCW1 ([facility]) 8 HR Acetaminophen 650 MG Extended Relea se Oral Tablet [Tylenol] Tylenol 8 Hour Arthritis Pain 650 MG Tylenol 8 Hour Arthritis Pain 650 MG 07/04/2019 12:00: 00 AM EDT active Tylenol 8 Hour Ar thritis Pain 650 MG eCW1 ([facility]) 8 HR Acetaminophen 650 MG Extended Relea se Oral Tablet [Tylenol] Tylenol 8 Hour Arthritis Pain 650 MG Tylenol 8 Hour Arthritis Pain 650 MG 07/04/2019 12:00: 00 AM EDT active Tylenol 8 Hour Ar thritis Pain 650 MG eCW1 ([facility]) 8 HR Acetaminophen 650 MG Extended Relea se Oral Tablet [Tylenol] Tylenol 8 Hour Arthritis Pain 650 MG Tylenol 8 Hour Arthritis Pain 650 MG 07/04/2019 12:00: 00 AM EDT active Tylenol 8 Hour Ar thritis Pain 650 MG eCW1 ([facility]) 8 HR Acetaminophen 650 MG Extended Relea se Oral Tablet [Tylenol] Tylenol 8 Hour Arthritis Pain 650 MG Tylenol 8 Hour Arthritis Pain 650 MG 07/04/2019 12:00: 00 AM EDT active Tylenol 8 Hour Ar thritis Pain 650 MG eCW1 ([facility]) 8 HR Acetaminophen 650 MG Extended Relea se Oral Tablet [Tylenol] Tylenol 8 Hour Arthritis Pain 650 MG Tylenol 8 Hour Arthritis Pain 650 MG 07/04/2019 12:00: 00 AM EDT active Tylenol 8 Hour Ar thritis Pain 650 MG eCW1 ([facility]) 8 HR Acetaminophen 650 MG Extended Relea se Oral Tablet [Tylenol] Tylenol 8 Hour Arthritis Pain 650 MG Tylenol 8 Hour Arthritis Pain 650 MG 07/04/2019 12:00: 00 AM EDT active Tylenol 8 Hour Ar thritis Pain 650 MG eCW1 ([facility]) 8 HR Acetaminophen 650 MG Extended Relea se Oral Tablet [Tylenol] Tylenol 8 Hour Arthritis Pain 650 MG Tylenol 8 Hour Arthritis Pain 650 MG 07/04/2019 12:00: 00 AM EDT active Tylenol 8 Hour Ar thritis Pain 650 MG eCW1 ([facility]) 8 HR Acetaminophen 650 MG Extended Relea se Oral Tablet [Tylenol] Tylenol 8 Hour Arthritis Pain 650 MG Tylenol 8 Hour Arthritis Pain 650 MG 07/04/2019 12:00: 00 AM EDT active Tylenol 8 Hour Ar thritis Pain 650 MG eCW1 ([facility]) 8 HR Acetaminophen 650 MG Extended Relea se Oral Tablet [Tylenol] Tylenol 8 Hour Arthritis Pain 650 MG Tylenol 8 Hour Arthritis Pain 650 MG 07/04/2019 12:00: 00 AM EDT active Tylenol 8 Hour Ar thritis Pain 650 MG eCW1 ([facility]) 8 HR Acetaminophen 650 MG Extended Relea se Oral Tablet [Tylenol] Tylenol 8 Hour Arthritis Pain 650 MG Tylenol 8 Hour Arthritis Pain 650 MG 07/04/2019 12:00: 00 AM EDT active Tylenol 8 Hour Ar thritis Pain 650 MG eCW1 ([facility]) 8 HR Acetaminophen 650 MG Extended Relea se Oral Tablet [Tylenol] Tylenol 8 Hour Arthritis Pain 650 MG Tylenol 8 Hour Arthritis Pain 650 MG 07/04/2019 12:00: 00 AM EDT active 180 eCW1 [facility] 8 HR Acetaminophen 650 MG Extended Relea se Oral Tablet [Tylenol] Tylenol 8 Hour Arthritis Pain 650 MG Tylenol 8 Hour Arthritis Pain 650 MG 07/04/2019 12:00: 00 AM EDT active Tylenol 8 Hour Ar thritis Pain 650 MG eCW1 ([facility]) 8 HR Acetaminophen 650 MG Extended Relea se Oral Tablet [Tylenol] Tylenol 8 Hour Arthritis Pain 650 MG Tylenol 8 Hour Arthritis Pain 650 MG 07/04/2019 12:00: 00 AM EDT active Tylenol 8 Hour Ar thritis Pain 650 MG eCW1 ([facility]) 8 HR Acetaminophen 650 MG Extended Relea se Oral Tablet [Tylenol] Tylenol 8 Hour Arthritis Pain 650 MG Tylenol 8 Hour Arthritis Pain 650 MG 07/04/2019 12:00: 00 AM EDT active Tylenol 8 Hour Ar thritis Pain 650 MG eCW1 ([facility]) 8 HR Acetaminophen 650 MG Extended Relea se Oral Tablet [Tylenol] Tylenol 8 Hour Arthritis Pain 650 MG Tylenol 8 Hour Arthritis Pain 650 MG 07/04/2019 12:00: 00 AM EDT active Tylenol 8 Hour Ar thritis Pain 650 MG eCW1 ([facility]) 8 HR Acetaminophen 650 MG Extended Relea se Oral Tablet [Tylenol] Tylenol 8 Hour Arthritis Pain 650 MG Tylenol 8 Hour Arthritis Pain 650 MG 07/04/2019 12:00: 00 AM EDT active Tylenol 8 Hour Ar thritis Pain 650 MG eCW1 ([facility]) 8 HR Acetaminophen 650 MG Extended Relea se Oral Tablet [Tylenol] Tylenol 8 Hour Arthritis Pain 650 MG Tylenol 8 Hour Arthritis Pain 650 MG 07/04/2019 12:00: 00 AM EDT active Tylenol 8 Hour Ar thritis Pain 650 MG eCW1 ([facility]) 8 HR Acetaminophen 650 MG Extended Relea se Oral Tablet [Tylenol] Tylenol 8 Hour Arthritis Pain 650 MG Tylenol 8 Hour Arthritis Pain 650 MG 07/04/2019 12:00: 00 AM EDT active Tylenol 8 Hour Ar thritis Pain 650 MG eCW1 ([facility]) 8 HR Acetaminophen 650 MG Extended Relea se Oral Tablet [Tylenol] Tylenol 8 Hour Arthritis Pain 650 MG Tylenol 8 Hour Arthritis Pain 650 MG 07/04/2019 12:00: 00 AM EDT active Tylenol 8 Hour Ar thritis Pain 650 MG eCW1 ([facility]) 8 HR Acetaminophen 650 MG Extended Relea se Oral Tablet [Tylenol] Tylenol 8 Hour Arthritis Pain 650 MG Tylenol 8 Hour Arthritis Pain 650 MG 07/04/2019 12:00: 00 AM EDT active Tylenol 8 Hour Ar thritis Pain 650 MG eCW1 ([facility]) 8 HR Acetaminophen 650 MG Extended Relea se Oral Tablet [Tylenol] Tylenol 8 Hour Arthritis Pain 650 MG Tylenol 8 Hour Arthritis Pain 650 MG 07/04/2019 12:00: 00 AM EDT active Tylenol 8 Hour Ar thritis Pain 650 MG eCW1 ([facility]) 8 HR Acetaminophen 650 MG Extended Relea se Oral Tablet [Tylenol] Tylenol 8 Hour Arthritis Pain 650 MG Tylenol 8 Hour Arthritis Pain 650 MG 07/04/2019 12:00: 00 AM EDT active Tylenol 8 Hour Ar thritis Pain 650 MG eCW1 ([facility]) 8 HR Acetaminophen 650 MG Extended Relea se Oral Tablet [Tylenol] Tylenol 8 Hour Arthritis Pain 650 MG Tylenol 8 Hour Arthritis Pain 650 MG 07/04/2019 12:00: 00 AM EDT active Tylenol 8 Hour Ar thritis Pain 650 MG eCW1 ([facility]) 8 HR Acetaminophen 650 MG Extended Relea se Oral Tablet [Tylenol] Tylenol 8 Hour Arthritis Pain 650 MG Tylenol 8 Hour Arthritis Pain 650 MG 07/04/2019 12:00: 00 AM EDT active Tylenol 8 Hour Ar thritis Pain 650 MG eCW1 ([facility]) 8 HR Acetaminophen 650 MG Extended Relea se Oral Tablet [Tylenol] Tylenol 8 Hour Arthritis Pain 650 MG Tylenol 8 Hour Arthritis Pain 650 MG 07/04/2019 12:00: 00 AM EDT active Tylenol 8 Hour Ar thritis Pain 650 MG eCW1 ([facility]) 8 HR Acetaminophen 650 MG Extended Relea se Oral Tablet [Tylenol] Tylenol 8 Hour Arthritis Pain 650 MG Tylenol 8 Hour Arthritis Pain 650 MG 07/04/2019 12:00: 00 AM EDT active Tylenol 8 Hour Ar thritis Pain 650 MG eCW1 ([facility]) 8 HR Acetaminophen 650 MG Extended Relea se Oral Tablet [Tylenol] Tylenol 8 Hour Arthritis Pain 650 MG Tylenol 8 Hour Arthritis Pain 650 MG 07/04/2019 12:00: 00 AM EDT active Tylenol 8 Hour Ar thritis Pain 650 MG eCW1 ([facility]) 8 HR Acetaminophen 650 MG Extended Relea se Oral Tablet [Tylenol] Tylenol 8 Hour Arthritis Pain 650 MG Tylenol 8 Hour Arthritis Pain 650 MG 07/04/2019 12:00: 00 AM EDT active 180 eCW1 [facility] 8 HR Acetaminophen 650 MG Extended Relea se Oral Tablet [Tylenol] Tylenol 8 Hour Arthritis Pain 650 MG Tylenol 8 Hour Arthritis Pain 650 MG 07/04/2019 12:00: 00 AM EDT active Tylenol 8 Hour Ar thritis Pain 650 MG eCW1 ([facility]) 8 HR Acetaminophen 650 MG Extended Relea se Oral Tablet [Tylenol] Tylenol 8 Hour Arthritis Pain 650 MG Tylenol 8 Hour Arthritis Pain 650 MG 07/04/2019 12:00: 00 AM EDT active Tylenol 8 Hour Ar thritis Pain 650 MG eCW1 ([facility]) 8 HR Acetaminophen 650 MG Extended Relea se Oral Tablet [Tylenol] Tylenol 8 Hour Arthritis Pain 650 MG Tylenol 8 Hour Arthritis Pain 650 MG 07/04/2019 12:00: 00 AM EDT active Tylenol 8 Hour Ar thritis Pain 650 MG eCW1 ([facility]) 8 HR Acetaminophen 650 MG Extended Relea se Oral Tablet [Tylenol] Tylenol 8 Hour Arthritis Pain 650 MG Tylenol 8 Hour Arthritis Pain 650 MG 07/04/2019 12:00: 00 AM EDT active Tylenol 8 Hour Ar thritis Pain 650 MG eCW1 ([facility]) 8 HR Acetaminophen 650 MG Extended Relea se Oral Tablet [Tylenol] Tylenol 8 Hour Arthritis Pain 650 MG Tylenol 8 Hour Arthritis Pain 650 MG 07/04/2019 12:00: 00 AM EDT active Tylenol 8 Hour Ar thritis Pain 650 MG eCW1 ([facility]) 8 HR Acetaminophen 650 MG Extended Relea se Oral Tablet [Tylenol] Tylenol 8 Hour Arthritis Pain 650 MG Tylenol 8 Hour Arthritis Pain 650 MG 07/04/2019 12:00: 00 AM EDT active 1 tab eCW1 ([facility] 8 HR Acetaminophen 650 MG Extended Relea se Oral Tablet [Tylenol] Tylenol 8 Hour Arthritis Pain 650 MG Tylenol 8 Hour Arthritis Pain 650 MG 07/04/2019 12:00: 00 AM EDT active Tylenol 8 Hour Ar thritis Pain 650 MG eCW1 ([facility]) 8 HR Acetaminophen 650 MG Extended Relea se Oral Tablet [Tylenol] Tylenol 8 Hour Arthritis Pain 650 MG Tylenol 8 Hour Arthritis Pain 650 MG 07/04/2019 12:00: 00 AM EDT active Tylenol 8 Hour Ar thritis Pain 650 MG eCW1 ([facility]) 8 HR Acetaminophen 650 MG Extended Relea se Oral Tablet [Tylenol] Tylenol 8 Hour Arthritis Pain 650 MG Tylenol 8 Hour Arthritis Pain 650 MG 07/04/2019 12:00: 00 AM EDT active Tylenol 8 Hour Ar thritis Pain 650 MG eCW1 [facility] 8 HR Acetaminophen 650 MG Extended Relea se Oral Tablet [Tylenol] Tylenol 8 Hour Arthritis Pain 650 MG Tylenol 8 Hour Arthritis Pain 650 MG 07/04/2019 12:00: 00 AM EDT active Tylenol 8 Hour Ar thritis Pain 650 MG [facility]CW1 [facility] 8 HR Acetaminophen 650 MG Extended Relea se Oral Tablet [Tylenol] Tylenol 8 Hour Arthritis Pain 650 MG Tylenol 8 Hour Arthritis Pain 650 MG 07/04/2019 12:00: 00 AM EDT active Tylenol 8 Hour Ar thritis Pain 650 MG eCW1 [facility]) May Have - UNK 06/11/2019 12:00:00 AM EDT active rolator eCW1 ([facility]) Acetaminophen 325 MG / Hydrocodone Bitartrate 5 MG Ora l Tablet Hydrocodone Bitartrate/Acetaminophen 04/23/2019 12:00:00 AM EST ORAL active [facility] ([facility] ) Magnesium Hydroxide 80 MG/ML Oral Suspension Milk Of Magnesi a 03/22/2019 12:00:00 AM EST ORAL completed [facility] ([facility], ) POLYETHYLENE GLYCOL 3350 105 MG/ML / Pot assium Chloride 0.00936 MEQ/ML / Sodium Bicarbonate 0.017 MEQ/ML / Sodium Chloride 0.0479 MEQ/ML Oral Solution [TriLyte] Trilyte 03/22/2019 12:00:00 AM EST completed [facility] ([facility], ) pregabalin 75 MG Oral Capsule Pregabalin 02/13/2019 12:00:00 AM EST ORAL completed [facility] ([facility], ) Metoprolol Tartrate 50 MG Oral Tablet me toprolol tartrate (LOPRESSOR) 50 MG tablet metoprolol tartrate (LOPRESSOR) 50 MG tablet 08/22/2016 12:0 0:00 AM EDT aborted HTN (hypertension), benign take 1 tablet by mouth once daily [facility] HTN (hypertension), benign Simvastatin 40 MG Oral Tablet simvastatin (ZOCOR) 40 M G tablet simvastatin (ZOCOR) 40 MG tablet 08/22/2016 12:00:00 AM EDT aborted Hyperlipidemia, unspecified hyperlipidemia type take 1 tablet by mouth at bedtime [facility] Hyperlipidemia, unspecified hyperlipidem ia type 60 ACTUAT Fluticasone propionate 0.5 MG/ ACTUAT / salmeterol 0.05 MG/ACTUAT Dry Powder Inhaler [Advair] ADVAIR DISKUS 500-50 MCG/DOSE DISKUS ADVAIR DISKUS 500- 50 MCG/DOSE DISKUS 08/22/2016 12:00:00 AM EDT aborted Uncomplicated asthma, unspecified asthma severity inhale 1 puff by mouth t wice a day [facility] Uncomplicated asthma, unspecified asthma severity insulin human, isophane 70 UNT/ML / Regu lar Insulin, Human 30 UNT/ML Injectable Suspension insulin NPH-insulin regular (HUMULIN) (70-30) 100 UNIT/ML injection insulin NPH-insulin regular (HUMULIN) (70-30) 100 UNIT/ML injection 06/14/2016 12:00:00 AM EDT 38 U Subcutaneous aborted T ype 2 diabetes mellitus without complication, unspecified alf insulin use status Inject 38 Units under the skin 2 (two) times a day before meals [facility] Type 2 diabetes mellitus without complic ation, unspecified director long term care insulin use status Lidocaine 0.05 MG/MG Topical Ointment lidocaine (XYLOC HERB) 5 % ointment lidocaine (XYLOCAINE) 5 % ointment 05/27/2016 12:00:00 AM EDT aborted APPLY SMALL AMOUNT OF OINTME NT TO GAUZE PAD AND APPLY PAD TO AFFECTED AREA (12 HRS ON 12 HRS OFF) [facility] terbinafine 250 MG Oral Tablet terbinafine (LAMISIL) 2 50 MG tablet terbinafine (LAMISIL) 250 MG tablet 05/26/2016 12:00:00 AM EDT aborted take 1 tablet by mouth once daily [facility] Trazodone Hydrochloride 50 MG Oral Tablet traZODone (D ESYREL) 50 MG tablet traZODone (DESYREL) 50 MG tablet 03/21/2016 12:00:00 AM EST aborted take 1 and 1/2 tablets by mouth at bedtime [facility] Lisinopril 40 MG Oral Tablet lisinopril (PRINIVIL,ZEST RIL) 40 MG tablet lisinopril (PRINIVIL,ZESTRIL) 40 MG tablet 02/12/2016 12:00:00 AM EST 40 mg Oral aborted HTN (hypertension), benign Take 1 tablet (40 mg total) by mouth daily [facility] HTN (hypertension), benign Metformin hydrochloride 1000 MG Oral Tab let metFORMIN (GLUCOPHAGE) 1000 MG tablet metFORMIN (GLUCOPHAGE) 1000 MG tablet 02/12/2016 12:00:00 AM EST 1000 mg Oral aborted Type II or unsp ecified type diabetes mellitus without mention of complication, not stated as uncontrolled Ta ke 1 tablet (1,000 mg total) by mouth 2 (two) times a day with meals [facility] Type II or unspecified type diabetes bill litus without mention of complication, not stated as uncontrolled INSULIN SYRINGE .5CC/28G 28G X 1/2" 0.5 ML [facility] [id number] 12/17/2015 12:00:00 AM EDT 18 U Does not apply aborted Type 2 diabetes mellitus without complication 18 Units by Does not apply route 2 (two) times a day [facility] Type 2 diabetes mellitus without complic ation Ergocalciferol 54403 UNT Oral Capsule vi tamin D, Ergocalciferol, 44190 UNITS CAPS vitamin D, Ergocalciferol, 41244 UNITS CAPS 11/18/2015 12:00:00 AM EDT 1 {capsule} Oral aborted Vitamin D deficiency Take 1 capsule by mouth every 30 (thirty) days [facility] Vitamin D deficiency clopidogrel 75 MG Oral Tablet clopidogrel (PLAVIX) 75 MG tablet clopidogrel (PLAVIX) 75 MG tablet 75 mg Oral aborted Take 75 mg by mouth daily Prior to procedure [facility] 24 HR Isosorbide Mononitrate 30 MG Exten ded Release Oral Tablet isosorbide mononitrate (IMDUR) 30 MG 24 hr tablet isosorbide mononitrate (IMDUR) 30 MG 24 hr tablet 30 mg Oral aborted Take 30 mg by mouth daily [facility] Insurance Providers Payer name Policy type / Coverage type Policy ID Covered democrat ID Covered democrat's relationship to maxwell Policy Maxwell Plan Information [facility] [id number] [place]ED[place] [id number] SP [id number] [facility] [id number] SP [id number] MEDICARE [id number] SP [id number] [facility] [id number] SP [id number] HUMANA GOLD [id number] SP [id number] [facility]) O [id number] S [id number] MEDICAID [id number] HUMANA GOLD [id number] SP [id number] SP [id number] MEDICARE COMPLETE [id number] SP [id number] MEDICARE COMPLETE [id number] SP [id number] MEDICARE [id number] SP [id number] MEDICARE COMPLETE [id number] SP [id number] MEDICARE COMPLETE [id number] SP [id number] MEDICARE COMPLETE [id number] SP [id number] MEDICARE COMPLETE-[facility] O [id number] S [id number] INSURANCE COVID-19 [id number] MEDICAID [id number] MEDICARE [id number] MEDICARE [id number] [place] [id number] MEDICAID [id number] [place] [id number] INSURANCE COVID-19 COVID [place] C OVID MEDICAID [id number] SP [id number] [employer] [id number] SP [id number] MEDICARE [id number] SP [id number] MEDICARE COMPLETE [id number] SP [id number] MEDICARE C [id number] S [id number] MEDICARE [id number] SP [id number] A [employer] P [id number] S [id number] Medicaid S [id number] S [id number] MEDICARE COMPLETE [id number] SP [id number] Unitedhealthcare [employer] P [id number] S [id number] MEDICARE [id number] SP [id number] A [facility] Medicare Solutions F [id number] SELF [id number] Medicaid [facility] Healthcare S D [id number] SELF [id number] MEDICAID [id number] SP [id number] MEDICARE COMPLETE [id number] SP [id number] Unitedhealthcare [employer] P [id number] S [id number] Medicare Wrap S [id number] S [id number] Medicare Wrap S [id number] S [id number] Medicaid Medigap Part B [id number] Self [id number] [facility] Commercial [id number] Self [id number] Medicaid Medigap Part B [id number] Self [id number] [facility]icare [facility] Commercial [id number] Self [id number] Medicare C [id number] SELF [id number] Medicaid [facility] S D [id number] SELF [id number] DME Jurisdiction A NHIC C [id number] SELF [id number] [facility] Medicare F [id number] SELF [id number] [facility] Medicare Solutions F [id number] SELF [id number] [facility] Medicare Solutions F [id number] SELF [id number] Medicaid [facility] S D [id number] SELF [id number] [facility] Medicare [place] F [id number] SELF [id number] Medicaid Medicaid [id number] Self [id number] [employer] Commercial [id number] Self [id number] [facility] Secure Horizons P [id number] S [id number] Medicare Wrap O [id number] S [id number] Medicaid Medicaid [id number] Self [id number] [employer] Commercial [id number] Self [id number] ANSI-Medicare Part B [id number] ANSI-Medicaid [id number] Medicaid Medicaid [id number] Self [id number] [employer] Commercial [id number] Self [id number] ANSI-Medicare Part B [id number] ANSI-Medicaid [id number] [employer] [facility] MEDICARE O/P [id number] 18 [id number] MEDICARE PART B-O/P [id number] 18 [id number] Medicare [facility] Medicare Primary [id number] Self [id number] [place] Medigap Part B [id number] Self [id number] United [employer] Medigap Part B [id number] Self [id number] [employer] Medicare Commercial [id number] Self [id number] Medicare [facility] Medicare Primary [id number] Self [id number] Medicaid Medicaid [id number] Self [id number] [employer] Commercial [id number] Self [id number] Medicare [facility] Medicare Primary [id number] Self [id number] [place] Medigap Part B [id number] Self [id number] Medicaid Medicaid [id number] Self [id number] [employer] Commercial [id number] Self [id number] Medicare [facility] Medicare Primary [id number] Self [id number] [place] Medigap Part B [id number] Self [id number] MEDICARE COMPLETE [id number] SP [id number] MEDICAID [id number] SP [id number] [place] Medigap Part B [id number] Self [id number] [employer] Health Maintenance [facility] (HMO) [id number] Self [id number] [facility] MEDICARE [id number] [place] [id number] MEDICAID [id number] [place] [id number] [facility] MEDICARE [id number] [place] [id number] MEDICARE [id number] [place] [id number] MEDICAID [id number] [place] [id number] MEDICARE [id number] [place] [id number] [place] Medigap Part B Self [facility] (MCR) Commercial Self MEDICARE COMPLETE [id number] SP [id number] MEDICARE UNITED HEALTHCARE [id number] SELF [id number] MEDICAID [id number] SELF [id number] MEDICARE [id number] SELF [id number] A SELF PAY UNAVAILABLE SELF UNAVAILA BLE [employer] [id number] SP [id number] Problems, Conditions, and Diagnoses Code Display Name Description Problem Type Effective Dates Data Source(s) K44.9 [id number] Hiatal hernia Problem 02/21/2020 12:00:00 AM EST [facility]CW[facility]) J44.9 17371765 Chronic obstructive pulmonary di sease, unspecified COPD type Problem 02/21/2020 12:00:00 AM EST eCW1 ([facility]) R94.39 Abnormal stress test Abnormal stress test [id number] 08/27/2019 12:00:00 AM EDT [facility] I10 Essential hypertension, benign Essential hypertension, benign [id number] 08/15/2019 12:00:00 AM EDT [facility] E11.69 Type 2 diabetes mellitus with other spec ified complication Type 2 diabetes mellitus with other specified complication [id number] 12:00:00 AM EDT [facility] N18.3 Chronic kidney disease, stage III (moder ate) Chronic kidney disease, stage III (moderate) [id number] 08/15/2019 12:00:00 AM EDT [facility] R07.9 Chest pain Chest pain [id number] 08/15/2019 12:00:00 AM ED T [facility] R94.31 Nonspecific abnormal electrocardiogram ( ECG) (EKG) Nonspecific abnormal electrocardiogram (ECG) (EKG) [id number] 08/15/2019 12:00:00 AM EDT [facility] Z01.810 Pre-operative cardiovascular examination Pre-operative cardiovascular examination [id number] 08/15/2019 12:00:00 AM EDT [facility] K76.0 185358541 Fatty liver Problem 06/13/2019 12:00:00 AM E DT eCW1 [facility]) D12.2 239833049 Adenomatous polyp of ascending colon Prob anabel 06/13/2019 12:00:00 AM EDT eCW1 ([facility]) Z12.39 798509986 Breast cancer screening Problem 06/13/2019 1 2:00:00 AM EDT eCW1 ([facility]) M51.36 00487568 DDD (degenerative disc disease), lumbar P roblem 06/13/2019 12:00:00 AM EDT eCW1 ([facility]) R55 997051985 Pre-syncope Problem 06/13/2019 12:00:00 AM E DT eCW1 ([facility]) Z12.4 853500111 Cervical cancer screening Problem 06/13/2019 12:00:00 AM EDT eCW1 ([facility]) K63.5 529838898 Hyperplastic colonic polyp, unspecified p art of colon Problem 06/13/2019 12:00:00 AM EDT eCW1 ([facility]) D12.2 898399968 Adenomatous polyp of ascending colon Prob anabel 06/13/2019 12:00:00 AM EDT eCW1 ([facility]) K63.5 950958000 Hyperplastic colonic polyp, unspecified p art of colon Problem 06/13/2019 12:00:00 AM EDT eCW1 ([facility]) Z12.4 768364043 Cervical cancer screening Problem 06/13/2019 12:00:00 AM EDT eCW1 ([facility]) Z12.39 627298894 Breast cancer screening Problem 06/13/2019 1 2:00:00 AM EDT eCW1 ([facility]) R55 994959945 Pre-syncope Problem 06/13/2019 12:00:00 AM E DT eCW1 ([facility]) K76.0 015968488 Fatty liver Problem 06/13/2019 12:00:00 AM E DT eCW1 [facility]) M51.36 88451867 DDD (degenerative disc disease), lumbar P roblem 06/13/2019 12:00:00 AM EDT eCW1 ([facility]) F32.0 Mild major depression, single episode Cu rrent mild episode of major depressive disorder, unspecified whether recurrent Problem 03/2019 12:00:00 AM EDT eCW1 ([facility]) F32.0 Mild major depression, single episode Cu rrent mild episode of major depressive disorder, unspecified whether recurrent Problem 03/2019 12:00:00 AM EDT eCW1 ([facility]) Z76.89 Persons encountering health services in other specified circumstances Assisted living facility patient 06/11/2019 07:54:49 AM EDT [facility] Z86.711 463494977 History of pulmonary embolus (PE) Problem 06/11/2019 12:00:00 AM EDT eCW1 [facility] E11.22 58463936 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 Problem 06/11/2019 12:00:00 AM EDT eCW1 ([facility]) E78.2 925831557 Mixed hyperlipidemia Problem 06/11/2019 12:0 0:00 AM EDT eCW1 [facility] Z86.718 042323525 H/O deep venous thrombosis Problem 0 12:00:00 AM EDT eCW1 [facility]) J30.1 14989477 Seasonal allergic rhinitis due to pollen Problem 06/11/2019 12:00:00 AM EDT eCW1 [facility]) N18.3 897183479 Chronic kidney disease, stage 3 (moderate ) Problem 06/11/2019 12:00:00 AM EDT eCW1 [facility]) Z79.4 213663112 alf (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 Proble m 06/11/2019 12:00:00 AM EDT eCW1 [facility]) Z86.711 955936084 Personal history of pulmonary embolism Pr oblem 06/11/2019 12:00:00 AM EDT eCW1 ([facility]) I10 06826686 Essential hypertension Problem 06/11/2019 12 :00:00 AM EDT eCW1 ([facility]) K21.9 307604448 Gastroesophageal ref lux disease, esophagitis presence not specified Problem 06/11/2019 12:00:00 AM EDT eCW1 ([facility]) K59.00 34002940 Constipation, unspecified constipation ty pe Problem 06/11/2019 12:00:00 AM EDT eCW1 [facility]) E11.42 205832487 Diabetic polyneuropa thy associated with type 2 diabetes mellitus Problem 06/11/2019 12:00:00 AM EDT eCW1 ([facility]) M17.0 669387688 Primary osteoarthritis of both knees Prob anabel 06/11/2019 12:00:00 AM EDT eCW1 [facility] E55.9 18184651 Vitamin D deficiency Problem 06/11/2019 12:0 0:00 AM EDT eCW1 ([facility]) N18.3 796217862 Chronic kidney disease, stage 3 (moderate ) Problem 06/11/2019 12:00:00 AM EDT eCW1 [facility]) Z79.4 724531846 director long term care (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 Proble m 06/11/2019 12:00:00 AM EDT eCW1 ([facility]) E55.9 27798233 Vitamin D deficiency Problem 06/11/2019 12:0 0:00 AM EDT eCW1 [facility]) E11.22 87819586 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 Problem 06/11/2019 12:00:00 AM EDT eCW1 ([facility]) E78.2 011252474 Mixed hyperlipidemia Problem 06/11/2019 12:0 0:00 AM EDT eCW1 [facility] I10 68732721 Essential hypertension Problem 06/11/2019 12 :00:00 AM EDT eCW1 [facility]) K59.00 38838842 Constipation, unspecified constipation ty pe Problem 06/11/2019 12:00:00 AM EDT eCW1 ([facility]) Z86.711 772453563 History of pulmonary embolus (PE) Problem 06/11/2019 12:00:00 AM EDT eCW1 [facility]) E11.42 742721604 Diabetic polyneuropa thy associated with type 2 diabetes mellitus Problem 06/11/2019 12:00:00 AM EDT eCW1 ([facility]) M17.0 407058565 Primary osteoarthritis of both knees Prob anabel 06/11/2019 12:00:00 AM EDT eCW1 [facility]) J30.1 86007337 Seasonal allergic rhinitis due to pollen Problem 06/11/2019 12:00:00 AM EDT eCW1 [facility]) Z86.718 758016235 H/O deep venous thrombosis Problem 0 12:00:00 AM EDT eCW1 [facility]) K21.9 414344186 Gastroesophageal ref lux disease, esophagitis presence not specified Problem 06/11/2019 12:00:00 AM EDT eCW1 ([facility]) 719.45 Pain in right hip Pain in right hip 06/05/2019 02:22:29 PM EDT [facility] 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 06/05/2019 02:22:29 PM EDT [facility] V58.67 alf (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 director long term care (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 05/31/2019 04:13:53 PM EDT [facility] R04.0 Epistaxis Bleeding from nose 05/27/2019 03:07: 12 PM EDT [facility] 338.29 Chronic pain Chronic pain 05/24/2019 02:56:10 P M EDT [facility] 789.09 Suprapubic pain Suprapubic pain 04/18/2019 02:2 5:57 PM [facility] [id number] Carpal tunnel syndrome of right wrist Ca rpal tunnel syndrome of right wrist 04/10/2019 08:19:36 AM [facility] 787.91 Acute diarrhea Acute diarrhea 04/10/2019 08:19: 36 AM [facility] [id number] Pure hypercholesterolemia Pure hypercholesterolemia Pr oblem 03/19/2019 12:00:00 AM EST [facility]ENT ([facility]) I10 Essential (primary) hypertension Essential (primary) h ypertension Diagnosis 08/27/2019 06:06:00 AM EDT [facility] E11.69 Type 2 diabetes mellitus with other spec ified complication Type 2 diabetes mellitus with other spec Diagnosis 08/27/2019 06:06:00 AM EDT [facility] N18.3 Chronic kidney disease, stage 3 (moderat e) Chronic kidney disease, stage 3 (moderat Diagnosis 08/27/2019 06:06:00 AM EDT [facility] R07.9 Chest pain, unspecified Chest pain, unspecified Diagno sis 08/27/2019 06:06:00 AM EDT [facility] R94.31 Abnormal electrocardiogram [ECG] [EKG] A bnormal electrocardiogram (ECG) (EKG) Diagnosis 08/27/2019 06:06:00 AM EDT [facility] Z01.810 Encounter for preprocedural cardiovascul ar examination Encounter for preprocedural cardiovascul Diagnosis 08/27/2019 06:06:00 AM EDT [facility] Surgeries/Procedures Procedure Description Date Indications Data Source(s) RADEX HAND MINIMUM 3 VIEWS 04/08/2020 12:00:00 AM EST MEDENT ([facility]) DEBRIDEMENT NAIL ANY METHOD 02/13/2020 12:00:00 AM EST [facility] ([facility] Endoscopy Upper GI Complex Diagnostic 01/21/2020 12:00 :00 AM EST MEDENT ([facility], ) Colonoscopy,W/Directed Submucosal Injections, Any Substance 01/21/2020 12:00:00 AM EST [facility] ([facility] Colonoscopy W/ Poly 01/21/2020 12:00:00 AM EST MED[facility] ([facility], ) DEBRIDEMENT NAIL ANY METHOD 12/05/2019 12:00:00 AM EDT [facility] ([facility] RADIOLOGIC EXAM KNEE COMPLETE 4/MORE VIEWS 10/16/2019 12:00:00 AM EDT [facility] ([facility]) ARTHROCENTESIS ASPIR&/INJECTION MAJOR JT/BURSA 020 12:00:00 AM EDT [facility] ([facility]) DEBRIDEMENT NAIL ANY METHOD 09/26/2019 12:00:00 AM EDT [facility] ([facility] CARDIAC CATHETERIZATION CARDIAC CATHETERIZATION Routine 08/27/2019 8:24 AM EDT Pre-operative cardiovascular examination Nonspecific abnormal electrocardiogram (ECG) (EKG) Chest pain, unspecified type Chronic kidney disease, stage III (moderate) Type 2 diabetes mellitus with other specified complication, unspecified whether alf insulin use Essential hypertension, benign 08/27/2019 12:24:14 PM EDT Es sential hypertension, benignType 2 diabetes mellitus with other specified complication, unspecified whether director long term care insulin useChronic kidney disease, stage III (moderate)Chest pain, unspecified typeNonspecific abnormal electrocardiogram (ECG) (EKG)Pre-operative cardiovascular examination [facility] Essential hypertension, benign Type 2 diabetes mellitus with other spec ified complication, unspecified whether director long term care insulin use Chronic kidney disease, stage III (moder ate) Chest pain, unspecified type Nonspecific abnormal electrocardiogram ( ECG) (EKG) Pre-operative cardiovascular examination GLUC BLD GLUC MNTR DEV CLEARED FDA SPEC HOME USE POCT GLUCOSE Routine 08/27/2019 7:25 AM EDT 08/27/2019 11:25:00 AM EDT [facility] ECG ROUTINE ECG W/LEAST 12 LDS TRCG ONLY W/O I&R ECG 12-LEAD Routine 08/27/2019 6:31 AM EDT 08/27/2019 10:31:44 AM EDT [facility] ECG ROUTINE ECG W/LEAST 12 LDS W/I&R 08/13/2019 12:00: 00 AM EDT [facility] ([facility]) Arterial Pressure Waveform Analysis For Assessment Of Centra l Art 08/13/2019 12:00:00 AM EDT [facility] ([facility]) Bronchospasm Evaluation 07/25/2019 12:00:00 AM EDT MEDENT ([facility], ) Maximum Breathing Capacity, Maximal Voluntary Ventilation 07/25/2019 12:00:00 AM EDT [facility] ([facility] ) Plethysmography Determination Lung Volumes & Per Airway Resi st 07/25/2019 12:00:00 AM EDT [facility] ([facility] ) DIFFUSING CAPACITY 07/25/2019 12:00:00 AM EDT MED[facility] ([facility], ) Office Visit, Est Pt., Level 2 FC 07/16/2019 12:00:00 AM EDT [facility]CW[facility] Office Visit, Est Pt., Level 4 PC 07/16/2019 12:00:00 AM EDT eCW1 ([facility]) Office Visit, New Pt., Level 4 PC 06/11/2019 12:00:00 AM EDT eCW1 ([facility]) Office Visit, New Pt., Level 2 FC 06/11/2019 12:00:00 AM EDT eCW1 ([facility]) DEBRIDEMENT NAIL ANY METHOD 6/> 05/02/2019 12:00:00 AM EST [facility] ([facility] RADEX WRIST COMPLETE MINIMUM 3 VIEWS 03/19/2019 12:00: 00 AM EST [facility] ([facility]) Results ID Date Data Source [id number] 04/27/2020 09:00:00 AM EST [facility] Name Value Range Interpretation Code Description Data Adilene rce(s) Supporting Document(s) SARS coronavirus 2 RNA Not Detected [facility] [place] This lab was ordered by [facility] and reported by [facility]. ID Date Data Source [id number] 04/20/2020 06:33:00 AM EST [facility] Name Value Range Interpretation Code Description Data Adilene rce(s) Supporting Document(s) SARS coronavirus 2 RNA Not Detected [facility] [place] This lab was ordered by [facility] and reported by [facility]. ID Date Data Source [id number] 04/13/2020 08:00:00 AM EST [facility] Name Value Range Interpretation Code Description Data Adilene rce(s) Supporting Document(s) SARS coronavirus 2 RNA Not Detected [facility] [place] This lab was ordered by [facility] and reported by [facility]. ID Date Data Source [id number] 04/06/2020 08:00:00 AM EST [facility] Name Value Range Interpretation Code Description Data Adilene rce(s) Supporting Document(s) SARS coronavirus 2 RNA Not Detected [facility] [place] This lab was ordered by [facility] and reported by [facility]. ID Date Data Source [id number] 03/30/2020 11:00:00 AM EST [facility] Name Value Range Interpretation Code Description Data Adilene rce(s) Supporting Document(s) SARS coronavirus 2 RNA Not Detected [facility] This lab was ordered by [facility] and reported by [facility]. ID Date Data Source [id number] 03/23/2020 06:00:00 AM EST [facility] Name Value Range Interpretation Code Description Data Adilene rce(s) Supporting Document(s) SARS coronavirus 2 RNA Not Detected [facility] [place] This lab was ordered by [facility] and reported by [facility]. ID Date Data Source [id number] 03/16/2020 09:00:00 AM EST [facility] Name Value Range Interpretation Code Description Data Adilene rce(s) Supporting Document(s) SARS coronavirus 2 RNA Not Detected [facility] This lab was ordered by [facility] and reported by [facility]. ID Date Data Source [id number] 03/09/2020 07:35:00 AM EST [facility] Name Value Range Interpretation Code Description Data Adilene rce(s) Supporting Document(s) SARS coronavirus 2 RNA [facility] This lab was ordered by [facility] and reported by [facility]. ID Date Data Source [id number] 03/02/2020 09:00:00 AM EST [facility] Name Value Range Interpretation Code Description Data Adilene rce(s) Supporting Document(s) SARS coronavirus 2 RNA [facility] This lab was ordered by [facility] and reported by [facility]. ID Date Data Source [id number] 02/26/2020 11:55:00 AM EST [facility] Name Value Range Interpretation Code Description Data Adilene rce(s) Supporting Document(s) SARS coronavirus 2 RNA [facility] This lab was ordered by [facility] and reported by [facility]. ID Date Data Source [id number] 02/26/2020 12:00:00 AM EST [facility] Name Value Range Interpretation Code Description Data Adilene rce(s) Supporting Document(s) SARS-CoV2 Rapid Antigen [facility] This lab was ordered by [facility] and reported by [facility]. ID Date Data Source [id number] 02/23/2020 08:55:00 AM EST [facility] ([facility]) Name Value Range Interpretation Code Description Data Adilene rce(s) Supporting Document(s) White Blood Count 6.9 4.0-10.0 [facility] ([facility]) Red Blood Count 4.12 4.00-5.40 [facility] ([facility]) Platelets 245 150-450 [facility] ([facility]) Hemoglobin 11.3 [facility] ([facility]) Hematocrit 35.1 [facility] ([facility]) ID Date Data Source [id number] 02/23/2020 05:12:00 AM EST [facility] Name Value Range Interpretation Code Description Data Adilene rce(s) Supporting Document(s) SARS coronavirus 2 RNA [Presence] in Res piratory specimen by SUZANNA with probe detection [facility] This lab was ordered by [facility] a nd reported by [facility]. ID Date Data Source [id number] 02/21/2020 02:48:00 PM EST [facility] Name Value Range Interpretation Code Description Data Adilene rce(s) Supporting Document(s) SARS coronavirus 2 RNA [facility] This lab was ordered by [facility] and reported by [facility]. ID Date Data Source [id number] 02/11/2020 09:10:00 AM EST [facility] Name Value Range Interpretation Code Description Data Adilene rce(s) Supporting Document(s) SARS coronavirus 2 RNA [facility] This lab was ordered by [facility] and reported by [facility]. ID Date Data Source [id number] 02/11/2020 12:00:00 AM EST [facility] Name Value Range Interpretation Code Description Data Adilene rce(s) Supporting Document(s) SARS-CoV2 Rapid PCR [facility] This lab was ordered by [facility] and reported by [facility]. ID Date Data Source [id number] 02/07/2020 12:00:00 AM EST [facility] Name Value Range Interpretation Code Description Data Adilene rce(s) Supporting Document(s) SARS-CoV2 Rapid Antigen [facility] This lab was ordered by [facility] and reported by [facility]. ID Date Data Source [id number] 01/21/2020 02:05:00 PM EST [facility] ([facility], ) Name Value Range Interpretation Code Description Data Adilene rce(s) Supporting Document(s) Surgical pathology study Laboratory test result [facility] ([facility], ) FINAL DIAGNOSIS Colon, hepatic flexure [...] MD 01/23/2020 1536 ID Date Data Source [id number] 01/21/2020 12:55:00 PM EST [facility] ([facility], ) Name Value Range Interpretation Code Description Data Adilene rce(s) Supporting Document(s) Glucose [Mass/volume] in Capillary blood by Glucometer 182 mg/dL 80-115 Above high normal [facility] not to draw ID Date Data Source [id number] 01/17/2020 02:38:11 AM EST eCW1 ([facility]) Name Value Range Interpretation Code Description Data Adilene rce(s) Supporting Document(s) Hemoglobin A1c/Hemoglobin.total in Blood 8.8 HEMOGLOBIN A1c [facility]) ID Date Data Source NT-PRO [id number] 01/17/2020 02:38:09 AM EST eCW1 ([facility]) Name Value Range Interpretation Code Description Data Adilene rce(s) Supporting Document(s) 23 NT-PRO BNP eCW1 ([facility]) ID Date Data Source CBC with Differential 01/17/2020 02:38:03 AM EST eCW1 ([facility]) Name Value Range Interpretation Code Description Data Adilene rce(s) Supporting Document(s) 5.6 WHITE BLOOD COUNT eCW1 ([facility]) 36.0 HEMATOCRIT eCW1 ([facility]) 4.23 RED BLOOD COUNT eCW1 ([facility]) 11.9 HEMOGLOBIN eCW1 ([facility]) 28.1 MEAN CORPUSCULAR HEMOGLOBIN eC W1 ([facility]) 12.8 RED CELL DISTRIBUTION WIDTH eC W1 ([facility]) 33.1 MEAN CORPUSCULAR HGB CONC eCW1 ([facility]) 85.1 MEAN CORPUSCULAR VOLUME eCW1 ( [facility]) 10.5 MONO % eCW1 ([facility]) 38.9 LYMPH % eCW1 ([facility]) 46.8 NEUTROPHILS % eCW1 [facility]) 241 PLATELET COUNT, AUTOMATED eCW1 ([facility]) 2.6 NEUTROPHILS # eCW1 [facility]) 0.9 BASO % eCW1 ([facility]) 2.5 EOS % eCW1 ([facility]) 0.1 BASO # eCW1 ([facility]) 0.1 EOS # eCW1 ([facility]) 0.6 MONO # eCW1 ([facility]) 2.2 LYMPH # eCW1 ([facility]) ID Date Data Source PTH INTACT 01/17/2020 02:38:00 AM EST eCW1 ([facility]) Name Value Range Interpretation Code Description Data Adilene rce(s) Supporting Document(s) 60.5 PTH INTACT eCW1 ([facility]) ID Date Data Source Comprehensive Metabolic Profile (CMP) 01/17/2020 02:37:42 AM EST eCW1 [facility]) Name Value Range Interpretation Code Description Data Adilene rce(s) Supporting Document(s) 227 GLUCOSE, FASTING eCW1 ([facility]) 48.5 GLOMERULAR FILTRATION RATE eCW 1 ([facility]) 19 BLOOD UREA NITROGEN eCW1 [facility]) 1.18 CREATININE FOR GFR eCW1 ([facility]) 103 CHLORIDE LEVEL eCW1 ([facility]) 27 CARBON DIOXIDE LEVEL eCW1 ([facility]) 138 SODIUM LEVEL eCW1 ([facility]) 3.9 POTASSIUM SERUM eCW1 ([facility]) 9.0 CALCIUM LEVEL eCW1 ([facility]) 27 AST/SGOT eCW1 ([facility]) 51 ALT/SGPT eCW1 ([facility]) 116 ALKALINE PHOSPHATASE eCW1 ([facility]) 6.8 TOTAL PROTEIN eCW1 ([facility]) 3.6 ALBUMIN eCW1 ([facility]) 1.1 ALBUMIN/GLOBULIN RATIO eCW1 ([facility]) 0.3 BILIRUBIN,TOTAL eCW1 ([facility]) ID Date Data Source [id number] 01/16/2020 12:00:00 PM EST [facility] Name Value Range Interpretation Code Description Data Adilene rce(s) Supporting Document(s) SARS coronavirus 2 RNA [facility] This lab was ordered by [facility] and reported by [facility]. ID Date Data Source [id number] 08/29/2019 12:00:00 AM EDT [facility] Name Value Range Interpretation Code Description Data Adilene rce(s) Supporting Document(s) 2019-nCoV N XXX Ql SUZANNA N2 [facility] This lab was [facility] and reported by [facility]. ID Date Data Source [id number] 08/27/2019 08:50:27 AM EDT [facility] Name Value Range Interpretation Code Description Data Adilene rce(s) Supporting Document(s) EKG [facility] MLKEWn9mGoPSZuQnt8DyYrHeAMTlQZ8izaz3B8C0mHFmJ1WzzIFlf9ghO2BhP1SiJKZbCRCBGK1NxCCp jb2 [file] BSCgo+IygklVIgbQdfVYYZWJUrOKCPCEEOM3J= ID Date Data Source [id number] 08/27/2019 08:36:16 AM EDT [facility] Name Value Range Interpretation Code Description Data Adilene rce(s) Supporting Document(s) &PDF [facility] BIZZWd6vEdNELeFz46/URXhpPXBsg2DsIRcjHYs6FRfyNKVgV4ZhfKylDRYAP0VAJdqLPIKGJaVvUJL1 FcG [file] 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 [file] AgICAgICAgICAgICAgICAgICAgICAgICAgICAgICAgICAgICAgICAgICAgICAgICAgICANCiAgICAgIC AgICAgICAgICAgICAgICAgICAgICAgICAgICAgICAg ICAgICAgICAgICAgICAgICAgICAgICAgICAgICAgICAgICAgICAgICAgICAgICAgICAgICAgICAgICAg ICANCiAgICAgICAgICAgICAgICAgICAgICAgICAgICAgICAgICAgICAgICAgICAgICAgICAgICAgICAg ICAgICAgICAgICAgICAgICAgICAgICAgICAgICAgIC AgICAgICAgICAgICANCiAgICAgICAgICAgICAgICAgICAgICAgICAgICAgICAgICAgICAgICAgICAgIC AgICAgICAgICAgICAgICAgICAgICAgICAgICAgICAgICAgICAgICAgICAgICAgICAgICAgICANCiAgIC AgICAgICAgICAgICAgICAgICAgICAgICAgICAgICAg ICAgICAgICAgICAgICAgICAgICAgICAgICAgICAgICAgICAgICAgICAgICAgICAgICAgICAgICAgICAg ICAgICANCiAgICAgICAgICAgICAgICAgICAgICAgICAgICAgICAgICAgICAgICAgICAgICAgICAgICAg ICAgICAgICAgICAgICAgICAgICAgICAgICAgICAgIC AgICAgICAgICAgICAgICANCiAgICAgICAgICAgICAgICAgICAgICAgICAgICAgICAgICAgICAgICAgIC AgICAgICAgICAgICAgICAgICAgICAgICAgICAgICAgICAgICAgICAgICAgICAgICAgICAgICAgICANCi AgICAgICAgICAgICAgICAgICAgICAgICAgICAgICAg ICAgICAgICAgICAgICAgICAgICAgICAgICAgICAgICAgICAgICAgICAgICAgICAgICAgICAgICAgICAg ICAgICAgICANCiAgICAgICAgICAgICAgICAgICAgICAgICAgICAgICAgICAgICAgICAgICAgICAgICAg ICAgICAgICAgICAgICAgICAgICAgICAgICAgICAgIC AgICAgICAgICAgICAgICAgICANCiAgICAgICAgICAgICAgICAgICAgICAgICAgICAgICAgICAgICAgIC AgICAgICAgICAgICAgICAgICAgICAgICAgICAgICAgICAgICAgICAgICAgICAgICAgICAgICAgICAgIC ANCjw/uZCyK4yctKKzkjJ7F5poNi1MFq9YJX3rs4Ge WGKdNJjqxnBjVmdRYiVbEXObZddWNpv8TSmjSK1AhYIeY0WcI2PkBBstPK6KEWGeFXKcoAFoSAJiDUAy XqN0EWTxVYwwXZ1YdRGaRIirQVIjOXLpTbDbOTAdYXQuAVBaIU8PQEPwJ640pmAuLw2CIq9AHtOeCF2i ug5XYyimIYEaAwyEVsw5COxwMP0RaAQmhDYeUZIrTT UWAxJmY9ypn3WqWguaOVNCZLjuNU0Vr2IyaIGzOOo+Go2QLW6ze1PtGOhlWHSdLT8tmi1MKIbPHbYlX3 CgbSulXFnjeJbhdwTlZF8SBBDeDRTtcLIpJYrfGGLAOH1NYDtmFXU3PYkbclFygPUfWTqvYS8WWOVwve QgMjcgMCBSDQo+Ay3XNI8wp8QpFVxbVZWgQE5ohs7D ZQtYXmEwQ1T6bDDlB7A9TMgoDz2RCTEkJQMcJqZxGUHSUOceTL5RZJ3wvmX6JA1XtNAeBRLuEJYqaIVq XZi5V89opGOfVMiwPX8MEKF+Kali+Uz3UGCDhNZOrOFKeLaOiFABBYcFeP2KxX6EBe8TrX8FnXT66vDgh loGdIAvvYJ6PBT2aWWOhOSWZYS1BaFFexI5cqbIrTi HgZVPNRnGmL35gqFOdGTXfYSM7QEHeQr2GTWWpF8CxmhLipWuwgxWhRQJgBIAFIJ9MXDreonZimMAkeY xoNW22gCzyYA8MOh5LAuAqJX1rlb0IsWLsDn3OOBKcTM0QWZOsCKIdYFGaWQF1SSJtDrZfWIxcIJHiKD OsWOY2VUOdPUNuSY3OWdIvAVStHJNhYrUnNSOoUALx ra9VZEFxHLQ0Vam9IVFgJHDzCZWoLHzwBYGtKEPjFIdwNIEwNYUsCY1TSfDrQNOvYME6VgJhMUVzDLYf lf9ZBOTmXCSxXgOqWoQbIEKtIQDcFJxcHKHeKRI1IsV3TFPyVZFxSW6WQdMhKKHxXPE2TLDlJYFnJHCn ao0LWVHfQJSdTeX6PDYiWOJjWXPpHDgqPQKdXKO9Kz Y4WFEsYDAqRC9OHqAkSISjTEmjORSqUAFuCZNfwr5EZUAjCCLpZYFoGzWcOKCqUDFwNHupMBUwJDB3UX h6UPXrDJTyKX7PFzGdSSSgWPr2CZKhZPVpIXLekn2LOOLvRMOiQIh6IfTpBESrNWUcKHghZDEaZRW0TB Q5FCAyNLJyHS1WKaVzVTQyRPI2IMOmKQMoFTSaeg1U VCEmWPDbRVFzHaBvECStOQNkUSojBMIdPHZ9HjA9OJXcOMOzPH5UGxReUBFlDUW3RDwiITTxVWWwef9D WXUwNHZyGXzdXuTgNLQlKXDhTKwxWVGhQUC9DDDbCRTuXKRpZJ7WBmRqAOOoWxRaGSDhIXCmTXKguw9F HXKgRAPoEhZ2NtBlCGHuDIHkQStgKLOtVZEbFXOuWN GdQPEwFD4GDcRcZOTcFQO7LLuaQDHeBGCzvo9ARVXpZIO1HVP7VVKqQLJtDAAvFBjhAPMcNMR4KOC9ZK PiWMBnOU6GZpQiJKNdALFdIvvnKQLvXWPhgh4TfOAenJoxye5DBAxYHf2MvOncJPYbRBsmIo1rdBUrFJ SeDFVDWv8UpoHsLFGxGFJQWJwqHHEsOVSuIHG3Iucf WWGaPHA6KpRxLrCiNmX0PWW8JIxkQAVtQbG2CqCpGGGtYDJzIcY2NZJbGUL8TWQmPFUfLOViWpCnZCX+ FH1pZEn+Cw7Gs5VkhaQ6puXdLVw5YQM0Ag0YXXPPR9PCKa== ID Date Data Source [id number] 08/27/2019 08:43:03 AM EDT [facility]FORMATION[facility] Name Date of Age Gend*PT [id number] Manju Paz 1950 69 years F HOPPT Location Admission Date/Time Visit ID Attending [id number] 08/27/19 0606 --- Sandra Oliva MD([id number]) EPI ID CSN Admitting Provider [id number] Sandra Oliva MD([id number])The patient is a 69-year-old woman with multiple [...] rce(s) Supporting Document(s) ID Date Data Source [id number] 08/27/2019 07:26:36 AM EDT [facility] Name Value Range Interpretation Code Description Data Adilene rce(s) Supporting Document(s) POC NOVA GLU 252 mg/dL (70-99) H Lab [facility] PERFORMED BY [facility] CLINICAL STAFF ID Date Data Source [id number] 08/24/2019 09:05:00 AM EDT [facility] Name Value Range Interpretation Code Description Data Adilene rce(s) Supporting Document(s) SARS CORONAVIRUS 2 RNA [facility] This lab was ordered by [facility] and reported by [facility]. ID Date Data Source [id number] 08/25/2019 12:07:46 PM EDT [facility] Name Value Range Interpretation Code Description Data Adilene rce(s) Supporting Document(s) SARS-COV-2 SUZANNA [facility] Not DetectedReference range: Not Detecte d Testing was performed using the marie(R) SARS-CoV-2 test. This test was developed and its performance characteristics determined by [employer]. This test has not been FDA cleared [...] detected) result in this assay. Performed At: [facility] [address] [id number] Rm Ott MD Ph:[phone] ID Date Data Source [id number] 08/14/2019 05:15:00 PM EDT [facility] Name Value Range Interpretation Code Description Data [...] [facility]) ID Date Data Source [id number] 08/14/2019 05:15:00 PM EDT [facility] ([facility] Name Value Range Interpretation Code Description Data Adilene rce(s) Supporting Document(s) White Blood Count 5.9 [facility] ([facility] Red Blood Count 4.11 [facility] Hematocrit 35.8 [facility] ([facility]) Hemoglobin 11.7 [facility]) Platelets 279 [facility] ID Date Data Source [id number] 06/26/2019 11:01:00 AM EDT [facility] ([facility]) Name Value Range Interpretation Code Description Data Adilene rce(s) Supporting Document(s) Hemoglobin A1c/Hemoglobin.total in Blood 9.2 [facility] ([facility]) ID Date Data Source [id number] 06/26/2019 11:01:00 AM EDT [facility] ([facility] Name Value Range Interpretation Code Description Data Adilene rce(s) Supporting Document(s) Alanine aminotransferase [Enzymatic activity/volume] in Serum or Pl asma 35 [facility] ([facility]) Albumin [Mass/volume] in Serum or Plasma 4.1 [facility] ([facility]) Chloride [Moles/volume] in Serum or Plasma 100 [facility] ([facility]) Carbon dioxide, total [Moles/volume] in Serum or Plasma 29 [facility] ([facility]) Calcium [Mass/volume] in Serum or Plasma 9.9 [facility] ([facility]) Protein [Mass/volume] in Serum or Plasma 7.1 [facility] ([facility]) Potassium [Moles/volume] in Serum or Plasma 3.9 [facility] ([facility]) Alkaline phosphatase [Enzymatic activity/volume] in Serum or Plasma 6 3 [facility] ([facility]) Urea nitrogen [Mass/volume] in Serum or Plasma 28 [facility] ([facility]) Sodium 137 [facility] ([facility] Aspartate aminotransferase [Enzymatic activity/volume] in Serum or Plasma 23 [facility] ([facility]) Glucose 225 70-100 [facility] Creatinine For GFR 1.19 [facility] ([facility]) ID Date Data Source [id number] 06/26/2019 11:01:00 AM EDT [facility] ([facility] Name Value Range Interpretation Code Description Data Adilene rce(s) Supporting Document(s) Cholesterol 158 [facility] ([facility]) Triglycerides 258 [facility] ([facility]) Cholesterol in LDL [Mass/volume] in Serum or Plasma by calculation 65 [facility] ([facility]) HDL 41 [facility] ([facility] Chol/HDL Ratio 3.853 [facility] ([facility]) ID Date Data Source [id number] 06/05/2019 01:22:08 PM EDT [facility] Measurements & CalculationsHeight: 65 inches (5 [...] (ER) or urgent care clinic? Yes - [facility] diarrehaEmergency room (ER) or urgent care date reported today: 05/24/2019Have you seen another healthcare provider? Yes - Dr. Jimenez, Mri Technologist and pulmHave you seen a dentist? NoRate [...] Denies fevers, vomiting, blood in stool. 05/24/2019 [facility] ER stool GI panel was positive for [...] of the facility. 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 Again, this would be for more detailed care in regards to her frequent ER visits, poorly controlled diabetes, physical deconditioning which does make her a fall risk.Assessed:Edema, unspecified (UJX34-P32.9) Assessment: Instructions: Please have your daughter let me know what specific [place] office you went to previously for your [...] or 2) looking into switching to the group home side of [facility] (or patient questioned going elsewhere). Again, this would be for more detailed care in regards to her frequent ER visits, poorly controlled diabetes, physical deconditioning which does make her a fall risk.Edema- unspecified: Please have your daughter let me know what specific [place] office you went to previously for your desired compression socks. If she recalls where it was, I will do my best to write for them again. Plan developed in collaboration with patient and/or familyMedications:AUTOLET LANCING [id number] BLOOD GLUCOSE TEST IN VITRO STRIPPHYSICAL THERAPY EVAL AND TREATSALINE MIST SPRAY 0.65 % NASAL SOLUTIONVITAMIN D3 50 MCG (1999 [place]) ORAL CAPSULELYRICA 100 MG ORAL CAPSULEVALSARTAN 40 MG ORAL TABLETOMEPRAZOLE 40 MG ORAL CAPSULE DELAYED RELEASEK-TAB 20 MEQ ORAL TABLET EXTENDED RELEASETYLENOL 8 HOUR ARTHRITIS PAIN 650 MG ORAL TABLET EXTENDED RELEASEELIQUIS 5 MG ORAL TABLETBD AUTOSHIELD DUO 30G X 5 [id number] BLOOD GLUCOSE SYSTEM W/DEVICE KITPRAVACHOL 40 MG [...] Refills: 0 Method: Print then Give to [id number] BLOOD GLUCOSE TEST IN VITRO STRIP-Test glucose QID and prn Qty: 300[Strip] Refills: 5 Method: ElectronicAUTOLET LANCING DEVICE- Test glucose QID and prn Qty: 300[Lancet] Refills: 5 Method: ElectronicChanged: To: GE100 BLOOD GLUCOSE SYSTEM W/DEVICE KITAllergies:METOPROLOL TARTRATE (METOPROLOL TARTRATE TABS) (Critical)* LATEX (Critical)* NYLON TAPE (Severe)* QUINOLONES (Moderate)MORPHINE SULFATE (MORPHINE SULFATE) (Mild)Orders:Adult - Ofc Vst, EST, Level III [[id number]] Follow-Up Return to clinic: in 4 weeks for follow upMedications:AUTOLET LANCING DEVICE (LANCET DEVICES) Test glucose QID and prn #300[Lancet] x 5 Route:IN VITRO Entered and Authorized by: Marcie PABLO Method used: Electronically to [facility], In* (retail) [address] [place] [address] Note to Pharmacy: Route: IN VITRO; 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;TYPE 2 DIABETES MELLITUS WITHOUT COMPLICATIONS RxID: [id number] BLOOD GLUCOSE TEST IN VITRO STRIP (GLUCOSE BLOOD) Test glucose QID and prn #300[Strip] x 5 Route:IN VITRO Entered and Authorized by: Marcie PABLO Method used: Electronically to [facility], In* (retail) [address] [place] [address] Note to Pharmacy: Route: IN VITRO; 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;TYPE 2 DIABETES MELLITUS WITHOUT COMPLICATIONS RxID: [id number] THERAPY EVAL AND TREAT as indicated 3x weekly x 6 weeks #1 x 0 Route:ORAL Entered and Authorized by: Marcie PABLO Method used: Print then Give to Patient Note to Pharmacy: Route: ORAL; Indications: PAIN IN RIGHT HIP RxID: [id number] THERAPY EVAL AND TREAT as indicated 3x weekly x 6 weeks #1 x 0 Route:ORAL Entered and Authorized by: Marcie PABLO Method used: Print then Give to Patient Note to Pharmacy: Route: ORAL; Indications: PAIN IN RIGHT HIP RxID: [id number] 250 MG ORAL TABLET (AZITHROMYCIN) Take 2 tablets po on day 1, then 1 tablet daily for 4 additional days #6[Tablet] x 0 Route:ORAL Entered and Authorized by: Marcie PABLO Method used: Electronically to [facility], In* (retail) [address] [place] [address] Ph: [phone] Note to Pharmacy: Route: ORAL; Indications: ENTERIC CAMPYLOBACTERIOSIS RxID: [id number] signed by Marcie PABLO on 06/11/2019 at 7:54 AM Name Value Range Interpretation Code Description Data Adilene rce(s) Supporting Document(s) ID Date Data Source [id number] 05/24/2019 05:35:00 PM EDT [facility] ([facility]) Name Value Range Interpretation Code Description Data Adilene rce(s) Supporting Document(s) Red Blood Count 3.95 4.00-5.40 [facility] ([facility]) White Blood Count 5.5 4.0-10.0 [facility] ([facility]) Hematocrit 34.7 [facility] ([facility]) Platelets 258 150-450 [facility] ([facility]) Hemoglobin 11.5 [facility] ([facility]) ID Date Data Source [id number] 05/24/2019 05:35:00 PM EDT [facility] ([facility]) Name Value Range Interpretation Code Description Data Adilene rce(s) Supporting Document(s) Troponin Laboratory test result [facility] ([facility]) Magnesium Level 1.8 1.8-2.4 [facility] ([facility]) Lipoprotein lipase [Enzymatic activity/volume] in Serum or Plasma 100 [facility] ([facility]) ID Date Data Source [id number] 05/24/2019 05:35:00 PM EDT [facility] ([facility]) Name Value Range Interpretation Code Description Data Adilene rce(s) Supporting Document(s) CPK-MB 2.1 [facility] ([facility]) Creatine kinase [Enzymatic activity/volume] in Serum or Plasma 129 MEDENT ([facility]) ID Date Data Source [id number] 05/24/2019 05:35:00 PM EDT MEDENT ([facility]) Name Value Range Interpretation Code Description Data Adilene rce(s) Supporting Document(s) Alanine aminotransferase [Enzymatic activity/volume] in Serum or Pl asma 38 MEDENT ([facility]) Albumin [Mass/volume] in Serum or Plasma 3.4 MEDENT ([facility]) Alkaline phosphatase [Enzymatic activity/volume] in Serum or Plasma 5 7 MEDENT ([facility]) Chloride [Moles/volume] in Serum or Plasma 104 MEDENT ([facility]) Calcium [Mass/volume] in Serum or Plasma 8.5 MEDENT ([facility]) Carbon dioxide, total [Moles/volume] in Serum or Plasma 29 MEDENT ([facility]) Potassium [Moles/volume] in Serum or Plasma 3.3 MEDENT ([facility]) Sodium 138 MEDENT ([facility] Protein [Mass/volume] in Serum or Plasma 6.2 MEDENT ([facility]) Glucose 263 83-110 MEDENT ([facility]) Creatinine For GFR 1.37 MEDENT ([facility]) Aspartate aminotransferase [Enzymatic activity/volume] in Serum or Plasma 21 MEDENT ([facility]) Urea nitrogen [Mass/volume] in Serum or Plasma 21 MEDENT ([facility]) ID Date Data Source [id number] 05/24/2019 02:04:44 PM EDT [facility] Measurements & CalculationsHeight: 65 inches (5 [...] been admitted to the hospital? Yes - [facility] syncope and dyspneaHospital admission date reported today: [...] for dyspnea and syncope.Pt was admitted to [facility] 05/07/19-05/09/19 for dyspnea. 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 (ICD-V58.67) (ICD10- Z79.4)Assessed:Type 2 diabetes mellitus without complications (BVO85-Y77.9) A ssessment: Instructions: Poor control over her [...] soda and sugary foods.Acute right heart failure (HHG90-M04.811) Assessment: Instructions: Recommend oupatient cardiac consult for evaluation of her constant breathlessness.Bleeding from nose (ICD-784.7) (VFP34-T39.0) Assessment: Instructions: Start saline nasal spray as [...] ORAL LYRICA 75 MG ORAL CAPSULE Qty: [id number] Refills: 60[Capsule] To: LYRICA 100 MG ORAL CAPSULE-Take 1 capsule PO BID Qty: 60[Capsule] Refills: 3Allergies:METOPROLOL TARTRATE (METOPROLOL TARTRATE TABS) (Critical)* LATEX (Critical)* NYLON TAPE (Severe)* QUINOLONES (Moderate)MORPHINE SULFATE (MORPHINE SULFATE) (Mild)Orders:Endocrinology Consult [CPT-56186] Cardiology Consult [CPT-00466] Adult - Ofc Vst, EST, Level III [CPT-40197] Follow-Up Return to clinic: in 4-6 weeks for follow upAdditional Follow-Up: referral follow-upClinical Visit Summary DeclinedMedications:LYRICA 100 MG ORAL CAPSULE (PREGABALIN) Take 1 capsule PO BID #60[Capsule] x 3 Route:ORAL Entered and Authorized by: Marcie PABLO Method used: Electronically to [facility], In* (retail) [address] [place] [address] Ph: Note to Pharmacy: Route: ORAL; Indica tions: CHRONIC PAIN RxID: [id number]] Name Value Range Interpretation Code Description Data Adilene rce(s) Supporting Document(s) ID Date Data Source [id number] 05/08/2019 05:38:00 PM EST MEDENT ([facility]) Name Value Range Interpretation Code Description Data Adilene rce(s) Supporting Document(s) Troponin Laboratory test result [facility] ([facility]) ID Date Data Source [id number] 05/08/2019 05:38:00 PM EST MEDENT ([facility]) Name Value Range Interpretation Code Description Data Adilene rce(s) Supporting Document(s) CPK-MB 4.6 MEDENT ([facility]) Creatine kinase [Enzymatic activity/volume] in Serum or Plasma 275 MEDENT ([facility]) ID Date Data Source [id number] 04/19/2019 08:25:00 AM [facility] Name Value Range Interpretation Code Description Data Adilene rce(s) Supporting Document(s) APPEARANCE U CLEAR CLEAR N [facility] SPEC GR URIN 1.011 1.002-1.035 N [facility] UA COLOR YELLOW YELLOW N [facility] ID Date Data Source [id number] 04/18/2019 02:30:00 PM EST [facility] Name Value Range Interpretation Code Description Data Adilene rce(s) Supporting Document(s) HCT 37.4 % 36.0-47.0 N [facility] HGB 12.6 g/dL 12.0-15.5 N [facility] MCH 33.7 G/DL pg 32.0-36.[address] [facility] MCHC 29.3 PG % 27.0-33.0 [facility] PLATELETS 286 10 10*3/mm3 150-450 N [facility] RBC 4.30 10 10*6/mm3 4.00-5.40 N [facility] RDW 12.7 % 11.5-14.5 N [facility] WBC TOTAL 9.4 4.0-10.0 N [facility] ID Date Data Source [id number] 04/18/2019 02:30:00 PM [facility] Name Value Range Interpretation Code Description Data Adilene rce(s) Supporting Document(s) BG FASTING 171 mg/dL 70-100 H [facility] ID Date Data Source [id number] 04/18/2019 01:25:11 PM [facility] Measurements & CalculationsHeight: 65 inches (5 [...] lives in the assisted living portion of [facility]. Pt states the nursing staff check [...] during this visit, including review of any dxbj-xhe-xfewrja medications, herbal therapies, and/or supplements.Allergy ReviewAllergy List [...] evaluate for possible bladder infection.Assessed:Acute diarrhea (ICD-787.91) (CUH45-P07.7) Assessment: Instructions: Stool culture ordered. Stokes diet, plenty of fluids. Labs drawn today to assess for dehydration and elevated white blood cell count. Hold fenofibrate until diarrhea free x 24 hours.Carpal tunnel syndrome of right wrist (YDD81-F26.01) Assessment: Instructions: Continue with surgery as scheduled ONLY if afebrile, diarrhea free, and feeling well for 24 hours prior to surgery.Assessment not Saved Acute diarrhea (XZQ08-G78.7): Patient Instructions/Care Plan: Acute diarrhea: Stool culture ordered. Stokes diet, plenty of fluids. Labs drawn today [...] (Moderate)MORPHINE SULFATE (MORPHINE SULFATE) (Mild)Orders:CBC W/DIFF [CPT- 87576] COMP METABOLIC PANEL [CPT-83593] Urinalysis-automated [CPT-59291] Urine Culture & Sensitivity [CPT-07183] URINALYSIS [CPT-79283] GI Panel - Stool [CPT- 78192] 85968 - Venipuncture [CPT-49661] Adult - Ofc Vst, EST, Level III [CPT- 89346] Follow-Up Return to clinic: in 1 month [...] rce(s) Supporting Document(s) ID Date Data Source [id number] 04/03/2019 03:46:52 PM [facility] Measurements & CalculationsHeight: 65 inches 165.10 cm [...] visit...Have you been admitted to the hospital? [facility] stomach and bladder painsHospital admission date reported today: 11/08/2018Have you been to an emergency room (ER) or urgent care clinic? No - [facility] ER SOBEmergency room (ER) or urgent care date reported today: 11/19/2018Have you seen another healthcare provider? Yes - renny, orthoHave you seen a dentist? NoIntake performed [...] visit today, presents unaccompanied, currently living at [facility].Diarrhea x 4 days with incontinence, currently goes 3-4 times daily. Denies sick contact or medication changes. Denies fevers. Denies dietary changes.Pt has nursing staff administer her medications and check her glucoses. She also brought meal plans from [facility] living, scanned into chart, and states she sometimes [...] FairAssessment & Plan Problems:Added: Acute diarrhea (ICD-787.91) (MXC79-J15.7) Assessment: Instructions: Improved at this time. If diarrhea returns, please call for stool study to test for infection.Carpal tunnel syndrome of right wrist (YVU46-J91.01) Assessment: Instructions: Continue per orthopedics.Assessed:Type 2 diabetes [...] * GABAPENTIN 100MG-1 po qd, * D3-50 17251 UNITS-5000 po every monday, VITAMIN D2 TABLET- take 2 tabs of 1.25mg weekly, * PRAVASTATIN SODIUM 40 MG-1 tablet po qd, * VOLTAREN GEL 1%-as directed topically 3 x per day to joints of hands for pain, KLOR-CON 20 MEQ ORAL PACKET-1 paket po qd Qty: 30[Packet] Refills: 5, HUMALOG KWIKPEN 100 UNIT/ML SUBCUTANEOUS SOLUTION MOB-YYLVCPMP-3 units SQ for FSBS 100- 150 then [...] prnOrders:Adult - Ofc Vst, EST, Level III [CPT-86116] Follow-Up Return to clinic: in 2 weeks for diabetesMedications:Cancelled POLYETHYLENE GLYCOL 3350 ORAL POWDER (POLYETHYLENE GLYCOL 3350) 1 capful with large glass of water qd prn constipation #1[Container] x 5 Entered by: Marcie PABLO Authorized by: Tami Hernández MD Method used: Electronically to [facility], In* (retail) [address] [place] [address] RxID: [id number] HUMALOG KWIKPEN 100 UNIT/ML SUBCUTANEOUS SOLUTION PEN- INJECTOR (INSULIN LISPRO) 2 units SQ for FSBS 100-150 then per sliding scale/ MD instructions. MDD 50 units #5[Prefilled Pen Syrnge] x 5 Route:SUBCUTANEOUS Entered by: Marcie PABLO Authorized by: Ella COLON Method used: Electronically to [facility], In* (retail) [address] [place] [address] RxID: [id number] KLOR-CON 20 MEQ ORAL PACKET (POTASSIUM CHLORIDE) 1 paket po qd #30[Packet] x 5 Entered by: Marcie PABLO Authorized by: Tami Hernández MD Method used: Electronically to [facility], In* (retail) [address] [place] [address] Fax: RxID: [id number] signed by Marcie PABLO on 04/10/2019 at 8:19 AM Name Value Range Interpretation Code Description Data Adilene rce(s) Supporting Document(s) ID Date Data Source [id number] 04/02/2019 12:15:45 PM EST [facility], PCName: Manju Gillette: 2Provider: Sari [...] document was dictated and electronically signed using [employer] software. A reasonable attempt at proof reading [...] EST Former Smoker completed Former Smoker [facility] Smoking 04/22/2020 12:00:00 AM EST Former Smoker completed Former Smoker eCW1 ([facility]) Smoking 04/22/2020 12:00:00 AM EST Former Smoker completed Former Smoker eCW1 ([facility]) Smoking 04/22/2020 12:00:00 AM EST Former Smoker completed Former Smoker eCW1 ([facility]) Smoking 04/22/2020 12:00:00 AM EST Former Smoker completed Former Smoker eCW1 ([facility]) Smoking 04/08/2020 12:00:00 AM EST Former Smoker completed Former Smoker eCW1 ([facility]) Smoking 04/08/2020 12:00:00 AM EST Former Smoker completed Former Smoker eCW1 ([facility]) Smoking 03/24/2020 12:00:00 AM EST Former Smoker completed Former Smoker eCW1 ([facility]) Smoking 03/24/2020 12:00:00 AM EST Former Smoker completed Former Smoker eCW1 ([facility]) Smoking 03/24/2020 12:00:00 AM EST Former Smoker completed Former Smoker eCW1 ([facility]) Smoking 02/27/2020 12:00:00 AM EST Former Smoker completed Former Smoker eCW1 ([facility]) Smoking 02/27/2020 12:00:00 AM EST Former Smoker completed Former Smoker eCW1 ([facility]) Smoking 02/27/2020 12:00:00 AM EST Former Smoker completed Former Smoker eCW1 ([facility]) Smoking 02/27/2020 12:00:00 AM EST Former Smoker completed Former Smoker eCW1 ([facility]) Smoking 02/27/2020 12:00:00 AM EST Former Smoker completed Former Smoker eCW1 ([facility]) Smoking 02/27/2020 12:00:00 AM EST Former Smoker completed Former Smoker eCW1 ([facility]) Smoking 02/27/2020 12:00:00 AM EST Former Smoker completed Former Smoker eCW1 ([facility]) Smoking 02/21/2020 12:00:00 AM EST Former Smoker completed Former Smoker eCW1 ([facility]) Smoking 01/07/2020 12:00:00 AM EDT Former Smoker completed Former Smoker eCW1 ([facility]) Smoking 01/07/2020 12:00:00 AM EDT Former Smoker completed Former Smoker eCW1 ([facility]) Smoking 01/07/2020 12:00:00 AM EDT Former Smoker completed Former Smoker eCW1 ([facility]) Smoking 01/07/2020 12:00:00 AM EDT Former Smoker completed Former Smoker eCW1 ([facility]) Smoking 01/07/2020 12:00:00 AM EDT Former Smoker completed Former Smoker eCW1 ([facility]) Smoking 01/07/2020 12:00:00 AM EDT Former Smoker completed Former Smoker eCW1 ([facility]) Smoking 01/07/2020 12:00:00 AM EDT Former Smoker completed Former Smoker eCW1 ([facility]) Smoking 01/07/2020 12:00:00 AM EDT Former Smoker completed Former Smoker eCW1 ([facility]) Smoking 01/07/2020 12:00:00 AM EDT Former Smoker completed Former Smoker eCW1 ([facility]) Smoking 01/07/2020 12:00:00 AM EDT Former Smoker completed Former Smoker eCW1 ([facility]) Smoking 01/07/2020 12:00:00 AM EDT Former Smoker completed Former Smoker eCW1 ([facility]) Smoking 01/07/2020 12:00:00 AM EDT Former Smoker completed Former Smoker eCW1 ([facility]) Smoking 12/12/2019 12:00:00 AM EDT - 03/13/2007 12:00:00 AM EST Patient is a former smoker completed Patient is a former smoker MEDENT ([facility] ) Smoking 10/16/2019 12:00:00 AM EDT Patient is a former smoker completed Patient is a former smoker MEDENT ([facility]) Alcohol intake 08/27/2019 12:00:00 AM EDT Not Currently completed [facility] Cigarettes smoked current (pack per day) - Reported 08/27/19 20 12:00:00 AM EDT UNK completed [facility] Smoking 08/27/2019 12:00:00 AM EDT Former smoker completed Former smoker [facility] Smoking 08/13/2019 12:00:00 AM EDT Patient is a former smoker completed Patient is a former smoker MEDENT ([facility]) Smoking 07/16/2019 12:00:00 AM EDT Former Smoker completed Former Smoker eCW1 [facility] Smoking 07/16/2019 12:00:00 AM EDT Former Smoker completed Former Smoker eCW1 ([facility]) Smoking 07/16/2019 12:00:00 AM EDT Former Smoker completed Former Smoker eCW1 ([facility]) Smoking 07/16/2019 12:00:00 AM EDT Former Smoker completed Former Smoker eCW1 ([facility]) Smoking 07/16/2019 12:00:00 AM EDT Former Smoker completed Former Smoker eCW1 ([facility]) Smoking 07/16/2019 12:00:00 AM EDT Former Smoker completed Former Smoker eCW1 ([facility]) Smoking 07/16/2019 12:00:00 AM EDT Former Smoker completed Former Smoker eCW1 ([facility]) Smoking 07/16/2019 12:00:00 AM EDT Former Smoker completed Former Smoker eCW1 ([facility]) Smoking 07/16/2019 12:00:00 AM EDT Former Smoker completed Former Smoker eCW1 ([facility]) Smoking 07/16/2019 12:00:00 AM EDT Former Smoker completed Former Smoker eCW1 ([facility]) Vital Signs ID Date Data Source UNK Name Value Range Interpretation Code Description Data Source(s) Diastolic blood pressure 50 mm[Hg] 50 mm[Hg] eCW1 ([facility]) Systolic blood pressure 148 mm[Hg] 148 mm[Hg] e CW1 ([facility]) Body temperature 97.6 [degF] 97.6 [degF] eCW1 ( [facility]) Respiratory rate 18 /min 18 /min eCW1 ([facility]) Heart rate 76 /min 76 /min eCW1 ([facility]) Body mass index (BMI) [Ratio] 51.08 kg/m2 51.08 kg/m2 W1 ([facility]) Body height 65 [in_i] 65 [in_i] eCW1 ([facility]) Body weight 307 [lb_av] 307 [lb_av] eCW1 ([facility]) Body mass index (BMI) [Ratio] 59.0 kg/m2 59.0 k g/m2 MEDENT ([facility] ) Body weight 302.00 [lb_av] 302.00 [lb_av] MEDEN T ([facility] ) Body height 60 [in_i] 60 [in_i] MEDENT ([facility] ) 5'0" Body temperature 96.8 [degF] 96.8 [degF] MEDENT ([facility] ) Diastolic blood pressure 70 mm[Hg] 70 mm[Hg] eCW1 ([facility]) Systolic blood pressure 144 mm[Hg] 144 mm[Hg] e CW1 ([facility]) Body temperature 97.9 [degF] 97.9 [degF] eCW1 ( [facility]) Respiratory rate 20 /min 20 /min eCW1 ([facility]) Heart rate 84 /min 84 /min eCW1 ([facility]) Body mass index (BMI) [Ratio] 50.32 kg/m2 50.32 kg/m2 eCW1 ([facility]) Body height 65 [in_i] 65 [in_i] eCW1 ([facility]) Body weight 302.4 [lb_av] 302.4 [lb_av] eCW1 ([facility]) Diastolic blood pressure 64 mm[Hg] 64 mm[Hg] eCW1 ([facility]) Systolic blood pressure 110 mm[Hg] 110 mm[Hg] e CW1 ([facility]) Body temperature 97.0 [degF] 97.0 [degF] eCW1 ( [facility]) Respiratory rate 18 /min 18 /min eCW1 ([facility]) Heart rate 83 /min 83 /min eCW1 ([facility]) Body mass index (BMI) [Ratio] 49.75 kg/m2 49.75 kg/m2 eCW1 ([facility]) Body height 65 [in_i] 65 [in_i] eCW1 ([facility]) Body weight 299 [lb_av] 299 [lb_av] eCW1 ([facility]) Diastolic blood pressure 62 mm[Hg] 62 mm[Hg] eCW1 ([facility]) Systolic blood pressure 112 mm[Hg] 112 mm[Hg] e CW1 ([facility]) Body temperature 98.0 [degF] 98.0 [degF] eCW1 ( [facility]) Respiratory rate 18 /min 18 /min eCW1 ([facility]) Heart rate 93 /min 93 /min eCW1 ([facility]) Body mass index (BMI) [Ratio] 49.09 kg/m2 49.09 kg/m2 eCW1 ([facility]) Body height 65 [in_i] 65 [in_i] eCW1 ([facility]) Body weight 295 [lb_av] 295 [lb_av] eCW1 ([facility]) Diastolic blood pressure 62 mm[Hg] 62 mm[Hg] eCW1 ([facility]) Systolic blood pressure 138 mm[Hg] 138 mm[Hg] e CW1 ([facility]) Body temperature 96.9 [degF] 96.9 [degF] eCW1 ( [facility]) Respiratory rate 20 /min 20 /min eCW1 ([facility]) Heart rate 91 /min 91 /min eCW1 ([facility]) Body mass index (BMI) [Ratio] 49.68 kg/m2 49.68 kg/m2 eCW1 ([facility]) Body height 65 [in_i] 65 [in_i] eCW1 ([facility]) Body weight 298.6 [lb_av] 298.6 [lb_av] eCW1 ([facility]) Diastolic blood pressure 70 mm[Hg] 70 mm[Hg] eCW1 ([facility]) Systolic blood pressure 122 mm[Hg] 122 mm[Hg] e CW1 ([facility]) Body temperature 97.5 [degF] 97.5 [degF] eCW1 ( [facility]) Respiratory rate 18 /min 18 /min eCW1 ([facility]) Heart rate 88 /min 88 /min eCW1 ([facility]) Body mass index (BMI) [Ratio] 48.52 kg/m2 48.52 kg/m2 eCW1 ([facility]) Body height 65 [in_i] 65 [in_i] eCW1 ([facility]) Body weight 291.6 [lb_av] 291.6 [lb_av] eCW1 ([facility]) Diastolic blood pressure 70 mm[Hg] 70 mm[Hg] eCW1 ([facility]) Systolic blood pressure 122 mm[Hg] 122 mm[Hg] e CW1 ([facility]) Body temperature 97.5 [degF] 97.5 [degF] eCW1 ( [facility]) Respiratory rate 18 /min 18 /min eCW1 ([facility]) Heart rate 88 /min 88 /min eCW1 ([facility]) Body mass index (BMI) [Ratio] 48.52 kg/m2 48.52 kg/m2 eCW1 ([facility]) Body height 65 [in_i] 65 [in_i] eCW1 ([facility]) Body weight 291.6 [lb_av] 291.6 [lb_av] eCW1 ([facility]) [place] body weight 120 [lb_av] 120 [lb_av] MEDEN T ([facility], ) Body height 64 [in_i] 64 [in_i] [facility] 5'4" Oxygen saturation in Arterial blood by Pulse oximetry 95 % 95 % [facility] ([facility], ) Room Air Heart rate 73 /min 73 /min MEDENT ([facility], ) Diastolic blood pressure 70 mm[Hg] 70 mm[Hg] MEDENT ([facility], ) Systolic blood pressure 118 mm[Hg] 118 mm[Hg] M EDENT ([facility], ) Body mass index (BMI) [Ratio] 46.5 kg/m2 46.5 k g/m2 MEDENT ([facility]) Body weight 288.00 [lb_av] 288.00 [lb_av] MEDEN T ([facility]) Body height 66 [in_i] 66 [in_i] MEDENT ([facility]) 5'6" Body temperature 97.7 [degF] 97.7 [degF] [facility] ([facility]) Oxygen saturation in Arterial blood by Pulse oximetry 95 % 95 % [facility] Respiratory rate 18 /min 18 /min [facility] Body temperature 36.39 Claudia 36.39 Claudia [facility] Heart rate 73 /min 73 /min [facility] Diastolic blood pressure 70 mm[Hg] 70 mm[Hg] [facility] Systolic blood pressure 149 mm[Hg] 149 mm[Hg] [facility] Body mass index (BMI) [Ratio] 46.33 kg/m2 46.33 kg/m2 [facility] Body weight 130.2 kg 130.2 kg [facility] Body height 167.6 cm 167.6 cm [facility] Diastolic blood pressure--sitting 55 mm[Hg] 55 mm[Hg] MEDENT ([facility]) CBP large cuff, Ra Systolic blood pressure--sitting 115 mm[Hg] 115 mm[Hg] MEDENT ([facility]) CBP large cuff, Ra Heart rate 65 /min 65 /min MEDENT ([facility]) Body mass index (BMI) [Ratio] 45.7 kg/m2 45.7 k g/m2 MEDENT ([facility]) Body height 66 [in_i] 66 [in_i] MEDENT ([facility]) 5'6" Body weight 283.00 [lb_av] 283.00 [lb_av] MEDEN T ([facility]) Body surface area Derived from formula 2.26 m2 2.26 m2 [facility] ([facility]) Body weight 127.008 kg 127.008 kg [facility] ([facility]) [place] body weight 120 [lb_av] 120 [lb_av] MEDEN T ([facility]) Body mass index (BMI) [Ratio] 48.1 kg/m2 48.1 k g/m2 [facility] ([facility]) Body weight 280.00 [lb_av] 280.00 [lb_av] MEDEN T ([facility]) Body height 64 [in_i] 64 [in_i] [facility] ([facility]) 5'4" Diastolic blood pressure 69 mm[Hg] 69 mm[Hg] [facility] ([facility]) Systolic blood pressure 131 mm[Hg] 131 mm[Hg] [facility] Body temperature 96.8 [degF] 96.8 [degF] [facility] ([facility]) Oxygen saturation in Arterial blood by Pulse oximetry 96 % 96 % [facility] ([facility]) Room Air Heart rate 80 /min 80 /min [facility] ([facility], ) Diastolic blood pressure 80 mm[Hg] 80 mm[Hg] [facility] ([facility], ) Systolic blood pressure 126 mm[Hg] 126 mm[Hg] M EDENT ([facility], ) Body weight 127.462 kg 127.462 kg [facility] ([facility], ) Body mass index (BMI) [Ratio] 48.2 kg/m2 48.2 k g/m2 [facility] ([facility], ) Body weight 281.00 [lb_av] 281.00 [lb_av] MEDEN T ([facility], ) Body height 64 [in_i] 64 [in_i] [facility] ([facility] [facility], ) 5'4" Diastolic blood pressure 60 mm[Hg] 60 mm[Hg] [facility] Systolic blood pressure 108 mm[Hg] 108 mm[Hg] e CW1 ([facility]) Body temperature 96.9 [degF] 96.9 [degF] eCW1 ( [facility]) Respiratory rate 20 /min 20 /min eCW1 ([facility]) Heart rate 88 /min 88 /min W1 ([facility]) Body mass index (BMI) [Ratio] 46.22 kg/m2 46.22 kg/m2 [facility] ([facility]) Body height 65 [in_us] 65 [in_us] eCW1 ([facility]) Body weight Measured 277.8 [lb_av] 277.8 [lb_av ] eCW1 ([facility]) Body height 64 [in_i] 64 [in_i] [facility] ([facility], ) 5'4" Oxygen saturation in Arterial blood by Pulse oximetry 95 % 95 % [facility] ([facility], ) Room Air Heart rate 80 /min 80 /min [facility] ([facility], ) Diastolic blood pressure 70 mm[Hg] 70 mm[Hg] [facility] ([facility], ) Systolic blood pressure 118 mm[Hg] 118 mm[Hg] M EDENT ([facility] ) Diastolic blood pressure 56 mm[Hg] 56 mm[Hg] eCW1 ([facility] Systolic blood pressure 106 mm[Hg] 106 mm[Hg] e CW1 ([facility]) Body temperature 97.6 [degF] 97.6 [degF] eCW1 ( [facility]) Respiratory rate 20 /min 20 /min eCW1 ([facility]) Heart rate 90 /min 90 /min eCW1 ([facility]) Body mass index (BMI) [Ratio] 45.82 kg/m2 45.82 kg/m2 eCW1 ([facility]) Body height 65 [in_us] 65 [in_us] eCW1 ([facility]) Body weight Measured 275.4 [lb_av] 275.4 [lb_av ] eCW1 ([facility]) Body weight 122.472 kg 122.472 kg [facility] ([facility], ) Body mass index (BMI) [Ratio] 46.3 kg/m2 46.3 k g/m2 [facility] ([facility]) Body weight 270.00 [lb_av] 270.00 [lb_av] MEDEN T ([facility], ) Body height 64 [in_i] 64 [in_i] [facility] 5'4" Diastolic blood pressure 62 mm[Hg] 62 mm[Hg] [facility] ([facility], ) Systolic blood pressure 132 mm[Hg] 132 mm[Hg] M DEYA ([facility], ) Body mass index (BMI) [Ratio] 43.1 kg/m2 43.1 k g/m2 [facility] ([facility]) Body weight 267.25 [lb_av] 267.25 [lb_av] MEDEN T ([facility]) Body height 66 [in_i] 66 [in_i] [facility] ([facility]) 5'6" Body temperature 98.3 [degF] 98.3 [degF] [facility] ([facility]) Patient Treatment Plan of Care Planned Activity Planned Date Details Description Data Source (s) pregabalin 300 MG Oral Capsule [Lyrica] 03/24/2020 12:00:00 AM EST eCW1 [facility] Doxycycline Monohydrate 100 MG Oral Capsule 03/24/2020 12:00:00 AM EST eCW1 ([facility]) pregabalin 300 MG Oral Capsule [Lyrica] 03/24/2020 12:00:00 AM EST eCW1 ([facility]) Doxycycline Monohydrate 100 MG Oral Capsule 03/24/2020 12:00:00 AM EST eCW1 ([facility]) pregabalin 300 MG Oral Capsule [Lyrica] 03/24/2020 12:00:00 AM EST eCW1 ([facility]) Doxycycline Monohydrate 100 MG Oral Capsule 03/24/2020 12:00:00 AM EST eCW1 ([facility]) May Have - 02/27/2020 12:00:00 AM EST e CW1 ([facility]) pregabalin 50 MG Oral Capsule [Lyrica] 02/27/2020 12:00:00 AM EST eCW1 ([facility]) May Have - 02/27/2020 12:00:00 AM EST e CW1 ([facility]) pregabalin 50 MG Oral Capsule [Lyrica] 02/27/2020 12:00:00 AM EST eCW1 ([facility]) May Have - 02/27/2020 12:00:00 AM EST e CW1 ([facility]) pregabalin 50 MG Oral Capsule [Lyrica] 02/27/2020 12:00:00 AM EST eCW1 ([facility]) May Have - 02/27/2020 12:00:00 AM EST e CW1 ([facility]) pregabalin 50 MG Oral Capsule [Lyrica] 02/27/2020 12:00:00 AM EST eCW1 ([facility]) May Have - 02/27/2020 12:00:00 AM EST e CW1 ([facility]) pregabalin 50 MG Oral Capsule [Lyrica] 02/27/2020 12:00:00 AM EST eCW1 ([facility]) pregabalin 50 MG Oral Capsule [Lyrica] 02/27/2020 12:00:00 AM EST eCW1 ([facility]) May Have - 02/27/2020 12:00:00 AM EST e CW1 ([facility]) pregabalin 50 MG Oral Capsule [Lyrica] 02/27/2020 12:00:00 AM EST eCW1 ([facility]) May Have - 02/27/2020 12:00:00 AM EST e CW1 ([facility]) 60 ACTUAT Fluticasone propionate 0.1 MG/ ACTUAT / salmeterol 0.05 MG/ACTUAT Dry Powder Inhaler [Advair] 02/21/2020 12:00:00 AM EST eCW1 ([facility]) Insulin, Aspart, Human 100 UNT/ML Injectable Solution [NovoLog] 02/04/2020 12:00:00 AM EST eCW1 ([facility]) Insulin, Aspart, Human 100 UNT/ML Injectable Solution [NovoLog] 02/04/2020 12:00:00 AM EST eCW1 ([facility]) Insulin, Aspart, Human 100 UNT/ML Injectable Solution [NovoLog] 02/04/2020 12:00:00 AM EST eCW1 ([facility]) Insulin, Aspart, Human 100 UNT/ML Injectable Solution [NovoLog] 02/04/2020 12:00:00 AM EST eCW1 ([facility]) pregabalin 200 MG Oral Capsule [Lyrica] 12/20/2019 12:00:00 AM EDT eCW1 ([facility]) pregabalin 200 MG Oral Capsule [Lyrica] 12/20/2019 12:00:00 AM EDT eCW1 ([facility]) pregabalin 200 MG Oral Capsule [Lyrica] 12/20/2019 12:00:00 AM EDT eCW1 ([facility]) pregabalin 200 MG Oral Capsule [Lyrica] 12/20/2019 12:00:00 AM EDT eCW1 ([facility]) pregabalin 200 MG Oral Capsule [Lyrica] 12/20/2019 12:00:00 AM EDT eCW1 ([facility]) pregabalin 200 MG Oral Capsule [Lyrica] 12/20/2019 12:00:00 AM EDT eCW1 ([facility]) pregabalin 200 MG Oral Capsule [Lyrica] 12/20/2019 12:00:00 AM EDT eCW1 ([facility]) pregabalin 200 MG Oral Capsule [Lyrica] 12/20/2019 12:00:00 AM EDT eCW1 ([facility]) pregabalin 200 MG Oral Capsule [Lyrica] 12/20/2019 12:00:00 AM EDT eCW1 ([facility]) pregabalin 200 MG Oral Capsule [Lyrica] 12/20/2019 12:00:00 AM EDT eCW1 ([facility]) pregabalin 200 MG Oral Capsule [Lyrica] 12/20/2019 12:00:00 AM EDT eCW1 ([facility]) pregabalin 200 MG Oral Capsule [Lyrica] 12/20/2019 12:00:00 AM EDT eCW1 ([facility]) pregabalin 200 MG Oral Capsule [Lyrica] 12/20/2019 12:00:00 AM EDT eCW1 ([facility]) pregabalin 200 MG Oral Capsule [Lyrica] 12/20/2019 12:00:00 AM EDT eCW1 ([facility]) pregabalin 200 MG Oral Capsule [Lyrica] 12/20/2019 12:00:00 AM EDT eCW1 ([facility]) pregabalin 200 MG Oral Capsule [Lyrica] 12/20/2019 12:00:00 AM EDT eCW1 ([facility]) pregabalin 200 MG Oral Capsule [Lyrica] 12/20/2019 12:00:00 AM EDT eCW1 ([facility]) Acetaminophen 325 MG / Hydrocodone Bitartrate 5 MG Ora l Tablet 12/17/2019 12:00:00 AM EDT eCW1 ([facility]) Acetaminophen 325 MG / Hydrocodone Bitartrate 5 MG Ora l Tablet 12/17/2019 12:00:00 AM EDT eCW1 ([facility]) Acetaminophen 325 MG / Hydrocodone Bitartrate 5 MG Ora l Tablet 12/17/2019 12:00:00 AM EDT eCW1 ([facility]) Acetaminophen 325 MG / Hydrocodone Bitartrate 5 MG Ora l Tablet 12/17/2019 12:00:00 AM EDT eCW1 ([facility]) Acetaminophen 325 MG / Hydrocodone Bitartrate 5 MG Ora l Tablet 12/17/2019 12:00:00 AM EDT eCW1 ([facility]) Acetaminophen 325 MG / Hydrocodone Bitartrate 5 MG Ora l Tablet 12/17/2019 12:00:00 AM EDT eCW1 ([facility]) 3 ML Insulin, Aspart, Human 100 UNT/ML Pen Injector [N ovoLog] 09/11/2019 12:00:00 AM EDT eCW1 ([facility]) 3 ML Insulin, Aspart, Human 100 UNT/ML Pen Injector [N ovoLog] 09/11/2019 12:00:00 AM EDT eCW1 ([facility]) 3 ML Insulin, Aspart, Human 100 UNT/ML Pen Injector [N ovoLog] 09/11/2019 12:00:00 AM EDT eCW1 ([facility]) 3 ML Insulin, Aspart, Human 100 UNT/ML Pen Injector [N ovoLog] 09/11/2019 12:00:00 AM EDT eCW1 ([facility]) 3 ML Insulin, Aspart, Human 100 UNT/ML Pen Injector [N ovoLog] 09/11/2019 12:00:00 AM EDT eCW1 ([facility]) 3 ML Insulin, Aspart, Human 100 UNT/ML Pen Injector [N ovoLog] 09/11/2019 12:00:00 AM EDT eCW1 ([facility]) 3 ML Insulin, Aspart, Human 100 UNT/ML Pen Injector [N ovoLog] 09/11/2019 12:00:00 AM EDT eCW1 ([facility]) 3 ML Insulin, Aspart, Human 100 UNT/ML Pen Injector [N ovoLog] 09/11/2019 12:00:00 AM EDT eCW1 ([facility]) Cymbalta 60 MG 09/09/2019 12:00:00 AM EDT eCW1 [facility] Cymbalta 60 MG 09/09/2019 12:00:00 AM EDT eCW1 ([facility]) Cymbalta 60 MG 09/09/2019 12:00:00 AM EDT eCW1 ([facility]) Cymbalta 60 MG 09/09/2019 12:00:00 AM EDT eCW1 ([facility]) Cymbalta 60 MG 09/09/2019 12:00:00 AM EDT eCW1 ([facility]) Cymbalta 60 MG 09/09/2019 12:00:00 AM EDT eCW1 ([facility]) Cymbalta 60 MG 09/09/2019 12:00:00 AM EDT eCW1 ([facility]) Cymbalta 60 MG 09/09/2019 12:00:00 AM EDT eCW1 ([facility]) 24 HR Isosorbide Mononitrate 30 MG Extended Release Or al Tablet 08/23/2019 12:00:00 AM EDT [facility] - 08/09/2019 12:00:00 AM EDT eCW1 ([facility]) [facility] - 08/09/2019 12:00:00 AM EDT eCW1 ([facility]) [facility] - 08/09/2019 12:00:00 AM EDT eCW1 ([facility]) [facility] - 08/09/2019 12:00:00 AM EDT eCW1 ([facility]) [facility] - 08/09/2019 12:00:00 AM EDT eCW1 ([facility]) [facility] - 08/09/2019 12:00:00 AM EDT eCW1 [facility]) [facility] 12:00:00 AM EDT eCW1 [facility]) [facility] 08/[facility] 12:00:00 AM EDT eCW1 ([facility]) [facility] 08/[facility]/2019 12:00:00 AM EDT eCW1 ([facility]) [facility] 08/09/2019 12:00:00 AM EDT eCW1 ([facility]) [facility] - 08/09/2019 12:00:00 AM EDT eCW1 ([facility]) 200 ACTUAT Albuterol 0.09 MG/ACTUAT Metered Dose Inhal er [ProAir] 08/07/2019 12:00:00 AM EDT eCW1 ([facility]) BD AutoShield Duo 30G X 5 MM 08/07/2019 12:00:00 AM EDT eCW1 ([facility]) BD AutoShield Duo 30G X 5 MM 08/07/2019 12:00:00 AM EDT eCW1 ([facility]) BD AutoShield Duo 30G X 5 MM 08/07/2019 12:00:00 AM EDT eCW1 ([facility]) BD AutoShield Duo 30G X 5 MM 08/07/2019 12:00:00 AM EDT eCW1 ([facility]) valsartan 80 MG Oral Tablet 08/07/2019 12:00:00 AM EDT eCW1 ([facility]) 200 ACTUAT Albuterol 0.09 MG/ACTUAT Metered Dose Inhal er [ProAir] 08/07/2019 12:00:00 AM EDT eCW1 ([facility]) BD AutoShield Duo 30G X 5 MM 08/07/2019 12:00:00 AM EDT eCW1 ([facility]) valsartan 80 MG Oral Tablet 08/07/2019 12:00:00 AM EDT eCW1 ([facility]) 200 ACTUAT Albuterol 0.09 MG/ACTUAT Metered Dose Inhal er [ProAir] 08/07/2019 12:00:00 AM EDT eCW1 ([facility]) BD AutoShield Duo 30G X 5 MM 08/07/2019 12:00:00 AM EDT eCW1 ([facility]) valsartan 80 MG Oral Tablet 08/07/2019 12:00:00 AM EDT eCW1 ([facility]) 200 ACTUAT Albuterol 0.09 MG/ACTUAT Metered Dose Inhal er [ProAir] 08/07/2019 12:00:00 AM EDT eCW1 ([facility]) BD AutoShield Duo 30G X 5 MM 08/07/2019 12:00:00 AM EDT eCW1 ([facility]) 200 ACTUAT Albuterol 0.09 MG/ACTUAT Metered Dose Inhal er [ProAir] 08/07/2019 12:00:00 AM EDT eCW1 ([facility]) BD AutoShield Duo 30G X 5 MM 08/07/2019 12:00:00 AM EDT eCW1 ([facility]) valsartan 80 MG Oral Tablet 08/07/2019 12:00:00 AM EDT eCW1 ([facility]) 200 ACTUAT Albuterol 0.09 MG/ACTUAT Metered Dose Inhal er [ProAir] 08/07/2019 12:00:00 AM EDT eCW1 ([facility]) BD AutoShield Duo 30G X 5 MM 08/07/2019 12:00:00 AM EDT eCW1 ([facility]) valsartan 80 MG Oral Tablet 08/07/2019 12:00:00 AM EDT eCW1 ([facility]) 200 ACTUAT Albuterol 0.09 MG/ACTUAT Metered Dose Inhal er [ProAir] 08/07/2019 12:00:00 AM EDT eCW1 ([facility]) 200 ACTUAT Albuterol 0.09 MG/ACTUAT Metered Dose Inhal er [ProAir] 08/07/2019 12:00:00 AM EDT eCW1 ([facility]) valsartan 80 MG Oral Tablet 08/07/2019 12:00:00 AM EDT eCW1 ([facility]) 200 ACTUAT Albuterol 0.09 MG/ACTUAT Metered Dose Inhal er [ProAir] 08/07/2019 12:00:00 AM EDT eCW1 ([facility]) BD AutoShield Duo 30G X 5 MM 08/07/2019 12:00:00 AM EDT eCW1 ([facility]) valsartan 80 MG Oral Tablet 08/07/2019 12:00:00 AM EDT eCW1 ([facility]) valsartan 80 MG Oral Tablet 08/07/2019 12:00:00 AM EDT eCW1 ([facility]) 200 ACTUAT Albuterol 0.09 MG/ACTUAT Metered Dose Inhal er [ProAir] 08/07/2019 12:00:00 AM EDT eCW1 ([facility]) BD AutoShield Duo 30G X 5 MM 08/07/2019 12:00:00 AM EDT eCW1 ([facility]) 200 ACTUAT Albuterol 0.09 MG/ACTUAT Metered Dose Inhal er [ProAir] 08/07/2019 12:00:00 AM EDT eCW1 ([facility]) valsartan 80 MG Oral Tablet 08/07/2019 12:00:00 AM EDT eCW1 ([facility]) BD AutoShield Duo 30G X 5 MM 08/07/2019 12:00:00 AM EDT eCW1 ([facility]) 200 ACTUAT Albuterol 0.09 MG/ACTUAT Metered Dose Inhal er [ProAir] 08/07/2019 12:00:00 AM EDT eCW1 ([facility]) valsartan 80 MG Oral Tablet 08/07/2019 12:00:00 AM EDT eCW1 ([facility]) BD AutoShield Duo 30G X 5 MM 08/07/2019 12:00:00 AM EDT eCW1 ([facility]) valsartan 80 MG Oral Tablet 08/07/2019 12:00:00 AM EDT eCW1 ([facility]) [facility] - 07/30/2019 12:00:00 AM EDT e CW1 ([facility]) [facility] - 07/30/2019 12:00:00 AM EDT e CW1 ([facility]) [facility] - 07/30/2019 12:00:00 AM EDT e CW1 ([facility]) [facility] - 07/30/2019 12:00:00 AM EDT e CW1 ([facility]) [facility] - 07/30/2019 12:00:00 AM EDT e CW1 ([facility]) [facility] - 07/30/2019 12:00:00 AM EDT e CW1 ([facility]) [facility] - 07/30/2019 12:00:00 AM EDT e CW1 ([facility]) [facility] - 07/30/2019 12:00:00 AM EDT e CW1 ([facility]) [facility] - 07/30/2019 12:00:00 AM EDT e CW1 ([facility]) [facility] - 07/30/2019 12:00:00 AM EDT e CW1 ([facility]) [facility] - 07/30/2019 12:00:00 AM EDT e CW1 ([facility]) [facility] - 07/18/2019 12:00:00 AM EDT e CW1 ([facility]) May Have - 07/16/2019 12:00:00 AM EDT e CW1 ([facility]) May Have - 07/16/2019 12:00:00 AM EDT e CW1 ([facility]) May Have - 07/16/2019 12:00:00 AM EDT e CW1 ([facility]) May Have - 07/16/2019 12:00:00 AM EDT e CW1 ([facility]) May Have - 07/16/2019 12:00:00 AM EDT e CW1 ([facility]) pregabalin 150 MG Oral Capsule [Lyrica] 07/16/2019 12:00:00 AM EDT eCW1 ([facility]) May Have - 07/16/2019 12:00:00 AM EDT e CW1 ([facility]) May Have - 07/16/2019 12:00:00 AM EDT e CW1 ([facility]) May Have - 07/16/2019 12:00:00 AM EDT e CW1 ([facility]) pregabalin 150 MG Oral Capsule [Lyrica] 07/16/2019 12:00:00 AM EDT eCW1 ([facility]) May Have - 07/16/2019 12:00:00 AM EDT e CW1 ([facility]) May Have - 07/16/2019 12:00:00 AM EDT e CW1 ([facility]) pregabalin 150 MG Oral Capsule [Lyrica] 07/16/2019 12:00:00 AM EDT eCW1 ([facility]) May Have - 07/16/2019 12:00:00 AM EDT e CW1 ([facility]) pregabalin 150 MG Oral Capsule [Lyrica] 07/16/2019 12:00:00 AM EDT eCW1 ([facility]) pregabalin 150 MG Oral Capsule [Lyrica] 07/16/2019 12:00:00 AM EDT eCW1 ([facility]) pregabalin 150 MG Oral Capsule [Lyrica] 07/16/2019 12:00:00 AM EDT eCW1 ([facility]) 8 HR Acetaminophen 650 MG Extended Release Oral Tablet [Tylenol] 07/04/2019 12:00:00 AM EDT eCW1 ([facility]) 8 HR Acetaminophen 650 MG Extended Release Oral Tablet [Tylenol] 07/04/2019 12:00:00 AM EDT eCW1 ([facility]) 8 HR Acetaminophen 650 MG Extended Release Oral Tablet [Tylenol] 07/04/2019 12:00:00 AM EDT eCW1 ([facility]) 8 HR Acetaminophen 650 MG Extended Release Oral Tablet [Tylenol] 07/04/2019 12:00:00 AM EDT eCW1 ([facility]) 8 HR Acetaminophen 650 MG Extended Release Oral Tablet [Tylenol] 07/04/2019 12:00:00 AM EDT eCW1 ([facility]) 8 HR Acetaminophen 650 MG Extended Release Oral Tablet [Tylenol] 07/04/2019 12:00:00 AM EDT eCW1 ([facility]) 8 HR Acetaminophen 650 MG Extended Release Oral Tablet [Tylenol] 07/04/2019 12:00:00 AM EDT eCW1 ([facility]) 8 HR Acetaminophen 650 MG Extended Release Oral Tablet [Tylenol] 07/04/2019 12:00:00 AM EDT eCW1 ([facility]) 8 HR Acetaminophen 650 MG Extended Release Oral Tablet [Tylenol] 07/04/2019 12:00:00 AM EDT eCW1 ([facility]) 8 HR Acetaminophen 650 MG Extended Release Oral Tablet [Tylenol] 07/04/2019 12:00:00 AM EDT eCW1 ([facility]) 8 HR Acetaminophen 650 MG Extended Release Oral Tablet [Tylenol] 07/04/2019 12:00:00 AM EDT eCW1 ([facility]) 8 HR Acetaminophen 650 MG Extended Release Oral Tablet [Tylenol] 07/04/2019 12:00:00 AM EDT eCW1 ([facility]) 8 HR Acetaminophen 650 MG Extended Release Oral Tablet [Tylenol] 07/04/2019 12:00:00 AM EDT eCW1 ([facility]) 8 HR Acetaminophen 650 MG Extended Release Oral Tablet [Tylenol] 07/04/2019 12:00:00 AM EDT eCW1 ([facility]) 8 HR Acetaminophen 650 MG Extended Release Oral Tablet [Tylenol] 07/04/2019 12:00:00 AM EDT eCW1 ([facility]) 8 HR Acetaminophen 650 MG Extended Release Oral Tablet [Tylenol] 07/04/2019 12:00:00 AM EDT eCW1 ([facility]) 8 HR Acetaminophen 650 MG Extended Release Oral Tablet [Tylenol] 07/04/2019 12:00:00 AM EDT eCW1 ([facility]) 8 HR Acetaminophen 650 MG Extended Release Oral Tablet [Tylenol] 07/04/2019 12:00:00 AM EDT eCW1 ([facility]) 8 HR Acetaminophen 650 MG Extended Release Oral Tablet [Tylenol] 07/04/2019 12:00:00 AM EDT eCW1 ([facility]) 8 HR Acetaminophen 650 MG Extended Release Oral Tablet [Tylenol] 07/04/2019 12:00:00 AM EDT eCW1 ([facility]) 8 HR Acetaminophen 650 MG Extended Release Oral Tablet [Tylenol] 07/04/2019 12:00:00 AM EDT eCW1 ([facility]) 8 HR Acetaminophen 650 MG Extended Release Oral Tablet [Tylenol] 07/04/2019 12:00:00 AM EDT eCW1 ([facility]) 8 HR Acetaminophen 650 MG Extended Release Oral Tablet [Tylenol] 07/04/2019 12:00:00 AM EDT eCW1 ([facility]) 8 HR Acetaminophen 650 MG Extended Release Oral Tablet [Tylenol] 07/04/2019 12:00:00 AM EDT eCW1 ([facility]) 8 HR Acetaminophen 650 MG Extended Release Oral Tablet [Tylenol] 07/04/2019 12:00:00 AM EDT eCW1 ([facility]) 8 HR Acetaminophen 650 MG Extended Release Oral Tablet [Tylenol] 07/04/2019 12:00:00 AM EDT eCW1 ([facility]) 8 HR Acetaminophen 650 MG Extended Release Oral Tablet [Tylenol] 07/04/2019 12:00:00 AM EDT eCW1 ([facility]) 8 HR Acetaminophen 650 MG Extended Release Oral Tablet [Tylenol] 07/04/2019 12:00:00 AM EDT eCW1 ([facility]) 8 HR Acetaminophen 650 MG Extended Release Oral Tablet [Tylenol] 07/04/2019 12:00:00 AM EDT eCW1 ([facility]) 8 HR Acetaminophen 650 MG Extended Release Oral Tablet [Tylenol] 07/04/2019 12:00:00 AM EDT eCW1 ([facility]) 8 HR Acetaminophen 650 MG Extended Release Oral Tablet [Tylenol] 07/04/2019 12:00:00 AM EDT eCW1 ([facility]) May Have - 06/11/2019 12:00:00 AM EDT e CW1 ([facility]) Metoprolol Tartrate 50 MG Oral Tablet 08/22/2016 12:00:00 AM EDT [facility] 60 ACTUAT Fluticasone propionate 0.5 MG/ ACTUAT / salmeterol 0.05 MG/ACTUAT Dry Powder Inhaler [Advair] 08/22/2016 12:00:00 AM EDT [facility] Simvastatin 40 MG Oral Tablet 08/22/2016 12:00:00 AM EDT [facility] insulin human, isophane 70 UNT/ML / Regu lar Insulin, Human 30 UNT/ML Injectable Suspension 06/14/2016 12:00:00 AM EDT [facility] Lidocaine 0.05 MG/MG Topical Ointment 05/27/2016 12:00:00 AM EDT [facility] terbinafine 250 MG Oral Tablet 05/26/2016 12:00:00 AM EDT [facility] Trazodone Hydrochloride 50 MG Oral Tablet 03/21/2016 12:00:00 AM ES T [facility] Metformin hydrochloride 1000 MG Oral Tablet 02/12/2016 12:00:00 AM EST [facility] Lisinopril 40 MG Oral Tablet 02/12/2016 12:00:00 AM EST [facility] INSULIN SYRINGE .5CC/28G 28G X 1/2" 0.5 ML MISC 12/17/2015 12:00:00 AM EDT [facility] Ergocalciferol 70585 UNT Oral Capsule 11/18/2015 12:00:00 AM EDT [facility] 24 HR Isosorbide Mononitrate 30 MG Extended Release Oral Tablet [facility] clopidogrel 75 MG Oral Tablet [facility]
--- NOTE | 2020-05-06 18:47 | REPVR ---
PROCEDURE INFORMATION: Exam: CT Chest Without Contrast; Diagnostic Exam date and time: 05/06/2020 6:12 PM Age: 69 years old Clinical indication: Chest pain; Additional info: SOB , ? pericardial efussion TECHNIQUE: Imaging protocol: Diagnostic computed tomography of the chest without contrast. 3D rendering (Not supervised by radiologist): MIP and/or 3D reconstructed images were created by the technologist. Radiation optimization: All CT scans at this facility use at least one of these dose optimization techniques: automated exposure control; mA and/or kV adjustment per patient size (includes targeted exams where dose is matched to clinical indication); or iterative reconstruction. COMPARISON: CT ANGIO CHEST 04/22/2020 1:21 PM FINDINGS: Thyroid: 2.5 cm low-density lesion in left lobe of the thyroid inferiorly. Lungs: Paraseptal type emphysema present at the lung apices. Vague 9 mm ground-glass opacity right lower lobe (series 201, image 71). Small somewhat nodular ground-glass opacities present in the left upper lobe with anteriorly. Scattered thickening interlobular septa. 9 mm subpleural area of atelectasis consolidation noted in the left upper lobe (series 203, image 87). Pleural spaces: Unremarkable. No pneumothorax. No pleural effusion. Heart: Unremarkable. No cardiomegaly. No pericardial effusion. Aorta: Unremarkable. No aortic aneurysm. Lymph nodes: Unremarkable. No enlarged lymph nodes. Liver: The liver is low in density. Stomach: Small sliding hiatal hernia. Bones/joints: Unremarkable. No acute fracture. Soft tissues: Unremarkable. IMPRESSION: 1. No evidence of pericardial effusion. 2. Several new small somewhat nodular ground-glass opacities bilaterally. This suggests an evolving pneumonitis. 3. Small sliding hiatal hernia. 4. Hepatic steatosis. 5. 2.5 cm thyroid nodule.Recommend follow-up thyroid ultrasound. COMMENTS: Consistent with the [employer]'s Incidental Findings Committee white paper (J Am Mayda Radiol 2015): In patients aged 35 years and older with an incidental thyroid nodule equal to or greater than 1.[address], MRI or extrathyroidal US, further evaluation with dedicated thyroid US is recommended for patients with normal life expectancy and without comorbidities. For smaller nodules without suspicious features, no further evaluation or follow up is recommended. Electronically signed by: Gail Castro On 05/06/2020 18:48:18 PM
[2020-05-06 20:50] VITALS: BP 133/60
[2020-05-06] MEDS ORDERED: LEVEMIR (INSULIN DETEMIR) 1 UNITS/0.01ML SC SCH (21:00)
[2020-05-06] MEDS: ACETAMINOPHEN 650MG ER TAB (TYLENOL ARTHRITIS) PO SCH (21:00)
[2020-05-06] MEDS ORDERED: DULoxetine 30 MG CAP (CYMBALTA) PO SCH (21:00)
[2020-05-06] MEDS: FUROSEMIDE 40MG/4ML VIAL (J1940) IV SCH (21:38)
[2020-05-06] MEDS: APIXABAN 5 MG TAB (ELIQUIS) PO SCH (21:38)
[2020-05-06] MEDS: LOSARTAN 50MG TABLET PO SCH (21:38)
[2020-05-06] MEDS: PREGABALIN 75 MG CAP(LYRICA) PO SCH (21:39)
[2020-05-06] MEDS: HumaLOG INSULIN (NovoLOG) PER UNIT SC SCH (21:41)
--- NOTE | 2020-05-06 21:52 | HPEPDOC ---
General Date of Admission 05/06/20 Date of Service: May 06, 2020 Chief Complaint The patient is a 69-year-old female admitted with a reason for visit of Diff Breathing. Source: Patient, RN/MD History of Present Illness 69 year old female with multiple medical comorbidities from [facility] was sent to the ED from Dr Lovelace's office for massive gain in weight (28lbs), SOB, fatigue, tiredness and increased somnolence. Patient reports that she has not been feeling well for several weeks, she has been tired, sleeping most of the day, no energy to get out of bed and do her daily activities, getting easily winded with minor activities. She reports that her SOB worsens with exertion. She has been steadily gaining weight though does not feel bloated. She has been complaint with her medications and the use of her CPAP. She denies any cough or fever. Denies any abdominal pain, nausea or vomiting. Denies any chest pain. She was admitted for acute on chronic CHF most likely diastolic and right sided CHF exacerbation. Home Medications Scheduled Acetaminophen (Acetaminophen ER) 650 Mg Tablet.er, 650 MG PO BID, (Reported) Amlodipine Besylate (Amlodipine Besylate) 5 Mg Tablet, 5 MG PO DAILY, (Reported) Ammonium Lactate (Ammonium Lactate) 12% Cream..g., 1 APLCT TOP QAM, (Reported) APPLY TO FEET PRIOR TO ARIK STOCKINGS Apixaban (Eliquis) 5 Mg Tablet, 5 MG PO BID, (Reported) Chlorthalidone (Chlorthalidone) 25 Mg Tablet, 25 MG PO DAILY, (Reported) Cholecalciferol (Vitamin D3) (Vitamin D3) 1,000 Unit Tablet, 2,000 UNITS PO DAILY, (Reported) TAKES AT NOON Diclofenac Sodium (Voltaren) 100 Gm Gel..gram., 4 GM TOP TID, (Reported) APPLY TO HANDS Duloxetine Hcl (Cymbalta) 60 Mg Capsule.dr, 60 MG PO BID, (Reported) Fluticasone Propionate (Fluticasone Propionate) 50 Mcg/Act Spr, 2 SPRAY NARES DAILY, (Reported) Icosapent Ethyl (Vascepa) 1 Gm Capsule, 2 GM PO BID, (Reported) 0800/1700 Insulin Aspart (Novolog Flexpen) 100 Unit/1 Ml Insuln.pen, 1 DOSE SC QPM, (Reported) PATIENT SPECIFIC SLIDING SCALE : 151-200=20U, 201-250=22U, 251-300=24U, 301- 350=26U, 351-400=28U, 401-450=30U, >450=32U Insulin Aspart (Novolog Flexpen) 100 Unit/1 Ml Insuln.pen, 1 DOSE SC BID, (Reported) 0800, 1200, PATIENT SPECIFIC SLIDING SCALE: 151-200=24U, 201-250=27U, 251- 300=30U, 301-350=33U, 351-400=36U, 401-450=39U, >450=42U Insulin Glargine,Hum.rec.anlog (Lantus Solostar) 100 Unit/1 Ml Insuln.pen, 40 UNITS QHS, (Reported) Insulin Glargine,Hum.rec.anlog (Lantus Solostar) 100 Unit/1 Ml Insuln.pen, 74 UNITS SC QAM, (Reported) Liraglutide (Victoza 2-Anhtony) 0.6 Mg/0.1 Ml Pen.injctr, 1.2 MG SC QPM, (Reported) 1600 - PATIENT SELF ADMINISTERS Losartan Potassium (Losartan Potassium) 50 Mg Tablet, 50 MG PO QHS, (Reported) Multivitamin,Therapeutic (Thera-Tabs) 1 Each Tablet, 1 TAB PO DAILY, (Reported) Omeprazole (Omeprazole) 40 Mg Capsule.dr, 40 MG PO DAILY, (Reported) Potassium Chloride (Potassium Chloride) 20 Meq Tablet.er, 20 MEQ PO DAILY, (Reported) Pregabalin (Pregabalin) 300 Mg Capsule, 300 MG PO BID, (Reported) Salmeterol/Fluticasone (Advair 100-50 Diskus) 1 Each Blst.w.dev, 1 PUFF INH BID, (Reported) Scheduled PRN Acetaminophen (Acetaminophen) 325 Mg Tablet, 650 MG PO Q4H PRN for PAIN, (Reported) Albuterol Sulf (Albuterol Sulfate) 2.5 Mg/3 Ml Vial.neb, 2.5 MG INH Q4H PRN for SHORTNESS OF BREATH, (Reported) Albuterol Sulfate (Proair Hfa) 8.5 Gm Hfa.aer.ad, 2 PUFF INH Q4H PRN for SHORTNESS OF BREATH, (Reported) Hydrocodone/Acetaminophen (Hydrocodone-Acetamin 5-325 mg) 1 Each Tablet, 1 TAB PO Q6H PRN for PAIN, (Reported) MDD 4 Magnesium Hydroxide (Milk of Magnesia) 400 Mg/5 Ml Oral.susp, 10 MG PO DAILY PRN for CONSTIPATION, (Reported) Allergies Coded Allergies: TAPE (Verified Allergy, Intermediate, NYLON TAPE CAUSES HIVES PER 09/09/03, 05/02/19) latex (Verified Allergy, Mild, RASH, 05/05/20) ibuprofen (Verified Adverse Reaction, Intermediate, BLEEDING, CONSTIPATION, 05/02/19) metoprolol (Verified Adverse Reaction, Intermediate, LOWERS BLOOD PRESSURE TOO MUCH, 05/02/19) LOWERS BLOOD PRESSURE TOO MUCH Quinolones (Verified Adverse Reaction, Mild, DIZZINESS, 05/02/19) morphine (Verified Adverse Reaction, Mild, ITCHING, 05/05/20) Past Medical History Medical History MORBID OBESITY BERYL on CPAP H/O. DVT, BILAT. PE T2DM on Insulin COPD PULMONARY HYPERTENSION with Right heart failure. RESTLESS LEG HTN CKD stage 3 GERD DEPRESSION/ANXIETY HYPERLIPIDEMIA ALLERGIC RHINITIS OA OF KNEES, WRISTS VITAMIN D DEFICIENCY NEUROPATHY Chronic Back Pain s/p back surgery in 1970s. Surgical History two back surgeries, right arm fatty tumor removal, partial hysterectomy, right rib removal due to cancer. Family History FATHER: , COLON CANCER MOTHER: , RHEUMATOID MATERNAL GRAND FATHER: DIAGNOSED WITH UNSPECIFIED HEART DISEASE MATERNAL AUNTS- RHEUMATOID. Social History * Smoker: former Smoker A-FIB/CHADSVASC A-FIB History Current/History of A-Fib/PAF?: Yes Current PO Anticoag Therapy: Yes Review of Systems Constitutional: Reports: Weakness, Fatigue, Lethargy; Denies: Chills, Fever, Night Sweats Eyes: Denies: Pain, Vision change ENT: Denies: Head Aches, Ear Pain, Dysphagia Skin: Denies: Rash, Lesions, Breakdown Pulmonary: Reports: Dyspnea Cardiovascular: Reports: Orthopnea, Edema; Denies: Chest Pain, Palpitations, Paroxysmal Noc. Dyspnea, Lt Headedness Gastrointestinal: Denies: Nausea, Vomiting, Abdominal Pain, Diarrhea Genitourinary: Denies: Dysuria, Frequency, Incontinence, Retention Physical Examination General Exam: Positive: Alert, Cooperative, No Acute Distress Eye Exam: Positive: PERRLA, Conjunctiva & lids normal, EOMI; Negative: Sclera icteric ENT Exam: Positive: Atraumatic, Mucous membr. moist/pink, Pharynx Normal Neck Exam: Positive: Supple, JVD; Negative: thyromegaly Chest Exam: Positive: Clear to auscultation, Normal air movement, Diminished Heart Exam: Positive: Rate Normal, Regular Rhythm, Normal S1, Normal S2; Negative: Murmurs, Rubs Abdomen Exam: Positive: Normal bowel sounds, Soft; Negative: Tenderness Extremity Exam: Positive: Edema, Normal pulses; Negative: Clubbing, Cyanosis Vital Signs Vital Signs Date Time Temp Pulse Resp B/P (MAP) Pulse Ox O2 Delivery O2 Flow Rate FiO2 05/06/20 15:57 98.1 05/06/20 14:37 65 24 114/58 96 Room Air Laboratory Data Labs 24H Laboratory Tests 2 05/06/20 15:45: Immature Granulocyte % (Auto) 0.3, Neutrophils (%) (Auto) 56.4, Lymphocytes (%) (Auto) 31.0, Monocytes (%) (Auto) 9.8H, Eosinophils (%) (Auto) 1.9, Basophils (%) (Auto) 0.6, Neutrophils # (Auto) 3.9, Lymphocytes # (Auto) 2.1, Monocytes # (Auto) 0.7, Eosinophils # (Auto) 0.1, Basophils # (Auto) 0.0, Nucleated Red Blood Cells % (auto) 0.0, Anion Gap 5L, Glomerular Filtration Rate 40.5L, Lactic Acid Level 1.3, Calcium Level 8.9, Total Bilirubin 0.2, Direct Bilirubin < 0.1, Aspartate Amino Transf (AST/SGOT) 37, Alanine Aminotransferase (ALT/SGPT) 78, Alkaline Phosphatase 118H, Total Creatine Kinase 251H, Creatine Kinase MB 3.6, Creatine Kinase MB Relative Index 1.43, Troponin I < 0.02, NE-Cld-O-Type Natriuretic Peptide 553H, Total Protein 6.2L, Albumin 3.4, Albumin/Globulin Ratio 1.2 CBC/BMP Laboratory Tests 05/06/20 15:45 Microbiology Microbiology 05/06/20 Respiratory Virus Panel (PCR) ([facility]), Received Pending Assessment/Plan 69 year old female with multiple medical comorbidities from [facility] was sent to the ED from Dr Lovelace's office for massive gain in weight (28lbs), SOB, fatigue, tiredness and increased somnolence. Patient reports that she has not been feeling well for several weeks, she has been tired, sleeping most of the day, no energy to get out of bed and do her daily activities, getting easily winded with minor activities. She reports that her SOB worsens with exertion. She has been steadily gaining weight though does not feel bloated. She has been complaint with her medications and the use of her CPAP. She denies any cough or fever. Denies any abdominal pain, nausea or vomiting. Denies any chest pain. She was admitted for acute on chronic CHF most likely diastolic and right sided CHF exacerbation. CHF exacerbation most likely Diastolic and right heart failure Last echo in apr 2019 normal EF, grade 1 diastolic dysfunction, could not see pulmonary arteries well. will get new echo fluid restriction 1.8 liters, daily weight and intake and output Lasix IV. DM with neuropathy continue levemir and lispro, lyrica COPD advair and albuterol BERYL/ Morbid obesity May use own CPAP Pulmonary hypertension and right heart failure lasix H/O. DVT, BILAT. PE Eliquis RESTLESS LEG HTN losartan CKD stage 3 creatinine at baseline GERD PPI DEPRESSION/ANXIETY cymbalta HYPERLIPIDEMIA statin Plan / VTE VTE Prophylaxis Ordered?: Yes LYN PITTMAN MD May 06, 2020 17:09
[2020-05-06] MEDS: ADVAIR HFA 45/21MCG INHALER INH SCH (23:00)
[2020-05-07] VITALS: BP 134/63
[2020-05-07] MEDS: FUROSEMIDE 40MG/4ML VIAL (J1940) IV SCH ×5 (00:59→16:00)
[2020-05-07 04:00] VITALS: BP 138/63
[2020-05-07 05:53] LABS: BASO # 0.1 10^3/uL (0.0-0.2); BASO % 0.9 % (0.0-1.0); EOS # 0.1 10^3/uL (0.0-0.5); EOS % 2.5 % (0.0-3.0); HEMATOCRIT 36.4 % (36.0-47.0); HEMOGLOBIN 11.9 g/dl (12.0-15.5); LYMPH # 1.9 10^3/uL (1.5-5.0); LYMPH % 33.7 % (24.0-44.0); MEAN CORPUSCULAR HEMOGLOBIN 28.3 pg (27.0-33.0); MEAN CORPUSCULAR HGB CONC 32.7 g/dl (32.0-36.5); MEAN CORPUSCULAR VOLUME 86.5 fl (80.0-96.0); MONO # 0.6 10^3/uL (0.0-0.8); NEUTROPHILS # 2.9 10^3/uL (1.5-8.5); NEUTROPHILS % 51.5 % (36.0-66.0); PLATELET COUNT, AUTOMATED 222 10^3/uL (150-450); RED BLOOD COUNT 4.21 10^6/uL (4.00-5.40); WHITE BLOOD COUNT 5.6 10^3/uL (4.0-10.0)
[2020-05-07 06:27] LABS: CALCIUM LEVEL 9.1 MG/DL (8.8-10.2); CREATININE FOR GFR 1.35 MG/DL (0.55-1.30); GLOMERULAR FILTRATION RATE 41.5 (>45); MAGNESIUM LEVEL 1.4 MG/DL (1.8-2.4); POTASSIUM SERUM 2.9 MEQ/L (3.5-5.1)
[2020-05-07] MEDS ORDERED: POTASSIUM CHLORIDE 10 MEQ SR TABLET PO ONE ×3 (06:50→17:10)
[2020-05-07 07:14] VITALS: BP 143/64
[2020-05-07] MEDS: ADVAIR HFA 45/21MCG INHALER INH SCH ×2 (07:30→20:12)
--- NOTE | 2020-05-07 08:36 | IPNPDOC ---
Subjective Date Seen The patient was seen on 05/07/20. Subjective Chief Complaint/HPI reports still very tired and sleeping always. does not have energy to do anuthing . This has been going on for 3 weeks. SHe did have good response to lasix with a negative of 3150 cc since last evening. Objective Physical Examination General Exam: Positive: Alert, Cooperative, No Acute Distress Eye Exam: Positive: PERRLA, Conjunctiva & lids normal, EOMI; Negative: Sclera icteric ENT Exam: Positive: Atraumatic, Mucous membr. moist/pink, Pharynx Normal Neck Exam: Positive: Supple, JVD; Negative: thyromegaly Chest Exam: Positive: Clear to auscultation, Normal air movement, Diminished Heart Exam: Positive: Rate Normal, Regular Rhythm, Normal S1, Normal S2; Negative: Murmurs, Rubs Abdomen Exam: Positive: Normal bowel sounds, Soft; Negative: Tenderness Extremity Exam: Positive: Edema, Normal pulses; Negative: Clubbing, Cyanosis Assessment /Plan Assessment 69 year old female with multiple medical comorbidities from [facility] was sent to the ED from Dr Lovelace's office for massive gain in weight (28lbs), SOB, fatigue, tiredness and increased somnolence. Patient reports that she has not been fe eling well for several weeks, she has been tired, sleeping most of the day, no energy to get out of bed and do her daily activities, getting easily winded with minor activities. She reports that her SOB worsens with exertion. She has been steadily gaining weight though does not feel bloated. She has been complaint with her medications and the use of her CPAP. She denies any cough or fever. Denies any abdominal pain, nausea or vomiting. Denies any chest pain. She was admitted for acute on chronic CHF most likely diastolic and right sided CHF exacerbation. CHF exacerbation most likely Diastolic and right heart failure Last echo in apr 2019 normal EF, grade 1 diastolic dysfunction, could not see pulmonary arteries well. will get new echo fluid restriction 1.8 liters, daily weight and intake and output Lasix IV. DM with neuropathy continue levemir and lispro, lyrica, norco. COPD advair and albuterol BERYL/ Morbid obesity May use own CPAP Pulmonary hypertension and right heart failure lasix H/O. DVT, BILAT. PE Eliquis RESTLESS LEG on norco HTN losartan CKD stage 3 creatinine at baseline GERD PPI DEPRESSION/ANXIETY cymbalta will reduce dose, very sleepy. HYPERLIPIDEMIA statin Plan/VTE VTE Prophylaxis Ordered?: Yes VS, I&O, 24H, Fishbone Vital Signs/I&O Vital Signs Date Time Temp Pulse Resp B/P (MAP) Pulse Ox O2 Delivery O2 Flow Rate FiO2 05/07/20 07:14 97.5 67 20 143/64 (90) 93 Room Air I&O- Last 24 Hours up to 6 AM 05/07/20 06:00 Intake Total 600 ml Output Total 2600 ml Balance -2000 ml Laboratory Data 24H LABS Laboratory Tests 2 05/06/20 15:45: Immature Granulocyte % (Auto) 0.3, Neutrophils (%) (Auto) 56.4, Lymphocytes (%) (Auto) 31.0, Monocytes (%) (Auto) 9.8H, Eosinophils (%) (Auto) 1.9, Basophils (%) (Auto) 0.6, Neutrophils # (Auto) 3.9, Lymphocytes # (Auto) 2.1, Monocytes # (Auto) 0.7, Eosinophils # (Auto) 0.1, Basophils # (Auto) 0.0, Nucleated Red Blood Cells % (auto) 0.0, Anion Gap 5L, Glomerular Filtration Rate 40.5L, Lactic Acid Level 1.3, Calcium Level 8.9, Total Bilirubin 0.2, Direct Bilirubin < 0.1, Aspartate Amino Transf (AST/SGOT) 37, Alanine Aminotransferase (ALT/SGPT) 78, Alkaline Phosphatase 118H, Total Creatine Kinase 251H, Creatine Kinase MB 3.6, Creatine Kinase MB Relative Index 1.43, Troponin I < 0.02, VM-Qxx-E-Type Natriuretic Peptide 553H, Total Protein 6.2L, Albumin 3.4, Albumin/Globulin Ratio 1.2, Thyroid Stimulating Hormone (TSH) 1.880 05/06/20 20:56: Bedside Glucose (Misc Panel) 256H 05/07/20 05:21: Immature Granulocyte % (Auto) 0.4, Neutrophils (%) (Auto) 51.5, Lymphocytes (%) (Auto) 33.7, Monocytes (%) (Auto) 11.0H, Eosinophils (%) (Auto) 2.5, Basophils (%) (Auto) 0.9, Neutrophils # (Auto) 2.9, Lymphocytes # (Auto) 1.9, Monocytes # (Auto) 0.6, Eosinophils # (Auto) 0.1, Basophils # (Auto) 0.1, Nucleated Red Blood Cells % (auto) 0.0, Anion Gap 7L, Glomerular Filtration Rate 41.5L, Calcium Level 9.1, Magnesium Level 1.4L CBC/BMP Laboratory Tests 05/06/20 15:45 05/07/20 05:21 Microbiology Microbiology 05/06/20 Respiratory Virus Panel (PCR) ([facility]) - Final, Complete LYN PITTMAN MD May 07, 2020 08:36
[2020-05-07] MEDS: HumaLOG INSULIN (NovoLOG) PER UNIT SC SCH ×4 (08:54→21:12)
[2020-05-07] MEDS: ACETAMINOPHEN 650MG ER TAB (TYLENOL ARTHRITIS) PO SCH ×2 (08:55→21:00)
[2020-05-07] MEDS: OMEPRAZOLE 20 MG CAP PO SCH (08:56)
[2020-05-07] MEDS: PREGABALIN 75 MG CAP(LYRICA) PO SCH ×2 (08:57→21:09)
[2020-05-07] MEDS: APIXABAN 5 MG TAB (ELIQUIS) PO SCH ×2 (08:57→21:10)
[2020-05-07] MEDS: DULoxetine 30 MG CAP (CYMBALTA) PO SCH ×2 (08:58→21:10)
[2020-05-07] MEDS ORDERED: LEVEMIR (INSULIN DETEMIR) 1 UNITS/0.01ML SC SCH (09:00)
--- NOTE | 2020-05-07 09:33 | ECGEPIP ---
[facility] - ED Test Date: 2020-05-06 Pat Name: MANJU MILLS Department: Room: - Gender: Female Axle Turner: JERALD : 1950 Requested By: CHERIE ARAMBULA Order Number: [id number] Reading MD: Lucille Dunbar Measurements Intervals [place] Rate: 66 P: 40 AR: 192 QRS: -5 QRSD: 98 T: 40 QT: 412 QTc: 431 Interpretive Statements Normal sinus rhythm Moderate voltage criteria for LVH, may be normal variant ( R in aVL , [place] product ) similar 04/22/20 Electronically Signed on 05-07-2020 9:32:58 EST by Lucille Dunbar
[2020-05-07] MEDS ORDERED: MAG SULF 1GM/100ML (MAG RUN) 1 GM in IV 1 EA IV ONE ×2 (11:00→18:00)
[2020-05-07 11:11] VITALS: BP 123/59
[2020-05-07 11:58] LABS: CK-MB VALUE MASS 2.8 NG/ML (<3.6); CPK CREATINE PHOSPHOKINASE 371 U/L (26-192); MB/CK RELATIVE INDEX 0.75 (< OR =4); TROPONIN I < 0.02 NG/ML (< 0.10)
[2020-05-07 16:12] VITALS: BP 120/58
[2020-05-07 16:37] LABS: BLOOD UREA NITROGEN 25 MG/DL (7-18); CARBON DIOXIDE LEVEL 33 MEQ/L (21-32); CHLORIDE LEVEL 97 MEQ/L (98-107); CK-MB VALUE MASS 2.8 NG/ML (<3.6); CPK CREATINE PHOSPHOKINASE 384 U/L (26-192); CREATININE FOR GFR 1.53 MG/DL (0.55-1.30); GLOMERULAR FILTRATION RATE 35.9 (>45); GLUCOSE, FASTING 342 MG/DL (70-100); MAGNESIUM LEVEL 1.7 MG/DL (1.8-2.4); MB/CK RELATIVE INDEX 0.73 (< OR =4); POTASSIUM SERUM 3.7 MEQ/L (3.5-5.1); SODIUM LEVEL 136 MEQ/L (136-145); TROPONIN I < 0.02 NG/ML (< 0.10)
[2020-05-07 20:00] VITALS: BP 117/53
[2020-05-07] MEDS ORDERED: MORPHINE 10MG/0.5ML ORAL CONCENTRATE SOLUTION U/D SL PRN (21:00)
[2020-05-07] MEDS: LOSARTAN 50MG TABLET PO SCH (21:00)
[2020-05-07] MEDS: LEVEMIR (INSULIN DETEMIR) 1 UNITS/0.01ML SC SCH (21:12)
[2020-05-08] VITALS: BP 135/63
--- NOTE | 2020-05-08 00:56 | ECGEPIP ---
[facility] Test Date: 2020-05-07 Pat Name: MANJU MILLS Department: Room: [place] [address] Gender: Female Strap Buckler: eleno : 1950 Requested By: LYN PITTMAN Order Number: [id number] Reading MD: Alfredo Miles Measurements Intervals [place] Rate: 76 P: 31 CO: 196 QRS: -10 QRSD: 104 T: 35 QT: 408 QTc: 459 Interpretive Statements Normal sinus rhythm Moderate voltage criteria for LVH, may be normal variant ( R in aVL , [place] product ) Last tracing on 05/06/20, 15:22. No remarkable changes Electronically Signed on 05-08-2020 0:55:46 EST by Alfredo Miles
[2020-05-08 04:00] VITALS: BP 154/69
[2020-05-08 04:55] LABS: BASO # 0.1 10^3/uL (0.0-0.2); EOS # 0.1 10^3/uL (0.0-0.5); EOS % 2.4 % (0.0-3.0); LYMPH % 39.5 % (24.0-44.0); MEAN CORPUSCULAR HEMOGLOBIN 27.3 pg (27.0-33.0); MEAN CORPUSCULAR HGB CONC 30.8 g/dl (32.0-36.5); MEAN CORPUSCULAR VOLUME 88.8 fl (80.0-96.0); MONO # 0.6 10^3/uL (0.0-0.8); MONO % 11.7 % (2.0-8.0); NEUTROPHILS # 2.2 10^3/uL (1.5-8.5); NEUTROPHILS % 44.8 % (36.0-66.0); PLATELET COUNT, AUTOMATED 201 10^3/uL (150-450); RED BLOOD COUNT 4.39 10^6/uL (4.00-5.40); WHITE BLOOD COUNT 4.9 10^3/uL (4.0-10.0)
[2020-05-08 05:15] LABS: CALCIUM LEVEL 8.6 MG/DL (8.8-10.2); CREATININE FOR GFR 1.48 MG/DL (0.55-1.30); GLOMERULAR FILTRATION RATE 37.3 (>45); MAGNESIUM LEVEL 1.8 MG/DL (1.8-2.4); POTASSIUM SERUM 3.9 MEQ/L (3.5-5.1)
[2020-05-08] MEDS: ADVAIR HFA 45/21MCG INHALER INH SCH ×2 (07:20→19:54)
[2020-05-08] MEDS: HumaLOG INSULIN (NovoLOG) PER UNIT SC SCH ×4 (07:56→22:31)
[2020-05-08 08:00] VITALS: BP 160/70
[2020-05-08] MEDS: OMEPRAZOLE 20 MG CAP PO SCH (08:50)
[2020-05-08] MEDS: FUROSEMIDE 40MG/4ML VIAL (J1940) IV SCH ×2 (08:50→17:18)
[2020-05-08] MEDS: ACETAMINOPHEN 650MG ER TAB (TYLENOL ARTHRITIS) PO SCH ×2 (08:51→22:29)
[2020-05-08] MEDS: DULoxetine 30 MG CAP (CYMBALTA) PO SCH ×2 (08:51→22:29)
[2020-05-08] MEDS: APIXABAN 5 MG TAB (ELIQUIS) PO SCH ×2 (08:51→22:29)
[2020-05-08] MEDS: PREGABALIN 75 MG CAP(LYRICA) PO SCH ×2 (08:51→22:30)
[2020-05-08] MEDS: LEVEMIR (INSULIN DETEMIR) 1 UNITS/0.01ML SC SCH ×2 (08:51→22:30)
--- NOTE | 2020-05-08 10:42 | IPNPDOC ---
Subjective Date Seen The patient was seen on 05/08/20. Subjective Chief Complaint/HPI Feels better could. Says feels like she has more energy. Patient is no longer somnolent. She was having breakfast and finished her tray. No dizziness of light headedness. No sob or chest pain . Objective Physical Examination General Exam: Positive: Alert, Cooperative, No Acute Distress Eye Exam: Positive: PERRLA, Conjunctiva & lids normal, EOMI; Negative: Sclera icteric ENT Exam: Positive: Atraumatic, Mucous membr. moist/pink, Pharynx Normal Neck Exam: Positive: Supple, JVD; Negative: thyromegaly Chest Exam: Positive: Clear to auscultation, Normal air movement, Diminished Heart Exam: Positive: Rate Normal, Regular Rhythm, Normal S1, Normal S2; Negative: Murmurs, Rubs Abdomen Exam: Positive: Normal bowel sounds, Soft; Negative: Tenderness Extremity Exam: Positive: Edema, Normal pulses; Negative: Clubbing, Cyanosis Assessment /Plan Assessment 69 year old female with multiple medical comorbidities from [facility] was sent to the ED from Dr Lovelace's office for massive gain in weight (28lbs), SOB, fatigue, tiredness and increased somnolence. Patient reports that she has not been feeling well for several weeks, she has been tired, sleeping most of the day, no energy to get out of bed and do her daily activities, getting easily winded with minor activities. She reports that her SOB worsens with exertion. She has been steadily gaining weight though does not feel bloated. She has been complaint with her medications and the use of her CPAP. She denies any cough or fever. Denies any abdominal pain, nausea or vomiting. Denies any chest pain. She was admitted for acute on chronic CHF most likely diastolic and right sided CHF exacerbation. Intermittent sharp central chest pain going to the back on 05/07/20 twice yesterday in morning and afternoon. cardiac enzymes and ekgs negative for acute ischemia She had a cardiac cath as per jadon Lovelace in August 2019 and had clean coronaries Likely musculoskeletal , Could also be due to pulmonary hypertension/ acid reflux. No further chest pain today CHF exacerbation most likely Diastolic and right heart failure She has corpulmonale as per Dr Lovelace who reviewed her new echo and CT chest. fluid restriction 1.8 liters, daily weight and intake and output Lasix IV. DM with neuropathy continue levemir and lispro, lyrica, norco. COPD advair and albuterol BERYL/ Morbid obesity/severe pulmonary hypertension/Corpulmonale May use own CPAP Pulmonary hypertension and right heart failure lasix will hold losartan while diuresisng to avoid sudden drop in BP H/O. DVT, BILAT. PE Eliquis RESTLESS LEG on norco HTN losartan CKD stage 3 creatinine at baseline GERD PPI DEPRESSION/ANXIETY cymbalta will reduce dose, very sleepy. HYPERLIPIDEMIA statin Plan/VTE VTE Prophylaxis Ordered?: Yes VS, I&O, 24H, Fishbone Vital Signs/I&O Vital Signs Date Time Temp Pulse Resp B/P (MAP) Pulse Ox O2 Delivery O2 Flow Rate FiO2 05/08/20 08:00 96.7 72 16 160/70 (100) 94 Room Air I&O- Last 24 Hours up to 6 AM 05/08/20 06:00 Intake Total 1820 ml Output Total 6150 ml Balance -4330 ml Laboratory Data 24H LABS Laboratory Tests 2 05/07/20 11:02: Total Creatine Kinase 371H, Creatine Kinase MB 2.8, Creatine Kinase MB Relative Index 0.75, Troponin I < 0.02 05/07/20 11:34: Bedside Glucose (Misc Panel) 327H 05/07/20 15:49: Total Creatine Kinase 384H, Creatine Kinase MB 2.8, Creatine Kinase MB Relative Index 0.73, Troponin I < 0.02, Anion Gap 6L, Glomerular Filtration Rate 35.9L, Calcium Level 9.0, Magnesium Level 1.7L 05/07/20 16:37: Bedside Glucose (Misc Panel) 294H 05/07/20 20:18: Bedside Glucose (Misc Panel) 409H 05/08/20 04:46: Immature Granulocyte % (Auto) 0.6, Neutrophils (%) (Auto) 44.8, Lymphocytes (%) (Auto) 39.5, Monocytes (%) (Auto) 11.7H, Eosinophils (%) (Auto) 2.4, Basophils (%) (Auto) 1.0, Neutrophils # (Auto) 2.2, Lymphocytes # (Auto) 2.0, Monocytes # (Auto) 0.6, Eosinophils # (Auto) 0.1, Basophils # (Auto) 0.1, Nucleated Red Blood Cells % (auto) 0.0, Anion Gap 10, Glomerular Filtration Rate 37.3L, Calcium Level 8.6L, Magnesium Level 1.8 CBC/BMP Laboratory Tests 05/07/20 15:49 05/08/20 04:46 Microbiology Microbiology 05/06/20 Respiratory Virus Panel (PCR) ([facility]) - Final, Complete RAYLYN MD May 08, 2020 10:42
--- NOTE | 2020-05-08 11:29 | ECHO ---
DATE OF PROCEDURE: 05/07/2020 Age: 69 Gender: Female Height: 66 inches Weight: 313 pounds Body surface area: 2.41 m2 PATIENT LOCATION: Inpatient PCU, Room 3216. REFERRING PHYSICIAN: Hellen Delgado MD. INDICATION: Congestive heart failure (CHF). MEASUREMENTS: 2D Measurements: RV 4.2 cm LV 4.4 cm Septum 1.3 cm Posterior wall 1.2 cm Aortic Root 3.7 cm LA 3.5 cm LVEF 75-80% Doppler Measurements: AV 1.25 m/s LVOT 1.06 m/s LVOT diameter 2.2 cm MV-E 81, A 93, E/A ratio 0.9 Early mitral deceleration time 248 msec E prime medial 6.1, A prime medial 8, E prime lateral 6.3 Average E/E prime ratio 13/PCWP - 18 mmHg PV 0.9 m/s Pulmonary artery acceleration time 122 msec PASP 26 mmHg COMMENTS: Normal sinus rhythm without intraventricular conduction disturbance. Technically very difficult study in light of the patients body habitus, but some diagnostically useful information was still obtained. M-mode and two-dimensional echocardiography was performed with pulse, continuous wave, color flow, and tissue Doppler studies. Borderline concentric left ventricular hypertrophy with hyperkinetic wall motion. Normal appearing left atrial size with Doppler evidence of an impairment of LV diastolic function, but current estimated mean left atrial pressure was only slightly elevated. At least mildly dilated right ventricle with normal wall motion. Single Doppler sign to suggest pulmonary arterial pressure upper limits of normal, but this pulmonary acceleration time was a challenge to measure. Her tricuspid valve could not be visualized and using guided continuous wave Doppler, we could not get a tricuspid regurgitation signal to further estimate her right ventricle systolic pressure. At least mildly dilated right atrium, but we could not visualize her inferior vena cava to further document or estimate her central venous pressure. Normal aortic root and proximal ascending aortic diameters. Normal appearing aortic valve with no LV outflow trace obstruction or insufficiency. Normal appearing mitral valve apparatus without apparent functional abnormality. We could not visualize any intracardiac mass. No pericardial effusion. MTDD
[2020-05-08 12:00] VITALS: BP 159/69
[2020-05-08 16:00] VITALS: BP 117/58
[2020-05-08 20:00] VITALS: BP 159/70
[2020-05-08] MEDS: LOSARTAN 50MG TABLET PO SCH (21:00)
[2020-05-09] VITALS: BP 122/55
[2020-05-09 04:00] VITALS: BP 112/53
[2020-05-09 04:43] LABS: BASO # 0.1 10^3/uL (0.0-0.2); BASO % 1.1 % (0.0-1.0); EOS # 0.2 10^3/uL (0.0-0.5); EOS % 3.4 % (0.0-3.0); HEMOGLOBIN 12.3 g/dl (12.0-15.5); LYMPH # 2.1 10^3/uL (1.5-5.0); MEAN CORPUSCULAR HGB CONC 32.4 g/dl (32.0-36.5); MEAN CORPUSCULAR VOLUME 86.6 fl (80.0-96.0); MONO # 0.6 10^3/uL (0.0-0.8); MONO % 10.4 % (2.0-8.0); NEUTROPHILS # 2.7 10^3/uL (1.5-8.5); NEUTROPHILS % 47.9 % (36.0-66.0); PLATELET COUNT, AUTOMATED 221 10^3/uL (150-450); RED BLOOD COUNT 4.39 10^6/uL (4.00-5.40); WHITE BLOOD COUNT 5.7 10^3/uL (4.0-10.0)
[2020-05-09 05:02] LABS: CREATININE FOR GFR 1.2 MG/DL (0.55-1.30); GLOMERULAR FILTRATION RATE 47.6 (>45); MAGNESIUM LEVEL 1.6 MG/DL (1.8-2.4); POTASSIUM SERUM 3.3 MEQ/L (3.5-5.1)
[2020-05-09 08:00] VITALS: BP 141/66
[2020-05-09] MEDS: APIXABAN 5 MG TAB (ELIQUIS) PO SCH ×2 (08:03→21:13)
[2020-05-09] MEDS: PREGABALIN 75 MG CAP(LYRICA) PO SCH ×2 (08:03→21:12)
[2020-05-09] MEDS: ACETAMINOPHEN 650MG ER TAB (TYLENOL ARTHRITIS) PO SCH ×2 (08:03→21:12)
[2020-05-09] MEDS: HumaLOG INSULIN (NovoLOG) PER UNIT SC SCH ×4 (08:04→21:00)
[2020-05-09] MEDS: DULoxetine 30 MG CAP (CYMBALTA) PO SCH ×2 (08:04→21:12)
[2020-05-09] MEDS: OMEPRAZOLE 20 MG CAP PO SCH (08:04)
[2020-05-09] MEDS: LEVEMIR (INSULIN DETEMIR) 1 UNITS/0.01ML SC SCH ×3 (08:05→21:15)
[2020-05-09] MEDS: NORCO, ANEXSIA 5/325MG TABLET (HYDROcodone/ACETAMINOPHEN) PO PRN (08:07)
[2020-05-09] MEDS: ADVAIR HFA 45/21MCG INHALER INH SCH ×2 (08:31→19:50)
[2020-05-09] MEDS: FUROSEMIDE 40MG/4ML VIAL (J1940) IV SCH ×2 (09:11→17:35)
[2020-05-09] MEDS ORDERED: POTASSIUM CHLORIDE 10 MEQ SR TABLET PO ONE ×2 (09:15→12:00)
--- NOTE | 2020-05-09 09:26 | IPNPDOC ---
Subjective Date Seen The patient was seen on 05/09/20. Subjective Chief Complaint/HPI No complaints this morning. No dizziness or light headedness. Very good diuresis. Sugars uncontrolled which probably aiding with osmotic diuresis. Insulin dose adjusted. Objective Physical Examination General Exam: Positive: Alert, Cooperative, No Acute Distress Eye Exam: Positive: PERRLA, Conjunctiva & lids normal, EOMI; Negative: Sclera icteric ENT Exam: Positive: Atraumatic, Mucous membr. moist/pink, Pharynx Normal Neck Exam: Positive: Supple, JVD; Negative: thyromegaly Chest Exam: Positive: Clear to auscultation, Normal air movement, Diminished Heart Exam: Positive: Rate Normal, Regular Rhythm, Normal S1, Normal S2; Negative: Murmurs, Rubs Abdomen Exam: Positive: Normal bowel sounds, Soft; Negative: Tenderness Extremity Exam: Positive: Edema, Normal pulses; Negative: Clubbing, Cyanosis Assessment /Plan Assessment 69 year old female with multiple medical comorbidities from [facility] was sent to the ED from Dr Lovelace's office for massive gain in weight (28lbs), SOB, fatigue, tiredness and increased somnolence. Patient reports that she has not been feeling well for several weeks, she has been tired, sleeping most of the day, no energy to get out of bed and do her daily activities, getting easily winded with minor activities. She reports that her SOB worsens with exertion. She has been steadily gaining weight though does not feel bloated. She has been complaint with her medications and the use of her CPAP. She denies any cough or fever. Denies any abdominal pain, nausea or vomiting. Denies any chest pain. She was admitted for acute on chronic CHF most likely diastolic and right sided CHF exacerbation. Intermittent sharp central chest pain going to the back on 05/07/20 twice yesterday in morning and afternoon. cardiac enzymes and ekgs negative for acute ischemia She had a cardiac cath as per jadon Lovelace in August 2019 and had clean coronaries Likely musculoskeletal , Could also be due to pulmonary hypertension/ acid reflux. No further chest pain today CHF exacerbation most likely Diastolic and right heart failure She has corpulmonale as per Dr Lovelace who reviewed her new echo and CT chest. fluid restriction 1.8 liters, daily weight and intake and output Lasix IV. Hypokalemia and hypomagnesemia replaced. DM with neuropathy continue levemir and lispro, lyrica, norco. COPD advair and albuterol BERYL/ Morbid obesity/severe pulmonary hypertension/Corpulmonale May use own CPAP Pulmonary hypertension and right heart failure lasix will hold losartan while diuresisng to avoid sudden drop in BP H/O. DVT, BILAT. PE Eliquis RESTLESS LEG on norco HTN losartan CKD stage 3 creatinine at baseline GERD PPI DEPRESSION/ANXIETY cymbalta will reduce dose, very sleepy. HYPERLIPIDEMIA statin Plan/VTE VTE Prophylaxis Ordered?: Yes VS, I&O, 24H, Fishbone Vital Signs/I&O Vital Signs Date Time Temp Pulse Resp B/P (MAP) Pulse Ox O2 Delivery O2 Flow Rate FiO2 05/09/20 08:07 20 Room Air 05/09/20 08:00 97.2 63 141/66 (91) 96 2.0 24 I&O- Last 24 Hours up to 6 AM 05/09/20 06:00 Intake Total 1140 ml Output Total 4100 ml Balance -2960 ml Laboratory Data 24H LABS Laboratory Tests 2 05/08/20 11:33: Bedside Glucose (Misc Panel) 370H 05/08/20 16:24: Bedside Glucose (Misc Panel) 375H 05/08/20 22:24: Bedside Glucose (Misc Panel) 381H 05/09/20 04:22: Immature Granulocyte % (Auto) 0.2, Neutrophils (%) (Auto) 47.9, Lymphocytes (%) (Auto) 37.0, Monocytes (%) (Auto) 10.4H, Eosinophils (%) (Auto) 3.4H, Basophils (%) (Auto) 1.1H, Neutrophils # (Auto) 2.7, Lymphocytes # (Auto) 2.1, Monocytes # (Auto) 0.6, Eosinophils # (Auto) 0.2, Basophils # (Auto) 0.1, Nucleated Red Blood Cells % (auto) 0.0, Anion Gap 8, Glomerular Filtration Rate 47.6, Calcium Level 9.0, Magnesium Level 1.6L CBC/BMP Laboratory Tests 05/09/20 04:22 Microbiology Microbiology 05/06/20 Respiratory Virus Panel (PCR) ([facility]) - Final, Complete LYN PITTMAN MD May 09, 2020 09:26
[2020-05-09] MEDS ORDERED: MAG SULF 1GM/100ML (MAG RUN) 1 GM in IV 1 EA IV ONE (10:00)
[2020-05-09 12:00] VITALS: BP 131/76
[2020-05-09] MEDS ORDERED: MAGNESIUM OXIDE 400MG TAB (MAG-OX) As Ordered ONE (12:57)
[2020-05-09 16:00] VITALS: BP 139/62
[2020-05-09] MEDS ORDERED: HumaLOG INSULIN (NovoLOG) PER UNIT SC ONE ×3 (17:45→23:20)
[2020-05-09 20:00] VITALS: BP 142/69
[2020-05-09] MEDS ORDERED: LEVEMIR (INSULIN DETEMIR) 1 UNITS/0.01ML SC SCH ×2 (21:00)
[2020-05-09] MEDS: LOSARTAN 50MG TABLET PO SCH (21:13)
[2020-05-09] MEDS: MAGNESIUM OXIDE 400MG TAB (MAG-OX) PO SCH (21:22)
[2020-05-10] VITALS: BP 133/66
[2020-05-10 00:49] LABS: CALCIUM LEVEL 9.4 MG/DL (8.8-10.2); CREATININE FOR GFR 1.74 MG/DL (0.55-1.30); POTASSIUM SERUM 3.7 MEQ/L (3.5-5.1)
[2020-05-10 04:00] VITALS: BP 127/57
[2020-05-10 05:18] LABS: BASO # 0.1 10^3/uL (0.0-0.2); BASO % 1.3 % (0.0-1.0); EOS # 0.1 10^3/uL (0.0-0.5); EOS % 2.7 % (0.0-3.0); HEMATOCRIT 37.9 % (36.0-47.0); HEMOGLOBIN 12.1 g/dl (12.0-15.5); LYMPH # 1.8 10^3/uL (1.5-5.0); LYMPH % 33.7 % (24.0-44.0); MEAN CORPUSCULAR HEMOGLOBIN 27.3 pg (27.0-33.0); MEAN CORPUSCULAR HGB CONC 31.9 g/dl (32.0-36.5); MEAN CORPUSCULAR VOLUME 85.6 fl (80.0-96.0); MONO # 0.6 10^3/uL (0.0-0.8); MONO % 10.6 % (2.0-8.0); NEUTROPHILS # 2.7 10^3/uL (1.5-8.5); NEUTROPHILS % 51.5 % (36.0-66.0); PLATELET COUNT, AUTOMATED 214 10^3/uL (150-450); RED BLOOD COUNT 4.43 10^6/uL (4.00-5.40); WHITE BLOOD COUNT 5.2 10^3/uL (4.0-10.0)
[2020-05-10 05:40] LABS: CALCIUM LEVEL 8.8 MG/DL (8.8-10.2); CREATININE FOR GFR 1.57 MG/DL (0.55-1.30); GLOMERULAR FILTRATION RATE 34.9 (>45); MAGNESIUM LEVEL 1.8 MG/DL (1.8-2.4); POTASSIUM SERUM 3.8 MEQ/L (3.5-5.1)
[2020-05-10 05:54] LABS: HEMOGLOBIN A1c 9.7 %
[2020-05-10] MEDS: HumaLOG INSULIN (NovoLOG) PER UNIT SC SCH ×5 (06:05→21:19)
[2020-05-10 07:54] VITALS: BP 150/65
[2020-05-10] MEDS: PREGABALIN 75 MG CAP(LYRICA) PO SCH ×2 (08:32→21:11)
[2020-05-10] MEDS: OMEPRAZOLE 20 MG CAP PO SCH (08:32)
[2020-05-10] MEDS: DULoxetine 30 MG CAP (CYMBALTA) PO SCH ×2 (08:32→21:11)
[2020-05-10] MEDS: ACETAMINOPHEN 650MG ER TAB (TYLENOL ARTHRITIS) PO SCH ×2 (08:32→21:11)
[2020-05-10] MEDS: APIXABAN 5 MG TAB (ELIQUIS) PO SCH ×2 (08:32→21:11)
[2020-05-10] MEDS: LEVEMIR (INSULIN DETEMIR) 1 UNITS/0.01ML SC SCH ×3 (08:33→21:11)
[2020-05-10] MEDS: TORSEMIDE 20 MG TAB PO SCH ×2 (08:33→17:00)
[2020-05-10] MEDS: MAGNESIUM OXIDE 400MG TAB (MAG-OX) PO SCH ×2 (08:33→21:11)
[2020-05-10] MEDS: NORCO, ANEXSIA 5/325MG TABLET (HYDROcodone/ACETAMINOPHEN) PO PRN (08:35)
[2020-05-10] MEDS: ADVAIR HFA 45/21MCG INHALER INH SCH ×2 (08:53→19:46)
[2020-05-10] MEDS ORDERED: SLF 3 ML SYR IV PRN (09:15)
--- NOTE | 2020-05-10 11:06 | IPNPDOC ---
Subjective Date Seen The patient was seen on 05/10/20. Subjective Chief Complaint/HPI Says her breathing is the best in several weeks. She just feels tired. When she woke up she felt her head was very heavy she attributed that to be due to oxygen given at night. I explained that it was probably because she has not had her CPAP last 2 days. Will arrange for one of the hospital CPAPs for tonight. Her sugars have been uncontrolled yesterday. Her insulins have been adjusted. She has a cumulative negative balance of 11.6 liters. 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 Objective Physical Examination General Exam: Positive: Alert, Cooperative, No Acute Distress Eye Exam: Positive: PERRLA, Conjunctiva & lids normal, EOMI; Negative: Sclera icteric ENT Exam: Positive: Atraumatic, Mucous membr. moist/pink, Pharynx Normal Neck Exam: Positive: Supple, JVD; Negative: thyromegaly Chest Exam: Positive: Clear to auscultation, Normal air movement, Diminished Heart Exam: Positive: Rate Normal, Regular Rhythm, Normal S1, Normal S2; Negative: Murmurs, Rubs Abdomen Exam: Positive: Normal bowel sounds, Soft, Other (obese); Negative: Tenderness Extremity Exam: Negative: Clubbing, Cyanosis, Edema Assessment /Plan Assessment 69 year old female with multiple medical comorbidities from [facility] was sent to the ED from Dr Lovelace's office for massive gain in weight (28lbs), SOB, fatigue, tiredness and increased somnolence. Patient reports that she has not been feeling well for several weeks, she has been tired, sleeping most of the day, no energy to get out of bed and do her daily activities, getting easily winded with minor activities. She reports that her SOB worsens with exertion. She has been steadily gaining weight though does not feel bloated. She has been complaint with her medications and the use of her CPAP. She denies any cough or fever. Denies any abdominal pain, nausea or vomiting. Denies any chest pain. She was admitted for acute on chronic CHF most likely diastolic and right sided CHF exacerbation. CHF exacerbation Acute on chronic Diastolic and right heart failure She has corpulmonale as per Dr Lovelace who reviewed her new echo and CT chest. fluid restriction 1.8 liters, daily weight and intake and output torsemide po. Hypokalemia and hypomagnesemia replaced. Chest pains on 05/07/20 cardiac enzymes and ekgs negative for acute ischemia She had a cardiac cath as per Dr Lovelace in August 2019 and had clean coronaries Likely musculoskeletal , Could also be due to pulmonary hypertension/ acid reflux. No further chest pain today DM with neuropathy continue levemir and lispro, lyrica, norco. COPD advair and albuterol BERYL/ Morbid obesity/severe pulmonary hypertension/Corpulmonale CPAP Pulmonary hypertension and right heart failure Torsemide. will hold losartan while diuresisng to avoid sudden drop in BP H/O. DVT, BILAT. PE Eliquis RESTLESS LEG on norco HTN losartan CKD stage 3 creatinine at baseline GERD PPI DEPRESSION/ANXIETY cymbalta will reduce dose, very sleepy. HYPERLIPIDEMIA statin Plan/VTE VTE Prophylaxis Ordered?: Yes VS, I&O, 24H, Fishbone Vital Signs/I&O Vital Signs Date Time Temp Pulse Resp B/P (MAP) Pulse Ox O2 Delivery O2 Flow Rate FiO2 05/10/20 08:35 20 Room Air 05/10/20 07:54 97.7 63 150/65 (93) 100 2.0 05/09/20 08:00 24 I&O- Last 24 Hours up to 6 AM 05/10/20 06:00 Intake Total 1150 ml Output Total 3500 ml Balance -2350 ml Laboratory Data 24H LABS Laboratory Tests 2 05/09/20 17:13: Bedside Glucose (Misc Panel) 501*H 05/09/20 17:29: Bedside Glucose Confirm (Misc) 605*H 05/09/20 18:27: Bedside Glucose (Misc Panel) 559*H 05/09/20 20:30: Bedside Glucose (Misc Panel) 592*H 05/09/20 23:07: Bedside Glucose (Misc Panel) 511*H 05/10/20 00:00: Anion Gap 8, Glomerular Filtration Rate 31.0L, Osmolality 321H, Calcium Level 9.4 05/10/20 01:35: Bedside Glucose (Misc Panel) 432H 05/10/20 04:06: Bedside Glucose (Misc Panel) 405H 05/10/20 04:59: Immature Granulocyte % (Auto) 0.2, Neutrophils (%) (Auto) 51.5, Lymphocytes (%) (Auto) 33.7, Monocytes (%) (Auto) 10.6H, Eosinophils (%) (Auto) 2.7, Basophils (%) (Auto) 1.3H, Neutrophils # (Auto) 2.7, Lymphocytes # (Auto) 1.8, Monocytes # (Auto) 0.6, Eosinophils # (Auto) 0.1, Basophils # (Auto) 0.1, Nucleated Red Blood Cells % (auto) 0.0, Anion Gap 7L, Glomerular Filtration Rate 34.9L, Est imated Mean Plasma Glucose 232H, Hemoglobin A1c 9.7, Calcium Level 8.8, Magnesium Level 1.8 05/10/20 05:45: Bedside Glucose (Misc Panel) 408H 05/10/20 07:56: Bedside Glucose (Misc Panel) 339H CBC/BMP Laboratory Tests 05/10/20 00:00 05/10/20 04:59 Microbiology Microbiology 05/06/20 Respiratory Virus Panel (PCR) ([facility]) - Final, Complete LYN PITTMAN MD May 10, 2020 11:06
[2020-05-10] MEDS ORDERED: POTASSIUM CHLORIDE 10 MEQ SR TABLET PO ONE (11:30)
[2020-05-10 12:00] VITALS: BP 151/67
[2020-05-10] MEDS: SLF 3 ML SYR IV SCH ×2 (12:18→21:12)
[2020-05-10 16:00] VITALS: BP 122/58
[2020-05-10 20:00] VITALS: BP 143/58
[2020-05-10] MEDS: LOSARTAN 50MG TABLET PO SCH (21:12)
[2020-05-11] VITALS: BP 102/49
[2020-05-11] MEDS: HumaLOG INSULIN (NovoLOG) PER UNIT SC SCH ×7 (00:32→23:48)
[2020-05-11 04:00] VITALS: BP 101/57
[2020-05-11 04:40] LABS: BASO # 0.1 10^3/uL (0.0-0.2); BASO % 0.9 % (0.0-1.0); EOS # 0.2 10^3/uL (0.0-0.5); HEMATOCRIT 37.6 % (36.0-47.0); HEMOGLOBIN 12.2 g/dl (12.0-15.5); LYMPH # 2.2 10^3/uL (1.5-5.0); LYMPH % 38.3 % (24.0-44.0); MEAN CORPUSCULAR HEMOGLOBIN 27.7 pg (27.0-33.0); MEAN CORPUSCULAR HGB CONC 32.4 g/dl (32.0-36.5); MEAN CORPUSCULAR VOLUME 85.3 fl (80.0-96.0); MONO # 0.6 10^3/uL (0.0-0.8); MONO % 10.1 % (2.0-8.0); NEUTROPHILS # 2.7 10^3/uL (1.5-8.5); NEUTROPHILS % 47.5 % (36.0-66.0); PLATELET COUNT, AUTOMATED 211 10^3/uL (150-450); RED BLOOD COUNT 4.41 10^6/uL (4.00-5.40); WHITE BLOOD COUNT 5.7 10^3/uL (4.0-10.0)
[2020-05-11 05:01] LABS: CALCIUM LEVEL 9.2 MG/DL (8.8-10.2); CREATININE FOR GFR 1.27 MG/DL (0.55-1.30); GLOMERULAR FILTRATION RATE 44.5 (>45); MAGNESIUM LEVEL 1.8 MG/DL (1.8-2.4); POTASSIUM SERUM 3.3 MEQ/L (3.5-5.1)
[2020-05-11] MEDS: SLF 3 ML SYR IV SCH ×3 (05:02→20:45)
[2020-05-11] MEDS: ADVAIR HFA 45/21MCG INHALER INH SCH ×2 (07:32→20:38)
[2020-05-11 07:39] VITALS: BP 120/56
[2020-05-11] MEDS: LEVEMIR (INSULIN DETEMIR) 1 UNITS/0.01ML SC SCH ×3 (08:41→20:42)
[2020-05-11] MEDS: DULoxetine 30 MG CAP (CYMBALTA) PO SCH ×2 (08:43→20:44)
[2020-05-11] MEDS: OMEPRAZOLE 20 MG CAP PO SCH (08:43)
[2020-05-11] MEDS: PREGABALIN 75 MG CAP(LYRICA) PO SCH ×2 (08:44→20:43)
[2020-05-11] MEDS: APIXABAN 5 MG TAB (ELIQUIS) PO SCH ×2 (08:44→20:43)
[2020-05-11] MEDS: MAGNESIUM OXIDE 400MG TAB (MAG-OX) PO SCH ×2 (08:45→20:44)
[2020-05-11] MEDS: POTASSIUM CHLORIDE 10 MEQ SR TABLET PO SCH (08:46)
[2020-05-11] MEDS: ACETAMINOPHEN 650MG ER TAB (TYLENOL ARTHRITIS) PO SCH ×2 (08:46→20:45)
--- NOTE | 2020-05-11 10:21 | IPNPDOC ---
Subjective Date Seen The patient was seen on 05/11/20. Subjective Chief Complaint/HPI Feels very tired and weak. Feels like sleeping all day long. I did diurese her aggressively last 3 days and she has been having uncontrolled sugars with ostotic diuresis adding up to it. this may be making her feel very tired. We were able to give her a CPAP last night. Will hold off on diuresis today and allow the body fluid to re equilibrate. Sugars better controlled this morning. Objective Physical Examination General Exam: Positive: Alert, Cooperative, No Acute Distress Eye Exam: Positive: PERRLA, Conjunctiva & lids normal, EOMI; Negative: Sclera icteric ENT Exam: Positive: Atraumatic, Mucous membr. moist/pink, Pharynx Normal Neck Exam: Positive: Supple, JVD; Negative: thyromegaly Chest Exam: Positive: Clear to auscultation, Normal air movement, Diminished Heart Exam: Positive: Rate Normal, Regular Rhythm, Normal S1, Normal S2; Negative: Murmurs, Rubs Abdomen Exam: Positive: Normal bowel sounds, Soft, Other (obese); Negative: Tenderness Extremity Exam: Negative: Clubbing, Cyanosis, Edema Assessment /Plan Assessment 69 year old female with multiple medical comorbidities from [facility] was sent to the ED from Dr Lovelace's office for massive gain in weight (28lbs), SOB, fatigue, tiredness and increased somnolence. Patient reports that she has not been feeling well for several weeks, she has been tired, sleeping most of the day, no energy to get out of bed and do her daily activities, getting easily winded with minor activities. She reports that her SOB worsens with exertion. She has been steadily gaining weight though does not feel bloated. She has been complaint with her medications and the use of her CPAP. She denies any cough or fever. Denies any abdominal pain, nausea or vomiting. Denies any chest pain. She was admitted for acute on chronic CHF most likely diastolic and right sided CHF exacerbation. CHF exacerbation Acute on chronic Diastolic and right heart failure She has corpulmonale as per Dr Lovelace who reviewed her new echo and CT chest. fluid restriction 1.8 liters, daily weight and intake and output torsemide po. Hypokalemia and hypomagnesemia replaced. Chest pains on 05/07/20 cardiac enzymes and ekgs negative for acute ischemia She had a cardiac cath as per Dr Lovelace in August 2019 and had clean coronaries Likely musculoskeletal , Could also be due to pulmonary hypertension/ acid reflux. No further chest pains DM with neuropathy continue levemir and lispro, lyrica, norco. COPD advair and albuterol BERYL/ Morbid obesity/severe pulmonary hypertension/Corpulmonale CPAP Pulmonary hypertension and right heart failure Torsemide. will hold losartan while diuresisng to avoid sudden drop in BP H/O. DVT, BILAT. PE Eliquis RESTLESS LEG on norco HTN losartan CKD stage 3 creatinine at baseline GERD PPI DEPRESSION/ANXIETY cymbalta will reduce dose, very sleepy. HYPERLIPIDEMIA statin Plan/VTE VTE Prophylaxis Ordered?: Yes VS, I&O, 24H, Fishbone Vital Signs/I&O Vital Signs Date Time Temp Pulse Resp B/P (MAP) Pulse Ox O2 Delivery O2 Flow Rate FiO2 05/11/20 07:39 96.7 62 18 120/56 (77) 100 05/11/20 04:00 NIPPV (BIPAP/CPAP) 05/10/20 07:54 2.0 05/09/20 08:00 24 I&O- Last 24 Hours up to 6 AM 05/11/20 06:00 Intake Total 780 ml Output Total 2800 ml Balance -2020 ml Laboratory Data 24H LABS Laboratory Tests 2 05/10/20 12:10: Bedside Glucose (Misc Panel) 416H 05/10/20 12:37: Bedside Glucose (Misc Panel) 458H 05/10/20 16:50: Bedside Glucose (Misc Panel) 377H 05/10/20 20:20: Bedside Glucose (Misc Panel) 447H 05/11/20 00:26: Bedside Glucose (Misc Panel) 317H 05/11/20 04:14: Immature Granulocyte % (Auto) 0.2, Neutrophils (%) (Auto) 47.5, Lymphocytes (%) (Auto) 38.3, Monocytes (%) (Auto) 10.1H, Eosinophils (%) (Auto) 3.0, Basophils (%) (Auto) 0.9, Neutrophils # (Auto) 2.7, Lymphocytes # (Auto) 2.2, Monocytes # (Auto) 0.6, Eosinophils # (Auto) 0.2, Basophils # (Auto) 0.1, Nucleated Red Blood Cells % (auto) 0.0, Anion Gap 7L, Glomerular Filtration Rate 44.5L, Calcium Level 9.2, Magnesium Level 1.8 05/11/20 04:49: Bedside Glucose (Misc Panel) 249H 05/11/20 07:56: Bedside Glucose (Misc Panel) 214H CBC/BMP Laboratory Tests 05/11/20 04:14 Microbiology Microbiology 05/06/20 Respiratory Virus Panel (PCR) ([facility]) - Final, Complete LYN PITTMAN MD May 11, 2020 10:21
[2020-05-11 12:00] VITALS: BP 159/71
[2020-05-11] MEDS: NORCO, ANEXSIA 5/325MG TABLET (HYDROcodone/ACETAMINOPHEN) PO PRN (12:17)
[2020-05-11 16:00] VITALS: BP 119/56
[2020-05-11 20:00] VITALS: BP_SYST 118; BP_SYST 153; BP_DIAS 53; BP_DIAS 66
[2020-05-11] MEDS: LOSARTAN 50MG TABLET PO SCH (20:45)
[2020-05-12] VITALS (7 sets, daily range): BP systolic 123–149; BP diastolic 59–66
[2020-05-12] MEDS: HumaLOG INSULIN (NovoLOG) PER UNIT SC SCH ×5 (04:10→20:31)
[2020-05-12] MEDS: SLF 3 ML SYR IV SCH ×3 (04:10→20:33)
[2020-05-12 04:41] LABS: BASO # 0.1 10^3/uL (0.0-0.2); BASO % 1.2 % (0.0-1.0); EOS # 0.2 10^3/uL (0.0-0.5); EOS % 3.7 % (0.0-3.0); HEMATOCRIT 36.6 % (36.0-47.0); LYMPH # 2.3 10^3/uL (1.5-5.0); LYMPH % 44.9 % (24.0-44.0); MEAN CORPUSCULAR HEMOGLOBIN 27.8 pg (27.0-33.0); MEAN CORPUSCULAR HGB CONC 32.8 g/dl (32.0-36.5); MEAN CORPUSCULAR VOLUME 84.7 fl (80.0-96.0); MONO # 0.5 10^3/uL (0.0-0.8); MONO % 8.9 % (2.0-8.0); NEUTROPHILS # 2.1 10^3/uL (1.5-8.5); NEUTROPHILS % 41.1 % (36.0-66.0); PLATELET COUNT, AUTOMATED 193 10^3/uL (150-450); RED BLOOD COUNT 4.32 10^6/uL (4.00-5.40); WHITE BLOOD COUNT 5.2 10^3/uL (4.0-10.0)
[2020-05-12 05:02] LABS: CALCIUM LEVEL 9.1 MG/DL (8.8-10.2); CREATININE FOR GFR 1.22 MG/DL (0.55-1.30); GLOMERULAR FILTRATION RATE 46.7 (>45); MAGNESIUM LEVEL 1.7 MG/DL (1.8-2.4); POTASSIUM SERUM 3.5 MEQ/L (3.5-5.1)
[2020-05-12] MEDS: ADVAIR HFA 45/21MCG INHALER INH SCH ×2 (07:19→20:14)
[2020-05-12] MEDS ORDERED: MAG SULF 1GM/100ML (MAG RUN) 1 GM in IV 1 EA IV ONE (08:00)
[2020-05-12] MEDS: PREGABALIN 75 MG CAP(LYRICA) PO SCH ×2 (08:57→20:31)
[2020-05-12] MEDS: ACETAMINOPHEN 650MG ER TAB (TYLENOL ARTHRITIS) PO SCH ×2 (08:57→20:35)
[2020-05-12] MEDS: OMEPRAZOLE 20 MG CAP PO SCH (08:57)
[2020-05-12] MEDS: LEVEMIR (INSULIN DETEMIR) 1 UNITS/0.01ML SC SCH (08:57)
[2020-05-12] MEDS: DULoxetine 30 MG CAP (CYMBALTA) PO SCH ×2 (08:58→20:32)
[2020-05-12] MEDS: APIXABAN 5 MG TAB (ELIQUIS) PO SCH ×2 (08:58→20:32)
[2020-05-12] MEDS: MAGNESIUM OXIDE 400MG TAB (MAG-OX) PO SCH ×2 (08:58→20:31)
[2020-05-12] MEDS: POTASSIUM CHLORIDE 10 MEQ SR TABLET PO SCH (08:58)
[2020-05-12] MEDS: TORSEMIDE 20 MG TAB PO SCH ×2 (09:00→16:54)
--- NOTE | 2020-05-12 11:00 | IPNPDOC ---
Text Note Date of Service The patient was seen on 05/12/20. NOTE Subjective: Patient seen and examined at bedside. No acute overnight events reported. She still notes generalized weakness. Denies shortness of breath. Objective: General: NAD, lying comfortably in bed HEENT: NC/AT, edentulous Lungs: diminished breath sounds Heart: +S1S2, RRR Abd: soft, obese, NT, +BS Ext: trace edema A/P: 69 year old female with multiple medical comorbidities from [facility] was sent to the ED from Dr Lovelace's office for massive gain in weight (28lbs), SOB, fatigue, tiredness and increased somnolence. Patient reports that she has not been feeling well for several weeks, she has been tired, sleeping most of the day, no energy to get out of bed and do her daily activities, getting easily winded with minor activities. She reports that her SOB worsens with exertion. She has been steadily gaining weight though does not feel bloated. She has been complaint with her medications and the use of her CPAP. She denies any cough or fever. Denies any abdominal pain, nausea or vomiting. Denies any chest pain. She was admitted for acute on chronic CHF most likely diastolic and right sided CHF exacerbation. #CHF exacerbation Acute on chronic Diastolic and right heart failure She has corpulmonale as per Dr Lovelace who reviewed her new echo and CT chest. fluid restriction 1.8 liters, daily weight and intake and output torsemide po. #Hypokalemia and hypomagnesemia replaced. #Chest pains on 05/07/20 cardiac enzymes and ekgs negative for acute ischemia She had a cardiac cath as per Dr Lovelace in August 2019 and had clean coronaries Likely musculoskeletal , Could also be due to pulmonary hypertension/ acid reflux. No further chest pains #DM with neuropathy continue levemir and lispro, lyrica, norco. #COPD advair and albuterol #BERYL/ Morbid obesity/severe pulmonary hypertension/Corpulmonale CPAP #Pulmonary hypertension and right heart failure Torsemide. will hold losartan while diuresisng to avoid sudden drop in BP #H/O. DVT, BILAT. PE Eliquis #RESTLESS LEG on norco #HTN losartan #CKD stage 3 creatinine at baseline #GERD PPI #DEPRESSION/ANXIETY cymbalta will reduce dose, very sleepy. #HYPERLIPIDEMIA statin Dispo: PT/OT recommending placement for rehab VS,Fishbone, I+O VS, Fishbone, I+O Laboratory Tests 05/12/20 04:29 Vital Signs Date Time Temp Pulse Resp B/P (MAP) Pulse Ox O2 Delivery O2 Flow Rate FiO2 05/12/20 07:14 96.1 64 18 145/66 (92) 93 05/11/20 12:47 Room Air 05/10/20 07:54 2.0 05/09/20 08:00 24 I&O- Last 24 Hours up to 6 AM 05/12/20 06:00 Intake Total 1885 ml Output Total 801 ml Balance 1084 ml MEGAN LLOYD MD May 12, 2020 10:59
[2020-05-12] MEDS ORDERED: DOCUSATE SODIUM 100MG CAPSULE PO PRN (13:40)
[2020-05-12] MEDS ORDERED: SENNA 8.6 MG TAB (SENOKOT) PO PRN (13:40)
[2020-05-12] MEDS ORDERED: MOM 30ML SUSPENSION UDC PO PRN (13:40)
[2020-05-12] MEDS: LOSARTAN 50MG TABLET PO SCH (20:33)
[2020-05-12] MEDS ORDERED: LEVEMIR (INSULIN DETEMIR) 1 UNITS/0.01ML SC SCH (21:00)
[2020-05-13] VITALS: BP 162/70
[2020-05-13] MEDS ORDERED: HumaLOG INSULIN (NovoLOG) PER UNIT SC STA (00:13)
[2020-05-13] MEDS ORDERED: HumaLOG INSULIN (NovoLOG) PER UNIT SC ONE ×2 (02:25→05:30)
[2020-05-13] MEDS: HumaLOG INSULIN (NovoLOG) PER UNIT SC SCH ×3 (02:29→09:01)
[2020-05-13 04:00] VITALS: BP 130/59
[2020-05-13 04:34] LABS: BASO # 0.1 10^3/uL (0.0-0.2); EOS # 0.1 10^3/uL (0.0-0.5); EOS % 2.8 % (0.0-3.0); HEMATOCRIT 37.3 % (36.0-47.0); HEMOGLOBIN 12.1 g/dl (12.0-15.5); LYMPH # 2.1 10^3/uL (1.5-5.0); LYMPH % 42.4 % (24.0-44.0); MEAN CORPUSCULAR HEMOGLOBIN 27.6 pg (27.0-33.0); MEAN CORPUSCULAR HGB CONC 32.4 g/dl (32.0-36.5); MONO # 0.5 10^3/uL (0.0-0.8); MONO % 10.5 % (2.0-8.0); NEUTROPHILS # 2.1 10^3/uL (1.5-8.5); NEUTROPHILS % 43.1 % (36.0-66.0); PLATELET COUNT, AUTOMATED 203 10^3/uL (150-450); RED BLOOD COUNT 4.39 10^6/uL (4.00-5.40)
[2020-05-13 04:56] LABS: CALCIUM LEVEL 9.1 MG/DL (8.8-10.2); CREATININE FOR GFR 1.53 MG/DL (0.55-1.30); GLOMERULAR FILTRATION RATE 35.9 (>45); POTASSIUM SERUM 3.4 MEQ/L (3.5-5.1)
[2020-05-13] MEDS: SLF 3 ML SYR IV SCH (05:12)
[2020-05-13 07:51] VITALS: BP 123/58
[2020-05-13] MEDS: ADVAIR HFA 45/21MCG INHALER INH SCH (07:51)
[2020-05-13] MEDS: LEVEMIR (INSULIN DETEMIR) 1 UNITS/0.01ML SC SCH (09:02)
[2020-05-13] MEDS: PREGABALIN 75 MG CAP(LYRICA) PO SCH (09:02)
[2020-05-13] MEDS: OMEPRAZOLE 20 MG CAP PO SCH (09:03)
[2020-05-13] MEDS: MAGNESIUM OXIDE 400MG TAB (MAG-OX) PO SCH (09:03)
[2020-05-13] MEDS: TORSEMIDE 20 MG TAB PO SCH (09:03)
[2020-05-13] MEDS: DULoxetine 30 MG CAP (CYMBALTA) PO SCH (09:04)
[2020-05-13] MEDS: POTASSIUM CHLORIDE 10 MEQ SR TABLET PO SCH (09:04)
[2020-05-13] MEDS: ACETAMINOPHEN 650MG ER TAB (TYLENOL ARTHRITIS) PO SCH (09:04)
[2020-05-13] MEDS: APIXABAN 5 MG TAB (ELIQUIS) PO SCH (09:04)
--- NOTE | 2020-05-14 10:20 | DS.PDOC ---
Discharge Summary General Date of Admission May 06, 2020 at 17:34 Date of Discharge 05/13/20 Discharge Summary PROCEDURES PERFORMED DURING STAY: [None]. DISCHARGE DIAGNOSES: #CHF exacerbation - Acute on chronic Diastolic and right heart failure #cor pulmonale #Hypokalemia and hypomagnesemia #DM with neuropathy #COPD #BERYL/ Morbid obesity/severe pulmonary hypertension/Corpulmonale #Pulmonary hypertension and right heart failure #H/O. DVT, BILAT. PE #RESTLESS LEG #HTN #CKD stage 3 #GERD #DEPRESSION/ANXIETY #HYPERLIPIDEMIA COMPLICATIONS/CHIEF COMPLAINT: Chf Exacerbation. HISTORY OF PRESENT ILLNESS: 69 year old female with multiple medical comorbidities from [facility] was sent to the ED from Dr Lovelace's office for massive gain in weight (28lbs), SOB, fatigue, tiredness and increased somnolence. Patient reports that she has not been feeling well for several weeks, she has been tired, sleeping most of the day, no energy to get out of bed and do her daily activities, getting easily winded with minor activities. She reports that her SOB worsens with exertion. She has been steadily gaining weight though does not feel bloated. She has been complaint with her medications and the use of her CPAP. She denies any cough or fever. Denies any abdominal pain, nausea or vomiting. Denies any chest pain. She was admitted for acute on chronic CHF most likely diastolic and right sided CHF exacerbation. HOSPITAL COURSE: #CHF exacerbation Acute on chronic Diastolic and right heart failure She has cor pulmonale as per Dr Lovelace who reviewed her new echo and CT chest. fluid restriction 1.8 liters, daily weight and intake and output torsemide po. #Hypokalemia and hypomagnesemia replaced. #Chest pains on 05/07/20 cardiac enzymes and ekgs negative for acute ischemia She had a cardiac cath as per Dr Lovelace in August 2019 and had clean coronaries Likely musculoskeletal , Could also be due to pulmonary hypertension/ acid reflux. No further chest pains #DM with neuropathy continue levemir and lispro, lyrica, norco. #COPD advair and albuterol #BERYL/ Morbid obesity/severe pulmonary hypertension/Corpulmonale CPAP #Pulmonary hypertension and right heart failure Torsemide. will hold losartan while diuresisng to avoid sudden drop in BP #H/O. DVT, BILAT. PE Eliquis #RESTLESS LEG on norco #HTN losartan #CKD stage 3 creatinine at baseline #GERD PPI #DEPRESSION/ANXIETY cymbalta #HYPERLIPIDEMIA statin DISCHARGE MEDICATIONS: Please see below. ALLERGIES: Please see below. PHYSICAL EXAMINATION ON DISCHARGE: VITAL SIGNS: Please see below. General: NAD, lying comfortably in bed HEENT: NC/AT, edentulous Lungs: diminished breath sounds Heart: +S1S2, RRR Abd: soft, obese, NT, +BS Ext: trace edema LABORATORY DATA: Please see below. ACTIVITY: [As tolerated]. DISPOSITION: O4 Xfer Alp Ssv. DISCHARGE INSTRUCTIONS: 1. Follow up with PCP in 3-5 days 2. Recommend repeat BMP to monitor renal function DISCHARGE CONDITION: [Stable]. TIME SPENT ON DISCHARGE: 35 minutes. Vital Signs/I&Os Vital Signs Date Time Temp Pulse Resp B/P (MAP) Pulse Ox O2 Delivery O2 Flow Rate FiO2 05/13/20 07:51 96.9 65 19 123/58 (79) 96 05/11/20 12:47 Room Air 05/10/20 07:54 2.0 05/09/20 08:00 24 I&O- Last 24 Hours up to 6 AM 05/14/20 06:00 Intake Total 540 ml Output Total 800 ml Balance -260 ml Microbiology Microbiology 05/06/20 Respiratory Virus Panel (PCR) ([facility]) - Final, Complete Discharge Medications Scheduled Acetaminophen (Acetaminophen ER) 650 Mg Tablet.er, 650 MG PO BID, (Reported) Amlodipine Besylate (Amlodipine Besylate) 5 Mg Tablet, 5 MG PO DAILY, (Reported) Ammonium Lactate (Ammonium Lactate) 12% Cream..g., 1 APLCT TOP QAM, (Reported) APPLY TO FEET PRIOR TO ARIK STOCKINGS Apixaban (Eliquis) 5 Mg Tablet, 5 MG PO BID, (Reported) Chlorthalidone (Chlorthalidone) 25 Mg Tablet, 25 MG PO DAILY, (Reported) Cholecalciferol (Vitamin D3) (Vitamin D3) 1,000 Unit Tablet, 2,000 UNITS PO DAILY, (Reported) TAKES AT NOON Diclofenac Sodium (Voltaren) 100 Gm Gel..gram., 4 GM TOP TID, (Reported) APPLY TO HANDS Duloxetine Hcl (Cymbalta) 60 Mg Capsule.dr, 60 MG PO BID, (Reported) Fluticasone Propionate (Fluticasone Propionate) 50 Mcg/Act Spr, 2 SPRAY NARES DAILY, (Reported) Icosapent Ethyl (Vascepa) 1 Gm Capsule, 2 GM PO BID, (Reported) 0800/1700 Insulin Aspart (Novolog Flexpen) 100 Unit/1 Ml Insuln.pen, 1 DOSE SC QPM, (Reported) PATIENT SPECIFIC SLIDING SCALE : 151-200=20U, 201-250=22U, 251-300=24U, 301- 350=26U, 351-400=28U, 401-450=30U, >450=32U Insulin Aspart (Novolog Flexpen) 100 Unit/1 Ml Insuln.pen, 1 DOSE SC BID, (Reported) 0800, 1200, PATIENT SPECIFIC SLIDING SCALE: 151-200=24U, 201-250=27U, 251- 300=30U, 301-350=33U, 351-400=36U, 401-450=39U, >450=42U Insulin Glargine,Hum.rec.anlog (Lantus Solostar) 100 Unit/1 Ml Insuln.pen, 40 UNITS QHS, (Reported) Insulin Glargine,Hum.rec.anlog (Lantus Solostar) 100 Unit/1 Ml Insuln.pen, 74 UNITS SC QAM, (Reported) Liraglutide (Victoza 2-Anthony) 0.6 Mg/0.1 Ml Pen.injctr, 1.2 MG SC QPM, (Reported) 1600 - PATIENT SELF ADMINISTERS Losartan Potassium (Losartan Potassium) 50 Mg Tablet, 50 MG PO QHS, (Reported) Multivitamin,Therapeutic (Thera-Tabs) 1 Each Tablet, 1 TAB PO DAILY, (Reported) Omeprazole (Omeprazole) 40 Mg Capsule.dr, 40 MG PO DAILY, (Reported) Potassium Chloride (Potassium Chloride) 20 Meq Tablet.er, 20 MEQ PO DAILY, (Reported) Pregabalin (Pregabalin) 300 Mg Capsule, 300 MG PO BID, (Reported) Salmeterol/Fluticasone (Advair 100-50 Diskus) 1 Each Blst.w.dev, 1 PUFF INH BID, (Reported) Scheduled PRN Acetaminophen (Acetaminophen) 325 Mg Tablet, 650 MG PO Q4H PRN for PAIN, (Reported) Albuterol Sulf (Albuterol Sulfate) 2.5 Mg/3 Ml Vial.neb, 2.5 MG INH Q4H PRN for SHORTNESS OF BREATH, (Reported) Albuterol Sulfate (Proair Hfa) 8.5 Gm Hfa.aer.ad, 2 PUFF INH Q4H PRN for SHORTNESS OF BREATH, (Reported) Hydrocodone/Acetaminophen (Hydrocodone-Acetamin 5-325 mg) 1 Each Tablet, 1 TAB PO Q6H PRN for PAIN, (Reported) MDD 4 Magnesium Hydroxide (Milk of Magnesia) 400 Mg/5 Ml Oral.susp, 10 MG PO DAILY PRN for CONSTIPATION, (Reported) Allergies Coded Allergies: TAPE (Verified Allergy, Intermediate, NYLON TAPE CAUSES HIVES PER 09/09/03, 05/02/19) latex (Verified Allergy, Mild, RASH, 05/05/20) ibuprofen (Verified Adverse Reaction, Intermediate, BLEEDING, CONSTIPATION, 05/02/19) metoprolol (Verified Adverse Reaction, Intermediate, LOWERS BLOOD PRESSURE TOO MUCH, 05/02/19) LOWERS BLOOD PRESSURE TOO MUCH Quinolones (Verified Adverse Reaction, Mild, DIZZINESS, 05/02/19) morphine (Verified Adverse Reaction, Mild, ITCHING, 05/05/20) MEGAN LLOYD MD May 14, 2020 10:20
== END 2020-05-13 12:38 | DRG 291 ==
LOC: M ED 14:31 → EDBD 14:31 → M ED INP 17:34 → M PCU 20:42
PROVIDERS: ADMIT Internal Medicine Nephrology; ATTEND Internal Medicine
DX: I13.0 Hypertensive heart and chronic kidney disease with heart failure and stage 1 through stage 4 chronic kidney disease, or unspecified chronic kidney disease (principal); I50.33 Acute on chronic diastolic (congestive) heart failure; F33.9 Major depressive disorder, recurrent, unspecified; Z68.42 Body mass index [BMI] 45.0-49.9, adult; I50.813 Acute on chronic right heart failure; E11.40 Type 2 diabetes mellitus with diabetic neuropathy, unspecified; I27.29 Other secondary pulmonary hypertension; E66.01 Morbid (severe) obesity due to excess calories; G47.33 Obstructive sleep apnea (adult) (pediatric); N18.30 Chronic kidney disease, stage 3 unspecified; E11.22 Type 2 diabetes mellitus with diabetic chronic kidney disease; J44.9 Chronic obstructive pulmonary disease, unspecified; F41.9 Anxiety disorder, unspecified; R07.89 Other chest pain; G25.81 Restless legs syndrome; K21.9 Gastro-esophageal reflux disease without esophagitis; E83.42 Hypomagnesemia; E78.5 Hyperlipidemia, unspecified; E87.6 Hypokalemia; S70.01XA Contusion of right hip, initial encounter; S00.83XA Contusion of other part of head, initial encounter; W07.XXXA Fall from chair, initial encounter; Y92.018 Other place in single-family (private) house as the place of occurrence of the external cause; Z79.899 Other long term (current) drug therapy; Z79.4 Long term (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; Z79.01 Long term (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 anticoagulants; Z88.1 Allergy status to other antibiotic agents; Z88.5 Allergy status to narcotic agent; Z88.8 Allergy status to other drugs, medicaments and biological substances; Z91.040 Latex allergy status; Z88.6 Allergy status to analgesic agent; Z91.048 Other nonmedicinal substance allergy status

== ENCOUNTER 2020-05-18 17:03 | Observation (INO) | payer MEDICARE, MEDICAID ==
[~2020-05-18] VITALS: Ht 167.6 cm; Wt 135.5 kg
[~2020-05-18 17:03] MED LIST changes: -CHLO125TA; -VITMTA PO
[2020-05-18] MEDS ORDERED: CHLO125TA (17:23)
[2020-05-18 17:50] LABS: BASO % 0.4 % (0.0-1.0); EOS # 0.2 10^3/uL (0.0-0.5); EOS % 2.7 % (0.0-3.0); HEMATOCRIT 36.2 % (36.0-47.0); HEMOGLOBIN 11.7 g/dl (12.0-15.5); LYMPH # 1.8 10^3/uL (1.5-5.0); LYMPH % 25.4 % (24.0-44.0); MEAN CORPUSCULAR HEMOGLOBIN 27.6 pg (27.0-33.0); MEAN CORPUSCULAR HGB CONC 32.3 g/dl (32.0-36.5); MEAN CORPUSCULAR VOLUME 85.4 fl (80.0-96.0); MONO # 0.5 10^3/uL (0.0-0.8); MONO % 7.3 % (2.0-8.0); NEUTROPHILS # 4.4 10^3/uL (1.5-8.5); NEUTROPHILS % 63.9 % (36.0-66.0); PLATELET COUNT, AUTOMATED 221 10^3/uL (150-450); RED BLOOD COUNT 4.24 10^6/uL (4.00-5.40); WHITE BLOOD COUNT 6.9 10^3/uL (4.0-10.0)
--- NOTE | 2020-05-18 17:50 | REP ---
INDICATION: CHEST PAIN COMPARISON: 05/06/2020 TECHNIQUE: Portable AP view of the chest FINDINGS: The mediastinum and cardiac silhouette are stable and within normal limits for portable technique. The lung xiao are clear without acute consolidation, effusion, or pneumothorax. Skeletal structures are intact. IMPRESSION: No acute cardiopulmonary process appreciated. <Electronically signed by Hussein Barbosa > 05/18/20 8101
[2020-05-18 17:59] LABS: INR 1.06; PARTIAL THROMBOPLASTIN TIME 28.1 SECONDS (24.2-38.5)
[2020-05-18 18:16] LABS: ALBUMIN 3.7 GM/DL (3.2-5.2); ALT/SGPT 51 U/L (12-78); BILIRUBIN,DIRECT < 0.1 MG/DL (0.0-0.2); BILIRUBIN,TOTAL 0.3 MG/DL (0.2-1.0); BLOOD UREA NITROGEN 26 MG/DL (7-18); CALCIUM LEVEL 9.1 MG/DL (8.8-10.2); CARBON DIOXIDE LEVEL 28 MEQ/L (21-32); CHLORIDE LEVEL 103 MEQ/L (98-107); CK-MB VALUE MASS 4.4 NG/ML (<3.6); CPK CREATINE PHOSPHOKINASE 362 U/L (26-192); CREATININE FOR GFR 1.33 MG/DL (0.55-1.30); GLOMERULAR FILTRATION RATE 42.2 (>45); GLUCOSE, FASTING 262 MG/DL (70-100); LIPASE 61 U/L (73-393); MB/CK RELATIVE INDEX 1.22 (< OR =4); NT-PRO BNP 360 PG/ML (<125); POTASSIUM SERUM 3.9 MEQ/L (3.5-5.1); SODIUM LEVEL 137 MEQ/L (136-145); THYROID STIMULATING HORMONE 0.768 uIU/ML (0.358-3.740); TOTAL PROTEIN 6.8 GM/DL (6.4-8.2); TROPONIN I < 0.02 NG/ML (< 0.10)
[2020-05-18] MEDS ORDERED: HumaLOG INSULIN (NovoLOG) PER UNIT SC SCH (21:00)
[2020-05-18 23:11] LABS: CK-MB VALUE MASS 3.5 NG/ML (<3.6); CPK CREATINE PHOSPHOKINASE 300 U/L (26-192); MB/CK RELATIVE INDEX 1.17 (< OR =4); TROPONIN I < 0.02 NG/ML (< 0.10)
[2020-05-18] MEDS ORDERED: IPRATROPIUM 0.5MG/ALBUTEROL 2.5MG INH SOL UD 3ML (DUONEB) NEB ONE (23:25)
[2020-05-19] MEDS ORDERED: DEXTROSE 50% 50 ML SYRINGE IV PRN (00:10)
[2020-05-19] MEDS ORDERED: GLUCAGON INJ 1MG VIAL SC PRN (00:10)
[2020-05-19] MEDS ORDERED: GLUCOSE 4GM CHEW TABLET PO PRN (00:10)
[2020-05-19 00:17] LABS: RSV AMPLIFICATION NEGATIVE (NEGATIVE)
[2020-05-19] MEDS ORDERED: VITMTA PO (00:32)
[2020-05-19] MEDS ORDERED: NORCO, ANEXSIA 5/325MG TABLET (HYDROcodone/ACETAMINOPHEN) PO PRN (01:20)
[2020-05-19] MEDS ORDERED: ALBUTEROL 90 MCG/ACT 8GM HFA INHALER INH PRN (01:20)
[2020-05-19] MEDS ORDERED: MOM 30ML SUSPENSION UDC PO PRN (01:20)
[2020-05-19] MEDS ORDERED: SUCRALFATE SUSP 1GM/10ML UD PO ONE (01:45)
[2020-05-19] MEDS ORDERED: PANTOPRAZOLE 40MG VIAL (C9113 PER 1) IV ONE (01:45)
[2020-05-19 02:00] VITALS: BP 139/60
--- NOTE | 2020-05-19 02:18 | HPEPDOC ---
[facility] Medical History & Physical Date of Admission May 19, 2020 Date of Service: May 19, 2020 History and Physical CHIEF COMPLAINT: "Sharp pain in the middle of my chest for 5 weeks" on and off HISTORY OF PRESENT ILLNESS: 69-year-old female recently admitted for congestive heart failure exacerbation, presents to the emergency room with 5 week history of persistent intermittent sharp stabbing pain in the substernal area radiating to the back that she's had for the past 5 weeks, better when she lays down, still on her back, worse when she moves around, unchanged by food, nonpleuritic, without accompanying diaphore sis, feeling of impending doom, radiation up her neck or down the arm, hematemesis, bright red blood per rectum, coffee-ground emesis, or history of gastritis, esophagitis in the past, unalleviated by Maalox and aspirin. She denies any nausea, vomiting, abdominal pain aversion to food, chest heaviness, tightness, palpitations, lightheadedness, dizziness, but admits to having shortness of breath without weight gain since hospital discharge. In the emergency room. Troponin was negative. EKG had no acute ST-T wave changes, sinus rhythm, ventricular rate is 65 with LVH. Chest x-ray had no widen ed mediastinum. Prior CT chest showed no aortic aneurysm. Hospitalist was asked to admit the patient for further evaluation of the patient's atypical chest pain. PAST MEDICAL HISTORY: Diastolic congestive heart failure , ejection fraction 75-80% on 2-D echo. 05/07/2020, read by Dr. Tobi Lovelace, cor pulmonale, hypokalemia, hypomagnesemia, chronic kidney disease stage III, diabetes with neuropathy, COPD, obstructive sleep apnea, morbid obesity, severe pulmonary hypertension, bilateral pulmonary embolism, DVT, restless leg, hypertension, gastroesophageal reflux disease, depression, anxiety, hyperlipidemia, LVH, vitamin D deficiency, allergic rhinitis, osteoarthritis of bilateral knees PAST SURGICAL HISTORY: Back surgery 1970s, right arm fatty tumor removal, partial hysterectomy, right rib removal due to cancer SOCIAL HISTORY: Patient lives at [facility] assisted living, former smoking, denies alcohol use, recreational drug use. Retired. full code FAMILY HISTORY: Father colon cancer. Mother , rheumatoid arthritis. Maternal grandfather unspecified heart disease. Maternal aunts. Rheumatoid arthritis ALLERGIES: Please see below. REVIEW OF SYSTEMS: 10 point review of system negative aside from positive findings on HPI HOME MEDICATIONS: Please see below. PHYSICAL EXAMINATION: VITAL SIGNS: See below GENERAL APPEARANCE: Awake, alert, oriented 3, answering questions appropriately without conversational dyspnea pallor, icterus or cyanosis HEENT: No JVD, no thyromegaly, no cervical lymphadenopathy. Pupils equally round, reactive to light and accommodation. Extra muscles are intact. No carotid bruit or stridor CARDIOVASCULAR: S1, S2, regular rate, rhythm, slightly displaced point of maximal impulse. No murmurs noted LUNGS: Diminished air entry is equal bilaterally ABDOMEN: Positive bowel sounds 4 quadrants, soft, nontender, nondistended, no rebound, guarding, hepatosplenomegaly or abdominal bruit noted EXTREMITIES: No cyanosis or clubbing. Positive edema LABORATORY DATA: See below. IMAGING: see below MICROBIOLOGY: Please see below. ASSESSMENT/PLAN: 69-year-old female recently admitted for congestive heart failure exacerbation, presents to the emergency room with 5 week history of persistent intermittent sharp stabbing pain in the substernal area radiating to the back that she's had for the past 5 weeks, better when she lays down, still on her back, worse when she moves around, unchanged by food, nonpleuritic, without accompanying diaphoresis, feeling of impending doom, radiation up her neck or down the arm, hematemesis, bright red blood per rectum, coffee-ground emesis, or history of gastritis, esophagitis in the past, unalleviated by Maalox and aspirin. She denies any nausea, vomiting, abdominal pain aversion to food, chest heaviness, tightness, palpitations, lightheadedness, dizziness, but admits to having shortness of breath without weight gain since hospital discharge. In the emergency room. Troponin was negative. EKG had no acute ST-T wave changes, sinus rhythm, ventricular rate is 65 with LVH. Chest x-ray had no widened mediastinum. Prior CT chest showed no aortic aneurysm. Hospitalist was asked to admit the patient for further evaluation of the patient's atypical chest pain. Atypical chest pain -Cycle cardiac markers every 6 hourly. Continue all home medications. Trial of PPI and Carafate. Nothing by mouth for upper GI series to rule out gastritis and peptic ulcer disease. Prior CT chest shows no evidence of aortic aneurysm. Patient is compliant with her anticoagulation due to history of PE, DVT in the past. She does not have alarm symptoms to suggest an emergent need for EGD suggest acute upper GI bleed with hematemesis, coffee-ground emesis, weight loss, odynophagia, or dysphagia. Patient has no history of trauma to suggest musculoskeletal pain. She has history of hiatal hernia and her Prilosec will be changed to Protonix 40 twice a day for now. Diastolic congestive heart failure - ejection fraction 75-80% on 2-D echo. 05/07/2020, read by Dr. Tobi Lovelace, cor pulmonale, -Despite lower extremity edema, patient appears to be euvolemic. Continue with 2 L fluid restriction strict I's and O's, daily weights, and resume all diuretics and home medications chronic kidney disease stage III -At baseline creatinine. Avoid nephrotoxins renally dose all medications and monitor I's and O's, daily weights and respiratory status diabetes with neuropathy -On consistent carbohydrate diet, sliding scale with coverage. Fingersticks every before meals and at bedtime resume all home medications COPD -Compensated. No signs of wheezing on exam. Resume home inhalers obstructive sleep apnea, morbid obesity, BMI 43.8 -Complicating care. severe pulmonary hypertension -Complicating care h/o bilateral pulmonary embolism, DVT -Compliant with anticoagulation restless leg -Chronic hypertension -Resumed on home medications gastroesophageal reflux disease -Change Prilosec to Protonix 40 twice a day and Carafate until upper GI series to rule out peptic ulcer disease depression, anxiety -Chronic., No acute suicidal or homicidal ideation hyperlipidemia -Chronic. Resume home meds CODE STATUS: Full code Diet: npo for upper GI series . May resume Consistent carbohydrate, 2 g sodium after upper GI series DVT prophylaxis: On chronic anticoagulation. Vital Signs Vital Signs Date Time Temp Pulse Resp B/P (MAP) Pulse Ox O2 Delivery O2 Flow Rate FiO2 05/18/20 22:34 67 98 05/18/20 22:15 16 163/77 (105) 05/18/20 17:20 97.9 Room Air Laboratory Data Labs 24H Laboratory Tests 2 05/18/20 17:35: Immature Granulocyte % (Auto) 0.3, Neutrophils (%) (Auto) 63.9, Lymphocytes (%) (Auto) 25.4, Monocytes (%) (Auto) 7.3, Eosinophils (%) (Auto) 2.7, Basophils (%) (Auto) 0.4, Neutrophils # (Auto) 4.4, Lymphocytes # (Auto) 1.8, Monocytes # (Auto) 0.5, Eosinophils # (Auto) 0.2, Basophils # (Auto) 0.0, Nucleated Red Blood Cells % (auto) 0.0, Prothrombin Time 14.0, Prothromb Time International Ratio 1.06, Activated Partial Thromboplast Time 28.1, Anion Gap 6L, Glomerular Filtration Rate 42.2L, Calcium Level 9.1, Total Bilirubin 0.3, Direct Bilirubin < 0.1, Aspartate Amino Transf (AST/SGOT) 32, Alanine Aminotransferase (ALT/SGPT) 51, Alkaline Phosphatase 113, Total Creatine Kinase 362H, Creatine Kinase MB 4.4H, Creatine Kinase MB Relative Index 1.22, Troponin I < 0.02, YZ-Ddv-Y-Type Natriuretic Peptide 360H, Total Protein 6.8, Albumin 3.7, Albumin/Globulin Ratio 1.2, Lipase 61L, Thyroid Stimulating Hormone (TSH) 0.768 05/18/20 22:17: Total Creatine Kinase 300H, Creatine Kinase MB 3.5, Creatine Kinase MB Relative Index 1.17, Troponin I < 0.02 05/18/20 23:29: CBC/BMP Laboratory Tests 05/18/20 17:35 Home Medications Scheduled Acetaminophen (Acetaminophen ER) 650 Mg Tablet.er, 650 MG PO BID Amlodipine Besylate (Amlodipine Besylate) 5 Mg Tablet, 5 MG PO DAILY Ammonium Lactate (Ammonium Lactate) 12% Cream..g., 1 APLCT TOP QAM APPLY TO FEET PRIOR TO ARIK STOCKINGS Apixaban (Eliquis) 5 Mg Tablet, 5 MG PO BID Chlorthalidone (Chlorthalidone) 25 Mg Tablet, 25 MG PO DAILY Cholecalciferol (Vitamin D3) (Vitamin D3) 1,000 Unit Tablet, 2,000 UNITS PO DAILY TAKES AT NOON Diclofenac Sodium (Voltaren) 100 Gm Gel..gram., 4 GM TOP TID APPLY TO HANDS Duloxetine Hcl (Cymbalta) 60 Mg Capsule.dr, 60 MG PO BID Fluticasone Propionate (Fluticasone Propionate) 50 Mcg/Act Spr, 2 SPRAY NA DAILY Icosapent Ethyl (Vascepa) 1 Gm Capsule, 2 GM PO BID 0800/1700 Insulin Aspart (Novolog Flexpen) 100 Unit/1 Ml Insuln.pen, 1 DOSE SC QPM TAKES AT 1700, PATIENT SPECIFIC SLIDING SCALE : 151-200=20U, 201-250=22U, 251-300=24U, 301-350=26U, 351-400=28U, 401-450=30U, >450=32U Insulin Aspart (Novolog Flexpen) 100 Unit/1 Ml Insuln.pen, 1 DOSE SC BID 0800, 1200, PATIENT SPECIFIC SLIDING SCALE: 151-200=24U, 201-250=27U, 251- 300=30U, 301-350=33U, 351-400=36U, 401-450=39U, >450=42U Insulin Glargine,Hum.rec.anlog (Lantus Solostar) 100 Unit/1 Ml Insuln.pen, 40 UNITS SC QHS Insulin Glargine,Hum.rec.anlog (Lantus Solostar) 100 Unit/1 Ml Insuln.pen, 74 UNITS SC QAM Liraglutide (Victoza 2-Anthony) 0.6 Mg/0.1 Ml Pen.injctr, 1.2 MG SC QPM TAKES AT 1600 Losartan Potassium (Losartan Potassium) 50 Mg Tablet, 50 MG PO QHS Multivitamins (Thera M Plus Tablet) 1 Each Tablet, 1 TAB PO DAILY Omeprazole (Omeprazole) 40 Mg Capsule.dr, 40 MG PO DAILY Potassium Chloride (Potassium Chloride) 20 Meq Tablet.er, 20 MEQ PO DAILY Pregabalin (Pregabalin) 300 Mg Capsule, 300 MG PO BID Salmeterol/Fluticasone (Advair 100-50 Diskus) 1 Each Blst.w.dev, 1 PUFF INH BID Scheduled PRN Acetaminophen (Acetaminophen) 325 Mg Tablet, 650 MG PO Q4H PRN for PAIN Albuterol Sulf (Albuterol Sulfate) 2.5 Mg/3 Ml Vial.neb, 2.5 MG INH Q4H PRN for SHORTNESS OF BREATH Albuterol Sulfate (Proair Hfa) 8.5 Gm Hfa.aer.ad, 2 PUFF INH Q4H PRN for SHORTNESS OF BREATH Hydrocodone/Acetaminophen (Hydrocodone-Acetamin 5-325 mg) 1 Each Tablet, 1 TAB PO Q6H PRN for PAIN Magnesium Hydroxide (Milk of Magnesia) 400 Mg/5 Ml Oral.susp, 10 ML PO DAILY PRN for CONSTIPATION Allergies Coded Allergies: TAPE (Verified Allergy, Intermediate, NYLON TAPE CAUSES HIVES PER 09/09/03, 05/02/19) latex (Verified Allergy, Mild, RASH, 05/05/20) ibuprofen (Verified Adverse Reaction, Intermediate, BLEEDING, CONSTIPATION, 05/02/19) metoprolol (Verified Adverse Reaction, Intermediate, LOWERS BLOOD PRESSURE TOO MUCH, 05/02/19) LOWERS BLOOD PRESSURE TOO MUCH Quinolones (Verified Adverse Reaction, Mild, DIZZINESS, 05/02/19) morphine (Verified Adverse Reaction, Mild, ITCHING, 05/05/20) A-FIB/CHADSVASC A-FIB History Current/History of A-Fib/PAF?: No Current PO Anticoag Therapy: No Age/Risk Factor Scoring CHADSVASC: CHADSVASC Response (Comments) Value Age Risk Factor Age 65-74 years old 1 Gender Risk Factor Female 1 Hx of CHF Yes 1 Hx of HTN Yes 1 Hx of Stroke/TIA/or VTE No 0 Hx of Diabetes Yes 1 Hx of Vascular Disease No 0 Total 5 BETSY MARTINEZ MD May 19, 2020 00:09
[2020-05-19] MEDS: APIXABAN 5 MG TAB (ELIQUIS) PO SCH ×3 (02:31→20:31)
[2020-05-19] MEDS: DULoxetine 30 MG CAP (CYMBALTA) PO SCH ×3 (02:31→20:31)
[2020-05-19] MEDS: ACETAMINOPHEN 650MG ER TAB (TYLENOL ARTHRITIS) PO SCH ×3 (02:31→20:31)
[2020-05-19] MEDS: LEVEMIR (INSULIN DETEMIR) 1 UNITS/0.01ML SC SCH ×3 (02:32→20:32)
[2020-05-19] MEDS: LOSARTAN 50MG TABLET PO SCH ×2 (02:32→20:31)
[2020-05-19] MEDS: HumaLOG INSULIN (NovoLOG) PER UNIT SC SCH ×4 (02:33→18:00)
[2020-05-19 05:51] LABS: HEMATOCRIT 33.9 % (36.0-47.0); HEMOGLOBIN 11.2 g/dl (12.0-15.5); MEAN CORPUSCULAR HEMOGLOBIN 28.2 pg (27.0-33.0); MEAN CORPUSCULAR VOLUME 85.4 fl (80.0-96.0); PLATELET COUNT, AUTOMATED 206 10^3/uL (150-450); RED BLOOD COUNT 3.97 10^6/uL (4.00-5.40); WHITE BLOOD COUNT 4.3 10^3/uL (4.0-10.0)
[2020-05-19 06:00] VITALS: BP 151/83
[2020-05-19 06:54] LABS: BLOOD UREA NITROGEN 20 MG/DL (7-18); CALCIUM LEVEL 8.7 MG/DL (8.8-10.2); CARBON DIOXIDE LEVEL 31 MEQ/L (21-32); CHLORIDE LEVEL 106 MEQ/L (98-107); CK-MB VALUE MASS 3.3 NG/ML (<3.6); CPK CREATINE PHOSPHOKINASE 258 U/L (26-192); CREATININE FOR GFR 1.02 MG/DL (0.55-1.30); GLOMERULAR FILTRATION RATE 57.4 (>45); GLUCOSE, FASTING 163 MG/DL (70-100); MAGNESIUM LEVEL 1.8 MG/DL (1.8-2.4); MB/CK RELATIVE INDEX 1.28 (< OR =4); POTASSIUM SERUM 3.5 MEQ/L (3.5-5.1); SODIUM LEVEL 142 MEQ/L (136-145); TROPONIN I < 0.02 NG/ML (< 0.10)
--- NOTE | 2020-05-19 07:11 | ECGEPIP ---
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
--- NOTE | 2020-05-19 07:17 | ECGEPIP ---
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
[2020-05-19] MEDS ORDERED: HumaLOG INSULIN (NovoLOG) PER UNIT SC SCH ×2 (07:30→21:00)
[2020-05-19] MEDS: amLODIPine 5 MG TAB PO SCH (09:00)
[2020-05-19] MEDS: ATORVASTATIN 20 MG TAB PO SCH (09:00)
[2020-05-19] MEDS ORDERED: OMEPRAZOLE 20 MG CAP PO SCH (09:00)
[2020-05-19] MEDS ORDERED: FLUBLOK(EGG FREE)(QUAD)INFLUENZA VACC 0.5ML SYRINGE 18YRS & OLDER IM ONE (09:00)
[2020-05-19] MEDS ORDERED: PANTOPRAZOLE 40MG VIAL (C9113 PER 1) IV SCH (09:00)
[2020-05-19] MEDS: CHLORTHALIDONE 25 MG TAB PO SCH (09:00)
[2020-05-19] MEDS: SUCRALFATE SUSP 1GM/10ML UD PO SCH ×4 (09:13→20:30)
[2020-05-19] MEDS: POTASSIUM CHLORIDE 10 MEQ SR TABLET PO SCH (09:14)
[2020-05-19] MEDS: MULTIVITAMINS/MINERALS THERAP 1 TAB PO SCH (09:14)
[2020-05-19] MEDS: FLUTICASONE PROP 0.05% NASAL SPRAY 16 GM (FLONASE) SCH (09:16)
[2020-05-19] MEDS ORDERED: NITROGLYCERIN 0.4 MG SUBL TABLET SL PRN (10:20)
--- NOTE | 2020-05-19 10:37 | IPNPDOC ---
Subjective Date Seen The patient was seen on 05/19/20. Subjective Chief Complaint/HPI Subjective: Patient is seen at bedside morning. Patient states that her chest pain has resolved and pain is controlled. Patient states that she usually gets these chest pain that's sharp and stabbing in nature, as well as chest heaviness when she overexerts herself. She states that it lasts about 40 minutes per episode and the pain is alleviated when she sits down and rests. She denies any chest pain currently, no shortness of breath, no abdominal discomfort. No nausea, vomiting, no episodes of syncope, no lower extremity edema has worsened /deviated from her baseline Objective: VITAL SIGNS: Please See below GENERAL: Obese female, NAD, sitting comfortably in bed HEENT: NC/AT, EOMI CARDIOVASCULAR: +S1S2, RRR, no murmur, gallops or rubs LUNGS: CTA B/L ABDOMEN: Protuberant abdomen,soft, NT, +BS EXTREMITIES: Trace edema bilateral extremities NEUROLOGICAL: no gross focal deficits Psych: Alert, awake, oriented to person, place, appropriate mood and affect Assessment and Plan: 69-year-old female recently admitted for heart failure with preserved ejection fraction, presents to the emergency room with a 5 week history of persistent i ntermittent sharp stabbing substernal chest pain radiating to the back. The pain is exacerbated with exertion and alleviated with rest/laying down. The pain is unchanged with food, and it's non-pleuritic nature without any associating episodes of syncope. She's tried Maalox and ASA without any relief. In the ER, her first set of troponin and EKG were within normal limits. No acute ST-T wave changes, there is sinus rhythm, ventricular rate of 65 and LVH.. X-ray of chest within normal limits. Patient is admitted under the hospitalist service for chest pain, rule out ACS. #Atypical chest pain - Troponins 3 negative - EKG normal sinus rhythm, rate 85 with LVH, no acute ST-T wave changes. EKG to 6 hour monitoring - PTT, INR within normal limits; TSH within normal limits; lipid profile pending - Will start on atorvastatin 20mg PO daily and will monitor for side effects - Pending upper GI series, rule out PUD - Tylenol for pain - Nitrostat 0.4 mg sublingual every 5 minutes when necessary Chronic Heart failure, preserved ejection fraction (75-80% EF) - Last 2-D echo on 05/07/20 shows cor pulmonale - She has trace lower extremity edema in bilateral extremities. Lungs clear on auscultation. Slight decreased breath sounds bibasilar lobes. - 2 L fluid restriction and continue with strict I's and O's, daily weights #chronic kidney disease stage III - At baseline creatinine. - Avoid nephrotoxins #DM2 with neuropathy -Continue with 40 units Levemir daily at bedtime and lispro for meal coverages - Continue with consistent carb diet plus SSC plus fingersticks before meals, daily at bedtime - Continue with atorvastatin. We will likely need to be DC'd on atorvastatin #Hx COPD -Continue home meds #BERYL -likely has a component of OHS as pat is morbidly obese BMI 48 - complicating care #h/o bilateral pulmonary embolism, DVT - Compliant with anticoagulation - Continue with Eliquis 5 by mouth twice a day #Hypertension - BP 139/60 - Continue amlodipine, losartan, chlorthalidone #GERD -Continue Protonix twice a day and Carafate - Pending upper GI series to rule out PUD hyperlipidemia -Chronic. Resume home meds DVT prophylaxis:eliquis CODE STATUS: Full code Diet: npo for upper GI series . May resume Consistent carbohydrate, 2 g sodium after upper GI series DVT prophylaxis: On chronic anticoagulation. Disposition: - c/w PT and OT - Anticipate DC tomorrow; may require transition to [facility] skilled facility Assessment /Plan Plan/VTE VTE Prophylaxis Ordered?: Yes VS, I&O, 24H, [facility] Vital Signs/I&O Vital Signs Date Time Temp Pulse Resp B/P (MAP) Pulse Ox O2 Delivery O2 Flow Rate FiO2 05/19/20 02:32 139/60 05/19/20 02:00 97.0 66 20 96 Room Air I&O- Last 24 Hours up to 6 AM 05/19/20 06:00 Output Total 0 ml Balance 0 ml Laboratory Data 24H LABS Laboratory Tests 2 05/18/20 17:35: Immature Granulocyte % (Auto) 0.3, Neutrophils (%) (Auto) 63.9, Lymphocytes (%) (Auto) 25.4, Monocytes (%) (Auto) 7.3, Eosinophils (%) (Auto) 2.7, Basophils (%) (Auto) 0.4, Neutrophils # (Auto) 4.4, Lymphocytes # (Auto) 1.8, Monocytes # (Auto) 0.5, Eosinophils # (Auto) 0.2, Basophils # (Auto) 0.0, Nucleated Red Blood Cells % (auto) 0.0, Prothrombin Time 14.0, Prothromb Time International Ratio 1.06, Activated Partial Thromboplast Time 28.1, Anion Gap 6L, Glomerular Filtration Rate 42.2L, Calcium Level 9.1, Total Bilirubin 0.3, Direct Bilirubin < 0.1, Aspartate Amino Transf (AST/SGOT) 32, Alanine Aminotransferase (ALT/SGPT) 51, Alkaline Phosphatase 113, Total Creatine Kinase 362H, Creatine Kinase MB 4.4H, Creatine Kinase MB Relative Index 1.22, Troponin I < 0.02, XW-Cme-I-Type Natriuretic Peptide 360H, Total Protein 6.8, Albumin 3.7, Albumin/Globulin Ratio 1.2, Lipase 61L, Thyroid Stimulating Hormone (TSH) 0.768 05/18/20 22:17: Total Creatine Kinase 300H, Creatine Kinase MB 3.5, Creatine Kinase MB Relative Index 1.17, Troponin I < 0.02 05/18/20 23:29: Coronavirus (COVID-19)(PCR) NEGATIVE, Influenza Type A (RT-PCR) NEGATIVE, Influenza Type B (RT-PCR) NEGATIVE, Respiratory Syncytial Virus (PCR) NEGATIVE 05/19/20 00:58: Bedside Glucose (Misc Panel) 221H 05/19/20 02:12: Bedside Glucose (Misc Panel) 218H 05/19/20 05:38: Nucleated Red Blood Cells % (auto) 0.0, Anion Gap 5L, Glomerular Filtration Rate 57.4, Calcium Level 8.7L, Magnesium Level 1.8, Total Creatine Kinase 258H, Creatine Kinase MB 3.3, Creatine Kinase MB Relative Index 1.28, Troponin I < 0.02 05/19/20 06:30: Bedside Glucose (Misc Panel) 137H CBC/BMP Laboratory Tests 05/18/20 17:35 05/19/20 05:38 GME ATTESTATION GME ATTESTATION My faculty preceptor for this patient encounter was physically present during the encounter and was fully available. All aspects of the patient interview, examination, medical decision making process, and medical care plan development were reviewed and approved by the faculty preceptor. The faculty preceptor is aware and concurs with the plan as stated in the body of this note and will attest to such by his/her cosignature. ATTENDING NOTE I, Lisa Estrella, have independently examined this patient and performed my own physical exam, as well as reviewed the documentation and edited where necessary. I have discussed in detail with the resident / student the findings and plan of treatment as documented by the resident / student and edited their note. I agree with their findings and treatment plan and have edited their documentation. I will continue to follow the patient during this hospital stay. Dipesh Navarro DO May 19, 2020 08:58 LISA ESTRELLA MD May 19, 2020 11:12
--- NOTE | 2020-05-19 10:48 | REP ---
INDICATION: BILIARY COLIC COMPARISON: Correlation with CT dated 11/08/2018 TECHNIQUE: Real time collins scale ultrasound examination using curved array transducer. FINDINGS: Liver is increased in echogenicity and poor through transmission suggesting fatty infiltration corroborated by prior CT dated 2019. No obvious focal hepatic lesion identified. Pancreas is incompletely evaluated due to interposed bowel gas. The gallbladder demonstrates small amount of layering sludge without gallstones, wall thickening, or pericholecystic fluid. No biliary ductal dilatation is appreciated and the common bile duct measures 4.0 mm diameter. Right kidney is normal in reniform shape without hydronephrosis and measures 10.1 x 4.5 x 3.6 cm with a 3 cm lower pole hypoechoic structure consistent with cyst identified on 2019 CT. No ascites in the visualized right upper quadrant. IMPRESSION: Limited examination due to poor through transmission. Hepatosteatosis. Small amount of layering sludge in the gallbladder. 3 cm right renal hypodensity likely cyst and consistent with findings on 2019 CT. <Electronically signed by Hussein Barbosa > 05/19/20 [id number]
[2020-05-19 11:32] LABS: CHOLESTEROL LEVEL 194 MG/DL (<200); CHOLESTEROL RISK RATIO 4.974 (<5); HDL CHOLESTEROL 39 MG/DL (>40); LDL CHOLESTEROL 108 MG/DL (<100); NON-HDL-C 155 MG/DL; TRIGLYCERIDES LEVEL 236 MG/DL (<150)
[2020-05-19] MEDS: VITAMIN D 1,000 INTERNATIONAL UNITS TABLET PO SCH (12:00)
[2020-05-19 15:04] LABS: CK-MB VALUE MASS 3.2 NG/ML (<3.6); CPK CREATINE PHOSPHOKINASE 244 U/L (26-192); MB/CK RELATIVE INDEX 1.31 (< OR =4); TROPONIN I < 0.02 NG/ML (< 0.10)
--- NOTE | 2020-05-19 16:16 | REP ---
INDICATION: atypical chest pain. COMPARISON: None TECHNIQUE: This procedure was performed by Enriqueta Viera [facility], under the direct supervision of Dr. Mota. Images were reviewed with Dr. Mota prior to dictation. Liquid barium was given in the prone oblique position in order to perform a single contrast upper GI examination. Additionally liquid barium was given at the end of the examination in order to perform a small-bowel follow-through. The patient was unable to stand for this procedure, and has extremely limited mobility, making this exam extremely limited. FINDINGS: The slime plant operator helper film shows no organomegaly or pathological masses. The intestinal gas pattern is unremarkable. The oral and pharyngeal stages of deglutition were unremarkable. Esophageal transport is prompt and efficient and there is no evidence of esophagitis, stricture, or mucosal ring. There is a small hiatal hernia. Gastroesophageal reflux was visualized to the level of the laura. The stomach morales are normally outlined. The rugal folds are smooth and regular. There is no gastritis, neoplasm, or ulcerative disease. There is limited visualization of the duodenum, the areas that are visualized appear unremarkable. The visualized portion of the proximal small bowel appears normal in course and caliber. The barium column was followed through the small bowel to the level of the terminal ileum. Small bowel transit time is approximately 230 minutes. During fluoroscopy gentle palpation shows all loops are freely movable and pliable. There is no fixed angulated loops. The small bowel mucosal pattern is normal in course and caliber. There is no transition to suggest a partial small bowel obstruction. Spot filming of the terminal ileum shows is also extremely limited due to small bowel crowding. IMPRESSION: 1. Gastroesophageal reflux to the level of the laura. Small hiatal hernia. No obstruction. 2. Limited exam due to limited mobility of the patient. 1.4 minutes of fluoroscopy time was utilized for this procedure. Some fluoroscopic images are performed with last image hold technology. These images require no additional radiation. <Electronically signed by Enriqueta Viera > 05/19/20 1547 <Electronically signed by Harry Mota > 05/19/20 1615
[2020-05-19] MEDS ORDERED: GI COCKTAIL 50ML BTL(HYOSCYAMINE/MAALOX/LIDOCAINE VISCOUS)(1:3:1) PO ONE (18:00)
[2020-05-19 20:31] VITALS: BP 138/61
[2020-05-19 22:00] VITALS: BP 121/65
[2020-05-19 23:13] LABS: CK-MB VALUE MASS 2.2 NG/ML (<3.6); CPK CREATINE PHOSPHOKINASE 217 U/L (26-192); MB/CK RELATIVE INDEX 1.01 (< OR =4); TROPONIN I < 0.02 NG/ML (< 0.10)
[2020-05-20 06:00] VITALS: BP 112/55
[2020-05-20 06:14] LABS: HEMATOCRIT 35.4 % (36.0-47.0); HEMOGLOBIN 11.3 g/dl (12.0-15.5); MEAN CORPUSCULAR HEMOGLOBIN 27.6 pg (27.0-33.0); MEAN CORPUSCULAR HGB CONC 31.9 g/dl (32.0-36.5); MEAN CORPUSCULAR VOLUME 86.6 fl (80.0-96.0); PLATELET COUNT, AUTOMATED 233 10^3/uL (150-450); RED BLOOD COUNT 4.09 10^6/uL (4.00-5.40); WHITE BLOOD COUNT 4.2 10^3/uL (4.0-10.0)
[2020-05-20 06:33] LABS: CALCIUM LEVEL 8.5 MG/DL (8.8-10.2); CREATININE FOR GFR 1.1 MG/DL (0.55-1.30); GLOMERULAR FILTRATION RATE 52.6 (>45); MAGNESIUM LEVEL 1.7 MG/DL (1.8-2.4); POTASSIUM SERUM 3.3 MEQ/L (3.5-5.1)
[2020-05-20] MEDS ORDERED: MAG SULF 1GM/100ML (MAG RUN) 1 GM in IV 1 EA IV ONE (07:25)
[2020-05-20] MEDS ORDERED: POTASSIUM CHLORIDE 10 MEQ SR TABLET PO ONE (08:00)
[2020-05-20] MEDS ORDERED: PANTOPRAZOLE 40MG TAB (PROTONIX) PO SCH (09:00)
[2020-05-20] MEDS: amLODIPine 5 MG TAB PO SCH (09:00)
[2020-05-20] MEDS: HumaLOG INSULIN (NovoLOG) PER UNIT SC SCH ×2 (09:36→12:33)
[2020-05-20] MEDS: SUCRALFATE SUSP 1GM/10ML UD PO SCH ×2 (09:36→12:32)
[2020-05-20] MEDS: CHLORTHALIDONE 25 MG TAB PO SCH (09:37)
[2020-05-20] MEDS: FLUTICASONE PROP 0.05% NASAL SPRAY 16 GM (FLONASE) SCH (09:37)
[2020-05-20] MEDS: DULoxetine 30 MG CAP (CYMBALTA) PO SCH (09:37)
[2020-05-20] MEDS: LEVEMIR (INSULIN DETEMIR) 1 UNITS/0.01ML SC SCH (09:37)
[2020-05-20] MEDS: APIXABAN 5 MG TAB (ELIQUIS) PO SCH (09:37)
[2020-05-20] MEDS: ATORVASTATIN 20 MG TAB PO SCH (09:37)
[2020-05-20] MEDS: ACETAMINOPHEN 650MG ER TAB (TYLENOL ARTHRITIS) PO SCH (09:38)
[2020-05-20] MEDS: MULTIVITAMINS/MINERALS THERAP 1 TAB PO SCH (09:38)
[2020-05-20] MEDS: POTASSIUM CHLORIDE 10 MEQ SR TABLET PO SCH (09:39)
--- NOTE | 2020-05-20 09:40 | DS.PDOC ---
Discharge Summary General Date of Admission May 18, 2020 at 23:58 Date of Discharge 05/20/20 Attending Physician: LISA ESTRELLA MD Discharge Summary PROCEDURES PERFORMED DURING STAY: [None]. ADMITTING DIAGNOSES: Chest pain, rule out ACS DISCHARGE DIAGNOSES: Chest pain, likely musculoskeletal in nature COMPLICATIONS/CHIEF COMPLAINT: Fall HISTORY OF PRESENT ILLNESS: 69-year-old female recently admitted for congestive heart failure exacerbation, presents to the emergency room with 5 week history of persistent intermittent sharp stabbing pain in the substernal area radiating to the back that she's had for the past 5 weeks, better when she lays down, still on her back, worse when she moves around, unchanged by food, nonpleuritic, without accompanying diaphoresis, feeling of impending doom, radiation up her neck or down the arm, hematemesis, bright red blood per rectum, coffee-ground emesis, or history of gastritis, esophagitis in the past, unalleviated by Maalox and aspirin. She denies any nausea, vomiting, abdominal pain aversion to food, chest heaviness, tightness, palpitations, lightheadedness, dizziness, but admits to having shortness of breath without weight gain since hospital discharge. In the emergency room. Troponin was negative x 4 sets. EKG had no acute ST-T wave changes, sinus rhythm, ventricular rate is 65 with LVH. Chest x-ray had no widened mediastinum. Prior CT chest showed no aortic aneurysm. Hospitalist was asked to admit the patient for further evaluation of the patient's atypical chest pain. HOSPITAL COURSE: 69-year-old female recently admitted for heart failure with preserved ejection fraction, presents to the emergency room with a 5 week history of persistent intermittent sharp stabbing substernal chest pain radiating to the back. The pain is exacerbated with exertion and alleviated with rest/laying down. The pain is unchanged with food, and it's non-pleuritic nature without any associating episodes of syncope. She's tried Maalox and ASA without any relief. In the ER, her first set of troponin and EKG were within normal limits. No acute ST-T wave changes, there is sinus rhythm, ventricular rate of 65 and LVH.. X-ray of chest within normal limits. Patient is admitted under the hospitalist service for chest pain, rule out ACS. #Atypical chest pain - Troponins 3 negative; ckMB WNL on discharge - EKG normal sinus rhythm, rate 85 with LVH, no acute ST-T wave changes. EKG to 6 hour monitoring - PTT, INR within normal limits; TSH within normal limits; lipid profile pending - Atorvastatin 20mg PO daily - Upper GI series- GERD. f/u with GI post hospital discharge - Tylenol for pain - Nitrostat 0.4 mg sublingual every 5 minutes when necessary #Chronic Heart failure, preserved ejection fraction (75-80% EF) - Last 2-D echo on 05/07/20 shows cor pulmonale - She has trace lower extremity edema in bilateral extremities. Lungs clear on auscultation. Slight decreased breath sounds bibasilar lobes. - 2 L fluid restriction and continue with strict I's and O's, daily weights #chronic kidney disease stage III - At baseline creatinine. - Avoid nephrotoxins #DM2 with neuropathy -Continue with 40 units Levemir daily at bedtime and lispro for meal coverages - Continue with consistent carb diet plus SSC plus fingersticks before meals, daily at bedtime - Will be DC'd on atorvastatin 20mg PO daily (started for ACS protocol)- will need to f/u with PCP for dose adjustment. Evidence has shown that high dose statin has mortality benefits for patients with CAD and co-mordities such as DM2 - f/u with pcp #Hx COPD -Continue home meds #BERYL -likely has a component of OHS as pat is morbidly obese BMI 48 - complicating care #h/o bilateral pulmonary embolism, DVT - Compliant with anticoagulation - Continue with Eliquis 5 by mouth twice a day #Hypertension - Continue amlodipine, losartan, chlorthalidone #GERD -Continue Protonix twice a day and Carafate #hyperlipidemia -Chronic. Resume home meds DVT prophylaxis:eliquis CODE STATUS: Full code DISCHARGE MEDICATIONS: Please see below. ALLERGIES: Please see below. PHYSICAL EXAMINATION ON DISCHARGE: VITAL SIGNS: Please see below GENERAL: Awake, alert, oriented 3, obese female HEENT: No JVD,thyromegaly or cervical lymphadenopathy. CARDIOVASCULAR: S1, S2, regular rate, rhythm, slightly displaced point of maximal impulse. No murmurs, gallops or rubs LUNGS: Lungs clear on auscultation ABDOMEN: Protuberant, obese abdomen, nontender, nondistended. No guarding or rebound. Positive bowel sounds 4 quadrants EXTREMITIES: No cyanosis or clubbing. Trace edema in bilateral extremities LABORATORY DATA: Please see below. IMAGING: PROGNOSIS: Fair ACTIVITY: [As tolerated]. DIET: As tolerated DISCHARGE Disposition: SSV (skilled) DISCHARGE INSTRUCTIONS: Please follow up with cardiology within 7 days of hospital discharge Please Follow-up with PCP within 2 weeks of hospital discharge Please follow up with GI within 7 days of discharge Please be compliant with new medications: Atorvastatin 20 mg daily Return to the ER if you experience any problems DISCHARGE CONDITION: Fair TIME SPENT ON DISCHARGE: Greater than 40 minutes. Vital Signs/I&Os Vital Signs Date Time Temp Pulse Resp B/P (MAP) Pulse Ox O2 Delivery O2 Flow Rate FiO2 05/20/20 06:00 97.0 59 20 112/55 (74) 97 Room Air I&O- Last 24 Hours up to 6 AM 05/20/20 05:59 Intake Total 930 ml Output Total 0 ml Balance 930 ml Laboratory Data Labs 24H Laboratory Tests 2 05/19/20 14:13: Total Creatine Kinase 244H, Creatine Kinase MB 3.2, Creatine Kinase MB Relative Index 1.31, Troponin I < 0.02 05/19/20 15:23: Bedside Glucose (Misc Panel) 161H 05/19/20 17:56: Bedside Glucose (Misc Panel) 104 05/19/20 20:18: Bedside Glucose (Misc Panel) 216H 05/19/20 22:34: Total Creatine Kinase 217H, Creatine Kinase MB 2.2, Creatine Kinase MB Relative Index 1.01, Troponin I < 0.02 05/20/20 05:45: Nucleated Red Blood Cells % (auto) 0.0, Anion Gap 4L, Glomerular Filtration Rate 52.6, Calcium Level 8.5L, Magnesium Level 1.7L CBC/BMP Laboratory Tests 05/20/20 05:45 FSBS Laboratory Tests Test 05/19/20 15:23 05/19/20 17:56 05/19/20 20:18 Range/Units Bedside Glucose (Misc Panel) 161 104 216 80-115 MG/DL Discharge Medications Scheduled Acetaminophen (Acetaminophen ER) 650 Mg Tablet.er, 650 MG PO BID, (Reported) Amlodipine Besylate (Amlodipine Besylate) 5 Mg Tablet, 5 MG PO DAILY, (Reported) Ammonium Lactate (Ammonium Lactate) 12% Cream..g., 1 APLCT TOP QAM, (Reported) APPLY TO FEET PRIOR TO ARIK STOCKINGS Apixaban (Eliquis) 5 Mg Tablet, 5 MG PO BID, (Reported) Atorvastatin Calcium (Atorvastatin Calcium) 20 Mg Tablet, 20 MG PO DAILY Chlorthalidone (Chlorthalidone) 25 Mg Tablet, 25 MG PO DAILY, (Reported) Cholecalciferol (Vitamin D3) (Vitamin D3) 1,000 Unit Tablet, 2,000 UNITS PO DAILY, (Reported) TAKES AT NOON Diclofenac Sodium (Voltaren) 100 Gm Gel..gram., 4 GM TOP TID, (Reported) APPLY TO HANDS Duloxetine Hcl (Cymbalta) 60 Mg Capsule.dr, 60 MG PO BID, (Reported) Fluticasone Propionate (Fluticasone Propionate) 50 Mcg/Act Spr, 2 SPRAY NA DAILY, (Reported) Icosapent Ethyl (Vascepa) 1 Gm Capsule, 2 GM PO BID, (Reported) 0800/1700 Insulin Aspart (Novolog Flexpen) 100 Unit/1 Ml Insuln.pen, 1 DOSE SC QPM, (Repor arik) TAKES AT 1700, PATIENT SPECIFIC SLIDING SCALE : 151-200=20U, 201-250=22U, 251-300=24U, 301-350=26U, 351-400=28U, 401-450=30U, >450=32U Insulin Aspart (Novolog Flexpen) 100 Unit/1 Ml Insuln.pen, 1 DOSE SC BID, (Reported) 0800, 1200, PATIENT SPECIFIC SLIDING SCALE: 151-200=24U, 201-250=27U, 251- 300=30U, 301-350=33U, 351-400=36U, 401-450=39U, >450=42U Insulin Glargine,Hum.rec.anlog (Lantus Solostar) 100 Unit/1 Ml Insuln.pen, 40 UNITS SC QHS, (Reported) Insulin Glargine,Hum.rec.anlog (Lantus Solostar) 100 Unit/1 Ml Insuln.pen, 74 UNITS SC QAM, (Reported) Liraglutide (Victoza 2-Anthony) 0.6 Mg/0.1 Ml Pen.injctr, 1.2 MG SC QPM, (Reported) TAKES AT 1600 Losartan Potassium (Losartan Potassium) 50 Mg Tablet, 50 MG PO QHS, (Reported) Multivitamins (Thera M Plus Tablet) 1 Each Tablet, 1 TAB PO DAILY, (Reported) Omeprazole (Omeprazole) 40 Mg Capsule.dr, 40 MG PO DAILY, (Reported) Potassium Chloride (Potassium Chloride) 20 Meq Tablet.er, 20 MEQ PO DAILY, (Reported) Pregabalin (Pregabalin) 300 Mg Capsule, 300 MG PO BID, (Reported) Salmeterol/Fluticasone (Advair 100-50 Diskus) 1 Each Blst.w.dev, 1 PUFF INH BID, (Reported) Scheduled PRN Acetaminophen (Acetaminophen) 325 Mg Tablet, 650 MG PO Q4H PRN for PAIN, (Reported) Albuterol Sulf (Albuterol Sulfate) 2.5 Mg/3 Ml Vial.neb, 2.5 MG INH Q4H PRN for SHORTNESS OF BREATH, (Reported) Albuterol Sulfate (Proair Hfa) 8.5 Gm Hfa.aer.ad, 2 PUFF INH Q4H PRN for SHORTNESS OF BREATH, (Reported) Hydrocodone/Acetaminophen (Hydrocodone-Acetamin 5-325 mg) 1 Each Tablet, 1 TAB PO Q6H PRN for PAIN, (Reported) Magnesium Hydroxide (Milk of Magnesia) 400 Mg/5 Ml Oral.susp, 10 ML PO DAILY PRN for CONSTIPATION, (Reported) Allergies Coded Allergies: TAPE (Verified Allergy, Intermediate, NYLON TAPE CAUSES HIVES PER 09/09/03, 05/02/19) latex (Verified Allergy, Mild, RASH, 05/05/20) ibuprofen (Verified Adverse Reaction, Intermediate, BLEEDING, CONSTIPATION, 05/02/19) metoprolol (Verified Adverse Reaction, Intermediate, LOWERS BLOOD PRESSURE TOO MUCH, 05/02/19) LOWERS BLOOD PRESSURE TOO MUCH Quinolones (Verified Adverse Reaction, Mild, DIZZINESS, 05/02/19) morphine (Verified Adverse Reaction, Mild, ITCHING, 05/05/20) GME ATTESTATION GME ATTESTATION My faculty preceptor for this patient encounter was physically present during the encounter and was fully available. All aspects of the patient interview, examination, medical decision making process, and medical care plan development were reviewed and approved by the faculty preceptor. The faculty preceptor is aware and concurs with the plan as stated in the body of this note and will attest to such by his/her cosignature. ATTENDING NOTE I, Lisa Estrella, have independently examined this patient and performed my own physical exam, as well as reviewed the documentation and edited where necessary. I have discussed in detail with the resident / student the findings and plan of treatment as documented by the resident / student and edited their note. I agree with their findings and treatment plan and have edited their documentation. I will continue to follow the patient during this hospital stay. Time spent on discharge 35 minutes Dipesh Navarro DO May 20, 2020 08:12 LISA ESTRELLA MD May 20, 2020 10:27
[2020-05-20] MEDS ORDERED: ATOR1TAB21 PO (09:43)
[2020-05-20] MEDS: VITAMIN D 1,000 INTERNATIONAL UNITS TABLET PO SCH (12:32)
== END 2020-05-20 13:40 | disposition home or self-care (01) ==
LOC: EDSEX 17:03 → M ED 17:03 → EDBD 17:03 → INTOOBSV 23:58 → M ED INP 23:58 → ENRESERV 05-19 01:47 → M MSPAV 05-19 01:56
PROVIDERS: ADMIT General Practice; ATTEND Internal Medicine
DX: R07.89 Other chest pain (principal); I50.32 Chronic diastolic (congestive) heart failure; N18.30 Chronic kidney disease, stage 3 unspecified; E11.40 Type 2 diabetes mellitus with diabetic neuropathy, unspecified; J44.9 Chronic obstructive pulmonary disease, unspecified; G47.33 Obstructive sleep apnea (adult) (pediatric); I12.9 Hypertensive chronic kidney disease with stage 1 through stage 4 chronic kidney disease, or unspecified chronic kidney disease; Z86.711 Personal history of pulmonary embolism; K21.9 Gastro-esophageal reflux disease without esophagitis; E78.49 Other hyperlipidemia; Z79.01 Long term (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 anticoagulants; Z79.4 Long term (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; Z88.8 Allergy status to other drugs, medicaments and biological substances; Z91.040 Latex allergy status; Z88.5 Allergy status to narcotic agent; Z87.891 Personal history of nicotine dependence; E66.01 Morbid (severe) obesity due to excess calories; E87.6 Hypokalemia; F41.9 Anxiety disorder, unspecified; F32.9 Major depressive disorder, single episode, unspecified; E55.9 Vitamin D deficiency, unspecified
CPT/HCPCS: 36415; 71045; 74246; 76705; 80048; 80053; 80061; 82550; 82553; 83690; 83735; 83880; 84443; 84484; 85025; 85027; 85610; 85730; 87631; 90682; 93005; 93041; 94760; 96361; 96374; 96376; 97161; 97165; 99285; C9113; G0008; G0378; J3475; U0002

== ENCOUNTER → 2020-05-18 | Outpatient (REF) | payer MEDICARE, MEDICAID ==
[~2020-05-18] MED LIST changes: +CHLO125TA; +FLUTISP; -FLUTISP NARES; -LANTINJ4; +VITMTA PO
[2020-05-18 18:36] LABS: ALBUMIN 3.5 GM/DL (3.2-5.2); BILIRUBIN,TOTAL 0.3 MG/DL (0.2-1.0); CALCIUM LEVEL 9.2 MG/DL (8.8-10.2); CREATININE FOR GFR 1.31 MG/DL (0.55-1.30); MAGNESIUM LEVEL 1.8 MG/DL (1.8-2.4); POTASSIUM SERUM 3.9 MEQ/L (3.5-5.1); TOTAL PROTEIN 6.6 GM/DL (6.4-8.2)
== END ==
LOC: M SFHCPLAZ 15:39
PROVIDERS: ATTEND Physician Assistant Medical
DX: E83.42 Hypomagnesemia (principal); N18.30 Chronic kidney disease, stage 3 unspecified

== ENCOUNTER → 2020-05-21 | Outpatient (REF) ==
[~2020-05-21] MED LIST changes: +ATOR1TAB21 PO; +CHLO125TA; +VITMTA PO
[2020-05-21 09:30] LABS: CALCIUM LEVEL 9.5 MG/DL (8.8-10.2); CREATININE FOR GFR 1.05 MG/DL (0.55-1.30); GLOMERULAR FILTRATION RATE 55.5 (>45); POTASSIUM SERUM 3.6 MEQ/L (3.5-5.1)
== END ==
LOC: SKLAB2 07:13
DX: E87.6 Hypokalemia (principal)

== ENCOUNTER → 2020-05-25 | Outpatient (REF) | payer MEDICARE, MEDICAID ==
[2020-05-25 10:23] LABS: CALCIUM LEVEL 9.1 MG/DL (8.8-10.2); CREATININE FOR GFR 1.09 MG/DL (0.55-1.30); GLOMERULAR FILTRATION RATE 53.1 (>45); POTASSIUM SERUM 3.7 MEQ/L (3.5-5.1)
== END ==
LOC: SKLAB2 07:47
DX: R42 Dizziness and giddiness (principal)

== ENCOUNTER → 2020-05-27 | Outpatient (REF) | LOC: SKLAB2 09:00 | PROVIDERS: ATTEND Internal Medicine | DX: Z20.822 Contact with and (suspected) exposure to COVID-19 (principal) ==

== ENCOUNTER → 2020-06-02 | Outpatient (REF) | LOC: SKLAB2 14:06 | PROVIDERS: ATTEND Internal Medicine | DX: Z20.822 Contact with and (suspected) exposure to COVID-19 (principal) ==

== ENCOUNTER → 2020-06-11 | Outpatient (CLI) | payer MEDICARE, MEDICAID ==
--- NOTE | 2020-06-11 11:51 | REP ---
INDICATION: E04.1 THYROID NODULE. COMPARISON: CT chest 05/06/2020. TECHNIQUE: Real-time sonographic evaluation of thyroid performed. FINDINGS: Both lobes of the thyroid are enlarged, right lobe measures 6.1 x 2.4 x 1.9 cm and left lobe 6.2 x 2.9 x 2.5 cm. There is a heterogeneous nodule of mixed echogenicity in the right lower pole measuring 1.6 x 0.7 x 1.6 cm. There is a similar appearing predominantly solid heterogeneous nodule of mixed echogenicity, also containing tiny cystic areas, in the left lower pole measuring 2.8 x 2.6 x 1.8 cm. Several subcentimeter hypoechoic nodules and cysts bilaterally are likely of no clinical significance. IMPRESSION: Thyromegaly. Dominant heterogeneous nodule is seen in each lobe. The largest is in the left lower pole with a maximum diameter of 2.8 cm. Utilizing TI-RADS criteria, this is a TR 4 lesion for which ultrasound-guided fine needle aspiration is recommended. I would also recommend sampling of the dominant nodule in the right lower pole. <Electronically signed by Harry Mota > 06/11/20 1148
== END ==
LOC: M WHC 09:04
PROVIDERS: ATTEND Physician Assistant Medical
DX: E01.0 Iodine-deficiency related diffuse (endemic) goiter (principal)

== ENCOUNTER → 2020-06-17 | Outpatient (CLI) | payer MEDICARE, MEDICAID ==
--- NOTE | 2020-06-17 19:16 | REP ---
INDICATION: RT HAND PAIN ? CYST. COMPARISON: None. TECHNIQUE: Multiple sequences obtained in the axial, coronal and sagittal planes. The study is limited due to excessive patient motion on several sequences. FINDINGS: There is an 8 mm well-defined benign cyst in the triquetrum bone. There is a 4 mm subchondral cyst in the base of the 4th proximal phalanx. The osseous structures of the hand demonstrate no evidence of bone marrow edema or occult fracture. The collateral ligaments are not well evaluated but the osseous structures are well-aligned. Flexor and extensor tendons are grossly intact. There is mild fluid surrounding the extensor carpi ulnaris tendon suggesting mild tenosynovitis.. The carpal tunnel region is unremarkable. There is mild fluid in the distal radioulnar joint. No ganglion cyst is seen. IMPRESSION: Well-defined benign cyst triquetrum 8 mm and 4 mm subchondral cyst in the base of the 4th proximal phalanx. Mild fluid surrounding the extensor carpi ulnaris tendon is compatible with mild tenosynovitis. No ganglion cyst. Mild fluid in the distal radioulnar joint. <Electronically signed by Harry Mota > 06/17/20 1622
== END ==
LOC: M PLARAD 14:52
PROVIDERS: ATTEND Physician Assistant
DX: M79.641 Pain in right hand (principal); M71.341 Other bursal cyst, right hand

== ENCOUNTER → 2020-06-24 | Outpatient (CLI) | payer MEDICARE, MEDICAID ==
[~2020-06-24] MED LIST changes: -ACET-838 PO; +ACET32TAB PO
--- NOTE | 2020-06-24 10:43 | REPPI ---
INDICATION: FALL COMPARISON: None. TECHNIQUE: AP and lateral views of the left hand FINDINGS: Generalized age-related degenerative changes are appreciated. No obvious acute fracture or dislocation identified. No subcutaneous emphysema or foreign body. IMPRESSION: Osteopenia and age-related degenerative changes. No obvious acute fracture or dislocation. <Electronically signed by Hussein Barbosa > 06/24/20 1038
--- NOTE | 2020-06-24 10:53 | REPPI ---
INDICATION: FALL COMPARISON: None. TECHNIQUE: AP, lateral, bilateral oblique views left wrist. FINDINGS: Mild age-related osteopenia and generalized age-related degenerative changes noted. The carpal bones appear intact and without evidence for acute fracture or dislocation. Distal radius and ulna appear intact. Small chronic densities adjacent to the lateral radial metaphysis likely chronic. IMPRESSION: No obvious acute fracture or dislocation. <Electronically signed by Hussein Barbosa > 06/24/20 [id number]
--- NOTE | 2020-06-24 10:56 | REPPI ---
INDICATION: FALL COMPARISON: None. TECHNIQUE: AP, lateral, flexion/extension, bilateral oblique, and open-mouth views. FINDINGS: Alignment and lordosis maintained. No acute fracture/compression injury or subluxation. Generalized age-related osteopenia and multifocal degenerative changes include endplate sclerosis, disc space narrowing, and marginal osteophytosis primarily involving C4-5, C5-6, and C6-7. Oblique views demonstrate facet hypertrophy. Open mouth view demonstrates normal C1-C2 articulation and odontoid process. IMPRESSION: Age-related osteopenia and moderate/advanced multifocal degenerative spondylosis. <Electronically signed by Hussein Barbosa > 06/24/20 [id number]
== END ==
LOC: M PLAIMG 09:21
PROVIDERS: ATTEND Physician Assistant Medical
DX: M50.321 Other cervical disc degeneration at C4-C5 level (principal); M50.322 Other cervical disc degeneration at C5-C6 level; M50.323 Other cervical disc degeneration at C6-C7 level; M85.88 Other specified disorders of bone density and structure, other site; W19.XXXA Unspecified fall, initial encounter; E78.2 Mixed hyperlipidemia; I50.33 Acute on chronic diastolic (congestive) heart failure; E11.22 Type 2 diabetes mellitus with diabetic chronic kidney disease

== ENCOUNTER → 2020-06-24 | Outpatient (REF) | payer MEDICARE, MEDICAID ==
[2020-06-24 17:42] LABS: CHOLESTEROL RISK RATIO 2.588 (<5)
[2020-06-25 14:46] LABS: HEMOGLOBIN A1c 9.4 %
== END ==
LOC: M SFHCPLAZ 09:38
PROVIDERS: ATTEND Physician Assistant Medical
DX: E78.2 Mixed hyperlipidemia (principal); I50.33 Acute on chronic diastolic (congestive) heart failure; E11.22 Type 2 diabetes mellitus with diabetic chronic kidney disease

== ENCOUNTER → 2020-07-15 | Outpatient (CLI) | payer MEDICARE, MEDICAID | LOC: M RAD 11:36 | PROVIDERS: ATTEND Physician Assistant | DX: Z53.29 Procedure and treatment not carried out because of patient's decision for other reasons (principal) ==

== ENCOUNTER → 2020-07-30 | Outpatient (CLI) | payer MEDICARE, MEDICAID ==
--- NOTE | 2020-07-30 10:24 | REPMRS ---
Patient History Family history of breast cancer at age 50 or over in maternal aunt, prostate cancer in father. Patient states no breast complaints today. Patient has signed MRS History Sheet. Digital Woman Screen Mammo: July 30, 2020 - Exam #: [id number] Bilateral CC and MLO view(s) were taken. Technologist: Irasema Schreiber Technologist Prior study comparison: July 31, 2019, bilateral digital woman screen mammo performed at [facility]. October 20, 2016, bilateral digital woman screen mammo, performed at [facility]. October 06, 2014, digital woman screen mammo performed at [facility]. FINDINGS: There are scattered fibroglandular densities. The Volpara volumetric breast density category is:B. There has been no change in the appearance of the mammogram from the prior studies. There is a mild amount of scattered fibroglandular density which is fairly symmetric. There is no interval development of dominant mass, architectural distortion, or grouped microcalcification suggestive of malignancy. 3-D tomosynthesis shows no additional findings. Assessment: BI-RADS/ACR category 1 mammogram. Negative Mammogram. Recommendation Routine screening mammogram of both breasts in 1 year (for women over age 40). [facility] Lifetime Breast Cancer Risk is estimated at 6.6 %. This mammogram was interpreted with the aid of an FDA-approved computer-aided dectection system. Electronically Signed By: Jassi Moran MD 07/30/20 [id number]
== END ==
LOC: M WHC 09:06
PROVIDERS: ATTEND Physician Assistant Medical
DX: Z12.31 Encounter for screening mammogram for malignant neoplasm of breast (principal)

== ENCOUNTER 2020-08-02 09:21 | Emergency (ER) | payer MEDICARE, MEDICAID ==
[~2020-08-02] VITALS: Ht 167.6 cm; Wt 140.9 kg
[~2020-08-02 09:21] MED LIST changes: -FLUTISP; +FLUTISP NARES
[2020-08-02] MEDS ORDERED: PERCOCET 5MG/325MG TAB PO ONE (09:55)
[2020-08-02 10:39] LABS: BASO # 0.1 10^3/uL (0.0-0.2); BASO % 0.6 % (0.0-1.0); EOS # 0.1 10^3/uL (0.0-0.5); EOS % 1.7 % (0.0-3.0); HEMATOCRIT 36.4 % (36.0-47.0); HEMOGLOBIN 11.9 g/dl (12.0-15.5); LYMPH # 2.4 10^3/uL (1.5-5.0); LYMPH % 29.2 % (24.0-44.0); MEAN CORPUSCULAR HEMOGLOBIN 28.3 pg (27.0-33.0); MEAN CORPUSCULAR HGB CONC 32.7 g/dl (32.0-36.5); MEAN CORPUSCULAR VOLUME 86.5 fl (80.0-96.0); MONO # 0.7 10^3/uL (0.0-0.8); MONO % 8.2 % (2.0-8.0); NEUTROPHILS # 4.8 10^3/uL (1.5-8.5); NEUTROPHILS % 60.1 % (36.0-66.0); PLATELET COUNT, AUTOMATED 245 10^3/uL (150-450); RED BLOOD COUNT 4.21 10^6/uL (4.00-5.40); WHITE BLOOD COUNT 8.1 10^3/uL (4.0-10.0)
--- NOTE | 2020-08-02 10:48 | REP ---
INDICATION: fall. COMPARISON: Comparison radiographs are from September 28, 2019.. TECHNIQUE: AP view of the pelvis and AP and frogleg views of the left hip are provided. FINDINGS: The bony pelvic ring is intact. No pelvic or sacral fracture is seen. No hip fracture is noted on either side. There is bilateral hip joint osteoarthritis. Tendon insertion site spurring is noted as well. Patient is status post L4-5 laminectomy. IMPRESSION: No fracture or subluxation seen. Bilateral hip joint osteoarthritis. <Electronically signed by Jassi Moran > 08/02/20 1043
--- NOTE | 2020-08-02 10:50 | REP ---
INDICATION: fall. COMPARISON: Comparison right tib fib radiographs are from October 01, 2019.. TECHNIQUE: Nine views, bilateral knee radiographs. FINDINGS: Nine views of the left and right knee demonstrate bilateral patellofemoral osteoarthritic spurring. There is bilateral medial and lateral osteophyte formation, right greater than left. There is no visible fracture or subluxation. Fragmented spurring is seen on the superior margin of each patella.. No fracture or subluxation is seen. No opaque foreign body noted. IMPRESSION: No fracture seen. Moderate osteoarthritis.. <Electronically signed by Jassi Moran > 08/02/20 1044
[2020-08-02] MEDS ORDERED: ATOR1TAB21 PO (11:03)
[2020-08-02] MEDS ORDERED: HUMA100I5 SC ×2 (11:03)
[2020-08-02] MEDS ORDERED: TUMS500C PO (11:03)
[2020-08-02] MEDS ORDERED: DRIS50003 PO (11:03)
[2020-08-02 11:17] LABS: ALBUMIN 3.6 GM/DL (3.2-5.2); BILIRUBIN,TOTAL 0.4 MG/DL (0.2-1.0); CALCIUM LEVEL 9.1 MG/DL (8.8-10.2); CREATININE FOR GFR 1.24 MG/DL (0.55-1.30); GLOMERULAR FILTRATION RATE 45.8 (>45); TOTAL PROTEIN 6.9 GM/DL (6.4-8.2)
[2020-08-02 14:35] VITALS: BP 152/80
== END 2020-08-02 14:48 | disposition home or self-care (01) ==
LOC: EDBD 09:21 → M ED 09:21
DX: Z76.0 Encounter for issue of repeat prescription (principal); M19.90 Unspecified osteoarthritis, unspecified site; J44.9 Chronic obstructive pulmonary disease, unspecified; N18.30 Chronic kidney disease, stage 3 unspecified; I50.9 Heart failure, unspecified; E78.5 Hyperlipidemia, unspecified; K21.9 Gastro-esophageal reflux disease without esophagitis; Z79.899 Other long term (current) drug therapy; Z79.4 Long term (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; Z79.01 Long term (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 anticoagulants; Z88.1 Allergy status to other antibiotic agents; Z88.5 Allergy status to narcotic agent; Z88.8 Allergy status to other drugs, medicaments and biological substances; Z91.040 Latex allergy status; Z91.048 Other nonmedicinal substance allergy status; Z87.891 Personal history of nicotine dependence

== ENCOUNTER 2020-08-04 04:50 | Inpatient (IN) | payer MEDICARE, MEDICAID ==
[~2020-08-04] VITALS: Ht 162.6 cm; Wt 131.3 kg
[~2020-08-04 04:50] MED LIST changes: +TUMS500C PO
[2020-08-04 05:55] LABS: BASO # 0.1 10^3/uL (0.0-0.2); BASO % 0.8 % (0.0-1.0); EOS # 0.2 10^3/uL (0.0-0.5); EOS % 2.6 % (0.0-3.0); HEMATOCRIT 36.7 % (36.0-47.0); LYMPH # 2.4 10^3/uL (1.5-5.0); LYMPH % 32.2 % (24.0-44.0); MEAN CORPUSCULAR HEMOGLOBIN 28.3 pg (27.0-33.0); MEAN CORPUSCULAR HGB CONC 32.7 g/dl (32.0-36.5); MEAN CORPUSCULAR VOLUME 86.6 fl (80.0-96.0); MONO # 0.7 10^3/uL (0.0-0.8); NEUTROPHILS # 4.1 10^3/uL (1.5-8.5); NEUTROPHILS % 55.1 % (36.0-66.0); PLATELET COUNT, AUTOMATED 247 10^3/uL (150-450); RED BLOOD COUNT 4.24 10^6/uL (4.00-5.40); WHITE BLOOD COUNT 7.4 10^3/uL (4.0-10.0)
[2020-08-04 06:06] LABS: INR 1.02; PROTHROMBIN TIME 13.6 SECONDS (12.5-14.3)
[2020-08-04 06:07] LABS: PARTIAL THROMBOPLASTIN TIME 29.9 SECONDS (24.2-38.5)
--- NOTE | 2020-08-04 06:19 | REPVR ---
PROCEDURE INFORMATION: Exam: CT Pelvis Without Contrast; Skeletal Exam date and time: 08/04/2020 4:54 AM Age: 69 years old Clinical indication: Injury or trauma; Fall; Blunt trauma (contusions or hematomas); Does not apply; Pelvic region TECHNIQUE: Imaging protocol: Computed tomography images of the pelvis without contrast. Exam focused on the skeletal structures. Radiation optimization: All CT scans at this facility use at least one of these dose optimization techniques: automated exposure control; mA and/or kV adjustment per patient size (includes targeted exams where dose is matched to clinical indication); or iterative reconstruction. COMPARISON: CT ABD PELVIS W/O CONTRAST 05/09/2019 9:19 AM FINDINGS: Stomach and bowel: Diverticulosis of colon. No evidence of acute diverticulitis. Reproductive: Status post hysterectomy. Bones/joints: Old healed fracture deformity in the coccyx. Degenerative changes in the bilateral sacroiliac joints. Osteoarthritis of the bilateral hips. Status post L4-L5 laminectomy. Multilevel degenerative disc disease and facet arthropathy. Soft tissues: Unremarkable. IMPRESSION: No acute fractures. Electronically signed by: [place] On 08/04/2020 06:18:19 AM
[2020-08-04] MEDS ORDERED: BOOSTRIX/ADACEL VACCINE (DIPHTH/PERTUSS/ACELL/TETANUS) 0.5ML SYR IM ONE (06:25)
--- NOTE | 2020-08-04 06:26 | REPVR ---
PROCEDURE INFORMATION: Exam: CT Head Without Contrast Exam date and time: 08/04/2020 4:54 AM Age: 69 years old Clinical indication: Injury or trauma; Fall; Concussion/head injury TECHNIQUE: Imaging protocol: Computed tomography of the head without contrast. Radiation optimization: All CT scans at this facility use at least one of these dose optimization techniques: automated exposure control; mA and/or kV adjustment per patient size (includes targeted exams where dose is matched to clinical indication); or iterative reconstruction. COMPARISON: CT Head without contrast 05/05/2020 4:25 PM FINDINGS: Brain: Generalized parenchymal atrophy and evidence of microvascular ischemic disease involving periventricular and subcortical white matter bilaterally. Cerebral ventricles: No ventriculomegaly. Bones/joints: Unremarkable. No acute fracture. Paranasal sinuses: Visualized sinuses are unremarkable. No fluid levels. Mastoid air cells: Visualized mastoid air cells are well aerated. Soft tissues: Right periorbital hematoma. IMPRESSION: No acute intracranial pathology. Electronically signed by: [place] On 08/04/2020 06:26:11 AM
--- NOTE | 2020-08-04 06:27 | REPVR ---
PROCEDURE INFORMATION: Exam: CT Maxillofacial Without Contrast Exam date and time: 08/04/2020 4:54 AM Age: 69 years old Clinical indication: Injury or trauma; Fall; Concussion/head injury; Loss of consciousness not known TECHNIQUE: Imaging protocol: Computed tomography images of the face without contrast. Radiation optimization: All CT scans at this facility use at least one of these dose optimization techniques: automated exposure control; mA and/or kV adjustment per patient size (includes targeted exams where dose is matched to clinical indication); or iterative reconstruction. COMPARISON: CT Head without contrast 05/05/2020 4:25 PM FINDINGS: Orbital cavity: Orbits are normal. Globes are unremarkable. Bones/joints: No acute fracture. Paranasal sinuses: Normal. No air-fluid levels. Soft tissues: Right periorbital hematoma. Dental: Patient is edentulous. IMPRESSION: No acute fractures. Electronically signed by: [place] On 08/04/2020 06:27:28 AM
--- NOTE | 2020-08-04 06:31 | REPVR ---
PROCEDURE INFORMATION: Exam: CT Cervical Spine Without Contrast Exam date and time: 08/04/2020 4:54 AM Age: 69 years old Clinical indication: Neck pain; Additional info: Fall TECHNIQUE: Imaging protocol: Computed tomography images of the cervical spine without contrast. Radiation optimization: All CT scans at this facility use at least one of these dose optimization techniques: automated exposure control; mA and/or kV adjustment per patient size (includes targeted exams where dose is matched to clinical indication); or iterative reconstruction. COMPARISON: CT Spine,cervical w/o contrast 09/28/2019 7:25 AM FINDINGS: Bones/joints: No acute fracture. Normal alignment. Discs/Spinal canal/Neural foramina: Multilevel degenerative disease and facet arthropathy of the cervical spine. Stenosis of the spinal canal and neural foramina at several levels. Lungs: Lung apices are normal. Soft tissues: Unremarkable. IMPRESSION: No acute fractures Electronically signed by: [place] On 08/04/2020 06:30:55 AM
--- NOTE | 2020-08-04 06:32 | REPVR ---
PROCEDURE INFORMATION: Exam: XR Chest Exam date and time: 08/04/2020 6:07 AM Age: 69 years old Clinical indication: Other: Syncope; Additional info: Syncope/near-syncope TECHNIQUE: Imaging protocol: XR of the chest. Views: 1 view. COMPARISON: [facility] PORTABLE CHEST X-RAY 05/18/2020 5:28 PM FINDINGS: Lungs: Mild coarse bilateral perihilar reticulonodular opacities.. No consolidation. Pleural spaces: Unremarkable. No pleural effusion. No pneumothorax. Heart/Mediastinum: Mild cardiomegaly. Bones/joints: Unremarkable. IMPRESSION: No acute cardiopulmonary pathology. Electronically signed by: [place] On 08/04/2020 06:32:19 AM
--- NOTE | 2020-08-04 06:33 | REPVR ---
PROCEDURE INFORMATION: Exam: XR Left Hip Exam date and time: 08/04/2020 6:07 AM Age: 69 years old Clinical indication: Hip pain; Left hip; Additional info: Fall TECHNIQUE: Imaging protocol: XR Left hip. Views: 2 or 3 views hip with pelvis when performed. COMPARISON: CT Pelvis without contrast 08/04/2020 5:29 AM FINDINGS: Bones/joints: Degenerative changes. Soft tissues: Unremarkable. IMPRESSION: No acute fractures. Electronically signed by: [place] On 08/04/2020 06:32:49 AM
[2020-08-04] MEDS ORDERED: ACETAMINOPHEN TAB 650MG DOSE (2X325MG) PO ONE (06:45)
[2020-08-04] MEDS ORDERED: LOSARTAN 50MG TABLET PO ONE (07:15)
[2020-08-04] MEDS ORDERED: amLODIPine 5 MG TAB PO ONE (07:15)
[2020-08-04] MEDS ORDERED: HYDROcodone/APAP LIQUID 7.5-325MG 15ML UDC (LORTAB ELIXIR) PO ONE (07:15)
[2020-08-04] MEDS ORDERED: PREGABALIN 100 MG CAP (LYRICA) PO ONE (07:15)
--- NOTE | 2020-08-04 07:40 | REPVR ---
PROCEDURE INFORMATION: Exam: CT Lumbar Spine Without Contrast Exam date and time: 08/04/2020 7:09 AM Age: 69 years old Clinical indication: Low back pain; Additional info: S/P fall TECHNIQUE: Imaging protocol: Computed tomography images of the lumbar spine without contrast. Radiation optimization: All CT scans at this facility use at least one of these dose optimization techniques: automated exposure control; mA and/or kV adjustment per patient size (includes targeted exams where dose is matched to clinical indication); or iterative reconstruction. COMPARISON: MRI-Spine, L.S. without con 10/01/2019 7:44 PM FINDINGS: Vertebrae: Osteopenia. Status post status post L5-S1 laminectomy. Discs/Spinal canal/Neural foramina: Severe multilevel degenerative disease and facet arthropathy. Stenosis of the spinal canal and neural foramina several levels most severe at L3-L4. Lungs: Mild bilateral dependent atelectasis. Mediastinum: Small hiatal hernia. Stomach and bowel: Diverticulosis of the visualized colon. Vasculature: Severe atherosclerotic disease. Soft tissues: Unremarkable. IMPRESSION: No acute fractures. Electronically signed by: [place] On 08/04/2020 07:40:41 AM
--- NOTE | 2020-08-04 07:44 | REP ---
INDICATION: fall COMPARISON: None. TECHNIQUE: AP and lateral views of the right and left knee. FINDINGS: Advanced bilateral tricompartmental osteoarthritic degenerative changes noted. No evidence for acute fracture or dislocation. No obvious effusion. IMPRESSION: Advanced tricompartmental osteoarthritic degenerative changes bilaterally. No acute fracture or dislocation. <Electronically signed by Hussein Barbosa > 08/04/20 0727
[2020-08-04] MEDS ORDERED: PREG150C PO (07:52)
[2020-08-04 07:55] LABS: BLOOD UREA NITROGEN 24 MG/DL (7-18); CARBON DIOXIDE LEVEL 27 MEQ/L (21-32); CHLORIDE LEVEL 102 MEQ/L (98-107); CK-MB VALUE MASS 9.4 NG/ML (<3.6); CPK CREATINE PHOSPHOKINASE 628 U/L (26-192); CREATININE FOR GFR 1.08 MG/DL (0.55-1.30); GLOMERULAR FILTRATION RATE 53.7 (>45); GLUCOSE, FASTING 211 MG/DL (70-100); SODIUM LEVEL 137 MEQ/L (136-145); TROPONIN I < 0.02 NG/ML (< 0.10)
[2020-08-04] MEDS ORDERED: PREGABALIN 75 MG CAP(LYRICA) PO ONE (08:00)
[2020-08-04] MEDS ORDERED: GLUCOSE 4GM CHEW TABLET PO PRN (13:20)
[2020-08-04] MEDS ORDERED: GLUCAGON INJ 1MG VIAL SC PRN (13:20)
[2020-08-04] MEDS ORDERED: DEXTROSE 50% 50 ML SYRINGE IV PRN (13:20)
[2020-08-04] MEDS ORDERED: ACETAMINOPHEN TAB 650MG DOSE (2X325MG) PO PRN (13:20)
[2020-08-04] MEDS ORDERED: VITA1CAP25 PO (13:22)
[2020-08-04] MEDS ORDERED: MOM 30ML SUSPENSION UDC PO PRN (13:45)
[2020-08-04 14:50] LABS: RSV AMPLIFICATION NEGATIVE (NEGATIVE)
[2020-08-04 16:05] VITALS: BP 133/62
--- NOTE | 2020-08-04 16:06 | HPEPDOC ---
[facility] Medical History & Physical Date of Admission August 04, 2020 Date of Service: August 04, 2020 Attending Physician: CRISTIANO WOODY MD History and Physical CHIEF COMPLAINT: Mechanical fall HISTORY OF PRESENT ILLNESS: 69 year old W with HTN, IDDM, history of VTEs on eliquis, GERD, osteoarthritis, HLD, HFpEF, resident of [facility] who was brought to the ED after suffering a mechanical fall while trying to get up and walk and became dizzy and fell without LOC, noted seizure like activity, corroborated prodrome except for the dizziness, without acute chest pain, palpitations, dyspnea, or recent history of fever, chills, nausea, emesis, headaches, abdominal pain, diarrhea or constipation. In the ED, she was hemodynamically stable and mildly hypoxemic requiring 2L NC and saturating 98%. Her exam was notable for R face periorbital bruising and swelling was complaining of L hip and knee pain. Workup included a CT head that showed acute intracranial abnormalities, CT of the C-spine that showed no fractures, maxillofacial CT without contrast that showed no acute fractures, lumbar spine CT that showed no acute fractures, pelvic CT and L hip XR that showed no fractures, bilateral knee XR that showed advanced tricompartmental osteoarthritic degenerative changes without acute fractures or dislocation and a CXR showed no acute cardiopulmonary pathology. WBC was 7.4, Hgb 12, platelets 247, na 137, K 4, Cr 1.08, troponin negative, EKG without ST changes. PT evaluated in the ED and she could not ambulate and was therefore recommended for admission for deconditioning and in ability to ambulate for safe discharge planning since [place]. ROS: 10 point ROS was otherwise negative except as noted in the HPI. Allergies Coded Allergies: TAPE (Verified Allergy, Intermediate, NYLON TAPE CAUSES HIVES PER 09/09/03, 05/02/19) latex (Verified Allergy, Mild, RASH, 05/05/20) ibuprofen (Verified Adverse Reaction, Intermediate, BLEEDING, CONSTIPATION, 05/02/19) metoprolol (Verified Adverse Reaction, Intermediate, LOWERS BLOOD PRESSURE TOO MUCH, 05/02/19) LOWERS BLOOD PRESSURE TOO MUCH Quinolones (Verified Adverse Reaction, Mild, DIZZINESS, 05/02/19) morphine (Verified Adverse Reaction, Mild, ITCHING, 05/05/20) Past Medical History MORBID OBESITY BERYL on CPAP H/O. DVT, BILAT. PE T2DM on Insulin COPD PULMONARY HYPERTENSION with Right heart failure. RESTLESS LEG HTN CKD stage 3 GERD DEPRESSION/ANXIETY HYPERLIPIDEMIA ALLERGIC RHINITIS OA OF KNEES, WRISTS VITAMIN D DEFICIENCY NEUROPATHY Chronic Back Pain s/p back surgery in 1970s. Surgical History two back surgeries, right arm fatty tumor removal, partial hysterectomy, right rib removal due to cancer. Family History FATHER: , COLON CANCER MOTHER: , RHEUMATOID MATERNAL GRAND FATHER: DIAGNOSED WITH UNSPECIFIED HEART DISEASE MATERNAL AUNTS- RHEUMATOID. Social History Former smoker No alcohol No illicit drug use Physical examination: VITAL SIGNS: Please See below GENERAL: Obese female, NAD, sitting comfortably in bed HEENT: NC/AT, EOMI CARDIOVASCULAR: +S1S2, RRR, no murmur, gallops or rubs LUNGS: CTAB, placed on 2L NC saturating 98% ABDOMEN: Protuberant abdomen,soft, NT, +BS EXTREMITIES: 1+ bilateral lower extremity edema, WWP NEUROLOGICAL: CN2-12 appear intact, no gross focal deficits, moving all extremities but has various pain complaints with full range of motion Psych: Alert, awake, oriented to person, place but not time. Assessment and Plan: 69 year old W with HTN, IDDM, history of VTEs on eliquis, GERD, osteoarthritis, HLD, HFpEF, resident of [facility] who was brought to the ED after suffering a mechanical fall, thankfully without any noted fractures who is now being admitted for deconditioning and in ability to ambulate for PT/OT evaluation and safe discharge planning since [place]. Mechanical fall in the setting of transient dizziness and osteoarthritis -PT/OT -imaging showed no acute fractures as noted above -CT head showed no bleeding -PFS consult Chronic Heart failure, preserved ejection fraction (75-80% EF) -Last TTE was on 05/07/20 shows cor pulmonale -2 L fluid restriction -Strict I's and O's -Daily weights #chronic kidney disease stage III - At baseline creatinine. - Avoid nephrotoxins #DM2 with neuropathy -Continue long acting insulin per home dosing -FSBG AC/HS -SSI AC/HS -hypoglycemia protocol -hold home victoza -Consistent carb -continue home Lyrica #Hx COPD -Continue home advair #Morbid obesity - complicating care #h/o bilateral pulmonary embolism, DVT - Continue with Eliquis 5 by mouth twice a day #Hypertension - Continue amlodipine, losartan, chlorthalidone #GERD -Continue home omeprazole #Hyperlipidemia -Resume home statin DVT prophylaxis:eliquis Disposition: PT and OT ordered. Medsur Vital Signs Vital Signs Date Time Temp Pulse Resp B/P (MAP) Pulse Ox O2 Delivery O2 Flow Rate FiO2 08/04/20 09:46 97.4 70 98 08/04/20 09:33 16 136/65 (88) 08/04/20 08:25 Nasal Cannula 2.0 Laboratory Data Labs 24H Laboratory Tests 2 08/04/20 05:32: Immature Granulocyte % (Auto) 0.3, Neutrophils (%) (Auto) 55.1, Lymphocytes (%) (Auto) 32.2, Monocytes (%) (Auto) 9.0H, Eosinophils (%) (Auto) 2.6, Basophils (%) (Auto) 0.8, Neutrophils # (Auto) 4.1, Lymphocytes # (Auto) 2.4, Monocytes # (Auto) 0.7, Eosinophils # (Auto) 0.2, Basophils # (Auto) 0.1, Nucleated Red Blood Cells % (auto) 0.0, Prothrombin Time 13.6, Prothromb Time International Ratio 1.02, Activated Partial Thromboplast Time 29.9, Lactic Acid Level 1.4 08/04/20 07:10: Anion Gap 8, Glomerular Filtration Rate 53.7, Calcium Level 9.0, Total Creatine Kinase 628H, Creatine Kinase MB 9.4H, Creatine Kinase MB Relative Index 1.50, Troponin I < 0.02 08/04/20 13:59: CBC/BMP Laboratory Tests 08/04/20 05:32 08/04/20 07:10 Home Medications Scheduled Acetaminophen (Acetaminophen ER) 650 Mg Tablet.er, 650 MG PO BID Amlodipine Besylate (Amlodipine Besylate) 5 Mg Tablet, 5 MG PO DAILY Ammonium Lactate (Ammonium Lactate) 12% Cream..g., 1 APLCT TOP BID APPLY TO FEET PRIOR TO ARIK STOCKINGS Apixaban (Eliquis) 5 Mg Tablet, 5 MG PO BID Atorvastatin Calcium (Atorvastatin Calcium) 20 Mg Tablet, 20 MG PO DAILY Calcium Carbonate (Tums) 200 Mg Tab.chew, 500 MG PO DAILY Chlorthalidone (Chlorthalidone) 25 Mg Tablet, 25 MG PO DAILY Cholecalciferol (Vitamin D3) (Vitamin D3) 1,250 Mcg Capsule, 1,250 MCG PO QWEEK FRIDAYS Diclofenac Sodium (Voltaren) 100 Gm Gel..gram., 2 GM TOP TID APPLY TO KNEES Duloxetine Hcl (Cymbalta) 60 Mg Capsule.dr, 60 MG PO BID Fluticasone Propionate (Fluticasone Propionate) 50 Mcg/Act Spr, 2 SPRAY NARES DAILY Icosapent Ethyl (Vascepa) 1 Gm Capsule, 2 GM PO BID 0800/1700 Insulin Glargine,Hum.rec.anlog (Lantus Solostar) 100 Unit/1 Ml Insuln.pen, 40 UNITS SC QHS Insulin Glargine,Hum.rec.anlog (Lantus Solostar) 100 Unit/1 Ml Insuln.pen, 76 UNITS SC QAM Insulin Lispro (Humalog Kwikpen U-100) 100 Unit/1 Ml Insuln.pen, 24 UNITS SC DAILY Insulin Lispro (Humalog Kwikpen U-100) 100 Unit/1 Ml Insuln.pen, 28 UNITS SC DAILY @ 1200 Insulin Lispro (Humalog Kwikpen U-100) 100 Unit/1 Ml Insuln.pen, 20 UNITS SC QPM @ 1630 Liraglutide (Victoza 2-Anthony) 0.6 Mg/0.1 Ml Pen.injctr, 1.2 MG SC QPM TAKES AT 1600 Losartan Potassium (Losartan Potassium) 50 Mg Tablet, 50 MG PO QHS Omeprazole (Omeprazole) 40 Mg Capsule.dr, 40 MG PO DAILY Potassium Chloride (Potassium Chloride) 20 Meq Tablet.er, 20 MEQ PO DAILY Pregabalin (Pregabalin) 150 Mg Capsule, 150 MG PO BID Salmeterol/Fluticasone (Advair 100-50 Diskus) 1 Each Blst.w.dev, 1 PUFF INH BID Scheduled PRN Acetaminophen (Acetaminophen) 325 Mg Tablet, 650 MG PO Q4H PRN for PAIN Hydrocodone/Acetaminophen (Hydrocodone-Acetamin 5-325 mg) 1 Each Tablet, 1 TAB PO Q12H PRN for PAIN Magnesium Hydroxide (Milk of Magnesia) 400 Mg/5 Ml Oral.susp, 10 ML PO DAILY PRN for CONSTIPATION Allergies Coded Allergies: TAPE (Verified Allergy, Intermediate, NYLON TAPE CAUSES HIVES PER 09/09/03, 05/02/19) latex (Verified Allergy, Mild, RASH, 05/05/20) ibuprofen (Verified Adverse Reaction, Intermediate, BLEEDING, CONSTIPATION, 05/02/19) metoprolol (Verified Adverse Reaction, Intermediate, LOWERS BLOOD PRESSURE TOO MUCH, 05/02/19) LOWERS BLOOD PRESSURE TOO MUCH Quinolones (Verified Adverse Reaction, Mild, DIZZINESS, 05/02/19) morphine (Verified Adverse Reaction, Mild, ITCHING, 05/05/20) A-FIB/CHADSVASC A-FIB History Current/History of A-Fib/PAF?: Yes Current PO Anticoag Therapy: Yes Treatment Treatment ordered: Apixaban CRISTIANO WOODY MD August 04, 2020 15:26
[2020-08-04] MEDS: amLODIPine 5 MG TAB PO SCH (17:47)
[2020-08-04] MEDS: HumaLOG INSULIN (NovoLOG) PER UNIT SC SCH ×2 (17:49→21:31)
[2020-08-04] MEDS: ADVAIR HFA 45/21MCG INHALER INH SCH (19:48)
[2020-08-04] MEDS: APIXABAN 5 MG TAB (ELIQUIS) PO SCH (21:30)
[2020-08-04] MEDS: DULoxetine 30 MG CAP (CYMBALTA) PO SCH (21:30)
[2020-08-04] MEDS: PREGABALIN 75 MG CAP(LYRICA) PO SCH (21:30)
[2020-08-04] MEDS: ACETAMINOPHEN 650MG ER TAB (TYLENOL ARTHRITIS) PO SCH (21:30)
[2020-08-04] MEDS: LOSARTAN 50MG TABLET PO SCH (21:31)
[2020-08-04] MEDS: LACTIC ACID 12% LOTION 225 GM BTL TOP SCH (21:32)
[2020-08-04] MEDS: LEVEMIR (INSULIN DETEMIR) 1 UNITS/0.01ML SC SCH (21:34)
--- NOTE | 2020-08-04 21:34 | ECGEPIP ---
[facility] - ED Test Date: 2020-08-04 Pat Name: MANJU MILLS Department: Room: - Gender: Female Product Picker: [email or web address] : [id number] Requested By: TANVI GROVE Order Number: [id number] Reading MD: Lucille Dunbar Measurements Intervals [place] Rate: 69 P: 52 MI: 196 QRS: -4 QRSD: 98 T: 47 QT: 422 QTc: 452 Interpretive Statements Normal sinus rhythm Moderate voltage criteria for LVH, may be normal variant ( R in aVL , [place] product ) similar 05/18/20 Electronically Signed on 08-04-2020 21:34:08 EDT by Lucille Dunbar
[2020-08-04 22:00] VITALS: BP 135/62
[2020-08-04] MEDS: NORCO, ANEXSIA 5/325MG TABLET (HYDROcodone/ACETAMINOPHEN) PO PRN (22:18)
[2020-08-04] MEDS: DICLOFENAC EPOLAMINE 1.3 % PATCH TOP SCH (22:19)
[2020-08-05 06:00] VITALS: BP 137/63
[2020-08-05 06:24] LABS: HEMATOCRIT 36.3 % (36.0-47.0); HEMOGLOBIN 11.8 g/dl (12.0-15.5); MEAN CORPUSCULAR HEMOGLOBIN 28.2 pg (27.0-33.0); MEAN CORPUSCULAR HGB CONC 32.5 g/dl (32.0-36.5); MEAN CORPUSCULAR VOLUME 86.6 fl (80.0-96.0); PLATELET COUNT, AUTOMATED 240 10^3/uL (150-450); RED BLOOD COUNT 4.19 10^6/uL (4.00-5.40); WHITE BLOOD COUNT 5.4 10^3/uL (4.0-10.0)
[2020-08-05 06:53] LABS: BLOOD UREA NITROGEN 22 MG/DL (7-18); CALCIUM LEVEL 9.6 MG/DL (8.8-10.2); CARBON DIOXIDE LEVEL 30 MEQ/L (21-32); CHLORIDE LEVEL 104 MEQ/L (98-107); CREATININE FOR GFR 0.91 MG/DL (0.55-1.30); GLOMERULAR FILTRATION RATE > 60.0 (>45); GLUCOSE, FASTING 231 MG/DL (70-100); MAGNESIUM LEVEL 1.6 MG/DL (1.8-2.4); SODIUM LEVEL 140 MEQ/L (136-145)
[2020-08-05] MEDS: ADVAIR HFA 45/21MCG INHALER INH SCH ×2 (07:50→19:43)
[2020-08-05] MEDS: HumaLOG INSULIN (NovoLOG) PER UNIT SC SCH ×4 (08:28→21:49)
[2020-08-05] MEDS: LEVEMIR (INSULIN DETEMIR) 1 UNITS/0.01ML SC SCH ×2 (08:28→21:49)
[2020-08-05] MEDS: CALCIUM CARBONATE 500 MG CHEW U/D PO SCH (08:29)
[2020-08-05] MEDS: ATORVASTATIN 20 MG TAB PO SCH (08:30)
[2020-08-05] MEDS: APIXABAN 5 MG TAB (ELIQUIS) PO SCH ×2 (08:30→21:48)
[2020-08-05] MEDS: ACETAMINOPHEN 650MG ER TAB (TYLENOL ARTHRITIS) PO SCH ×2 (08:30→21:53)
[2020-08-05] MEDS: DULoxetine 30 MG CAP (CYMBALTA) PO SCH ×2 (08:30→21:48)
[2020-08-05] MEDS: FLUTICASONE PROP 0.05% NASAL SPRAY 16 GM (FLONASE) NARES SCH (08:30)
[2020-08-05] MEDS: POTASSIUM CHLORIDE 10 MEQ SR TABLET PO SCH (08:30)
[2020-08-05] MEDS: amLODIPine 5 MG TAB PO SCH (08:31)
[2020-08-05] MEDS: CHLORTHALIDONE 25 MG TAB PO SCH (08:31)
[2020-08-05] MEDS: OMEPRAZOLE 20 MG CAP PO SCH (08:31)
[2020-08-05] MEDS: PREGABALIN 75 MG CAP(LYRICA) PO SCH ×2 (08:33→21:48)
[2020-08-05] MEDS: LACTIC ACID 12% LOTION 225 GM BTL TOP SCH ×2 (08:34→21:50)
[2020-08-05] MEDS: DICLOFENAC EPOLAMINE 1.3 % PATCH TOP SCH ×2 (08:34→21:50)
[2020-08-05] MEDS ORDERED: MAG SULF 1GM/100ML (MAG RUN) 1 GM in IV 1 EA IV ONE (09:00)
--- NOTE | 2020-08-05 11:50 | REP ---
INDICATION: weakness, after fall on eliquis COMPARISON: 08/04/2020 TECHNIQUE: Axial noncontrast images from the skull base to the thoracic inlet with coronal reformations. This CT examination was performed using the following dose reduction techniques: Automated exposure control, adjustment of mA and/or kv according to the patient's size, and use of iterative reconstruction technique. FINDINGS: Age-related atrophy and microvascular ischemic changes are appreciated. The ventricles and sulci are symmetric. Mota-white differentiation is maintained. There is no evidence for acute intracranial hemorrhage, mass/mass effect, pathology or infarction. No extra-axial fluid collection. Calvarium is intact. Paranasal sinuses and mastoid air cells are clear. Right periorbital traumatic soft tissue swelling and subcutaneous infiltration. IMPRESSION: Age related atrophy and microvascular ischemic changes. No acute intracranial hemorrhage, infarction, or mass/mass effect. Right periorbital traumatic soft tissue swelling. <Electronically signed by Hussein Barbosa > 08/05/20 1145
--- NOTE | 2020-08-05 13:17 | IPNPDOC ---
Text Note Date of Service The patient was seen on 08/05/20. NOTE Subjective: -Is sore all over after the fall -Feels tired, sleepy Objective: Physical examination: VITAL SIGNS: Please See below GENERAL: Obese female, NAD, sitting comfortably in bed HEENT: NC/AT, EOMI CARDIOVASCULAR: +S1S2, RRR, no murmur, gallops or rubs LUNGS: CTAB, placed on 2L NC saturating 98% ABDOMEN: Protuberant abdomen,soft, NT, +BS EXTREMITIES: 1+ bilateral lower extremity edema, WWP NEUROLOGICAL: CN2-12 appear intact, no gross focal deficits, moving all extre mities but has various pain complaints with full range of motion and globally weak with 3 to 4/5 strength in bilateral UE and LE. SKIN:R eye swelling with periorbital bruising Psych: Sleepy, awake on voice. Oriented to person, place but not time. Labs: reviewed Mag 1.6 WBC 5.4 Hgb 11.8 platelets 240 Cr 0.91 Assessment and Plan: 69 year old W with HTN, IDDM, history of VTEs on eliquis, GERD, osteoarthritis, HLD, HFpEF, resident of [facility] who was brought to the ED after suffering a mechanical fall, thankfully without any noted fractures who was admitted for deconditioning and in ability to ambulate for PT/OT evaluation and safe discharge planning since she had come from [place]. Mechanical fall in the setting of transient dizziness and osteoarthritis -PT/OT -imaging showed no acute fractures as noted above -CT head showed no bleeding. Did a repeat CT this midmorning after PT reported possible asymmetrial greater weakness of L side, CT remains stable without bleeding or new infarct. Chronic Heart failure, preserved ejection fraction (75-80% EF) -Last TTE was on 05/07/20 shows cor pulmonale -2 L fluid restriction -Strict I's and O's -Daily weights #chronic kidney disease stage III - At baseline creatinine. - Avoid nephrotoxins #DM2 with neuropathy -Continue long acting insulin per home dosing -FSBG AC/HS -SSI AC/HS -hypoglycemia protocol -hold home victoza -Consistent carb -continue home Lyrica #Hx COPD -Continue home advair #Morbid obesity - complicating care #h/o bilateral pulmonary embolism, DVT - Continue with Eliquis 5 by mouth twice a day #Hypertension - Continue amlodipine, losartan, chlorthalidone #GERD -Continue home omeprazole #Hyperlipidemia -Resume home statin DVT prophylaxis:eliquis Disposition: PT and OT ordered. Medsurg. With ongoing planning likely to be discharged tomorrow to [facility] rehab. VS,Fishbone, I+O VS, Fishbone, I+O Laboratory Tests 08/05/20 06:12 Vital Signs Date Time Temp Pulse Resp B/P (MAP) Pulse Ox O2 Delivery O2 Flow Rate FiO2 08/05/20 07:54 75 08/05/20 06:00 98.2 20 137/63 (87) 96 08/04/20 22:00 Room Air 08/04/20 22:00 2.0 I&O- Last 24 Hours up to 6 AM 08/05/20 06:00 Intake Total 380 ml Output Total 1555 ml Balance -1175 ml CRISTIANO WOODY MD August 05, 2020 08:30
[2020-08-05 14:07] VITALS: BP 112/61
[2020-08-05] MEDS: LOSARTAN 50MG TABLET PO SCH (21:54)
[2020-08-05] MEDS: NORCO, ANEXSIA 5/325MG TABLET (HYDROcodone/ACETAMINOPHEN) PO PRN (21:57)
[2020-08-05 22:00] VITALS: BP 114/61
[2020-08-06] MEDS ORDERED: KETOROLAC 30 MG/ML 1ML VIAL IV ONE (00:25)
[2020-08-06 06:00] VITALS: BP 143/54
[2020-08-06 06:45] LABS: HEMATOCRIT 36.8 % (36.0-47.0); MEAN CORPUSCULAR HGB CONC 32.6 g/dl (32.0-36.5); PLATELET COUNT, AUTOMATED 256 10^3/uL (150-450); RED BLOOD COUNT 4.28 10^6/uL (4.00-5.40); WHITE BLOOD COUNT 6.1 10^3/uL (4.0-10.0)
[2020-08-06 07:08] LABS: CREATININE FOR GFR 1.14 MG/DL (0.55-1.30); GLOMERULAR FILTRATION RATE 50.5 (>45)
[2020-08-06] MEDS: ADVAIR HFA 45/21MCG INHALER INH SCH (07:24)
[2020-08-06] MEDS: LEVEMIR (INSULIN DETEMIR) 1 UNITS/0.01ML SC SCH (08:22)
[2020-08-06] MEDS: HumaLOG INSULIN (NovoLOG) PER UNIT SC SCH ×2 (08:23→12:12)
[2020-08-06] MEDS: APIXABAN 5 MG TAB (ELIQUIS) PO SCH (08:23)
[2020-08-06] MEDS: CALCIUM CARBONATE 500 MG CHEW U/D PO SCH (08:23)
[2020-08-06] MEDS: DICLOFENAC EPOLAMINE 1.3 % PATCH TOP SCH (08:23)
[2020-08-06] MEDS: ATORVASTATIN 20 MG TAB PO SCH (08:23)
[2020-08-06 08:24] VITALS: BP 143/54
[2020-08-06] MEDS: OMEPRAZOLE 20 MG CAP PO SCH (08:24)
[2020-08-06] MEDS: amLODIPine 5 MG TAB PO SCH (08:24)
[2020-08-06] MEDS: CHLORTHALIDONE 25 MG TAB PO SCH (08:24)
[2020-08-06] MEDS: PREGABALIN 75 MG CAP(LYRICA) PO SCH (08:24)
[2020-08-06] MEDS: DULoxetine 30 MG CAP (CYMBALTA) PO SCH (08:24)
[2020-08-06] MEDS: ACETAMINOPHEN 650MG ER TAB (TYLENOL ARTHRITIS) PO SCH (08:24)
[2020-08-06] MEDS: POTASSIUM CHLORIDE 10 MEQ SR TABLET PO SCH (08:24)
[2020-08-06] MEDS: FLUTICASONE PROP 0.05% NASAL SPRAY 16 GM (FLONASE) NARES SCH (08:25)
[2020-08-06] MEDS: LACTIC ACID 12% LOTION 225 GM BTL TOP SCH (08:25)
--- NOTE | 2020-08-06 10:39 | DS.PDOC ---
Discharge Summary General Date of Admission August 04, 2020 at 13:16 Date of Discharge 08/06/2020 Attending Physician: CRISTIANO WOODY MD Discharge Summary PROCEDURES PERFORMED DURING STAY: None ADMITTING DIAGNOSES: Mechanical fall Osteoarthritis Unsteady gait DISCHARGE DIAGNOSES: Mechanical fall Osteoarthritis Unsteady gait MORBID OBESITY BERYL on CPAP H/O. DVT, BILAT. PE T2DM on Insulin COPD PULMONARY HYPERTENSION with Right heart failure. RESTLESS LEG HTN CKD stage 3 GERD DEPRESSION/ANXIETY HYPERLIPIDEMIA ALLERGIC RHINITIS History of OA OF KNEES, WRISTS VITAMIN D DEFICIENCY NEUROPATHY Chronic Back Pain s/p back surgery in 1970s. COMPLICATIONS/CHIEF COMPLAINT: Fall, Osteoarthritis, & Unsteady Gait. HISTORY OF PRESENT ILLNESS: 69 year old W with HTN, IDDM, history of VTEs on eliquis, GERD, osteoarthritis, HLD, HFpEF, resident of [facility] who was brought to the ED after suffering a mechanical fall while trying to get up and walk and became dizzy and fell withou t LOC, noted seizure like activity, corroborated prodrome except for the transient dizziness, without acute chest pain, palpitations, dyspnea, or recent history of fever, chills, nausea, emesis, headaches, abdominal pain, diarrhea or constipation. HOSPITAL COURSE: In the ED, she was hemodynamically stable and mildly hypoxemic requiring 2L NC and saturating 98%. Her exam was notable for R face periorbital bruising and swelling was complaining of L hip and knee pain. Workup included a CT head that showed acute intracranial abnormalities, CT of the C-spine that showed no fractures, maxillofacial CT without contrast that showed no acute fractures, lumbar spine CT that showed no acute fractures, pelvic CT and L hip XR that showed no fractures, bilateral knee XR that showed advanced tricompartmental osteoarthritic degenerative changes without acute fractures or dislocation and a CXR showed no acute cardiopulmonary pathology. WBC was 7.4, Hgb 12, platelets 247, na 137, K 4, Cr 1.08, troponin negative, EKG without ST changes. PT evaluated in the ED and she could not ambulate and was therefore recommended for admission for deconditioning and in ability to ambulate for safe discharge plan anni since she had come from [place]. She remained stable while inpatient and worked with PT/OT and was deemed stable for discharged to [facility] and will therefore be discharged to [facility] rehab unit. DISCHARGE MEDICATIONS: Please see below. ALLERGIES: Please see below. PHYSICAL EXAMINATION ON DISCHARGE: VITAL SIGNS: Please see below. GENERAL: Obese female, NAD, sitting comfortably in bed HEENT: NC/AT, EOMI CARDIOVASCULAR: +S1S2, RRR, no murmur, gallops or rubs LUNGS: CTAB, placed on 2L NC saturating 98% ABDOMEN: Protuberant abdomen,soft, NT, +BS EXTREMITIES: 1+ bilateral lower extremity edema, WWP NEUROLOGICAL: CN2-12 appear intact, no gross focal deficits, moving all extremities but has various MSK soreness complaints with full range of motion otherwise SKIN: has R facial bruising from the recent fall Psych: Alert, awake, oriented to person, place but not time. LABORATORY DATA: Please see below. IMAGING: CT head showed acute intracranial abnormalities CT of the C-spine showed no fractures Maxillofacial CT without contrast showed no acute fractures Lumbar spine CT showed no acute fractures Pelvic CT showed no acute fractures L hip XR showed no fractures Bilateral knee XR showed advanced tricompartmental osteoarthritic degenerative changes without acute fractures or dislocation CXR showed no acute cardiopulmonary pathology PROGNOSIS: Good ACTIVITY: As tolerated. DIET: Consistent carb DISCHARGE PLAN: [facility] rehab DISPOSITION: [facility] rehab DISCHARGE INSTRUCTIONS: GP f/u within 1 week ITEMS TO FOLLOWUP ON ON OUTPATIENT: Mechanical fall Unsteady gait DISCHARGE CONDITION: Stable TIME SPENT ON DISCHARGE: 40 minutes. Vital Signs/I&Os Vital Signs Date Time Temp Pulse Resp B/P (MAP) Pulse Ox O2 Delivery O2 Flow Rate FiO2 08/05/20 07:54 75 08/05/20 06:00 98.2 20 137/63 (87) 96 08/04/20 22:00 Room Air 08/04/20 22:00 2.0 I&O- Last 24 Hours up to 6 AM 08/05/20 06:00 Intake Total 380 ml Output Total 1555 ml Balance -1175 ml Laboratory Data Labs 24H Laboratory Tests 2 08/04/20 13:59: Coronavirus (COVID-19)(PCR) NEGATIVE, Influenza Type A (RT-PCR) NEGATIVE, Influenza Type B (RT-PCR) NEGATIVE, Respiratory Syncytial Virus (PCR) NEGATIVE 08/04/20 16:20: Bedside Glucose (Misc Panel) 249H 08/04/20 20:01: Bedside Glucose (Misc Panel) 313H 5/26/21 06:12: Nucleated Red Blood Cells % (auto) 0.0, Anion Gap 6L, Glomerular Filtration Rate > 60.0, Calcium Level 9.6, Magnesium Level 1.6L CBC/BMP Laboratory Tests 08/05/20 06:12 FSBS Laboratory Tests Test 08/04/20 16:20 08/04/20 20:01 Range/Units Bedside Glucose (Misc Panel) 249 313 80-115 MG/DL Discharge Medications Scheduled Acetaminophen (Acetaminophen ER) 650 Mg Tablet.er, 650 MG PO BID, (Reported) Amlodipine Besylate (Amlodipine Besylate) 5 Mg Tablet, 5 MG PO DAILY, (Reported) Ammonium Lactate (Ammonium Lactate) 12% Cream..g., 1 APLCT TOP BID, (Reported) APPLY TO FEET PRIOR TO ARIK STOCKINGS Apixaban (Eliquis) 5 Mg Tablet, 5 MG PO BID, (Reported) Atorvastatin Calcium (Atorvastatin Calcium) 20 Mg Tablet, 20 MG PO DAILY, (Reported) Calcium Carbonate (Tums) 200 Mg Tab.chew, 500 MG PO DAILY, (Reported) Chlorthalidone (Chlorthalidone) 25 Mg Tablet, 25 MG PO DAILY, (Reported) Cholecalciferol (Vitamin D3) (Vitamin D3) 1,250 Mcg Capsule, 1,250 MCG PO QWEEK, (Reported) FRIDAYS Diclofenac Sodium (Voltaren) 100 Gm Gel..gram., 2 GM TOP TID, (Reported) APPLY TO KNEES Duloxetine Hcl (Cymbalta) 60 Mg Capsule.dr, 60 MG PO BID, (Reported) Fluticasone Propionate (Fluticasone Propionate) 50 Mcg/Act Spr, 2 SPRAY NARES DAILY, (Reported) Icosapent Ethyl (Vascepa) 1 Gm Capsule, 2 GM PO BID, (Reported) 0800/1700 Insulin Glargine,Hum.rec.anlog (Lantus Solostar) 100 Unit/1 Ml Insuln.pen, 40 UNITS SC QHS, (Reported) Insulin Glargine,Hum.rec.anlog (Lantus Solostar) 100 Unit/1 Ml Insuln.pen, 76 U NITS SC QAM, (Reported) Insulin Lispro (Humalog Kwikpen U-100) 100 Unit/1 Ml Insuln.pen, 24 UNITS SC DAILY, (Reported) Insulin Lispro (Humalog Kwikpen U-100) 100 Unit/1 Ml Insuln.pen, 28 UNITS SC DAILY, (Reported) @ 1200 Insulin Lispro (Humalog Kwikpen U-100) 100 Unit/1 Ml Insuln.pen, 20 UNITS SC QP M, (Reported) @ 1630 Liraglutide (Victoza 2-Anthony) 0.6 Mg/0.1 Ml Pen.injctr, 1.2 MG SC QPM, (Reported) TAKES AT 1600 Losartan Potassium (Losartan Potassium) 50 Mg Tablet, 50 MG PO QHS, (Reported) Omeprazole (Omeprazole) 40 Mg Capsule.dr, 40 MG PO DAILY, (Reported) Potassium Chloride (Potassium Chloride) 20 Meq Tablet.er, 20 MEQ PO DAILY, (Reported) Pregabalin (Pregabalin) 150 Mg Capsule, 150 MG PO BID, (Reported) Salmeterol/Fluticasone (Advair 100-50 Diskus) 1 Each Blst.w.dev, 1 PUFF INH BID, (Reported) Scheduled PRN Acetaminophen (Acetaminophen) 325 Mg Tablet, 650 MG PO Q4H PRN for PAIN, (Reported) Hydrocodone/Acetaminophen (Hydrocodone-Acetamin 5-325 mg) 1 Each Tablet, 1 TAB PO Q12H PRN for PAIN, (Reported) Magnesium Hydroxide (Milk of Magnesia) 400 Mg/5 Ml Oral.susp, 10 ML PO DAILY PRN for CONSTIPATION, (Reported) Allergies Coded Allergies: TAPE (Verified Allergy, Intermediate, NYLON TAPE CAUSES HIVES PER 09/09/03, 05/02/19) latex (Verified Allergy, Mild, RASH, 05/05/20) ibuprofen (Verified Adverse Reaction, Intermediate, BLEEDING, CONSTIPATION, 05/02/19) metoprolol (Verified Adverse Reaction, Intermediate, LOWERS BLOOD PRESSURE TOO MUCH, 05/02/19) LOWERS BLOOD PRESSURE TOO MUCH Quinolones (Verified Adverse Reaction, Mild, DIZZINESS, 05/02/19) morphine (Verified Adverse Reaction, Mild, ITCHING, 05/05/20) CRISTIANO WOODY MD August 05, 2020 08:28
[2020-08-06] MEDS: NORCO, ANEXSIA 5/325MG TABLET (HYDROcodone/ACETAMINOPHEN) PO PRN (12:12)
== END 2020-08-06 13:14 | DRG 92 ==
LOC: M ED 04:50 → M ED INP 13:16 → ENRESERV 15:26 → M MSPAV 16:05
PROVIDERS: ADMIT Internal Medicine; ATTEND Internal Medicine
DX: R29.6 Repeated falls (principal); I13.0 Hypertensive heart and chronic kidney disease with heart failure and stage 1 through stage 4 chronic kidney disease, or unspecified chronic kidney disease; I50.32 Chronic diastolic (congestive) heart failure; Z68.42 Body mass index [BMI] 45.0-49.9, adult; E11.42 Type 2 diabetes mellitus with diabetic polyneuropathy; E11.22 Type 2 diabetes mellitus with diabetic chronic kidney disease; E11.65 Type 2 diabetes mellitus with hyperglycemia; K21.9 Gastro-esophageal reflux disease without esophagitis; M17.0 Bilateral primary osteoarthritis of knee; E78.5 Hyperlipidemia, unspecified; R42 Dizziness and giddiness; Z72.3 Lack of physical exercise; E66.01 Morbid (severe) obesity due to excess calories; N18.30 Chronic kidney disease, stage 3 unspecified; G47.33 Obstructive sleep apnea (adult) (pediatric); Z86.711 Personal history of pulmonary embolism; J44.9 Chronic obstructive pulmonary disease, unspecified; I27.29 Other secondary pulmonary hypertension; G25.81 Restless legs syndrome; F41.9 Anxiety disorder, unspecified; F32.9 Major depressive disorder, single episode, unspecified; J30.9 Allergic rhinitis, unspecified; M19.031 Primary osteoarthritis, right wrist; M19.032 Primary osteoarthritis, left wrist; E55.9 Vitamin D deficiency, unspecified; M54.9 Dorsalgia, unspecified; S00.83XA Contusion of other part of head, initial encounter; W05.0XXA Fall from non-moving wheelchair, initial encounter; Y92.89 Other specified places as the place of occurrence of the external cause; Z90.49 Acquired absence of other specified parts of digestive tract; Z87.891 Personal history of nicotine dependence; Z79.01 Long term (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 anticoagulants; Z79.899 Other long term (current) drug therapy; Z79.4 Long term (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; Z88.8 Allergy status to other drugs, medicaments and biological substances; Z88.5 Allergy status to narcotic agent; Z91.040 Latex allergy status; Z86.718 Personal history of other venous thrombosis and embolism

== ENCOUNTER → 2020-08-12 | Outpatient (REF) ==
[~2020-08-12] MED LIST changes: +VITA1CAP25 PO
[2020-08-12 09:40] LABS: HEMATOCRIT 37.1 % (36.0-47.0); HEMOGLOBIN 11.9 g/dl (12.0-15.5); MEAN CORPUSCULAR HEMOGLOBIN 27.5 pg (27.0-33.0); MEAN CORPUSCULAR HGB CONC 32.1 g/dl (32.0-36.5); MEAN CORPUSCULAR VOLUME 85.7 fl (80.0-96.0); PLATELET COUNT, AUTOMATED 247 10^3/uL (150-450); RED BLOOD COUNT 4.33 10^6/uL (4.00-5.40); WHITE BLOOD COUNT 6.5 10^3/uL (4.0-10.0)
[2020-08-12 10:08] LABS: CALCIUM LEVEL 8.8 MG/DL (8.8-10.2); CREATININE FOR GFR 1.04 MG/DL (0.55-1.30); GLOMERULAR FILTRATION RATE 55.9 (>45); POTASSIUM SERUM 3.9 MEQ/L (3.5-5.1)
== END ==
DX: E11.9 Type 2 diabetes mellitus without complications (principal); I10 Essential (primary) hypertension

== ENCOUNTER → 2020-08-18 | Outpatient (REF) | payer MEDICARE, MEDICAID ==
[2020-08-18 11:03] LABS: HEMATOCRIT 37.2 % (36.0-47.0); HEMOGLOBIN 12.1 g/dl (12.0-15.5); MEAN CORPUSCULAR HEMOGLOBIN 27.9 pg (27.0-33.0); MEAN CORPUSCULAR HGB CONC 32.5 g/dl (32.0-36.5); MEAN CORPUSCULAR VOLUME 85.7 fl (80.0-96.0); PLATELET COUNT, AUTOMATED 268 10^3/uL (150-450); RED BLOOD COUNT 4.34 10^6/uL (4.00-5.40); WHITE BLOOD COUNT 6.5 10^3/uL (4.0-10.0)
[2020-08-18 12:09] LABS: CREATININE FOR GFR 1.16 MG/DL (0.55-1.30); GLOMERULAR FILTRATION RATE 49.3 (>45); POTASSIUM SERUM 3.7 MEQ/L (3.5-5.1)
== END ==
PROVIDERS: ATTEND Physician Assistant
DX: E11.9 Type 2 diabetes mellitus without complications (principal); I10 Essential (primary) hypertension

== ENCOUNTER → 2020-08-25 | Outpatient (REF) | payer MEDICARE, MEDICAID ==
[2020-08-25 11:16] LABS: HEMATOCRIT 36.4 % (36.0-47.0); HEMOGLOBIN 11.8 g/dl (12.0-15.5); MEAN CORPUSCULAR HEMOGLOBIN 28.1 pg (27.0-33.0); MEAN CORPUSCULAR HGB CONC 32.4 g/dl (32.0-36.5); MEAN CORPUSCULAR VOLUME 86.7 fl (80.0-96.0); PLATELET COUNT, AUTOMATED 283 10^3/uL (150-450); WHITE BLOOD COUNT 8.1 10^3/uL (4.0-10.0)
[2020-08-25 11:28] LABS: CALCIUM LEVEL 9.2 MG/DL (8.8-10.2); CREATININE FOR GFR 1.12 MG/DL (0.55-1.30); GLOMERULAR FILTRATION RATE 51.3 (>45); POTASSIUM SERUM 4.5 MEQ/L (3.5-5.1)
== END ==
DX: I10 Essential (primary) hypertension (principal)

== ENCOUNTER → 2020-08-26 | Outpatient (CLI) | payer MEDICARE, MEDICAID ==
[~2020-08-26] MED LIST changes: +OMEP40CA4 PO; -OMEP40CA97 PO
--- NOTE | 2020-09-02 00:44 | ECWPNPC ---
PATIENT NAME: MANJU MILLS : 1950 GENDER: FEMALE VISIT DATE: 08/26/2020 DISCHARGE DATE: 08/26/20 1405 VISIT LOCKED DATE TIME: PHYSICIAN: ARABELLA MASON PHYSICIAN PAGER NO: ACTIVE RESOURCE: ARABELLA MASON REASON FOR APPOINTMENT 1. NPC HISTORY OF PRESENT ILLNESS DEPRESSION SCREENING: PHQ-2 (2015 EDITION) LITTLE INTEREST OR PLEASURE IN DOING THINGS?NOT AT ALL FEELING DOWN, DEPRESSED, OR HOPELESS?NOT AT ALL TOTAL SCORE0 GENERAL: 70-YEAR-OLD RESIDENT OF [facility] IS HERE PER REFERRAL OF DR. TEJEDA TO EVALUATE PERSISTENT LEFT LOW BACK PAIN. PATIENT HAD A FALL INJURY ON 08/06/2020 AFTER A SYNCOPAL EPISODE. SHE WAS HOSPITALIZED AT [facility] FOR 3 OR 4 DAYS AFTER THE FALL. PATIENT IS NOW WHEELCHAIR DEPENDENT. SHE IS NOW LOCATED IN [facility] AT [facility]. THIS IS FOR REHABILITATION. STATES SHE IS IN THERAPY 3 TIMES A DAY. PAIN HAS BEEN SO INTENSE SHE IS FINDING IT DIFFICULT TO ATTEND TO THERAPY. REPORTING DIFFICULTY WITH SLEEP DUE TO PAIN. REPORTS THAT CURRENT MEDICATION, HYDROCODONE 5/325 IS NOT HELPFUL. STATES SHE HAD IMPROVEMENT AFTER USING OXYCODONE IN THE HOSPITAL FOR PAIN. DENIES BOWEL OR BLADDER INCONTINENCE. DENIES RECENT FEVER OR ILLNESS OR SUDDEN WEIGHT LOSS. - - -. FALL RISK SCREENING: SCREENING PATIENT DID FALL 06/19/20HAS PAIN AND HURT RIGHT ARM AND LEFT HAND . PAIN SCREENING: PATIENT HAS A COMPLAINT OF ACUTE OR CHRONIC PAIN :YES LOCATION OF PAIN:LOW BACK PAIN IS ON THE OUTSIDE OF THE LEG INTENSITY OF PAIN (SCALE OF 1 TO 10):8 WHAT DOES YOUR PAIN FEEL LIKE:CONTINOUS, TENDER, SORE DURATION:CONTINOUS, CONSTANT, ALL DAY PAIN IS INCREASED BY:OTHERS MOVING FROM ON POSITION TO THE BNEXT PAIN IS DECREASED BY:OTHERS PHYSICAL THERAPY 3X A DAY NURSING NOTE: - - -. PAIN CENTER INTAKE QUESTIONS: DO YOU HAVE A HISTORY OF MRSA? :NO DO YOU TAKE A BLOOD THINNERS? :YES ELIQUIS 5 MG DO YOU HAVE ANY BLEEDING DISORDERS? :NO ANY NEW NUMBNESS OR WEAKNESS IN YOUR LEGS OR ARMS? :YES LEFT SIDE OF THE BODY ANY PACEMAKER,DEFIBRILLATOR, OR DORSAL COLUMN STIMULATOR? :NO DO YOU HAVE ANY RASHES OR OPEN SORES? :YES RASHES ARE YOU ALLERGIC TO IV DYE? :NO ARE YOU DIABETIC? :YES TYPE 2 ANY NEW PROBLEMS WITH YOUR MEDICATIONS? :NO HAVE YOU RECEIVED A VACCINE IN THE PAST 30 DAYS? :NO HAD BOTH COVID SHOT DO YOU PLAN TO RECEIVE A VACCINE IN THE NEXT 21 DAYS? :NO DO YOU NEED ANY PRESCRIPTION? :NO DO YOU TAKE ANY IMMUNOSUPPRESSIVE MEDICATIONS? :NO IS THERE A CHANCE YOU COULD BE ? :NO ARE YOU BREAST FEEDING? :NO CURRENT MEDICATIONS TAKING ACETAMINOPHEN 325 MG TABLET 1 TABLET NEEDED ORALLY EVERY 4 HRS TAKING ACETAMINOPHEN ER 650 MG TABLET EXTENDED RELEASE 2 TABLETS NEEDED ORALLY EVERY 12 HOURS, NOTES: ON DISCHARGE 05/13/20 FROM [facility] TAKING MAY HAVE - - ROLATOR _ DAILY TAKING MAY HAVE - - COMPRESSION STOCKING 15MMHG CIRC. AT CALF 43CM, SIZE 12 SHOE WOMEN'S ENTIRE SOCK INCLUDED TOPICALLY DAILY WHILE OUT OF BED TAKING WALKER - MISCELLANEOUS 4 WHEELED WALKER WITH SEAT DX M51.36 TAKING MULTIVITAMIN & MINERAL _ 1 TAB ORALLY DAILY TAKING MILK OF MAGNESIA 400 MG/5ML SUSPENSION 5 ML AT LEAST 4 HOURS BETWEEN DOSES NEEDED ORALLY FOUR TIMES A DAY TAKING AMMONIUM LACTATE 12 % CREAM 1 APPLICATION EXTERNALLY MAY HAVE A BED SIDE ONCE A DAY ON HER FEET TAKING PROAIR HFA 108 (90 BASE) MCG/ACT AEROSOL SOLUTION 2 PUFFS NEEDED INHALATION QID PRN TAKING ALBUTEROL SULFATE (2.5 MG/3ML) 0.083% NEBULIZATION SOLUTION 3 ML NEEDED INHALATION EVERY 4 HRS NEEDED FOR SOB TAKING VOLTAREN 1 % GEL DIRECTED EXTERNALLY TAKING CALCIUM CARBONATE 1250 (500 CA) MG TABLET CHEWABLE 1 TABLET ORALLY ONCE A DAY TAKING INSULIN GLARGINE 100 UNIT/ML SOLUTION 40UNITS AT HS SUBCUTANEOUS TAKING PREGABALIN 100 MG CAPSULE 1 CAPSULE ORALLY BID TAKING LIPITOR 20 MG TABLET 1 TABLET ORALLY ONCE A DAY TAKING LOSARTAN POTASSIUM 50 MG TABLET 1 TABLET ORALLY ONCE A DAY TAKING AMLODIPINE BESYLATE 5 MG TABLET 1 TABLET ORALLY ONCE A DAY TAKING POTASSIUM CHLORIDE ROSALIO ER 20 MEQ TABLET EXTENDED RELEASE 1 TABLET WITH FOOD ORALLY ONCE A DAY TAKING CHLORTHALIDONE 25 MG TABLET 1 TAB ORALLY ONCE A DAY TAKING VICTOZA 18 MG/3ML SOLUTION 1.2 UNITS SUBCUTANEOUS DAILY TAKING LANTUS SOLOSTAR 100 UNIT/ML SOLUTION 76U AT QAM, 40U AT HS SUBCUTANEOUS BID: MDD 114U TAKING ELIQUIS 5 MG TABLET 1 TAB ORALLY BID TAKING VITAMIN D3 82922 UNIT CAPSULE 1 CAPSULE ORALLY WEEKLY TAKING ADVAIR DISKUS 100-50 MCG/DOSE MISCELLANEOUS DIRECTED INHALATION BID TAKING OMEPRAZOLE 40 MG CAPSULE DELAYED RELEASE 1 CAPSULE ORALLY ONCE A DAY TAKING CYMBALTA 60 MG 1 CAP PO TWICE DAILY TAKING VOLTAREN 1 % GEL DIRECTED EXTERNALLY HANDS ABD KNEES, THREE TIMES A DAY TAKING AMMONIUM LACTATE 12 % LOTION 1 APPLICATION EXTERNALLY TWICE A DAY TAKING VASCEPA 1 GM CAPSULE 2 CAPSULES WITH MEALS ORALLY TWICE A DAY TAKING FLUTICASONE PROPIONATE 50 MCG/ACT SUSPENSION 2 SPRAY IN EACH NOSTRIL NASALLY ONCE A DAY TAKING NEEDLE (DISP) 30G X 1" MISCELLANEOUS DX E11.9 BD AUTOSHIELD BID TAKING INSULIN LISPRO PROT & LISPRO (75-25) 100 UNIT/ML SUSPENSION PEN-INJECTOR DIRECTED BY SLIDING SCALE SUBCUTANEOUS TID AC TAKING HUMALOG KWIKPEN 100 UNIT/ML SOLUTION PEN-INJECTOR 24U QAM,28U @NOON,20U AT DINNER ALL C MEALS SUBCUTANEOUS THREE TIMES DAILY C MEALS MDD 75UNITS/DAY TAKING HYDROCODONE-ACETAMINOPHEN 5-325 MG TABLET 1 TABLET NEEDED ORALLY EVERY 6 HRS NEEDED MEDICATION LIST REVIEWED AND RECONCILED WITH THE PATIENT PAST MEDICAL HISTORY TYPE 2 DIABETE COPD-QUIT 12YRS. AGO TOB. USE RLS HYPERTENSION, ESSENTIAL CHRONIC MDD/GERMÁN HYPERLIPIDEMIA ALLERGIC RHINITIS OA OF KNEES, WRISTS H/O LT. DVT, BILAT. PE ON CHRONIC DOAC CKD STAGE III GERD VITAMIN D DEFICIENCY BERYL ON CHRONIC CPAP 01/2020 DR MARTINEZ-COLON POLYP SESSILE REMOVED INCOMPLETELY, TATOOED, DIVERTICULI IN SIGMOID COLON, INT. HEMS. 01/2020 DR. AMAYA NL ESOPH., NL STOM., NL DUOD., SMALL INSIGN. HH SLEEP APNEA HISTORY OF FALLING ALLERGIES LATEX: RASH - ALLERGY MOTRIN: CONSTIPATION - SIDE EFFECTS ADHESIVE TAPE: RASH - SIDE EFFECTS RUBBER: RASH - SIDE EFFECTS METOPROLOL & DIET MANAGE PROD: NOT SURE QUINOLONE: NOT SURE IBUPROFEN: DIARRHEA - SIDE EFFECTS TEN UNITS: BOIL - SIDE EFFECTS SURGICAL HISTORY RIGHT ARM LIPOMA REMOVAL LOWER BACK SURGERY X2 1970'S HYSTERECTOMY 1979 EGD, COLONOSCOPY-DR. MARTINEZ SEE DETAILS UNDER PMH ABOVE 01/2020 FAMILY HISTORY FATHER: , COLON CANCER MOTHER: , RHEUMATOID SIBLINGS: ALIVE SON(S): ALIVE DAUGHTER(S): ALIVE MATERNAL GRAND FATHER: DIAGNOSED WITH UNSPECIFIED HEART DISEASE 4 BROTHER(S) , 5 SISTER(S) - HEALTHY. 1 SON(S) , 2 DAUGHTER(S) - HEALTHY. MATERNAL AUNTS- RHEUMATOIDOLDER DAUGHTER IS NO LONGER WORKINGOLDEREST BROTHER STOMACH CANCER 2YEARS NOW. SOCIAL HISTORY GENERAL: TOBACCO USE ARE YOU A:FORMER SMOKER HOW LONG HAS IT BEEN SINCE YOU LAST SMOKED?5-10 YEARS 12 YEAARS LATEX QUESTIONNAIRE LATEX ALLERGY : HAVE YOU EVER DEVELOPED ANY TYPE OF REACTION AFTER HANDLING LATEX PRODUCTS SUCH RUBBER GLOVES, CONDOMS, DIAPHRAGMS, BALLOONS, SOCKS, OR UNDERWEAR?YES - PLEASE INDICATE :RUBBER GLOVES LATEX ALLERGY : HAVE YOU EVER DEVELOPED ANY TYPE OF REACTION DURING OR AFTER DENTAL APPOINTMENT, VAGINAL/RECTAL EXAMINATION, SURGICAL PROCEDURE, OR ANY OTHER EXPOSURE?NO LATEX RISK : HAVE YOU EVER HAD ANY DIFFICULTY BREATHING OR HIVES AFTER EATING OR HANDLING ANY FRUITS, OR VEGETABLES; SUCH KIWI, BANANAS, STONE FRUITS, OR CHESTNUTSNO LATEX RISK : DO YOU HAVE A PREVIOUS PERSONAL HISTORY OF MORE THAN NINE SURGERIES, SPINA BIFIDA, OR REPEATED CATHERIZATIONS? NO LATEX RISK : ARE YOU FREQUENTLY EXPOSED TO LATEX PRODUCTS IN YOUR OCCUPATION?NO DATE ASKED : 08/26/2020 ALCOHOL USE: YES, ONCE IN A WHILE. ALCOHOL SCREENING DID YOU HAVE A DRINK CONTAINING ALCOHOL IN THE PAST YEAR?YES HOW OFTEN DID YOU HAVE SIX OR MORE DRINKS ON ONE OCCASION IN THE PAST YEAR?NEVER (0 POINTS) HOW MANY DRINKS DID YOU HAVE ON A TYPICAL DAY WHEN YOU WERE DRINKING IN THE PAST YEAR?3 OR 4 (1 POINT) HOW OFTEN DID YOU HAVE A DRINK CONTAINING ALCOHOL IN THE PAST YEAR?MONTHLY OR LESS (1 POINT) POINTS2 INTERPRETATIONNEGATIVE RECREATIONAL DRUG USE DRUG USE?NO CAFFEINE CAFFEINE USE?YES 2 CUPS COFFEE DAILY, 1 CUP TEA DAILY SEXUAL HX HAD SEX IN THE LAST 12 MONTHS (VAGINAL, ORAL, OR ANAL)?NO TAOISM TAOISM NO ANABAPTIST BELIEFS THAT WOULD IMPACT HEALTH CARE. LANGUAGE LANGUAGES SPOKEN:SETSWANA LEARNING BARRIERS / SPECIAL NEEDS CHANGE FROM LAST VISIT?NO BARRIERS TO LEARNING?NO HEARING IMPAIRED?YES : SOMETIMES VISION IMPAIRED?YES :CORRECTIVE LENSES COGNITIVELY IMPAIRED?NO READINESS TO LEARN?YES LEARNING PREFERENCES?YES :BOOKLETS, HANDOUTS LEARNING CAPABILITIES PRESENT?YES EMOTIONAL BARRIERS?NO SPECIAL DEVICES?YES :CANE, WALKER, WHEELCHAIR, OTHER NEEDED CPAP COUTURIERE NEEDED?NO OCCUPATION: RETIRED. DIET: REGULAR. EXERCISE: NO REGULAR EXERCISE. MARITAL STATUS: . HOSPITALIZATION/MAJOR DIAGNOSTIC PROCEDURE SURGERY CHILDBIRTH 3X DEPRESSION (IMHU) SOB & PRE-SYNCOPE NL PFTS C METHACHOLINE CHALLENGE, NEG. TROPONINS, ECHO GRADE 1 DIASTOLIC DYSFXN NO PERICARD. EFF., NO VALVE DIS. CT OF HEAD -, CT A&P -, CXRAY- 05/2019 [facility] ED-ATYPICAL CHEST PAIN 04/22/2020 REVIEW OF SYSTEMS CONSTITUTIONAL: ANY RECENT FEVER NO . CHILLS NO . WEIGHT CHANGE OF UNKNOWN REASONS NO . GASTROENTEROLOGY: NEW UNEXPLAINABLE CHANGES IN BOWEL CONTROL NO . CONSTIPATION NO . GENITOURINARY: ANY NEW CHANGE IN BLADDER CONTROL? NO . NEUROLOGY: NEW ONSET DIZZINESS OR NEUROLOGICAL CHANGES NOT MENTIONED NO . NEW NUMBNESS OR PAIN PATTERNS NOT MENTIONED AND PERTINENT TO TODAY'S VISIT NO . CARDIOLOGY: NEW CHEST PRESSURE NO . PATIENT DENIES NO . RESPIRATORY: UNEXPLAINABLE COUGH NO . NEW SHORTNESS OF BREATH NO . VITAL SIGNS WT 288.0 LBS, HT 65 IN, BMI 47.92 INDEX, BP 122/55 MM HG, HR 69 /MIN, RR 18 /MIN, TEMP 98.1 F, OXYGEN SAT % 96%, SAFE IN ENV? (Y/N) YES, NA INITIALS AW 1300T.LLOYD RODRIGUEZ. EXAMINATION GENERAL EXAMINATION: GENERALNO ACUTE DISTRESS, WELL NOURISHED AND HYDRATED. ACCOMPANIED IN EXAM ROOM WITH CAREGIVER.. PSYCHAPPROPRIATE MOOD AND AFFECT . FACE:UNREMARKABLE. NECK:NO LYMPHADENOPATHY, SUPPLE, NO THYROMEGALLY. LUNGS:CLEAR TO AUSCULTATION BILATERALLY, NO WHEEZES, RHONCHI, RALES. HEART:NO MURMURS, REGULAR RATE AND RHYTHM. MUSCULOSKELETAL: REQUIRES ASSIST OF TWO TO ARISE TO STANDING POSITION FROM WHEELCHAIR.. LUMBAR: MARKED TENDERNESS OVER BILATERAL SIJ.TENDER OVER L/S AXIS AND PARASPINALS.. ASSESSMENTS ACUTE LOW BACK PAIN - M54.5 (PRIMARY) SACROILIITIS, NOT ELSEWHERE CLASSIFIED - M46.1 MYALGIA, OTHER SITE - M79.18 TREATMENT ACUTE LOW BACK PAIN NOTES: PATIENT IS SUFFERING FROM ACUTE BACK PAIN AFTER A FALL INJURY ON 08/06/2020. IS HAVING DIFFICULTY ATTENDING TO MUCH-NEEDED PHYSICAL THERAPY AND REHABILITATION DUE TO UNCONTROLLED PAIN ON CURRENT PAIN MEDICATION, HYDROCODONE 5/325. I RECOMMEND CHANGING PAIN MEDICATION TO PERCOCET 5/325 ONE EVERY 4-6 HOURS NEEDED FOR PAIN. I WOULD RECOMMEND THAT SHE TAKE THIS A HALF HOUR BEFORE PHYSICAL THERAPY SESSION AND IF NECESSARY AT BEDTIME SO SHE IS ABLE TO GET BETTER SLEEP. PATIENT SHOULD BE ABLE TO USE THIS FOR 6-8 WEEKS AND THEN I WOULD RECOMMENDED THAT IT BE DISCONTINUED. WE WILL SEE HER BACK AT THE PAIN CLINIC IN 6 WEEKS AFTER SHE COMPLETES A GOOD CHUNK OF HER THERAPY AND REHABILITATION. PROCEDURE CODES FA211 ESTABILISHED PATIENT [facility] CHARGE DISPOSITION & COMMUNICATION FOLLOW UP 6-8WKS (REASON: LEFT LOW BACK PAIN/CONSIDER LEFT SACROILIAC JOINT INJECTION) ELECTRONICALLY SIGNED BY TYESHA ROBERTSON ON 09/01/2020 AT 08:44 AM EDT DISCLAIMER : THIS IS A VISIT SUMMARY EXTRACTED FROM THE [employer] CHART. IT IS NOT A COPY OF THE [employer] PROGRESS NOTE. SELMA
== END ==
LOC: M PAIN 13:00
PROVIDERS: ATTEND Nurse Practitioner Family
DX: M54.5 Low back pain (principal); M46.1 Sacroiliitis, not elsewhere classified; M79.18 Myalgia, other site; E11.22 Type 2 diabetes mellitus with diabetic chronic kidney disease; J44.9 Chronic obstructive pulmonary disease, unspecified; G25.81 Restless legs syndrome; I12.9 Hypertensive chronic kidney disease with stage 1 through stage 4 chronic kidney disease, or unspecified chronic kidney disease; F33.9 Major depressive disorder, recurrent, unspecified; F41.1 Generalized anxiety disorder; N18.30 Chronic kidney disease, stage 3 unspecified; K21.9 Gastro-esophageal reflux disease without esophagitis; E55.9 Vitamin D deficiency, unspecified; G47.33 Obstructive sleep apnea (adult) (pediatric); Z87.891 Personal history of nicotine dependence; Z79.4 Long term (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; Z79.01 Long term (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 anticoagulants; Z79.891 Long term (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 opiate analgesic; Z79.899 Other long term (current) drug therapy; Z88.6 Allergy status to analgesic agent; Z88.1 Allergy status to other antibiotic agents; Z88.8 Allergy status to other drugs, medicaments and biological substances; Z91.040 Latex allergy status; Z91.048 Other nonmedicinal substance allergy status

== ENCOUNTER → 2020-09-02 | Outpatient (REF) | payer MEDICARE, MEDICAID | PROVIDERS: ATTEND Internal Medicine | DX: Z20.822 Contact with and (suspected) exposure to COVID-19 (principal) ==

== ENCOUNTER → 2020-09-09 | Outpatient (REF) | payer MEDICARE, MEDICAID ==
[~2020-09-09] MED LIST changes: -CYMB60CA3 PO; +CYMB60CA4 PO; -FENO48TA7 PO; +FENO48TA8 PO; -KLOR10TA76 PO; -LISI-898; -LISI-898 PO; +LISI5TAB11; +LISI5TAB11 PO; +LOSA50TA28 PO; -LOSA50TA88 PO; +MELA10CA PO; +NYSTOI TOP; +OXYC1TAB23 PO; +POTA-136 PO; +POTA-151 PO; -POTA20TA6 PO
== END ==
PROVIDERS: ATTEND Internal Medicine
DX: Z20.822 Contact with and (suspected) exposure to COVID-19 (principal); Z01.89 Encounter for other specified special examinations

== ENCOUNTER → 2020-10-07 | Outpatient (CLI) | payer MEDICARE, MEDICAID ==
[~2020-10-07] MED LIST changes: +CYMB60CA3 PO; -CYMB60CA4 PO; +FENO48TA7 PO; -FENO48TA8 PO; +KLOR10TA76 PO; +LISI-898; +LISI-898 PO; -LISI5TAB11; -LISI5TAB11 PO; -LOSA50TA28 PO; +LOSA50TA88 PO; -MELA10CA PO; -NYSTOI TOP; -OXYC1TAB23 PO; -POTA-136 PO; -POTA-151 PO; +POTA20TA6 PO
--- NOTE | 2020-10-08 03:25 | ECWPNPC ---
PATIENT NAME: MANJU MILLS : 1950 GENDER: FEMALE VISIT DATE: 10/07/2020 DISCHARGE DATE: 10/07/20920 VISIT LOCKED DATE TIME: PHYSICIAN: ARABELLA MASON PHYSICIAN PAGER NO: ACTIVE RESOURCE: ARABELLA MASON REASON FOR APPOINTMENT 1. LEFT LOW BACK PAIN/CONSIDER LEFT SACROILIAC JOINT INJECTION HISTORY OF PRESENT ILLNESS GENERAL: HERE FOR FOLLOW-UP AFTER INITIAL EVALUATION IN AUGUST FOR SEVERE LOW BACK PAIN AFTER A FALL INJURY IN [place]UL[place]. TODAY SHE LOOKS MUCH BETTER THAN SHE DID IN [place]. DOES COMPLAIN OF LOW BACK PAIN AND LEFT HIP PAIN. VAGUE HISTORIAN AT TIMES. SHE IS ANGRY THAT THEY ARE DISCONTINUING HER PERCOCET AND RECOMMENDING THAT SHE USE TYLENOL. SHE STATES TYLENOL IS INEFFECTIVE. STATES SHE CONTINUES TO DO SOME HOME THERAPY. SHE IS BACK IN A ASSISTED LIVING SITUATION INSTEAD OF REHAB.-. FALL RISK SCREENING: SCREENING ONE FALL INJURY IN [place]. PAIN SCREENING: PATIENT HAS A COMPLAINT OF ACUTE OR CHRONIC PAIN :YES LOCATION OF PAIN:LOW BACK LEFT SACROILIAC INTENSITY OF PAIN (SCALE OF 1 TO 10):8 WHAT DOES YOUR PAIN FEEL LIKE:CONTINOUS, STABBING, THROBBING DURATION:CONTINOUS, CONSTANT, ALL DAY PAIN IS INCREASED BY:ACTIVITIES, OTHERS SITTING FOR A LONG PAIN IS DECREASED BY:USE OF PAIN MEDICATIONS NURSING NOTE: -. PAIN CENTER INTAKE QUESTIONS: DO YOU HAVE A HISTORY OF MRSA? :NO DO YOU TAKE A BLOOD THINNERS? :YES ELIQUIS 5 MG DO YOU HAVE ANY BLEEDING DISORDERS? :YES ANY NEW NUMBNESS OR WEAKNESS IN YOUR LEGS OR ARMS? :YES LEFT SIDE OF THE BODY ANY PACEMAKER,DEFIBRILLATOR, OR DORSAL COLUMN STIMULATOR? :NO DO YOU HAVE ANY RASHES OR OPEN SORES? :YES RASHES ARE YOU ALLERGIC TO IV DYE? :NO ARE YOU DIABETIC? :YES TYPE 2 ANY NEW PROBLEMS WITH YOUR MEDICATIONS? :NO HAVE YOU RECEIVED A VACCINE IN THE PAST 30 DAYS? :NO HAD BOTH COVID SHOT DO YOU PLAN TO RECEIVE A VACCINE IN THE NEXT 21 DAYS? :NO DO YOU NEED ANY PRESCRIPTION? :NO DO YOU TAKE ANY IMMUNOSUPPRESSIVE MEDICATIONS? :NO IS THERE A CHANCE YOU COULD BE ? :NO ARE YOU BREAST FEEDING? :NO CURRENT MEDICATIONS TAKING ACETAMINOPHEN ER 650 MG TABLET EXTENDED RELEASE 2 TABLETS NEEDED ORALLY EVERY 12 HOURS, NOTES: ON DISCHARGE 05/13/20 FROM [facility] TAKING MAY HAVE - - ROLATOR _ DAILY TAKING MAY HAVE - - COMPRESSION STOCKING 15MMHG CIRC. AT CALF 43CM, SIZE 12 SHOE WOMEN'S ENTIRE SOCK INCLUDED TOPICALLY DAILY WHILE OUT OF BED TAKING WALKER - MISCELLANEOUS 4 WHEELED WALKER WITH SEAT DX M51.36 TAKING AMMONIUM LACTATE 12 % CREAM 1 APPLICATION EXTERNALLY MAY HAVE A BED SIDE ONCE A DAY ON HER FEET TAKING FLUTICASONE PROPIONATE 50 MCG/ACT SUSPENSION 2 SPRAY IN EACH NOSTRIL NASALLY ONCE A DAY TAKING HUMALOG KWIKPEN 100 UNIT/ML SOLUTION PEN-INJECTOR 24U QAM,28U @NOON,20U AT DINNER ALL C MEALS SUBCUTANEOUS THREE TIMES DAILY C MEALS MDD 75UNITS/DAY TAKING NOVOLOG 100 UNIT/ML SOLUTION ; MDD 116UNITS SUBCUTANEOUS SSCALE FOR 8AM, 12NOON; DIFF. SSCALE FOR HS TAKING VOLTAREN 1 % GEL DIRECTED EXTERNALLY TAKING MELATONIN ER 10 MG TABLET EXTENDED RELEASE DIRECTED ORALLY TAKING PROAIR HFA 108 (90 BASE) MCG/ACT AEROSOL SOLUTION 2 PUFFS NEEDED INHALATION QID PRN TAKING ALBUTEROL SULFATE (2.5 MG/3ML) 0.083% NEBULIZATION SOLUTION 3 ML NEEDED INHALATION EVERY 4 HRS NEEDED FOR SOB TAKING INSULIN GLARGINE 100 UNIT/ML SOLUTION 84 UNITS AT HS SUBCUTANEOUS TAKING LIPITOR 20 MG TABLET 1 TABLET ORALLY ONCE A DAY TAKING LOSARTAN POTASSIUM 50 MG TABLET 1 TABLET ORALLY ONCE A DAY TAKING AMLODIPINE BESYLATE 5 MG TABLET 1 TABLET ORALLY ONCE A DAY TAKING POTASSIUM CHLORIDE ROSALIO ER 20 MEQ TABLET EXTENDED RELEASE 1 TABLET WITH FOOD ORALLY ONCE A DAY TAKING CHLORTHALIDONE 25 MG TABLET 1 TAB ORALLY ONCE A DAY TAKING ELIQUIS 5 MG TABLET 1 TAB ORALLY BID TAKING ADVAIR DISKUS 100-50 MCG/DOSE MISCELLANEOUS DIRECTED INHALATION BID TAKING VASCEPA 1 GM CAPSULE 2 CAPSULES WITH MEALS ORALLY TWICE A DAY TAKING CALCIUM CARBONATE 1250 (500 CA) MG TABLET CHEWABLE 1 TABLET ORALLY ONCE A DAY TAKING VITAMIN D3 49488 UNIT CAPSULE 1 CAPSULE ORALLY TAKING HYDROCODONE-ACETAMINOPHEN 5-325 MG TABLET 1 TABLET NEEDED ORALLY EVERY 6 HRS NEEDED TAKING ACETAMINOPHEN 325 MG TABLET 1 TABLET NEEDED ORALLY EVERY 4 HRS TAKING LANTUS SOLOSTAR 100 UNIT/ML SOLUTION 48U AT QHS, 84U AT QAM SUBCUTANEOUSLY BID: [id number] TAKING INSULIN LISPRO PROT & LISPRO (75-25) 100 UNIT/ML SUSPENSION PEN-INJECTOR 24 UNITS @ 800; 28UNITS AT 12:00NOON; 20UNITS AT 16:30 C MEALS: MDD SUBCUTANEOUS TID AC, MDD: 75UNITS TAKING VICTOZA 18 MG/3ML SOLUTION 1.2 UNITS SUBCUTANEOUS DAILY TAKING OMEPRAZOLE 40 MG CAPSULE DELAYED RELEASE 1 CAPSULE ORALLY ONCE A DAY TAKING NYSTATIN [id number] UNIT/GM CREAM 1 APPLICATION UNDER PANNUS EXTERNALLY TWICE A DAY TAKING MILK OF MAGNESIA 400 MG/5ML SUSPENSION 5 ML AT LEAST 4 HOURS BETWEEN DOSES NEEDED ORALLY FOUR TIMES A DAY TAKING PREGABALIN 100 MG CAPSULE 1 CAPSULE ORALLY BID TAKING NEEDLE (DISP) 30G X 1" MISCELLANEOUS DX E11.9 BD AUTOSHIELD BID TAKING CYMBALTA 60 MG 1 CAP PO TWICE DAILY MEDICATION LIST REVIEWED AND RECONCILED WITH THE PATIENT PAST MEDICAL HISTORY TYPE 2 DIABETE COPD-QUIT 12YRS. AGO TOB. USE RLS HYPERTENSION, ESSENTIAL CHRONIC MDD/GERMÁN HYPERLIPIDEMIA ALLERGIC RHINITIS OA OF KNEES, WRISTS H/O LT. DVT, BILAT. PE ON CHRONIC DOAC CKD STAGE III GERD VITAMIN D DEFICIENCY BERYL ON CHRONIC CPAP 01/2020 DR MARTINEZ-COLON POLYP SESSILE REMOVED INCOMPLETELY, TATOOED, DIVERTICULI IN SIGMOID COLON, INT. HEMS. 01/2020 DR. AMAYA NL ESOPH., NL STOM., NL DUOD., SMALL INSIGN. SLEEP APNEA HISTORY OF FALLING HAD A FALL INJURY ON 08/06/2020 AFTER A SYNCOPAL EPISODE. SHE WAS HOSPITALIZED AT [facility] FOR 3 OR 4 DAYS AFTER THE FALL ALLERGIES LATEX: RASH - ALLERGY MOTRIN: CONSTIPATION - SIDE EFFECTS ADHESIVE TAPE: RASH - SIDE EFFECTS RUBBER: RASH - SIDE EFFECTS METOPROLOL & DIET MANAGE PROD: NOT SURE QUINOLONE: NOT SURE IBUPROFEN: DIARRHEA - SIDE EFFECTS TEN UNITS: BOIL - SIDE EFFECTS SOCIAL HISTORY GENERAL: TOBACCO USE ARE YOU A:FORMER SMOKER HOW LONG HAS IT BEEN SINCE YOU LAST SMOKED?5-10 YEARS 12 YEAARS LATEX QUESTIONNAIRE LATEX ALLERGY : HAVE YOU EVER DEVELOPED ANY TYPE OF REACTION AFTER HANDLING LATEX PRODUCTS SUCH RUBBER GLOVES, CONDOMS, DIAPHRAGMS, BALLOONS, SOCKS, OR UNDERWEAR?YES - PLEASE INDICATE :RUBBER GLOVES LATEX ALLERGY : HAVE YOU EVER DEVELOPED ANY TYPE OF REACTION DURING OR AFTER DENTAL APPOINTMENT, VAGINAL/RECTAL EXAMINATION, SURGICAL PROCEDURE, OR ANY OTHER EXPOSURE?NO LATEX RISK : HAVE YOU EVER HAD ANY DIFFICULTY BREATHING OR HIVES AFTER EATING OR HANDLING ANY FRUITS, OR VEGETABLES; SUCH KIWI, BANANAS, STONE FRUITS, OR CHESTNUTSNO LATEX RISK : DO YOU HAVE A PREVIOUS PERSONAL HISTORY OF MORE THAN NINE SURGERIES, SPINA BIFIDA, OR REPEATED CATHERIZATIONS? NO LATEX RISK : ARE YOU FREQUENTLY EXPOSED TO LATEX PRODUCTS IN YOUR OCCUPATION?NO DATE ASKED : 10/07/2020 ALCOHOL USE: NO. ALCOHOL SCREENING DID YOU HAVE A DRINK CONTAINING ALCOHOL IN THE PAST YEAR?YES HOW OFTEN DID YOU HAVE SIX OR MORE DRINKS ON ONE OCCASION IN THE PAST YEAR?NEVER (0 POINTS) HOW MANY DRINKS DID YOU HAVE ON A TYPICAL DAY WHEN YOU WERE DRINKING IN THE PAST YEAR?3 OR 4 (1 POINT) HOW OFTEN DID YOU HAVE A DRINK CONTAINING ALCOHOL IN THE PAST YEAR?MONTHLY OR LESS (1 POINT) POINTS2 INTERPRETATIONNEGATIVE RECREATIONAL DRUG USE DRUG USE?NO CAFFEINE CAFFEINE USE?YES 2 CUPS COFFEE DAILY, 1 CUP TEA DAILY SEXUAL HX HAD SEX IN THE LAST 12 MONTHS (VAGINAL, ORAL, OR ANAL)?NO LATTER DAY LATTER DAY NO ZOROASTRIANISM BELIEFS THAT WOULD IMPACT HEALTH CARE. LANGUAGE LANGUAGES SPOKEN:KHMER LEARNING BARRIERS / SPECIAL NEEDS CHANGE FROM LAST VISIT?NO BARRIERS TO LEARNING?NO HEARING IMPAIRED?YES : SOMETIMES VISION IMPAIRED?YES :CORRECTIVE LENSES COGNITIVELY IMPAIRED?YES READINESS TO LEARN?YES LEARNING PREFERENCES?YES :BOOKLETS, HANDOUTS LEARNING CAPABILITIES PRESENT?YES EMOTIONAL BARRIERS?NO SPECIAL DEVICES?YES :CANE, WALKER, WHEELCHAIR, OTHER NEEDED CPAP PAN DEVULCANIZER NEEDED?NO OCCUPATION: RETIRED. DIET: REGULAR. EXERCISE: NO REGULAR EXERCISE. MARITAL STATUS: . REVIEW OF SYSTEMS CONSTITUTIONAL: ANY RECENT FEVER NO . CHILLS NO . WEIGHT CHANGE OF UNKNOWN REASONS NO . GASTROENTEROLOGY: NEW UNEXPLAINABLE CHANGES IN BOWEL CONTROL NO . CONSTIPATION NO . GENITOURINARY: ANY NEW CHANGE IN BLADDER CONTROL? NO . NEUROLOGY: NEW ONSET DIZZINESS OR NEUROLOGICAL CHANGES NOT MENTIONED NO . NEW NUMBNESS OR PAIN PATTERNS NOT MENTIONED AND PERTINENT TO TODAY'S VISIT NO . CARDIOLOGY: NEW CHEST PRESSURE NO . PATIENT DENIES NO . RESPIRATORY: UNEXPLAINABLE COUGH NO . NEW SHORTNESS OF BREATH NO . VITAL SIGNS WT 292 LBS, HT 65 IN, BMI 48.59 INDEX, BP 151/67 MM HG, HR 59 /MIN, RR 18 /MIN, TEMP 96.1 F, OXYGEN SAT % 96%, SAFE IN ENV? (Y/N) YEST.LLOYD RODRIGUEZ. EXAMINATION GENERAL EXAMINATION: GENERALNO ACUTE DISTRESS, WELL NOURISHED AND HYDRATED.WALKS WITH WHEELED WALKER WITH SLOW ANTALGIC GAIT. PSYCHCONSTRICTED, ANGRY AT TIMES.. LUNGS:CLEAR TO AUSCULTATION BILATERALLY, NO WHEEZES, RHONCHI, RALES. HEART:NO MURMURS, REGULAR RATE AND RHYTHM. LUMBAR:WELL-HEALED SURGICAL SCAR ON LS AXIS. MARKED TENDERNESS NOTED OVER LOWER LUMBAR SACRAL REGION WITH PALPATION. TENDERNESS NOTED OVER LEFT HIP.. ASSESSMENTS LOW BACK PAIN - M54.5 (PRIMARY) HIP PAIN - M25.559 TREATMENT LOW BACK PAIN NOTES: CONTINUE HOME EXERCISE AND THERAPY. RECOMMEND SLOWLY DISCONTINUING OXYCODONE TOLERATED OVER THE COURSE OF THE NEXT 2 MONTHS. PLEASE CALL PAIN CLINIC IF HER PAIN IS OUT OF CONTROL AND WE WILL REEVALUATE. PROCEDURE CODES FA211 ESTABILISHED PATIENT [facility] CHARGE DISPOSITION & COMMUNICATION FOLLOW UP PATIENT WILL CALL FOR FOLLOW-UP (REASON: LOW BACK PAIN, LEFT HIP PAIN) ELECTRONICALLY SIGNED BY TYESHA ROBERTSON ON 10/07/2020 AT 01:15 PM EDT DISCLAIMER : THIS IS A VISIT SUMMARY EXTRACTED FROM THE [employer] CHART. IT IS NOT A COPY OF THE [employer] PROGRESS NOTE. SELMA
== END ==
LOC: M PAIN 09:00
PROVIDERS: ATTEND Nurse Practitioner Family
DX: M54.5 Low back pain (principal); M25.559 Pain in unspecified hip; E11.22 Type 2 diabetes mellitus with diabetic chronic kidney disease; J44.9 Chronic obstructive pulmonary disease, unspecified; G25.81 Restless legs syndrome; F33.9 Major depressive disorder, recurrent, unspecified; F41.0 Panic disorder [episodic paroxysmal anxiety]; J30.9 Allergic rhinitis, unspecified; M17.0 Bilateral primary osteoarthritis of knee; M19.031 Primary osteoarthritis, right wrist; M19.032 Primary osteoarthritis, left wrist; N18.30 Chronic kidney disease, stage 3 unspecified; K21.9 Gastro-esophageal reflux disease without esophagitis; E55.9 Vitamin D deficiency, unspecified; G47.33 Obstructive sleep apnea (adult) (pediatric); Z87.891 Personal history of nicotine dependence; Z79.4 Long term (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; Z79.891 Long term (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 opiate analgesic; Z79.899 Other long term (current) drug therapy; Z88.6 Allergy status to analgesic agent; Z88.1 Allergy status to other antibiotic agents; Z88.8 Allergy status to other drugs, medicaments and biological substances; Z91.040 Latex allergy status; Z91.048 Other nonmedicinal substance allergy status

== ENCOUNTER → 2020-10-15 | Outpatient (CLI) | payer MEDICARE, MEDICAID ==
--- NOTE | 2020-10-15 12:46 | REP ---
INDICATION: EDEMA, UNSPECIFIED. COMPARISON: None. TECHNIQUE: Four views FINDINGS: The joint spaces are symmetric and relatively well maintained. There is no evidence of acute fracture or destructive osseous lesion. Degenerative changes seen throughout the foot. Large plantar and particularly retrocalcaneal heel spurs are present IMPRESSION: No acute abnormality. Chronic changes as described above. <Electronically signed by Hernesto Tomlinson > 10/15/20 [id number]
== END ==
LOC: M RAD 10:23
PROVIDERS: ATTEND Physician Assistant Medical
DX: M77.32 Calcaneal spur, left foot (principal); R60.9 Edema, unspecified

== ENCOUNTER → 2020-10-22 | Outpatient (CLI) | payer MEDICARE, MEDICAID ==
--- NOTE | 2020-10-22 14:12 | REP ---
INDICATION: LOW BACK PAIN. COMPARISON: 09/28/2019 TECHNIQUE: Five views FINDINGS: Chronic changes are again seen throughout the lumbar spine status quo. Heavy bilateral marginal osteophytosis is noted status quo. There is advanced disc space narrowing at every level status quo. There is advanced degenerative facet joint change seen bilaterally at every level status quo. There is anterior lipping again seen at every level status quo. There is no significant change in appearance of vertebral body height or alignment. Once again, the examination is limited due to the patient's body habitus. IMPRESSION: Stable appearing advanced chronic changes as described above. Consider CT since the patient has been involved in trauma. A subtle fracture could be obscured by the limitations of this plain film exam. <Electronically signed by Hernesto Tomlinson > 10/22/20 [id number]
[2020-10-22 15:42] LABS: ALBUMIN 3.9 GM/DL (3.2-5.2); BILIRUBIN,TOTAL 0.4 MG/DL (0.2-1.0); CALCIUM LEVEL 9.8 MG/DL (8.8-10.2); CREATININE FOR GFR 1.1 MG/DL (0.55-1.30); GLOMERULAR FILTRATION RATE 52.4 (>45); POTASSIUM SERUM 4.3 MEQ/L (3.5-5.1)
[2020-10-22 15:43] LABS: HEMOGLOBIN A1c 8.1 %
== END ==
LOC: M PLAIMG 13:02
PROVIDERS: ATTEND Physician Assistant Medical
DX: M25.78 Osteophyte, vertebrae (principal); M54.5 Low back pain; E11.22 Type 2 diabetes mellitus with diabetic chronic kidney disease; N18.30 Chronic kidney disease, stage 3 unspecified

== ENCOUNTER → 2020-10-26 | Outpatient (CLI) | payer MEDICARE, MEDICAID ==
[~2020-10-26] MED LIST changes: +MELA10CA PO; +NYSTOI TOP; +OXYC1TAB23 PO
== END ==
LOC: M LABSMTC 10:19
PROVIDERS: ATTEND Anesthesiology
DX: Z01.812 Encounter for preprocedural laboratory examination (principal); Z20.822 Contact with and (suspected) exposure to COVID-19
CPT/HCPCS: G0463; U0003

== ENCOUNTER → 2020-10-28 | Outpatient (CLI) | payer MEDICARE, MEDICAID ==
--- NOTE | 2020-10-28 18:40 | REPVR ---
PROCEDURE INFORMATION: Exam: CT Lumbar Spine Without Contrast Exam date and time: 10/28/2020 10:27 AM Age: 70 years old Clinical indication: Injury or trauma; Fall; Sprain or strain, lumbar ligaments; Additional info: Lbp TECHNIQUE: Imaging protocol: Computed tomography images of the lumbar spine without contrast. Radiation optimization: All CT scans at this facility use at least one of these dose optimization techniques: automated exposure control; mA and/or kV adjustment per patient size (includes targeted exams where dose is matched to clinical indication); or iterative reconstruction. COMPARISON: CT Spine, lumbar w/o contrast 08/04/2020 7:00 AM FINDINGS: Vertebrae: Mild retrolisthesis of T12 and L1. Shallow levoscoliosis. L1-L2: There is marked disc space narrowing and a severe degenerative central spinal stenosis at L1-L2 secondary to diffuse annular bulging, thickened ligamentum flavum with facet joint arthropathy. L2-L3: There is marked disc space narrowing and a severe degenerative central spinal stenosis at L2-L3 secondary to diffuse annular bulging, thickened ligamentum flavum with facet joint arthropathy. L3-L4: Marked disc space narrowing at L3-L4. Status post bilateral laminectomy at L4 with adequate decompression of the thecal sac. Moderate bilateral facet joint arthropathy. L4-L5: Marked disc space narrowing L4-L5 with a prominent intervertebral osteophyte impinging on the anterior thecal sac. Status post bilateral laminectomy. No spinal stenosis. Moderate bilateral facet joint arthropathy. L5-S1: Marked disc space narrowing L5-S1. No central spinal stenosis. [id number] bilateral foraminal stenosis Soft tissues: Unremarkable. IMPRESSION: 1. Degenerative spondylosis. 2. There are spinal stenoses as described above, severe at L1-L2 and L2-L3. 3. No acute findings. Electronically signed by: Quentin Harry On 10/28/2020 18:39:45 PM
== END ==
LOC: M PLAIMG 10:00
PROVIDERS: ATTEND Physician Assistant Medical
DX: M54.5 Low back pain (principal)

== ENCOUNTER → 2020-10-28 | Outpatient (REF) ==
[2020-10-28 10:38] LABS: BASO # 0.1 10^3/uL (0.0-0.2); BASO % 0.8 % (0.0-1.0); EOS # 0.1 10^3/uL (0.0-0.5); EOS % 2.1 % (0.0-3.0); HEMATOCRIT 37.1 % (36.0-47.0); HEMOGLOBIN 12.1 g/dl (12.0-15.5); LYMPH # 1.9 10^3/uL (1.5-5.0); LYMPH % 28.8 % (24.0-44.0); MEAN CORPUSCULAR HEMOGLOBIN 27.9 pg (27.0-33.0); MEAN CORPUSCULAR HGB CONC 32.6 g/dl (32.0-36.5); MEAN CORPUSCULAR VOLUME 85.7 fl (80.0-96.0); MONO # 0.5 10^3/uL (0.0-0.8); MONO % 7.6 % (2.0-8.0); NEUTROPHILS % 60.2 % (36.0-66.0); PLATELET COUNT, AUTOMATED 267 10^3/uL (150-450); RED BLOOD COUNT 4.33 10^6/uL (4.00-5.40); WHITE BLOOD COUNT 6.6 10^3/uL (4.0-10.0)
[2020-10-28 10:44] LABS: INR 0.97; PROTHROMBIN TIME 13.3 SECONDS (12.7-14.5)
[2020-10-28 10:45] LABS: PARTIAL THROMBOPLASTIN TIME 29.2 SECONDS (25.9-37.0)
[2020-10-28 11:13] LABS: ALBUMIN 3.7 GM/DL (3.2-5.2); BILIRUBIN,TOTAL 0.4 MG/DL (0.2-1.0); CALCIUM LEVEL 8.8 MG/DL (8.8-10.2); CREATININE FOR GFR 0.99 MG/DL (0.55-1.30); GLOMERULAR FILTRATION RATE 59.2 (>45); POTASSIUM SERUM 4.1 MEQ/L (3.5-5.1); TOTAL PROTEIN 6.9 GM/DL (6.4-8.2)
== END ==
PROVIDERS: ATTEND Family Medicine
DX: Z01.818 Encounter for other preprocedural examination (principal); Z86.010 Personal history of colon polyps

== ENCOUNTER → 2020-12-02 | Outpatient (REF) | payer MEDICARE, MEDICAID ==
[~2020-12-02] MED LIST changes: -KLOR10TA76 PO; +POTA-136 PO
== END ==
PROVIDERS: ATTEND Physician Assistant
DX: Z53.21 Procedure and treatment not carried out due to patient leaving prior to being seen by health care provider (principal)

== ENCOUNTER → 2020-12-02 | Outpatient (CLI) | payer MEDICARE, MEDICAID ==
[~2020-12-02] MED LIST changes: -CYMB60CA3 PO; +CYMB60CA4 PO; -FENO48TA7 PO; +FENO48TA8 PO
[2020-12-02 13:54] LABS: BASO % 0.6 % (0.0-1.0); EOS # 0.1 10^3/uL (0.0-0.5); HEMATOCRIT 35.5 % (36.0-47.0); HEMOGLOBIN 11.5 g/dl (12.0-15.5); LYMPH # 2.1 10^3/uL (1.5-5.0); MEAN CORPUSCULAR HEMOGLOBIN 27.7 pg (27.0-33.0); MEAN CORPUSCULAR HGB CONC 32.4 g/dl (32.0-36.5); MEAN CORPUSCULAR VOLUME 85.5 fl (80.0-96.0); MONO # 0.4 10^3/uL (0.0-0.8); MONO % 6.1 % (2.0-8.0); NEUTROPHILS # 4.3 10^3/uL (1.5-8.5); NEUTROPHILS % 60.9 % (36.0-66.0); PLATELET COUNT, AUTOMATED 259 10^3/uL (150-450); RED BLOOD COUNT 4.15 10^6/uL (4.00-5.40)
[2020-12-02 16:13] LABS: HEMOGLOBIN A1c 8.7 %
== END ==
LOC: M PLALAB 08:45
PROVIDERS: ATTEND Physician Assistant Medical
DX: E11.22 Type 2 diabetes mellitus with diabetic chronic kidney disease (principal); I11.0 Hypertensive heart disease with heart failure; I50.32 Chronic diastolic (congestive) heart failure; G44.209 Tension-type headache, unspecified, not intractable; G47.33 Obstructive sleep apnea (adult) (pediatric); G54.5 Neuralgic amyotrophy
CPT/HCPCS: 36415; 83036; 83880; 85025; G0463

== ENCOUNTER → 2020-12-14 | Outpatient (REF) | payer MEDICARE, MEDICAID ==
[~2020-12-14] MED LIST changes: +CYMB60CA3 PO; -CYMB60CA4 PO; +FENO48TA7 PO; -FENO48TA8 PO
[2020-12-14 11:21] LABS: CALCIUM LEVEL 9.3 MG/DL (8.8-10.2); CREATININE FOR GFR 1.15 MG/DL (0.55-1.30); GLOMERULAR FILTRATION RATE 49.8 (>45); POTASSIUM SERUM 4.2 MEQ/L (3.5-5.1)
== END ==
PROVIDERS: ATTEND Physician Assistant Medical
DX: I50.32 Chronic diastolic (congestive) heart failure (principal)

== ENCOUNTER → 2020-12-30 | Outpatient (REF) | payer MEDICARE, MEDICAID ==
[~2020-12-30] MED LIST changes: -CYMB60CA3 PO; +CYMB60CA4 PO; -FENO48TA7 PO; +FENO48TA8 PO
[2020-12-30 13:43] LABS: APPEARANCE, URINE HAZY (CLEAR); BACTERIA, URINE AUTO NEGATIVE (NEGATIVE); BILIRUBIN, URINE AUTO NEGATIVE (NEGATIVE); BLOOD, URINE BLOOD NEGATIVE (NEGATIVE); COLOR, URINE YELLOW (YELLOW); GLUCOSE, URINE (UA) AUTO 1+ mg/dL (NEGATIVE); KETONE, URINE AUTO NEGATIVE (NEGATIVE); LEUKOCYTE ESTERASE, URINE AUTO NEGATIVE (NEGATIVE); NITRITE, URINE AUTO NEGATIVE (NEGATIVE); PROTEIN, URINE AUTO 1+ mg/dL (NEGATIVE); RBC, URINE AUTO 0 /HPF (0-3); SQUAMOUS EPITHELIAL CELL UR AU 2 /HPF (0-6); UROBILINOGEN, URINE AUTO 0.2 mg/dL (0.0-2.0); WBC, URINE AUTO 0 /HPF (0-3)
== END ==
LOC: M SFHCPLAZ 12:43
PROVIDERS: ATTEND Physician Assistant Medical
DX: R35.1 Nocturia (principal)

== ENCOUNTER → 2021-01-27 | Outpatient (CLI) | payer MEDICARE, MEDICAID ==
[2021-01-27 13:15] LABS: BASO # 0.1 10^3/uL (0.0-0.2); BASO % 0.7 % (0.0-1.0); EOS # 0.2 10^3/uL (0.0-0.5); EOS % 2.1 % (0.0-3.0); HEMATOCRIT 37.9 % (36.0-47.0); HEMOGLOBIN 12.4 g/dl (12.0-15.5); LYMPH # 2.3 10^3/uL (1.5-5.0); LYMPH % 26.6 % (24.0-44.0); MEAN CORPUSCULAR HEMOGLOBIN 27.7 pg (27.0-33.0); MEAN CORPUSCULAR HGB CONC 32.7 g/dl (32.0-36.5); MEAN CORPUSCULAR VOLUME 84.6 fl (80.0-96.0); MONO # 0.6 10^3/uL (0.0-0.8); MONO % 7.1 % (2.0-8.0); NEUTROPHILS # 5.5 10^3/uL (1.5-8.5); NEUTROPHILS % 63.2 % (36.0-66.0); PLATELET COUNT, AUTOMATED 268 10^3/uL (150-450); RED BLOOD COUNT 4.48 10^6/uL (4.00-5.40); WHITE BLOOD COUNT 8.8 10^3/uL (4.0-10.0)
[2021-01-27 13:52] LABS: HEMOGLOBIN A1c 10.1 %
[2021-01-27 13:56] LABS: ERYTHROCYTE SEDIMENTATION RATE 30 mm/hr (0-30)
[2021-01-27 13:59] LABS: ALBUMIN 3.7 GM/DL (3.2-5.2); BILIRUBIN,TOTAL 0.5 MG/DL (0.2-1.0); C REACTIVE PROTEIN QUANTITATIV 0.72 MG/DL (0.00-0.30); CALCIUM LEVEL 9.7 MG/DL (8.8-10.2); CREATININE FOR GFR 1.12 MG/DL (0.55-1.30); GLOMERULAR FILTRATION RATE 51.3 (>45); POTASSIUM SERUM 4.2 MEQ/L (3.5-5.1); TOTAL PROTEIN 7.5 GM/DL (6.4-8.2)
== END ==
LOC: M PLALAB 10:29
PROVIDERS: ATTEND Physician Assistant Medical
DX: R35.1 Nocturia (principal); N18.30 Chronic kidney disease, stage 3 unspecified; M54.50 Low back pain, unspecified; I50.33 Acute on chronic diastolic (congestive) heart failure; E11.22 Type 2 diabetes mellitus with diabetic chronic kidney disease

== ENCOUNTER → 2021-02-01 | Outpatient (REF) | payer MEDICARE, MEDICAID ==
[2021-02-01 10:51] LABS: BASO # 0.1 10^3/uL (0.0-0.2); BASO % 0.9 % (0.0-1.0); EOS # 0.2 10^3/uL (0.0-0.5); EOS % 2.8 % (0.0-3.0); HEMATOCRIT 36.9 % (36.0-47.0); HEMOGLOBIN 12.1 g/dl (12.0-15.5); LYMPH # 1.8 10^3/uL (1.5-5.0); LYMPH % 28.4 % (24.0-44.0); MEAN CORPUSCULAR HEMOGLOBIN 27.9 pg (27.0-33.0); MEAN CORPUSCULAR HGB CONC 32.8 g/dl (32.0-36.5); MONO # 0.6 10^3/uL (0.0-0.8); MONO % 8.6 % (2.0-8.0); NEUTROPHILS # 3.8 10^3/uL (1.5-8.5); PLATELET COUNT, AUTOMATED 259 10^3/uL (150-450); RED BLOOD COUNT 4.34 10^6/uL (4.00-5.40); WHITE BLOOD COUNT 6.4 10^3/uL (4.0-10.0)
[2021-02-01 11:10] LABS: ERYTHROCYTE SEDIMENTATION RATE 33 mm/hr (0-30)
[2021-02-01 11:20] LABS: HEMOGLOBIN A1c 9.7 %
[2021-02-01 11:26] LABS: ALBUMIN 3.5 GM/DL (3.2-5.2); BILIRUBIN,TOTAL 0.4 MG/DL (0.2-1.0); C REACTIVE PROTEIN QUANTITATIV 0.7 MG/DL (0.00-0.30); CALCIUM LEVEL 9.2 MG/DL (8.8-10.2); CREATININE FOR GFR 1.07 MG/DL (0.55-1.30); GLOMERULAR FILTRATION RATE 54.1 (>45); TOTAL PROTEIN 6.9 GM/DL (6.4-8.2)
== END ==
PROVIDERS: ATTEND Physician Assistant Medical
DX: I50.33 Acute on chronic diastolic (congestive) heart failure (principal); E11.22 Type 2 diabetes mellitus with diabetic chronic kidney disease

== ENCOUNTER → 2021-02-11 | Outpatient (REF) | payer MEDICARE ==
[2021-02-11 18:19] LABS: APPEARANCE, URINE HAZY (CLEAR); BACTERIA, URINE AUTO NEGATIVE (NEGATIVE); BILIRUBIN, URINE AUTO NEGATIVE (NEGATIVE); BLOOD, URINE BLOOD NEGATIVE (NEGATIVE); COLOR, URINE YELLOW (YELLOW); GLUCOSE, URINE (UA) AUTO 1+ mg/dL (NEGATIVE); KETONE, URINE AUTO TRACE mg/dL (NEGATIVE); LEUKOCYTE ESTERASE, URINE AUTO NEGATIVE (NEGATIVE); MUCUS, URINE SMALL (NEGATIVE); NITRITE, URINE AUTO NEGATIVE (NEGATIVE); PROTEIN, URINE AUTO 2+ mg/dL (NEGATIVE); RBC, URINE AUTO 2 /HPF (0-3); SPECIFIC GRAVITY URINE AUTO 1.024 (1.002-1.035); SQUAMOUS EPITHELIAL CELL UR AU 5 /HPF (0-6); WBC, URINE AUTO 1 /HPF (0-3)
== END ==
LOC: M SFHCPLAZ 17:34
PROVIDERS: ATTEND Physician Assistant Medical
DX: R30.0 Dysuria (principal)

== ENCOUNTER → 2021-03-02 | Outpatient (REF) | payer MEDICARE, MEDICAID | PROVIDERS: ATTEND Physician Assistant Medical | DX: Z20.822 Contact with and (suspected) exposure to COVID-19 (principal) ==

== ENCOUNTER → 2021-03-18 | Outpatient (REF) | payer MEDICARE, MEDICAID ==
[~2021-03-18] MED LIST changes: -LISI-898; -LISI-898 PO; +LISI5TAB11; +LISI5TAB11 PO; +LOSA50TA28 PO; -LOSA50TA88 PO; +POTA-151 PO; -POTA20TA6 PO
== END ==
PROVIDERS: ATTEND Physician Assistant Medical
DX: Z20.822 Contact with and (suspected) exposure to COVID-19 (principal)

== ENCOUNTER → 2021-03-31 | Outpatient (CLI) | payer MEDICARE | LOC: M PLAIMG 14:29 | PROVIDERS: ATTEND Nurse Practitioner Family | DX: M16.11 Unilateral primary osteoarthritis, right hip (principal) ==

== ENCOUNTER → 2021-04-28 | Outpatient (REF) | payer MEDICARE, MEDICAID ==
[~2021-04-28] MED LIST changes: -D31000TA2 PO; +VITA100093 PO
[2021-04-28 11:46] LABS: BASO # 0.1 10^3/uL (0.0-0.2); BASO % 0.8 % (0.0-1.0); EOS # 0.2 10^3/uL (0.0-0.5); HEMATOCRIT 37.3 % (36.0-47.0); HEMOGLOBIN 11.8 g/dl (12.0-15.5); LYMPH # 1.9 10^3/uL (1.5-5.0); LYMPH % 32.1 % (24.0-44.0); MEAN CORPUSCULAR HEMOGLOBIN 27.3 pg (27.0-33.0); MEAN CORPUSCULAR HGB CONC 31.6 g/dl (32.0-36.5); MEAN CORPUSCULAR VOLUME 86.3 fl (80.0-96.0); MONO # 0.4 10^3/uL (0.0-0.8); NEUTROPHILS # 3.5 10^3/uL (1.5-8.5); NEUTROPHILS % 57.9 % (36.0-66.0); PLATELET COUNT, AUTOMATED 238 10^3/uL (150-450); RED BLOOD COUNT 4.32 10^6/uL (4.00-5.40)
[2021-04-28 12:09] LABS: ALBUMIN 3.4 GM/DL (3.2-5.2); BILIRUBIN,TOTAL 0.2 MG/DL (0.2-1.0); CREATININE FOR GFR 1.16 MG/DL (0.55-1.30); FREE T4 1.12 NG/DL (0.76-1.46); GLOMERULAR FILTRATION RATE 49.3 (>45); MAGNESIUM LEVEL 1.5 MG/DL (1.8-2.4); POTASSIUM SERUM 4.2 MEQ/L (3.5-5.1); THYROID STIMULATING HORMONE 1.72 uIU/ML (0.358-3.740); TOTAL PROTEIN 6.3 GM/DL (6.4-8.2)
[2021-04-28 12:47] LABS: HEMOGLOBIN A1c 9.5 %
== END ==
PROVIDERS: ATTEND Physician Assistant Medical
DX: E11.22 Type 2 diabetes mellitus with diabetic chronic kidney disease (principal); I11.0 Hypertensive heart disease with heart failure; I50.9 Heart failure, unspecified

== ENCOUNTER → 2021-05-27 | Outpatient (CLI) | payer MEDICARE, MEDICAID | LOC: M RAD 11:56 | PROVIDERS: ATTEND Physician Assistant Medical | DX: M51.36 Other intervertebral disc degeneration, lumbar region (principal); N28.1 Cyst of kidney, acquired ==

== ENCOUNTER → 2021-06-16 | Outpatient (REF) | payer MEDICARE, MEDICAID ==
[2021-06-17 11:29] LABS: APPEARANCE, URINE CLEAR (CLEAR); BACTERIA, URINE AUTO NEGATIVE (NEGATIVE); BILIRUBIN, URINE AUTO NEGATIVE (NEGATIVE); BLOOD, URINE BLOOD NEGATIVE (NEGATIVE); COLOR, URINE YELLOW (YELLOW); GLUCOSE, URINE (UA) AUTO 2+ mg/dL (NEGATIVE); KETONE, URINE AUTO NEGATIVE (NEGATIVE); LEUKOCYTE ESTERASE, URINE AUTO NEGATIVE (NEGATIVE); MUCUS, URINE SMALL (NEGATIVE); NITRITE, URINE AUTO NEGATIVE (NEGATIVE); PROTEIN, URINE AUTO 1+ mg/dL (NEGATIVE); RBC, URINE AUTO 0 /HPF (0-3); SPECIFIC GRAVITY URINE AUTO 1.024 (1.002-1.035); SQUAMOUS EPITHELIAL CELL UR AU 3 /HPF (0-6); UROBILINOGEN, URINE AUTO 0.2 mg/dL (0.0-2.0); WBC, URINE AUTO 0 /HPF (0-3)
== END ==
PROVIDERS: ATTEND Physician Assistant Medical
DX: M54.6 Pain in thoracic spine (principal)

== ENCOUNTER → 2021-06-24 | Outpatient (CLI) | payer MEDICARE, MEDICAID | LOC: M RAD 15:09 | PROVIDERS: ATTEND Physician Assistant | DX: R06.02 Shortness of breath (principal) ==

== ENCOUNTER → 2021-07-19 | Outpatient (REF) | payer MEDICARE, MEDICAID ==
[2021-07-19 11:37] LABS: ALBUMIN 3.6 GM/DL (3.2-5.2); BILIRUBIN,TOTAL 0.4 MG/DL (0.2-1.0); CALCIUM LEVEL 9.1 MG/DL (8.8-10.2); CREATININE FOR GFR 1.27 MG/DL (0.55-1.30); GLOMERULAR FILTRATION RATE 44.4 (>45); MAGNESIUM LEVEL 1.7 MG/DL (1.8-2.4); POTASSIUM SERUM 3.7 MEQ/L (3.5-5.1); TOTAL PROTEIN 6.3 GM/DL (6.4-8.2)
== END ==
PROVIDERS: ATTEND Physician Assistant Medical
DX: E83.49 Other disorders of magnesium metabolism (principal)

== ENCOUNTER 2021-08-23 15:14 | Emergency (ER) | payer MEDICARE, MEDICAID ==
[~2021-08-23] VITALS: Ht 167.6 cm; Wt 139.1 kg
[~2021-08-23 15:14] MED LIST changes: +ALBU2.5V10 INH; -ALBU83IN INH
[2021-08-23 16:24] LABS: VENOUS BASE EXCESS 2.3 (-2.0-2.0); VENOUS HCO3 26.5 MEQ/L (23.0-27.0); VENOUS O2 SATURATION 97.5 % (60.0-80.0); VENOUS PARTIAL PRESSURE CO2 39.4 mmHg (38.0-50.0); VENOUS PARTIAL PRESSURE O2 106.6 mmHg (30.0-50.0); VENOUS PH 7.445 UNITS (7.330-7.430); VENOUS STANDARD HCO3 26.5 MEQ/L; VENOUS TOTAL CO2 27.7 MEQ/L (24.0-28.0)
[2021-08-23 16:35] LABS: BASO % 0.6 % (0.0-1.0); EOS # 0.1 10^3/uL (0.0-0.5); EOS % 1.4 % (0.0-3.0); HEMATOCRIT 34.2 % (36.0-47.0); HEMOGLOBIN 11.3 g/dl (12.0-15.5); LYMPH # 2.2 10^3/uL (1.5-5.0); LYMPH % 34.4 % (24.0-44.0); MEAN CORPUSCULAR VOLUME 84.7 fl (80.0-96.0); MONO # 0.5 10^3/uL (0.0-0.8); MONO % 8.4 % (2.0-8.0); NEUTROPHILS # 3.5 10^3/uL (1.5-8.5); NEUTROPHILS % 54.9 % (36.0-66.0); PLATELET COUNT, AUTOMATED 243 10^3/uL (150-450); RED BLOOD COUNT 4.04 10^6/uL (4.00-5.40); WHITE BLOOD COUNT 6.4 10^3/uL (4.0-10.0)
[2021-08-23 16:44] LABS: INR 0.98; PROTHROMBIN TIME 13.4 SECONDS (12.7-14.5)
[2021-08-23 16:45] LABS: PARTIAL THROMBOPLASTIN TIME 29.2 SECONDS (25.9-37.0)
[2021-08-23 16:47] LABS: D-DIMER QUANT 695.29 ng/ml (<500)
[2021-08-23 16:54] LABS: CK-MB VALUE MASS 4.3 NG/ML (<3.6); MB/CK RELATIVE INDEX 1.2 (< OR =4)
[2021-08-23 17:01] LABS: ALBUMIN 3.4 GM/DL (3.2-5.2); BILIRUBIN,DIRECT 0.1 MG/DL (0.0-0.2); BILIRUBIN,TOTAL 0.2 MG/DL (0.2-1.0); C REACTIVE PROTEIN QUANTITATIV 0.53 MG/DL (0.00-0.30); CALCIUM LEVEL 8.7 MG/DL (8.8-10.2); CREATININE FOR GFR 1.09 MG/DL (0.55-1.30); FREE T4 1.03 NG/DL (0.76-1.46); GLOMERULAR FILTRATION RATE 52.8 (>39); POTASSIUM SERUM 3.9 MEQ/L (3.5-5.1); THYROID STIMULATING HORMONE 1.41 uIU/ML (0.358-3.740); TOTAL PROTEIN 6.6 GM/DL (6.4-8.2)
[2021-08-23 17:15] LABS: ERYTHROCYTE SEDIMENTATION RATE 28 mm/hr (0-30)
[2021-08-23] MEDS ORDERED: ACET-683 PO (19:13)
[2021-08-23] MEDS ORDERED: ACETAMINOPHEN 325 MG TAB PO ONE (19:15)
[2021-08-23 20:00] VITALS: BP 154/63
== END 2021-08-23 22:49 | disposition home or self-care (01) ==
LOC: EDBD 15:14 → M ED 15:14
DX: M25.512 Pain in left shoulder (principal); E11.9 Type 2 diabetes mellitus without complications; J44.9 Chronic obstructive pulmonary disease, unspecified; I10 Essential (primary) hypertension; N18.30 Chronic kidney disease, stage 3 unspecified; E78.5 Hyperlipidemia, unspecified; F41.9 Anxiety disorder, unspecified; G47.33 Obstructive sleep apnea (adult) (pediatric); E66.9 Obesity, unspecified; Z86.711 Personal history of pulmonary embolism; Z86.718 Personal history of other venous thrombosis and embolism; Z88.1 Allergy status to other antibiotic agents; Z88.5 Allergy status to narcotic agent; Z88.8 Allergy status to other drugs, medicaments and biological substances; Z91.040 Latex allergy status; Z91.048 Other nonmedicinal substance allergy status; Z79.899 Other long term (current) drug therapy; Z79.01 Long term (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 anticoagulants; Z79.4 Long term (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; Z79.51 Long term (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 inhaled steroids

== ENCOUNTER → 2021-08-30 | Outpatient (REF) | payer MEDICARE, MEDICAID | PROVIDERS: ATTEND Physician Assistant Medical | DX: E83.42 Hypomagnesemia (principal) ==

== ENCOUNTER → 2021-09-10 | Outpatient (CLI) | payer MEDICARE, MEDICAID | LOC: M WHC 08:51 | PROVIDERS: ATTEND Physician Assistant Medical | DX: Z12.31 Encounter for screening mammogram for malignant neoplasm of breast (principal) ==

== ENCOUNTER 2021-09-12 17:43 | Emergency (ER) | payer MEDICARE, MEDICAID ==
[2021-09-12 18:41] LABS: BASO % 0.6 % (0.0-1.0); EOS # 0.2 10^3/uL (0.0-0.5); EOS % 2.5 % (0.0-3.0); HEMATOCRIT 33.6 % (36.0-47.0); LYMPH # 2.4 10^3/uL (1.5-5.0); LYMPH % 34.8 % (24.0-44.0); MEAN CORPUSCULAR HEMOGLOBIN 27.3 pg (27.0-33.0); MEAN CORPUSCULAR HGB CONC 32.7 g/dl (32.0-36.5); MEAN CORPUSCULAR VOLUME 83.4 fl (80.0-96.0); MONO # 0.6 10^3/uL (0.0-0.8); MONO % 9.1 % (2.0-8.0); NEUTROPHILS # 3.6 10^3/uL (1.5-8.5); NEUTROPHILS % 52.9 % (36.0-66.0); PLATELET COUNT, AUTOMATED 246 10^3/uL (150-450); RED BLOOD COUNT 4.03 10^6/uL (4.00-5.40); WHITE BLOOD COUNT 6.8 10^3/uL (4.0-10.0)
[2021-09-12 19:08] LABS: ALBUMIN 3.8 GM/DL (3.2-5.2); BILIRUBIN,DIRECT 0.1 MG/DL (0.0-0.2); BILIRUBIN,TOTAL 0.4 MG/DL (0.2-1.0); CALCIUM LEVEL 9.5 MG/DL (8.8-10.2); CREATININE FOR GFR 1.33 MG/DL (0.55-1.30); POTASSIUM SERUM 3.8 MEQ/L (3.5-5.1); TOTAL PROTEIN 6.6 GM/DL (6.4-8.2)
[2021-09-12 22:15] VITALS: BP 130/60
== END 2021-09-12 23:39 | disposition home or self-care (01) ==
LOC: M ED 17:43
DX: R10.13 Epigastric pain (principal); E11.9 Type 2 diabetes mellitus without complications; I10 Essential (primary) hypertension; I50.30 Unspecified diastolic (congestive) heart failure; J44.9 Chronic obstructive pulmonary disease, unspecified; N18.30 Chronic kidney disease, stage 3 unspecified; E78.5 Hyperlipidemia, unspecified; F33.9 Major depressive disorder, recurrent, unspecified; F41.9 Anxiety disorder, unspecified; G47.33 Obstructive sleep apnea (adult) (pediatric); K44.9 Diaphragmatic hernia without obstruction or gangrene; Z86.711 Personal history of pulmonary embolism; Z86.718 Personal history of other venous thrombosis and embolism; Z88.1 Allergy status to other antibiotic agents; Z88.5 Allergy status to narcotic agent; Z88.8 Allergy status to other drugs, medicaments and biological substances; Z91.040 Latex allergy status; Z91.048 Other nonmedicinal substance allergy status; Z87.891 Personal history of nicotine dependence; Z79.899 Other long term (current) drug therapy; Z79.51 Long term (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 inhaled steroids; Z79.4 Long term (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

== ENCOUNTER 2021-10-07 09:45 | Outpatient (RCR) | payer MEDICARE, MEDICAID | END 2021-10-10 | LOC: M PT 09:45 | PROVIDERS: ATTEND Orthopaedic Surgery | DX: M75.42 Impingement syndrome of left shoulder (principal) ==

== ENCOUNTER → 2021-11-02 | Outpatient (CLI) | payer MEDICARE, MEDICAID | LOC: M CARPUL 10:04 | PROVIDERS: ATTEND Physician Assistant | DX: I25.10 Atherosclerotic heart disease of native coronary artery without angina pectoris (principal) ==

== ENCOUNTER 2021-11-08 13:29 | Outpatient (RCR) | payer MEDICARE, MEDICAID | END 2021-11-10 | LOC: M PT 13:29 | PROVIDERS: ATTEND Orthopaedic Surgery | DX: M75.42 Impingement syndrome of left shoulder (principal) ==

== ENCOUNTER → 2021-11-24 | Outpatient (REF) | payer MEDICARE, MEDICAID | PROVIDERS: ATTEND Family Medicine | DX: Z20.822 Contact with and (suspected) exposure to COVID-19 (principal) ==

== ENCOUNTER → 2021-12-28 | Outpatient (REF) | payer MEDICARE, MEDICAID | PROVIDERS: ATTEND Physician Assistant Medical | DX: Z20.822 Contact with and (suspected) exposure to COVID-19 (principal) ==

== ENCOUNTER → 2022-01-03 | Outpatient (REF) | payer MEDICAID, MEDICARE ==
[~2022-01-03] MED LIST changes: +ALB2.5NEB INH; +ALBU8.5H INH; +BREO1INH INH; +DULO-34 PO; +HUMA100I5 SQ; +JARD1TAB PO; +METF500T13 PO; +MUPI2OI TOP; +PREG100CA PO; +PREG50CA PO; +SUMA50TA2 PO; +VIST25CA PO
== END ==
PROVIDERS: ATTEND Dietitian, Registered Nutrition, Metabolic
DX: E78.2 Mixed hyperlipidemia (principal); Z53.8 Procedure and treatment not carried out for other reasons

== ENCOUNTER 2022-01-18 12:41 | Inpatient (IN) | payer MEDICARE, MEDICAID ==
[~2022-01-18] VITALS: Ht 165.1 cm; Wt 140.5 kg
[~2022-01-18 12:41] MED LIST changes: -ALB2.5NEB INH; -ALBU8.5H INH; -BREO1INH INH; -DULO-34 PO; -HUMA100I5 SQ; -JARD1TAB PO; -METF500T13 PO; -MUPI2OI TOP; -PREG100CA PO; -PREG50CA PO; -SUMA50TA2 PO; -VIST25CA PO
[2022-01-18] MEDS ORDERED: LIDOCAINE 2% 5ML JELLY UROJET TOP ONE (13:50)
[2022-01-18] MEDS ORDERED: NS 1,000 ML IV ONE (13:50)
[2022-01-18] MEDS ORDERED: ACETAMINOPHEN 325 MG TAB PO ONE (13:55)
[2022-01-18 14:20] LABS: ABG BASE EXCESS 2.8 (-2.0-2.0); ABG HCO3 26.6 MEQ/L (22.0-26.0); ABG O2 SATURATION 97.6 % (95.0-99.0); ABG PARTIAL PRESSURE CO2 38.1 mmHg (35.0-45.0); ABG PARTIAL PRESSURE O2 99.2 mmHg (75.0-100.0); ABG TOTAL CO2 27.8 MEQ/L (23.0-31.0); ABG pH (ARTERIAL) 7.462 UNITS (7.350-7.450)
[2022-01-18 14:26] LABS: BASO % 0.7 % (0.0-1.0); EOS # 0.1 10^3/uL (0.0-0.5); EOS % 1.6 % (0.0-3.0); HEMATOCRIT 34.3 % (36.0-47.0); LYMPH # 1.6 10^3/uL (1.5-5.0); LYMPH % 28.9 % (24.0-44.0); MEAN CORPUSCULAR HGB CONC 32.1 g/dl (32.0-36.5); MEAN CORPUSCULAR VOLUME 84.3 fl (80.0-96.0); MONO # 0.4 10^3/uL (0.0-0.8); MONO % 6.9 % (2.0-8.0); NEUTROPHILS # 3.4 10^3/uL (1.5-8.5); NEUTROPHILS % 61.7 % (36.0-66.0); PLATELET COUNT, AUTOMATED 239 10^3/uL (150-450); RED BLOOD COUNT 4.07 10^6/uL (4.00-5.40); WHITE BLOOD COUNT 5.5 10^3/uL (4.0-10.0)
[2022-01-18 14:53] LABS: INR 1.13; PARTIAL THROMBOPLASTIN TIME 27.5 SECONDS (24.8-34.2); PROTHROMBIN TIME 14.8 SECONDS (12.5-14.5)
[2022-01-18 15:17] LABS: ACETONE/KETONE 0.75 MG/DL (<2.81); ALBUMIN 3.3 GM/DL (3.2-5.2); BILIRUBIN,DIRECT 0.1 MG/DL (0.0-0.2); BILIRUBIN,TOTAL 0.5 MG/DL (0.2-1.0); CALCIUM LEVEL 9.3 MG/DL (8.8-10.2); CREATININE FOR GFR 1.12 MG/DL (0.55-1.30); GLOMERULAR FILTRATION RATE 51.2 (>39); MAGNESIUM LEVEL 1.7 MG/DL (1.8-2.4); PHOSPHORUS LEVEL 2.4 MG/DL (2.5-4.9); POTASSIUM SERUM 3.9 MEQ/L (3.5-5.1); TOTAL PROTEIN 6.3 GM/DL (6.4-8.2)
[2022-01-18] MEDS ORDERED: ISOVUE-370 76% 100ML VIAL As Ordered ONE (16:07)
[2022-01-18] MEDS ORDERED: PIPERACILLIN/TAZOBACTAM SOD 4.5 GM in D5W MINI-BAG PLUS 50 ML IV ONE (17:10)
[2022-01-18] MEDS ORDERED: GLUCOSE 4GM CHEW TABLET PO PRN (18:40)
[2022-01-18] MEDS ORDERED: DEXTROSE 50% 50 ML SYRINGE IV PRN (18:40)
[2022-01-18] MEDS ORDERED: GLUCAGON INJ 1MG VIAL SC PRN (18:40)
[2022-01-18] MEDS ORDERED: BREO1INH INH (19:19)
[2022-01-18 19:30] LABS: HEMOGLOBIN A1c 9.7 %
[2022-01-18] MEDS ORDERED: HYDR-3713 PO ×2 (19:39)
[2022-01-18] MEDS ORDERED: PREG50CA PO (19:39)
[2022-01-18] MEDS ORDERED: DULO-34 PO (19:39)
[2022-01-18] MEDS ORDERED: PREG100CA PO (19:39)
[2022-01-18] MEDS ORDERED: ALB2.5NEB INH (19:39)
[2022-01-18] MEDS ORDERED: MUPI2OI TOP (19:39)
[2022-01-18] MEDS ORDERED: ALBU8.5H INH (19:42)
[2022-01-18] MEDS ORDERED: SUMA50TA2 PO (19:42)
[2022-01-18] MEDS ORDERED: VIST25CA PO (19:42)
[2022-01-18] MEDS ORDERED: HOME MED LIST COMPLETE! XX SCH (19:45)
[2022-01-18] MEDS: INSULIN LISPRO (NovoLOG) PER UNIT SC SCH (20:14)
[2022-01-18] MEDS: LR 1,000 ML IV SCH (20:15)
[2022-01-18] MEDS: APIXABAN 5 MG TAB (ELIQUIS) PO SCH (20:15)
[2022-01-18 20:52] LABS: FREE T4 1.07 NG/DL (0.76-1.46); THYROID STIMULATING HORMONE 0.436 uIU/ML (0.358-3.740)
[2022-01-19] MEDS: PIPERACILLIN/TAZOBACTAM SOD 3.375 GM in D5W MINI-BAG PLUS 50 ML IV SCH ×4 (00:30→18:34)
[2022-01-19 06:04] LABS: HEMOGLOBIN 10.6 g/dl (12.0-15.5); MEAN CORPUSCULAR HGB CONC 32.1 g/dl (32.0-36.5); PLATELET COUNT, AUTOMATED 227 10^3/uL (150-450); RED BLOOD COUNT 3.93 10^6/uL (4.00-5.40); WHITE BLOOD COUNT 5.9 10^3/uL (4.0-10.0)
[2022-01-19 06:35] LABS: CREATININE FOR GFR 1.02 MG/DL (0.55-1.30); POTASSIUM SERUM 3.9 MEQ/L (3.5-5.1)
[2022-01-19] MEDS: INSULIN LISPRO (NovoLOG) PER UNIT SC SCH ×4 (07:35→20:34)
[2022-01-19 07:37] LABS: CORTISOL AM 16.8 UG/DL (4.3-22.4)
[2022-01-19] MEDS: LR 1,000 ML IV SCH ×2 (07:48→11:39)
[2022-01-19] MEDS: CALCIUM CARBONATE 500 MG CHEW U/D PO SCH (09:00)
[2022-01-19] MEDS: OMEPRAZOLE 20MG CAP PO SCH (09:00)
[2022-01-19] MEDS ORDERED: LEVEMIR (INSULIN DETEMIR) 1 UNITS/0.01ML SC SCH (09:00)
[2022-01-19] MEDS: ACETAMINOPHEN 650MG ER TAB (TYLENOL ARTHRITIS) PO SCH ×2 (09:00→20:35)
[2022-01-19] MEDS: amLODIPine 5 MG TAB PO SCH (09:00)
[2022-01-19] MEDS: APIXABAN 5 MG TAB (ELIQUIS) PO SCH ×2 (09:38→20:35)
[2022-01-19] MEDS ORDERED: SUMAtriptan SUCCINATE 25 MG TAB PO PRN (13:05)
[2022-01-19 17:22] VITALS: BP 136/75
[2022-01-19] MEDS ORDERED: FUROSEMIDE 20MG/2ML VIAL (J1940) IV ONE (18:55)
[2022-01-19 19:46] LABS: ABG BASE EXCESS 2.2 (-2.0-2.0); ABG HCO3 26.7 MEQ/L (22.0-26.0); ABG O2 SATURATION 94.9 % (95.0-99.0); ABG PARTIAL PRESSURE O2 74.8 mmHg (75.0-100.0); ABG STANDARD HCO3 26.4 MEQ/L (22.0-26.0); ABG TOTAL CO2 27.9 MEQ/L (23.0-31.0); ABG pH (ARTERIAL) 7.431 UNITS (7.350-7.450)
[2022-01-19 20:00] VITALS: BP 133/78
[2022-01-19] MEDS: FLUTICASONE PROP 0.05% NASAL SPRAY 16 GM (FLONASE) NARES SCH (20:32)
[2022-01-19] MEDS: LACTIC ACID 12% LOTION 225 GM BTL TOP SCH (20:33)
[2022-01-19] MEDS: PREGABALIN 100 MG CAP (LYRICA) PO SCH (20:35)
[2022-01-20] MEDS: PIPERACILLIN/TAZOBACTAM SOD 3.375 GM in D5W MINI-BAG PLUS 50 ML IV SCH ×2 (00:11→05:10)
[2022-01-20 04:00] VITALS: BP 156/67
[2022-01-20 05:42] LABS: BASO % 0.8 % (0.0-1.0); EOS # 0.2 10^3/uL (0.0-0.5); EOS % 3.5 % (0.0-3.0); HEMATOCRIT 34.8 % (36.0-47.0); HEMOGLOBIN 11.1 g/dl (12.0-15.5); LYMPH # 1.8 10^3/uL (1.5-5.0); LYMPH % 35.6 % (24.0-44.0); MEAN CORPUSCULAR HEMOGLOBIN 26.7 pg (27.0-33.0); MEAN CORPUSCULAR HGB CONC 31.9 g/dl (32.0-36.5); MEAN CORPUSCULAR VOLUME 83.7 fl (80.0-96.0); MONO # 0.5 10^3/uL (0.0-0.8); MONO % 9.2 % (2.0-8.0); NEUTROPHILS # 2.5 10^3/uL (1.5-8.5); NEUTROPHILS % 50.7 % (36.0-66.0); PLATELET COUNT, AUTOMATED 233 10^3/uL (150-450); RED BLOOD COUNT 4.16 10^6/uL (4.00-5.40); WHITE BLOOD COUNT 4.9 10^3/uL (4.0-10.0)
[2022-01-20 06:14] LABS: CALCIUM LEVEL 9.2 MG/DL (8.8-10.2); CREATININE FOR GFR 1.13 MG/DL (0.55-1.30); GLOMERULAR FILTRATION RATE 50.7 (>39); POTASSIUM SERUM 3.5 MEQ/L (3.5-5.1)
[2022-01-20 08:00] VITALS: BP 132/61
[2022-01-20] MEDS: APIXABAN 5 MG TAB (ELIQUIS) PO SCH ×2 (08:17→21:30)
[2022-01-20] MEDS: ATORVASTATIN 20 MG TAB PO SCH (08:17)
[2022-01-20] MEDS: OMEPRAZOLE 20MG CAP PO SCH (08:17)
[2022-01-20] MEDS: amLODIPine 5 MG TAB PO SCH (08:18)
[2022-01-20] MEDS: CALCIUM CARBONATE 500 MG CHEW U/D PO SCH (08:18)
[2022-01-20] MEDS: LEVEMIR (INSULIN DETEMIR) 1 UNITS/0.01ML SC SCH (08:19)
[2022-01-20] MEDS: INSULIN LISPRO (NovoLOG) PER UNIT SC SCH ×4 (08:19→21:30)
[2022-01-20] MEDS: ACETAMINOPHEN 650MG ER TAB (TYLENOL ARTHRITIS) PO SCH ×2 (08:20→21:30)
[2022-01-20] MEDS: LACTIC ACID 12% LOTION 225 GM BTL TOP SCH ×2 (08:37→21:30)
[2022-01-20] MEDS: cefTRIAXone SOD 2 GM in D5W MINI-BAG PLUS 50 ML IV SCH (12:17)
[2022-01-20 16:00] VITALS: BP 128/61
[2022-01-20 20:00] VITALS: BP 157/77
[2022-01-20] MEDS: PREGABALIN 100 MG CAP (LYRICA) PO SCH (21:30)
[2022-01-20] MEDS: FLUTICASONE PROP 0.05% NASAL SPRAY 16 GM (FLONASE) NARES SCH (21:31)
[2022-01-21] MEDS: NORCO, ANEXSIA 5/325MG TABLET (HYDROcodone/ACETAMINOPHEN) PO PRN ×2 (00:04→09:07)
[2022-01-21 04:00] VITALS: BP 107/68
[2022-01-21 07:34] VITALS: BP 110/60
[2022-01-21 07:46] LABS: BASO # 0.1 10^3/uL (0.0-0.2); BASO % 0.8 % (0.0-1.0); EOS # 0.2 10^3/uL (0.0-0.5); EOS % 3.2 % (0.0-3.0); HEMATOCRIT 34.6 % (36.0-47.0); HEMOGLOBIN 11.1 g/dl (12.0-15.5); LYMPH # 2.4 10^3/uL (1.5-5.0); LYMPH % 38.4 % (24.0-44.0); MEAN CORPUSCULAR HEMOGLOBIN 26.9 pg (27.0-33.0); MEAN CORPUSCULAR HGB CONC 32.1 g/dl (32.0-36.5); MEAN CORPUSCULAR VOLUME 83.8 fl (80.0-96.0); MONO # 0.6 10^3/uL (0.0-0.8); MONO % 9.6 % (2.0-8.0); NEUTROPHILS % 47.8 % (36.0-66.0); PLATELET COUNT, AUTOMATED 242 10^3/uL (150-450); RED BLOOD COUNT 4.13 10^6/uL (4.00-5.40); WHITE BLOOD COUNT 6.3 10^3/uL (4.0-10.0)
[2022-01-21 08:00] VITALS: BP 146/65
[2022-01-21 08:10] LABS: CALCIUM LEVEL 9.7 MG/DL (8.8-10.2); CREATININE FOR GFR 1.13 MG/DL (0.55-1.30); GLOMERULAR FILTRATION RATE 50.7 (>39); POTASSIUM SERUM 3.6 MEQ/L (3.5-5.1)
[2022-01-21] MEDS: INSULIN LISPRO (NovoLOG) PER UNIT SC SCH ×4 (09:05→21:12)
[2022-01-21] MEDS: LEVEMIR (INSULIN DETEMIR) 1 UNITS/0.01ML SC SCH (09:05)
[2022-01-21] MEDS: ACETAMINOPHEN 650MG ER TAB (TYLENOL ARTHRITIS) PO SCH ×2 (10:26→21:13)
[2022-01-21] MEDS: OMEPRAZOLE 20MG CAP PO SCH (10:27)
[2022-01-21] MEDS: amLODIPine 5 MG TAB PO SCH (10:28)
[2022-01-21] MEDS: ATORVASTATIN 20 MG TAB PO SCH (10:29)
[2022-01-21] MEDS: CALCIUM CARBONATE 500 MG CHEW U/D PO SCH (10:30)
[2022-01-21] MEDS: APIXABAN 5 MG TAB (ELIQUIS) PO SCH ×2 (10:30→21:12)
[2022-01-21] MEDS: LACTIC ACID 12% LOTION 225 GM BTL TOP SCH ×2 (10:31→21:12)
[2022-01-21] MEDS: cefTRIAXone SOD 2 GM in D5W MINI-BAG PLUS 50 ML IV SCH (12:38)
[2022-01-21 14:34] VITALS: BP_SYST 140; BP_SYST 160; BP_DIAS 62; BP_DIAS 64
[2022-01-21] MEDS: PREGABALIN 100 MG CAP (LYRICA) PO SCH (21:12)
[2022-01-21] MEDS: FLUTICASONE PROP 0.05% NASAL SPRAY 16 GM (FLONASE) NARES SCH (21:12)
[2022-01-22 04:18] VITALS: BP 138/83
[2022-01-22 08:00] VITALS: BP 163/71
[2022-01-22] MEDS: LEVEMIR (INSULIN DETEMIR) 1 UNITS/0.01ML SC SCH (09:34)
[2022-01-22] MEDS: ACETAMINOPHEN 650MG ER TAB (TYLENOL ARTHRITIS) PO SCH ×2 (09:35→20:42)
[2022-01-22] MEDS: INSULIN LISPRO (NovoLOG) PER UNIT SC SCH ×4 (09:35→20:59)
[2022-01-22] MEDS: CALCIUM CARBONATE 500 MG CHEW U/D PO SCH (09:36)
[2022-01-22] MEDS: APIXABAN 5 MG TAB (ELIQUIS) PO SCH ×2 (09:36→20:42)
[2022-01-22] MEDS: amLODIPine 5 MG TAB PO SCH (09:36)
[2022-01-22] MEDS: ATORVASTATIN 20 MG TAB PO SCH (09:36)
[2022-01-22] MEDS: LACTIC ACID 12% LOTION 225 GM BTL TOP SCH ×2 (09:37→20:43)
[2022-01-22] MEDS: OMEPRAZOLE 20MG CAP PO SCH (09:37)
[2022-01-22] MEDS: cefTRIAXone SOD 2 GM in D5W MINI-BAG PLUS 50 ML IV SCH (11:57)
[2022-01-22 17:25] VITALS: BP 143/54
[2022-01-22] MEDS: PREGABALIN 100 MG CAP (LYRICA) PO SCH (20:42)
[2022-01-22] MEDS: FLUTICASONE PROP 0.05% NASAL SPRAY 16 GM (FLONASE) NARES SCH (20:43)
[2022-01-23 05:17] VITALS: BP 154/55
[2022-01-23] MEDS: INSULIN LISPRO (NovoLOG) PER UNIT SC SCH ×4 (11:00→20:29)
[2022-01-23] MEDS: ACETAMINOPHEN 650MG ER TAB (TYLENOL ARTHRITIS) PO SCH ×2 (11:14→20:18)
[2022-01-23] MEDS: LEVEMIR (INSULIN DETEMIR) 1 UNITS/0.01ML SC SCH (11:14)
[2022-01-23] MEDS: CALCIUM CARBONATE 500 MG CHEW U/D PO SCH (11:15)
[2022-01-23] MEDS: ATORVASTATIN 20 MG TAB PO SCH (11:15)
[2022-01-23] MEDS: OMEPRAZOLE 20MG CAP PO SCH (11:15)
[2022-01-23] MEDS: amLODIPine 5 MG TAB PO SCH (11:15)
[2022-01-23] MEDS: LACTIC ACID 12% LOTION 225 GM BTL TOP SCH ×2 (11:15→20:19)
[2022-01-23] MEDS: APIXABAN 5 MG TAB (ELIQUIS) PO SCH ×2 (11:15→20:19)
[2022-01-23] MEDS: CEFDINIR 300 MG CAP (OMNICEF) PO SCH ×2 (13:46→20:18)
[2022-01-23] MEDS: PREGABALIN 100 MG CAP (LYRICA) PO SCH (20:18)
[2022-01-23] MEDS: FLUTICASONE PROP 0.05% NASAL SPRAY 16 GM (FLONASE) NARES SCH (20:19)
[2022-01-24 06:00] VITALS: BP 138/49
[2022-01-24] MEDS: INSULIN LISPRO (NovoLOG) PER UNIT SC SCH ×4 (08:37→20:37)
[2022-01-24] MEDS: LEVEMIR (INSULIN DETEMIR) 1 UNITS/0.01ML SC SCH (08:39)
[2022-01-24] MEDS: ATORVASTATIN 20 MG TAB PO SCH (08:43)
[2022-01-24] MEDS: APIXABAN 5 MG TAB (ELIQUIS) PO SCH ×2 (08:43→20:06)
[2022-01-24] MEDS: ACETAMINOPHEN 650MG ER TAB (TYLENOL ARTHRITIS) PO SCH ×2 (08:43→20:05)
[2022-01-24] MEDS: CALCIUM CARBONATE 500 MG CHEW U/D PO SCH (08:43)
[2022-01-24] MEDS: OMEPRAZOLE 20MG CAP PO SCH (08:43)
[2022-01-24] MEDS: CEFDINIR 300 MG CAP (OMNICEF) PO SCH ×2 (08:43→20:06)
[2022-01-24] MEDS: LACTIC ACID 12% LOTION 225 GM BTL TOP SCH ×2 (08:53→20:07)
[2022-01-24 09:00] VITALS: BP 156/68
[2022-01-24] MEDS: amLODIPine 5 MG TAB PO SCH (09:00)
[2022-01-24 10:33] LABS: BASO # 0.1 10^3/uL (0.0-0.2); BASO % 1.2 % (0.0-1.0); EOS # 0.1 10^3/uL (0.0-0.5); EOS % 2.3 % (0.0-3.0); HEMATOCRIT 35.9 % (36.0-47.0); HEMOGLOBIN 11.6 g/dl (12.0-15.5); LYMPH # 1.7 10^3/uL (1.5-5.0); LYMPH % 32.9 % (24.0-44.0); MEAN CORPUSCULAR HEMOGLOBIN 27.2 pg (27.0-33.0); MEAN CORPUSCULAR HGB CONC 32.3 g/dl (32.0-36.5); MEAN CORPUSCULAR VOLUME 84.3 fl (80.0-96.0); MONO # 0.3 10^3/uL (0.0-0.8); MONO % 6.4 % (2.0-8.0); NEUTROPHILS # 2.9 10^3/uL (1.5-8.5); NEUTROPHILS % 56.8 % (36.0-66.0); PLATELET COUNT, AUTOMATED 216 10^3/uL (150-450); RED BLOOD COUNT 4.26 10^6/uL (4.00-5.40); WHITE BLOOD COUNT 5.2 10^3/uL (4.0-10.0)
[2022-01-24 11:16] LABS: CALCIUM LEVEL 8.6 MG/DL (8.8-10.2); CREATININE FOR GFR 1.2 MG/DL (0.55-1.30); GLOMERULAR FILTRATION RATE 47.3 (>39); POTASSIUM SERUM 3.7 MEQ/L (3.5-5.1)
[2022-01-24] MEDS: PREGABALIN 100 MG CAP (LYRICA) PO SCH (20:06)
[2022-01-24] MEDS: FLUTICASONE PROP 0.05% NASAL SPRAY 16 GM (FLONASE) NARES SCH (20:07)
[2022-01-24] MEDS ORDERED: LEVEMIR (INSULIN DETEMIR) 1 UNITS/0.01ML SC SCH ×2 (21:00)
[2022-01-25 06:00] VITALS: BP 143/56
[2022-01-25] MEDS: LEVEMIR (INSULIN DETEMIR) 1 UNITS/0.01ML SC SCH (10:06)
[2022-01-25] MEDS: INSULIN LISPRO (NovoLOG) PER UNIT SC SCH ×2 (10:06→12:07)
[2022-01-25] MEDS: amLODIPine 5 MG TAB PO SCH (10:07)
[2022-01-25] MEDS: APIXABAN 5 MG TAB (ELIQUIS) PO SCH (10:07)
[2022-01-25] MEDS: ACETAMINOPHEN 650MG ER TAB (TYLENOL ARTHRITIS) PO SCH (10:07)
[2022-01-25] MEDS: OMEPRAZOLE 20MG CAP PO SCH (10:07)
[2022-01-25] MEDS: ATORVASTATIN 20 MG TAB PO SCH (10:07)
[2022-01-25] MEDS: LACTIC ACID 12% LOTION 225 GM BTL TOP SCH (10:07)
[2022-01-25] MEDS: CEFDINIR 300 MG CAP (OMNICEF) PO SCH (10:07)
[2022-01-25] MEDS: CALCIUM CARBONATE 500 MG CHEW U/D PO SCH (10:08)
[2022-01-25] MEDS ORDERED: JARD1TAB PO (11:48)
[2022-01-25] MEDS ORDERED: METF500T13 PO (11:48)
[2022-01-25] MEDS ORDERED: HUMA100I5 SQ (11:48)
[2022-01-25] MEDS ORDERED: AMLO1TAB24 PO (12:24)
== END 2022-01-25 13:18 | DRG 92 ==
LOC: M ED 12:41 → EDBD 12:41 → M ED INP 18:14 → ENRESERV 01-19 16:34 → M PCU 01-19 17:47 → M MSPAV 01-22 17:22
PROVIDERS: ADMIT Internal Medicine; ATTEND Internal Medicine
DX: G92.8 Other toxic encephalopathy (principal); I50.32 Chronic diastolic (congestive) heart failure; N39.0 Urinary tract infection, site not specified; I13.0 Hypertensive heart and chronic kidney disease with heart failure and stage 1 through stage 4 chronic kidney disease, or unspecified chronic kidney disease; R53.1 Weakness; Z86.711 Personal history of pulmonary embolism; Z79.01 Long term (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 anticoagulants; E78.5 Hyperlipidemia, unspecified; F32.A Depression, unspecified; E11.22 Type 2 diabetes mellitus with diabetic chronic kidney disease; J44.9 Chronic obstructive pulmonary disease, unspecified; G47.33 Obstructive sleep apnea (adult) (pediatric); Z79.4 Long term (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; Z79.2 Long term (current) use of antibiotics; Z79.899 Other long term (current) drug therapy; Z88.5 Allergy status to narcotic agent; Z88.8 Allergy status to other drugs, medicaments and biological substances; Z91.040 Latex allergy status; Z91.048 Other nonmedicinal substance allergy status; Z20.822 Contact with and (suspected) exposure to COVID-19; K21.9 Gastro-esophageal reflux disease without esophagitis; G43.909 Migraine, unspecified, not intractable, without status migrainosus; N18.31 Chronic kidney disease, stage 3a; E66.01 Morbid (severe) obesity due to excess calories

== ENCOUNTER → 2022-02-02 | Outpatient (REF) ==
[~2022-02-02] MED LIST changes: +ALB2.5NEB INH; +ALBU8.5H INH; +BREO1INH INH; +DULO-34 PO; +HUMA100I5 SQ; +JARD1TAB PO; +METF500T13 PO; +MUPI2OI TOP; +PREG100CA PO; +PREG50CA PO; +SUMA50TA2 PO; +VIST25CA PO
[2022-02-02 10:37] LABS: HEMATOCRIT 38.6 % (36.0-47.0); HEMOGLOBIN 12.3 g/dl (12.0-15.5); MEAN CORPUSCULAR HEMOGLOBIN 26.6 pg (27.0-33.0); MEAN CORPUSCULAR HGB CONC 31.9 g/dl (32.0-36.5); MEAN CORPUSCULAR VOLUME 83.4 fl (80.0-96.0); PLATELET COUNT, AUTOMATED 256 10^3/uL (150-450); RED BLOOD COUNT 4.63 10^6/uL (4.00-5.40); WHITE BLOOD COUNT 6.1 10^3/uL (4.0-10.0)
[2022-02-02 11:07] LABS: CREATININE FOR GFR 1.03 MG/DL (0.55-1.30); GLOMERULAR FILTRATION RATE 56.4 (>39); POTASSIUM SERUM 4.1 MMOL/L (3.5-5.1)
== END ==
PROVIDERS: ATTEND Internal Medicine
DX: E11.9 Type 2 diabetes mellitus without complications (principal)

== ENCOUNTER → 2022-02-09 | Outpatient (REF) ==
[2022-02-09 12:03] LABS: HEMATOCRIT 37.6 % (36.0-47.0); HEMOGLOBIN 11.9 g/dl (12.0-15.5); MEAN CORPUSCULAR HEMOGLOBIN 26.9 pg (27.0-33.0); MEAN CORPUSCULAR HGB CONC 31.6 g/dl (32.0-36.5); MEAN CORPUSCULAR VOLUME 84.9 fl (80.0-96.0); PLATELET COUNT, AUTOMATED 266 10^3/uL (150-450); RED BLOOD COUNT 4.43 10^6/uL (4.00-5.40); WHITE BLOOD COUNT 6.4 10^3/uL (4.0-10.0)
[2022-02-09 13:28] LABS: BLOOD UREA NITROGEN 15 MG/DL (9-23); CARBON DIOXIDE LEVEL 23 MMOL/L (20-31); CHLORIDE LEVEL 104 MMOL/L (98-107); CREATININE FOR GFR 0.89 MG/DL (0.55-1.30); GLOMERULAR FILTRATION RATE > 60.0 (>39); GLUCOSE, FASTING 174 MG/DL (74-106); SODIUM LEVEL 140 MMOL/L (136-145)
== END ==
PROVIDERS: ATTEND Internal Medicine
DX: E11.9 Type 2 diabetes mellitus without complications (principal)

== ENCOUNTER → 2022-02-11 | Outpatient (REF) | PROVIDERS: ATTEND Physician Assistant | DX: Z20.822 Contact with and (suspected) exposure to COVID-19 (principal) ==

== ENCOUNTER 2022-02-12 19:36 | Emergency (ER) | payer MEDICARE, MEDICAID ==
[2022-02-12 20:27] LABS: BASO # 0.1 10^3/uL (0.0-0.2); BASO % 0.9 % (0.0-1.0); EOS # 0.2 10^3/uL (0.0-0.5); EOS % 2.6 % (0.0-3.0); HEMATOCRIT 37.6 % (36.0-47.0); HEMOGLOBIN 11.9 g/dl (12.0-15.5); LYMPH # 2.5 10^3/uL (1.5-5.0); LYMPH % 37.4 % (24.0-44.0); MEAN CORPUSCULAR HGB CONC 31.6 g/dl (32.0-36.5); MEAN CORPUSCULAR VOLUME 82.3 fl (80.0-96.0); MONO # 0.5 10^3/uL (0.0-0.8); MONO % 7.6 % (2.0-8.0); NEUTROPHILS # 3.4 10^3/uL (1.5-8.5); NEUTROPHILS % 51.3 % (36.0-66.0); PLATELET COUNT, AUTOMATED 296 10^3/uL (150-450); RED BLOOD COUNT 4.57 10^6/uL (4.00-5.40); WHITE BLOOD COUNT 6.6 10^3/uL (4.0-10.0)
[2022-02-12 20:54] LABS: BLOOD UREA NITROGEN 23 MG/DL (9-23); CALCIUM LEVEL 9.6 MG/DL (8.3-10.6); CARBON DIOXIDE LEVEL 25 MMOL/L (20-31); CHLORIDE LEVEL 105 MMOL/L (98-107); CREATININE FOR GFR 0.97 MG/DL (0.55-1.30); GLOMERULAR FILTRATION RATE > 60.0 (>39); GLUCOSE, FASTING 94 MG/DL (74-106); POTASSIUM SERUM 4.5 MMOL/L (3.5-5.1); SODIUM LEVEL 141 MMOL/L (136-145)
[2022-02-12] MEDS ORDERED: METOCLOPRAMIDE INJ 10MG/2ML VIAL IV ONE (21:00)
[2022-02-12 21:45] VITALS: BP 148/68
== END 2022-02-12 23:36 | disposition home or self-care (01) ==
LOC: EDBD 19:36 → M ED 19:36
DX: R51.9 Headache, unspecified (principal); R11.2 Nausea with vomiting, unspecified; I10 Essential (primary) hypertension; E78.5 Hyperlipidemia, unspecified; J44.9 Chronic obstructive pulmonary disease, unspecified; G47.33 Obstructive sleep apnea (adult) (pediatric); Z87.891 Personal history of nicotine dependence; Z88.5 Allergy status to narcotic agent; Z88.6 Allergy status to analgesic agent; Z88.8 Allergy status to other drugs, medicaments and biological substances; Z91.048 Other nonmedicinal substance allergy status; Z79.51 Long term (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 inhaled steroids; Z79.01 Long term (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 anticoagulants; Z79.4 Long term (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; Z79.84 Long term (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 oral hypoglycemic drugs; Z79.899 Other long term (current) drug therapy
CPT/HCPCS: 70450; 80048; 85025; 96374; 99284; J2765

== ENCOUNTER → 2022-02-16 | Outpatient (REF) | PROVIDERS: ATTEND Internal Medicine | DX: E11.9 Type 2 diabetes mellitus without complications (principal); Z53.8 Procedure and treatment not carried out for other reasons ==

== ENCOUNTER → 2022-02-23 | Outpatient (REF) | payer MEDICARE, MEDICAID ==
[2022-02-23 11:17] LABS: ALBUMIN 3.4 G/DL (3.2-5.2); ALKALINE PHOSPHATASE 99 U/L (46-116); ALT/SGPT 23 U/L (7.0-40); AST/SGOT 21 U/L (<34); BILIRUBIN,TOTAL 0.4 MG/DL (0.3-1.2); BLOOD UREA NITROGEN 21 MG/DL (9-23); CALCIUM LEVEL 8.8 MG/DL (8.3-10.6); CARBON DIOXIDE LEVEL 26 MMOL/L (20-31); CHLORIDE LEVEL 106 MMOL/L (98-107); CREATININE FOR GFR 0.86 MG/DL (0.55-1.30); GLOMERULAR FILTRATION RATE > 60.0 (>39); GLUCOSE, FASTING 160 MG/DL (74-106); POTASSIUM SERUM 4.4 MMOL/L (3.5-5.1); SODIUM LEVEL 142 MMOL/L (136-145); TOTAL PROTEIN 6.4 G/DL (5.7-8.2)
== END ==
PROVIDERS: ATTEND Physician Assistant Medical
DX: N18.30 Chronic kidney disease, stage 3 unspecified (principal)

== ENCOUNTER → 2022-03-02 | Outpatient (REF) | payer MEDICARE, MEDICAID ==
[2022-03-02 12:02] LABS: BASO # 0.1 10^3/uL (0.0-0.2); BASO % 1.1 % (0.0-1.0); EOS # 0.2 10^3/uL (0.0-0.5); EOS % 2.8 % (0.0-3.0); HEMATOCRIT 35.8 % (36.0-47.0); HEMOGLOBIN 10.8 g/dl (12.0-15.5); LYMPH # 1.9 10^3/uL (1.5-5.0); LYMPH % 33.3 % (24.0-44.0); MEAN CORPUSCULAR HEMOGLOBIN 25.3 pg (27.0-33.0); MEAN CORPUSCULAR HGB CONC 30.2 g/dl (32.0-36.5); MEAN CORPUSCULAR VOLUME 83.8 fl (80.0-96.0); MONO # 0.5 10^3/uL (0.0-0.8); MONO % 8.1 % (2.0-8.0); NEUTROPHILS # 3.1 10^3/uL (1.5-8.5); NEUTROPHILS % 54.5 % (36.0-66.0); PLATELET COUNT, AUTOMATED 264 10^3/uL (150-450); RED BLOOD COUNT 4.27 10^6/uL (4.00-5.40); WHITE BLOOD COUNT 5.7 10^3/uL (4.0-10.0)
[2022-03-02 13:25] LABS: HEMOGLOBIN A1c 9.3 % (4.0-6.0)
== END ==
PROVIDERS: ATTEND Physician Assistant Medical
DX: E11.22 Type 2 diabetes mellitus with diabetic chronic kidney disease (principal); I50.32 Chronic diastolic (congestive) heart failure; I11.0 Hypertensive heart disease with heart failure

== ENCOUNTER 2022-03-31 17:32 | Emergency (ER) | payer MEDICARE, MEDICAID ==
[2022-03-31 18:14] LABS: BASO % 0.6 % (0.0-1.0); EOS # 0.1 10^3/uL (0.0-0.5); EOS % 1.7 % (0.0-3.0); HEMATOCRIT 33.3 % (36.0-47.0); HEMOGLOBIN 10.2 g/dl (12.0-15.5); LYMPH # 2.3 10^3/uL (1.5-5.0); LYMPH % 33.3 % (24.0-44.0); MEAN CORPUSCULAR HEMOGLOBIN 25.2 pg (27.0-33.0); MEAN CORPUSCULAR HGB CONC 30.6 g/dl (32.0-36.5); MEAN CORPUSCULAR VOLUME 82.4 fl (80.0-96.0); MONO # 0.6 10^3/uL (0.0-0.8); NEUTROPHILS # 3.9 10^3/uL (1.5-8.5); PLATELET COUNT, AUTOMATED 246 10^3/uL (150-450); RED BLOOD COUNT 4.04 10^6/uL (4.00-5.40)
[2022-03-31 18:35] LABS: LIPASE 17 U/L (12-53)
[2022-03-31 18:37] LABS: BILIRUBIN,DIRECT < 0.1 MG/DL (<0.4)
[2022-03-31 18:38] LABS: ALBUMIN 3.5 G/DL (3.2-5.2); ALKALINE PHOSPHATASE 135 U/L (46-116); ALT/SGPT 25 U/L (7.0-40); AST/SGOT 23 U/L (<34); BILIRUBIN,TOTAL 0.3 MG/DL (0.3-1.2); BLOOD UREA NITROGEN 23 MG/DL (9-23); CALCIUM LEVEL 8.8 MG/DL (8.3-10.6); CARBON DIOXIDE LEVEL 26 MMOL/L (20-31); CHLORIDE LEVEL 106 MMOL/L (98-107); CK-MB VALUE MASS 2.4 NG/ML (<3.6); CREATININE FOR GFR 1.04 MG/DL (0.55-1.30); GLOMERULAR FILTRATION RATE 55.8 (>39); GLUCOSE, FASTING 114 MG/DL (74-106); SODIUM LEVEL 141 MMOL/L (136-145); TOTAL PROTEIN 6.5 G/DL (5.7-8.2)
[2022-03-31 18:41] LABS: THYROID STIMULATING HORMONE 2.187 uIU/ML (0.55-4.78)
[2022-03-31 18:42] LABS: FREE T4 1.05 NG/DL (0.89-1.76)
[2022-03-31 18:43] LABS: VENOUS BASE EXCESS 0.9 (-2.0-2.0); VENOUS HCO3 25.2 MEQ/L (23.0-27.0); VENOUS O2 SATURATION 97.8 % (60.0-80.0); VENOUS PARTIAL PRESSURE O2 118.8 mmHg (30.0-50.0); VENOUS PH 7.428 UNITS (7.330-7.430); VENOUS STANDARD HCO3 25.3 MEQ/L; VENOUS TOTAL CO2 26.4 MEQ/L (24.0-28.0)
[2022-03-31 18:46] LABS: CPK CREATINE PHOSPHOKINASE 243 U/L (34-145); MB/CK RELATIVE INDEX 0.98 (< OR =4)
[2022-03-31 18:56] LABS: RSV AMPLIFICATION NEGATIVE (NEGATIVE)
[2022-03-31 19:28] LABS: CK-MB VALUE MASS 2.5 NG/ML (<3.6)
[2022-03-31 19:29] LABS: MB/CK RELATIVE INDEX 1.06 (< OR =4)
[2022-03-31] MEDS ORDERED: ISOVUE-370 76% 100ML VIAL As Ordered ONE (19:35)
[2022-03-31] MEDS ORDERED: TIZA2TA PO (20:24)
[2022-03-31] MEDS ORDERED: JARD1TAB3 PO (20:24)
[2022-03-31] MEDS ORDERED: INSUHUMDS SC (20:24)
[2022-03-31] MEDS ORDERED: HYDR-3716 PO (20:24)
[2022-03-31] MEDS ORDERED: ADV100INH INH (20:24)
[2022-03-31] MEDS ORDERED: PREG50CA PO (20:24)
[2022-03-31] MEDS ORDERED: HOME MED LIST COMPLETE! XX SCH (20:30)
[2022-03-31 22:45] VITALS: O2SAT 92
[2022-03-31] MEDS ORDERED: PRED10TA2 PO (22:46)
[2022-03-31] MEDS ORDERED: IPRA0.00 INH (22:46)
[2022-03-31 22:49] VITALS: BP 153/61
== END 2022-03-31 23:08 | disposition home or self-care (01) ==
LOC: EDBD 17:32 → M ED 17:32
DX: J44.1 Chronic obstructive pulmonary disease with (acute) exacerbation (principal); E11.9 Type 2 diabetes mellitus without complications; I10 Essential (primary) hypertension; E78.5 Hyperlipidemia, unspecified; K21.9 Gastro-esophageal reflux disease without esophagitis; I50.9 Heart failure, unspecified; J45.909 Unspecified asthma, uncomplicated; N18.30 Chronic kidney disease, stage 3 unspecified; F41.9 Anxiety disorder, unspecified; F32.9 Major depressive disorder, single episode, unspecified; Z86.711 Personal history of pulmonary embolism; R91.8 Other nonspecific abnormal finding of lung field; Z79.01 Long term (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 anticoagulants; Z79.4 Long term (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; Z79.899 Other long term (current) drug therapy; Z88.8 Allergy status to other drugs, medicaments and biological substances; Z88.6 Allergy status to analgesic agent; Z88.5 Allergy status to narcotic agent; Z91.89 Other specified personal risk factors, not elsewhere classified; Z91.040 Latex allergy status
CPT/HCPCS: 36415; 71045; 71275; 80048; 80076; 82550; 82553; 82803; 83690; 83880; 84439; 84443; 84484; 85025; 87631; 93005; 93041; 94760; 99285; Q9967

== ENCOUNTER → 2022-04-25 | Outpatient (REF) | payer MEDICARE, MEDICAID ==
[~2022-04-25] MED LIST changes: +HYDR-3716 PO; +IPRA0.00 INH; +JARD1TAB3 PO; +TIZA2TA PO
[2022-04-25 16:49] LABS: APPEARANCE, URINE MANUAL CLEAR (CLEAR); BILIRUBIN, URINE MANUAL NEGATIVE (NEGATIVE); BLOOD URINE MANUAL NEGATIVE (NEGATIVE); COLOR, URINE MANUAL LT YELLOW (YELLOW); GLUCOSE, URINE (UA) MANUAL 4+(1000 MG/DL) mg/dL (NEGATIVE); KETONE, URINE MANUAL NEGATIVE (NEGATIVE); LEUKOCYTE ESTERASE, URINE MAN NEGATIVE (NEGATIVE); NITRITE, URINE MANUAL NEGATIVE (NEGATIVE); PROTEIN, URINE MANUAL NEGATIVE (NEGATIVE); SPECIFIC GRAVITY,URINE MANUAL 1.015 (1.002-1.035); UROBILINOGEN, URINE MANUAL NORMAL (NORMAL)
== END ==
PROVIDERS: ATTEND Physician Assistant Medical
DX: R30.0 Dysuria (principal)

== ENCOUNTER → 2022-04-27 | Outpatient (CLI) | payer MEDICARE ==
[2022-04-27 17:47] LABS: BASO # 0.1 10^3/uL (0.0-0.2); BASO % 0.7 % (0.0-1.0); EOS # 0.1 10^3/uL (0.0-0.5); EOS % 1.7 % (0.0-3.0); HEMATOCRIT 35.7 % (36.0-47.0); HEMOGLOBIN 10.8 g/dl (12.0-15.5); LYMPH # 2.3 10^3/uL (1.5-5.0); LYMPH % 30.7 % (24.0-44.0); MEAN CORPUSCULAR HEMOGLOBIN 24.5 pg (27.0-33.0); MEAN CORPUSCULAR HGB CONC 30.3 g/dl (32.0-36.5); MONO # 0.5 10^3/uL (0.0-0.8); NEUTROPHILS # 4.4 10^3/uL (1.5-8.5); NEUTROPHILS % 59.6 % (36.0-66.0); PLATELET COUNT, AUTOMATED 279 10^3/uL (150-450); RED BLOOD COUNT 4.41 10^6/uL (4.00-5.40); WHITE BLOOD COUNT 7.5 10^3/uL (4.0-10.0)
[2022-04-27 18:24] LABS: ALBUMIN 3.5 G/DL (3.2-5.2); BILIRUBIN,TOTAL 0.3 MG/DL (0.3-1.2); CALCIUM LEVEL 9.5 MG/DL (8.3-10.6); CREATININE FOR GFR 1.04 MG/DL (0.55-1.30); GLOMERULAR FILTRATION RATE 55.8 (>39); POTASSIUM SERUM 4.4 MMOL/L (3.5-5.1)
[2022-04-27 19:22] LABS: HEMOGLOBIN A1c 9.6 % (4.0-6.0)
[2022-04-27 22:15] LABS: TOTAL PROTEIN 6.5 G/DL (5.7-8.2)
== END ==
LOC: M PLALAB 15:02
PROVIDERS: ATTEND Physician Assistant Medical
DX: E11.622 Type 2 diabetes mellitus with other skin ulcer (principal); I50.32 Chronic diastolic (congestive) heart failure; E11.22 Type 2 diabetes mellitus with diabetic chronic kidney disease; I11.0 Hypertensive heart disease with heart failure

== ENCOUNTER 2022-06-01 14:55 | Emergency (ER) | payer MEDICARE, MEDICAID ==
[~2022-06-01] VITALS: Ht 167.6 cm; Wt 124.9 kg
[~2022-06-01 14:55] MED LIST changes: -DOXY-443 PO
[2022-06-01 15:39] LABS: ABG BASE EXCESS 1.6 (-2.0-2.0); ABG O2 SATURATION 97.3 % (95.0-99.0); ABG PARTIAL PRESSURE CO2 35.7 mmHg (35.0-45.0); ABG STANDARD HCO3 25.9 MEQ/L (22.0-26.0); ABG TOTAL CO2 26.1 MEQ/L (23.0-31.0); ABG pH (ARTERIAL) 7.464 UNITS (7.350-7.450)
[2022-06-01] MEDS ORDERED: ALBUTEROL SULFATE 2.5MG/0.5ML INH NEB SOLN INH ONE (15:45)
[2022-06-01] MEDS ORDERED: IPRATROPIUM 0.5MG/ALBUTEROL 2.5MG INH SOL UD 3ML (DUONEB) NEB ONE (15:45)
[2022-06-01] MEDS ORDERED: methylPREDNISolone 125MG 2ML VIAL IV ONE (15:45)
[2022-06-01 15:59] LABS: BASO # 0.1 10^3/uL (0.0-0.2); BASO % 0.4 % (0.0-1.0); EOS # 0.1 10^3/uL (0.0-0.5); EOS % 0.4 % (0.0-3.0); HEMATOCRIT 38.8 % (36.0-47.0); LYMPH # 2.5 10^3/uL (1.5-5.0); LYMPH % 17.4 % (24.0-44.0); MEAN CORPUSCULAR HEMOGLOBIN 23.7 pg (27.0-33.0); MEAN CORPUSCULAR HGB CONC 30.9 g/dl (32.0-36.5); MEAN CORPUSCULAR VOLUME 76.7 fl (80.0-96.0); MONO % 6.7 % (2.0-8.0); NEUTROPHILS # 10.5 10^3/uL (1.5-8.5); NEUTROPHILS % 74.6 % (36.0-66.0); PLATELET COUNT, AUTOMATED 283 10^3/uL (150-450); RED BLOOD COUNT 5.06 10^6/uL (4.00-5.40); WHITE BLOOD COUNT 14.1 10^3/uL (4.0-10.0)
[2022-06-01 16:24] LABS: CK-MB VALUE MASS 1.1 NG/ML (<3.6)
[2022-06-01 16:26] LABS: ALBUMIN 3.6 G/DL (3.2-5.2); BILIRUBIN,DIRECT 0.2 MG/DL (<0.4); BILIRUBIN,TOTAL 0.6 MG/DL (0.3-1.2); CREATININE FOR GFR 1.07 MG/DL (0.55-1.30); MB/CK RELATIVE INDEX 0.79 (< OR =4); POTASSIUM SERUM 4.3 MMOL/L (3.5-5.1); TOTAL PROTEIN 6.8 G/DL (5.7-8.2)
[2022-06-01 16:27] LABS: THYROID STIMULATING HORMONE 2.104 uIU/ML (0.55-4.78); THYROXINE (T4) 9.7 UG/DL (4.5-10.9)
[2022-06-01] MEDS ORDERED: MUPI2OI TOP (16:55)
[2022-06-01] MEDS ORDERED: IPRA0.00 INH (16:55)
[2022-06-01] MEDS ORDERED: DICL1GEL3 TOP (16:55)
[2022-06-01] MEDS ORDERED: MILKSUS3 PO (16:55)
[2022-06-01] MEDS ORDERED: INSUHUMDS SC (16:55)
[2022-06-01] MEDS ORDERED: HOME MED LIST COMPLETE! XX SCH (17:00)
[2022-06-01 17:15] LABS: CK-MB VALUE MASS 1.3 NG/ML (<3.6)
[2022-06-01 17:16] LABS: MB/CK RELATIVE INDEX 1.04 (< OR =4)
[2022-06-01 19:29] LABS: CK-MB VALUE MASS < 1.0 NG/ML (<3.6)
[2022-06-01 19:36] LABS: CPK CREATINE PHOSPHOKINASE 131 U/L (34-145); MB/CK RELATIVE INDEX 0.76 (< OR =4)
[2022-06-01 20:49] VITALS: O2SAT 96
[2022-06-01] MEDS ORDERED: DOXY-443 PO (21:00)
[2022-06-01] MEDS ORDERED: DOXYCYCLINE HYCLATE 100MG TABLET PO ONE ×2 (21:00→21:45)
[2022-06-01] MEDS ORDERED: PRED20TA PO (21:03)
[2022-06-01 21:45] VITALS: BP 143/62
== END 2022-06-01 22:05 | disposition home or self-care (01) ==
LOC: EDBD 14:55 → M ED 14:55
DX: J44.1 Chronic obstructive pulmonary disease with (acute) exacerbation (principal); I11.9 Hypertensive heart disease without heart failure; Z86.73 Personal history of transient ischemic attack (TIA), and cerebral infarction without residual deficits; Z87.891 Personal history of nicotine dependence; E11.9 Type 2 diabetes mellitus without complications; Z79.4 Long term (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; Z79.899 Other long term (current) drug therapy; Z79.84 Long term (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 oral hypoglycemic drugs; Z79.51 Long term (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 inhaled steroids; Z20.822 Contact with and (suspected) exposure to COVID-19
CPT/HCPCS: 36600; 71045; 80047; 80048; 80076; 82550; 82553; 82803; 83605; 83880; 84436; 84443; 84484; 85025; 87040; 87486; 87581; 87633; 87798; 93005; 93041; 94640; 94760; 99285; J2930

== ENCOUNTER → 2022-06-01 | Outpatient (REF) | payer MEDICARE, MEDICAID ==
[~2022-06-01] MED LIST changes: +DOXY-443 PO
== END ==
PROVIDERS: ATTEND Family Medicine
DX: Z20.822 Contact with and (suspected) exposure to COVID-19 (principal)

== ENCOUNTER 2022-06-27 13:55 | Emergency (ER) | payer MEDICAID, MEDICARE ==
[~2022-06-27] VITALS: Ht 167.6 cm; Wt 129.5 kg
[~2022-06-27 13:55] MED LIST changes: +DOXY-443 PO; +FLUT50SP17 NARES; -FLUTISP NARES
[2022-06-27] MEDS ORDERED: ADV250INH INH (15:48)
[2022-06-27] MEDS ORDERED: VASC1CAP2 PO (15:53)
[2022-06-27] MEDS: ACETAMINOPHEN TAB 650MG DOSE (2X325MG) PO ONE ×2 (15:55→15:58)
[2022-06-27] MEDS ORDERED: HOME MED LIST COMPLETE! XX SCH (16:00)
[2022-06-27 16:54] LABS: CALCIUM LEVEL 8.5 MG/DL (8.3-10.6); CREATININE FOR GFR 0.99 MG/DL (0.55-1.30); POTASSIUM SERUM 4.4 MMOL/L (3.5-5.1)
[2022-06-27] MEDS ORDERED: oxyCODONE 5MG TAB PO ONE (17:45)
[2022-06-27 19:36] VITALS: BP 143/63
== END 2022-06-27 19:43 | disposition home or self-care (01) ==
LOC: M ED 13:55 → EDBD 13:55 → M ED 19:43
DX: M54.50 Low back pain, unspecified (principal); E11.9 Type 2 diabetes mellitus without complications; I10 Essential (primary) hypertension; E78.5 Hyperlipidemia, unspecified; J44.9 Chronic obstructive pulmonary disease, unspecified; G25.81 Restless legs syndrome; G47.33 Obstructive sleep apnea (adult) (pediatric); Z86.711 Personal history of pulmonary embolism; N18.30 Chronic kidney disease, stage 3 unspecified; Z87.891 Personal history of nicotine dependence; Z79.899 Other long term (current) drug therapy; Z88.1 Allergy status to other antibiotic agents; Z88.5 Allergy status to narcotic agent; Z88.6 Allergy status to analgesic agent; Z91.040 Latex allergy status; Z88.8 Allergy status to other drugs, medicaments and biological substances; Z79.4 Long term (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; Z79.51 Long term (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 inhaled steroids; Z79.01 Long term (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 anticoagulants

== ENCOUNTER → 2022-07-07 | Outpatient (REF) | payer MEDICARE ==
[2022-07-07 15:59] LABS: APPEARANCE, URINE CLEAR (CLEAR); BACTERIA, URINE AUTO NEGATIVE (NEGATIVE); BILIRUBIN, URINE AUTO NEGATIVE (NEGATIVE); BLOOD, URINE BLOOD NEGATIVE (NEGATIVE); COLOR, URINE YELLOW (YELLOW); GLUCOSE, URINE (UA) AUTO 3+ mg/dL (NEGATIVE); KETONE, URINE AUTO NEGATIVE (NEGATIVE); LEUKOCYTE ESTERASE, URINE AUTO NEGATIVE (NEGATIVE); NITRITE, URINE AUTO NEGATIVE (NEGATIVE); PROTEIN, URINE AUTO NEGATIVE (NEGATIVE); RBC, URINE AUTO 1 /HPF (0-3); SPECIFIC GRAVITY URINE AUTO 1.029 (1.002-1.035); SQUAMOUS EPITHELIAL CELL UR AU 2 /HPF (0-6); UROBILINOGEN, URINE AUTO 0.2 mg/dL (0.0-2.0); WBC, URINE AUTO 1 /HPF (0-3)
== END ==
PROVIDERS: ATTEND Family Medicine
DX: R30.0 Dysuria (principal)

== ENCOUNTER 2022-07-09 07:58 | Emergency (ER) | payer MEDICARE ==
[~2022-07-09] VITALS: Ht 167.6 cm; Wt 128.1 kg
[2022-07-09 09:46] VITALS: O2SAT 97
[2022-07-09 12:13] VITALS: BP 124/60
== END 2022-07-09 12:35 | disposition home or self-care (01) ==
LOC: M ED 07:58 → EDBD 07:58 → M ED 12:35
DX: S80.10XA Contusion of unspecified lower leg, initial encounter (principal); S39.012A Strain of muscle, fascia and tendon of lower back, initial encounter; X58.XXXA Exposure to other specified factors, initial encounter; Y92.89 Other specified places as the place of occurrence of the external cause; Y93.89 Activity, other specified; Y99.8 Other external cause status; G89.4 Chronic pain syndrome; E11.40 Type 2 diabetes mellitus with diabetic neuropathy, unspecified; E78.5 Hyperlipidemia, unspecified; G47.33 Obstructive sleep apnea (adult) (pediatric); I50.20 Unspecified systolic (congestive) heart failure; Z88.8 Allergy status to other drugs, medicaments and biological substances; Z91.040 Latex allergy status; Z79.899 Other long term (current) drug therapy; Z79.4 Long term (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

== ENCOUNTER 2022-08-07 13:55 | Emergency (ER) | payer MEDICARE ==
[~2022-08-07] VITALS: Ht 170.2 cm; Wt 129.0 kg
[~2022-08-07 13:55] MED LIST changes: +NYST100085 TOP; -NYSTOI TOP; +POTA-298 PO; -POTA1TAB14 PO
[2022-08-07] MEDS ORDERED: traMADol 50 MG TAB PO ONE (16:15)
[2022-08-07] MEDS ORDERED: TRAM50TA2 PO (18:17)
[2022-08-07 18:23] VITALS: BP 175/79
== END 2022-08-07 19:15 | disposition home or self-care (01) ==
LOC: M ED 13:55 → EDSEX 13:55 → EDBD 13:55 → M ED 19:15
DX: S70.02XA Contusion of left hip, initial encounter (principal); W06.XXXA Fall from bed, initial encounter; Y92.003 Bedroom of unspecified non-institutional (private) residence as the place of occurrence of the external cause; Y93.89 Activity, other specified; Y99.8 Other external cause status; I10 Essential (primary) hypertension; E11.9 Type 2 diabetes mellitus without complications; E78.5 Hyperlipidemia, unspecified; J44.9 Chronic obstructive pulmonary disease, unspecified; F41.1 Generalized anxiety disorder; G47.33 Obstructive sleep apnea (adult) (pediatric); G25.81 Restless legs syndrome; N18.9 Chronic kidney disease, unspecified; Z87.891 Personal history of nicotine dependence; Z79.899 Other long term (current) drug therapy; Z88.8 Allergy status to other drugs, medicaments and biological substances; Z91.040 Latex allergy status; Z79.01 Long term (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 anticoagulants; Z79.4 Long term (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

== ENCOUNTER → 2022-08-09 | Outpatient (REF) | payer MEDICARE, MEDICAID ==
[2022-08-09 14:25] LABS: APPEARANCE, URINE CLOUDY (CLEAR); BACTERIA, URINE AUTO 1+ (NEGATIVE); BILIRUBIN, URINE AUTO NEGATIVE (NEGATIVE); BLOOD, URINE BLOOD NEGATIVE (NEGATIVE); COLOR, URINE YELLOW (YELLOW); GLUCOSE, URINE (UA) AUTO 3+ mg/dL (NEGATIVE); KETONE, URINE AUTO TRACE mg/dL (NEGATIVE); LEUKOCYTE ESTERASE, URINE AUTO 3+ (NEGATIVE); MUCUS, URINE SMALL (NEGATIVE); NITRITE, URINE AUTO NEGATIVE (NEGATIVE); PROTEIN, URINE AUTO 1+ mg/dL (NEGATIVE); RBC, URINE AUTO 5 /HPF (0-3); SPECIFIC GRAVITY URINE AUTO 1.024 (1.002-1.035); SQUAMOUS EPITHELIAL CELL UR AU 15 /HPF (0-6); UROBILINOGEN, URINE AUTO 0.2 mg/dL (0.0-2.0); WBC, URINE AUTO TNTC /HPF (0-3)
[2022-08-09 14:40] LABS: CREATININE, URINE 114.7 MG/DL
[2022-08-09 14:41] LABS: MAU/CREAT RATIO 108.1 MCG/MG (0.0-30.0)
== END ==
LOC: M SFHCPLAZ 08:54
PROVIDERS: ATTEND Physician Assistant Medical
DX: R30.0 Dysuria (principal); E11.622 Type 2 diabetes mellitus with other skin ulcer

== ENCOUNTER 2022-08-25 02:54 | Inpatient (IN) | payer MEDICARE, MEDICAID ==
[~2022-08-25] VITALS: Ht 167.6 cm; Wt 125.7 kg
[~2022-08-25 02:54] MED LIST changes: -K-TA10TA PO; +POTA-164 PO
[2022-08-25 03:42] LABS: BASO # 0.1 10^3/uL (0.0-0.2); BASO % 0.5 % (0.0-1.0); EOS # 0.1 10^3/uL (0.0-0.5); EOS % 0.7 % (0.0-3.0); HEMATOCRIT 34.7 % (36.0-47.0); HEMOGLOBIN 11.1 g/dl (12.0-15.5); LYMPH # 2.1 10^3/uL (1.5-5.0); LYMPH % 19.3 % (24.0-44.0); MEAN CORPUSCULAR HEMOGLOBIN 24.4 pg (27.0-33.0); MEAN CORPUSCULAR VOLUME 76.4 fl (80.0-96.0); MONO # 0.9 10^3/uL (0.0-0.8); MONO % 7.9 % (2.0-8.0); NEUTROPHILS # 7.9 10^3/uL (1.5-8.5); NEUTROPHILS % 71.3 % (36.0-66.0); PLATELET COUNT, AUTOMATED 298 10^3/uL (150-450); RED BLOOD COUNT 4.54 10^6/uL (4.00-5.40); WHITE BLOOD COUNT 11.1 10^3/uL (4.0-10.0)
[2022-08-25] MEDS ORDERED: methylPREDNISolone 125MG 2ML VIAL IV ONE (04:05)
[2022-08-25 04:07] LABS: CALCIUM LEVEL 9.2 MG/DL (8.3-10.6); CK-MB VALUE MASS 1.1 NG/ML (<3.6); CREATININE FOR GFR 1.27 MG/DL (0.55-1.30); GLOMERULAR FILTRATION RATE 44.2 (>39); MB/CK RELATIVE INDEX 0.8 (< OR =4); POTASSIUM SERUM 4.1 MMOL/L (3.5-5.1)
[2022-08-25 04:09] LABS: FREE T4 1.21 NG/DL (0.89-1.76); THYROID STIMULATING HORMONE 2.126 uIU/ML (0.55-4.78)
[2022-08-25] MEDS ORDERED: ISOVUE-370 76% 100ML VIAL As Ordered ONE (04:20)
[2022-08-25 04:54] LABS: ALBUMIN 3.3 G/DL (3.2-5.2); BILIRUBIN,DIRECT 0.2 MG/DL (<0.4); BILIRUBIN,TOTAL 0.4 MG/DL (0.3-1.2); TOTAL PROTEIN 6.5 G/DL (5.7-8.2)
[2022-08-25] MEDS ORDERED: ADVA115A INH (05:10)
[2022-08-25] MEDS ORDERED: FLUC100T3 PO (05:10)
[2022-08-25] MEDS ORDERED: DICL1GEL3 TOP (05:10)
[2022-08-25] MEDS ORDERED: HOME MED LIST COMPLETE! XX SCH (05:10)
[2022-08-25] MEDS ORDERED: MUCI600T31 PO (05:10)
[2022-08-25] MEDS ORDERED: NYST-13 EXT (05:10)
[2022-08-25 05:28] LABS: CK-MB VALUE MASS < 1.0 NG/ML (<3.6)
[2022-08-25 05:29] LABS: CPK CREATINE PHOSPHOKINASE 107 U/L (34-145); MB/CK RELATIVE INDEX 0.93 (< OR =4)
[2022-08-25] MEDS ORDERED: cefTRIAXone SOD 2 GM in D5W MINI-BAG PLUS 50 ML IV ONE (06:55)
[2022-08-25] MEDS ORDERED: ANEXSIA, NORCO 7.5MG/325MG TABLET(HYDROCODONE/APAP) PO PRN (07:35)
[2022-08-25] MEDS ORDERED: ACETAMINOPHEN TAB 650MG DOSE (2X325MG) PO PRN (07:35)
[2022-08-25] MEDS ORDERED: FUROSEMIDE 100MG/10ML VIAL IV ONE ×2 (07:35→10:30)
[2022-08-25] MEDS: SODIUM CHLORIDE HYPERTONIC 3% 15ML NEB SOL INH SCH ×5 (08:00→23:47)
[2022-08-25] MEDS: IPRATROPIUM 0.5MG/ALBUTEROL 2.5MG INH SOL UD 3ML (DUONEB) NEB SCH ×5 (08:00→23:47)
[2022-08-25] MEDS ORDERED: cefTRIAXone SOD 1 GM in D5W MINI-BAG PLUS 50 ML IV SCH (08:00)
[2022-08-25 09:03] VITALS: BP 131/67; TEMP 97.9; O2SAT 96
[2022-08-25] MEDS ORDERED: GLUCOSE 4GM CHEW TABLET PO PRN (10:30)
[2022-08-25] MEDS ORDERED: tiZANidine 4 MG TAB PO PRN (10:30)
[2022-08-25] MEDS ORDERED: DEXTROSE 50% 50ML SYRINGE IV PRN (10:30)
[2022-08-25] MEDS ORDERED: GLUCAGON INJ 1MG VIAL SC PRN (10:30)
[2022-08-25] MEDS ORDERED: NORCO, ANEXSIA 5/325MG TABLET (HYDROcodone/ACETAMINOPHEN) PO PRN (10:30)
[2022-08-25] MEDS ORDERED: PILL CUTTER 1 EACH XX PRN (10:50)
[2022-08-25] MEDS: DOCUSATE SODIUM 100MG CAPSULE PO SCH ×2 (10:58→20:02)
[2022-08-25] MEDS: APIXABAN 5 MG TAB (ELIQUIS) PO SCH ×2 (10:58→20:02)
[2022-08-25] MEDS: DOXYCYCLINE HYCLATE 100 MG in D5W MINI-BAG PLUS 100 ML IV SCH ×2 (10:59→20:01)
[2022-08-25] MEDS: OMEPRAZOLE 20MG CAP PO SCH (10:59)
[2022-08-25] MEDS: LEVEMIR (INSULIN DETEMIR) 1 UNITS/0.01ML SC SCH ×2 (11:00→20:01)
[2022-08-25] MEDS: INSULIN LISPRO (NovoLOG) PER UNIT SC SCH ×3 (11:01→20:01)
[2022-08-25] MEDS: ADVAIR HFA 115/21MCG INHALER INH SCH ×2 (11:32→20:24)
[2022-08-25] MEDS: FLUTICASONE PROP 0.05% NASAL SPRAY 16 GM (FLONASE) NARES SCH ×2 (11:41→20:02)
[2022-08-25] MEDS: DULoxetine 20MG CAP (CYMBALTA) PO SCH ×2 (11:41→20:04)
[2022-08-25] MEDS ORDERED: INSULIN LISPRO (NovoLOG) PER UNIT SC ONE (12:45)
[2022-08-25 14:00] VITALS: BP 142/56; TEMP 98.1; O2SAT 92
[2022-08-25] MEDS: MIRALAX *UNIT DOSE* 17GM PACKET PO SCH (14:11)
[2022-08-25] MEDS: ATORVASTATIN 20 MG TAB PO SCH (20:02)
[2022-08-25] MEDS: SENNA 8.6 MG TAB (SENOKOT) PO SCH (20:02)
[2022-08-25] MEDS: LOSARTAN 50MG TABLET PO SCH (20:02)
[2022-08-25 21:00] VITALS: BP 142/58; TEMP 97.5; O2SAT 93
[2022-08-26] MEDS ORDERED: ALBUTEROL SULFATE 2.5MG/0.5ML INH NEB SOLN NEB PRN (01:30)
[2022-08-26] MEDS: IPRATROPIUM 0.5MG/ALBUTEROL 2.5MG INH SOL UD 3ML (DUONEB) NEB SCH ×6 (02:48→23:26)
[2022-08-26] MEDS: SODIUM CHLORIDE HYPERTONIC 3% 15ML NEB SOL INH SCH ×4 (02:48→14:56)
[2022-08-26] MEDS ORDERED: INSULIN LISPRO (NovoLOG) PER UNIT SC ONE (04:00)
[2022-08-26 06:00] VITALS: BP 139/63; TEMP 98.2; O2SAT 92
[2022-08-26 06:23] LABS: BASO % 0.1 % (0.0-1.0); HEMATOCRIT 36.4 % (36.0-47.0); HEMOGLOBIN 11.5 g/dl (12.0-15.5); LYMPH % 7.9 % (24.0-44.0); MEAN CORPUSCULAR HEMOGLOBIN 24.4 pg (27.0-33.0); MEAN CORPUSCULAR HGB CONC 31.6 g/dl (32.0-36.5); MEAN CORPUSCULAR VOLUME 77.1 fl (80.0-96.0); MONO # 0.6 10^3/uL (0.0-0.8); MONO % 4.6 % (2.0-8.0); NEUTROPHILS # 11.3 10^3/uL (1.5-8.5); NEUTROPHILS % 86.7 % (36.0-66.0); PLATELET COUNT, AUTOMATED 320 10^3/uL (150-450); RED BLOOD COUNT 4.72 10^6/uL (4.00-5.40)
[2022-08-26 06:51] LABS: FERRITIN 20.4 NG/ML (7.3-270.7)
[2022-08-26 06:53] LABS: CALCIUM LEVEL 8.7 MG/DL (8.3-10.6); CREATININE FOR GFR 1.27 MG/DL (0.55-1.30); GLOMERULAR FILTRATION RATE 44.2 (>39); POTASSIUM SERUM 3.7 MMOL/L (3.5-5.1)
[2022-08-26 06:54] LABS: PERCENT SATURATION 4.5 % (13.2-45.0)
[2022-08-26 07:08] LABS: FOLATE 11.15 NG/ML (>5.4)
[2022-08-26] MEDS: ADVAIR HFA 115/21MCG INHALER INH SCH ×2 (07:28→19:56)
[2022-08-26] MEDS: INSULIN LISPRO (NovoLOG) PER UNIT SC SCH ×4 (09:27→22:02)
[2022-08-26] MEDS: cefTRIAXone SOD 1 GM in D5W MINI-BAG PLUS 50 ML IV SCH (09:28)
[2022-08-26] MEDS: FERROUS GLUCONATE 324 MG TAB PO SCH (09:28)
[2022-08-26] MEDS: DOXYCYCLINE HYCLATE 100 MG in D5W MINI-BAG PLUS 100 ML IV SCH (09:28)
[2022-08-26] MEDS: OMEPRAZOLE 20MG CAP PO SCH (09:29)
[2022-08-26] MEDS: MIRALAX *UNIT DOSE* 17GM PACKET PO SCH (09:29)
[2022-08-26] MEDS: APIXABAN 5 MG TAB (ELIQUIS) PO SCH ×2 (09:29→21:55)
[2022-08-26] MEDS: DOCUSATE SODIUM 100MG CAPSULE PO SCH ×2 (09:29→21:55)
[2022-08-26] MEDS: FLUTICASONE PROP 0.05% NASAL SPRAY 16 GM (FLONASE) NARES SCH ×2 (09:30→22:02)
[2022-08-26] MEDS: LEVEMIR (INSULIN DETEMIR) 1 UNITS/0.01ML SC SCH ×2 (09:30→22:01)
[2022-08-26] MEDS: DULoxetine 20MG CAP (CYMBALTA) PO SCH ×2 (09:31→21:59)
[2022-08-26 14:00] VITALS: BP 139/59; TEMP 98.2; O2SAT 94
[2022-08-26] MEDS: SODIUM CHLORIDE HYPERTONIC 3% 4ML NEB SOL INH SCH ×2 (19:56→23:26)
[2022-08-26 21:00] VITALS: BP 139/59; TEMP 98.4; O2SAT 93
[2022-08-26] MEDS: SENNA 8.6 MG TAB (SENOKOT) PO SCH (21:55)
[2022-08-26] MEDS: ATORVASTATIN 20 MG TAB PO SCH (21:55)
[2022-08-26] MEDS: DOXYCYCLINE HYCLATE 100MG TABLET PO SCH (21:55)
[2022-08-26] MEDS: LOSARTAN 50MG TABLET PO SCH (22:00)
[2022-08-27] MEDS: SODIUM CHLORIDE HYPERTONIC 3% 4ML NEB SOL INH SCH ×5 (03:05→19:57)
[2022-08-27] MEDS: IPRATROPIUM 0.5MG/ALBUTEROL 2.5MG INH SOL UD 3ML (DUONEB) NEB SCH ×6 (03:05→23:01)
[2022-08-27 05:24] VITALS: BP 131/60; TEMP 97; O2SAT 91
[2022-08-27 05:25] LABS: BASO # 0.1 10^3/uL (0.0-0.2); BASO % 0.5 % (0.0-1.0); EOS # 0.1 10^3/uL (0.0-0.5); EOS % 0.8 % (0.0-3.0); HEMATOCRIT 36.1 % (36.0-47.0); HEMOGLOBIN 11.3 g/dl (12.0-15.5); LYMPH # 2.4 10^3/uL (1.5-5.0); LYMPH % 24.1 % (24.0-44.0); MEAN CORPUSCULAR HEMOGLOBIN 24.5 pg (27.0-33.0); MEAN CORPUSCULAR HGB CONC 31.3 g/dl (32.0-36.5); MEAN CORPUSCULAR VOLUME 78.1 fl (80.0-96.0); MONO # 0.6 10^3/uL (0.0-0.8); MONO % 6.3 % (2.0-8.0); NEUTROPHILS # 6.9 10^3/uL (1.5-8.5); PLATELET COUNT, AUTOMATED 321 10^3/uL (150-450); RED BLOOD COUNT 4.62 10^6/uL (4.00-5.40); WHITE BLOOD COUNT 10.1 10^3/uL (4.0-10.0)
[2022-08-27 05:28] LABS: CALCIUM LEVEL 8.8 MG/DL (8.3-10.6); CREATININE FOR GFR 1.19 MG/DL (0.55-1.30); GLOMERULAR FILTRATION RATE 47.6 (>39); POTASSIUM SERUM 3.7 MMOL/L (3.5-5.1)
[2022-08-27] MEDS ORDERED: FUROSEMIDE 100MG/10ML VIAL IV ONE (07:25)
[2022-08-27] MEDS: ADVAIR HFA 115/21MCG INHALER INH SCH ×2 (07:53→19:57)
[2022-08-27] MEDS: LEVEMIR (INSULIN DETEMIR) 1 UNITS/0.01ML SC SCH ×2 (08:45→21:03)
[2022-08-27] MEDS: INSULIN LISPRO (NovoLOG) PER UNIT SC SCH ×4 (08:45→21:04)
[2022-08-27] MEDS: cefTRIAXone SOD 1 GM in D5W MINI-BAG PLUS 50 ML IV SCH (08:46)
[2022-08-27] MEDS: SENNA 8.6 MG TAB (SENOKOT) PO SCH ×2 (08:50→21:03)
[2022-08-27] MEDS: DULoxetine 20MG CAP (CYMBALTA) PO SCH ×2 (08:50→21:03)
[2022-08-27] MEDS: DOXYCYCLINE HYCLATE 100MG TABLET PO SCH ×2 (08:50→21:03)
[2022-08-27] MEDS: APIXABAN 5 MG TAB (ELIQUIS) PO SCH ×2 (08:50→21:02)
[2022-08-27] MEDS: FERROUS GLUCONATE 324 MG TAB PO SCH (08:50)
[2022-08-27] MEDS: OMEPRAZOLE 20MG CAP PO SCH (08:51)
[2022-08-27] MEDS: DOCUSATE SODIUM 100MG CAPSULE PO SCH ×2 (08:51→21:02)
[2022-08-27] MEDS: FLUTICASONE PROP 0.05% NASAL SPRAY 16 GM (FLONASE) NARES SCH ×2 (08:51→21:05)
[2022-08-27] MEDS: MIRALAX *UNIT DOSE* 17GM PACKET PO SCH (08:51)
[2022-08-27 13:30] VITALS: O2SAT 94
[2022-08-27 14:00] VITALS: BP 139/89; TEMP 97.7; O2SAT 93
[2022-08-27] MEDS ORDERED: KETOROLAC 30 MG/ML 1ML VIAL IV ONE (14:15)
[2022-08-27] MEDS: LACTULOSE 20GM/30ML SYRUP UDC PO SCH ×3 (14:32→23:15)
[2022-08-27 15:14] LABS: CK-MB VALUE MASS 1.4 NG/ML (<3.6)
[2022-08-27 15:16] LABS: MB/CK RELATIVE INDEX 1.06 (< OR =4)
[2022-08-27] MEDS: LOSARTAN 50MG TABLET PO SCH (21:03)
[2022-08-27] MEDS: ATORVASTATIN 20 MG TAB PO SCH (21:03)
[2022-08-27 21:58] LABS: CK-MB VALUE MASS 1.9 NG/ML (<3.6)
[2022-08-27 22:00] VITALS: BP 138/65; TEMP 97.7; O2SAT 92
[2022-08-27 22:00] LABS: MB/CK RELATIVE INDEX 1.63 (< OR =4)
[2022-08-27 22:15] VITALS: O2SAT 93
[2022-08-28] MEDS: SODIUM CHLORIDE HYPERTONIC 3% 4ML NEB SOL INH SCH ×6 (03:05→23:38)
[2022-08-28] MEDS: IPRATROPIUM 0.5MG/ALBUTEROL 2.5MG INH SOL UD 3ML (DUONEB) NEB SCH ×6 (03:05→23:38)
[2022-08-28] MEDS: LACTULOSE 20GM/30ML SYRUP UDC PO SCH ×2 (05:34→21:07)
[2022-08-28 06:00] VITALS: BP 137/63; TEMP 97.7; O2SAT 93
[2022-08-28 06:12] LABS: BASO # 0.1 10^3/uL (0.0-0.2); BASO % 0.8 % (0.0-1.0); EOS # 0.2 10^3/uL (0.0-0.5); EOS % 2.1 % (0.0-3.0); HEMATOCRIT 40.4 % (36.0-47.0); HEMOGLOBIN 12.4 g/dl (12.0-15.5); LYMPH # 2.5 10^3/uL (1.5-5.0); LYMPH % 33.5 % (24.0-44.0); MEAN CORPUSCULAR HEMOGLOBIN 24.1 pg (27.0-33.0); MEAN CORPUSCULAR HGB CONC 30.7 g/dl (32.0-36.5); MEAN CORPUSCULAR VOLUME 78.4 fl (80.0-96.0); MONO # 0.6 10^3/uL (0.0-0.8); MONO % 8.1 % (2.0-8.0); NEUTROPHILS # 4.1 10^3/uL (1.5-8.5); NEUTROPHILS % 55.2 % (36.0-66.0); PLATELET COUNT, AUTOMATED 342 10^3/uL (150-450); RED BLOOD COUNT 5.15 10^6/uL (4.00-5.40); WHITE BLOOD COUNT 7.5 10^3/uL (4.0-10.0)
[2022-08-28 06:35] LABS: CALCIUM LEVEL 9.7 MG/DL (8.3-10.6); CREATININE FOR GFR 1.37 MG/DL (0.55-1.30); GLOMERULAR FILTRATION RATE 40.5 (>39); POTASSIUM SERUM 4.1 MMOL/L (3.5-5.1)
[2022-08-28] MEDS: ADVAIR HFA 115/21MCG INHALER INH SCH ×2 (08:16→19:25)
[2022-08-28] MEDS: LEVEMIR (INSULIN DETEMIR) 1 UNITS/0.01ML SC SCH ×2 (08:22→21:08)
[2022-08-28] MEDS: INSULIN LISPRO (NovoLOG) PER UNIT SC SCH ×4 (08:22→21:00)
[2022-08-28] MEDS: FLUTICASONE PROP 0.05% NASAL SPRAY 16 GM (FLONASE) NARES SCH ×2 (08:23→21:07)
[2022-08-28] MEDS: SENNA 8.6 MG TAB (SENOKOT) PO SCH ×2 (08:23→21:07)
[2022-08-28] MEDS: FERROUS GLUCONATE 324 MG TAB PO SCH (08:23)
[2022-08-28] MEDS: MIRALAX *UNIT DOSE* 17GM PACKET PO SCH (08:23)
[2022-08-28] MEDS: OMEPRAZOLE 20MG CAP PO SCH (08:23)
[2022-08-28] MEDS: APIXABAN 5 MG TAB (ELIQUIS) PO SCH ×2 (08:23→21:07)
[2022-08-28] MEDS: DULoxetine 20MG CAP (CYMBALTA) PO SCH ×2 (08:23→21:07)
[2022-08-28] MEDS: cefTRIAXone SOD 1 GM in D5W MINI-BAG PLUS 50 ML IV SCH (08:23)
[2022-08-28] MEDS: DOXYCYCLINE HYCLATE 100MG TABLET PO SCH ×2 (08:23→21:07)
[2022-08-28] MEDS: DOCUSATE SODIUM 100MG CAPSULE PO SCH ×2 (08:23→21:07)
[2022-08-28] MEDS: FLEET ENEMA PR SCH ×2 (08:24→09:00)
[2022-08-28] MEDS ORDERED: LEVEMIR (INSULIN DETEMIR) 1 UNITS/0.01ML SC SCH (09:00)
[2022-08-28 14:00] VITALS: BP 135/62; TEMP 97.2; O2SAT 98
[2022-08-28 20:00] VITALS: BP 119/57; TEMP 97.7; O2SAT 96
[2022-08-28] MEDS: ATORVASTATIN 20 MG TAB PO SCH (21:07)
[2022-08-28] MEDS: LOSARTAN 50MG TABLET PO SCH (21:08)
[2022-08-29 01:04] VITALS: O2SAT 98
[2022-08-29] MEDS: SODIUM CHLORIDE HYPERTONIC 3% 4ML NEB SOL INH SCH ×5 (03:08→20:50)
[2022-08-29] MEDS: IPRATROPIUM 0.5MG/ALBUTEROL 2.5MG INH SOL UD 3ML (DUONEB) NEB SCH ×5 (03:08→20:50)
[2022-08-29 06:00] VITALS: BP 138/63; TEMP 97.5; O2SAT 97
[2022-08-29 06:14] LABS: BASO # 0.1 10^3/uL (0.0-0.2); BASO % 0.7 % (0.0-1.0); EOS # 0.2 10^3/uL (0.0-0.5); HEMATOCRIT 40.6 % (36.0-47.0); HEMOGLOBIN 12.6 g/dl (12.0-15.5); LYMPH # 2.1 10^3/uL (1.5-5.0); LYMPH % 31.2 % (24.0-44.0); MEAN CORPUSCULAR HEMOGLOBIN 24.6 pg (27.0-33.0); MEAN CORPUSCULAR VOLUME 79.1 fl (80.0-96.0); MONO # 0.4 10^3/uL (0.0-0.8); MONO % 6.4 % (2.0-8.0); NEUTROPHILS % 58.4 % (36.0-66.0); PLATELET COUNT, AUTOMATED 314 10^3/uL (150-450); RED BLOOD COUNT 5.13 10^6/uL (4.00-5.40); WHITE BLOOD COUNT 6.8 10^3/uL (4.0-10.0)
[2022-08-29 06:41] LABS: GLOMERULAR FILTRATION RATE 58.2 (>39); POTASSIUM SERUM 4.2 MMOL/L (3.5-5.1)
[2022-08-29] MEDS: ADVAIR HFA 115/21MCG INHALER INH SCH ×2 (07:48→20:50)
[2022-08-29] MEDS: FLEET ENEMA PR SCH (09:00)
[2022-08-29] MEDS: MIRALAX *UNIT DOSE* 17GM PACKET PO SCH (09:02)
[2022-08-29] MEDS: cefTRIAXone SOD 1 GM in D5W MINI-BAG PLUS 50 ML IV SCH (09:02)
[2022-08-29] MEDS: LEVEMIR (INSULIN DETEMIR) 1 UNITS/0.01ML SC SCH ×2 (09:03→20:34)
[2022-08-29] MEDS: FERROUS GLUCONATE 324 MG TAB PO SCH (09:03)
[2022-08-29] MEDS: OMEPRAZOLE 20MG CAP PO SCH (09:03)
[2022-08-29] MEDS: DOXYCYCLINE HYCLATE 100MG TABLET PO SCH ×2 (09:03→20:33)
[2022-08-29] MEDS: DOCUSATE SODIUM 100MG CAPSULE PO SCH ×2 (09:03→20:33)
[2022-08-29] MEDS: FLUTICASONE PROP 0.05% NASAL SPRAY 16 GM (FLONASE) NARES SCH ×2 (09:03→20:33)
[2022-08-29] MEDS: APIXABAN 5 MG TAB (ELIQUIS) PO SCH ×2 (09:03→20:33)
[2022-08-29] MEDS: INSULIN LISPRO (NovoLOG) PER UNIT SC SCH ×4 (09:03→20:40)
[2022-08-29] MEDS: SENNA 8.6 MG TAB (SENOKOT) PO SCH ×2 (09:03→20:33)
[2022-08-29] MEDS: LACTULOSE 20GM/30ML SYRUP UDC PO SCH ×3 (09:03→20:33)
[2022-08-29] MEDS: DULoxetine 20MG CAP (CYMBALTA) PO SCH ×2 (09:04→20:33)
[2022-08-29 14:00] VITALS: BP 133/66; TEMP 98.1; O2SAT 97
[2022-08-29 19:56] VITALS: BP 145/91; TEMP 97.9; O2SAT 95
[2022-08-29 20:33] VITALS: BP 145/91
[2022-08-29] MEDS: ATORVASTATIN 20 MG TAB PO SCH (20:33)
[2022-08-29] MEDS: LOSARTAN 50MG TABLET PO SCH (20:33)
[2022-08-30] MEDS: IPRATROPIUM 0.5MG/ALBUTEROL 2.5MG INH SOL UD 3ML (DUONEB) NEB SCH ×3 (00:02→07:32)
[2022-08-30] MEDS: SODIUM CHLORIDE HYPERTONIC 3% 4ML NEB SOL INH SCH ×3 (00:03→07:32)
[2022-08-30] MEDS: LACTULOSE 20GM/30ML SYRUP UDC PO SCH ×2 (04:52→08:16)
[2022-08-30 06:04] LABS: BASO % 0.5 % (0.0-1.0); EOS # 0.2 10^3/uL (0.0-0.5); EOS % 3.1 % (0.0-3.0); HEMATOCRIT 38.1 % (36.0-47.0); HEMOGLOBIN 11.8 g/dl (12.0-15.5); LYMPH # 2.4 10^3/uL (1.5-5.0); LYMPH % 33.1 % (24.0-44.0); MEAN CORPUSCULAR HEMOGLOBIN 24.5 pg (27.0-33.0); MONO # 0.5 10^3/uL (0.0-0.8); MONO % 6.3 % (2.0-8.0); NEUTROPHILS # 4.1 10^3/uL (1.5-8.5); NEUTROPHILS % 56.7 % (36.0-66.0); PLATELET COUNT, AUTOMATED 301 10^3/uL (150-450); RED BLOOD COUNT 4.82 10^6/uL (4.00-5.40); WHITE BLOOD COUNT 7.3 10^3/uL (4.0-10.0)
[2022-08-30 06:21] VITALS: BP 146/78; TEMP 97.9; O2SAT 97
[2022-08-30 06:23] LABS: CREATININE FOR GFR 1.05 MG/DL (0.55-1.30); POTASSIUM SERUM 4.4 MMOL/L (3.5-5.1)
[2022-08-30] MEDS ORDERED: INSULIN LISPRO (NovoLOG) PER UNIT SC SCH ×2 (07:30)
[2022-08-30] MEDS: ADVAIR HFA 115/21MCG INHALER INH SCH (07:32)
[2022-08-30] MEDS ORDERED: SENN-188 PO (07:54)
[2022-08-30] MEDS ORDERED: FLEEENE12 PR (07:54)
[2022-08-30] MEDS ORDERED: INSUHUMDS SC (07:54)
[2022-08-30] MEDS ORDERED: FERR32TA PO (07:54)
[2022-08-30] MEDS ORDERED: CYMB1CAP4 PO (07:54)
[2022-08-30] MEDS ORDERED: IPRA0.00 NEB (07:54)
[2022-08-30] MEDS ORDERED: HYDR-3715 PO (07:54)
[2022-08-30] MEDS ORDERED: INSUDET SC (07:54)
[2022-08-30] MEDS ORDERED: LACT20EL PO (07:54)
[2022-08-30] MEDS ORDERED: MIRA1POW3 PO (07:54)
[2022-08-30] MEDS ORDERED: TIZA10TA PO (07:54)
[2022-08-30] MEDS: DOXYCYCLINE HYCLATE 100MG TABLET PO SCH (08:16)
[2022-08-30] MEDS: APIXABAN 5 MG TAB (ELIQUIS) PO SCH (08:16)
[2022-08-30] MEDS: SENNA 8.6 MG TAB (SENOKOT) PO SCH (08:16)
[2022-08-30] MEDS: FERROUS GLUCONATE 324 MG TAB PO SCH (08:16)
[2022-08-30] MEDS: MIRALAX *UNIT DOSE* 17GM PACKET PO SCH (08:16)
[2022-08-30] MEDS: DULoxetine 20MG CAP (CYMBALTA) PO SCH (08:16)
[2022-08-30] MEDS: OMEPRAZOLE 20MG CAP PO SCH (08:16)
[2022-08-30] MEDS: FLEET ENEMA PR SCH (08:17)
[2022-08-30] MEDS: FLUTICASONE PROP 0.05% NASAL SPRAY 16 GM (FLONASE) NARES SCH (08:17)
[2022-08-30] MEDS: LEVEMIR (INSULIN DETEMIR) 1 UNITS/0.01ML SC SCH (08:17)
== END 2022-08-30 11:22 | DRG 194 ==
LOC: EDBD 02:54 → M ED 02:54 → M ED INP 07:35 → M MSPAV 08:38
PROVIDERS: ADMIT Internal Medicine Nephrology; ATTEND Internal Medicine Nephrology
DX: J18.9 Pneumonia, unspecified organism (principal); I50.32 Chronic diastolic (congestive) heart failure; I13.0 Hypertensive heart and chronic kidney disease with heart failure and stage 1 through stage 4 chronic kidney disease, or unspecified chronic kidney disease; Z68.41 Body mass index [BMI] 40.0-44.9, adult; J44.0 Chronic obstructive pulmonary disease with (acute) lower respiratory infection; E11.22 Type 2 diabetes mellitus with diabetic chronic kidney disease; G25.81 Restless legs syndrome; F32.9 Major depressive disorder, single episode, unspecified; F41.1 Generalized anxiety disorder; J30.9 Allergic rhinitis, unspecified; E66.01 Morbid (severe) obesity due to excess calories; G47.33 Obstructive sleep apnea (adult) (pediatric); M16.0 Bilateral primary osteoarthritis of hip; M17.0 Bilateral primary osteoarthritis of knee; N18.30 Chronic kidney disease, stage 3 unspecified; K21.9 Gastro-esophageal reflux disease without esophagitis; E55.9 Vitamin D deficiency, unspecified; K57.90 Diverticulosis of intestine, part unspecified, without perforation or abscess without bleeding; E11.65 Type 2 diabetes mellitus with hyperglycemia; K59.09 Other constipation; K64.9 Unspecified hemorrhoids; R00.1 Bradycardia, unspecified; E61.1 Iron deficiency; N31.9 Neuromuscular dysfunction of bladder, unspecified; R53.1 Weakness; R26.9 Unspecified abnormalities of gait and mobility; E11.40 Type 2 diabetes mellitus with diabetic neuropathy, unspecified; R32 Unspecified urinary incontinence; E78.5 Hyperlipidemia, unspecified; D64.9 Anemia, unspecified; R29.6 Repeated falls; Z86.711 Personal history of pulmonary embolism; Z86.718 Personal history of other venous thrombosis and embolism; Z79.01 Long term (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 anticoagulants; Z79.4 Long term (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; Z79.899 Other long term (current) drug therapy; Z88.6 Allergy status to analgesic agent; Z88.1 Allergy status to other antibiotic agents; Z88.5 Allergy status to narcotic agent; Z91.040 Latex allergy status; Z91.048 Other nonmedicinal substance allergy status; Z87.891 Personal history of nicotine dependence

== ENCOUNTER → 2022-08-31 | Outpatient (REF) ==
[~2022-08-31] MED LIST changes: +ADVA115A INH; +FERR32TA PO; +FLEEENE12 PR; +FLUC100T3 PO; +INSUDET SC; +IPRA0.00 NEB; +LACT20EL PO; +MIRA1POW3 PO; +MUCI600T31 PO; +NYST-13 EXT; +SENN-188 PO; +TIZA10TA PO
[2022-08-31 09:27] LABS: HEMATOCRIT 37.4 % (36.0-47.0); HEMOGLOBIN 11.6 g/dl (12.0-15.5); MEAN CORPUSCULAR HEMOGLOBIN 24.7 pg (27.0-33.0); MEAN CORPUSCULAR VOLUME 79.6 fl (80.0-96.0); PLATELET COUNT, AUTOMATED 254 10^3/uL (150-450); WHITE BLOOD COUNT 8.6 10^3/uL (4.0-10.0)
[2022-08-31 09:53] LABS: BLOOD UREA NITROGEN 33 MG/DL (9-23); CALCIUM LEVEL 8.6 MG/DL (8.3-10.6); CARBON DIOXIDE LEVEL 24 MMOL/L (20-31); CHLORIDE LEVEL 107 MMOL/L (98-107); CREATININE FOR GFR 0.97 MG/DL (0.55-1.30); GLOMERULAR FILTRATION RATE > 60.0 (>39); GLUCOSE, FASTING 187 MG/DL (74-106); POTASSIUM SERUM 4.1 MMOL/L (3.5-5.1); SODIUM LEVEL 140 MMOL/L (136-145)
== END ==
PROVIDERS: ATTEND Physician Assistant
DX: E11.9 Type 2 diabetes mellitus without complications (principal)

== ENCOUNTER → 2022-09-07 | Outpatient (REF) ==
[2022-09-07 08:14] LABS: HEMATOCRIT 35.5 % (36.0-47.0); HEMOGLOBIN 11.1 g/dl (12.0-15.5); MEAN CORPUSCULAR HEMOGLOBIN 24.6 pg (27.0-33.0); MEAN CORPUSCULAR HGB CONC 31.3 g/dl (32.0-36.5); MEAN CORPUSCULAR VOLUME 78.5 fl (80.0-96.0); PLATELET COUNT, AUTOMATED 242 10^3/uL (150-450); RED BLOOD COUNT 4.52 10^6/uL (4.00-5.40)
[2022-09-07 08:49] LABS: BLOOD UREA NITROGEN 15 MG/DL (9-23); CALCIUM LEVEL 8.5 MG/DL (8.3-10.6); CARBON DIOXIDE LEVEL 28 MMOL/L (20-31); CHLORIDE LEVEL 108 MMOL/L (98-107); CREATININE FOR GFR 0.93 MG/DL (0.55-1.30); GLOMERULAR FILTRATION RATE > 60.0 (>39); GLUCOSE, FASTING 187 MG/DL (74-106); SODIUM LEVEL 141 MMOL/L (136-145)
== END ==
PROVIDERS: ATTEND Physician Assistant
DX: E11.9 Type 2 diabetes mellitus without complications (principal)

== ENCOUNTER → 2022-09-16 | Outpatient (CLI) | payer MEDICARE, MEDICAID | LOC: M WHC 08:59 | PROVIDERS: ATTEND Physician Assistant Medical | DX: Z12.31 Encounter for screening mammogram for malignant neoplasm of breast (principal); M85.851 Other specified disorders of bone density and structure, right thigh; M85.852 Other specified disorders of bone density and structure, left thigh ==

== ENCOUNTER → 2022-09-19 | Outpatient (REF) | payer MEDICARE, MEDICAID ==
[2022-09-19 09:23] LABS: CHOLESTEROL RISK RATIO 3.06 (<5); HDL CHOLESTEROL 40.4 MG/DL (>40); LDL CHOLESTEROL 51.4 MG/DL (<100); NON-HDL-C 83.6 MG/DL
[2022-09-19 09:59] LABS: HEMOGLOBIN A1c 10.2 % (4.0-6.0)
== END ==
PROVIDERS: ATTEND Physician Assistant Medical
DX: E78.2 Mixed hyperlipidemia (principal); E11.622 Type 2 diabetes mellitus with other skin ulcer

== ENCOUNTER → 2022-09-28 | Outpatient (REF) ==
[2022-09-28 10:17] LABS: HEMATOCRIT 41.4 % (36.0-47.0); HEMOGLOBIN 12.7 g/dl (12.0-15.5); MEAN CORPUSCULAR HEMOGLOBIN 25.7 pg (27.0-33.0); MEAN CORPUSCULAR HGB CONC 30.7 g/dl (32.0-36.5); MEAN CORPUSCULAR VOLUME 83.6 fl (80.0-96.0); PLATELET COUNT, AUTOMATED 236 10^3/uL (150-450); RED BLOOD COUNT 4.95 10^6/uL (4.00-5.40)
[2022-09-28 10:33] LABS: HEMOGLOBIN A1c 9.6 % (4.0-6.0)
[2022-09-28 10:41] LABS: CALCIUM LEVEL 9.1 MG/DL (8.3-10.6); GLOMERULAR FILTRATION RATE 58.2 (>39); POTASSIUM SERUM 4.6 MMOL/L (3.5-5.1)
== END ==
PROVIDERS: ATTEND Internal Medicine
DX: E11.9 Type 2 diabetes mellitus without complications (principal)

== ENCOUNTER → 2022-10-18 | Outpatient (CLI) | payer MEDICARE, MEDICAID ==
[~2022-10-18] MED LIST changes: +DICL100G10 TOP; -DICL1GEL3 TOP
[2022-10-18 17:21] LABS: BASO # 0.1 10^3/uL (0.0-0.2); BASO % 0.8 % (0.0-1.0); EOS # 0.2 10^3/uL (0.0-0.5); HEMATOCRIT 40.6 % (36.0-47.0); HEMOGLOBIN 12.8 g/dl (12.0-15.5); LYMPH # 2.3 10^3/uL (1.5-5.0); LYMPH % 29.8 % (24.0-44.0); MEAN CORPUSCULAR HEMOGLOBIN 26.7 pg (27.0-33.0); MEAN CORPUSCULAR HGB CONC 31.5 g/dl (32.0-36.5); MEAN CORPUSCULAR VOLUME 84.6 fl (80.0-96.0); MONO # 0.5 10^3/uL (0.0-0.8); MONO % 6.7 % (2.0-8.0); NEUTROPHILS # 4.6 10^3/uL (1.5-8.5); NEUTROPHILS % 60.3 % (36.0-66.0); PLATELET COUNT, AUTOMATED 259 10^3/uL (150-450); WHITE BLOOD COUNT 7.6 10^3/uL (4.0-10.0)
[2022-10-18 17:33] LABS: ALBUMIN 3.6 G/DL (3.2-5.2); BILIRUBIN,TOTAL 0.3 MG/DL (0.3-1.2); CALCIUM LEVEL 8.9 MG/DL (8.3-10.6); CHOLESTEROL RISK RATIO 2.63 (<5); CREATININE FOR GFR 1.06 MG/DL (0.55-1.30); GLOMERULAR FILTRATION RATE 54.4 (>39); HDL CHOLESTEROL 58.1 MG/DL (>40); LDL CHOLESTEROL 71.9 MG/DL (<100); NON-HDL-C 94.9 MG/DL; POTASSIUM SERUM 4.3 MMOL/L (3.5-5.1); TOTAL PROTEIN 6.5 G/DL (5.7-8.2)
[2022-10-18 17:57] LABS: HEMOGLOBIN A1c 8.3 % (4.0-6.0)
== END ==
LOC: M PLAIMG 15:47
PROVIDERS: ATTEND Physician Assistant Medical
DX: I50.9 Heart failure, unspecified (principal); J18.9 Pneumonia, unspecified organism; I11.0 Hypertensive heart disease with heart failure; E11.622 Type 2 diabetes mellitus with other skin ulcer; E78.2 Mixed hyperlipidemia

== ENCOUNTER 2022-10-25 08:45 | Emergency (ER) | payer MEDICARE, MEDICAID ==
[~2022-10-25] VITALS: Ht 165.1 cm; Wt 127.3 kg
[2022-10-25] MEDS ORDERED: NORCO, ANEXSIA 5/325MG TABLET (HYDROcodone/ACETAMINOPHEN) PO ONE (09:40)
[2022-10-25 10:09] LABS: BASO # 0.1 10^3/uL (0.0-0.2); BASO % 0.8 % (0.0-1.0); EOS # 0.1 10^3/uL (0.0-0.5); HEMATOCRIT 39.5 % (36.0-47.0); HEMOGLOBIN 12.6 g/dl (12.0-15.5); LYMPH # 1.9 10^3/uL (1.5-5.0); LYMPH % 31.7 % (24.0-44.0); MEAN CORPUSCULAR HEMOGLOBIN 26.8 pg (27.0-33.0); MEAN CORPUSCULAR HGB CONC 31.9 g/dl (32.0-36.5); MEAN CORPUSCULAR VOLUME 83.9 fl (80.0-96.0); MONO # 0.5 10^3/uL (0.0-0.8); MONO % 8.6 % (2.0-8.0); NEUTROPHILS # 3.4 10^3/uL (1.5-8.5); NEUTROPHILS % 56.6 % (36.0-66.0); PLATELET COUNT, AUTOMATED 255 10^3/uL (150-450); RED BLOOD COUNT 4.71 10^6/uL (4.00-5.40)
[2022-10-25 11:03] LABS: CK-MB VALUE MASS 2.6 NG/ML (<3.6)
[2022-10-25 11:05] LABS: ALBUMIN 3.5 G/DL (3.2-5.2); BILIRUBIN,DIRECT 0.1 MG/DL (<0.4); BILIRUBIN,TOTAL 0.4 MG/DL (0.3-1.2); CALCIUM LEVEL 9.2 MG/DL (8.3-10.6); CREATININE FOR GFR 1.07 MG/DL (0.55-1.30); GLOMERULAR FILTRATION RATE 53.8 (>39); POTASSIUM SERUM 3.9 MMOL/L (3.5-5.1); TOTAL PROTEIN 6.6 G/DL (5.7-8.2)
[2022-10-25 11:08] LABS: MB/CK RELATIVE INDEX 1.29 (< OR =4)
[2022-10-25 12:05] VITALS: BP 140/72; TEMP 97; O2SAT 95
[2022-10-25] MEDS ORDERED: MED REC IN PROGRESS XX SCH (12:15)
[2022-10-25] MEDS ORDERED: MED REC CURRENTLY UNOBTAINABLE XX SCH (12:45)
[2022-10-25] MEDS ORDERED: HOME MED LIST COMPLETE! XX SCH (12:45)
== END 2022-10-25 14:04 | disposition home or self-care (01) ==
LOC: EDBD 08:45 → M ED 08:45
DX: S70.02XA Contusion of left hip, initial encounter (principal); W06.XXXA Fall from bed, initial encounter; Y92.129 Unspecified place in nursing home as the place of occurrence of the external cause; I50.9 Heart failure, unspecified; E10.9 Type 1 diabetes mellitus without complications; G47.33 Obstructive sleep apnea (adult) (pediatric); N18.30 Chronic kidney disease, stage 3 unspecified; J44.9 Chronic obstructive pulmonary disease, unspecified; Z88.5 Allergy status to narcotic agent; Z91.040 Latex allergy status; Z88.8 Allergy status to other drugs, medicaments and biological substances; Z79.4 Long term (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; Z79.899 Other long term (current) drug therapy

== ENCOUNTER → 2022-11-02 | Outpatient (REF) | payer MEDICARE, MEDICAID ==
[2022-11-02 08:48] LABS: CALCIUM LEVEL 9.2 MG/DL (8.3-10.6); CREATININE FOR GFR 1.18 MG/DL (0.55-1.30); GLOMERULAR FILTRATION RATE 48.1 (>39); POTASSIUM SERUM 4.6 MMOL/L (3.5-5.1)
== END ==
PROVIDERS: ATTEND Physician Assistant Medical
DX: I50.32 Chronic diastolic (congestive) heart failure (principal)

== ENCOUNTER → 2022-11-15 | Outpatient (CLI) | payer MEDICARE, MEDICAID ==
[~2022-11-15] MED LIST changes: +MECL-209 PO; -MECL1TAB31 PO; -PREG150C PO; +PREG150C2 PO; -PREG200C PO; +PREG200C2 PO; -PREG300C PO; +PREG300C2 PO
[2022-11-15 13:56] LABS: HEMOGLOBIN A1c 8.2 % (4.0-6.0)
[2022-11-15 14:07] LABS: ALBUMIN 3.9 G/DL (3.2-5.2); BILIRUBIN,TOTAL 0.4 MG/DL (0.3-1.2); CALCIUM LEVEL 9.6 MG/DL (8.3-10.6); CREATININE FOR GFR 1.19 MG/DL (0.55-1.30); GLOMERULAR FILTRATION RATE 47.6 (>39); POTASSIUM SERUM 4.9 MMOL/L (3.5-5.1); TOTAL PROTEIN 7.2 G/DL (5.7-8.2)
== END ==
LOC: M PLALAB 10:17
PROVIDERS: ATTEND Physician Assistant Medical
DX: J44.9 Chronic obstructive pulmonary disease, unspecified (principal); I50.32 Chronic diastolic (congestive) heart failure; E11.622 Type 2 diabetes mellitus with other skin ulcer; I11.0 Hypertensive heart disease with heart failure

== ENCOUNTER → 2022-12-21 | Outpatient (REF) | payer MEDICARE, MEDICAID | LOC: M SFHCPLAZ 13:02 | PROVIDERS: ATTEND Physician Assistant Medical | DX: J06.9 Acute upper respiratory infection, unspecified (principal) ==

== ENCOUNTER → 2022-12-30 | Outpatient (REF) | payer MEDICARE, MEDICAID ==
[2022-12-31 10:24] LABS: CHOLESTEROL RISK RATIO 2.113 (<5)
== END ==
PROVIDERS: ATTEND Physician Assistant Medical
DX: E78.2 Mixed hyperlipidemia (principal); E11.622 Type 2 diabetes mellitus with other skin ulcer

== ENCOUNTER → 2023-03-01 | Outpatient (CLI) | payer MEDICARE, MEDICAID ==
[~2023-03-01] MED LIST changes: -FLUT50SP17 NARES; +FLUTISP NARES
[2023-03-01 17:37] LABS: BASO # 0.1 10^3/uL (0.0-0.2); BASO % 0.7 % (0.0-1.0); EOS # 0.2 10^3/uL (0.0-0.5); HEMATOCRIT 41.7 % (36.0-47.0); HEMOGLOBIN 13.6 g/dl (12.0-15.5); LYMPH # 3.1 10^3/uL (1.5-5.0); LYMPH % 38.9 % (24.0-44.0); MEAN CORPUSCULAR HEMOGLOBIN 28.9 pg (27.0-33.0); MEAN CORPUSCULAR HGB CONC 32.6 g/dl (32.0-36.5); MEAN CORPUSCULAR VOLUME 88.7 fl (80.0-96.0); MONO # 0.6 10^3/uL (0.0-0.8); NEUTROPHILS # 4.1 10^3/uL (1.5-8.5); NEUTROPHILS % 51.3 % (36.0-66.0); PLATELET COUNT, AUTOMATED 254 10^3/uL (150-450); WHITE BLOOD COUNT 8.1 10^3/uL (4.0-10.0)
== END ==
LOC: M PLALAB 16:01
PROVIDERS: ATTEND Physician Assistant Medical
DX: E11.622 Type 2 diabetes mellitus with other skin ulcer (principal); I10 Essential (primary) hypertension

== ENCOUNTER → 2023-03-22 | Outpatient (REF) | payer MEDICARE, MEDICAID ==
[2023-03-22 10:20] LABS: BASO # 0.1 10^3/uL (0.0-0.2); BASO % 0.7 % (0.0-1.0); EOS # 0.2 10^3/uL (0.0-0.5); EOS % 2.2 % (0.0-3.0); HEMATOCRIT 41.4 % (36.0-47.0); HEMOGLOBIN 13.4 g/dl (12.0-15.5); LYMPH # 2.3 10^3/uL (1.5-5.0); LYMPH % 32.8 % (24.0-44.0); MEAN CORPUSCULAR HEMOGLOBIN 28.9 pg (27.0-33.0); MEAN CORPUSCULAR HGB CONC 32.4 g/dl (32.0-36.5); MEAN CORPUSCULAR VOLUME 89.2 fl (80.0-96.0); MONO # 0.5 10^3/uL (0.0-0.8); MONO % 7.9 % (2.0-8.0); NEUTROPHILS # 3.9 10^3/uL (1.5-8.5); NEUTROPHILS % 56.3 % (36.0-66.0); PLATELET COUNT, AUTOMATED 241 10^3/uL (150-450); RED BLOOD COUNT 4.64 10^6/uL (4.00-5.40); WHITE BLOOD COUNT 6.9 10^3/uL (4.0-10.0)
[2023-03-22 10:43] LABS: HEMOGLOBIN A1c 7.8 % (4.0-6.0)
== END ==
PROVIDERS: ATTEND Physician Assistant Medical
DX: E11.622 Type 2 diabetes mellitus with other skin ulcer (principal); I10 Essential (primary) hypertension

== ENCOUNTER → 2023-05-02 | Outpatient (CLI) | payer MEDICARE, MEDICAID ==
[~2023-05-02] MED LIST changes: -MIRA1POW3 PO; +MIRA33506 PO
[2023-05-02 18:28] LABS: ALBUMIN 3.8 G/DL (3.2-5.2); BILIRUBIN,TOTAL 0.6 MG/DL (0.3-1.2); CALCIUM LEVEL 9.7 MG/DL (8.3-10.6); CREATININE FOR GFR 0.98 MG/DL (0.55-1.30); GLOMERULAR FILTRATION RATE 59.6 (>39)
== END ==
LOC: M PLALAB 14:00
PROVIDERS: ATTEND Physician Assistant Medical
DX: I10 Essential (primary) hypertension (principal)

== ENCOUNTER → 2023-05-15 | Outpatient (REF) ==
[2023-05-15 10:49] LABS: HEMATOCRIT 42.4 % (36.0-47.0); MEAN CORPUSCULAR HEMOGLOBIN 29.2 pg (27.0-33.0); MEAN CORPUSCULAR VOLUME 88.5 fl (80.0-96.0); PLATELET COUNT, AUTOMATED 200 10^3/uL (150-450); RED BLOOD COUNT 4.79 10^6/uL (4.00-5.40); WHITE BLOOD COUNT 5.2 10^3/uL (4.0-10.0)
[2023-05-15 11:14] LABS: THYROXINE (T4) 8.9 UG/DL (4.5-10.9); VITAMIN B12 LEVEL 433 PG/ML (211-911)
[2023-05-15 11:15] LABS: TOTAL 25(OH) VITAMIN D 28.6 NG/ML (20.0-100.0)
[2023-05-15 11:16] LABS: THYROID STIMULATING HORMONE 1.142 uIU/ML (0.55-4.78)
[2023-05-15 11:17] LABS: ALBUMIN 3.4 G/DL (3.2-5.2); ALKALINE PHOSPHATASE 132 U/L (46-116); ALT/SGPT 53 U/L (7.0-40); AST/SGOT 28 U/L (<34); BILIRUBIN,DIRECT 0.2 MG/DL (<0.4); BILIRUBIN,TOTAL 0.5 MG/DL (0.3-1.2); BLOOD UREA NITROGEN 20 MG/DL (9-23); CALCIUM LEVEL 8.6 MG/DL (8.3-10.6); CARBON DIOXIDE LEVEL 27 MMOL/L (20-31); CHLORIDE LEVEL 107 MMOL/L (98-107); CREATININE FOR GFR 0.84 MG/DL (0.55-1.30); GLOMERULAR FILTRATION RATE > 60.0 (>39); GLUCOSE, FASTING 129 MG/DL (74-106); MAGNESIUM LEVEL 1.7 MG/DL (1.8-2.4); POTASSIUM SERUM 4.3 MMOL/L (3.5-5.1); SODIUM LEVEL 142 MMOL/L (136-145); TOTAL PROTEIN 6.4 G/DL (5.7-8.2)
== END ==
PROVIDERS: ATTEND Physician Assistant
DX: E11.9 Type 2 diabetes mellitus without complications (principal)

== ENCOUNTER → 2023-05-22 | Outpatient (REF) | PROVIDERS: ATTEND Physician Assistant | DX: E11.9 Type 2 diabetes mellitus without complications (principal); Z53.8 Procedure and treatment not carried out for other reasons ==

== ENCOUNTER → 2023-05-31 | Outpatient (REF) ==
[2023-05-31 12:29] LABS: BLOOD UREA NITROGEN 22 MG/DL (9-23); CALCIUM LEVEL 9.1 MG/DL (8.3-10.6); CARBON DIOXIDE LEVEL 25 MMOL/L (20-31); CHLORIDE LEVEL 107 MMOL/L (98-107); CREATININE FOR GFR 0.95 MG/DL (0.55-1.30); GLOMERULAR FILTRATION RATE > 60.0 (>39); GLUCOSE, FASTING 193 MG/DL (74-106); POTASSIUM SERUM 4.5 MMOL/L (3.5-5.1); SODIUM LEVEL 141 MMOL/L (136-145)
== END ==
PROVIDERS: ATTEND Physician Assistant
DX: E78.5 Hyperlipidemia, unspecified (principal)

== ENCOUNTER → 2023-05-31 | Outpatient (REF) | PROVIDERS: ATTEND Physician Assistant | DX: D64.9 Anemia, unspecified (principal); Z53.8 Procedure and treatment not carried out for other reasons ==

== ENCOUNTER → 2023-05-31 | Outpatient (REF) | PROVIDERS: ATTEND Internal Medicine | DX: D64.9 Anemia, unspecified (principal); Z53.8 Procedure and treatment not carried out for other reasons ==

== ENCOUNTER → 2023-05-31 | Outpatient (REF) | PROVIDERS: ATTEND Internal Medicine | DX: D64.9 Anemia, unspecified (principal); Z53.8 Procedure and treatment not carried out for other reasons ==

== ENCOUNTER → 2023-06-14 | Outpatient (REF) | payer MEDICARE, MEDICAID ==
[2023-06-14 14:20] LABS: HEMATOCRIT 43.1 % (36.0-47.0); HEMOGLOBIN 14.1 g/dl (12.0-15.5); MEAN CORPUSCULAR HEMOGLOBIN 29.2 pg (27.0-33.0); MEAN CORPUSCULAR HGB CONC 32.7 g/dl (32.0-36.5); MEAN CORPUSCULAR VOLUME 89.2 fl (80.0-96.0); PLATELET COUNT, AUTOMATED 226 10^3/uL (150-450); RED BLOOD COUNT 4.83 10^6/uL (4.00-5.40); WHITE BLOOD COUNT 9.6 10^3/uL (4.0-10.0)
[2023-06-14 14:50] LABS: ALBUMIN 3.3 G/DL (3.2-5.2); BILIRUBIN,DIRECT 0.2 MG/DL (<0.4); BILIRUBIN,TOTAL 0.5 MG/DL (0.3-1.2); TOTAL PROTEIN 6.5 G/DL (5.7-8.2)
== END ==
PROVIDERS: ATTEND Physician Assistant
DX: L12.8 Other pemphigoid (principal)

== ENCOUNTER 2023-08-09 15:13 | Outpatient (RCR) | payer MEDICARE, MEDICAID ==
[~2023-08-09 15:13] MED LIST changes: +DOXY-323 PO; -DOXY-443 PO; -NYST-13 EXT; +NYST-13 TOP
[2023-08-10] MEDS ORDERED: INSU100V6 SQ (14:38)
[2023-08-10] MEDS ORDERED: FERR324T21 PO (14:38)
[2023-08-10] MEDS ORDERED: FURO40TA2 PO (14:38)
[2023-08-10] MEDS ORDERED: BISA5TAB15 PO (14:38)
[2023-08-10] MEDS ORDERED: ATOR1TAB21 PO (14:38)
[2023-08-10] MEDS ORDERED: SENN-186 PO (15:08)
[2023-08-10] MEDS ORDERED: POTA-151 PO (15:08)
[2023-08-10] MEDS ORDERED: HYDR-4514 PO (15:08)
[2023-08-10] MEDS ORDERED: ASPE4PAD2 TOP (15:08)
[2023-08-10] MEDS ORDERED: REFR0.1D OU (15:08)
[2023-08-10] MEDS ORDERED: LANTINJ4 SC (15:08)
[2023-08-10] MEDS ORDERED: TRUL0.5I SC (15:08)
[2023-08-10] MEDS ORDERED: FAMO40TA3 PO (15:08)
[2023-08-10] MEDS ORDERED: APAP325T4 PO (15:08)
[2023-08-10] MEDS ORDERED: NYST1POW9 TOP (15:08)
== END 2023-08-11 ==
LOC: M PT 15:13
PROVIDERS: ATTEND Physician Assistant Medical
DX: M51.36 Other intervertebral disc degeneration, lumbar region (principal)

== ENCOUNTER 2023-08-10 12:08 | Observation (INO) | payer MEDICARE, MEDICAID ==
[~2023-08-10] VITALS: Ht 165.1 cm; Wt 131.6 kg
[2023-08-10 12:48] LABS: BASO # 0.1 10^3/uL (0.0-0.2); EOS # 0.2 10^3/uL (0.0-0.5); EOS % 3.3 % (0.0-3.0); HEMATOCRIT 40.3 % (36.0-47.0); LYMPH # 2.2 10^3/uL (1.5-5.0); LYMPH % 32.3 % (24.0-44.0); MEAN CORPUSCULAR HEMOGLOBIN 29.7 pg (27.0-33.0); MEAN CORPUSCULAR HGB CONC 32.3 g/dl (32.0-36.5); MONO # 0.5 10^3/uL (0.0-0.8); MONO % 7.1 % (2.0-8.0); NEUTROPHILS # 3.8 10^3/uL (1.5-8.5); NEUTROPHILS % 56.2 % (36.0-66.0); PLATELET COUNT, AUTOMATED 236 10^3/uL (150-450); RED BLOOD COUNT 4.38 10^6/uL (4.00-5.40); WHITE BLOOD COUNT 6.7 10^3/uL (4.0-10.0)
[2023-08-10 13:22] LABS: ALBUMIN 3.7 G/DL (3.2-5.2); BLOOD UREA NITROGEN 30 MG/DL (9-23); CALCIUM LEVEL 9.2 MG/DL (8.3-10.6); CARBON DIOXIDE LEVEL 27 MMOL/L (20-31); CHLORIDE LEVEL 105 MMOL/L (98-107); CK-MB VALUE MASS 2.4 NG/ML (<3.6); CPK CREATINE PHOSPHOKINASE 172 U/L (34-145); CREATININE FOR GFR 0.97 MG/DL (0.55-1.30); GLOMERULAR FILTRATION RATE > 60.0 (>39); GLUCOSE, FASTING 128 MG/DL (74-106); MB/CK RELATIVE INDEX 1.39 (< OR =4); POTASSIUM SERUM 5.2 MMOL/L (3.5-5.1); SODIUM LEVEL 140 MMOL/L (136-145)
[2023-08-10 13:26] LABS: ALKALINE PHOSPHATASE 144 U/L (46-116); ALT/SGPT 29 U/L (7.0-40); AST/SGOT 23 U/L (<34); BILIRUBIN,DIRECT 0.2 MG/DL (<0.4); BILIRUBIN,TOTAL 0.7 MG/DL (0.3-1.2); MAGNESIUM LEVEL 1.9 MG/DL (1.8-2.4)
[2023-08-10 13:34] LABS: INR 1.06; PARTIAL THROMBOPLASTIN TIME 27.8 SECONDS (24.8-34.2); PROTHROMBIN TIME 13.5 SECONDS (12.5-14.5)
[2023-08-10 14:09] LABS: CK-MB VALUE MASS 1.9 NG/ML (<3.6)
[2023-08-10 14:11] LABS: MB/CK RELATIVE INDEX 1.33 (< OR =4)
[2023-08-10] MEDS ORDERED: FURO40TA2 PO (14:38)
[2023-08-10] MEDS ORDERED: FERR324T21 PO (14:38)
[2023-08-10] MEDS ORDERED: BISA5TAB15 PO (14:38)
[2023-08-10] MEDS ORDERED: ATOR1TAB21 PO (14:38)
[2023-08-10] MEDS ORDERED: INSU100V6 SQ (14:38)
[2023-08-10] MEDS ORDERED: FAMO40TA3 PO (15:08)
[2023-08-10] MEDS ORDERED: APAP325T4 PO (15:08)
[2023-08-10] MEDS ORDERED: ASPE4PAD2 TOP (15:08)
[2023-08-10] MEDS ORDERED: REFR0.1D OU (15:08)
[2023-08-10] MEDS ORDERED: POTA-151 PO (15:08)
[2023-08-10] MEDS ORDERED: TRUL0.5I SC (15:08)
[2023-08-10] MEDS ORDERED: SENN-186 PO (15:08)
[2023-08-10] MEDS ORDERED: HYDR-4514 PO (15:08)
[2023-08-10] MEDS ORDERED: NYST1POW9 TOP (15:08)
[2023-08-10] MEDS ORDERED: LANTINJ4 SC (15:08)
[2023-08-10] MEDS ORDERED: HOME MED LIST COMPLETE! XX SCH (15:15)
[2023-08-10] MEDS: cefTRIAXone SOD 1 GM in D5W MINI-BAG PLUS 50 ML IV ONE (15:40)
[2023-08-10] MEDS: NS 1,000 ML IV SCH (15:56)
[2023-08-10] MEDS ORDERED: IPRATROPIUM 0.5MG/ALBUTEROL 2.5MG INH SOL UD 3ML (DUONEB) NEB PRN (16:05)
[2023-08-10] MEDS ORDERED: DEXTROSE 50% 50ML SYRINGE IV PRN (16:05)
[2023-08-10] MEDS ORDERED: GLUCAGON INJ 1MG VIAL SC PRN (16:05)
[2023-08-10] MEDS ORDERED: GLUCOSE 4 GM CHEW PO PRN (16:05)
[2023-08-10] MEDS: AMIODARONE HCL 360 MG/200 ML PREMIXED BAG (NEXTERONE) As Ordered ONE (17:17)
[2023-08-10] MEDS: LIDOCAINE 1% SDV 30ML VIAL As Ordered ONE (17:18)
[2023-08-10] MEDS ORDERED: propofoL 200 MG/20 ML VIAL As Ordered ONE (17:21)
[2023-08-10] MEDS ORDERED: LIDOCAINE 2% 100MG/5ML SDV (FOR ANES.) As Ordered ONE (17:21)
[2023-08-10] MEDS ORDERED: fentaNYL 100 MCG/2 ML INJECTION As Ordered ONE (17:21)
[2023-08-10] MEDS ORDERED: MIDAZOLAM INJ 2MG/2ML VIAL As Ordered ONE (17:21)
[2023-08-10] MEDS ORDERED: hydrALAZINE 20MG/ML 1ML VIAL As Ordered ONE (19:22)
[2023-08-10] MEDS ORDERED: FLUTICASONE PROP 0.05% NASAL SPRAY 16 GM (FLONASE) NARES PRN (19:30)
[2023-08-10] MEDS ORDERED: SUMAtriptan SUCCINATE 25 MG TAB PO PRN (19:30)
[2023-08-10] MEDS ORDERED: FAMOTIDINE 20 MG TAB PO PRN (19:30)
[2023-08-10 20:10] VITALS: BP 147/67; TEMP 96.7; O2SAT 97
[2023-08-10] MEDS: IPRATROPIUM 0.5MG/ALBUTEROL 2.5MG INH SOL UD 3ML (DUONEB) NEB SCH (20:33)
[2023-08-10] MEDS: ADVAIR HFA 115/21MCG INHALER INH SCH (20:33)
[2023-08-10 20:40] VITALS: BP 147/67; TEMP 96.9; O2SAT 97
[2023-08-10] MEDS: INSULIN LISPRO (NovoLOG) PER UNIT SC SCH (20:49)
[2023-08-10] MEDS: POTASSIUM CHLORIDE 10MEQ SR TABLET PO SCH (21:00)
[2023-08-10] MEDS: ANEXSIA, NORCO 7.5MG/325MG TABLET(HYDROCODONE/APAP) PO PRN (21:39)
[2023-08-10 21:40] VITALS: BP 142/64; TEMP 97.5
[2023-08-10] MEDS: ACETAMINOPHEN TAB 650MG DOSE (2X325MG) PO PRN (21:40)
[2023-08-10] MEDS: LOSARTAN 50MG TABLET PO SCH (21:41)
[2023-08-10] MEDS: ATORVASTATIN 20 MG TAB PO SCH (21:41)
[2023-08-10] MEDS: BISACODYL 5MG TAB PO SCH (21:41)
[2023-08-10] MEDS: LEVEMIR (INSULIN DETEMIR) 1 UNITS/0.01ML SC SCH (21:42)
[2023-08-10] MEDS: NYSTATIN 100,000 UNITS/GM TOPICAL PWD 15GM TOP ONE (22:00)
[2023-08-10 22:40] VITALS: BP 115/57; TEMP 97.5; O2SAT 97
[2023-08-10 23:40] VITALS: BP 126/57; TEMP 97.9; O2SAT 98
[2023-08-11] VITALS: BP 140/67; TEMP 97; O2SAT 98
[2023-08-11 04:00] VITALS: BP 126/56; TEMP 96.9; O2SAT 98
[2023-08-11 05:48] LABS: HEMATOCRIT 36.5 % (36.0-47.0); HEMOGLOBIN 11.9 g/dl (12.0-15.5); MEAN CORPUSCULAR HEMOGLOBIN 29.5 pg (27.0-33.0); MEAN CORPUSCULAR HGB CONC 32.6 g/dl (32.0-36.5); MEAN CORPUSCULAR VOLUME 90.6 fl (80.0-96.0); PLATELET COUNT, AUTOMATED 214 10^3/uL (150-450); RED BLOOD COUNT 4.03 10^6/uL (4.00-5.40); WHITE BLOOD COUNT 7.7 10^3/uL (4.0-10.0)
[2023-08-11 06:19] LABS: BLOOD UREA NITROGEN 23 MG/DL (9-23); CARBON DIOXIDE LEVEL 28 MMOL/L (20-31); CHLORIDE LEVEL 109 MMOL/L (98-107); GLOMERULAR FILTRATION RATE > 60.0 (>39); GLUCOSE, FASTING 106 MG/DL (74-106); POTASSIUM SERUM 4.1 MMOL/L (3.5-5.1); SODIUM LEVEL 142 MMOL/L (136-145)
[2023-08-11 07:42] VITALS: BP 135/50; TEMP 97.2; O2SAT 97
[2023-08-11] MEDS: DULoxetine 20MG CAP (CYMBALTA) PO SCH (09:33)
[2023-08-11] MEDS: CALCIUM CARBONATE 500 MG CHEW U/D PO SCH (09:33)
[2023-08-11] MEDS: FUROSEMIDE 40 MG TAB PO SCH (09:34)
[2023-08-11] MEDS: FERROUS GLUCONATE 324 MG TAB PO SCH (09:34)
[2023-08-11] MEDS: INSULIN LISPRO (NovoLOG) PER UNIT SC SCH (09:36)
[2023-08-11] MEDS ORDERED: INSULIN LISPRO (NovoLOG) PER UNIT SC SCH (21:00)
== END 2023-08-11 12:32 ==
LOC: M ED 12:08 → EDBD 12:08 → M ED INP 12:09 → M PCU 20:10
PROVIDERS: ADMIT Family Medicine; ATTEND Family Medicine
DX: I49.5 Sick sinus syndrome (principal); I49.2 Junctional premature depolarization; R53.83 Other fatigue; I44.0 Atrioventricular block, first degree; I13.0 Hypertensive heart and chronic kidney disease with heart failure and stage 1 through stage 4 chronic kidney disease, or unspecified chronic kidney disease; I50.32 Chronic diastolic (congestive) heart failure; G47.33 Obstructive sleep apnea (adult) (pediatric); Z86.718 Personal history of other venous thrombosis and embolism; E66.01 Morbid (severe) obesity due to excess calories; Z68.42 Body mass index [BMI] 45.0-49.9, adult; R60.0 Localized edema; E11.22 Type 2 diabetes mellitus with diabetic chronic kidney disease; J44.9 Chronic obstructive pulmonary disease, unspecified; G25.81 Restless legs syndrome; F33.9 Major depressive disorder, recurrent, unspecified; F41.1 Generalized anxiety disorder; E78.5 Hyperlipidemia, unspecified; N18.30 Chronic kidney disease, stage 3 unspecified; M16.0 Bilateral primary osteoarthritis of hip; M17.0 Bilateral primary osteoarthritis of knee; D50.9 Iron deficiency anemia, unspecified; K21.9 Gastro-esophageal reflux disease without esophagitis; E55.9 Vitamin D deficiency, unspecified; Z90.711 Acquired absence of uterus with remaining cervical stump; Z98.890 Other specified postprocedural states; Z80.0 Family history of malignant neoplasm of digestive organs; Z82.69 Family history of other diseases of the musculoskeletal system and connective tissue; Z87.891 Personal history of nicotine dependence; Z91.040 Latex allergy status; Z88.8 Allergy status to other drugs, medicaments and biological substances; Z91.048 Other nonmedicinal substance allergy status; Z79.899 Other long term (current) drug therapy; Z79.01 Long term (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 anticoagulants; Z79.51 Long term (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 inhaled steroids; Z79.84 Long term (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 oral hypoglycemic drugs; Z79.4 Long term (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
CPT/HCPCS: 33208; 36415; 71045; 76000; 80048; 80076; 81001; 82550; 82553; 83605; 83735; 83880; 84484; 85025; 85027; 85610; 85730; 87040; 87088; 87186; 87486; 87581; 87633; 87798; 93005; 93041; 94640; 94760; 96361; 96365; 99285; C1785; C1898; G0378; J0360; J0696; J1815; J2250; J3010

== ENCOUNTER 2023-08-12 14:13 | Emergency (ER) | payer MEDICARE, MEDICAID ==
[~2023-08-12] VITALS: Ht 170.2 cm; Wt 129.7 kg
[~2023-08-12 14:13] MED LIST changes: +APAP325T4 PO; +ASPE4PAD2 TOP; +BISA5TAB15 PO; +FAMO40TA3 PO; +FERR324T21 PO; +FURO40TA2 PO; +HYDR-4514 PO; +INSU100V6 SQ; +NYST1POW9 TOP; +REFR0.1D OU; +SENN-186 PO; +TRUL0.5I SC
[2023-08-12 15:18] LABS: BASO # 0.1 10^3/uL (0.0-0.2); BASO % 0.7 % (0.0-1.0); EOS # 0.3 10^3/uL (0.0-0.5); HEMATOCRIT 39.5 % (36.0-47.0); HEMOGLOBIN 13.2 g/dl (12.0-15.5); MEAN CORPUSCULAR HEMOGLOBIN 30.1 pg (27.0-33.0); MEAN CORPUSCULAR HGB CONC 33.4 g/dl (32.0-36.5); MONO # 0.6 10^3/uL (0.0-0.8); MONO % 6.3 % (2.0-8.0); NEUTROPHILS # 6.1 10^3/uL (1.5-8.5); NEUTROPHILS % 67.8 % (36.0-66.0); PLATELET COUNT, AUTOMATED 221 10^3/uL (150-450); RED BLOOD COUNT 4.39 10^6/uL (4.00-5.40)
[2023-08-12 15:49] LABS: BLOOD UREA NITROGEN 19 MG/DL (9-23); CALCIUM LEVEL 9.1 MG/DL (8.3-10.6); CARBON DIOXIDE LEVEL 27 MMOL/L (20-31); CHLORIDE LEVEL 104 MMOL/L (98-107); GLOMERULAR FILTRATION RATE > 60.0 (>39); GLUCOSE, FASTING 206 MG/DL (74-106); POTASSIUM SERUM 4.4 MMOL/L (3.5-5.1); SODIUM LEVEL 137 MMOL/L (136-145)
[2023-08-12] MEDS: NORCO, ANEXSIA 5/325MG TABLET (HYDROcodone/ACETAMINOPHEN) PO ONE (18:55)
[2023-08-12 19:24] VITALS: BP 145/65; TEMP 98.2; O2SAT 98
== END 2023-08-12 19:26 | disposition home or self-care (01) ==
LOC: M ED 14:13 → EDBD 14:13 → M ED 19:26
DX: G89.18 Other acute postprocedural pain (principal); Z95.0 Presence of cardiac pacemaker; E11.9 Type 2 diabetes mellitus without complications; N18.30 Chronic kidney disease, stage 3 unspecified; J44.9 Chronic obstructive pulmonary disease, unspecified; Z88.5 Allergy status to narcotic agent; Z88.6 Allergy status to analgesic agent; Z91.048 Other nonmedicinal substance allergy status; Z86.718 Personal history of other venous thrombosis and embolism; Z79.01 Long term (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 anticoagulants; Z79.4 Long term (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; Z79.811 Long term (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 aromatase inhibitors; Z79.899 Other long term (current) drug therapy

== ENCOUNTER → 2023-08-22 | Outpatient (CLI) | payer MEDICARE, MEDICAID ==
[2023-08-22 15:29] LABS: BASO # 0.1 10^3/uL (0.0-0.2); BASO % 0.9 % (0.0-1.0); EOS # 0.2 10^3/uL (0.0-0.5); EOS % 2.6 % (0.0-3.0); HEMATOCRIT 40.3 % (36.0-47.0); HEMOGLOBIN 13.4 g/dl (12.0-15.5); LYMPH # 2.5 10^3/uL (1.5-5.0); LYMPH % 27.2 % (24.0-44.0); MEAN CORPUSCULAR HEMOGLOBIN 30.2 pg (27.0-33.0); MEAN CORPUSCULAR HGB CONC 33.3 g/dl (32.0-36.5); MONO # 0.7 10^3/uL (0.0-0.8); MONO % 7.4 % (2.0-8.0); NEUTROPHILS # 5.8 10^3/uL (1.5-8.5); NEUTROPHILS % 61.5 % (36.0-66.0); PLATELET COUNT, AUTOMATED 218 10^3/uL (150-450); RED BLOOD COUNT 4.43 10^6/uL (4.00-5.40); WHITE BLOOD COUNT 9.3 10^3/uL (4.0-10.0)
[2023-08-22 15:52] LABS: ALBUMIN 3.8 G/DL (3.2-5.2); BILIRUBIN,TOTAL 0.4 MG/DL (0.3-1.2); CALCIUM LEVEL 9.6 MG/DL (8.3-10.6); CREATININE FOR GFR 1.03 MG/DL (0.55-1.30); GLOMERULAR FILTRATION RATE 56.1 (>39); POTASSIUM SERUM 4.7 MMOL/L (3.5-5.1); TOTAL PROTEIN 7.2 G/DL (5.7-8.2)
== END ==
LOC: M PLALAB 14:22
PROVIDERS: ATTEND Physician Assistant Medical
DX: I10 Essential (primary) hypertension (principal); Z95.0 Presence of cardiac pacemaker

== ENCOUNTER 2023-09-02 12:43 | Emergency (ER) | payer MEDICARE, MEDICAID ==
[~2023-09-02] VITALS: Ht 162.6 cm; Wt 131.4 kg
[2023-09-02 14:05] LABS: BASO # 0.1 10^3/uL (0.0-0.2); BASO % 0.7 % (0.0-1.0); EOS # 0.3 10^3/uL (0.0-0.5); EOS % 2.9 % (0.0-3.0); HEMATOCRIT 40.2 % (36.0-47.0); HEMOGLOBIN 13.5 g/dl (12.0-15.5); LYMPH # 2.5 10^3/uL (1.5-5.0); LYMPH % 29.2 % (24.0-44.0); MEAN CORPUSCULAR HEMOGLOBIN 29.6 pg (27.0-33.0); MEAN CORPUSCULAR HGB CONC 33.6 g/dl (32.0-36.5); MEAN CORPUSCULAR VOLUME 88.2 fl (80.0-96.0); MONO # 0.6 10^3/uL (0.0-0.8); MONO % 6.5 % (2.0-8.0); NEUTROPHILS # 5.3 10^3/uL (1.5-8.5); NEUTROPHILS % 60.4 % (36.0-66.0); PLATELET COUNT, AUTOMATED 237 10^3/uL (150-450); RED BLOOD COUNT 4.56 10^6/uL (4.00-5.40); WHITE BLOOD COUNT 8.7 10^3/uL (4.0-10.0)
[2023-09-02] MEDS: GABAPENTIN 100 MG CAP PO ONE (14:05)
[2023-09-02 14:30] LABS: BLOOD UREA NITROGEN 21 MG/DL (9-23); CALCIUM LEVEL 9.6 MG/DL (8.3-10.6); CARBON DIOXIDE LEVEL 29 MMOL/L (20-31); CHLORIDE LEVEL 103 MMOL/L (98-107); CREATININE FOR GFR 0.88 MG/DL (0.55-1.30); GLOMERULAR FILTRATION RATE > 60.0 (>39); GLUCOSE, FASTING 248 MG/DL (74-106); MAGNESIUM LEVEL 1.6 MG/DL (1.8-2.4); POTASSIUM SERUM 4.3 MMOL/L (3.5-5.1); SODIUM LEVEL 137 MMOL/L (136-145); THYROID STIMULATING HORMONE 1.814 uIU/ML (0.55-4.78)
[2023-09-02 14:31] LABS: TOTAL 25(OH) VITAMIN D 19.8 NG/ML (20.0-100.0)
[2023-09-02 14:32] LABS: VITAMIN B12 LEVEL 523 PG/ML (211-911)
[2023-09-02 14:33] LABS: FREE T4 1.11 NG/DL (0.89-1.76)
[2023-09-02] MEDS ORDERED: DICL100G10 TOP (15:06)
[2023-09-02] MEDS ORDERED: GABA-1171 PO (15:06)
[2023-09-02] MEDS: MAGNESIUM OXIDE 400MG TAB (MAG-OX) PO ONE (15:29)
[2023-09-02 15:40] VITALS: BP 160/67; TEMP 97.9; O2SAT 96
== END 2023-09-02 15:40 | disposition home or self-care (01) ==
LOC: EDBD 12:43 → M ED 12:43
DX: E11.40 Type 2 diabetes mellitus with diabetic neuropathy, unspecified (principal); I50.22 Chronic systolic (congestive) heart failure; K21.9 Gastro-esophageal reflux disease without esophagitis; I11.0 Hypertensive heart disease with heart failure; J45.909 Unspecified asthma, uncomplicated; N18.9 Chronic kidney disease, unspecified; R94.31 Abnormal electrocardiogram [ECG] [EKG]; Z88.8 Allergy status to other drugs, medicaments and biological substances; Z88.5 Allergy status to narcotic agent; Z91.040 Latex allergy status; Z79.1 Long term (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 non-steroidal anti-inflammatories (NSAID); Z79.4 Long term (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; Z79.899 Other long term (current) drug therapy

== ENCOUNTER 2023-09-07 09:33 | Outpatient (RCR) | payer MEDICARE, MEDICAID | END 2023-09-10 | LOC: M PT 09:33 | PROVIDERS: ATTEND Physician Assistant Medical | DX: M51.36 Other intervertebral disc degeneration, lumbar region (principal) ==

== ENCOUNTER → 2023-09-11 | Outpatient (REF) | payer MEDICARE, MEDICAID ==
[2023-09-11 15:29] LABS: BASO # 0.1 10^3/uL (0.0-0.2); BASO % 0.7 % (0.0-1.0); EOS # 0.3 10^3/uL (0.0-0.5); EOS % 3.5 % (0.0-3.0); HEMATOCRIT 37.4 % (36.0-47.0); HEMOGLOBIN 12.4 g/dl (12.0-15.5); LYMPH # 2.6 10^3/uL (1.5-5.0); MEAN CORPUSCULAR HEMOGLOBIN 29.2 pg (27.0-33.0); MEAN CORPUSCULAR HGB CONC 33.2 g/dl (32.0-36.5); MEAN CORPUSCULAR VOLUME 88.2 fl (80.0-96.0); MONO # 0.5 10^3/uL (0.0-0.8); NEUTROPHILS % 53.5 % (36.0-66.0); PLATELET COUNT, AUTOMATED 194 10^3/uL (150-450); RED BLOOD COUNT 4.24 10^6/uL (4.00-5.40); WHITE BLOOD COUNT 7.4 10^3/uL (4.0-10.0)
[2023-09-11 15:51] LABS: ALBUMIN 3.5 G/DL (3.2-5.2); ALKALINE PHOSPHATASE 141 U/L (46-116); ALT/SGPT 27 U/L (7.0-40); AST/SGOT 17 U/L (<34); BILIRUBIN,TOTAL 0.3 MG/DL (0.3-1.2); BLOOD UREA NITROGEN 23 MG/DL (9-23); CALCIUM LEVEL 9.1 MG/DL (8.3-10.6); CARBON DIOXIDE LEVEL 25 MMOL/L (20-31); CHLORIDE LEVEL 106 MMOL/L (98-107); CREATININE FOR GFR 0.92 MG/DL (0.55-1.30); GLOMERULAR FILTRATION RATE > 60.0 (>39); GLUCOSE, FASTING 312 MG/DL (74-106); POTASSIUM SERUM 4.6 MMOL/L (3.5-5.1); SODIUM LEVEL 138 MMOL/L (136-145); TOTAL PROTEIN 6.6 G/DL (5.7-8.2)
[2023-09-11 15:53] LABS: FERRITIN 61.7 NG/ML (7.3-270.7)
[2023-09-11 16:47] LABS: HEMOGLOBIN A1c 8.6 % (4.0-6.0)
== END ==
PROVIDERS: ATTEND Physician Assistant Medical
DX: E11.622 Type 2 diabetes mellitus with other skin ulcer (principal); I10 Essential (primary) hypertension; D50.0 Iron deficiency anemia secondary to blood loss (chronic); E78.2 Mixed hyperlipidemia

== ENCOUNTER 2023-11-22 19:17 | Inpatient (IN) | payer MEDICARE, MEDICAID ==
[~2023-11-22] VITALS: Ht 167.6 cm; Wt 132.7 kg
[2023-11-22] MEDS: methylPREDNISolone 125MG 2ML VIAL IV ONE (20:28)
[2023-11-22 20:43] LABS: BASO # 0.1 10^3/uL (0.0-0.2); BASO % 0.7 % (0.0-1.0); EOS # 0.2 10^3/uL (0.0-0.5); EOS % 2.9 % (0.0-3.0); HEMATOCRIT 36.8 % (36.0-47.0); HEMOGLOBIN 12.4 g/dl (12.0-15.5); LYMPH # 2.6 10^3/uL (1.5-5.0); LYMPH % 32.4 % (24.0-44.0); MEAN CORPUSCULAR HEMOGLOBIN 29.4 pg (27.0-33.0); MEAN CORPUSCULAR HGB CONC 33.7 g/dl (32.0-36.5); MEAN CORPUSCULAR VOLUME 87.2 fl (80.0-96.0); MONO # 0.7 10^3/uL (0.0-0.8); MONO % 8.1 % (2.0-8.0); NEUTROPHILS # 4.5 10^3/uL (1.5-8.5); NEUTROPHILS % 55.7 % (36.0-66.0); PLATELET COUNT, AUTOMATED 236 10^3/uL (150-450); RED BLOOD COUNT 4.22 10^6/uL (4.00-5.40); WHITE BLOOD COUNT 8.2 10^3/uL (4.0-10.0)
[2023-11-22 21:07] LABS: CK-MB VALUE MASS 3.3 NG/ML (<3.6)
[2023-11-22 21:08] LABS: MB/CK RELATIVE INDEX 0.6 (< OR =4)
[2023-11-22 21:09] LABS: ALBUMIN 3.7 G/DL (3.2-5.2); BILIRUBIN,DIRECT 0.1 MG/DL (<0.4); BILIRUBIN,TOTAL 0.4 MG/DL (0.3-1.2); CALCIUM LEVEL 9.6 MG/DL (8.3-10.6); CREATININE FOR GFR 1.2 MG/DL (0.55-1.30); POTASSIUM SERUM 4.1 MMOL/L (3.5-5.1); TOTAL PROTEIN 6.9 G/DL (5.7-8.2)
[2023-11-22 21:11] LABS: THYROXINE (T4) 8.8 UG/DL (4.5-10.9)
[2023-11-22 21:12] LABS: THYROID STIMULATING HORMONE 1.426 uIU/ML (0.55-4.78)
[2023-11-22 21:16] LABS: PROCALCITONIN 0.05 ng/ml
[2023-11-22 22:10] LABS: CK-MB VALUE MASS 3.5 NG/ML (<3.6)
[2023-11-22 22:11] LABS: MB/CK RELATIVE INDEX 0.66 (< OR =4)
[2023-11-22] MEDS ORDERED: DULA3PEN SQ (23:04)
[2023-11-22] MEDS ORDERED: LORA10TA3 PO (23:05)
[2023-11-22] MEDS ORDERED: ALB2.5NEB INH (23:05)
[2023-11-22] MEDS ORDERED: GABA-284 PO (23:05)
[2023-11-22] MEDS ORDERED: LOPE-26 PO (23:05)
[2023-11-22] MEDS ORDERED: HOME MED LIST COMPLETE! XX SCH (23:10)
[2023-11-22] MEDS ORDERED: NYSTATIN 100,000 UNITS/GM TOPICAL PWD 15GM TOP PRN (23:25)
[2023-11-22] MEDS ORDERED: GLUCAGON INJ 1MG VIAL SC PRN (23:25)
[2023-11-22] MEDS ORDERED: DEXTROSE 50% 50ML SYRINGE IV PRN (23:25)
[2023-11-22] MEDS ORDERED: ANEXSIA, NORCO 7.5MG/325MG TABLET(HYDROCODONE/APAP) PO PRN (23:25)
[2023-11-22] MEDS ORDERED: MOM 30ML SUSPENSION UDC PO PRN (23:25)
[2023-11-22] MEDS ORDERED: SUMAtriptan SUCCINATE 25 MG TAB PO PRN (23:25)
[2023-11-22] MEDS ORDERED: GLUCOSE 4 GM CHEW PO PRN (23:25)
[2023-11-22] MEDS ORDERED: ALBUTEROL SULFATE 2.5MG/0.5ML INH NEB SOLN NEB PRN (23:25)
[2023-11-23 01:09] VITALS: BP 159/75; TEMP 97.9; O2SAT 91
[2023-11-23] MEDS: DOXYCYCLINE HYCLATE 100MG TABLET PO SCH (01:26)
[2023-11-23] MEDS: IPRATROPIUM 0.5MG/ALBUTEROL 2.5MG INH SOL UD 3ML (DUONEB) NEB SCH (02:35)
[2023-11-23] MEDS: methylPREDNISolone 40MG 1ML VIAL IV SCH ×2 (05:17→17:18)
[2023-11-23 07:19] LABS: HEMATOCRIT 36.2 % (36.0-47.0); HEMOGLOBIN 12.3 g/dl (12.0-15.5); MEAN CORPUSCULAR HEMOGLOBIN 29.5 pg (27.0-33.0); MEAN CORPUSCULAR VOLUME 86.8 fl (80.0-96.0); PLATELET COUNT, AUTOMATED 240 10^3/uL (150-450); RED BLOOD COUNT 4.17 10^6/uL (4.00-5.40)
[2023-11-23] MEDS ORDERED: INSULIN LISPRO (NovoLOG) PER UNIT SC SCH (07:30)
[2023-11-23 07:39] LABS: ALBUMIN 3.6 G/DL (3.2-5.2); BILIRUBIN,TOTAL 0.5 MG/DL (0.3-1.2); CALCIUM LEVEL 9.2 MG/DL (8.3-10.6); CREATININE FOR GFR 0.98 MG/DL (0.55-1.30); GLOMERULAR FILTRATION RATE 59.4 (>39); POTASSIUM SERUM 3.9 MMOL/L (3.5-5.1); TOTAL PROTEIN 6.9 G/DL (5.7-8.2)
[2023-11-23] MEDS: SYMBICORT 160/4.5MCG INHALER 6GM INH SCH (07:48)
[2023-11-23] MEDS ORDERED: DICLOFENAC EPOLAMINE 1.3% PATCH TOP SCH ×3 (09:00→14:05)
[2023-11-23] MEDS: GABAPENTIN 400MG CAP PO SCH (09:07)
[2023-11-23] MEDS: DOCUSATE SODIUM 100MG CAPSULE PO SCH (09:07)
[2023-11-23] MEDS: FAMOTIDINE 20 MG TAB PO SCH (09:07)
[2023-11-23] MEDS: APIXABAN 5 MG TAB (ELIQUIS) PO SCH (09:07)
[2023-11-23] MEDS: DULoxetine 20MG CAP (CYMBALTA) PO SCH (09:08)
[2023-11-23] MEDS: FUROSEMIDE 40 MG TAB PO SCH (09:08)
[2023-11-23] MEDS: POTASSIUM CHLORIDE 10MEQ SR TABLET PO SCH (09:09)
[2023-11-23] MEDS: LEVEMIR (INSULIN DETEMIR) 1 UNITS/0.01ML SC SCH (09:10)
[2023-11-23] MEDS: INSULIN LISPRO (NovoLOG) PER UNIT SC SCH ×3 (09:10→21:27)
[2023-11-23] MEDS: NYSTATIN CREAM 15GM TOP SCH (09:11)
[2023-11-23] MEDS: LACTIC ACID 12% LOTION 225 GM BTL TOP SCH (09:11)
[2023-11-23 12:00] VITALS: BP 115/76; TEMP 98.1; O2SAT 94
[2023-11-23] MEDS: BISACODYL 5MG TAB PO SCH (21:00)
[2023-11-23 21:02] VITALS: BP 117/77; TEMP 97.5; O2SAT 95
[2023-11-23] MEDS: LIDOCAINE 5% (LIDODERM) PATCH TD SCH (21:26)
[2023-11-23] MEDS: LOSARTAN 50MG TABLET PO SCH (21:31)
[2023-11-23] MEDS: LORATADINE 10 MG TAB PO SCH (21:33)
[2023-11-23] MEDS: ATORVASTATIN 20 MG TAB PO SCH (21:33)
[2023-11-24 04:00] VITALS: BP 137/61; TEMP 97.3; O2SAT 91
[2023-11-24 08:35] VITALS: BP 172/88; TEMP 98.1
[2023-11-24] MEDS: SENNA 8.6 MG TAB (SENOKOT) PO PRN (09:33)
[2023-11-24 09:57] LABS: ABG BASE EXCESS -1.8 (-2.0-2.0); ABG HCO3 22.2 MMOL/L (22.0-26.0); ABG O2 SATURATION 97.4 % (95.0-99.0); ABG PARTIAL PRESSURE CO2 35.2 mmHg (35.0-45.0); ABG PARTIAL PRESSURE O2 93.8 mmHg (75.0-100.0); ABG STANDARD HCO3 22.9 MMOL/L. (22.0-26.0); ABG TOTAL CO2 23.2 MMOL/L (23.0-31.0); ABG pH (ARTERIAL) 7.417 UNITS (7.350-7.450)
[2023-11-24 12:00] VITALS: BP 152/70; TEMP 98.1; O2SAT 95
[2023-11-24] MEDS: IPRATROPIUM 0.5MG/ALBUTEROL 2.5MG INH SOL UD 3ML (DUONEB) NEB SCH (13:08)
[2023-11-24 20:30] VITALS: BP 145/61; TEMP 98.2; O2SAT 95
[2023-11-24] MEDS: SENNA 8.6 MG TAB (SENOKOT) PO SCH (22:01)
[2023-11-25 04:22] VITALS: BP 136/61; TEMP 97.3; O2SAT 92
[2023-11-25] MEDS: predniSONE 20 MG TAB PO SCH (08:40)
[2023-11-25 12:00] VITALS: BP 145/63; TEMP 97.7; O2SAT 94
[2023-11-25 20:56] VITALS: BP 145/59; TEMP 97.5; O2SAT 95
[2023-11-26 04:00] VITALS: BP 153/68; TEMP 97.3; O2SAT 96
[2023-11-26 09:25] LABS: BASO % 0.3 % (0.0-1.0); EOS # 0.2 10^3/uL (0.0-0.5); EOS % 1.9 % (0.0-3.0); HEMATOCRIT 34.4 % (36.0-47.0); HEMOGLOBIN 11.5 g/dl (12.0-15.5); LYMPH # 3.4 10^3/uL (1.5-5.0); LYMPH % 35.2 % (24.0-44.0); MEAN CORPUSCULAR HEMOGLOBIN 29.6 pg (27.0-33.0); MEAN CORPUSCULAR HGB CONC 33.4 g/dl (32.0-36.5); MEAN CORPUSCULAR VOLUME 88.4 fl (80.0-96.0); MONO # 0.6 10^3/uL (0.0-0.8); MONO % 5.8 % (2.0-8.0); NEUTROPHILS # 5.4 10^3/uL (1.5-8.5); NEUTROPHILS % 56.2 % (36.0-66.0); PLATELET COUNT, AUTOMATED 220 10^3/uL (150-450); RED BLOOD COUNT 3.89 10^6/uL (4.00-5.40); WHITE BLOOD COUNT 9.6 10^3/uL (4.0-10.0)
[2023-11-26 09:48] LABS: BLOOD UREA NITROGEN 31 MG/DL (9-23); CALCIUM LEVEL 9.3 MG/DL (8.3-10.6); CARBON DIOXIDE LEVEL 27 MMOL/L (20-31); CHLORIDE LEVEL 105 MMOL/L (98-107); CREATININE FOR GFR 0.93 MG/DL (0.55-1.30); GLOMERULAR FILTRATION RATE > 60.0 (>39); GLUCOSE, FASTING 235 MG/DL (74-106); POTASSIUM SERUM 4.1 MMOL/L (3.5-5.1); SODIUM LEVEL 138 MMOL/L (136-145)
[2023-11-26 12:00] VITALS: BP 157/71; TEMP 97.7; O2SAT 94
[2023-11-26 21:30] VITALS: BP 159/70; TEMP 97.9; O2SAT 91
[2023-11-26] MEDS: GABAPENTIN 100 MG CAP PO SCH (21:40)
[2023-11-27 04:15] VITALS: BP 141/50; TEMP 97.7; O2SAT 95
[2023-11-27] MEDS: predniSONE 20 MG TAB PO SCH (08:56)
[2023-11-27 12:00] VITALS: BP 132/53; TEMP 97.7; O2SAT 96
[2023-11-27] MEDS: INSULIN LISPRO (NovoLOG) PER UNIT SC SCH (17:30)
[2023-11-27 20:00] VITALS: BP 132/86; TEMP 97.3; O2SAT 100
[2023-11-27 20:43] VITALS: BP 132/53
[2023-11-28 03:40] VITALS: BP 133/84; TEMP 97.2; O2SAT 96
[2023-11-28 12:00] VITALS: BP 141/65; TEMP 97.3; O2SAT 99
[2023-11-28] MEDS ORDERED: PRED20TA PO (12:48)
[2023-11-28] MEDS ORDERED: GABA-1171 PO (12:48)
[2023-11-28] MEDS ORDERED: LIDO5TD TD (12:48)
[2023-11-28] MEDS ORDERED: PRED10TA2 PO (12:48)
== END 2023-11-28 13:46 | disposition home health service (06) | DRG 191 ==
LOC: EDUNIT# 19:17 → M ED 19:17 → EDBD 19:17 → M ED INP 23:24 → M MSPAV 11-23 00:52
PROVIDERS: ADMIT Family Medicine; ATTEND Student in an Organized Health Care Education/Training Program
DX: J44.1 Chronic obstructive pulmonary disease with (acute) exacerbation (principal); F33.9 Major depressive disorder, recurrent, unspecified; Z68.42 Body mass index [BMI] 45.0-49.9, adult; I50.32 Chronic diastolic (congestive) heart failure; I13.0 Hypertensive heart and chronic kidney disease with heart failure and stage 1 through stage 4 chronic kidney disease, or unspecified chronic kidney disease; E11.22 Type 2 diabetes mellitus with diabetic chronic kidney disease; E66.9 Obesity, unspecified; G25.81 Restless legs syndrome; F41.1 Generalized anxiety disorder; E78.5 Hyperlipidemia, unspecified; M17.0 Bilateral primary osteoarthritis of knee; M16.0 Bilateral primary osteoarthritis of hip; E11.42 Type 2 diabetes mellitus with diabetic polyneuropathy; N18.30 Chronic kidney disease, stage 3 unspecified; K21.9 Gastro-esophageal reflux disease without esophagitis; E55.9 Vitamin D deficiency, unspecified; G47.33 Obstructive sleep apnea (adult) (pediatric); D64.9 Anemia, unspecified; E61.1 Iron deficiency; K57.90 Diverticulosis of intestine, part unspecified, without perforation or abscess without bleeding; R26.89 Other abnormalities of gait and mobility; R29.6 Repeated falls; Z79.01 Long term (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 anticoagulants; Z79.4 Long term (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; Z79.899 Other long term (current) drug therapy; Z88.1 Allergy status to other antibiotic agents; Z88.5 Allergy status to narcotic agent; Z88.6 Allergy status to analgesic agent; Z88.8 Allergy status to other drugs, medicaments and biological substances; Z91.040 Latex allergy status; Z91.048 Other nonmedicinal substance allergy status; Z95.0 Presence of cardiac pacemaker; Z86.010 Personal history of colon polyps; Z86.718 Personal history of other venous thrombosis and embolism; Z87.891 Personal history of nicotine dependence; Z86.711 Personal history of pulmonary embolism; Z98.1 Arthrodesis status

== ENCOUNTER → 2023-12-15 | Outpatient (REF) | payer MEDICARE, MEDICAID ==
[~2023-12-15] MED LIST changes: -DOXY-323 PO; +DOXY-441 PO; +DULA3PEN SQ; +GABA-284 PO; +LOPE-26 PO; +LORA10TA3 PO
[2023-12-15 10:22] LABS: ALBUMIN 3.5 G/DL (3.2-5.2); BILIRUBIN,TOTAL 0.7 MG/DL (0.3-1.2); CALCIUM LEVEL 9.1 MG/DL (8.3-10.6); CREATININE FOR GFR 1.05 MG/DL (0.55-1.30); GLOMERULAR FILTRATION RATE 54.8 (>39); POTASSIUM SERUM 4.1 MMOL/L (3.5-5.1); TOTAL PROTEIN 6.4 G/DL (5.7-8.2)
== END ==
PROVIDERS: ATTEND Physician Assistant Medical
DX: N18.31 Chronic kidney disease, stage 3a (principal); I50.32 Chronic diastolic (congestive) heart failure

== ENCOUNTER → 2023-12-18 | Outpatient (REF) | payer MEDICARE, MEDICAID ==
[2023-12-19 11:00] LABS: APPEARANCE, URINE HAZY (CLEAR); BACTERIA, URINE AUTO 3+ (NEGATIVE); BILIRUBIN, URINE AUTO NEGATIVE (NEGATIVE); BLOOD, URINE BLOOD NEGATIVE (NEGATIVE); COLOR, URINE YELLOW (YELLOW); GLUCOSE, URINE (UA) AUTO NEGATIVE (NEGATIVE); KETONE, URINE AUTO NEGATIVE (NEGATIVE); LEUKOCYTE ESTERASE, URINE AUTO TRACE (NEGATIVE); MUCUS, URINE SMALL (NEGATIVE); NITRITE, URINE AUTO NEGATIVE (NEGATIVE); PROTEIN, URINE AUTO NEGATIVE (NEGATIVE); RBC, URINE AUTO 0 /HPF (0-3); SQUAMOUS EPITHELIAL CELL UR AU 1 /HPF (0-6); UROBILINOGEN, URINE AUTO 0.2 mg/dL (0.0-2.0); WBC, URINE AUTO 8 /HPF (0-3)
== END ==
PROVIDERS: ATTEND Physician Assistant Medical
DX: N30.00 Acute cystitis without hematuria (principal)

== ENCOUNTER 2023-12-27 09:58 | Emergency (ER) | payer MEDICARE, MEDICAID ==
[~2023-12-27] VITALS: Ht 167.6 cm; Wt 132.7 kg
[2023-12-27 10:07] VITALS: TEMP 98.1
[2023-12-27] MEDS: diphenhydrAMINE 50MG/ML VIAL IV ONE (12:29)
[2023-12-27] MEDS: NS 500 ML IV ONE (12:29)
[2023-12-27] MEDS: METOCLOPRAMIDE INJ 10MG/2ML VIAL IV ONE (12:30)
[2023-12-27] MEDS: KETOROLAC 30 MG/ML 1ML VIAL IV ONE (13:48)
[2023-12-27] MEDS: MAG SULF 1GM/100ML (MAG RUN) 1 GM in IV 1 EA IV ONE (14:54)
[2023-12-27] MEDS: ACETAMINOPHEN 325 MG TAB PO ONE (14:54)
[2023-12-27 15:05] LABS: BASO % 0.6 % (0.0-1.0); EOS # 0.1 10^3/uL (0.0-0.5); HEMATOCRIT 33.8 % (36.0-47.0); HEMOGLOBIN 11.5 g/dl (12.0-15.5); LYMPH # 1.9 10^3/uL (1.5-5.0); LYMPH % 38.5 % (24.0-44.0); MEAN CORPUSCULAR HEMOGLOBIN 30.2 pg (27.0-33.0); MEAN CORPUSCULAR VOLUME 88.7 fl (80.0-96.0); MONO # 0.4 10^3/uL (0.0-0.8); MONO % 8.4 % (2.0-8.0); NEUTROPHILS # 2.5 10^3/uL (1.5-8.5); NEUTROPHILS % 50.3 % (36.0-66.0); PLATELET COUNT, AUTOMATED 209 10^3/uL (150-450); RED BLOOD COUNT 3.81 10^6/uL (4.00-5.40); WHITE BLOOD COUNT 4.9 10^3/uL (4.0-10.0)
[2023-12-27 15:30] LABS: CALCIUM LEVEL 8.8 MG/DL (8.3-10.6); CREATININE FOR GFR 1.34 MG/DL (0.55-1.30); GLOMERULAR FILTRATION RATE 41.4 (>39); MAGNESIUM LEVEL 1.6 MG/DL (1.8-2.4)
[2023-12-27 17:21] VITALS: BP 105/58
[2023-12-27 18:53] VITALS: O2SAT 97
== END 2023-12-27 20:25 | disposition home or self-care (01) ==
LOC: M ED 09:58 → EDBD 09:58 → M ED 20:25
DX: E86.0 Dehydration (principal); G43.909 Migraine, unspecified, not intractable, without status migrainosus; E83.42 Hypomagnesemia; E11.9 Type 2 diabetes mellitus without complications; I12.9 Hypertensive chronic kidney disease with stage 1 through stage 4 chronic kidney disease, or unspecified chronic kidney disease; J44.9 Chronic obstructive pulmonary disease, unspecified; J45.909 Unspecified asthma, uncomplicated; K21.9 Gastro-esophageal reflux disease without esophagitis; Z88.5 Allergy status to narcotic agent; Z88.8 Allergy status to other drugs, medicaments and biological substances; Z91.040 Latex allergy status; Z79.1 Long term (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 non-steroidal anti-inflammatories (NSAID); Z79.51 Long term (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 inhaled steroids; Z79.01 Long term (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 anticoagulants; Z79.4 Long term (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; Z79.52 Long term (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 systemic steroids; Z79.899 Other long term (current) drug therapy
CPT/HCPCS: 36415; 51701; 70450; 80048; 81001; 83735; 85025; 87486; 87581; 87633; 87798; 96361; 96374; 96375; 99285; J1200; J1885; J2765; J3475

== ENCOUNTER → 2024-01-12 | Outpatient (REF) | payer MEDICARE, MEDICAID ==
[~2024-01-12] MED LIST changes: -ADV100INH INH; -ADV250INH INH; +ADVA1AER8 INH; +ADVA1AER9 INH; +MEDR4PAK PO; +NYST1POW3 TOP; -NYST1POW9 TOP; +VALI5TAB PO
[2024-01-12 08:49] LABS: BASO # 0.1 10^3/uL (0.0-0.2); BASO % 0.7 % (0.0-1.0); EOS # 0.1 10^3/uL (0.0-0.5); EOS % 1.5 % (0.0-3.0); HEMATOCRIT 34.6 % (36.0-47.0); HEMOGLOBIN 11.5 g/dl (12.0-15.5); LYMPH # 2.4 10^3/uL (1.5-5.0); LYMPH % 34.2 % (24.0-44.0); MEAN CORPUSCULAR HEMOGLOBIN 30.2 pg (27.0-33.0); MEAN CORPUSCULAR HGB CONC 33.2 g/dl (32.0-36.5); MEAN CORPUSCULAR VOLUME 90.8 fl (80.0-96.0); MONO # 0.6 10^3/uL (0.0-0.8); MONO % 8.9 % (2.0-8.0); NEUTROPHILS # 3.9 10^3/uL (1.5-8.5); NEUTROPHILS % 54.4 % (36.0-66.0); PLATELET COUNT, AUTOMATED 217 10^3/uL (150-450); RED BLOOD COUNT 3.81 10^6/uL (4.00-5.40); WHITE BLOOD COUNT 7.1 10^3/uL (4.0-10.0)
[2024-01-12 09:21] LABS: ALBUMIN 3.4 G/DL (3.2-5.2); BILIRUBIN,TOTAL 0.3 MG/DL (0.3-1.2); CALCIUM LEVEL 9.8 MG/DL (8.3-10.6); POTASSIUM SERUM 3.8 MMOL/L (3.5-5.1); TOTAL PROTEIN 6.3 G/DL (5.7-8.2)
[2024-01-12 09:22] LABS: FREE T4 1.02 NG/DL (0.89-1.76); THYROID STIMULATING HORMONE 2.957 uIU/ML (0.55-4.78)
== END ==
PROVIDERS: ATTEND Physician Assistant Medical
DX: T50.905S Adverse effect of unspecified drugs, medicaments and biological substances, sequela (principal); R44.3 Hallucinations, unspecified; Z79.899 Other long term (current) drug therapy

== ENCOUNTER 2024-02-19 21:53 | Emergency (ER) | payer MEDICARE, MEDICAID ==
[~2024-02-19 21:53] MED LIST changes: -MEDR4PAK PO; -VALI5TAB PO
[2024-02-19 22:05] VITALS: TEMP 98.2
[2024-02-20 00:10] VITALS: BP 136/60
[2024-02-20] MEDS: diazePAM 10MG/2ML SYRINGE IM ONE (00:10)
[2024-02-20] MEDS: methylPREDNISolone 125MG 2ML VIAL IM ONE (00:12)
[2024-02-20] MEDS ORDERED: MEDR4PAK PO (01:26)
[2024-02-20] MEDS ORDERED: VALI5TAB PO (01:26)
[2024-02-20 01:45] VITALS: O2SAT 95
== END 2024-02-20 02:22 | disposition home or self-care (01) ==
LOC: EDBD 21:53 → M ED 21:53
DX: M54.32 Sciatica, left side (principal); I10 Essential (primary) hypertension; E78.5 Hyperlipidemia, unspecified; F32.A Depression, unspecified; Z88.5 Allergy status to narcotic agent; Z88.8 Allergy status to other drugs, medicaments and biological substances; Z91.040 Latex allergy status; Z79.1 Long term (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 non-steroidal anti-inflammatories (NSAID); Z79.51 Long term (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 inhaled steroids; Z79.01 Long term (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 anticoagulants; Z79.4 Long term (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; Z79.52 Long term (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 systemic steroids; Z79.899 Other long term (current) drug therapy
CPT/HCPCS: 72131; 72192; 96372; 99284; J2919; J3360

== ENCOUNTER 2024-02-23 17:27 | Observation (INO) | payer MEDICARE, MEDICAID ==
[~2024-02-23 17:27] MED LIST changes: +MEDR4PAK PO; +VALI5TAB PO
[2024-02-23] MEDS ORDERED: ALBUTEROL 90 MCG/ACT 8GM HFA INHALER INH PRN (20:40)
[2024-02-23] MEDS ORDERED: DEXTROSE 50% 50ML SYRINGE IV PRN (20:50)
[2024-02-23] MEDS ORDERED: GLUCAGON INJ 1MG VIAL SC PRN (20:50)
[2024-02-23] MEDS ORDERED: ACETAMINOPHEN 325 MG TAB PO PRN (20:50)
[2024-02-23] MEDS ORDERED: GLUCOSE 4 GM CHEW PO PRN (20:50)
[2024-02-23] MEDS: INSULIN LISPRO (NovoLOG) PER UNIT SC SCH (21:00)
[2024-02-23 21:27] VITALS: BP 147/67; TEMP 96.8; O2SAT 96
[2024-02-23 21:52] LABS: HEMATOCRIT 39.6 % (36.0-47.0); HEMOGLOBIN 13.3 g/dl (12.0-15.5); MEAN CORPUSCULAR HEMOGLOBIN 29.9 pg (27.0-33.0); MEAN CORPUSCULAR HGB CONC 33.6 g/dl (32.0-36.5); PLATELET COUNT, AUTOMATED 244 10^3/uL (150-450); RED BLOOD COUNT 4.45 10^6/uL (4.00-5.40); WHITE BLOOD COUNT 9.9 10^3/uL (4.0-10.0)
[2024-02-23 22:12] LABS: BLOOD UREA NITROGEN 28 MG/DL (9-23); CALCIUM LEVEL 9.5 MG/DL (8.3-10.6); CARBON DIOXIDE LEVEL 30 MMOL/L (20-31); CHLORIDE LEVEL 104 MMOL/L (98-107); CREATININE FOR GFR 0.91 MG/DL (0.55-1.30); GLOMERULAR FILTRATION RATE > 60.0 (>39); GLUCOSE, FASTING 165 MG/DL (74-106); MAGNESIUM LEVEL 1.8 MG/DL (1.8-2.4); PHOSPHORUS LEVEL 3.2 MG/DL (2.4-5.1); POTASSIUM SERUM 3.7 MMOL/L (3.5-5.1); SODIUM LEVEL 139 MMOL/L (136-145)
[2024-02-23 22:15] LABS: THYROID STIMULATING HORMONE 1.917 uIU/ML (0.55-4.78)
[2024-02-23 22:19] LABS: PROCALCITONIN <0.04 ng/ml
[2024-02-23] MEDS ORDERED: GABA-1171 PO (22:21)
[2024-02-23] MEDS ORDERED: LIDO5DIS41 TD (22:21)
[2024-02-23] MEDS ORDERED: HOME MED LIST COMPLETE! XX SCH (22:25)
[2024-02-23] MEDS ORDERED: SUMAtriptan SUCCINATE 25 MG TAB PO PRN (22:30)
[2024-02-23] MEDS ORDERED: diazePAM 5MG TABLET PO PRN (22:30)
[2024-02-23] MEDS ORDERED: FLUTICASONE PROP 0.05% NASAL SPRAY 16 GM (FLONASE) NARES PRN (22:30)
[2024-02-23] MEDS: LOSARTAN 50MG TABLET PO SCH (23:31)
[2024-02-23] MEDS: FERROUS GLUCONATE 324 MG TAB PO SCH (23:31)
[2024-02-23 23:33] VITALS: O2SAT 94
[2024-02-24] VITALS (8 sets, daily range): BP systolic 108–150; BP diastolic 56–89; TEMP 97–97.4; O2SAT 90–98
[2024-02-24] MEDS: ADVAIR HFA 115/21MCG INHALER INH SCH (07:34)
[2024-02-24] MEDS: DULoxetine 20MG CAP (CYMBALTA) PO SCH (09:00)
[2024-02-24] MEDS: FAMOTIDINE 20 MG TAB PO SCH (09:00)
[2024-02-24] MEDS: APIXABAN 5 MG TAB (ELIQUIS) PO SCH (09:00)
[2024-02-24] MEDS: GABAPENTIN 100 MG CAP PO SCH (09:00)
[2024-02-24] MEDS: INSULIN LISPRO (NovoLOG) PER UNIT SC SCH (09:01)
[2024-02-24] MEDS: LEVEMIR (INSULIN DETEMIR) 1 UNITS/0.01ML SC SCH (09:01)
[2024-02-24 12:00] LABS: BASO % 0.4 % (0.0-1.0); EOS # 0.2 10^3/uL (0.0-0.5); EOS % 1.8 % (0.0-3.0); HEMATOCRIT 38.9 % (36.0-47.0); HEMOGLOBIN 13.1 g/dl (12.0-15.5); LYMPH # 2.5 10^3/uL (1.5-5.0); MEAN CORPUSCULAR HEMOGLOBIN 29.9 pg (27.0-33.0); MEAN CORPUSCULAR HGB CONC 33.7 g/dl (32.0-36.5); MEAN CORPUSCULAR VOLUME 88.8 fl (80.0-96.0); MONO # 0.7 10^3/uL (0.0-0.8); MONO % 8.3 % (2.0-8.0); NEUTROPHILS % 59.1 % (36.0-66.0); PLATELET COUNT, AUTOMATED 238 10^3/uL (150-450); RED BLOOD COUNT 4.38 10^6/uL (4.00-5.40); WHITE BLOOD COUNT 8.5 10^3/uL (4.0-10.0)
[2024-02-24 12:27] LABS: ALBUMIN 3.6 G/DL (3.2-5.2); ALKALINE PHOSPHATASE 103 U/L (35-104); ALT/SGPT 20 U/L (7.0-40); AST/SGOT 13 U/L (<34); BILIRUBIN,TOTAL 0.8 MG/DL (0.3-1.2); BLOOD UREA NITROGEN 30 MG/DL (9-23); CALCIUM LEVEL 9.3 MG/DL (8.3-10.6); CARBON DIOXIDE LEVEL 28 MMOL/L (20-31); CHLORIDE LEVEL 105 MMOL/L (98-107); CREATININE FOR GFR 0.95 MG/DL (0.55-1.30); GLOMERULAR FILTRATION RATE > 60.0 (>39); GLUCOSE, FASTING 170 MG/DL (74-106); MAGNESIUM LEVEL 1.9 MG/DL (1.8-2.4); POTASSIUM SERUM 3.7 MMOL/L (3.5-5.1); SODIUM LEVEL 142 MMOL/L (136-145); TOTAL PROTEIN 6.7 G/DL (5.7-8.2)
[2024-02-24] MEDS: ATORVASTATIN 20 MG TAB PO SCH (20:52)
[2024-02-24] MEDS: BISACODYL 5MG TAB PO SCH (20:52)
[2024-02-24] MEDS: LORATADINE 10 MG TAB PO SCH (20:52)
[2024-02-25 03:30] VITALS: BP 144/60; TEMP 97.3; O2SAT 94
[2024-02-25 04:00] VITALS: BP_SYST 144; BP_SYST 150; BP_DIAS 60; BP_DIAS 61; BP_DIAS 70
[2024-02-25 07:02] LABS: BASO % 0.5 % (0.0-1.0); EOS # 0.2 10^3/uL (0.0-0.5); EOS % 2.4 % (0.0-3.0); HEMOGLOBIN 13.1 g/dl (12.0-15.5); LYMPH # 2.5 10^3/uL (1.5-5.0); LYMPH % 33.2 % (24.0-44.0); MEAN CORPUSCULAR HEMOGLOBIN 30.1 pg (27.0-33.0); MEAN CORPUSCULAR HGB CONC 33.6 g/dl (32.0-36.5); MEAN CORPUSCULAR VOLUME 89.7 fl (80.0-96.0); MONO # 0.6 10^3/uL (0.0-0.8); MONO % 8.5 % (2.0-8.0); NEUTROPHILS # 4.1 10^3/uL (1.5-8.5); NEUTROPHILS % 55.1 % (36.0-66.0); PLATELET COUNT, AUTOMATED 227 10^3/uL (150-450); RED BLOOD COUNT 4.35 10^6/uL (4.00-5.40); WHITE BLOOD COUNT 7.4 10^3/uL (4.0-10.0)
[2024-02-25 07:25] LABS: ALBUMIN 3.4 G/DL (3.2-5.2); ALKALINE PHOSPHATASE 99 U/L (35-104); ALT/SGPT 18 U/L (7.0-40); AST/SGOT 10 U/L (<34); BILIRUBIN,TOTAL 0.7 MG/DL (0.3-1.2); BLOOD UREA NITROGEN 27 MG/DL (9-23); CALCIUM LEVEL 9.1 MG/DL (8.3-10.6); CARBON DIOXIDE LEVEL 26 MMOL/L (20-31); CHLORIDE LEVEL 105 MMOL/L (98-107); CREATININE FOR GFR 0.96 MG/DL (0.55-1.30); GLOMERULAR FILTRATION RATE > 60.0 (>39); GLUCOSE, FASTING 231 MG/DL (74-106); POTASSIUM SERUM 3.8 MMOL/L (3.5-5.1); SODIUM LEVEL 140 MMOL/L (136-145); TOTAL PROTEIN 6.4 G/DL (5.7-8.2)
[2024-02-25] MEDS: ANEXSIA, NORCO 7.5MG/325MG TABLET(HYDROCODONE/APAP) PO PRN (10:10)
[2024-02-25] MEDS ORDERED: SENNA 8.6 MG TAB (SENOKOT) PO PRN (10:45)
[2024-02-25 11:57] VITALS: BP 121/52; TEMP 97.7; O2SAT 98
[2024-02-25 19:51] VITALS: BP 132/76; TEMP 97.5; O2SAT 98
[2024-02-25] MEDS: LEVEMIR (INSULIN DETEMIR) 1 UNITS/0.01ML SC SCH (21:14)
[2024-02-26 04:34] VITALS: BP 122/46; TEMP 97.3; O2SAT 96
[2024-02-26 12:00] VITALS: BP 145/66; TEMP 97.3; O2SAT 98
[2024-02-26] MEDS: NYSTATIN 100,000 UNITS/GM TOPICAL PWD 15GM TOP SCH (12:41)
[2024-02-26 20:06] VITALS: BP 143/67; TEMP 97.5; O2SAT 97
[2024-02-26 20:49] VITALS: BP 143/67
[2024-02-26] MEDS: LIDOCAINE 5% (LIDODERM) PATCH TD PRN (23:16)
[2024-02-27 04:00] VITALS: BP 140/65; TEMP 97.7; O2SAT 97
== END 2024-02-27 12:38 | disposition home or self-care (01) ==
LOC: M MSPAV 19:02 → INTOOBSV 19:02
PROVIDERS: ADMIT Student in an Organized Health Care Education/Training Program; ATTEND Internal Medicine
DX: R55 Syncope and collapse (principal); R29.6 Repeated falls; M54.50 Low back pain, unspecified; M79.604 Pain in right leg; M79.605 Pain in left leg; Z98.890 Other specified postprocedural states; E11.40 Type 2 diabetes mellitus with diabetic neuropathy, unspecified; I10 Essential (primary) hypertension; E78.5 Hyperlipidemia, unspecified; K59.00 Constipation, unspecified; Z86.711 Personal history of pulmonary embolism; F41.1 Generalized anxiety disorder; F33.9 Major depressive disorder, recurrent, unspecified; K21.9 Gastro-esophageal reflux disease without esophagitis; D50.9 Iron deficiency anemia, unspecified; J44.9 Chronic obstructive pulmonary disease, unspecified; R91.8 Other nonspecific abnormal finding of lung field; J30.9 Allergic rhinitis, unspecified; G47.33 Obstructive sleep apnea (adult) (pediatric); G43.909 Migraine, unspecified, not intractable, without status migrainosus; Z95.0 Presence of cardiac pacemaker; Z86.718 Personal history of other venous thrombosis and embolism; Z87.891 Personal history of nicotine dependence; Z80.0 Family history of malignant neoplasm of digestive organs; Z82.61 Family history of arthritis; Z91.048 Other nonmedicinal substance allergy status; Z91.040 Latex allergy status; Z88.1 Allergy status to other antibiotic agents; Z88.5 Allergy status to narcotic agent; Z88.8 Allergy status to other drugs, medicaments and biological substances; Z79.899 Other long term (current) drug therapy; Z79.01 Long term (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 anticoagulants; Z79.4 Long term (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; Z79.51 Long term (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 inhaled steroids
CPT/HCPCS: 36415; 80048; 80053; 83735; 84100; 84145; 84443; 85025; 85027; 93005; 94640; 97116; 97161; 97165; 97535; G0378; G0379; J1815

== ENCOUNTER → 2025-01-30 | Outpatient (REF) | payer MEDICARE, MEDICAID ==
[~2025-01-30] MED LIST changes: +ACET-1515 PO; +ACET-1592 PO; -ACET1TAB37 PO; -ACET650T15 PO; -ADV500INH INH; +ADVA1AER10 INH; +AMIT10TA11 PO; -AMIT10TA7 PO; +AMMO12CR4 TOP; -AMMO12CR7 TOP; +GLIP-318 PO; +GLIP-320 PO; -GLIP10TA18 PO; -GLIP5TAB20 PO; +LIDO1ADH93 TD; +LISI40TA10 PO; -LISI40TA4 PO; -LOPE-26 PO; -NYST-13 TOP; +NYST0.1C TOP; -PRAV40TA2 PO; +PRAV40TA85 PO; +PREG-35 PO; -PREG100CA PO; -PREG50CA PO; +PREG50CA87 PO; +[UNRECOGNIZED DRUG - CODE] PO
== END ==
LOC: M LAB REF 12:12
PROVIDERS: ATTEND Student in an Organized Health Care Education/Training Program
DX: R10.30 Lower abdominal pain, unspecified (principal)

== ENCOUNTER → 2025-02-11 | Outpatient (REF) | payer MEDICARE, MEDICAID ==
[2025-02-11 15:35] LABS: CREATININE, URINE 30.4 MG/DL; MALB URINE SIEMENS < 3.0 MG/L
[2025-02-11 15:56] LABS: PLATELET COUNT, AUTOMATED 229 10^3/uL (150-450)
[2025-02-11 16:00] LABS: ALT/SGPT 35.0 U/L (7.0-40); AST/SGOT 31.0 U/L (<34); CALCIUM LEVEL 8.8 MG/DL (8.3-10.6); CARBON DIOXIDE LEVEL 30.0 MMOL/L (20-31); CHLORIDE LEVEL 107.0 MMOL/L (98-107); CHOLESTEROL LEVEL 129.0 MG/DL (<200); CHOLESTEROL RISK RATIO 2.97 (<5); CREATININE FOR GFR 0.76 MG/DL (0.55-1.30); GLOMERULAR FILTRATION RATE 82.7 (>39); LDL CHOLESTEROL 75.3 MG/DL (<100); NON-HDL-C 85.7 MG/DL; POTASSIUM SERUM 4.5 MMOL/L (3.5-5.1); SODIUM LEVEL 145.0 MMOL/L (136-145); TRIGLYCERIDES LEVEL 52.0 MG/DL (<150)
[2025-02-11 16:12] LABS: INR 1.02
[2025-02-11 16:45] LABS: ESTIMATED AVERAGE GLUCOSE 154.0 MG/DL (60-110)
== END ==
LOC: M LAB REF 13:50
PROVIDERS: ATTEND Student in an Organized Health Care Education/Training Program
DX: E11.9 Type 2 diabetes mellitus without complications (principal); Z79.4 Long term (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; I10 Essential (primary) hypertension; E78.2 Mixed hyperlipidemia; Z86.711 Personal history of pulmonary embolism

== ENCOUNTER → 2025-02-21 | Outpatient (CLI) | payer MEDICARE, MEDICAID ==
[2025-02-21 16:09] LABS: IRON (FE) 78.0 UG/DL (50-170); PERCENT SATURATION 29.8 % (13.2-45.0)
== END ==
LOC: M PLAIMG 11:52
PROVIDERS: ATTEND Student in an Organized Health Care Education/Training Program
DX: G89.29 Other chronic pain (principal); D64.9 Anemia, unspecified; M54.42 Lumbago with sciatica, left side; M47.816 Spondylosis without myelopathy or radiculopathy, lumbar region